=== PATIENT | female | born 1980 | race Caucasian/White ===

== ENCOUNTER 2020-05-28 15:54 | Outpatient (REF) | payer MEDICAID, SELFPAY ==
[2020-05-28 15:55] LABS: ALT 26 U/L (14-59); AST 11 U/L (15-37); Alkaline Phosphatase 61 U/L (46-116); Anion Gap 11.8 mmol/L (3-11); BUN 12 mg/dL (7-18); CO2 26.2 mmol/L (21.0-32.0); CREATININE 0.7 mg/dL (0.55-1.02); Calcium 9.4 mg/dL (8.5-10.1); Calculated LDL 95 mg/dL (<100); Chloride 98 mmol/L (98-107); Cholesterol 184 mg/dL (<200); Glucose 329 mg/dL (74-106); HDL Cholesterol 33 mg/dL (40-60); Potassium 3.6 mmol/L (3.5-5.1); Sodium 136 mmol/L (136-145); Total Protein 7.4 g/dL (6.4-8.2); Triglyceride 283 mg/dL (<150)
== END 2020-05-28 15:55 | disposition home or self-care (01) ==
LOC: NCHCN 15:54
PROVIDERS: Visit Provider Nurse Practitioner Family
DX: I10 Essential (primary) hypertension (principal); E11.9 Type 2 diabetes mellitus without complications; F32.9 Major depressive disorder, single episode, unspecified
CPT/HCPCS: 80053; 80061

== ENCOUNTER 2021-07-25 23:26 | Outpatient (CLI) | payer MEDICAID, SELFPAY ==
[2021-07-25 17:28] LABS: CREATININE 0.8 mg/dL (0.55-1.02)
== END 2021-07-25 23:27 | disposition home or self-care (01) ==
LOC: LBO 23:27
PROVIDERS: Visit Provider Nurse Practitioner Family
DX: U07.1 COVID-19 (principal)
CPT/HCPCS: 36415; 82565

== ENCOUNTER 2021-12-30 19:15 | Outpatient (REF) | payer MEDICAID, SELFPAY ==
[2021-12-30 19:12] LABS: HCT 41.9 % (36.0-46.0); HGB 14.8 g/dL (11.2-15.7); MCH 31.2 pg (27.0-33.0); MCHC 35.3 % (32.0-36.0); MCV 88 fL (80-95); MPV 9.5 fL (8.0-11.0); Platelet Count 262 10^3/uL (130-400); RBC 4.75 10^6/uL (3.93-5.22); RDW 11.9 % (11.7-14.6); RDW-SD 37.5 fL; WBC 11.51 10^3/uL (4.4-10.8)
[2021-12-30 19:46] LABS: ALT 22 U/L (14-59); AST 10 U/L (15-37); Albumin 3.7 g/dL (3.4-5.0); Alkaline Phosphatase 57 U/L (46-116); Anion Gap 9.8 mmol/L (3-11); BUN 14 mg/dL (7-18); Bilirubin, Total 0.5 mg/dL (0.2-1.0); CO2 28.2 mmol/L (21.0-32.0); CREATININE 0.9 mg/dL (0.55-1.02); Calcium 9.6 mg/dL (8.5-10.1); Chloride 96 mmol/L (98-107); Cholesterol 202 mg/dL (<200); Estimated GFR 81.35 (mL/min/1.73m2); Glucose 383 mg/dL (74-106); HDL Cholesterol 34 mg/dL (40-60); Potassium 3.8 mmol/L (3.5-5.1); Sodium 134 mmol/L (136-145); TSH (W/Ref FT4) 2.25 uIU/mL (0.36-3.74); Total Protein 7.3 g/dL (6.4-8.2); Triglyceride 708 mg/dL (<150)
[2021-12-30 20:00] LABS: LDL CHOLESTEROL 89 mg/dL (<100)
[2022-01-01 05:15] LABS: Vitamin D 25 Total 28.1 ng/mL (30-100)
== END 2021-12-30 19:16 | disposition home or self-care (01) ==
LOC: NCHCN 19:15
PROVIDERS: PCP Nurse Practitioner Family; Visit Provider Nurse Practitioner Family
DX: Z00.00 Encounter for general adult medical examination without abnormal findings (principal)
CPT/HCPCS: 80053; 80061; 82306; 83721; 85027; 84443

== ENCOUNTER → 2022-01-08 02:42 | Outpatient (CLI) | payer MEDICAID, SELFPAY ==
--- NOTE | 2022-01-08 12:00 | DI.MAMMO_ITS ---
Exam(s) MAMMO SCREENING EXAM: MAMMO SCREENING CLINICAL HISTORY: SCREENING, Z12.39, FAMILY H/O BREAST CA, Z80.3 TECHNIQUE: Mammograms were interpreted according to the usual protocol including computer analysis w [employer] CAD system, tomosynthesis and C-view imaging. COMPARISON: No exams were available for comparison. Baseline examination. FINDINGS: The breasts are composed of scattered fibroglandular densities, Breast Density category B. No suspicious masses or suspicious microcalcifications are seen. No skin thickening or abnormal axillary lymph nodes are seen. IMPRESSION: BI-RADS Category 1, Negative mammogram Yearly screening mammography is recommended. Breast Density - Category B, scattered fibroglandular densities. A negative radiographic report should not delay biopsy if a dominant or clinically suspicious mass is present. Up to ten percent of cancers are not identified on mammography. A negative report may reinforce clinical impression. Adenosis and dense breasts may obscure an underlying neoplasm. False positive reports average 6 to 10%. Patient will receive a letter notifying them of these results.
== END ==
PROVIDERS: PCP Nurse Practitioner Family; Visit Provider Nurse Practitioner Family
DX: Z12.31 Encounter for screening mammogram for malignant neoplasm of breast (principal)
CPT/HCPCS: 77063; 77067

== ENCOUNTER 2022-01-29 14:48 | Outpatient (REF) | payer MEDICAID, SELFPAY ==
[2022-01-29 15:13] LABS: Calculated LDL 86 mg/dL (<100); Cholesterol 196 mg/dL (<200); HDL Cholesterol 38 mg/dL (40-60); Triglyceride 360 mg/dL (<150)
== END 2022-01-29 14:49 | disposition home or self-care (01) ==
LOC: NCHCN 14:48
PROVIDERS: PCP Nurse Practitioner Family; Visit Provider Nurse Practitioner Family
DX: E78.1 Pure hyperglyceridemia (principal)
CPT/HCPCS: 80061

== ENCOUNTER 2022-04-15 15:04 | Outpatient (REF) | payer MEDICAID, SELFPAY ==
[2022-04-15 19:09] LABS: Anion Gap 10.8 mmol/L (3-11); BUN 11 mg/dL (7-18); CO2 28.2 mmol/L (21.0-32.0); CREATININE 0.8 mg/dL (0.55-1.02); Calcium 9.6 mg/dL (8.5-10.1); Chloride 98 mmol/L (98-107); Estimated GFR 93.12 (mL/min/1.73m2); Glucose 282 mg/dL (74-106); Potassium 3.9 mmol/L (3.5-5.1); Sodium 137 mmol/L (136-145)
[2022-04-15 19:47] LABS: Vitamin D 25 Total 30.3 ng/mL (30-100)
== END 2022-04-15 15:05 | disposition home or self-care (01) ==
LOC: NCHCN 15:04
PROVIDERS: PCP Nurse Practitioner Family; Visit Provider Nurse Practitioner Family
DX: E11.9 Type 2 diabetes mellitus without complications (principal); I10 Essential (primary) hypertension; E55.9 Vitamin D deficiency, unspecified
CPT/HCPCS: 80048; 82306

== ENCOUNTER 2022-09-11 12:31 | Outpatient (REF) | payer MEDICAID, SELFPAY ==
--- NOTE | 2022-09-11 11:30 | PAPFT_PTH ---
PATIENT: Sarah Moncada LOC: [facility]#:[id number] AGE/SX: 42/F ROOM: RE09/11/[address]: ROSALVA VALDEZ : 1980 BED: DIS: 09/11/2022 SPEC #: [id number] RECD: 09/15/22 17:07 STATUS: CARLOS REQ #: [id number] JEFF: 09/11/22 11:[address]: Rosalva Valdez DEPT: [facility] Cytology RECD BY: Shirley Hadley ENTERED: 09/15/22 17:08 SP TYPE: PAPFT OTHR DR: Trice Holman Tissues: 1 - CX/ENDOCX FOR PAP SMEARS Procedures: PAP THIN PREP/[facility] Screening HPV DNA PROBE Comments: [id number] (HPV 16 & 18/45) (CHLAMYDIA/GC)
[2022-09-11 19:53] LABS: Vitamin D 25 Total 35.8 ng/mL (30-100)
[2022-09-14 09:55] LABS: HIV-1/2 Ag & Ab Screen Negative (Negative)
[2022-09-14 10:14] LABS: Hepatitis C Ab w Rflx HCV PCR Negative (Negative); Syphilis Serology (RPR) Negative (Negative)
[2022-09-16 14:36] LABS: Chlamydia Result Negative (Negative); GC Result Negative (Negative)
== END 2022-09-11 12:32 | disposition home or self-care (01) ==
LOC: NCHCN 12:31
PROVIDERS: PCP Nurse Practitioner Family; Visit Provider Nurse Practitioner Family
DX: Z11.3 Encounter for screening for infections with a predominantly sexual mode of transmission (principal); Z11.4 Encounter for screening for human immunodeficiency virus [HIV]; Z12.4 Encounter for screening for malignant neoplasm of cervix; Z11.59 Encounter for screening for other viral diseases; E55.9 Vitamin D deficiency, unspecified; Z11.51 Encounter for screening for human papillomavirus (HPV); R87.810 Cervical high risk human papillomavirus (HPV) DNA test positive
CPT/HCPCS: 82306; 86803; 87389; 87491; 87591; 88142; 86592; 87624

== ENCOUNTER 2023-01-29 15:13 | Outpatient (REF) | payer MEDICAID, SELFPAY ==
--- NOTE | 2023-01-29 11:10 | CER_PTH ---
PATIENT: Sarah Moncada LOC: [facility] U#:[id number] AGE/SX: 42/F ROOM: RE01/29/[address]: Jennie Villegas MD : 1980 BED: DIS: 01/29/2023 SPEC #: [id number] RECD: 01/29/23 18:01 STATUS: CARLOS REArabella #: [id number] JEFF: 01/29/23 11:[address]: Jennie Villegas DEPT: Surgical Specimen RECD BY: Shirley Hadley ENTERED: 01/29/23 18:02 SP TYPE: CER OTHR DR: Trice Holman Tissues: 1 - CERVICAL BIOPSY Procedures: GROSS AND MICRO LEVEL 4 IMMUNOPEROXIDASE STAIN Comments: [id number]
== END 2023-01-29 15:14 | disposition home or self-care (01) ==
LOC: LBN 15:13
PROVIDERS: PCP Nurse Practitioner Family; Visit Provider Obstetrics & Gynecology
DX: Z12.4 Encounter for screening for malignant neoplasm of cervix (principal); C44.92 Squamous cell carcinoma of skin, unspecified
CPT/HCPCS: 88305; 88361

== ENCOUNTER 2023-04-23 15:17 | Outpatient (REF) | payer MEDICAID, SELFPAY ==
[2023-04-23 16:36] LABS: ALT 15 U/L (14-59); AST 10 U/L (15-37); Albumin 3.6 g/dL (3.4-5.0); Alkaline Phosphatase 51 U/L (46-116); Anion Gap 7.1 mmol/L (3-11); BUN 9 mg/dL (7-18); Bilirubin, Total 0.5 mg/dL (0.2-1.0); CO2 26.9 mmol/L (21.0-32.0); CREATININE 0.9 mg/dL (0.55-1.02); Calcium 9.4 mg/dL (8.5-10.1); Calculated LDL 122 mg/dL (<100); Chloride 103 mmol/L (98-107); Cholesterol 203 mg/dL (<200); Estimated GFR 80.34 (mL/min/1.73m2); Glucose 246 mg/dL (74-106); HDL Cholesterol 44 mg/dL (40-60); Magnesium 1.9 mg/dL (1.8-2.4); Potassium 4.2 mmol/L (3.5-5.1); Sodium 137 mmol/L (136-145); Total Protein 7.3 g/dL (6.4-8.2); Triglyceride 187 mg/dL (<150)
[2023-04-23 17:02] LABS: Hemoglobin A1C 7.2 % (<5.7)
== END 2023-04-23 15:18 | disposition home or self-care (01) ==
LOC: NCHCN 15:17
PROVIDERS: PCP Nurse Practitioner Family; Visit Provider Nurse Practitioner Family
DX: E11.9 Type 2 diabetes mellitus without complications (principal); R79.89 Other specified abnormal findings of blood chemistry; S46.111A Strain of muscle, fascia and tendon of long head of biceps, right arm, initial encounter; S46.112A Strain of muscle, fascia and tendon of long head of biceps, left arm, initial encounter
CPT/HCPCS: 80053; 80061; 83036; 83735

== ENCOUNTER → 2023-07-07 02:38 | Outpatient (CLI) | payer MEDICAID, SELFPAY ==
--- NOTE | 2023-07-07 10:35 | DI.MRI_ITS ---
Exam(s) MR UPPER JOINT RT WO EXAM: MR UPPER JOINT RT WO CLINICAL HISTORY: ? BICEP TENDON ISSUE OR ROTATOR CUFF TEAR,REDUCTION IN RANGE OF MOTION,R29.. TECHNIQUE: Multiplanar multisequence MRI was performed. COMPARISON: None. FINDINGS: BONES: There is no fracture or contusion pattern. JOINTS:The acromioclavicular joint is normal. The glenohumeral joint is normal. TENDONS: Supraspinatus: Unremarkable. Infraspinatus: Unremarkable. Subscapularis: Unremarkable. Teres Minor: Unremarkable. Biceps and [place]: Unremarkable. MUSCLES: Unremarkable. GLENOID LABRUM: Unremarkable on this noncontrast examination. SOFT TISSUES: Unremarkable. OTHER: Subacromial and subdeltoid bursae shows a minimal amount of fluid. Small amount of fluid is n oted in the subcoracoid bursa. . IMPRESSION: No evidence of biceps tendon tear or rotator cuff tear. DATA REPOSITORY:
--- NOTE | 2023-07-07 11:12 | DI.MRI_ITS ---
Exam(s) MR UPPER JOINT LT WO EXAM: MR UPPER JOINT LT WO CLINICAL HISTORY: ? BICEP TENDON ISSUE OR ROTATOR CUFF TEAR,REDUCTION RANGE OF MOTION,R29.898. TECHNIQUE: Multiplanar multisequence MRI was performed. COMPARISON: None. FINDINGS: BONES: There is no fracture or contusion pattern. JOINTS:The acromioclavicular joint is normal. The glenohumeral joint is normal. TENDONS: Supraspinatus: Unremarkable. Infraspinatus: Unremarkable. Subscapularis: Unremarkable. Teres Minor: Unremarkable. Biceps and [place]: Unremarkable. MUSCLES: Unremarkable. GLENOID LABRUM: Unremarkable on this noncontrast examination. SOFT TISSUES: Unremarkable. OTHER: Subacromial and subdeltoid bursae shows no significant fluid.. Small amount of fluid in subc oracoid bursa. IMPRESSION: No evidence of biceps tendon tear or other rotator cuff tear. DATA REPOSITORY:
== END ==
PROVIDERS: PCP Nurse Practitioner Family; Visit Provider Nurse Practitioner Family
DX: R29.898 Other symptoms and signs involving the musculoskeletal system (principal)
CPT/HCPCS: 73221

== ENCOUNTER → 2023-08-04 01:57 | Outpatient (CLI) | payer MEDICAID, SELFPAY ==
--- NOTE | 2023-08-04 08:18 | DI.MRI_ITS ---
Exam(s) MR CERVICAL SPINE WO EXAM: MR CERVICAL SPINE WO CLINICAL HISTORY: M79.621Pain in rt upper arm,M79.622 Pain lt upper arm; bilat weakness arms, TECHNIQUE: Multiplanar multisequence MRI of the cervical spine was performed without intravenous con trast. COMPARISON: No exams were available for comparison FINDINGS: BONES: Vertebral body heights are maintained. Alignment is normal. Bone marrow signal intensity is wi thin normal limits. Sinuses: Mucosal thickening of the maxillary sinuses, right greater than left. CERVICAL CORD: Craniovertebral junction is unremarkable. The cervical cord is normal size and signal intensity. Visualized portions of the brainstem and cerebellum are unremarkable. SOFT TISSUES: Unremarkable. C2-3: No disc herniation or bulge is identified. No evidence of neural foraminal narrowing. No signi ficant central canal stenosis. C3-4: Mild circumferential disc osteophytes. Mild neural foraminal narrowing. No significant central canal stenosis. C4-5: Prominent right sided disc osteophyte which contacts the anterior aspect of the cervical cord.. Bilateral moderate to severeneural foraminal narrowing. Mild central canal stenosis. Some CSF adilson ins posterior to the cord. C5-6: Mild broad-based disc osteophytes. Mild left neural foraminal narrowing.No evidence of neural foraminal narrowing. No significant central canal stenosis. C6-7: Mild disc osteophytes. No evidence of neural foraminal narrowing. No significant central canal stenosis. C7-T1: Mild disc osteophytes. No evidence of neural foraminal narrowing. No significant central nicho l stenosis. IMPRESSION: Multi level disc osteophytes, most prominent at C4-5 on the right which causes mild central canal joselito nosis as well as moderate to severe bilateral neural foraminal narrowing. DATA REPOSITORY:
== END ==
PROVIDERS: PCP Nurse Practitioner Family; Visit Provider Nurse Practitioner Family
DX: M79.622 Pain in left upper arm (principal); M79.621 Pain in right upper arm; M25.78 Osteophyte, vertebrae; M48.02 Spinal stenosis, cervical region; M99.71 Connective tissue and disc stenosis of intervertebral foramina of cervical region
CPT/HCPCS: 72141

== ENCOUNTER 2023-08-26 13:30 | Outpatient (CLI) | payer MEDICAID, SELFPAY ==
[2023-08-26 12:34] LABS: TSH 2.14 uIU/Ml (0.36-3.74)
== END 2023-08-26 13:31 | disposition home or self-care (01) ==
LOC: LBO 13:31
PROVIDERS: PCP Nurse Practitioner Family; Visit Provider Registered Nurse
DX: F33.1 Major depressive disorder, recurrent, moderate (principal)
CPT/HCPCS: 36415; 82306; 84443

== ENCOUNTER 2023-10-28 21:35 | Outpatient (REF) | payer MEDICAID, SELFPAY ==
[2023-10-28 16:34] LABS: Hemoglobin A1C 6.9 % (<5.7)
[2023-10-28 16:35] LABS: ALT 16 U/L (14-59); AST 8 U/L (15-37); Albumin 3.6 g/dL (3.4-5.0); Alkaline Phosphatase 66 U/L (46-116); BUN 13 mg/dL (7-18); Bilirubin, Total 0.34 mg/dL (0.2-1.0); CREATININE 0.9 mg/dL (0.55-1.02); Calcium 9.3 mg/dL (8.5-10.1); Chloride 102 mmol/L (98-107); Estimated GFR 80.34 (mL/min/1.73m2); Glucose 152 mg/dL (74-106); Potassium 4.7 mmol/L (3.5-5.1); Sodium 138 mmol/L (136-145); Total Protein 7.3 g/dL (6.4-8.2)
--- OUTSIDE RECORDS SUMMARY | 2023-10-28 21:38 | XMS_ITS | Encounter Summary ---
Author Organization [facility] [place] [address] Care Team Providers Care Fructose Loader Name Role Phone Carlos Alberto Ag MD Primary Care Provider Reason for Visit * Reason Onset Date Comments Medication Refill 11/16/2018 Encounter Details Date Type Department Care Team (Late st Contact Info) Description 11/16/2018 Refill [place] [address] Carlos Alberto Ag MD [facility] [address] [place] [address] Gastroesophageal reflux disease, esophagitis presence not specified; Essential hypertension Social History Tobacco Use Types Packs/Day Years Used Date Smoking Tobacco: Never Smokeless Tobacco: Never Alcohol Use Standard Drinks/Week Comments No 0 (1 standard drink = 0.6 oz pur e alcohol) rarely Sex and Gender Information Value Date Recorded Sex Assigned at Not on file Gender Identity Female 12/01/2018 2:55 PM EDT Sexual Orientation Not on file documented as of this encounter Plan of Treatment Not on file documented as of this encounter Visit Diagnoses Diagnosis Gastroesophageal reflux disease, esophagitis presence not specified Essential hypertension Unspecified essential hypertension documented in this encounter Care Teams Fructose Loader Relationship Specialty Start Date End Date Carlos Alberto Ag MD [facility] [address] [place] [address] PCP - General General Internal Medicine 04/26/17 10/31/19 documented as of this encounter
--- OUTSIDE RECORDS SUMMARY | 2023-10-28 21:38 | XMS_ITS | Continuity of Care Document ---
Author Organization [facility] Ambulatory Clinics Address [address] [place] [address] Care Team Providers Care Road Engineer Name Role Phone JESSY BUSH APRN Primary Care Physician Encounter [facility]BR [id number] Date(s): 09/08/23 - 09/08/23 [facility] Ambulatory Clinics [address] [place], [place] [address] Encounter Diagnosis Cervical spondylosis with radiculopathy(Discharge Diagnosis) - 09/08/23 Bilateral arm pain(Discharge Diagnosis) - 09/08/23 Pain in left arm(Discharge Diagnosis) - 09/08/23 Discharge Disposition: Home or Self Care Attending Physician: JOSE Lucas Allergies, Adverse Reactions, Alerts Substance Reaction Severity Status Seasonal Congestion Unknown Active Assessment and Plan Extracted from: Title:Office Visit Note Author:SAMI Lucas Date:09/08/23 1.??Cervical spondylosis wit h radiculopathy??M47.22 Ordered: cyclobenzaprine 5 mg oral tablet, See Instructions, PRN as needed for muscle spasm, 1 tab Oral at bedtime. May take up to TID PRN but use caution due to potential sedation., # 60 tab, 1 Refill(s), Pharmacy: [facility] ketorolac 10 mg oral tablet, 10 mg = 1 tab, Oral, QID, PRN as needed for pain, not to exceed 40 mg/day and 5 days duration for all dose forms, # 20 tab, 0 Refill(s), Pharmacy: [facility] ?? 2.??Bilateral arm pain??M79.601 Ordered: cyclobenzaprine 5 mg oral tablet, See Instructions, PRN as needed for muscle spasm, 1 tab Oral at bedtime. May take up to TID PRN but use caution due to potential sedation., # 60 tab, 1 Refill(s), Pharmacy: [facility] ketorolac 10 mg oral tablet, 10 mg = 1 tab, Oral, QID, PRN as needed for pain, not to exceed 40 mg/day and 5 days duration for all dose forms, # 20 tab, 0 Refill(s), Pharmacy: [facility] ?? The patient has been struggling with significant pain??localized to the bilateral biceps and deltoid area??particularly when she lifts her hands overhead or behind her.?? This is limiting her functioning and her family is actually helping her with bathing, grooming and dressing.?? She only recently??developed some mild discomfort in her posterior neck.?? The patient does have multilevel abnormalities in her cervical spine with most significant finding is at the C4-5 level where there is a??large right paracentral disc??osteophyte complex??causing??right lateral recess stenosis and moderate to severe bilateral neuroforaminal narrowing. ??It is very possible that this finding is contributing to her pain. ??However, her??discomfort is not in the classic dermatome pattern??of a cervical radiculopathy.?? On her physical examination she has very mild weakness of the bilateral biceps and deltoids however she does verbalize that??the strength testing causes pain so part of this weakness may be a pain response.?? We discussed options moving forward at this point.?? The patient is a diabetic so I would not recommend trialing her on oral steroids but we could trial her on a course of strong??NSAIDs for short period to see if that helps??at all with her pain.?? Given that she has??difficulty sleeping due to this pain I am also recommending trying a muscle relaxer at bedtime. ??She would like to try both of these.?? She was advised to take the ketorolac with food and to avoid other NSAIDs while taking that medication.?? We discussed that she may benefit from cervical epidural steroid injection.?I briefly mention that??surgical consideration for her problem could be considered but she is quite adamant that she would like that to be the last option and is not interested in surgery at this point.?? That is very reasonable especially because we are not completely certain the source of her discomfort. ??The patient does report that she has had MRIs of her shoulders that were unremarkable though I do not have this imaging or reports??at this time.?? I am also recommending a referral to neurology for second opinion regarding her arm discomfort.?? She??did??have a significant weight loss over the winter just before the development of the symptoms and a lot of her pain does seem to be muscular in the biceps and deltoids so I would appreciate??neurology's opinion. ??She is in agreement.?? She would like a referral to [facility] neurology in the pain clinic. ??I did encourage the patient to continue monitoring for progressive weakness??and if she does feel that??her weakness is progressing??but not due to pain she should return for??potential surgery. Plan: Ketorolac 10 mg 4 times a day for 5 days. Cyclobenzaprine 5 mg at bedtime. ??This can be increased to 3 times a day if needed??but she was cautioned regarding risk of sedation. Referral to [facility] neurology. Referral to [facility] pain clinic. ? Medications Abilify 2 mg oral tablet 2 mg = 1 tab, Oral, Daily, # 30 tab, 0 Refill(s) Start Date: 09/01/23 Status: Ordered ARIPiprazole 5 mg oral tablet 5 mg = 1 tab, Oral, Daily, # 30 tab, 0 Refill(s) Start Date: 09/01/23 Status: Ordered buPROPion 150 mg =, Oral, Daily, 0 Refill(s) Start Date: 09/08/23 Status: Ordered buPROPion 300 mg/24 hours (XL) oral tablet, extended release 300 mg = 1 tab, Oral, Daily, # 30 tab, 0 Refill(s) Start Date: 09/01/23 Status: Ordered cyclobenzaprine 5 mg oral tablet See Instructions, PRN as needed for muscle spasm, 1 tab Oral at bedtime. May take up to TID PRN butuse caution due to potential sedation., # 60 tab, 1 Refill(s), Pharmacy: [id number] Start Date: 09/08/23 Status: Ordered depo-subQ provera 104 mg/0.65 mL subcutaneous suspension 0 Refill(s) Start Date: 09/01/23 Status: Ordered escitalopram 20 mg oral tablet 20 mg = 1 tab, Oral, Daily, # 30 tab, 0 Refill(s) Start Date: 09/01/23 Status: Ordered Farxiga 5 mg oral tablet 5 mg = 1 tab, Oral, Daily, # 30 tab, 0 Refill(s) Start Date: 09/01/23 Status: Ordered FreeStyle Lite Test Strips Supply, See instructions, # 1 EA, 0 Refill(s) Start Date: 09/01/23 Status: Ordered ketorolac 10 mg oral tablet 10 mg = 1 tab, Oral, QID, PRN as needed for pain, not to exceed 40 mg/day and 5 days duration for all dose forms, # 20 tab, 0 Refill(s), Pharmacy: [facility] Start Date: 09/08/23 Status: Ordered lisinopril 10 mg oral tablet 10 mg = 1 tab, Oral, Daily, # 30 tab, 0 Refill(s) Start Date: 09/01/23 Status: Ordered metFORMIN 500 mg oral tablet, extended release 1,000 mg = 2 tab, Oral, Daily, # 30 tab, 0 Refill(s) Start Date: 09/01/23 Status: Ordered omeprazole 20 mg oral delayed release capsule 20 mg = 1 cap, Oral, Daily, # 30 cap, 0 Refill(s) Start Date: 09/01/23 Status: Ordered triamcinolone acetonide-dimethicone 0.1%-5% topical kit 1 castro, Topical, BID, apply a thin film to the affected areas, # 1 EA, 0 Refill(s) Start Date: 09/01/23 Status: Ordered Problem List Condition Confirmation Course Effective Dates Status Health Status Informant Anxiety disorder Confirmed Active Cervical spondylosis with radiculopathy Confirmed Active Chronic depression Confirmed Active Disorder of musculoskeletal system Confirmed Active Eczema Confirmed Active Essential hypertension Confirmed Active Pain in left foot Confirmed Active Gastroesophageal reflux disease without esophagitis Confirmed Active Hip pain Confirmed Active Limitation of joint movement Confirmed Active Major depression Confirmed Active Migraine Confirmed Active Mood swings Confirmed Active Obstructive sleep apnea syndrome Confirmed Active Bilateral arm pain Confirmed Active Pure hyperglyceridemia Confirmed Active RhD negative Confirmed Active Suicidal thoughts Confirmed Active Type 2 diabetes mellitus without complication Confirmed Active Vitamin D deficiency Confirmed Active Procedures Procedure Date Related Diagnosis Body Site Status section Complete d Cholecystectomy Completed Vital Signs Most recent to oldest [Reference Range]: 1 Peripheral Pulse Rate [60-100 bpm] 108 b pm *HI* (09/08/23 11:01 AM) Respiratory Rate [12-24 br/min] 20 br/mi n (09/08/23 11:01 AM) Blood Pressure [90-140/60-90 mmHg] 124/7 4mmHg (09/08/23 11:01 AM) Mean Arterial Pressure, Cuff [65-140 mmH g] 91 mmHg (09/08/23 11:01 AM) Weight 83.5 kg (09/08/23 11:01 AM) Weight Measured (lbs) 184.086 lb (09/08/23 11: AM) Weight Dosing 83.500 kg (09/08/23 11: AM) Wesley Body Weight Calculated 54.7 kg (09/08/23 11:01 AM) Height 162.56 cm (09/08/23 11:01 AM) Height/Length Measured (inches) 64 inch (09/08/23 11:01 AM) BSA Measured 1.94 m2 (09/08/23 11:01 AM) Body Mass Index 31.6 kg/m2 (09/08/23 11:01 AM) Social History Social History Type Response Tobacco Current everyday tob acco user Tobacco Use:. Sex Physician Outpatient Note * JOSE Lucas: PERFORM Event Display: Office Clinic Note Physician Authored Date: [id number] MIGDALIA GOLDSMITH Ninoska :1980 Age:43 years Sex:Female Visit Date:09/08/2023 Primary Care Physician: JESSY BUSH APRN History of Present Illness The patient presents for evaluation of her bilateral arm pain.?? She states that at the beginning of the year she noticed that it was getting difficult to put her arm spine her head due to pain in her arms.?? This started in the left arm but it has progressed to the right as well.?? She has had consistent pain affecting the bilateral bicep area. ??She states that she does not have the pain in hershoulders, her lower arms or hands. ??She did not have any neck discomfort until just recently and this is only mild.?? This affects her mid??posterior neck.?? However, the bilateral upper arm pain is significant.?? She states that??her arms do feel weak frequently as well.?? She states that??the pain is severe if she lifts her??arms overhead such as to do her hair??or wash her hair??as well as reach behind her. ??This makes getting dressed difficult so her and her daughters actually help her with bathing, grooming and??getting dressed at times.?? She states that when she has to shaveunder her arms she actually has to rest her arm up against the wall??in order to do so.?? Her arm pain increases with driving for any distance.?? She also has difficulty sleeping as she cannot find acomfortable position for her arms.?? Patient has tried taking ibuprofen and Tylenol and she did find that was somewhat useful initially but they??no longer seem to be helping.?? She was applying Carmita back and body??cream??to her arms which again was helpful initially but now is not helpful.?? She did do physical therapy including which she describes??to be cervical traction therapy that she is also doing at home with??a cervical traction collar with unfortunately no improvement.?? The patient denies any known injury to her neck or arms.?? Regards to her medical history she is being treated for hypertension as well as diabetes. ??She states she was diagnosed with diabetes after she had her??11-year-old??daughter.?? She states that??her last A1c was finally below 7% which is the first timeit has ever been this low.?? She states that over the winter she lost??quite a bit of weight going f rom 4 and 32 pounds to 184 intentionally and that is likely why her diabetes has improved.?? Additionally, the patient does mention that she gets frequent numbness and tingling affecting both her hands,??particularly the middle fingers.?? She has been struggling this for??over 10 years and actuallyunderwent bilateral carpal tunnel release and she did have some improvement in the symptoms for short period of time and then they returned to baseline and have been present ever since. ??She denies any weakness of her hands and denies any issues with dexterity in her hands. 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 She is not noticed any significant changes to her balance though she has always had some difficulty with herbalance. ??She denies any falls. ?? Review of Systems Relevant ROS discussed in HPI Physical Exam GENERAL:?General Appearance:?pleasant, age appropriate in no apparent distress.?? MUSCULOSKELETAL:?Musculoskeletal:??Cervical spine ROM mildly limited with bilateral rotation. No tenderness??over cervical spine??or bilateral AC joints. No??paraspinal muscle tenderness. NEUROLOGICAL:?Neurological:?Negative Lhermitte's.?Motor:??Strength 4+/5 bilateral bicep flexion and deltoid abduction. ??Strength 5/5 with bilateral triceps flexion, wrist extension, hand abduction, hip flexion, knee flexion and extension, ankle dorsiflexion and plantar flexion.?Reflexes:?2+ and symmetric in biceps, knees and ankles bilaterally. ??1+ bilateraltricep and brachioradialis jerks. Negative Elmer's bilaterally.? Tone: Normal ? Gait: Normal.?? The patient is able to balance on each foot independently without any difficulty. ??She is able to complete tandem walking with??only slight unsteadiness. Assessment/Plan 1.??Cervical spondylosis with radiculopathy??M47.22 Ordered: cyclobenzaprine 5 mg oral tablet, See Instructions, PRN as needed for muscle spasm, 1 tab Oral at bedtime. May take up to TID PRN but use caution due to potential sedation., # 60 tab, 1 Refill(s), Pharmacy: [facility] ketorolac 10 mg oral tablet, 10 mg = 1 tab, Oral, QID, PRN as needed for pain, not to exceed 40 mg/day and 5 days duration for all dose forms, # 20 tab, 0 Refill(s), Pharmacy: [facility] ?? 2.??Bilateral arm pain??M79.601 Ordered: cyclobenzaprine 5 mg oral tablet, See Instructions, PRN as needed for muscle spasm, 1 tab Oral at bedtime. May take up to TID PRN but use caution due to potential sedation., # 60 tab, 1 Refill(s), Pharmacy: [facility] ketorolac 10 mg oral tablet, 10 mg = 1 tab, Oral, QID, PRN as needed for pain, not to exceed 40 mg/day and 5 days duration for all dose forms, # 20 tab, 0 Refill(s), Pharmacy: [facility] ?? The patient has been struggling with significant pain??localized to the bilateral biceps and deltoid area??particularly when she lifts her hands overhead or behind her.?? This is limiting her functioning and her family is actually helping her with bathing, grooming and dressing.?? She only recently? ?developed some mild discomfort in her posterior neck.?? The patient does have multilevel abnormalities in her cervical spine with most significant finding is at the C4-5 level where there is a??large right paracentral disc??osteophyte complex??causing??right lateral recess stenosis and moderate tosevere bilateral neuroforaminal narrowing. ??It is very possible that this finding is contributing to her pain. ??However, her??discomfort is not in the classic dermatome pattern??of a cervical radiculopathy.?? On her physical examination she has very mild weakness of the bilateral biceps and deltoids however she does verbalize that??the strength testing causes pain so part of this weakness may be a pain response.?? We discussed options moving forward at this point.?? The patient is a diabetic so I would not recommend trialing her on oral steroids but we could trial her on a course of strong??NSAIDs for short period to see if that helps??at all with her pain.?? Given that she has??difficulty sleeping due to this pain I am also recommending trying a muscle relaxer at bedtime. ??She would like to try both of these.?? She was advised to take the ketorolac with food and to avoid other NSAIDs while taking that medication.?? We discussed that she may benefit from cervical epidural steroid injection.?I briefly mention that??surgical consideration for her problem could be considered but she is quite adamant that she would like that to be the last option and is not interested in surgeryat this point.?? That is very reasonable especially because we are not completely certain the source of her discomfort. ??The patient does report that she has had MRIs of her shoulders that were unremarkable though I do not have this imaging or reports??at this time.?? I am also recommending a refer ral to neurology for second opinion regarding her arm discomfort.?? She??did??have a significant weight loss over the winter just before the development of the symptoms and a lot of her pain does seem to be muscular in the biceps and deltoids so I would appreciate??neurology's opinion. ??She is in agreement.?? She would like a referral to [facility] neurology in the pain clinic. ??I did encourage the patient to continue monitoring for progressive weakness??and if she does feel that??her weakness is progressing??but not due to pain she should return for??potential surgery. Plan: Ketorolac 10 mg 4 times a day for 5 days. Cyclobenzaprine 5 mg at bedtime. ??This can be increased to 3 times a day if needed??but she was cautioned regarding risk of sedation. Referral to [facility] neurology. Referral to [facility] pain clinic. Referral Orders Referral Management, Medical Service: Neurology, Reason: Bilateral upper arm pain, potentially from cervical spine problem but looking for second opinion., Start: 09/08/23, Instructions: [facility] Referral Management, Medical Service: Pain Management, Reason: Bilateral upper arm pain likely due to cervical spine problem, C4-5., Start: 09/08/23, Instructions: [facility] to pain clinic if they are accepting new patients otherwise. [facility] Problem List/Past Medical History Ongoing Anxiety disorder Bilateral arm pain Cervical spondylosis with radiculopathy Chronic depression Disorder of musculoskeletal system Eczema Essential hypertension Gastroesophageal reflux disease without esophagitis Hip pain Limitation of joint movement Major depression Migraine Mood swings Obstructive sleep apnea syndrome Pain in left foot Pure hyperglyceridemia RhD negative Suicidal thoughts Type 2 diabetes mellitus without complication Vitamin D deficiency Historical No qualifying data Medications Abilify 2 mg oral tablet, 2 mg= 1 tab, Oral, Daily ARIPiprazole 5 mg oral tablet, 5 mg= 1 tab, Oral, Daily buPROPion, 150 mg, Oral, Daily buPROPion 300 mg/24 hours (XL) oral tablet, extended release, 300 mg= 1 tab, Oral, Daily cyclobenzaprine 5 mg oral tablet, See Instructions, PRN, 1 refills depo-subQ provera 104 mg/0.65 mL subcutaneous suspension escitalopram 20 mg oral tablet, 20 mg= 1 tab, Oral, Daily Farxiga 5 mg oral tablet, 5 mg= 1 tab, Oral, Daily FreeStyle Lite Test Strips, See instructions ketorolac 10 mg oral tablet, 10 mg= 1 tab, Oral, QID, PRN lisinopril 10 mg oral tablet, 10 mg= 1 tab, Oral, Daily metFORMIN 500 mg oral tablet, extended release, 1000 mg= 2 tab, Oral, Daily omeprazole 20 mg oral delayed release capsule, 20 mg= 1 cap, Oral, Daily triamcinolone acetonide-dimethicone 0.1%-5% topical kit, 1 castro, Topical, BID Allergies Seasonal??(Congestion) Diagnostic Results Diagnostic Study Interpretation: MRI of the cervical spine was reviewed with the patient.?? There is straightening of the cervical lordosis.?? There is a mild anterolisthesis of C2 over C3.?? At C3-4 there is a large osteophyte off of the posterior vertebral body of C3, bilateral uncovertebral spurring and mild left facet hypertrophy causing thecal sac mentation and mild central stenosis as well as mild bilateral neuroforaminal narrowing.?? At C4-5 there is a large right paracentral posterior disc osteophyte complex and left uncovertebral spurring causing right lateral recess stenosis and mild central stenosis as well as bilateral neuroforaminal narrowing that is moderate to severe.?? At C5-6 there is a posterior disc osteo phyte complex with mild bilateral facet hypertrophy causing thecal sac mentation and mild central stenosis and mild bilateral neuroforaminal narrowing.?? At the C6-7 and C7-T1 levels there appears mc some artifact with the axial images and they do not seem to match up well with the T2 sagittal images but there appears to potentially be mild posterior disc osteophyte complexes causing thecal sac indentation and potentially mild contact of the cervical spinal cord but no significant neuroforaminal narrowing. Electronically Signed on 09/08/2023 10:21 EDT Katharine Solano APRN-ASSISTANT PROFESSOR [employer]CHNOLOGY Patient Care team information Care Team Personnel Name: JESSY BUSH APRN Position: No Access Member Role: Primary Care Physician Address: Address: [address] Care Team Related Persons Name: JUDITH ROSAS Address: Home [address]
--- OUTSIDE RECORDS SUMMARY | 2023-10-28 21:38 | XMS_ITS | Encounter Summary ---
Author Organization [facility] [place] [address] Care Team Providers Care Automatic Coin Machine Mechanic Name Role Phone Carlos Alberto Ag MD Primary Care Provider Reason for Visit * Reason Onset Date Comments Other 08/28/2019 Encounter Details Date Type Department Care Team (Late st Contact Info) Description 08/28/2019 Telephone Internal Medicine at [facility] [place] [phone] Carmen Vaca [facility] [place] [address] Other Social History Tobacco Use Types Packs/Day Years Used Date Smoking Tobacco: Some Days Smokeless Tobacco: Never Comments:4 to 5 cigarettes a week Alcohol Use Standard Drinks/Week Comments No 0 (1 standard drink = 0.6 oz pur e alcohol) rarely Sex and Gender Information Value Date Recorded Sex Assigned at Not on file Gender Identity Female 12/01/2018 2:55 PM EDT Sexual Orientation Not on file documented as of this encounter Miscellaneous Notes * Telephone Encounter - Carmen Vaca [facility] - 08/28/2019 1:30 PM EDT Primary Care & Psychiatry Collaborative Care Collaborative Care depression treatment plan review, see Problem List for detailed assessment and plan. Spoke with Sarah, treatment plan reviewed. Sarah reports that she is switching meds and that she is noticing improvements such as not sleeping all day, beting out doing things with the kids, and her (suicidal thoughts) are not as bad and reports having no thoughts today. Patient does report thinking about suicide for the last 3-4 years but that she has never reached out and asked for help before. She is not going to act on thoughts because she cannot do that to mykids. She lives alone with two girls 7 and 13 years of age. They have two different fathers. She reports that her mother is my biggest stressor and she does not speak with her right now. She staysin contact through her stepfather. Patient is aware of the [facility] number and how to get help if needed. Patient declined prior hospitalizations or suicide attempts. She does have a lethal plan but is marion to stay safe. Patient is hopeful today stating that her symptoms are getting better and sheis motivated to stay the course and stay connected. She is open to meeting with Dr. Sanchez for an evaluation. 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 Patient is currently out of work but is planning to go back when she has stabilized her symptoms. Agreeable to continued outreach every 2-4 weeks over next few months to review symptoms, medications, side effects, safety plan and f/u on scheduling any recommended appointments or referrals. Next review due week of 09/11/19. PHQ-9 QUESTIONNAIRE SCORE ONLY (AMB) 12/01/2018 12/01/2018 03/01/2019 08/28/2019 PHQ - 9 Score (Patient) 24 (Severe Depression) 24 (Severe Depression) 24 (Severe Depression) 24 (Severe Depression) Some recent data might be hidden DENA-7 Questionnaire Score Only 12/01/2018 12/01/2018 03/01/2019 08/28/2019 DENA-7 Score (Patient) - - - 15 (Severe Anxiety) DENA-7 Score (Patient) 20 (Severe Anxiety) 20 (Severe Anxiety) 20 (Severe Anxiety) - DENA-7 Score (Clinic) - - - - Collaborative Care outreach/care plan reviewed: Depression (Range 0-27) PHQ9 Start date: 08/28/19 24 09/11/19 Next f/u due week of 09/11/19 End date: [ x ] decreased / improving [ ] increased or not improving Depression symptom management plan: Medication: Managed by [X ] PCP Carlos Alberto Ag MD [ ] Psychiatrist Medications 08/21/19 0114 Medication Sig Taking? omeprazole (PriLOSEC) 20 mg Capsule, Delayed Release(E.C.) Take 1 capsule by mouth daily. FLUoxetine (PROzac) 20 mg Tablet Take 1-2 tablets by mouth daily. Take 20 mg daily for 1 week. After 1 week take 40 mg daily loratadine (Claritin) 10 mg Tablet Take 1 tablet by mouth daily. lisinopriL (Prinivil;Zestril) 10 mg Tablet Take 1 tablet by mouth daily. venlafaxine XR (Effexor-XR) 75 mg Capsule, Sust. Release 24 hr Take 1 capsule by mouth daily. metFORMIN XR (Glucophage XR) 500 mg Tablet Sustained Release 24 hr Take 1 tablet by mouth 2 times daily. Please call to schedule an appt: [phone] venlafaxine (EFFEXOR-XR) 150 mg Capsule, Sust. Release 24 hr Take 1 capsule by mouth daily. medroxyPROGESTERone (DEPO-SUBQ PROVERA 104) 104 mg/0.65 mL Syringe Inject 0.65 mLs subcutaneously Q3 Months. amitriptyline (ELAVIL) 10 mg Tablet Take 1 tablet by mouth nightly. Patient not taking: Reported on 08/21/2019 benzonatate (TESSALON) 200 mg Capsule Take 1 capsule by mouth 3 times daily as needed for Cough. Patient not taking: Reported on 08/21/2019 APPLE CIDER VINEGAR ORAL Take 1 each by mouth daily. Syringe with Needle, Safety (EASY TOUCH FLIPLOCK SYRINGE) 1 mL 25 gauge x 1 Syringe For use with depo provera IM injections medroxyPROGESTERone (DEPO-PROVERA) 150 mg/mL Suspension Inject 1 mL into the muscle Q 3 Months. MULTI-VITAMIN ORAL Take by mouth daily. Concerns, Side effects: Reported a sore throat but was not sure if that was a side-effect. Nothing else reported. Therapist: Declined. Psychiatrist: Referral to Dr. Sanchez. .PCIMPACT Pt instructions: expect clinician contact in 2 weeks Safety Planning If you think you might act on thoughts of harming yourself or someone else, we strongly urge you toseek immediate medical attention, call 911, Go to your local emergency room or Call the National Suicide Prevention Lifeline at (TALK) or [facility] Psychiatry [phone] Carmen Vaca [facility] Behavioral Health Clinician (BHC) Primary Care & Psychiatry Collaborative Care [address] [phone] [facility] [phone] Pager [phone] documented in this encounter Plan of Treatment Not on file documented as of this encounter Visit Diagnoses Not on filedocumented in this encounter Care Teams Automatic Coin Machine Mechanic Relationship Specialty Start Date End Date Carlos Alberto Ag MD [facility] [address] PCP - General General Internal Medicine 04/26/17 10/31/19 documented as of this encounter
--- OUTSIDE RECORDS SUMMARY | 2023-10-28 21:38 | XMS_ITS | Encounter Summary ---
Author Organization [facility] [place] [address] Care Team Providers Care Payroll Accounting Manager Name Role Phone Carlos Alberto Ag MD Primary Care Provider Reason for Visit * Reason Comments Medication Refill Encounter Details Date Type Department Care Team (Late st Contact Info) Description 01/29/2019 [place] [address] Carlos Alberto Ag MD [facility] [place] [address] Uncontrolled type 2 diabetes mellitus without complication, without long-term current use of insulin Social History Tobacco Use Types Packs/Day Years [...] as of this encounter Visit Diagnoses Diagnosis Uncontrolled type 2 diabetes mellitus without complication, without long-term current use of insulin documented in this encounter Care Teams Payroll Accounting Manager Relationship Specialty Start Date End Date Carlos Alberto Ag MD [facility] [place] [address] PCP - General General Internal Medicine 04/26/17 10/31/19 documented as of this encounter
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
--- OUTSIDE RECORDS SUMMARY | 2023-10-28 21:38 | XMS_ITS | Encounter Summary ---
Author Organization [facility] [place] [address] Care Team Providers Care Grinder And Plater Name Role Phone Carlos Alberto Ag MD Primary Care Provider Encounter Details Date Type Department Care Team (Late st Contact Info) Description 10/27/2018 Telephone [place] [phone] Nela Haines Social History Tobacco Use Types Packs/Day Years [...] on filedocumented in this encounter Care Teams Grinder And Plater Relationship Specialty Start Date End Date Carlos Alberto Ag MD [facility] [place] [address] PCP - General General Internal Medicine 04/26/17 10/31/19 documented as of this encounter
--- OUTSIDE RECORDS SUMMARY | 2023-10-28 21:38 | XMS_ITS | Encounter Summary ---
Author Organization [facility] [place] [address] Care Team Providers Care Director Validation Name Role Phone Carlos Alberto Ag MD Primary Care Provider Reason for Visit * Reason Onset Date Comments Medication Refill 08/15/2019 Encounter Details Date Type Department Care Team (Late st Contact Info) Description 08/15/2019 Refill [place] [address] Carlos Alberto Ag MD [facility] [address] [place] [address] Gastroesophageal reflux disease, esophagitis presence not specified; [...] hypertension documented in this encounter Care Teams Director Validation Relationship Specialty Start Date End Date Carlos Alberto Ag MD [facility] [address] [place] [address] PCP - General General Internal Medicine 04/26/17 10/31/19 documented as of this encounter
--- OUTSIDE RECORDS SUMMARY | 2023-10-28 21:38 | XMS_ITS | Encounter Summary ---
Author Organization [facility] [place] [address] Care Team Providers Care Canoe Builder Name Role Phone Carlos Alberto Ag MD Primary Care Provider Reason for Visit * Reason Onset Date Comments Medication Refill 09/21/2019 Encounter Details Date Type Department Care Team (Late st Contact Info) Description 09/21/2019 [place] [address] Carlos Alberto Ag MD [facility] [place] [address] Menstrual disorder Social History Tobacco Use Types Packs/Day Years [...] as of this encounter Visit Diagnoses Diagnosis Menstrual disorder Unspecified disorder of menstruation and other abnormal bleeding from female genital tract documented in this encounter Care Teams Canoe Builder Relationship Specialty Start Date End Date Carlos Alberto Ag MD [facility] [place] [address] PCP - General General Internal Medicine 04/26/17 10/31/19 documented as of this encounter
--- OUTSIDE RECORDS SUMMARY | 2023-10-28 21:38 | XMS_ITS | Continuity of Care Document ---
Author Organization [facility] Address [address] [place] [address] Care Team Providers Care Ui Programmer Name Role Phone JESSY BUSH APRN Primary Care Physician Encounter [facility] NBR [id number] Date(s): 08/09/23 - 08/09/23 [facility] [address] [place] [address]- [place] Patient Care team information Care Team Personnel Name: JESSY BUSH APRN Position: No Access Member Role: Primary Care Physician Address: Address: [address] [place] [address]-
--- OUTSIDE RECORDS SUMMARY | 2023-10-28 21:38 | XMS_ITS | Encounter Summary ---
Author Organization [facility] [place] [address] Care Team Providers Care Child Health Associate Name Role Phone Carlos Alberto Ag MD Primary Care Provider Reason for Visit * Reason Onset Date Comments Medication Refill 09/09/2019 Encounter Details Date Type Department Care Team (Late st Contact Info) Description 09/09/2019 [place] [address] Carlos Alberto Ag MD [facility] [address] [place] [address] Uncontrolled type 2 diabetes mellitus without complication, [...] insulin documented in this encounter Care Teams Child Health Associate Relationship Specialty Start Date End Date Carlos Alberto Ag MD [facility] [address] [place] [address] PCP - General General Internal Medicine 04/26/17 10/31/19 documented as of this encounter
--- OUTSIDE RECORDS SUMMARY | 2023-10-28 21:38 | XMS_ITS | Encounter Summary ---
Author Organization [facility] Address [facility] [place] [address] Care Team Providers Care National Opelint Analyst Name Role Phone Rosemary Howe MD Primary Care Provider [phone] Encounter Details Date Type Department Care Team (Late st Contact Info) Description 09/15/2019 Telephone [place] [phone] Ofe Craig Social History Tobacco Use Types Packs/Day Years [...] encounter Miscellaneous Notes * Telephone Encounter - Ofe Craig - 09/15/2019 10:15 AM EDT Called pt to schedule gia Sanchez, left message, sent letter documented in this encounter Plan of Treatment Not on file documented as of this encounter Visit Diagnoses Not on filedocumented in this encounter Care Teams National Opelint Analyst Relationship Specialty Start Date End Date Rosemary Howe MD [facility] [address] [place] [address] PCP - General General Internal Medicine 11/01/1908/21 documented as of this encounter
--- OUTSIDE RECORDS SUMMARY | 2023-10-28 21:38 | XMS_ITS | Encounter Summary ---
Author Organization [facility] [place] [address] Care Team Providers Care Marketing Content Coordinator Name Role Phone Carlos Alberto Ag MD Primary Care Provider Reason for Visit * Reason Comments Medication Refill Encounter Details Date Type Department Care Team (Late st Contact Info) Description 02/27/2018 [place] [address] Malgorzata Pappas, [employer]IV[employer]AN[employer] CONSULTANT [facility] GENER[facility] [place] [address] Depression, unspecified depression type Social History Tobacco Use Types Packs/Day Years [...] as of this encounter Visit Diagnoses Diagnosis Depression, unspecified depression type documented in this encounter Care Teams Marketing Content Coordinator Relationship Specialty Start Date End Date Carlos Alberto Ag MD [facility] [address] [place] [address] PCP - General General Internal Medicine 04/26/17 10/31/19 documented as of this encounter
--- OUTSIDE RECORDS SUMMARY | 2023-10-28 21:38 | XMS_ITS | Encounter Summary ---
Author Organization [facility] [place] [address] Care Team Providers Care Velvet Steamer Name Role Phone Carlos Alberto Ag MD Primary Care Provider Reason for Visit * Reason Onset Date Comments Other 09/06/2019 Encounter Details Date Type Department Care Team ([facility] st Contact Info) Description 09/06/2019 Telephone Internal Medicine at [facility] [place] [address] Carmen Vaca, [facility] [place] [address] Other Social History Tobacco Use Types Packs/Day [...] Notes * Telephone Encounter - Carmen Vaca [facility] - 09/06/2019 9:46 AM EDT Primary Care & Psychiatry Collaborative Care Tried to call both listed phone numbers to follow up on IMPACT and referral to Dr. Sanchez. Left .Followed up with my message with attached questionnaires. Carmen Vaca M.S., [facility] Behavioral Health Clinician (C) Primary Care & Psychiatry Collaborative Care [facility] Direct # [phone] Clinic#: [phone] Pager [phone] documented in this encounter Plan of Treatment Not on file documented as of this encounter Visit Diagnoses Not on filedocumented in this encounter Care Teams Velvet Steamer Relationship Specialty Start Date End Date Carlos Alberto Ag MD [facility] [place] [address] PCP - General General Internal Medicine 04/26/17 10/31/19 documented as of this encounter
--- OUTSIDE RECORDS SUMMARY | 2023-10-28 21:38 | XMS_ITS | Encounter Summary ---
Author Organization [facility] [place] [address] Care Team Providers Care Manager Underwriting Name Role Phone Carlos Alberto Ag MD Primary Care Provider Reason for Visit * Reason Onset Date Comments Other 09/12/2019 Encounter Details Date Type Department Care Team (Late st Contact Info) Description 09/12/2019 Telephone Internal Medicine at [facility] [place] [phone] [address]en V[place] [address] Other Social History Tobacco Use Types Packs/Day [...] Notes * [facility] - [facility]12[facility] 12:54 PM EDT Primary Care & Psychiatry Collaborative Care Called to follow up on IMPACT, mood, referral to Dr. Sanchez, safety concerns. Left and my message. Carmen Vaca M.S., [facility] Behavioral Health Clinician (C) Primary Care & Psychiatry Collaborative Care [facility] Direct # [phone] Clinic#: [phone] Pager [phone] documented in this encounter Plan of Treatment Not on file documented as of this encounter Visit Diagnoses Not on filedocumented in this encounter Care Teams Manager Underwriting Relationship Specialty Start Date End Date Carlos Alberto Ag MD [facility] [place] [address] PCP - General General Internal Medicine 04/26/17 10/31/19 documented as of this encounter
--- OUTSIDE RECORDS SUMMARY | 2023-10-28 21:38 | XMS_ITS | Encounter Summary ---
Author Organization [facility] [place] [address] Care Team Providers Care Pile Trimmer Name Role Phone Carlos Alberto Ag MD Primary Care Provider Reason for Visit * Reason Comments Medication Refill Encounter Details Date Type Department Care Team (Late st Contact Info) Description 02/20/2019 [place] [address] Carlos Alberto Ag MD [facility] [address] [place] [address] Gastroesophageal reflux disease, esophagitis presence not specified Social History Tobacco Use Types Packs/Day Years [...] Gastroesophageal reflux disease, esophagitis presence not specified documented in this encounter Care Teams Pile Trimmer Relationship Specialty Start Date End Date Carlos Alberto Ag MD [facility] [address] [place] [address] PCP - General General Internal Medicine 04/26/17 10/31/19 documented as of this encounter
--- OUTSIDE RECORDS SUMMARY | 2023-10-28 21:38 | XMS_ITS | Encounter Summary ---
Author Organization [facility] [place] [address] Care Team Providers Care Cancer Center Director Name Role Phone Carlos Alberto Ag MD Primary Care Provider Reason for Referral * Consultation (Routine) - Closed Specialty Diagnoses / Procedures Referred By Jay flores Referred To Contact Internal Medicine Diagnoses Severe episode of recurrent major depressive disorder, without psychotic features Carmen Vaca [facility] [place] [address] Gail Sanchez MD [facility] [place] [address] Referral ID Status Reason Start Date Expiration Date V isits Requested Visits Authorized [id number] Closed Specialty Service Requested 08/28/2019 08/27/2020 1 1 Encounter Details Date Type Department Care Team (Late st Contact Info) Description 08/28/2019 Orders Only Internal Medicine at [facility] [place] [address] Carmen Vaca [facility] [place] [address] Severe episode of recurrent major depressive disorder, without psychotic features Social History Tobacco Use Types Packs/Day Years [...] as of this encounter Plan of Treatment Scheduled Referrals Name Type Priority Associated Diagnoses Order Schedule Referral to Collaborative Care Psychiatrist (Primary Care Only) Outpatient Referral Routine Severe episode of recurrent major depressive disorder, without psychotic features Ordered: 08/28/2019 documented as of this encounter Visit Diagnoses Diagnosis Severe episode of recurrent major depressive disorder, without psychotic features documented in this encounter Care Teams Cancer Center Director Relationship Specialty Start Date End Date Carlos Alberto Ag MD [facility] [place] [address] PCP - General General Internal Medicine 04/26/17 10/31/19 documented as of this encounter
--- OUTSIDE RECORDS SUMMARY | 2023-10-28 21:38 | XMS_ITS | Encounter Summary ---
Author Organization [facility] [place] [address] Care Team Providers Care Physical Education Professor Name Role Phone Carlos Alberto Ag MD Primary Care Provider Encounter Details Date Type Department Care Team (Late st Contact Info) Description 03/30/2019 Orders [place] [address] Carlos Alberto Ag MD [facility] [place] [address] Essential hypertension; Uncontrolled type 2 diabetes mellitus without complication, without long-term current use of insulin; Menstrual disorder Social History Tobacco Use Types [...] as of this encounter Visit Diagnoses Diagnosis Essential hypertension Unspecified essential hypertension Uncontrolled type 2 diabetes mellitus without complication, without long-term current use of insulin Menstrual disorder Unspecified disorder of menstruation and other abnormal bleeding from female genital tract documented in this encounter Care Teams Physical Education Professor Relationship Specialty Start Date End Date Carlos Alberto Ag MD [facility] [place] [address] PCP - General General Internal Medicine 04/26/17 10/31/19 documented as of this encounter
--- OUTSIDE RECORDS SUMMARY | 2023-10-28 21:38 | XMS_ITS | Encounter Summary ---
Author Organization [facility] [place] [address] Care Team Providers Care Rotary Drill Operator Name Role Phone Carlos Alberto Ag MD Primary Care Provider Reason for Visit * Reason Onset Date Comments Other 08/22/2019 Encounter Details Date Type Department Care Team ([facility] st Contact Info) Description 08/22/2019 Telephone Internal Medicine at [facility] [place] [phone] Carmen Vaca, [facility] [place] [address] Other Social History Tobacco Use Types Packs/Day [...] Notes * Telephone Encounter - Carmen Vaca [facility] - 08/22/2019 10:54 AM EDT Primary Care & Psychiatry Collaborative Care Called to follow up on referral from Dr. Ag. [facility]. Plan to sent my message as well to connect and follow up on mental health symptoms. Carmen Vaca M.S., [facility] Behavioral Health Clinician ([facility]) Primary Care & Psychiatry Collaborative Care [facility] Direct # [phone] Clinic#: [phone] Pager [phone] documented in this encounter Plan of Treatment Not on file documented as of this encounter Visit Diagnoses Not on filedocumented in this encounter Care Teams Rotary Drill Operator Relationship Specialty Start Date End Date Carlos Alberto Ag MD [facility] [place] [address] PCP - General General Internal Medicine 04/26/17 10/31/19 documented as of this encounter
--- OUTSIDE RECORDS SUMMARY | 2023-10-28 21:38 | XMS_ITS | Encounter Summary ---
Author Organization [facility] [place] [address] Care Team Providers Care Auctioneer Art Name Role Phone Carlos Alberto Ag MD Primary Care Provider Reason for Visit * Reason Comments Medication Refill Encounter Details Date Type Department Care Team (Late st Contact Info) Description 01/14/2018 [place] [address] Carlos Alberto Ag MD [facility] [place] [address] Uncontrolled type 2 diabetes mellitus without complication, [...] insulin documented in this encounter Care Teams Auctioneer Art Relationship Specialty Start Date End Date Carlos Alberto Ag MD [facility] [place] [address] PCP - General General Internal Medicine 04/26/17 10/31/19 documented as of this encounter
--- OUTSIDE RECORDS SUMMARY | 2023-10-28 21:38 | XMS_ITS | Encounter Summary ---
Author Organization [facility] [place] [address] Care Team Providers Care Supervisor Home Economics Name Role Phone Enoch Medina MD Primary Care Provider [phone] Reason for Visit * Reason Comments Medication Refill Encounter Details Date Type Department Care Team ([facility] st Contact Info) Description 04/02/2019 [place] [address] Carlos Alberto Ag MD [facility] [place] [address] Menstrual disorder Social History Tobacco Use Types [...] tract documented in this encounter Care Teams Supervisor Home Economics Relationship Specialty Start Date End Date Enoch Medina MD [facility] [address] [place] [address] PCP - General Family Medicine 08/22/20 06/03/21 documented as of this encounter
--- OUTSIDE RECORDS SUMMARY | 2023-10-28 21:38 | XMS_ITS | Encounter Summary ---
Author Organization [facility] [place] [address] Care Team Providers Care Firewall Engineer Name Role Phone Carlos Alberto Ag MD Primary Care Provider Reason for Visit * Reason Onset Date Comments Medication Refill 04/03/2019 Encounter Details Date Type Department Care Team (Late st Contact Info) Description 04/03/2019 Ref[place] [address] Gail Reilly LPN Essential hypertension; Uncontrolled type 2 diabetes mellitus [...] insulin documented in this encounter Care Teams Firewall Engineer Relationship Specialty Start Date End Date Carlos Alberto Ag MD [facility] [address] PCP - General General Internal Medicine 04/26/17 10/31/19 documented as of this encounter
--- OUTSIDE RECORDS SUMMARY | 2023-10-28 21:38 | XMS_ITS | Encounter Summary ---
Author Organization [facility] Address [facility] [place] [address] Care Team Providers Care Social Worker Health Services Name Role Phone Carlos Alberto Ag MD Primary Care Provider Encounter Details Date Type Department Care Team (Late st Contact Info) Description 08/22/2019 Telephone Internal Medicine at [facility] [place] [phone] Ofe Craig Social History Tobacco Use Types [...] * Telephone Encounter - Ofe Craig - 08/22/2019 1:23 PM EDT Called pt to schedule Return in about 1 week (around 08/28/2019). 60min thh w pcp. Left message documented in this encounter Plan of Treatment Not on file documented as of this encounter Visit Diagnoses Not on filedocumented in this encounter Care Teams Social Worker Health Services Relationship Specialty Start Date End Date Carlos Alberto Ag MD [facility] [place] [address] PCP - General General Internal Medicine 04/26/17 10/31/19 documented as of this encounter
--- OUTSIDE RECORDS SUMMARY | 2023-10-28 21:38 | XMS_ITS | Encounter Summary ---
Author Organization [facility] [place] [address] Care Team Providers Care High Risk Case Manager Name Role Phone Carlos Alberto Ag MD Primary Care Provider Encounter Details Date Type Department Care Team (Late st Contact Info) Description 08/09/2018 Orders Only Internal Medicine at [facility] [place] [address] Carlos Alberto Ag MD [facility] [address] [place] [address] Social History Tobacco Use Types Packs/Day Years [...] on filedocumented in this encounter Care Teams High Risk Case Manager Relationship Specialty Start Date End Date Carlos Alberto Ag MD [facility] [place] [address] PCP - General General Internal Medicine 04/26/17 10/31/19 documented as of this encounter
--- OUTSIDE RECORDS SUMMARY | 2023-10-28 21:38 | XMS_ITS | Encounter Summary ---
Author Organization [facility] Address [facility] [place] [address] Care Team Providers Care Tannery Worker Name Role Phone Enoch Medina MD Primary Care Provider [phone] Reason for Visit * Reason Onset Date Comments Medication Refill 03/30/2019 Encounter Details Date Type Department Care Team (Late st Contact Info) Description 03/30/2019 Refill Internal Medicine at [facility] [address] [place] [address] Carlos Alberto Ag MD [facility] GENER[facility] [place] [address] Menstrual disorder; Essential hypertension; Uncontrolled type 2 diabetes mellitus [...] other abnormal bleeding from female genital tract Essential hypertension Unspecified essential hypertension Uncontrolled type 2 diabetes mellitus without complication, without long-term current use of insulin documented in this encounter Care Teams Tannery Worker Relationship Specialty Start Date End Date Enoch Medina MD [facility] DR [address] [place] [address] PCP - General Family Medicine 08/22/20 06/03/21 documented as of this encounter
--- OUTSIDE RECORDS SUMMARY | 2023-10-28 21:38 | XMS_ITS | Encounter Summary ---
Author Organization [facility] [place] [address] Care Team Providers Care Window Systems Administrator Name Role Phone Carlos Alberto Ag MD Primary Care Provider Reason for Visit * Reason Comments Urinary Tract Infection Encounter Details Date Type Department Care Team ([facility] st Contact Info) Description 12/31/2017 1:40 PM EDT Office [place] [phone] Malgorzata Pappas APRN [facility] [place] [address] Urinary urgency; Dysuria Social History Tobacco Use Types Packs/Day Years Used Date Smoking Tobacco: Never Smokeless Tobacco: Never Alcohol Use Standard Drinks/Week Comments No 0 (1 standard drink = 0.6 oz pur e alcohol) rarely Sex and Gender Information Value Date Recorded Sex Assigned at Not on file Gender Identity Female 12/01/2018 2:55 PM EDT Sexual Orientation Not on file documented as of this encounter Last Filed Vital Signs Vital Sign Reading Time Taken Comments Blood Pressure 130/90 12/31/2017 2:09 PM EDT Pulse 114 12/31/2017 2:09 PM EDT Temperature 36.6 ??C (97.9 ??F) 12/31/2017 2:09 PM ED T Respiratory Rate 24 12/31/2017 2:09 PM EDT Oxygen Saturation 100% 12/31/2017 2:09 PM EDT Inhaled Oxygen Concentration - - Weight 102.7 kg (226 lb 6.4 oz) 12/31/2017 2:09 PM EDT Height 164 cm (5' 4.57) 12/31/2017 2:09 PM EDT Body Mass Index 38.18 12/31/2017 2:09 PM EDT documented in this encounter Patient Instructions * Patient Instructions* Malgorzata Pappas, SUPERVISOR PAINTING SHIPYARD - 12/31/2017 2:17 PM EDT Images from the original note were not included. Painful Urination (Dysuria): Care Instructions Your Care Instructions Burning pain with urination (dysuria) is a common symptom of a urinary tract infection or other urinary problems. The bladder may become inflamed. This can cause pain when the bladder fills and empties. You may also feel pain if the tube that carries urine from the bladder to the outside of the body (urethra) gets irritated or infected. Sexually transmitted infections (STIs) also may cause pain when you urinate. Sometimes the pain can be caused by things other than an infection. The urethra can be irritated bysoaps, perfumes, or foreign objects in the urethra. Kidney stones can cause pain when they pass through the urethra. The cause may be hard to find. You may need tests. Treatment for painful urination depends on the cause. Follow-up care is a lewis part of your treatment and safety. Be sure to make and go to all appointments, and call your doctor if you are having problems. It's also a good idea to know your test resultsand keep a list of the medicines you take. How can you care for yourself at home? ?? Drink extra water for the next day or two. This will help make the urine less concentrated. (If you have kidney, heart, or liver disease and have to limit fluids, talk with your doctor before you increase the amount of fluids you drink.) ?? Avoid drinks that are carbonated or have caffeine. They can irritate the bladder. ?? Urinate often. Try to empty your bladder each time. For women: ?? Urinate right after you have sex. ?? After going to the bathroom, wipe from front to back. ?? Avoid douches, bubble baths, and feminine hygiene sprays. And avoid other feminine hygiene products that have deodorants. When should you call for help? Call your doctor now or seek immediate medical care if: ? You have new symptoms, such as fever, nausea, or vomiting. ? You have new or worse symptoms of a urinary problem. For example: ? You have blood or pus in your urine. ? You have chills or body aches. ? It hurts worse to urinate. ? You have groin or belly pain. ? You have pain in your back just below your rib cage (the flank area). ??Watch closely for changes in your health, and be sure to contact your doctor if you have any problems. Where can you learn more? Visit our Site[employer]abber information library at [email or web address]. You can also view health information on [employer], your personal patient account. Log in or sign uptoday. Enter H814 in the search box to learn more about Painful Urination (Dysuria): Care Instructions. Current as of: August 28, 2016 Content Version: 11.7 ?? [id number] [employer]. Care instructions adapted under license by [facility]. If you have questions about a medical condition or this instruction, always ask your healthcare professional. [employer] disclaims any warranty or liability for your use of this information. documented in this encounter Progress Notes * Malgorzata Pappas APRN - 12/31/2017 1:40 PM EDT Subjective: Patient ID: Sarah Moncada is a 37 y.o. female. HPI Sarah is here with dysuria at times over the last 2 weeks with urgency and then not feeling like she is emptying. She tried pushing fluids and the symptoms got better but now daily so called to be seen. She has a history of frequent UTI's. Review of Systems Constitutional: Negative for activity change, appetite change, chills, fatigue and fever. Genitourinary: Positive for dysuria, frequency and urgency. Negative for flank pain, hematuria and pelvic pain. Objective: Physical Exam Constitutional: She appears well-developed and well-nourished. Abdominal: Soft. There is no CVA tenderness. Vitals reviewed. Assessment and Plan: Sarah was seen today for urinary tract infection. See encounter summary for patient instructions. Diagnoses and all orders for this visit: Urinary urgency Dysuria - Urinalysis with reflex Culture - nitrofurantoin, macrocrystal-monohydrate, (MACROBID) 100 mg Capsule; Take 1 capsule by mouth 2 times daily for 7 days. documented in this encounter Plan of Treatment Not on file documented as of this encounter Procedures Procedure Name Priority Date/Time Associated Diagnosis Comments URINALYSIS MICROSCOPIC EXAM Routine 12/31/2017 2:20 PM EDT URINALYSIS WITH REFLEX CULTURE Routine 12/31/2017 2:20 PM EDT Dysuria URINE CULTURE Routine 12/31/2017 2:20 PM EDT documented in this encounter Results * (ABNORMAL) Urine culture (12/31/2017 2:20 PM EDT) Urine Culture Greater than 100,000 cfu/ml mixed mucosal luis Note: Culture shows multiple bacterial species suggesting mucosal contamination. If symptoms continue to indicate urinary tract infection, submit a new specimen. (A) [facility] Urine specimen obtained by clean catch procedure (specimen) 12/31/2017 2:20 PM EDT 12/31/2017 3:07 PM EDT Narrative Resulting Agency Comment Spec In Lab Malgorzata Pappas APRN MICROBIOLOGY - GENER AL ORDERABLES [facility] [place] [address] * (ABNORMAL) Urinalysis Microscopic Exam (12/31/2017 2:20 PM EDT) RBC UA 3 0 - 4 /HPF [facility] WBC UA 24(H) 0 - 5 /HPF [facility] Bacteria UA Occasional (A) None /HPF [facility] Squam Epith UA 24(H) <=4 /HPF [facility] Trans Epith UA <1 <=1 /HPF [facility] Renal Epith UA <1(H) <=0 /HPF [facility] Urine specimen obtained by clean catch procedure (specimen) 12/31/2017 2:20 PM EDT 12/31/2017 2:40 PM EDT Narrative Resulting Agency Comment Spec In Lab Malgorzata Pappas APRN URINE ORDERABLES Performing Organization Address [facility] Co de Phone Number [facility] [place] [address] * (ABNORMAL) Urinalysis with reflex Culture (12/31/2017 2:20 PM EDT) Glucose UA Negative Negative mg/dL [facility] Protein UA 100(A) Negative mg/dL [facility] Bilirubin UA Negative Negative mg/dL [facility] Comment: Clinical correlation required for positive Urine Bilirubin results as false positive may occur with some drugs and drug related products. If a false positive is suspected a serum total bilirubin should be considered if clinically indicated. Urobilinogen UA Normal Normal mg/dL [facility] pH UA 5.0 5.0 - 8.0 [facility] Blood UA Negative Negative mg/dL [facility] Ketones UA 5(A) Negative mg/dL [facility] Nitrite UA Negative Negative [facility] Leukocytes UA Large(A) Negative [facility] Appearance UA Cloudy(A) Clear [facility] Spec [place] UA 1.028 1.002 - 1.030 [facility] Color UA Azeb Yellow [facility] Culture Reflexed Yes [facility] Urine specimen obtained by clean catch procedure (specimen) 12/31/2017 2:20 PM EDT 12/31/2017 2:40 PM EDT Narrative Resulting Agency Comment Spec In Lab Malgorzata Pappas APRN URINE ORDERABLES Performing Organization Address [facility]/State/ZIP Co de Phone Number [facility] [place] [address] documented in this encounter Visit Diagnoses Diagnosis Urinary urgency Urgency of urination Dysuria documented in this encounter Care Teams Window Systems Administrator Relationship Specialty Start Date End Date Carlos Alberto Ag MD [facility] [place] [address] PCP - General General Internal Medicine 04/26/17 10/31/19 documented as of this encounter
--- OUTSIDE RECORDS SUMMARY | 2023-10-28 21:38 | XMS_ITS | Encounter Summary ---
Author Organization [facility] Address [facility] [place] [address] Care Team Providers Care Oven Laborer Name Role Phone Carlos Alberto Ag MD Primary Care Provider Encounter Details Date Type Department Care Team (Late st Contact Info) Description 09/21/2017 Orders Only [place] [phone] Adan Markham MD [facility] [place] [address] Social History Tobacco Use Types Packs/Day Years [...] on filedocumented in this encounter Care Teams Oven Laborer Relationship Specialty Start Date End Date Carlos Alberto Ag MD [facility] [place] [address] PCP - General General Internal Medicine 04/26/17 10/31/19 documented as of this encounter
--- OUTSIDE RECORDS SUMMARY | 2023-10-28 21:38 | XMS_ITS | Encounter Summary ---
[place] [address] Care Team Providers Care Senior Quality Assurance Engineer Name Role Phone Carlos Alberto Ag MD Primary Care Provider Reason for Visit * Reason Onset Date Comments Prior Authorization 08/09/2018 Venlafaxine Encounter Details Date Type Department Care Team (Late st Contact Info) Description 08/09/2018 Telephone Internal Medicine at [place] [address] [place] [phone] Padma Miller CMA Prior Authorization (Venlafaxine) Social History Tobacco Use Types Packs/Day Years [...] encounter Miscellaneous Notes * Telephone Encounter - Padma Miller CMA - 08/09/2018 1:30 PM EDT Images from the original note were not included. * Telephone Encounter - Padma Miller CMA - 08/09/2018 9:55 AM EDT Medication Prior Authorization for Primary [place] [address] Request received via: Pharmacy Patient: Sarah Ninoska Moncada Patient : 1980 Subscriber Insurance: [place] [employer] Insurance Phone #: Sent via: [facility]/Fax#: [id number] Physician: Carlos Alberto Ag MD Medication Requested: venlafaxine (EFFEXOR-XR) 75 mg Capsule, Sust. Release 24 hr Frequency/Sig: TAKE 3 CAPSULES BY MOUTH DAILY Disp.: 180 Refills: 3 Currently taking: yes If yes, how lon04/2016 Diagnosis for this medication: Depression, unspecified depression type (F32.9); Anxiety (F41.9) Prior medications trialed in this patient: Medication: sertraline 25 mg Approx Dates: 6892-2898 Outcome/Adverse Reactions: inadequate response Medication: fluoxetine 10 mg Approx Dates: 2016 Outcome/Adverse Reactions: inadequate response Medication: wellbutrin Approx Dates: 2016 Outcome/Adverse Reactions: inadequate response documented in this encounter Plan of Treatment Not on file documented as of this encounter Visit Diagnoses Not on filedocumented in this encounter Care Teams Senior Quality Assurance Engineer Relationship Specialty Start Date End Date Carlos Alberto Ag MD [facility] [place] [address] PCP - General General Internal Medicine 04/26/17 10/31/19 documented as of this encounter
--- OUTSIDE RECORDS SUMMARY | 2023-10-28 21:38 | XMS_ITS | Encounter Summary ---
Author Organization [facility] [place] [address] Care Team Providers Care Equipment Oiler Name Role Phone Carlos Alberto Ag MD Primary Care Provider Reason for Visit * Reason Comments Medication Refill Encounter Details Date Type Department Care Team ([facility] st Contact Info) Description 10/14/2017 3:00 PM EDT Office [place] [phone] Malgorzata Pappas APRN [facility] [place] [address] Depression, unspecified depression type; Anxiety; Fatigue due to depression Social History Tobacco Use Types Packs/Day Years [...] Sign Reading Time Taken Comments Blood Pressure 126/66 10/14/2017 3:02 PM EDT Pulse 87 10/14/2017 3:02 PM EDT Temperature 36.6 ??C (97.9 ??F) 10/14/2017 3:02 PM ED T Respiratory Rate 16 10/14/2017 3:02 PM EDT Oxygen Saturation 100% 10/14/2017 3:02 PM EDT Inhaled Oxygen Concentration - - Weight 104.3 kg (230 lb) 10/14/2017 3:02 PM EDT Height 164.5 cm (5' 4.76) 10/14/2017 3:02 PM ED T Body Mass Index 38.55 10/14/2017 3:02 PM EDT documented in this encounter Patient Instructions * Patient Instructions* Malgorzata Pappas, DIGITIZER OPERATOR - 10/14/2017 3:24 PM EDT Images from the original note were not included. Recovering From Depression: Care Instructions Your Care Instructions Taking good care of yourself is important as you recover from depression. In time, your symptoms will fade as your treatment takes hold. Do not give up. Instead, focus your energy on getting better. Your mood will improve. It just takes some time. Focus on things that can help you feel better, such as being with friends and family, eating well, and getting enough rest. But take things slowly. Donot do too much too soon. You will begin to feel better gradually. Follow-up care is a lewis part of your treatment and safety. Be sure to make and go to all appointments, and call your doctor if you are having problems. It's also a good idea to know your test resultsand keep a list of the medicines you take. How can you care for yourself at home? Be realistic ?? If you have a large task to do, break it up into smaller steps you can handle, and just do what you can. ?? You may want to put off important decisions until your depression has lifted. If you have plans that will have a major impact on your life, such as marriage, divorce, or a job change, try to wait a bit. Talk it over with friends and loved ones who can help you look at the overall picture first. ?? Reaching out to people for help is important. Do not isolate yourself. Let your family and friends help you. Find someone you can trust and confide in, and talk to that person. ?? Be patient, and be kind to yourself. Remember that depression is not your fault and is not something you can overcome with willpower alone. Treatment is necessary for depression, just like for anyother illness. Feeling better takes time, and your mood will improve little by little. Stay active ?? Stay busy and get outside. Take a walk, or try some other light exercise. ?? Talk with your doctor about an exercise program. Exercise can help with mild depression. ?? Go to a movie or concert. Take part in a mosque activity or other social gathering. Go to a ballgame. ?? Ask a friend to have dinner with you. Take care of yourself ?? Eat a balanced diet with plenty of fresh fruits and vegetables, whole grains, and lean protein. If you have lost your appetite, eat small snacks rather than large meals. ?? Avoid drinking alcohol or using illegal drugs. Do not take medicines that have not been prescribed for you. They may interfere with medicines you may be taking for depression, or they may make your depression worse. ?? Take your medicines exactly as they are prescribed. You may start to feel better within 1 to 3 weeks of taking antidepressant medicine. But it can take as many as 6 to 8 weeks to see more improvement. If you have questions or concerns about your medicines, or if you do not notice any improvementby 3 weeks, talk to your doctor. ?? If you have any side effects from your medicine, tell your doctor. Antidepressants can make you feel tired, dizzy, or nervous. Some people have dry mouth, constipation, headaches, sexual problems,or diarrhea. Many of these side effects are mild and will go away on their own after you have been taking the medicine for a few weeks. Some may last longer. Talk to your doctor if side effects are bothering you too much. You might be able to try a different medicine. ?? Get enough sleep. If you have problems sleeping: ? Go to bed at the same time every night, and get up at the same time every morning. ? Keep your bedroom dark and quiet. ? Do not exercise after 5:00 p.m. ? Avoid drinks with caffeine after 5:00 p.m. ?? Avoid sleeping pills unless they are prescribed by the doctor treating your depression. Sleepingpills may make you groggy during the day, and they may interact with other medicine you are taking. ?? If you have any other illnesses, such as diabetes, heart disease, or high blood pressure, make sure to continue with your treatment. Tell your doctor about all of the medicines you take, includingthose with or without a prescription. ?? Keep the numbers for these national suicide hotlines: 5-814-091-TALK ( ) and 4-007-CCXBQVD ( ). If you or someone you know talks about suicide or feeling hopeless, get help right away. When should you call for help? Call 911 anytime you think you may need emergency care. For example, call if: ? You feel like hurting yourself or someone else. ? Someone you know has depression and is about to attempt or is attempting suicide. ??Call your doctor now or seek immediate medical care if: ? You hear voices. ? Someone you know has depression and: ? Starts to give away his or her possessions. ? Uses illegal drugs or drinks alcohol heavily. ? Talks or writes about , including writing suicide notes or talking about guns, knives, or pills. ? Starts to spend a lot of time alone. ? Acts very aggressively or suddenly appears calm. ??Watch closely for changes in your health, and be sure to contact your doctor if: ? You do not get better as expected. Where can you learn more? Visit our [employer] information library at http://RIVS/Le Vision Pictureso. You can also view health information on [employer], your personal patient account. Log in or sign uptoday. Enter N529 in the search box to learn more about Recovering From Depression: Care Instructions. Current as of: March 25, 2017 Content Version: 11.7 ?? 4030-1919 [employer]. Care instructions adapted under license by [facility]. If you have questions about a medical condition or this instruction, always ask your healthcare professional. [employer] disclaims any warranty or liability for your use of this information. documented in this encounter Progress Notes * Malgorzata Pappas APRN - 10/14/2017 3:00 PM EDT Subjective: Patient ID: Sarah Moncada is a 37 y.o. female. HPI Her depression symptoms are worse in the last month. She is taking venlafaxine 225 mg QD. She continues to have some anger issues. She finds pleasure in most activities, namely spending time with herdaughters. She has some difficulty concentrating and tosses and turns at night. No SI/HI but has recently thought she would just pack and and leave every thing behind. She has her mom as a support system who frequently helps out with the kids when she is at work or sleeping, as she works overnight. Also neighbors now she has gotten close with. Last visit she had changed her diet with much healthier choices and making things from scratch and is continuing. Had joined a gym but had a URI recently so will start going back next week. This is her me time with putting in ear buds and exercising. Review of Systems Constitutional: Negative for activity change and appetite change. Psychiatric/Behavioral: Positive for dysphoric mood and sleep disturbance. Negative for self-injuryand suicidal ideas. The patient is not nervous/anxious. Objective: Physical Exam Constitutional: She appears well-developed and well-nourished. Psychiatric: Engaged and using good eye contact Vitals reviewed. Assessment and Plan: Sarah was seen today for increased depressive symptoms recently with some sleep disturbance would add the Amitriptyline low dose and she will communicate via [facility] on how she is doing, reviewed plan of care with time to herself, exercise and new medication. See encounter summary for patient instructions. 35 of this 40 minute visit was spent face to face on plan of care. Diagnoses and all orders for this visit: Depression, unspecified depression type - venlafaxine (EFFEXOR-XR) 75 mg Capsule, Sust. Release 24 hr; Take 3 capsules by mouth daily. Dosechange 01/29/17 - amitriptyline (ELAVIL) 10 mg Tablet; Take 1 tablet by mouth nightly. Anxiety - venlafaxine (EFFEXOR-XR) 75 mg Capsule, Sust. Release 24 hr; Take 3 capsules by mouth daily. Dosechange 01/29/17 Fatigue due to depression - Basic Metabolic Panel (non-fasting); Future - CBC (with Diff); Future - TSH; Future - Basic Metabolic Panel (non-fasting) - CBC (with Diff) - TSH - Hemogram - Differential, Automated documented in this encounter Plan of Treatment Not on file documented as of this encounter Procedures Procedure Name Priority Date/Time Associated Diagnosis Comments HEMOGRAM Routine 10/14/2017 3:46 PM EDT Fatigue due to depression DIFFERENTIAL, AUTOMATED Routine 10/14/2017 3:46 PM EDT Fatigue due to depression CBC (WITH DIFF) Routine 10/14/2017 3:46 PM EDT Fatigue due to depression TSH Routine 10/14/2017 3:46 PM EDT Fatigue due to depression BASIC METABOLIC PANEL (NON-FASTING) Routine 10/14/2017 3:46 PM EDT Fatigue due to depression documented in this encounter Results * (ABNORMAL) Differential, Automated (10/14/2017 3:46 PM EDT) Neutrophils % 46.2 % [facility] Neutr Abs (ANC) 3.98 1.70 - 6.10 x10(3)/ L [facility] Lymphocytes % 44.4 % [facility] Lymphocytes Abs 3.8(H) 0.9 - 3.2 x10(3)/ L [facility] Monocytes % 5.7 % [facility] Monocyte Abs 0.5 0.3 - 0.9 x10(3)/[facility] Eosinophils % 2.9 % [facility] Eosinophils Abs 0.2 0.0 - 0.4 x10(3)/ L [facility] Basophils % 0.5 % [facility] Basophils Abs 0.0 0.0 - 0.1 x10(3)/ L [facility] Immature Gran % 0.30 % [facility] Comment: Immature granulocytes(IG's)percentage and absolute count will include metamyelocytes, myelocytes, and promyelocytes. Blood smears from CBCs yielding IG's will be scanned manually for concordance. If this scan disagrees with the automated IG or if promyelocytes are noted, a manual differential will be performed. Rebecca Gran Abs 0.03 0.00 - 0.04 x10(3)/ L [facility] Blood specimen (specimen) 10/14/2017 3:46 PM EDT 10/14/2017 3:52 PM EDT Narrative Resulting Agency Comment Spec In Lab Malgorzata Pappas DIGITIZER OPERATOR HEMATOLOGY ORDERABLE S [facility] [place] [address] * (ABNORMAL) Hemogram (10/14/2017 3:46 PM EDT) WBC 8.6 4.0 - 9.5 x10(3)/[facility] RBC 4.34 4.00 - 5.21 x10(6)/[facility] Hemoglobin 13.6 11.7 - 15.5 gm/dL [facility] Hematocrit 38.4 35.7 - 45.8 % [facility] MCV 88.5 82.6 - 94.4 [facility] MCH 31.3 27.1 - 32.0 pg [facility] MCHC 35.4(H) 31.7 - 35.0 gm/dL [facility] Platelets 236 145 - 357 x10(3)/[facility] RDWSD 38.6 37.0 - 46.0 [facility] RDWCV 11.9 11.5 - 14.1 % [facility] MPV 9.1 7.6 - 12.9 [facility] nRBC % Auto 0.0 % [facility] nRBC Abs Auto 0.000 0.000 - 0.000 x10(3)/[facility] Blood specimen (specimen) 10/14/2017 3:46 PM EDT 10/14/2017 3:52 PM EDT Narrative Resulting Agency Comment Spec In Lab Malgorzata Pappas DIGITIZER OPERATOR HEMATOLOGY ORDERABLE S [facility] [place] [address] * TSH (10/14/2017 3:46 PM EDT) Pathologist [facility] TSH 3.28 0.27 - 4.20 mlU/ML [facility] Blood specimen (specimen) 10/14/2017 3:46 PM EDT 10/14/2017 3:52 PM EDT Narrative Resulting Agency Comment Spec In Lab Malgorzata Clementwitt DIGITIZER OPERATOR CHEMISTRY ORDERABLES [facility] [place] [address] * (ABNORMAL) Basic Metabolic Panel (non-fasting) (10/14/2017 3:46 PM EDT) [facility] Glucose Lvl 243(H) 65 - 199 mg/dL [facility] Comment:Diabetes: >=200 mg/d L plus symptoms BUN 16 8 - 18 mg/dL [facility] Creatinine 0.63(L) 0.70 - 1.20 mg/dL [facility] Sodium 139 135 - 145 mmol/L [facility] Potassium 4.0 3.5 - 5.0 mmol/L [facility] Comment: Please note: ??Patients with WBC >100,000 may have falsely elevated Potassium levels. ??For accurate Potassium quantification in these patients send serum separator tube (gold top) for subsequent determinations. ??Contact the Clinical Chemistry Laboratory if there are any questions. Chloride 99 98 - 107 mmol/L [facility] CO2 25 22 - 31 mmol/L [facility] Anion Gap 15 5 - 15 mmol/L [facility] Calcium 9.2 8.5 - 10.5 mg/dL [facility] Estimated GFR 113 >=60 mL/min/1. 73 m?? [facility] Comment: The eGFR was calculated using the CKD-EPI equation. As with all creatinine based estimates of kidney function, eGFR values calculated with the CKD-EPI equation are not accurate in patients with acute kidney failure, extremes of body mass or the acutely ill. [email or web address] [email or web address] eGFR 131 >=60 mL/min/1. 73 m?? [facility] Comment: The eGFR was calculated using the CKD-EPI equation. As with all creatinine based estimates of kidney function, eGFR values calculated with the CKD-EPI equation are not accurate in patients with acute kidney failure, extremes of body mass or the acutely ill. [email or web address] [email or web address] Blood specimen (specimen) 10/14/2017 3:46 PM EDT 10/14/2017 3:52 PM EDT Narrative Resulting Agency Comment Spec In Lab Malgorzata Pappas APRN CHEMISTRY ORDERABLES Performing Organization Address City/State/[facility] Co de Phone Number [facility] [place] [address] documented in this encounter Visit Diagnoses Diagnosis Depression, unspecified depression type Anxiety Anxiety state, unspecified Fatigue due to depression documented in this encounter Care Teams Equipment Oiler Relationship Specialty Start Date End Date Carlos Alberto Ag MD [facility] [place] [address] PCP - General General Internal Medicine 04/26/17 10/31/19 documented as of this encounter
--- OUTSIDE RECORDS SUMMARY | 2023-10-28 21:38 | XMS_ITS | Encounter Summary ---
Author Organization [facility] Address [facility] [place] [address] Care Team Providers Care Catalogue Illustrator Name Role Phone Carlos Alberto Ag MD Primary Care Provider Reason for Visit * Reason Comments Medication Refill Encounter Details Date Type Department Care Team ([facility] st Contact Info) Description 04/30/2018 Refill Internal Medicine at [facility] [address] [place] [phone] Carlos Alberto Ag MD [facility] [place] [address] Menstrual disorder Social History Tobacco Use Types [...] encounter Miscellaneous Notes * Telephone Encounter - Tiara Lomeli - 05/04/2018 7:36 AM EST Patients PCP is Carlos Alberto Ag MD, [facility]. * Telephone Encounter - Ale Moreau CMA - 05/03/2018 5:43 PM EST Requested Prescriptions Pending Prescriptions Disp Refills ??? medroxyPROGESTERone (DEPO-SUBQ PROVERA 104) 104 mg/0.65 mL Syringe [Pharmacy Med Name: DEPO-SUBQ PROVERA 104 SYRINGE] 0.65 mL 3 Sig: Inject 0.65 mLs subcutaneously Q 3 Months. documented in this encounter Plan of Treatment Not on file documented as of this encounter Visit Diagnoses Diagnosis Menstrual disorder Unspecified disorder of menstruation and other abnormal bleeding from female genital tract documented in this encounter Care Teams Catalogue Illustrator Relationship Specialty Start Date End Date Carlos Alberto Ag MD [facility] [place] [address] PCP - General General Internal Medicine 04/26/17 10/31/19 documented as of this encounter
--- OUTSIDE RECORDS SUMMARY | 2023-10-28 21:38 | XMS_ITS | Encounter Summary ---
Author Organization [facility] [place] [address] Care Team Providers Care Industrial Spray Painter Name Role Phone Carlos Alberto Ag MD Primary Care Provider Reason for Referral * Consultation (Urgent) - Closed Specialty Diagnoses / Procedures Referred By Contac t Referred To Contact Internal Medicine Diagnoses Severe episode of recurrent major depressive disorder, without psychotic features Carlos Alberto Ag MD [facility] [place] [address] [address] Referral ID Status Reason Start Date Expiration Date V isits Requested Visits Authorized [id number] Closed Specialty Service Requested 08/21/2019 08/20/2020 1 1 Reason for Visit * Reason Comments Medication Check refills needed. No o ther concerns at this time. Encounter Details Date Type Department Care Team (Late st Contact Info) Description 08/21/2019 1:30 PM EDT TH Visit (TeleHealth) [place] [address] Carlos Alberto Ag MD [facility] [place] [address] Gastroesophageal reflux disease, esophagitis presence not specified; Essential hypertension; Severe episode of recurrent major depressive disorder, without psychotic features; Seasonal allergies Social History Tobacco Use Types Packs/Day Years [...] on file documented as of this encounter Progress Notes * Carlos Alberto Ag MD - 08/21/2019 1:30 PM EDT Telephone Based Clinical Care Note Sarah Moncada verbally consented to conduct this clinical encounter by telephone or video/telehealth. she acknowledges that her insurance may be billed for the care provided, similar to an in person appointment. Sarah Moncada is in the following location at the time of the phone call: [facility](document location including state) Contact information [address] [facility] [address] (M) [phone] (H) Call start time: 2:02 pm Reason for visit/chief complaint: Chief Complaint Patient presents with ??? Medication Check refills needed. No other concerns at this time. Current Medications (which were reviewed during the visit): Medications 08/21/19 1304 Medication Sig Taking? venlafaxine XR (Effexor-XR) 75 mg Capsule, Sust. Release 24 hr Take 1 capsule by mouth daily. Yes lisinopriL (Prinivil;Zestril) 10 mg Tablet Take 1 tablet by mouth daily. Yes metFORMIN XR (Glucophage XR) 500 mg Tablet Sustained Release 24 hr Take 1 tablet by mouth 2 times daily. Please call to schedule an appt: [phone] Yes venlafaxine (EFFEXOR-XR) 150 mg Capsule, Sust. Release 24 hr Take 1 capsule by mouth daily. Yes omeprazole (PriLOSEC) 20 mg Capsule, Delayed Release(E.C.) Take 1 capsule by mouth daily. Yes medroxyPROGESTERone (DEPO-SUBQ PROVERA 104) 104 mg/0.65 mL Syringe Inject 0.65 mLs subcutaneously Q3 Months. Yes Syringe with Needle, Safety (EASY TOUCH FLIPLOCK SYRINGE) 1 mL 25 gauge x 1 Syringe For use with depo provera IM injections Yes medroxyPROGESTERone (DEPO-PROVERA) 150 mg/mL Suspension Inject 1 mL into the muscle Q 3 Months. Yes MULTI-VITAMIN ORAL Take by mouth daily. Yes amitriptyline (ELAVIL) 10 mg Tablet Take 1 tablet by mouth nightly. Patient not taking: Reported on 08/21/2019 benzonatate (TESSALON) 200 mg Capsule Take 1 capsule by mouth 3 times daily as needed for Cough. Patient not taking: Reported on 08/21/2019 loratadine (CLARITIN) 10 mg Tablet Take 10 mg by mouth daily. APPLE CIDER VINEGAR ORAL Take 1 each by mouth daily. Patient Reported: Vitals: Wt Readings from Last 3 Encounters: 06/24/18 100.2 kg (221 lb) 12/31/17 102.7 kg (226 lb 6.4 oz) 10/14/17 104.3 kg (230 lb) Documentation of content of discussion: Depression medicine not working. Sleeping all the time. Doesn't want to do anything. Feeling depressed/sad. Thoughts of hurting herself. No suicide attempts. Was put on venlafaxine 2-3 years ago whenabbey first started having them. Has a plan - 1 slit on each wrist in the tub with the water running.If it wasn't for her best friend (lives next door, sees every day), friend that she talks to one the phone. Has 2 girls at home aged 13 and 7. Friend that she talks to over the phone speaks with every day. Works for [employer]. Thinking that world would be better off if she wasn't there. Has been feeling like this for a couple months. COVID is making things worse. Mother is a big stressor for her and she has tried to avoid her. Single mom, lots of stress, holds a lot in. Last year had plan all set and a gaurav she was dating talked her out of it. Never left alone right now so she can't do anything. Won't do it with her kids in the house. Promise to best friend is also keeping her from doingthis. No guns, but has kitchen knives. Has done counseling in the past - not helpful. Doesn't want to come in. Knows what to see to pass the suicide watch. Has done it before. Having difficlulty with kids at home. Has been taking 150 mg since . Has tried other meds in the past - prozac (worked). FHx depression. No suicide. EtOH on the weekends socially. Smokes socially. Once in a while smokes marijuana. Assessment and Plan: 39 YOF with PMH of MDD, HTN, CADY, DM2 that presents today with telehealth visit for worsening depression with active suicidal ideation with a plan. Given concern for patient's immediate safety, recommended that patient present to emergency department for evaluation by psychiatry and consideration of inpatient admission. She initially responded with I know what to say to get around a suicide watch, but seemed more receptive to this plan later on during call. Upon leaving she said she was goingto go for a drive with her friend to talk things over about arrangements for watching her children.Will reach out to [facility] to check in this week which patient said she was ok with. She has responded well to prozac in the past and will cross taper this with effexor. Plan below. Follow Up: #MDD with suicidal ideation -Recommended presentation to ED -Start fluoxetine 20 mg QD for 1 week, increase to 40 mg next week -Decrease effexor to 75 mg tomorrow, take for 3-5 days then stop -Reach out to Carmen Vaca and [facility] #HTN -Refill lisinopril 10 mg QD #Seasonal allergies -Refill claritin prn Carlos Alberto Ag MD Total time spent associated with the visit including patient discussion and pre/post visit chart activities: 45 minutes Telephone/Telehealth visit codes: Established Patient New Patient 83893 (10 minute visit) 24548 (10 minute visit) 62988 (15 minute visit) 96625 (20 minute visit) 75056 (25 minute visit) 92329 (30 minute visit) 48475 (40 minute visit) 30913 (45 minute visit) 44655 (60 minute visit) * Jacqueline Cleveland MD - 08/21/2019 1:30 PM EDT I was physically present in the clinic and discussed the case with the resident [id number] at thetime of the visit or immediately after the visit. The assessment and plan were formulated in discussion with me and I agree with them as documented. I have reviewed the discussion, observations/physical exam, assessment and plan with the resident. Major issues discussed today: Depression meds wanted to discuss effxor 225 mg a day Out of 75 and started to feel worse Sleeping all the time Depressed and sad Thoughts of killing self- Has 2 kids age 13 and 7 Best friend next door single mom with 4 kids Phone partner has talked to but never met supportive Kids around and would not do Mom is stressful to her Never left alone right now Does not work- Tried prozac and that worked for her in the past No FH suicide etoh socially weekends MJ once in a while PE There were no vitals taken for this visit. Pt not examined --depression and SI She states if goes to ED will say the right things to not be kept However when called back pt states will talk to friend next door and my be willing to come to ED However she would welcome a reach out from [facility] Plan cont effexor taper and start prozac 20 with plan to increase to 40 mg after 1 week Also set up follow up GIM 1 week to check up on pt At end of appt asked for refill of her allergy med claritin and also her bp medication. documented in this encounter Plan of Treatment Scheduled Referrals Name Type Priority Associated Diagnoses Orde r Schedule Referral to Behavior Health Clinician (Primary Care Only) Outpatient Referral Routine Severe episode of recurrent major depressive disorder, without psychotic features Ordered: 08/21/2019 documented as of this encounter Visit Diagnoses Diagnosis Gastroesophageal reflux disease, esophagitis presence not specified Essential hypertension Unspecified essential hypertension Severe episode of recurrent major depressive disorder, without psychotic features Seasonal allergies Allergic rhinitis, cause unspecified documented in this encounter Care Teams Industrial Spray Painter Relationship Specialty Start Date End Date Carlos Alberto Ag MD [facility] [place] [address] PCP - General General Internal Medicine 04/26/17 10/31/19 documented as of this encounter
--- OUTSIDE RECORDS SUMMARY | 2023-10-28 21:38 | XMS_ITS | Encounter Summary ---
Author Organization [facility] [place] [address] Care Team Providers Care Sample Maker Hand Name Role Phone Carlos Alberto Ag MD Primary Care Provider Reason for Visit * Reason Onset Date Comments Medication Refill 07/07/2019 Encounter Details Date Type Department Care Team (Late st Contact Info) Description 07/07/2019 [place] [address] [facility] [address] [place] [address] Essential hypertension; Uncontrolled type 2 diabetes mellitus [...] insulin documented in this encounter Care Teams Sample Maker Hand Relationship Specialty Start Date End Date Carlos Alberto Ag MD [facility] [address] [facility] [place] [address] PCP - General General Internal Medicine 04/26/17 10/31/19 documented as of this encounter
--- OUTSIDE RECORDS SUMMARY | 2023-10-28 21:38 | XMS_ITS | Encounter Summary ---
Author Organization [facility] Address [facility] [place] [address] Care Team Providers Care Shoelace Tipping Machine Operator Name Role Phone Rosemary Howe MD Primary Care Provider [phone] Encounter Details Date Type Department Care Team (Late st Contact Info) Description 09/01/2019 Telephone [place] [phone] Nela Haines Social History Tobacco Use Types [...] encounter Miscellaneous Notes * Telephone Encounter - Nela Haines - 09/01/2019 9:02 AM EDT Pt has referral to see Dr Sacnhez that needs to be scheduled as a telehealth THHN 60 minutes documented in this encounter Plan of Treatment Not on file documented as of this encounter Visit Diagnoses Not on filedocumented in this encounter Care Teams Shoelace Tipping Machine Operator Relationship Specialty Start Date End Date Rosemary Howe MD [facility] [address] [facility] [address] PCP - General General Internal Medicine 11/01/1908/21 documented as of this encounter
--- OUTSIDE RECORDS SUMMARY | 2023-10-28 21:38 | XMS_ITS | Encounter Summary ---
Author Organization [facility] Address [facility] [place] [address] Care Team Providers Care Geographic Analyst Name Role Phone Carlos Alberto Ag MD Primary Care Provider Reason for Visit * Reason Comments Medication Refill Encounter Details Date Type Department Care Team (Late st Contact Info) Description 05/06/2018 Refill Internal Medicine at [facility] [address] [place] [address] Carlos Alberto Ag MD [facility] [address] [place] [place] [address] Depression, unspecified depression type; Anxiety Social History Tobacco Use Types Packs/Day Years [...] unspecified depression type Anxiety Anxiety state, unspecified documented in this encounter Care Teams Geographic Analyst Relationship Specialty Start Date End Date Carlos Alberto Ag MD [facility] [address] [place] [address] PCP - General General Internal Medicine 04/26/17 10/31/19 documented as of this encounter
--- OUTSIDE RECORDS SUMMARY | 2023-10-28 21:38 | XMS_ITS | Encounter Summary ---
Author Organization [facility] [place] [address] Care Team Providers Care Dental Practitioner Name Role Phone Carlos Alberto Ag MD Primary Care Provider Reason for Referral * Consultation (Routine) - Closed Specialty Diagnoses / Procedures Referred By Contmak t Referred To Contact Internal Medicine Diagnoses Current moderate episode of major depressive disorder, unspecified whether recurrent Malgorzata Pappas APRN [facility] [place] [address] [address] Referral ID Status Reason Start Date Expiration Date V isits Requested Visits Authorized [id number] Closed Specialty Service Requested 06/24/2018 06/24/2019 1 1 Reason for Visit * Reason Comments Depression Other stomach issues for lulu gillespie, nausea, food doesn't settle well, diarrhea Encounter Details Date Type Department Care Team (Late st Contact Info) Description 06/24/2018 10:00 AM EST Office [place] [address] Malgorzata Pappas APRN [facility] [address] [place] [address] Current moderate episode of major depressive disorder, unspecified whether recurrent Social History Tobacco Use Types Packs/Day Years [...] Sign Reading Time Taken Comments Blood Pressure 112/76 06/24/2018 10:18 AM EST Pulse 94 06/24/2018 10:18 AM EST Temperature 37 ??C (98.6 ??F) 06/24/2018 10:18 AM EST Respiratory Rate 16 06/24/2018 10:18 AM EST Oxygen Saturation 100% 06/24/2018 10:18 AM EST Inhaled Oxygen Concentration - - Weight 100.2 kg (221 lb) 06/24/2018 10:18 AM EST Height 165 cm (5' 4.96) 06/24/2018 10:18 AM EST Body Mass Index 36.82 06/24/2018 10:18 AM EST documented in this encounter Patient Instructions * Patient Instructions* Malgorzata Pappas, LEESA - 06/24/2018 10:00 AM EST Images from the original note were not included. Patient Education Learning About Mood Disorders What are mood disorders? Mood disorders are medical problems that affect how you feel. They can impact your moods, thoughts,and actions. Mood disorders include: ?? Depression. This causes you to feel sad or hopeless for much of the time. ?? Bipolar disorder. This causes extreme mood changes from manic episodes of very high energy to extreme lows of depression. ?? Seasonal affective disorder (SAD). This is a type of depression that affects you during the sameseason each year. Most often people experience SAD during the fall and winter months when days are shorter and there is less light. What are the symptoms? Depression You may: ?? Feel sad or hopeless nearly every day. ?? Lose interest in or not get pleasure from most daily activities. You feel this way nearly every day. ?? Have low energy, changes in your appetite, or changes in how well you sleep. ?? Have trouble concentrating. ?? Think about and suicide. Keep the numbers for these national suicide hotlines: 7-751-063-TALK ( ) and 2-331-IHRQWSA ( ). If you or someone you know talks about suicide or feeling hopeless, get help right away. Bipolar disorder Symptoms depend on your mood swings. You may: ?? Feel very happy, energetic, or on edge. ?? Feel like you need very little sleep. ?? Feel overly self-confident. ?? Do impulsive things, such as spending a lot of money. ?? Feel sad or hopeless. ?? Have racing thoughts or trouble thinking and making decisions. ?? Lose interest in things you have enjoyed in the past. ?? Think about and suicide. Keep the numbers for these national suicide hotlines: -TALK ( ) and 0-613-IBZSTWJ ( ). If you or someone you know talks about suicide or feeling hopeless, get help right away. Seasonal affective disorder (SAD) Symptoms come and go at about the same time each year. For most people with SAD, symptoms come during the winter when there is less daylight. You may: ?? Feel sad, grumpy, jalloh, or anxious. ?? Lose interest in your usual activities. ?? Eat more and crave carbohydrates, such as bread and pasta. ?? Gain weight. ?? Sleep more and feel drowsy during the daytime. How are mood disorders treated? Mood disorders can be treated with medicines or counseling, or a combination of both. Medicines for depression and SAD may include antidepressants. Medicines for bipolar disorder may include: ?? Mood stabilizers. ?? Antipsychotics. ?? Benzodiazepines. Counseling may involve cognitive-behavioral therapy. It teaches you how to change the ways you think and behave. This can help you stop thinking bad thoughts about yourself and your life. Light therapy is the main treatment for SAD. This therapy uses a special kind of lamp. You let the lamp shine on you at certain times, usually in the morning. This may help your symptoms during the months when there is less sunlight. Healthy lifestyle Healthy lifestyle changes may help you feel better. ?? Get at least 30 minutes of exercise on most days of the week. Walking is a good choice. ?? Eat a healthy diet. Include fruits, vegetables, lean proteins, and whole grains in your diet each day. ?? Keep a regular sleep schedule. Try for 8 hours of sleep a night. ?? Find ways to manage stress, such as relaxation exercises. ?? Avoid alcohol and illegal drugs. Follow-up care is a lewis part of your treatment and safety. Be sure to make and go to all appointments, and call your doctor if you are having problems. It's also a good idea to know your test resultsand keep a list of the medicines you take. Where can you learn more? Visit our health information library at http://hint/Wellco[employer]. You can also view health information on [employer], your personal patient account. Log in or sign uptoday. Enter Z126 in the search box to learn more about Learning About Mood Disorders. Current as of: December 28, 2017 Content Version: 11.9 ?? [id number] [employer]. Care instructions adapted under license by [facility]. If you have questions about a medical condition or this instruction, always ask your healthcare professional. [employer] disclaims any warranty or liability for your use of this information. documented in this encounter Progress Notes * Malgorzata Pappas APRN - 06/24/2018 10:00 AM EST Subjective: Patient ID: Sarah Moncada is a 38 y.o. female. ENRIKE Smith is here with worsening depression symptoms in the last month. She is taking venlafaxine 225 mg QD. She continues to have some anger issues. She finds pleasure in most activities, namely spending time with her daughters. She has some difficulty concentrating and tosses and turns at night. No SI/HI but the swings of mood are bothering her. On therapist suggested that she has bipolar disease. She is actually feeling a little better just quitting her job and getting her Mom out of her life. She feels this has been a life time of swings. Review of Systems Constitutional: Negative for activity change (exercising at home) and appetite change. Psychiatric/Behavioral: Positive for dysphoric mood and sleep disturbance. Negative for self-injuryand suicidal ideas. The patient is nervous/anxious. Objective: Physical Exam Constitutional: She appears well-developed and well-nourished. Psychiatric: She has a normal mood and affect. Her behavior is normal. Very thoughtful in discussing her concerns, using good eye contact. Vitals reviewed. Assessment and Plan: Sarah was seen today for depression. Would not change medication at this point, formal diagnosis and medication per psychiatry. Also time for her annual exam with Dr. Ag. See encounter summaryfor patient instructions. Diagnoses and all orders for this visit: Current moderate episode of major depressive disorder, unspecified whether recurrent - Referral to Collaborative Care Psychiatrist (Primary Care Only) documented in this encounter Plan of Treatment Scheduled Referrals Name Type Priority Associated Diagnoses Order Schedule Referral to Collaborative Care Psychiatrist (Primary Care Only) Outpatient Referral Routine Current moderate episode of major depressive disorder, unspecified whether recurrent Ordered: 06/24/2018 documented as of this encounter Visit Diagnoses Diagnosis Current moderate episode of major depressive disorder, unspecified whether recurrent documented in this encounter Care Teams Dental Practitioner Relationship Specialty Start Date End Date Carlos Alberto Ag MD [facility] [place] [address] PCP - General Internal Medicine 04/26/17 10/31/19 documented as of this encounter
--- OUTSIDE RECORDS SUMMARY | 2023-10-28 21:38 | XMS_ITS | Encounter Summary ---
Author Organization [facility] [place] [address] Care Team Providers Care Outsole Rounder Name Role Phone Carlos Alberto Ag MD Primary Care Provider Reason for Visit * Reason Onset Date Comments Medication Refill 05/13/2019 Encounter Details Date Type Department Care Team (Late st Contact Info) Description 05/13/2019 [place] [address] Carlos Alberto Ag MD [facility] [place] [address] Gastroesophageal reflux disease, esophagitis presence not specified [...] specified documented in this encounter Care Teams Outsole Rounder Relationship Specialty Start Date End Date Carlos Alberto Ag MD [facility] [place] [address] PCP - General General Internal Medicine 04/26/17 10/31/19 documented as of this encounter
--- OUTSIDE RECORDS SUMMARY | 2023-10-28 21:38 | XMS_ITS | Encounter Summary ---
Author Organization [facility] [place] [address] Care Team Providers Care Belt Worker Name Role Phone Carlos Alberto Ag MD Primary Care Provider Reason for Visit * Reason Comments Medication Refill Encounter Details Date Type Department Care Team (Late st Contact Info) Description 06/22/2018 Refill [place] [address] Malgorzata Pappas, TICKET DISPENSER CHANGER [facility] [place] [address] Gastroesophageal reflux disease, esophagitis presence not specified; [...] hypertension documented in this encounter Care Teams Belt Worker Relationship Specialty Start Date End Date Carlos Alberto Ag MD [facility] [address] [facility] [place] [address] PCP - General General Internal Medicine 04/26/17 10/31/19 documented as of this encounter
--- OUTSIDE RECORDS SUMMARY | 2023-10-28 21:38 | XMS_ITS | Encounter Summary ---
Author Organization [facility] [place] [address] Care Team Providers Care Process Development Associate Name Role Phone Carlos Alberto Ag MD Primary Care Provider Encounter Details Date Type Department Care Team (Late st Contact Info) Description 06/23/2018 Telephone [place] [phone] Rosemary Bass Social History Tobacco Use Types Packs/Day Years [...] on filedocumented in this encounter Care Teams Process Development Associate Relationship Specialty Start Date End Date Carlos Alberto Ag MD [facility] [place] [address] PCP - General General Internal Medicine 04/26/17 10/31/19 documented as of this encounter
--- OUTSIDE RECORDS SUMMARY | 2023-10-28 21:38 | XMS_ITS | Encounter Summary ---
Author Organization [facility] Address [facility] [place] [address] Care Team Providers Care Base Draw Operator Name Role Phone Enoch Medina MD Primary Care Provider [phone] Reason for Visit * Reason Onset Date Comments Medication Refill 03/24/2019 Encounter Details Date Type Department Care Team (Late st Contact Info) Description 03/24/2019 Refill Internal Medicine at [facility] [address] [place] [address] Carlos Alberto Ag MD [facility] GENERAL [place] [address] Menstrual disorder; Essential hypertension; Uncontrolled type 2 [...] insulin documented in this encounter Care Teams Base Draw Operator Relationship Specialty Start Date End Date Enoch Medina MD [facility] [address] [place] [address] PCP - General Family Medicine 08/22/20 06/03/21 documented as of this encounter
--- OUTSIDE RECORDS SUMMARY | 2023-10-28 21:38 | XMS_ITS | Clinical Summary ---
Author Organization [facility] Address [facility] [place] [address] Care Team Providers Care Chronograph Operator Name Role Phone Unavailable Primary Care Provider Unavailabl e Allergies Active Allergy Reactions Criticality Noted Date Comments Red Blood Cells High 12/23/2011 Antibodies-Difficult to Crossmatch DO NOT REMOVE Please contact the Blood Bank at [phone] for questions. Medications Medication Sig Dispensed Refills Start Date End Date Status MULTI-VITAMIN ORAL Take by mouth daily. Active medroxyPROGESTERone (DEPO-PROVERA) 150 mg/mL Suspension Inject 1 mL into the muscle Q 3 Months. 1 mL 3 01/14/2017 Active APPLE CIDER VINEGAR ORAL Take 1 each by mouth daily. Active Syringe with Needle, Safety (EASY TOUCH FLIPLOCK SYRINGE) 1 mL 25 gauge x 1 SyringeIndications: Encounter for contraceptive management, unspecified type For use with depo provera IM injections 10 Syringe 2 01/29/2017 Active benzonatate (TESSALON) 200 mg Capsule Take 1 capsule by mouth 3 times daily as needed for Cough. 20 capsule 09/21/2017 Active Additional Information Patient not taking.Reported on 08/21/2019 amitriptyline (ELAVIL) 10 mg TabletIndications:D epression, unspecified depression type Take 1 tablet by mouth nightly. 90 tablet 3 02/28/2018 Active Additional Information Patient not taking.Reported on 08/21/2019 venlafaxine (EFFEXOR-XR) 150 mg Capsule, Sust. Release 24 hr Take 1 capsule by mouth daily. 90 capsule 3 05/15/2019 Active venlafaxine XR (Effexor-XR) 75 mg Capsule, Sust. Release 24 hr Take 1 capsule by mouth daily. 90 capsule 08/16/2019 Active omeprazole (PriLOSEC) 20 mg Capsule, Delayed Release(E.C.)Indica tions:Gastroesophag eal reflux disease, esophagitis presence not specified Take 1 capsule by mouth daily. 90 capsule 3 08/21/2019 Active FLUoxetine (PROzac) 20 mg Tablet Take 1-2 tablets by mouth daily. Take 20 mg daily for 1 week. After 1 week take 40 mg daily 60 tablet 12 08/21/2019 Active loratadine (Claritin) 10 mg Tablet Take 1 tablet by mouth daily. 90 tablet 3 08/21/2019 Active lisinopriL (Prinivil;Zestril) 10 mg TabletIndications:E ssential hypertension Take 1 tablet by mouth daily. 90 tablet 08/21/2019 Active metFORMIN XR (Glucophage XR) 500 mg Tablet Sustained Release 24 hrIndications:Uncon trolled type 2 diabetes mellitus without complication, without long-term current use of insulin Take 1 tablet by mouth 2 times daily. 180 tablet 3 09/13/2019 Active medroxyPROGESTERone (Depo-subQ provera 104) 104 mg/0.65 mL SyringeIndications: Menstrual disorder Inject 0.65 mLs subcutaneously Q 3 Months. 0.65 mL 3 09/22/2019 Active Active Problems Problem Noted Date Diagnosed Date Chronic right hip pain 05/13/2017 Lumbago 05/14/2016 Nonallopathic lesion of lumbar region 05/14/2016 Disorders of sacrum 05/14/2016 Eczema 05/14/2016 Carrier of group B Streptococcus 12/10/2011 Rh negative status during 05/29/2011 Rubella non-immune status 05/29/2011 GERD (gastroesophageal reflux disease) 2 Overview (05/09/2013): EGD 05/2003 (Dr Nj, [facility]): normal, no biopsies taken Assessment & Plan (09/29/2011 3:04 PM EDT): Switched from prilosec to zantac Carpal tunnel syndrome 05/14/2011 Overview (05/09/2013): eval 12/2003 Dr Ortiz ([facility]), bilat symptoms R>L NCS: mild median nerve entrapment at wrists, L>R. No evidence for ulnar nerve entrapment or neuropathy. Scanned in CIS Depression Overview (05/09/2013): Hx depression prior to 2003 Re-eval [address] [facility] Prior tx paroxetine, lexapro Post depression sx noted 01/2012. Put on sertraline 25 mg daily and delfino to f/u with PCP Obstructive sleep apnea Overview (05/09/2013): Sleep center eval 11/27. Sleep study confirmed dx. CPAP titration 12/2010. Hypertension Overview (01/17/2012): switched to aldomet preconceptually Diabetes mellitus Overview (05/09/2013): Gestational DM with in 2005 also GDM, on metformin at beginning of - on insulin in 1st trimester Needs: 24 urine done 06/28 normal Baseline PEC labs -->done 05/29 wnl Morphology US 18-20 weeks echocardiogram 20-22 week- 08/26 ? Subaortic VSD needs repeat echo 4-6 wks optho in August Assessment & Plan (09/29/2011 3:04 PM EDT): FSBS are mostly within range. No change sto insulin needed. History of ganglion cyst Overview (05/09/2013): R wrist, s/p excision 06/29, Dr Cabrales ([facility]) Healthcare maintenance Overview (05/09/2013): Records from [place] received 03/2013. tdap 02/14/2009 (we gave at initial visit 01/29 --did not have records at the time of that visit) Resolved Problems Problem Noted Date Diagnosed Date Resolved Date Supervision of high-risk 05/14/2011 05/12/2012 Overview (11/10/2011): Team MFM Delivery plan GBS date & Result Cystic fibrosis choice declined Aneuploidy choice declined Others screening tests nutrition Childbirth education preferences Contraception plan depo Ped/circ plans Immunizations: Influenza vaccine Accepted Declined Contraindicated 05/14/2011 Other vaccines Indicated Not indicated Given during Tdap xx Pneumovax MMR Varicella Other Previous section 05/14/2011 Overview (01/17/2012): Desires , information given but not discussed. Reviewed Op Note LTCS 2006 done for deep transverse arrest after 2.5 hour second stage. Need to discuss likely CPD and only ~ 32% chance of successful vaginal delivery from calculator which is likely lower given Type 2 DM. Immunizations Name Administration Dates Next Due Hepatitis B Unspecified Formulation 01/18/2004 Influenza PF, Split 05/14/2011 Influenza Unspecified Formulation 06/23/2018 Influenza Vaccine, Whole 03/21/2008 MMR Vaccine LIVE 12/20/2011 Meningococcal Conjugate 01/23/2004 Pneumococcal Polysaccharide (Pneumovax 23) 04/09 Rho(D) Immune Globulin (RhoGAM),IM 10/13/2011 TD Adult 01/18/2004 Tdap 01/30/2013 Family History Medical History Relation Comments Cancer Father throat and lung cancer Diabetes Mother Hypertension Mother Sleep Apnea Paternal Aunt Brain Tumor Sister Sleep Apnea Sister Relation Status Comments Father Mother Paternal Aunt Sister Social History Tobacco Use Types Packs/Day Years [...] PM EDT Sexual Orientation Not on file Last Filed Vital Signs Vital Sign Reading [...] Mass Index 36.82 06/24/2018 10:18 AM EST Plan of Treatment Health Maintenance Due Date Last Done Comments CT Colonography 1978 Colonoscopy 1978 Colorectal Cancer Screening 1978 FIT DNA 1978 FIT 1978 Sigmoidoscopy (10 year) with FIT yearly 1978 Sigmoidoscopy 1978 Hepatitis C Screening 1996 Hepatitis B vaccine (0-59 yrs) (2) 02/15/20042003 DM Hemoglobin A1c 11/19/2017 08/19/2017, , 08/20/2016, Additional history exists Breast Cancer Share Decision Needed 2018 Breast Cancer screening 2018 DM Opthalmology Exam 06/03/2018 06/03/2017 (Outside per patient (enter details in comments)), 05/11/2016 (Outside per patient (enter details in comments)) DM Urine Microalbumin yearly 06/03/2018, 04/28/2016, 01/30/2013 DM Creatinine yearly 10/14/2018 10/14/2017, 08/19/2017, 06/03/2017, Additional history exists HPV test 03/05/2022 03/05/2017 Lipid Screening 03/05/2022 03/05/2017, 06/0 04/2015, 01/30/2013 PAP Smear 03/05/2022 03/05/2017, 05/20, 03/03/2010 Covid-19 Vaccine ( - 2022-2 4 season) 2022 Tetanus vaccine 01/30/2023 01/30/2013, 01/18/2004 Influenza (Flu) vaccine (1 o f 1 - Influenza standard series) 12/19/2023 06/23/2018, 05/14/2011, 03/21/2008 HIV screen Completed 05/29/2011 Tdap adult Completed 01/30/2013 Procedures Procedure Name Priority Date/Time Associated Diagnosis Comments BASIC METABOLIC PANEL (NON-FASTING) Routine 10/14/2017 3:46 PM EDT Fatigue due to depression HEMOGLOBIN A1C Routine 08/19/2017 3:27 PM EDT Type 2 diabetes mellitus without complication, without long-term current use of insulin U ALBUMIN/CRE RATIO Routine 06/03/2017 9 :41 AM EST Type 2 diabetes mellitus without complication, without long-term current use of insulin HPV Routine 03/05/2017 9:28 AM EST BUNDLER CYTOLOGY FINAL REPORT Routine 03/05/2017 9:28 AM EST LIPID PANEL (REFLEX DIRECT LDL) Routine 03/05/2017 8:17 AM EST Dyslipidemia HIV SCREEN, 4TH GENERATION ([facility]/CGP/APD/NLH) Routine 05/29/2011 12:38 PM EST Unspecified high-risk from Last 3 Months or Most Recently Relevant to Health Maintenance Results * (ABNORMAL) Basic Metabolic Panel (non-fasting) (10/14/2017 3:46 PM EDT) Glucose Lvl 243(H) 65 - 199 mg/dL [facility] Comment:Diabetes: >=200 mg/d L plus symptoms BUN 16 8 - 18 mg/dL [facility] Creatinine 0.63(L) 0.70 - 1.20 mg/dL [facility] Sodium 139 135 - 145 mmol/L [facility] Potassium 4.0 3.5 - 5.0 mmol/L [facility] Comment: Please note: ??Patients with WBC >100,000 may have falsely elevated Potassium levels. ??For accurate Potassium quantification in these patients send serum separator tube (gold top) for subsequent determinations. ??Contact the Clinical Chemistry Laboratory if there are any questions. Chloride 99 98 - 107 mmol/L [facility] CO2 25 22 - 31 mmol/L [facility] Anion Gap 15 5 - 15 mmol/L [facility] Calcium 9.2 8.5 - 10.5 mg/dL [facility] Estimated GFR 113 >=60 mL/min/1. 73 m?? [facility] Comment: The eGFR was calculated using the CKD-EPI equation. As with all creatinine based estimates of kidney function, eGFR values calculated with the CKD-EPI equation are not accurate in patients with acute kidney failure, extremes of body mass or the acutely ill. [email or web address] [email or web address] eGFR 131 >=60 mL/min/1. 73 m?? [facility] Comment: The eGFR was calculated using the CKD-EPI equation. As with all creatinine based estimates of kidney function, eGFR values calculated with the CKD-EPI equation are not accurate in patients with acute kidney failure, extremes of body mass or the acutely ill. [email or web address] [email or web address] Blood specimen (specimen) 10/14/2017 3:46 PM EDT 10/14/2017 3:52 PM EDT Narrative Resulting Agency Comment Spec In Lab Malgorzata Pappas APRN CHEMISTRY ORDERABLES [facility] [place] [address] * (ABNORMAL) Hemoglobin A1c (08/19/2017 3:27 PM EDT) Hemoglobin A1C 6.9(H) 4.3 - 5.6 % [facility] Comment: Reference Range: 4.3 - 5.6% 5.7 - 6.4% - Increased Risk of Developing Diabetes Mellitus >= 6.5% - Consistent with diagnosis of Diabetes Mellitus In the absence of hyperglycemia (i.e. plasma glucose > 200 mg/dL) or classic symptoms of hyperglycemia a repeat measurement of HbA1c should be performed on a separate sample to confirm the diagnosis. Diagnosis and Classification of Diabetes Mellitus, Diabetes Care 2013; 36: Suppl. 1, S67-30 Est Avg Gluc 151 mg/dL [facility] Comment: eAG equivalents for HbA1c percentages: HbA1c(%) ?eAG(mg/dL) 6.0 ?126 6.5 ?140 7.0 ?154 7.5 ?169 8.0 ?183 8.5 ?197 9.0 ?212 9.5 ?226 10.0 ? 240 Limitations: The eAG calculation has not been validated on women, individuals below 18 years old and above 70 years old, and individuals with hemoglobinopathies. Additional resources are available on the ADA website. Jose BLANKENSHIP, Kate J, Alexis R, et al. ??Translating the A1C assay into estimated average glucose values. ??Diabetes Care 2008:31(8):0827-8235. Blood specimen (specimen) 08/19/2017 3:27 PM EDT 08/19/2017 3:34 PM EDT Narrative Resulting Agency Comment Spec In Lab Malgorzata Pappas APRN CHEMISTRY ORDERABLES [facility] [place] [address] * U Albumin/Cre Ratio (06/03/2017 9:41 AM EST) Alb/Cr Ratio, Random Not Calculated 0 - 29 mcg/mg Cr [facility] Comment: Reference Ranges: <30 mcg/mg: Normal 30-300 mcg/mg: Moderately increased albuminuria.* >300 mcg/mg: Severely increased albuminuria. * ACEI or ARB recommended if diabetic; suggested if BP>130/80 without diabetes ACEI or ARB strongly recommended if diabetic; recommended if BP>130/80 without diabetes Two of three specimens collected within a 3 to 6 month period should be abnormal before considering a patient to have albuminuria. Transient causes: exercise, fever, infection, CHF, marked hyperglycemia or hypertension. Persistent albuminuria indicates CKD and is an independent risk factor for ASCVD. ADA Standards of Medical Care in Diabetes-2016; KDIGO: Kidney International Supplements (2012) 2, 357? 362 U Albumin Conc, Random <3.0 mg/L [facility] U Creatinine 120 mg/dL [facility] Urine specimen (specimen) 06/03/2017 9:41 AM EST 06/03/2017 9:51 AM EST Narrative Resulting Agency Comment Spec In Lab Jacqueline Cleveland MD URINE ORDERABLES Performing Organization Address [facility] de Phone Number [facility] [place] [address] * HPV (03/05/2017 9:28 AM EST) HPV 16 NEGATIVE NEGATIVE [facility] HPV 18 NEGATIVE NEGATIVE [facility] HPV Other HR NEGATIVE NEGATIVE [facility] HPV Interpretation See Comment [facility] Comment: NEGATIVE for high-risk HPV *. * Testing negative for high risk HPV means that the specimen is negative for the following 14 types tested: ??types 16, 18, 31, 33, 35, 39, 45, 51, 52, 56, 58, 59, 66, and 68. ??The test is not intended to detect low risk HPV types. Antonia Kira HPV test Specimen: HPV Testing - Cytology Liquid Based Prep Cervical swab (specimen) 03/05/2017 9:28 AM EST 03/05/2017 1:43 PM EST Narrative Resulting Agency Comment Spec In Lab Rosalva Cardenas TOOL STRAIGHTENER PATHOLOGY/CYTOLOGY O RDERABLES Performing Organization Address [facility] de Phone Number [facility] [place] [address] * Starting Sheet Tank Operator Cytology Final Report (03/05/2017 9:28 AM EST) Starting Sheet Tank Operator Cytology Final Report [id number] ? Location: [facility] The signing pathologist has (i) examined the relevant preparation(s) for the specimen(s) and (ii) rendered or confirmed the diagnosis(es). . ? Starting Sheet Tank Operator Final DIAGNOSIS Normal Negative for Intraepithelial Lesion or Malignancy (NILM). For consensus guidelines for the management of cervical cancer screening test results, please see: ?? http://www.asccp.o rg . Electronically signed by: ??Supriya REYNOSO(ASCP)Coleen Verified: ??03/17/2017 ?Sole Buffer Performed at: ??-[facility] Dept. of Pathology, [place], [place] HPV RESULTS HPV16 (Result) ?Negative HPV18 (Result) ?Negative HPVOHR (Result) ? Negative HPV (Interpretation) ?See Below HPV (Interpretation) Text: NEGATIVE for high-risk HPV *. *Testing negative for high risk HPV means that the specimen is negative for the following 14 types tested: types 16, 18, 31, 33, 35, 39, 45, 51, 52, 56, 58, 59, 66, and 68. The test is not intended to detect low risk HPV types. Antonia kira HPV test Specimen: HPV Testing - Cytology Liquid Based Prep The Antonia kira ? HPV test was validated, performed and results reported through the Laboratory for Clinical Genomics and Advanced Technology (CGAT) at [facility]. ? - Marvin Lorenzana, PhD, [facility], Director-[facility] STATEMENT OF ADEQUACY Specimen submitted is satisfactory. Endocervical component present. CLINICAL INFORMATION HPV Option: ?Concurrent HPV and Pap Preparation: ? Liquid based Pap Specimen Source: ? Cervical/Endocervi loni LMP: ? n/a Hormones?: ? Yes Hysterectomy?: ? No ?: ? No ?: ? No I.U.D.?: ? No Pelvic Radiation: ?No Prior BUNDLER Therapy?: ?No Hist Abnl Pap/Biopsy?: ?? No Hist of HPV Vaccine?: ?No Hist of Smoking?: ?No Hist of NIKHIL exposure?: ?? No ICD Diagnosis: ? Z12.4 Encounter for screening for malignant neoplasm of cervix Clinical Data, Significant Therapy and Clinical Impression ?? : . CLINICAL INFORMATION ?_ This Pap Test has been evaluated with the assistance of the [employer] Pap Test Imaging System. Note: The Pap test is a screening test for cervical cancer with an inherent false-negative rate dependent upon several variables. ??For further information please contact the [facility] Laboratory. Reference: ??Amanda CS. ??Business Banking Manager of Pap Smear Results. ??In: ??Barbara BS, [facility], ed. ??The Pap Smear. ??[place]: ??Mendoza, 2002: ??71-77. [facility] 03/05/2017 9:28 AM EST Rosalva Cardenas TOOL STRAIGHTENER PATHOLOGY/CYTOLOGY O RDERABLES [facility] [place] [address] * (ABNORMAL) Lipid Panel (03/05/2017 8:17 AM EST) Chol, Total 166 <=239 mg/dL [facility] Triglycerides 309(H) <=199 mg/dL [facility] HDL 32(L) >=40 mg/dL [facility] LDL Cholesterol 72 <=190 mg/dL [facility] Chol/HDL Ratio 5.2 ratio [facility] Lipid Interpretation See Note [facility] Comment: Lipid management should be guided by a patient? s ASCVD risk, goals and preferences. ACC/AHA Guidelines recommend high intensity statin if clinical ASCVD or LDL greater than or equal to 190 mg/dL. http://Siftit.com/EZH-XWT-Ikarrfbdg Adults aged 40-75 with LDL 70-189 mg/dL should have their 10 year ASCVD risk estimated with the ACC/AHA ASCVD risk director of student aid http://tools.acc.org/NEOSW-Bkhv-Seaombtgk/ Statin should be discussed if risk greater than or equal to 7.5% in non-diabetics. With diabetes, moderate intensity statin is recommended if risk less than 7.5%, high intensity if risk greater than or equal to 7.5%. Annual lipid monitoring on statins is not necessary. Evaluate secondary causes of Triglycerides greater than 500 mg/dL or LDL greater than 190 mg/dL: See table 6 of ACC/AHA Guideline. Lifestyle modification is a critical component of ASCVD risk reduction. Blood specimen (specimen) 03/05/2017 8:17 AM EST 03/05/2017 9:57 AM EST Narrative Resulting Agency Comment Spec In Lab Pita Narayanan MD CHEMISTRY ORDERABLES Performing Organization Address City/[facility]/ZIP Co de Phone Number [facility] [place] [address] * HIV (05/29/2011 12:38 PM EST) HIV 1/2 Ab Negative [facility] Blood specimen (specimen) 05/29/2011 12:38 PM EST 05/29/2011 12:40 PM EST Marilyn Reilly MD IMMUNOLOGY ORDERAB [facility] from Last 3 Months or Most Recently Relevant to Health Maintenance Advance Directives * Full Code (Latest Code Status on File) Date Activated Date Inactivated Comments 12/18/2011 7:24 PM 12/21/2011 1:54 PM Question Answer Comments Order Status: Initial Order Does patient have decision m aking capacity? Yes, Order is based on Patients wishes. * Full Code Date Activated Date Inactivated Comments 12/18/2011 10:53 AM 12/18/2011 7:07 PM Question Answer Comments Order Status: Initial Order Does patient have decision m aking capacity? Yes, Order is based on Patients wishes.
--- OUTSIDE RECORDS SUMMARY | 2023-10-28 21:38 | XMS_ITS | Encounter Summary ---
Author Organization [facility] [place] [address] Care Team Providers Care Magnetic Tape Winder Name Role Phone Carlos Alberto Ag MD Primary Care Provider Encounter Details Date Type Department Care Team (Late st Contact Info) Description 12/14/2018 Telephone [place] [id number] Sofia Fritz Social History Tobacco Use Types Packs/Day Years [...] encounter Miscellaneous Notes * Telephone Encounter - Sofia Fritz - 12/14/2018 10:47 AM EDT Left VM to reschedule appt from 12/07/18 documented in this encounter Plan of Treatment Not on file documented as of this encounter Visit Diagnoses Not on filedocumented in this encounter Care Teams Magnetic Tape Winder Relationship Specialty Start Date End Date Carlos Alberto Ag MD [facility] [place] [place] [address] PCP - General General Internal Medicine 04/26/17 10/31/19 documented as of this encounter
--- OUTSIDE RECORDS SUMMARY | 2023-10-28 21:39 | XMS_ITS | Encounter Summary ---
Author Organization [facility] [place] [place] [address] Care Team Providers Care Executive Community Planning Name Role Phone Pita Narayanan MD Primary Care Provider [phone] Reason for Visit * Reason Comments Gynecologic Exam Encounter Details Date Type Department Care Team ([facility] Contact Info) Description 03/05/2017 9:00 AM EST Office Visit Internal Medicine at [facility] [address] [place] [address] Rosalva Cardenas, [facility] [place] [address] Encounter for screening for cervical cancer Social History Tobacco Use Types Packs/Day Years [...] Sign Reading Time Taken Comments Blood Pressure 122/78 03/05/2017 8:57 AM EST Pulse 82 03/05/2017 8:57 AM EST Temperature 36.7 ??C (98 ??F) 03/05/2017 8:57 AM EST Respiratory Rate 16 03/05/2017 8:57 AM EST Oxygen Saturation 99% 03/05/2017 8:57 AM EST Inhaled Oxygen Concentration - - Weight 108 kg (238 lb) 03/05/2017 8:57 AM EST Height 165 cm (5' 4.96) 03/05/2017 8:57 AM EST Body Mass Index 39.65 03/05/2017 8:57 AM EST documented in this encounter Progress Notes * Rosalva Cardenas APRN - 03/05/2017 9:00 AM EST Subjective: Patient ID: Sarah Moncada is a 36 y.o. female. Chief Complaint Patient presents with ??? 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 She is on the DepoProvera injection No bleeding at all. Pap-05/29/2011 WNL No history of abnl paps Has not been sexually active for >1 year Allergies Allergen Reactions ??? Red Blood Cells Antibodies-Difficult to Crossmatch DO NOT REMOVE Please contact the Blood Bank at [phone] for questions. Outpatient Prescriptions Marked as Taking for the 03/05/17 encounter (Office Visit) with Rosalva Cardenas APRN Medication Sig Dispense Refill ??? APPLE CIDER VINEGAR ORAL Take 1 each by mouth daily. ??? venlafaxine (EFFEXOR-XR) 75 mg Capsule, Sust. Release 24 hr Take 3 capsules by mouth daily. Dose change 01/29/17 180 capsule 5 ??? metFORMIN (GLUCOPHAGE-XR) 500 mg Tablet Sustained Release 24 hr Take 3 tablets by mouth daily. Dose change 01/29/17 270 tablet 3 ??? Syringe with Needle, Safety (EASY TOUCH FLIPLOCK SYRINGE) 1 mL 25 gauge x 1 Syringe For use with depo provera IM injections 10 Syringe 2 ??? medroxyPROGESTERone (DEPO-PROVERA) 150 mg/mL Suspension Inject 1 mL into the muscle Q 3 Months.1 mL 3 ??? omeprazole (PRILOSEC) 20 mg Capsule, Delayed Release(E.C.) Take 1 capsule by mouth daily. For mail order 90 capsule 3 ??? lisinopril (PRINIVIL;ZESTRIL) 10 mg Tablet Take 1 tablet by mouth daily. For mail order 90 tablet 3 ??? MULTI-VITAMIN ORAL Take by mouth daily. Current Facility-Administered Medications for the 03/05/17 encounter (Office Visit) with Rosalva Cardenas APRN Medication Dose Route Frequency Provider Last Rate Last Dose ??? medroxyPROGESTERone (DEPO-SUBQ PROVERA) injection 104 mg 104 mg Subcutaneous Q 3 Months Pita Narayanan MD 104 mg at 05/11/16 1011 Review of Systems Gastrointestinal: Negative for diarrhea, nausea and vomiting. Genitourinary: Negative for dysuria, flank pain, frequency, hematuria, menstrual problem, pelvic pain and vaginal pain. Objective: BP 122/78 (BP Location (NBP): Left arm, Patient Position: Sitting, BP Cuff Sizes: Large Adult (32-43 cm)) Pulse 82 Temp 36.7 ??C (98 ??F) (Oral) Resp 16 Ht 165 cm (5' 4.96) Wt (!) 108 kg (238 lb) SpO2 99% BMI 39.65 kg/m2 Patient reported measures: Pain:3 Physical Health:Good Fall: PHQ-9 QUESTIONNAIRE SCORE ONLY (AMB) 03/05/2017 PHQ - 9 Score (Clinic) 9 (Mild Depression) PHQ - 9 Score (Patient) - Some recent data might be hidden Wt Readings from Last 3 Encounters: 03/05/17 (!) 108 kg (238 lb) 01/29/17 (!) 109 kg (240 lb 6.4 oz) 08/20/16 (!) 111.1 kg (245 lb) Physical Exam Gen'l- NAD, Well-nourished, well-groomed Psychiatric-nl mood, appropriate affect HEENT- Head normocephalic Neck-supple, nl ROM, non-tender, no adneopathy Thryoid-no enlargment, non-tender, no masses Pulmonary-nl respiratory effort without any accessory muscle use, no chest tenderness to percussion, nl breath sounds, no wheezes, no rales Breast Exam-nl bilat, no skin changes, no nipple d/c, no masses Cardiovascular- RRR, nl PMI, no S1 or S2, no murmurs, rubs, gallop, carotids 2+/= Abdomen-+BS all 4 quadrants, non-tender, no increased L or S Pelvic-vulva nl, nl hair distribution, nl labia, no lesions, vagina with nl rugae, nl physiologic d/c, cervix-closed, non-tender, no d/c, Uterus-nl size, mobile, A/V, non-tender Adnexa- no masses palpable. PAP TAKEN Assessment and Plan: Sarah was seen today for gynecologic exam. Diagnoses and all orders for this visit: Encounter for screening for cervical cancer - Cytopathology Gynecological Pap taken documented in this encounter Plan of Treatment Not on file documented as of this encounter Procedures Procedure Name Priority Date/Time Associated Diagnosis Comments HPV Routine 03/05/2017 9:28 AM EST PLANNING SUPERVISOR CYTOLOGY INTERPRETATION Routine 03/05/2017 9:28 AM EST PLANNING SUPERVISOR CYTOLOGY FINAL REPORT Routine 03/05/2017 9:28 AM EST CYTOPATHOLOGY GYNECOLOGICAL Routine 03/05/2017 9:28 AM EST Encounter for screening for cervical cancer documented in this encounter Results * Enchilada Maker Cytology Final Report (03/05/2017 9:28 AM EST) Enchilada Maker Cytology Final Report [id number] ? Location: [facility] The signing pathologist has (i) examined the relevant preparation(s) for the specimen(s) and (ii) rendered or confirmed the diagnosis(es). . ? Enchilada Maker Final DIAGNOSIS Normal Negative for Intraepithelial Lesion or Malignancy (NILM). For consensus guidelines for the management of cervical cancer screening test results, please see: ?? [email or web address] . Electronically signed by: ??Supriya REYNOSO(ASCP)Coleen Verified: ??03/17/2017 ?Heat And Frost Insulator Performed at: ??-[facility] Dept. of Pathology, [place], [place] HPV RESULTS HPV16 (Result) ?Negative HPV18 [...] intended to detect low risk HPV types. Buru Buru kira HPV test Specimen: HPV Testing - Cytology Liquid Based Prep The Antonia kira ? HPV test was validated, performed and results reported through the Laboratory for Clinical Genomics and Advanced Technology (CGAT) at [facility]. ? - Marvin Lorenzana, PhD, [facility], Director-[facility] STATEMENT OF ADEQUACY Specimen submitted is satisfactory. Endocervical component present. CLINICAL INFORMATION HPV Option: ?Concurrent HPV and Pap Preparation: ? Liquid based Pap Specimen Source: ? Cervical/Endocervi loni LMP: ? n/a Hormones?: ? Yes Hysterectomy?: ? No ?: ? No ?: ? No I.U.D.?: ? No Pelvic Radiation: ?No Prior PLANNING SUPERVISOR Therapy?: ?No Hist Abnl Pap/Biopsy?: ?? No Hist of HPV Vaccine?: ?No Hist of Smoking?: ?No Hist of NIKHIL exposure?: ?? No ICD Diagnosis: ? Z12.4 Encounter for screening for malignant neoplasm of cervix Clinical Data, Significant Therapy and Clinical Impression ?? : . CLINICAL INFORMATION ?_ This Pap Test has been evaluated with the assistance of the TappInPrep Pap Test Imaging System. Note: The Pap test is a screening test for cervical cancer with an inherent false-negative rate dependent upon several variables. ??For further information please contact the [facility] Laboratory. Reference: ??Amanda CS. ??Finish Mender of Pap Smear Results. ??In: ??Barbara BS, [facility], ed. ??The Pap Smear. ??[place]: ??Mendoza, 2002: ??71-77. [facility] 03/05/2017 9:28 AM EST Rosalva L Beaupre SCREW MACHINE TENDER PATHOLOGY/CYTOLOGY O RDERABLES Performing Organization Address [facility] de Phone Number [facility] [place] [address] * PLANNING SUPERVISOR Cytology Interpretation (03/05/2017 9:28 AM EST) Enchilada Maker Cytology Interpretation [facility] Comment:Enchilada Maker Cytology Final R eport Endocervical Component Present [facility] AP Specimen 03/05/2017 9:28 AM EST 03/17/2017 6:12 PM EST Rosalva L Beaupre SCREW MACHINE TENDER PATHOLOGY/CYTOLOGY O RDERABLES Performing Organization Address [facility] Co de Phone Number [facility] [place] [address] * HPV (03/05/2017 9:28 AM EST) HPV 16 NEGATIVE NEGATIVE [facility] HPV 18 NEGATIVE NEGATIVE [facility] HPV Other HR NEGATIVE NEGATIVE [facility] HPV Interpretation See Comment [facility] Comment: NEGATIVE for high-risk HPV *. [...] Resulting Agency Comment Spec In Lab Rosalva L Beaupre SCREW MACHINE TENDER PATHOLOGY/CYTOLOGY O RDERABLES Performing Organization Address [facility] Co de Phone Number [facility] [place] [address] * Cytopathology Gynecological (03/05/2017 9:28 AM EST) AP Specimen 03/05/2017 9:28 AM EST 03/05/2017 1:28 PM EST Narrative [facility] - 03/05/2017 1:28 PM EST Specimen requisition ordered. ??Separate Pathology report to follow Resulting Agency Comment Spec In Lab Rosalva L Beaupre SCREW MACHINE TENDER PATHOLOGY/CYTOLOGY O RDERABLES Performing Organization Address City/[facility] Co de Phone Number [facility] [place] [address] documented in this encounter Visit Diagnoses Diagnosis Encounter for screening for cervical cancer documented in this encounter Care Teams Executive Community Planning Relationship Specialty Start Date End Date Pita Narayanan MD [facility] [address] [facility] [place] [address] PCP - General General Internal Medicine 01/28/1604/22 documented as of this encounter
--- OUTSIDE RECORDS SUMMARY | 2023-10-28 21:39 | XMS_ITS | Encounter Summary ---
Author Organization [facility] [place] [address] Care Team Providers Care Nursing Information Systems Coordinator Name Role Phone Pita Narayanan MD Primary Care Provider Encounter Details Date Type Department Care Team (Late st Contact Info) Description 01/26/2013 Telephone Internal Medicine at [facility] [address] [place] [address] Makenzie Rutledge CMA Social History Tobacco Use Types Packs/Day Years [...] encounter Miscellaneous Notes * Telephone Encounter - Makenzie Rutledge CMA - 01/26/2013 2:31 PM EDT Spoke with patient and reminded her of her appointment with Dr. Narayanan on WednesdayJanuary 30 at 8:40am. Patient was agreeable to making to this appointment. documented in this encounter Plan of Treatment Not on file documented as of this encounter Visit Diagnoses Not on filedocumented in this encounter Care Teams Nursing Information Systems Coordinator Relationship Specialty Start Date End Date Pita Narayanan MD [facility] [place] [address] PCP - General 12/01/12 04/21/15 documented as of this encounter
--- OUTSIDE RECORDS SUMMARY | 2023-10-28 21:39 | XMS_ITS | Encounter Summary ---
Author Organization [facility] [place] [address] Care Team Providers Care Telecommunications Project Manager Name Role Phone Pita Narayanan MD Primary Care Provider [phone] Reason for Visit * Reason Comments Follow-up * Consultation (Urgent) - Specialty Diagnoses / Procedures Referred By Contmak t Referred To Contact Primary Care Diagnoses Severe episode of recurrent major depressive disorder, without psychotic features Pita Narayanan MD [facility] [address] [facility] [place] [address] Psychiatric Internal Medicine [address] [place] [address] Referral ID Status Reason Start Date Expiration Date Visits Requested Visits Authorized [id number] Specialty Service Requested 04/29/2016 04/29/2017 1 1 Encounter Details Date Type Department Care Team ([facility] st Contact Info) Description 05/11/2016 9:00 AM EST Office Visit Internal Medicine at [facility] [address] [place] [phone] Karsten Morris MD [facility] [place] [address] Severe episode of recurrent major depressive disorder, [...] Sign Reading Time Taken Comments Blood Pressure 111/74 05/11/2016 8:51 AM EST Pulse 67 05/11/2016 8:51 AM EST Temperature - - Respiratory Rate 15 05/11/2016 8:51 AM EST Oxygen Saturation 100% 05/11/2016 8:51 AM EST Inhaled Oxygen Concentration - - Weight - - Height - - Body Mass Index - - documented in this encounter Patient Instructions * Patient Instructions* Karsten Morris MD - 05/11/2016 9:00 AM EST Venlafaxine ER 75mg - stay at this dose for a week longer - sleep and stomach should settle. - can then add 37.5mg if needed (goal is about 150mg a day - max is 300-350mg a day) - try melatonin for sleep 3 to 6mg (9mg is ok) Give chance with therapist at [facility] 3 - 5 visits. Follow-up with Dr. Gama 05/19/16 Strong does not mean doing it alone. documented in this encounter Progress Notes * Karsten Morris MD - 05/11/2016 9:00 AM EST REFERRAL SOURCE: Dr. Pita Narayanan. REASON FOR REFERRAL: Recent intensifying suicidal ideation and increasing PHQ-9 reflective of moderate to severe depression. LOCATION OF APPOINTMENT: [facility]. DURATION OF APPOINTMENT: 60 minutes. ADDITIONAL ATTENDEES: None. IDENTIFYING INFORMATION: Sarah is a 36-year-old twice- female with a history of depression and anxiety back to her high-school years. She has no inpatient psychiatric admissions, very limited outpatient psychiatric care mostly through her primary care providers, no history of suicide attempts, and indicates that she has never felt suicidal prior to this past year. No history of substance use disorder. She currently is employed at [employer], resides with her 2 children in [place], [place], and is insured through [employer]. CHIEF COMPLAINT: I've had depression since high school, but this is the first time I've felt suicidal and not wanting to be around my kids, which really scared me. HISTORY OF PRESENT ILLNESS: Sarah recently reestablished care with Dr. Narayanan at the [facility]. She had previously been seeing a primary care physician in [place], but was finding that her mental health needs exceeded the capacities of this clinic. She was being treated with Prozac and Wellbutrin, both at very low doses, but could not get in for followup visits. When she saw Dr. Narayanan on April 28 of this year her PHQ-9 was 22, with frequent suicidal thoughts. Sarah describes some pretty specific methods by which she could end her life including deep cuts to both of her arms. I'm not a dumb person, I know how to do it if I want to. She has never had suicidal thinking, never engaged in any self-harm, and these thoughts are ego dystonic and have been concerning to her. She states that this past year has been very stressful. She is from her , transitioned to a new housing environment. 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 Her 10-year-old daughter is going through hormonal changes and becoming more aware that her father and her sister's father both left us. At the most recent visit Dr. Narayanan started her on venlafaxine 37.5 mg, just recently increasing to 75 mg per day. She has noted that early on she was very fatigued by this medication, but has moved the dosing to her sleep time which has improved things. However, she is having significant upset stomach and nausea which is reducing her appetite and p.o. intake, but feels that these are manageable and that she is less irritable but still losing her temper frequently. I just feel alone and overwhelmed. She does report that her mood is notably better over the past 2 weeks. Her current PHQ-9 is 16, a reduction of 6 points, including a reduction in the frequency of suicidal thoughts. PSYCHIATRIC REVIEW OF SYSTEMS: She has no pervasive anxiety, no history of trauma or PTSD, no OCD, no hypomania or jason, no psychosis, paranoia or delusional thought, no history of an eating disorder. PAST PSYCHIATRIC HISTORY: 1. Inpatient admissions none. 2. Outpatient treatment none. She is connecting with [facility] Mc[facility] next week and her daughter is receiving care through them as well. 3. Previous medication trials. She recalls being on Prozac, Paxil, Lexapro, and Wellbutrin, each of them for less than 12 months at fairly low doses. I've been through depression before, but I tend to rebound pretty quickly and haven't needed to stay on medications. 4. Suicide history none. 5. Trauma and violence none. 6. Legal issues none. 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 ALLERGIES: Red blood cells. CURRENT MEDICATIONS: Venlafaxine 75 mg per day, lisinopril, multivitamin, metformin, omeprazole and ranitidine. SOCIAL HISTORY: Born in [place], raised in [place], youngest of 3 children from her mother and biological father. Her father was previously and had 4 children, 3 stepbrothers and 1 stepsister. Of note her 2 sisters have which is a tremendous loss for her. Her biological father when she was 5 due to throat and lung cancer. She has an overall positive and supportive relationship with both her mother and stepmother who are helpful with finances, emotional support and helping with her children on the weekends and vacations. Sarah has graduated from high school, completed 1 semester of college in an OT program. She has been twice, the first for 4 years and they remain in touch and have a good relationship. He has just moved to [place], is getting re-involved with the children which is overall positive but somewhat stressful on the family system. Her second marriage was for 3 years. This partner struggled with substance use, is currently not in their lives. Her 2 children are Barbara, age 10, and Torrie, age 4, whom she is very dedicated to. 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 She has been with them for 3 years. The shifting schedule is stressful. She works 6 p.m. to 6 a.m. on , Wednesday, Wednesday and every other weekend. This makes sleep fragmented and difficult, is often combined with caring for her children. 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 FAMILY PSYCHIATRIC HISTORY: Mother with depression. Multiple family members on both sides with alcohol use disorder. SUBSTANCE USE: She is a nonsmoker. With regard to alcohol, she states that she purchased a 24-pack of beer back in February and it is still half full. She does not use marijuana, opiates, and no other illicit substances. No history of IV drug use. MENTAL STATUS EXAM: Sarah is a healthy-appearing female casually dressed in a blue T-shirt and casual slacks. She is alert, good eye contact, no tics, tremors or abnormal movements. No tearfulness, lability, oddity or expansiveness of affect. Her thought process is linear and coherent. Speech is fluent and articulate. Her mood is described as overwhelmed, alone and depressed. Thought content endorses passive suicidal ideation with specific periods of intense specific planning to cut her wrists, but she has never come close to acting on this because of her connection with her children. I would have to sign over my kids to my parents. I know which website to go to, but I've never done that. I want to be there for them. No thought of harm to others. No auditory or visual hallucinations, paranoid delusions or referential thinking. Insight and judgment appear good and intact. ASSESSMENT: Sarah is a 36-year-old female currently with severe depression with suicidal ideation which is ego dystonic, and she is agreeable to seeking help. She is on Effexor with some nausea and disruption of sleep, but does feel that it is beginning to help with her mood. Her main difficulties are around being a single parent, working night shifts, feeling socially isolated, and I'm usually the strong one who takes care of myself. She is agreeable to attend counseling if Latasha Mcmullen has an appointment next week. She has been given all of the emergency planning numbers and remains in contact with her family, who checks in with her regularly and feels that there is good communication, good safety planning, and that she would be able to reach out for help if needed. Regarding medications will continue a slow, gentle titration of venlafaxine up to at least 150 mg per day with a maximal dose of 300 mg per day. For sleep she would like to trial melatonin which she feels comfortable with, but does not want to try any other prescribed medications. She has a followup appointment with Dr. Pita Narayanan on May 19. There is no set followup with this provider. I am happy to remain involved in guiding her care through Primary Care as long as this feels safe and adequate, otherwise will help refer her to the [facility] at , and I strongly encouraged her to stick with the therapy at [facility] as I think this will be extremely helpful to her. documented in this encounter Plan of Treatment Not on file documented as of this encounter Visit Diagnoses Diagnosis Severe episode of recurrent major depressive disorder, without psychotic features documented in this encounter Care Teams Telecommunications Project Manager Relationship Specialty Start Date End Date Pita Narayanan MD [facility] [place] [address] PCP - General General Internal Medicine 01/28/1604/22 documented as of this encounter
--- OUTSIDE RECORDS SUMMARY | 2023-10-28 21:39 | XMS_ITS | Encounter Summary ---
Author Organization [facility] Address [facility] [place] [address] Care Team Providers Care Vault Service Mechanic Name Role Phone Carlos Alberto Ag MD Primary Care Provider Reason for Referral * Consultation (Routine) - Closed Specialty Diagnoses / Procedures Referred By Contac t Referred To Contact Sleep Center Diagnoses Obstructive sleep apnea Carlos Alberto Ag MD [facility] [place] [address] [facility] Sleep Medicine [address] [place] [address] Referral ID Status Reason Start Date Expiration Date V isits Requested Visits Authorized [id number] Closed Specialty Service Requested 05/13/2017 05/13/2018 1 1 * Physical Therapy (Routine) - Closed Specialty Diagnoses / Procedures Referred By Contac t Referred To Contact Physical Therapy Diagnoses Chronic right hip pain Carlos Alberto Ag MD [facility] [place] [address] [facility] [address] [place] [address] Referral ID Status Reason Start Date Expiration Date V isits Requested Visits Authorized [id number] Closed Evaluate and Treat 05/13/2017 05/13/2018 1 1 Reason for Visit * Reason Comments Establish Care Encounter Details Date Type Department Care Team (Late st Contact Info) Description 05/13/2017 3:30 PM EST Office Visit Internal Medicine at [place] [address] Carlos Alberto Ag MD [facility] [place] [address] Type 2 diabetes mellitus without complication, without long-term current use of insulin (Primary Dx); Hypertension, unspecified type; Chronic right hip pain; Obstructive sleep apnea; Gastroesophageal reflux disease, esophagitis presence not specified; Depression, unspecified depression type Social History Tobacco [...] Sign Reading Time Taken Comments Blood Pressure 132/80 05/13/2017 3:22 PM EST Pulse 91 05/13/2017 3:22 PM EST Temperature 36.7 ??C (98 ??F) 05/13/2017 3:22 PM EST Respiratory Rate 18 05/13/2017 3:22 PM EST Oxygen Saturation 100% 05/13/2017 3:22 PM EST Inhaled Oxygen Concentration - - Weight 107.6 kg (237 lb 3.2 oz) 05/13/2017 3:22 PM EST Height 165 cm (5' 4.96) 05/13/2017 3:22 PM EST Body Mass Index 39.52 05/13/2017 3:22 PM EST documented in this encounter Patient Instructions * Patient Instructions* Carlos Alberto Ag MD - 05/13/2017 3:30 PM EST Continue venlafaxine at current dose Continue metformin for diabetes. We will recheck your hemoglobin A1c today. Reschedule your eye doctor appointment. Continue your lisinopril for high blood pressure. Referral for physical therapy sent Referral for sleep study sent Continue omeprazole for acid reflux Head to lab for blood work and urine test Return to clinic in 3 months documented in this encounter Progress Notes * Carlos Alberto Ag MD - 05/13/2017 3:30 PM EST Subjective: Patient ID: Sarah Moncada is a 37 y.o. female with a past medical history of depression, CADY, HTN, DM, GERD that presents today to establish care. Chief Complaint Patient presents with ??? Establish Care HPI: Patient would like to discuss diabetes, depression and right hip pain. Last A1c was 8.1% 08/2016. At that time metformin dose was increased to 1500 mg QD. Patient has alsochanged her diet habits. She has cut out energy drinks, only drinking 1 soda per day and is eating healthier snacks - more fruits and vegetables. She is on her feet all day at work and doesn't havemuch time for exercise outside of work and caring for her 2 daughters. She has seen ophthalmology before, but no regularly. She has an appointment scheduled on 05/17 that she needs to reschedule. Her depression symptoms are better since she was last seen 08/2016. She is taking venlafaxine 225 mgQD. She continues to have some anger issues. She finds pleasure in activities, namely spending timewith her daughters. She has some difficulty concentrating and tosses and turns at night, but thinks this might be due to untreated sleep apnea. No SI/HI. She has her mom as a support system who frequently helps out with the kids when she is at work or sleeping, as she works overnight. Patient has had some right sided hip pain for quite some time. Her pelvis is tipped. It notably hurts when she walks. She recently went to the chiropractor and had 4 table drops performed that made her pain worse. Patient says she was diagnosed with sleep apnea 6 years ago. She says that she was recently referred for a sleep study, but something happened and she was unable to make it. She is hoping to go back and have it reassessed. Patient has GERD and takes omeprazole 20 mg QD every morning. This controls her symptoms most of the time, but she has been having some symptoms lately. She drinks 1 cup of coffee in the mornings andhas 1 Dr Pepper and 1 green tea throughout the day. No tomatoes, spicy foods, chocolate or tobacco. Patient lives in [place], [place] with her 2 daughters. Her mother stays overnight when the patient is working. She works at [email or web address] in [place], [place]. PHQ-9 QUESTIONNAIRE (AMB) 05/13/2017 PHQ - 9 Score (Clinic) - PHQ - 9 Score (Patient) - Little interest or pleasure (Clinic) Not at all Little interest or pleasure (Patient) - Down, depressed, hopeless (Clinic) Several Days Down, depressed, hopeless (Patient) - Trouble sleeping (Clinic) - Trouble sleeping (Patient) - Tired or no energy (Clinic) - Tired or no energy (Patient) - Poor appetite or overeating (Clinic) - Poor appetite or overeating (Patient) - Feeling like a failure (Clinic) - Feeling like a failure (Patient) - Trouble concentrating (Clinic) - Trouble concentrating (Patient) - Moving or speaking slowly (Clinic) - Moving or speaking slowly (Patient) - Would be better off (Clinic) - Would be better off (Patient) - How difficult are the problems (Clinic) - Objective: BP 132/80 (BP Location (NBP): Left arm, Patient Position: Sitting, BP Cuff Sizes: Large Adult (32-43 cm)) Pulse 91 Temp 36.7 ??C (98 ??F) (Temporal) Resp 18 Ht 165 cm (5' 4.96) Wt 107.6 kg(237 lb 3.2 oz) SpO2 100% BMI 39.52 kg/m2 Patient reported measures: Pain:6 Physical Health:Good PHQ-9 QUESTIONNAIRE SCORE ONLY (AMB) 03/05/2017 PHQ - 9 Score (Clinic) 9 (Mild Depression) PHQ - 9 Score (Patient) - Some recent data might be hidden Wt Readings from Last 3 Encounters: 05/13/17 107.6 kg (237 lb 3.2 oz) 03/05/17 (!) 108 kg (238 lb) 01/29/17 (!) 109 kg (240 lb 6.4 oz) Physical Exam Gen: Obese female in NAD HEENT: NC/AT, sclera anicteric, tympanic membranes clear, OP clear, no thyromegaly, no LAD CV: RRR, no RMG Pulm: CTAB Abd: Obese abdomen, +bs, soft, nt/nd Ext: No peripheral edema, cyanosis or clubbing Skin: No rashes or lesions Neuro: AOx3, no gross deficits, normal gait Labs: Lab Results Component Value Date HA1C 8.1 (A) 08/20/2016 Lab Results Component Value Date CREATININE 0.72 05/11/2016 Lipid Panel Lab Results Component Value Date CHLPL 166 03/05/2017 HDL 32 (L) 03/05/2017 CHOLHDL 5.2 03/05/2017 TRIG 309 (H) 03/05/2017 LDLCHOL 72 03/05/2017 Assessment and Plan: Sarah Moncada was seen for annual exam. See plan as outlined below. #MDD -Symptoms well controlled -Continue venlfaxine 225 mg QD -Patient declined referral or resources for finding therapist. Prefers to find therapist on her ownif she decides to see someone #HTN -Well controlled -Continue lisinopril 10 mg QD -Check BMP today #DM2 -Continue metformin 1500 mg QD -Check HbA1c - if > 7, will increase metformin to 2000 mg QD -Check microalbumin today -Patient to reschedule ophtho appointment #CADY -Referral for sleep study #R hip pain -Most likely MSK related -Referral to PT #GERD -Increase omeprazole to 40 mg QD if symptoms consistently bothersome #HCM -Declines flu vaccine -Last pap smear 03/05 - negative for HPV Return to clinic in 3 months Carlos Alberto Ag MD #[id number] Health maintenance updated: Health Maintenance Topic Date Due ??? DM Hemoglobin A1c 11/20/2016 ??? DM Urine Microalbumin yearly 04/28/2017 ??? DM Opthalmology Exam 05/11/2017 ??? DM Creatinine yearly 05/11/2017 ??? Influenza (Flu) vaccine (1 of 1 - Influenza Standard Series) 02/04/2018 (Originally 12/18/2016) ??? PAP every 5 yrs 03/05/2022 ??? HPV test every 5 yrs 03/05/2022 ??? Lipid Screening 03/05/2022 ??? Tetanus vaccine 01/30/2023 ??? Pneumo Increased Risk Completed ??? Tdap adult Completed ??? HIV screen Completed * Cristofer, Jacqueline Xiao MD - 05/13/2017 3:30 PM EST The case was discussed at the time of the visit or immediately after the visit. The assessment and plan were formulated in discussion with me and I agree with them as documented. I have reviewed the history, physical exam, assessment and plan with the resident. 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 CADY-last study was 6 y ago was referred to sleep center by prev pcp however needs another referral today does not have a CPAP at home [id number] diet Not too bothered by her sx r sided hip pain-recent chiropractor-did not help suggested PT PHQ9 Questionnaires Data (Clinic and Pt Entered): Today's value PHQ-9 QUESTIONNAIRE (AMB) 05/13/2017 PHQ - 9 Score (Clinic) - PHQ - 9 Score (Patient) - Little interest or pleasure (Clinic) Not at all Little interest or pleasure (Patient) - Down, depressed, hopeless (Clinic) Several Days Down, depressed, hopeless (Patient) - Trouble sleeping (Clinic) - Trouble sleeping (Patient) - Tired or no energy (Clinic) - Tired or no energy (Patient) - Poor appetite or overeating (Clinic) - Poor appetite or overeating (Patient) - Feeling like a failure (Clinic) - Feeling like a failure (Patient) - Trouble concentrating (Clinic) - Trouble concentrating (Patient) - Moving or speaking slowly (Clinic) - Moving or speaking slowly (Patient) - Would be better off (Clinic) - Would be better off (Patient) - How difficult are the problems (Clinic) - PE BP 132/80 (BP Location (NBP): Left arm, Patient Position: Sitting, BP Cuff Sizes: Large Adult (32-43 cm)) Pulse 91 Temp 36.7 ??C (98 ??F) (Temporal) Resp 18 Ht 165 cm (5' 4.96) Wt 107.6 kg(237 lb 3.2 oz) SpO2 100% BMI 39.52 kg/m2 Per resident note A/P Dm-check hba1c today She is rescheduling her optho appt u micro htn-controlled check bmp on carlos eduardo BMI has lost some weight with lifestyle since her last visit CADY-refer to sleep center Mood cont effexor-doing better Not interested in CBT now Refer to PT Hm Declined flu shot She is rescheduling optho appt gerd increase ppi F/u 3m documented in this encounter Plan of Treatment Scheduled Referrals Name Type Priority Associated Diagnoses Orde r Schedule Referral to Physical Therapy Outpatient Referral Routine Chronic right hip pain Ordered: 05/13/2017 Referral to Sleep Disorders Center Outpatient Referral Routine Obstructive sleep apnea Ordered: 05/13/2017 documented as of this encounter Results * (ABNORMAL) Hemoglobin A1c (06/03/2017 9:44 AM EST) [facility] Signature Hemoglobin A1C 7.2(H) 4.3 - 5.6 % [facility] Comment: Reference Range: 4.3 - 5.6% 5.7 - 6.4% - Increased Risk of Developing Diabetes Mellitus >=6.5% - Consistent with diagnosis of Diabetes Mellitus In the absence of hyperglycemia (i.e. plasma glucose > 200 mg/dL) or classic symptoms of hyperglycemia a repeat measurement of HbA1c should be performed on a separate sample to confirm the diagnosis. Diagnosis and Classification of Diabetes Mellitus, Diabetes Care 2013; 36: Suppl. 1, S67-74 Est Avg Gluc 160 mg/dL [facility] Comment: eAG equivalents for HbA1c [...] into estimated average glucose values. ??Diabetes Care 2008:31(8):8447-8087. Blood specimen (specimen) 06/03/2017 9:44 AM EST 06/03/2017 9:51 AM EST Narrative Resulting Agency Comment Spec In Lab Jacqueline Cleveland MD CHEMISTRY ORDERABLES Performing Organization Address City/State/[facility] Co de Phone Number [facility] [place] [address] * (ABNORMAL) Basic Metabolic Panel (non-fasting) (06/03/2017 9:44 AM EST) Glucose Lvl 177 65 - 199 mg/dL [facility] Comment:Diabetes: >=200 mg/d L plus symptoms BUN 16 8 - 18 mg/dL [facility] Creatinine 0.68(L) 0.70 - 1.20 mg/dL [facility] Sodium 140 135 - 145 mmol/L [facility] Potassium 4.0 3.5 - 5.0 mmol/L [facility] Comment: Please note: ??Patients with WBC >100,000 may have falsely elevated Potassium levels. ??For accurate Potassium quantification in these patients send serum separator tube (gold top) for subsequent determinations. ??Contact the Clinical Chemistry Laboratory if there are any questions. Chloride 99 98 - 107 mmol/L [facility] CO2 27 22 - 31 mmol/L [facility] Anion Gap 14 5 - 15 mmol/L [facility] Calcium 9.0 8.5 - 10.5 mg/dL [facility] Estimated GFR >60 >=60 [facility] Comment: The reported eGFR should be multiplied by 1.2 for patients. The MDRD is not an appropriate measure of renal function for patients with body mass extremes or in patients with acute kidney failure. http://TravelPi/DHnkdep http://TravelPi/DHMCnkf Blood specimen (specimen) 06/03/2017 9:44 AM EST 06/03/2017 9:51 AM EST Narrative Resulting Agency Comment Spec In Lab Jacqueline Cleveland MD CHEMISTRY ORDERABLES [facility] [place] [id number] * U Albumin/Cre Ratio (06/03/2017 9:41 AM EST) Alb/Cr Ratio, Random Not Calculated 0 - 29 mcg/mg Cr [facility] Comment: Reference Ranges: <30 mcg/mg: [...] 362 U Albumin Conc, Random <3.0 mg/L [facility] U Creatinine 120 mg/dL [facility] Urine specimen (specimen) 06/03/2017 9:41 AM EST 06/03/2017 9:51 AM EST Narrative Resulting Agency Comment Spec In Lab Jacqueline Cleveland MD URINE ORDERABLES [facility] [place] [address] documented in this encounter Visit Diagnoses Diagnosis Type 2 diabetes mellitus without complication, without long-term current use of insulin- Primary Hypertension, unspecified type Chronic right hip pain Pain in joint, pelvic region and thigh Obstructive sleep apnea Obstructive sleep apnea (adult) (pediatric) Gastroesophageal reflux disease, esophagitis presence not specified Depression, unspecified depression type documented in this encounter Care Teams Vault Service Mechanic Relationship Specialty Start Date End Date Carlos Alberto Ag MD [facility] [address] PCP - General General Internal Medicine 04/26/17 10/31/19 documented as of this encounter
--- OUTSIDE RECORDS SUMMARY | 2023-10-28 21:39 | XMS_ITS | Encounter Summary ---
Author Organization [facility] [place] [address] Care Team Providers Care Director Of District Office Name Role Phone Pita Narayanan MD Primary Care Provider [phone] Reason for Referral * Consultation (Routine) - Specialty Diagnoses / Procedures Referred By Jay flores Referred To Contact Sleep Center Diagnoses Obstructive sleep apnea Pita Narayanan MD [facility] [place] [address] [facility] [address] [place] [address] Referral ID Status Reason Start Date Expiration Date Visits Requested Visits Authorized [id number] Specialty Service Requested 05/27/2016 05/27/2017 1 1 Reason for Visit * Reason Comments Follow-up discuss hip and slee ping at some point, currently more concerned about depression and sugars Encounter Details Date Type Department Care Team (Late st Contact Info) Description 05/27/2016 2:00 PM EST Office Visit Internal Medicine at [facility] [address] [place] [address] Pita Narayanan MD [facility] [place] [address] Major depressive disorder, recurrent episode, in partial remission; Uncontrolled type 2 diabetes mellitus without complication, without long-term current use of insulin; Obstructive sleep apnea; Menstrual disorder; Dyslipidemia; Healthcare maintenance Social History Tobacco Use Types Packs/Day Years [...] Sign Reading Time Taken Comments Blood Pressure 122/80 05/27/2016 1:56 PM EST mac evens Pulse 78 05/27/2016 1:56 PM EST Temperature 36.7 ??C (98 ??F) 05/27/2016 1:56 PM EST Respiratory Rate 16 05/27/2016 1:56 PM EST Oxygen Saturation 100% 05/27/2016 1:56 PM EST Inhaled Oxygen Concentration - - Weight 108.5 kg (239 lb 3.2 oz) 05/27/2016 1:56 PM EST Height - - Body Mass Index 39.66 04/28/2016 4:09 PM EST documented in this encounter Patient Instructions * Patient Instructions* Pita Narayanan MD - 05/27/2016 2:00 PM EST Sarah was seen today for follow-up . Diagnoses and all orders for this visit: Major depressive disorder, recurrent episode, in partial remission --increase the venlafaxine to 112.5 mg per day (75 + 37.5) for a month --phone follow up then to see how you are doing. Let us know sooner if you are having problems on this dose Reschedule your cancelled Latasha Mcmullen appt. Uncontrolled type 2 diabetes mellitus without complication, without long-term current use of insulin --continue current medications --fasting labs due before next visit with me. Will mail the lab slip. Get at [place] in the week before the visit Fasting labs: 12 hour fast, water is OK to drink during that time. Obstructive sleep apnea - Referral to [facility] Menstrual disorder - medroxyPROGESTERone (DEPO-SUBQ PROVERA) 104 mg/0.65 mL Syringe; Inject 0.65 mLs subcutaneously Q 3 Months. Sent to your pharmacy. This should be covered Based on last injection date of 05/11/16 the next time due is between July 27 and August 10 Subcutaneous dosage (e.g., medroxyprogesterone acetate 104 mg/0.65 mL depot injection, Depo-subQ Provera 104 Injection): Adult and Adolescent females: 104 mg (using 104 mg/0.65 mL prefilled syringe) subcutaneously into the anterior thigh or abdomen every 3 months. For subsequent subcutaneous doses, if more than 14 weeks have passed, determine the patient is not before dosing. Return visit in 2 months, or sooner as needed documented in this encounter Progress Notes * Pita Narayanan MD - 05/27/2016 2:00 PM EST Here to follow up depression Re-est care last month Very depressed, had SI. She was to get connected with Latasha Mcmullen She had an urgent consult with Dr Morris last month about this which is much appreciated We started venlafaxine 37.5 mg-->75 mg Her phq was 22 and improved to 16 as of time of visit with him last month He said the med could go up to 150, with slow up titration, if needed. Mood sx better Some days harder than others Taking venlafaxine at night. Makes her tired if takes during day. Her appetite went down some and had some stomach upset. This has been better. Was a fight to keep eating for a time. 3rd day straight of feeling down this week Advised that 75 mg is low dose. Higher doses can raise BP delfino try 112.5 for next few weeks and see how she does Latasha Mcmullen Made appt and did not get to it. She had another conflict and could not make it Has to reschedule The drum worker called her No SI reported today That improved about 1-2 weeks ago. Sleep is variable yest wanted to sleep during day and then had trouble during the day. She has some melatonin/ has 3 mg pills. Still frequent contact with mother or stepfather for support Some people have said she appears more herself. Mother seems reassured. Has been able to work on cleaning things that had piled up in her house. #Wants to work on her sleep Has CADY. Lost to f/u. --last with was 2010 for visit and CPAP titration Would like referral here First sleep study was at [facility] Could not tolerate with , felt suffocating. Has daytime sleepiness. Is more of a night person anyway. 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 No near misses. #DM Had last full labs 10/02. Scanned in chart. This is from prior PCP A1c 7.5% then Is tolerating the metformin OK Lipids 10/02: 154/27/347/58 Discussed low HDL and high TG CMP 10/02 was OK We got BMP last month and it was OK Discussed HBV vaccine series May have had in past. We have evidence of 1 vaccine from 2003 Has only a HBV SAg and not surface antibody. Will check this with next labs #menstrual d/o Wants to get the depo provera for home visit due to distance she lives from here Reviewed dosing Vt medicaid covers this per their on line formulary Next is due 07/27 to 08/10 based on Depo calendar I have If >14 weeks since last injection needs UPT I think she is using this for menstrual mgmt Subcutaneous Administration: Depo-subQ provera 104 Contraceptive injection suspension ONLY: ?? For subcutaneous (SC) administration only, NEVER administer intramuscularly (IM) or intravenously (IV). ?? Instruct patient on risks and warnings associated with hormonal contraceptives (see Patient Information). ?? Shake vigorously for at least 1 minute immediately before administration. ?? Inject the entire contents of the prefilled medroxyprogesterone syringe SC into the anterior thigh or abdomen, avoiding jessica areas and the umbilicus. Gently grasp and squeeze a large areas of skin in the chosen injection area ensuring that the skin is pulled away from the body. Insert the needle at a 45 degree angle. Inject the medication until the syringe is empty; this usually requires 5--7seconds. Following administration, press lightly on the injection site with a clean cotton pad for a few seconds; do not rub the area. ROS: purple sheet reviewed. 3/10 avg pain, no balance concerns, mood concerns noted PHQ9 Questionnaires Data (Clinic and Pt Entered): Today's value was not recorded PHQ9 Questionnaires Data (Clinic and Pt Entered): Today's value PHQ-9 QUESTIONNAIRE (AMB) 05/27/2016 PHQ - 9 Score (Clinic) 8 (Mild Depression) PHQ - 9 Score (Patient) - Little interest or pleasure (Clinic) Several Days Little interest or pleasure (Patient) - Down, depressed, hopeless (Clinic) Several Days Down, depressed, hopeless (Patient) - Trouble sleeping (Clinic) More than half the days Trouble sleeping (Patient) - Tired or no energy (Clinic) More than half the days Tired or no energy (Patient) - Poor appetite or overeating (Clinic) Several days Poor appetite or overeating (Patient) - Feeling like a failure (Clinic) Several Days Feeling like a failure (Patient) - Trouble concentrating (Clinic) Not at all Trouble concentrating (Patient) - Moving or speaking slowly (Clinic) Not at all Moving or speaking slowly (Patient) - Would be better off (Clinic) Not at all Would be better off (Patient) - How difficult are the problems (Clinic) Somewhat difficult Exam VS+3 noted. BP 122/80 (BP Location (NBP): Left arm, Patient Position: Sitting, BP Cuff Sizes: Large Adult (32-43 cm)) Comment: machine Pulse 78 Temp 36.7 ??C (98 ??F) (Oral) Resp 16 Wt (!) 108.5 kg (239 lb 3.2 oz) SpO2 100% BMI 39.66 kg/m2 Wt down 5 lbs from last visit Alert, NAD, looks usual self. Affect a little brighter today Eyelid edema/scale is better vs last visit. Rest of exam deferred A/P Patient Instructions--modified from AVS Sarah was seen today for follow-up . Diagnoses and all orders for this visit: Major depressive disorder, recurrent episode, in partial remission Doing better. Tolerating med. BP not elevated. Greatly appreciate consult from Dr Morris --increase the venlafaxine to 112.5 mg per day (75 + 37.5) for a month --phone follow up then to see how you are doing. Let us know sooner if you are having problems on this dose Reschedule your cancelled Latasha Mcmullen appt. Uncontrolled type 2 diabetes mellitus without complication, without long-term current use of insulin Dyslipidemia --continue current medications --fasting labs due before next visit with me. Will mail the lab slip. Get at [place] in the week before the visit. FLP due. Rest up to date. Can do A1c in office Fasting labs: 12 hour fast, water is OK to drink during that time. -check HBV SAb with these labs to see if her prior vaccines were effctive Obstructive sleep apnea - Referral to [facility] at to re-est care. Agree that getting her CADY treated will help with sleep and will likely help with mood Menstrual disorder - medroxyPROGESTERone (DEPO-SUBQ PROVERA) 104 mg/0.65 mL Syringe; Inject 0.65 mLs subcutaneously Q 3 Months. Sent to your pharmacy. This should be covered Based on last injection date of 05/11/16 the next time due is between July 27 and August 10 Subcutaneous dosage (e.g., medroxyprogesterone acetate 104 mg/0.65 mL depot injection, Depo-subQ Provera 104 Injection): Adult and Adolescent females: 104 mg (using 104 mg/0.65 mL prefilled syringe) subcutaneously into the anterior thigh or abdomen every 3 months. For subsequent subcutaneous doses, if more than 14 weeks have passed, determine the patient is not before dosing. Phone f/u 1 month Return visit in 2 months, or sooner as needed documented in this encounter Plan of Treatment Scheduled Referrals Name Type Priority Associated Diagnoses Orde r Schedule Referral to [facility] Disorders Center Outpatient Referral Routine Obstructive sleep apnea Ordered: 05/27/2016 documented as of this encounter Results * Hepatitis B Surface Antibody (03/05/2017 8:17 AM EST) HepB Surface Ab Quant <3.5 IU/L [facility] Comment: HepB Surface Ab Quant: Unvaccinated: < 8.5 IU/L Vaccinated: > 11.5 IU/L HepB Surface Ab Negative [facility] Comment: Patient is presumed to be not vaccinated or immune to HBV infection. Expected Results: Vaccinated: Positive Unvaccinated: Negative Blood specimen (specimen) 03/05/2017 8:17 AM EST 03/05/2017 9:56 AM EST Narrative Resulting Agency Comment Spec In Lab Pita Narayanan MD IMMUNOLOGY ORDERABLE S Performing Organization Address City/[facility]/ZIP Co de Phone Number [facility] [place] [address] * (ABNORMAL) Lipid Panel (03/05/2017 8:17 AM EST) Chol, Total 166 <=239 mg/dL [facility] Triglycerides 309(H) <=199 mg/dL [facility] HDL 32(L) >=40 mg/dL [facility] LDL Cholesterol 72 <=190 mg/dL [facility] Chol/HDL Ratio 5.2 ratio [facility] Lipid Interpretation See Note [facility] Comment: Lipid management should be guided by a patient? s ASCVD risk, goals and preferences. ACC/AHA Guidelines recommend high intensity statin if clinical ASCVD or LDL greater than or equal to 190 mg/dL. [email or web address] Adults aged 40-75 with LDL 70-189 mg/dL should have their 10 year ASCVD risk estimated with the ACC/AHA ASCVD risk cost estimator http://tools.acc.org/KSGYE-Teyr-Zaxklmslg/ Statin should be discussed if risk greater [...] Narayanan MD CHEMISTRY ORDERABLES Performing Organization Address City/[facility]/ZIP Co de Phone Number [facility] [place] [address] documented in this encounter Visit Diagnoses Diagnosis Major depressive disorder, recurrent episode, in partial remission Major depressive disorder, recurrent episode, in partial or unspecified remission Uncontrolled type 2 diabetes mellitus without complication, without long-term current use of insulin Obstructive sleep apnea Obstructive sleep apnea (adult) (pediatric) Menstrual disorder Unspecified disorder of menstruation and other abnormal bleeding from female genital tract Dyslipidemia Other and unspecified hyperlipidemia Healthcare maintenance Routine general medical examination at a health care facility documented in this encounter Care Teams Director Of District Office Relationship Specialty Start Date End Date Pita Narayanan MD [facility] [address] [facility] [place] [address] PCP - General General Internal Medicine 01/28/1604/22 documented as of this encounter
--- OUTSIDE RECORDS SUMMARY | 2023-10-28 21:39 | XMS_ITS | Encounter Summary ---
Author Organization Formerly [facility] [place] [address] Care Team Providers Care Cash Reconciliation Specialist Name Role Phone Pita Narayanan MD Primary Care Provider [phone] Reason for Visit * Reason Comments Follow-up Pt states she has be en having issues in regards to her anti-depressant medication in the last few weeks. Encounter Details Date Type Department Care Team (Latest Contact Info) Description 01/29/2017 1:30 PM EDT Office Visit Internal Medicine at [address] [id number] [place] [address] Depression, unspecified depression type; Anxiety; Uncontrolled type 2 diabetes mellitus without complication, without long-term current use of insulin; Encounter for contraceptive management, unspecified type Social History Tobacco Use Types Packs/Day [...] Sign Reading Time Taken Comments Blood Pressure 120/74 01/29/2017 1:32 PM EDT Pulse 89 01/29/2017 1:32 PM EDT Temperature 36.6 ??C (97.8 ??F) 01/29/2017 1:32 PM ED T Respiratory Rate 17 01/29/2017 1:32 PM EDT Oxygen Saturation 98% 01/29/2017 1:32 PM EDT Inhaled Oxygen Concentration - - Weight 109 kg (240 lb 6.4 oz) 01/29/2017 1:32 PM EDT Height - - Body Mass Index 40.25 08/20/2016 2:30 PM EDT documented in this encounter Patient Instructions * Patient Instructions* Pita Narayanan MD - 01/29/2017 1:30 PM EDT Sarah was seen today for follow-up . Diagnoses and all orders for this visit: Uncontrolled type 2 diabetes mellitus without complication, without long-term current use of insulin - POCT glycated hemoglobin, total (HA1C) - metFORMIN (GLUCOPHAGE-XR) 500 mg Tablet Sustained Release 24 hr; Take 3 tablets by mouth daily. Dose change 01/29/17 Last 3 Hemoglobin A1Cs 8.0% today Lab Results Component Value Date HA1C 8.1 (A) 08/20/2016 HA1C 8.0 (A) 04/28/2016 HA1C 7.5 (EXTERNAL/ABN) 09/18/2015 Increase metformin to 1500 mg/day Keep working on healthier diet Can reassess in 3 months. Depression, unspecified depression type Anxiety - venlafaxine (EFFEXOR-XR) 75 mg Capsule, Sust. Release 24 hr; Take 3 capsules by mouth daily. Dosechange 01/29/17 Agree with intake/counseling for help with behavioral approach to your symptoms Will ask team nurse to call you in a month to check on response to this dose increase Encounter for contraceptive management, unspecified type - Syringe with Needle, Safety (EASY TOUCH FLIPLOCK SYRINGE) 1 mL 25 gauge x 1 Syringe; For use with depo provera IM injections If this is not appropriate for the depo provera IM (please check with pharmacist), find out what gauge and length of needle you need for the 1 ml syringe See attached Depo calendar Next due 04/04 to 04/18 Return in near future (in next month or so for Pap visit) documented in this encounter Progress Notes * Pita Narayanan MD - 01/29/2017 1:30 PM EDT Here for f/u DM Mood issues Seen 5 months ago Was to have 3 month f/u but she cx and resched to now Chart reviewed--no interval visits since then #depression Re-est care with me in Apr Has had consult with Dr Morris On venlafaxine and going up on doses. At visit in August, increased to 150 mg/day. Had tapered off bupropion in Apr with change in venlafaxine Was to have engaged with Latasha Mcmullen for therapy. Had a blowup with her oldest child this week Same things--life stressors. Needs break from kids. Mother watches them when she is working Not able to be social with her friends Feels guilty asking her mother for more help given the amt of help she is providing already Pt is single parent. Fathers of each child are not a source of support on this. Pt works the beginning of the week now Has not brought kids down to her mother's house for an overnight Her mother was there when this happened Feeling not level. phq9 is 14 today, stable from August. Scores are below. Was going to start with therapy, but never got in To re-do intake with Latasha Mcmullen Both girls in therapy now. Mother offered to take the kids so she can do something on her own Feels strange to her being by herself--still stressful, not a respite Trying to use the day for herself but still has family issues to be responsible for, eg always worried about what to do for dinner that night She has sole custody of both children The oldest father lives in [place] Youngest father needs supervised visits. The venlafaxine increase felt was helpful at first, but having issues This is a recurring theme over the time I have known her. meds of only temporary effect Will sleep when does not have to be up Wants to be in bed much of the time Just paying bills is overwhelming Her finances are better Other stressors are now getting to her Having trouble getting along with her kids-- 11 and 5 Yelling/screaming bothers her Someone who helped with them before yelled at them. With recent blow-up with her oldest child-- She was close to leaving the house Was not able to calm down in situation Had been in a good mood just before this Then just snapped When met Dr Morris in Apr, was still early and titrated up the venlafaxine. Discussed behavioral techniques for helping her respond to these acutely stressful situations For her older daughter--Relaxation , centering techniques are being discussed with her therapist Has not thought about for herself Has not had to deal with this much in past Is a control robert Takes deep breath and thinks about situation that is overwhelming her, and this has helped her in past Now this technique is not working for her Is not comfort eating. May eat if bored Not that much into eating Her kids comfort eat Is not smoking or drinking etoh. She has told her oldest's child's therapist about the home situation There are other issues this child is dealing with too ?single parenting support groups Discussed chat lines--finds would not be helpful Discussed having her take her up on her mother's offer for more help Working on getting the house organized Advised I don't have a lot more ideas--I think she really needs to get therapy for herself on this. Willing to go up on the venlafaxine to 225 mg. Has been on SSRI's and bupropion in past. #HM Declines a flu shot today. Says has gotten ill with them in past. Is overdue for pap--no time today; will need to come back Health Maintenance Topic Date Due ??? Pap smear every 3 yrs 05/29/2014 ??? DM Hemoglobin A1c 11/20/2016 ??? Influenza (Flu) vaccine (1 of 1 - Influenza Standard Series) 02/04/2018 (Originally 12/18/2016) ??? DM Urine Microalbumin yearly 04/28/2017 ??? DM Opthalmology Exam 05/11/2017 ??? DM Creatinine yearly 05/11/2017 ??? Lipid Screening 09/17/2020 ??? Tetanus vaccine 01/30/2023 ??? Pneumo Increased Risk Completed ??? Tdap adult Completed ??? HIV screen Completed #DM A1c is stable at 8.0% today. Has been eating better, cutting out energy drinks, and down to just 1 soda /day Tolerating the metformin XR once a day. Is not missing doses Would be willing to go up to 1500 once a day. Wt Readings from Last 3 Encounters: 01/29/17 (!) 109 kg (240 lb 6.4 oz) 08/20/16 (!) 111.1 kg (245 lb) 05/27/16 (!) 108.5 kg (239 lb 3.2 oz) Feet scaly on exam Says is eczema and not tinea. Says this is a longstanding problem. Worse in winter Sensitive to soaps Not itching or burning #depo issue Switched from [facility] to [facility] Having trouble with this. Can't get the 104 mg dose any more at [facility]. Has to use the 150 mg dose. Needs more syringes. This is IM shot. (the 104 was SC) Also unclear of dates. Can't seem to find appropriate depo calendar on line Last shot was 01/17. Usually every 13 weeks. ROS: purple sheet reviewed. No pain, no balance concerns, mood concerns discussed PHQ9 Questionnaires Data (Clinic and Pt Entered): Today's value PHQ-9 QUESTIONNAIRE (AMB) 01/29/2017 PHQ - 9 Score (Clinic) 14 (Moderate Depression) PHQ - 9 Score (Patient) - Little interest or pleasure (Clinic) Several Days Little interest or pleasure (Patient) - Down, depressed, hopeless (Clinic) More than half the days Down, depressed, hopeless (Patient) - Trouble sleeping (Clinic) Nearly every day Trouble sleeping (Patient) - Tired or no energy (Clinic) More than half the days Tired or no energy (Patient) - Poor appetite or overeating (Clinic) Several days Poor appetite or overeating (Patient) - Feeling like a failure (Clinic) More than half the days Feeling like a failure (Patient) - Trouble concentrating (Clinic) More than half the days Trouble concentrating (Patient) - Moving or speaking slowly (Clinic) Not at all Moving or speaking slowly (Patient) - Would be better off (Clinic) Several Days Would be better off (Patient) - How difficult are the problems (Clinic) Very difficult--have discussed this before. Did not explicitly discussed today. Her SI were stronger when I saw her in April. PHQ9 Questionnaires Data (Clinic and Pt Entered): last 4 values of depression scores PHQ-9 QUESTIONNAIRE SCORE ONLY (Patient) 04/28/2016 PHQ - 9 Score (Patient) 22 (Severe Depression) PHQ-9 QUESTIONNAIRE SCORE ONLY (Clinic) 05/11/2016 05/27/2016 08/20/2016 01/29/2017 PHQ - 9 Score (Clinic) 16 (Moderately Severe Depression) 8 (Mild Depression) 14 (Moderate Depression) 14 (Moderate Depression) Some recent data might be hidden Did not do gad7 today Exam VS+3 noted. BP 120/74 (BP Location (NBP): Left arm, Patient Position: Sitting, BP Cuff Sizes: Large Adult (32-43 cm)) Pulse 89 Temp 36.6 ??C (97.8 ??F) (Oral) Resp 17 Wt (!) 109 kg (240 lb 6.4 oz) NhY081% BMI 40.25 kg/m2 Alert, looks usual self, flat affect, NAD Scale on feet noted; (discussed in HPI), includes around arch, heels, and toe spaces. No signs of 2ndry infection A/P Patient Instructions--modified from AVS Sarah was seen today for follow-up . Diagnoses and all orders for this visit: Uncontrolled type 2 diabetes mellitus without complication, without long-term current use of insulin - POCT glycated hemoglobin, total (HA1C) - metFORMIN (GLUCOPHAGE-XR) 500 mg Tablet Sustained Release 24 hr; Take 3 tablets by mouth daily. Dose change 01/29/17 Last 3 Hemoglobin A1Cs 8.0% today--stable for her. Goal is still to get <7.0. Willing to go up on the metformin. Current situational stressors/mood issues likely contributing to lack of improvement with her A1c Lab Results Component Value Date HA1C 8.1 (A) 08/20/2016 HA1C 8.0 (A) 04/28/2016 HA1C 7.5 (EXTERNAL/ABN) 09/18/2015 Increase metformin to 1500 mg/day Keep working on healthier diet Can reassess in 3 months. Depression, unspecified depression type Anxiety - venlafaxine (EFFEXOR-XR) 75 mg Capsule, Sust. Release 24 hr; Take 3 capsules by mouth daily. Dosechange 01/29/17 Agree with intake/counseling for help with behavioral approach to your symptoms--I feel therapy is an important part of her tx Will ask team nurse to call you in a month to check on response to this dose increase. Chronic stressors of being single parent. Getting help from her mother. Has offered to help more togive pt some respite. Addendum--I noted on external med rec after visit that a script for bupropion was dispensed on 10/11/16. This is from a script from 03/04 from her Matthew PCP. Just for 30 pills It is unclear if she was using it At visit in April we had talked about her tapering off this to go up on the venlafaxine. Will ask team nurse to f/u with her on this. Encounter for contraceptive management, unspecified type - Syringe with Needle, Safety (EASY TOUCH FLIPLOCK SYRINGE) 1 mL 25 gauge x 1 Syringe; For use with depo provera IM injections If this is not appropriate for the depo provera IM (please check with pharmacist), find out what gauge and length of needle you need for the 1 ml syringe See attached Depo calendar--copied for her the one we use in clinic. Next due 04/04 to 04/18 Return in near future (in next month or so for Pap visit) ADDENDUM: Pap visit set up with Rosalva Cardenas Set up chronic dz f/u with me for 3 months from now--f/u DM and depression RTC sooner prn * Karen Reyna - 01/29/2017 1:30 PM EDT All set for both appointments. Had to reschedule one with Rosalva, because patient had a field trip that day. 02/04 documented in this encounter Plan of Treatment Scheduled Orders Name Type Priority Associated Diagnoses Orde r Schedule POCT glycated hemoglobin, total (HA1C) Point of Care Testing Routine Uncontrolled type 2 diabetes mellitus without complication, without long-term current use of insulin Ordered: 01/29/2017 documented as of this encounter Visit Diagnoses Diagnosis Depression, unspecified depression type Anxiety Anxiety state, unspecified Uncontrolled type 2 diabetes mellitus without complication, without long-term current use of insulin Encounter for contraceptive management, unspecified type documented in this encounter Care Teams Cash Reconciliation Specialist Relationship Specialty Start Date End Date Pita Narayanan MD [facility] [address] [place] [address] PCP - General General Internal Medicine 01/28/1604/22 documented as of this encounter
--- OUTSIDE RECORDS SUMMARY | 2023-10-28 21:39 | XMS_ITS | Encounter Summary ---
Author Organization [facility] [place] [address] Care Team Providers Care Commissary Production Supervisor Name Role Phone Pita Narayanan MD Primary Care Provider [phone] Encounter Details Date Type Department Care Team (Late st Contact Info) Description 06/30/2016 Telephone Internal Medicine at [facility] [address] [place] [address] Pita Narayanan MD [facility] [place] [address] Social History Tobacco Use Types Packs/Day Years [...] encounter Miscellaneous Notes * Telephone Encounter - Pita Narayanan MD - 07/01/2016 9:00 AM EDT PCP note Appreciate team nurse f/u Glad pt is doing better I see her in a month for f/u DM and mood * Telephone Encounter - Faye Jackson RN - 07/01/2016 8:50 AM EDT Call placed to Patient - Identified by name and Calling to check in on mood since increase in medication Patient states an overall improvement, has some days still but overall doing well. Patient missed a call from Sleep study to schedule and will call them back. Encouraged to call PCP office anytime with questions/concerns * Telephone Encounter - Pita Narayanan MD - 06/30/2016 8:40 PM EDT PCP note Phone f/u Seen a month ago incr venlafaxine 75-->112.5 mg/day Referred to sleep center for f/u CADY. Note indicates sleep packet sent to her 06/01/16. No appt set up yet Will ask team nurse to call pt and see if the incr in venlafaxine is helping with her mood, and where things are with completing and returning the packet for sleep center--they can't sched appt untilshe gets it back to them. documented in this encounter Plan of Treatment Not on file documented as of this encounter Visit Diagnoses Not on filedocumented in this encounter Care Teams Commissary Production Supervisor Relationship Specialty Start Date End Date Pita Narayanan MD [facility] [address] [facility] [place] [address] PCP - General General Internal Medicine 01/28/1604/22 documented as of this encounter
--- OUTSIDE RECORDS SUMMARY | 2023-10-28 21:39 | XMS_ITS | Encounter Summary ---
Author Organization [facility] Address [facility] [place] [address] Care Team Providers Care Commodity Management Specialist Name Role Phone Carlos Alberto Ag MD Primary Care Provider Reason for Visit * Physical Therapy (Routine) - Closed Specialty Diagnoses / Procedures Referred By Contac t Referred To Contact Physical Therapy Diagnoses Chronic right hip pain Carlos Alberto Ag MD [facility] [place] [place] [address] [address] [place] [address] Referral ID Status Reason Start Date Expiration Date V isits Requested Visits Authorized [id number] Closed Evaluate and Treat 05/13/2017 05/13/2018 1 1 Encounter Details Date Type Department Care Team (Late st Contact Info) Description 06/03/2017 8:00 AM EST Office Visit Physical Therapy at [facility] [address] [place] [id number] Navid Enamorado, PT [facility] PHYSICAL MEDICINE & [place] [address] Chronic right hip pain Social History Tobacco Use Types Packs/Day Years [...] as of this encounter Progress Notes * Navid Enamorado, PT - 06/03/2017 8:00 AM EST PHYSICAL THERAPY INITIAL EXAMINATION Date of Exam/First treatment: 06/03/2017 Date of onset: years Referring Physician: Carlos Alberto Ag MD Diagnosis and pertinent co-morbidities: 1. Chronic right hip pain CURRENT HISTORY: Sarah Moncada is a 37 y.o. female referred to physical therapy for treatment of right hip pain. She reports that she has pain in right lateral hip for years. 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 She has to lift Boxes max weight is 40lbs. She has pain with standing , sitting,squatting. She reports tightness down her whole leg of tightness. She works 10-11 hrs a day She wants to workout at gym . She tried chiropractor and then had more pain. She was told by him that her pelvic was off on right. She is a single mother of 2 and has to bend and lift throughout the day. 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 Prior level of function: To be able to stand and sit without pain Functional Limitations: sitting, standing more than 30min, kneeling, crossing leg CLINICAL FINDINGS: Posture: Forward head , Protracted scapula and Pelvic alignment; R>L Gait: amb with: lateral shift on right Range of motion and strength: Right Range of motion (deg) Right Strength ( /5) hip flexion 120 5 abduction 45 4 adduction 5 ER 45 4+ IR 35 5 extension 4 Knee flexion 135 5 extension 0 5 Lumbar ROM: WFL Glute med L=5/5 R=4/5 Special Tests: DIANA - EMILY - Dariel - Carlos - Kasi + Rosalio - Joint mobility: PA mobilizations in the lumbar spine: Hypomobile; Hip: Normal Sensation: light touch: Abnormal hypersensitive to bilateral feet Palpation: tenderness with palpation at: pain in trigger point of glute medius Flexibility: decreased flexibility at: iliopsoas and quadriceps Outcome Measure: The Lower Extremity Functional Scale (LEFS) 06/02/2017 1. Any of your usual work, housework or school activities Moderate difficulty 2. Your usual hobbies, recreational or sporting activities. Moderate difficulty 3. Getting into or out of the bath A little bit of difficulty 4. Walking between rooms Moderate difficulty 5. Putting on your shoes or socks Moderate difficulty 6. Squatting Moderate difficulty 7. Lifting an object, like a bag of groceries from the floor A little bit of difficulty 8. Performing light activities around your home Moderate difficulty 9. Performing heavy activities around your home A little bit of difficulty 10. Getting into or out of a car A little bit of difficulty 11. Walking 2 blocks No difficulty 12. Walking a mile No difficulty 13. Going up or down 10 stairs (about 1 flight of stairs) A little bit of difficulty 14. Standing for 1 hour A little bit of difficulty 15. Sitting for 1 hour A little bit of difficulty 16. Running on even ground No difficulty 17. Running on uneven ground No difficulty 18. Making sharp turns while running fast No difficulty 19. Hopping A little bit of difficulty 20. Rolling over in bed A little bit of difficulty LEFS Score (Range 0-80) 59 LEFS % Functional Mobility 73.75 (Lower the score, greater the disability) CLINICAL EVALUATION AND DIAGNOSIS: These findings are consistent with right hip pain associated Lateral shifting and weakness in pelvic stabilizers on right Clinical presentation: Stable Evolving Unstable xx Clinical decision making of low complexity using standardized patient assessment instrument and measurable assessment of functional outcome. Expect with skilled physical therapy interventions patient will be able to return to prior level offunction. GOALS: Therapy Short Term Goals (2wks) Patient will... 1. be indep with home exercise program to begin self management of symptoms. 2. Improved awareness of compensation Therapy Control Valve Technician Goals ( 6wks) Patient will... 1. increase LEFS to 75/80 to indicate a functional improvement and to meet a clinically meaningful difference from initial evaluation score (MCID=8-9 points). 2. Able to work through a shift without pain INITIAL TREATMENT INCLUDED: Examination and instruction in a home exercise program (refer to scan doc in chart review for copy of exercises), PLAN: Frequency and duration: 1 x per week x 6 weeks Treatment: Manual Techniques, Soft Tissue Mobilization, Stretching, Joint Mobilization, Therapeutic Exercise, Patient/Family Education, Body Mechanics, Posture, Home Exercise Program, Balance and Gait Training and Pain Science Education Total Treatment time: 45 minutes: brynn, Total Timed Code Treatment: 0 minutes The plan has been discussed with the patient and Sarah Moncada has agreed with the planned treatment. NAVID ENAMORADO PT documented in this encounter Plan of Treatment Scheduled Referrals Name Type Priority Associated Diagnoses Orde r Schedule Referral to Physical Therapy Outpatient Referral Routine Chronic right hip pain Ordered: 05/13/2017 documented as of this encounter Visit Diagnoses Diagnosis Chronic right hip pain Pain in joint, pelvic region and thigh documented in this encounter Care Teams Commodity Management Specialist Relationship Specialty Start Date End Date Carlos Alberto Ag MD [facility] [place] [address] PCP - General General Internal Medicine 04/26/17 10/31/19 documented as of this encounter
--- OUTSIDE RECORDS SUMMARY | 2023-10-28 21:39 | XMS_ITS | Encounter Summary ---
Author Organization [facility] Address [facility] Veronica [place] [address] Care Team Providers Care Ivory Carver Name Role Phone Carlos Alberto Ag MD Primary Care Provider Encounter Details Date Type Department Care Team (Latest Contact Info) Description 08/19/2017 2:44 PM EDT - 08/19/2017 11:59 PM EDT Hospital Encounter XRay at [address] [place] [address] Malgorzata Pappas, SEARCH MARKETING COORDINATOR [facility] [place] [address] Pain in right hip Discharge Disposition: Home Social History Tobacco Use Types Packs/Day Years Used Date Smoking Tobacco: Never Smokeless Tobacco: Never Alcohol Use Standard Drinks/Week Comments No 0 (1 standard drink = 0.6 oz pur e alcohol) rarely Sex and Gender Information Value Date Recorded Sex Assigned at Not on file Gender Identity Female 12/01/2018 2:55 PM EDT Sexual Orientation Not on file documented as of this encounter Medications at Time of Discharge Medication Sig Dispensed Refills Start Date End Date APPLE CIDER VINEGAR ORAL Take 1 each by mouth daily. Syringe with Needle, Safety (EASY TOUCH FLIPLOCK SYRINGE) 1 mL 25 gauge x 1 SyringeIndications:E ncounter for contraceptive management, unspecified type For use with depo provera IM injections 10 Syringe 2 01/29/2017 medroxyPROGESTERone (DEPO-PROVERA) 150 mg/mL Suspension Inject 1 mL into the muscle Q 3 Months. 1 mL 3 01/14/2017 MULTI-VITAMIN ORAL Take by mouth daily. omeprazole (PRILOSEC) 20 mg Capsule, Delayed Release(E.C.)Indicat ions:Gastroesophagea l reflux disease, esophagitis presence not specified Take 1 capsule by mouth daily. For mail order 90 capsule 3 08/19/2017 06/22/2018 lisinopril (PRINIVIL;ZESTRIL) 10 mg TabletIndications:Es sential hypertension Take 1 tablet by mouth daily. For mail order 90 tablet 3 08/19/2017 06/22/2018 medroxyPROGESTERone (DEPO-SUBQ PROVERA) 104 mg/0.65 mL SyringeIndications:M enstrual disorder Inject 0.65 mLs subcutaneously Q 3 Months. 0.65 mL 3 06/25/2017 04/30/2018 venlafaxine (EFFEXOR-XR) 75 mg Capsule, Sust. Release 24 hrIndications:Depres timothy, unspecified depression type,Anxiety Take 3 capsules by mouth daily. Dose change 01/29/17 180 capsule 5 01/29/2017 09/30/2017 metFORMIN (GLUCOPHAGE-XR) 500 mg Tablet Sustained Release 24 hrIndications:Uncont rolled type 2 diabetes mellitus without complication, without long-term current use of insulin Take 3 tablets by mouth daily. Dose change 01/29/17 270 tablet 3 01/29/2017 01/14/2018 documented as of this encounter Plan of Treatment Not on file documented as of this encounter Procedures Procedure Name Priority Date/Time Associated Diagnosis Comments XR PELVIS AND HIP 2 VIEWS BILATERAL Routine 08/19/2017 3:23 PM EDT Pain in right hip documented in this encounter Results * XR Pelvis w AP & Lat Hip Bilat (08/19/2017 3:23 PM EDT) Anatomical Region Laterality Modality Pelvis, Hip Bilateral Digital Radiogra phy Impressions 08/19/2017 3:40 PM EDT 1. No acute fracture or dislocation of the right hip. 2. No significant arthritic changes are noted involving the hips. Narrative 08/19/2017 3:40 PM EDT EXAMINATION: XR PELVIS W AP AND LAT HIP BILAT CLINICAL HISTORY: right hip pain for a year, worse with standing and no relief with PT TECHNIQUE: AP pelvis and AP and frog-leg radiographs of the right hip. COMPARISON: None FINDINGS: No acute fracture or dislocation of the hips is identified. No significant arthritic changes are noted involving the hips. Tiny 2 mm bony density is identified along the superolateral aspect of the left acetabulum without change from the prior examination. The sacroiliac joints are normal. The questionable minimal bony protuberance identified along the lateral aspect of the junction of the head and neck of the right femur. Procedure Note Dante Thorne MD - 08/19/2017 EXAMINATION: XR PELVIS W AP AND LAT HIP BILAT CLINICAL HISTORY: right hip pain for a year, worse with standing and norelief with PT TECHNIQUE: AP pelvis and AP and frog-leg radiographs of the right hip. COMPARISON: None FINDINGS: No acute fracture or dislocation of the hips is identified. No significant arthritic changes are noted involving the hips. Tiny 2 mmbony density is identified along the superolateral aspect of the leftacetabulum without change from the prior examination. The sacroiliac joints are normal. The questionable minimal bonyprotuberance identified along the lateral aspect of the junction of the head and neckof the right femur. IMPRESSION 1. No acute fracture or dislocation of the right hip. 2. No significant arthritic changes are noted involving the hips. Malgorzata Clemencia Elyse LANDERS IMG DX ORDERABLES documented in this encounter Visit Diagnoses Diagnosis Pain in right hip Pain in joint, pelvic region and thigh documented in this encounter Care Teams Ivory Carver Relationship Specialty Start Date End Date Carlos Alberto Ag MD [facility] [place] [address] PCP - General General Internal Medicine 04/26/17 10/31/19 documented as of this encounter
--- OUTSIDE RECORDS SUMMARY | 2023-10-28 21:39 | XMS_ITS | Encounter Summary ---
Author Organization [facility] [place] [address] Care Team Providers Care Radiotelephone Operator Name Role Phone Pita Narayanan MD Primary Care Provider [phone] Encounter Details Date Type Department Care Team (Latest Contact Info) Description 03/05/2017 8:10 AM EST Laboratory Appointment Lab at [place] [address] [place] [id number] Dyslipidemia; Uncontrolled type 2 diabetes mellitus without complication, without long-term current use of insulin; Healthcare maintenance Social History Tobacco Use Types [...] Procedure Name Priority Date/Time Associated Diagnosis Comments HEPATITIS B SURFACE ANTIBODY Routine 03/05/2017 8:17 AM EST Uncontrolled type 2 diabetes mellitus without complication, without long-term current use of insulin Healthcare maintenance LIPID PANEL (REFLEX DIRECT LDL) Routine 03/05/2017 8:17 AM EST Dyslipidemia documented in this encounter Results * Hepatitis B Surface Antibody (03/05/2017 8:17 AM EST) HepB Surface Ab Quant <3.5 IU/L [facility] Comment: HepB Surface Ab Quant: Unvaccinated: < 8.5 IU/L Vaccinated: > 11.5 IU/L HepB Surface Ab Negative [facility] Comment: Patient is presumed to be not vaccinated or immune to HBV infection. Expected Results: Vaccinated: Positive Unvaccinated: Negative Blood specimen (specimen) 03/05/2017 8:17 AM EST 03/05/2017 9:56 AM EST Narrative Resulting Agency Comment Spec In Lab Pita Narayanan MD IMMUNOLOGY ORDERABLE S [facility] [place] [address] * (ABNORMAL) Lipid Panel (03/05/2017 8:17 AM EST) Chol, Total 166 <=239 mg/dL [facility] Triglycerides 309(H) <=199 mg/dL [facility] HDL 32(L) >=40 mg/dL [facility] LDL Cholesterol 72 <=190 mg/dL [facility] Chol/HDL Ratio 5.2 ratio [facility] Lipid Interpretation See Note [facility] Comment: Lipid management should be guided by a patient? s ASCVD risk, goals and preferences. ACC/AHA Guidelines recommend high intensity statin if clinical ASCVD or LDL greater than or equal to 190 mg/dL. [email or web address] Adults aged 40-75 with LDL 70-189 mg/dL should have their 10 year ASCVD risk estimated with the ACC/AHA ASCVD risk checker/stocker http://tools.acc.org/WQQRW-Nkcr-Xohkfeuac/ Statin should be discussed if risk greater [...] In Lab Pita Narayanan MD CHEMISTRY ORDERABLES [facility] [place] [address] documented in this encounter Visit Diagnoses Diagnosis Dyslipidemia Other and unspecified hyperlipidemia Uncontrolled type 2 diabetes mellitus without complication, without long-term current use of insulin Healthcare maintenance Routine general medical examination at a health care facility documented in this encounter Care Teams Radiotelephone Operator Relationship Specialty Start Date End Date Pita Narayanan MD [facility] [place] [address] PCP - General General Internal Medicine 01/28/1604/22 documented as of this encounter
--- OUTSIDE RECORDS SUMMARY | 2023-10-28 21:39 | XMS_ITS | Encounter Summary ---
Author Organization [facility] Address [facility] [place] [address] Care Team Providers Care Client Service And Consulting Manager Name Role Phone Pita Narayanan MD Primary Care Provider Reason for Visit * Reason Comments Follow-up DM; has lump under s kin in left armpit, first noticed about 2 wks ago, getting larger and moving forward; discuss venlafaxine dosage, increase?; did Depo at home on [facility] Encounter Details Date Type Department Care Team (Late st Contact Info) Description 08/20/2016 2:30 PM EDT Office Visit Internal Medicine at [address] [phone] Pita Narayanan MD [facility] [address] Uncontrolled type 2 diabetes mellitus without complication, without long-term current use of insulin; Depression, unspecified depression type; Skin cyst; Gastroesophageal reflux disease, esophagitis presence not specified; [...] Sign Reading Time Taken Comments Blood Pressure 124/73 08/20/2016 2:30 PM EDT mac evens Pulse 77 08/20/2016 2:30 PM EDT Temperature 36.5 ??C (97.7 ??F) 08/20/2016 2:30 PM ED T Respiratory Rate 20 08/20/2016 2:30 PM EDT Oxygen Saturation 100% 08/20/2016 2:30 PM EDT Inhaled Oxygen Concentration - - Weight 111.1 kg (245 lb) 08/20/2016 2:30 PM EDT Height 164.6 cm (5' 4.8) 08/20/2016 2:30 PM EDT Body Mass Index 41.02 08/20/2016 2:30 PM EDT documented in this encounter Patient Instructions * Patient Instructions* Pita Narayanan MD - 08/20/2016 2:30 PM EDT Sarah was seen today for follow-up . Diagnoses and all orders for this visit: Uncontrolled type 2 diabetes mellitus without complication, without long-term current use of insulin - POCT glycated hemoglobin, total (HA1C) - metFORMIN (FORTAMET) 1,000 mg Tablet Extended Rel 24 hr; Take 1 tablet by mouth daily. Dispense generic extended release metformin Diabetes Plan of Care HA1C at visit today was not changed from April Lab Results Component Value Date HA1C 8.1 (A) 08/20/2016 Goal HA1C is <7 Plan for Improving Diabetic Control is : [x] Change Medication as follows: change to the once a day 1000 mg metformin pill. You wanted to hold on a dose increase. The once a day form may help with better medication adherence [x] Self Management: continue to work on healthier food choices [x] Barriers to goal: [x] Clinician follow up: 3 months [] Certified Gaming Commissioner/Endocrine follow up/referral: [x] Referrals/Labs/Testing: up to date This plan of care was made in collaboration with the patient/family Depression, unspecified depression type - venlafaxine (EFFEXOR-XR) 150 mg Capsule, Sust. Release 24 hr; Take 1 capsule by mouth daily. Dosechange 08/20/16 -phone check in with our nurses in a month. Let us know sooner if having problems on this medication Skin cyst--left armpit (axilla)--appears benign. Just follow for now. If is enlarging, getting painful, or red, contact us. Gastroesophageal reflux disease, esophagitis presence not specified - omeprazole (PRILOSEC) 20 mg Capsule, Delayed Release(E.C.); Take 1 capsule by mouth daily. For mail order Essential hypertension - lisinopril (PRINIVIL;ZESTRIL) 10 mg Tablet; Take 1 tablet by mouth daily. For mail order Return visit in 3 months Sooner as needed documented in this encounter Progress Notes * Pita Narayanan MD - 08/20/2016 2:30 PM EDT Here for f/u DM and depression Has one other issue #lump L axilla 2 weeks ?ingrown hair Warm compresses Hard Not painful Not changing in size No f/c/s Had one on the R before after a few days came to head and resolved, leaving an indent. Not sure what that was #depression struggling to keep in a good mood Is on the venlafaxine 112.5 mg. On phone check ~6 wks ago was doing better Harder now Schedule change with work Since June, difficult to get going Was hoping to level out on a dose of med. Not there yet Has not seen any therapist. We had discussed this Having trouble getting to the appt. Says is getting in her own way to do this, ie no motivation to call Mother is nagging her phq9 is better today Discussed going up on venlafaxine; OK with that. Her BP is good PHQ9 Questionnaires Data (Clinic and Pt Entered): Today's value PHQ-9 QUESTIONNAIRE (Patient-Last entered) 04/28/2016 PHQ - 9 Score (Patient) 22 (Severe Depression) Little interest or pleasure (Patient) Nearly every day Down, depressed, hopeless (Patient) Nearly every day Trouble sleeping (Patient) Nearly every day Tired or no energy (Patient) Nearly every day Poor appetite or overeating (Patient) More than half the days Feeling like a failure (Patient) Nearly every day Trouble concentrating (Patient) More than half the days Moving or speaking slowly (Patient) Several days Would be better off (Patient) More than half the days PHQ-9 QUESTIONNAIRE (Clinic-Last entered) 08/20/2016 PHQ - 9 Score (Clinic) 14 (Moderate Depression) Little interest or pleasure (Clinic) Several Days Down, depressed, hopeless (Clinic) More than half the days Trouble sleeping (Clinic) Nearly every day Tired or no energy (Clinic) More than half the days Poor appetite or overeating (Clinic) Several days Feeling like a failure (Clinic) Several Days Trouble concentrating (Clinic) More than half the days Moving or speaking slowly (Clinic) More than half the days Would be better off (Clinic) Not at all How difficult are the problems (Clinic) Somewhat difficult #DM Today is 8.1%, stable from 3 months ago. Hectic life Metformin 500 BID Working to get a better meal plan for future Eating carbs now. Working to eat more fiber and protein More meal planning Schedule change for 1-2 months, about fdc through this Was working 6 days with 8 days off Before this was 3 days on 4 days off. Now is like a double shift of work and off days Discussed increasing metformin. she would prefer to work on TLC Cutting down on energy drinks Wants to try on own first In past has beenin 6 range in past May miss 2nd dose on days off. Easier to be good about this at work So this might be a factor Willing to do the XR form for better med adherence Has not gotten fasting labs yet. #menstrual d/o; heavy bleeding Has the depo shots for herself Gave on either 07/27 or 07/28 2016, in the window Has some castro on phone for the depo calendar Working to stick to that. Is not in sexual relationship at prsent ROS: purple sheet reviewed. 05/29 avg pain, no balance concerns, mood concerns reviewed above Exam VS+3 noted. BP 124/73 (BP Location (NBP): Left arm, Patient Position: Sitting, BP Cuff Sizes: Large Adult (32-43 cm)) Comment: machine Pulse 77 Temp 36.5 ??C (97.7 ??F) (Oral) Resp 20 Ht 164.6 cm (5' 4.8) Wt (!) 111.1 kg (245 lb) SpO2 100% BMI 41.02 kg/m2 Wt is ~stable Alert, better spirits, NAD OP moist, no mucosal lesions or exudate Neck supple no LAD Card RRR no m/r/g Post lung zones clear Axilla: both have acanthosis changes Small, easily felt subcut cyst L axilla about 5 mm or less in size. No inflam changes with it. Tender with direct pressure Has area of indent R lateral axilla in area of old cyst and divot in this actually has a smaller similar cystic structure that is ~2-3 mm in size, also no inflam changes Feet: has scaly red patch lateral aspect left great toe. Looks eczematous. Has trace fissuring in 2toe spaces R foot Both great toenails are largely missing Rest of skin of feet intact DP 2+ bilat A1c reviewed A/P Patient Instructions--modified from AVS Sarah was seen today for follow-up . Diagnoses and all orders for this visit: Uncontrolled type 2 diabetes mellitus without complication, without long-term current use of insulin No progress over last 3 months Med adherence issues Hectic lifestyle, single parent, variable work sched - POCT glycated hemoglobin, total (HA1C) - metFORMIN (FORTAMET) 1,000 mg Tablet Extended Rel 24 hr; Take 1 tablet by mouth daily. Dispense generic extended release metformin. Diabetes Plan of Care HA1C at visit today was not changed from April Lab Results Component Value Date HA1C 8.1 (A) 08/20/2016 Goal HA1C is <7 Plan for Improving Diabetic Control is : [x] Change Medication as follows: change to the once a day 1000 mg metformin pill. You wanted to hold on a dose increase. The once a day form may help with better medication adherence [x] Self Management: continue to work on healthier food choices [x] Barriers to goal: [x] Clinician follow up: 3 months [] Certified Gaming Commissioner/Endocrine follow up/referral: [x] Referrals/Labs/Testing: up to date This plan of care was made in collaboration with the patient/family Depression, unspecified depression type--improving but not fully. Will go up on med. - venlafaxine (EFFEXOR-XR) 150 mg Capsule, Sust. Release 24 hr; Take 1 capsule by mouth daily. Dosechange 08/20/16 -phone check in with our nurses in a month. Let us know sooner if having problems on this medication Skin cyst--left armpit (axilla)--appears benign. Just follow for now. If is enlarging, getting painful, or red, contact us. Gastroesophageal reflux disease, esophagitis presence not specified - omeprazole (PRILOSEC) 20 mg Capsule, Delayed Release(E.C.); Take 1 capsule by mouth daily. For mail order Essential hypertension - lisinopril (PRINIVIL;ZESTRIL) 10 mg Tablet; Take 1 tablet by mouth daily. For mail order Paper scripts for the 2 mail order meds given to her Return visit in 3 months Sooner as needed documented in this encounter Plan of Treatment Not on file documented as of this encounter Procedures Procedure Name Priority Date/Time Associated Diagnosis Comments POCT GLYCATED HEMOGLOBIN, TOTAL (HA1C) Routine 08/20/2016 2:42 PM EDT Uncontrolled type 2 diabetes mellitus without complication, without long-term current use of insulin documented in this encounter Results * (ABNORMAL) POCT glycated hemoglobin, total (HA1C) (08/20/2016 2:42 PM EDT) POC HA1C 8.1(A) 4.3 - 5.6 % 08/20/2016 2:42 PM EDT Pita Narayanan MD POINT OF CARE TEST O RDERABLES documented in this encounter Visit Diagnoses Diagnosis Uncontrolled type 2 diabetes mellitus without complication, without long-term current use of insulin Depression, unspecified depression type Skin cyst Sebaceous cyst Gastroesophageal reflux disease, esophagitis presence not specified Essential hypertension Unspecified essential hypertension documented in this encounter Care Teams Client Service And Consulting Manager Relationship Specialty Start Date End Date Pita Narayanan MD [facility] [address] [place] [address] PCP - General General Internal Medicine 01/28/1604/22 documented as of this encounter
--- OUTSIDE RECORDS SUMMARY | 2023-10-28 21:39 | XMS_ITS | Encounter Summary ---
Author Organization [facility] [place] [address] Care Team Providers Care Forest Resource Specialist Name Role Phone Pita Narayanan MD Primary Care Provider [phone] Encounter Details Date Type Department Care Team (Late st Contact Info) Description 04/29/2016 Telephone Psychiatry and [place] [phone] Bhupinder Ray, TOOL SHARPENER Social History Tobacco Use Types Packs/Day Years [...] encounter Miscellaneous Notes * Telephone Encounter - Bhupinder Ray MSW - 04/29/2016 2:06 PM EST Rec'd f/u call from Dr. Narayanan with concerns for this patient's well-being. Spoke with Marilyn of [facility] who will contact the patient today. documented in this encounter Plan of Treatment Not on file documented as of this encounter Visit Diagnoses Not on filedocumented in this encounter Care Teams Forest Resource Specialist Relationship Specialty Start Date End Date Pita Narayanan MD [facility] [address] [place] [address] PCP - General General Internal Medicine 01/28/1604/22 documented as of this encounter
--- OUTSIDE RECORDS SUMMARY | 2023-10-28 21:39 | XMS_ITS | Encounter Summary ---
Author Organization [facility] Address [facility] [place] [address] Care Team Providers Care Integration Aide Name Role Phone Carlos Alberto Ag MD Primary Care Provider Reason for Visit * Reason Onset Date Comments Medication Refill 06/24/2017 Depo-subq Prov era 104 syringe Encounter Details Date Type Department Care Team (Late st Contact Info) Description 06/24/2017 Refill Internal Medicine at [facility] [address] [place] [address] Jenelle Lloyd, CRUSHER TENDER Menstrual disorder Social History Tobacco Use Types [...] tract documented in this encounter Care Teams Integration Aide Relationship Specialty Start Date End Date Carlos Alberto Ag MD [facility] [place] [address] PCP - General General Internal Medicine 04/26/17 10/31/19 documented as of this encounter
--- OUTSIDE RECORDS SUMMARY | 2023-10-28 21:39 | XMS_ITS | Encounter Summary ---
Author Organization [facility] [place] [address] Care Team Providers Care Glove Former Name Role Phone Pita Narayanan MD Primary Care Provider [phone] Encounter Details Date Type Department Care Team (Latest Contact Info) Description 05/11/2016 1:40 PM EST Clinical Support Internal Medicine at [facility] [address] [place] [id number] Yoly Palacios RN Encounter for contraceptive management, unspecified contraceptive encounter type Social History Tobacco Use Types Packs/Day [...] as of this encounter Progress Notes * Yoly Palacios RN - 05/11/2016 1:40 PM EST Pt was here for an appointment with another provider Was able to give her the depo injection earlier in the day. Pt given subcutaneous 104mg to the abdomen R side, about 8 O'clock. Pt tolerated the injection well. Pt next dose is July betx - documented in this encounter Plan of Treatment Not on file documented as of this encounter Visit Diagnoses Diagnosis Encounter for contraceptive management, unspecified contraceptive encounter type documented in this encounter Administered Medications Inactive Administered Medications - up to 3 most recent administrations Medication Order MAR Action Action Date Dose Rate Site medroxyPROGESTERone (DEPO-SUBQ PROVERA) injection 104 mg 104 mg, Subcutaneous, EVERY 3 MONTHS, First dose on 05/11/16 at 1030, Until Discontinued, Routine, Is this medication being ordered for contraception? This question is required for billing. Yes Given 05/11/2016 10:11 AM EST 104 mg Abdominal Tissue documented in this encounter Care Teams Glove Former Relationship Specialty Start Date End Date Pita Narayanan MD [facility] [address] [place] [address] PCP - General General Internal Medicine 01/28/1604/22 documented as of this encounter
--- OUTSIDE RECORDS SUMMARY | 2023-10-28 21:39 | XMS_ITS | Encounter Summary ---
Author Organization [facility] [place] [address] Care Team Providers Care Learning Specialist Name Role Phone Dav Carlos MD Primary Care Provider [phone] Reason for Visit * Reason Comments Suture / Staple Removal Encounter Details Date Type Department Care Team ([facility] st Contact Info) Description 12/23/2011 9:45 AM EDT Office Visit Obstetrics and Gynecology at [facility], [place] [phone] Alexandre Powers RN Encounter for removal of sutures (Primary Dx) Discharge Disposition: Home Social History Tobacco Use [...] as of this encounter Progress Notes * Alexandre Powers RN - 10/19/2012 7:57 PM EDT Patient seen today for staple removal following repeat c/s on 12/17. has been complicated by Type II diabetes, morbid obesity, CADY, hypertension. Today the patient is without complaint. Pj removed without difficulty and steri strips applied. Patient will call with any redness or discharge from incision. documented in this encounter Plan of Treatment Not on file documented as of this encounter Visit Diagnoses Diagnosis Encounter for removal of sutures- Primary documented in this encounter Care Teams Learning Specialist Relationship Specialty Start Date End Date Dav Carlos MD PCP - General 10/01/10 11/30/12 documented as of this encounter
--- OUTSIDE RECORDS SUMMARY | 2023-10-28 21:39 | XMS_ITS | Encounter Summary ---
Author Organization [facility] [place] [address] Care Team Providers Care Editor City Name Role Phone Pita Narayanan MD Primary Care Provider [phone] Encounter Details Date Type Department Care Team (Late st Contact Info) Description 08/21/2016 Telephone Family Medicine at [facility] [address] [place] [phone] Girish Mckay Jr., [place] [address] Social History Tobacco Use Types Packs/Day Years [...] encounter Miscellaneous Notes * Telephone Encounter - Michael Vazquez MA - 08/21/2016 2:31 PM EDT Error. documented in this encounter Plan of Treatment Not on file documented as of this encounter Visit Diagnoses Not on filedocumented in this encounter Care Teams Editor City Relationship Specialty Start Date End Date Pita Narayanan MD [place], [place] [id number] PCP - General General Internal Medicine 01/28/1604/22 documented as of this encounter
--- OUTSIDE RECORDS SUMMARY | 2023-10-28 21:39 | XMS_ITS | Encounter Summary ---
Author Organization [facility] [place] [address] Care Team Providers Care Champion Of Sustainable Design Name Role Phone Pita Narayanan MD Primary Care Provider [phone] Encounter Details Date Type Department Care Team (Late st Contact Info) Description 04/29/2016 Telephone Internal Medicine at [facility] [address] [place] [address] Pita Narayanan MD [facility] [place] [address] Social History Tobacco Use Types Packs/Day Years [...] Telephone Encounter - Pita Narayanan MD - 04/29/2016 8:45 AM EST PCP Note I called psych emergency services at this am. Spoke with clinician Bhupinder. Outlined current situation. She felt best approach was for her to contact Latasha Mcmullen and have their emergency services person contact Sarah directly for further follow up on her current depression sx and SI. documented in this encounter Plan of Treatment Not on file documented as of this encounter Visit Diagnoses Not on filedocumented in this encounter Care Teams Champion Of Sustainable Design Relationship Specialty Start Date End Date Pita Narayanan MD [facility] [place] [id number] PCP - General General Internal Medicine 01/28/1604/22 documented as of this encounter
--- OUTSIDE RECORDS SUMMARY | 2023-10-28 21:39 | XMS_ITS | Encounter Summary ---
Author Organization [facility] [place] [address] Care Team Providers Care Accounting Manager Controller Name Role Phone Pita Narayanan MD Primary Care Provider [phone] Reason for Visit * Reason Onset Date Comments Medication Problem 01/12/2017 depo-provara Encounter Details Date Type Department Care Team (Late st Contact Info) Description 01/12/2017 Refill Internal Medicine at [facility] [address] [place] [address] Edel Rubi Social History Tobacco Use Types Packs/Day Years [...] encounter Miscellaneous Notes * Telephone Encounter - Jenelle Lloyd CMA - 01/13/2017 3:17 PM EDT Spoke with Keira at [facility]. She did actually receive the 104mg Depo today so she can use that for the patient this time, but will probably need to change the future script to the 150mg Depo as they will no longer carry the 104mg. * Telephone Encounter - Reina Hollis - 01/13/2017 8:44 AM EDT Keira calling again, they just got the Depo- Provara, next month it may be completley back ordered. * Telephone Encounter - Jenelle Lloyd CMA - 01/13/2017 8:09 AM EDT Spoke with [facility] pharmacist. Patient's current prescription for Depo-Provara is the 104mg subq which is currently on back order. In patient's chart I see that she has received Medroxyprogesterone (DEPO-PROVERA) 150 mg/mL Suspension in the past and the pharmacy does have this is stock. If appropriate alternative, please sign this new order and discontinue the 104mg order. Requested Prescriptions Pending Prescriptions Disp Refills ??? medroxyPROGESTERone (DEPO-PROVERA) 150 mg/mL Suspension 1 mL 3 Sig: Inject 1 mL into the muscle Q 3 Months. * Telephone Encounter - Edel Putnam - 01/12/2017 3:16 PM EDT [facility] Percy Pendleton called to say that the depo-prevara is on back on order is there something else we want to prescribe? Pt is due in 4 days documented in this encounter Plan of Treatment Not on file documented as of this encounter Visit Diagnoses Not on filedocumented in this encounter Care Teams Accounting Manager Controller Relationship Specialty Start Date End Date Pita Narayanan MD [facility] [address] [facility] [place] [address] PCP - General General Internal Medicine 01/28/1604/22 documented as of this encounter
--- OUTSIDE RECORDS SUMMARY | 2023-10-28 21:39 | XMS_ITS | Encounter Summary ---
Author Organization [facility] [place] [address] Care Team Providers Care Neurology Nurse Name Role Phone Pita Narayanan MD Primary Care Provider [phone] Reason for Visit * Reason Onset Date Comments No Show 08/19/2016 Encounter Details Date Type Department Care Team ([facility] Contact Info) Description 08/19/2016 Tele[address] Medicine [address] [facility] [address] [place] [address] Marilyn Mock No Show Social History Tobacco Use Types Packs/Day Years [...] encounter Miscellaneous Notes * Telephone Encounter - Marilyn Mock - 08/19/2016 8:29 AM EDT Patient no-showed 08/14/16 appointment. Per no show policy, I Called to do a safety check on patient and to reschedule no showed appointment. Left a message reminding patient to call Primary care office to cancel appointment prior to the appointment time. Patient is rescheduled to 08/20/16 ?? documented in this encounter Plan of Treatment Not on file documented as of this encounter Visit Diagnoses Not on filedocumented in this encounter Care Teams Neurology Nurse Relationship Specialty Start Date End Date Pita Narayanan MD [facility] [address] [place] [address] PCP - General General Internal Medicine 01/28/1604/22 documented as of this encounter
--- OUTSIDE RECORDS SUMMARY | 2023-10-28 21:39 | XMS_ITS | Encounter Summary ---
Author Organization [facility] Address [facility] [place] [address] Care Team Providers Care Senior Project Controls Specialist Name Role Phone Carlos Alberto Ag MD Primary Care Provider Reason for Visit * Reason Comments Cough +1 week plus of coug jacob, chest hurts because of coughing so much, phleghm mainly dark green Encounter Details Date Type Department Care Team (Late st Contact Info) Description 09/15/2017 9:00 AM EDT Office [place] [address] Adan Markham MD [facility] [place] [address] Viral URI with cough Social History Tobacco Use Types Packs/Day Years [...] Sign Reading Time Taken Comments Blood Pressure 111/70 09/15/2017 9:17 AM EDT Pulse 90 09/15/2017 9:17 AM EDT Temperature 36.6 ??C (97.9 ??F) 09/15/2017 9:17 AM ED T Respiratory Rate 18 09/15/2017 9:17 AM EDT Oxygen Saturation 100% 09/15/2017 9:17 AM EDT Inhaled Oxygen Concentration - - Weight 105.2 kg (232 lb) 09/15/2017 9:17 AM EDT Height 163.8 cm (5' 4.5) 09/15/2017 9:17 AM EDT Body Mass Index 39.21 09/15/2017 9:17 AM EDT documented in this encounter Patient Instructions * Patient Instructions* Adan Markham MD - 09/15/2017 9:00 AM EDT You have common cold symptoms - please hydrate yourself with lots of fluids - you can take ibuprofen or acetaminophen (Tylenol) for body pain - guaifenesin (Mucinex, Robitussin) can help with cough - if you need additional cough suppressant, please call or message the clinic documented in this encounter Progress Notes * Adan Markham MD - 09/15/2017 9:00 AM EDT Subjective: Patient ID: Sarah Moncada is a 37 y.o. female with a past medical history of depression, CADY, HTN, DM and chronic hip pain presenting to the clinic with 1 week history of productive cough and diffuse body aches. Both of her daughters have been sick recently and Ms. Jacobs started having more cough, shortness of breath, chest pain associated with cough, and generalized malaise for the past week. Her cough isintermittently productive. She has mild sinus tenderness. She has not been taking any medications for the cough or generalized body ache. She has been able to drink and eat normally. She denies any fevers, chills, nausea, vomiting, or diarrhea. She believes her symptoms are due to a common cold. She came to the clinic today at the request of her close family members and friends who were worried about her. Review of Systems (pertinent positive in bold; in addition to HPI) General: no fevers, chills, night sweats Chest: Chest wall pain associated with coughing Pulmonary: Shortness of breath associated with coughing, intermittently productive cough GI: No abdominal pain, constipation, or diarrhea : No dysuria MSK: Diffuse body ache Objective: BP 111/70 (BP Location (NBP): Right arm, Patient Position: Sitting, BP Cuff Sizes: Large Adult (32-43 cm)) Pulse 90 Temp 36.6 ??C (97.9 ??F) (Oral) Resp 18 Ht 163.8 cm (5' 4.5) Wt 105.2 kg(232 lb) SpO2 100% BMI 39.21 kg/m2 PHQ-9 QUESTIONNAIRE SCORE ONLY (AMB) 09/15/2017 PHQ - 9 Score (Clinic) 18 (Moderately Severe Depression) PHQ - 9 Score (Patient) - Some recent data might be hidden Wt Readings from Last 3 Encounters: 09/15/17 105.2 kg (232 lb) 08/19/17 104.9 kg (231 lb 3.2 oz) 05/13/17 107.6 kg (237 lb 3.2 oz) Physical Exam General - No acute distress. Breathing comfortably. Intermittent dry cough. ENT - Mouth moist without lesions. Eyes - EOMI. Not jaundiced. Noninjected Neck - No lymphadenopathy. No thyromegaly Lungs - Clear to auscultation bilaterally Heart - RRR, S1,S2, no audible murmur, gallop or rubs. Abdomen/GI - Soft, nontender, normal active bowel sounds, neg hsm or masses. Extremities - No clubbing, cyanosis or edema. Pulses intact. Neuro - AAOx3 Assessment and Plan: Sarah Moncada is a 37 y.o. female with a past medical history of depression, CADY, HTN, DM and chronic hip pain presenting to the clinic with 1 week history of productive cough and diffuse body aches. Her symptoms are consistent with a viral URI. She does not feel like she has any concerning symptoms at this time and agrees that she needs more rest. We discussed symptomatic management of her hersymptoms including ynaa-snk-eckabxp cough suppressant, saline nasal spray, brdm-jdc-[id number] analgesics, and continuing adequate hydration. She was advised to return to the clinic if her symptoms do not improve or become worse. Viral URI - Symptomatic management as above - Return precautions discussed F/U with PCP Adan Markham MD ([place]) Internal Medicine, PGY2 Pager #[phone] * Antonio Hernandez MD - 09/15/2017 9:00 AM EDT The case was discussed at the time of the visit or immediately after the visit. The assessment and plan were formulated in discussion with me and I agree with them as documented. I have reviewed the history, physical exam, assessment and plan with the resident. Major issues discussed today: 37 SDA for URI- typical sx No fever Has DM Plan: Symptomatic treatment documented in this encounter Plan of Treatment Not on file documented as of this encounter Visit Diagnoses Diagnosis Viral URI with cough Acute upper respiratory infections of unspecified site documented in this encounter Care Teams Senior Project Controls Specialist Relationship Specialty Start Date End Date Carlos Alberto Ag MD [facility] [place] [address] PCP - General General Internal Medicine 04/26/17 10/31/19 documented as of this encounter
--- OUTSIDE RECORDS SUMMARY | 2023-10-28 21:39 | XMS_ITS | Encounter Summary ---
Author Organization [facility] [place] [address] Care Team Providers Care Customer Experience Strategist Name Role Phone Pita Narayanan MD Primary Care Provider [phone] Encounter Details Date Type Department Care Team (Late st Contact Info) Description 05/14/2016 Abstract Internal Medicine at [facility] [address] [place] [phone] Pdama Miller, [facility] Social History Tobacco Use Types Packs/Day Years [...] Procedure Name Priority Date/Time Associated Diagnosis Comments HEMOGLOBIN A1C Routine 09/18/2015 10:06 AM EDT EXTERNAL LIPID LAB RESULTS PANEL Routine 09/18/2015 EXTERNAL LAB CBC CMP THYROID RESULTS PANEL Routine 09/18/2015 documented in this encounter Results * (ABNORMAL) Hemoglobin A1c (09/18/2015 10:06 AM EDT) Hemoglobin A1C 7.5(PLISSE MACHINE OPERATOR AL/ABN) EXTERNAL LAB Comment:external reference r brandon 5.0-5.6 Blood specimen (specimen) 09/18/2015 10:06 AM EDT Historical Provider CHEMISTRY ORDERAB LES EXTERNAL LAB * (ABNORMAL) Lipid External Results (09/18/2015) Chol, Total 154(Exter nal Lab) mg/dL EXTERNAL LAB HDL 27(PLISSE MACHINE OPERATOR AL/ABN) mg/dL EXTERNAL LAB Comment:external reference r brandon 40-60 LDL Cholesterol 58(PLISSE MACHINE OPERATOR AL/ABN) mg/dL EXTERNAL LAB Comment:external reference r brandon 60-100 Triglycerides 347(EXTER NAL/ABN) mg/dL EXTERNAL LAB Comment:external reference r brandon 35-150 09/18/2015 Historical Provider POINT OF CARE GONZALES T ORDERABLES Performing Organization Address [facility] Co de Phone Number EXTERNAL LAB * (ABNORMAL) CBC / CMP / Thyroid External Results (09/18/2015) Sodium 136(Straightening Roll Operator al Lab) 137 - 147 EXTERNAL LAB Potassium 4.0(Straightening Roll Operator al Lab) 3.4 - 5.3 EXTERNAL LAB Chloride 100(Straightening Roll Operator al Lab) 99 - 108 EXTERNAL LAB CO2 29(Externa l Lab) 22 - 29 EXTERNAL LAB BUN 15(Externa l Lab) EXTERNAL LAB Creatinine 0.63(Exter nal Lab) EXTERNAL LAB Glucose Lvl 178(PLISSE MACHINE OPERATOR AL/ABN) EXTERNAL LAB Comment:external reference r brandon 70-110 Calcium 8.3(PLISSE MACHINE OPERATOR AL/ABN) 8.7 - 10.7 EXTERNAL LAB Comment:external reference r brandon 8.6-10.5 Total Protein 6.7(Straightening Roll Operator al Lab) 6.4 - 8.2 EXTERNAL LAB Albumin 3.7(Straightening Roll Operator al Lab) EXTERNAL LAB Total Bilirubin 0.3(Straightening Roll Operator al Lab) EXTERNAL LAB Alk Phos 62(Externa l Lab) EXTERNAL LAB AST 12(Externa l Lab) 13 - 35 EXTERNAL LAB ALT 28(Externa l Lab) 7 - 35 EXTERNAL LAB 09/18/2015 Historical Provider POINT OF CARE GONZALES T ORDERABLES EXTERNAL LAB documented in this encounter Visit Diagnoses Not on filedocumented in this encounter Care Teams Customer Experience Strategist Relationship Specialty Start Date End Date Pita Narayanan MD [facility] [address] [place] [address] PCP - General General Internal Medicine 01/28/1604/22 documented as of this encounter
--- OUTSIDE RECORDS SUMMARY | 2023-10-28 21:39 | XMS_ITS | Encounter Summary ---
Author Organization [facility] [place] [address] Care Team Providers Care Imaging Aide Name Role Phone Pita Narayanan MD Primary Care Provider [phone] Reason for Visit * Reason Onset Date Comments Medication Refill 01/09/2013 Encounter Details Date Type Department Care Team (Late st Contact Info) Description 01/09/2013 Refill Obstetrics [place] [phone] Marilyn Reilly MD [facility] OBSTETRICS & [place] [address] Hypertension (Primary Dx) Social History Tobacco Use Types Packs/Day Years [...] encounter Miscellaneous Notes * Telephone Encounter - Ale Malik RN - 01/09/2013 12:24 PM EDT Was encouraged to refill with PCP. documented in this encounter Plan of Treatment Not on file documented as of this encounter Visit Diagnoses Diagnosis Hypertension- Primary Unspecified essential hypertension documented in this encounter Care Teams Imaging Aide Relationship Specialty Start Date End Date Pita Narayanan MD [facility] [address] [place] [address] PCP - General 12/01/12 04/21/15 documented as of this encounter
--- OUTSIDE RECORDS SUMMARY | 2023-10-28 21:39 | XMS_ITS | Encounter Summary ---
Author Organization [facility] Address [facility] [place] [address] Care Team Providers Care International Trade Compliance Manager Name Role Phone Pita Narayanan MD Primary Care Provider Reason for Referral * Consultation (Urgent) - Specialty Diagnoses / Procedures Referred By Contac t Referred To Contact Primary Care Diagnoses Severe episode of recurrent major depressive disorder, without psychotic features Pita Narayanan MD [facility] [address] [facility] Internal Medicine [address] [place] [address] Referral ID Status Reason Start Date Expiration Date Visits Requested Visits Authorized [id number] Specialty Service Requested 04/29/2016 04/29/2017 1 1 Reason for Visit * Reason Comments Establish Care Encounter Details Date Type Department Care Team (Late st Contact Info) Description 04/28/2016 3:30 PM EST Office Visit Internal Medicine at [facility] [address] [place] [id number] [place] [address] Severe episode of recurrent major depressive disorder, without psychotic features; Type 2 diabetes mellitus without complication, unspecified chcf insulin use status; Essential hypertension; Gastroesophageal reflux disease, esophagitis presence not specified; Menstrual disorder; Obstructive sleep apnea; Increased BMI Social History Tobacco Use Types Packs/Day Years [...] Sign Reading Time Taken Comments Blood Pressure 138/84 04/28/2016 4:09 PM EST Pulse 78 04/28/2016 4:09 PM EST Temperature 36.7 ??C (98 ??F) 04/28/2016 4:09 PM EST Respiratory Rate 16 04/28/2016 4:09 PM EST Oxygen Saturation 98% 04/28/2016 4:09 PM EST Inhaled Oxygen Concentration - - Weight 110.8 kg (244 lb 3.2 oz) 04/28/2016 4:09 PM EST Height 165.4 cm (5' 5.12) 04/28/2016 4:09 PM ES T Body Mass Index 40.49 04/28/2016 4:09 PM EST documented in this encounter Patient Instructions * Patient Instructions* Pita Narayanan MD - 04/28/2016 3:30 PM EST Migdalia was seen today for establish care. Diagnoses and all orders for this visit: Severe episode of recurrent major depressive disorder, without psychotic features - venlafaxine (EFFEXOR-XR) 37.5 mg Capsule, Sust. Release 24 hr; Take 1 capsule by mouth daily for 7 days. Use this first - venlafaxine (EFFEXOR-XR) 75 mg Capsule, Sust. Release 24 hr; Take 1 capsule by mouth daily. Starttaking after finishing the 37.5 mg capsules Take the bupropion the first week on the low dose venlafaxine. Then stop the bupropion and continueon the higher dose venlafaxine [facility] Psychiatry emergency services: [phone] [facility] Emergency room: [phone] WILLIS PENLAOZA farm operations manager after 5 pm and on weekends; through [facility] [employer] [phone] [facility] 24 hr emergency line ([place], [place]) [facility] [place] intake [phone]; [facility] intake [phone] The preferred route for ongoing care is with [facility] since this is closer We will arrange referrals for our consulting psychiatrist here at [facility] and with one of the crisis staff in psychiatry, if needed. You contracted for safety today See emergency resources above Type 2 diabetes mellitus without complication, unspecified chcf insulin use status - POCT glycated hemoglobin, total (HA1C)--8.0% not controlled - U Albumin/Cre Ratio - BMP w/fasting Glucose; Future Start metformin: - metFORMIN (GLUCOPHAGE) 500 mg Tablet; Take 1 tablet by mouth 2 times daily (with meals). Start with one pill once daily for 7 days then go up to two times daily after that Essential hypertension - BMP w/fasting Glucose; Future - lisinopril (PRINIVIL;ZESTRIL) 10 mg Tablet; Take 1 tablet by mouth daily. Gastroesophageal reflux disease, esophagitis presence not specified - omeprazole (PRILOSEC) 20 mg Capsule, Delayed Release(E.C.); Take 1 capsule by mouth daily. Records release signed today to get more records including labs from [facility] We will contact you about setting up depo shot for week of May 05 or Set up follow up visit with me documented in this encounter Progress Notes * Pita Narayanan MD - 04/28/2016 3:30 PM EST Here to re-est care I was running ~45 min late I met her once in 2012. Then lost to f/u here Went to [facility] for continued primary care. We have one scanned office note from a year ago Difficulties with access to continue to see her provider there, Gwen PEDRO. Pts work schedule somewhat of a factor. Transferred back here. Lives in [place] Acute issues needed addressing today incl worsening depression with SI. DM not well controlled Last visit at [facility] was 3 months ago for depo Due next May 05 to May 19 Was getting the 150 mg based on the office note we have On about a year No periods. Using for period control. Not in a sexual relationship at present #depression High PHQ9 incl SI. I don't want to be here anymore Wants to sleep all the time At night rene, snacks. Gained 10 lbs in 3 weeks Losing temper Has been on meds for a year. Feels not working From note Apr 2015, had been started on bupropion 75 mg once daily at a prior visit. phq 9 went from 19 to 14. That visit documents not wanting to go up on the dose (this is a sub therapeutic dose). No SI then Added fluoxetine 10 mg then Did not have follow up Stopped b/c insurance would not cover the fluoxetine. Has both [place] medicaid and [employer] thru employer.Issues of needing to do mail order for [employer] o/w they won't cover local, and then an issue of what the medicaid might pay for Has had depression sx since age 18 Has felt suicidal for a few months Has to get court paperwork done so that there would be custody arrangements in place if something bad happened to pt (including ) that would not allow her to care for them any more 2 daughters, each different father. They are 10 and 4 Knows multiple ways to kill self. Would not elaborate further other than to say has no weapons inthe house (see below) Never thought of hurting self until this fall Had thought about hurting others in past and has not acted on this. Knows needs to go on something when has felt that way in past. No weapons Paperwork from psychiatrist from age 12 about weapons Not able to control temper, so not able to have access to weapons. Current coping strategies: Will go into private room and call her mother or step dad (mother's current spouse)--I take care ofher mother and have met her spouse Really no other support network. ally home with pt, 4 yr old, not in school yet 8 yo not many friends Talks with her Mom daily. Did not ask about if anyone at work is a friend/supporter Her brother is busy with 4 kids incl young infant. Does not have that much contact with him Does not feel that comfortable talking with someone, ie therapist Last therapy was about 4 yrs ago In [place] Has moved a lot over this time. 10 and 4, both girls. The older ally is seeing a therapist. Current living situation is in [place] with her 2 daughters. They live in an apartment. Downstairs neighbors. They know the daughters Wants to stay there until can get bigger place. Started getting child support from 1 father only since February. Nothing prior to this. Trying on the other, needs a job. this is the father of the youngest ally First ex spouse no safety concerns Other father there are concerns. b/c of drugs. Got 2014, split a few years beforethat. Was happening at the time i met her in 2012. Works 12 hr shifts overnight. [employer]. Works overnights and could not get in Works thurs-sat 6p to 6 am Every other WEds same sched mon and tu work best for office appts Has OCD. House not unpacked after a year. No energy to do this. Freaks out when enters house. On buproprion 75 mg once daily. Then prozac but would not pay b/c not doing mail order 10. Stopped. Has [place] vmedicaid and cigna needs mail order No tobacco Smoked 3 months in 2002. This was around time her sister . No chewing tobacco Rare etoh. No illicit drugs. No misuse of prescription drugs Does not feel like is at point of needing to be hospitalized for this Discussed options: Emergency people here in crisis services Psych here at [facility] [address] for med consult Better for terminal system operator would be [facility]ma[facility] Unger Is aware of [facility]. Not sure where to start to get help on this [place] would be easier. Less chance of cancelling appts (almost cancelled today; her mother strongly encouraged her to come) Willing to have appts at [facility] Has not been on anything else for meds between 2012 and now other than what we discussed Reviewed note from 2013 Had depression 01/2012. Put on sertraline then by OB Then PCP at the time added buprop 150 bid. At time I met her 01/29 felt this was not doing anything Wanted to be off meds if possible Prior to that had been on fluox 20 At time of that visit, was having her 2nd spouse leave the house--was issue about his drug use Has not been on dulox or venlafax Willing to try this. Again, situation is complicated and needs additional specialty care PHQ9 Questionnaires Data (Clinic and Pt Entered): Today's value PHQ-9 QUESTIONNAIRE (AMB) 04/28/2016 PHQ - 9 Score (Clinic) - PHQ - 9 Score (Patient) 22 (Severe Depression) Little interest or pleasure (Clinic) - Little interest or pleasure (Patient) Nearly every day Down, depressed, hopeless (Clinic) - Down, depressed, hopeless (Patient) Nearly every day [...] off (Patient) More than half the days Contracts for safety today. Would contact her mother for emergency plan. Or stepdad if could not reach her mothre Discussed psych emergency resources here, WILLIS farm operations manager, and [facility] 24 hr hotline. Given in AVS. We had referred her to Dr Morris in 2012 and she no showed. #DM 8.0 today told to me verbally (is put in chart as 6.0)--need to clarify High for her (of note was 5.9% in 2011; 5.8% 2012)--no interval data No meds on list from April 2015 She lost weight and A1c was OK A few months ago A1c was higher. Was around 7 then she thinks. Says just over the abnormal issac Has gained 10 lbs. Cannot remember what was on before--reviewed what we had for metformin doses, was on 500 mg 1-2x/day Results for MIGDALIA MONCADA ( ) Ref. Range 01/30/2013 10:22 Sodium Latest Ref Range: 135 - 145 mmol/L 136 Potassium Latest Ref Range: 3.5 - 5.0 mmol/L 3.7 Chloride Latest Ref Range: 98 - 107 mmol/L 99 CO2 Latest Ref Range: 22 - 31 mmol/L 26 Anion Gap Latest Ref Range: 5 - 15 mmol/L 11 BUN Latest Ref Range: 8 - 18 mg/dL 9 Creatinine Latest Ref Range: 0.70 - 1.20 mg/dL 0.67 (L) Estimated GFR Latest Ref Range: >=60 >60 Glucose Fasting Latest Ref Range: 65 - 99 mg/dL 123 (H) Calcium Latest Ref Range: 8.5 - 10.5 mg/dL 8.9 Hemoglobin A1C Latest Ref Range: 4.3 - 6.1 % 5.8 Est Avg Gluc Latest Units: mg/dL 120 Chol, Total Latest Ref Range: <=199 mg/dL 160 HDL Latest Ref Range: >=40 mg/dL 40 Chol/HDL Ratio Latest Units: ratio 4.0 Triglycerides Latest Ref Range: <=149 mg/dL 233 (H) LDL Cholesterol Latest Ref Range: <=99 mg/dL 73 Did ualb today in clinic. Advised based on verbal report of 8.0%, to start metformin again. Needs BMP checked #incr BMI #HTN Weight Apr 2015 was 240 lbs. BP was 120/80 then On lisinopril, says controlled her BP. Out for a week. Needs renewed Not sure when last BMP was. #GERD Omeprazole 40 worked. Insurance issues forced her to stop. Put on ranitidine 150 mg /day. Not helpful. The 20 mg OTC prilosec helps Other issues that did not have more f/u from Apr 2015 (not reviewed at any length): CADY--was on CPAP before , stopped while , wanted another sleep study--was seen here at in 2010. Had a CPAP titration study 11/2010. Was reporting Apr 2015 poor sleep at night, snoring, resltess legs, daytime sleepiness, and frequent daily PADILLA Left carpal tunnel--has had EMG, positive both sides. Had R sided release. Dr Chawla. Wanted referral for left side Hip pain--saw chiropractor but pt feels this made things worse REVIEW OF SYSTEMS 04/28/2016 Constitutional Weight gain, Fatigue, lack of energy, Drowsiness, Pain Ear / nose / throat / mouth None of the above Eyes Blurry vision, Dry eyes Respiratory Cough, Thick mucous or spit (Sputum or Phlegm) Cardiovascular Don't know Gastrointestinal Heartburn, indigestion, Constipation, Change in stools, Appetite problems Skin, hair Dry skin Musculoskeletal Back pain, Other symptoms with joints or muscles Neurological Headaches Hematologic / Lymphatic None of the above Genitourinary None of the above Immunization History Administered Date(s) Administered ??? Hepatitis B Vaccine, unspecified formulation 01/18/2004 ??? Influenza PF, Split 05/14/2011 ??? Influenza Vaccine, Whole 03/21/2008 ??? MMR Vaccine, Live 12/20/2011 ??? Meningococcal Conjugate 01/23/2004 ??? Pneumococcal Polyvalent 23 04/09/2008 ??? Rho (D) Immune Globulin, IV or IM 10/13/2011 ??? Td, adult 01/18/2004 ??? Tdap Vaccine 01/30/2013 Did not have time to review flu shot today Exam VS+3 noted. BP 138/84 (BP Location (NBP): Left arm, Patient Position: Sitting, BP Cuff Sizes: Large Adult (32-43 cm)) Pulse 78 Temp 36.7 ??C (98 ??F) (Oral) Resp 16 Ht 165.4 cm (5' 5.12) Wt (!) 110.8 kg (244 lb3.2 oz) LMP Comment: Depo SpO2 98% BMI 40.49 kg/m2 Repeat BP was higher Wt was 240 lbs Apr 2015 at [facility] visit Alert, affect appropriate to situation, calm. Speech fluent. NAD Erythema and fine scale around eyelids that looks c/w eyelid dermatitis (did not review further). Anicteric sclerae Mouth: [place] teeth, OP moist, no lesions Neck supple no LAD Card RRR no m/r/g resp post lung zones clear abd protuberant, NABS, soft NT ND Legs no edema Feet no lesions, skin intact, DP 2+ bilat. Mild to mod fungal changes of some toenails Did not have time to do monofilament exam A/P Patient Instructions--modified from Ibrahim was seen today for establish care. Diagnoses and all orders for this visit: Severe episode of recurrent major depressive disorder, without psychotic features. +SI going on several months. In need of more specialized care. - venlafaxine (EFFEXOR-XR) 37.5 mg Capsule, Sust. Release 24 hr; Take 1 capsule by mouth daily for 7 days. Use this first - venlafaxine (EFFEXOR-XR) 75 mg Capsule, Sust. Release 24 hr; Take 1 capsule by mouth daily. Starttaking after finishing the 37.5 mg capsules Take the bupropion the first week on the low dose venlafaxine. Then stop the bupropion and continueon the higher dose venlafaxine [facility] Psychiatry emergency services: [phone] [facility] Emergency room: [phone] WILLIS PENALOZA farm operations manager after 5 pm and on weekends; through [facility] [employer] [phone] [facility] 24 hr emergency line ([place], [place]) [facility] intake [phone]; [facility] intake [phone] The preferred route for ongoing care is with [facility] since this is closer We will arrange referrals for our consulting psychiatrist here at [facility] [address] and with one of the crisis staff in psychiatry, if needed. You contracted for safety today See emergency resources above Type 2 diabetes mellitus without complication, unspecified chcf insulin use status - POCT glycated hemoglobin, total (HA1C)--8.0% not controlled (need to clarify result with clinic staff) - U Albumin/Cre Ratio - BMP w/fasting Glucose; Future Start metformin: - metFORMIN (GLUCOPHAGE) 500 mg Tablet; Take 1 tablet by mouth 2 times daily (with meals). Start with one pill once daily for 7 days then go up to two times daily after that Essential hypertension - BMP w/fasting Glucose; Future - lisinopril (PRINIVIL;ZESTRIL) 10 mg Tablet; Take 1 tablet by mouth daily. Get back on this medication Gastroesophageal reflux disease, esophagitis presence not specified - omeprazole (PRILOSEC) 20 mg Capsule, Delayed Release(E.C.); Take 1 capsule by mouth daily. Could not easily find PPI's on [place] medicaid formulary. Went with this for now and will see if covered Menstrual disorder - medroxyPROGESTERone (DEPO-PROVERA) 150 mg/mL Suspension; Inject 1 mL into the muscle Q 3 Months. Next is due between May 05 and 2016. Previously administered at [facility] Need to get set up. I could not easily see how to set this up as a standing order in ED. Will ask for help from team nurses Obstructive sleep apnea --needs more f/u. Would benefit from sleep center [facility]; last was 11/2010. Did not have time to explore why not on CPAP any more. Suspect sleep disturbance described from this may be contributing to worsening mood and difficulties with her weight and DM Increased BMI Body mass index is 40.49 kg/(m^2). Will check TSH Records release signed today to get more records including labs from [facility] We will contact you about setting up depo shot for week of May 05 or Set up follow up visit with me in next 3-4 weeks to f/u on things we could not address today Would benefit from having her get mail order meds coordinated so that she is not shut out of certain meds. Unclear whether care mgmt staff can help with this (usually pts take care of this on their own)--perhaps her mother could be of assistance 419 pm start Multiple interruptions due to pages I was getting Printed AVS at 525 pm Estimate 45 minutes spent face to face in pt eval, and 30 min in counseling and coord of care on the multiple issues above documented in this encounter Plan of Treatment Scheduled Referrals Name Type Priority Associated Diagnoses Order Schedule Referral to Psych Collaborative Care (Primary Care Only) Outpatient Referral Routine Severe episode of recurrent major depressive disorder, without psychotic features Ordered: 04/29/2016 documented as of this encounter Procedures Procedure Name Priority Date/Time Associated Diagnosis Comments POCT GLYCATED HEMOGLOBIN, TOTAL (HA1C) Routine 04/28/2016 4:24 PM EST Type 2 diabetes mellitus without complication, unspecified chcf insulin use status URINE HOLD Routine 04/28/2016 4:10 PM EST U ALBUMIN/CRE RATIO Routine 04/28/2016 4 :10 PM EST Type 2 diabetes mellitus without complication, unspecified chcf insulin use status documented in this encounter Results * (ABNORMAL) BMP w/fasting Glucose (05/11/2016 10:28 AM EST) [facility] Glucose Fasting 175(H) 65 - 99 mg/dL [facility] Comment: ?Fasting* Glucose Interpretive Criteria Normal ?65-99 mg/dL Impaired Fasting glucose ?100-125 mg/dL Consistent with Diabetes Mellitus ? >or= 126 mg/dL *Fasting is defined as no caloric intake for at least 8 hours In the absence of unequivocal hyperglycemia a plasma glucose value of >or= 126 mg/dL should be repeated on a subsequent day. Diagnosis and Classification of Diabetes Mellitus, Position Statement from the [place] [employer]. ??Diabetes Care, Volume 33, Supplement 1, Apr 2009 BUN 15 8 - 18 mg/dL [facility] Creatinine 0.72 0.70 - 1.20 mg/dL [facility] Comment: Please note that the pediatric reference intervals supplied above were not validated at [facility]. Results from pediatric patients should be interpreted in conjunction to the patient's age, height and muscle mass. Sodium 142 135 - 145 mmol/L [facility] Potassium 4.3 3.5 - 5.0 mmol/L [facility] Comment: Please note: ??Patients with WBC >100,000 may have falsely elevated Potassium levels. ??For accurate Potassium quantification in these patients send serum separator tube (gold top) for subsequent determinations. ??Contact the Clinical Chemistry Laboratory if there are any questions. Chloride 102 98 - 107 mmol/L [facility] CO2 28 22 - 31 mmol/L [facility] Anion Gap 12 5 - 15 mmol/L [facility] Calcium 9.4 8.5 - 10.5 mg/dL [facility] Estimated GFR >60 >=60 [facility] Comment: This estimated GFR (eGFR) value was calculated using the MDRD equation which has been validated on patients between the ages of 18 and 70. The MDRD should not be used to assess kidney function in patients < 18 years of age or in patients with extremes of body mass, or in patients with acute kidney failure. This value should be multiplied by 1.2 for patients. For further information please copy and paste the following links into your internet browser. [email or web address] Blood specimen (specimen) 05/11/2016 10:28 AM EST 05/11/2016 1:46 PM EST Narrative Resulting Agency Comment Spec In Lab Pita Narayanan MD CHEMISTRY ORDERABLES [facility] [place] [address] * (ABNORMAL) POCT glycated hemoglobin, total (HA1C) (04/28/2016 4:24 PM EST) POC HA1C 8.0(A) 4.3 - 5.6 % Blood specimen (specimen) 04/28/2016 4:24 PM EST Pita Narayanan MD POINT OF CARE TEST O RDERABLES * Urine Hold (04/28/2016 4:10 PM EST) Pathologist [facility] Urine Hold Sample in lab. [facility] Urine specimen (specimen) Urine / Unknown 04/28/2016 4:10 PM EST 04/29/2016 9:34 AM EST Pita Narayanan MD URINE ORDERABLES [facility] [place] [address] * U Albumin/Cre Ratio (04/28/2016 4:10 PM EST) Alb/Cr Ratio, Random Not Calculated 0 - 29 mcg/mg Cr [facility] Comment: Reference Ranges: <30 mcg/mg: [...] 362 U Albumin Conc, Random <3.0 mg/L [facility] U Creatinine 100 mg/dL [facility] Urine specimen (specimen) 04/28/2016 4:10 PM EST 04/29/2016 11:17 AM EST Narrative Resulting Agency Comment Spec In Lab Pita Narayanan MD URINE ORDERABLES [facility] [place] [address] documented in this encounter Visit Diagnoses Diagnosis Severe episode of recurrent major depressive disorder, without psychotic features Type 2 diabetes mellitus without complication, unspecified terminal system operator insulin use status Essential hypertension Unspecified essential hypertension Gastroesophageal reflux disease, esophagitis presence not specified Menstrual disorder Unspecified disorder of menstruation and other abnormal bleeding from female genital tract Obstructive sleep apnea Obstructive sleep apnea (adult) (pediatric) Increased BMI Other symptoms concerning nutrition, metabolism, and development documented in this encounter Care Teams International Trade Compliance Manager Relationship Specialty Start Date End Date Pita Narayanan MD [facility] [place] [address] PCP - General General Internal Medicine 01/28/1604/22 documented as of this encounter
--- OUTSIDE RECORDS SUMMARY | 2023-10-28 21:39 | XMS_ITS | Encounter Summary ---
Author Organization [facility] [place] [address] Care Team Providers Care Dj Instructor Name Role Phone Carlos Alberto Ag MD Primary Care Provider Encounter Details Date Type Department Care Team (Latest Contact Info) Description 06/03/2017 9:25 AM EST Laboratory Appointment Lab 3L [facility] [place] [id number] Hypertension, unspecified type; Type 2 diabetes mellitus without complication, without [...] Date/Time Associated Diagnosis Comments HEMOGLOBIN A1C Routine 06/03/2017 9:44 AM EST Type 2 diabetes mellitus without complication, without long-term current use of insulin BASIC METABOLIC PANEL (NON-FASTING) Routine 06/03/2017 9:44 AM EST Hypertension, unspecified type U ALBUMIN/CRE RATIO Routine 06/03/2017 9 :41 AM EST Type 2 diabetes mellitus without complication, without long-term current use of insulin documented in this encounter Results * (ABNORMAL) Hemoglobin A1c (06/03/2017 9:44 AM EST) Hemoglobin A1C 7.2(H) 4.3 - 5.6 % [facility] Comment: Reference Range: 4.3 - 5.6% [...] 1, S67-74 Est Avg Gluc 160 mg/dL [facility] Comment: eAG equivalents for HbA1c [...] into estimated average glucose values. ??Diabetes Care 2008:31(8):5289-1768. Blood specimen (specimen) 06/03/2017 9:44 AM EST 06/03/2017 9:51 AM EST Narrative Resulting Agency Comment Spec In Lab Jacqueline Cleveland MD CHEMISTRY ORDERABLES Performing Organization Address City/[facility]/ZIP Co de Phone Number [facility] [place] [address] * (ABNORMAL) Basic Metabolic Panel (non-fasting) (06/03/2017 9:44 AM EST) Glucose Lvl 177 65 - 199 mg/dL [facility] Comment:Diabetes: >=200 mg/d L plus symptoms BUN 16 8 - 18 mg/dL [facility] Creatinine 0.68(L) 0.70 - 1.20 mg/dL [facility] Sodium 140 135 - 145 mmol/L [facility] Potassium 4.0 3.5 - 5.0 mmol/L [facility] Comment: Please note: ??Patients with WBC >100,000 may have falsely elevated Potassium levels. ??For accurate Potassium quantification in these patients send serum separator tube (gold top) for subsequent determinations. ??Contact the Clinical Chemistry Laboratory if there are any questions. Chloride 99 98 - 107 mmol/L [facility] CO2 27 22 - 31 mmol/L [facility] Anion Gap 14 5 - 15 mmol/L [facility] Calcium 9.0 8.5 - 10.5 mg/dL [facility] Estimated GFR >60 >=60 [facility] Comment: The reported eGFR should be multiplied by 1.2 for patients. The MDRD is not an appropriate measure of renal function for patients with body mass extremes or in patients with acute kidney failure. [email or web address] Blood specimen (specimen) 06/03/2017 9:44 AM EST 06/03/2017 9:51 AM EST Narrative Resulting Agency Comment Spec In Lab Jacqueline Cleveland MD CHEMISTRY ORDERABLES Performing Organization Address City/[facility]/ZIP Co de Phone Number [facility] [place] [address] * U Albumin/Cre Ratio (06/03/2017 9:41 AM EST) Alb/Cr Ratio, Random Not Calculated 0 - 29 mcg/mg Cr [facility] Comment: Reference Ranges: <30 mcg/mg: Normal [...] 362 U Albumin Conc, Random <3.0 mg/L [facility] U Creatinine 120 mg/dL [facility] Urine specimen (specimen) 06/03/2017 9:41 AM EST 06/03/2017 9:51 AM EST Narrative Resulting Agency Comment Spec In Lab Jacqueline Cleveland MD URINE ORDERABLES [facility] [place] [address] documented in this encounter Visit Diagnoses Diagnosis Hypertension, unspecified type Type 2 diabetes mellitus without complication, without long-term current use of insulin documented in this encounter Care Teams Dj Instructor Relationship Specialty Start Date End Date Carlos Alberto Ag MD [facility] [place] [address] PCP - General General Internal Medicine 04/26/17 10/31/19 documented as of this encounter
--- OUTSIDE RECORDS SUMMARY | 2023-10-28 21:39 | XMS_ITS | Encounter Summary ---
Author Organization [facility] Address [facility] [place] [address] Care Team Providers Care Cable Reeler Name Role Phone Pita Narayanan MD Primary Care Provider [phone] Encounter Details Date Type Department Care Team (Latest Contact Info) Description 05/11/2016 10:15 AM EST Laboratory Appointment Lab at [facility] [address] [place] [address] Type 2 diabetes mellitus without complication, unspecified half-way insulin use status; Essential hypertension Social History Tobacco Use Types [...] Procedure Name Priority Date/Time Associated Diagnosis Comments BMP W/FASTING GLUCOSE Routine 05/11/2016 10:28 AM EST Type 2 diabetes mellitus without complication, unspecified manager long term care insulin use status Essential hypertension documented in this encounter Results * (ABNORMAL) BMP w/fasting Glucose (05/11/2016 10:28 AM EST) Glucose Fasting 175(H) 65 - 99 mg/dL [...] of Diabetes Mellitus, Position Statement from the [place] [employer]. ??Diabetes Care, Volume 33, Supplement 1, Apr 2009 BUN 15 8 - 18 mg/dL [facility] Creatinine 0.72 0.70 - 1.20 mg/dL [facility] Comment: Please note that the pediatric reference intervals supplied above were not validated at [facility]. Results from pediatric patients should be interpreted [...] [facility] Estimated GFR >60 >=60 [facility] Comment: This estimated GFR (eGFR) value [...] the following links into your internet browser. [email or web address] Blood specimen (specimen) 05/11/2016 10:28 AM EST 05/11/2016 1:46 PM EST Narrative Resulting Agency Comment Spec In Lab Pita Narayanan MD CHEMISTRY ORDERABLES Performing Organization Address City/State/[facility] Co de Phone Number [facility] [place] [address] documented in this encounter Visit Diagnoses Diagnosis Type 2 diabetes mellitus without complication, unspecified manager long term care insulin use status Essential hypertension Unspecified essential hypertension documented in this encounter Care Teams Cable Reeler Relationship Specialty Start Date End Date Pita Narayanan MD [facility] [address] [facility] [place] [address] PCP - General General Internal Medicine 01/28/1604/22 documented as of this encounter
--- OUTSIDE RECORDS SUMMARY | 2023-10-28 21:39 | XMS_ITS | Encounter Summary ---
Author Organization [facility] Address [facility] [address] [place] [address] Care Team Providers Care Distribution Technician Name Role Phone Enoch Medina MD Primary Care Provider [phone] Reason for Visit * Reason Comments Medication Refill Encounter Details Date Type Department Care Team ([facility] st Contact Info) Description 01/09/2017 Refill Internal Medicine at [facility] [address] [place] [address] [place] [address] Essential hypertension Social History Tobacco Use Types [...] encounter Miscellaneous Notes * Telephone Encounter - Colby Reed - 01/12/2017 3:20 PM EDT Cancel this request - Pt no longer uses [facility] - Now using [facility] [place] * Telephone Encounter - Aisha Powers MA - 01/11/2017 12:14 PM EDT Called Pt and left VM. Call is in regards to lisinopril Rx. Need to verify if she wants the [facility] pharmacy, or mail order. And if mail order, which one? Thank you, Mary Powers MA My ext is [phone] documented in this encounter Plan of Treatment Not on file documented as of this encounter Visit Diagnoses Diagnosis Essential hypertension Unspecified essential hypertension documented in this encounter Care Teams Distribution Technician Relationship Specialty Start Date End Date Enoch Medina MD [facility] [address] [place] [address] PCP - General Family Medicine 08/22/20 06/03/21 documented as of this encounter
--- OUTSIDE RECORDS SUMMARY | 2023-10-28 21:39 | XMS_ITS | Encounter Summary ---
Author Organization [facility] [place] [address] Care Team Providers Care Corrosion Control Fitter Name Role Phone Pita Narayanan MD Primary Care Provider Encounter Details Date Type Department Care Team (Late st Contact Info) Description 04/13/2014 Telephone Internal Medicine at [facility] [address] [place] [phone] Angélica Ochoa Social History Tobacco Use Types Packs/Day Years [...] encounter Miscellaneous Notes * Telephone Encounter - Angélica Chanel - 04/13/2014 1:02 PM EST error documented in this encounter Plan of Treatment Not on file documented as of this encounter Visit Diagnoses Not on filedocumented in this encounter Care Teams Corrosion Control Fitter Relationship Specialty Start Date End Date Pita Narayanan MD [facility] [place], [place] [id number] PCP - General 12/01/12 04/21/15 documented as of this encounter
--- OUTSIDE RECORDS SUMMARY | 2023-10-28 21:39 | XMS_ITS | Encounter Summary ---
Author Organization [facility] [place] [address] Care Team Providers Care Surgical Services Director Name Role Phone Pita Narayanan MD Primary Care Provider [phone] Encounter Details Date Type Department Care Team (Late st Contact Info) Description 09/21/2016 Telephone Internal Medicine at [facility] [address] [place] [address] Faye Jackson RN Social History Tobacco Use Types Packs/Day Years [...] encounter Miscellaneous Notes * Telephone Encounter - Mara Phoenix RN - 09/24/2016 3:55 PM EDT Returned call to pt, verified name and . Reviewed the PHQ 9 form via phone with pt. Total score today was a 10. Asked if pt felt like she was improving with the latest increase in the medication and pt states ' Yes '. Pt did note that she was having her mother help with some of the problems she was having and thingsare turning around at the time. Encouraged pt to call office if she needed any support and she said she would. * Telephone Encounter - Deya Odonnell - 09/24/2016 3:21 PM EDT Patient returning call to nurse. Attempted nurse, no answer. Can be reached at [phone] until 6:30 this evening * Telephone Encounter - Faye Jakcson RN - 09/21/2016 8:37 AM EDT Attempted to reach Patient by phone - Patients mother answers and states Patient works overnights and is sleeping will return call ~ 4:00pm * Telephone Encounter - Faye Jackson RN - 09/21/2016 7:43 AM EDT ----- Message from Pita Narayanan MD sent at 08/20/2016 6:19 PM EDT ----- Regarding: pls check on mood/med change Hi Seen early August incr venlafaxine 112.5-->150 mg/day pls do 1 month phone checkin on how her mood is You can see phq9 scores from apr and august in august 20 office note thx cb documented in this encounter Plan of Treatment Not on file documented as of this encounter Visit Diagnoses Not on filedocumented in this encounter Care Teams Surgical Services Director Relationship Specialty Start Date End Date Pita Narayanan MD [facility] [address] [facility] [address] PCP - General General Internal Medicine 01/28/1604/22 documented as of this encounter
--- OUTSIDE RECORDS SUMMARY | 2023-10-28 21:39 | XMS_ITS | Encounter Summary ---
Author Organization [facility] Veronica barbayu [place] [id number] Care Team Providers Care Transition Nurse Name Role Phone Pita Narayanan MD Primary Care Provider [phone] Reason for Referral * Psychiatric (Routine) - Closed Specialty Diagnoses / Procedures Referred By Contac t Referred To Contact Primary Care Diagnoses Depression Pita Narayanan MD [facility] [place] [address] Karsten Morris MD [facility] [place] [address] Referral ID Status Reason Start Date Expiration Date V isits Requested Visits Authorized [id number] Closed Consult, Test & Treat 01/30/2013 07/29/2013 1 1 Reason for Visit * Reason Comments Establish Care wants to discuss new anti-depressant; may need refills Encounter Details Date Type Department Care Team (Late st Contact Info) Description 01/30/2013 8:25 AM EDT Office Visit Internal Medicine at [facility] [address] [place] [address] Pita Narayanan MD [facility] [place] [address] Healthcare maintenance (Primary Dx); Diabetes mellitus type II; Hypertension; Depression; Gastroesophageal reflux disease Discharge Disposition: Home Social History Tobacco Use [...] Sign Reading Time Taken Comments Blood Pressure 166/110 01/30/2013 9:56 AM EDT left arm sitting large cuff Pulse 77 01/30/2013 8:54 AM EDT Temperature 36.8 ??C (98.3 ??F) 01/30/2013 8 :54 AM EDT Respiratory Rate 16 01/30/2013 8:54 AM EDT Oxygen Saturation 99% 01/30/2013 8:5 4 AM EDT Inhaled Oxygen Concentration - - Weight 112.6 kg (248 lb 3.2 oz) 01/30/2013 8:54 AM EDT Height 165.7 cm (5' 5.25) 01/30/2013 8 :54 AM EDT Body Mass Index 40.99 01/30/2013 8:54 AM EDT documented in this encounter Patient Instructions * Patient Instructions* Pita Narayanan MD - 01/30/2013 9:36 AM EDT Labs, fasting, today on level 3 Tdap vaccine today Urine test for protein today in clinic. Call to make eye appt for annual diabetic eye exam. We encourage you to get a flu shot this fall. Free public flu shot clinics will be offered this year on: February 11Wednesday, 0800 am - 1 pm, [facility] Auditorium A, B, C Referral for medication consult with Dr Morris, our consulting psychiatrist at [facility] Psychiatry emergency services: [phone] [facility] Emergency room: [phone] [facility] air traffic controller center after 5 pm and on weekends; through [facility] Academic Associate [phone] [facility] 24 hr emergency line [facility] ([place]) 24 hr emergency line ; appt intake line [phone] While waiting for visit with Dr Morris: Trial of going down on the bupropion to 150 mg once a day for at least 2-3weeks. If OK with that then stop the medication and see how you do. If your mood worsens then restart the medication Hypertension (High Blood Pressure) Plan of Care Blood pressure today was BP: 177/100 mmHg. This is not at goal. Goal blood pressure: 130/80 or less Plan for improving blood pressure control: [] Change medication as follows: might consider going back to Lisinopril depending on the results of the tests today [] Self management plan: Patient goal to address this: Recheck BP outside of clinic--sit for 5-10 minutes before checking. Send us the readings. If not within goal then we will need to follow up on this. What, when, how, where, how often, barriers to goal: Confidence for achieving goal (0-10): [] Clinician follow up: [] Nurse follow up: Nurse directions: If blood pressure not at goal: [x] Referrals/Labs/testing: Monitoring labs due and ordered today. This plan of care was made in collaboration with the patient/family. Records release for Dr Carlos's office at [facility]. Last 5 years will be sufficient. Normal foot sensation to the monofilament today. Next visit with Dr Narayanan in the next 3 months or so depending on the results of the above tests. documented in this encounter Progress Notes * Pita Narayanan MD - 01/30/2013 8:54 AM EDT Here to est care Chart reviewed briefly before visit. Appears to have seen Dr Carlos at [facility] for most recent PCP; no records received. Will do records release Reviewed medical technologist prn notes Did not do questionnaire before visit Last saw Dr Carlos--can't remember. Thinks once in the last year. Last delivery 11/28 repeat c section. That preg complicated by DM, HTN, preeclampsia Per hosp d/c summary from that delivery, was put on/resumed metformin, methyldopa, nifedipine depression noted at post visit 01/28--started on sertraline and advised to f/u with PCP Adhesions noted. Advised not to get again. #depression Has had sx off and on since age 18 Last yr put on sertraline 25 In a few months put on bupropion 150 bid. Doesn't miss doses Wants to change antidepressant. Doesn't feel it is doing anything. Would like to be off meds if possible. Has been on other meds off and on, usu PCP has prescribed. Only other on record has been prozac 20. Family losses, 2 sisters and uncle, 2002, 2004. She is having her spouse move out today. 2 children--almost 7, and just over 1 yr old. Was functioning as single parent recently Sister will help take care of children while going to work. Together 3 years, for a year. She is suspicious he is using pain medications No threats of physical violence, no police involvement No verbal or emotional abuse He went to inpt rehab for a few weeks, she feels this did not change. Was renting with brother, just moved, now in an apartment, in [place]. Works at [employer] in [facility]. Discussed job security. They have EAP. Says has gotten irritated and walks out. Can be tempermental. Has seen people for this Had worked on this before her sister . Then had a setback with this. PHQ9 is 7. Has been more depressed in past Support network--mother, friend who lives with them, knows 19 years. Mother lives in [place]. There is fhx of depression, anger issues I take care of her mother. No prior abuse hx. No abuse issues with first marriage Father of older child lives in [facility]. This father not really involved. #DM Says her mother wants me to check her sugars. Pt doesn't check very much. Was better about checkingwhen . A1c 5.9% 05/31. Says was dx 2007. On metformin 500 mg once daily Thinks last A1c was in the last year, was below 7. Not told has proteinuria, not on ACEI Can't remember last time urine test Due for eye exam--goes to [facility] in [facility]. No foot paresthesias. Not on anything for cholesterol, has not been told LDL has been bad. No obvious complications of DM Has carpal tunnel so has numbness in hands #HTN On methyldopa 250 mg BID. Doesn't miss doses. Needs RF on this Not on nifedipine. Doesn't have home cuff Doesn't check BP much. Did not take medication today. BP is elevated in office. #contraceptive mgmt Remote thought that might want to get . Aware of risks to her on this. Xptrei11, also helps regulate menses. Has 1 RF left. Gets 1 pack at a time. No probs with spotting or intermenstrual bleeding. Menses light on the pill. #GERD Longstanding 40 mg prilosec No dysphagia. If not on med, then everything gives heartburn. Thinks had EGD Preventive care Pap 05/31, normal. Per that report, no hx abnormal. No cervical cancer. OK with skipping today. Lipids HIV neg 05/31 Imms Flu 04/2011. Usually gets. Hasn't gotten yet this year. Discussed getting. Td 2002. No hx seizures, willing to get tdap Last dentist ~1 yr ago FHx No fam history of colon cancers. Mother - Type II DM, h/o hysterectomy for uterine cancer; asthma Father - , throat cancer and lung cancer Sister age 30 of brain tumor, 2002 Sister, half, had ALS, 2004 Brother alive and well. Generally good relationship but he sold trailer out on them. They got behind on payment. He lives in [place] Thinks that she has women in her family with breast and ovarian cancer, but she cannot say who. Meds, alls reviewed. Brings pictures of her meds on her phone. Doesn't seem that familiar with her meds. ROS: see HPI Exam VS+3 noted. BP 166/110 Pulse 77 Temp 36.8 ??C (98.3 ??F) (Oral) Resp 16 Ht 165.7 cm (5' 5.25) Wt 112.583 kg (248 lb 3.2 oz) BMI 40.99 kg/m2 SpO2 99% LMP 01/16/2013 ? No Repeat BP not better. Alert, NAD TM's old scarring (prior tubes) , PERRL, anicteric, OP moist Neck plethoric no lad or thyromegaly Card RRR Lungs clear Breast small, no dominant mass, +acanthosis in both axillae, +fibroglandular change, no nipple d/c or axillary LAD abd NABS soft NT ND normal resonance No pretib edema Some maceration toe webs left 3rd/4th DP 2+ bilat Monofilament intact in feet bilat A/P Sarah was seen today for establish care. Diagnoses and associated orders for this visit: Healthcare maintenance - Tdap vaccine greater than or equal to 7yo IM - BMP w/fasting Glucose; Future - Lipid panel (fasting); Future - Hemoglobin A1c; Future - TSH; Future Pap in next 1-2 years - levonorgestrel-ethinyl estradiol (AVIANE) 0.1-20 mg-mcg per tablet; Take 1 tablet by mouth daily. Records release from [facility]--additional background would have been helpful to have. Diabetes mellitus type ii - BMP w/fasting Glucose; Future - Lipid panel (fasting); Future - Hemoglobin A1c; Future - TSH; Future - Microalbumin, urine, random - metFORMIN (GLUCOPHAGE) 500 mg tablet; Take 1 tablet by mouth daily. Hypertension--elevated today. See AVS for POC - methyldopa (ALDOMET) 250 mg tablet; Take 1 tablet by mouth 2 times daily. Depression - TSH; Future - Referral to Psychiatry--Dr Morris--med consultation. Given hx of intermittent problems over time,may need longer term connection with someone in community. Current stressor with home/marital strain discussed. - buPROPion (WELLBUTRIN SR) 150 mg 12 hr tablet; Take 150 mg by mouth 2 times daily. General impression today of not being that invested in care of her chronic conditions, and would rather be off psych meds, unclear if all related to mood d/o. Gastroesophageal reflux disease - omeprazole (PRILOSEC) 40 mg capsule; Take 1 capsule by mouth daily. RTC 3 months or sooner pending test results today. See AVS documented in this encounter Plan of Treatment Scheduled Referrals Name Type Priority Associated Diagnoses Order Schedule Referral to Psychiatry Outpatient Referral Routine Depression Ordered: 01/30/2013 documented as of this encounter Procedures Procedure Name Priority Date/Time Associated Diagnosis Comments BMP W/FASTING GLUCOSE Routine 01/30/2013 10:22 AM EDT Healthcare maintenance Diabetes mellitus type II TSH Routine 01/30/2013 10:22 AM EDT Healthcare maintenance Diabetes mellitus type II Depression HEMOGLOBIN A1C Routine 01/30/2013 10:22 AM EDT Healthcare maintenance Diabetes mellitus type II LIPID PANEL (REFLEX DIRECT LDL) Routine 01/30/2013 10:22 AM EDT Healthcare maintenance Diabetes mellitus type II U ALBUMIN/CRE RATIO Routine 01/30/2013 1 0:07 AM EDT Diabetes mellitus type II documented in this encounter Results * TSH (01/30/2013 10:22 AM EDT) TSH 2.35 0.27 - 4.20 mcIU/mL [facility] Blood specimen (specimen) 01/30/2013 10:22 AM EDT 01/30/2013 12:32 PM EDT Narrative Resulting Agency Comment Spec In Lab Pita Narayanan MD CHEMISTRY ORDERABLES [facility] * Hemoglobin A1c (01/30/2013 10:22 AM EDT) Hemoglobin A1C 5.8 4.3 - 6.1 % [facility] Comment: The [place] Diabetes Association (ADA) has stated that HbA1c values >or= 6.5% are consistent with the diagnosis of diabetes mellitus. In the absence of hyperglycemia (i.e. plasma glucose > 200 mg/dL) or classic symptoms of hyperglycemia a repeat measurement of HbA1c should be performed on a separate sample to confirm the diagnosis. The ADA also considers an HbA1c value between 5.7% and 6.4% to be consistent with an increased risk of diabetes (prediabetes). Patients with an HbA1c value in this range should be counseled about their increased risk of progressing to diabetes. Reference: Position Statement: Standards of Medical Care in Diabetes 2013. Diabetes Care 2013:36;suppl 1:S11-S66. Est Avg Gluc 120 mg/dL [facility] Comment: eAG equivalents for HbA1c percentages: HbA1c(%) ?eAG(mg/dL) 6.0 ?126 6.5 ?140 7.0 ?154 7.5 ?169 8.0 ?183 8.5 ?197 9.0 ?212 9.5 ?226 10.0 ? 240 Limitations: The eAG calculation has not been validated on women, individuals below 18 years old and above 70 years old, and individuals with hemoglobinopathies. Additional resources are available on the ADA website: ??http://professional.diabetes.org/glucosecalculator.aspx Jose BLANKENSHIP, Kate J, Alexis R, et al. ??Translating the A1C assay into estimated average glucose values. ??Diabetes Care 2008:31(8):0786-1556. Blood specimen (specimen) 01/30/2013 10:22 AM EDT 01/30/2013 12:34 PM EDT Narrative Resulting Agency Comment Spec In Lab Pita Narayanan MD CHEMISTRY ORDERABLES [facility] * (ABNORMAL) Lipid panel (fasting) (01/30/2013 10:22 AM EDT) Chol, Total 160 <=199 mg/dL [facility] Comment: Recommendations of the NCEP Adult Treatment Panel for the following risk cutoff thresholds for the [place] population: Desirable: <200 mg/dL Borderline High: 200-239 mg/dL High: > or = 240 mg/dL Triglycerides 233(H) <=149 mg/dL [facility] Comment: Reference Range: Normal triglycerides: ??<150 mg/dL Borderline high: ??150-199 mg/dL High: ??200-499 mg/dL Very high: ??>vj=066 mg/dL PATRICA 2001; 285(19):9026-8634 HDL 40 >=40 mg/dL [facility] Comment: Reference range: ??Low HDL: ?? < 40 mg/dL ??Normal: ?40-60 mg/dL ??Desirable: > 60 mg/dL PATRICA 2001; 285(19):6363-4038 LDL Cholesterol 73 <=99 mg/dL [facility] Comment: Reference range: ?? Optimal: ?<100 mg/dL ?? Near Optimal/Above Optimal: ?? 100-129 mg/dL ?? Borderline high: ?130-159 mg/dL ?? High: ? 160-189 mg/dL ?? Very high: ?>nv=006 mg/dL PATRICA 2001: 285(19):7303-7946 Chol/HDL Ratio 4.0 ratio ZEVNJ Stevo [facility] Comment: A Cholesterol to HDL ratio below 4:1 is desirable. ??Studies suggest that increased CAD risk occurs at ratios above 5 for females and above 6 for men. ? [place] Heart Association ??(http://www.americanheart.org) ? Michaela Int Med, 1994; 121:641 ? AM J Med, 1998; 105(1A):48S Blood specimen (specimen) 01/30/2013 10:22 AM EDT 01/30/2013 12:32 PM EDT Narrative Resulting Agency Comment Spec In Lab Pita Narayanan MD CHEMISTRY ORDERABLES [facility] * (ABNORMAL) BMP w/fasting Glucose (01/30/2013 10:22 AM EDT) Glucose Fasting 123(H) 65 - 99 mg/dL [facility] Comment: ?Fasting* Glucose Interpretive Criteria Normal ?65-99 [...] of Diabetes Mellitus, Position Statement from the [place] Diabetes Association. ??Diabetes Care, Volume 33, Supplement 1, Apr 2009 BUN 9 8 - 18 mg/dL CERNER MILLENNIUM Creatinine 0.67(L) 0.70 - 1.20 mg/dL [facility] MILLENNIUM Comment: Please note that the pediatric reference intervals supplied above were not validated at [facility]. Results from pediatric patients should be interpreted in conjunction to the patient's age, height and muscle mass. Sodium 136 135 - 145 mmol/L CERNER MILLENNIUM Potassium 3.7 3.5 - 5.0 mmol/L [facility] MILLENNIUM Comment: Please note: ??Patients with WBC >100,000 may have falsely elevated Potassium levels. ??For accurate Potassium quantification in these patients send serum separator tube (gold top) for subsequent determinations. ??Contact the Clinical Chemistry Laboratory if there are any questions. Chloride 99 98 - 107 mmol/L CERNER MILLENNIUM CO2 26 22 - 31 mmol/L CERNER MILLENNIUM Anion Gap 11 5 - 15 mmol/L CERNER MILLENNIUM Calcium 8.9 8.5 - 10.5 mg/dL CERNER MILLENNIUM Estimated GFR >60 >=60 [facility]ERNER MILLENNIUM Comment: This estimated GFR (eGFR) value was [...] the following links into your internet browser. http://www.nkdep.nih.gov/lab-evaluation.shtml http://www.kidney.org/professionals/ Blood specimen (specimen) 01/30/2013 10:22 AM EDT 01/30/2013 12:32 PM EDT Narrative Resulting Agency Comment Spec In Lab Pita Narayanan MD CHEMISTRY ORDERABLES Performing Organization Address City/[facility] Co de Phone Number ANA GILMAN * Microalbumin, urine, random (01/30/2013 10:07 AM EDT) U Creatinine 166 mg/dL CERNER MILLENNIUM U Albumin Conc, Random 169.9 mg/L CERNER MILLENNIUM Alb/Cr Ratio, Random 102 mcg/mg Cr CERNER MILLENNIUM Comment: Reference Range* Random collection (mcg/mg creatinine) Normal ?<30 Microalbuminuria ?? 30 - 300 Clinical Albuminuria ?? >300 *[place] Diabetes Association. Diabetic Nephropathy. Diabetes Care 1997;(Suppl 1):S24-S27 Exercise within 24 hour, infection, fever, CHF, marked hyperglycemia, and marked hypertension may elevate urinary albumin excretion over baseline values. Urine specimen (specimen) 01/30/2013 10:07 AM EDT 01/30/2013 12:31 PM EDT Narrative Resulting Agency Comment Spec In Lab Pita Narayanan MD URINE ORDERABLES Performing Organization Address City/[facility] Co de Phone Number ANA GILMAN documented in this encounter Visit Diagnoses Diagnosis Healthcare maintenance- Primary Routine general medical examination at a health care facility Diabetes mellitus type II Type II or unspecified type diabetes mellitus without mention of complication, not stated as uncontrolled Hypertension Unspecified essential hypertension Depression Depressive disorder, not elsewhere classified Gastroesophageal reflux disease Esophageal reflux documented in this encounter Care Teams Transition Nurse Relationship Specialty Start Date End Date Pita Narayanan MD [facility] [address] [place] [address] PCP - General 12/01/12 04/21/15 documented as of this encounter
--- OUTSIDE RECORDS SUMMARY | 2023-10-28 21:39 | XMS_ITS | Encounter Summary ---
Author Organization [facility] [place] [address] Care Team Providers Care Consumer Safety Inspector Name Role Phone Pita Narayanan MD Primary Care Provider [phone] Reason for Visit * Reason Comments Medication Refill Encounter Details Date Type Department Care Team ([facility] st Contact Info) Description 12/15/2013 Refill Internal Medicine at [facility] [address] [place] [id number] Pita Narayanan MD [facility] [place] [address] Diabetes mellitus type 2, uncomplicated (Primary Dx); Hypertension; Healthcare maintenance; Gastroesophageal reflux disease Social History Tobacco Use Types Packs/Day Years [...] Telephone Encounter - Pita Narayanan MD - 12/16/2013 9:39 AM EDT PCP note I did all these meds in mid January last yr with enough RF for a year, so she should not be out. Not sure what the issue is NOS for a f/u visit earlier in the year Needs to sched annual visit. Will do 90 days Needs fasting labs and urine microalbumin before visit; I will order documented in this encounter Plan of Treatment Not on file documented as of this encounter Visit Diagnoses Diagnosis Diabetes mellitus type 2, uncomplicated- Primary Type II or unspecified type diabetes mellitus without mention of complication, not stated as uncontrolled Hypertension Unspecified essential hypertension Healthcare maintenance Routine general medical examination at a [facility] care facility Gastroesophageal reflux disease Esophageal reflux documented in this encounter Care Teams Consumer Safety Inspector Relationship Specialty Start Date End Date Pita Narayanan MD [facility] [place] [address] PCP - General 12/01/12 04/21/15 documented as of this encounter
--- OUTSIDE RECORDS SUMMARY | 2023-10-28 21:39 | XMS_ITS | Encounter Summary ---
Author Organization [facility] [place] [address] Care Team Providers Care Produce Team Lead Name Role Phone Enoch Medina MD Primary Care Provider [phone] Reason for Visit * Reason Comments Medication Refill Encounter Details Date Type Department Care Team ([facility] st Contact Info) Description 12/22/2016 Refill Internal Medicine at [facility] [address] [place] [address] Pita Narayanan MD [facility] [place] [address] Essential hypertension Social History Tobacco Use Types [...] hypertension documented in this encounter Care Teams Produce Team Lead Relationship Specialty Start Date End Date Enoch Medina MD [facility] [place] [address] PCP - General Family Medicine 08/22/20 06/03/21 documented as of this encounter
--- OUTSIDE RECORDS SUMMARY | 2023-10-28 21:39 | XMS_ITS | Encounter Summary ---
Author Organization [facility] [place] [address] Care Team Providers Care Billet Assembler Name Role Phone Galina Hook MD Primary Care Provider [phone] Reason for Visit * Reason Comments Care Encounter Details Date Type Department Care Team (Latest Contact Info) Description 02/01/2012 4:30 PM EDT Visit Obstetrics [place] [address] Amina Mock MD [facility] OBSTETRICS [place] [address] Lisette Elise MD [facility] OBST[facility] & [place] [address] Diabetes mellitus; Hypertension; CADY (obstructive sleep apnea); GERD (gastroesophageal reflux disease); Supervision of high-risk ; Previous section Discharge Disposition: Home Social History Tobacco Use [...] Sign Reading Time Taken Comments Blood Pressure 128/80 02/01/2012 4:35 PM EDT Pulse - - Temperature - - Respiratory Rate - - Oxygen Saturation - - Inhaled Oxygen Concentration - - Weight 115 kg (253 lb 9.6 oz) 02/01/2012 4:35 PM EDT Height - - Body Mass Index 42.2 05/14/2011 9:46 AM EST documented in this encounter Progress Notes * Lisette Elise MD - 02/01/2012 5:20 PM EDT Subjective: The patient presents for a examination at 6 weeks after repeat . Her was complicated by diabetes, obesity and hypertension. Her delivery was complicatedby extensive adhesions. Since delivery she reports feeling depressed. She denies suicidal thoughts,or thoughts of harming others. She has a long history of depression, and has been on antidepressants in the past. She states she has been to counselors in the past, and counseling does not work for her. She has no symptoms of urine or fecal incontinence. She is bottle feeding. Her menses have not resumed. She has not resumed intercourse. She plans to use OCP for contraception. We reviewed the significant adhesive disease encountered at the time of her repeat and the implications for any future . At this time the patient is considering one further . She states that she was advised at the time of delivery that she should strongly consider not having any further pregnancies. Patient Active Problem List Diagnoses Date Noted ??? Carrier of group B Streptococcus [V02.51A] 12/10/2011 ??? Rh negative status during [656.10U] 05/29/2011 ??? Rubella non-immune status [V49.89CX] 05/29/2011 ??? BMI 43 [649.10D] 05/29/2011 ??? Hx of preeclampsia, prior , currently [V23.49AY] 05/29/2011 ??? GERD (gastroesophageal reflux disease) [530.81S] 05/14/2011 ??? Carpal tunnel syndrome [354.0] 05/14/2011 ??? Supervision of high-risk [V23.9K] 05/14/2011 ??? Previous section [V45.89AGL] 05/14/2011 ??? Hypertension [401.9AJ] ??? Diabetes mellitus [250.00A] ??? CADY (obstructive sleep apnea) [327.23H] 12/18/2010 OB History Grav Para Term Abortions TAB SAB Ect Mult Living 4 2 1 1 2 1 1 2 Objective: Filed Vitals: 02/01/12 1635 BP: 128/80 Examination General: Well appearing woman in no distress Abdomen: Nontender. No mass or HSM. Incision: Well healed. No erythema, exudate or induration. Extremities: No edema Assessment: Normal recovery from and delivery. Plan: Resume routine health maintenance care. Pap smear due 05/2012 Contraception: OCP Will start Zoloft 25mg qd; she will follow-up with PCP for continued treatment of depression. The patient was counseled regarding routine breast self exam, the age related recommendations re: mammogram screening, and the need for periodic pap smears and gynecologic evalation. The importance of good nutrition, maintaining weight control, and regular exercise were stressed. Grover Elise MD, MPH Cc: GALINA HOOK MD documented in this encounter Miscellaneous Notes * Miscellaneous - Bradley, Tax Expert - 02/04/2012 1:23 PM EDT documented in this encounter Plan of Treatment Not on file documented as of this encounter Visit Diagnoses Diagnosis Diabetes mellitus Type II or unspecified type diabetes mellitus without mention of complication, not stated as uncontrolled Hypertension Unspecified essential hypertension CADY (obstructive sleep apnea) Obstructive sleep apnea (adult) (pediatric) GERD (gastroesophageal reflux disease) Esophageal reflux Supervision of high-risk Unspecified high-risk Previous section Other postprocedural status documented in this encounter Care Teams Billet Assembler Relationship Specialty Start Date End Date Galina Hook MD PCP - General 10/01/10 11/30/12 documented as of this encounter
--- OUTSIDE RECORDS SUMMARY | 2023-10-28 21:39 | XMS_ITS | Encounter Summary ---
Author Organization [facility] [place] [address] Care Team Providers Care Tube Roller Name Role Phone Carlos Alberto Ag MD Primary Care Provider Reason for Visit * Reason Comments Follow-up Encounter Details Date Type Department Care Team ([facility] st Contact Info) Description 08/19/2017 2:00 PM EDT Office [place] [id number] Malgorzata Pappas, [facility] [place] [address] Type 2 diabetes mellitus without complication, without long-term current use of insulin; Essential hypertension; Gastroesophageal reflux disease, esophagitis presence not specified; Pain in right hip; Epidermoid cyst of skin Social History Tobacco Use Types Packs/Day Years [...] Sign Reading Time Taken Comments Blood Pressure 129/75 08/19/2017 2:26 PM EDT Pulse 102 08/19/2017 2:26 PM EDT Temperature 36.6 ??C (97.9 ??F) 08/19/2017 2:26 PM ED T Respiratory Rate 16 08/19/2017 2:26 PM EDT Oxygen Saturation 100% 08/19/2017 2:26 PM EDT Inhaled Oxygen Concentration - - Weight 104.9 kg (231 lb 3.2 oz) 08/19/2017 2:26 PM EDT Height 165 cm (5' 4.96) 08/19/2017 2:26 PM EDT Body Mass Index 38.52 08/19/2017 2:26 PM EDT documented in this encounter Patient Instructions * Patient Instructions* Malgorzata Pappas, PULL WORKER - 08/19/2017 2:37 PM EDT Images from the original note were not included. Epidermoid Cyst: Care Instructions Your Care Instructions An epidermoid (say tn-exj-MZQ-cornellyd) cyst is a lump just under the skin. These cysts can form whena hair follicle becomes blocked. They are common in acne and may occur on the face, neck, back, andgenitals. However, they can form anywhere on the body. These cysts are not cancer and do not lead to cancer. They tend not to hurt, but they can sometimes become swollen and painful. They also may break open (rupture) and cause scarring. These cysts sometimes do not cause problems and may not need treatment. If you have a cyst that is swollen and hurts, your doctor may inject it with a medicine to help it heal. But it is more likely that a painful cyst will need to be removed. Your doctor will give you a shot of numbing medicine and cut into the cyst to drain it or remove it. This makes the symptoms go away. Follow-up care is a lewis part of your treatment and safety. Be sure to make and go to all appointments, and call your doctor if you are having problems. It's also a good idea to know your test resultsand keep a list of the medicines you take. How can you care for yourself at home? ?? Do not squeeze the cyst or poke it with a needle to open it. This can cause swelling, redness, and infection. ?? Always have a doctor look at any new lumps you get to make sure that they are not serious. When should you call for help? Watch closely for changes in your health, and be sure to contact your doctor if: ? ?? You have a fever, redness, or swelling after you get a shot of medicine in the cyst. ? ?? You see or feel a new lump on your skin. Where can you learn more? Visit our health information library at [email or web address]. You can also view health information on 5by, your personal patient account. Log in or sign uptoday. Enter S615 in the search box to learn more about Epidermoid Cyst: Care Instructions. Current as of: January 30, 2016 Content Version: 11.4 ?? [id number] Za[employer]. Care instructions adapted under license by [facility]. If you have questions about a medical condition or this instruction, always ask your healthcare professional. [employer] disclaims any warranty or liability for your use of this information. Epidermoid Cyst: Care Instructions Your Care Instructions An epidermoid (say Daniella) cyst is a lump just under the skin. These cysts can form whena hair follicle becomes blocked. They are common in acne and may occur on the face, neck, back, andgenitals. However, they can form anywhere on the body. These cysts are not cancer and do not lead to cancer. They tend not to hurt, but they can sometimes become swollen and painful. They also may break open (rupture) and cause scarring. These cysts sometimes do not cause problems and may not need treatment. If you have a cyst that is swollen and hurts, your doctor may inject it with a medicine to help it heal. But it is more likely that a painful cyst will need to be removed. Your doctor will give you a shot of numbing medicine and cut into the cyst to drain it or remove it. This makes the symptoms go away. Follow-up care is a lewis part of your treatment and safety. Be sure to make and go to all appointments, and call your doctor if you are having problems. It's also a good idea to know your test resultsand keep a list of the medicines you take. How can you care for yourself at home? ?? Do not squeeze the cyst or poke it with a needle to open it. This can cause swelling, redness, and infection. ?? Always have a doctor look at any new lumps you get to make sure that they are not serious. When should you call for help? Watch closely for changes in your health, and be sure to contact your doctor if: ? ?? You have a fever, redness, or swelling after you get a shot of medicine in the cyst. ? ?? You see or feel a new lump on your skin. Where can you learn more? Visit our health information library at [email or web address]. You can also view health information on 5by, your personal patient account. Log in or sign uptoday. Enter S615 in the search box to learn more about Epidermoid Cyst: Care Instructions. Current as of: January 30, 2016 Content Version: 11.4 ?? [id number] Zaarly. Care instructions adapted under license by [facility]. If you have questions about a medical condition or this instruction, always ask your healthcare professional. Zaarly disclaims any warranty or liability for your use of this information. documented in this encounter Progress Notes * Malgorzata Pappas APRN - 08/19/2017 2:00 PM EDT Subjective: Patient ID: Sarah Moncada is a 37 y.o. female. HPI Sarah is here with follow up of DM and right hip pain. DM - 3 months ago started a new healthy diet at Home for the whole family with preparing at home meals, no soda or coffee and now starting a gym. She felt like she needed to make a life style choice and thought it best for her children as well. Her 11 year old daughter is helping to make things from scratch. 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 Small lesion on mid back for over a week, her Mom tried to squeeze it with no pus. Review of Systems Constitutional: Negative for activity change, appetite change, chills, fatigue and fever. Eyes: Negative for visual disturbance. Musculoskeletal: Positive for arthralgias. Objective: Physical Exam Constitutional: She appears well-developed and well-nourished. Skin: Mid back under bra clasp is 3 mm macule without induration Vitals reviewed. Assessment and Plan: . Sarah was seen today for follow-up of DM, Hip pain and small papule on back. See encounter summaryfor patient instructions. Diagnoses and all orders for this visit: Type 2 diabetes mellitus without complication, without long-term current use of insulin - Basic Metabolic Panel (non-fasting); Future - Hemoglobin A1c; Future Essential hypertension - lisinopril (PRINIVIL;ZESTRIL) 10 mg Tablet; Take 1 tablet by mouth daily. For mail order Gastroesophageal reflux disease, esophagitis presence not specified - omeprazole (PRILOSEC) 20 mg Capsule, Delayed Release(E.C.); Take 1 capsule by mouth daily. For mail order Pain in right hip - XR Pelvis w AP & Lat Hip Bilat; Future Epidermoid cyst of skin documented in this encounter Miscellaneous Notes * Addendum Note - Amador Patino - 08/19/2017 3:23 PM EDTAddended by: AMADOR PATINO on: 08/19/2017 03:23 PM Modules accepted: Orders documented in this encounter Plan of Treatment Not on file documented as of this encounter Procedures Procedure Name Priority Date/Time Associated Diagnosis Comments HEMOGLOBIN A1C Routine 08/19/2017 3:27 PM EDT Type 2 diabetes mellitus without complication, without long-term current use of insulin BASIC METABOLIC PANEL (NON-FASTING) Routine 08/19/2017 3:27 PM EDT Type 2 diabetes mellitus without complication, without long-term current use of insulin documented in this encounter Results * (ABNORMAL) Hemoglobin A1c (08/19/2017 3:27 PM EDT) Hemoglobin A1C 6.9(H) 4.3 - 5.6 % [facility] Comment: Reference Range: 4.3 [...] 36: Suppl. 1, S67-74 Est Avg Gluc 151 mg/dL [facility] Comment: eAG equivalents for HbA1c [...] into estimated average glucose values. ??Diabetes Care 2008:31(8):5864-6123. Blood specimen (specimen) 08/19/2017 3:27 PM EDT 08/19/2017 3:34 PM EDT Narrative Resulting Agency Comment Spec In Lab Malgorzata Pappas APRN CHEMISTRY ORDERABLES [facility] [place] [address] * (ABNORMAL) Basic Metabolic Panel (non-fasting) (08/19/2017 3:27 PM EDT) Glucose Lvl 234(H) 65 - 199 mg/dL [facility] Comment:Diabetes: >=200 mg/d L plus symptoms BUN 14 8 - 18 mg/dL [facility] Creatinine 0.70 0.70 - 1.20 mg/dL [facility] Sodium 138 135 - 145 mmol/L [facility] Potassium 3.9 3.5 - 5.0 mmol/L [facility] Comment: Please note: ??Patients with WBC >100,000 may have falsely elevated Potassium levels. ??For accurate Potassium quantification in these patients send serum separator tube (gold top) for subsequent determinations. ??Contact the Clinical Chemistry Laboratory if there are any questions. Chloride 98 98 - 107 mmol/L [facility] CO2 26 22 - 31 mmol/L [facility] Anion Gap 14 5 - 15 mmol/L [facility] Calcium 9.0 8.5 - 10.5 mg/dL [facility] Estimated GFR >60 >=60 [facility] Comment: The reported eGFR should be multiplied by 1.2 for patients. The MDRD is not an appropriate measure of renal function for patients with body mass extremes or in patients with acute kidney failure. http://[employer]/DHnkdep http://Bioregency/DHnkf Blood specimen (specimen) 08/19/2017 3:27 PM EDT 08/19/2017 3:34 PM EDT Narrative Resulting Agency Comment Spec In Lab Malgorzata Pappas APRN CHEMISTRY ORDERABLES [facility] [place] [address] * XR Pelvis w AP & Lat [...] changes are noted involving the hips. Malgorzata Pappas APRN IMG DX ORDERABLES documented in this encounter Visit Diagnoses Diagnosis Type 2 diabetes mellitus without complication, without long-term current use of insulin Essential hypertension Unspecified essential hypertension Gastroesophageal reflux disease, esophagitis presence not specified Pain in right hip Pain in joint, pelvic region and thigh Epidermoid cyst of skin Sebaceous cyst Pain in right hip Pain in joint, pelvic region and thigh documented in this encounter Care Teams Tube Roller Relationship Specialty Start Date End Date Carlos Alberto Ag MD [facility] [place] [id number] PCP - General General Internal Medicine 04/26/17 10/31/19 documented as of this encounter
--- OUTSIDE RECORDS SUMMARY | 2023-10-28 21:39 | XMS_ITS | Encounter Summary ---
Author Organization [facility] [place] [address] Care Team Providers Care Intramural Director Name Role Phone Carlos Alberto Ag MD Primary Care Provider Encounter Details Date Type Department Care Team (Late st Contact Info) Description 06/03/2017 Telephone [place] [phone] Carlos Alberto Ag MD [facility] [place] [address] Social History Tobacco Use Types Packs/Day Years [...] encounter Miscellaneous Notes * Telephone Encounter - Carlos Alberto Ag MD - 06/03/2017 3:56 PM EST Called patient to discuss results of labs she had performed this morning. Her HbA1c remains elevated at 7.2%. We will increase her metformin dose to 2000 mg and recheck her HbA1c again at our next appointment. She also was able to reschedule her yearly ophthalmology appointment which was actually earlier today. She reports that her eyes were great, and ophthalmology didn't have any issues today. documented in this encounter Plan of Treatment Not on file documented as of this encounter Visit Diagnoses Not on filedocumented in this encounter Care Teams Intramural Director Relationship Specialty Start Date End Date Carlos Alberto Ag MD [facility] [place] [address] PCP - General General Internal Medicine 04/26/17 10/31/19 documented as of this encounter
--- OUTSIDE RECORDS SUMMARY | 2023-10-28 21:39 | XMS_ITS | Encounter Summary ---
Author Organization [facility] [place] [address] Care Team Providers Care Manager Application Name Role Phone Pita Narayanan MD Primary Care Provider [phone] Reason for Visit * Reason Onset Date Comments Other 02/04/2017 med reconcilliat ion Encounter Details Date Type Department Care Team (Late st Contact Info) Description 02/04/2017 Telephone Internal Medicine at [facility] [address] [place] [phone] Yoly Palacios RN Other (med reconcilliation) Social History Tobacco Use Types Packs/Day Years [...] Telephone Encounter - Pita Narayanan MD - 02/04/2017 6:00 PM EDT PCP note Appreciate f/u from team nurse Updated med reconciliation * Telephone Encounter - Yoly Palacios RN - 02/04/2017 1:43 PM EDT Called patient and identified by name and . Pt reports she has been off the bupropion since April when started the effexor. documented in this encounter Plan of Treatment Not on file documented as of this encounter Visit Diagnoses Not on filedocumented in this encounter Care Teams Manager Application Relationship Specialty Start Date End Date Pita Narayanan MD [facility] [address] [facility] [place] [address] PCP - General General Internal Medicine 01/28/1604/22 documented as of this encounter
--- OUTSIDE RECORDS SUMMARY | 2023-10-28 21:39 | XMS_ITS | Encounter Summary ---
Author Organization [facility] Address [facility] [place] [address] Care Team Providers Care Russet Repairer Name Role Phone Pita Narayanan MD Primary Care Provider [phone] Encounter Details Date Type Department Care Team (Late st Contact Info) Description 08/14/2016 Telephone Internal Medicine at [facility] [address] [place] [address] Pita Narayanan MD [facility] [place] [address] Social History Tobacco Use Types Packs/Day Years [...] Telephone Encounter - Pita Narayanan MD - 08/14/2016 10:21 AM EDT PCP Note Pt NOS for visit today Chart reviewed orig f/u was for 07/28/16, in window of getting another depo shot without needing UPT Is using for managing menses. Is due for an A1c to monitor her DM Needs NOS call. Will forward to Marilyn Mock Pt told me when I saw her in Apr that Mon or Tues work better for appts given her work sched at night. Unclear why was not rescheduled to a Mon or Tues from earlier this month. documented in this encounter Plan of Treatment Not on file documented as of this encounter Visit Diagnoses Not on filedocumented in this encounter Care Teams Russet Repairer Relationship Specialty Start Date End Date Pita Narayanan MD [facility] [place] [address] PCP - General General Internal Medicine 01/28/1604/22 documented as of this encounter
--- OUTSIDE RECORDS SUMMARY | 2023-10-28 21:39 | XMS_ITS | Encounter Summary ---
Author Organization [facility] [place] [address] Care Team Providers Care Shipping Clerk Crating Name Role Phone Pita Narayanan MD Primary Care Provider [phone] Encounter Details Date Type Department Care Team (Late st Contact Info) Description 04/29/2016 Orders Only Internal Medicine at [facility] [address] [place] [phone] Faye Jackson RN Irregular menses Social History Tobacco Use Types Packs/Day Years [...] as of this encounter Visit Diagnoses Diagnosis Irregular menses Irregular menstrual cycle documented in this encounter Care Teams Shipping Clerk Crating Relationship Specialty Start Date End Date Pita Narayanan MD [facility] [place] [address] PCP - General General Internal Medicine 01/28/1604/22 documented as of this encounter
--- OUTSIDE RECORDS SUMMARY | 2023-10-28 21:39 | XMS_ITS | Encounter Summary ---
Author Organization [facility] [place] [address] Care Team Providers Care Sales Representative [employer] Name Role Phone Enoch Medina MD Primary Care Provider [phone] Reason for Visit * Reason Comments Medication Refill Encounter Details Date Type Department Care Team ([facility] st Contact Info) Description 10/16/2016 Refill Internal Medicine at [facility] [address] [place] [address] Pita Narayanan MD [facility] [place] [address] Essential hypertension Social History Tobacco Use Types [...] hypertension documented in this encounter Care Teams Sales Representative [employer] Relationship Specialty Start Date End Date Enoch Medina MD [facility] [place] [address] PCP - General Family Medicine 08/22/20 06/03/21 documented as of this encounter
--- OUTSIDE RECORDS SUMMARY | 2023-10-28 21:39 | XMS_ITS | Encounter Summary ---
Author Organization [facility] [place] [address] Care Team Providers Care Last Greaser Name Role Phone Pita Narayanan MD Primary Care Provider [phone] Reason for Visit * Reason Onset Date Comments Prior [facility] Details Date Type Department Care Team (Late st Contact Info) Description 08/21/2016 Refill Family Medicine at [facility] [address] [place] [address] Michael Vazquez MA Type 2 diabetes mellitus without complication, unspecified spreader operator insulin use status (Primary Dx) Social History Tobacco Use Types [...] Telephone Encounter - Pita Narayanan MD - 08/24/2016 3:32 PM EDT PCP note This is a problem with our EDH choices and not what I ordered i wanted the long acting generic metformin and put that in the sig. EDH by default puts a brand name in parentheses with generic orders. * Telephone Encounter - Ashley Troncoso CCM - 08/24/2016 3:14 PM EDT Insurances do not cover the fortamet formulation of metformin unless the patient has tried and failed two tablets of 500 mg Glucophage XR formulation to equal the same dose. Script has been prepped per insurance coverage. * Telephone Encounter - Michael Vazquez MA - 08/21/2016 2:31 PM EDT Medication Prior Authorization for Primary [place] [address] Patient: Sarah Moncada Patient : 1980 Subscriber Insurance: [employer] Sent via: [employer] Thomas: [id number] Physician: Pita Narayanan MD Return Medication Requested: Fortamet Strength: 1000 MG Frequency: 1 PO QD Disp.: 90 Refills: 3 Currently taking: No Diagnosis for this medication: DM Type 2 ICD-10 code: E11.65 Prior medications trialed in this patient: Medication: Metformin Approx Dates: 04/28 - 09/02 Outcome/Adverse Reactions: Treatment failure documented in this encounter Plan of Treatment Not on file documented as of this encounter Visit Diagnoses Diagnosis Type 2 diabetes mellitus without complication, unspecified spreader operator insulin use status- Primary documented in this encounter Care Teams Last Greaser Relationship Specialty Start Date End Date Pita Narayanan MD [facility] [address] [address] PCP - General General Internal Medicine 01/28/1604/22 documented as of this encounter
--- OUTSIDE RECORDS SUMMARY | 2023-10-28 21:40 | XMS_ITS | Encounter Summary ---
Author Organization [facility] Address [facility] [place] [address] Care Team Providers Care Mounter Clarinets Name Role Phone Dav Carlos MD Primary Care Provider [phone] Encounter Details Date Type Department Care Team (Latest Contact Info) Description 10/06/2011 11:50 AM EDT - 10/06/2011 11:59 PM EDT Hospital Encounter Non-Invasive [place] [phone] CARDIO, ECHO SIXTY MIN APPT None Lisette Elise MD [facility] OBSTETRICS & [place] [address] Diabetes in Discharge Disposition: Home Social History Tobacco Use Types Packs/Day Years Used Date Smoking Tobacco: Never Smokeless Tobacco: Never Alcohol Use Standard Drinks/Week Comments No 0 (1 standard drink = 0.6 oz pur e alcohol) rarely Comments Yes Sex and Gender Information Value Date Recorded Sex Assigned at Not on file Gender Identity Female 12/01/2018 2:55 PM EDT Sexual Orientation Not on file documented as of this encounter Medications at Time of Discharge Medication Sig Dispensed Refills Start Date End Date docusate sodium (COLACE) 100 mg capsule Take 1 capsule by mouth 2 times daily for 10 days. 10 capsule 0 12/21/2011 12/31/2011 ibuprofen (ADVIL;MOTRIN) 600 mg tablet Take 1 tablet by mouth every 6 hours as needed for Pain. 20 tablet 0 12/21/2011 02/01/2012 NIFEdipine (ADALAT CC) 30 mg 24 hr tablet Take 1 tablet by mouth 2 times daily. 60 tablet 0 12/21/2011 02/01/2012 OXYcodone-acetaminop hen (PERCOCET) 5-325 mg per tablet Take 1-2 tablets by mouth every 3 hours as needed for Pain (moderate-severe pain). 20 tablet 0 12/21/2011 02/01/2012 metFORMIN (GLUCOPHAGE) 500 mg tablet Take 1 tablet by mouth 2 times daily (with meals). 60 tablet 1 12/21/2011 01/30/2013 ranitidine (ZANTAC) 150 mg capsuleIndications:O besity in ,Supervisio n of high-risk ,GERD (gastroesophageal reflux disease) Take 1 capsule by mouth 2 times daily. 60 capsule prn 09/29/2011 02/01/2012 methyldopa (ALDOMET) 250 mg tablet Take 1 tablet by mouth 2 times daily. 60 tablet 5 07/02/2011 01/09/2013 VITS W-CA,FE,FA,<1MG, ( VITAMIN ORAL) Take by mouth daily. 012 insulin NPH human recomb (HUMULIN;NOVOLIN) 100 unit/mL injectionIndications :Diabetes mellitus complicating , antepartum Inject subcutaneously. 15 units before breakfast, 15 units at bedtime 10 mL 12 05/14/2011 11/20/2011 insulin lispro (HUMALOG) 100 unit/mL injectionIndications :Diabetes mellitus complicating , antepartum Inject subcutaneously 2 times daily (before meals). 10 units before breakfast and before dinner 10 mL 12 05/14/2011 02/01/2012 Insulin Syringe-Needle U-100 (INSULIN SYRINGE) 1/2 mL 30 x 5/16 SyrgIndications:Diab etes mellitus complicating , antepartum by Misc.(Non-Drug; Combo Route) route. Taking insulin before breakfast, dinner and bedtime 1 Box prn 05/14/2011 02/01/2012 documented as of this encounter Plan of Treatment Not on file documented as of this encounter Procedures Procedure Name Priority Date/Time Associated Diagnosis Comments ECHOCARDIOGRAM LIMITED Routine 10/06/2011 12:53 PM EDT Diabetes in documented in this encounter Results * Echocardiogram Limited (10/06/2011 12:53 PM EDT) Anatomical Region Laterality Modality Other 10/06/2011 Narrative 10/06/2011 1:02 PM EDT Procedure: ? Pediatric Echocardiogram Patient: ? HARISH Xiao ?(Age): 1980(31) Med Rec#: ?[id number] ? Sex: ?F ? Site Loc: ?[facility] [place] ? Ht / Wt: ??(cm)/(kg) ? Pt. Loc: ? Echo Lab ? BSA: ? Study Date: ?10/06/2011 ? Pt. Type: Outpatient Study Quality: ?Tape: ? Referring: [facility] Coordinator: Yosef Frankel Diagnosis:CPT Code(s): ??Doppler LTD (65345), ?? Echo F/U (61499), Color Doppler (53242), Indication(s): ??Maternal diabetes Rhythm: SUMMARY: 1. A follow up echocardiogram was performed at 32 weeks gestation due to maternal diabetes. ??Good quality images were obtained, focused on views of the ventricular septum and aortic arch. ?? 2. No cardiac structural abnormalities are identified. ??The aortic arch is well seen and appears to be intact. ??There is no evidence, within the limits of echocardiography, of a ventricular septal defect. ??This is a normal follow-up echocardiogram. ?? 3. The limitations of echocardiography include the inability to diagnose patent ductus arteriosus, some atrial and ventricular septal defects, minor valve abnormalities and coarctation. ??No specific or cardiac follow-up is required on the basis of this study. FINDINGS: Atria And Veins ?The pulmonary veins were not evaluated. Atrioventricular Valves ?No tricuspid valve structural abnormality is identified. ?No mitral valve structural abnormality is identified. Ventricles ?Right ventricular systolic function is normal. ?Left ventricular systolic function is normal. Ventricular Septum ?The interventricular septum appears to be intact. Semilunar Valves ?No pulmonary valve structural abnormalities seen. ?No aortic valve structural abnormalities seen. Great Vessels ?The great arteries appear normally related. ?The aortic arch appears to be intact. ?The aortic isthmus is normal sized. Effusion ?There is no evidence of a pericardial effusion. ?No evidence of hydrops. All Z scores are estimated This report has been electronically signed by: Percy ??Thomas Morales MD ? 10/06/2011 13:02:08 Images reviewed and interpretation verified [facility] Cardiac Ultrasound Laboratory Procedure Note Percy Morales MD - 10/06/2011 Procedure: Pediatric Echocardiogram Patient: HARISH Xiao (Age): 1980(31) Med Rec#: [id number] Sex: F Site Loc: [facility] [place] Ht / Wt: (cm)/(kg) Pt. Loc: Echo Lab BSA: Study Date: 10/06/2011 Pt. Type: Outpatient Study Quality: Tape: Referring: [facility] Coordinator: Yosef Frankel Diagnosis:CPT Code(s): Doppler LTD (50284), Echo F/U (43255), Color Doppler (52994), Indication(s): Maternal diabetes Rhythm: SUMMARY: 1. A follow up echocardiogram was performed at 32 weeks gestation due to maternal diabetes. Good quality images were obtained, focused on views of the ventricular septum and aortic arch. 2. No cardiac structural abnormalities are identified. The aortic arch is well seen and appears to be intact. There is no evidence, within the limits of echocardiography, of a ventricular septal defect. This is a normal follow-up echocardiogram. 3. The limitations of echocardiography include the inability to diagnose patent ductus arteriosus, some atrial and ventricular septal defects, minor valve abnormalities and coarctation. No specific or cardiac follow-up is required on the basis of this study. FINDINGS: Atria And Veins The pulmonary veins were not evaluated. Atrioventricular Valves No tricuspid valve structural abnormality is identified. No mitral valve structural abnormality is identified. Ventricles Right ventricular systolic function is normal. Left ventricular systolic function is normal. Ventricular Septum The interventricular septum appears to be intact. Semilunar Valves No pulmonary valve structural abnormalities seen. No aortic valve structural abnormalities seen. Great Vessels The great arteries appear normally related. The aortic arch appears to be intact. The aortic isthmus is normal sized. Effusion There is no evidence of a pericardial effusion. No evidence of hydrops. All Z scores are estimated This report has been electronically signed by: Percy Morales MD 10/06/2011 13:02:08 Images reviewed and interpretation verified [facility] Cardiac Ultrasound Laboratory Marilyn Reilly MD ECHO ORDERABLES documented in this encounter Visit Diagnoses Diagnosis Diabetes in Diabetes mellitus of mother, complicating , childbirth, or the puerperium, unspecified as to episode of care documented in this encounter Care Teams Mounter Clarinets Relationship Specialty Start Date End Date Dav Carlos MD PCP - General 10/01/10 11/30/12 documented as of this encounter
--- OUTSIDE RECORDS SUMMARY | 2023-10-28 21:40 | XMS_ITS | Encounter Summary ---
Author Organization [facility] [place] [address] Care Team Providers Care Meter Technician Name Role Phone Dav Carlos MD Primary Care Provider [phone] Encounter Details Date Type Department Care Team (Latest Contact Info) Description 11/24/2011 10:00 AM EDT - 11/24/2011 11:59 PM EDT Hospital Encounter Ultrasound at [facility] [place] [phone] Unspecified high-risk Social History Tobacco Use Types Packs/Day Years [...] (with meals). 60 tablet 1 12/21/2011 01/30/2013 insulin NPH human recomb (HUMULIN;NOVOLIN) 100 unit/mL injection Inject subcutaneously 2 times daily. Patient taking 18 units in AM and 34 units at bedtime. 02/01/2012 omeprazole (PRILOSEC) 20 mg capsule Take 20 mg by mouth daily. 01/30/2013 ranitidine (ZANTAC) 150 mg capsuleIndications:O besity in ,Supervisio n of high-risk ,GERD (gastroesophageal reflux disease) Take 1 capsule by mouth 2 times daily. 60 capsule prn 09/29/2011 02/01/2012 methyldopa (ALDOMET) 250 mg tablet Take 1 tablet by mouth 2 times daily. 60 tablet 5 07/02/2011 01/09/2013 VITS W-CA,FE,FA,<1MG, ( VITAMIN ORAL) Take by mouth daily. 012 insulin lispro (HUMALOG) 100 unit/mL injectionIndications :Diabetes [...] Procedure Name Priority Date/Time Associated Diagnosis Comments US OB FOLLOW UP Routine 11/24/2011 10:29 AM EDT Unspecified high-risk documented in this encounter Results * US OB follow up evaluation (11/24/2011 10:29 AM EDT) Anatomical Region Laterality Modality Pelvis, Abdomen Ultrasound 11/24/2011 10:2 9 AM EDT Narrative 11/24/2011 10:39 AM EDT ?OBSTETRICS REPORT ? (Signed Final 11/24/2011 10:38 am) Patient Info ID: ? [id number] ? : ??[birth year] (31 yrs) Name: ? MIGDALIA MOREIRA ? Visit Date: 11/24/2011 10:27 am Performed By Performed By: ?Melissa Villareal RDMS Attending: ? Gerardo PENALOZA, Crispin Bishop Referred By: ? MARILYN HOUSE MD Service(s) Provided UOBFOL - Efw - Growth - Reevaluation - [place] ?[id number] - [id number] Indications Efw, Growth Evaluation Num Of Fetuses: ?1 Heart Rate: ??143 ?bpm Cardiac Activity: ??Observed, normal rhythm Presentation: ?Cephalic Placenta: ?Anterior P. Cord ?Within Normal Limits Insertion: Amniotic Fluid CAMILO FV: ?Polyhydramnios CAMILO Sum: ? 22.4 ?cm ? Larg Pckt: ? 7 ??cm RUQ: ?? 6.1 ? cm ?LUQ: ?? 4.9 ?cm RLQ: ?? 7 ? cm ?LLQ: ?? 4.4 ?cm -------- Biometry -------- BPD: ?88 ??mm ?G. Age: ?? 35w 4d ? 84 ??% HC: ? 325 ?? mm ?G. Age: ?? 36w 6d ? 80 ??% AC: ? 324 ?? mm ?G. Age: ?? 36w 2d ? 96 ??% FL: ? 73 ??mm ?G. Age: ?? 37w 3d ? > 97 ??% HUM: ?59 ??mm ?G. Age: ?? 34w 1d ? 60 ??% CI: ? 73.95 ??% ? 70 - 86 FL/HC: ? 22.5 ??% ? 19.4 - 21.8 HC/AC: ? 1.00 ?0.96 - 1.11 FL/BPD: ?83.0 ??% ? 71 - 87 FL/AC: ? 22.5 ??% ? 20 - 24 Est. FW: ?2968 ?? gm ? 6 lb 9 oz ?? > 95 ??% Gestational Age LMP: ? 35w 3d ?Date: ??03/21/11 ? ODETTE: ?? 12/26/11 U/S Today: ? 36w 4d ?ODETTE: ?? 12/18/11 Best: ?34w 1d ?? Det. By: ??U/S C R L ?ODETTE: ?? 01/04/12 ? (05/29/11) ------- Anatomy ------- Cranium: ?Not visualized due to late gestational age Cavum: ?Not visualized due to late gestational age Ventricles: ? Not visualized due to late gestational age Choroid Plexus: ? Not visualized due to late gestational age Cerebellum: ? Not visualized due to late gestational age Posterior Fossa: ?Not visualized due to late gestational age Nuchal Fold: ?Not evaluated at this gestational age. Face: ? Limite due to maternal body habitus Heart: ?Not visualized due to late gestational age RVOT: ? Not visualized due to late gestational age LVOT: ? Not visualized due to late gestational age Diaphragm: ?Visualized Stomach: ?Visualized Abdomen: ?Within Normal Limits Abdominal Wall: ? Cord Insertion - WNL Cord Vessels: ? 3-vessels- WNL Kidneys: ?Visualized Bladder: ?Visualized Spine: ?Limited views Cervix Uterus Adnexa Left Ovary: ?Not visualized Right Ovary: ?? Not visualized Impression 3rd Trimester Summary Single intrauterine with a gestational age of 34w 1d based on early ultrasound. Composite age based on the current ultrasound alone is 36w 4d. Estimated weight corresponds to the > 95th percentile for 34w 1d. LGA fetus. Amniotic fluid volume is Polyhydramnios, CAMILO = 22.4 cm Anatomical survey is limited due to the late gestational age, however no structural abnormalities are noted. I ??viewed the images and agree with the above interpretation. Thank you for allowing us to participate in the care of MIGDALIA MOREIRA. Please do not hesitate to call if you have any questions. ?Marilyn House MD Electronically Signed Final Report ?? 11/24/2011 10:38 am Procedure Note Marilyn House MD - 11/24/2011 OBSTETRICS REPORT (Signed Final 11/24/2011 10:38 am) Patient Info ID: [id number] : [birth year] (31 yrs) Name: MIGDALIA MOREIRA Visit Date: 11/24/2011 10:27 am Performed By Performed By: Melissa Villareal RDMS Attending: Crispin Carrillo MD Referred By: MARILYN HOUSE MD Service(s) Provided UOBFOL - Efw - Growth - Reevaluation - [place] [id number] - [id number] Indications Efw, Growth Evaluation Num Of Fetuses: 1 Heart Rate: 143 bpm Cardiac Activity: Observed, normal rhythm Presentation: Cephalic Placenta: Anterior P. Cord Within Normal Limits Insertion: Amniotic Fluid CAMILO FV: Polyhydramnios CAMILO Sum: 22.4 cm Larg Pckt: 7 cm RUQ: 6.1 cm LUQ: 4.9 cm RLQ: 7 cm LLQ: 4.4 cm -------- Biometry -------- BPD: 88 mm G. Age: 35w 4d 84 % HC: 325 mm G. Age: 36w 6d 80 % AC: 324 mm G. Age: 36w 2d 96 % FL: 73 mm G. Age: 37w 3d > 97 % HUM: 59 mm G. Age: 34w 1d 60 % CI: 73.95 % 70 - 86 FL/HC: 22.5 % 19.4 - 21.8 HC/AC: 1.00 0.96 - 1.11 FL/BPD: 83.0 % 71 - 87 FL/AC: 22.5 % 20 - 24 Est. FW: 2968 gm 6 lb 9 oz > 95 % Gestational Age LMP: 35w 3d Date: 03/21/11 ODETTE: 12/26/11 U/S Today: 36w 4d ODETTE: 12/18/11 Best: 34w 1d Det. By: U/S Donnell Xiao ODETTE: 01/04/12 (05/29/11) ------- Anatomy ------- Cranium: Not visualized due to late gestational age Cavum: Not visualized due to late gestational age Ventricles: Not visualized due to late gestational age Choroid Plexus: Not visualized due to late gestational age Cerebellum: Not visualized due to late gestational age Posterior Fossa: Not visualized due to late gestational age Nuchal Fold: Not evaluated at this gestational age. Face: Limite due to maternal body habitus Heart: Not visualized due to late gestational age RVOT: Not visualized due to late gestational age LVOT: Not visualized due to late gestational age Diaphragm: Visualized Stomach: Visualized Abdomen: Within Normal Limits Abdominal Wall: Cord Insertion - WNL Cord Vessels: 3-vessels- WNL Kidneys: Visualized Bladder: Visualized Spine: Limited views Cervix Uterus Adnexa Left Ovary: Not visualized Right Ovary: Not visualized Impression 3rd Trimester Summary Single intrauterine with a gestational age of 34w 1d based on early ultrasound. Composite age based on the current ultrasound alone is 36w 4d. Estimated weight corresponds to the > 95th percentile for 34w 1d. LGA fetus. Amniotic fluid volume is Polyhydramnios, CAMILO = 22.4 cm Anatomical survey is limited due to the late gestational age, however no structural abnormalities are noted. I viewed the images and agree with the above interpretation. Thank you for allowing us to participate in the care of MIGDALIA MOREIRA. Please do not hesitate to call if you have any questions. Marilyn House MD Electronically Signed Final Report 11/24/2011 10:38 am Marilyn House MD IMG US OB ORDERABL ES documented in this encounter Visit Diagnoses Diagnosis Unspecified high-risk documented in this encounter Care Teams Meter Technician Relationship Specialty Start Date End Date Dav Carlos MD PCP - General 10/01/10 11/30/12 documented as of this encounter
--- OUTSIDE RECORDS SUMMARY | 2023-10-28 21:40 | XMS_ITS | Encounter Summary ---
Author Organization [facility] Address [facility] [place] [address] Care Team Providers Care Seo Consultant Name Role Phone Dav Carlos MD Primary Care Provider Encounter Details Date Type Department Care Team (Latest Contact Info) Description 08/27/2011 10:07 AM EDT - 08/27/2011 11:59 PM EDT Hospital Encounter Non-[place] [phone] CARDIO, ECHO SIXTY MIN APPT None Lisette Elise MD [facility] OBSTETRICS & [place] [address] Unspecified high-risk Discharge Disposition: Home Social History Tobacco Use [...] mouth 2 times daily. 60 capsule prn 08/27/2011 09/29/2011 methyldopa (ALDOMET) 250 mg tablet Take 1 [...] and bedtime 1 Box prn 05/14/2011 02/01/2012 omeprazole (PRILOSEC) 40 mg capsule 20 MG = 1 Capsule(s) PO Once daily 03/17/2010 09/29/2011 documented as of this encounter Plan of Treatment Not on file documented as of this encounter Procedures Procedure Name Priority Date/Time Associated Diagnosis Comments ECHOCARDIOGRAM Routine 08/27/2011 11:10 AM EDT Unspecified high-risk documented in this encounter Results * Echocardiogram (08/27/2011 11:10 AM EDT) Anatomical Region Laterality Modality Other 08/28/2011 Narrative 08/28/2011 7:54 AM EDT Procedure: ? Pediatric Echocardiogram Patient: ? HARISH Xiao ?(Age): 1980(31) Med Rec#: ?[id number] ? Sex: ?F ? Site Loc: [place] ? Ht / Wt: ??(cm)/(kg) ? Pt. Loc: ? Echo Lab ? BSA: ? Study Date: ?08/27/2011 ? Pt. Type: Outpatient Study Quality: ?Tape: ? Referring: Grover Elise Microbiology Lab Manager: Yosef Frankel Diagnosis:CPT Code(s): ?? Echo Full (34843), ?? Doppler Full (63950), ??Color Doppler (29018), Indication(s): ??Maternal diabetes Rhythm: SUMMARY: 1. A echocardiogram was performed at 21 weeks gestation due to maternal diabetes. ??Poor quality images were obtained, significantly limited by maternal habitus and position. 2. Color Doppler raises the possibility of a subaortic ventricular septal defect, but imaging ??of the area is very limited. ??No right ventricular outflow tract obstruction is seen. ??The pulmonary annulus and main pulmonary artery are normal sized. The aortic arch appears intact, but is not well seen. ?? 3. No other cardiac structural abnormalities are identified. ??Chamber sizes, ventricular function, arterial and venous connections are all normal. ??The Doppler exam is otherwise normal. ??No arrhythmias are noted during the exam. ??There is no evidence of hydrops. ?? 4. The limitations of echocardiography include the inability to diagnose patent ductus arteriosus, some atrial and ventricular septal defects, minor valve abnormalities and coarctation. ??Follow-up echo is suggested in 4-6 weeks to re-examine the ventricular septum and aortic arch. FINDINGS: Atria And Veins ?At least one pulmonary vein from each side enters the left atrium. ?No pulmonary venous anomalies are detected. Atrioventricular Valves ?The tricuspid valve appears normal. ?The annulus measures approximately 7.2 mm. (Z-Score: 1.22). ?No tricuspid valve structural abnormality is identified. ?The mitral valve structure appears normal. ?The annulus measures approximately 6.3 mm. (Z-Score: 0.26). ?No mitral valve structural abnormality is identified. Ventricles ?The right ventricle is normal sized. ?Right ventricular systolic function is normal. ?The left ventricle is normal sized. ?Left ventricular systolic function is normal. Ventricular Septum ?The interventricular septum was not well visualized. Semilunar Valves ?No pulmonary valve structural abnormalities seen. ?The pulmonary annulus size appears normal sized. ? and measures 4.2 mm. (Z-Score: 0.92). ?No aortic valve structural abnormalities seen. ?The aortic annulus size appears normal. ? and measures approximately 3.3 mm. (Z-Score: 0.37). Great Vessels ?The great arteries appear normally related. ?The main pulmonary artery appears normal sized. ?The right pulmonary artery appears normal sized. ?The left pulmonary artery appears normal sized. ?The aortic arch appears to be intact. ?The ascending aorta is normal sized. ? measuring 3.9 mm. (Z-Score: 0.66). ?The aortic isthmus is normal sized. ?measuring 3.1 mm. (Z-Score: 1.25). ?The descending aorta is normal sized. Effusion ?There is no evidence of a pericardial effusion. ?No evidence of hydrops. All Z scores are estimated This report has been electronically signed by: Percy ??Thomas Morales MD ? 08/28/2011 07:53:22 Images reviewed and interpretation verified [facility] Cardiac Ultrasound Laboratory Procedure Note Percy Morales MD - 08/28/2011 Procedure: Pediatric Echocardiogram Patient: HARISH Xiao (Age): 1980(31) Med Rec#: [id number] Sex: F Site Loc: [facility] Ht / Wt: (cm)/(kg) Pt. Loc: Echo Lab BSA: Study Date: 08/27/2011 Pt. Type: Outpatient Study Quality: Tape: Referring: Grover Elise Microbiology Lab Manager: Yosef Frankel Diagnosis:CPT Code(s): Echo Full (55106), Doppler Full (22963), Color Doppler (55891), Indication(s): Maternal diabetes Rhythm: SUMMARY: 1. A echocardiogram was performed at 21 weeks gestation due to maternal diabetes. Poor quality images were obtained, significantly limited by maternal habitus and position. 2. Color Doppler raises the possibility of a subaortic ventricular septal defect, but imaging of the area is very limited. No right ventricular outflow tract obstruction is seen. The pulmonary annulus and main pulmonary artery are normal sized. The aortic arch appears intact, but is not well seen. 3. No other cardiac structural abnormalities are identified. Chamber sizes, ventricular function, arterial and venous connections are all normal. The Doppler exam is otherwise normal. No arrhythmias are noted during the exam. There is no evidence of hydrops. 4. The limitations of echocardiography include the inability to diagnose patent ductus arteriosus, some atrial and ventricular septal defects, minor valve abnormalities and coarctation. Follow-up echo is suggested in 4-6 weeks to re-examine the ventricular septum and aortic arch. FINDINGS: Atria And Veins At least one pulmonary vein from each side enters the left atrium. No pulmonary venous anomalies are detected. Atrioventricular Valves The tricuspid valve appears normal. The annulus measures approximately 7.2 mm. (Z-Score: 1.22). No tricuspid valve structural abnormality is identified. The mitral valve structure appears normal. The annulus measures approximately 6.3 mm. (Z-Score: 0.26). No mitral valve structural abnormality is identified. Ventricles The right ventricle is normal sized. Right ventricular systolic function is normal. The left ventricle is normal sized. Left ventricular systolic function is normal. Ventricular Septum The interventricular septum was not well visualized. Semilunar Valves No pulmonary valve structural abnormalities seen. The pulmonary annulus size appears normal sized. and measures 4.2 mm. (Z-Score: 0.92). No aortic valve structural abnormalities seen. The aortic annulus size appears normal. and measures approximately 3.3 mm. (Z-Score: 0.37). Great Vessels The great arteries appear normally related. The main pulmonary artery appears normal sized. The right pulmonary artery appears normal sized. The left pulmonary artery appears normal sized. The aortic arch appears to be intact. The ascending aorta is normal sized. measuring 3.9 mm. (Z-Score: 0.66). The aortic isthmus is normal sized. measuring 3.1 mm. (Z-Score: 1.25). The descending aorta is normal sized. Effusion There is no evidence of a pericardial effusion. No evidence of hydrops. All Z scores are estimated This report has been electronically signed by: Percy Morales MD 08/28/2011 07:53:22 Images reviewed and interpretation verified [facility] Cardiac Ultrasound Laboratory Marilyn Reilly MD ECHO ORDERABLES documented in this encounter Visit Diagnoses Diagnosis Unspecified high-risk documented in this encounter Care Teams Seo Consultant Relationship Specialty Start Date End Date Dav Carlos MD PCP - General 10/01/10 11/30/12 documented as of this encounter
--- OUTSIDE RECORDS SUMMARY | 2023-10-28 21:40 | XMS_ITS | Encounter Summary ---
Author Organization Formerly [facility] [place] [address] Care Team Providers Care Senior Product Development Scientist Name Role Phone Dav Carlos MD Primary Care Provider [phone] Encounter Details Date Type Department Care Team (Late st Contact Info) Description 12/18/2011 1:00 PM EDT - 12/18/2011 2:59 [place] [id number] Pam Prasad MD [facility] [place] [address] @ DELIVERY (WRVU 16.13) Social History Tobacco Use Types Packs/Day Years [...] Sign Reading Time Taken Comments Blood Pressure 150/93 12/21/2011 8:00 AM EDT Pulse 94 12/21/2011 8:00 AM EDT Temperature 37 ??C (98.6 ??F) 12/21/2011 8:00 AM EDT Respiratory Rate 18 12/21/2011 8:00 AM EDT Oxygen Saturation 97% 12/20/2011 8:35 AM EDT Inhaled Oxygen Concentration - - Weight - - Height - - Body Mass Index - - documented in this encounter Discharge Instructions * Discharge Instructions* Mayelin Oh RN - 12/21/2011 8:10 AM EDT Nursing Inpatient Progress C - Section Follow-up Follow-ups: Your follow up appts will be mailed to you. Immunizations Received: [x ] MMR Maternal Discharge Instructions Rest: Although it may seem impossible to get enough rest, simple planning will help. Try to get at least one four hour block of uninterrupted sleep in 24 hours; then plan to rest, and/or sleep when your baby does. Limiting visitors also helps. Fathers and other family members can help by doing housework, caring for other children and/or helping limit visitors. Activity: After delivery, it is safe to climb stairs at home. Do not lift anything heavierthan your baby for two weeks. Do not drive for two weeks or while taking pain medicine that contains a narcotic as your reaction time may be decreased. Nutrition: Your diet following the of your baby is as important as it was before the baby wasborn. Drink a minimum of 6-8 glasses a day. Do not attempt to lose weight during the first six weeks. Continue taking your vitamins until they are gone. Lochia: (Flow) Your flow should be no heavier than a normal period. It will be bright red for 2-3 days and then pinkish and finally colorless. If your flow becomes bright red again, decrease your activity. Do not use tampons until your care provider advises you it is OK. Incision: Wash the incision with soap and water and pat dry. It is normal to have clear or pinkish fluid seep from the incision. Gauze pads or sanitary napkins may help to keep the incision dry if itis located in a fold under your tummy. If the incision has more redness, yellow drainage, or becomes more painful, contact the obstetrics clinic. Breast Care for Formula feeding mothers: Wear a well fitting bra to support your breasts. Ice packsto your breasts and Tylenol or Ibuprofen may be used to relieve discomfort from engorgement. Avoid stimulating your breasts: Do not let warm water from the shower fall on them; avoid holding your baby near your breasts until your milk begins to decrease and engorgement is relieved. Call your doctor or tv production assistant for: Fever more than 100.5 Heavy bleeding that saturates a pad an hour Clots larger than a plum Increased abdominal pain, nausea, shaking chills Increased redness or soreness over your incision Breast with hot, hard, tender areas on the breast plus flu-like symptom depression occurs in a large percentage of women. We encourage you to contact your provider or a member of the nursing staff if you are feeling so overwhelmed that you are unable to care for yourself or your baby. Keep your follow up appointment. You may call the [facility] at any time for guidance or for answers to questions that come up prior to you follow up appointment. Your [facility] Provider can be reached during office hours at [facility] Follow-up Clinic AFTER OFFICE HOURS for the trucking manager or tv production assistant entertainment production professional Provider electronic signature confirms that discharge instructions were reviewed with the patient. A copy was printed and given to the patient. * Patient Instructions* Radha Mathews MD - 12/21/2011 10:36 AM EDT Follow up appointments and recommendations: If not made at the time of discharge, please call your primary OB provider for a follow up appointment. ([phone]) Patient Discharge Instructions: For problems or concerns related to this hospitalization call: [phone] weekdays, or [phone] weekends or nights. Call your doctor if you develop: --A fever over 101 degrees F --Severe pain -- Nausea / vomiting, diarrhea, intolerance of food or drink --Heavy vaginal bleeding, saturating 1+ heavy pad per hour --Urinary frequency, urgency, or feeling of incomplete emptying of the bladder --If your wound is red, hot, swollen, tender or draining yellow/green fluid Activity level: You should be able to resume your usual activities of daily living (eating, drinking, washing, walking.). No heavy lifting or strenuous activity for 2-3 weeks. Diet: Regular as tolerated, drink plenty of fluids. Shower/Bath: Showering is fine. Short baths are OK but you should avoid having any abdominal incision submerged for more than 10-15 minutes for the next 2 weeks. Wound Care: You have pj in place at the site of your section. Please keep the incision clean and dry. Showering is ok. Please come to the clinic in 2-3 days to have your pj removed. Pain medications include Ibuprofen and percocet Please use Ibuprofen mg every 6 hours with food around the clock for the next several days and thenafter that use it only as needed. Drink plenty of fluids while you are home with this medication Please use the percocet every 3 hours as needed for pain that breaks through the Ibuprofen documented in this encounter Medications at Time of Discharge [...] 05/14/2011 02/01/2012 documented as of this encounter Progress Notes * Katelin Latham RN - 12/21/2011 12:49 PM EDT Care Management Assessment Patient Information has been reviewed in multi-disciplinary rounds with OB and pediatric providers,in medical record, and through patient interview. Introduced self and CRC role to patient and services accepted. Living Situation: Migdalia is a 31 y.o. delivered by repeat C/Section early term at 37 4/7 wks Her was complicated by: HTN, Type 2 Diabetes, obesity, hx of PIH. With Whom: FOB/partner Best and 6 yr old daughter Barbara. Where: [facility], [place] Approx time in community: Years Social Resources: Intact couple. Both employed. 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 Have [employer] insurance through he employer and [place] Medicaid secondary. Have local family support. Extended family in area for support: Yes Cognitive Resources: Intact Childbirth Education: Yes/No Educational level: High School + Functional Status: Ambulatory, Independent, Without limitations. C/S recovery with limitations on lifting/driving x 2 weeks. Complications requiring follow-up: Financial Resources: Adequate. No concerns expressed Health Insurance Coverage: Counts Include [facility] [employer] plus [place] Medicaid. Baby will be placed on Dr Kamara Training Analyst Chosen: Dr Dav Carlos; [facility] Baby's Name: Baby Girl Radha Anticipated Continuing Care Needs: Physical: Recovery from . Initiation of . Emotional: Adjustment to period Psychological: Known hx of anxiety/depression. At risk for PPD. Referred to manager social for assessment and support while inpatient. Educational: Parenting Continuing Care Plan Development: At home resources/Discharge supports suggested. Printed materials and suggested community resourcesprovided to patient: Visiting Nurse visits: Offered services of VNA post discharge. Patient declined [facility] ([facility]) 4th Trimester New mom support/[facility] [place] Healthy Babies: Referral to [facility] [place] [facility]: [facility] [place] DME ordered : None Breast Pump: N/A Other: Have car seat, transportation, and adequate family support. No direct referrals made at this time. . CRC: Roxanne LEE/ Keny Strong. Beeper [id number] * Amina Mock MD - 12/21/2011 6:57 AM EDT Delivery Note Patient Name: Migdalia Garcia Primary author of this note: RADHA MATHEWS MD Date: 6:57 AM Subjective: Complains of , pain well controlled on ibuprofen and percocet, tolerating regular diet,urinating and ambulating without difficulty. Lochia is minimal. Passing flatus, no BM. Denies headache, N/V, CP, SOB. Objective: Vitals: Filed Vitals: 12/20/11 2111 BP: 135/83 Pulse: 94 Temp: 36.8 ??C (98.2 ??F) Resp: 18 Heart: regular rate and rhythm, normal S1, S2, no murmurs Lungs: clear to auscultation bilaterally, no crackles Abdomen: soft, not distended, +bowel sounds Uterus: Appropriately tender, firm, appropriate size Incision/Dressing: Clean, dry intact, no dressing in place Extremities: no calf tenderness, 1+ edema Significant labs: CBC Lab Results Component Value Date WBC 11.1* 12/19/2011 RBC 4.16 12/19/2011 HGB 13.0 12/19/2011 HCT 37.6 12/19/2011 MCV 90.4 12/19/2011 MCH 31.3 12/19/2011 MCHC 34.6 12/19/2011 PLATELET 162 12/19/2011 RDWCV 13.3 12/19/2011 Assessment: PPD # 3 Migdalia Garcia is a 31 y.o. woman with repeat delivery at 37+4 wks complicated by type II GDM, GBS+, HTN. Blood pressures controlled. Significant labs Rh negative Rubella non-immune GBS positive Infant nutrition Plan: Continue routine care: encourage ambulation, advanced diet until regular, d/c IV when taking adequate PO, d/c mesa when ambulating, change dressing PPD #2, routine bowel orders. Pain medications percocet, ibuprofen Contraception micronor Anticipate discharge today This patient was seen and discussed on rounds. Santana Mathews MD Attending note I saw patient on rounds and agree with Dr. Mathews's note above. The patient reports feeling well. Her bleeding is diminishing, and she is voiding without difficulty. She has adequate analgesia. She is able to ambulate. afebrile, normotensive Abdomen: soft, appropriately tender, fundus below umbilicus Wound: clean, dry, intact Ext: nontender, mod edema Impression: POD 3 after repeat at term doing well. Plan: Discharge today Pj out in several days Amina Mock MD * Alexandre Elizabeth MD - 12/20/2011 7:47 AM EDT Delivery Note Delivery Date: 12/18/2011 Delivery Type: ID: Migdalia Garcia is a 31 yo female now POD#2 s/p scheduled repeat c/s at 37w4d for DM type II. She was also found to have elevated BP and proteinuria concerning for mild pre-eclampsia. Subjective: Migdalia reports good pain control today with ibuprofen and percocet. She is tolerating aregular diet without nausea or vomiting. Ambulating and urinating without difficulty. +flatus, no BM yet. Formula feeding . Desires condoms for contraception. Lochia is moderate and stable. Denies chest pain, SOB, fevers/chills, diarrhea, and dysuria. Physical Exam: Blood pressure 148/94, pulse 85, temperature 36.7 ??C (98.1 ??F), temperature source Oral, resp. rate 20, last menstrual period 03/21/2011, SpO2 94.00%, unknown if currently . Physical Exam General: obese, sitting in bed with infant, NAD. Uterine Fundus: firm, appropriately tender to palpation, below umbilicus. Incision: dressing removed. Incision clean, dry and intact without drainage. Lochia: Appropriate Extremities: trace edema LE Assessment : Migdalia Garcia is a 31 yo female now POD#2 s/p scheduled repeat c/s at 37w4d for DM type II. She was also found to have elevated BP and proteinuria concerning for mild pre-eclampsia. Received magnesium for 24 hours . Rh- ( is Rh-)/ rubella non-immune Patient is doing well without problems. Lochia appropriate Infant nutrition: formula feeding Contraception: condoms Significant history: Type II DM/ chronic HTN/ GERD Plan: Continue routine care: Encourage ambulation. BS 88-120 yesterday. Continue monitoring blood glucose at meal time and 1 hour post prandial. Home metformin restarted. Continue PO pain meds. Continue regular diet Routine bowel orders Hypertension- continue home dose of methyldopa. Add nifedipine XL 30mg BID for additional control of BPs. GERD- nexium Anticipated discharge -PPD # 3 Additional Plans: 6 week post visit Will receive MMR prior to discharge. This patient was seen and discussed on rounds. JOHN WALDRON MD PGY1 12/20/2011 Attending post - section note ALEXANDRE ELIZABETH MD I reviewed the above note and discussed the patient at rounds with the team. I agree with the documented findings and plan of care, except as noted below. My evaluation: S: No complaints, pain well controled. O: Temp: [36.7 ??C (98.1 ??F)-36.9 ??C (98.4 ??F)] Heart Rate: [81-94] Resp: [18-20] BP: (133-164)/(67-94) SpO2: [94 %-97 %] Uterus: firm aprpopriately tender Abdomen: not distended. Dressing: clean dry intact Impression & Plan: stable POD 2 from repeat c/s. We discussed waiting one year prior to attempting to conceive. She is committed to either condoms, or trying an OCP that does not make her nauseous. We discussed weight loss and exercise, she lost 20 pounds piror to this adn only [id number] with the . I encouraged her to try a progrm like curves and to eliminate junk food fromher home. Remainder of plan as above. ALEXANDRE ELIZABETH MD 12/20/2011 * Alexandre Elizabeth MD - 12/19/2011 7:18 AM EDT Delivery Note Delivery Date: 12/18/2011 Delivery Type: ID: Migdalia Garcia is a 31 yo female now POD#1 s/p for scheduled c/s at 37w4d for TypeII DM. She was also found to have elevated BP and proteinuria concerning for mild pre-eclampsia. Subjective: Migdalia had nausea and vomiting post operatively overnight, relieved by zofran. She complained of itching overnight and received benadryl. Her pain is well controlled with toradol. Tolerating regular diet without nausea or vomiting. Mesa remains in place, will be removed today. Ambulated last night with some dizziness on standing. Has not been out of bed today. +flatus, no bm. Formulafeeding. Desires condoms for contraception. Lochia is moderate Review of Systems Denies cp/ sob/ fevers/ chills/ diarrhea/ dysuria. Lochia: moderate Physical Exam: Blood pressure 144/91, pulse 93, temperature 36.9 ??C (98.4 ??F), temperature source Oral, resp. rate 18, last menstrual period 03/21/2011, SpO2 95.00%, unknown if currently . Physical Exam General: obese, sitting in bed, NAD. Uterine Fundus: firm, moderately tender to palpation, below umbilicus. Incision: dressing in place, no significant drainage Lochia: appropriate Extremities: 1+ edema LE Significant Labs : Recent Labs Basename 12/19/11 0612/18/11 1030 ??? WBC 11.1* 8.8 ??? HGB 13.0 13.9 ??? HCT 37.6 39.6 ??? PLATELET 162 161 Recent Labs Basename 12/19/11 0610 ??? NA -- ??? K -- ??? CL -- ??? CO2 -- ??? BUN -- ??? CREATININE 0.45* Recent Labs Basename 12/19/11 0610 12/18/11 1030 ??? AST 28 21 ??? ALT -- -- ??? ALKPHOS -- -- ??? BILITOT -- -- ??? BILIDIR -- -- Assessment : Migdalia Garcia is a 31 yo female now POD#1 s/p for scheduled c/s at 37w4d for Type II DM. She was also found to have elevated BP and proteinuria concerning for mild pre-eclampsia. Receiving magnesium for 24 hours . Some nausea and vomiting resolved with zofran. Rh- ( is Rh-)/ rubella non-immune Patient is doing well without problems. Lochia appropriate Infant nutrition: formula feeding Contraception: condoms Significant history: Type II DM/ chronic htn/ Gerd Plan: Continue routine care: encourage ambulation, d/c iv when taking adequate fluid po, d/c mesa today, will be due to void. Continue monitoring blood glucose at meal time and 1 hour post prandial. Transition to po pain meds. Continue regular diet routine bowel orders Home metformin held, on sliding scale insulin with blood glucose range 61-130. Hypertension- continue home dose of methyldopa. Gerd- nexium Anticipated discharge -PPD # 3 Additional Plans: 6 week post visit Will received MMR prior to discharge. This patient was seen and discussed on rounds. LAWRENCE GUO MD PGY1 12/19/2011 Pager #[phone] Attending post - section note ALEXANDRE ELIZABETH MD I reviewed the above note and discussed the patient at rounds with the team. I agree with the documented findings and plan of care, except as noted below. My evaluation: S: No complaints, pain well controled. O: Temp: [36.5 ??C (97.7 ??F)-37 ??C (98.6 ??F)] Heart Rate: [56-98] Resp: [18-20] BP: (125-170)/(58-100) SpO2: [93 %-97 %] Uterus: firm aprpopriately tender Abdomen: not distended. Dressing: clean dry intact Impression & Plan: stable POD 1 from c/s, FSBS ok. She is not , will restart metformin today as she is progressing towards a full diet well. BP stable on Aldomet and she wants to get again in 2 years, ideally she would be on an FREDDIE inhibitor, con't mag for a full 24 hours.Remainder of plan as above. ALEXANDRE ELIZABETH MD 12/19/2011 * Amina Jarrell RN - 12/18/2011 4:48 PM EDT 1627-CSE in, pt assisted to left lateral tilt. EFM placed, YNP=971. MDs aware. To proceed with scheduled repeat . documented in this encounter H&P Notes * Pam Prasad MD - 12/18/2011 10:34 AM EDT Obstetrical Term Admission Note Migdalia Garcia is a 31 y.o. year old female with an ODETTE of 01/04/2012, by Ultrasound, who is at 37w4d weeks gestation being admitted for repeat section for mild pre-eclampsia andType II DM. HPI: Migdalia is a 31 yo at 37 4/7wks by US who presented for US for FLM today, however was found to have elevated blood pressure and 2+ proteinuria with a headache. She was a planned c/s for Type II DM today and based on her new elevation of blood pressure. She had one elevated BP during herprenatal visits back in September, however has been normotensive since. She reports some spots in her left eye this week, but denies RUQ pain. Denies ctx, vb, LOF. She ate breakfast this am at 8am becauseshe thought her c/s was not scheduled until 1pm. Review of Systems Obstetric Review of Systems Total Weight Gain this 6.033 kg (13 lb 4.8 oz) Movement: normal Contractions: none Leaking: None Bleeding; none now Preeclampsia signs and symptoms: headache and visual disturbances No resolved problems to display. Active Hospital Problems Diagnoses ??? Supervision of high-risk ??? Rh negative status during ??? Rubella non-immune status ??? BMI 43 ??? Hx of preeclampsia, prior , currently ??? GERD (gastroesophageal reflux disease) ??? Previous section ??? Hypertension ??? Diabetes mellitus ??? CADY (obstructive sleep apnea) Resolved Hospital Problems Diagnoses Date Resolved Active Non-Hospital Problems Diagnoses ??? Carrier of group B Streptococcus ??? Carpal tunnel syndrome Past Medical History Diagnosis Date ??? GERD (gastroesophageal reflux disease) ??? Headache ??? Obesity ??? Hypertension 2008 switched to aldomet preconceptually ??? Diabetes mellitus 2008 also GDM, on metformin at beginning of pregnnayc ??? 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 Created by interface -BP / URGENT Procedure Date: 02/26/2006 ??? Created by interface Cholecystectomy Procedure Date: Feb 2005 ??? Created by interface INCISION & DRAINAGE (ENT) / PERITONSILLAR Procedure Date: 07/12/1998 ??? Cholecystectomy ??? Tonsillectomy ??? section 2006 uncomplicated OB History Grav Para Term Abortions TAB SAB Ect Mult Living 4 1 1 2 1 1 1 # Outc Date GA Lbr Jluis/2nd Wgt Sex Del Anes PTL Lv 1 TAB 1996 2 1998 Comments: early no D&C 3 PRE 2006 36w0d 2.977kg(6lb9oz) F LTCS Yes 4 CUR Prior to Admission Medications Prescriptions prior to admission Medication Sig Dispense Refill ??? insulin NPH human recomb (HUMULIN;NOVOLIN) 100 unit/mL injection Inject subcutaneously 2 times daily. Patient taking 18 units in AM and 34 units at bedtime. ??? omeprazole (PRILOSEC) 20 mg capsule Take 20 mg by mouth daily. ??? ranitidine (ZANTAC) 150 mg capsule Take 1 capsule by mouth 2 times daily. 60 capsule prn ??? methyldopa (ALDOMET) 250 mg tablet Take 1 tablet by mouth 2 times daily. 60 tablet 5 ? ? VITS W-CA,FE,FA,<1MG, ( VITAMIN ORAL) Take by mouth daily. ??? insulin lispro (HUMALOG) 100 unit/mL injection Inject subcutaneously 2 times daily (before meals). 10 units before breakfast and before dinner 10 mL 12 ??? Insulin Syringe-Needle U-100 (INSULIN SYRINGE) 1/2 mL 30 x 5/16 Syrg by [facility].(Non-Drug; Combo Route) route. Taking insulin before breakfast, dinner and bedtime 1 Box prn Allergies No Known Allergies Family History Problem Relation Age of Onset ??? Diabetes Mother ??? Cancer Father ??? Sleep Apnea Sister ??? Sleep Apnea Paternal Aunt Social History Occupational History ??? Not on file. Social History Main Topics ??? Smoking status: Never Smoker ??? Smokeless tobacco: Never Used ??? Alcohol Use: No rarely ??? Drug Use: No ??? Sexually Active: Immunization History Immunization History Administered Date(s) Administered ??? Influenza PF, Split 05/14/2011 ??? Influenza Whole 03/21/2008 ??? Pneumococcal Polyvalent 23 04/09/2008 ??? Rho (D) Immune Globulin 10/13/2011 ??? Td 04/19/2002 Physical Exam Last value Range last 24 hrs Temperature Temp: 37 ??C (98.6 ??F) Temp: [37 ??C (98.6 ??F)] Heart Rate Heart Rate: 83 Heart Rate: [83] Blood Pressure BP: 153/94 mmHg BP: (142-153)/(94-100) Respiratory Rate Resp: 18 Resp: [18] SpO2 SpO2: -- Art BP BP (Arterial Line): -- Gen: obese, NAD Resp: CTA CV: s1s2 no m/r/g Abd: gravid, obese Uterine Size: S>D Clinical EFW: 4000gm Pelvic: deferred Presentations: vtx Heart Rate Interpretation: 130 mod variability +accels no decels Lab Review Lab Results Component Value Date ABORH A Neg 10/13/2011 HCT 39.6 12/18/2011 HGB 13.9 12/18/2011 MCV 89.6 12/18/2011 RUBLIGG Negative* 05/29/2011 HIV12 Negative 05/29/2011 GCAMP Negative 05/29/2011 CHLMGENE Negative 05/29/2011 [id number] <0.18* 07/15/2011 AST 14 09/09/2011 Lab Results Component Value Date GBSSCREEN Pos 12/08/2011 Most Recent Growth Ultrasound Date: 12/17 GA at US: 37 4/7wks EFW: 3805gm Growth large for gestational age Amniotic fluid volumeincreased CAMILO 27 Placenta anterior Presentation vertex Assessment & Plan Migdalia Garcia is a 31 y.o. female with an 01/04/2012, by Ultrasound who is at 37w4d weeks gestation being admitted for repeat section for suspected pre-eclampsia in setting of Type II DM. Reviewed risks and benefits of section and informed consent was obtained. ?? Labor State: Not in labor.. ?? Heart Rate Assessment: Category 1 ?? GBS Positive: will receive ancef for c/s ppx Additional Issues ?? Type II DM: Currently taking NPH 18Qam and 34Qpm as well as novolog 10Qam and 10Qpm with good blood sugar control. Fasting this am was 91 and 1 hour PP 76 ?? Morbid obesity ?? Chronic HTN: was on aldomet one year prior to , will restart following delivery ?? Pre-eclampsia: consider starting magnesium if her pressures remain elevated.Will send PIH labs and f/u BPs. ?? RNI: needs MMR ?? A-: will need cord blood ?? Gerd: aliyah LOPEZ MD 12/18/2011 Addendum: 31 yo woman @ 37+4 wks EGA admitted for repeat C/S for probable preeclampsia in setting of Type II DM, background of chronic hypertension. Original plan was for amnio for FLM prior to C/S forType II DM, but when pt presented with elevated BP and proteinuria today, decision was made to forego the amniocentesis and proceed with delivery. I saw and evaluated her at time of admission. Because she had an egg sandwich at approx 8AM and hasreassuring testing today, will wait till NPO for 8 hrs prior to proceeding. Pam Prasad MD documented in this encounter Miscellaneous Notes * Miscellaneous - Provider, Scanning - 12/22/2011 10:32 AM EDT * Miscellaneous - Provider, Scanning - 12/22/2011 10:31 AM EDT * Plan of Care - Mayelin Oh RN - 12/21/2011 8:08 AM EDT Problem: Following Section Delivery (Adult, Obstetric) Intervention: Attachment Promotion (Obstetric) Pt holding during assessment. Plans to be DC'd today. Pt pleased. en route to take her home. Call light within reach. * Plan of Care - Mayelin Oh RN - 12/20/2011 8:45 AM EDT Problem: Following Section Delivery (Adult, Obstetric) Intervention: Attachment Promotion (Obstetric) Pt uncomfortable this morning, fell behind on meds. Pain meds given and infant swaddled to help give pt a break. Pt expecting her family to come and visit today. Call light within reach. * Plan of Care - Oscar Rascon RN - 12/19/2011 2:08 PM EDT Problem: Following Section Delivery (Adult, Obstetric) Intervention: Bowel Function Promotion Ambulation encouraged, stool softener given to patient. * Plan of Care - Oscar Rascon RN - 12/19/2011 2:07 PM EDT Problem: Following Section Delivery (Adult, Obstetric) Intervention: Personal Hygiene Promotion Pt oob to restroom, pericare done with minimal assistance. Hand hygiene encouraged. * Plan of Care - Oscar Rascon RN - 12/19/2011 2:07 PM EDT Problem: Following Section Delivery (Adult, Obstetric) Intervention: Venous Thromboembolism Prevention Pt wearing SCD's while in bed, pt ambulates in room without difficulty and with steady gait. * Discharge Summary - Radha Mathews MD - 12/19/2011 7:24 AM EDT Obstetrics - Discharge Summary Inpatient Obstetrics - Discharge Summary Patient Name: Migdalia Garcia Patient Age: 31 y.o. Birthdate: 1980 Admit date: 12/18/2011 Discharge date and time: 12/21/11 Attending Physician: Pam Prasad MD Discharge Diagnoses: 1. IUP at 37w4d gestation, s/p repeat section 2. Chronic hypertension 3. Morbid obesity. 4. Type II diabetes 5. CADY 6. Mild preeclampsia 7. Hx of depression Patient Active Problem List Diagnoses Code ??? CADY (obstructive sleep apnea) 327.23H ??? Hypertension 401.9AJ ??? Diabetes mellitus 250.00A ??? GERD (gastroesophageal reflux disease) 530.81S ??? Carpal tunnel syndrome 354.0 ??? Supervision of high-risk V23.9K ??? Previous section V45.89AGL ??? Rh negative status during 656.10U ??? Rubella non-immune status V49.89CX ??? BMI 43 649.10D ??? Hx of preeclampsia, prior , currently V23.49AY ??? Carrier of group B Streptococcus V02.51A Care Provider: [facility] - [facility]FM Admission History (per admit note) Migdalia Garcia is a 31 y.o. year old female with an ODETTE of 01/04/2012, by Ultrasound, who is at 37w4d weeks gestation being admitted for repeat section for mild pre-eclampsia andType II DM. HPI: Migdalia is a 31 yo at 37 4/7wks by US who presented for US for FLM today, however was found to have elevated blood pressure and 2+ proteinuria with a headache. She was a planned c/s for Type II DM today and based on her new elevation of blood pressure. She had one elevated BP during herprenatal visits back in September, however has been normotensive since. She reports some spots in her left eye this week, but denies RUQ pain. Denies ctx, vb, LOF. She ate breakfast this am at 8am becauseshe thought her c/s was not scheduled until 1pm. Hospital Course: Migdalia was admitted at 37 4/7wks for scheduled c/s for Type II DM. She was also found to have elevated BP and proteinuria concerning for mild pre-eclampsia. Findings at surgery included dense adhesions to fascia, omentum adherent to fascia in midline. Diastasis. Rectus muscles peritonealized. Omental adhesions to peritoneum and rectus initially obscuring lower uterine segment. Uterus mobile, withno fundal or posterior adhesions. In addition to adhesive disease, increased obesity made this a very difficult delivery with poor visualization. Please see operative note for further details. Surgery resulted a live born female who was handed to Peds who assigned Apgars of 8, 9 with a weight of 271 0g. The patient and infant tolerated the procedure well and were in satisfactory condition at its conclusion. The patient was taken back to her room in stable condition. Her course was uneventful. She remained afebrile and displayed no signs of post-operative complications. She was restarted on her pre- dose of metformin for her Type II diabetes. Her blood glucose ranged from 106- 139 prior to discharge. She also resumed methyldopa and was instructed to continue her nifedipine. Her blood pressure was well controlled with only one high reading of 150/93 the morning of discharge. Her pain was controlled with oral pain medications, she was tolerating a regular diet, ambulating and voiding without difficulty, her fundal exam was as expected andher lochia was within normal limits before discharge on post day number 3 with prescriptionsfor percocet, ibuprofen, nifedipine, and metformin. She was pumping for her infant in the ICN and will be followed up in the clinic in 2 weeks for depression check and 6 week . She will come to the clinic in 2-3 days to have her pj removed. Important Studies and Lab Data: Labs: Recent Labs Basename 12/19/11 0610 12/18/11 1030 ??? WBC 11.1* 8.8 ??? HGB 13.0 13.9 ??? HCT 37.6 39.6 ??? PLATELET 162 161 Recent Labs Basename 12/19/11 0610 ??? NA -- ??? K -- ??? CL -- ??? CO2 -- ??? BUN -- ??? CREATININE 0.45* Recent Labs Basename 12/19/11 0610 12/18/11 1030 ??? AST 28 21 ??? ALT -- -- ??? ALKPHOS -- -- ??? BILITOT -- -- ??? BILIDIR -- -- Studies: none Pending Studies and Lab Data: The patient will need the following 2 tests completed on: 05/27/2011 1. AB COMMENT 2. AB COMMENT Authorizing Provider: Pam Prasad MD Updated Allergies/ADRs: No Known Allergies Discharge Medications: Current Discharge Medication List UNREVIEWED medications Dose Details insulin NPH human recomb (HUMULIN;NOVOLIN) 100 unit/mL injection Qty: Refills: omeprazole (PRILOSEC) 20 mg capsule 20 mg Qty: Refills: ranitidine (ZANTAC) 150 mg capsule 150 mg Qty: 60 capsule Refills: prn methyldopa (ALDOMET) 250 mg tablet 250 mg Qty: 60 tablet Refills: 5 VITS W-CA,FE,FA,<1MG, ( VITAMIN ORAL) Qty: Refills: insulin lispro (HUMALOG) 100 unit/mL injection Qty: 10 mL Refills: 12 Insulin Syringe-Needle U-100 (INSULIN SYRINGE) 1/2 mL 30 x 5/16 Syrg Qty: 1 Box Refills: prn Summary: Dating Summary: 01/04/2012, by Ultrasound Obstetric History: Obstetric History T1 TAB1 SAB1 E0 M0 L2 Name of Baby 1 Not recorded ??? Outcome Date 1996 [place] Not recorded ??? Delivery Type Not recorded ??? at 1 min. Not recorded at 5 min. Not recorded ??? Living Not recorded Name of Baby 2 Not recorded ??? Outcome Date 1998 [place] Not recorded ??? Delivery Type Not recorded ??? at 1 min. Not recorded at 5 min. Not recorded ??? Living Not recorded Name of Baby 3 Barbara ??? Outcome Date 2005 GA 36w 0d ??? Delivery Type , Low Transverse ??? at 1 min. Not recorded at 5 min. Not recorded ??? Living Yes Name of Baby 4 RADHA,BABY GIRL ??? Outcome Date 12/18/11 GA 37w 4d ??? Delivery Type Lower Segment Transverse ??? at 1 min. 8 at 5 min. 9 ??? Living Yes Past Medical and Surgical History: Past Medical History Diagnosis Date ??? GERD (gastroesophageal reflux disease) ??? Headache ??? Obesity ??? Hypertension 2008 switched to aldomet preconceptually ??? Diabetes mellitus 2008 also GDM, on metformin at beginning of pregnnayc ??? 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 Created by interface -BP / URGENT Procedure Date: 02/26/2006 ??? Created by interface Cholecystectomy Procedure Date: Feb 2005 ??? Created by interface INCISION & DRAINAGE (ENT) / PERITONSILLAR Procedure Date: 07/12/1998 ??? Cholecystectomy ??? Tonsillectomy ??? section 2006 uncomplicated Family History: Family History Problem Relation Age of Onset ??? Diabetes Mother ??? Cancer Father ??? Sleep Apnea Sister ??? Sleep Apnea Paternal Aunt Social History and Habits: History Social History ??? Marital Status: Spouse Name: N/A Number of Children: N/A ??? Years of Education: N/A Occupational History ??? Not on file. Social History Main Topics ??? Smoking status: Never Smoker ??? Smokeless tobacco: Never Used ??? Alcohol Use: No rarely ??? Drug Use: No ??? Sexually Active: Other Topics Concern ??? Not on file Social History Narrative ??? No narrative on file Operations/Major Procedures: Operations: Repeat section - Anesethesia type: CSE Discharge Conditions/Prognosis: Stable Discharge to: Home Contraceptive Plans: condoms Instructions Given to Patient at Discharge: Provider Instructions None General Instructions None Referrals: none Cc: none Provider Contact Information: DAV CARLOS MD [phone] Discharge References/Attachments: Discharge References/Attachments None Signed: Santana Mathews MD * Miscellaneous - Provider, Scanning - 12/18/2011 8:37 PM EDT * Op Note - Pam Prasad MD - 12/18/2011 7:12 PM EDT [facility] [place] Patient Name: Migdalia Garcia : [id number] MR#: [id number] Case Date: 12/18/2011 Surgeon: Surgeon(s) and Role: * CHELA LOPEZ MD - Resident-Powerbuilder * ALEXANDRE ELIZABETH MD - *ASSISTING SURGEON * PAM PRASAD MD - Primary Preoperative diagnosis: 1. Mild pre-eclampsia 2. Type II DM 3. Repeat section 4. Morbid obesity Postoperative diagnosis: 1. Mild pre-eclampsia 2. Type II DM 3. Repeat section 4. Morbid obesity Procedure(s): Repeat Low transverse section Anesthesia: combined spinal/epidural Estimated Blood Loss: 1,000 Drains: mesa Disposition: regional anesthesia adiminstered without incident and patient was taken back to L&D in stable condition Condition: doing well without problems Specimen: placenta HPI/Surgical Indications: Migdalia is a 31yo 37 4/7wks who presented for scheduled c/s for Type II DM. She was also found to have elevated BP and proteinuria concerning for mild pre-eclampsia. Risks and benefits of section were reviewed and patient had opportunity to ask questions. Informed consent was obtained. Findings at surgery: 1. Female in cephalic presentation. Clear fluid. Peds was present at delivery and assigned Apgars of 8,9, weight of 2710 gm. nuchal x 1 2. Normal uterus, tubes and ovaries. 3. Dense adhesions to fascia, omentum adherent to fascia and anterior surface of rectus muscles in midline. Significant diastasis with edges and portion of anterior surface of rectus muscles peritonealized. Omental adhesions to peritoneum and rectus initially obscuring lower uterine segment. Uterusmobile, with no fundal or posterior adhesions. In addition to adhesive disease, increased obesity made this a very difficult delivery with limited visibility. Description of Procedure: After informed consent was reviewed, the patient was taken to the Operating Room where anesthesia was induced and found to be adequate. The patient was given ancef 2 g. The patient was placed in the dorsal supine position with a leftward tilt. The patient was then prepped and draped in the usual sterile fashion. Surgical timeout was performed. After epidural anesthesia was confirmed adequate, a Pfannenstiel skin incision was made with a scalpel and carried through to the underlying layer of fascia. The fascia was nicked in the midline and the incision was extended laterally with the curved Briggs scissors and electrocautery; the omentum was noted to immediately protrude through the fascial incision just to right of midline. The superior aspect of the fascial incision was then grasped with Atilio clamps, elevated, and the rectus muscle was dissected off with extensive sharp dissection. During dissection, the peritoneal cavity was entered above where the omentum had previously been noted. Attention was then turned to the inferior aspect of the fascial incision, which in a similar fashion was grasped with Atilio clamps, elevated andthe underlying rectus muscles dissected off. The peritoneal incision was then extended superiorly with some difficulty. The omentum which was adhesed to the anterior surface of the left rectus muscle was clamped x 2 and divided then freetied with 2-0 Vicryl. On the right rectus muscle, the adhesed area of omentum was dissected off sharply with electrocautery. The peritoneal incision was then extended inferiorly with good visualization of the bladder. The bladder blade was then inserted and the vesicouterine peritoneum identified, grasped with pickups and entered sharply with Metzenbaum scissors. This incision was then extended laterallyand the bladder flap created digitally. The bladder blade was replaced and the lower uterine segment incised in a transverse fashion with a scalpel. The hysterotomy was stretched to accommodate the head. Amniotomy showed clear fluid. The bladder blade was then removed and a hand inserted intothe uterus to elevate the head. Fundal pressure was used to deliver the head atraumatically from a vertex presentation and the body and shoulders followed after reducing the nuchal cord and a live born female was delivered. The nose and mouth were suctioned on the field and the cord was clamped and cut. The was handed off to the waiting pediatricians, who assigned Apgars of 8,9 Cord blood was collected. Pitocin was started. The placenta delivered spontaneously and the uteruswas cleared of all clots and debris. The uterine incision was repaired with 0-vicryl in a continuous locking fashion. A second layer of the same suture was used to imbricate the first layer. Excellent hemostasis was obtained. Inspection of the uterine incision revealed one single area of nonhemostasis and a single [id number] was placed for hemostasis. The gutters were cleared of all clots and debris and copiously irrigated. The hysterotomy and the bladder flap were checked again prior to closure of the fascia and found to be hemostatic. The rectusmuscles were reapproximated with 2- O vicryl suture with two interrupted sutures. The fascia was reapproximated with #1 looped PDS in a running fashion. The subcutaneous space was well irrigated. The subcutaneous tissues were loosely reapproximated with 2-O plain gut. The skin was closed with pj. Sterile bandages were placed. The vagina was cleared of all clots. The patient and infant tolerated the procedure well and were in satisfactory condition at its conclusion. Sponge, lap and needle counts were correct times two at case close. The patient was taken back to her room in stable condition. * L&D Delivery Note - Chela Lopez MD - 12/18/2011 6:37 PM EDT Delivery Summary for Migdalia Garcia Labor Events: labor: Rupture date: 12/18/2011 Rupture time: 5:21 PM Rupture type: Artificial Fluid Color: Clear Induction: Augmentation: None Complications: Cervical ripening: Delivery: Episiotomy: None Lacerations: None Repair suture: None Repair # of packets: Blood loss (ml): 800 Information for the patient's : Mejia Garcia Girl [[id number]] Delivery 12/18/2011 5:23 PM by Lower Segment Transverse Sex: female Gestational Age: 37.6 weeks. Delivery Clinician: Pam Navarrete?: Yes APGARS One minute Five minutes Ten minutes Skin color: 1 1 Heart rate: 2 2 Grimace: 2 2 Muscle tone: 2 2 Breathin 2 Totals: 8 9 Presentation/position: Vertex Right Occiput Anterior Resuscitation: Suctioning Cord information: 3 Vessels Disposition of cord blood: Lab Blood gases sent? Yes Complications: Nuchal X 1 Placenta: Delivered: appearance Measurements: Weight: 8 lb 2.9 oz (3710 g) Height: 20 Head circumference: 35 cm Chest circumference: Other providers: Delivery Assist Delivery Nurse Resident Resident Pattern Cutter Amina Elizabeth Additional information: Forceps: Vacuum: Breech: Observed anomalies * L&D Delivery Note - Chela Lopez MD - 12/18/2011 6:37 PM EDT Delivery Summary for Migdalia Garcai Labor Events: labor: Rupture date: 12/18/2011 Rupture time: 5:21 PM Rupture type: Artificial Fluid Color: Clear Induction: Augmentation: None Complications: Cervical ripening: Delivery: Episiotomy: None Lacerations: None Repair suture: None Repair # of packets: Blood loss (ml): 800 Information for the patient's : Mejia Garcia Girl [[id number]] Delivery 12/18/2011 5:23 PM by Lower Segment Transverse Sex: female Gestational Age: 37.6 weeks. Delivery Clinician: Pam Navarrete?: Yes APGARS One minute Five minutes Ten minutes Skin color: 1 1 Heart rate: 2 2 Grimace: 2 2 Muscle tone: 2 2 Breathin 2 Totals: 8 9 Presentation/position: Vertex Right Occiput Anterior Resuscitation: Suctioning Cord information: 3 Vessels Disposition of cord blood: Lab Blood gases sent? Yes Complications: Nuchal X 1 Placenta: Delivered: appearance [place] Measurements: Weight: 8 lb 2.9 oz (3710 g) Height: 20 Head circumference: 35 cm Chest circumference: Other providers: Delivery Assist Delivery Nurse Resident Resident Pattern Cutter Amina Elizabeth Additional information: Forceps: Vacuum: Breech: Observed anomalies * OR Attestation - Alexandre Elizabeth MD - 12/18/2011 6:30 PM EDT Attestation: Case Date: 12/18/2011 I was present and I participated during the closing of the uterus. Dr. Prasad was present for theopening and for the delivery of the and we overlapped during the closing of the uterus. ALEXANDRE ELIZABETH MD 12/18/2011 * Brief Op Note - Alexandre Elizabeth MD - 12/18/2011 6:30 PM EDT Brief Operative Note Patient Name: Migdalia Garcia : [id number] MR#: [id number] Case Date: 12/18/2011 Surgeon: Surgeon(s) and Role: * CHELA LOPEZ MD - Resident-Powerbuilder * ALEXANDRE ELIZABETH MD - *ASSISTING SURGEON * PAM PRASAD MD - Primary Preoperative diagnosis: REPEAT C/S Postoperative diagnosis: Procedure(s): @ DELIVERY Anesthesia: Other Findings: viable , extensive adhesions of omentum to anterior abdominal wall, thin fascia. Complications: none Fluids: 2L Estimated Blood Loss: 1l Drains: NONE Disposition: regional anesthesia adiminstered without incident Condition: doing well without problems (Please see the Surgical Encounter Summary for any Implant and Specimen details pertinent to this patient.) documented in this encounter Plan of Treatment Not on file documented as of this encounter Procedures Procedure Name Priority Date/Time Associated Diagnosis Comments POCT GLUCOSE Routine 12/20/2011 6:55 PM EDT POCT GLUCOSE Routine 12/20/2011 2:00 PM EDT POCT GLUCOSE Routine 12/20/2011 10:42 AM EDT POCT GLUCOSE Routine 12/19/2011 7:34 PM EDT POCT GLUCOSE Routine 12/19/2011 1:47 PM EDT POCT GLUCOSE Routine 12/19/2011 10:01 AM EDT POCT GLUCOSE Routine 12/19/2011 7:56 AM EDT DIFFERENTIAL, AUTOMATED Routine 12/19/19 6:10 AM EDT CREATININE Routine 12/19/2011 6:10 AM EDT CBC (WITH DIFF) Routine 12/19/2011 6:10 AM EDT ASPARTATE AMINOTRANSFERASE Routine 12/19/2011 6:10 AM EDT POCT GLUCOSE Routine 12/18/2011 9:11 PM EDT SPECIMEN TO PATHOLOGY (NON-OR) Routine 12/18/2011 7:07 PM EDT @ DELIVERY (WRVU 16.13) 12/18/2011 3:51 PM EDT POCT GLUCOSE Routine 12/18/2011 2:34 PM EDT POCT GLUCOSE Routine 12/18/2011 1:48 PM EDT SELECTED CELL SCREEN Routine 12/18/2011 12:25 PM EDT AB COMMENT Routine 12/18/2011 12:25 PM EDT ANTIBODY IDENTIFICATION Routine 12/18/19 12 12:25 PM EDT POCT URINE DIPSTICK Routine 12/18/2011 1 1:36 AM EDT SURGICAL PATHOLOGY REPORT Routine 12/18/2011 10:44 AM EDT DIFFERENTIAL, AUTOMATED Routine 12/18/19 12 10:30 AM EDT ANTIBODY IDENTIFICATION Routine 12/18/19 12 10:30 AM EDT ABO/RH TYPING Routine 12/18/2011 10:30 AM EDT CBC (WITH DIFF) Routine 12/18/2011 10:30 AM EDT ANTIBODY SCREEN Routine 12/18/2011 10:30 AM EDT TYPE AND SCREEN ([facility]/DIDI) Routine 12/18/2011 10:30 AM EDT ASPARTATE AMINOTRANSFERASE Routine 12/18/2011 10:30 AM EDT documented in this encounter Results * POCT GLUCOSE (12/20/2011 6:55 PM EDT) POC Glucose 115 60 - 199 mg/dL [facility] Comment: Supplemental ranges: <110 mg/dL before meals <200 mg/dL all other times of the day Blood specimen (specimen) 12/20/2011 6:55 PM EDT 12/20/2011 6:55 PM EDT Pam Prasad MD POINT OF CARE TEST O TARUN Performing Organization Address City/State/[facility] Co de Phone Number [facility] * POCT GLUCOSE (12/20/2011 2:00 PM EDT) POC Glucose 106 60 - 199 mg/dL [facility] Comment: Supplemental ranges: <110 mg/dL before meals <200 mg/dL all other times of the day Blood specimen (specimen) 12/20/2011 2:00 PM EDT 12/20/2011 2:00 PM EDT Pam Prasad MD POINT OF CARE TEST O RDERABLES Performing Organization Address [facility] Co de Phone Number [facility] * POCT GLUCOSE (12/20/2011 10:42 AM EDT) POC Glucose 139 60 - 199 mg/dL [facility] Comment: Supplemental ranges: <110 mg/dL before meals <200 mg/dL all other times of the day Blood specimen (specimen) 12/20/2011 10:42 AM EDT 12/20/2011 10:42 AM EDT Pam Prasad MD POINT OF CARE TEST O RDERABLES Performing Organization Address [facility] Co de Phone Number [facility] * POCT GLUCOSE (12/19/2011 7:34 PM EDT) POC Glucose 120 60 - 199 mg/dL [facility] Comment: Supplemental ranges: <110 mg/dL before meals <200 mg/dL all other times of the day Blood specimen (specimen) 12/19/2011 7:34 PM EDT 12/19/2011 7:34 PM EDT Pam Prasad MD POINT OF CARE TEST O RDERABLES Performing Organization Address [facility] Co de Phone Number [facility] * POCT GLUCOSE (12/19/2011 1:47 PM EDT) POC Glucose 102 60 - 199 mg/dL [facility] Comment: Supplemental ranges: <110 mg/dL before meals <200 mg/dL all other times of the day Blood specimen (specimen) 12/19/2011 1:47 PM EDT 12/19/2011 1:47 PM EDT Pam Prasad MD POINT OF CARE TEST O RDERABLES Performing Organization Address [facility] Co de Phone Number [facility] * POCT GLUCOSE (12/19/2011 10:01 AM EDT) POC Glucose 114 60 - 199 mg/dL [facility] Comment: Supplemental ranges: <110 mg/dL before meals <200 mg/dL all other times of the day Blood specimen (specimen) 12/19/2011 10:01 AM EDT 12/19/2011 10:01 AM EDT Pam Prasad MD POINT OF CARE TEST O RDERABLES Performing Organization Address [facility] Co de Phone Number [facility] * POCT GLUCOSE (12/19/2011 7:56 AM EDT) POC Glucose 88 60 - 199 mg/dL [facility] Comment: Supplemental ranges: <110 mg/dL before meals <200 mg/dL all other times of the day Blood specimen (specimen) 12/19/2011 7:56 AM EDT 12/19/2011 7:56 AM EDT Pam Prasad MD POINT OF CARE TEST O RDTONO Performing Organization Address [facility] de Phone Number [facility] * (ABNORMAL) DIFFERENTIAL, AUTOMATED (12/19/2011 6:10 AM EDT) Neutrophils % 72.0(H) 34.0 - 71.0 % [facility] Neutr Abs (ANC) 7.98(H) 1.50 - 6.30 x10(3)/mc L [facility] Lymphocytes % 20.8 19.0 - 53.0 % CERNER MILLENNIUM Lymphocytes Abs 2.3 1.0 - 3.6 x10(3)/mc L [facility] Monocytes % 6.7 4.0 - 13.0 % CERNER MILLENNIUM Monocyte Abs 0.7 0.2 - 1.0 x10(3)/mc L [facility]EN[facility] Eosinophils % 0.2 0.0 - 7.0 % CERNER MILLENNIUM Eosinophils Abs 0.0 0.0 - 0.5 x10(3)/mc L CERNER MILLENNIUM Basophils % 0.1 0.0 - 2.0 % CERNER MILLENNIUM Basophils Abs 0.0 0.0 - 0.2 x10(3)/mc L [facility] Immature Gran % 0.20 0.00 - 0.66 % [facility] Comment: Immature granulocytes(IG's)percentage and absolute count will include metamyelocytes, myelocytes, and promyelocytes. Blood smears from CBCs yielding IG's will be scanned manually for concordance. If this scan disagrees with the automated IG or if promyelocytes are noted, a manual differential will be performed. Rebecca Gran Abs 0.02 0.00 - 0.05 x10(3)/mc L [facility] Blood specimen (specimen) 12/19/2011 6:10 AM EDT 12/19/2011 6:28 AM EDT Pam Prasad MD HEMATOLOGY ORDERABLE S [facility] * (ABNORMAL) Creatinine, serum (12/19/2011 6:10 AM EDT) Creatinine 0.45(L) 0.70 - 1.20 mg/dL [facility] Comment: Please note that the pediatric reference intervals supplied above were not validated at [facility]. Results from pediatric patients should be interpreted in conjunction to the patient's age, height and muscle mass. Estimated GFR >60 >=60 [facility] Comment: The National Kidney Disease Education Program (NKDEP) has recommended all laboratories report estimated GFR (eGFR) along with plasma creatinine measurements to assist you with recognition of early kidney disease. Caveats: ??Plasma creatinine should be at steady-state (unchanged within the past week). For patients multiply eGFR by 1.2. The MDRD equation was developed using patients between the ages of 18 and 70 years. ?? The MDRD equation has not been validated for patients < 18 years of age and should not be used to assess renal function in the pediatric population. ??The MDRD eGFR equation will also overestimate the true GFR of patients above the age of 70. ??This overestimation is variable but increases with age. At present, NKDEP does NOT recommend using the MDRD equation for drug dosing purposes and pharmacists should continue to use their current dosing methods. In addition, numerical eGFR values greater than 60 ml/min/1.73 square meters should be treated as > 60, and not an exact number due to greater inaccuracies at these higher values. Per NKDEP, they classify normal renal function as any GFR >60ml/min/1.73 square meters; chronic kidney disease when GFR <60, and renal failure when GFR <15. ??This calculation may not be valid for patients with atypical muscle mass (very lean or obese), acute renal failure, and in patients with diabetic kidney disease. References: http://nkdep.nih.gov/resources/NKDEP_Suggestn4Labs_0606_508.pdf http://www.kidney.org/professionals/kls/pdf/faq_gfr.pdf Jose K, Lisa NA, Greta AK, Eric TS, Waleska AD, Mary Jane MARI. Relative performance of the MDRD and CKD-EPI equations for estimating glomerular filtration rate among patients with varied clinical presentations. Clin J Am Soc Nephrol;6:1963-72. Blood specimen (specimen) 12/19/2011 6:10 AM EDT 12/19/2011 6:28 AM EDT Narrative Resulting Agency Comment Spec In Lab Pam Prasad MD CHEMISTRY ORDERABLES Performing Organization Address [facility] Co de Phone Number ANA GILMAN * Aspartate Aminotransferase (12/19/2011 6:10 AM EDT) AST 28 0 - 30 unit/L [facility] Blood specimen (specimen) 12/19/2011 6:10 AM EDT 12/19/2011 6:28 AM EDT Narrative Resulting Agency Comment Spec In Lab Pam Prasad MD CHEMISTRY ORDERABLES Performing Organization Address [facility] Co de Phone Number ANA FERNÁNDEZIUM * (ABNORMAL) CBC (with Diff) (12/19/2011 6:10 AM EDT) WBC 11.1(H) 4.0 - 10.0 x10(3)/mcL CERNER MILLENNIUM RBC 4.16 3.93 - 5.22 x10(6)/mcL CERNER MILLENNIUM Hemoglobin 13.0 11.2 - 15.7 gm/dL [facility] Hematocrit 37.6 34.0 - 45.0 % [facility] MCV 90.4 79.0 - 94.0 fL [facility] MCH 31.3 26.6 - 32.2 pg [facility] MCHC 34.6 32.0 - 36.5 gm/dL [facility] Platelets 162 145 - 370 x10(3)/mcL [facility] RDWSD 43.0 35.0 - 46.0 fL [facility] RDWCV 13.3 10.9 - 14.4 % [facility] MPV 9.7 9.0 - 12.0 fL [facility] Blood specimen (specimen) 12/19/2011 6:10 AM EDT 12/19/2011 6:28 AM EDT Narrative Resulting Agency Comment Spec In Lab Pam Prasad MD HEMATOLOGY ORDERABLE S Performing Organization Address [facility] de Phone Number [facility] * POCT GLUCOSE (12/18/2011 9:11 PM EDT) POC Glucose 75 60 - 199 mg/dL [facility] Comment: Supplemental ranges: <110 mg/dL before meals <200 mg/dL all other times of the day Blood specimen (specimen) 12/18/2011 9:11 PM EDT 12/18/2011 9:11 PM EDT Pam Prasad MD POINT OF CARE TEST O TARUN Performing Organization Address [facility] de Phone Number [facility] * Specimen to Pathology (NON-OR) (12/18/2011 7:07 PM EDT) AP Specimen 12/18/2011 7:07 PM EDT 12/18/2011 7:07 PM EDT Narrative [facility] - 12/18/2011 7:07 PM EDT Specimen requisition ordered. ??Separate Pathology report to follow Pam Prasad MD PATHOLOGY/CYTOLOGY O TARUN Performing Organization Address [facility]/ZIP Co de Phone Number [facility] * POCT GLUCOSE (12/18/2011 2:34 PM EDT) POC Glucose 130 60 - 199 mg/dL [facility] Comment: Supplemental ranges: <110 mg/dL before meals <200 mg/dL all other times of the day Blood specimen (specimen) 12/18/2011 2:34 PM EDT 12/18/2011 2:34 PM EDT Pam Prasad MD POINT OF CARE TEST O RDERABLES Performing Organization Address [facility] Phone Number [facility] * POCT GLUCOSE (12/18/2011 1:48 PM EDT) POC Glucose 61 60 - 199 mg/dL [facility] Comment: Supplemental ranges: <110 mg/dL before meals <200 mg/dL all other times of the day Blood specimen (specimen) 12/18/2011 1:48 PM EDT 12/18/2011 1:48 PM EDT Pam Prasad MD POINT OF CARE TEST O RDERABLES Performing Organization Address [facility] Phone Number [facility] * AB COMMENT (12/18/2011 12:25 PM EDT) Ab Information INTERPRETATION : The patient's specimen shows the presence of the antibody anti-D. ??The patient is negative for the RhD antigen. ??The patient recently received RhIg; the reactivity in the specimen almost certainly represents passive anti-D. ??Unit selection is per routine. ZMS, 12/25/2011 [facility] Comment: SALAZAR MOORE, Pathologist Verified:12/25/11 Blood specimen (specimen) 12/18/2011 12:25 PM EDT 12/18/2011 12:25 PM EDT Narrative Resulting Agency Comment Spec In Lab Pam Prasad MD BLOOD BANK LAB ORDER MARIJA Performing Organization Address [facility]/ZIP Co de Phone Number ANA GILMAN * ANTIBODY IDENTIFICATION (12/18/2011 12:25 PM EDT) Pathologist [facility] Ab Identified Anti-D passive [facility] Blood specimen (specimen) 12/18/2011 12:25 PM EDT 12/18/2011 12:25 PM EDT Narrative Resulting Agency Comment Spec In Lab Pam Prasad MD BLOOD BANK LAB ORDER MARIJA Performing Organization Address [facility] Co de Phone Number ANA GILMAN * SELECTED CELL SCREEN (12/18/2011 12:25 PM EDT) Pathologist [facility] Ab Screen Interp Anti-D detected, most likely passive antibody related to Rh Immune Globulin administrated on 10/13/2011_. ??No alloantibodies detected. [facility] Blood specimen (specimen) 12/18/2011 12:25 PM EDT 12/18/2011 12:25 PM EDT Narrative Resulting Agency Comment Spec In Lab Pam Prasad MD BLOOD BANK LAB ORDER MARIJA Performing Organization Address [facility] de Phone Number ANA GILMAN * POCT urine dipstick (12/18/2011 11:36 AM EDT) Pathologist [facility] POC Sp [place] 1.002 - 1.030 POC pH, UA 5.0 - 8.5 POC Leuk, UA neg Negative - Negative POC Nitrite, UA neg Negative - Negative POC Protein, UA ++ Negative - Negative mg/dL POC Glucose, UA neg Normal - Normal mg/dL POC Ketone, UA neg Negative - Negative POC Urobil, UA 0.2 - 1.0 mg/dL POC Bili, UA neg Negative - Negative POC Blood, UA neg Negative - Negative emilia/uL Urine specimen (specimen) 12/18/2011 11:36 AM EDT Pam Prasad MD POINT OF CARE TEST O RDERABLES * SURGICAL PATHOLOGY REPORT (12/18/2011 10:44 AM EDT) Surgical Pathology Report ? [facility] ? Provider: ?? PAM PRASAD ?Pt. Name: ?? MIGDALIA GARCIA ? Acc #: ?[id number] ?Pt. ? Col Date: ?? 12/18/2011 ? /Sex: ?1980,(31 ? years),Female ? Rec Date: ?? 12/22/2011 ?LOC: ?[facility] ? SURGICAL PATHOLOGY ? ---Pathologic Diagnosis--- ? Third trimester placenta, cord and membranes: ? Negative for chorioamnionitis or funisitis (see Comment). ? CR-0 ? 12/24/11 ? KO ? 12/24/11 Verified by: ? Antonia Preston MD ? Pathologist ? (Electronic Signature) ? The attending pathologist whose signature appears on this report has ? reviewed all diagnostic slides and has edited the gross and/or ? microscopic portion of the report in rendering the final pathologic ? diagnosis. ? ---Comment--- ? The usual stigmata of preeclampsia are absent except for focal Erendira- ? Mati change. ? ---Microscopic Description--- ? Slides reviewed, microscopic description not recorded. ? ---Gross Description--- ? Labeled/Fixative: ? Labeled with the patient's name, fresh. ? Qty/Size/Weight: ?Single, 19.0 x 17.0 x 3.0 cm, 506 g. ? Tissue Description: ?? Discoid hamm placenta. ?Membranes: ? [place], clear. ??Marginal insertion. ?Cord: ?62.0 x 1.5 cm; three vessels; eccentric insertion. ? Surface: ? Purple and clear. ?Maternal Surface: ??Intact. ?Parenchyma: ?The specimen is serially sectioned at 0.5-cm to ? 1.0-cm intervals. ??Sections show a spongy, purple ? parenchyma without gross lesion. ? Sections/Processing : ??Sections are submitted as follows: ??(1) membrane ? roll; (2) proximal and distal cord; (3) ? surface with parenchyma; (4) maternal surface ? with parenchyma. ??(R4) ??aje/SNS ? ---Clinical Information--- ? Specimen Submitted: ? A - Placenta ? [facility] ? Provider: ?? PAM PRASAD ?Pt. Name: ?? MIGDALIA GARCIA ? Acc #: ?[id number] ?Pt. ? Col Date: ?? 12/18/2011 ? /Sex: ?1980,(31 ? years),Female ? Rec Date: ?? 12/22/2011 ?LOC: ?BP ? SURGICAL PATHOLOGY ? Clinical History/Diagnosis: ? 31 yo S/P repeat section with preeclampsia CERNER MILLENNIUM 12/18/2011 10:4 4 AM EDT Pam Prasad MD PATHOLOGY/CYTOLOGY O RDERABLES Performing Organization Address [facility] Co de Phone Number [facility] * ANTIBODY IDENTIFICATION (12/18/2011 10:30 AM EDT) Pathologist [facility] Ab Identified Anti-D passive [facility] Blood specimen (specimen) 12/18/2011 10:30 AM EDT 12/18/2011 11:04 AM EDT Narrative Resulting Agency Comment Spec In Lab Pam Prasad MD BLOOD BANK LAB ORDER MARIJA Performing Organization Address [facility] Co de Phone Number [facility] * DIFFERENTIAL, AUTOMATED (12/18/2011 10:30 AM EDT) Neutrophils % 65.5 34.0 - 71.0 % CERNER MILLENNIUM Neutr Abs (ANC) 5.73 1.50 - 6.30 x10(3)/mcL CERNER MILLENNIUM Lymphocytes % 27.3 19.0 - 53.0 % CERNER MILLENNIUM Lymphocytes Abs 2.4 1.0 - 3.6 x10(3)/mcL CERNER MILLENNIUM Monocytes % 6.4 4.0 - 13.0 % CERNER MILLENNIUM Monocyte Abs 0.6 0.2 - 1.0 x10(3)/mcL CERNER MILLENNIUM Eosinophils % 0.5 0.0 - 7.0 % CERNER MILLENNIUM Eosinophils Abs 0.0 0.0 - 0.5 x10(3)/mcL CERNER MILLENNIUM Basophils % 0.1 0.0 - 2.0 % CERNER MILLENNIUM Basophils Abs 0.0 0.0 - 0.2 x10(3)/mcL CERNER MILLENNIUM Immature Gran % 0.20 0.00 - 0.66 % CERNER MILLENNIUM Comment: Immature granulocytes(IG's)percentage and absolute count will include metamyelocytes, myelocytes, and promyelocytes. Blood smears from CBCs yielding IG's will be scanned manually for concordance. If this scan disagrees with the automated IG or if promyelocytes are noted, a manual differential will be performed. Rebecca Gran Abs 0.02 0.00 - 0.05 x10(3)/mcL CERNER MILLENNIUM Blood specimen (specimen) 12/18/2011 10:30 AM EDT 12/18/2011 10:46 AM EDT Pam Prasad MD HEMATOLOGY ORDERABLE S ANA LILLYENNIUM * ANTIBODY SCREEN (12/18/2011 10:30 AM EDT) Ab Screen Interp Positive CERNER MAXXENNIUM Expires at [id number] on: [id number] CERNER MILLENNIUM Blood specimen (specimen) 12/18/2011 10:30 AM EDT 12/18/2011 10:50 AM EDT Narrative Resulting Agency Comment Spec In Lab Pam Prasad MD BLOOD BANK LAB ORDER MARIJA ANA FERNÁNDEZIUM * ABO/RH TYPING (12/18/2011 10:30 AM EDT) ABORH Type A Neg CERNER MILLENNIUM Blood specimen (specimen) 12/18/2011 10:30 AM EDT 12/18/2011 10:50 AM EDT Narrative Resulting Agency Comment Spec In Lab Pam Prasad MD BLOOD BANK LAB ORDER MARIJA Performing Organization Address [facility] de Phone Number ANA FERNÁNDEZIUM * Aspartate Aminotransferase (12/18/2011 10:30 AM EDT) AST 21 0 - 30 unit/L ANA LILLYENNIUM Blood specimen (specimen) 12/18/2011 10:30 AM EDT 12/18/2011 10:46 AM EDT Narrative Resulting Agency Comment Spec In Lab Pam Prasad MD CHEMISTRY ORDERABLES Performing Organization Address [facility] Co de Phone Number ANA FERNÁNDEZIUM * CBC (with Diff) (12/18/2011 10:30 AM EDT) WBC 8.8 4.0 - 10.0 x10(3)/mcL CERNER MILLENNIUM RBC 4.42 3.93 - 5.22 x10(6)/mcL CERNER MILLENNIUM Hemoglobin 13.9 11.2 - 15.7 gm/dL CERNER MILLENNIUM Hematocrit 39.6 34.0 - 45.0 % CERNER MILLENNIUM MCV 89.6 79.0 - 94.0 fL CERNER MILLENNIUM MCH 31.4 26.6 - 32.2 pg CERNER MILLENNIUM MCHC 35.1 32.0 - 36.5 gm/dL CERNER MILLENNIUM Platelets 161 145 - 370 x10(3)/mcL CERNER MILLENNIUM RDWSD 43.2 35.0 - 46.0 fL CERNER MILLENNIUM RDWCV 13.4 10.9 - 14.4 % CERNER MILLENNIUM MPV 10.2 9.0 - 12.0 fL CERNER MILLENNIUM Blood specimen (specimen) 12/18/2011 10:30 AM EDT 12/18/2011 10:46 AM EDT Narrative Resulting Agency Comment Spec In Lab Pam Prasad MD HEMATOLOGY ORDERABLE S ANA GILMAN documented in this encounter Visit Diagnoses Not on filedocumented in this encounter Active and Recently Administered Medications Times are shown in EDT. Scheduled Medication Order 12/19/2011 12/20/2011 12/21/2011 docusate sodium (COLACE) capsule 100 mg 100 mg, Oral, 2 TIMES DAILY, First dose on Wed12/18/11 at 2100, Until Discontinued, Routine 0900 (Given - Provider: Oscar Rascon RN)2100 (Given - Provider: Kerri Best RN) 0900 (Given - Provider: Mayelin Oh RN)211 (Given - Provider: Makenzie Tobias RN) 0900 (Given - Provider: Mayelin Oh RN) esomeprazole (NEXIUM) capsule 40 mg (CANCELED) 40 mg, Oral, DAILY, First dose on 12/19/11 at 0900, Until Discontinued, Routine 0900 (Given - Provider: Oscar Rascon RN) 0900 (Given - Provider: Mayelin Oh RN) 0900 (Given - Provider: Mayelin Oh RN) metFORMIN (GLUCOPHAGE) tablet 500 mg 500 mg, Oral, 2 TIMES DAILY WITH MEALS, First dose on 12/19/11 at 0800, Until Discontinued, Routine 0845 (Given - Provider: Oscar Rascon RN)1700 (Hold - Provider: Oscar Rascon RN - Reason: See comment - Comment: pt to call when dinner received)1822 (Given - Provider: Oscar Rascon RN) 0800 (Given - Provider: Mayelin Oh RN)1700 (Given - Provider: Mayelin Oh RN) 0800 (Given - Provider: Mayelin Oh RN) methyldopa (ALDOMET) tablet 250 mg (CANCELED) 250 mg, Oral, EVERY 12 HOURS SCHEDULED (2 times per day), First dose on 12/19/11 at 0200, Until Discontinued 0200 (Given - Provider: Kerri Best RN)0900 (Given - Provider: Oscar Rascon RN)2100 (Given - Provider: Kerri Best RN) 09 (Given - Provider: Mayelin Oh, BEREKET)2110 (Given - Provider: Makenzie Tobias, BEREKET) 09 (Given - Provider: Mayelin Oh RN) NIFEdipine (ADALAT CC) CR tablet 30 mg 30 mg, Oral, 2 TIMES DAILY, First dose on 12/20/11 at 1015, Until Discontinued, Routine 1015 (Given - Provider: Mayelin Oh RN)2110 (Given - Provider: Makenzie Tobias RN) 09 (Given - Provider: Mayelin Oh, BEREKET) Continuous Medication Order 12/19/2011 12/20/2011 12/21/2011 magnesium sulfate 20 g/500 mL infusion () 2 g/hr (rounded to 50 mL/hr), Intravenous, CONTINUOUS, Starting on 12/18/11 at 1945, Until 12/19/11 at 1944, Administer 4 gram bolus over 20 minutes, and then run at 2 g/hour (50 mL/hour), Routine 0300 (New Bag - Provider: Kerri Best RN)1300 (New Bag - Provider: Oscar Rascon, BEREKET)1800 (Stopped - Provider: Oscar Rascon RN) PRN Medication Order 12/19/2011 12/20/2011 12/21/2011 diphenhydrAMINE (BENADRYL) capsule 25 mg (CANCELED) 25 mg, Oral, EVERY 6 HOURS PRN, Starting on 12/19/11 at 0321, Until 12/21/11 at 1354, Itching, Routine 0330 (Given - Provider: Kerri Best RN) ibuprofen (ADVIL;MOTRIN) tablet 600 mg(Linked Group 1) 600 mg, Oral, EVERY 6 HOURS PRN, Starting on 12/19/11 at 1000, Until 12/21/11 at 1354, Pain, - Begin after ketorolac discontinued. , Routine 1605 (Given - Provider: Katelin Vegas RN) 0835 (Given - Provider: Mayelin Oh, BEREKET)1406 (Given - Provider: Lakesha Worley RN)211 (Given - Provider: Makenzie Tobias RN) 0740 (Given - Provider: Mayelin Oh RN) ketorolac (TORADOL) injection 30 mg (CANCELED)(Linked Group 1) 30 mg, Intravenous, EVERY 6 HOURS PRN, Starting on Wed12/18/11 at 1907, Until 12/19/11 at 0745, Pain, Routine 0015 (Given - Provider: Kerri Best RN)0631 (Given - Provider: Kerri Best RN) measles, mumps and rubella vaccine (MMR) vaccine injection 0.5 mL (COMPLETED) 0.5 mL, Subcutaneous, PRIOR TO DISCHARGE, 1 dose, Starting on 12/19/11 at 0723, Until 12/20/11 at 2110, Per Protocol, Routine 2109 (Given - Provider: Makenzie Tobias RN) OXYcodone-acetaminophen (PERCOCET) 5-325 mg per tablet 1-2 tablet 1-2 tablet, Oral, EVERY 3 HOURS PRN, Starting on Wed12/18/11 at 1907, Until 12/21/11 at 1354, Pain, moderate-severe pain, Administer 1 tablet for moderate pain and 2 tablets for severe pain. Maximum dose of acetaminophen is 4,000 mg from all sources in 24 hours., Routine 2323 (Given - Provider: Kerri Best RN) 0837 (Given - Provider: Mayelin Oh RN)1859 (Given - Provider: Mayelin Oh RN) 0740 (Given - Provider: Mayelin Oh RN) Linked Groups Order Group 1: ketorolac (TORADOL) injection 30 mg (CANCELED)Jump to med 30 mg, Intravenous, EVERY 6 HOURS PRN, Starting on Wed12/18/11 at 1907, Until 12/19/11 at 0745, Pain, Routine Followed by ibuprofen (ADVIL;MOTRIN) tablet 600 mgJump to med 600 mg, Oral, EVERY 6 HOURS PRN, Starting on 12/19/11 at 1000, Until 12/21/11 at 1354, Pain, - Begin after ketorolac discontinued. , Routine documented in this encounter Care Teams Senior Product Development Scientist Relationship Specialty Start Date End Date Dav Carlos MD PCP - General 10/01/10 11/30/12 documented as of this encounter
--- OUTSIDE RECORDS SUMMARY | 2023-10-28 21:40 | XMS_ITS | Encounter Summary ---
Author Organization [facility] [place] [address] Care Team Providers Care Umbrella Tipper Hand Name Role Phone Dav Carlos MD Primary Care Provider [phone] Reason for Visit * Reason Comments Non-stress Test Encounter Details Date Type Department Care Team (Latest Contact Info) Description 11/20/2011 2:30 PM EDT Routine Obst[facility]s and [facility]necology at [facility] [place] [id number] Alexandre Powers RN GA: [id number] Discharge Disposition: Home Social History Tobacco Use [...] Sign Reading Time Taken Comments Blood Pressure 130/80 11/20/2011 3:07 PM EDT Pulse - - Temperature - - Respiratory Rate - - Oxygen Saturation - - Inhaled Oxygen Concentration - - Weight 123.1 kg (271 lb 6.4 oz) 11/20/2011 3:07 PM EDT Height - - Body Mass Index 45.16 05/14/2011 9:46 AM EST documented in this encounter Progress Notes * Phuong Mock MD - 11/20/2011 7:40 PM EDT I personally reviewed the FHR tracing and documented the interpretation. PHUONG MOCK MD * Alexandre Powers RN - 11/20/2011 5:36 PM EDT Here for regular scheduled NST d/t Type II diabetes. Glucose values in good control. Feels baby does not move as much when she is tired but + kick count. Having some swelling in feet but improved by morning after rest. Denies any bleeding, leaking, contractions, headaches. Has appointments for next week. In review of glucose values, several FBS elevated, discussed with Dr. Mock will increase bedtime NPH from 28 units to 34 units. documented in this encounter Plan of Treatment Not on file documented as of this encounter Visit Diagnoses Diagnosis Obesity in Obesity complicating , childbirth, or the puerperium, unspecified as to episode of care or not applicable Hx of preeclampsia, prior , currently with other poor obstetric history Hypertension Unspecified essential hypertension Diabetes mellitus Type II or unspecified type diabetes mellitus without mention of complication, not stated as uncontrolled Previous section Other postprocedural status documented in this encounter Care Teams Umbrella Tipper Hand Relationship Specialty Start Date End Date Dav Carlos MD PCP - General 10/01/10 11/30/12 documented as of this encounter
--- OUTSIDE RECORDS SUMMARY | 2023-10-28 21:40 | XMS_ITS | Encounter Summary ---
Author Organization [facility] [place] [address] Care Team Providers Care Eastern Philosophy Professor Name Role Phone Dav Carlos MD Primary Care Provider [phone] Encounter Details Date Type Department Care Team (Latest Contact Info) Description 08/11/2011 9:25 AM EDT - 08/11/2011 11:59 PM EDT Hospital Encounter Ultrasound at [facility] [place] [phone] Unspecified high-risk Social History Tobacco Use Types [...] (with meals). 60 tablet 1 12/21/2011 01/30/2013 methyldopa (ALDOMET) 250 mg tablet Take 1 [...] Priority Date/Time Associated Diagnosis Comments US OB SCREENING MORPHOLOGY Routine 08/11/2011 10:45 AM EDT Unspecified high-risk documented in this encounter Results * US OBS SCREENING MORPHOLOGY (08/11/2011 10:45 AM EDT) Anatomical Region Laterality Modality Pelvis, Abdomen Ultrasound 08/11/2011 10:4 5 AM EDT Narrative 08/11/2011 11:11 AM EDT ?OBSTETRICS REPORT ? (Signed Final 08/11/2011 11:09 am) Patient Info ID: ? [id number] ? : ??[birth year] (31 yrs) Name: ? MIGDALIA MOREIRA ? Visit Date: 08/11/2011 10:21 am Performed By Performed By: ?Caryl Yepez [facility] Associate: ? Perri PENALOZA, Elvia Turner Attending: ? Arik PENALOZA, E ??Valerie Referred By: ? PHUONG SANTIAGO MD Service(s) Provided UOBS - Screening Morphology - [id number] ? [id number] UOBTV - Viability - Cervical Length - Transvaginal - ??[id number] Indications Screening Morphology Evaluation Num Of Fetuses: ?1 Heart Rate: ??165 ?bpm Cardiac Activity: ??Observed, normal rhythm Presentation: ?Breech Placenta: ?Anterior P. Cord ?Within Normal Limits Insertion: Amniotic Fluid CAMILO FV: ?Normal -------- Biometry -------- BPD: ?42.7 ??mm ?G. Age: ?? 18w 6d OFD: ?56.7 ??mm HC: ?159.8 ??mm ?G. Age: ?? 18w 6d AC: ?136.3 ??mm ?G. Age: ?? 19w 0d FL: ? 30.2 ??mm ?G. Age: ?? 19w 3d HUM: ?28.5 ??mm ?G. Age: ?? 19w 1d CER: ?19 ??mm ?G. Age: ?? 18w 4d NFT: ? 3.7 ??mm NB: ?5.7 ??mm CI: ?75.3 ??% ? 70 - 86 FL/HC: ? 18.9 ??% ? 16.1 - 18.3 HC/AC: ? 1.17 ?1.09 - 1.39 FL/BPD: ?70.7 ??% FL/AC: ? 22.2 ??% ? 20 - 24 Est. FW: ? 277 ?? gm ?? 0 lb 10 oz Gestational Age LMP: ? 20w 3d ?Date: ??03/21/11 ? ODETTE: ?? 12/26/11 U/S Today: ? 19w 0d ?ODETTE: ?? 01/05/12 Best: ?19w 1d ?? Det. By: ??U/S C R L ?ODETTE: ?? 01/04/12 ? (05/29/11) ------- Anatomy ------- Cranium: ?Within Normal Limits Cavum: ?Within Normal Limits Ventricles: ? Within Normal Limits Choroid Plexus: ? Within Normal Limits Cerebellum: ? Within Normal Limits Posterior Fossa: ?Within Normal Limits Nuchal Fold: ?Within Normal Limits Face: ? Limited Views Lips: ? Limited Views Heart: ?4 chamber view appears normal RVOT: ? Visualized LVOT: ? Visualized Aortic Arch: ?Visualized Ductal Arch: ?Visualized Diaphragm: ?Visualized Stomach: ?Visualized Abdomen: ?Within Normal Limits Abdominal Wall: ? Cord Insertion - WNL Cord Vessels: ? 3 vessels - WNL Kidneys: ?Within Normal Limits Bladder: ?Visualized Spine: ?Visualized Lower ? Visualized Extremities: Upper ? Visualized Extremities: Cervix Uterus Adnexa Left Ovary: ?Not visualized Right Ovary: ?? Not visualized -------- Comments -------- BMI: 43 Impression 2nd Trimester - Screening Morphology - Summary Single intrauterine with a gestational age of 19w 1d based on CRL. Composite age based on the current ultrasound alone is 19w 0d. Current growth parameters are consistent with prior dating indicating normal growth. Amniotic fluid volume is normal. anatomic evaluation was performed and no structural abnormalities are noted. Endovaginal ultrasound done for better visualization of the spine and lower extremities. I ??viewed the images and agree with the above interpretation. Thank you for allowing us to participate in the care of MIGDALIA MOREIRA. Please do not hesitate to call if you have any questions. ? Lisette Elise MD Electronically Signed Final Report ?? 08/11/2011 11:09 am Film and interpretation reviewed by the attending Procedure Note Lisette Elise MD - 08/11/2011 OBSTETRICS REPORT (Signed Final 08/11/2011 11:09 am) Patient Info ID: [id number] : [birth year] (31 yrs) Name: MIGDALIA MOREIRA Visit Date: 08/11/2011 10:21 am Performed By Performed By: Caryl Yepez [facility] Associate: Elvia Rayo MD Attending: Lisette Elise MD Referred By: PHUONG SANTIAGO MD Service(s) Provided UOBS - Screening Morphology - [id number] UOBTV - Viability - Cervical Length - Transvaginal - [id number] Indications Screening Morphology Evaluation Num Of Fetuses: 1 Heart Rate: 165 bpm Cardiac Activity: Observed, normal rhythm Presentation: Breech Placenta: Anterior P. Cord Within Normal Limits Insertion: Amniotic Fluid CAMILO FV: Normal -------- Biometry -------- BPD: 42.7 mm G. Age: 18w 6d OFD: 56.7 mm HC: 159.8 mm G. Age: 18w 6d AC: 136.3 mm G. Age: 19w 0d FL: 30.2 mm G. Age: 19w 3d HUM: 28.5 mm G. Age: 19w 1d CER: 19 mm G. Age: 18w 4d NFT: 3.7 mm NB: 5.7 mm CI: 75.3 % 70 - 86 FL/HC: 18.9 % 16.1 - 18.3 HC/AC: 1.17 1.09 - 1.39 FL/BPD: 70.7 % FL/AC: 22.2 % 20 - 24 Est. FW: 277 gm 0 lb 10 oz Gestational Age LMP: 20w 3d Date: 03/21/11 ODETTE: 12/26/11 U/S Today: 19w 0d ODETTE: 01/05/12 Best: 19w 1d Det. By: U/S C R L ODETTE: 01/04/12 (05/29/11) ------- Anatomy ------- Cranium: Within Normal Limits Cavum: Within Normal Limits Ventricles: Within Normal Limits Choroid Plexus: Within Normal Limits Cerebellum: Within Normal Limits Posterior Fossa: Within Normal Limits Nuchal Fold: Within Normal Limits Face: Limited Views Lips: Limited Views Heart: 4 chamber view appears normal RVOT: Visualized LVOT: Visualized Aortic Arch: Visualized Ductal Arch: Visualized Diaphragm: Visualized Stomach: Visualized Abdomen: Within Normal Limits Abdominal Wall: Cord Insertion - WNL Cord Vessels: 3 vessels - WNL Kidneys: Within Normal Limits Bladder: Visualized Spine: Visualized Lower Visualized Extremities: Upper Visualized Extremities: Cervix Uterus Adnexa Left Ovary: Not visualized Right Ovary: Not visualized -------- Comments -------- BMI: 43 Impression 2nd Trimester - Screening Morphology - Summary Single intrauterine with a gestational age of 19w 1d based on CRL. Composite age based on the current ultrasound alone is 19w 0d. Current growth parameters are consistent with prior dating indicating normal growth. Amniotic fluid volume is normal. anatomic evaluation was performed and no structural abnormalities are noted. Endovaginal ultrasound done for better visualization of the spine and lower extremities. I viewed the images and agree with the above interpretation. Thank you for allowing us to participate in the care of MIGDALIA MOREIRA. Please do not hesitate to call if you have any questions. Lisette Elise MD Electronically Signed Final Report 08/11/2011 11:09 am Film and interpretation reviewed by the attending Marilyn Reilly MD IMG US OB ORDERABL ES documented in this encounter Visit Diagnoses Diagnosis Unspecified high-risk documented in this encounter Care Teams Eastern Philosophy Professor Relationship Specialty Start Date End Date Dav Carlos MD PCP - General 10/01/10 11/30/12 documented as of this encounter
--- OUTSIDE RECORDS SUMMARY | 2023-10-28 21:40 | XMS_ITS | Encounter Summary ---
Author Organization [facility] [place] [address] Care Team Providers Care Correctional Facility Nurse Name Role Phone Dav Carlos MD Primary Care Provider [phone] Encounter Details Date Type Department Care Team (Late st Contact Info) Description 12/18/2011 4:02 PM EDT Anesthesia [place] [phone] Reji Banuelos MD [facility] [address] [place] [address] Julio Billy MD [facility] [place] [address] Anesthesia Record Procedure Summary Procedure Name Responsible Anesthesiologist Anesthesia Start Time Anesthesia Stop Time @ DELIVERY (WRVU 16.13) (Abdomen) Reji Banuelos MD 12/18/11 1602 12/18/11 1835 Events Date Time Event Comment 12/18/2011 1513 1602 Start 1835 Stop Meds * Agents No agents on file. * Blood No blood administrations on file. Lines, Drains, and Airways Type Details Placement Removal (RETIRED By SPR20) Incision 12/18/11; 1643 12/18/11 1643 by Amina Phillips RN (RETIRED) Peripheral IV Line - Single Lumen 12/18/11; 1050; 12/19/11; 2104 (cath intact) 12/18/11 1050 by Makenzie Sosa RN 12/19/11 2104 by Kerri Syed RN Urethral Catheter 12/18/11; 1634; indwelling double lumen catheter; 100% silicone; 16; inserted; 1; drainage bag to dependent drainage; 12/19/11; 1740 12/18/11 1634 by Amina Phillips RN 12/19/11 1740 by Becki Mosquera LNA documented in this encounter Social History Tobacco Use Types Packs/Day Years Used Date Smoking Tobacco: Never Smokeless Tobacco: Never Alcohol Use Standard Drinks/Week Comments No 0 (1 standard drink = 0.6 oz pur e alcohol) rarely Sex and Gender Information Value Date Recorded Sex Assigned at Not on file Gender Identity Female 12/01/2018 2:55 PM EDT Sexual Orientation Not on file documented as of this encounter OR Notes * Anesthesia Postprocedure Evaluation - Carmen Barth - 12/19/2011 12:50 PM EDT Anesthesiology BP Neuraxial Follow-up Note Date of Encounter: 12/19/11 Place of Service: [facility] Responsible Attending: Syed Dempsey MD House Staff / Associate Provider: Carmen Barth MD I have seen and examined Sarah in the period following neuraxial anesthesia (spinal forC/S). Please see patient flow sheet for BP, HR, RR and O2 sat. The patient is normothermic and appears well hydrated. The patient's cardiorespiratory status is at baseline. The spinal insertion site is clean and without redness, swelling or tenderness. The patient denies pain, neuropathy, significant weakness or headache. Her consciousness and sensory/motor function areat baseline. She is ambulating without difficulty. The mesa catheter has not yet been removed. There are no apparent complications related to the anesthetic the patient received. Overall, the patient expressed satisfaction with the anesthesia care she received. Please contact anesthesia for any questions or concerns. Carmen Barth MD Anesthesia CA-2 beeper # : [id number] * Anesthesia Procedure Notes - Emelina Meadows - 12/18/2011 4:50 PM EDT Associated Order(s): ANE BLOCK 2 Procedure Primary Type: Spinal & Epidural The patient was greeted; the risks and benefits were reviewed. The anesthetic consent was obtained.The medical history and chart were reviewed. The timeout was performed. Start time: 12/18/2011 4:19 PM End time: 12/18/2011 4:43 PM Patient Prep Position: Sitting Prep: chlorhexidine Injection technique: single-shot and continuous Skin Anesthetic Lidocaine 1% 5 ml Procedure Technique Level of needle insertion: L3-L4 Needle approach: midline Needle Type: Tuohy 18 ga Gauge: 18 Needle length: 10 cm Catheter at skin depth: 11 cm A 20 guage epidural catheter introduced The epidural space was identified by a loss of resistance using saline at 8 cm. Number of attempts: 3 Intrathecal Injection The patient received the following medication/s as an intrathecal injection: Bupivacaine 0.75% w dextrose1 ml Morphine 150 mcg Events/Notes Additional Notes: Tight spaces. Performed by Nadia Banuelos and Nadia Meadows * Anesthesia Preprocedure Evaluation - Rubia Saha - 12/18/2011 9:38 AM EDT Anesthesia Evaluation Patient summary reviewed and Nursing notes reviewed No hx of anesthetic complications Airway Mallampati: IV TM distance: >3 FB Neck ROM: full Dental Comment: Pt denies any loose or broken teeth. Pulmonary breath sounds clear to auscultation (+) sleep apnea (Pt does not use CPAP. Pt was diagnosed by sleep study. She states that she feels claustrophobic using CPAP while .), (-) asthma, shortness of breath and recent URI Cardiovascular (+) hypertension (BP 142/100 today. ), (-) murmur Rhythm: regular Rate: normal Neuro/Psych (+) neuromuscular disease, headaches (Pt has a h/o migraine headaches.), psychiatric history GI/Hepatic/Renal (+) GERD (Pt is on omeprazole at baseline, but states that as her has progressed, her symptoms have been more difficult to control. ) poorly controlled, Comments: Pt ate a breakfast sandwich at 0800 this morning (12/18/11). Endo/Other (+) Type II DM using insulin, (-) clotting problem Comments: Pt had an intrathecal catheter placed for her previous , dosed with 7.5 mg of 0.75% bupivacaine total (0.5 ml increments) and 200 mcg of intrathecal PF morphine. Pt denies any issues with the catheter placement, and denies PDPH. Pt had an awake fiberoptic intubation for tonsillectomy in the past, but was intubated asleep at [facility] for a cholecystectomy (she does not recall being told that ETT placement was difficult). Pt has NKDA. Pertinent laboratory values: Hg 13.9, plt count 161. Antibody screen expires 12/21/11 - positive for Anti-D antibody. Abdominal (+) obesity, Other findings: Pt has an 18# PIV in the left AC. Anesthesia Plan ASA 3 Pt is a 31 y.o. female at 37 weeks and four days who presents with preeclampsia (visual aura two days ago, now resolved, and BP's in the 140-150s/90s-100) who is scheduled for a repeat . Pt's PMHx is significant for CADY, ante- HTN, IDDM, and h/o awake fiberoptic intubation with previous surgery. Pt underwent placement of an intrathecal catheter with prior . Pt has only been NPO since 0800, so will proceed with at 1600. Discussed the plan for a CSE vs intrathecal catheter. Risks were discussed at length, and all questions and concerns were addressed. Consent was obtained, and the appropriate paperwork was placed in the patient's chart. Anesthetic plan and risks discussed with patient. Use of blood products discussed with patient whom. Plan discussed with attending. documented in this encounter Plan of Treatment Not on file documented as of this encounter Visit Diagnoses Not on filedocumented in this encounter Care Teams Correctional Facility Nurse Relationship Specialty Start Date End Date Dav Carlos MD PCP - General 10/01/10 11/30/12 documented as of this encounter
--- OUTSIDE RECORDS SUMMARY | 2023-10-28 21:40 | XMS_ITS | Encounter Summary ---
Author Organization [facility] [place] [address] Care Team Providers Care Wellness Program Coordinator Name Role Phone Dav Carlos MD Primary Care Provider [phone] Encounter Details Date Type Department Care Team (Latest Contact Info) Description 08/11/2011 9:30 AM EDT Routine Obstetrics [place] [phone] CLINIC, Lisette Aviles MD [facility] OBSTETRICS [place] [address] GA: 19w1d Discharge Disposition: Home Social History Tobacco Use [...] Sign Reading Time Taken Comments Blood Pressure 138/82 08/11/2011 9:19 AM EDT Pulse - - Temperature - - Respiratory Rate - - Oxygen Saturation - - Inhaled Oxygen Concentration - - Weight 118 kg (260 lb 3.2 oz) 08/11/2011 9:19 AM EDT Height - - Body Mass Index 43.3 05/14/2011 9:46 AM EST documented in this encounter Progress Notes * Lisette Elise MD - 08/13/2011 8:36 AM EDT Morph today: limited views of face/lips. Plan for reevaluation at next ultrasound. Reports good glycemic control. RTC 2 -3 weeks with echo. documented in this encounter Plan of Treatment Not on file documented as of this encounter Visit Diagnoses Diagnosis BMI 43- Primary Obesity complicating , childbirth, or the puerperium, unspecified as to episode of care or not applicable documented in this encounter Care Teams Wellness Program Coordinator Relationship Specialty Start Date End Date Dav Carlos MD PCP - General 10/01/10 11/30/12 documented as of this encounter
--- OUTSIDE RECORDS SUMMARY | 2023-10-28 21:40 | XMS_ITS | Encounter Summary ---
Author Organization [facility] [place] [address] Care Team Providers Care Director Executive Communications Name Role Phone Dav Carlos MD Primary Care Provider [phone] Encounter Details Date Type Department Care Team (Latest Contact Info) Description 12/18/2011 9:30 AM EDT Routine Obstetrics [place] [address] CLINIC, Lisette Aviles MD [facility] OBSTETRICS & [place] [address] GA: 37w4d Discharge Disposition: Home Social History Tobacco Use [...] Sign Reading Time Taken Comments Blood Pressure 142/100 12/18/2011 9:00 AM EDT Pulse - - Temperature - - Respiratory Rate - - Oxygen Saturation - - Inhaled Oxygen Concentration - - Weight 124.9 kg (275 lb 4.8 oz) 12/18/2011 9:00 AM EDT Height - - Body Mass Index 45.81 05/14/2011 9:46 AM EST documented in this encounter Progress Notes * Lisette Elise MD - 12/18/2011 9:35 AM EDT Patient presents for FLM amniocentesis, however has elevated BP and new onset proteinuria, as well as history of preeclampsia in prior . Plan: to BP for delivery due to mild preeclampsia at term. documented in this encounter Plan of Treatment Not on file documented as of this encounter Visit Diagnoses Diagnosis Mild preeclampsia- Primary Mild or unspecified pre-eclampsia, unspecified as to episode of care documented in this encounter Care Teams Director Executive Communications Relationship Specialty Start Date End Date Dav Carlos MD PCP - General 10/01/10 11/30/12 documented as of this encounter
--- OUTSIDE RECORDS SUMMARY | 2023-10-28 21:40 | XMS_ITS | Encounter Summary ---
Author Organization [facility] [place] [address] Care Team Providers Care Dry Paste Supervisor Name Role Phone Dav Carlos MD Primary Care Provider [phone] Reason for Visit * Reason Comments Non-stress Test Encounter Details Date Type Department Care Team (Latest Contact Info) Description 12/11/2011 11:15 AM EDT Routine Obstetrics and Gynecology at [facility] [place] [phone] Alexandre Powers, RN GA: 36w4d Discharge Disposition: Home Social History Tobacco Use [...] Sign Reading Time Taken Comments Blood Pressure 126/80 12/11/2011 12:17 PM EDT Pulse - - Temperature - - Respiratory Rate - - Oxygen Saturation - - Inhaled Oxygen Concentration - - Weight 126.1 kg (278 lb 1.6 oz) 012 12:17 PM EDT Height - - Body Mass Index 46.28 05/14/2011 9:46 AM EST documented in this encounter Progress Notes * Alexandre Powers, RN - 12/11/2011 12:21 PM EDT Here for regular scheduled NST d/t Type II diabetes. Patient tired but otherwise well. Reports goodfetal movement, denies any leaking, bleeding or regular contractions, headaches does feel some increase lower abdominal pressure. Reports good blood sugar control. Dr. Mock reviewed NST. Looking forward to delivery. Baby's name is Torrie. documented in this encounter Plan of Treatment Not on file documented as of this encounter Visit Diagnoses Diagnosis Supervision of high-risk Unspecified high-risk Previous section Other postprocedural status Obesity in Obesity complicating , childbirth, or the puerperium, unspecified as to episode of care or not applicable Hypertension Unspecified essential hypertension Diabetes mellitus Type II or unspecified type diabetes mellitus without mention of complication, not stated as uncontrolled documented in this encounter Care Teams Dry Paste Supervisor Relationship Specialty Start Date End Date Dav Carlos MD PCP - General 10/01/10 11/30/12 documented as of this encounter
--- OUTSIDE RECORDS SUMMARY | 2023-10-28 21:40 | XMS_ITS | Encounter Summary ---
Author Organization [facility] [place] [address] Care Team Providers Care Referral Nurse Name Role Phone Dav Carlos MD Primary Care Provider [phone] Reason for Visit * Reason Comments Non-stress Test Routine Visit Encounter Details Date Type Department Care Team (Late st Contact Info) Description 12/08/2011 10:30 AM EDT Routine Obstetrics [place] [address] Marilyn Hosue MD [facility] DR OBSTETRICS & [place] [address] GA: 36w1d Discharge Disposition: Home Social History Tobacco Use [...] Sign Reading Time Taken Comments Blood Pressure 124/76 12/08/2011 10:20 AM EDT Pulse - - Temperature - - Respiratory Rate - - Oxygen Saturation - - Inhaled Oxygen Concentration - - Weight 125.9 kg (277 lb 9.6 oz) 012 10:20 AM EDT Height - - Body Mass Index 46.2 05/14/2011 9:46 AM EST documented in this encounter Progress Notes * Marilyn House MD - 12/08/2011 11:10 AM EDT Fasting 73-107 (only 1 elevated), 1hr pp 61-137. Insulin dose unchanged. US with amnio 12/18/2011, ERCS 12/21/2011 if mature. NST 130 accels 150, no decels. No PADILLA's, no vision changes, no epigastric pain. C/o swelling. Cont NST 2/week. F/u 1 week. * Leslye Perez LNA - 12/08/2011 10:53 AM EDT The patient was given two booklets; Going Home with Your [place] and Anesthesia Guidelines. A Laborinstructions term pamphlet, Group B Streptococcus Informational Sheet, and Circumcision Letter (if applicable) was also given. The patient received additional pamphlets entitled Position and Tips for Successful and [facility] Services. documented in this encounter Plan of Treatment Not on file documented as of this encounter Procedures Procedure Name Priority Date/Time Associated Diagnosis Comments GROUP B STREPTOCOCCUS SCREEN Routine 12/08/2011 10:39 AM EDT GROUP B STREP CULTURE SCREEN Routine 12/08/2011 10:39 AM EDT Unspecified high-risk documented in this encounter Results * GROUP B STREPTOCOCCUS SCREEN (12/08/2011 10:39 AM EDT) Group B Strep Screen Pos [facility] Pooled specimen from vaginal introitus and rectal swab (specimen) 12/08/2011 10:39 AM EDT 12/08/2011 3:04 PM EDT Comment:PENICILLIN ALLERGY?- >NO Narrative Resulting Agency Comment Spec In Lab Marilyn House MD MICROBIOLOGY - GEN ERAL ORDERABLES [facility] * Group B Strep Culture Screen (12/08/2011 10:39 AM EDT) Group B Streptococcus Culture ? Patient Name: MIGDALIA MOREIRA ? Ordered By: MARILYN HOUSE ? MR#: [id number] ?LOC: ??5L ? /Sex: ??1980 (31 years), ? Female ? PROCEDURE: Group B Streptococcus Culture ?SOURCE: Vag/Rectal ? COLLECTED: 12/08/2011 10:39 ?FREE TEXT SOURCE: Penicillin Allergy?->No ? STARTED: 12/08/2011 15:04 ? FINAL REPORT ? Final Report ? Verified: 012 10:33 ? Beta Hemolytic Streptococci, Group B isolated ? [facility]ERNER MILLENNIUM Pooled specimen from vaginal introitus and rectal swab (specimen) 12/08/2011 10:39 AM EDT 12/08/2011 3:04 PM EDT Comment:PENICILLIN ALLERGY?- >NO Narrative Resulting Agency Comment Spec In Lab Marilyn House MD MICROBIOLOGY - GEN ERAL ORDERABLES [facility] documented in this encounter Visit Diagnoses Diagnosis Unspecified high-risk documented in this encounter Care Teams Referral Nurse Relationship Specialty Start Date End Date Dav Carlos MD PCP - General 10/01/10 11/30/12 documented as of this encounter
--- OUTSIDE RECORDS SUMMARY | 2023-10-28 21:40 | XMS_ITS | Encounter Summary ---
Author Organization [facility] [place] [address] Care Team Providers Care Installation Technician Name Role Phone Dav Carlos MD Primary Care Provider [phone] Reason for Visit * Reason Comments Routine Visit Encounter Details Date Type Department Care Team ([facility] st Contact Info) Description 07/16/2011 11:00 AM EDT Routine Obstetrics [place] [address] Marilyn Reilly MD [facility] DR OBSTETRICS [place] [address] GA: 15w3d Discharge Disposition: Home Social History Tobacco Use [...] Reading Time Taken Comments Blood Pressure 124/76 07/16/2011 11:12 AM EDT Pulse - - Temperature - - Respiratory Rate - - Oxygen Saturation - - Inhaled Oxygen Concentration - - Weight 117.7 kg (259 lb 8 oz) 07/16/2011 11:12 A M EDT Height - - Body Mass Index 43.18 05/14/2011 9:46 AM EST documented in this encounter Progress Notes * Marilyn Reilly MD - 07/16/2011 11:39 AM EDT Insulin NPH 22u at HS, NPH 18u at am. Novalog 10u am and dinner. Fasting 69-104. Only 2 values elevated. Has had PADILLA and thinks this may have elevated the glucose. No changes in insulin. Feeling well.US morphology 18-20 weeks. Echo at 20-22 weeks. documented in this encounter Plan of Treatment Not on file documented as of this encounter Procedures Procedure Name Priority Date/Time Associated Diagnosis Comments U24 HRS AND VOLUME Routine 07/15/2011 7: 45 AM EDT PROTEIN, URINE, 24 HOUR Routine 07/15/2011 7:45 AM EDT Diabetes in documented in this encounter Results * U24 HRS AND VOLUME (07/15/2011 7:45 AM EDT) Hours Collected 24 hour(s) CERNER MILLENNIUM Urine TV (ml) 3030 mL CERNER MILLENNIUM Urine specimen (specimen) 07/15/2011 7:45 AM EDT 07/16/2011 2:32 PM EDT Narrative Resulting Agency Comment Spec In Lab Marilyn Reilly MD CHEMISTRY ORDERABL ES ANA [employer] * (ABNORMAL) Protein, urine, 24 hour (07/15/2011 7:45 AM EDT) U24 Prot Conc <6 <=80 mg/dL CERNE R MILLENNIUM U24 Prot Calc <0.18(H) <=0.15 gm/24hr CERNER MILLENNIUM Urine specimen (specimen) 07/15/2011 7:45 AM EDT 07/16/2011 2:32 PM EDT Narrative Resulting Agency Comment Spec In Lab Marilyn Reilly MD URINE ORDERABLES ANA GILMAN documented in this encounter Visit Diagnoses Diagnosis Diabetes mellitus- Primary Type II or unspecified type diabetes mellitus without mention of complication, not stated as uncontrolled Diabetes in 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
--- OUTSIDE RECORDS SUMMARY | 2023-10-28 21:40 | XMS_ITS | Encounter Summary ---
Author Organization [facility] [place] [address] Care Team Providers Care Tunnel Mucker Name Role Phone Dav Carlos MD Primary Care Provider [phone] Reason for Visit * Reason Comments Routine Visit Encounter Details Date Type Department Care Team (Latest Contact Info) Description 08/27/2011 11:00 AM EDT Routine Obstetrics [place] [address] Lisette Elise MD [facility] DR OBSTETRICS & [place] [address] GA: 21w3d Discharge Disposition: Home Social History Tobacco Use [...] Sign Reading Time Taken Comments Blood Pressure 124/74 08/27/2011 11:04 AM EDT Pulse - - Temperature - - Respiratory Rate - - Oxygen Saturation - - Inhaled Oxygen Concentration - - Weight 118.3 kg (260 lb 14.4 oz) 2011 11:04 AM EDT Height - - Body Mass Index 43.42 05/14/2011 9:46 AM EST documented in this encounter Progress Notes * Lisette Elise MD - 08/27/2011 11:23 AM EDT Excellent glycemic control. Rare elevation. Is having restless leg symptoms. Wearing braces at night for carpel tunnel syndrome. No OB complaints. RTC 4 weeks. documented in this encounter Plan of Treatment Not on file documented as of this encounter Visit Diagnoses Diagnosis BMI 43 Obesity complicating , childbirth, or the puerperium, unspecified as to episode of care or not applicable Supervision of high-risk Unspecified high-risk GERD (gastroesophageal reflux disease) Esophageal reflux documented in this encounter Care Teams Tunnel Mucker Relationship Specialty Start Date End Date Dav Carlos MD PCP - General 10/01/10 11/30/12 documented as of this encounter
--- OUTSIDE RECORDS SUMMARY | 2023-10-28 21:40 | XMS_ITS | Encounter Summary ---
Author Organization [facility] [place] [address] Care Team Providers Care Accountant Auditor Name Role Phone Dav Carlos MD Primary Care Provider [phone] Reason for Visit * Reason Comments Routine Visit Encounter Details Date Type Department Care Team ([facility] st Contact Info) Description 11/24/2011 11:15 AM EDT Routine Obstetrics [place] [id number] CLINIC, Marilyn Benites MD [facility] OBSTETRICS & [place] [address] GA: 34w1d Discharge Disposition: Home Social History Tobacco Use [...] Sign Reading Time Taken Comments Blood Pressure 132/82 11/24/2011 11:05 AM EDT Pulse - - Temperature - - Respiratory Rate - - Oxygen Saturation - - Inhaled Oxygen Concentration - - Weight 122.2 kg (269 lb 8 oz) 11/24/2011 11:05 A M EDT Height - - Body Mass Index 44.85 05/14/2011 9:46 AM EST documented in this encounter Progress Notes * Marilyn House MD - 11/24/2011 11:50 AM EDT US EFW 6# 9oz >95%ile. CAMILO 22cm. Insulin 10u humalog and 18u NPH am , dinner 10u humalog, bedtime 34u NPH. Fasting 79-95, pp all normal. NST 130 reactive, no decel. Discussed possible amniocentesis at 37-38 weeks. Will repeat US at 37-38 weeks for EFW. Discussed prior CS for deep transverse arrest with 6# 9 oz baby after 2.5 hour 2nd stage and that this baby is already 6# 9oz making successful less likely especially in setting of IOL. Predicted chance of successful ~ 29%. documented in this encounter Plan of Treatment Not on file documented as of this encounter Results * US OB follow up evaluation (12/18/2011 9:26 AM EDT) Anatomical Region Laterality Modality Pelvis, Abdomen Ultrasound 12/18/2011 9:26 AM EDT Narrative 12/18/2011 11:16 AM EDT ? OBSTETRICS REPORT ? (Signed Final 12/18/2011 11:15 am) Patient Info ID: ?[id number] ?: ??[birth year] (31 yrs) Name: ?MIGDALIA MOREIRA ?Visit Date: 12/18/2011 08:57 am Performed By Performed By: ?Melissa Villareal RDMS Attending: ? Arik PENALOZA, E ??Valerie Referred By: ? MARILYN HOUSE MD Service(s) Provided UOBFOL - Efw - Growth - Reevaluation - Bermudez ?[id number] - [phone] Indications Reason for exam and clinical history: growth Evaluation Num Of Fetuses: ?1 Heart Rate: ??142 ? bpm Cardiac Activity: ??Observed, normal rhythm Presentation: ?Cephalic Placenta: ?Anterior P. Cord ?Within Normal Limits Insertion: Amniotic Fluid CAMILO FV: ?Polyhydramnios CAMILO Sum: ? 27.19 ?? cm ? Larg Pckt: ?? 8.23 ?? cm RUQ: ?? 6.56 ?? cm ? LUQ: ?? 7.26 ?? cm RLQ: ?? 8.23 ?? cm ? LLQ: ?? 5.14 ?? cm -------- Biometry -------- BPD: ?97.1 ??mm ?G. Age: ?? 39w 5d ? > 97 ??% OFD: ? 117.1 ??mm HC: ?340.3 ??mm ?G. Age: ?? 39w 1d ? 66 ??% AC: ?360.2 ??mm ?G. Age: ?? 39w 6d ? > 97 ??% FL: ? 75 ??mm ?G. Age: ?? 38w 3d ? 70 ??% HUM: ?70.6 ??mm ?G. Age: ?? N/A ?> 95 ??% CI: ?82.9 ??% ? 70 - 86 FL/HC: ? 22.0 ??% ? 20.9 - 22.7 HC/AC: ? 0.94 ?0.92 - 1.05 FL/BPD: ?77.2 ??% ? 71 - 87 FL/AC: ? 20.8 ??% ? 20 - 24 Est. FW: ?3804 ??gm ?8 lb 6 oz ? 94 ??% Gestational Age LMP: ? 38w 6d ?Date: ??03/21/11 ? ODETTE: ?? 12/26/11 U/S Today: ? 39w 2d ?ODETTE: ?? 12/23/11 Best: ?37w 4d ?? Det. By: ??U/S C R L ?ODETTE: ?? 01/04/12 ? (05/29/11) ------- Anatomy ------- Cranium: ? Not visualized due to late gestational age Cavum: ? Not visualized due to late gestational age Ventricles: ?Not visualized due to late gestational age Choroid Plexus: ?Not visualized due to late gestational age Cerebellum: ?Not visualized due to late gestational age Posterior Fossa: ?? Not visualized due to late gestational age Nuchal Fold: ? Not evaluated at this gestational age. Face: ?Limite due to maternal body habitus Heart: ? Not visualized due to late gestational age RVOT: ?Not visualized due to late gestational age LVOT: ?Not visualized due to late gestational age Diaphragm: ? Visualized Stomach: ? Visualized Abdomen: ? Within Normal Limits Abdominal Wall: ?Not visualized due to late gestational age Cord Vessels: ?Not visualized due to late gestational age Kidneys: ? Visualized Bladder: ? Visualized Spine: ? Limited views Cervix Uterus Adnexa Left Ovary: ?? Not visualized Right Ovary: ??Not visualized Impression 3rd Trimester Summary Single intrauterine with a gestational age of 37w 4d based on CRL. Composite age based on the current ultrasound alone is 39w 2d. Estimated weight corresponds to the 94th percentile for 37w 4d. LGA fetus. Amniotic fluid volume is Polyhydramnios, CAMILO = 27.19 cm. Anatomical survey is limited due to the late gestational age, however no structural abnormalities are noted. I ??viewed the images and agree with the above interpretation. Thank you for allowing us to participate in the care of MIGDALIA MOREIRA. Please do not hesitate to call if you have any questions. ? Lisette Elise MD Electronically Signed Final Report ?? 12/18/2011 11:15 am Procedure Note Lisette Elise MD - 12/18/2011 OBSTETRICS REPORT (Signed Final 12/18/2011 11:15 am) Patient Info ID: [id number] : [birth year] (31 yrs) Name: MIGDALIA MOREIRA Visit Date: 12/18/2011 08:57 am Performed By Performed By: Melissa Villareal [facility] Attending: Lisette Elise MD Referred By: MARILYN HOUSE MD Service(s) Provided UOBFO - [facility] - Growth - Reevaluation - [place] [id number] - [id number] Indications Reason for exam and clinical history: growth Evaluation Num Of Fetuses: 1 Heart Rate: 142 bpm Cardiac Activity: Observed, normal rhythm Presentation: Cephalic Placenta: Anterior P. Cord Within Normal Limits Insertion: Amniotic Fluid CAMILO FV: Polyhydramnios CAMILO Sum: 27.19 cm Larg Pckt: 8.23 cm RUQ: 6.56 cm LUQ: 7.26 cm RLQ: 8.23 cm LLQ: 5.14 cm -------- Biometry -------- BPD: 97.1 mm G. Age: 39w 5d > 97 % OFD: 117.1 mm HC: 340.3 mm G. Age: 39w 1d 66 % AC: 360.2 mm G. Age: 39w 6d > 97 % FL: 75 mm G. Age: 38w 3d 70 % HUM: 70.6 mm G. Age: N/A > 95 % CI: 82.9 % 70 - 86 FL/HC: 22.0 % 20.9 - 22.7 HC/AC: 0.94 0.92 - 1.05 FL/BPD: 77.2 % 71 - 87 FL/AC: 20.8 % 20 - 24 Est. FW: 3804 gm 8 lb 6 oz 94 % Gestational Age LMP: 38w 6d Date: 03/21/11 ODETTE: 12/26/11 U/S Today: 39w 2d ODETTE: 12/23/11 Best: 37w 4d Det. By: U/S C R L ODETTE: [...] Visualized Abdomen: Within Normal Limits Abdominal Wall: Not visualized due to late gestational age Cord Vessels: Not visualized due to late gestational age Kidneys: Visualized Bladder: Visualized Spine: Limited views Cervix Uterus Adnexa Left Ovary: Not visualized Right Ovary: Not visualized Impression 3rd Trimester Summary Single intrauterine with a gestational age of 37w 4d based on CRL. Composite age based on the current ultrasound alone is 39w 2d. Estimated weight corresponds to the 94th percentile for 37w 4d. LGA fetus. Amniotic fluid volume is Polyhydramnios, CAMILO = 27.19 cm. Anatomical survey is limited due to the late gestational age, however no structural abnormalities are noted. I viewed the images and agree with the above interpretation. Thank you for allowing us to participate in the care of MIGDALIA MOREIRA. Please do not hesitate to call if you have any questions. Lisette Elise MD Electronically Signed Final Report 12/18/2011 11:15 am Marilyn House MD IMG US OB ORDERABL ES documented in this encounter Visit Diagnoses Diagnosis Unspecified high-risk - Primary Unspecified high-risk documented in this encounter Care Teams Accountant Auditor Relationship Specialty Start Date End Date Dav Carlos MD PCP - General 10/01/10 11/30/12 documented as of this encounter
--- OUTSIDE RECORDS SUMMARY | 2023-10-28 21:40 | XMS_ITS | Encounter Summary ---
Author Organization [facility] [place] [address] Care Team Providers Care Horse Exerciser Name Role Phone Dav Carlos MD Primary Care Provider [phone] Reason for Visit * Reason Comments Routine Visit Encounter Details Date Type Department Care Team ([facility] st Contact Info) Description 07/02/2011 8:45 AM EDT Routine Obstetrics [place] [address] Marilyn Reilly MD [facility] DR OBSTETRICS & [place] [address] GA: 13w3d Discharge Disposition: Home Social History Tobacco Use [...] Sign Reading Time Taken Comments Blood Pressure 120/80 07/02/2011 8:50 AM EDT Pulse - - Temperature - - Respiratory Rate - - Oxygen Saturation - - Inhaled Oxygen Concentration - - Weight 116.7 kg (257 lb 3.2 oz) 07/02/2011 8:50 AM EDT Height - - Body Mass Index 42.8 05/14/2011 9:46 AM EST documented in this encounter Progress Notes * Marilyn Reilly MD - 07/02/2011 9:10 AM EDT NPH NPH 18u 10 humalog am, dinner 10 humalog, HS 20u NPH. Fasting 76-103, 1hr pp 83-145. Thinsk herelevated fasting are due to not sleeping well. Advised to check for 2 more days and if elevated > 90 she can increase her NPH at HS to 22u. 24 hr urine baseline morphlogy us and echo ordered. F/u 2 weeks. * Reema Bedoya LPN - 07/02/2011 8:54 AM EDT Skin to Skin Contact and an Early Start to pamphlet given to patient along with the Depression and Nutrition Screens. documented in this encounter Miscellaneous Notes * Miscellaneous - Bradley, Waste Hand - 07/06/2011 11:55 AM EDT documented in this encounter Plan of Treatment Scheduled Orders Name Type Priority Associated Diagnoses Orde r Schedule Protein, urine, 24 hour Lab Routine Unspecified high-risk Expected: 07/16/2011 (Approximate), Expires: 07/01/2012 documented as of this encounter Results * Echocardiogram (08/27/2011 11:10 AM EDT) Anatomical Region Laterality Modality Other 08/28/2011 Narrative 08/28/2011 7:54 AM EDT Procedure: ? Pediatric Echocardiogram Patient: ? HARISH NEGRON L ?(Age): 1980(31) Med Rec#: ?[id number] ? Sex: ?F ? Site Loc: [place] ? Ht / Wt: ??(cm)/(kg) ? Pt. Loc: ? Echo Lab ? BSA: ? Study Date: ?08/27/2011 ? Pt. Type: Outpatient Study Quality: ?Tape: ? Referring: Grover Elise Casing Finisher And Stuffer: Yosef Frankel Diagnosis:CPT Code(s): ?? Echo Full (07360), ?? Doppler Full (25603), ??Color Doppler (87435), Indication(s): ??Maternal diabetes Rhythm: SUMMARY: 1. A [...] 08/28/2011 07:53:22 Images reviewed and interpretation verified [facility] Cardiac Ultrasound Laboratory Procedure Note Percy Morales MD - 08/28/2011 Procedure: Pediatric Echocardiogram Patient: HARISH Xiao (Age): 1980(31) Med Rec#: [id number] Sex: F Site Loc: [facility] [place] Ht / Wt: (cm)/(kg) Pt. Loc: Echo Lab BSA: Study Date: 08/27/2011 Pt. Type: Outpatient Study Quality: Tape: Referring: Grover Elise Casing Finisher And Stuffer: Yosef Frankel Diagnosis:CPT Code(s): Echo Full (03381), Doppler Full (84569), Color Doppler (84143), Indication(s): Maternal diabetes Rhythm: SUMMARY: 1. A [...] 08/28/2011 07:53:22 Images reviewed and interpretation verified [facility] Cardiac Ultrasound Laboratory Marilyn Reilly MD ECHO ORDERABLES documented in this encounter Visit Diagnoses Diagnosis Unspecified high-risk - Primary Diabetes mellitus Type II or unspecified type diabetes mellitus without mention of complication, not stated as uncontrolled Unspecified high-risk documented in this encounter Care Teams Horse Exerciser Relationship Specialty Start Date End Date Dav Carlos MD PCP - General 10/01/10 11/30/12 documented as of this encounter
--- OUTSIDE RECORDS SUMMARY | 2023-10-28 21:40 | XMS_ITS | Encounter Summary ---
Author Organization [facility] [place] [address] Care Team Providers Care Lodge Attendant Name Role Phone Dav Carlos MD Primary Care Provider [phone] Encounter Details Date Type Department Care Team (Latest Contact Info) Description 10/13/2011 10:25 AM EDT - 10/13/2011 11:59 PM EDT Hospital Encounter Ultrasound at [facility] [place] [address] Supervision of high-risk ; Diabetes mellitus Social History Tobacco Use Types Packs/Day Years [...] (with meals). 60 tablet 1 12/21/2011 01/30/2013 omeprazole (PRILOSEC) 20 mg capsule Take 20 [...] Diagnosis Comments US OB FOLLOW UP Routine 10/13/2011 11:35 AM EDT Supervision of high-risk Diabetes mellitus documented in this encounter Results * US OB follow up evaluation (10/13/2011 11:35 AM EDT) Anatomical Region Laterality Modality Pelvis, Abdomen Ultrasound 10/13/2011 11:3 5 AM EDT Narrative 10/14/2011 8:29 AM EDT ?OBSTETRICS REPORT ? (Signed Final 10/13/2011 11:40 am) Patient Info ID: ? [id number] ? : ??[birth year] (31 yrs) Name: ? MIGDALIA MOREIRA ? Visit Date: 10/13/2011 11:28 am Performed By Performed By: ?[facility] Attending: ? Arik PENALOZA, Lisette ??Valerie Referred By: ? JULIEN ELIZABETH MD Service(s) Provided UOBFOL - Efw - Growth - Reevaluation - [place]ermudez ?[id number] - [phone] Indications Efw, Growth IDDM; Evaluation Num Of Fetuses: ?1 Heart Rate: ??158 ?bpm Cardiac Activity: ??Observed, normal rhythm Presentation: ?Cephalic Placenta: ?Anterior P. Cord ?Within Normal Limits Insertion: Amniotic Fluid CAMILO FV: ?Polyhydramnios CAMILO Sum: ? 21.02 ?? cm ? Larg Pckt: ?9.04 ??cm RUQ: ?? 9.04 ?cm ?LUQ: ?? 3.91 ?? cm RLQ: ?? 5.54 ?cm ?LLQ: ?? 2.53 ?? cm -------- Biometry -------- BPD: ?76.1 ??mm ?G. Age: ?? 30w 4d ? 95 ??% OFD: ?96.9 ??mm HC: ?275.3 ??mm ?G. Age: ?? 30w 0d ? 78 ??% AC: ?260.3 ??mm ?G. Age: ?? 30w 1d ? 92 ??% FL: ? 54.6 ??mm ?G. Age: ?? 28w 6d ? 56 ??% HUM: ?51.4 ??mm ?G. Age: ?? 30w 0d ? 85 ??% CI: ?78.5 ??% ? 70 - 86 FL/HC: ? 19.8 ??% ? 18.8 - 20.6 HC/AC: ? 1.06 ?1.05 - 1.21 FL/BPD: ?71.7 ??% ? 71 - 87 FL/AC: ? 21.0 ??% ? 20 - 24 Est. FW: ?1451 ?? gm ? 3 lb 3 oz ? 95 ??% Gestational Age LMP: ? 29w 3d ?Date: ??03/21/11 ? ODETTE: ?? 12/26/11 U/S Today: ? 29w 6d ?ODETTE: ?? 12/23/11 Best: ?28w 1d ?? Det. By: ??U/S C R L ?ODETTE: ?? 01/04/12 ? (05/29/11) ------- Anatomy ------- Cranium: ?Limited Views Cavum: ?Visualized Ventricles: ? Not visualized due to late gestational age Choroid Plexus: ? Not visualized due to late gestational age Cerebellum: ? Not visualized due to late gestational age Posterior Fossa: ?Not visualized due to late gestational age Nuchal Fold: ?Not evaluated at this gestational age Face: ? Nose/ Lips seen - WNL Heart: ?Limited Views Stomach: ?Visualized Abdomen: ?Limited Views Abdominal Wall: ? Not visualized due to late gestational age Cord Vessels: ? 3-vessels- WNL Kidneys: ?Visualized Bladder: ?Visualized Spine: ?Limited views Lower ? Limited views Extremities: Upper ? Limited views Extremities: Cervix Uterus Adnexa Left Ovary: ?Not visualized Right Ovary: ?? Not visualized -------- Comments -------- Visualization limited due to maternal body habitus. Impression 3rd Trimester Summary Single intrauterine with a gestational age of 28w 1d based on CRL. Composite age based on the current ultrasound alone is 29w 6d. Estimated weight corresponds to the 95th percentile for 28w 1d. Amniotic fluid volume is mildy increased, consistent with hydramnios, CAMILO = 21.02 cm.Anatomical survey is limited due to the late gestational age, however no structural abnormalities are noted. Visualization is limited due to increased maternal body habitus. I ??viewed the images and agree with the above interpretation. Thank you for allowing us to participate in the care of MIGDALIA MOREIRA. Please do not hesitate to call if you have any questions. ? Lisette Elise MD Electronically Signed Final Report ?? 10/13/2011 11:40 am Procedure Note Lisette Elise MD - 10/14/2011 OBSTETRICS REPORT (Signed Final 10/13/2011 11:40 am) Patient Info ID: [id number] : [birth year] (31 yrs) Name: MIGDALIA MOREIRA Visit Date: 10/13/2011 11:28 am Performed By Performed By: N[facility] Attending: Lisette Elise MD Referred By: JULIEN ELIZABETH MD Service(s) Provided UOBFOL - Efw - Growth - Reevaluation - [place] [id number] - [id number] Indications Efw, Growth IDDM; Evaluation Num Of Fetuses: 1 Heart Rate: 158 bpm Cardiac Activity: Observed, normal rhythm Presentation: Cephalic Placenta: Anterior P. Cord Within Normal Limits Insertion: Amniotic Fluid CAMILO FV: Polyhydramnios CAMILO Sum: 21.02 cm Larg Pckt: 9.04 cm RUQ: 9.04 cm LUQ: 3.91 cm RLQ: 5.54 cm LLQ: 2.53 cm -------- Biometry -------- BPD: 76.1 mm G. Age: 30w 4d 95 % OFD: 96.9 mm HC: 275.3 mm G. Age: 30w 0d 78 % AC: 260.3 mm G. Age: 30w 1d 92 % FL: 54.6 mm G. Age: 28w 6d 56 % HUM: 51.4 mm G. Age: 30w 0d 85 % CI: 78.5 % 70 - 86 FL/HC: 19.8 % 18.8 - 20.6 HC/AC: 1.06 1.05 - 1.21 FL/BPD: 71.7 % 71 - 87 FL/AC: 21.0 % 20 - 24 Est. FW: 1451 gm 3 lb 3 oz 95 % Gestational Age LMP: 29w 3d Date: 03/21/11 ODETTE: 12/26/11 U/S Today: 29w 6d ODETTE: 12/23/11 Best: 28w 1d Det. By: U/S Donnell Xiao ODETTE: 01/04/12 (05/29/11) ------- Anatomy ------- Cranium: Limited Views Cavum: Visualized Ventricles: Not visualized due to late gestational age Choroid Plexus: Not visualized due to late gestational age Cerebellum: Not visualized due to late gestational age Posterior Fossa: Not visualized due to late gestational age Nuchal Fold: Not evaluated at this gestational age Face: Nose/ Lips seen - WNL Heart: Limited Views Stomach: Visualized Abdomen: Limited Views Abdominal Wall: Not visualized due to late gestational age Cord Vessels: 3-vessels- WNL Kidneys: Visualized Bladder: Visualized Spine: Limited views Lower Limited views Extremities: Upper Limited views Extremities: Cervix Uterus Adnexa Left Ovary: Not visualized Right Ovary: Not visualized -------- Comments -------- Visualization limited due to maternal body habitus. Impression 3rd Trimester Summary Single intrauterine with a gestational age of 28w 1d based on CRL. Composite age based on the current ultrasound alone is 29w 6d. Estimated weight corresponds to the 95th percentile for 28w 1d. Amniotic fluid volume is mildy increased, consistent with hydramnios, CAMILO = 21.02 cm.Anatomical survey is limited due to the late gestational age, however no structural abnormalities are noted. Visualization is limited due to increased maternal body habitus. I viewed the images and agree with the above interpretation. Thank you for allowing us to participate in the care of MIGDALIA MOREIRA. Please do not hesitate to call if you have any questions. Lisette Elise MD Electronically Signed Final Report 10/13/2011 11:40 am Julien Elizabeth MD IMG OB ORDERABLES documented in this encounter Visit Diagnoses Diagnosis Supervision of high-risk Unspecified high-risk Diabetes mellitus Type II or unspecified type diabetes mellitus without mention of complication, not stated as uncontrolled documented in this encounter Care Teams Lodge Attendant Relationship Specialty Start Date End Date Dav Carlos MD PCP - General 10/01/10 11/30/12 documented as of this encounter
--- OUTSIDE RECORDS SUMMARY | 2023-10-28 21:40 | XMS_ITS | Encounter Summary ---
Author Organization [facility] [place] [address] Care Team Providers Care Jewelry Bench Worker Name Role Phone Dav Carlos MD Primary Care Provider [phone] Reason for Visit * Reason Comments Routine Visit Encounter Details Date Type Department Care Team (Latest Contact Info) Description 09/29/2011 2:45 PM EDT Routine Obstetrics [place] [address] Julien Elizabeth MD [facility] [address] OBSTETRICS & [place] [address] GA: 26w1d Discharge Disposition: Home Social History Tobacco Use [...] Sign Reading Time Taken Comments Blood Pressure 128/78 09/29/2011 2:48 PM EDT Pulse - - Temperature - - Respiratory Rate - - Oxygen Saturation - - Inhaled Oxygen Concentration - - Weight 118.3 kg (260 lb 12.8 oz) 09/29/2011 2:48 PM EDT Height - - Body Mass Index 43.4 05/14/2011 9:46 AM EST documented in this encounter Patient Instructions * Patient Instructions* Julien Elizabeth MD - 09/29/2011 3:08 PM EDT Welcome to [employer], your secure online access to your electronic medical record at [facility]. Using [employer] you will be able to send messages to your providers, view your test results, renew prescriptions, schedule appointments, and much more. Follow these instructions to enter your personal [employer] account for the first time: 1. Start your internet browser and type [email or web address] into the address bar. 2. In the New User box on the right-hand side of the Welcome page click the link that states, ???I have an activation code.?? 3. On the Identification page, follow these steps: a) Enter your [employer] activation code: [email or web address] b) Expires: 11/13/11 03:08 PM IMPORTANT: This Activation Code will on the above mentioned date. If you do not sign up for [employer] by this date, you will need to request another activation code. c) Enter your date of , using the calendar tool provided. d) Enter your Zip code. e) Select ???submit?? to go to the next page. 4. On the Create Account page, follow these steps: a) Create a [employer] username. This can???t be changed, so choose one you won???t forget. b) Create a password that???s at least six characters long, and that contains at least two numbers.Your password can be changed at any time. Confirm your password by entering it once more. c) Enter your email address. This will be used to alert you to new information. Confirm your email address by entering it once more. d) Enter your security question. This will be used if you forget your password. e) Enter your security answer. Confirm your security answer by entering it once more. f) Select ???submit?? to view your electronic medical record. If you have any questions about [employer] or your Access Code, please call for [place], for [place] or for Drums. If you need technical support, please e-mail . Remember, [facility] is NOT for urgent needs! Always dial 911 for medical emergencies. documented in this encounter Progress Notes * Julien Elizabeth MD - 09/29/2011 3:05 PM EDT Occasional cramping in the lower abdomen and back. Having 2-3 per day. Diabetes mellitus - JULIEN ELIZABETH MD 09/29/11 03:04 PM Signed FSBS are mostly within range. No change sto insulin needed. GERD (gastroesophageal reflux disease) - JULIEN ELIZABETH MD 09/29/11 03:04 PM Signed Switched from prilosec to zantac documented in this encounter Miscellaneous Notes * Assessment & Plan Note - Julien Elizabeth MD - 09/29/2011 3:04 PM EDT Associated Problem(s): GERD (gastroesophageal reflux disease) Switched from prilosec to zantac * Assessment & Plan Note - Julien Elizabeth MD - 09/29/2011 3:04 PM EDT Associated Problem(s): Diabetes mellitus FSBS are mostly within range. No change sto insulin needed. documented in this encounter Plan of Treatment Not on file documented as of this encounter Results * US OB follow up evaluation (10/13/2011 11:35 AM EDT) Anatomical Region Laterality Modality Pelvis, Abdomen Ultrasound 10/13/2011 11:3 5 AM EDT Narrative 10/14/2011 8:29 AM EDT ?OBSTETRICS REPORT ? (Signed Final 10/13/2011 11:40 am) Patient Info ID: ? [id number] ? : [birth year] (31 yrs) Name: ? MIGDALIA MOREIRA ? Visit Date: 10/13/2011 11:28 am Performed By Performed By: ?Neda Hernandez [facility] Attending: ? Arik PENALOZA, E ??Valerie Referred By: ? JULIEN ELIZABETH MD Service(s) Provided UOBFOL - Efw - Growth - Reevaluation - [place]z ?[id number] - [id number] Indications Efw, Growth IDDM; Evaluation Num Of [...] Final 10/13/2011 11:40 am) Patient Info ID: [id number] : [birth year] (31 yrs) Name: MIGDALIA MOREIRA Visit Date: 10/13/2011 11:28 am Performed By Performed By: Neda Hernandez [facility] Attending: Lisette Elise MD Referred By: JULIEN ELIZABETH MD Service(s) Provided UOBFOL - Efw - Growth - Reevaluation - [place] [id number] - [id number] Indications Efw, Growth IDDM; Evaluation Num Of [...] 12/23/11 Best: 28w 1d Det. By: U/S C R L [...] 10/13/2011 11:40 am Julien Elizabeth MD IMG US OB ORDERABLES documented in this encounter Visit Diagnoses Diagnosis BMI 43 Obesity complicating , childbirth, or the puerperium, unspecified as to episode of care or not applicable Supervision of high-risk Unspecified high-risk GERD (gastroesophageal reflux disease) Esophageal reflux Hypertension Unspecified essential hypertension Diabetes mellitus Type II or unspecified type diabetes mellitus without mention of complication, not stated as uncontrolled Previous section Other postprocedural status Supervision of high-risk Unspecified high-risk Diabetes mellitus Type II or unspecified type diabetes mellitus without mention of complication, not stated as uncontrolled documented in this encounter Care Teams Jewelry Bench Worker Relationship Specialty Start Date End Date Dav Carlos MD PCP - General 10/01/10 11/30/12 documented as of this encounter
--- OUTSIDE RECORDS SUMMARY | 2023-10-28 21:40 | XMS_ITS | Encounter Summary ---
Author Organization [facility] [place] [address] Care Team Providers Care Certified Substance Abuse Counselor Name Role Phone Dav Carlos MD Primary Care Provider [phone] Encounter Details Date Type Department Care Team (Latest Contact Info) Description 10/13/2011 11:00 AM EDT Routine Obstetrics [place] [id number] CLINIC, Lisette Aviles MD [facility] OBSTETRICS & [place] [address] GA: 28w1d Discharge Disposition: Home Social History Tobacco Use [...] Sign Reading Time Taken Comments Blood Pressure 148/80 10/13/2011 10:17 AM EDT Pulse - - Temperature - - Respiratory Rate - - Oxygen Saturation - - Inhaled Oxygen Concentration - - Weight - - Height - - Body Mass Index - - documented in this encounter Progress Notes * Lisette Elise MD - 10/13/2011 11:45 AM EDT Increased fasting FSBS, mostly due to dietary indiscretion, but also in the mid 90s even when eating well. WIll increase qhs NPH by 2units. Getting on 30 October; stressful time in life at the moment trying to get everything organized. Good movement. No contractions/ leaking fluid / bleeding / pain. No headache, vision changes, RUQ pain. Plan for repeat visit in 2 weeks. documented in this encounter Procedure Notes * Provider, Scanning - 10/28/2011 10:24 AM EDTAssociated Order(s): SCAN DOC: LAB documented in this encounter Plan of Treatment Not on file documented as of this encounter Procedures Procedure Name Priority Date/Time Associated Diagnosis Comments LAB SCAN 10/28/2011 10:24 AM EDT PREPARE RH IMMUNE GLOBULIN Routine 10/13/2011 12:00 AM EDT High-risk supervision documented in this encounter Results * SCAN DOC: LAB (10/28/2011 10:24 AM EDT) Narrative 10/28/2011 10:24 AM EDT Procedure Note Provider, Scanning - 10/28/2011 10:24 AM EDT Scanning Provider MEDIA MGR SCAN EXT O RDR/RSLT * Prepare Rh Immune Globulin (10/13/2011 12:00 AM EDT) Dispensed? Yes [facility] Blood specimen (specimen) 10/13/2011 10/13/2011 11:47 AM EDT Narrative Resulting Agency Comment Spec In Lab Lisette Elise MD BLOOD BANK PRODUC T ORDERABLES [facility] documented in this encounter Visit Diagnoses Diagnosis High-risk supervision- Primary Unspecified high-risk documented in this encounter Care Teams Certified Substance Abuse Counselor Relationship Specialty Start Date End Date Dav Carlos MD PCP - General 10/01/10 11/30/12 documented as of this encounter
--- OUTSIDE RECORDS SUMMARY | 2023-10-28 21:40 | XMS_ITS | Encounter Summary ---
Author Organization [facility] [place] [address] Care Team Providers Care Cashier And Waiter/Waitress Name Role Phone Dav Carlos MD Primary Care Provider [phone] Reason for Visit * Reason Comments Routine Visit Encounter Details Date Type Department Care Team ([facility] st Contact Info) Description 11/10/2011 9:00 AM EDT Routine Obstetrics [place] [address] Marilyn House MD [facility] OBSTETRICS & [place] [address] GA: 32w1d Discharge Disposition: Home Social History Tobacco Use [...] Sign Reading Time Taken Comments Blood Pressure 132/78 11/10/2011 9:08 AM EDT Pulse - - Temperature - - Respiratory Rate - - Oxygen Saturation - - Inhaled Oxygen Concentration - - Weight 120.7 kg (266 lb 1.6 oz) 11/10/2011 9:08 AM EDT Height - - Body Mass Index 44.28 05/14/2011 9:46 AM EST documented in this encounter Progress Notes * Marilyn House MD - 11/10/2011 10:35 AM EDT nst 140 reactive, no decels * Marilyn House MD - 11/10/2011 9:50 AM EDT FM felt, no LOF, no bleeding and no contractions. Insulin NPH 18u, 10u novalog am, dinner 10u novalog, 28u NPH at HS. Fasting 66-103, 1-2hr pp 70-143. Elevated fasting when she didn't have snack. Still on Ald[place]. Start NST 2x/ week. Dip urine protein. Needs f/u US for S>D. F/u 2 weeks. documented in this encounter Plan of Treatment Not on file documented as of this encounter Results * US OB follow up evaluation (11/24/2011 10:29 AM EDT) Anatomical Region Laterality Modality Pelvis, Abdomen Ultrasound 11/24/2011 10:2 9 AM EDT Narrative 11/24/2011 10:39 AM EDT ?OBSTETRICS REPORT ? (Signed Final 11/24/2011 10:38 am) Patient Info ID: ? [id number] ? : ??[birth year] (31 yrs) Name: ? MIGDALIA MOREIRA ? Visit Date: 11/24/2011 10:27 am Performed By Performed By: ?Melissa Villareal RDMS Attending: ? Gerardo PENALOZA, Crispin Bishop Referred By: ? MARILYN HOUSE MD Service(s) Provided UOBFOL - Efw - Growth - Reevaluation - [place] ?[id number] - [id number] Indications Efw, Growth Evaluation Num Of Fetuses: [...] Final 11/24/2011 10:38 am) Patient Info ID: [id number] : [birth year] (31 yrs) Name: MIGDALIA MOREIRA Visit Date: 11/24/2011 10:27 am Performed By Performed By: Melissa Villareal RDMS Attending: Crispni Carrillo MD Referred By: MARILYN HOUSE MD Service(s) Provided UOBFOL - Efw - Growth - Reevaluation - [place] [id number] - [phone] Indications Efw, Growth Evaluation Num Of Fetuses: [...] 12/18/11 Best: 34w 1d Det. By: U/S C R L [...] us to participate in the care of MIGDALIAChristian MOREIRA. Please do not hesitate to call if you have any questions. Marilyn House MD Electronically Signed Final Report 11/24/2011 10:38 am Marilyn House MD IMG US OB ORDERABL ES documented in this encounter Visit Diagnoses Diagnosis Unspecified high-risk - Primary Unspecified high-risk documented in this encounter Care Teams Cashier And Waiter/Waitress Relationship Specialty Start Date End Date Dav Carlos MD PCP - General 10/01/10 11/30/12 documented as of this encounter
--- OUTSIDE RECORDS SUMMARY | 2023-10-28 21:40 | XMS_ITS | Encounter Summary ---
Author Organization [facility] [place] [address] Care Team Providers Care Manager Of Operations Name Role Phone Dav Carlos MD Primary Care Provider [phone] Encounter Details Date Type Department Care Team (Late st Contact Info) Description 12/04/2011 3:45 PM EDT Routine Obstetrics and Gynecology at [facility] [place] [phone] CLINIC, Katelin Briones RN GA: 35w4d Discharge Disposition: Home Social History Tobacco Use [...] Sign Reading Time Taken Comments Blood Pressure 132/84 12/04/2011 4:06 PM EDT Pulse - - Temperature - - Respiratory Rate - - Oxygen Saturation - - Inhaled Oxygen Concentration - - Weight 124.6 kg (274 lb 9.6 oz) 12/04/2011 4:06 PM EDT Height - - Body Mass Index 45.7 05/14/2011 9:46 AM EST documented in this encounter Progress Notes * Alexandre Chandler MD - 12/04/2011 5:20 PM EDT I personally reviewed and interpreted this NST. * Katelin Stone RN - 12/04/2011 4:33 PM EDT NST for A2DM. Feels well, has good movement. No contractions, LOF or bleeding. Blood sugars reviewed at last visit and have been within target range since then. Denies headaches or blurry vision. Accelerations present. NST reviewed by Dr. Chandler. documented in this encounter Plan of Treatment Not on file documented as of this encounter Visit Diagnoses Diagnosis Supervision of high-risk Unspecified high-risk Previous section Other postprocedural status Diabetes mellitus Type II or unspecified type diabetes mellitus without mention of complication, not stated as uncontrolled documented in this encounter Care Teams Manager Of Operations Relationship Specialty Start Date End Date Dav Carlos MD PCP - General 10/01/10 11/30/12 documented as of this encounter
--- OUTSIDE RECORDS SUMMARY | 2023-10-28 21:40 | XMS_ITS | Encounter Summary ---
Author Organization [facility] [place] [address] Care Team Providers Care Billet Grinder Name Role Phone Dav Carlos MD Primary Care Provider [phone] Encounter Details Date Type Department Care Team (Latest Contact Info) Description 12/18/2011 9:40 AM EDT - 12/21/2011 11:53 AM EDT Hospital [place] [address] Amina Mock MD [facility] [address] OBSTETRICS & [place] [address] Pam Prasad MD [facility] OBSTETRICS & [place] [address] Diabetes mellitus; Supervision of high-risk Discharge Disposition: Home Social History Tobacco [...] engorgement is relieved. Call your doctor or ink jet operator for: Fever more than 100.5 Heavy bleeding [...] follow up appointment. You may call the [facility] at any time for guidance or for answers to questions that come up prior to you follow up appointment. Your [facility] Provider can be reached during office hours at [facility] Follow-up Clinic AFTER OFFICE HOURS for the school cleaner or ink jet operator supervisor electronics testing Provider electronic signature confirms that discharge instructions were reviewed with the patient. A copy was printed and given to the patient. * Patient Instructions* Radha Mathews MD - 12/21/2011 10:36 AM EDT Follow up appointments and recommendations: If not made at the time of discharge, please call your primary OB provider for a follow up appointment. ([phone]) Patient Discharge Instructions: For problems or concerns related to this hospitalization call: [phone] weekdays, or [phone] weekends or nights. Call your doctor if [...] next 2 weeks. Wound Care: You have derik in place at the site of your section. Please keep the incision clean and dry. Showering is ok. Please come to the clinic in 2-3 days to have your derik removed. Pain medications include Ibuprofen and percocet [...] U-100 (INSULIN SYRINGE) 1/2 mL 30 x 16 SyrgIndications:Diab etes mellitus complicating , antepartum by [...] and 6 yr old daughter Barbara. Where: [place] Approx time in community: Years Social Resources: Intact couple. Both employed. 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 Have [employer] Blue insurance through he employer and [place] secondary. Have local family support. Extended family in area for support: Yes Cognitive Resources: Intact Childbirth Education: Yes/No Educational level: High School + Functional Status: Ambulatory, Independent, Without limitations. C/S recovery with limitations on lifting/driving x 2 weeks. Complications requiring follow-up: Financial Resources: Adequate. No concerns expressed Health Insurance Coverage: [facility] [employer] plus [place] Medicaid. Baby will be placed on Dr Kamara Horizontal Resaw Operator Chosen: Dr Dav Carlos; [facility] Baby's Name: Baby Sindy Garcia Anticipated Continuing Care Needs: Physical: Recovery from . Initiation of . Emotional: Adjustment to period Psychological: Known hx of anxiety/depression. At risk for PPD. Referred to social insurance adviser for assessment and support while inpatient. Educational: Parenting Continuing Care Plan Development: At home resources/Discharge supports suggested. Printed materials and suggested community resourcesprovided to patient: Visiting Nurse visits: Offered services of [facility] post discharge. Patient declined [facility] ([facility]) 4th Trimester New mom support/[facility]: Referral to [facility]: [facility] [place] DME ordered : None Breast Pump: N/A Other: Have car seat, transportation, and adequate family support. No direct referrals made at this time. . CRC: Roxanne LEE/ Keny Strong. Beeper [id number] * Amina Mock MD - 12/21/2011 6:57 [...] labs Rh negative Rubella non-immune GBS positive nutrition Plan: Continue routine care: encourage ambulation, [...] at term doing well. Plan: Discharge today [place] out in several days Amina Mock MD [...] Received magnesium for 24 hours . Rh- (infant is Rh-)/ rubella non-immune Patient is doing [...] 20 pounds piror to this adn only [id number] with the . I encouraged her to [...] Significant Labs : Recent Labs Basename 12/19/11 0610 12/18/11 1030 [...] rounds. LAWRENCE GUO MD PGY1 12/19/2011 Pager #[phone] Attending post - section note ALEXANDRE ELIZABETH [...] assisted to left lateral tilt. EFM placed, GHO=542. MDs aware. To proceed with scheduled repeat [...] 1998 Comments: early no D&C 3 PRE 2005 36w0d 2.977kg(6lb9oz) F LTCS Yes 4 CUR [...] 1/2 mL 30 x 5/16 Syrg by [facility].(Non-Drug; Combo Route) route. Taking insulin before breakfast, [...] 05/29/2011 GCAMP Negative 05/29/2011 CHLMGENE Negative 05/29/2011 [id number] <0.18* 07/15/2011 AST 14 09/09/2011 Lab Results [...] A-: will need cord blood ?? Gerd: nexium CHELA LOPEZ MD 12/18/2011 Addendum: 31 yo woman [...] Obstetric) Intervention: Attachment Promotion (Obstetric) Pt holding infant during assessment. Plans to be DC'd today. Pt pleased. en route to take her home. Call light within reach. * Plan of Care - Mayelin Oh RN - 12/20/2011 8:45 AM EDT Problem: Following Section Delivery (Adult, Obstetric) Intervention: Attachment Promotion (Obstetric) Pt uncomfortable this morning, fell behind on meds. Pain meds given and swaddled to help give pt a break. Pt expecting her family to come and visit today. Call light within reach. * Plan of Care - Pradeep Rascon RN - 12/19/2011 2:08 PM EDT Problem: Following Section Delivery (Adult, Obstetric) Intervention: Bowel Function Promotion Ambulation encouraged, stool softener given to patient. * Plan of Care - Pradeep Rascon RN - 12/19/2011 2:07 PM EDT Problem: Following Section Delivery (Adult, Obstetric) Intervention: Personal Hygiene Promotion Pt oob to restroom, pericare done with minimal assistance. Hand hygiene encouraged. * Plan of Care - Pradeep Rascon RN - 12/19/2011 2:07 PM EDT [...] of group B Streptococcus V02.51A Care Provider: [facility] Admission History (per admit note) Migdalia Garcia [...] and metformin. She was pumping for her in the N and will be followed up in the clinic in 2 weeks for depression check and 6 week . She will come to the clinic in 2-3 days to have her derik removed. Important Studies and Lab Data: Labs: Recent Labs Basename 12/19/1160912/18/11 1030 ??? WBC 11.1* 8.8 ??? HGB 13.0 13.9 ??? HCT 37.6 39.6 ??? PLATELET 162 161 Recent Labs Basename 12/19/11 0610 ??? NA -- ??? K -- ??? CL -- ??? CO2 -- ??? BUN -- ??? CREATININE 0.45* Recent Labs Basename 12/19/1110 12/18/11 1030 ??? AST 28 21 ??? [...] ??? Living Yes Name of Baby 4 MATTHEW,BABY GIRL ??? Outcome Date 12/18/11 GA 37w [...] none Provider Contact Information: DAV CARLOS MD [phone] Discharge References/Attachments: Discharge References/Attachments None Signed: Santana Mathews MD * Miscellaneous - Provider, Scanning - 12/18/2011 8:37 PM EDT * Op Note - Pam Prasad MD - 12/18/2011 7:12 PM EDT [facility] Operative Note Patient Name: Migdalia Garcia : [id number] MR#: [id number] Case Date: 12/18/2011 Surgeon: Surgeon(s) and Role: * CHELA LOPEZ MD - Resident-Financial Risk Manager * ALEXANDRE ELIZABETH MD - *ASSISTING SURGEON [...] was obtained. Findings at surgery: 1. Female infant in cephalic presentation. Clear fluid. Peds was [...] single area of nonhemostasis and a single hbfmoh-bo-vihcr was placed for hemostasis. The gutters were [...] plain gut. The skin was closed with derik. Sterile bandages were placed. The vagina was [...] for the patient's : Mejia Garcia Girl [[id number]] Delivery 12/18/2011 5:23 PM by Lower Segment Transverse Sex: female Gestational Age: 37.6 weeks. Delivery Clinician: Pam Prasad Living?: Yes APGARS One minute Five minutes Ten [...] providers: Delivery Assist Delivery Nurse Resident Resident Shopfitter Amina Elizabeth Additional information: Forceps: Vacuum: Breech: [...] for the patient's : Mejia Garcia Girl [[id number]] Delivery 12/18/2011 5:23 PM by Lower Segment Transverse Sex: female Gestational Age: 37.6 weeks. Delivery Clinician: Pam Prasad Living?: Yes APGARS One minute Five minutes Ten [...] providers: Delivery Assist Delivery Nurse Resident Resident Shopfitter Amina Elizabeth Additional information: Forceps: Vacuum: Breech: Observed anomalies * OR Attestation - Alexandre Elizabeth MD - 12/18/2011 6:30 PM EDT Attestation: Case Date: 12/18/2011 I was present and I participated during the closing of the uterus. Dr. Prasad was present for theopening and for the delivery of the and we overlapped during the closing of the uterus. ALEXANDRE ELIZAEBTH MD 12/18/2011 * Brief Op Note - Alexandre Elizabeth MD - 12/18/2011 6:30 PM EDT Brief Operative Note Patient Name: Migdalia Garcia : [id number] MR#: [id number] Case Date: 12/18/2011 Surgeon: Surgeon(s) and Role: * CHELA LOPEZ MD - Resident-Financial Risk Manager * ALEXANDRE ELIZABETH MD - *ASSISTING SURGEON * PAM PRASAD MD - Primary Preoperative diagnosis: REPEAT C/S Postoperative diagnosis: Procedure(s): @ DELIVERY Anesthesia: Other Findings: viable infant, extensive adhesions of omentum to anterior abdominal [...] 7:56 AM EDT DIFFERENTIAL, AUTOMATED Routine 12/19/19 12 6:10 AM EDT CREATININE Routine 12/19/2011 6:10 [...] POC Glucose 115 60 - 199 mg/dL ANA [facility] Comment: Supplemental ranges: <110 mg/dL before meals <200 mg/dL all other times of the day Blood specimen (specimen) 12/20/2011 6:55 PM EDT 12/20/2011 6:55 PM EDT Pam Prasad MD POINT OF CARE TEST O RDERABLES [facility] * POCT GLUCOSE (12/20/2011 2:00 PM EDT) POC Glucose 106 60 - 199 mg/dL [facility] Comment: Supplemental ranges: <110 mg/dL before meals <200 mg/dL all other times of the day Blood specimen (specimen) 12/20/2011 2:00 PM EDT 12/20/2011 2:00 PM EDT Pam Prasad MD POINT OF CARE TEST O RDTONO Performing Organization Address [facility] de Phone Number [facility] * POCT GLUCOSE (12/20/2011 10:42 AM EDT) POC Glucose 139 60 - 199 mg/dL [facility] Comment: Supplemental ranges: <110 mg/dL before meals <200 mg/dL all other times of the day Blood specimen (specimen) 12/20/2011 10:42 AM EDT 12/20/2011 10:42 AM EDT Pam Prasad MD POINT OF CARE TEST O TARUN Performing Organization Address [facility] de Phone Number [facility] * POCT GLUCOSE (12/19/2011 7:34 PM EDT) POC Glucose 120 60 - 199 mg/dL [facility] Comment: Supplemental ranges: <110 mg/dL before meals <200 mg/dL all other times of the day Blood specimen (specimen) 12/19/2011 7:34 PM EDT 12/19/2011 7:34 PM EDT Pam Prasad MD POINT OF CARE TEST O TARUN Performing Organization Address [facility] de Phone Number [facility] * POCT GLUCOSE (12/19/2011 1:47 PM EDT) POC Glucose 102 60 - 199 mg/dL [facility] Comment: Supplemental ranges: <110 mg/dL before meals <200 mg/dL all other times of the day Blood specimen (specimen) 12/19/2011 1:47 PM EDT 12/19/2011 1:47 PM EDT Pam Prasad MD POINT OF CARE TEST O TARUN Performing Organization Address [facility] de Phone Number ANA [facility] * POCT GLUCOSE (12/19/2011 10:01 AM EDT) POC Glucose 114 60 - 199 mg/dL [facility] Comment: Supplemental ranges: <110 mg/dL before meals <200 mg/dL all other times of the day Blood specimen (specimen) 12/19/2011 10:01 AM EDT 12/19/2011 10:01 AM EDT Pam Prasad MD POINT OF CARE TEST O RDERABLES Performing Organization Address [facility] Co de Phone Number ANA [facility] * POCT GLUCOSE (12/19/2011 7:56 AM EDT) POC Glucose 88 60 - 199 mg/dL ANA [facility] Comment: Supplemental ranges: <110 mg/dL before meals <200 mg/dL all other times of the day Blood specimen (specimen) 12/19/2011 7:56 AM EDT 12/19/2011 7:56 AM EDT Pam Prasad MD POINT OF CARE TEST O RDERABLES Performing Organization Address [facility] de Phone Number ANA [facility] * (ABNORMAL) DIFFERENTIAL, AUTOMATED (12/19/2011 6:10 AM [...] EDT Pam Prasad MD HEMATOLOGY ORDERABLE S [facility] * (ABNORMAL) Creatinine, serum (12/19/2011 6:10 AM EDT) Creatinine 0.45(L) 0.70 - 1.20 mg/dL [facility] Comment: Please note that the pediatric reference intervals supplied above were not validated at [facility]. Results from pediatric patients should be interpreted [...] Prasad MD CHEMISTRY ORDERABLES Performing Organization Address [facility] de Phone Number [facility] * Aspartate Aminotransferase (12/19/2011 6:10 AM EDT) AST 28 0 - 30 unit/L [facility] Blood specimen (specimen) 12/19/2011 6:10 AM EDT 12/19/2011 6:28 AM EDT Narrative Resulting Agency Comment Spec In Lab Pam Prasad MD CHEMISTRY ORDERABLES Performing Organization Address [facility] de Phone Number [facility] * (ABNORMAL) CBC (with Diff) (12/19/2011 6:10 AM EDT) WBC 11.1(H) 4.0 - 10.0 x10(3)/mcL [facility] RBC 4.16 3.93 - 5.22 x10(6)/mcL [facility] Hemoglobin 13.0 11.2 - 15.7 gm/dL [facility] Hematocrit 37.6 34.0 - 45.0 % [facility] MCV 90.4 79.0 - 94.0 fL [facility] MCH 31.3 26.6 - 32.2 pg [facility] MCHC 34.6 32.0 - 36.5 gm/dL [facility] Platelets 162 145 - 370 x10(3)/mcL [facility] RDWSD 43.0 35.0 - 46.0 fL [facility] RDWCV 13.3 10.9 - 14.4 % [facility] MPV 9.7 9.0 - 12.0 fL [facility] Blood specimen (specimen) 12/19/2011 6:10 AM EDT 12/19/2011 6:28 AM EDT Narrative Resulting Agency Comment Spec In Lab Pam Prasad MD HEMATOLOGY ORDERABLE S [facility] * POCT GLUCOSE (12/18/2011 9:11 PM EDT) POC Glucose 75 60 - 199 mg/dL [facility] Comment: Supplemental ranges: <110 mg/dL before meals <200 mg/dL all other times of the day Blood specimen (specimen) 12/18/2011 9:11 PM EDT 12/18/2011 9:11 PM EDT Pam Prasad MD POINT OF CARE TEST O RDERABLES [facility] * Specimen to Pathology (NON-OR) (12/18/2011 7:07 PM EDT) AP Specimen 12/18/2011 7:07 PM EDT 12/18/2011 7:07 PM EDT Narrative ANA [facility] - 12/18/2011 7:07 PM EDT Specimen requisition ordered. ??Separate Pathology report to follow Pam Prasad MD PATHOLOGY/CYTOLOGY O TARUN Performing Organization Address [facility] de Phone Number [facility] * POCT GLUCOSE (12/18/2011 2:34 PM EDT) POC Glucose 130 60 - 199 mg/dL [facility] Comment: Supplemental ranges: <110 mg/dL before meals <200 mg/dL all other times of the day Blood specimen (specimen) 12/18/2011 2:34 PM EDT 12/18/2011 2:34 PM EDT Pam Prasad MD POINT OF CARE TEST O TARUN Performing Organization Address [facility] de Phone Number [facility] * POCT GLUCOSE (12/18/2011 1:48 PM EDT) POC Glucose 61 60 - 199 mg/dL [facility] Comment: Supplemental ranges: <110 mg/dL before meals <200 mg/dL all other times of the day Blood specimen (specimen) 12/18/2011 1:48 PM EDT 12/18/2011 1:48 PM EDT Pam Prasad MD POINT OF CARE TEST O TARUN Performing Organization Address [facility] Phone Number [facility] * AB COMMENT (12/18/2011 12:25 PM EDT) Ab Information INTERPRETATION : The patient's specimen shows the presence of the antibody anti-D. ??The patient is negative for the RhD antigen. ??The patient recently received RhIg; the reactivity in the specimen almost certainly represents passive anti-D. ??Unit selection is per routine. S, 12/25/2011 [facility] Comment: SALAZAR MOORE, Pathologist Verified:12/25/11 Blood specimen (specimen) 12/18/2011 12:25 PM EDT 12/18/2011 12:25 PM EDT Narrative Resulting Agency Comment Spec In Lab Pam Prasad MD BLOOD BANK LAB ORDER MARIJA Performing Organization Address City/[facility] Co de Phone Number ANA [facility] * ANTIBODY IDENTIFICATION (12/18/2011 12:25 PM EDT) [facility] Ab Identified Anti-D passive [facility] Blood specimen (specimen) 12/18/2011 12:25 PM EDT 12/18/2011 12:25 PM EDT Narrative Resulting Agency Comment Spec In Lab Pam Prasad MD BLOOD BANK LAB ORDER MARIJA Performing Organization Address City/[facility] Co de Phone Number ANA GILMAN * SELECTED CELL SCREEN (12/18/2011 12:25 PM EDT) [facility] Ab Screen Interp Anti-D detected, most likely passive antibody related to Rh Immune Globulin administrated on 10/13/2011_. ??No alloantibodies detected. [facility] Blood specimen (specimen) 12/18/2011 12:25 PM EDT 12/18/2011 12:25 PM EDT Narrative Resulting Agency Comment Spec In Lab Pam Prasad MD BLOOD BANK LAB ORDER MARIJA Performing Organization Address [facility] Co de Phone Number [facility] * POCT urine dipstick (12/18/2011 11:36 AM EDT) [facility] POC Sp [place] 1.002 - 1.030 POC pH, UA 5.0 [...] 10:44 AM EDT) Surgical Pathology Report ? [facility] ? Provider: ?? PAM PRASAD ?Pt. Name: ?? MIGDALIA GARCIA ? Acc #: ?[id number] ?Pt. ? Col Date: ?? 12/18/2011 ? [...] Description: ?? Discoid hamm placenta. ?Membranes: ? [place], clear. ??Marginal insertion. ?Cord: ?62.0 x 1.5 [...] Specimen Submitted: ? A - Placenta ? [facility] ? Provider: ?? PAM PRASAD ?Pt. Name: ?? MIGDALIA GARCIA ? Acc #: ?[id number] ?Pt. ? Col Date: ?? 12/18/2011 ? /Sex: ?1980,(31 ? years),Female ? Rec Date: ?? 12/22/2011 ?LOC: ?BP ? SURGICAL PATHOLOGY ? Clinical History/Diagnosis: ? 31 yo S/P repeat section with preeclampsia [facility] 12/18/2011 10:4 4 AM EDT Pam Prasad MD PATHOLOGY/CYTOLOGY O RDERABLES Performing Organization Address [facility] de Phone Number [facility] * ANTIBODY IDENTIFICATION (12/18/2011 10:30 AM EDT) Pathologist [facility] Ab Identified Anti-D passive [facility] Blood specimen (specimen) 12/18/2011 10:30 AM EDT 12/18/2011 11:04 AM EDT Narrative Resulting Agency Comment Spec In Lab Pam Prasad MD BLOOD BANK LAB ORDER MARIJA Performing Organization Address [facility] Co de Phone Number [facility] * DIFFERENTIAL, AUTOMATED (12/18/2011 10:30 AM EDT) Neutrophils % 65.5 34.0 - 71.0 % [facility] Neutr Abs (ANC) 5.73 1.50 - 6.30 [...] AM EDT) Ab Screen Interp Positive CERNER MILLENNIUM Expires at [id number] on: [id number] [facility]ILLEN[facility] Blood specimen (specimen) 12/18/2011 10:30 AM EDT 12/18/2011 10:50 AM EDT Narrative Resulting Agency Comment Spec In Lab Pam Prasad MD BLOOD BANK LAB ORDER MARIJA ANA [facility] * ABO/RH TYPING (12/18/2011 10:30 AM EDT) ABORH Type A Neg [facility] Blood specimen (specimen) 12/18/2011 10:30 AM EDT 12/18/2011 10:50 AM EDT Narrative Resulting Agency Comment Spec In Lab Pam Prasad MD BLOOD BANK LAB ORDER MARIJA Performing Organization Address [facility] de Phone Number [facility]NA [facility] * Aspartate Aminotransferase (12/18/2011 10:30 AM EDT) AST 21 0 - 30 unit/L [facility]ILLEN[facility] Blood specimen (specimen) 12/18/2011 10:30 AM EDT 12/18/2011 10:46 AM EDT Narrative Resulting Agency Comment Spec In Lab Pam Prasad MD CHEMISTRY ORDERABLES Performing Organization Address [facility] de Phone Number [facility] * CBC [...] encounter Visit Diagnoses Diagnosis Supervision of high-risk - Primary Unspecified high-risk Diabetes mellitus Type II or unspecified type diabetes mellitus without mention of complication, not stated as uncontrolled CADY (obstructive sleep apnea) Obstructive sleep apnea (adult) (pediatric) Hypertension Unspecified essential hypertension GERD (gastroesophageal reflux disease) Esophageal reflux Previous section Other postprocedural status 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 unspecified as to episode of care in Rubella non-immune status Other specified conditions influencing health status BMI 43 Obesity complicating , childbirth, or the puerperium, unspecified as to episode of care or not applicable Hx of preeclampsia, prior , currently with other poor obstetric history documented in this encounter Administered Medications Inactive Administered Medications - up to 3 most recent administrations Medication Order MAR Action Action Date Dose Rate Site ceFAZolin (ANCEF) 2g in dextrose 5% 100mL 2 g, Intravenous, ONCE, 1 dose, On Wed12/18/11 at 1115, Administer over 30 Minutes, For section prophylaxis, Indication for (Active or Suspected): Prophylaxis Given by Other 12/18/2011 4:36 PM EDT 2 g citric acid-sodium citrate (BICITRA) 500-334 mg/5 mL oral solution 1 dose, Starting on Wed12/18/11 at 1447, Until Wed12/18/11 at 1555, PRADEEP GEDDINGS: Cabinet Override Given by Other 12/18/2011 3:55 PM EDT 30 mLs dextrose 5% and sodium chloride 0.9% infusion 125 mL/hr, Intravenous, CONTINUOUS, Starting on Wed12/18/11 at 1415, Until Wed12/18/11 at 1907 New Bag 12/18/2011 2:15 PM EDT 125 mL/hr 125 mL/hr dextrose 50% 50% injection 1 dose, Starting on Wed12/18/11 at 1347, Until Wed12/18/11 at 1406, PRADEEP GEDDINGS: Cabinet Override dextrose 50% injection 25 mL 25 mL, Intravenous, PER INSULIN PROTOCOL, Starting on Wed12/18/11 at 1349, Until Wed12/18/11 at 1907, Low blood sugar, Routine Given 12/18/2011 2:06 PM EDT 25 mLs diphenhydrAMINE (BENADRYL) capsule 25 mg 25 mg, Oral, EVERY 6 HOURS PRN, Starting on 12/19/11 at 0321, Until 12/21/11 at 1354, Itching, Routine Given 12/19/2011 3:30 AM EDT 25 mg docusate sodium (COLACE) capsule 100 mg 100 mg, Oral, 2 TIMES DAILY, First dose on Wed12/18/11 at 2100, Until Discontinued, Routine Given 12/21/2011 9:00 AM EDT 100 mg Given 12/20/2011 9:10 PM EDT 100 mg Given 12/20/2011 9:00 AM EDT 100 mg esomeprazole (NEXIUM) capsule 40 mg 40 mg, Oral, DAILY, First dose on 12/19/11 at 0900, Until Discontinued, Routine Given 12/21/2011 9:00 AM EDT 40 mg Given 12/20/2011 9:00 AM EDT 40 mg Given 12/19/2011 9:00 AM EDT 40 mg ibuprofen (ADVIL;MOTRIN) tablet 600 mg 600 mg, Oral, EVERY 6 HOURS PRN, Starting on 12/19/11 at 1000, Until Wed12/21/11 at 1354, Pain, - Begin after ketorolac discontinued. , Routine Given 12/21/2011 7:40 AM EDT 600 mg Given 12/20/2011 9:11 PM EDT 600 mg Given 12/20/2011 2:06 PM EDT 600 mg ketorolac (TORADOL) injection 30 mg 30 mg, Intravenous, EVERY 6 HOURS PRN, Starting on Wed12/18/11 at 1907, Until 12/19/11 at 0745, Pain, Routine Given 12/19/2011 6:31 AM EDT 30 mg Given 12/19/2011 12:15 AM EDT 30 mg lactated ringers 500 mL IV bolus 500 mL, at 500 mL/hr, Intravenous, ONCE, 1 dose, On Wed12/18/11 at 1115, Prior to epidural placement or concerning heart rate pattern or maternal condition Given by Other 12/18/2011 3:30 PM EDT 500 mLs 500 mL/hr lactated ringers infusion 75 mL/hr, Intravenous, CONTINUOUS, Starting on Wed12/18/11 at 2230, Until 12/21/11 at 1354 New Bag 12/18/2011 10:30 PM EDT 75 mL/hr 75 mL/hr magnesium sulfate 20 g/500 mL infusion 2 g/hr (rounded to 50 mL/hr), Intravenous, CONTINUOUS, Starting on Wed12/18/11 at 1945, Until 12/19/11 at 1944, Administer 4 gram bolus over 20 minutes, and then run at 2 g/hour (50 mL/hour), Routine New Bag 12/19/2011 1:00 PM EDT 2 g/hr 50 mL/hr New Bag 12/19/2011 3:00 AM EDT 2 g/hr 50 mL/hr New Bag 12/18/2011 7:00 PM EDT 2 g/hr 50 mL/hr measles, mumps and rubella vaccine (MMR) vaccine injection 0.5 mL 0.5 mL, Subcutaneous, PRIOR TO DISCHARGE, 1 dose, Starting on 12/19/11 at 0723, Until 12/20/11 at 2110, Per Protocol, Routine Given 12/20/2011 9:10 PM EDT 0.5 mLs Left Arm metFORMIN (GLUCOPHAGE) tablet 500 mg 500 mg, Oral, 2 TIMES DAILY WITH MEALS, First dose on 12/19/11 at 0800, Until Discontinued, Routine Given 12/21/2011 8:00 AM EDT 500 mg Given 12/20/2011 5:00 PM EDT 500 mg Given 12/20/2011 8:00 AM EDT 500 mg methyldopa (ALDOMET) tablet 250 mg 250 mg, Oral, 2 TIMES DAILY, First dose on Wed12/18/11 at 1115, Until Discontinued Given 12/18/2011 11:46 AM EDT 250 mg methyldopa (ALDOMET) tablet 250 mg 250 mg, Oral, EVERY 12 HOURS SCHEDULED (2 times per day), First dose on 12/19/11 at 0200, Until Discontinued Given 12/21/2011 9:00 AM EDT 250 mg Given 12/20/2011 9:11 PM EDT 250 mg Given 12/20/2011 9:00 AM EDT 250 mg NIFEdipine (ADALAT CC) CR tablet 30 mg 30 mg, Oral, 2 TIMES DAILY, First dose on 12/20/11 at 1015, Until Discontinued, Routine Given 12/21/2011 9:00 AM EDT 30 mg Given 12/20/2011 9:11 PM EDT 30 mg Given 12/20/2011 10:15 AM EDT 30 mg ondansetron (ZOFRAN) injection 4 mg 4 mg, Intravenous, EVERY 8 HOURS PRN, Starting on Wed12/18/11 at 2200, Until 12/21/11 at 1354, Nausea, Routine Given 12/18/2011 10:10 PM EDT 4 mg OXYcodone-acetaminophen (PERCOCET) 5-325 mg per tablet 1-2 tablet 1-2 tablet, Oral, EVERY 3 HOURS PRN, Starting on Wed12/18/11 at 1907, Until 12/21/11 at 1354, Pain, moderate-severe pain, Administer 1 tablet for moderate pain and 2 tablets for severe pain. Maximum dose of acetaminophen is 4,000 mg from all sources in 24 hours., Routine Given 12/21/2011 7:40 AM EDT 2 tab lets Given 12/20/2011 6:59 PM EDT 2 tablets Given 12/20/2011 8:37 AM EDT 2 tablets documented in this encounter Active and Recently Administered Medications Times are shown in EDT. Scheduled Medication Order 12/19/2011 12/20/2011 12/21/2011 docusate sodium (COLACE) capsule 100 mg 100 mg, Oral, 2 TIMES DAILY, First dose on Wed12/18/11 at 2100, Until Discontinued, Routine 0900 (Given - Provider: Pradeep Rascon RN)2100 (Given - Provider: Kerri Best RN) 0900 (Given - Provider: Mayelin Oh RN)2110 (Given - Provider: Makenzie Tobias RN) 0900 (Given - Provider: Mayelin Oh RN) esomeprazole (NEXIUM) capsule 40 mg (CANCELED) 40 mg, Oral, DAILY, First dose on 12/19/11 at 0900, Until Discontinued, Routine 0900 (Given - Provider: Pradeep Rascon RN) 0900 (Given - Provider: Mayelin Oh RN) 0900 (Given - Provider: Mayelin Oh RN) metFORMIN (GLUCOPHAGE) tablet 500 mg 500 mg, Oral, 2 TIMES DAILY WITH MEALS, First dose on 12/19/11 at 0800, Until Discontinued, Routine 0845 (Given - Provider: Pradeep Rascon RN)1700 (Hold - Provider: Pradeep Rascon RN - Reason: See comment - Comment: pt to call when dinner received)1822 (Given - Provider: Pradeep Rascon RN) 0800 (Given - Provider: Mayelin Oh RN)1700 (Given - Provider: Mayelin Oh RN) 0800 (Given - Provider: Mayelin Oh RN) methyldopa (ALDOMET) tablet 250 mg (CANCELED) 250 mg, Oral, EVERY 12 HOURS SCHEDULED (2 times per day), First dose on 12/19/11 at 0200, Until Discontinued 0200 (Given - Provider: Kerri Best RN)0900 (Given - Provider: Pradeep Rascon RN)2100 (Given - Provider: Kerri Best RN) 0900 (Given - Provider: Mayelin Oh RN)211 (Given - Provider: Makenzie Tobias RN) 09 (Given - Provider: Mayelin Oh RN) NIFEdipine (ADALAT CC) CR tablet 30 mg 30 mg, Oral, 2 TIMES DAILY, First dose on 12/20/11 at 1015, Until Discontinued, Routine 1015 (Given - Provider: Mayelin Oh RN)2110 (Given - Provider: Makenzie Tobias RN) 09 (Given - Provider: Mayelin Oh RN) Continuous Medication Order 12/19/2011 12/20/2011 12/21/2011 magnesium sulfate 20 g/500 mL infusion () 2 g/hr (rounded to 50 mL/hr), Intravenous, CONTINUOUS, Starting on Wed12/18/11 at 1945, Until 12/19/11 at 1944, Administer 4 gram bolus over 20 minutes, and then run at 2 g/hour (50 mL/hour), Routine 0300 (New Bag - Provider: Kerri Best RN)1300 (New Bag - Provider: Pradeep Rascon, BEREKET)1800 (Stopped - Provider: Pradeep Rascon RN) PRN Medication Order 12/19/2011 12/20/2011 [...] Oh, BEREKET)1406 (Given - Provider: Lakesha Worley RN)2111 (Given - Provider: Makenzie Tobias RN) 0740 (Given - Provider: Mayelin Oh, BEREKET) ketorolac (TORADOL) injection 30 mg (CANCELED)(Linked Group 1) 30 mg, Intravenous, EVERY 6 HOURS PRN, Starting on 12/18/11 at 1907, Until 12/19/11 at 0745, Pain, Routine 0015 (Given - Provider: Kerri Best RN)0631 (Given - Provider: Kerri Best, BEREKET) measles, mumps and rubella vaccine (MMR) vaccine injection 0.5 mL (COMPLETED) 0.5 mL, Subcutaneous, PRIOR TO DISCHARGE, 1 dose, Starting on 12/19/11 at 0723, Until 12/20/11 at 2110, Per Protocol, Routine 211 (Given - Provider: Makenzie Tobias RN) OXYcodone-acetaminophen (PERCOCET) 5-325 mg per tablet 1-2 tablet 1-2 tablet, Oral, EVERY 3 HOURS PRN, Starting on 12/18/11 at 1907, Until 12/21/11 at 1354, Pain, [...] Intravenous, EVERY 6 HOURS PRN, Starting on 12/18/11 at 1907, Until 12/19/11 at 0745, Pain, Routine Followed by ibuprofen (ADVIL;MOTRIN) tablet 600 mgJump to med 600 mg, Oral, EVERY 6 HOURS PRN, Starting on 12/19/11 at 1000, Until 12/21/11 at 1354, Pain, - Begin after ketorolac discontinued. , Routine documented in this encounter Care Teams Billet Grinder Relationship Specialty Start Date End Date Dav Carlos MD PCP - General 10/01/10 11/30/12 documented as of this encounter
--- OUTSIDE RECORDS SUMMARY | 2023-10-28 21:40 | XMS_ITS | Encounter Summary ---
Author Organization Counts Include [facility] Address [facility] [place] [address] Care Team Providers Care Animal Shelter Manager Name Role Phone Dav Carlos MD Primary Care Provider [phone] Encounter Details Date Type Department Care Team (Latest Contact Info) Description 10/13/2011 10:01 AM EDT - 10/13/2011 11:59 PM EDT Hospital [place] [id number] Marilyn Reilly MD [facility] OBSTETRICS & [place] [address] Unspecified high-risk Discharge Disposition: Home Social History [...] Procedure Name Priority Date/Time Associated Diagnosis Comments DIFFERENTIAL, AUTOMATED Routine 10/13/2011 10:14 AM EDT ABO/RH TYPING Routine 10/13/2011 10:14 AM EDT Unspecified high-risk CBC (WITH DIFF) Routine 10/13/2011 10:14 AM EDT Unspecified high-risk ANTIBODY SCREEN Routine 10/13/2011 10:14 AM EDT Unspecified high-risk TYPE AND SCREEN ([facility]) Routine 10/13/2011 10:02 AM EDT Unspecified high-risk documented in this encounter Results * DIFFERENTIAL, AUTOMATED (10/13/2011 10:14 AM EDT) Neutrophils % 68.5 34.0 - 71.0 % CERNER MILLENNIUM Neutr Abs (ANC) 5.66 1.50 - 6.30 x10(3)/mcL CERNER MILLENNIUM Lymphocytes % 25.4 19.0 - 53.0 % CERNER MILLENNIUM Lymphocytes Abs 2.1 1.0 - 3.6 x10(3)/mcL CERNER MILLENNIUM Monocytes % 5.1 4.0 - 13.0 % CERNER MILLENNIUM Monocyte Abs 0.4 0.2 - 1.0 x10(3)/mcL CERNER MILLENNIUM Eosinophils % 0.8 0.0 - 7.0 % CERNER MILLENNIUM Eosinophils Abs 0.1 0.0 - 0.5 x10(3)/mcL CERNER MILLENNIUM Basophils % 0.1 0.0 - 2.0 % CERNER MILLENNIUM Basophils Abs 0.0 0.0 - 0.2 x10(3)/mcL CERNER MILLENNIUM Immature Gran % 0.10 0.00 - 0.66 % CERNER MILLENNIUM Comment: Immature granulocytes(IG's)percentage and absolute count will include metamyelocytes, myelocytes, and promyelocytes. Blood smears from CBCs yielding IG's will be scanned manually for concordance. If this scan disagrees with the automated IG or if promyelocytes are noted, a manual differential will be performed. Rebecca Gran Abs 0.01 0.00 - 0.05 x10(3)/mcL CERNER MILLENNIUM Blood specimen (specimen) 10/13/2011 10:14 AM EDT 10/13/2011 10:21 AM EDT Marilyn Reilly MD HEMATOLOGY ORDERAB LES ANA FERNÁNDEZIUM * ANTIBODY SCREEN (10/13/2011 10:14 AM EDT) Ab Screen Interp Negative ANA FERNÁNDEZIUM Expires at 2359 on: [id number] ANA FERNÁNDEZIUM Blood specimen (specimen) 10/13/2011 10:14 AM EDT 10/13/2011 12:03 PM EDT Narrative Resulting Agency Comment Spec In Lab Marilyn Reilly MD BLOOD BANK LAB ORD ERABLES ANA FERNÁNDEZIUM * ABO/RH TYPING (10/13/2011 10:14 AM EDT) Pathologist [facility] ABORH Type A Neg ANA FERNÁNDEZIUM Blood specimen (specimen) 10/13/2011 10:14 AM EDT 10/13/2011 12:03 PM EDT Narrative Resulting Agency Comment Spec In Lab Marilyn Reilly MD BLOOD BANK LAB ORD ERABLES Performing Organization Address City/[facility]/ZIP Co de Phone Number ANA FERNÁNDEZIUM * CBC (with Diff) (10/13/2011 10:14 AM EDT) WBC 8.3 4.0 - 10.0 x10(3)/mcL [facility] RBC 3.99 3.93 - 5.22 x10(6)/mcL CERNER MILLENNIUM Hemoglobin 12.5 11.2 - 15.7 gm/dL [facility] Hematocrit 35.7 34.0 - 45.0 % [facility] MCV 89.5 79.0 - 94.0 fL CERNER MILLENNIUM MCH 31.3 26.6 - 32.2 pg [facility]ILL[facility] MCHC 35.0 32.0 - 36.5 gm/dL [facility] Platelets 157 145 - 370 x10(3)/mcL CERNER MILLENNIUM RDWSD 43.0 35.0 - 46.0 fL [facility]ILL[facility] RDWCV 13.2 10.9 - 14.4 % CERNER MILLENNIUM MPV 9.7 9.0 - 12.0 fL ANA LILLYENNIUM Blood specimen (specimen) 10/13/2011 10:14 AM EDT 10/13/2011 10:21 AM EDT Narrative Resulting Agency Comment Spec In Lab Marilyn Reilly MD HEMATOLOGY ORDERAB LES ANA GILMAN documented in this encounter Visit Diagnoses Diagnosis Unspecified high-risk documented in this encounter Care Teams Animal Shelter Manager Relationship Specialty Start Date End Date Dav Carlos MD PCP - General 10/01/10 11/30/12 documented as of this encounter
--- OUTSIDE RECORDS SUMMARY | 2023-10-28 21:40 | XMS_ITS | Encounter Summary ---
Author Organization [facility] [place] [address] Care Team Providers Care Machine Joint Cutter Name Role Phone Dav Carlos MD Primary Care Provider [phone] Reason for Visit * Reason Comments Routine Visit Encounter Details Date Type Department Care Team ([facility] st Contact Info) Description 12/01/2011 10:30 AM EDT Routine Obstetrics [place] [address] Marilyn Reilly MD [facility] DR OBSTETRICS & [place] [address] GA: 35w1d Discharge Disposition: Home Social History Tobacco Use [...] Sign Reading Time Taken Comments Blood Pressure 136/76 12/01/2011 9:55 AM EDT Pulse - - Temperature - - Respiratory Rate - - Oxygen Saturation - - Inhaled Oxygen Concentration - - Weight 124.7 kg (274 lb 14.4 oz) 12/01/2011 9:55 AM EDT Height - - Body Mass Index 45.75 05/14/2011 9:46 AM EST documented in this encounter Progress Notes * Marilyn Reilly MD - 12/01/2011 11:47 AM EDT Insulin NPH 34u at hs, 18 u am. Novalog 10u am and dinner. Fasting 74-107 (>95 3x when stomach upset), 1hr pp 68-115 (all in range). Further discussed risks, still wants after counselling. NST 130 reactive, no decels. Cont NST 2x/ week. Has US and amniocentesis in 2 weeks. Needs GBBS next visit. 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
--- OUTSIDE RECORDS SUMMARY | 2023-10-28 21:40 | XMS_ITS | Encounter Summary ---
Author Organization [facility] [place] [address] Care Team Providers Care Respite Worker Name Role Phone Dav Carlos MD Primary Care Provider [phone] Reason for Visit * Reason Comments Routine Visit Encounter Details Date Type Department Care Team (Latest Contact Info) Description 06/16/2011 11:15 AM EST Routine Obstetrics [place] [address] Amina Mock MD [facility] [address] OBSTETRICS [place] [address] GA: 11w1d Discharge Disposition: Home Social History Tobacco Use [...] Sign Reading Time Taken Comments Blood Pressure 132/76 06/16/2011 11:19 AM EST Pulse - - Temperature - - Respiratory Rate - - Oxygen Saturation - - Inhaled Oxygen Concentration - - Weight 115.8 kg (255 lb 4.8 oz) 012 11:19 AM EST Height - - Body Mass Index 42.48 05/14/2011 9:46 AM EST documented in this encounter Progress Notes * Amina Mock MD - 06/16/2011 11:38 AM EST No bleeding FSBS better, fastings still slightly high Current: AM NPH 18 units, 10 humalog Dinner 10 humalog HS 18 NPH Change increase night NPH to 20 units RTC 2 weeks, call for dose adjustments documented in this encounter Plan of Treatment Not on file documented as of this encounter Visit Diagnoses Diagnosis Diabetes mellitus complicating , antepartum- Primary Diabetes mellitus, antepartum documented in this encounter Care Teams Respite Worker Relationship Specialty Start Date End Date Dav Carlos MD PCP - General 10/01/10 11/30/12 documented as of this encounter
--- OUTSIDE RECORDS SUMMARY | 2023-10-28 21:40 | XMS_ITS | Encounter Summary ---
Author Organization [facility] [place] [address] Care Team Providers Care Crisis Specialist Name Role Phone Dav Carlos MD Primary Care Provider [phone] Reason for Visit * Reason Comments Routine Visit Encounter Details Date Type Department Care Team ([facility] st Contact Info) Description 09/10/2011 3:15 PM EDT Routine Obstetrics [place] [address] Marilyn Reilly MD [facility] DR OBSTETRICS [place] [address] GA: 23w3d Discharge Disposition: Home Social History Tobacco Use [...] Sign Reading Time Taken Comments Blood Pressure 118/76 09/10/2011 3:46 PM EDT Pulse - - Temperature - - Respiratory Rate - - Oxygen Saturation - - Inhaled Oxygen Concentration - - Weight 118.4 kg (261 lb) 09/10/2011 3:46 PM EDT Height - - Body Mass Index 43.43 05/14/2011 9:46 AM EST documented in this encounter Progress Notes * Marilyn Reilly MD - 09/10/2011 4:12 PM EDT Fasting 58-103, 1 hr pp 64-149 ( only 2 values elevated). NPH 26u am at HS, humalog 10 NPH 18u. 10uhumalog dinner. FM felt. No LOF. No contractions. Had N/V and stomach pains last week seen in ED. Better now though stomach muscle are sore from wretching. No F/C. No diarrhea. Tolerating food and fluids. F/u 2-3 weeks for glucose reassessment. echo scheduled. * Josefina Huynh LNA - 09/10/2011 3:41 PM EDT The OB identification card, Glucose screening directions (if applicable) along with the Guide to [place] was given to the patient. The materials were discussed and the patient was encouraged to read the information and direct questions to the provider. documented in this encounter Plan of Treatment Not on file documented as of this encounter Results * CBC (with Diff) (10/13/2011 10:14 AM EDT) WBC 8.3 4.0 - 10.0 x10(3)/mcL CERNER MILLENNIUM RBC 3.99 3.93 - 5.22 x10(6)/mcL CERNER MILLENNIUM Hemoglobin 12.5 11.2 - 15.7 gm/dL CERNER MILLENNIUM Hematocrit 35.7 34.0 - 45.0 % CERNER MILLENNIUM MCV 89.5 79.0 - 94.0 fL CERNER MILLENNIUM MCH 31.3 26.6 - 32.2 pg CERNER MILLENNIUM MCHC 35.0 32.0 - 36.5 gm/dL CERNER MILLENNIUM Platelets 157 145 - 370 x10(3)/mcL CERNER MILLENNIUM RDWSD 43.0 35.0 - 46.0 fL CERNER MILLENNIUM RDWCV 13.2 10.9 - 14.4 % CERNER MILLENNIUM MPV 9.7 9.0 - 12.0 fL CERNER MILLENNIUM Blood specimen (specimen) 10/13/2011 10:14 AM EDT 10/13/2011 10:21 AM EDT Narrative Resulting Agency Comment Spec In Lab Marilyn Reilly MD HEMATOLOGY ORDERAB LES Performing Organization Address City/State/[facility] Co de Phone Number [facility] documented in this encounter Visit Diagnoses Diagnosis Unspecified high-risk documented in this encounter Care Teams Crisis Specialist Relationship Specialty Start Date End Date Dav Cralos MD PCP - General 10/01/10 11/30/12 documented as of this encounter
--- OUTSIDE RECORDS SUMMARY | 2023-10-28 21:40 | XMS_ITS | Encounter Summary ---
Author Organization [facility] [place] [address] Care Team Providers Care Head Char Filter Tank Tender Name Role Phone Dav Carlos MD Primary Care Provider [phone] Encounter Details Date Type Department Care Team (Late st Contact Info) Description 08/29/2011 Orders Only Obstetrics [place] [address] Marilyn Reilly MD [facility] DR OBSTETRICS & [place] [address] Diabetes in Social History Tobacco Use Types Packs/Day Years [...] as of this encounter Results * Echocardiogram Limited (10/06/2011 12:53 PM EDT) Anatomical Region Laterality Modality Other 10/06/2011 Narrative 10/06/2011 1:02 PM EDT Procedure: ? Pediatric Echocardiogram Patient: ? HARISH Xiao ?(Age): 1980(31) Med Rec#: ?[id number] ? Sex: ?F ? [place] Ht / Wt: ??(cm)/(kg) ? Pt. Loc: ? Echo Lab ? BSA: ? Study Date: ?10/06/2011 ? Pt. Type: Outpatient Study Quality: ?Tape: ? Referring: Marilyn Reilly It Training Specialist: Yosef Frankel Diagnosis:CPT Code(s): ??Doppler LTD (52710), ?? Echo F/U (77054), Color Doppler (23078), Indication(s): ??Maternal diabetes Rhythm: SUMMARY: 1. A [...] report has been electronically signed by: Percy ??Clemencia. Carmen PENALOZA ? 10/06/2011 13:02:08 Images reviewed and interpretation verified [facility] Cardiac Ultrasound Laboratory Procedure Note Percy Morales MD - 10/06/2011 Procedure: Pediatric Echocardiogram Patient: HARISH Xiao DOB(Age): 1980(31) Med Rec#: [id number] Sex: F [place] [facility] Ht / Wt: (cm)/(kg) Pt. Loc: Echo Lab BSA: Study Date: 10/06/2011 Pt. Type: Outpatient Study Quality: Tape: Referring: Marilyn Reilly It Training Specialist: Yosef Frankel Diagnosis:CPT Code(s): Doppler LTD (26960), Echo F/U (07143), Color Doppler (59453), Indication(s): Maternal diabetes Rhythm: SUMMARY: 1. A [...] 10/06/2011 13:02:08 Images reviewed and interpretation verified 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
--- OUTSIDE RECORDS SUMMARY | 2023-10-28 21:40 | XMS_ITS | Encounter Summary ---
Author Organization [facility] [place] [address] Care Team Providers Care Patrol Driver Name Role Phone Dav Carlos MD Primary Care Provider [phone] Reason for Visit * Reason Comments Routine Visit Encounter Details Date Type Department Care Team (Latest Contact Info) Description 11/17/2011 10:30 AM EDT Routine Obstetrics [place] [address] Lisette Elise MD [facility] DR OBSTETRICS & [place] [address] GA: 33w1d Discharge Disposition: Home Social History Tobacco Use [...] Sign Reading Time Taken Comments Blood Pressure 134/84 11/17/2011 10:01 AM EDT Pulse - - Temperature - - Respiratory Rate - - Oxygen Saturation - - Inhaled Oxygen Concentration - - Weight 121.4 kg (267 lb 11.2 oz) 2011 10:01 AM EDT Height - - Body Mass Index 44.55 05/14/2011 9:46 AM EST documented in this encounter Progress Notes * Lisette Elise MD - 11/17/2011 11:16 AM EDT Good movement. No contractions/ leaking fluid / bleeding / pain. No headache, vision changes, RUQ pain. NST reactive. Good glycemic control with rare value out of range, usually due to dietary indiscretion. Continue semiweekly NST. 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 in Rubella non-immune status Other specified conditions influencing health status Obesity in Obesity complicating , childbirth, or the puerperium, unspecified as to episode of care or not applicable Hx of preeclampsia, prior , currently with other poor obstetric history Hypertension Unspecified essential hypertension Diabetes mellitus Type II or unspecified type diabetes mellitus without mention of complication, not stated as uncontrolled documented in this encounter Care Teams Patrol Driver Relationship Specialty Start Date End Date Dav Carlos MD PCP - General 10/01/10 11/30/12 documented as of this encounter
--- OUTSIDE RECORDS SUMMARY | 2023-10-28 21:40 | XMS_ITS | Encounter Summary ---
Author Organization [facility] Address [facility] [place] [address] Care Team Providers Care Merchant Patroller Name Role Phone Dav Carlos MD Primary Care Provider [phone] Reason for Visit * Reason Comments Emesis Encounter Details Date Type Department Care Team ([facility] Contact Info) Description 09/09/2011 2:04 AM EDT - 09/09/2011 7:39 AM EDT [place] [address] Sivakumar Hopson MD [facility] [place] [address] Nausea with vomiting; , excessive vomiting Discharge Disposition: Home Social History Tobacco Use [...] Sign Reading Time Taken Comments Blood Pressure 108/60 09/09/2011 7:37 AM EDT Pulse 86 09/09/2011 7:37 AM EDT Temperature 36.5 ??C (97.7 ??F) 09/09/2011 7:37 AM ED T Respiratory Rate 16 09/09/2011 7:37 AM EDT Oxygen Saturation 96% 09/09/2011 7:37 AM EDT Inhaled Oxygen Concentration - - Weight - - Height - - Body Mass Index - - documented in this encounter Discharge Instructions * Discharge Instructions* Sivakumar Hopson MD - 09/09/2011 4:47 AM EDT Encourage fluids and gradually advance diet as tolerated. Use the Zofran ODT as written if needed for nausea and vomiting. Return to the emergency department if needed for persistent vomiting, increased pain, or any new problems. * Attachments The following attachments cannot be sent through Care Everywhere. * VOMITING: AFTER YOUR VISIT TO THE EMERGENCY ROOM ([facility]) documented in this encounter Medications at Time [...] times daily. 60 tablet 0 12/21/2011 02/01/2012 OXYcodone-acetaminoph en (PERCOCET) 5-325 mg per tablet Take 1-2 tablets by mouth every 3 hours as needed for Pain (moderate-severe pain). 20 tablet 0 12/21/2011 02/01/2012 metFORMIN (GLUCOPHAGE) 500 mg tablet Take 1 tablet by mouth 2 times daily (with meals). 60 tablet 1 12/21/2011 01/30/2013 ondansetron (ZOFRAN ODT) 4 mg oral disintegrating tablet Take 1-2 tablets by mouth every 8 hours as needed for Nausea. 12 tablet 1 09/09/2011 09/29/2011 ranitidine (ZANTAC) 150 mg capsuleIndications:Ob esity in ,Supervision of high-risk ,GERD (gastroesophageal reflux disease) Take 1 capsule by mouth 2 times daily. 60 capsule prn 08/27/2011 09/29/2011 methyldopa (ALDOMET) 250 mg tablet Take 1 tablet by mouth 2 times daily. 60 tablet 5 07/02/2011 01/09/2013 VITS W-CA,FE,FA,<1MG, ( VITAMIN ORAL) Take by mouth daily. 012 insulin NPH human recomb (HUMULIN;NOVOLIN) 100 unit/mL injectionIndications: Diabetes mellitus complicating , antepartum Inject subcutaneously. 15 units before breakfast, 15 units at bedtime 10 mL 12 05/14/2011 11/20/2011 insulin lispro (HUMALOG) 100 unit/mL injectionIndications: Diabetes mellitus complicating , antepartum Inject subcutaneously 2 times daily (before meals). 10 units before breakfast and before dinner 10 mL 12 05/14/2011 02/01/2012 Insulin Syringe-Needle U-100 (INSULIN SYRINGE) 1/2 mL 30 x /16 SyrgIndications:Diabe khushi mellitus complicating , antepartum by Misc.(Non-Drug; Combo Route) route. Taking insulin before breakfast, dinner and bedtime 1 Box prn 05/14/2011 02/01/2012 omeprazole (PRILOSEC) 40 mg capsule 20 MG = 1 Capsule(s) PO Once daily 03/17/2010 09/29/2011 documented as of this encounter Progress Notes * Mei Hunter MD - 09/09/2011 3:13 AM EDT Brief Note: Ms. Cantu is a female at 23w2 evaluated by the ED for gastroenteritis. She got IV fluids and some antiemetics. + dop tones (as per attending). Currently feeling little better, +FM, -LOF, -VB. Asked if she would like earlier appointment, and she wants me to arrange for this. Will schedule an earlier appointment with the MFM team. Mei Hunter MD, PGY1, [phone] documented in this encounter ED Notes * Sania Najera RN - 09/09/2011 7:38 AM EDT Discharge instructions reviewed, patient shows good comprehension. * Sania Najera RN - 09/09/2011 7:15 AM EDT Patient's IV is turned off by . Patient states they are going to send her home. Patient states her pain is improved. She has no tenderness to upper abdomin but states her lower abdomin is still sore to touch. * Sania Najera RN - 09/09/2011 7:08 AM EDT Report received from BEREKET Belcher * Esteban Mcmullne RN - 09/09/2011 3:11 AM EDT DESKTOP ENGINEER here * Esteban Mcmullen RN - 09/09/2011 3:[address] Hopson examining pt. * Esteban Mcmullen RN - 09/09/2011 2:[address] Martin examining pt. * Sivakumar Hopson MD - 09/09/2011 2:22 AM EDT Chief Complaint Patient presents with ??? Emesis HPI This is a 31 year old female patient who is 23 weeks with a PMH significant for DM, obesity, HTN and GERD who presents with emesis and abdominal pain. The patient reports that she was not feeling quite right all day, but still was able to have breakfast (toast) and lunch (salad) without any issues. At about 7:30 PM this past evening, after [facility] the patient felt sick to her stomach and developed abdominal pain which was like a band around her stomach. Since then she has vomited 3 times, with the vomit appearing like un-digested food the first two times followed by yellow/green vomit the third time. She feels diaphoretic and feels best when sitting upright. She reports feeling normal movement and does not feel like there are any abnormalities with the baby at all. She denies chest pain, urinary changes, vaginal bleeding, diarrhea, constipation or lightheadedness. She tried Peptobismal after the first emesis, which did not help. Then she tried a tylenol which she just vomited up. She finds the best position is sitting upright. Otherwise, her has been uneventful so far with excellent glucose control per her team. Past Medical History Diagnosis Date ??? GERD (gastroesophageal reflux disease) ??? Headache ??? Obesity ??? Hypertension 2008 switched to aldomet preconceptually ??? Diabetes mellitus 2008 also GDM, on metformin at beginning of pregnnayc ??? 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 CADY (obstructive sleep apnea) 327.23H ??? Hypertension 401.9AJ ??? Diabetes mellitus 250.00A ??? GERD (gastroesophageal reflux disease) 530.81S ??? Carpal tunnel syndrome 354.0 ??? Supervision of high-risk V23.9K ??? Previous section V45.89AGL ??? Rh negative status during 656.10U ??? Rubella non-immune status V49.89CX ??? BMI 43 649.10D ??? Hx of preeclampsia, prior , currently V23.49AY Prior to Admission medications Medication Sig Start Date End Date Taking? Authorizing Provider ranitidine (ZANTAC) 150 mg capsule Take 1 capsule by mouth 2 times daily. 08/27/11 Lisette Elise MD methyldopa (ALDOMET) 250 mg tablet Take 1 tablet by mouth 2 times daily. 07/02/11 Marilyn Reilly MD VITS W-CA,FE,FA,<1MG, ( VITAMIN ORAL) Take by mouth daily. Historical Provider, insulin NPH human recomb (HUMULIN;NOVOLIN) 100 unit/mL injection Inject subcutaneously. 15 units before breakfast, 15 units at bedtime 05/14/11 Amina Mock MD insulin lispro (HUMALOG) 100 unit/mL injection Inject subcutaneously 2 times daily (before meals). 10 units before breakfast and before dinner 05/14/11 Amina Mock MD Insulin Syringe-Needle U-100 (INSULIN SYRINGE) 1/2 mL 30 x 09/01 Syrg by [facility].(Non-Drug; Combo Route) route. Taking insulin before breakfast, dinner and bedtime 05/14/11 Amina Mock MD omeprazole (PRILOSEC) 40 mg capsule 20 MG = 1 Capsule(s) PO Once daily 03/17/10 No Known Allergies Review of Systems Constitutional: Positive for chills. Negative for fever, diaphoresis, activity change, appetite change, fatigue and unexpected weight change. HENT: Negative for congestion, sore throat, rhinorrhea, neck pain, neck stiffness and sinus pressure. Eyes: Negative for pain and visual disturbance. Respiratory: Negative for cough, chest tightness, shortness of breath and wheezing. Cardiovascular: Negative for chest pain, palpitations and leg swelling. Gastrointestinal: Positive for nausea, vomiting and abdominal pain. Negative for diarrhea, constipation and blood in stool. Genitourinary: Negative for dysuria, urgency, frequency, hematuria, vaginal bleeding, vaginal discharge and difficulty urinating. Musculoskeletal: Negative for myalgias and back pain. Skin: Negative for pallor and rash. Neurological: Negative for weakness, light-headedness and headaches. Psychiatric/Behavioral: Negative for confusion and agitation. Last value Range last 12 hrs Temperature Temp: 36.3 ??C (97.3 ??F) Temp: [36.3 ??C (97.3 ??F)] Heart Rate Heart Rate: 92 Heart Rate: [92-102] Blood Pressure BP: 132/75 mmHg BP: (132-141)/(75-83) Respiratory Rate Resp: 18 Resp: [18] SpO2 SpO2: 97 % SpO2: [96 %-97 %] Physical Exam Constitutional: She is oriented to person, place, and time. She appears well- developed and well-nourished. No distress. Obese female patient sitting upright in bed; Nauseous; Vomited x 1 HENT: Head: Normocephalic and atraumatic. Nose: Nose normal. Mouth/Throat: Oropharynx is clear and moist. No oropharyngeal exudate. Eyes: Conjunctivae and EOM are normal. Pupils are equal, round, and reactive to light. Right eye exhibits no discharge. Left eye exhibits no discharge. No scleral icterus. Neck: Normal range of motion. Neck supple. Cardiovascular: Normal rate, regular rhythm and intact distal pulses. Exam reveals no gallop and nofriction rub. No murmur heard. Pulmonary/Chest: Effort normal and breath sounds normal. No respiratory distress. She has no wheezes. She has no rales. She exhibits no tenderness. Abdominal: Soft. Bowel sounds are normal. She exhibits no distension. Tenderness is present. She has no rebound and no guarding. LUQ and RUQ discomfort on palpation Musculoskeletal: Normal range of motion. She exhibits no edema and no tenderness. Neurological: She is alert and oriented to person, place, and time. No cranial nerve deficit. She exhibits normal muscle tone. Coordination normal. Skin: Skin is warm and dry. No rash noted. She is not diaphoretic. Psychiatric: She has a normal mood and affect. Her behavior is normal. Thought content normal. Procedures Bedside U/S-> reassuring heart tones [facility]- N/A Diagnostics: Recent Results (from the past 24 hour(s)) CBC (WITH DIFF) Component Value Range ??? WBC 12.8 (*) 4.0 - 10.0 (x10(3)/mcL) ??? RBC 3.83 (*) 3.93 - 5.22 (x10(6)/mcL) ??? Hemoglobin 12.2 11.2 - 15.7 (gm/dL) ??? Hematocrit 33.8 (*) 34.0 - 45.0 (%) ??? MCV 88.3 79.0 - 94.0 (fL) ??? MCH 31.9 26.6 - 32.2 (pg) ??? MCHC 36.1 32.0 - 36.5 (gm/dL) ??? Platelets 167 145 - 370 (x10(3)/mcL) ??? RDWSD 41.5 35.0 - 46.0 (fL) ??? RDWCV 13.0 10.9 - 14.4 (%) ??? MPV 9.6 9.0 - 12.0 (fL) COMPREHENSIVE METABOLIC PANEL (NON-FASTING) Component Value Range ??? Glucose Lvl 117 60 - 199 (mg/dL) ??? BUN 7 (*) 8 - 18 (mg/dL) ??? Creatinine 0.37 (*) 0.70 - 1.20 (mg/dL) ??? Sodium 136 135 - 145 (mmol/L) ??? Potassium 3.4 (*) 3.5 - 5.0 (mmol/L) ??? Chloride 105 98 - 107 (mmol/L) ??? CO2 22 22 - 31 (mmol/L) ??? Anion Gap 9 5 - 15 (mmol/L) ??? Calcium 8.4 (*) 8.5 - 10.5 (mg/dL) ??? Total Protein 6.3 (*) 6.4 - 8.3 (gm/dL) ??? Albumin 3.6 3.2 - 5.2 (gm/dL) ??? AST 14 0 - 30 (unit/L) ??? ALT 12 0 - 30 (unit/L) ??? Alk Phos 49 40 - 104 (unit/L) ??? Total Bilirubin 0.3 0.2 - 1.3 (mg/dL) ??? Bili, Direct 0.1 0.0 - 0.3 (mg/dL) ? ? Estimated GFR >60 >=60 BETA HYDROXYBUTYRATE Component Value Range ??? BOHB 0.41 (*) 0.00 - 0.30 (mmol/L) DIFFERENTIAL, AUTOMATED Component Value Range ??? Neutrophils % 84.6 (*) 34.0 - 71.0 (%) ??? Neutr Abs (ANC) 10.85 (*) 1.50 - 6.30 (x10(3)/mcL) ??? Lymphocytes % 12.2 (*) 19.0 - 53.0 (%) ??? Lymphocytes Abs 1.6 1.0 - 3.6 (x10(3)/mcL) ??? Monocytes % 2.7 (*) 4.0 - 13.0 (%) ??? Monocyte Abs 0.3 0.2 - 1.0 (x10(3)/mcL) ??? Eosinophils % 0.2 0.0 - 7.0 (%) ??? Eosinophils Abs 0.0 0.0 - 0.5 (x10(3)/mcL) ??? Basophils % 0.1 0.0 - 2.0 (%) ??? Basophils Abs 0.0 0.0 - 0.2 (x10(3)/mcL) ??? Immature Gran % 0.20 0.00 - 0.66 (%) ??? Rebecca Gran Abs 0.03 0.00 - 0.05 (x10(3)/mcL) URINALYSIS WITH MICROSCOPIC Component Value Range ??? Glucose UA Negative Negative (mg/dL) ??? Protein UA Negative (mg/dL) ??? Bilirubin UA Negative Negative (mg/dL) ??? Urobilinogen UA Normal (mg/dL) ??? pH UA 6.5 5.0 - 8.0 ??? Blood UA Negative (mg/dL) ??? Ketones UA 40 (*) Neg (mg/dL) ??? Nitrite UA Negative ??? Leukocytes UA Negative (mcL) ??? Appearance UA Hazy (*) Clear ??? Spec Maurepas UA 1.014 1.002 - 1.030 ??? Color UA Yellow Yellow ??? RBC UA Not Present 0 - 4 ? ? WBC UA <1 0 - 5 (/HPF) ??? Bacteria UA Occasional (/HPF) ? ? Squam Epith UA 1 <=4 (/HPF) ??? Amorph Janet UA Occasional (/HPF) Assessment: 31 yo female 23 wk patient who has symptoms suggestive of gastroenteritis. The patient's history of DM and HTN on methyldopa made an evaluation for HELLP syndrome reasonable, and her lab work does not suggest this. Her vomiting and abdominal pain improved with fluids and anti-emetics, and the OB resident came down to see the patient as well. The patient's elevated beta hydroxybutyrate and ketones in the urine are consistent with her dehydration and will improve with D5. The plan will be to discharge the patient home with an earlier outpatient visit with OB. ED Course: Labs; IV fluids; Zofran ODT 4 mg; Bedside U/S; Gas Golf Cart Repairer consult; D5; Discharge home Wei Martin MD Resident 09/09/11 0697 ED ATTENDING NOTE: I reviewed Dr. Martin's note and agree with the lewis portions of the documented findings and plan of care. I performed an independent history and physical exam myself. I independently reviewed the labs. FHT 140's. [place] much better in the emergency Perman after above. Appropriate for discharge with Zofran ODT, precautions which return, encourage fluids and close Sivakumar Hopson MD 09/12/11 1607 Sivakumar Hopson MD 09/23/11 0030 * Esteban Mcmullen RN - 09/09/2011 2:18 AM EDT documented in this encounter Miscellaneous Notes * Discharge Summary - Provider, Scanning - 09/10/2011 9:46 AM EDT * Miscellaneous - Provider, Scanning - 09/09/2011 5:40 AM EDT * ED Triage - Esteban Mcmullen RN - 09/09/2011 2:14 AM EDT C/o nausea, vomiting, and mid abdominal pain which started at approx. 2230 last evening. 23 weeks . Denies fevers, chills. No vaginal bleeding documented in this encounter Plan of Treatment Not on file documented as of this encounter Procedures Procedure Name Priority Date/Time Associated Diagnosis Comments URINALYSIS WITH REFLEX CULTURE STAT 09/09/2011 4:13 AM EDT DIFFERENTIAL, AUTOMATED STAT 09/09/19 12 4:10 AM EDT BETA HYDROXYBUTYRATE Routine 09/09/2011 4:10 AM EDT CBC (WITH DIFF) STAT 09/09/2011 4:10 AM EDT COMPREHENSIVE METABOLIC PANEL (NON-FASTING) Routine 09/09/2011 4:10 AM EDT documented in this encounter Results * (ABNORMAL) Urinalysis with microscopic (09/09/2011 4:13 AM EDT) Glucose UA Negative Negative mg/dL CERNER MILLENNIUM Protein UA Negative mg/dL CERNER MILLENNIUM Bilirubin UA Negative Negative mg/dL CERNER MILLENNIUM Urobilinogen UA Normal mg/dL CERN ER MILLENNIUM pH UA 6.5 5.0 - 8.0 [facility]ERNER MILLENNIUM Blood UA Negative mg/dL CERNER MILLENNIUM Ketones UA 40(A) Neg mg/dL CERNER MILLENNIUM Nitrite UA Negative CERNER MILLENNIUM Leukocytes UA Negative mcL CERNER MILLENNIUM Appearance UA Hazy(A) Clear CERNER MILLENNIUM Spec Maurepas UA 1.014 1.002 - 1.030 CERNER MILLENNIUM Color UA Yellow Yellow CERNER MILLENNIUM RBC UA Not Present 0 - 4 CERNER MILLENNIUM WBC UA <1 0 - 5 /HPF CERNER MILLENNIUM Bacteria UA Occasional /HPF CERNER MILLENNIUM Squam Epith UA 1 <=4 /HPF CERNE R MILLENNIUM Amorph Janet UA Occasional /HPF CERN ER MILLENNIUM Urine specimen (specimen) 09/09/2011 4:13 AM EDT 09/09/2011 4:24 AM EDT Narrative Resulting Agency Comment Spec In Lab Sivakumar Hopson MD URINE ORDERABLES CERNER MILLENNIUM * (ABNORMAL) DIFFERENTIAL, AUTOMATED (09/09/2011 4:10 AM EDT) Neutrophils % 84.6(H) 34.0 - 71.0 % CERNER MILLENNIUM Neutr Abs (ANC) 10.85(H) 1.50 - 6.30 x10(3)/mc L CERNER MILLENNIUM Lymphocytes % 12.2(L) 19.0 - 53.0 % CERNER MILLENNIUM Lymphocytes Abs 1.6 1.0 - 3.6 x10(3)/mc L CERNER MILLENNIUM Monocytes % 2.7(L) 4.0 - 13.0 % CERNER MILLENNIUM Monocyte Abs 0.3 0.2 - 1.0 x10(3)/mc L CERNER MILLENNIUM Eosinophils % 0.2 0.0 - 7.0 % CERNER MILLENNIUM Eosinophils Abs 0.0 0.0 - 0.5 x10(3)/mc L CERNER MILLENNIUM Basophils % 0.1 0.0 - 2.0 % CERNER MILLENNIUM Basophils Abs 0.0 0.0 - 0.2 x10(3)/mc L CERNER MILLENNIUM Immature Gran % 0.20 0.00 - 0.66 % [facility] Comment: Immature granulocytes(IG's)percentage and absolute count will include metamyelocytes, myelocytes, and promyelocytes. Blood smears from CBCs yielding IG's will be scanned manually for concordance. If this scan disagrees with the automated IG or if promyelocytes are noted, a manual differential will be performed. Rebecca Gran Abs 0.03 0.00 - 0.05 x10(3)/mc L [facility] Blood specimen (specimen) 09/09/2011 4:10 AM EDT 09/09/2011 4:16 AM EDT Sivakumar Hopson MD HEMATOLOGY ORDERABLE S Performing Organization Address [facility] Co de Phone Number [facility] * (ABNORMAL) BETA HYDROXYBUTYRATE (09/09/2011 4:10 AM EDT) Pathologist [facility] BOHB 0.41(H) 0.00 - 0.30 mmol/L [facility] Comment: Reference range: ??0.00-0.30 mmo1/L, based on an overnight fast. ??Children may be higher. Blood specimen (specimen) 09/09/2011 4:10 AM EDT 09/09/2011 4:16 AM EDT Narrative Resulting Agency Comment Spec In Lab Sivakumar Hopson MD CHEMISTRY ORDERABLES Performing Organization Address [facility] Co de Phone Number [facility] * (ABNORMAL) Comprehensive metabolic panel (non-fasting) (09/09/2011 4:10 AM EDT) Glucose Lvl 117 60 - 199 mg/dL [facility] Comment:Diabetes: >=200 mg/d L plus symptoms BUN 7(L) 8 - 18 mg/dL CERNER MILLENNIUM Creatinine 0.37(L) 0.70 - 1.20 mg/dL CERNER MILLENNIUM Sodium 136 135 - 145 mmol/L CERNER MILLENNIUM Potassium 3.4(L) 3.5 - 5.0 mmol/L [facility]ERN[facility] MILLENNIUM Comment: Please note: ??Patients with WBC >100,000 may have falsely elevated Potassium levels. ??For accurate Potassium quantification in these patients send serum separator tube (gold top) for subsequent determinations. ??Contact the Clinical Chemistry Laboratory if there are any questions. Chloride 105 98 - 107 mmol/L CERNER MILLENNIUM CO2 22 22 - 31 mmol/L [facility]ERNER MILLENNIUM Anion Gap 9 5 - 15 mmol/L [facility]ERN[facility] MILLENNIUM Calcium 8.4(L) 8.5 - 10.5 mg/dL [facility] MILLENNIUM Total Protein 6.3(L) 6.4 - 8.3 gm/dL [facility]ERN[facility] MILLENNIUM Albumin 3.6 3.2 - 5.2 gm/dL CERNER MILLENNIUM AST 14 0 - 30 unit/L CERNER MILLENNIUM ALT 12 0 - 30 unit/L CERNER MILLENNIUM Alk Phos 49 40 - 104 unit/L CERNER MILLENNIUM Total Bilirubin 0.3 0.2 - 1.3 mg/dL CERNER MILLENNIUM Bili, Direct 0.1 0.0 - 0.3 mg/dL [facility]ERNER MILLENNIUM Estimated GFR >60 >=60 [...] J Am Soc Nephrol;6:1963-72. Blood specimen (specimen) 09/09/2011 4:10 AM EDT 09/09/2011 4:16 AM EDT Narrative Resulting Agency Comment Spec In Lab Sivakumar Hopson MD CHEMISTRY ORDERABLES [facility] * (ABNORMAL) CBC (with Diff) (09/09/2011 4:10 AM EDT) WBC 12.8(H) 4.0 - 10.0 x10(3)/mcL CERNER MILLENNIUM RBC 3.83(L) 3.93 - 5.22 x10(6)/mcL CERNER MILLENNIUM Hemoglobin 12.2 11.2 - 15.7 gm/dL CERNER MILLENNIUM Hematocrit 33.8(L) 34.0 - 45.0 % CERNER MILLENNIUM MCV 88.3 79.0 - 94.0 fL CERNER MILLENNIUM MCH 31.9 26.6 - 32.2 pg CERNER MILLENNIUM MCHC 36.1 32.0 - 36.5 gm/dL CERNER MILLENNIUM Platelets 167 145 - 370 x10(3)/mcL [facility] RDWSD 41.5 35.0 - 46.0 fL [facility] FERN[facility]NDEZI[facility] RDWCV 13.0 10.9 - 14.4 % [facility] FERN[facility]NDEZI[facility] MPV 9.6 9.0 - 12.0 fL [facility] Blood specimen (specimen) 09/09/2011 4:10 AM EDT 09/09/2011 4:16 AM EDT Narrative Resulting Agency Comment Spec In Lab Sivakumar Hopson MD HEMATOLOGY ORDERABLE S [facility]IL[facility] documented in this encounter Visit Diagnoses Diagnosis Nausea with vomiting , excessive vomiting Unspecified vomiting of , unspecified as to episode of care documented in this encounter Administered Medications Inactive Administered Medications - up to 3 most recent administrations Medication Order MAR Action Action Date Dose Rate Site dextrose 5% and sodium chloride 0.9% infusion 500 mL/hr, Intravenous, CONTINUOUS, Starting on Wed09/09/11 at 0515, Until Wed09/09/11 at 0939 New Bag 09/09/2011 5:15 AM EDT 500 mL/hr 500 mL/hr Right Arm ondansetron (ZOFRAN-ODT) oral disintegrating tablet 4 mg 4 mg, Oral, ONCE, 1 dose, On Wed09/09/11 at 0300, STAT Given 09/09/2011 3:00 AM EDT 4 mg sodium chloride 0.9 % flush 5 mL 5 mL, Intravenous, EVERY 12 HOURS, First dose on Wed09/09/11 at 0300, Until Discontinued Given 09/09/2011 3:00 AM EDT 5 mLs sodium chloride 0.9% 1,000 mL infusion at 150 mL/hr, Intravenous, CONTINUOUS, Starting on Wed09/09/11 at 0300, Until Wed09/09/11 at 0939 New Bag 09/09/2011 3:00 AM EDT 150 mL/hr Right Arm documented in this encounter Active and Recently Administered Medications Times are shown in EDT. Scheduled Medication Order 09/07/2011 09/08/2011 09/09/2011 ondansetron (ZOFRAN-ODT) oral disintegrating tablet 4 mg (COMPLETED) 4 mg, Oral, ONCE, 1 dose, On Wed09/09/11 at 0300, STAT 0300 (Given - Provid er: Esteban Mcmullen RN) sodium chloride 0.9 % flush 5 mL (CANCELED) 5 mL, Intravenous, EVERY 12 HOURS, First dose on Wed09/09/11 at 0300, Until Discontinued 0300 (Given - Provid er: Esteban Mcmullen RN) Continuous Medication Order 09/07/2011 09/08/2011 09/09/2011 dextrose 5% and sodium chloride 0.9% infusion (CANCELED) 500 mL/hr, Intravenous, CONTINUOUS, Starting on Wed09/09/11 at 0515, Until Wed09/09/11 at 0939 0515 (New Bag - Prov ider: Esteban Mcmullen RN) sodium chloride 0.9% 1,000 mL infusion (CANCELED) at 150 mL/hr, Intravenous, CONTINUOUS, Starting on Wed09/09/11 at 0300, Until Wed09/09/11 at 0939 0300 (New Bag - Prov ider: Esteban Mcmullen RN) documented in this encounter Care Teams Merchant Patroller Relationship Specialty Start Date End Date Dav Carlos MD PCP - General 10/01/10 11/30/12 documented as of this encounter
--- OUTSIDE RECORDS SUMMARY | 2023-10-28 21:40 | XMS_ITS | Encounter Summary ---
Author Organization [facility] [place] [address] Care Team Providers Care Steamboat Inspector Name Role Phone Dav Carlos MD Primary Care Provider [phone] Reason for Visit * Reason Comments Non-stress Test Type II diabetes Encounter Details Date Type Department Care Team (Latest Contact Info) Description 12/15/2011 9:00 AM EDT Routine Obstetrics and Gynecology at [facility], [place] [id number] Alexandre Powers, RN GA: [id number] Discharge Disposition: Home Social History Tobacco Use [...] Sign Reading Time Taken Comments Blood Pressure 128/76 12/15/2011 5:02 PM EDT Pulse - - Temperature - - Respiratory Rate - - Oxygen Saturation - - Inhaled Oxygen Concentration - - Weight 126 kg (277 lb 11.2 oz) 12/15/2011 5:02 P M EDT Height - - Body Mass Index 46.21 05/14/2011 9:46 AM EST documented in this encounter Progress Notes * Alexandre Powers RN - 12/15/2011 5:13 PM EDT Patient seen today for routine NST d/t Type II diabetes. She reports looking forward to delivery. Blood glucose control is good. She denies any bleeding, leaking or regular contractions. Patient has appointment for later this week for amnio. documented in this encounter Plan of Treatment Not on file documented as of this encounter Visit Diagnoses Diagnosis Supervision of high-risk Unspecified high-risk Previous section Other postprocedural status Carrier of group B Streptococcus Carrier or suspected carrier of Group B streptococcus Obesity in Obesity complicating , childbirth, or the puerperium, unspecified as to episode of care or not applicable Hypertension Unspecified essential hypertension Diabetes mellitus Type II or unspecified type diabetes mellitus without mention of complication, not stated as uncontrolled documented in this encounter Care Teams Steamboat Inspector Relationship Specialty Start Date End Date Dav Carlos MD PCP - General 10/01/10 11/30/12 documented as of this encounter
--- OUTSIDE RECORDS SUMMARY | 2023-10-28 21:40 | XMS_ITS | Encounter Summary ---
Author Organization [facility] [place] [address] Care Team Providers Care Farmworker Rice Name Role Phone Dav Carlos MD Primary Care Provider [phone] Encounter Details Date Type Department Care Team (Latest Contact Info) Description 12/18/2011 8:45 AM EDT - 12/18/2011 9:44 AM EDT Hospital Encounter Ultrasound [facility] [place] [phone] Unspecified high-risk Social History Tobacco Use Types [...] Diagnosis Comments US OB FOLLOW UP Routine 12/18/2011 9:26 AM EDT Unspecified high-risk documented in this encounter Results * US OB follow up evaluation (12/18/2011 9:26 AM EDT) Anatomical Region Laterality Modality Pelvis, Abdomen Ultrasound 12/18/2011 9:26 AM EDT Narrative 12/18/2011 11:16 AM EDT ? OBSTETRICS REPORT ? (Signed Final 12/18/2011 11:15 am) Patient Info ID: ?[id number] ?: ??[birth year] (31 yrs) Name: ?MIGDALIA MOREIRA ?Visit Date: 12/18/2011 08:57 am Performed By Performed By: ?Melissa Villareal RDMS Attending: ? Lisette Elise MD ??Valerie Referred By: ? MARILYN HOUSE MD Service(s) Provided UOBFOL - Efw - Growth - Reevaluation - Bermudez ?[id number] - [phone] Indications Reason for exam and clinical history: [...] Final 12/18/2011 11:15 am) Patient Info ID: [id number] : [birth year] (31 yrs) Name: MIGDALIA MOREIRA Visit Date: 12/18/2011 08:57 am Performed By Performed By: Melissa Villareal [facility] Attending: Lisette Elise MD Referred By: MARILYN HOUSE MD Service(s) Provided UOBFOL - Efw - Growth - Reevaluation - [place]z [id number] - [phone] Indications Reason for exam and clinical history: [...] high-risk documented in this encounter Care Teams Farmworker Rice Relationship Specialty Start Date End Date Dav Carlos MD PCP - General 10/01/10 11/30/12 documented as of this encounter
--- OUTSIDE RECORDS SUMMARY | 2023-10-28 21:41 | XMS_ITS | Encounter Summary ---
Author Organization [facility] [place] [address] Care Team Providers Care Business Unit Director Name Role Phone Unavailable Primary Care Provider Unavailabl e Encounter Details Date Type Department Care Team ([facility] st Contact Info) Description 03/03/2010 11:30 AM EST Follow-Up Obstetrics [place] [address] Alina Krishna MD [facility] DR OBSTETRICS [place] [address] Social History Tobacco Use Types Packs/Day Years Used Date Smoking Tobacco: Never Assessed Sex and Gender Information Value Date Recorded Sex Assigned at Not on file Gender Identity Female 12/01/2018 2:55 PM EDT Sexual Orientation Not on file documented as of this encounter Plan of Treatment Not on file documented as of this encounter Visit Diagnoses Not on filedocumented in this encounter
--- OUTSIDE RECORDS SUMMARY | 2023-10-28 21:41 | XMS_ITS | Encounter Summary ---
Author Organization [facility]onica [facility] [place] [address] Care Team Providers Care Adjuster And Inspector Name Role Phone Dav Carlos MD Primary Care Provider [phone] Reason for Visit * Reason Comments Hypersomnia Obstructive Sleep Apnea Encounter Details Date Type Department Care Team ([facility] st Contact Info) Description 12/11/2010 8:30 AM EDT Follow-[place] [address] Marleen Taylor MD [facility] [place] [address] CADY (obstructive sleep apnea) (Primary Dx) Social History Tobacco Use Types Packs/Day Years Used Date Smoking Tobacco: Never Smokeless Tobacco: Never Alcohol Use Standard Drinks/Week Comments Yes 0 (1 standard drink = 0.6 oz pur e alcohol) rarely Sex and Gender Information Value Date Recorded Sex Assigned at Not on file Gender Identity Female 12/01/2018 2:55 PM EDT Sexual Orientation Not on file documented as of this encounter Last Filed Vital Signs Vital Sign Reading Time Taken Comments Blood Pressure 119/87 12/11/2010 9:54 AM EDT Pulse 76 12/11/2010 9:54 AM EDT Temperature - - Respiratory Rate - - Oxygen Saturation - - Inhaled Oxygen Concentration - - Weight 115.1 kg (253 lb 12.8 oz) 12/11/2010 9:54 AM EDT Height 164.5 cm (5' 4.75) 12/11/2010 9:54 AM ED T Body Mass Index 42.56 12/11/2010 9:54 AM EDT documented in this encounter Progress Notes * Marleen Taylor MD - 12/11/2010 9:58 AM EDT Sleep Medicine Follow-Up Note (postPSG) HPI: Sarah Cantu was referred for PSG due to suspicion of CADY in the setting of major medical co-morbidities and a high clinical suspicion of CADY. A overnight PSG documented evidence of significantOSA with frequent arousal based hypopneas fragmenting of sleep. Events were worse supine and duringREM sleep. Oxygen saturations were well maintained. CPAP was not applied. The results were discussed in detail. The patient reports ongoing symptoms as reviewed by Dr. Bustamante's note. She denies any new medical issues or changes since her last visit. Past Medical History Diagnosis Date ??? Diabetes mellitus ??? Hypertension ??? Depression ??? GERD (gastroesophageal reflux disease) ??? Headache ??? Obesity Past Surgical History Procedure Date ??? Created by interface -BP / URGENT Procedure Date: 02/26/2006 ??? Created by interface Cholecystectomy Procedure Date: Feb 2005 ??? Created by interface INCISION & DRAINAGE (ENT) / PERITONSILLAR Procedure Date: 07/12/1998 ??? Cholecystectomy ??? Tonsillectomy ??? section Family History Problem Relation Age of Onset ??? Diabetes Mother ??? Cancer Father ??? Sleep Apnea Sister ??? Sleep Apnea Paternal Aunt Social History: 30 y.o. 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 She drinks alcohol. Consumes 1 cups of coffee. PE: Filed Vitals: 12/11/10 0954 BP: 119/87 Pulse: 76 Height: 164.5 cm (5' 4.75) Weight: 115.123 kg (253 lb 12.8 oz) General: Alert, pleasant woman Pul: Respirations: NAD Assessment/Plan: Sarah Cantu is a 30 yo female whose PSG demonstrates significant CADY. In the clinical setting of medical co-morbities and daytimes sleepiness, CPAP is the recommended modality of treatment. She is agreeable and will return for a CPAP titration. Diagnostic Codes: CADY 327.23 Time spent face to face: 15 min Time spent devoted to counseling and discussion: 10min Marleen Taylor MD documented in this encounter Plan of Treatment Not on file documented as of this encounter Visit Diagnoses Diagnosis CADY (obstructive sleep apnea)- Primary Obstructive sleep apnea (adult) (pediatric) documented in this encounter Care Teams Adjuster And Inspector Relationship Specialty Start Date End Date Dav Carlos MD PCP - General 10/01/10 11/30/12 documented as of this encounter
--- OUTSIDE RECORDS SUMMARY | 2023-10-28 21:41 | XMS_ITS | Encounter Summary ---
Author Organization [facility] Address [address] [place] [address] Care Team Providers Care Impregnator And Drier Name Role Phone Unknown, Provider Primary Care Provider [phone] Trice Holman Primary Care Provider [phone] Encounter Details Date Type Department Care Team (Late st Contact Info) Description 09/12/2022 Lab Requisition [facility] Pathology & Laboratory Medicine - [facility] [address] [place] [address] Outr Resulting Lab, Provider Social History Tobacco Use Types Packs/Day Years Used Date Smoking Tobacco: Never Assessed Sex and Gender Information Value Date Recorded Sex Assigned at Not on file Gender Identity Not on file Sexual Orientation Not on file documented as of this encounter Plan of Treatment Not on file documented as of this encounter Procedures Procedure Name Priority Date/Time Associated Diagnosis Comments SYPHILIS SEROLOGY Routine 09/11/2022 12: 04 EDT HEPATITIS C AB W REFLEX TO HCV RNA BY PCR Routine 09/11/2022 12:04 EDT documented in this encounter Results * SYPHILIS SEROLOGY (09/11/2022 12:04 EDT) Syphilis Serology Negative Negative 09/14/2022 10:09 EDT [facility] Blood VENOUS BLOOD / Unknown 09/11/2022 12:04 EDT 09/12/2022 21:24 EDT Provider Outr Resulting Lab IMMUNOLOGY A ND SEROLOGY ORDERABLES Performing Organization Address City/[facility]/ZIP Co de Phone Number [facility] [address] [place] [address] * HEPATITIS C AB W REFLEX TO HCV RNA BY PCR (09/11/2022 12:04 EDT) Hep C Antibody Negative Negative 09/14/2022 10:09 EDT [facility] Blood VENOUS BLOOD / Unknown 09/11/2022 12:04 EDT 09/12/2022 21:24 EDT Provider Outr Resulting Lab CHEMISTRY & BLOOD GAS ORDERABLES Performing Organization Address City/[facility] Co de Phone Number [facility] [address] [place] [address] documented in this encounter Visit Diagnoses Not on filedocumented in this encounter Care Teams Impregnator And Drier Relationship Specialty Start Date End Date Unknown, Provider, PCP - General 02/20/15 01/16/23 [place] [address] PCP - General 01/17/23 documented as of this encounter
--- OUTSIDE RECORDS SUMMARY | 2023-10-28 21:41 | XMS_ITS | Encounter Summary ---
Author Organization [facility] Address [address] [place] [address] Care Team Providers Care Header Dock Name Role Phone Unavailable Primary Care Provider Unavailabl e Encounter Details Date Type Department Care Team (Late st Contact Info) Description 02/18/2005 Results Only [facility] [address] [place] [address] Benedict Corona MD [address] [place] [address] Social History Tobacco Use Types Packs/Day Years Used Date Smoking Tobacco: Never Assessed Sex and Gender Information Value Date Recorded Sex Assigned at Not on file Gender Identity Not on file Sexual Orientation Not on file documented as of this encounter Plan of Treatment Not on file documented as of this encounter Procedures Procedure Name Priority Date/Time Associated Diagnosis Comments SURGICAL PATHOLOGY Routine 02/18/2005 0:00 EST documented in this encounter Results * SURGICAL PATHOLOGY (02/18/2005 0:00 EST) Pathology Report: SURGICAL PATHOLOGY REPORT Reports generated via electronic interface contain original data; however they are lacking the format of the original report. Caution should be taken when reading/interpreti ng unformatted reports. Name: ? MIGDALIA MONCADA ? Accession #: ? [id number] ? : ? 1980 (Age: 24) ??F ? Collect Date: ? 02/18/2005 ? Location: ? [facility] ? Receive Date: ? 02/18/2005 ? Provider: BENEDICT CORONA MD Copy to: ? Final Pathologic Diagnosis: ? Gallbladder, cholecystectomy: 1. ?Cholelithiasis. 2. ?Chronic cholecystitis. 3. ?Cholesterolosis. 4. ?One benign lymph node. Document reviewed and electronically signed by: NOY PLATA MD Report ??Date: 02/20/2005 15:54 By the signature above, the attending physician certifies that he/she has personally conducted a gross and/or microscopic examination of the described specimens and rendered or confirmed the above diagnosis. Specimen(s) Received: ? Gallbladder Clinical History: ? Epigastric & upper quadrant pain; cholelithiasis Gross Description: ? Received in formalin labelled Antwan and gallbladder is a unopened gallbladder measuring 8.0 cm from cystic duct to fundus by 2.8 x 2.8 cm. ??The serosal surface is corona-pink, smooth and glistening. The pericystic duct lymph node is present and measures 0.8 x 0.5 x 0.3 cm. ??The node is bisected revealing homogeneous corona-pink tissue. ??The gallbladder is open revealing multiple uniform polyhedral green-yellow stones all of them measuring approximately 0.6 x 0.5 x 0.5 cm. ??Several of the stones are impacted into the cystic duct which measures 0.8 cm in length and 1.0 cm in inner circumference. The gallbladder mucosa is red-corona and velvety with small flecks of bright yellow. The gallbladder measures 7.5 cm in maximum inner circumference. The gallbladder wall measures 0.2 cm in maximum thickness. Design Engineer Agricultural Equipment sections are submitted as follows: BLOCK DE LA ROSA A1 ?Cystic duct node bisected A2 ?Design Engineer [employer] sections of cystic duct surgical margin, body and fundus (Dr. Acevedo)/[facility] End of Report [facility] 02/18/2005 02/18/2005 15: 17 EST Benedict Corona MD PATHOLOGY ORDERABLES [facility] [address] [place] [address] documented in this encounter Visit Diagnoses Not on filedocumented in this encounter
--- OUTSIDE RECORDS SUMMARY | 2023-10-28 21:41 | XMS_ITS | Encounter Summary ---
Author Organization [facility] Address [address] [place] [address] Care Team Providers Care Wetlands Conservation Laborer Name Role Phone Unavailable Primary Care Provider Unavailabl e Encounter Details Date Type Department Care Team (Late st Contact Info) Description 05/28/2005 Results Only [facility] [address] [place] [address] Neda Barger, [facility] [address] [place] [phone] Social History Tobacco Use Types Packs/Day Years Used Date Smoking Tobacco: Never Assessed Sex and Gender Information Value Date Recorded Sex Assigned at Not on file Gender Identity Not on file Sexual Orientation Not on file documented as of this encounter Plan of Treatment Not on file documented as of this encounter Procedures Procedure Name Priority Date/Time Associated Diagnosis Comments HPV DETECTION, HIGH RISK TYPES Routine 05/28/2005 11:58 EST CYTOPATHOLOGY Routine 05/28/2005 0:00 EST documented in this encounter Results * HUMAN PAPILLOMA VIRUS DNA TEST (05/28/2005 11:58 EST) Specimen Description Cervix, ThinPrep vial [facility] Result Positive for one or more of HPV types 16,18,31,33,35 ,39,45,51,52,5 6,58,59, or 68. These high/intermedi ate risk HPV types are associated with dysplasia and some cervical cancers. [facility] Report Status Final [id number] [facility] 05/28/2005 11:5 8 EST 06/08/2005 9:07 EST Neda Barger [employer] MICROBIOLOGY - GENER AL ORDERABLES [facility] [address] [place] [address] * CYTOPATHOLOGY (05/28/2005 0:00 EST) Pathology Report: CYTOPATHOLOGY REPORT Reports generated via electronic interface contain original data; however they are lacking the format of the original report. Caution should be taken when reading/interpreti ng unformatted reports. Name: ? MIGDALIA GOLDSMITH ? Accession #: ? [id number] : ? 1980 (Age: 25) ??F ?Collect Date: ? 05/28/2005 Location: ? [facility] ? Receive Date: ? 05/29/2005 Provider: ?NEDA BARGER ROCK CUTTER Copy to: ? Specimen/Source: ?ThinPrep Pap Test, Cervix/Endocervix, processed on [employer] ThinPrep Imaging System, with manual evaluation Last Menstrual Period: ? 05/05/05 Other: ? HPVA - HPV testing requested if ASC-US on the current ThinPrep Pap test. ? SPECIMEN ADEQUACY ? Satisfactory for Evaluation - transformation zone component present GENERAL CATEGORIZATION ? Epithelial Cell Abnormality INTERPRETATION ? Squamous Cell Abnormality - Atypical squamous cells, undetermined significance. EDUCATIONAL NOTES/RECOMMENDATI ONS ? [facility] recommends following the 2001 Consensus Guidelines for the Management of Women with Cervical Cytological Abnormalities (PATRICA,2002;287:212 0-9). Management algorithms have been distributed by [facility] and are available online at www.ASCCP.org. ? Document reviewed and electronically signed by: ? MAIA OVALLE MD ? Report Date: ??06/06/2005 15:30 End of Report [facility] 05/28/2005 05/29/2005 Neda Barger [employer] PATHOLOGY ORDERABLES [facility] [address] [place] [address] documented in this encounter Visit Diagnoses Not on filedocumented in this encounter
--- OUTSIDE RECORDS SUMMARY | 2023-10-28 21:41 | XMS_ITS | Encounter Summary ---
Author Organization [facility] [address] [address] Care Team Providers Care Hospital Cook Name Role Phone Dav Carlos MD Primary Care Provider [phone] Reason for Visit * Reason Comments Hypersomnia Encounter Details Date Type Department Care Team ([facility] Contact Info) Description 12/10/2010 8:00 PM EDT Procedure [place] [address] Marleen Taylor MD [facility] [place] [address] CADY (obstructive sleep apnea) (Primary Dx) Social [...] Sign Reading Time Taken Comments Blood Pressure 136/98 12/11/2010 9:27 AM EDT Pulse 72 12/11/2010 9:27 AM EDT Temperature - - Respiratory Rate 16 12/11/2010 9:27 AM EDT Oxygen Saturation - - Inhaled Oxygen Concentration - - Weight 115.1 kg (253 lb 12.8 oz) 12/11/2010 9:27 AM EDT Height 164.5 cm (5' 4.75) 12/11/2010 9:27 AM ED T Body Mass Index 42.56 12/11/2010 9:27 AM EDT documented in this encounter Progress Notes * Marleen Taylor MD - 12/11/2010 9:51 AM EDT REPORT OF DIAGNOSTIC POLYSOMNOGRAM History Of Present Illness: Sarah Cantu is a 30 [address] Dr[address] Bustamante for daytime sleepiness and snoring. She was referred for overnight PSG to confirm the diagnostic suspicion of CADY. She has major medical co morbities including DM and HTN. Polysomnography: The patient's sleep was [facility] Sleep was monitored in accordance with recommended AASM guidelines. The recording also included oral/nasal airflow, chest and abdominal respiratory effort, nasal pressure, single channel EKG, intercostalEMG, bilateral tibialis EMG, and oxygen saturation (by pulse oximeter). Comment: - Sleep/EEG: All stages of sleep were seen in both the lateral and supine positions. Four distinct episodes of REM sleep was seen. No major EEG abnormalities were identified. - Respiratory: Obstructive sleep apnea of a moderate degree was noted (AHI 19.7) with mild desaturations but frequent arousals. Events were worse in the supine position and during REM sleep. - EKG: Normal sinus rhythm was seen throughout the study. - EMG: Unremarkable. On the post study questionnaire, the patient reported sleep slightly better and feels average in the morning. Overall the technical quality of the study was good. Assessment: The overnight study demonstrates significant CADY, mainly in the form of arousal based hypopneic events, associated with daytime sleepiness, insomnia symptoms, and medical co-morbidities. Study results relayed to patient as well as the pathophysiology of, reasons to treat and treatment options for obstructive sleep apnea. I would recommend she return for a CPAP titration and she is in agreement. ICSD diagnosis (code) 327.23 Provisional: Final: Obstructive sleep apnea. Recommendations: 1. CPAP trial Marleen Taylor MD Patient Name Sarah Cantu Study Date: 12/10/2010 Sex: Female Subject Code: [id number] Date of : 1980 Referring Physician: Dav Carlos M.D. Age: 30 Sleep Specialist: Marleen Taylor M.D. Height: 64.8 Recording Tech: EG Weight: 253.8 Scoring Tech: NCote B.M.I: 42.6 Ectopy: EKG: Sinus Arrhythmia Sleep Architecture Start Time: Lights Off: 9:34:23 PM End Time: Lights On: 6:26:48 AM Total Recording Time (TRT): 532.4 Total Sleep Period (TSP): 524.5 Total Sleep Time (TST): 519.0 Sleep Efficiency: 97.5% Sleep Onset: 7.9 Total Stage Shifts: 63 WASO: 5.5 Total Awakenings: 11 REM Periods: 4 REM Latency: 75.5 REM Latency (minus Wake time): 74.0 Stage Results Time (min.) % TST Latency (min.) Wake (after sleep onset): 5.5 - - Stage N1: 10.0 1.9% 0.0 Stage N2: 331.0 63.8% 1.5 Stage N3: 85.0 16.4% 21.5 REM: 93.0 17.9% 75.5 Respiratory Events Central Obstructive Mixed Total Apnea Apnea Apnea Apneas RERA Count: 20 3 0 23 2 Index (events/hr.): 2.3 0.3 0.0 2.7 0.2 Mean Duration (sec.): 13.7 14.0 N/A 13.8 10.0 Longest Event (sec.): 23.0 17.3 N/A 23.0 10.0 REM Count: 1 0 0 1 0 NREM Count: 19 3 0 22 2 REM Index: 0.6 0.0 0.0 0.6 0.0 NREM Index: 2.7 0.4 0.0 3.1 0.3 Respiratory Events (cont) Hypopneas Hypopneas Apneas + OD 4% OD 3%/AR Hypopneas Count: 45 102 170 Index (events/hr.): 5.2 11.8 19.7 Mean Duration (sec.): 23.6 21.4 20.9 Longest Event (sec.): 45.6 47.6 47.6 REM Count: 18 15 34 NREM Count: 27 87 136 REM Index: 11.6 9.7 21.9 NREM Index: 3.8 12.3 19.2 Respiratory Body Position Supine Supine Prone Prone Left Body Position Count Index Count Index Count Duration: 4:10:21 0:00:00 2:36:58 Obstructive Apneas: 2 0.5 N/A N/A 1 Central Apneas: 10 2.4 N/A N/A 8 Mixed Apneas: 0 0.0 N/A N/A 0 Hypopnea OD 4%: 29 7.0 N/A N/A 3 Hypopnea OD 3%: 74 17.7 N/A N/A 15 RERA???s: 2 0.5 N/A N/A 0 Total: 117 28.0 N/A N/A 27 Respiratory Events Events Left Right Right Upright Upright Body Position (cont) Index Count Index Count Index Duration: 1:51:39 0:00:00 Obstructive Apneas: 0.4 0 0.0 N/A N/A Central Apneas: 3.1 2 1.1 N/A N/A Mixed Apneas: 0.0 0 0.0 N/A N/A Hypopnea OD 4%: 1.1 13 7.0 N/A N/A Hypopnea OD 3%: 5.7 13 7.0 N/A N/A RERA???s: 0.0 0 0.0 N/A N/A Total: 10.3 28 15.0 N/A N/A Body Position Supine Prone Left Right Upright Duration (Min): 250.4 0.0 157.0 111.6 0.0 % TST: 48.2% 0.0% 30.2% 21.5% 0.0% Respiratory Arousals Total NREM REM Respiratory Count: 160 127 33 Respiratory Index (events/hr): 18.5 17.9 21.3 Spontaneous Count: 106 72 34 Spontaneous Index (events/hr): 12.3 10.1 21.9 Total Count: 283 216 67 Total Index (events/hr): 32.7 30.4 43.2 Limb Movements LMs w Arousals LMs w/o Arousals Total LMs (by Sleep Stages) Count Index Count Index Count Index Total Sleep: 17 2.0 46 5.3 63 7.3 N1: 1 6.0 2 12.0 3 18.0 N2: 16 2.9 43 7.8 59 10.7 N3: 0 0.0 1 0.7 1 0.7 REM: 0 0.0 0 0.0 0 0.0 Oxygen Desaturation Count Index Total Sleep Time: 56 6.5 Wake (after sleep onset): 0 0.0 Non-REM: 33 4.6 REM: 23 4.6 Total Recording Time: 56 6.3 Oxygen Saturation Wake NREM REM TST TIB Mean SaO2%: 96.7 96.6 97.1 96.7 96.7 Min. SaO2%: 92.0 89.0 90.0 89.0 89.0 Max. SaO2%: 100.0 100.0 100.0 100.0 100.0 SaO2 < 89% (min): 0.0 0.0 0.0 0.0 0.0 SaO2 < 88% (min): 0.0 0.0 0.0 0.0 0.0 % Time of SaO2 in range 90 - 100%: 100.0% 100.0% 100.0% 100.0% 100.0% 80 - 90%: 0.0% 0.0% 0.0% 0.0% 0.0% 70 - 80%: 0.0% 0.0% 0.0% 0.0% 0.0% 60 - 70%: 0.0% 0.0% 0.0% 0.0% 0.0% 50 - 60%: 0.0% 0.0% 0.0% 0.0% 0.0% ? 50%: 0.0% 0.0% 0.0% 0.0% 0.0% % Artifact / Bad Data: 0.0% 0.0% 0.0% 0.0% 0.0% Heart Rate Wake NREM REM TST TIB Mean HR (bpm): 63.9 56.6 62.6 57.7 57.8 Min. HR (bpm): 52.0 17.0 49.0 17.0 17.0 Max. HR (bpm): 92.0 97.0 94.0 97.0 97.0 % Time in range > 100 (bpm): 0.0% 0.0% 0.0% 0.0% 0.0% 90 - 100 (bpm): 1.0% 0.0% 0.1% 0.1% 0.1% 80 - 90 (bpm): 7.9% 0.3% 0.9% 0.5% 0.6% 70 - 80 (bpm): 12.2% 1.0% 10.5% 2.7% 2.9% 60 - 70 (bpm): 25.3% 13.3% 45.7% 19.1% 19.2% 50 - 60 (bpm): 53.6% 77.9% 42.4% 71.5% 71.1% ? 50 (bpm): 0.0% 7.5% 0.4% 6.2% 6.1% % Artifact / Bad Data: 0.0% 0.0% 0.0% 0.0% 0.0% documented in this encounter Plan of Treatment Not on file documented as of this encounter Visit Diagnoses Diagnosis CADY (obstructive sleep apnea)- Primary Obstructive sleep apnea (adult) (pediatric) documented in this encounter Care Teams Hospital Cook Relationship Specialty Start Date End Date Dav Carlos MD PCP - General 10/01/10 11/30/12 documented as of this encounter
--- OUTSIDE RECORDS SUMMARY | 2023-10-28 21:41 | XMS_ITS | Encounter Summary ---
Author Organization [facility] [place] [address] Care Team Providers Care Stone And Plate Preparer Apprentice Name Role Phone Dav Carlos MD Primary Care Provider [phone] Reason for Visit * Reason Comments Routine Visit Encounter Details Date Type Department Care Team ([facility] st Contact Info) Description 05/29/2011 11:30 AM EST Routine Obstetrics [place] [id number] CLINIC, Marilyn Benites MD [facility] OBSTETRICS & [place] [address] GA: [id number] Social History Tobacco Use Types Packs/Day Years [...] Sign Reading Time Taken Comments Blood Pressure 114/74 05/29/2011 11:16 AM EST Pulse - - Temperature - - Respiratory Rate - - Oxygen Saturation - - Inhaled Oxygen Concentration - - Weight 116.5 kg (256 lb 12.8 oz) 2011 11:16 AM EST Height - - Body Mass Index 42.73 05/14/2011 9:46 AM EST documented in this encounter Progress Notes * Marilyn Reilly MD - 05/29/2011 11:59 AM EST Insulin NPH 15 u am, 10 novalog am, dinner 10u dinner, 15u NPH at HS. Glucose log fasting 51-123. 1hr pp 101-208. Will increase NPH am to 18u. Will hold on increasing evening NPH due to fasting 51 today. Taking aldomet. Needs 24 hr urine protein next visit ordered today but patient not aware. labs, HIV, T+S, HgA1c today. F/u 2 weeks. Will call in 3 days with glucose results to allow increase in evening NPH. documented in this encounter Plan of Treatment Not on file documented as of this encounter Procedures Procedure Name Priority Date/Time Associated Diagnosis Comments DIFFERENTIAL, AUTOMATED Routine 05/29/19 12 12:38 PM EST CREATININE Routine 05/29/2011 12:38 PM EST Unspecified high-risk SYPHILIS ANTIBODY SCREEN WITH REFLEX Routine 05/29/2011 12:38 PM EST Unspecified high-risk ABO/RH TYPING Routine 05/29/2011 12:38 PM EST Unspecified high-risk RUBELLA ANTIBODY, IGG Routine 05/29/2011 12:38 PM EST Unspecified high-risk HIV SCREEN, 4TH GENERATION ([facility]/CGP/APD/NLH) Routine 05/29/2011 12:38 PM EST Unspecified high-risk HEPATITIS B SURFACE ANTIGEN Routine 05/29/2011 12:38 PM EST Unspecified high-risk CBC (WITH DIFF) Routine 05/29/2011 12:38 PM EST Unspecified high-risk ANTIBODY SCREEN Routine 05/29/2011 12:38 PM EST Unspecified high-risk ASPARTATE AMINOTRANSFERASE Routine 05/29/2011 12:38 PM EST Unspecified high-risk HEMOGLOBIN A1C Routine 05/29/2011 12:38 PM EST Unspecified high-risk SCREEN ([facility]/CGP) Routine 05/29/2011 12:27 PM EST Unspecified high-risk GC/CHLAMYDIA Routine 05/29/2011 11:45 AM EST Unspecified high-risk GC/CHLAM Routine 05/29/2011 11:45 AM EST Unspecified high-risk CYTOPATHOLOGY GYNECOLOGICAL Routine 05/29/2011 11:45 AM EST Unspecified high-risk documented in this encounter Results * (ABNORMAL) Protein, urine, 24 hour (07/15/2011 7:45 AM EDT) U24 Prot Conc <6 <=80 mg/dL CERNE R MILLENNIUM U24 Prot Calc <0.18(H) <=0.15 gm/24hr CERNER MILLENNIUM Urine specimen (specimen) 07/15/2011 7:45 AM EDT 07/16/2011 2:32 PM EDT Narrative Resulting Agency Comment Spec In Lab Marilyn Reilly MD URINE ORDERABLES CERNER MILLENNIUM * DIFFERENTIAL, AUTOMATED (05/29/2011 12:38 PM EST) Neutrophils % 59.8 34.0 - 71.0 % CERNER MILLENNIUM Neutr Abs (ANC) 6.11 1.50 - 6.30 x10(3)/mcL CERNER MILLENNIUM Lymphocytes % 33.2 19.0 - 53.0 % CERNER MILLENNIUM Lymphocytes Abs 3.4 1.0 - 3.6 x10(3)/mcL CERNER MILLENNIUM Monocytes % 5.6 4.0 - 13.0 % CERNER MILLENNIUM Monocyte Abs 0.6 0.2 - 1.0 x10(3)/mcL CERNER MILLENNIUM Eosinophils % 0.9 0.0 - 7.0 % CERNER MILLENNIUM Eosinophils Abs 0.1 0.0 - 0.5 x10(3)/mcL CERNER MILLENNIUM Basophils % 0.2 0.0 - 2.0 % CERNER MILLENNIUM Basophils Abs 0.0 0.0 - 0.2 x10(3)/mcL CERNER MILLENNIUM Immature Gran % 0.30 0.00 - 0.66 % CERNER MILLENNIUM Comment: Immature granulocytes(IG's)percentage and absolute count will include metamyelocytes, myelocytes, and promyelocytes. Blood smears from CBCs yielding IG's will be scanned manually for concordance. If this scan disagrees with the automated IG or if promyelocytes are noted, a manual differential will be performed. Rebecca Gran Abs 0.03 0.00 - 0.05 x10(3)/mcL CERNER MILLENNIUM Blood specimen (specimen) 05/29/2011 12:38 PM EST 05/29/2011 12:40 PM EST Marilyn Reilly MD HEMATOLOGY ORDERAB LES ANA LILLYENNIUM * ANTIBODY SCREEN (05/29/2011 12:38 PM EST) Ab Screen Interp Negative CERNER MAXXENNIUM Expires at [id number] on: [id number] CERNER MILLENNIUM Blood specimen (specimen) 05/29/2011 12:38 PM EST 05/29/2011 12:43 PM EST Marilyn Reilly MD BLOOD BANK LAB ORD ERABLES Performing Organization Address City/[facility]/ZIP Co de Phone Number [facility] JOLENE[facility] * ABO/RH TYPING (05/29/2011 12:38 PM EST) ABORH Type A Neg CERNER MILLENNIUM Blood specimen (specimen) 05/29/2011 12:38 PM EST 05/29/2011 12:43 PM EST Marilyn Reilly MD BLOOD BANK LAB ORD ERABLES [facility] MAXXENNIUM * (ABNORMAL) RUBELLA ANTIBODY, IGG (05/29/2011 12:38 PM EST) Rubella IgG Negative( A) Positive CERNER MILLENNIUM Comment: Please note: ??A positive result for this assay indicates that antibody levels are >or= 10.0 IU/mL and is considered to be an indicator of positive immune status. Blood specimen (specimen) 05/29/2011 12:38 PM EST 05/29/2011 12:40 PM EST Marilyn Reilly MD IMMUNOLOGY ORDERAB LES Performing Organization Address [facility] de Phone Number [facility] MILLENNIUM * HEPATITIS B SURFACE ANTIGEN (05/29/2011 12:38 PM EST) HepB Surface Ag Negative Negative [facility] MILLENNIUM Blood specimen (specimen) 05/29/2011 12:38 PM EST 05/29/2011 12:40 PM EST Marilyn Reilly MD CHEMISTRY ORDERABL ES Performing Organization Address [facility] Phone Number [facility] MILLENNIUM * SYPHILIS ANTIBODY, IGG (05/29/2011 12:38 PM EST) Syphilis IgG Negative Negative CERNER MILLENNIUM Blood specimen (specimen) 05/29/2011 12:38 PM EST 06/01/2011 7:15 AM EST Marilyn Reilly MD IMMUNOLOGY ORDERAB LES Performing Organization Address [facility] Phone Number [facility] MILLENNIUM * (ABNORMAL) CBC (WITH DIFF) (05/29/2011 12:38 PM EST) WBC 10.2(H) 4.0 - 10.0 x10(3)/mcL CERNER MILLENNIUM RBC 4.21 3.93 - 5.22 x10(6)/mcL CERNER MILLENNIUM Hemoglobin 13.0 11.2 - 15.7 gm/dL CERNER MILLENNIUM Hematocrit 36.8 34.0 - 45.0 % CERNER MILLENNIUM MCV 87.4 79.0 - 94.0 fL CERNER MILLENNIUM MCH 30.9 26.6 - 32.2 pg CERNER MILLENNIUM MCHC 35.3 32.0 - 36.5 gm/dL CERNER MILLENNIUM Platelets 200 145 - 370 x10(3)/mcL CERNER MILLENNIUM RDWSD 40.3 35.0 - 46.0 fL CERNER MILLENNIUM RDWCV 12.7 10.9 - 14.4 % CERNER MILLENNIUM MPV 9.4 9.0 - 12.0 fL CERNER MILLENNIUM Blood specimen (specimen) 05/29/2011 12:38 PM EST 05/29/2011 12:40 PM EST Marilyn Reilly MD HEMATOLOGY ORDERAB LES ANA LILLYENNIUM * (ABNORMAL) Creatinine, serum (05/29/2011 12:38 PM EST) Creatinine 0.55(L) 0.70 - 1.20 mg/dL CERNER MILLENNIUM Estimated GFR >60 >=60 CERNER MILLENNIUM Comment: The National Kidney Disease Education Program (NKDEP) has recommended all laboratories report estimated GFR (eGFR) along with plasma creatinine measurements to assist you with recognition of early kidney disease. Caveats: ??Plasma creatinine should be at steady-state (unchanged within the past week). For patients multiply eGFR by 1.2. The MDRD equation has not been validated for pediatric patients and is only valid for patients with age >= 18 years. At present, NKDEP does NOT recommend using [...] with diabetic kidney disease. References: http://nkdep.nih.gov/resources/NKDEP_Suggestn4Labs_0606_508.pdf http://www.kidney.org/professionals/kls/pdf/faq_gfr.pdf Blood specimen (specimen) 05/29/2011 12:38 PM EST 05/29/2011 12:40 PM EST Marilyn Reilly MD CHEMISTRY ORDERABL Performing Organization Address [facility] Co de Phone Number [facility] * Aspartate Aminotransferase (05/29/2011 12:38 PM EST) AST 17 0 - 30 unit/L [facility] Blood specimen (specimen) 05/29/2011 12:38 PM EST 05/29/2011 12:40 PM EST Marilyn Reilly MD CHEMISTRY [facility] Performing Organization Address [facility] de Phone Number [facility] * Hemoglobin A1c (05/29/2011 12:38 PM EST) Hemoglobin A1C 5.9 4.3 - 6.1 % [facility] Est Avg Gluc 123 mg/dL [facility] Comment: eAG equivalents for HbA1c percentages: HbA1c(%) ?eAG(mg/dL) 6.0 ?126 6.5 ?140 7.0 ?154 7.5 ?169 8.0 ?183 8.5 ?197 9.0 ?212 9.5 ?226 10.0 ? 240 Limitations: The eAG calculation has not been validated on women, individuals below 18 years old and above 70 years old, and individuals with hemoglobinopathies. Additional resources are available on the ADA website: ??http://professional.diabetes.org/glucosecalculator.aspx Reference: Jose BLANKENSHIP, Kate J, Alexis R, et al. ??Translating the A1C assay into estimated average glucose values. ??Diabetes Care 2008:31(8):9699-7700. Blood specimen (specimen) 05/29/2011 12:38 PM EST 05/29/2011 12:40 PM EST Marilyn Reilly MD CHEMISTRY ORDERABL ES Performing Organization Address [facility] Phone Number [facility] * HIV (05/29/2011 12:38 PM EST) Pathologist [facility] HIV 1/2 Ab Negative [facility] Blood specimen (specimen) 05/29/2011 12:38 PM EST 05/29/2011 12:40 PM EST Marilyn Reilly MD IMMUNOLOGY ORDERAB LES Performing Organization Address [facility] Number [facility] * GC/CHLAM (05/29/2011 11:45 AM EST) Pathologist [facility] GC Gene Amp Negative Negative [facility] Comment: The only FDA approved specimen types for this assay are cervix, vagina, urethra and urine. ??The sensitivity and specificity of the assay for other specimen types has not been determined. GC Source Cervical [facility] Chlamydia Gene Amp Negative Negative [facility] Comment: The only FDA approved specimen types for this assay are cervix, vagina, urethra and urine. ??The sensitivity and specificity of the assay for other specimen types has not been determined. Chlamydia Source Cervical [facility] Specimen of unknown material (specimen) 05/29/2011 11:45 AM EST 05/29/2011 4:51 PM EST Marilyn Reilly MD MICROBIOLOGY - GEN ERAL ORDERABLES Performing Organization Address [facility] Number [facility] * Cytopathology Gynecological (05/29/2011 11:45 AM EST) AP Specimen 05/29/2011 11:4 5 AM EST 05/29/2011 12:16 PM EST Narrative NAA GILMAN - 05/29/2011 12:16 PM EST Specimen requisition ordered. ??Separate Pathology report to follow Marilyn Reilly MD PATHOLOGY/CYTOLOGY ORDERABLES ANA GILMAN documented in this encounter Visit Diagnoses Diagnosis Unspecified high-risk - Primary Previous section Other postprocedural status Diabetes in Diabetes mellitus of mother, complicating , childbirth, or the puerperium, unspecified as to episode of care Diabetes mellitus Type II or unspecified type diabetes mellitus without mention of complication, not stated as uncontrolled documented in this encounter Care Teams Stone And Plate Preparer Apprentice Relationship Specialty Start Date End Date Dav Carlos MD PCP - General 10/01/10 11/30/12 documented as of this encounter
--- OUTSIDE RECORDS SUMMARY | 2023-10-28 21:41 | XMS_ITS | Encounter Summary ---
Author Organization [facility] Address [address] [place] [address] Care Team Providers Care Fine Arts Instructor Name Role Phone Unknown, Provider Primary Care Provider [phone] Trice Holman Primary Care Provider [phone] Encounter Details Date Type Department Care Team (Late st Contact Info) Description 09/12/2022 Lab Requisition [facility] Pathology & Laboratory Medicine - [facility] [address] [place] [address] Outr Resulting Lab, Provider Social History Tobacco [...] Procedure Name Priority Date/Time Associated Diagnosis Comments HIV 1/2 ANTIGEN AND ANTIBODY, 4TH GENERATION Routine 09/11/2022 12:04 EDT documented in this encounter Results * HIV 1/2 ANTIGEN AND ANTIBODY, 4TH GENERATION (09/11/2022 12:04 EDT) HIV 1 and 2 Antibody/p24 Antigen, 4th Generation Negative Negative 09/14/2022 9:52 EDT [facility] Comment:If acute HIV-1 infec tion is suspected in a high risk patient, submit plasma specimen for HIV-1 RNA quantitation test. Blood VENOUS BLOOD / Unknown 09/11/2022 12:04 EDT 09/12/2022 21:23 EDT Narrative [facility] - 09/14/2022 9:52 EDT Fourth Generation assay performed on the Siemens Centaur XPT. Provider Outr Resulting Lab IMMUNOLOGY A ND SEROLOGY ORDERABLES [facility] [address] [place] [address] documented in this encounter Visit Diagnoses Not on filedocumented in this encounter Care Teams Fine Arts Instructor Relationship Specialty Start Date End Date Unknown, Provider, PCP - General 02/20/15 01/16/23 Trice Holman FNP [facility]ER [facility] [address] PCP - General 01/17/23 documented as of this encounter
--- OUTSIDE RECORDS SUMMARY | 2023-10-28 21:41 | XMS_ITS | Encounter Summary ---
Author Organization [facility] [place] [address] Care Team Providers Care Salt Manager Name Role Phone Henri Gonzalez DO Primary Care Provider [phone] Encounter Details Date Type Department Care Team (Late st Contact Info) Description 03/17/2010 9:00 AM EST Office Visit Obstetrics [place] [address] Adelfo Mckeon MD [facility] DR OBSTETRICS & [place] [address] Social History Tobacco Use Types Packs/Day Years [...] on filedocumented in this encounter Care Teams Salt Manager Relationship Specialty Start Date End Date Henri Gonzalez DO [address] [place] [id number] PCP - General 03/11/10 09/30/10 documented as of this encounter
--- OUTSIDE RECORDS SUMMARY | 2023-10-28 21:41 | XMS_ITS | Encounter Summary ---
Author Organization [facility] [place] [address] Care Team Providers Care Internal Grinding Machine Operator Name Role Phone Henri Gonzalez DO Primary Care Provider [phone] Encounter Details Date Type Department Care Team (Late st Contact Info) Description 03/03/2010 [place] [id number] Chaz Suarez MD [facility] [address] OBSTETRICS & [place] [address] Social History Tobacco Use Types Packs/Day Years Used Date Smoking Tobacco: Never Assessed Sex and Gender Information Value Date Recorded Sex Assigned at Not on file Gender Identity Female 12/01/2018 2:55 PM EDT Sexual Orientation Not on file documented as of this encounter Plan of Treatment Not on file documented as of this encounter Procedures Procedure Name Priority Date/Time Associated Diagnosis Comments DRUG CLERK CYTOLOGY FINAL REPORT Routine 03/03/2010 4:35 PM EST SURGICAL PATHOLOGY REPORT Routine 03/03/2010 4:11 PM EST documented in this encounter Results * PATHOLOGY DRUG CLERK CYTOLOGY FINAL REPORT (03/03/2010 4:35 PM EST) Sales Leader Cytology Final Report ? [facility] ? Provider: ?? CHAZ SUAREZ ?Pt. Name: ?? MIGDALIA MOREIRA ? Acc #: ?[id number] ?Pt. ? Col Date: ?? 03/03/2010 ?/Sex: ?1980,(29 ? years),Female ? Rec Date: ?? 03/03/2010 ?LOC: ?5L ? CYTOPATHOLOGY: ??DRUG CLERK ? ---Adequacy--- ? Specimen submitted is satisfactory. ? Endocervical component present. ? ---Cytopathologic Diagnosis--- ?NORMAL ? Negative for Intraepithelial Lesion or Malignancy (NILM). ? 03/05/10 ?? Screened by: ??SLA ? 03/05/10 ?? Verified by: ??ANGELES Camargo(ASCP), Della Urrutia - ? Letter Sorting Machine Operator ? ---Clinical Information--- ? Specimen Source: ?Cervical Endocervical LBP ? LMP: ?02/24/2010 ? / ?: ?? No ? Hysterectomy?: ?No ? Clinical Data, Significant Therapy and Clinical Impression: ? HPV Option: ?If ASCUS, please perform reflex High Risk HPV Testing. ? Preparation: ?Hologic Vial ? This Pap Test has been evaluated with the assistance of the ThinPrep Pap ? Test Imaging System. ? Note: ? The Pap test is a screening test for cervical cancer with an inherent ? false-negative rate dependent upon several variables. ??For further ? information please contact the [facility] Laboratory. ? Reference: ??Amanda BLACK. ??Crisis Therapist of Pap Smear Results. ??In: ? Barbara BS, [facility], ed. ??The Pap Smear. ??[place]: ??Mendoza, 2002: ? 71-77. ANA GILMAN 03/03/2010 4:35 PM EST Chaz Suarez MD PATHOLOGY/CYTOLOGY O RDERABLES ANA GILMAN * PATHOLOGY SURGICAL PATHOLOGY FINAL REPORT (03/03/2010 4:11 PM EST) Surgical Pathology Report ? [facility] ? Provider: ?? CHAZ SUAREZ ?Pt. Name: ?? MIGDALIA MOREIRA ? Acc #: ?[id number] ?Pt. ? Col Date: ?? 03/03/2010 ?/Sex: ?1980,(29 ? years),Female ? Rec Date: ?? 03/03/2010 ?LOC: ?5L ? SURGICAL PATHOLOGY ? ---Pathologic Diagnosis--- ? Endometrial biopsy: ?1. Fragments of benign proliferative endometrium intermixed ? with blood clot, mucus, and endocervical mucosa. ?2. No evidence of hyperplasia or endometritis. ? CR-0 ? 03/06/10 ? JLG ? 03/06/10 Verified by: ? Rosendo Ornelas MD ? Pathologist ? (Electronic Signature) ? The attending pathologist whose signature appears on this report has ? reviewed all diagnostic slides and has edited the gross and/or ? microscopic portion of the report in rendering the final pathologic ? diagnosis. ? ---Microscopic Description--- ? Slides reviewed, microscopic description not recorded. ? ---Gross Description--- ? Labeled/Fixative: ? Labeled with the patient's name, formalin. ? Qty/Size/Weight: ?Fragments, 0.6 x 0.5 x 0.3 cm. ? Tissue Description: ?? Poon-pink mucoid soft tissue and clotted blood. ? Sections/Processi ng: ??(T1) aje/EJR ? ---Clinical Information--- ? Specimen Submitted: ? A - Endometrial biopsy ? Clinical History: ? Anovulatory cycles ? Clinical Diagnosis: ? Not provided ANA GILMAN 03/03/2010 4:11 PM EST Chaz Suarez MD PATHOLOGY/CYTOLOGY O RDERABLES ANA GILMAN documented in this encounter Visit Diagnoses Not on filedocumented in this encounter Care Teams Internal Grinding Machine Operator Relationship Specialty Start Date End Date Henri Gonzalez DO [address] [place] [id number] PCP - General 03/11/10 09/30/10 documented as of this encounter
--- OUTSIDE RECORDS SUMMARY | 2023-10-28 21:41 | XMS_ITS | Encounter Summary ---
Author Organization [facility], Located Within [facility] [place] [address] Care Team Providers Care Music Director Name Role Phone Galina Hook MD Primary Care Provider [phone] Reason for Visit * Reason Comments Obstructive Sleep Apnea Encounter Details Date Type Department Care Team ([facility] Contact Info) Description 12/01/2010 1:40 PM EDT Office [place] [address] Rudolph Bustamante MD [facility] [place] [address] CADY (obstructive sleep apnea) (Primary Dx) Social [...] Sign Reading Time Taken Comments Blood Pressure 133/97 12/01/2010 2:20 PM EDT Pulse 84 12/01/2010 2:20 PM EDT Temperature - - Respiratory Rate - - Oxygen Saturation - - Inhaled Oxygen Concentration - - Weight 115.7 kg (255 lb) 12/01/2010 2:20 PM EDT Height 163.8 cm (5' 4.5) 12/01/2010 2:20 PM EDT Body Mass Index 43.09 12/01/2010 2:20 PM EDT documented in this encounter Progress Notes * Rudolph Bustamante MD - 12/01/2010 3:02 PM EDT Sleep Medicine Consultation Note IDENTIFYING INFORMATION Patient's Name: Sarah Cantu Date of : 1980 REFERRING PHYSICIAN: None PRIMARY CARE PHYSICIAN: GALINA HOOK MD Date of Service: 12/01/2010 History of Present Illness: Sarah Cantu is a 30 y.o. female seen at the request of GALINA HOOK MD for advice regarding suspected obstructive sleep apnea. Past sleep history: Negative for formally diagnosed/treated sleep disorders Previous treatment: None Snoring: yes Severity: Severe Frequency: Nightly Duration: 16 ~ years Modifying factors: worse with nasal obstruction Over time: Unknown Observed apneas: Yes Snort arousals: Yes Nocturnal gasping: No Dry mouth upon awakening: Yes Hoarseness upon awakening: Yes Headaches upon awakening: Yes Daytime Symptoms: Alva Sleepiness Score: 14/24 Upon Awakening: Unrefreshed Daytime naps: None Involuntary Dozing: Yes Cognitive Symptoms: Yes, Slowed thinking Memory impairment Driving: Yes, difficulty with drowsiness or dozing at the wheel Close calls related to sleepiness: no Accidents related to sleepiness: no Sleep Pattern: Bedtime: 1 A.M. Rise time: 6:30- 8 A.M. On days off: same Shift Work: 9 am -5 pm or 1 pm - 9 pm Location: Bed shared with partner 2 x a week Head of Bed: flat Preferred Position: All positions Initial insomnia complaint: Yes with a sleep onset latency of: 30-90 min. hrs. due to thinking Unexplained arousals: Yes Nocturia: No Middle or terminal insomnia complaint: No Circadian/sleep related abnormal movements and parasomnias: Restless legs in the evening/prior to bedtime: reports restless legs symptoms (problems with legs x5 years; around 11 pm; has to walk several times before able to go to bed) Bruxism: None reported PLMS: Patient reports knowledge of periodic movements in sleep Sleep talking: no Sleep walking: no Sleep paralysis: no Hallucinations: Denies hypnagogic / hynpnopompic hallucinations Cataplexy: no Constitutional: Weight: variable Past Medical History Diagnosis Date ??? Diabetes [...] 30 y.o. 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 She has never used smokeless tobacco. She reports that she drinks alcohol. She reports that she does not currently use illicit drugs. Consumes 1 cups of coffee and 0 caffeinated sodas a day. Review of systems: ENT: nasal obstruction: no NEURO: sleep related headaches: no CV: chest pain: no Palpitations: no LE edema: yes after long standing PUL: Shortness of breath: no PSY: Depression: yes Anxiety: no GI: GERD: yes MSK: Pain: no ALL: Environmental Allergies: no Medications: Current outpatient prescriptions:methyldopa (ALDOMET) 250 mg tablet, Take 250 mg by mouth 2 times daily., Disp: , Rfl: ; metFORMIN (GLUCOPHAGE) 500 mg tablet, 500 MG = 1 Tablet(s), PO, Twice daily, Disp: , Rfl: ; omeprazole (PRILOSEC) 40 mg capsule, 20 MG = 1 Capsule(s) PO Once daily, Disp: , Rfl: MSE: Alert and appropriate: yes Oriented to person, place and time: yes Mood: Euthymic Affect: Congruent with mood and appropriate to content PE: Wt Readings from Last 3 Encounters: 12/01/10 115.667 kg (255 lb) Body mass index is 43.09 kg/(m^2). BP Readings from Last 3 Encounters: 12/01/10 133/97 Pulse Readings from Last 3 Encounters: 12/01/10 84 1.638 m (5' 4.5) Neuro: Face symmetric, without weakness; pupils isocoric and reactive to light bilaterally. Musculoskeletal: Gait and stance: wnl ENT: Hypopharynx crowded with a Dao score of 4. Neck/Lymphatics: Circumference: 46.5 cm Head and neck lymphadenopathy or masses: no Cardiovascular: no lower extremity edema Assessment: Sarah Cantu is a 30 y.o. female presenting for an obstructive sleep apnea evaluation. The patient's demographics, history, and symptoms are suggestive of obstructive sleep apnea. Diagnostic Codes: Obstructive sleep apnea, provisional, 327.23. Time spent face to face: 60 min. Time spent devoted to counseling and discussion: 30 min. Reccomendations: 1. The patient was educated on the nature of obstructive sleep apnea, diagnostic procedures and treatment options and agreed to a polysomnogram verbally. 2. Conservative measures including weight reduction and avoidance of alcohol and sleeping pills were reviewed with the patient. 3. Driving safety was reviewed with patient. If the patient feels too sleepy to drive he/she knows not to drive. If he/she becomes sleepy while driving he/she will line puller and nap. 4. Follow up will be arranged after reviewing the sleep study results. documented in this encounter Plan of Treatment Not on file documented as of this encounter Visit Diagnoses Diagnosis CADY (obstructive sleep apnea)- Primary Obstructive sleep apnea (adult) (pediatric) documented in this encounter Care Teams Music Director Relationship Specialty Start Date End Date Galina Hook MD PCP - General 10/01/10 11/30/12 documented as of this encounter
--- OUTSIDE RECORDS SUMMARY | 2023-10-28 21:41 | XMS_ITS | Encounter Summary ---
Author Organization [facility] [place] [address] Care Team Providers Care Payroll Consultant Name Role Phone Galina Hook MD Primary Care Provider [phone] Reason for Visit * Reason Comments Obstructive Sleep Apnea Encounter Details Date Type Department Care Team ([facility] Contact Info) Description 12/17/2010 8:00 PM EDT Procedure [place] [address] Rudolph Bustamante MD [facility] [place] [address] CADY (obstructive sleep apnea) (Primary Dx) Social [...] as of this encounter Progress Notes * Rudolph Bustamante MD - 12/18/2010 9:18 AM EDT REPORT OF POSITIVE PRESSURE TITRATION IDENTIFYING INFORMATION Patient's Name: Sarah Cantu Date of : 1980 REFERRING PHYSICIAN: None PRIMARY CARE PHYSICIAN: GALINA HOOK MD Date of Service: 12/17/10 Identification: Sarah Cantu is a 30 y.o. female presenting for a positive pressure titration study. Polysomnography: The patient's sleep was evaluated for [facility]. Sleep was monitored in accordance with recommended AASM guidelines. The recording also included oral/nasal airflow, chest and abdominal respiratory effort, nasal pressure, single channel EKG, intercostalEMG, bilateral tibialis EMG, and oxygen saturation (by pulse oximeter). Type of Positive Pressure Utilized: CPAP Comments - Sleep/EEG: The study started at 11:24 PM and ended at 6:32 AM, yielding a total recording time (TRT) of 7:08. The sleep onset latency was approximately 2 minutes. Sleep efficiency was estimated to be within normal limits. Sleep stages captured were N1, N2, N3 and R. Supine REM sleep was captured in sufficient amounts on near-therapeutic pressures. - Respiratory: CPAP was titrated from 4 to 11 CWP. There were few residual obstructive respiratory events and minor snoring on the pressure of 11 cm water in supine REM sleep and the SpO2 elisa was 96%, while there were no snoring or respiratory events in lateral R on the same pressure. Leak was contained. - EKG: Normal sinus rhythm. - EMG: Intermittent periodic leg movements associated with sleep disruption were noted. - Study Conditions: - Head of the bed: flat - Supplemental oxygen: 0 liters/minute - Preferred interface during the study: small Mirage Quattro FF mask - Chin strap: none Assessment: Sarah Cantu is a 30 y.o. female whose polysomnogram reveals a partially effective CPAP pressure of 11 cm of water. ICSD diagnosis (code) 327.23 Provisional: Final: Obstructive sleep apnea. Plan: 1. CPAP at 13 CWP via a small Mirage Quattro FF mask. 2. The study results and the need for positive pressure therapy compliance were discussed; relevantquestions/concerns answered. The patient is amenable to proceeding with positive pressure. 3. A prescription for the above equipment will be issued and forwarded to the home health care company of the patient's choice. 4. The patient will be seen for a follow-up in approximately 6-8 weeks or sooner, if any questions or problems arise. Patient Name: Sarah Cantu Study Date: 12/17/2010 Sex: Female Subject Code: [id number] Date of : 1980 Referring Physician: Galina Hook M.D. Age: 30 Sleep Specialist: Rudolph Bustamante M.D. Height: 64.8 Techs: TARIQ /Renetta Weight: 255.5 Project: CPAP B.M.I: 42.8 Ectopy: None Noted EKG: NSR Sleep Architecture Start Time: Lights Off: 11:24:58 PM End Time: Lights On: 6:32:43 AM Total Recording Time (TRT): 427.8 Total Sleep Period (TSP): 425.9 Total Sleep Time (TST): 404.4 Sleep Efficiency: 94.6% Sleep Onset: 1.8 Total Stage Shifts: 51 WASO: 21.5 Total Awakenings: 9 REM Periods: 3 REM Latency: 85.5 REM Latency (minus Wake time): 83.0 Stage Results Time (min.) % TST Latency (min.) Wake (after sleep onset): 21.5 - - Stage N1: 17.0 4.2% 0.0 Stage N2: 176.9 43.7% 1.5 Stage N3: 89.5 22.1% 32.5 REM: 121.0 29.9% 85.5 Respiratory Events Central Obstructive Mixed Total Apnea Apnea Apnea Apneas RERA Count: 5 0 0 5 0 Index (events/hr.): 0.7 0.0 0.0 0.7 0.0 Mean Duration (sec.): 11.7 N/A N/A 11.7 N/A Longest Event (sec.): 16.0 N/A N/A 16.0 N/A REM Count: 3 0 0 3 0 NREM Count: 2 0 0 2 0 REM Index: 1.5 0.0 0.0 1.5 0.0 NREM Index: 0.4 0.0 0.0 0.4 0.0 Respiratory Events (cont) Hypopneas Hypopneas Apneas + OD 4% OD 3%/AR Hypopneas Count: 14 86 105 Index (events/hr.): 2.1 12.8 15.6 Mean Duration (sec.): 15.9 17.1 16.7 Longest Event (sec.): 25.8 42.5 42.5 REM Count: 3 13 19 NREM Count: 11 73 86 REM Index: 1.5 6.4 9.4 NREM Index: 2.3 15.5 18.2 Respiratory Body Position Supine Supine Prone Prone Left Body Position Count Index Count Index Count Duration: 4:27:24 0:00:00 0:00:00 Obstructive Apneas: 0 0.0 N/A N/A N/A Central Apneas: 1 0.2 N/A N/A N/A Mixed Apneas: 0 0.0 N/A N/A N/A Hypopnea OD 4%: 13 2.9 N/A N/A N/A Hypopnea OD 3%: 82 18.4 N/A N/A N/A RERA???s: 0 0.0 N/A N/A N/A Total: 96 21.5 N/A N/A N/A Respiratory Events Events Left Right Right Upright Upright Body Position (cont) Index Count Index Count Index Duration: 2:17:03 0:00:00 Obstructive Apneas: N/A 0 0.0 N/A N/A Central Apneas: N/A 4 1.8 N/A N/A Mixed Apneas: N/A 0 0.0 N/A N/A Hypopnea OD 4%: N/A 1 0.4 N/A N/A Hypopnea OD 3%: N/A 4 1.8 N/A N/A RERA???s: N/A 0 0.0 N/A N/A Total: N/A 9 3.9 N/A N/A Body Position Supine Prone Left Right Upright Duration (Min): 267.4 0.0 0.0 137.0 0.0 % TST: 66.1% 0.0% 0.0% 33.9% 0.0% Respiratory Arousals Total NREM REM Respiratory Count: 101 84 17 Respiratory Index (events/hr): 15.0 17.8 8.4 Spontaneous Count: 123 93 30 Spontaneous Index (events/hr): 18.2 19.7 14.9 Total Count: 238 186 52 Total Index (events/hr): 35.3 39.4 25.8 Limb Movements LMs w Arousals LMs w/o Arousals Total LMs (by Sleep Stages) Count Index Count Index Count Index Total Sleep: 14 2.1 28 4.2 42 6.2 N1: 0 0.0 1 3.5 1 3.5 N2: 9 3.1 17 5.8 26 8.8 N3: 0 0.0 0 0.0 0 0.0 REM: 5 2.5 10 5.0 15 7.4 Oxygen Desaturation Count Index Total Sleep Time: 23 3.4 Wake (after sleep onset): 0 0.0 Non-REM: 18 3.8 REM: 5 3.8 Total Recording Time: 23 3.2 Oxygen Saturation Wake NREM REM TST TIB Mean SaO2%: 79.4 96.4 98.2 96.9 96.0 Min. SaO2%: 0.0 90.0 89.0 89.0 0.0 Max. SaO2%: 100.0 100.0 100.0 100.0 100.0 SaO2 < 89% (min): 4.4 0.0 0.0 0.0 4.4 SaO2 < 88% (min): 4.4 0.0 0.0 0.0 4.4 % Time of SaO2 in range 90 - 100%: 81.2% 100.0% 99.9% 100.0% 98.9% 80 - 90%: 0.0% 0.0% 0.1% 0.0% 0.0% 70 - 80%: 0.0% 0.0% 0.0% 0.0% 0.0% 60 - 70%: 0.0% 0.0% 0.0% 0.0% 0.0% 50 - 60%: 0.0% 0.0% 0.0% 0.0% 0.0% ? 50%: 18.8% 0.0% 0.0% 0.0% 1.0% % Artifact / Bad Data: 0.0% 0.0% 0.0% 0.0% 0.0% ETCO2 Wake NREM REM TST TIB Mean ETCO2: N/A N/A N/A N/A N/A Min. ETCO2: N/A N/A N/A N/A N/A Max. ETCO2: N/A N/A N/A N/A N/A % Time of ETCO2 in range > 80 (mmHg): 0.0% 0.0% 0.0% 0.0% 0.0% 70 - 80 (mmHg): 0.0% 0.0% 0.0% 0.0% 0.0% 60 - 69 (mmHg): 0.0% 0.0% 0.0% 0.0% 0.0% 55 - 59 (mmHg): 0.0% 0.0% 0.0% 0.0% 0.0% 50 - 54 (mmHg): 0.0% 0.0% 0.0% 0.0% 0.0% 45 - 49 (mmHg): 0.0% 0.0% 0.0% 0.0% 0.0% 40 - 44 (mmHg): 0.0% 0.0% 0.0% 0.0% 0.0% 35 - 39 (mmHg): 0.0% 0.0% 0.0% 0.0% 0.0% 30 - 34 (mmHg): 0.0% 0.0% 0.0% 0.0% 0.0% 20 - 29 (mmHg): 0.0% 0.0% 0.0% 0.0% 0.0% 0 - 20 (mmHg): 0.0% 0.0% 0.0% 0.0% 0.0% % Artifact / Bad Data: 0.0% 0.0% 0.0% 0.0% 0.0% Heart Rate Wake NREM REM TST TIB Mean HR (bpm): 60.8 58.5 61.2 59.3 59.4 Min. HR (bpm): 16.0 47.0 50.0 47.0 16.0 Max. HR (bpm): 90.0 94.0 91.0 94.0 94.0 % Time in range > 100 (bpm): 0.0% 0.0% 0.0% 0.0% 0.0% 90 - 100 (bpm): 0.0% 0.0% 0.0% 0.0% 0.0% 80 - 90 (bpm): 2.4% 0.3% 0.4% 0.3% 0.4% 70 - 80 (bpm): 4.4% 1.6% 2.3% 1.8% 1.9% 60 - 70 (bpm): 27.8% 26.7% 49.3% 33.4% 33.1% 50 - 60 (bpm): 45.6% 69.5% 47.9% 63.1% 62.1% ? 50 (bpm): 19.8% 1.9% 0.1% 1.3% 2.3% % Artifact / Bad Data: 0.0% 0.0% 0.0% 0.0% 0.0% documented in this encounter Plan of Treatment Not on file documented as of this encounter Visit Diagnoses Diagnosis CADY (obstructive sleep apnea)- Primary Obstructive sleep apnea (adult) (pediatric) documented in this encounter Care Teams Payroll Consultant Relationship Specialty Start Date End Date Galina Hook MD PCP - General 10/01/10 11/30/12 documented as of this encounter
--- OUTSIDE RECORDS SUMMARY | 2023-10-28 21:41 | XMS_ITS | Encounter Summary ---
Author Organization [facility] Address [address] [place] [address] Care Team Providers Care Sanding Line Operator Name Role Phone Trice Holman Primary Care Provider [phone] Encounter Details Date Type Department Care Team (Late st Contact Info) Description 01/30/2023 Lab Requisition [facility] - [address] [address] Jennie Villegas MD [address] [place] [address] [phone] Encounter for other general examination Social History Tobacco Use Types Packs/Day Years Used Date Smoking Tobacco: Never Assessed Sex and Gender Information Value Date Recorded Sex Assigned at Not on file Gender Identity Not on file Sexual Orientation Not on file documented as of this encounter Plan of Treatment Not on file documented as of this encounter Procedures Procedure Name Priority Date/Time Associated Diagnosis Comments SURGICAL PATHOLOGY Today 01/29/2023 11 :10 EDT Encounter for other general examination documented in this encounter Results * SURGICAL PATHOLOGY (01/29/2023 11:10 EDT) Note to Patient The following pathology results have been interpreted by your pathologist and may be available to you before your health provider has had the opportunity to review them. Please allow time for your provider to receive these results and explore management options, if applicable. 02/03/2023 9:13 EDT [facility] Final Diagnosis A. CERVIX, BRUSH: -Low-grade squamous intra-epithelial lesion (VERONICA 1). See comment. 02/03/2023 9:13 [facility] Diagnosis Comment Immunoperoxidase stains were performed on this case to further characterize the lesion. ANTIBODY(CLONE)(BL OCK):RESULT P16 (E6H4TM, [place]) (A1): Negative NOTE: One or more of the reagents used in immunoperoxidase testing in this case may not have been cleared or approved by the U.S. Food and Drug Administration (FDA). The FDA has determined that such clearance or approval is not necessary. These tests are used for clinical purposes. They should not be regarded as investigational or for research. These reagents' performance characteristics have been determined by [facility] and/or by the referring laboratory. The positive and negative controls worked appropriately. If immunoperoxidase staining has been performed on alcohol fixed cytology specimens, which has not been fully validated, the assays should be interpreted with caution and correlated with clinical data. This laboratory is certified under the Clinical Laboratory Improvement Amendments of 1988 (CLIA-88) as qualified to perform high complexity clinical laboratory testing. 02/03/2023 9:13 [facility] Attestation By the signature below, the attending physician certifies that they have 1) personally conducted a gross and/or microscopic examination of the described specimen(s), and/or personally interpreted the results of laboratory testing of the described specimen(s), and 2) personally rendered or confirmed the above diagnosis. 02/03/2023 9:13 [facility] at 0913 Clinical History +HR HPV 02/03/2023 9:13 [facility] Gross Description A. Received in formalin, on a Histologic S-100 brush, labelled with proper patient identification (initials C, M) and cervical is a 0.4 x 0.2 x 0.2 cm aggregate of corona tissue. The specimen is entirely submitted in A1. ABEL DIAZ(ASCP) 02/01/2023 8:59 02/03/2023 9:13 [facility] Performing Lab [facility] 9:13 [facility] Scanned Images 02/03/2023 9:13 EDT [facility] Tissue CERVIX UTERI STRUCTURE / Unknown 01/29/2023 11:10 EDT 01/30/2023 8:09 EDT Jennie Villegas MD PATHOLOGY ORDERABLES [facility] [address] [place] [address] documented in this encounter Visit Diagnoses Diagnosis Encounter for other general examination documented in this encounter Care Teams Sanding Line Operator Relationship Specialty Start Date End Date Trice Holman [place] [address] PCP - General 01/17/23 documented as of this encounter
--- OUTSIDE RECORDS SUMMARY | 2023-10-28 21:41 | XMS_ITS | Encounter Summary ---
Author Organization [facility] [place] [address] Care Team Providers Care Sawmill Production Worker Name Role Phone Henri Gonzalez DO Primary Care Provider [phone] Encounter Details Date Type Department Care Team (Late st Contact Info) Description 03/29/2010 2:38 AM EST - 03/29/2010 3:43 AM EST [place] [address] Sivakumar Hopson MD [facility] [place] [address] Discharge Disposition: Home Social History Tobacco Use Types Packs/Day Years Used Date Smoking Tobacco: Never Assessed Sex and Gender Information Value Date Recorded Sex Assigned at Not on file Gender Identity Female 12/01/2018 2:55 PM EDT Sexual Orientation Not on file documented as of this encounter Medications at Time of Discharge Medication Sig Dispensed Refills Start Date End Date amoxicillin-clavulanate (AUGMENTIN) 875-125 mg per tablet 1 Tablet(s), PO, Q12H 03/29/2010 12/01/2010 fluticasone (FLONASE) 50 mcg/Actuation nasal spray 2 David(s), Nasal, Once daily 03/29/2010 12/01/2010 metFORMIN (GLUCOPHAGE) 500 mg tablet 500 MG = 1 Tablet(s), PO, Twice daily 03/17/2010 05/29/2011 omeprazole (PRILOSEC) 40 mg capsule 20 MG = 1 Capsule(s) PO Once daily 03/17/2010 09/29/2011 documented as of this encounter Plan of Treatment Not on file documented as of this encounter Visit Diagnoses Not on filedocumented in this encounter Care Teams Sawmill Production Worker Relationship Specialty Start Date End Date Henri Gonzalez DO [address] [place] [address] PCP - General 03/11/10 09/30/10 documented as of this encounter
--- OUTSIDE RECORDS SUMMARY | 2023-10-28 21:41 | XMS_ITS | Encounter Summary ---
Author Organization [facility] [address] Care Team Providers Care Plant Clerk Name Role Phone Enoch Medina MD Primary Care Provider [phone] Encounter Details Date Type Department Care Team (Late st Contact Info) Description 03/03/2010 Orders Only Lab [facility] [place] [phone] Alina Krishna MD OBSTETRICS & GYNECOLOGY Social History Tobacco Use Types Packs/Day Years [...] Priority Date/Time Associated Diagnosis Comments SURGICAL PATHOLOGY REPORT Routine 03/03/2010 4:11 PM EST documented in this encounter Results * Surgical Pathology Report (03/03/2010 4:11 PM EST) Surgical Pathology Report [id number] ? Location: 5L The signing pathologist has (i) examined the relevant preparation(s) for the specimen(s) and (ii) rendered or confirmed the diagnosis(es). . ?Pathology Surgical Pathology Final Report Clinical Information Specimen Submitted: A - Endometrial biopsy Clinical History: Anovulatory cycles Clinical Diagnosis: Not provided Gross Description Labeled/Fixative: ? Labeled with the patient's name, formalin. Qty/Size/Weight: ?Fragments, 0.6 x 0.5 x 0.3 cm. Tissue Description: ?? Poon-pink mucoid soft tissue and clotted blood. Sections/Processi ng: ??(T1) aje/EJR Microscopic Description Slides reviewed, microscopic description not recorded. Diagnosis Endometrial biopsy: ?? 1. Fragments of benign proliferative endometrium intermixed ?with blood clot, mucus, and endocervical mucosa. ?? 2. No evidence of hyperplasia or endometritis. CR-0 03/06/10 [facility] 03/06/10 Verified by: ? Rosendo Ornelas MD ?Pathologist ?(Electronic Signature) The attending pathologist whose signature appears on this report has reviewed all diagnostic slides and has edited the gross and/or microscopic portion of the report in rendering the final pathologic diagnosis. ANA GILMAN 03/03/2010 4:11 PM EST Alina Krishna MD PATHOLOGY/CYTOLOGY O RDERABLES ANA GILMAN documented in this encounter Visit Diagnoses Not on filedocumented in this encounter Care Teams Plant Clerk Relationship Specialty Start Date End Date Enoch Medina MD [facility] [address] [address] PCP - General Family Medicine 08/22/20 06/03/21 documented as of this encounter
--- OUTSIDE RECORDS SUMMARY | 2023-10-28 21:41 | XMS_ITS | Encounter Summary ---
Author Organization [facility] Address [address] [place] [address] Care Team Providers Care Cafe Helper Name Role Phone Unknown, Provider Primary Care Provider [phone] Trice Holman Primary Care Provider [phone] Encounter Details Date Type Department Care Team (Latest Contact Info) Description 09/15/2022 Lab Requisition [facility] Pathology & Laboratory Medicine - [facility] [address] [place] [address] Rosalva Valdez FNP [address] [facility] [address] [place] [address] Encounter for general adult medical examination without abnormal findings; Encounter for screening for malignant neoplasm of cervix; Encounter for screening for human papillomavirus (HPV) Social History Tobacco Use Types Packs/Day Years Used Date Smoking Tobacco: Never Assessed Sex and Gender Information Value Date Recorded Sex Assigned at Not on file Gender Identity Not on file Sexual Orientation Not on file documented as of this encounter Plan of Treatment Not on file documented as of this encounter Procedures Procedure Name Priority Date/Time Associated Diagnosis Comments PAP TEST Today 09/11/2022 11:30 EDT Encounter for general adult medical examination without abnormal findings Encounter for screening for malignant neoplasm of cervix Encounter for screening for human papillomavirus (HPV) HPV GENOTYPES 16 AND 18/45 Today 09/11/2022 11:30 EDT Encounter for general adult medical examination without abnormal findings Encounter for screening for malignant neoplasm of cervix Encounter for screening for human papillomavirus (HPV) CHLAMYDIA/N. GONORRHOEAE AMPLIFIED NUCLEIC ACID, THINPREP Today 09/11/2022 11:30 EDT HPV DNA DETECTION WITH GENOTYPING, PCR Today 09/11/2022 11:30 EDT Encounter for general adult medical examination without abnormal findings Encounter for screening for malignant neoplasm of cervix Encounter for screening for human papillomavirus (HPV) documented in this encounter Results * HPV GENOTYPES 16 AND 18/45 (09/11/2022 11:30 EDT) HPV High Risk type 16, PCR Negative Negative 10/01/2022 13:45 EDT [facility] HPV18/45 RNA (HPV18/45) Negative Negative 10/01/2022 13:45 EDT [facility] Papanicolaou smear specimen (specimen) CERVIX UTERI STRUCTURE / Unknown 09/11/2022 11:30 EDT 09/30/2022 9:55 EDT Rosalva Valdez [facility] MICROBIOLOGY - GENER AL ORDERABLES [facility] [address] [place] [address] * (ABNORMAL) HUMAN PAPILLOMAVIRUS (HPV) DETECTION-HIGH RISK TYPES (09/11/2022 11:30 EDT) HPV other High Risk types, PCR Positive( A) Negative 10/01/2022 13:45 EDT [facility] Comment:E6 OR E7 mRNA from o ne or more types of HPV types 16,18,31,33,35,39,45,51,52,56,58,59,66, and 68 is detected by agricultural researcher mediated amplification. High and intermediate risk HPV types are associated with most squamous intraepithelial lesions and cervical cancers. Papanicolaou smear specimen (specimen) CERVIX UTERI STRUCTURE / Unknown 09/11/2022 11:30 EDT 09/30/2022 9:55 EDT Rosalva [facility] MICROBIOLOGY - GENER AL ORDERABLES [facility] [address] [place] [address] * PAP TEST (09/11/2022 11:30 EDT) Specimens A. Cervix and/or Endocervix , ThinPrep Imaging System with Manual Evaluation 10/01/2022 13:45 EDT [facility] Specimen Adequacy Satisfactory for Evaluation - transformation zone component present Scant due to excessive blood 10/01/2022 13:45 EDT [facility] General Categorization Negative for intraepithelial lesion or malignancy 10/01/2022 13:45 T [facility] Attestation . 10/01/2022 13:45 [facility] at 1345 Clinical History See below 10/02/19 13:45 T [facility] HPV The result for the Human Papillomavirus (HPV) Detection-High Risk Types is Positive . E6 OR E7 mRNA from one or more types of HPV types 16,18,31,33,35,39 ,45,51,52,56,58,5 9,66, and 68 is detected by agricultural researcher mediated amplification. High and intermediate risk HPV types are associated with most squamous intraepithelial lesions and cervical cancers. Testing was performed on specimen [id number] and was resulted on 09/30/2022 1647 EDT by FLORIAN, LAB INSTRUMENT RESULTS IN 10/01/2022 13:45 T [facility] Genotyping 16 & 18/45 The results for the HPV Genotypes 16 and 18/45 are Negative for the HPV16 RNA and Negative for the HPV18/45 RNA (HPV18/45). Testing was performed on specimen [id number] and was resulted on 10/01/2022 1345 EDT by FLORIAN, LAB INSTRUMENT RESULTS IN 10/01/2022 13:45 EDT [facility] Performing Lab [facility] 10/01/2022 13:45 T [facility] Scanned Images 10/01/2022 13:45 EDT [facility] Papanicolaou smear specimen (specimen) CERVIX UTERI STRUCTURE / Unknown 09/11/2022 11:30 EDT 09/16/2022 12:32 EDT Rosalva PEDRO PATHOLOGY ORDERABLES Performing Organization Address City/[facility] Co de Phone Number [facility] [address] [place] [address] * CHLAMYDIA/N. GONORRHOEAE AMPLIFIED RNA, THINPREP (09/11/2022 11:30 EDT) Neisseria gonorrhoeae Result Negative Negative 09/16/2022 14:31 EDT [facility] Chlamydia trachomatis Result Negative Negative 09/16/2022 14:31 EDT [facility] Papanicolaou smear specimen (specimen) CERVIX UTERI STRUCTURE / Unknown 09/11/2022 11:30 EDT 09/16/2022 9:34 EDT Rosalva PEDRO MICROBIOLOGY - GENER AL ORDERABLES Performing Organization Address City/[facility] Co de Phone Number [facility] [address] [place] [address] documented in this encounter Visit Diagnoses Diagnosis Encounter for general adult medical examination without abnormal findings Unspecified general medical examination Encounter for screening for malignant neoplasm of cervix Screening for malignant neoplasm of the cervix Encounter for screening for human papillomavirus (HPV) Special screening examination for human papillomavirus (HPV) documented in this encounter Care Teams Cafe Helper Relationship Specialty Start Date End Date Unknown, Provider, PCP - General 02/20/15 01/16/23 Trice [place] [place] [address] PCP - General 01/17/23 documented as of this encounter
--- OUTSIDE RECORDS SUMMARY | 2023-10-28 21:41 | XMS_ITS | Referral Summary ---
Author Organization [facility] Address [address] [place] [address] Care Team Providers Care Hat Checker Name Role Phone Trice Holman MAYELA Primary Care Provider [phone] Social History Tobacco Use Types Packs/Day Years Used Date Smoking Tobacco: Never Assessed Sex and Gender Information Value Date Recorded Sex Assigned at Not on file Gender Identity Not on file Sexual Orientation Not on file Plan of Treatment Not on file Procedures Procedure Name Priority Date/Time Associated Diagnosis Comments HEPATITIS C AB W REFLEX TO HCV RNA BY PCR Routine 09/11/2022 12:04 EDT from Last 3 Months or Most Recently Relevant to Health Maintenance Results * HEPATITIS C AB W REFLEX TO HCV RNA BY PCR (09/11/2022 12:04 EDT) Hep C Antibody Negative Negative 09/14/2022 10:09 EDT [facility] Blood VENOUS BLOOD / Unknown 09/11/2022 12:04 EDT 09/12/2022 21:24 EDT Provider Outr Resulting Lab CHEMISTRY & BLOOD GAS ORDERABLES [facility] [address] [place] [address] from Last 3 Months or Most Recently Relevant to Health Maintenance Care Teams Hat Checker Relationship Specialty Start Date End Date Trice Holman FNP [address] [place], [place] [id number] PCP - General 01/17/23
--- OUTSIDE RECORDS SUMMARY | 2023-10-28 21:41 | XMS_ITS | Encounter Summary ---
Author Organization [facility] [place] [address] Care Team Providers Care Ladle Liner Helper Name Role Phone Dav Carlos MD Primary Care Provider [phone] Encounter Details Date Type Department Care Team (Latest Contact Info) Description 05/29/2011 10:30 AM EST - 05/29/2011 11:59 PM [facility] Hospital Encounter Ultrasound at [facility] [place] [phone] High-risk supervision Social History Tobacco Use Types Packs/Day Years [...] (with meals). 60 tablet 1 12/21/2011 01/30/2013 VITS W-CA,FE,FA,<1MG, ( VITAMIN ORAL) Take by [...] and bedtime 1 Box prn 05/14/2011 02/01/2012 methyldopa (ALDOMET) 250 mg tablet Take 250 mg by mouth 2 times daily. 07/02/2011 omeprazole (PRILOSEC) 40 mg capsule 20 MG = 1 Capsule(s) PO Once daily 03/17/2010 09/29/2011 documented as of this encounter Plan of Treatment Not on file documented as of this encounter Procedures Procedure Name Priority Date/Time Associated Diagnosis Comments OB TRANSVAGINAL Routine 05/29/2011 10 :58 AM EST High-risk supervision documented in this encounter Results * US OB transvaginal (05/29/2011 10:58 AM EST) Anatomical Region Laterality Modality Pelvis, Abdomen Ultrasound 05/29/2011 10:5 8 AM EST Narrative 05/29/2011 11:03 AM EST ?OBSTETRICS REPORT ? (Signed Final 05/29/2011 11:02 am) Patient Info ID: ? [id number] ? : ??[birth year] (31 yrs) Name: ? MIGDALIA MOREIRA ? Visit Date: 05/29/2011 10:56 am Performed By Performed By: ?Caryl Yepez RDMS Attending: ? Arik PENALOZA, E ??Valerie Referred By: ? AMINA MOCK MD Service(s) Provided UOBTV - Viability - Cervical Length - Transvaginal - ??[id number] Indications Viability, transvaginal Evaluation Num Of Fetuses: ?1 Preg. Location: ?Uterus Gest. Sac: ? Visualized Yolk Sac: ?Visualized Pole: ?Visualized Heart Rate: ??175 ?bpm Presentation: ?Variable Placenta: ?Too early to evaluate Amniotic Fluid CAMILO FV: ?Too early to evaluate -------- Biometry -------- CRL: ?19.5 ??mm ?G. Age: ?? 8w 4d ? ODETTE: ?? 01/04/12 Gestational Age LMP: ? 9w 6d ? Date: ??03/21/11 ? ODETTE: ?? 12/26/11 Best: ?8w 4d ?Det. By: ??U/S C R L ?ODETTE: ?? 01/04/12 ? (05/29/11) Cervix Uterus Adnexa Left Ovary: ?Visualized, Cyst measuring 2.7 cm Right Ovary: ?? Visualized Impression 1st Trimester Summary Single living intrauterine with a gestational age of 8w 4d based on CRL. The crown rump length corresponds to a gestational age of 8w 4d. I ??viewed the images and agree with the above interpretation. Thank you for allowing us to participate in the care of MIGDALIA MOREIRA. Please do not hesitate to call if you have any questions. ?Lisette Elise MD Electronically Signed Final Report ?? 05/29/2011 11:02 am Procedure Note Lisette Elise MD - 05/29/2011 OBSTETRICS REPORT (Signed Final 05/29/2011 11:02 am) Patient Info ID: [id number] : [birth year] (31 yrs) Name: MIGDALIA MOREIRA Visit Date: 05/29/2011 10:56 am Performed By Performed By: Caryl Yepez [facility] Attending: Lisette Elise MD Referred By: AMINA MOCK MD Service(s) Provided UOBTV - Viability - Cervical Length - Transvaginal - [id number] Indications Viability, transvaginal Evaluation Num Of Fetuses: 1 Preg. Location: Uterus Gest. Sac: Visualized Yolk Sac: Visualized Pole: Visualized Heart Rate: 175 bpm Presentation: Variable Placenta: Too early to evaluate Amniotic Fluid CAMILO FV: Too early to evaluate -------- Biometry -------- CRL: 19.5 mm G. Age: 8w 4d ODETTE: 01/04/12 Gestational Age LMP: 9w 6d Date: 03/21/11 ODETTE: 12/26/11 Best: 8w 4d Det. By: Sujatha/Isaac Xiao ODETTE: 01/04/12 (05/29/11) Cervix Uterus Adnexa Left Ovary: Visualized, Cyst measuring 2.7 cm Right Ovary: Visualized Impression 1st Trimester Summary Single living intrauterine with a gestational age of 8w 4d based on CRL. The crown rump length corresponds to a gestational age of 8w 4d. I viewed the images and agree with the above interpretation. Thank you for allowing us to participate in the care of MIGDALIA BENTONTON. Please do not hesitate to call if you have any questions. Lisette Elise MD Electronically Signed Final Report 05/29/2011 11:02 am Amina Mock MD IMG OB ORDERABLES documented in this encounter Visit Diagnoses Diagnosis High-risk supervision Unspecified high-risk documented in this encounter Care Teams Ladle Liner Helper Relationship Specialty Start Date End Date Dav Carlos MD PCP - General 10/01/10 11/30/12 documented as of this encounter
--- OUTSIDE RECORDS SUMMARY | 2023-10-28 21:41 | XMS_ITS | Clinical Summary ---
Author Organization [facility] Address [address] [place] [address] Care Team Providers Care Game Protector Name Role Phone Trice Holman MAYELA Primary Care Provider [phone] Social History Tobacco Use Types Packs/Day Years Used Date Smoking Tobacco: Never Assessed Sex and Gender Information Value Date Recorded Sex Assigned at Not on file Gender Identity Not on file Sexual Orientation Not on file Plan of Treatment Health Maintenance Due Date Last Done Comments Hepatitis B Vaccine (1 of 3 - 19+ 3-dose series) 04/05 COVID-19 Vaccine ( season) 2022 Hepatitis C Screen Completed 09/11/2022 Procedures Procedure Name Priority Date/Time Associated Diagnosis Comments HEPATITIS C AB W REFLEX TO HCV RNA BY PCR Routine 09/11/2022 12:04 EDT from Last 3 Months or Most Recently Relevant to Health Maintenance Results * HEPATITIS C AB W REFLEX TO HCV RNA BY PCR (09/11/2022 12:04 EDT) Hep C Antibody Negative Negative 09/14/2022 10:09 EDT [facility] Blood VENOUS BLOOD / Unknown 09/11/2022 12:04 EDT 09/12/2022 21:24 EDT Provider Outr Resulting Lab CHEMISTRY & BLOOD GAS ORDERABLES [facility] [address] [place] [address] from Last 3 Months or Most Recently Relevant to Health Maintenance Care Teams Game Protector Relationship Specialty Start Date End Date Trice Holman F[place] [address] [place] [address] PCP - General 01/17/23
--- OUTSIDE RECORDS SUMMARY | 2023-10-28 21:41 | XMS_ITS | Encounter Summary ---
Author Organization [facility] [place] [address] Care Team Providers Care Placement Secretary Name Role Phone Dva Carlos MD Primary Care Provider Reason for Visit * Reason Comments Routine Visit Encounter Details Date Type Department Care Team (Latest Contact Info) Description 05/14/2011 10:00 AM EST Initial Obstetric[place] [address] Amina Mock MD [facility] [address] OBSTETRICS & [place] [address] GA: 6w3d Discharge Disposition: Home Social History Tobacco Use [...] Sign Reading Time Taken Comments Blood Pressure 128/84 05/14/2011 9:46 AM EST Pulse - - Temperature - - Respiratory Rate - - Oxygen Saturation - - Inhaled Oxygen Concentration - - Weight 117.2 kg (258 lb 6.4 oz) 05/14/2011 9:46 AM EST Height 165.1 cm (5' 5) 05/14/2011 9:46 AM EST Body Mass Index 43 05/14/2011 9:46 AM EST documented in this encounter Progress Notes * Alexandre Tipton RN - 05/14/2011 11:30 AM ESTAddended by: ALEXANDRE TIPTON on: 05/14/2011 Modules accepted: Orders * Amina Mock MD - 05/14/2011 10:29 AM EST Declines aneuploidy screen and CF screen. Cycles are 34 days will do US Is on Metformin will switch to insulin: AM 15 NPH 10 novolog Supper 10 novolog HS 15 NPH Rec 10-15 lb weight gain Has URI - will do over the counter meds Has CADY will continue CPAP Flu vaccine today US and PE in 2 weeks documented in this encounter Miscellaneous Notes * Miscellaneous - Warner Huerta - 05/18/2011 2:53 PM EST documented in this encounter Plan of Treatment Scheduled Orders Name Type Priority Associated Diagnoses Orde r Schedule POCT urine dipstick Point of Care Testing Routine High-risk supervision Ordered: 05/14/2011 documented as of this encounter Procedures Procedure Name Priority Date/Time Associated Diagnosis Comments URINE CULTURE Routine 05/14/2011 10:00 AM EST High-risk supervision documented in this encounter Results * US OB transvaginal (05/29/2011 10:58 AM EST) Anatomical Region Laterality Modality Pelvis, Abdomen Ultrasound 05/29/2011 10:5 8 AM EST Narrative 05/29/2011 11:03 AM EST ?OBSTETRICS REPORT ? (Signed Final 05/29/2011 11:02 am) Patient Info ID: ? [id number] ? : ??[birth year] (31 yrs) Name: ? MIGDALIA MOREIRA ? Visit Date: 05/29/2011 10:56 am Performed By Performed By: ?Caryl Yepez RDMS Attending: ? Arik PENALOZA, E ??Valerie Referred By: ? AMINA MOCK MD Service(s) Provided UOBTV - Viability - Cervical Length - Transvaginal - ??[id number] Indications Viability, transvaginal Evaluation Num Of Fetuses: [...] Final 05/29/2011 11:02 am) Patient Info ID: [id number] : [birth year] (31 yrs) Name: MIGDALIA MOREIRA Visit Date: 05/29/2011 10:56 am Performed By Performed By: Caryl Yepez [facility] Attending: Lisette Elise MD Referred By: AMINA MOCK MD Service(s) Provided UOBTV - Viability - Cervical Length - Transvaginal - [id number] Indications Viability, transvaginal Evaluation Num Of Fetuses: [...] ODETTE: 12/26/11 Best: 8w 4d Det. By: U/S Donnell Xiao ODETTE: 01/04/12 (05/29/11) Cervix Uterus Adnexa [...] 05/29/2011 11:02 am Amina Mock MD IMG US OB ORDERABLES * Urine culture Clean Catch Urine (05/14/2011 10:00 AM EST) Urine Culture ? Patient Name: MIGDALIA MOREIRA ? Ordered By: AMINA MOCK ? MR#: [id number] ?LOC: ??5L ? /Sex: ?? 8 (31 years), ? Female ? PROCEDURE: Urine Culture ?SOURCE: U CC ? COLLECTED: 05/14/2011 10:00 ? STARTED: 05/14/2011 16:49 ? FINAL REPORT ? Final Report ? Verified: 15:10 ? No growth (Less than 1,000 cfu/ml). ? ____ [facility] Urine specimen obtained by clean catch procedure (specimen) 05/14/2011 10:00 AM EST 05/14/2011 4:49 PM EST Amina Mock MD MICROBIOLOGY - GENER AL ORDERABLES [facility] documented in this encounter Visit Diagnoses Diagnosis High-risk supervision- Primary Unspecified high-risk Supervision of high-risk Unspecified high-risk Hypertension Unspecified essential hypertension Diabetes mellitus complicating , antepartum Diabetes mellitus, antepartum Obstructive sleep apnea Obstructive sleep apnea (adult) (pediatric) High-risk supervision Unspecified high-risk documented in this encounter Care Teams Placement Secretary Relationship Specialty Start Date End Date Dav Carlos MD PCP - General 10/01/10 11/30/12 documented as of this encounter
--- OUTSIDE RECORDS SUMMARY | 2023-10-28 21:41 | XMS_ITS | Encounter Summary ---
Author Organization [facility] [place] [address] Care Team Providers Care Plaster Machine Tender Name Role Phone Dav Carlos MD Primary Care Provider [phone] Reason for Visit * Reason Onset Date Comments Ultrasound 06/01/2011 Encounter Details Date Type Department Care Team (Latest Contact Info) Description 05/29/2011 11:00 AM EST Initial consult Obstetrics [place] [address] Lisette Elise MD [facility] [address] OBSTETRICS [place] [address] Unspecified high-risk (Primary Dx) Discharge Disposition: Home Social History [...] as of this encounter Progress Notes * Lisette Elise MD - 06/01/2011 9:42 AM EST This visit was for an ultrasound only. documented in this encounter Plan of Treatment Not on file documented as of this encounter Procedures Procedure Name Priority Date/Time Associated Diagnosis Comments ENGINE COWLING INSTALLER CYTOLOGY FINAL REPORT Routine 05/29/2011 3:57 PM EST documented in this encounter Results * ENGINE COWLING INSTALLER CYTOLOGY FINAL REPORT (05/29/2011 3:57 PM EST) Senior Housekeeper Cytology Final Report ? [facility] ? Provider: ?? MARILYN HOUSE Pt. Name: ?? MIGDALIA MOREIRA ? Acc #: ?[id number] ?Pt. ? Col Date: ?? 05/29/2011 ? /Sex: ?1980,(31 ? years),Female ? Rec Date: ?? 05/29/2011 ? LOC: ?5L ? CYTOPATHOLOGY: ??ENGINE COWLING INSTALLER ? ---Adequacy--- ? Specimen submitted is satisfactory. ? Endocervical component present. ? ---Cytopathologic Diagnosis--- ? NORMAL ? Negative for Intraepithelial Lesion or Malignancy (NILM). ? 06/02/11 ?? Screened by: ??LMY ? 06/02/11 ?? Verified by: ??Satya REYNOSO(ASCP), Julia Zuniga - Straightener Hand ? ---Clinical Information--- ? HPV Option: ? Reflex HPV ? Preparation: ?Liquid Based Pap ? Specimen Source: ?Cervical Endocervical LBP ? LMP: ?dec 3 ? Hormones?: ?No ? Hysterectomy?: ?No ?: ?No ?: ?Yes ? I.U.D.?: ?No ? Pelvic Radiation: ? No ? Prior ENGINE COWLING INSTALLER Therapy?: ? No ? Hist Abnl Pap/Biopsy?: ??No ? Hist of HPV Vaccine?: ?? No ? Hist of Smoking?: ? No ? Hist of NIKHIL exposure?: ??No ? Clinical Data, Significant Therapy and Clinical Impression: ? This Pap Test has been evaluated with the assistance of the ThinPrep Pap ? Test Imaging System. ? Note: ? The Pap test is a screening test for cervical cancer with an inherent ? false-negative rate dependent upon several variables. ??For further ? information please contact the [facility] Laboratory. ? Reference: ??Amanda BLACK. ??Liquefied Natural Gas Operator of Pap Smear Results. ??In: ? Barbara BS, [facility], ed. ??The Pap Smear. ??[place]: ??[place]endoza, 2002: ? 71-77. ANA GILMAN 05/29/2011 3:57 PM EST Marilyn House MD PATHOLOGY/CYTOLOGY ORDERABLES ANA GILMAN documented in this encounter Visit Diagnoses Diagnosis Unspecified high-risk - Primary documented in this encounter Care Teams Plaster Machine Tender Relationship Specialty Start Date End Date Dav Carlos MD PCP - General 10/01/10 11/30/12 documented as of this encounter
--- OUTSIDE RECORDS SUMMARY | 2023-10-28 21:41 | XMS_ITS | Encounter Summary ---
Author Organization [facility] [place] [address] Care Team Providers Care Heading Saw Operator Name Role Phone Dav Carlos MD Primary Care Provider [phone] Encounter Details Date Type Department Care Team (Late st Contact Info) Description 07/02/2010 Abstract Obstetrics [place] [address] Alina Krishna MD [facility] [address] OBSTETRICS & [place] [address] Social History Tobacco Use Types Packs/Day Years [...] on filedocumented in this encounter Care Teams Heading Saw Operator Relationship Specialty Start Date End Date Dav Carlos MD PCP - General 10/01/10 11/30/12 documented as of this encounter
== END 2023-10-28 21:36 | disposition home or self-care (01) ==
LOC: NCHCN 21:35
PROVIDERS: PCP Nurse Practitioner Family; Visit Provider Nurse Practitioner Family
DX: E11.9 Type 2 diabetes mellitus without complications (principal)
CPT/HCPCS: 80053; 83036

== ENCOUNTER → 2023-11-15 00:59 | Outpatient (CLI) | payer MEDICAID, SELFPAY ==
--- OUTSIDE RECORDS SUMMARY | 2023-11-10 01:09 | XMS_ITS | Clinical Summary ---
Author Organization [facility] Address [facility] [place] [address] Care Team Providers Care Chief Steward/Stewardess Name Role Phone Unavailable Primary Care Provider Unavailabl e Allergies Active Allergy Reactions Criticality Noted Date Comments Red Blood Cells High 12/23/2011 Antibodies-Difficult to Crossmatch DO NOT REMOVE Please contact the Blood Bank at [phone] for questions. Medications Medication Sig Dispensed Refills [...] 2 Overview (05/09/2013): EGD 05/2003 (Dr Nj, [facility]): normal, no biopsies taken Assessment & Plan (09/29/2011 3:04 PM EDT): Switched from prilosec to zantac Carpal tunnel syndrome 05/14/2011 Overview (05/09/2013): eval 12/2003 Dr Ortiz ([facility]), bilat symptoms R>L NCS: mild median nerve entrapment at wrists, L>R. No evidence for ulnar nerve entrapment or neuropathy. Scanned in CIS Depression Overview (05/09/2013): Hx depression prior to 2003 Re-eval 2003 with PCP at [facility] Prior tx paroxetine, lexapro Post depression sx [...] R wrist, s/p excision 06/29, Dr Cabrales ([facility]) Healthcare maintenance Overview (05/09/2013): Records from [facility] received 03/2013. tdap 02/14/2009 (we gave at [...] insulin HPV Routine 03/05/2017 9:28 AM EST CREATIVE SERVICES PRODUCER CYTOLOGY FINAL REPORT Routine 03/05/2017 9:28 AM EST LIPID PANEL (REFLEX DIRECT LDL) Routine 03/05/2017 8:17 AM EST Dyslipidemia HIV SCREEN, 4TH GENERATION ([facility]/CGP/APD/NLH) Routine 05/29/2011 12:38 PM EST Unspecified high-risk from Last 3 Months or Most Recently Relevant to Health Maintenance Results * (ABNORMAL) Basic Metabolic Panel (non-fasting) (10/14/2017 3:46 PM EDT) Glucose Lvl 243(H) 65 - 199 mg/dL [facility] Comment:Diabetes: >=200 mg/d L plus symptoms BUN 16 8 - 18 mg/dL [facility] Creatinine 0.63(L) 0.70 - 1.20 mg/dL [facility] Sodium 139 135 - 145 mmol/L [facility] [...] 107 mmol/L [facility] CO2 25 22 - 31 mmol/L [facility] Anion Gap 15 5 - 15 mmol/L [facility] Calcium 9.2 8.5 - 10.5 mg/dL [facility] Estimated GFR 113 >=60 mL/min/1. 73 m?? [facility] Comment: The eGFR was calculated using the CKD-EPI equation. As with all creatinine based estimates of kidney function, eGFR values calculated with the CKD-EPI equation are not accurate in patients with acute kidney failure, extremes of body mass or the acutely ill. http://Spoondate/Dizzionnkdep http://Spoondate/[facility] eGFR 131 >=60 mL/min/1. 73 m?? [facility] Comment: The eGFR was calculated using the CKD-EPI equation. As with all creatinine based estimates of kidney function, eGFR values calculated with the CKD-EPI equation are not accurate in patients with acute kidney failure, extremes of body mass or the acutely ill. http://Spoondate/Dizzionnkdep http://Spoondate/[facility] Blood specimen (specimen) 10/14/2017 3:46 PM EDT 10/14/2017 3:52 PM EDT Narrative Resulting Agency Comment Spec In Lab Malgorzata Pappas APRN CHEMISTRY ORDERABLES [facility] [place] [address] * (ABNORMAL) Hemoglobin A1c (08/19/2017 3:27 PM EDT) Hemoglobin A1C 6.9(H) 4.3 - 5.6 % [facility] [...] Mellitus, Diabetes Care 2013; 36: Suppl. 1, S67-07 Est Avg Gluc 151 mg/dL [facility] Comment: eAG equivalents for HbA1c [...] into estimated average glucose values. ??Diabetes Care 2008:31(8):8337-9422. Blood specimen (specimen) 08/19/2017 3:27 PM EDT 08/19/2017 3:34 PM EDT Narrative Resulting Agency Comment Spec In Lab Malgorzata Pappas APRN CHEMISTRY ORDERABLES [facility] [place] [address] * U Albumin/Cre Ratio (06/03/2017 9:41 AM [...] [place] MD URINE ORDERABLES Performing Organization Address [facility] de Phone Number [facility] [place] [address] * HPV (03/05/2017 9:28 AM EST) HPV 16 NEGATIVE NEGATIVE [facility] HPV 18 NEGATIVE NEGATIVE [facility] HPV Other HR NEGATIVE NEGATIVE [facility] HPV Interpretation See Comment [facility] Comment: NEGATIVE for high-risk HPV [...] Agency Comment Spec In Lab Rosalva Cardenas FAMILY WORKER PATHOLOGY/CYTOLOGY O RDERABLES Performing Organization Address [facility] de Phone Number [facility] [place] [address] * Field Service Technician Cytology Final Report (03/05/2017 9:28 AM EST) Field Service Technician Cytology Final Report [id number] ? Location: [facility] The signing pathologist has (i) examined the relevant preparation(s) for the specimen(s) and (ii) rendered or confirmed the diagnosis(es). . ? Field Service Technician Final DIAGNOSIS Normal Negative for Intraepithelial Lesion or Malignancy (NILM). For consensus guidelines for the management of cervical cancer screening test results, please see: ?? http://www.asccp.o rg . Electronically signed by: ??Supriya REYNOSO(ASCP)Coleen Verified: ??03/17/2017 ?Bsa Officer Performed at: ??-[facility] Dept. of Pathology, [place], [place] HPV RESULTS HPV16 (Result) ?Negative HPV18 [...] Clinical Genomics and Advanced Technology (CGAT) at [facility]. ? - Marvin Lorenzana, PhD, [facility], Director-[facility] STATEMENT OF ADEQUACY Specimen submitted is satisfactory. Endocervical component present. CLINICAL INFORMATION HPV Option: ?Concurrent HPV and Pap Preparation: ? Liquid based Pap Specimen Source: ? Cervical/Endocervi loni LMP: ? n/a Hormones?: ? Yes Hysterectomy?: ? No ?: ? No ?: ? No I.U.D.?: ? No Pelvic Radiation: ?No Prior CREATIVE SERVICES PRODUCER Therapy?: ?No Hist Abnl Pap/Biopsy?: ?? No Hist of HPV Vaccine?: ?No Hist of Smoking?: ?No Hist of NIKHIL exposure?: ?? No ICD Diagnosis: ? Z12.4 Encounter for screening for malignant neoplasm of cervix Clinical Data, Significant Therapy and Clinical Impression ?? : . CLINICAL INFORMATION ?_ This Pap Test has been evaluated with the assistance of the [employer] Pap Test Imaging System. Note: The Pap test is a screening test for cervical cancer with an inherent false-negative rate dependent upon several variables. ??For further information please contact the [facility] Laboratory. Reference: ??Amanda CS. ??Process Safety Specialist of Pap Smear Results. ??In: ??Barbara BS, [facility], ed. ??The Pap Smear. ??[place]: ??Mendoza, 2002: ??71-77. [facility] 03/05/2017 9:28 AM EST Rosalva Cardenas FAMILY WORKER PATHOLOGY/CYTOLOGY O RDERABLES [facility] [place] [address] * (ABNORMAL) Lipid Panel (03/05/2017 8:17 AM [...] greater than or equal to 190 mg/dL. [email or web address] Adults aged 40-75 with LDL 70-189 mg/dL should have their 10 year ASCVD risk estimated with the ACC/AHA ASCVD risk senior electrical estimator http://tools.acc.org/XECAM-Orte-Qrqyfskbp/ Statin should be discussed if risk greater [...] Narayanan MD CHEMISTRY ORDERABLES Performing Organization Address City/[facility]/ZIP Co de Phone Number [facility] [place] [address] * HIV (05/29/2011 12:38 PM EST) HIV 1/2 Ab Negative [facility] Blood specimen (specimen) 05/29/2011 12:38 PM EST 05/29/2011 12:40 PM EST Marilyn Reilly MD IMMUNOLOGY ORDERAB L[facility] from Last 3 Months or Most Recently [...]
--- OUTSIDE RECORDS SUMMARY | 2023-11-10 01:09 | XMS_ITS | Encounter Summary ---
Author Organization [facility] Address [facility] [place] [address] Care Team Providers Care Home Health Aide Name Role Phone Enoch Medina MD Primary Care Provider [phone] Reason for Visit * Reason Onset Date Comments Medication Refill 03/30/2019 Encounter Details Date Type Department Care Team (Late st Contact Info) Description 03/30/2019 Refill Internal Medicine at [facility] [address] [place] [address] Carlos Alberto Ag MD [facility] [place] [address] Menstrual disorder; Essential hypertension; Uncontrolled type 2 [...] insulin documented in this encounter Care Teams Home Health Aide Relationship Specialty Start Date End Date Enoch Medina MD [facility] [address] [place] [address] PCP - General Family Medicine 08/22/20 06/03/21 documented as of this encounter
--- OUTSIDE RECORDS SUMMARY | 2023-11-10 01:09 | XMS_ITS | Encounter Summary ---
Author Organization [facility] [place] [address] Care Team Providers Care Escort Car Driver Name Role Phone Carlos Alberto Ag MD Primary Care Provider Reason for Visit * Reason Onset Date Comments Other 09/12/2019 Encounter Details Date Type Department Care Team (Late st Contact Info) Description 09/12/2019 Telephone Internal Medicine at [facility] [place] [phone] Carmen Vaca [facility] [place] [address] Other Social History Tobacco Use Types Packs/Day [...] Notes * [facility] 12[facility]54 PM EDT Primary Care & Psychiatry Collaborative Care Called to follow up on IMPACT, mood, referral to Dr. Sanchez, safety concerns. Left and my message. Carmen Vaca M.S., [facility] Behavioral Health Clinician (C) Primary Care & Psychiatry Collaborative Care [facility] Direct # [phone] Clinic#: [phone] Pager [phone] documented in this encounter Plan of Treatment Not on file documented as of this encounter Visit Diagnoses Not on filedocumented in this encounter Care Teams Escort Car Driver Relationship Specialty Start Date End Date Carlos Alberto Ag MD [facility] [place] [address] PCP - General General Internal Medicine 04/26/17 10/31/19 documented as of this encounter
--- OUTSIDE RECORDS SUMMARY | 2023-11-10 01:09 | XMS_ITS | Encounter Summary ---
Author Organization [facility] [place] [address] Care Team Providers Care Aromatherapist Name Role Phone Carlos Alberto Ag MD Primary Care Provider Reason for Visit * Reason Onset Date Comments Medication Refill 08/15/2019 Encounter Details Date Type Department Care Team (Late st Contact Info) Description 08/15/2019 [place] [address] Carlos Alberto Ag MD [facility] [address] [place] [address] Gastroesophageal reflux disease, esophagitis presence not specified; [...] hypertension documented in this encounter Care Teams Aromatherapist Relationship Specialty Start Date End Date Carlos Alberto Ag MD [facility] [address] [place] [address] PCP - General General Internal Medicine 04/26/17 10/31/19 documented as of this encounter
--- OUTSIDE RECORDS SUMMARY | 2023-11-10 01:09 | XMS_ITS | Encounter Summary ---
Author Organization [facility] Address [facility] [place] [address] Care Team Providers Care Assistant Women'S Soccer Coach Name Role Phone Enoch Medina MD Primary Care Provider [phone] Reason for Visit * Reason Onset Date Comments Medication Refill 03/24/2019 Encounter Details Date Type Department Care Team (Late st Contact Info) Description 03/24/2019 Refill Internal Medicine at [facility] [address] [place] [address] Carlos Alberto Ag MD [facility] [place] [address] Menstrual disorder; Essential hypertension; Uncontrolled type 2 [...] insulin documented in this encounter Care Teams Assistant Women'S Soccer Coach Relationship Specialty Start Date End Date Enoch Medina MD [facility] [address] [place] [address] PCP - General Family Medicine 08/22/20 06/03/21 documented as of this encounter
--- OUTSIDE RECORDS SUMMARY | 2023-11-10 01:09 | XMS_ITS | Encounter Summary ---
Author Organization [facility] [place] [address] Care Team Providers Care Manager Transport Name Role Phone Carlos Alberto Ag MD Primary Care Provider Reason for Visit * Reason Onset Date Comments Other 09/06/2019 Encounter Details Date Type Department Care Team ([facility] st Contact Info) Description 09/06/2019 Telephone Internal Medicine at [facility] [place] [phone] Carmen Vaca, [facility] [place] [address] Other Social History Tobacco Use Types Packs/Day [...] Notes * Telephone Encounter - Carmen Vaca [facility] - 09/06/2019 9:46 AM EDT Primary Care & Psychiatry Collaborative Care Tried to call both listed phone numbers to follow up on IMPACT and referral to Dr. Sanchez. Left .Followed up with my message with attached questionnaires. Carmen Vaca M.S., [facility] Behavioral Health Clinician (C) Primary Care & Psychiatry Collaborative Care [facility] Direct # [phone] Clinic#: [phone] Pager [phone] documented in this encounter Plan of Treatment Not on file documented as of this encounter Visit Diagnoses Not on filedocumented in this encounter Care Teams Manager Transport Relationship Specialty Start Date End Date Carlos Alberto Ag MD [facility] GENER[place] [address] PCP - General General Internal Medicine 04/26/17 10/31/19 documented as of this encounter
--- OUTSIDE RECORDS SUMMARY | 2023-11-10 01:09 | XMS_ITS | Encounter Summary ---
Author Organization [facility] [place] [address] Care Team Providers Care Bobcat Operator Name Role Phone Carlos Alberto Ag MD Primary Care Provider Reason for Visit * Reason Onset Date Comments Other 08/22/2019 Encounter Details Date Type Department Care Team ([facility] st Contact Info) Description 08/22/2019 Telephone Internal Medicine at [facility] [place] [phone] Carmen Vaca, [facility] [place] [address] Other Social History Tobacco Use Types Packs/Day [...] Notes * Telephone Encounter - Carmen Vaca [facility] - 08/22/2019 10:54 AM EDT Primary Care & Psychiatry Collaborative Care Called to follow up on referral from Dr. Ag. [facility]. Plan to sent my message as well to connect and follow up on mental health symptoms. Carmen Vaca M.S., [facility] Behavioral Health Clinician ([facility]) Primary Care & Psychiatry Collaborative Care [facility] Direct # [phone] Clinic#: [phone] Pager [phone] documented in this encounter Plan of Treatment Not on file documented as of this encounter Visit Diagnoses Not on filedocumented in this encounter Care Teams Bobcat Operator Relationship Specialty Start Date End Date Carlos Alberto Ag MD [facility] [place] [address] PCP - General General Internal Medicine 04/26/17 10/31/19 documented as of this encounter
--- OUTSIDE RECORDS SUMMARY | 2023-11-10 01:09 | XMS_ITS | Encounter Summary ---
Author Organization [facility] [place] [address] Care Team Providers Care Transportation Dispatch Manager Name Role Phone Carlos Alberto Ag MD Primary Care Provider Reason for Visit * Reason Onset Date Comments Medication Refill 05/13/2019 Encounter Details Date Type Department Care Team (Late st Contact Info) Description 05/13/2019 [place] [address] Carlos Alberto Ag MD [facility] [address] [place] [address] Gastroesophageal reflux disease, esophagitis presence not specified [...] specified documented in this encounter Care Teams Transportation Dispatch Manager Relationship Specialty Start Date End Date Carlos Alberto Ag MD [facility] [place] [address] PCP - General General Internal Medicine 04/26/17 10/31/19 documented as of this encounter
--- OUTSIDE RECORDS SUMMARY | 2023-11-10 01:09 | XMS_ITS | Encounter Summary ---
Author Organization [facility] Address [facility] [place] [address] Care Team Providers Care Sponsorship Manager Name Role Phone Carlos Alberto Ag MD Primary Care Provider Encounter Details Date Type Department Care Team (Late st Contact Info) Description 08/22/2019 Telephone Internal Medicine at [facility] [place] [phone] Ofe Craig Social History Tobacco Use Types [...] on filedocumented in this encounter Care Teams Sponsorship Manager Relationship Specialty Start Date End Date Carlos Alberto Ag MD [facility] GENER[place] [address] PCP - General General Internal Medicine 04/26/17 10/31/19 documented as of this encounter
--- OUTSIDE RECORDS SUMMARY | 2023-11-10 01:09 | XMS_ITS | Encounter Summary ---
Author Organization [facility] [place] [address] Care Team Providers Care Top Case Assembler Name Role Phone Carlos Alberto Ag MD Primary Care Provider Reason for Visit * Reason Onset Date Comments Other 08/28/2019 Encounter Details Date Type Department Care Team (Late st Contact Info) Description 08/28/2019 Telephone Internal Medicine at [facility] [phone] Carmen Vaca [facility] [address] Other Social History Tobacco Use Types Packs/Day [...] Notes * Telephone Encounter - Carmen Vaca [facility] - 08/28/2019 1:30 PM EDT Primary Care [...] bad experiences in therapy stating I can travel counselor myself. Patient is currently out of [...] Ag MD [ ] Psychiatrist Medications 08/21/19 6964 Medication Sig Taking? omeprazole (PriLOSEC) 20 mg [...] daily. Please call to schedule an appt: [phone] venlafaxine (EFFEXOR-XR) 150 mg Capsule, Sust. Release [...] National Suicide Prevention Lifeline at (TALK) or [facility] Psychiatry [phone] Carmen Vaca [facility] Behavioral Health Clinician ([facility]HC) Primary Care & Psychiatry Collaborative Care [address] [phone] [facility] [phone] Pager [phone] documented in this encounter Plan of Treatment Not on file documented as of this encounter Visit Diagnoses Not on filedocumented in this encounter Care Teams Top Case Assembler Relationship Specialty Start Date End Date Carlos Alberto Ag MD [facility] GENER[place] [address] PCP - General General Internal Medicine 04/26/17 10/31/19 documented as of this encounter
--- OUTSIDE RECORDS SUMMARY | 2023-11-10 01:09 | XMS_ITS | Encounter Summary ---
Author Organization [facility] [place] [address] Care Team Providers Care Supervisor Winter Name Role Phone Rosemary Howe MD Primary Care Provider [phone] Encounter Details Date Type Department Care Team (Latest Contact Info) Description 11/01/2019 11:00 AM EDT TH Visit (TeleHealth) Internal Medicine at [facility] [address] [place] [address] Rosemary Howe MD [facility] [place] [address] Benign paroxysmal positional vertigo, unspecified laterality Social [...] more? Visit our health information library at [email or web address] You can also view health information on [employer], your personal patient account. Log in or sign uptoday. Enter P834 in the search box to learn more about [facility] at Home for Vertigo: Exercises. Current as of: March 08, 2019?Content Version: 12.5 ?? [id number] [employer]. Care instructions adapted under license by [facility]. If you have questions about a medical condition or this instruction, always ask your healthcare professional. [employer] disclaims any warranty or liability for your use of this information. documented in this encounter Progress Notes * Rosemary Howe MD - 11/01/2019 11:00 AM EDT Telephone visit COVID 19 pandemic She is in [place], [place] Discussed this visit will be billed [...] laterality documented in this encounter Care Teams Supervisor Winter Relationship Specialty Start Date End Date Rosemary Howe MD [facility] [address] [place] [address] PCP - General General Internal Medicine 11/01/1908/21 documented as of this encounter
--- OUTSIDE RECORDS SUMMARY | 2023-11-10 01:09 | XMS_ITS | Encounter Summary ---
Author Organization [facility] [place] [address] Care Team Providers Care Criminal Defense Lawyer Name Role Phone Enoch Medina MD Primary Care Provider [phone] Reason for Visit * Reason Comments Medication Refill Encounter Details Date Type Department Care Team ([facility] st Contact Info) Description 04/02/2019 Ref[place] [address] Carlos Alberto Ag MD [facility] [place] [address] Menstrual disorder Social History Tobacco Use Types [...] tract documented in this encounter Care Teams Criminal Defense Lawyer Relationship Specialty Start Date End Date Enoch Medina MD [facility] [place] [address] PCP - General Family Medicine 08/22/20 06/03/21 documented as of this encounter
--- OUTSIDE RECORDS SUMMARY | 2023-11-10 01:09 | XMS_ITS | Encounter Summary ---
Author Organization [facility] Address [facility] [place] [address] Care Team Providers Care Seconds Grader Name Role Phone Rosemary Howe MD Primary Care Provider [phone] Encounter Details Date Type Department Care Team (Late st Contact Info) Description 09/01/2019 Telephone [place] [phone] Nela Haines Social History Tobacco Use Types [...] EDT Pt has referral to see Dr Sanchez that needs to be scheduled as a telehealth [facility] 60 minutes documented in this encounter Plan of Treatment Not on file documented as of this encounter Visit Diagnoses Not on filedocumented in this encounter Care Teams Seconds Grader Relationship Specialty Start Date End Date Rosemary Howe MD [facility] [address] [place] [address] PCP - General General Internal Medicine 11/01/1908/21 documented as of this encounter
--- OUTSIDE RECORDS SUMMARY | 2023-11-10 01:09 | XMS_ITS | Encounter Summary ---
Author Organization [facility] [place] [address] Care Team Providers Care Business Systems Consultant Name Role Phone Carlos Alberto Ag MD Primary Care Provider Reason for Referral * Consultation (Urgent) - Closed Specialty Diagnoses / Procedures Referred By Contac t Referred To Contact Internal Medicine Diagnoses Severe episode of recurrent major depressive disorder, without psychotic features Carlos Alberto Ag MD [facility] [place] [address] [address] Referral ID Status Reason Start Date Expiration Date V isits Requested Visits Authorized [id number] Closed Specialty Service Requested 08/21/2019 08/20/2020 1 1 Reason for Visit * Reason Comments Medication Check refills needed. No o ther concerns at this time. Encounter Details Date Type Department Care Team (Late st Contact Info) Description 08/21/2019 1:30 PM EDT TH Visit (TeleHealth) [place] [address] Carlos Alberto Ag MD [facility] [place] [address] Gastroesophageal reflux disease, esophagitis presence [...] at the time of the phone call: [facility](document location including state) Contact information [address] [facility] [address] (M) [phone] (H) Call start time: 2:02 pm Reason [...] daily. Please call to schedule an appt: [phone] Yes venlafaxine (EFFEXOR-XR) 150 mg Capsule, Sust. [...] phone speaks with every day. Works for [employer]. Thinking that world would be better off [...] for watching her children.Will reach out to [facility] to check in this week which patient [...] 3-5 days then stop -Reach out to aCrmen Vaca and [facility] #HTN -Refill lisinopril 10 mg QD #Seasonal allergies -Refill claritin prn Carlos Alberto Ag MD Total time spent associated with the visit including patient discussion and pre/post visit chart activities: 45 minutes Telephone/Telehealth visit codes: Established Patient New Patient 51334 (10 minute visit) 26736 (10 minute visit) 67925 (15 minute visit) 93775 (20 minute visit) 94269 (25 minute visit) 68516 (30 minute visit) 96010 (40 minute visit) 83737 (45 minute visit) 60071 (60 minute visit) * Jacqueline Cleveland MD - 08/21/2019 1:30 PM EDT I was physically present in the clinic and discussed the case with the resident [id number] at thetime of the visit or immediately [...] she would welcome a reach out from [facility] Plan cont effexor taper and start prozac [...] unspecified documented in this encounter Care Teams Business Systems Consultant Relationship Specialty Start Date End Date Carlos Alberto Ag MD [facility] [place] [address] PCP - General General Internal Medicine 04/26/17 10/31/19 documented as of this encounter
--- OUTSIDE RECORDS SUMMARY | 2023-11-10 01:09 | XMS_ITS | Encounter Summary ---
Author Organization [facility] [place] [address] Care Team Providers Care Senior Game Designer Name Role Phone Carlos Alberto Ag MD Primary Care Provider Encounter Details Date Type Department Care Team (Late st Contact Info) Description 03/30/2019 Orders Only [place] [address] Carlos Alberto Ag MD [facility] [address] [place] [address] Essential hypertension; Uncontrolled type 2 diabetes mellitus [...] tract documented in this encounter Care Teams Senior Game Designer Relationship Specialty Start Date End Date Carlos Alberto Ag MD [facility] [address] [place] [address] PCP - General General Internal Medicine 04/26/17 10/31/19 documented as of this encounter
--- OUTSIDE RECORDS SUMMARY | 2023-11-10 01:09 | XMS_ITS | Encounter Summary ---
Author Organization [facility] [place] [address] Care Team Providers Care Private Branch Exchange Operator Name Role Phone Carlos Alberto Ag MD Primary Care Provider Reason for Visit * Reason Onset Date Comments Medication Refill 07/07/2019 Encounter Details Date Type Department Care Team (Late st Contact Info) Description 07/07/2019 [place] [address] Carlos Alberto Ag MD [facility] [address] [place] [address] Essential hypertension; Uncontrolled type 2 diabetes mellitus [...] insulin documented in this encounter Care Teams Private Branch Exchange Operator Relationship Specialty Start Date End Date Carlos Alberto Ag MD [facility] [address] [place] [address] PCP - General General Internal Medicine 04/26/17 10/31/19 documented as of this encounter
--- OUTSIDE RECORDS SUMMARY | 2023-11-10 01:09 | XMS_ITS | Encounter Summary ---
Author Organization [facility] [place] [address] Care Team Providers Care Rehabilitation Coordinator Name Role Phone Carlos Alberto Ag MD Primary Care Provider Reason for Visit * Reason Onset Date Comments Medication Refill 09/09/2019 Encounter Details Date Type Department Care Team (Late st Contact Info) Description 09/09/2019 [place] [address] Carlos Alberto Ag MD [facility] [place] [address] Uncontrolled type 2 diabetes mellitus without complication, [...] insulin documented in this encounter Care Teams Rehabilitation Coordinator Relationship Specialty Start Date End Date Carlos Alberto Ag MD [facility] [place] [address] PCP - General General Internal Medicine 04/26/17 10/31/19 documented as of this encounter
--- OUTSIDE RECORDS SUMMARY | 2023-11-10 01:09 | XMS_ITS | Encounter Summary ---
Author Organization [facility] [place] [address] Care Team Providers Care Application Support Analyst Name Role Phone Carlos Alberto Ag MD Primary Care Provider Reason for Visit * Reason Onset Date Comments Medication Refill 04/03/2019 Encounter Details Date Type Department Care Team (Late st Contact Info) Description 04/03/2019 Ref[place] [address] Gail Reilly LPN Essential hypertension; Uncontrolled type [...] insulin documented in this encounter Care Teams Application Support Analyst Relationship Specialty Start Date End Date Carlos Alberto Ag MD [facility] [place] [address] PCP - General General Internal Medicine 04/26/17 10/31/19 documented as of this encounter
--- OUTSIDE RECORDS SUMMARY | 2023-11-10 01:09 | XMS_ITS | Encounter Summary ---
Author Organization [facility] Address [facility] [place] [address] Care Team Providers Care Icu Rn Name Role Phone Rosemary Howe MD Primary Care Provider [phone] Encounter Details Date Type Department Care Team (Late st Contact Info) Description 09/15/2019 Telephone [place] [address] Ofe Craig Social History Tobacco Use Types [...] on filedocumented in this encounter Care Teams Icu Rn Relationship Specialty Start Date End Date Rosemary Howe MD [facility] [address] [place] [address] PCP - General General Internal Medicine 11/01/1908/21 documented as of this encounter
--- OUTSIDE RECORDS SUMMARY | 2023-11-10 01:09 | XMS_ITS | Encounter Summary ---
Author Organization [facility] [place] [address] Care Team Providers Care Charge Authorizer Name Role Phone Carlos Alberto Ag MD Primary Care Provider Reason for Visit * Reason Onset Date Comments Medication Refill 09/21/2019 Encounter Details Date Type Department Care Team (Late st Contact Info) Description 09/21/2019 [place] [address] Carlos Alberto Ag MD [facility] [address] [place] [address] Menstrual disorder Social History Tobacco Use Types [...] tract documented in this encounter Care Teams Charge Authorizer Relationship Specialty Start Date End Date Carlos Alberto Ag MD [facility] [address] [place] [address] PCP - General General Internal Medicine 04/26/17 10/31/19 documented as of this encounter
--- OUTSIDE RECORDS SUMMARY | 2023-11-10 01:09 | XMS_ITS | Encounter Summary ---
Author Organization [facility] [place] [address] Care Team Providers Care Furnace Erector Name Role Phone Carlos Alberto Ag MD Primary Care Provider Reason for Referral * Consultation (Routine) - Closed Specialty Diagnoses / Procedures Referred By Jay flores Referred To Contact Internal Medicine Diagnoses Severe episode of recurrent major depressive disorder, without psychotic features Carmen Vaca [facility] [place] [id number] Gail Sanchez MD [facility] [place] [id number] Referral ID Status Reason Start Date Expiration Date V isits Requested Visits Authorized [id number] Closed Specialty Service Requested 08/28/2019 08/27/2020 1 1 Encounter Details Date Type Department Care Team (Late st Contact Info) Description 08/28/2019 Orders Only Internal Medicine at [facility] [place] [id number] Carmen Vaca [facility] [place] [id number] Severe episode of recurrent major depressive disorder, [...] features documented in this encounter Care Teams Furnace Erector Relationship Specialty Start Date End Date Carlos Alberto Ag MD [facility] [place] [address] PCP - General General Internal Medicine 04/26/17 10/31/19 documented as of this encounter
--- OUTSIDE RECORDS SUMMARY | 2023-11-10 01:10 | XMS_ITS | Encounter Summary ---
Author Organization [facility] [place] [address] Care Team Providers Care Grading Clerk Name Role Phone Carlos Alberto Ag MD Primary Care Provider Reason for Referral * Consultation (Routine) - Closed Specialty Diagnoses / Procedures Referred By Contmak t Referred To Contact Internal Medicine Diagnoses Current moderate episode of major depressive disorder, unspecified whether recurrent Malgorzata Pappas APRN [facility] GENER[facility] INTERNAL [place] [address] [address] Referral ID Status Reason Start Date Expiration Date V isits Requested Visits Authorized [id number] Closed Specialty Service Requested 06/24/2018 06/24/2019 1 1 Reason for Visit * Reason Comments Depression Other stomach issues for lulu gillespie, nausea, food doesn't settle well, diarrhea Encounter Details Date Type Department Care Team (Late st Contact Info) Description 06/24/2018 10:00 AM EST Office Visit [place] [address] Malgorzata Pappas APRN [facility] [address] INTERNAL [place] [address] Current moderate episode of major [...] the numbers for these national suicide hotlines: 1-745-720-TALK ( ) and 1-875-JQKUNKK ( ). If you or someone you [...] national suicide hotlines: -TALK ( ) and 3-858-SOSIXSH ( ). If you or someone you [...] more? Visit our health information library at [email or web address] [email or web address]. You can also view health information on [employer], your personal patient account. Log in or sign uptoday. Enter Z126 in the search box to learn more about Learning About Mood Disorders. Current as of: December 28, 2017 Content Version: 11.9 ?? [id number] [employer]. Care instructions adapted under license by [facility]. If you have questions about a medical condition or this instruction, always ask your healthcare professional. [employer] disclaims any warranty or liability for your [...] recurrent documented in this encounter Care Teams Grading Clerk Relationship Specialty Start Date End Date Carlos Alberto Ag MD [facility] GENER[facility] INTERNAL [place] [address] PCP - General Internal Medicine 04/26/17 10/31/19 documented as of this encounter
--- OUTSIDE RECORDS SUMMARY | 2023-11-10 01:10 | XMS_ITS | Encounter Summary ---
Author Organization [facility] [place] [address] Care Team Providers Care Film Historian Name Role Phone Enoch Medina MD Primary Care Provider [phone] Reason for Visit * Reason Comments Medication Refill Encounter Details Date Type Department Care Team ([facility] st Contact Info) Description 10/16/2016 Refill Internal Medicine at [facility] [address] [place] [address] [facility] [place] [address] Essential hypertension Social History Tobacco Use Types [...] hypertension documented in this encounter Care Teams Film Historian Relationship Specialty Start Date End Date Enoch Medina MD [facility] [place] [address] PCP - General Family Medicine 08/22/20 06/03/21 documented as of this encounter
--- OUTSIDE RECORDS SUMMARY | 2023-11-10 01:10 | XMS_ITS | Encounter Summary ---
Author Organization [facility] [place] [address] Care Team Providers Care Keg Header Name Role Phone Pita Narayanan MD Primary Care Provider [phone] Reason for Referral * Consultation (Routine) - Specialty Diagnoses / Procedures Referred By Jay flores Referred To Contact Sleep Center Diagnoses Obstructive sleep apnea Pita Narayanan MD [facility] [place] [address] [facility] [address] [place] [address] Referral ID Status Reason Start Date Expiration Date Visits Requested Visits Authorized [id number] Specialty Service Requested 05/27/2016 05/27/2017 1 1 Reason for Visit * Reason Comments Follow-up discuss hip and slee ping at some point, currently more concerned about depression and sugars Encounter Details Date Type Department Care Team (Late st Contact Info) Description 05/27/2016 2:00 PM EST Office Visit Internal Medicine at [facility] [address] [place] [address] Pita Narayanan MD [facility] [place] [address] Major depressive disorder, recurrent episode, [...] Will mail the lab slip. Get at [place] in the week before the visit Fasting [...] not make it Has to reschedule The munitions worker called her No SI reported today [...] Will mail the lab slip. Get at [place] in the week before the visit. FLP [...] EST) HepB Surface Ab Quant <3.5 IU/L [facility] Comment: HepB Surface Ab Quant: Unvaccinated: < 8.5 IU/L Vaccinated: > 11.5 IU/L HepB Surface Ab Negative [facility] Comment: Patient is presumed to be not vaccinated or immune to HBV infection. Expected Results: Vaccinated: Positive Unvaccinated: Negative Blood specimen (specimen) 03/05/2017 8:17 AM EST 03/05/2017 9:56 AM EST Narrative Resulting Agency Comment Spec In Lab Pita Narayanan MD IMMUNOLOGY ORDERABLE S Performing Organization Address City/[facility]/ZIP Co de Phone Number [facility] [place] [address] * (ABNORMAL) Lipid Panel (03/05/2017 8:17 AM EST) Chol, Total 166 <=239 mg/dL [facility] Triglycerides 309(H) <=199 mg/dL [facility] HDL 32(L) >=40 mg/dL [facility] LDL Cholesterol 72 <=190 mg/dL [facility] Chol/HDL Ratio 5.2 ratio [facility] Lipid Interpretation See Note [facility] Comment: Lipid management should be guided by a patient? s ASCVD risk, goals and preferences. ACC/AHA Guidelines recommend high intensity statin if clinical ASCVD or LDL greater than or equal to 190 mg/dL. http://ReaMetrix.com/XCF-OCE-Vlvgqpotx Adults aged 40-75 with LDL 70-189 mg/dL should have their 10 year ASCVD risk estimated with the ACC/AHA ASCVD risk senior cost estimator http://tools.acc.org/MPBRE-Lkfc-Dzpraafov/ Statin should be discussed if risk greater [...] CHEMISTRY ORDERABLES Performing Organization Address City/[facility]/ZIP Co de Phone Number [facility] [place] [address] documented in this encounter Visit Diagnoses Diagnosis [...] facility documented in this encounter Care Teams Keg Header Relationship Specialty Start Date End Date Pita Narayanan MD [facility] [address] [facility] [place] [address] PCP - General General Internal Medicine 01/28/1604/22 documented as of this encounter
--- OUTSIDE RECORDS SUMMARY | 2023-11-10 01:10 | XMS_ITS | Encounter Summary ---
Author Organization [facility] [place] [address] Care Team Providers Care Sole Ruffer Name Role Phone Pita Narayanan MD Primary Care Provider [phone] Reason for Visit * Reason Onset Date Comments [facility] Encounter Details Date Type Department Care Team (Late st Contact Info) Description 08/21/2016 Refill Family Medicine at [facility] [address] [place] [address] Michael Vazquez MA Type 2 diabetes mellitus without complication, unspecified filler leaf cutter long insulin use status (Primary Dx) Social History [...] Authorization for Primary [place] [address] Patient: Sarah Moncada Patient : 1980 Subscriber Insurance: [employer] Sent via: [employer] Thomas: [id number] Physician: Pita Narayanan MD Return [...] Type 2 diabetes mellitus without complication, unspecified filler leaf cutter long insulin use status- Primary documented in this encounter Care Teams Sole Ruffer Relationship Specialty Start Date End Date Pita Narayanan MD [facility] [address] [place] [address] PCP - General General Internal Medicine 01/28/1604/22 documented as of this encounter
--- OUTSIDE RECORDS SUMMARY | 2023-11-10 01:10 | XMS_ITS | Encounter Summary ---
Author Organization [facility] [place] [address] Care Team Providers Care Floral Artist Name Role Phone Carlos Alberto Ag MD Primary Care Provider Reason for Visit * Reason Comments Medication Refill Encounter Details Date Type Department Care Team (Late st Contact Info) Description 06/22/2018 [place] [address] Malgorzata Pappas, THERMIT WELDING MACHINE OPERATOR [facility] [place] [address] Gastroesophageal reflux disease, esophagitis presence not specified; [...] hypertension documented in this encounter Care Teams Floral Artist Relationship Specialty Start Date End Date Carlos Alberto Ag MD [facility] [address] [place] [address] PCP - General General Internal Medicine 04/26/17 10/31/19 documented as of this encounter
--- OUTSIDE RECORDS SUMMARY | 2023-11-10 01:10 | XMS_ITS | Encounter Summary ---
Author Organization [facility] [place] [address] Care Team Providers Care Gandy Dancer Name Role Phone Carlos Alberto Ag MD Primary Care Provider Encounter Details Date Type Department Care Team (Late st Contact Info) Description 06/03/2017 Telephone [place] [address] Carlos Alberto Ag MD [facility] [place] [address] Social History Tobacco Use Types Packs/Day Years [...] on filedocumented in this encounter Care Teams Gandy Dancer Relationship Specialty Start Date End Date Carlos Alberto Ag MD [facility] [place] [address] PCP - General General Internal Medicine 04/26/17 10/31/19 documented as of this encounter
--- OUTSIDE RECORDS SUMMARY | 2023-11-10 01:10 | XMS_ITS | Encounter Summary ---
Author Organization [facility] [place] [address] Care Team Providers Care Shop Steward Name Role Phone Carlos Alberto Ag MD Primary Care Provider Reason for Visit * Reason Onset Date Comments Medication Refill 11/16/2018 Encounter Details Date Type Department Care Team (Late st Contact Info) Description 11/16/2018 [place] [address] Carlos Alberto Ag MD [facility] [address] [place] [address] Gastroesophageal reflux disease, esophagitis presence not specified; [...] hypertension documented in this encounter Care Teams Shop Steward Relationship Specialty Start Date End Date Carlos Alberto Ag MD [facility] [address] [place] [address] PCP - General General Internal Medicine 04/26/17 10/31/19 documented as of this encounter
--- OUTSIDE RECORDS SUMMARY | 2023-11-10 01:10 | XMS_ITS | Encounter Summary ---
[place] [address] Care Team Providers Care Director Machine Name Role Phone Carlos Alberto Ag MD Primary Care Provider Reason for Visit * Reason Onset Date Comments Prior Authorization 08/09/2018 Venlafaxine Encounter Details Date Type Department Care Team (Late st Contact Info) Description 08/09/2018 Telephone Internal Medicine at [place] [address] [place] [address] Padma Miller CMA Prior Authorization (Venlafaxine) Social [...] Authorization for Primary [place] [address] Request received via: Pharmacy Patient: Sarah Ninoska Moncada Patient : 1980 Subscriber Insurance: [place] Medicaid Insurance Phone #: Sent via: [facility] Thomas/Fax#: [id number] Physician: Carlos Alberto Ag MD Medication Requested: venlafaxine (EFFEXOR-XR) 75 mg Capsule, Sust. Release 24 hr Frequency/Sig: TAKE 3 CAPSULES BY MOUTH DAILY Disp.: 180 Refills: 3 Currently taking: yes If yes, how lon04/2016 Diagnosis for this medication: Depression, unspecified depression type (F32.9); Anxiety (F41.9) Prior medications trialed in this patient: Medication: sertraline 25 mg Approx Dates: 0959-4524 Outcome/Adverse Reactions: inadequate response Medication: fluoxetine 10 mg Approx Dates: 2016 Outcome/Adverse Reactions: inadequate response Medication: wellbutrin Approx Dates: 2016 Outcome/Adverse Reactions: inadequate response documented in this encounter Plan of Treatment Not on file documented as of this encounter Visit Diagnoses Not on filedocumented in this encounter Care Teams Director Machine Relationship Specialty Start Date End Date Carlos Alberto Ag MD [facility] [place] [address] PCP - General General Internal Medicine 04/26/17 10/31/19 documented as of this encounter
--- OUTSIDE RECORDS SUMMARY | 2023-11-10 01:10 | XMS_ITS | Encounter Summary ---
Author Organization [facility] [place] [address] Care Team Providers Care Chip Mucker Name Role Phone Pita Narayanan MD Primary Care Provider [phone] Reason for Visit * Reason Comments Gynecologic Exam Encounter Details Date Type Department Care Team ([facility] Contact Info) Description 03/05/2017 9:00 AM EST Office Visit Internal Medicine at [facility] [address] [place] [address] Rosalva Cardenas, [facility] [place] [address] Encounter for screening for cervical cancer Social [...] HPI Sarah is here today for a CRIME PREVENTION WORKER exam/pap only She saw her PCP, Pita [...] REMOVE Please contact the Blood Bank at [phone] for questions. Outpatient Prescriptions Marked as Taking [...] Comments HPV Routine 03/05/2017 9:28 AM EST CRIME PREVENTION WORKER CYTOLOGY INTERPRETATION Routine 03/05/2017 9:28 AM EST CRIME PREVENTION WORKER CYTOLOGY FINAL REPORT Routine 03/05/2017 9:28 AM EST CYTOPATHOLOGY GYNECOLOGICAL Routine 03/05/2017 9:28 AM EST Encounter for screening for cervical cancer documented in this encounter Results * Wire Stretcher Cytology Final Report (03/05/2017 9:28 AM EST) Wire Stretcher Cytology Final Report [id number] ? Location: [facility] The signing pathologist has (i) examined the relevant preparation(s) for the specimen(s) and (ii) rendered or confirmed the diagnosis(es). . ? Wire Stretcher Final DIAGNOSIS Normal Negative for Intraepithelial Lesion or Malignancy (NILM). For consensus guidelines for the management of cervical cancer screening test results, please see: ?? [email or web address] . Electronically signed by: ??Supriya REYNOSO(ASCP)Coleen Verified: ??03/17/2017 ?Tractor Mechanic Apprentice Performed at: ??-[facility] Dept. of Pathology, [place], [place] HPV RESULTS HPV16 (Result) ?Negative HPV18 [...] intended to detect low risk HPV types. PlayHaven kira HPV test Specimen: HPV Testing - Cytology Liquid Based Prep The Antonia kira ? HPV test was validated, performed and results reported through the Laboratory for Clinical Genomics and Advanced Technology (CGAT) at [facility]. ? - Marvin Lorenzana, PhD, [facility], Director-[facility] STATEMENT OF ADEQUACY Specimen submitted is satisfactory. Endocervical component present. CLINICAL INFORMATION HPV Option: ?Concurrent HPV and Pap Preparation: ? Liquid based Pap Specimen Source: ? Cervical/Endocervi loni LMP: ? n/a Hormones?: ? Yes Hysterectomy?: ? No ?: ? No ?: ? No I.U.D.?: ? No Pelvic Radiation: ?No Prior CRIME PREVENTION WORKER Therapy?: ?No Hist Abnl Pap/Biopsy?: ?? No Hist of HPV Vaccine?: ?No Hist of Smoking?: ?No Hist of NIKHIL exposure?: ?? No ICD Diagnosis: ? Z12.4 Encounter for screening for malignant neoplasm of cervix Clinical Data, Significant Therapy and Clinical Impression ?? : . CLINICAL INFORMATION ?_ This Pap Test has been evaluated with the assistance of the inTarvoPrep Pap Test Imaging System. Note: The Pap test is a screening test for cervical cancer with an inherent false-negative rate dependent upon several variables. ??For further information please contact the [facility] Laboratory. Reference: ??Amanda CS. ??Rn Gastroenterology of Pap Smear Results. ??In: ??Barbara BS, [facility], ed. ??The Pap Smear. ??[place]: ??Mendoza, 2002: ??71-77. [facility] 03/05/2017 9:28 AM EST Rosalva L Beaupre REFINERY OPERATOR HELPER PATHOLOGY/CYTOLOGY O RDERABLES Performing Organization Address [facility] de Phone Number [facility] [place] [address] * CRIME PREVENTION WORKER Cytology Interpretation (03/05/2017 9:28 AM EST) Wire Stretcher Cytology Interpretation NILM [facility] Comment:Wire Stretcher Cytology Final R eport Endocervical Component Present [facility] AP Specimen 03/05/2017 9:28 AM EST 03/17/2017 6:12 PM EST Rosalva L Beaupre REFINERY OPERATOR HELPER PATHOLOGY/CYTOLOGY O RDERABLES Performing Organization Address [facility] Co de Phone Number [facility] [place] [address] * HPV (03/05/2017 9:28 AM EST) HPV 16 NEGATIVE NEGATIVE [facility] HPV 18 NEGATIVE NEGATIVE [facility] HPV Other HR NEGATIVE NEGATIVE [facility] HPV Interpretation See Comment [facility] Comment: NEGATIVE for [...] Comment Spec In Lab Rosalva L Beaupre REFINERY OPERATOR HELPER PATHOLOGY/CYTOLOGY O RDERABLES Performing Organization Address [facility] Co de Phone Number [facility] [place] [address] * Cytopathology Gynecological (03/05/2017 9:28 AM EST) AP Specimen 03/05/2017 9:28 AM EST 03/05/2017 1:28 PM EST Narrative [facility] - 03/05/2017 1:28 PM EST Specimen requisition ordered. ??Separate Pathology report to follow Resulting Agency Comment Spec In Lab Rosalva L Beaupre REFINERY OPERATOR HELPER PATHOLOGY/CYTOLOGY O RDERABLES Performing Organization Address City/[facility] Co de Phone Number [facility] [place] [address] documented in this encounter Visit Diagnoses Diagnosis Encounter for screening for cervical cancer documented in this encounter Care Teams Chip Mucker Relationship Specialty Start Date End Date Pita Narayanan MD [facility] [address] [place] [address] PCP - General General Internal Medicine 01/28/1604/22 documented as of this encounter
--- OUTSIDE RECORDS SUMMARY | 2023-11-10 01:10 | XMS_ITS | Encounter Summary ---
Author Organization [facility] [place] [address] Care Team Providers Care Corporate Scheduler Name Role Phone Pita Narayanan MD Primary Care Provider [phone] Reason for Visit * Reason Comments Follow-up Pt states she has be en having issues in regards to her anti-depressant medication in the last few weeks. Encounter Details Date Type Department Care Team (Latest Contact Info) Description 01/29/2017 1:30 PM EDT Office Visit Internal Medicine at [address] [address] [place] [address] Depression, unspecified depression type; Anxiety; Uncontrolled type [...] #depo issue Switched from [facility] to [facility] Having trouble with this. Can't get the 104 mg dose any more at [facility]. Has to use the 150 mg dose. [...] (!) 109 kg (240 lb 6.4 oz) FsY150% BMI 40.25 kg/m2 Alert, looks usual self, [...] type documented in this encounter Care Teams Corporate Scheduler Relationship Specialty Start Date End Date Pita Narayanan MD [facility] [address] [place] [address] PCP - General General Internal Medicine 01/28/1604/22 documented as of this encounter
--- OUTSIDE RECORDS SUMMARY | 2023-11-10 01:10 | XMS_ITS | Encounter Summary ---
Author Organization [facility] [place] [address] Care Team Providers Care Director Of Patient Safety Name Role Phone Carlos Alberto Ag MD Primary Care Provider Reason for Visit * Reason Comments Medication Refill Encounter Details Date Type Department Care Team (Late st Contact Info) Description 02/27/2018 [place] [address] Malgorzata Pappas, LETTERER [facility] [place] [address] Depression, unspecified depression type Social History Tobacco [...] type documented in this encounter Care Teams Director Of Patient Safety Relationship Specialty Start Date End Date Carlos Alberto Ag MD [facility] [address] [place] [address] PCP - General General Internal Medicine 04/26/17 10/31/19 documented as of this encounter
--- OUTSIDE RECORDS SUMMARY | 2023-11-10 01:10 | XMS_ITS | Encounter Summary ---
Author Organization [facility] [place] [address] Care Team Providers Care Branch Sales Manager Name Role Phone Pita Narayanan MD Primary Care Provider [phone] Reason for Visit * Reason Onset Date Comments No Show 08/19/2016 Encounter Details Date Type Department Care Team ([facility] Contact Info) Description 08/19/2016 Telephone Family Medicine at [facility] [address] [place] [address] Marilyn Mock No Show Social History Tobacco [...] on filedocumented in this encounter Care Teams Branch Sales Manager Relationship Specialty Start Date End Date Pita Narayanan MD [facility] [place] [address] PCP - General General Internal Medicine 01/28/1604/22 documented as of this encounter
--- OUTSIDE RECORDS SUMMARY | 2023-11-10 01:10 | XMS_ITS | Encounter Summary ---
Author Organization [facility] Address [facility] [place] [address] Care Team Providers Care Cashier Wrapper Name Role Phone Pita Narayanan MD Primary Care Provider [phone] Reason for Visit * Reason Comments Follow-up DM; has lump under s kin in left armpit, first noticed about 2 wks ago, getting larger and moving forward; discuss venlafaxine dosage, increase?; did Depo at home on [facility] Encounter Details Date Type Department Care Team (Late st Contact Info) Description 08/20/2016 2:30 PM EDT Office Visit Internal Medicine at [address] [address] Pita Narayanan MD [facility] [place] [address] Uncontrolled type 2 diabetes mellitus without complication, [...] Clinician follow up: 3 months [] Certified Padding Machine Operator/Endocrine follow up/referral: [x] Referrals/Labs/Testing: up to date [...] planning Schedule change for 1-2 months, about residential through this Was working 6 days with [...] Clinician follow up: 3 months [] Certified Padding Machine Operator/Endocrine follow up/referral: [x] Referrals/Labs/Testing: up to date [...] hypertension documented in this encounter Care Teams Cashier Wrapper Relationship Specialty Start Date End Date Pita Narayanan MD [facility] [address] [place] [address] PCP - General General Internal Medicine 01/28/1604/22 documented as of this encounter
--- OUTSIDE RECORDS SUMMARY | 2023-11-10 01:10 | XMS_ITS | Encounter Summary ---
Author Organization [facility] Address [facility] [place] [address] Care Team Providers Care Telecommunication Engineer Name Role Phone Enoch Medina MD Primary Care Provider [phone] Reason for Visit * Reason Comments Medication Refill Encounter Details Date Type Department Care Team ([facility] st Contact Info) Description 01/09/2017 Refill Internal Medicine at [facility] [address] [place] [address] [place] [address] Essential hypertension Social History Tobacco Use Types [...] [facility] - Now [facility] [place] * Telephone Encounter - Aisha Powers MA - 01/11/2017 12:14 PM EDT Called Pt and left VM. Call is in regards to lisinopril Rx. Need to verify if she wants the [facility] pharmacy, or mail order. And if mail order, which one? Thank you, Mary Powers MA My ext is [phone] documented in this encounter Plan of Treatment Not on file documented as of this encounter Visit Diagnoses Diagnosis Essential hypertension Unspecified essential hypertension documented in this encounter Care Teams Telecommunication Engineer Relationship Specialty Start Date End Date Enoch Medina MD [facility] [address] [place] [address] PCP - General Family Medicine 08/22/20 06/03/21 documented as of this encounter
--- OUTSIDE RECORDS SUMMARY | 2023-11-10 01:10 | XMS_ITS | Encounter Summary ---
Author Organization [facility] [place] [address] Care Team Providers Care Product Safety Lead Name Role Phone Enoch Medina MD Primary Care Provider [phone] Reason for Visit * Reason Comments Medication Refill Encounter Details Date Type Department Care Team ([facility] st Contact Info) Description 12/22/2016 Refill Internal Medicine at [facility] [address] [place] [address] Pita Narayanan MD [facility] [place] [address] Essential hypertension Social History Tobacco Use Types [...] hypertension documented in this encounter Care Teams Product Safety Lead Relationship Specialty Start Date End Date Enoch Medina MD [facility] [place] [address] PCP - General Family Medicine 08/22/20 06/03/21 documented as of this encounter
--- OUTSIDE RECORDS SUMMARY | 2023-11-10 01:10 | XMS_ITS | Encounter Summary ---
Author Organization [facility] [place] [address] Care Team Providers Care Motorcycle Service Technician Name Role Phone Pita Narayanan MD Primary Care Provider [phone] Reason for Visit * Reason Onset Date Comments Other 02/04/2017 med reconcilliat ion Encounter Details Date Type Department Care Team (Late st Contact Info) Description 02/04/2017 Telephone Internal Medicine at [facility] [address] [place] [address] Yoly Palacios RN Other (med reconcilliation) Social [...] on filedocumented in this encounter Care Teams Motorcycle Service Technician Relationship Specialty Start Date End Date Pita Narayanan MD [facility] [address] [place] [address] PCP - General General Internal Medicine 01/28/1604/22 documented as of this encounter
--- OUTSIDE RECORDS SUMMARY | 2023-11-10 01:10 | XMS_ITS | Encounter Summary ---
Author Organization [facility] [place] [address] Care Team Providers Care Hide Washer Name Role Phone Pita Narayanan MD Primary Care Provider [phone] Encounter Details Date Type Department Care Team (Late st Contact Info) Description 06/30/2016 Telephone Internal Medicine at [facility] [address] [place] [address] Pita Narayanan MD [facility] [place] [address] Social History Tobacco Use Types Packs/Day Years [...] on filedocumented in this encounter Care Teams Hide Washer Relationship Specialty Start Date End Date Pita Narayanan MD [facility] DR [address] [facility] [place] [address] PCP - General General Internal Medicine 01/28/1604/22 documented as of this encounter
--- OUTSIDE RECORDS SUMMARY | 2023-11-10 01:10 | XMS_ITS | Encounter Summary ---
Author Organization [facility] Address [facility] [place] [address] Care Team Providers Care Pc Analyst Name Role Phone Carlos Alberto Ag MD Primary Care Provider Reason for Visit * Physical Therapy (Routine) - Closed Specialty Diagnoses / Procedures Referred By Contac t Referred To Contact Physical Therapy Diagnoses Chronic right hip pain Carlos Alberto Ag MD [facility] [place] [address] [address] [place] [address] Referral ID Status Reason Start Date Expiration Date V isits Requested Visits Authorized [id number] Closed Evaluate and Treat 05/13/2017 05/13/2018 1 1 Encounter Details Date Type Department Care Team (Late st Contact Info) Description 06/03/2017 8:00 AM EST Office Visit Physical Therapy at [facility] [address] [place] [address] Navid Enamorado, PT [facility] [place] [address] Chronic right hip pain Social History Tobacco [...] symptoms. 2. Improved awareness of compensation Therapy Advanced Nursing Professor Goals ( 6wks) Patient will... 1. increase [...] thigh documented in this encounter Care Teams Pc Analyst Relationship Specialty Start Date End Date Carlos Alberto Ag MD [facility] [place] [address] PCP - General General Internal Medicine 04/26/17 10/31/19 documented as of this encounter
--- OUTSIDE RECORDS SUMMARY | 2023-11-10 01:10 | XMS_ITS | Encounter Summary ---
Author Organization [facility] Address [facility] [place] [address] Care Team Providers Care Adult Remedial Education Instructor Name Role Phone Carlos Alberto Ag MD Primary Care Provider Reason for Visit * Reason Comments Medication Refill Encounter Details Date Type Department Care Team (Late st Contact Info) Description 05/06/2018 Refill Internal Medicine at [facility] [address] [place] [address] Carlos Alberto Ag MD [facility] [address] [place] [address] Depression, unspecified depression type; Anxiety Social History [...] unspecified documented in this encounter Care Teams Adult Remedial Education Instructor Relationship Specialty Start Date End Date Carlos Alberto Ag MD [facility] [place] [address] PCP - General General Internal Medicine 04/26/17 10/31/19 documented as of this encounter
--- OUTSIDE RECORDS SUMMARY | 2023-11-10 01:10 | XMS_ITS | Encounter Summary ---
Author Organization [facility] [place] [address] Care Team Providers Care Sample Selector Name Role Phone Carlos Alberto Ag MD Primary Care Provider Reason for Visit * Reason Comments Medication Refill Encounter Details Date Type Department Care Team (Late st Contact Info) Description 01/14/2018 [place] [address] Carlos Alberto Ag MD [facility] GENER[facility] [place] [address] Uncontrolled type 2 diabetes mellitus without complication, [...] documented in this encounter Care Teams Sample Selector Relationship Specialty Start Date End Date Carlos Alberto Ag MD [facility] [place] [address] PCP - General General Internal Medicine 04/26/17 10/31/19 documented as of this encounter
--- OUTSIDE RECORDS SUMMARY | 2023-11-10 01:10 | XMS_ITS | Encounter Summary ---
Author Organization [facility] Address [facility] [place] [address] Care Team Providers Care Supervisor Building Maintenance Name Role Phone Pita Narayanan MD Primary Care Provider [phone] Encounter Details Date Type Department Care Team (Latest Contact Info) Description 05/11/2016 10:15 AM EST Laboratory Appointment Lab at [facility] [address] [place] [address] Type 2 diabetes mellitus without complication, unspecified penitentiary insulin use status; Essential hypertension Social History [...] Type 2 diabetes mellitus without complication, unspecified termination clerk insulin use status Essential hypertension documented in this encounter Results * (ABNORMAL) BMP w/fasting Glucose (05/11/2016 10:28 AM EST) Glucose Fasting 175(H) 65 - 99 mg/dL [facility] Comment: ?Fasting* Glucose Interpretive Criteria [...] of Diabetes Mellitus, Position Statement from the [place] [employer]. ??Diabetes Care, Volume 33, Supplement 1, Apr 2009 BUN 15 8 - 18 mg/dL [facility] Creatinine 0.72 0.70 - 1.20 mg/dL [facility] Comment: Please note that the pediatric reference intervals supplied above were not validated at [facility]. Results from pediatric patients should be interpreted in conjunction to the patient's age, height and muscle mass. Sodium 142 135 - 145 mmol/L [facility] Potassium 4.3 3.5 - 5.0 mmol/L [facility] Comment: Please note: ??Patients with WBC >100,000 may have falsely elevated Potassium levels. ??For accurate Potassium quantification in these patients send serum separator tube (gold top) for subsequent determinations. ??Contact the Clinical Chemistry Laboratory if there are any questions. Chloride 102 98 - 107 mmol/L [facility] CO2 28 22 - 31 mmol/L [facility] Anion Gap 12 5 - 15 mmol/L [facility] Calcium 9.4 8.5 - 10.5 mg/dL [facility] Estimated GFR >60 >=60 [facility] Comment: This estimated GFR [...] the following links into your internet browser. [email or web address] Blood specimen (specimen) 05/11/2016 10:28 AM EST 05/11/2016 1:46 PM EST Narrative Resulting Agency Comment Spec In Lab Pita Narayanan MD CHEMISTRY ORDERABLES Performing Organization Address City/State/[facility] Co de Phone Number [facility] [place] [address] documented in this encounter Visit Diagnoses Diagnosis Type 2 diabetes mellitus without complication, unspecified termination clerk insulin use status Essential hypertension Unspecified essential hypertension documented in this encounter Care Teams Supervisor Building Maintenance Relationship Specialty Start Date End Date Pita Narayanan MD [facility] [address] [facility] [place] [address] PCP - General General Internal Medicine 01/28/1604/22 documented as of this encounter
--- OUTSIDE RECORDS SUMMARY | 2023-11-10 01:10 | XMS_ITS | Encounter Summary ---
Author Organization [facility] Address [facility] [place] [address] Care Team Providers Care Musculoskeletal Physiotherapist Name Role Phone Carlos Alberto Ag MD Primary Care Provider Reason for Referral * Consultation (Routine) - Closed Specialty Diagnoses / Procedures Referred By Contac t Referred To Contact Sleep Center Diagnoses Obstructive sleep apnea Carlos Alberto Ag MD [facility] [place] [address] [facility] Sleep Medicine [address] [place] [address] Referral ID Status Reason Start Date Expiration Date V isits Requested Visits Authorized [id number] Closed Specialty Service Requested 05/13/2017 05/13/2018 1 1 * Physical Therapy (Routine) - Closed Specialty Diagnoses / Procedures Referred By Contac t Referred To Contact Physical Therapy Diagnoses Chronic right hip pain Carlos Alberto Ag MD [facility] [address] [place] [address] [facility] Rehab [address] [place] [address] Referral ID Status Reason Start Date Expiration Date V isits Requested Visits Authorized [id number] Closed Evaluate and Treat 05/13/2017 05/13/2018 1 1 Reason for Visit * Reason Comments Establish Care Encounter Details Date Type Department Care Team (Late st Contact Info) Description 05/13/2017 3:30 PM EST Office Visit Internal Medicine at [facility] [place] [address] Carlos Alberto Ag MD [facility] [place] [address] Type 2 diabetes mellitus without complication, without [...] foods, chocolate or tobacco. Patient lives in [place], [place] with her 2 daughters. Her mother stays overnight when the patient is working. She works at [employer] in [place], [place]. 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 ??Diabetes Care 2008:31(8):5784-7641. Blood specimen (specimen) 06/03/2017 9:44 AM EST 06/03/2017 9:51 AM EST Narrative Resulting Agency Comment Spec In Lab Jacqueline Cleveland MD CHEMISTRY ORDERABLES Performing Organization Address City/State/[facility] Co de Phone Number [facility] [place] [address] * (ABNORMAL) Basic Metabolic Panel (non-fasting) (06/03/2017 9:44 AM EST) Glucose Lvl 177 65 - 199 mg/dL [facility] Comment:Diabetes: >=200 mg/d L plus symptoms BUN 16 8 - 18 mg/dL [facility] Creatinine 0.68(L) 0.70 - 1.20 mg/dL [facility] Sodium 140 135 - 145 mmol/L [facility] Potassium 4.0 3.5 - 5.0 mmol/L [facility] Comment: Please note: ??Patients with WBC >100,000 may have falsely elevated Potassium levels. ??For accurate Potassium quantification in these patients send serum separator tube (gold top) for subsequent determinations. ??Contact the Clinical Chemistry Laboratory if there are any questions. Chloride 99 98 - 107 mmol/L [facility] CO2 27 22 - 31 mmol/L [facility] Anion Gap 14 5 - 15 mmol/L [facility] Calcium 9.0 8.5 - 10.5 mg/dL [facility] Estimated GFR >60 >=60 [facility] Comment: The reported eGFR should be multiplied by 1.2 for patients. The MDRD is not an appropriate measure of renal function for patients with body mass extremes or in patients with acute kidney failure. http://[employer]/DHnkdep http://[employer]/DHMCnkf Blood specimen (specimen) 06/03/2017 9:44 AM EST 06/03/2017 9:51 AM EST Narrative Resulting Agency Comment Spec In Lab Jacqueline Cleveland MD CHEMISTRY ORDERABLES [facility] [place] [id number] * U Albumin/Cre Ratio (06/03/2017 9:41 AM EST) Alb/Cr Ratio, Random Not Calculated 0 - 29 mcg/mg Cr [facility] Comment: Reference Ranges: <30 [...] 362 U Albumin Conc, Random <3.0 mg/L [facility] U Creatinine 120 mg/dL [facility] Urine specimen (specimen) 06/03/2017 9:41 AM EST 06/03/2017 9:51 AM EST Narrative Resulting Agency Comment Spec In Lab Jacqueline Cleveland MD URINE ORDERABLES [facility] [place] [address] documented in this encounter Visit Diagnoses Diagnosis Type 2 diabetes mellitus without complication, without long-term current use of insulin- Primary Hypertension, unspecified type Chronic right hip pain Pain in joint, pelvic region and thigh Obstructive sleep apnea Obstructive sleep apnea (adult) (pediatric) Gastroesophageal reflux disease, esophagitis presence not specified Depression, unspecified depression type documented in this encounter Care Teams Musculoskeletal Physiotherapist Relationship Specialty Start Date End Date Carlos Alberto Ag MD [facility] [place] [address] PCP - General General Internal Medicine 04/26/17 10/31/19 documented as of this encounter
--- OUTSIDE RECORDS SUMMARY | 2023-11-10 01:10 | XMS_ITS | Encounter Summary ---
Author Organization [facility] [place] [address] Care Team Providers Care Consulting Group Analyst Name Role Phone Carlos Alberto Ag MD Primary Care Provider Reason for Visit * Reason Comments Medication Refill Encounter Details Date Type Department Care Team (Late st Contact Info) Description 02/20/2019 [place] [address] Carlos Alberto Ag MD [facility] [place] [address] Gastroesophageal reflux disease, esophagitis presence not specified [...] specified documented in this encounter Care Teams Consulting Group Analyst Relationship Specialty Start Date End Date Carlos Alberto Ag MD [facility] [place] [address] PCP - General General Internal Medicine 04/26/17 10/31/19 documented as of this encounter
--- OUTSIDE RECORDS SUMMARY | 2023-11-10 01:10 | XMS_ITS | Encounter Summary ---
Author Organization [facility] Address [facility] [place] [address] Care Team Providers Care Tree Cutter Name Role Phone Carlos Alberto Ag MD Primary Care Provider Reason for Visit * Reason Onset Date Comments Medication Refill 06/24/2017 Depo-subq Prov era 104 syringe Encounter Details Date Type Department Care Team (Late st Contact Info) Description 06/24/2017 Refill Internal Medicine at [facility] [address] [place] [address] Jenelle Lloyd, MONOTYPE SETTER Menstrual disorder Social History Tobacco Use Types [...] tract documented in this encounter Care Teams Tree Cutter Relationship Specialty Start Date End Date Carlos Alberto Ag MD [facility] [place] [address] PCP - General General Internal Medicine 04/26/17 10/31/19 documented as of this encounter
--- OUTSIDE RECORDS SUMMARY | 2023-11-10 01:10 | XMS_ITS | Encounter Summary ---
Author Organization [facility] [place] [address] Care Team Providers Care Leather Scrubber Name Role Phone Pita Narayanan MD Primary Care Provider [phone] Encounter Details Date Type Department Care Team (Late st Contact Info) Description 09/21/2016 Telephone Internal Medicine at [facility] [address] [place] [address] Faye Jackson RN Social History [...] nurse, no answer. Can be reached at [phone] until 6:30 this evening * Telephone Encounter - Faye Jackson RN - 09/21/2016 8:37 AM EDT Attempted [...] on filedocumented in this encounter Care Teams Leather Scrubber Relationship Specialty Start Date End Date Pita Narayanan MD [facility] [address] [facility] [place] [address] PCP - General General Internal Medicine 01/28/1604/22 documented as of this encounter
--- OUTSIDE RECORDS SUMMARY | 2023-11-10 01:10 | XMS_ITS | Encounter Summary ---
Author Organization [facility] Address [facility] [place] [address] Care Team Providers Care Risk Assessment Analyst Name Role Phone Pita Narayanan MD Primary Care Provider [phone] Encounter Details Date Type Department Care Team (Late st Contact Info) Description 08/14/2016 Telephone Internal Medicine at [facility] [address] [place] [address] Pita Narayanan MD [facility] [place] [address] Social History Tobacco Use Types Packs/Day Years [...] on filedocumented in this encounter Care Teams Risk Assessment Analyst Relationship Specialty Start Date End Date Pita Narayanan MD [facility] [address] [place] [address] PCP - General General Internal Medicine 01/28/1604/22 documented as of this encounter
--- OUTSIDE RECORDS SUMMARY | 2023-11-10 01:10 | XMS_ITS | Encounter Summary ---
Author Organization [facility] [place] [place] [address] Care Team Providers Care Machinist Job Setter Name Role Phone Pita Narayanan MD Primary Care Provider Reason for Visit * Reason Comments Follow-up * Consultation (Urgent) - Specialty Diagnoses / Procedures Referred By Contmak t Referred To Contact Primary Care Diagnoses Severe episode of recurrent major depressive disorder, without psychotic features Pita Narayanan MD [facility] [address] [place] [address] [facility] [address] [place] [address] Referral ID Status Reason Start Date Expiration Date Visits Requested Visits Authorized [id number] Specialty Service Requested 04/29/2016 04/29/2017 1 1 Encounter Details Date Type Department Care Team ([facility] st Contact Info) Description 05/11/2016 9:00 AM EST Office Visit Internal Medicine at [facility] [address] [place] [address] Karsten Morris MD [facility] [place] [address] Severe episode of recurrent major [...] is ok) Give chance with therapist at [facility] 3 - 5 visits. Follow-up with Dr. Gama 05/19/16 Strong does not mean doing it alone. documented in this encounter Progress Notes * Karsten Morris MD - 05/11/2016 9:00 AM EST REFERRAL SOURCE: Dr. Pita Narayanan. REASON FOR REFERRAL: Recent intensifying suicidal ideation and increasing PHQ-9 reflective of moderate to severe depression. LOCATION OF APPOINTMENT: [facility]. DURATION OF APPOINTMENT: 60 minutes. ADDITIONAL [...] use disorder. She currently is employed at [employer], resides with her 2 children in [place], [place], and is insured through [employer] CHIEF COMPLAINT: I've had depression since high school, but this is the first time I've felt suicidal and not wanting to be around my kids, which really scared me. HISTORY OF PRESENT ILLNESS: Sarah recently reestablished care with Dr. Narayanan at the [facility]. She had previously been seeing a primary care physician in [place], but was finding that her mental health [...] environment. 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 SOCIAL HISTORY: Born in [place], raised in [place], youngest of 3 children from her mother [...] good relationship. He has just moved to [place], is getting re-involved with the children which is overall positive but somewhat stressful on the family system. Her second marriage was for 3 years. This partner struggled with substance use, is currently not in their lives. Her 2 children are Barbara, age 10, and Torrie, age 4, whom she is very dedicated to. 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 She has been with them for 3 years. The shifting schedule is stressful. She works 6 p.m. to 6 a.m. on , Wednesday, Wednesday and every other weekend. This makes sleep fragmented and difficult, is often combined with caring for her children. 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 documented in this encounter Plan of Treatment Not on file documented as of this encounter Visit Diagnoses Diagnosis Severe episode of recurrent major depressive disorder, without psychotic features documented in this encounter Care Teams Machinist Job Setter Relationship Specialty Start Date End Date Pita Narayanan MD [facility] [address] PCP - General General Internal Medicine 01/28/1604/22 documented as of this encounter
--- OUTSIDE RECORDS SUMMARY | 2023-11-10 01:10 | XMS_ITS | Encounter Summary ---
Author Organization [facility] [place] [address] Care Team Providers Care Restorer Lace And Textiles Name Role Phone Carlo sAlberto Ag MD Primary Care Provider Encounter Details Date Type Department Care Team (Late st Contact Info) Description 08/09/2018 Orders Only Internal Medicine at [facility] [place] [address] Carlos Alberto Ag MD [facility] [address] [place] [address] Social History Tobacco Use Types Packs/Day Years [...] on filedocumented in this encounter Care Teams Restorer Lace And Textiles Relationship Specialty Start Date End Date Carlos Alberto Ag MD [facility] [place] [address] PCP - General General Internal Medicine 04/26/17 10/31/19 documented as of this encounter
--- OUTSIDE RECORDS SUMMARY | 2023-11-10 01:10 | XMS_ITS | Encounter Summary ---
Author Organization [facility] [place] [address] Care Team Providers Care Vp Global Marketing Solutions Name Role Phone Carlos Alberto Ag MD Primary Care Provider Reason for Visit * Reason Comments Medication Refill Encounter Details Date Type Department Care Team (Late st Contact Info) Description 01/29/2019 Refill [place] [address] Carlos Alberto Ag MD [facility] [place] [address] Uncontrolled type 2 diabetes mellitus without complication, [...] insulin documented in this encounter Care Teams Vp Global Marketing Solutions Relationship Specialty Start Date End Date Carlos Alberto Ag MD [facility] [place] [address] PCP - General General Internal Medicine 04/26/17 10/31/19 documented as of this encounter
--- OUTSIDE RECORDS SUMMARY | 2023-11-10 01:10 | XMS_ITS | Encounter Summary ---
Author Organization [facility] [place] [address] Care Team Providers Care Yard Rigger Name Role Phone Carlos Alberto Ag MD Primary Care Provider Reason for Visit * Reason Comments Follow-up Encounter Details Date Type Department Care Team ([facility] st Contact Info) Description 08/19/2017 2:00 PM EDT Office Visit [place] [address] Malgorzata Pappas APRN [facility] [place] [address] Type 2 diabetes mellitus without complication, without [...] Patient Instructions * Patient Instructions* Malgorzata Pappas, BRIDGE LEVERMAN - 08/19/2017 2:37 PM EDT Images from the original note were not included. Epidermoid Cyst: Care Instructions Your Care Instructions An epidermoid (say hl-znx-EFL-cornellyd) cyst is a lump just under the [...] more? Visit our health information library at [email or web address]. You can also view health information on [employer], your personal patient account. Log in or sign uptoday. Enter S615 in the search box to learn more about Epidermoid Cyst: Care Instructions. Current as of: January 30, 2016 Content Version: 11.4 ?? [id number] [employer]. Care instructions adapted under license by [facility]. If you have questions about a medical condition or this instruction, always ask your healthcare professional. [employer] disclaims any warranty or liability for your [...] more? Visit our health information library at [email or web address]. You can also view health information on [employer], your personal patient account. Log in or sign uptoday. Enter S615 in the search box to learn more about Epidermoid Cyst: Care Instructions. Current as of: January 30, 2016 Content Version: 11.4 ?? [id number] [employer]. Care instructions adapted under license by [facility]. If you have questions about a medical condition or this instruction, always ask your healthcare professional. 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 Works at [employer] on the [employer] line. Small lesion on mid back for [...] Hemoglobin A1C 6.9(H) 4.3 - 5.6 % [facility] Comment: Reference Range: 4.3 - [...] 1, S67-74 Est Avg Gluc 151 mg/dL [facility] Comment: eAG equivalents for [...] into estimated average glucose values. ??Diabetes Care 2008:31(8):4841-2343. Blood specimen (specimen) 08/19/2017 3:27 PM EDT 08/19/2017 3:34 PM EDT Narrative Resulting Agency Comment Spec In Lab Malgorzata Pappas APRN CHEMISTRY ORDERABLES [facility] [place] [address] * (ABNORMAL) Basic Metabolic Panel (non-fasting) (08/19/2017 3:27 PM EDT) Glucose Lvl 234(H) 65 - 199 mg/dL [facility] Comment:Diabetes: >=200 mg/d L plus symptoms BUN 14 8 - 18 mg/dL [facility] Creatinine 0.70 0.70 - 1.20 mg/dL [facility] Sodium 138 135 - 145 mmol/L [facility] Potassium 3.9 3.5 - 5.0 mmol/L [facility] Comment: Please note: ??Patients with WBC >100,000 may have falsely elevated Potassium levels. ??For accurate Potassium quantification in these patients send serum separator tube (gold top) for subsequent determinations. ??Contact the Clinical Chemistry Laboratory if there are any questions. Chloride 98 98 - 107 mmol/L [facility] CO2 26 22 - 31 mmol/L [facility] Anion Gap 14 5 - 15 mmol/L [facility] Calcium 9.0 8.5 - 10.5 mg/dL [facility] Estimated GFR >60 >=60 [facility] Comment: The reported eGFR should be multiplied by 1.2 for patients. The MDRD is not an appropriate measure of renal function for patients with body mass extremes or in patients with acute kidney failure. http://[employer]THEVA/DHnkdep http://[employer]/DHnkf Blood specimen (specimen) 08/19/2017 3:27 PM EDT 08/19/2017 3:34 PM EDT Narrative Resulting Agency Comment Spec In Lab Malgorzata Pappas APRN CHEMISTRY ORDERABLES [facility] [place] [address] * XR Pelvis w AP & Lat [...] thigh documented in this encounter Care Teams Yard Rigger Relationship Specialty Start Date End Date Carlos Alberto Ag MD [facility]ICINE [place] [id number] PCP - General General Internal Medicine 04/26/17 10/31/19 documented as of this encounter
--- OUTSIDE RECORDS SUMMARY | 2023-11-10 01:10 | XMS_ITS | Encounter Summary ---
Author Organization [facility] [place] [address] Care Team Providers Care Desk Assistant Name Role Phone Pita Narayanan MD Primary Care Provider [phone] Encounter Details Date Type Department Care Team (Late st Contact Info) Description 08/21/2016 Telephone Family Medicine at [facility] [address] [place] [id number] Girish Mckay Jr., [place] [address] Social History Tobacco Use Types Packs/Day Years [...] on filedocumented in this encounter Care Teams Desk Assistant Relationship Specialty Start Date End Date Pita Narayanan MD [place], [place] [id number] PCP - General General Internal Medicine 01/28/1604/22 documented as of this encounter
--- OUTSIDE RECORDS SUMMARY | 2023-11-10 01:10 | XMS_ITS | Encounter Summary ---
Author Organization [facility] [place] [address] Care Team Providers Care Senior Solutions Consultant Name Role Phone Pita Narayanan MD Primary Care Provider [phone] Encounter Details Date Type Department Care Team (Latest Contact Info) Description 03/05/2017 8:10 AM EST Laboratory Appointment Lab at [place] [address] [place] [address] Dyslipidemia; Uncontrolled type 2 diabetes mellitus without [...] EST) HepB Surface Ab Quant <3.5 IU/L [facility] Comment: HepB Surface Ab Quant: Unvaccinated: < 8.5 IU/L Vaccinated: > 11.5 IU/L HepB Surface Ab Negative [facility] Comment: Patient is presumed to be not vaccinated or immune to HBV infection. Expected Results: Vaccinated: Positive Unvaccinated: Negative Blood specimen (specimen) 03/05/2017 8:17 AM EST 03/05/2017 9:56 AM EST Narrative Resulting Agency Comment Spec In Lab Pita Narayanan MD IMMUNOLOGY ORDERABLE S [facility] [place] [address] * (ABNORMAL) Lipid Panel (03/05/2017 8:17 AM EST) Chol, Total 166 <=239 mg/dL [facility] Triglycerides 309(H) <=199 mg/dL [facility] HDL 32(L) >=40 mg/dL [facility] LDL Cholesterol 72 <=190 mg/dL [facility] Chol/HDL Ratio 5.2 ratio [facility] Lipid Interpretation See Note [facility] Comment: Lipid management should be guided by a patient? s ASCVD risk, goals and preferences. ACC/AHA Guidelines recommend high intensity statin if clinical ASCVD or LDL greater than or equal to 190 mg/dL. http://[employer].com/KXL-QKH-Afcmryfjs Adults aged 40-75 with LDL 70-189 mg/dL should have their 10 year ASCVD risk estimated with the ACC/AHA ASCVD risk property manager http://tools.acc.org/UDHAP-Qhhg-Sihmnqpug/ Statin should be discussed if risk greater [...] In Lab Pita Narayanan MD CHEMISTRY ORDERABLES [facility] [place] [address] documented in this encounter Visit Diagnoses Diagnosis Dyslipidemia Other and unspecified hyperlipidemia Uncontrolled type 2 diabetes mellitus without complication, without long-term current use of insulin Healthcare maintenance Routine general medical examination at a health care facility documented in this encounter Care Teams Senior Solutions Consultant Relationship Specialty Start Date End Date Pita Narayanan MD [facility] [place] [address] PCP - General General Internal Medicine 01/28/1604/22 documented as of this encounter
--- OUTSIDE RECORDS SUMMARY | 2023-11-10 01:10 | XMS_ITS | Encounter Summary ---
Author Organization [facility] Address [facility] [place] [address] Care Team Providers Care Police Judge Name Role Phone Carlos Alberto Ag MD Primary Care Provider Reason for Visit * Reason Comments Medication Refill Encounter Details Date Type Department Care Team ([facility] st Contact Info) Description 04/30/2018 Refill Internal Medicine at [facility] [address] [place] [phone] Carlos Alberto Ag MD [facility] [place] [address] Menstrual disorder Social History Tobacco Use Types [...] Patients PCP is Carlos Alberto Ag MD, [facility]. * Telephone Encounter - Ale Moreau CMA [...] tract documented in this encounter Care Teams Police Judge Relationship Specialty Start Date End Date Carlos Alberto Ag MD [facility] [place] [address] PCP - General General Internal Medicine 04/26/17 10/31/19 documented as of this encounter
--- OUTSIDE RECORDS SUMMARY | 2023-11-10 01:10 | XMS_ITS | Encounter Summary ---
Author Organization [facility] Located [facility] [place] [address] Care Team Providers Care It Network Administrator Name Role Phone Carlos Alberto Ag MD Primary Care Provider Reason for Visit * Reason Comments Urinary Tract Infection Encounter Details Date Type Department Care Team ([facility] st Contact Info) Description 12/31/2017 1:40 PM EDT Office [place] [phone] Malgorzata Pappas APRN [facility] [place] [address] Urinary urgency; Dysuria Social History Tobacco Use [...] Patient Instructions * Patient Instructions* Malgorzata Pappas, COMP FIELD CASE MANAGER - 12/31/2017 2:17 PM EDT Images from [...] Where can you learn more? Visit our ZenDay information library at [email or web address]://[email or web address][employer] Inc/AMCS Groupo. You can also view health information on [email or web address], your personal patient account. Log in or sign uptoday. Enter H814 in the search box to learn more about Painful Urination (Dysuria): Care Instructions. Current as of: August 28, 2016 Content Version: 11.7 ?? [id number] [employer]. Care instructions adapted under license by [employer]. If you have questions about a medical condition or this instruction, always ask your healthcare professional. [employer] disclaims any warranty or liability for your use of this information. documented in this encounter Progress Notes * Malgorzata Pappas APRN - 12/31/2017 1:40 PM EDT Subjective: Patient ID: Sarah Monacda is a 37 y.o. female. HPI Sarah [...] tract infection, submit a new specimen. (A) [facility] Urine specimen obtained by clean catch procedure (specimen) 12/31/2017 2:20 PM EDT 12/31/2017 3:07 PM EDT Narrative Resulting Agency Comment Spec In Lab Malgorzata Pappas APRN MICROBIOLOGY - GENER AL ORDERABLES [facility] [place] [address] * (ABNORMAL) Urinalysis Microscopic Exam (12/31/2017 2:20 PM EDT) RBC UA 3 0 - 4 /HPF [facility] WBC UA 24(H) 0 - 5 /HPF [facility] Bacteria UA Occasional (A) None /HPF [facility] Squam Epith UA 24(H) <=4 /HPF [facility] Trans Epith UA <1 <=1 /HPF [facility] Renal Epith UA <1(H) <=0 /HPF [facility] Urine specimen obtained by clean catch procedure (specimen) 12/31/2017 2:20 PM EDT 12/31/2017 2:40 PM EDT Narrative Resulting Agency Comment Spec In Lab Malgorzata Pappas APRN URINE ORDERABLES Performing Organization Address [facility] Co de Phone Number [facility] [place] [address] * (ABNORMAL) Urinalysis with reflex Culture (12/31/2017 2:20 PM EDT) Glucose UA Negative Negative mg/dL [facility] Protein UA 100(A) Negative mg/dL [facility] Bilirubin UA Negative Negative mg/dL [facility] Comment: Clinical correlation required for positive Urine Bilirubin results as false positive may occur with some drugs and drug related products. If a false positive is suspected a serum total bilirubin should be considered if clinically indicated. Urobilinogen UA Normal Normal mg/dL [facility] pH UA 5.0 5.0 - 8.0 [facility] Blood UA Negative Negative mg/dL [facility] Ketones UA 5(A) Negative mg/dL [facility] Nitrite UA Negative Negative [facility] Leukocytes UA Large(A) Negative [facility] Appearance UA Cloudy(A) Clear [facility] Spec Blythe UA 1.028 1.002 - 1.030 [facility] Color UA Azeb Yellow [facility] Culture Reflexed Yes [facility] Urine specimen obtained by clean catch procedure (specimen) 12/31/2017 2:20 PM EDT 12/31/2017 2:40 PM EDT Narrative Resulting Agency Comment Spec In Lab Malgorzata Pappas APRN URINE ORDERABLES Performing Organization Address [facility]/State/ZIP Co de Phone Number [facility] [place] [address] documented in this encounter Visit Diagnoses Diagnosis Urinary urgency Urgency of urination Dysuria documented in this encounter Care Teams It Network Administrator Relationship Specialty Start Date End Date Carlos Alberto Ag MD [facility] [place] [address] PCP - General General Internal Medicine 04/26/17 10/31/19 documented as of this encounter
--- OUTSIDE RECORDS SUMMARY | 2023-11-10 01:10 | XMS_ITS | Encounter Summary ---
Author Organization [facility] Address [facility] [place] [address] Care Team Providers Care Vice Investigator Name Role Phone Carlos Alberto Ag MD Primary Care Provider Encounter Details Date Type Department Care Team (Late st Contact Info) Description 09/21/2017 Orders Only [place] [phone] Adan Markham MD [facility] [place] [address] Social History Tobacco Use Types Packs/Day Years [...] on filedocumented in this encounter Care Teams Vice Investigator Relationship Specialty Start Date End Date Carlos Alberto Ag MD [facility] [place] [address] PCP - General General Internal Medicine 04/26/17 10/31/19 documented as of this encounter
--- OUTSIDE RECORDS SUMMARY | 2023-11-10 01:10 | XMS_ITS | Encounter Summary ---
Author Organization [facility] [place] [address] Care Team Providers Care Cnc Mill Programmer Name Role Phone Carlos Alberto Ag MD Primary Care Provider Encounter Details Date Type Department Care Team (Late st Contact Info) Description 12/14/2018 Telephone [place] [phone] Sofia Fritz Social History Tobacco Use Types [...] on filedocumented in this encounter Care Teams Cnc Mill Programmer Relationship Specialty Start Date End Date Carlos Alberto Ag MD [facility] GENER[facility] [place] [address] PCP - General General Internal Medicine 04/26/17 10/31/19 documented as of this encounter
--- OUTSIDE RECORDS SUMMARY | 2023-11-10 01:10 | XMS_ITS | Encounter Summary ---
Author Organization [facility] [place] [address] Care Team Providers Care Polysomnography Technician Name Role Phone Pita Narayanan MD Primary Care Provider [phone] Encounter Details Date Type Department Care Team (Late st Contact Info) Description 05/14/2016 Abstract Internal Medicine at [facility] [address] [place] [phone] Padma Miller, [facility] Social History Tobacco Use Types Packs/Day [...] A1c (09/18/2015 10:06 AM EDT) Hemoglobin A1C 7.5(WATCH CRYSTAL CUTTER AL/ABN) EXTERNAL LAB Comment:external reference r brandon 5.0-5.6 Blood specimen (specimen) 09/18/2015 10:06 AM EDT Historical Provider CHEMISTRY ORDERAB LES EXTERNAL LAB * (ABNORMAL) Lipid External Results (09/18/2015) Chol, Total 154(Exter nal Lab) mg/dL EXTERNAL LAB HDL 27(WATCH CRYSTAL CUTTER AL/ABN) mg/dL EXTERNAL LAB Comment:external reference r brandon 40-60 LDL Cholesterol 58(WATCH CRYSTAL CUTTER AL/ABN) mg/dL EXTERNAL LAB Comment:external reference r brandon 60-100 Triglycerides 347(EXTER NAL/ABN) mg/dL EXTERNAL LAB Comment:external reference r brandon 35-150 09/18/2015 Historical Provider POINT OF CARE GONZALES T ORDERABLES Performing Organization Address [facility] Co de Phone Number EXTERNAL LAB * (ABNORMAL) CBC / CMP / Thyroid External Results (09/18/2015) Sodium 136(Milieu Counselor al Lab) 137 - 147 EXTERNAL LAB Potassium 4.0(Milieu Counselor al Lab) 3.4 - 5.3 EXTERNAL LAB Chloride 100(Milieu Counselor al Lab) 99 - 108 EXTERNAL LAB CO2 29(Externa l Lab) 22 - 29 EXTERNAL LAB BUN 15(Externa l Lab) EXTERNAL LAB Creatinine 0.63(Exter nal Lab) EXTERNAL LAB Glucose Lvl 178(WATCH CRYSTAL CUTTER AL/ABN) EXTERNAL LAB Comment:external reference r brandon 70-110 Calcium 8.3(WATCH CRYSTAL CUTTER AL/ABN) 8.7 - 10.7 EXTERNAL LAB Comment:external reference r brandon 8.6-10.5 Total Protein 6.7(Milieu Counselor al Lab) 6.4 - 8.2 EXTERNAL LAB Albumin 3.7(Milieu Counselor al Lab) EXTERNAL LAB Total Bilirubin 0.3(Milieu Counselor al Lab) EXTERNAL LAB Alk Phos 62(Externa l Lab) EXTERNAL LAB AST 12(Externa l Lab) 13 - 35 EXTERNAL LAB ALT 28(Externa l Lab) 7 - 35 EXTERNAL LAB 09/18/2015 Historical Provider POINT OF CARE GONZALES T ORDERABLES EXTERNAL LAB documented in this encounter Visit Diagnoses Not on filedocumented in this encounter Care Teams Polysomnography Technician Relationship Specialty Start Date End Date Pita Narayanan MD [facility] [address] [place] [address] PCP - General General Internal Medicine 01/28/1604/22 documented as of this encounter
--- OUTSIDE RECORDS SUMMARY | 2023-11-10 01:10 | XMS_ITS | Encounter Summary ---
Author Organization [facility] [place] [address] Care Team Providers Care Marketing Sales Manager Name Role Phone Carlos Alberto Ag MD Primary Care Provider Reason for Visit * Reason Comments Medication Refill Encounter Details Date Type Department Care Team ([facility] st Contact Info) Description 10/14/2017 3:00 PM EDT Office [place] [phone] Malgorzata Pappas APRN [facility] GENERAL [place] [address] Depression, unspecified depression type; Anxiety; Fatigue due [...] Patient Instructions * Patient Instructions* Malgorzata Pappas, CARPENTER PACKING - 10/14/2017 3:24 PM EDT Images from [...] movie or concert. Take part in a bahai activity or other social gathering. Go to [...] the numbers for these national suicide hotlines: 2-648-514-TALK ( ) and 5-825-BPXQTGB ( ). If you or someone you [...] Where can you learn more? Visit our Rifiniti information library at [email or web address] [email or web address]. You can also view health information on Virdia, your personal patient account. Log in or sign uptoday. Enter N529 in the search box to learn more about Recovering From Depression: Care Instructions. Current as of: March 25, 2017 Content Version: 11.7 ?? [id number] [employer]. Care instructions adapted under license by [facility]. If you have questions about a medical condition or this instruction, always ask your healthcare professional. [employer] disclaims any warranty or liability for your [...] 3:46 PM EDT) Neutrophils % 46.2 % [facility] Neutr Abs (ANC) 3.98 1.70 - 6.10 x10(3)/ L [facility] Lymphocytes % 44.4 % [facility] Lymphocytes Abs 3.8(H) 0.9 - 3.2 x10(3)/ L [facility] Monocytes % 5.7 % [facility] Monocyte Abs 0.5 0.3 - 0.9 x10(3)/[facility] Eosinophils % 2.9 % [facility] Eosinophils Abs 0.2 0.0 - 0.4 x10(3)/ L [facility] Basophils % 0.5 % [facility] Basophils Abs 0.0 0.0 - 0.1 x10(3)/ L [facility] Immature Gran % 0.30 % [facility] Comment: Immature granulocytes(IG's)percentage and absolute count will include metamyelocytes, myelocytes, and promyelocytes. Blood smears from CBCs yielding IG's will be scanned manually for concordance. If this scan disagrees with the automated IG or if promyelocytes are noted, a manual differential will be performed. Rebecca Gran Abs 0.03 0.00 - 0.04 x10(3)/ L [facility] Blood specimen (specimen) 10/14/2017 3:46 PM EDT 10/14/2017 3:52 PM EDT Narrative Resulting Agency Comment Spec In Lab Malgorzata Pappas CARPENTER PACKING HEMATOLOGY ORDERABLE S [facility] [place] [place] [address] * (ABNORMAL) Hemogram (10/14/2017 3:46 PM EDT) WBC 8.6 4.0 - 9.5 x10(3)/[facility] RBC 4.34 4.00 - 5.21 x10(6)/[facility] Hemoglobin 13.6 11.7 - 15.5 gm/dL [facility] Hematocrit 38.4 35.7 - 45.8 % [facility] MCV 88.5 82.6 - 94.4 [facility] MCH 31.3 27.1 - 32.0 pg [facility] MCHC 35.4(H) 31.7 - 35.0 gm/dL [facility] Platelets 236 145 - 357 x10(3)/[facility] RDWSD 38.6 37.0 - 46.0 [facility] RDWCV 11.9 11.5 - 14.1 % [facility] MPV 9.1 7.6 - 12.9 [facility] nRBC % Auto 0.0 % [facility] nRBC Abs Auto 0.000 0.000 - 0.000 x10(3)/[facility] Blood specimen (specimen) 10/14/2017 3:46 PM EDT 10/14/2017 3:52 PM EDT Narrative Resulting Agency Comment Spec In Lab Malgorzata Pappas CARPENTER PACKING HEMATOLOGY ORDERABLE S [facility] [place] [address] * TSH (10/14/2017 3:46 PM EDT) Pathologist [facility] TSH 3.28 0.27 - 4.20 mlU/ML [facility] Blood specimen (specimen) 10/14/2017 3:46 PM EDT 10/14/2017 3:52 PM EDT Narrative Resulting Agency Comment Spec In Lab Malgorzata Clementwitt CARPENTER PACKING CHEMISTRY ORDERABLES [facility] [place] [address] * (ABNORMAL) Basic Metabolic Panel (non-fasting) (10/14/2017 3:46 PM EDT) [facility] Glucose Lvl 243(H) 65 - 199 mg/dL [facility] Comment:Diabetes: >=200 mg/d L plus symptoms BUN 16 8 - 18 mg/dL [facility] Creatinine 0.63(L) 0.70 - 1.20 mg/dL [facility] Sodium 139 135 - 145 mmol/L [facility] Potassium 4.0 3.5 - 5.0 mmol/L [facility] Comment: Please note: ??Patients with WBC >100,000 may have falsely elevated Potassium levels. ??For accurate Potassium quantification in these patients send serum separator tube (gold top) for subsequent determinations. ??Contact the Clinical Chemistry Laboratory if there are any questions. Chloride 99 98 - 107 mmol/L [facility] CO2 25 22 - 31 mmol/L [facility] Anion Gap 15 5 - 15 mmol/L [facility] Calcium 9.2 8.5 - 10.5 mg/dL [facility] Estimated GFR 113 >=60 mL/min/1. 73 m?? [facility] Comment: The eGFR was calculated using the CKD-EPI equation. As with all creatinine based estimates of kidney function, eGFR values calculated with the CKD-EPI equation are not accurate in patients with acute kidney failure, extremes of body mass or the acutely ill. http://CoolClouds/DHnkdep http://CoolClouds/DHMCnkf eGFR 131 >=60 mL/min/1. 73 m?? [facility] Comment: The eGFR was calculated using the CKD-EPI equation. As with all creatinine based estimates of kidney function, eGFR values calculated with the CKD-EPI equation are not accurate in patients with acute kidney failure, extremes of body mass or the acutely ill. http://CoolClouds/Neighborhoodsnkdep http://CoolClouds/DHMCnkf Blood specimen (specimen) 10/14/2017 3:46 PM EDT 10/14/2017 3:52 PM EDT Narrative Resulting Agency Comment Spec In Lab Malgorzata Pappas APRN CHEMISTRY ORDERABLES Performing Organization Address City/State/[facility] Co de Phone Number [facility] [place] [address] documented in this encounter Visit Diagnoses Diagnosis Depression, unspecified depression type Anxiety Anxiety state, unspecified Fatigue due to depression documented in this encounter Care Teams Marketing Sales Manager Relationship Specialty Start Date End Date Carlos Alberto Ag MD [facility] GENERAL [place] [address] PCP - General General Internal Medicine 04/26/17 10/31/19 documented as of this encounter
--- OUTSIDE RECORDS SUMMARY | 2023-11-10 01:10 | XMS_ITS | Encounter Summary ---
Author Organization [facility] [place] [address] Care Team Providers Care Leather Polisher Name Role Phone Pita Narayanan MD Primary Care Provider [phone] Reason for Visit * Reason Onset Date Comments Medication Problem 01/12/2017 depo-provara Encounter Details Date Type Department Care Team (Late st Contact Info) Description 01/12/2017 Refill [address] [facility] [address] [facility] [address] [place] [address] Edel Rubi Social History Tobacco Use Types [...] 3:17 PM EDT Spoke with Keira at [facility]. She did actually receive the 104mg Depo [...] - 01/13/2017 8:09 AM EDT Spoke with [facility] pharmacist. Patient's current prescription for Depo-Provara is [...] Edel Putnam - 01/12/2017 3:16 PM EDT [facility] Percy [place] called to say that the depo-prevara is on back on order is there something else we want to prescribe? Pt is due in 4 days documented in this encounter Plan of Treatment Not on file documented as of this encounter Visit Diagnoses Not on filedocumented in this encounter Care Teams Leather Polisher Relationship Specialty Start Date End Date Pita Narayanan MD [facility] [address] [facility] [place] [address] PCP - General General Internal Medicine 01/28/1604/22 documented as of this encounter
--- OUTSIDE RECORDS SUMMARY | 2023-11-10 01:10 | XMS_ITS | Encounter Summary ---
Author Organization [facility] [place] [address] Care Team Providers Care Laborer Starch Factory Name Role Phone Carlos Alberto Ag MD Primary Care Provider Encounter Details Date Type Department Care Team (Late st Contact Info) Description 06/23/2018 Telephone [place] [phone] Rosemary Bass Social History Tobacco Use Types [...] on filedocumented in this encounter Care Teams Laborer Starch Factory Relationship Specialty Start Date End Date Carlos Alberto Ag MD [facility] [place] [address] PCP - General General Internal Medicine 04/26/17 10/31/19 documented as of this encounter
--- OUTSIDE RECORDS SUMMARY | 2023-11-10 01:10 | XMS_ITS | Encounter Summary ---
Author Organization [facility] [place] [address] Care Team Providers Care Emergency Planner Name Role Phone Carlos Alberto Ag MD Primary Care Provider Encounter Details Date Type Department Care Team (Latest Contact Info) Description 06/03/2017 9:25 AM EST Laboratory Appointment Lab 3L [facility] [place] [phone] Hypertension, unspecified type; Type 2 diabetes mellitus [...] Hemoglobin A1C 7.2(H) 4.3 - 5.6 % [facility] [...] 1, [id number] Est Avg Gluc 160 mg/dL [facility] Comment: eAG equivalents for HbA1c [...] into estimated average glucose values. ??Diabetes Care 2008:31(8):7314-0118. Blood specimen (specimen) 06/03/2017 9:44 AM EST 06/03/2017 9:51 AM EST Narrative Resulting Agency Comment Spec In Lab Jacqueline Cleveland MD CHEMISTRY ORDERABLES Performing Organization Address City/[facility]/ZIP Co de Phone Number [facility] [place] [address] * (ABNORMAL) Basic Metabolic Panel (non-fasting) (06/03/2017 9:44 AM EST) Glucose Lvl 177 65 - 199 mg/dL [facility] Comment:Diabetes: >=200 mg/d L plus symptoms BUN 16 8 - 18 mg/dL [facility] Creatinine 0.68(L) 0.70 - 1.20 mg/dL [facility] Sodium 140 135 - 145 mmol/L [facility] [...] - 107 mmol/L [facility] CO2 27 22 - 31 mmol/L [facility] Anion Gap 14 5 - 15 mmol/L [facility] Calcium 9.0 8.5 - 10.5 mg/dL [facility] Estimated GFR >60 >=60 [facility] Comment: The reported eGFR should be multiplied by 1.2 for patients. The MDRD is not an appropriate measure of renal function for patients with body mass extremes or in patients with acute kidney failure. http://Reach Clothing.IQ Elite/DHnkdep http://Reach Clothing.IQ Elite/DHMCnkf Blood specimen (specimen) 06/03/2017 9:44 AM EST 06/03/2017 9:51 AM EST Narrative Resulting Agency Comment Spec In Lab Jacqueline Cleveland MD CHEMISTRY ORDERABLES Performing Organization Address City/[facility]/ZIP Co de Phone Number [facility] [place] [address] * U Albumin/Cre Ratio (06/03/2017 9:41 AM EST) Alb/Cr Ratio, Random Not Calculated 0 - 29 mcg/mg Cr [facility] Comment: Reference Ranges: <30 mcg/mg: [...] 362 U Albumin Conc, Random <3.0 mg/L [facility] U Creatinine 120 mg/dL [facility] Urine specimen (specimen) 06/03/2017 9:41 AM EST 06/03/2017 9:51 AM EST Narrative Resulting Agency Comment Spec In Lab Jacqueline Cleveland MD URINE ORDERABLES [facility] [place] [address] documented in this encounter Visit Diagnoses Diagnosis Hypertension, unspecified type Type 2 diabetes mellitus without complication, without long-term current use of insulin documented in this encounter Care Teams Emergency Planner Relationship Specialty Start Date End Date Carlos Alberto Ag MD [facility] [place] [address] PCP - General General Internal Medicine 04/26/17 10/31/19 documented as of this encounter
--- OUTSIDE RECORDS SUMMARY | 2023-11-10 01:10 | XMS_ITS | Encounter Summary ---
Author Organization [facility] Address [facility] [place] [address] Care Team Providers Care Branch Specialist Name Role Phone Carlos Alberto Ag MD Primary Care Provider Encounter Details Date Type Department Care Team (Latest Contact Info) Description 08/19/2017 2:44 PM EDT - 08/19/2017 11:59 PM EDT Hospital Encounter XRay at [address] [place] [address] Malgorzata Pappas, HEAD BONE GRINDER [facility] GENERAL INTER[place] [address] Pain in right hip Discharge Disposition: Home [...] thigh documented in this encounter Care Teams Branch Specialist Relationship Specialty Start Date End Date Carlos Alberto Ag MD [facility] [place] [address] PCP - General General Internal Medicine 04/26/17 10/31/19 documented as of this encounter
--- OUTSIDE RECORDS SUMMARY | 2023-11-10 01:10 | XMS_ITS | Encounter Summary ---
Author Organization [facility]ly [facility] [place] [address] Care Team Providers Care Volunteer Services Coordinator Name Role Phone Carlos Alberto Ag MD Primary Care Provider Encounter Details Date Type Department Care Team (Late st Contact Info) Description 10/27/2018 Telephone [place] [phone] Nela Haines Social History Tobacco Use Types [...] on filedocumented in this encounter Care Teams Volunteer Services Coordinator Relationship Specialty Start Date End Date Carlos Alberto Ag MD [facility] [place] [address] PCP - General General Internal Medicine 04/26/17 10/31/19 documented as of this encounter
--- OUTSIDE RECORDS SUMMARY | 2023-11-10 01:10 | XMS_ITS | Encounter Summary ---
Author Organization [facility] Address [facility] [place] [address] Care Team Providers Care Dump Truck Driver Name Role Phone Carlos Alberto Ag MD Primary Care Provider Reason for Visit * Reason Comments Cough +1 week plus of coug jacob, chest hurts because of coughing so much, phleghm mainly dark green Encounter Details Date Type Department Care Team (Late st Contact Info) Description 09/15/2017 9:00 AM EDT Office [place] [address] Adan Markham MD [facility] [place] [address] Viral URI with cough Social History Tobacco [...] discussed symptomatic management of her hersymptoms including kyey-qux-anizdol cough suppressant, saline nasal spray, cacn-wii-aedbpyo analgesics, and continuing adequate hydration. She was advised to return to the clinic if her symptoms do not improve or become worse. Viral URI - Symptomatic management as above - Return precautions discussed F/U with PCP Adan Markham MD ([place]) Internal Medicine, PGY2 Pager #[phone] * Antonio Hernandez MD - 09/15/2017 9:00 [...] site documented in this encounter Care Teams Dump Truck Driver Relationship Specialty Start Date End Date Carlos Alberto Ag MD [facility] [address] PCP - General General Internal Medicine 04/26/17 10/31/19 documented as of this encounter
--- OUTSIDE RECORDS SUMMARY | 2023-11-10 01:11 | XMS_ITS | Encounter Summary ---
Author Organization [facility] [place] [address] Care Team Providers Care Facilities Custodian Name Role Phone Dav Carlos MD Primary Care Provider [phone] Encounter Details Date Type Department Care Team (Late st Contact Info) Description 12/04/2011 3:45 PM EDT Routine Obstetrics and Gynecology at [facility] [place] [phone] CLINIC, Katelin Briones RN GA: [id number] Discharge [...] uncontrolled documented in this encounter Care Teams Facilities Custodian Relationship Specialty Start Date End Date Dav Carlos MD PCP - General 10/01/10 11/30/12 documented as of this encounter
--- OUTSIDE RECORDS SUMMARY | 2023-11-10 01:11 | XMS_ITS | Encounter Summary ---
Author Organization [facility] [place] [address] Care Team Providers Care Alarm Installation Technician Name Role Phone Dav Carlos MD Primary Care Provider [phone] Encounter Details Date Type Department Care Team (Late st Contact Info) Description 12/18/2011 4:02 PM EDT Anesthesia [place] [phone] Reji Banuelos MD [facility] [place] [address] Julio Billy MD [facility] [place] [address] Anesthesia Record Procedure Summary Procedure Name Responsible [...] Date of Encounter: 12/19/11 [address] of Service: [facility] Responsible Attending: Syed Dempsey MD [...] the past, but was intubated asleep at [facility] for a cholecystectomy (she does not recall [...] on filedocumented in this encounter Care Teams Alarm Installation Technician Relationship Specialty Start Date End Date Dav Carlos MD PCP - General 10/01/10 11/30/12 documented as of this encounter
--- OUTSIDE RECORDS SUMMARY | 2023-11-10 01:11 | XMS_ITS | Encounter Summary ---
Author Organization [facility] [place] [address] Care Team Providers Care Title Abstractor Name Role Phone Dav Carlos MD Primary Care Provider [phone] Reason for Visit * Reason Comments Routine Visit Encounter Details Date Type Department Care Team ([facility] st Contact Info) Description 11/10/2011 9:00 AM EDT Routine Obstetrics [place] [address] Marilyn House MD [facility] [address] OBSTETRICS [place] [address] GA: [id number] Discharge Disposition: Home Social History [...] 11/24/2011 10:38 am) Patient Info ID: ? [id number] ? : [birth year] (31 yrs) Name: ? MIGDALIA MOREIRA ? Visit Date: 11/24/2011 10:27 am Performed By Performed By: ?Melissa Villareal RDMS Attending: ? Gerardo PENALOZA, Crispin Bishop Referred By: ? MARILYN HOUSE MD Service(s) Provided UOBFOL - Efw - Growth - Reevaluation - Bermudez ?[id number] - [id number] Indications Efw, Growth Evaluation Num Of Fetuses: [...] Final 11/24/2011 10:38 am) Patient Info ID: [id number] : [birth year] (31 yrs) Name: MIGDALIA MOREIRA Visit Date: 11/24/2011 10:27 am Performed By Performed By: Melissa Villareal RDMS Attending: Crispin Carrillo MD Referred By: MARILYN HOUSE MD Service(s) Provided UOBFOL - Efw - Growth - Reevaluation - Bermudez [id number] - [phone] Indications Efw, Growth Evaluation Num Of Fetuses: [...] high-risk documented in this encounter Care Teams Title Abstractor Relationship Specialty Start Date End Date Dav Carlos MD PCP - General 10/01/10 11/30/12 documented as of this encounter
--- OUTSIDE RECORDS SUMMARY | 2023-11-10 01:11 | XMS_ITS | Encounter Summary ---
Author Organization [facility] [place] [address] Care Team Providers Care Document Preparer Microfilming Name Role Phone Dav Carlos MD Primary Care Provider [phone] Encounter Details Date Type Department Care Team (Latest Contact Info) Description 12/18/2011 9:40 AM EDT - 12/21/2011 11:53 AM EDT [place] [address] Amina Mock MD [facility] DR OBSTETRICS & [place] [address] Pam Prasad MD [facility] OBSTETRICS & [place] [address] Diabetes mellitus; Supervision of high-risk Discharge Disposition: [...] engorgement is relieved. Call your doctor or windows technical specialist for: Fever more than 100.5 Heavy bleeding [...] follow up appointment. You may call the [facility] at any time for guidance or for answers to questions that come up prior to you follow up appointment. Your [facility] Provider can be reached during office hours at [facility]wives [facility]etric[facility] Follow-up Clinic AFTER OFFICE HOURS for the proc tech or windows technical specialist military source operations specialist Provider electronic signature confirms that discharge instructions were reviewed with the patient. A copy was printed and given to the patient. * Patient Instructions* Radha Mathews MD - 12/21/2011 10:36 AM EDT Follow up appointments and recommendations: If not made at the time of discharge, please call your primary OB provider for a follow up appointment. ([phone]) Patient Discharge Instructions: For problems or concerns related to this hospitalization call: [phone] weekdays, or [phone] weekends or nights. Call your doctor if [...] couple. Both employed. 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 Have O[employer] Blue insurance through he employer and [place] secondary. Have local family support. Extended family in area for support: Yes Cognitive Resources: Intact Childbirth Education: Yes/No Educational level: High School + Functional Status: Ambulatory, Independent, Without limitations. C/S recovery with limitations on lifting/driving x 2 weeks. Complications requiring follow-up: Financial Resources: Adequate. No concerns expressed Health Insurance Coverage: [facility] [employer] plus [place] Medicaid. Baby will be placed on Dr Kamara Circus Agent Chosen: Dr Dav Carlos; [facility] Baby's Name: Baby Sindy Garcia Anticipated Continuing Care Needs: Physical: Recovery from . Initiation of . Emotional: Adjustment to period Psychological: Known hx of anxiety/depression. At risk for PPD. Referred to professor of social work for assessment and support while inpatient. Educational: Parenting Continuing Care Plan Development: At home resources/Discharge supports suggested. Printed materials and suggested community resourcesprovided to patient: Visiting Nurse visits: Offered services of [facility] post discharge. Patient declined [facility] ([facility]) 4th Trimester New mom support/[facility]: Referral to [facility]: [facility] in [place] DME ordered : None Breast Pump: N/A Other: Have car seat, transportation, and adequate family support. No direct referrals made at this time. . CRC: Roxanne LEE/ Keny Strong. Beeper [id number] * Amina Mock MD - 12/21/2011 6:57 [...] at term doing well. Plan: Discharge today [place] out in several days Amina Mock MD [...] 20 pounds piror to this adn only [id number] with the . I encouraged her to [...] rounds. LAWRENCE GUO MD PGY1 12/19/2011 Pager #[phone] Attending post - section note ALEXANDRE ELIZABETH [...] assisted to left lateral tilt. EFM placed, ARA=900. MDs aware. To proceed with scheduled repeat [...] 1/2 mL 30 x 5/16 Syrg by [facility]Non-Drug; Combo Route) route. Taking insulin before breakfast, [...] 05/29/2011 GCAMP Negative 05/29/2011 CHLMGENE Negative 05/29/2011 [id number] <0.18* 07/15/2011 AST 14 09/09/2011 Lab Results [...] of group B Streptococcus V02.51A Care Provider: [facility] Admission History (per admit note) Migdalia Garcia [...] none Provider Contact Information: DAV CARLOS MD [phone] Discharge References/Attachments: Discharge References/Attachments None Signed: Santana Mathews MD * Miscellaneous - Provider, Scanning - 12/18/2011 8:37 PM EDT * Op Note - Pam Prasad MD - 12/18/2011 7:12 PM EDT [facility] Operative Note Patient Name: Migdalia Garcia : [id number] MR#: [id number] Case Date: 12/18/2011 Surgeon: Surgeon(s) and Role: * CHELA LOPEZ MD - Resident-Neighborhood Service Center Director * ALEXANDRE ELIZABETH MD - *ASSISTING SURGEON [...] single area of nonhemostasis and a single yjmxfv-df-zckbj was placed for hemostasis. The gutters were [...] for the patient's : Mejia Garcia Girl [[id number]] Delivery 12/18/2011 5:23 PM by Lower Segment [...] providers: Delivery Assist Delivery Nurse Resident Resident Lan Engineer Amina Elizabeth Additional information: Forceps: Vacuum: Breech: [...] for the patient's : Mejia Garcia Girl [[id number]] Delivery 12/18/2011 5:23 PM by Lower Segment [...] providers: Delivery Assist Delivery Nurse Resident Resident Lan Engineer Amina Elizabeth Additional information: Forceps: Vacuum: Breech: [...] Operative Note Patient Name: Migdalia Garcia : [id number] MR#: [id number] Case Date: 12/18/2011 Surgeon: Surgeon(s) and Role: * CHELA LOPEZ MD - Resident-Neighborhood Service Center Director * ALEXANDRE ELIZABETH MD - *ASSISTING SURGEON [...] Glucose 115 60 - 199 mg/dL [facility] Comment: Supplemental ranges: <110 mg/dL before meals <200 mg/dL all other times of the day Blood specimen (specimen) 12/20/2011 6:55 PM EDT 12/20/2011 6:55 PM EDT Pam Prasad MD POINT OF CARE TEST O RDERABLES [facility] * POCT GLUCOSE (12/20/2011 2:00 PM EDT) POC Glucose 106 60 - 199 mg/dL [facility] Comment: Supplemental ranges: <110 mg/dL before meals <200 mg/dL all other times of the day Blood specimen (specimen) 12/20/2011 2:00 PM EDT 12/20/2011 2:00 PM EDT Pam Prasad MD POINT OF CARE TEST O RDTONO Performing Organization Address [facility] de Phone Number [facility] * POCT GLUCOSE (12/20/2011 10:42 AM EDT) POC Glucose 139 60 - 199 mg/dL [facility] Comment: Supplemental ranges: <110 mg/dL before meals <200 mg/dL all other times of the day Blood specimen (specimen) 12/20/2011 10:42 AM EDT 12/20/2011 10:42 AM EDT Pam Prasad MD POINT OF CARE TEST O TARUN Performing Organization Address [facility] de Phone Number [facility] * POCT GLUCOSE (12/19/2011 7:34 PM EDT) POC Glucose 120 60 - 199 mg/dL [facility] Comment: Supplemental ranges: <110 mg/dL before meals <200 mg/dL all other times of the day Blood specimen (specimen) 12/19/2011 7:34 PM EDT 12/19/2011 7:34 PM EDT Pam Prasad MD POINT OF CARE TEST O TARUN Performing Organization Address [facility] de Phone Number [facility] * POCT GLUCOSE (12/19/2011 1:47 PM EDT) POC Glucose 102 60 - 199 mg/dL [facility] Comment: Supplemental ranges: <110 mg/dL before meals <200 mg/dL all other times of the day Blood specimen (specimen) 12/19/2011 1:47 PM EDT 12/19/2011 1:47 PM EDT Pam Prasad MD POINT OF CARE TEST O TARUN Performing Organization Address [facility] de Phone Number [facility] * POCT GLUCOSE (12/19/2011 10:01 AM EDT) POC Glucose 114 60 - 199 mg/dL [facility] Comment: Supplemental ranges: <110 mg/dL before meals <200 mg/dL all other times of the day Blood specimen (specimen) 12/19/2011 10:01 AM EDT 12/19/2011 10:01 AM EDT Pam Prasad MD POINT OF CARE TEST O RDERABLES Performing Organization Address [facility] Co de Phone Number [facility] * POCT GLUCOSE (12/19/2011 7:56 AM EDT) POC Glucose 88 60 - 199 mg/dL [facility] Comment: Supplemental ranges: <110 mg/dL before meals <200 mg/dL all other times of the day Blood specimen (specimen) 12/19/2011 7:56 AM EDT 12/19/2011 7:56 AM EDT Pam Prasad MD POINT OF CARE TEST O RDERABLES Performing Organization Address [facility] de Phone Number [facility] * (ABNORMAL) [...] EDT Pam Prasad MD HEMATOLOGY ORDERABLE S [facility] * (ABNORMAL) Creatinine, serum (12/19/2011 6:10 AM EDT) Creatinine 0.45(L) 0.70 - 1.20 mg/dL [facility] Comment: Please note that the pediatric reference intervals supplied above were not validated at [facility]. Results from pediatric patients should be interpreted [...] Prasad MD CHEMISTRY ORDERABLES Performing Organization Address [facility] de Phone Number [facility] * Aspartate Aminotransferase (12/19/2011 6:10 AM EDT) AST 28 0 - 30 unit/L [facility] Blood specimen (specimen) 12/19/2011 6:10 AM EDT 12/19/2011 6:28 AM EDT Narrative Resulting Agency Comment Spec In Lab Pam Prasad MD CHEMISTRY ORDERABLES Performing Organization Address [facility] de Phone Number [facility] * (ABNORMAL) CBC (with Diff) (12/19/2011 6:10 AM EDT) WBC 11.1(H) 4.0 - 10.0 x10(3)/mcL [facility] RBC 4.16 3.93 - 5.22 x10(6)/mcL [facility] Hemoglobin 13.0 11.2 - 15.7 gm/dL [facility] Hematocrit 37.6 34.0 - 45.0 % [facility] MCV 90.4 79.0 - 94.0 fL [facility] MCH 31.3 26.6 - 32.2 pg [facility] MCHC 34.6 32.0 - 36.5 gm/dL [facility] Platelets 162 145 - 370 x10(3)/mcL [facility] RDWSD 43.0 35.0 - 46.0 fL [facility] RDWCV 13.3 10.9 - 14.4 % [facility] MPV 9.7 9.0 - 12.0 fL [facility] Blood specimen (specimen) 12/19/2011 6:10 [...] MD PATHOLOGY/CYTOLOGY O TARUN Performing Organization Address [facility] de Phone Number [facility] * POCT GLUCOSE (12/18/2011 2:34 PM EDT) POC Glucose 130 60 - 199 mg/dL [facility] Comment: Supplemental ranges: <110 mg/dL before meals <200 mg/dL all other times of the day Blood specimen (specimen) 12/18/2011 2:34 PM EDT 12/18/2011 2:34 PM EDT Pam Prasad MD POINT OF CARE TEST O TARUN Performing Organization Address [facility] de Phone Number [facility] * POCT GLUCOSE (12/18/2011 1:48 PM EDT) POC Glucose 61 60 - 199 mg/dL [facility] Comment: Supplemental ranges: <110 mg/dL before meals <200 mg/dL all other times of the day Blood specimen (specimen) 12/18/2011 1:48 PM EDT 12/18/2011 1:48 PM EDT Pam Prasad MD POINT OF CARE TEST O TARUN Performing Organization Address [facility] Phone Number [facility] * AB COMMENT (12/18/2011 12:25 PM EDT) Ab Information INTERPRETATION : The patient's specimen shows the presence of the antibody anti-D. ??The patient is negative for the RhD antigen. ??The patient recently received RhIg; the reactivity in the specimen almost certainly represents passive anti-D. ??Unit selection is per routine. S, 12/25/2011 [facility] Comment: SALAZAR MOORE, Pathologist Verified:12/25/11 Blood specimen (specimen) 12/18/2011 12:25 PM EDT 12/18/2011 12:25 PM EDT Narrative Resulting Agency Comment Spec In Lab Pam Prasad MD BLOOD BANK LAB ORDER MARIJA Performing Organization Address City/[facility] Co de Phone Number [facility] * ANTIBODY IDENTIFICATION (12/18/2011 12:25 PM EDT) [facility] Ab Identified Anti-D passive [facility] Blood specimen (specimen) 12/18/2011 12:25 PM EDT 12/18/2011 12:25 PM EDT Narrative Resulting Agency Comment Spec In Lab Pam Prasad MD BLOOD BANK LAB ORDER MARIJA Performing Organization Address City/[facility] Co de Phone Number [facility] * SELECTED CELL SCREEN (12/18/2011 12:25 PM EDT) [facility] Ab Screen Interp Anti-D detected, most likely passive antibody related to Rh Immune Globulin administrated on 10/13/2011_. ??No alloantibodies detected. [facility] Blood specimen (specimen) 12/18/2011 12:25 PM EDT 12/18/2011 12:25 PM EDT Narrative Resulting Agency Comment Spec In Lab Pam Prasad MD BLOOD BANK LAB ORDER MARIJA Performing Organization Address [facility] Co de Phone Number [facility] * POCT urine dipstick (12/18/2011 11:36 AM EDT) [facility] POC Sp [place] 1.002 - 1.030 POC pH, UA 5.0 [...] 10:44 AM EDT) Surgical Pathology Report ? [facility] ? Provider: ?? PAM PRASAD ?Pt. Name: ?? MIGDALIA GARCIA ? Acc #: ?[id number] ?Pt. ? Col Date: ?? 12/18/2011 ? [...] Description: ?? Discoid hamm placenta. ?Membranes: ? [place], clear. ??Marginal insertion. ?Cord: ?62.0 x 1.5 [...] Specimen Submitted: ? A - Placenta ? [facility] ? Provider: ?? PAM PRASAD ?Pt. Name: ?? MIGDALIA GARCIA ? Acc #: ?[id number] ?Pt. ? Col Date: ?? 12/18/2011 ? /Sex: ?1980,(31 ? years),Female ? Rec Date: ?? 12/22/2011 ?LOC: ?BP ? SURGICAL PATHOLOGY ? Clinical History/Diagnosis: ? 31 yo S/P repeat section with preeclampsia [facility] 12/18/2011 10:4 4 AM EDT Pam Prasad MD PATHOLOGY/CYTOLOGY O RDERABLES Performing Organization Address [facility] de Phone Number [facility] * ANTIBODY IDENTIFICATION (12/18/2011 10:30 AM EDT) Pathologist [facility] Ab Identified Anti-D passive [facility] Blood specimen (specimen) 12/18/2011 10:30 AM EDT 12/18/2011 11:04 AM EDT Narrative Resulting Agency Comment Spec In Lab Pam Prasad MD BLOOD BANK LAB ORDER MARIJA Performing Organization Address [facility] Co de Phone Number [facility] * DIFFERENTIAL, AUTOMATED (12/18/2011 10:30 AM EDT) Neutrophils % 65.5 34.0 - 71.0 % [facility] Neutr Abs (ANC) 5.73 1.50 [...] BANK LAB ORDER MARIJA Performing Organization Address [facility] de Phone Number [facility] * Aspartate Aminotransferase (12/18/2011 10:30 AM EDT) AST 21 0 - 30 unit/L [facility] Blood specimen (specimen) 12/18/2011 10:30 AM EDT 12/18/2011 10:46 AM EDT Narrative Resulting Agency Comment Spec In Lab Pam Prasad MD CHEMISTRY ORDERABLES Performing Organization Address [facility] de Phone Number [facility] * CBC [...] Best RN) [phone] (Given - Provider: Mayelin hO RN)[phone] (Given - Provider: Mayelin Oh RN) [...] Routine documented in this encounter Care Teams Document Preparer Microfilming Relationship Specialty Start Date End Date Dav Carlos MD PCP - General 10/01/10 11/30/12 documented as of this encounter
--- OUTSIDE RECORDS SUMMARY | 2023-11-10 01:11 | XMS_ITS | Encounter Summary ---
Author Organization [facility] [place] [address] Care Team Providers Care Racecourse Barrier Attendant Name Role Phone Dav Carlos MD Primary Care Provider [phone] Reason for Visit * Reason Comments Suture / Staple Removal Encounter Details Date Type Department Care Team ([facility] st Contact Info) Description 12/23/2011 9:45 AM EDT Office Visit Obstetrics and Gynecology at [facility] [place] [place] [address] Alexandre Powers RN Encounter for removal of [...] Primary documented in this encounter Care Teams Racecourse Barrier Attendant Relationship Specialty Start Date End Date Dav Carlos MD PCP - General 10/01/10 11/30/12 documented as of this encounter
--- OUTSIDE RECORDS SUMMARY | 2023-11-10 01:11 | XMS_ITS | Encounter Summary ---
Author Organization [facility] [place] [address] Care Team Providers Care Mainspring Reverse Winder Name Role Phone Dav Carlos MD Primary Care Provider [phone] Encounter Details Date Type Department Care Team (Latest Contact Info) Description 12/18/2011 9:30 AM EDT Routine Obstetrics [place] [address] CLINIC, Lisette Aviles MD [facility] OBSTETRICS & [place] [address] GA: [id number] Discharge Disposition: Home Social History [...] care documented in this encounter Care Teams Mainspring Reverse Winder Relationship Specialty Start Date End Date Dav Carlos MD PCP - General 10/01/10 11/30/12 documented as of this encounter
--- OUTSIDE RECORDS SUMMARY | 2023-11-10 01:11 | XMS_ITS | Encounter Summary ---
Author Organization [facility] [place] [address] Care Team Providers Care Anesthesiology Physician Name Role Phone Dav Carlos MD Primary Care Provider [phone] Reason for Visit * Reason Comments Non-stress Test Encounter Details Date Type Department Care Team (Latest Contact Info) Description 11/20/2011 2:30 PM EDT Routine Obstetrics and [place]necology at [facility] [place] [phone] Alexandre Powers RN GA: [id number] Discharge Disposition: [...] status documented in this encounter Care Teams Anesthesiology Physician Relationship Specialty Start Date End Date Dav Carlos MD PCP - General 10/01/10 11/30/12 documented as of this encounter
--- OUTSIDE RECORDS SUMMARY | 2023-11-10 01:11 | XMS_ITS | Encounter Summary ---
Author Organization [facility] [place] [address] Care Team Providers Care Inspector Timers Name Role Phone Pita Narayanan MD Primary Care Provider [phone] Encounter Details Date Type Department Care Team (Late st Contact Info) Description 04/13/2014 Telephone Internal Medicine at [facility] [address] [place] [address] Angélica Ochoa Social History Tobacco Use Types [...] on filedocumented in this encounter Care Teams Inspector Timers Relationship Specialty Start Date End Date Pita Narayanan MD [facility] PRIMARY CARE [place], [place] [id number] PCP - General 12/01/12 04/21/15 documented as of this encounter
--- OUTSIDE RECORDS SUMMARY | 2023-11-10 01:11 | XMS_ITS | Encounter Summary ---
Author Organization [facility] [place] [address] Care Team Providers Care Test And Balance Engineer Name Role Phone Dav Carlos MD Primary Care Provider [phone] Reason for Visit * Reason Comments Non-stress Test Type II diabetes Encounter Details Date Type Department Care Team (Latest Contact Info) Description 12/15/2011 9:00 AM EDT Routine Obstetrics and Gynecology at [facility] [place] [phone] Alexandre Powers, RN GA: [id number] Discharge Disposition: [...] uncontrolled documented in this encounter Care Teams Test And Balance Engineer Relationship Specialty Start Date End Date Dav Carlos MD PCP - General 10/01/10 11/30/12 documented as of this encounter
--- OUTSIDE RECORDS SUMMARY | 2023-11-10 01:11 | XMS_ITS | Encounter Summary ---
Author Organization [facility] [place] [address] Care Team Providers Care Worm Picker Name Role Phone Pita Narayanan MD Primary Care Provider [phone] Encounter Details Date Type Department Care Team (Late st Contact Info) Description 01/26/2013 Telephone Internal Medicine at [facility] [address] [place] [address] Makenzie Rutledge CMA Social History [...] on filedocumented in this encounter Care Teams Worm Picker Relationship Specialty Start Date End Date Pita Narayanan MD [facility] [place] [address] PCP - General 12/01/12 04/21/15 documented as of this encounter
--- OUTSIDE RECORDS SUMMARY | 2023-11-10 01:11 | XMS_ITS | Encounter Summary ---
Author Organization [facility] [place] [address] Care Team Providers Care Ambulance Assistant Name Role Phone Dav Carlos MD Primary Care Provider [phone] Encounter Details Date Type Department Care Team (Latest Contact Info) Description 11/24/2011 10:00 AM EDT - 11/24/2011 11:59 PM EDT Hospital Encounter Ultrasound at [facility] [place] [phone] Unspecified high-risk Social History Tobacco Use Types [...] 11/24/2011 10:38 am) Patient Info ID: ? [id number] ? : [birth year] (31 yrs) Name: ? MIGDALIA MOREIRA ? Visit Date: 11/24/2011 10:27 am Performed By Performed By: ?Melissa Villareal RDMS Attending: ? Gerardo PENALOZA, Crispin Bishop Referred By: ? MARILYN HOUSE MD Service(s) Provided UOBFOL - Efw - Growth - Reevaluation - Bermudez ?[id number] - [id number] Indications Efw, Growth Evaluation Num Of Fetuses: [...] Final 11/24/2011 10:38 am) Patient Info ID: [id number] : [birth year] (31 yrs) Name: MIGDALIA MOREIRA Visit Date: 11/24/2011 10:27 am Performed By Performed By: Melissa Villareal RDMS Attending: Crispin Carrillo MD Referred By: MARILYN HOUSE MD Service(s) Provided UOBFOL - Efw - Growth - Reevaluation - [place]z [id number] - [id number] Indications Efw, Growth Evaluation Num Of Fetuses: [...] high-risk documented in this encounter Care Teams Ambulance Assistant Relationship Specialty Start Date End Date Dav Carlos MD PCP - General 10/01/10 11/30/12 documented as of this encounter
--- OUTSIDE RECORDS SUMMARY | 2023-11-10 01:11 | XMS_ITS | Encounter Summary ---
Author Organization [facility]ending [facility] Address [facility] [place] [address] Care Team Providers Care Legal Collector Name Role Phone Pita Narayanan MD Primary Care Provider [phone] Reason for Referral * Consultation (Urgent) - Specialty Diagnoses / Procedures Referred By Contac t Referred To Contact Primary Care Diagnoses Severe episode of recurrent major depressive disorder, without psychotic features Pita Narayanan MD [facility] [place] [address] [facility] Internal Medicine [address] [place] [address] Referral ID Status Reason Start Date Expiration Date Visits Requested Visits Authorized [id number] Specialty Service Requested 04/29/2016 04/29/2017 1 1 Reason for Visit * Reason Comments Establish Care Encounter Details Date Type Department Care Team (Late st Contact Info) Description 04/28/2016 3:30 PM EST Office Visit Internal Medicine at [facility] [address] [place] [phone] [place] [address] Severe episode of recurrent major depressive disorder, without psychotic features; Type 2 diabetes mellitus without complication, unspecified half-way insulin use status; Essential hypertension; Gastroesophageal reflux [...] bupropion and continueon the higher dose venlafaxine [facility] Psychiatry emergency services: [phone] [facility] Emergency room: [phone] WILL[facility] PENALOZA general medical practitioner after 5 pm and on weekends; through [facility] Lead Cargoman [phone] [facility] 24 hr emergency line ([place], [place]) [facility] [place] intake [phone]; [facility] intake [phone] The preferred route for ongoing care is with Ismael Unger since this is closer We will arrange referrals for our consulting psychiatrist here at [facility] and with one of the crisis staff in psychiatry, if needed. You contracted for safety today See emergency resources above Type 2 diabetes mellitus without complication, unspecified half-way insulin use status - POCT glycated hemoglobin, [...] to get more records including labs from [facility] We will contact you about setting up depo shot for week of May 05 or Set up follow up visit with me documented in this encounter Progress Notes * Pita Narayanan MD - 04/28/2016 3:30 PM EST Here to re-est care I was running ~45 min late I met her once in 2012. Then lost to f/u here Went to [facility] for continued primary care. We have one scanned office note from a year ago Difficulties with access to continue to see her provider there, Gwen PEDRO. Pts work schedule somewhat of a factor. Transferred back here. Lives in [facility] Acute issues needed addressing today incl worsening depression with SI. DM not well controlled Last visit at [facility] was 3 months ago for depo Due [...] a therapist. Current living situation is in [facility] with her 2 daughters. They live in [...] here in crisis services Psych here at [facility] [address] for med consult Better for watermelon harvesting supervisor would be Ismael Unger Is aware of [...] mothre Discussed psych emergency resources here, WILLIS general medical practitioner, and Ismael Unger 24 hr hotline. Given [...] Wt was 240 lbs Apr 2015 at [facility] visit Alert, affect appropriate to situation, calm. Speech fluent. NAD Erythema and fine scale around eyelids that looks c/w eyelid dermatitis (did not review further). Anicteric sclerae Mouth: [place] teeth, OP moist, no lesions Neck supple [...] bupropion and continueon the higher dose venlafaxine [facility] Psychiatry emergency services: [phone] [facility] Emergency room: [phone] WILLIS PENALOZA general medical practitioner after 5 pm and on weekends; through [facility] Lead [place] [phone] [facility] 24 hr emergency line ([place], [place]) [facility] intake [phone]; [facility] [place] intake [phone] The preferred route for ongoing care is with Ismael Unger since this is closer We will arrange referrals for our consulting psychiatrist here at [facility] [address] and with one of the crisis staff in psychiatry, if needed. You contracted for safety today See emergency resources above Type 2 diabetes mellitus without complication, unspecified half-way insulin use status - POCT glycated hemoglobin, [...] daily. Could not easily find PPI's on [place] medicaid formulary. Went with this for now and will see if covered Menstrual disorder - medroxyPROGESTERone (DEPO-PROVERA) 150 mg/mL Suspension; Inject 1 mL into the muscle Q 3 Months. Next is due between May 05 and 2016. Previously administered at [facility] Need to get set up. I could [...] to get more records including labs from [facility] We will contact you about setting up [...] mellitus without complication, unspecified half-way insulin use status URINE HOLD Routine 04/28/2016 4:10 PM EST U ALBUMIN/CRE RATIO Routine 04/28/2016 4 :10 PM EST Type 2 diabetes mellitus without complication, unspecified half-way insulin use status documented in this encounter Results * (ABNORMAL) BMP w/fasting Glucose (05/11/2016 10:28 AM EST) [facility] Glucose Fasting 175(H) 65 - 99 mg/dL [facility] Comment: ?Fasting* Glucose Interpretive Criteria Normal [...] of Diabetes Mellitus, Position Statement from the [place] [employer]. ??Diabetes Care, Volume 33, Supplement 1, Apr 2009 BUN 15 8 - 18 mg/dL [facility] Creatinine 0.72 0.70 - 1.20 mg/dL [facility] Comment: Please note that the pediatric reference intervals supplied above were not validated at [facility]. Results from pediatric patients should be interpreted in conjunction to the patient's age, height and muscle mass. Sodium 142 135 - 145 mmol/L [facility] Potassium 4.3 3.5 - 5.0 mmol/L [facility] Comment: Please note: ??Patients with WBC >100,000 may have falsely elevated Potassium levels. ??For accurate Potassium quantification in these patients send serum separator tube (gold top) for subsequent determinations. ??Contact the Clinical Chemistry Laboratory if there are any questions. Chloride 102 98 - 107 mmol/L [facility] CO2 28 22 - 31 mmol/L [facility] Anion Gap 12 5 - 15 mmol/L [facility] Calcium 9.4 8.5 - 10.5 mg/dL [facility] Estimated GFR >60 >=60 [facility] Comment: This estimated GFR [...] the following links into your internet browser. [email or web address] [email or web address] Blood specimen (specimen) 05/11/2016 10:28 AM EST 05/11/2016 1:46 PM EST Narrative Resulting Agency Comment Spec In Lab Pita Narayanan MD CHEMISTRY ORDERABLES [facility] [place] [address] * (ABNORMAL) POCT glycated hemoglobin, total (HA1C) (04/28/2016 4:24 PM EST) POC HA1C 8.0(A) 4.3 - 5.6 % Blood specimen (specimen) 04/28/2016 4:24 PM EST Pita Narayanan MD POINT OF CARE TEST O RDERABLES * Urine Hold (04/28/2016 4:10 PM EST) Pathologist [facility] Urine Hold Sample in lab. [facility] Urine specimen (specimen) Urine / Unknown 04/28/2016 4:10 PM EST 04/29/2016 9:34 AM EST Pita Narayanan MD URINE ORDERABLES [facility] [place] [address] * U Albumin/Cre Ratio (04/28/2016 4:10 PM [...] mg/L [facility] U Creatinine 100 mg/dL [facility] Urine specimen (specimen) 04/28/2016 4:10 PM EST 04/29/2016 11:17 AM EST Narrative Resulting Agency Comment Spec In Lab Pita Narayanan MD URINE ORDERABLES [facility] [place] [address] documented in this encounter Visit Diagnoses Diagnosis Severe episode of recurrent major depressive disorder, without psychotic features Type 2 diabetes mellitus without complication, unspecified watermelon harvesting supervisor insulin use status Essential hypertension Unspecified essential hypertension Gastroesophageal reflux disease, esophagitis presence not specified Menstrual disorder Unspecified disorder of menstruation and other abnormal bleeding from female genital tract Obstructive sleep apnea Obstructive sleep apnea (adult) (pediatric) Increased BMI Other symptoms concerning nutrition, metabolism, and development documented in this encounter Care Teams Legal Collector Relationship Specialty Start Date End Date Pita Narayanan MD [facility] [place] [address] PCP - General General Internal Medicine 01/28/1604/22 documented as of this encounter
--- OUTSIDE RECORDS SUMMARY | 2023-11-10 01:11 | XMS_ITS | Encounter Summary ---
Author Organization [facility] [place] [address] Care Team Providers Care Educational Aid Name Role Phone Pita Narayanan MD Primary Care Provider [phone] Encounter Details Date Type Department Care Team (Late st Contact Info) Description 04/29/2016 Telephone Psychiatry [place] [phone] Bhupinder Ray, GLASS SMOOTHER Social History Tobacco Use Types Packs/Day Years [...] this patient's well-being. Spoke with Marilyn of [facility] who will contact the patient today. documented in this encounter Plan of Treatment Not on file documented as of this encounter Visit Diagnoses Not on filedocumented in this encounter Care Teams Educational Aid Relationship Specialty Start Date End Date Pita Narayanan MD [facility] [address] [place] [address] PCP - General General Internal Medicine 01/28/1604/22 documented as of this encounter
--- OUTSIDE RECORDS SUMMARY | 2023-11-10 01:11 | XMS_ITS | Encounter Summary ---
Author Organization [facility] [place] [address] Care Team Providers Care Absence Management Consultant Name Role Phone Dav Carlos MD Primary Care Provider [phone] Reason for Visit * Reason Comments Routine Visit Encounter Details Date Type Department Care Team ([facility] st Contact Info) Description 11/24/2011 11:15 AM EDT Routine Obstetrics [place] [phone] CLINIC, Marilyn Benites MD [facility] OBSTETRICS & [place] [address] GA: [id number] Discharge Disposition: Home Social History [...] Final 12/18/2011 11:15 am) Patient Info ID: ?[id number] ?: ??[birth year] (31 yrs) Name: ?MIGDALIA MOREIRA ?Visit Date: 12/18/2011 08:57 am Performed By Performed By: ?Melissa Villareal RDMS Attending: ? Arik PENALOZA, E ??Valerie Referred By: ? MARILYN HOUSE MD Service(s) Provided UOBFOL - Efw - Growth - Reevaluation - [place]ermudez ?[id number] - [id number] Indications Reason for exam and clinical history: [...] Final 12/18/2011 11:15 am) Patient Info ID: [id number] : [birth year] (31 yrs) Name: MIGDALIA MOREIRA Visit Date: 12/18/2011 08:57 am Performed By Performed By: Melissa Villareal [facility] Attending: Lisette Elise MD Referred By: MARILYN HOUSE MD Service(s) Provided UOBFO - [facility] - Growth - Reevaluation - [place] [id number] - [phone] Indications Reason for exam and clinical history: [...] high-risk documented in this encounter Care Teams Absence Management Consultant Relationship Specialty Start Date End Date Dav Carlos MD PCP - General 10/01/10 11/30/12 documented as of this encounter
--- OUTSIDE RECORDS SUMMARY | 2023-11-10 01:11 | XMS_ITS | Encounter Summary ---
Author Organization [facility] [place] [address] Care Team Providers Care Machine Puller Name Role Phone Pita Narayanan MD Primary Care Provider [phone] Reason for Visit * Reason Onset Date Comments Medication Refill 01/09/2013 Encounter Details Date Type Department Care Team (Late st Contact Info) Description 01/09/2013 Refill Obstetrics [place] [phone] Marilyn Reilly MD [facility] OBSTETRICS & [place] [address] Hypertension (Primary Dx) Social History Tobacco Use [...] hypertension documented in this encounter Care Teams Machine Puller Relationship Specialty Start Date End Date Pita Narayanan MD [facility] [address] [place] [address] PCP - General 12/01/12 04/21/15 documented as of this encounter
--- OUTSIDE RECORDS SUMMARY | 2023-11-10 01:11 | XMS_ITS | Encounter Summary ---
Author Organization [facility] Veronica [address] [place] [id number] Care Team Providers Care Alterations Tailor Name Role Phone Pita Narayanan MD Primary Care Provider [phone] Reason for Referral * Psychiatric (Routine) - Closed Specialty Diagnoses / Procedures Referred By Contac t Referred To Contact Primary Care Diagnoses Depression Pita Narayanan MD [facility] [place] [address] Karsten Morris MD [facility] [place] [address] Referral ID Status Reason Start Date Expiration Date V isits Requested Visits Authorized [id number] Closed Consult, Test & Treat 01/30/2013 07/29/2013 1 1 Reason for Visit * Reason Comments Establish Care wants to discuss new anti-depressant; may need refills Encounter Details Date Type Department Care Team (Late st Contact Info) Description 01/30/2013 8:25 AM EDT Office Visit Internal Medicine at [facility] [address] [place] [address] Pita Narayanan MD [facility] [place] [address] Healthcare maintenance (Primary Dx); Diabetes mellitus type [...] February 11Wednesday, 0800 am - 1 pm, [facility] Auditorium A, B, C Referral for medication consult with Dr Morris, our consulting psychiatrist at [facility] Psychiatry emergency services: [phone] [facility] Emergency room: [phone] WILLIS PENALOZA pigeon fancier after 5 pm and on weekends; through [facility] Milk Truck Driver [phone] [facility] 24 hr emergency line [facility] ([place] 24 hr emergency line ; appt intake line [phone] While waiting for visit with Dr Morris: [...] Records release for Dr Carlos's office at [facility]. Last 5 years will be sufficient. [...] Appears to have seen Dr Carlos at [facility] for most recent PCP; no records received. 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 Works at [employer] in [place] [facility]. Discussed job security. They have EAP. Says has gotten irritated and walks out. Can be tempermental. Has seen people for this Had worked on this before her sister . Then had a setback with this. PHQ9 is 7. Has been more depressed in past Support network--mother, friend who lives with them, knows 19 years. Mother lives in [place]. There is fhx of depression, anger issues I take care of her mother. No prior abuse hx. No abuse issues with first marriage Father of older child lives in [facility] [facility]. This father not really involved. #DM [...] for eye exam--goes to [facility] in [facility]. No foot paresthesias. Not on anything for [...] Aware of risks to her on this. Xeatov02, also helps regulate menses. Has 1 RF [...] tablet by mouth daily. Records release from [facility]--additional background would have been helpful to [...] EDT) TSH 2.35 0.27 - 4.20 mcIU/mL [facility] Blood specimen (specimen) 01/30/2013 10:22 AM EDT 01/30/2013 12:32 PM EDT Narrative Resulting Agency Comment Spec In Lab Pita Narayanan MD CHEMISTRY ORDERABLES [facility] * Hemoglobin A1c (01/30/2013 10:22 AM EDT) Hemoglobin A1C 5.8 4.3 - 6.1 % [facility] Comment: The [place] Diabetes Association (ADA) has stated that HbA1c [...] 2013:36;suppl 1:S11-S66. Est Avg Gluc 120 mg/dL [facility] Comment: eAG equivalents for HbA1c percentages: [...] into estimated average glucose values. ??Diabetes Care 2008:31(8):1984-9218. Blood specimen (specimen) 01/30/2013 10:22 AM EDT 01/30/2013 12:34 PM EDT Narrative Resulting Agency Comment Spec In Lab Pita Narayanan MD CHEMISTRY ORDERABLES [facility] * (ABNORMAL) Lipid panel (fasting) (01/30/2013 10:22 AM EDT) Chol, Total 160 <=199 mg/dL [facility] Comment: Recommendations of the NCEP Adult Treatment Panel for the following risk cutoff thresholds for the [place] population: Desirable: <200 mg/dL Borderline High: 200-239 mg/dL High: > or = 240 mg/dL Triglycerides 233(H) <=149 mg/dL [facility] Comment: Reference Range: Normal triglycerides: ??<150 mg/dL Borderline high: ??150-199 mg/dL High: ??200-499 mg/dL Very high: ??>me=211 mg/dL PATRICA 2001; 285(19):8108-5887 HDL 40 >=40 mg/dL [facility] Comment: Reference range: ??Low HDL: ?? < 40 mg/dL ??Normal: ?40-60 mg/dL ??Desirable: > 60 mg/dL PATRICA 2001; 285(19):0610-7435 LDL Cholesterol 73 <=99 mg/dL [facility] Comment: Reference range: ?? Optimal: ?<100 mg/dL ?? Near Optimal/Above Optimal: ?? 100-129 mg/dL ?? Borderline high: ?130-159 mg/dL ?? High: ? 160-189 mg/dL ?? Very high: ?>jx=143 mg/dL PATRICA 2001: 285(19):7807-6806 Chol/HDL Ratio 4.0 ratio [facility]EV[facility] Comment: A Cholesterol to HDL ratio below 4:1 is desirable. ??Studies suggest that increased CAD risk occurs at ratios above 5 for females and above 6 for men. ? [place] Heart Association ??(http://www.americanheart.org) ? Michaela Int Med, 1994; 121:641 ? AM J Med, 1998; 105(1A):48S Blood specimen (specimen) 01/30/2013 10:22 AM EDT 01/30/2013 12:32 PM EDT Narrative Resulting Agency Comment Spec In Lab Pita Narayanan MD CHEMISTRY ORDERABLES [facility] * (ABNORMAL) BMP w/fasting Glucose (01/30/2013 10:22 AM EDT) Glucose Fasting 123(H) 65 - 99 mg/dL [facility] Comment: ?Fasting* Glucose Interpretive Criteria Normal ?65-99 [...] of Diabetes Mellitus, Position Statement from the [place] Diabetes Association. ??Diabetes Care, Volume 33, Supplement 1, Apr 2009 BUN 9 8 - 18 mg/dL CERNER MILLENNIUM Creatinine 0.67(L) 0.70 - 1.20 mg/dL CERNER MILLENNIUM Comment: Please note that the pediatric reference intervals supplied above were not validated at [facility]. Results from pediatric patients should be interpreted [...] Narayanan MD CHEMISTRY ORDERABLES Performing Organization Address City/[facility] Co de Phone Number ANA GILMAN * Microalbumin, urine, random (01/30/2013 10:07 AM EDT) U Creatinine 166 mg/dL CERNER MILLENNIUM U Albumin Conc, Random 169.9 mg/L CERNER MILLENNIUM Alb/Cr Ratio, Random 102 mcg/mg Cr CERNER MILLENNIUM Comment: Reference Range* Random collection (mcg/mg creatinine) Normal ?<30 Microalbuminuria ?? 30 - 300 Clinical Albuminuria ?? >300 *[place] Diabetes Association. Diabetic Nephropathy. Diabetes Care 1997;(Suppl 1):S24-S27 Exercise within 24 hour, infection, fever, CHF, marked hyperglycemia, and marked hypertension may elevate urinary albumin excretion over baseline values. Urine specimen (specimen) 01/30/2013 10:07 AM EDT 01/30/2013 12:31 PM EDT Narrative Resulting Agency Comment Spec In Lab Pita Narayanan MD URINE ORDERABLES Performing Organization Address City/[facility] Co de Phone Number ANA GILMAN [...] reflux documented in this encounter Care Teams Alterations Tailor Relationship Specialty Start Date End Date Pita Narayanan MD [facility] [address] [place] [address] PCP - General 12/01/12 04/21/15 documented as of this encounter
--- OUTSIDE RECORDS SUMMARY | 2023-11-10 01:11 | XMS_ITS | Encounter Summary ---
Author Organization [facility] [place] [address] Care Team Providers Care Manager Power Name Role Phone Dav Carlos MD Primary Care Provider [phone] Encounter Details Date Type Department Care Team (Latest Contact Info) Description 12/18/2011 8:45 AM EDT - 12/18/2011 9:44 AM EDT Hospital Encounter Ultrasound [facility] [place] [phone] Unspecified high-risk Social History Tobacco Use Types [...] Final 12/18/2011 11:15 am) Patient Info ID: ?[id number] ?: ??[birth year] (31 yrs) Name: ?MIGDALIA MOREIRA ?Visit Date: 12/18/2011 08:57 am Performed By Performed By: ?Melissa Villareal RDMS Attending: ? Lisette Elise MD ??Valerie Referred By: ? MARILYN HOUSE MD Service(s) Provided UOBFOL - Efw - Growth - Reevaluation - [place] ?[id number] - [id number] Indications Reason for exam and clinical history: [...] Final 12/18/2011 11:15 am) Patient Info ID: [id number] : [birth year] (31 yrs) Name: MIGDALIA MOREIRA Visit Date: 12/18/2011 08:57 am Performed By Performed By: Melissa Villareal RUST Attending: Lisette Elise MD Referred By: MARILYN HOUSE MD Service(s) Provided UOBFOL - Efw - Growth - Reevaluation - [place] [id number] - [id number] Indications Reason for exam and clinical history: [...] high-risk documented in this encounter Care Teams Manager Power Relationship Specialty Start Date End Date Dav Carlos MD PCP - General 10/01/10 11/30/12 documented as of this encounter
--- OUTSIDE RECORDS SUMMARY | 2023-11-10 01:11 | XMS_ITS | Encounter Summary ---
Author Organization [facility] [place] [address] Care Team Providers Care Roll Picker Name Role Phone Dav Carlos MD Primary Care Provider [phone] Reason for Visit * Reason Comments Routine Visit Encounter Details Date Type Department Care Team ([facility] st Contact Info) Description 12/01/2011 10:30 AM EDT Routine Obstetrics [place] [address] [facility] DR OBSTETRICS & [place] [address] GA: [id number] Discharge Disposition: Home Social History [...] care documented in this encounter Care Teams Roll Picker Relationship Specialty Start Date End Date Dav Carlos MD PCP - General 10/01/10 11/30/12 documented as of this encounter
--- OUTSIDE RECORDS SUMMARY | 2023-11-10 01:11 | XMS_ITS | Encounter Summary ---
Author Organization [facility] [place] [address] Care Team Providers Care Stereotype Molder Name Role Phone Dav Carlos MD Primary Care Provider [phone] Reason for Visit * Reason Comments Routine Visit Encounter Details Date Type Department Care Team (Latest Contact Info) Description 11/17/2011 10:30 AM EDT Routine Obstetrics [place] [address] Lisette Elise MD [facility] [address] OBSTETRICS [place] [address] GA: [id number] Discharge Disposition: Home Social History [...] uncontrolled documented in this encounter Care Teams Stereotype Molder Relationship Specialty Start Date End Date Dav Carlos MD PCP - General 10/01/10 11/30/12 documented as of this encounter
--- OUTSIDE RECORDS SUMMARY | 2023-11-10 01:11 | XMS_ITS | Encounter Summary ---
Author Organization [facility] [place] [address] Care Team Providers Care Sour Bleaching Pleater Name Role Phone Galina Hook MD Primary Care Provider [phone] Reason for Visit * Reason Comments Care Encounter Details Date Type Department Care Team (Latest Contact Info) Description 02/01/2012 4:30 PM EDT Visit Obstetrics [place] [address] Amina Mock MD [facility] DR OBSTETRICS & [place] [address] Lisette Elise MD [facility] OBSTETRICS & [place] [address] Diabetes mellitus; Hypertension; CADY (obstructive sleep apnea); [...] encounter Miscellaneous Notes * Miscellaneous - Bradley, Tire Installer - 02/04/2012 1:23 PM EDT documented in [...] status documented in this encounter Care Teams Sour Bleaching Pleater Relationship Specialty Start Date End Date Galina Hook MD PCP - General 10/01/10 11/30/12 documented as of this encounter
--- OUTSIDE RECORDS SUMMARY | 2023-11-10 01:11 | XMS_ITS | Encounter Summary ---
Author Organization [facility] [place] [address] Care Team Providers Care Captain Assistant Name Role Phone Pita Narayanan MD Primary Care Provider [phone] Encounter Details Date Type Department Care Team (Latest Contact Info) Description 05/11/2016 1:40 PM EST Clinical Support Internal Medicine at [facility] [address] [place] [address] Yoly Palacios RN Encounter for contraceptive management, [...] Tissue documented in this encounter Care Teams Captain Assistant Relationship Specialty Start Date End Date Pita Narayanan MD [facility] [address] [place] [address] PCP - General General Internal Medicine 01/28/1604/22 documented as of this encounter
--- OUTSIDE RECORDS SUMMARY | 2023-11-10 01:11 | XMS_ITS | Encounter Summary ---
Author Organization [facility] [place] [address] Care Team Providers Care Program Control Analyst Name Role Phone Dav Carlos MD Primary Care Provider [phone] Encounter Details Date Type Department Care Team (Late st Contact Info) Description 12/18/2011 1:00 PM EDT - 12/18/2011 2:59 PM [place] [phone] Pma Prasad MD [facility] OBSTETRICS & [place] [address] @ DELIVERY (WRVU 16.13) Social History Tobacco [...] engorgement is relieved. Call your doctor or right of way appraiser for: Fever more than 100.5 Heavy bleeding [...] follow up appointment. You may call the [facility] at any time for guidance or for answers to questions that come up prior to you follow up appointment. Your [facility] Provider can be reached during office hours at [facility] Follow-up Clinic AFTER OFFICE HOURS for the distance education faculty liaison or right of way appraiser coroner forensic technician Provider electronic signature confirms that discharge instructions were reviewed with the patient. A copy was printed and given to the patient. * Patient Instructions* Radha Mathews MD - 12/21/2011 10:36 AM EDT Follow up appointments and recommendations: If not made at the time of discharge, please call your primary OB provider for a follow up appointment. ([phone]) Patient Discharge Instructions: For problems or concerns related to this hospitalization call: [phone] weekdays, or [phone] weekends or nights. Call your doctor if [...] and 6 yr old daughter Barbara. Where: [facility] Approx time in community: Years Social Resources: Intact couple. Both employed. 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 Have [employer] [place] through [place] and [place] secondary. Have local family support. Extended family in area for support: Yes Cognitive Resources: Intact Childbirth Education: Yes/No Educational level: High School + Functional Status: Ambulatory, Independent, Without limitations. C/S recovery with limitations on lifting/driving x 2 weeks. Complications requiring follow-up: Financial Resources: Adequate. No concerns expressed Health Insurance Coverage: [facility] [employer] plus [place] Medicaid. Baby will be placed on Dr [employer] Secretary Chosen: Dr Dav Carlos; [facility] Baby's Name: Baby Girl Radha Anticipated Continuing Care Needs: Physical: Recovery from . Initiation of . Emotional: Adjustment to period Psychological: Known hx of anxiety/depression. At risk for PPD. Referred to social media assistant for assessment and support while inpatient. Educational: Parenting Continuing Care Plan Development: At home resources/Discharge supports suggested. Printed materials and suggested community resourcesprovided to patient: Visiting Nurse visits: Offered services of [facility] post discharge. Patient declined [facility] ([facility]) 4th Trimester New mom support/[facility] [place] Healthy Babies: Referral to [facility]: [facility] in [place] DME ordered : None Breast Pump: N/A Other: Have car seat, transportation, and adequate family support. No direct referrals made at this time. . CRC: Roxanne LEE/ Keny Strong. Beeper [id number] * Amina Mock MD - 12/21/2011 6:57 [...] 20 pounds piror to this adn only with the . I encouraged her to [...] rounds. LAWRENCE GUO MD PGY1 12/19/2011 Pager #[phone] Attending post - section note ALEXANDRE ELIZABETH [...] full 24 hours.Remainder of plan as above. ALEXNADRE ELIZABETH MD 12/19/2011 * Amina Jarrell RN - 12/18/2011 4:48 PM EDT [id number]-CSE in, pt assisted to left lateral tilt. EFM placed, TWS=302. MDs aware. To proceed with scheduled repeat . documented in this encounter H&P Notes * Pma Prasad MD - 12/18/2011 10:34 AM EDT [...] 1/2 mL 30 x 5/16 Syrg by [facility].(Non-Drug; Combo Route) route. Taking insulin before breakfast, [...] 05/29/2011 GCAMP Negative 05/29/2011 CHLMGENE Negative 05/29/2011 [id number] <0.18* 07/15/2011 AST 14 09/09/2011 Lab Results [...] none Provider Contact Information: DAV CARLOS MD [phone] Discharge References/Attachments: Discharge References/Attachments None Signed: Santana Mathews MD * Miscellaneous - Provider, Scanning - 12/18/2011 8:37 PM EDT * Op Note - Pam Prasad MD - 12/18/2011 7:12 PM EDT [facility] Operative Note Patient Name: Migdalia Garcia : [id number] MR#: [id number] Case Date: 12/18/2011 Surgeon: Surgeon(s) and Role: * CHELA LOPEZ MD - Resident-Wire Lather * ALEXANDRE ELIZABETH MD - *ASSISTING SURGEON [...] single area of nonhemostasis and a single [id number]-azjhn was placed for hemostasis. The gutters were [...] for the patient's : Mejia Garcia Girl [[id number]] Delivery 12/18/2011 5:23 PM by Lower Segment [...] providers: Delivery Assist Delivery Nurse Resident Resident Technical Services Representative Amina Elizabeth Additional information: Forceps: Vacuum: Breech: [...] for the patient's : Mejia Garcia Girl [[id number]] Delivery 12/18/2011 5:23 PM by Lower Segment [...] Complications: Nuchal X 1 Placenta: Delivered: appearance [employer] Measurements: Weight: 8 lb 2.9 oz (3710 g) Height: 20 Head circumference: 35 cm Chest circumference: Other providers: Delivery Assist Delivery Nurse Resident Resident Technical Services Representative Amina Elizabeth Additional information: Forceps: Vacuum: Breech: [...] Operative Note Patient Name: Migdalia Garcia : [id number] MR#: [id number] Case Date: 12/18/2011 Surgeon: Surgeon(s) and Role: * CHELA LOPEZ MD - Resident-Wire Lather * ALEXANDRE ELIZABETH MD - *ASSISTING SURGEON [...] POC Glucose 115 60 - 199 mg/dL [facility] Comment: Supplemental ranges: <110 mg/dL before meals <200 mg/dL all other times of the day Blood specimen (specimen) 12/20/2011 6:55 PM EDT 12/20/2011 6:55 PM EDT Pam Prasad MD POINT OF CARE TEST O TARUN Performing Organization Address City/State/[facility] Co de Phone Number [facility] * POCT GLUCOSE (12/20/2011 2:00 PM EDT) POC Glucose 106 60 - 199 mg/dL ANA [facility] Comment: Supplemental ranges: <110 mg/dL before meals <200 mg/dL all other times of the day Blood specimen (specimen) 12/20/2011 2:00 PM EDT 12/20/2011 2:00 PM EDT Pam Prasad MD POINT OF CARE TEST O RDERABLES Performing Organization Address [facility] Co de Phone Number [facility] * POCT GLUCOSE (12/20/2011 10:42 AM EDT) POC Glucose 139 60 - 199 mg/dL [facility] Comment: Supplemental ranges: <110 mg/dL before meals <200 mg/dL all other times of the day Blood specimen (specimen) 12/20/2011 10:42 AM EDT 12/20/2011 10:42 AM EDT Pam Prasad MD POINT OF CARE TEST O RDERABLES Performing Organization Address [facility] Co de Phone Number [facility] * POCT GLUCOSE (12/19/2011 7:34 PM EDT) POC Glucose 120 60 - 199 mg/dL [facility] Comment: Supplemental ranges: <110 mg/dL before meals <200 mg/dL all other times of the day Blood specimen (specimen) 12/19/2011 7:34 PM EDT 12/19/2011 7:34 PM EDT Pam Prasad MD POINT OF CARE TEST O RDERABLES Performing Organization Address [facility] Co de Phone Number [facility] * POCT GLUCOSE (12/19/2011 1:47 PM EDT) POC Glucose 102 60 - 199 mg/dL [facility] Comment: Supplemental ranges: <110 mg/dL before meals <200 mg/dL all other times of the day Blood specimen (specimen) 12/19/2011 1:47 PM EDT 12/19/2011 1:47 PM EDT Pam Prasad MD POINT OF CARE TEST O RDERABLES Performing Organization Address [facility] Co de Phone Number [facility] * POCT GLUCOSE (12/19/2011 10:01 AM EDT) POC Glucose 114 60 - 199 mg/dL [facility] Comment: Supplemental ranges: <110 mg/dL before meals <200 mg/dL all other times of the day Blood specimen (specimen) 12/19/2011 10:01 AM EDT 12/19/2011 10:01 AM EDT Pam Prasad MD POINT OF CARE TEST O RDERABLES Performing Organization Address [facility] Co de Phone Number [facility] * POCT GLUCOSE (12/19/2011 7:56 AM EDT) POC Glucose 88 60 - 199 mg/dL [facility] Comment: Supplemental ranges: <110 mg/dL before meals <200 mg/dL all other times of the day Blood specimen (specimen) 12/19/2011 7:56 AM EDT 12/19/2011 7:56 AM EDT Pam Prasad MD POINT OF CARE TEST O RDTONO Performing Organization Address [facility] de Phone Number [facility] * (ABNORMAL) [...] EDT Pam Prasad MD HEMATOLOGY ORDERABLE S [facility] [facility] * (ABNORMAL) Creatinine, serum (12/19/2011 6:10 AM EDT) Creatinine 0.45(L) 0.70 - 1.20 mg/dL [facility] Comment: Please note that the pediatric reference intervals supplied above were not validated at [facility]. Results from pediatric patients should be interpreted [...] Prasad MD CHEMISTRY ORDERABLES Performing Organization Address [facility] Co de Phone Number [facility] * Aspartate Aminotransferase (12/19/2011 6:10 AM EDT) AST 28 0 - 30 unit/L [facility] Blood specimen (specimen) 12/19/2011 6:10 AM EDT 12/19/2011 6:28 AM EDT Narrative Resulting Agency Comment Spec In Lab Pam Prasad MD CHEMISTRY ORDERABLES Performing Organization Address [facility] Co de Phone Number [facility] * (ABNORMAL) CBC (with Diff) (12/19/2011 6:10 AM EDT) WBC 11.1(H) 4.0 - 10.0 x10(3)/mcL [facility] RBC 4.16 3.93 - 5.22 x10(6)/mcL [facility] Hemoglobin 13.0 11.2 - 15.7 gm/dL [facility] Hematocrit 37.6 34.0 - 45.0 % [facility] MCV 90.4 79.0 - 94.0 fL [facility] MCH 31.3 26.6 - 32.2 pg [facility] MCHC 34.6 32.0 - 36.5 gm/dL [facility] Platelets 162 145 - 370 x10(3)/mcL [facility] RDWSD 43.0 35.0 - 46.0 fL [facility] RDWCV 13.3 10.9 - 14.4 % [facility] MPV 9.7 9.0 - 12.0 fL [facility] Blood specimen (specimen) 12/19/2011 6:10 AM EDT 12/19/2011 6:28 AM EDT Narrative Resulting Agency Comment Spec In Lab Pam Prasad MD HEMATOLOGY ORDERABLE S Performing Organization Address [facility] de Phone Number [facility] * POCT GLUCOSE (12/18/2011 9:11 PM EDT) POC Glucose 75 60 - 199 mg/dL [facility] Comment: Supplemental ranges: <110 mg/dL before meals <200 mg/dL all other times of the day Blood specimen (specimen) 12/18/2011 9:11 PM EDT 12/18/2011 9:11 PM EDT Pam Prasad MD POINT OF CARE TEST O TARUN Performing Organization Address [facility] de Phone Number [facility] * Specimen to Pathology (NON-OR) (12/18/2011 7:07 PM EDT) AP Specimen 12/18/2011 7:07 PM EDT 12/18/2011 7:07 PM EDT Narrative [facility] - 12/18/2011 7:07 PM EDT Specimen requisition ordered. ??Separate Pathology report to follow Pam Prasad MD PATHOLOGY/CYTOLOGY O TARUN Performing Organization Address [facility]/ZIP Co de Phone Number [facility] * POCT GLUCOSE (12/18/2011 2:34 PM EDT) POC Glucose 130 60 - 199 mg/dL [facility] Comment: Supplemental ranges: <110 mg/dL before meals <200 mg/dL all other times of the day Blood specimen (specimen) 12/18/2011 2:34 PM EDT 12/18/2011 2:34 PM EDT Pam Prasad MD POINT OF CARE TEST O RDERABLES Performing Organization Address [facility] Phone Number [facility] * POCT GLUCOSE (12/18/2011 1:48 PM EDT) POC Glucose 61 60 - 199 mg/dL [facility] Comment: Supplemental ranges: <110 mg/dL before meals <200 mg/dL all other times of the day Blood specimen (specimen) 12/18/2011 1:48 PM EDT 12/18/2011 1:48 PM EDT Pam Prasad MD POINT OF CARE TEST O RDERABLES Performing Organization Address [facility] Phone Number [facility] * AB COMMENT (12/18/2011 12:25 PM EDT) Ab Information INTERPRETATION : The patient's specimen shows the presence of the antibody anti-D. ??The patient is negative for the RhD antigen. ??The patient recently received RhIg; the reactivity in the specimen almost certainly represents passive anti-D. ??Unit selection is per routine. ZMS, 12/25/2011 [facility] Comment: SALAZAR MOORE, Pathologist Verified:12/25/11 Blood specimen (specimen) 12/18/2011 12:25 PM EDT 12/18/2011 12:25 PM EDT Narrative Resulting Agency Comment Spec In Lab Pam Prasad MD BLOOD BANK LAB ORDER MARIJA Performing Organization Address [facility]/ZIP Co de Phone Number [facility] * ANTIBODY IDENTIFICATION (12/18/2011 12:25 PM EDT) Pathologist [facility] Ab Identified Anti-D passive [facility] Blood specimen (specimen) 12/18/2011 12:25 PM EDT 12/18/2011 12:25 PM EDT Narrative Resulting Agency Comment Spec In Lab Pam Prasad MD BLOOD BANK LAB ORDER MARIJA Performing Organization Address [facility] Co de Phone Number ANA GILMAN * SELECTED CELL SCREEN (12/18/2011 12:25 PM EDT) Pathologist [facility] Ab Screen Interp Anti-D detected, most likely passive antibody related to Rh Immune Globulin administrated on 10/13/2011_. ??No alloantibodies detected. [facility] Blood specimen (specimen) 12/18/2011 12:25 PM EDT 12/18/2011 12:25 PM EDT Narrative Resulting Agency Comment Spec In Lab Pam Prasad MD BLOOD BANK LAB ORDER MARIJA Performing Organization Address [facility] de Phone Number ANA GILMAN * POCT urine dipstick (12/18/2011 11:36 AM EDT) Pathologist [facility] POC Sp [place] 1.002 - 1.030 POC pH, UA 5.0 [...] 10:44 AM EDT) Surgical Pathology Report ? [facility] ? Provider: ?? PAM PRASAD ?Pt. Name: ?? MIGDALIA GARCIA ? Acc #: ?[id number] ?Pt. ? Col Date: ?? 12/18/2011 ? [...] Description: ?? Discoid hamm placenta. ?Membranes: ? [place], clear. ??Marginal insertion. ?Cord: ?62.0 x 1.5 [...] Specimen Submitted: ? A - Placenta ? [facility] ? Provider: ?? PAM PRASAD ?Pt. Name: ?? MIGDALIA GARCIA ? Acc #: ?[id number] ?Pt. ? Col Date: ?? 12/18/2011 ? /Sex: ?1980,(31 ? years),Female ? Rec Date: ?? 12/22/2011 ?LOC: ?BP ? SURGICAL PATHOLOGY ? Clinical History/Diagnosis: ? 31 yo S/P repeat section with preeclampsia [facility] MILLENNIUM 12/18/2011 10:4 4 AM EDT Pam Prasad MD PATHOLOGY/CYTOLOGY O RDERABLES Performing Organization Address [facility] Co de Phone Number [facility] * ANTIBODY IDENTIFICATION (12/18/2011 10:30 AM EDT) Pathologist [facility] Ab Identified Anti-D passive [facility] Blood specimen (specimen) 12/18/2011 10:30 AM EDT 12/18/2011 11:04 AM EDT Narrative Resulting Agency Comment Spec In Lab Pam Prasad MD BLOOD BANK LAB ORDER MARIJA Performing Organization Address [facility] Co de Phone Number [facility] * DIFFERENTIAL, AUTOMATED (12/18/2011 10:30 [...] BANK LAB ORDER MARIJA Performing Organization Address [facility] de Phone Number [facility] * Aspartate Aminotransferase (12/18/2011 10:30 AM EDT) AST 21 0 - 30 unit/L [facility] Blood specimen (specimen) 12/18/2011 10:30 AM EDT 12/18/2011 10:46 AM EDT Narrative Resulting Agency Comment Spec In Lab Pam Prasad MD CHEMISTRY ORDERABLES Performing Organization Address [facility] Co de Phone Number ANA [...] Routine documented in this encounter Care Teams Program Control Analyst Relationship Specialty Start Date End Date Dav Carlos MD PCP - General 10/01/10 11/30/12 documented as of this encounter
--- OUTSIDE RECORDS SUMMARY | 2023-11-10 01:11 | XMS_ITS | Encounter Summary ---
Author Organization [facility] [place] [address] Care Team Providers Care Wireline Supervisor Name Role Phone Pita Narayanan MD Primary Care Provider [phone] Reason for Visit * Reason Comments Medication Refill Encounter Details Date Type Department Care Team ([facility] st Contact Info) Description 12/15/2013 Refill Internal Medicine at [facility] [address] [place] [id number] Pita Narayanan MD [facility] [place] [address] Diabetes mellitus type 2, uncomplicated (Primary Dx); [...] maintenance Routine general medical examination at a [facility] care facility Gastroesophageal reflux disease Esophageal reflux documented in this encounter Care Teams Wireline Supervisor Relationship Specialty Start Date End Date Pita Narayanan MD [facility] [address] [facility] [place] [address] PCP - General 12/01/12 04/21/15 documented as of this encounter
--- OUTSIDE RECORDS SUMMARY | 2023-11-10 01:11 | XMS_ITS | Encounter Summary ---
Author Organization [facility] [place] [address] Care Team Providers Care Performance Test Engineer Name Role Phone Dav Carlos MD Primary Care Provider Reason for Visit * Reason Comments Non-stress Test Routine Visit Encounter Details Date Type Department Care Team (Late st Contact Info) Description 12/08/2011 10:30 AM EDT Routine Obstetrics [place] [address] Marilyn House MD [facility] [address] OBSTETRICS & [place] [address] [place]: [id number] Discharge Disposition: Home Social History [...] given two booklets; Going Home with Your [place] and Anesthesia Guidelines. A Laborinstructions term pamphlet, Group B Streptococcus Informational Sheet, and Circumcision Letter (if applicable) was also given. The patient received additional pamphlets entitled Position and Tips for Successful and [facility] Services. documented in this encounter Plan of [...] AM EDT) Group B Strep Screen Pos [facility] Pooled specimen from vaginal introitus and rectal swab (specimen) 12/08/2011 10:39 AM EDT 12/08/2011 3:04 PM EDT Comment:PENICILLIN ALLERGY?- >NO Narrative Resulting Agency Comment Spec In Lab Marilyn House MD MICROBIOLOGY - GEN ERAL ORDERABLES [facility] * Group B Strep Culture Screen (12/08/2011 10:39 AM EDT) Group B Streptococcus Culture ? Patient Name: MIGDALIA MOREIRA ? Ordered By: MARILYN HOUSE ? MR#: [id number] ?LOC: ??5L ? /Sex: ??1980 (31 years), [...] MD MICROBIOLOGY - GEN ERAL ORDERABLES [facility] documented in this encounter Visit Diagnoses Diagnosis Unspecified high-risk documented in this encounter Care Teams Performance Test Engineer Relationship Specialty Start Date End Date Dav Carlos MD PCP - General 10/01/10 11/30/12 documented as of this encounter
--- OUTSIDE RECORDS SUMMARY | 2023-11-10 01:11 | XMS_ITS | Encounter Summary ---
Author Organization [facility] [place] [address] Care Team Providers Care Proc Tech Name Role Phone Pita Narayanan MD Primary Care Provider [phone] Encounter Details Date Type Department Care Team (Late st Contact Info) Description 04/29/2016 Orders Only Internal Medicine at [facility] [address] [place] [phone] Faye Jackson RN Irregular menses Social History [...] cycle documented in this encounter Care Teams Proc Tech Relationship Specialty Start Date End Date Pita Narayanan MD [facility] [place] [address] PCP - General General Internal Medicine 01/28/1604/22 documented as of this encounter
--- OUTSIDE RECORDS SUMMARY | 2023-11-10 01:11 | XMS_ITS | Encounter Summary ---
Author Organization [facility] [place] [address] Care Team Providers Care Lawn Mower Name Role Phone Pita Narayanan MD Primary Care Provider [phone] Encounter Details Date Type Department Care Team (Late st Contact Info) Description 04/29/2016 Telephone Internal Medicine at [facility] [address] [place] [address] Pita Narayanan MD [facility] [place] [address] Social History Tobacco Use Types Packs/Day Years [...] on filedocumented in this encounter Care Teams Lawn Mower Relationship Specialty Start Date End Date Pita Narayanan MD [facility] [place] [id number] PCP - General General Internal Medicine 01/28/1604/22 documented as of this encounter
--- OUTSIDE RECORDS SUMMARY | 2023-11-10 01:11 | XMS_ITS | Encounter Summary ---
Author Organization [facility] [place] [address] Care Team Providers Care Ingot Weigher Name Role Phone Dav Carlos MD Primary Care Provider [phone] Reason for Visit * Reason Comments Non-stress Test Encounter Details Date Type Department Care Team (Latest Contact Info) Description 12/11/2011 11:15 AM EDT Routine Obstetrics [facility]cology at [facility] [place] [phone] Alexandre Powers, RN GA: [id number] Discharge Disposition: [...] uncontrolled documented in this encounter Care Teams Ingot Weigher Relationship Specialty Start Date End Date Dav Carlos MD PCP - General 10/01/10 11/30/12 documented as of this encounter
--- OUTSIDE RECORDS SUMMARY | 2023-11-10 01:12 | XMS_ITS | Encounter Summary ---
Author Organization Formerly [facility] [place] [address] Care Team Providers Care Air Lift Operator Name Role Phone Dav Carlos MD Primary Care Provider [phone] Encounter Details Date Type Department Care Team (Latest Contact Info) Description 10/13/2011 10:25 AM EDT - 10/13/2011 11:59 PM EDT Hospital Encounter Ultrasound at [facility] [place] [address] Supervision of high-risk ; Diabetes mellitus Social [...] 10/13/2011 11:40 am) Patient Info ID: ? [id number] ? : ??[birth year] (31 yrs) Name: ? MIGDALIA MOREIRA ? Visit Date: 10/13/2011 11:28 am Performed By Performed By: ?Neda Hernandez [facility] Attending: ? Arik PENALOZA, Lisette ??Valerie Referred By: ? JULIEN ELIZABETH MD Service(s) Provided UOBFOL - Efw - Growth - Reevaluation - Bermudez ?[id number] - [phone] Indications Efw, Growth IDDM; Evaluation Num Of [...] Final 10/13/2011 11:40 am) Patient Info ID: [id number] : [birth year] (31 yrs) Name: MIGDALIA MOREIRA Visit Date: 10/13/2011 11:28 am Performed By Performed By: Neda Hernandez [facility] Attending: Lisette Elise MD Referred By: JULIEN ELIZABETH MD Service(s) Provided UOBFOL - Efw - Growth - Reevaluation - [place] [phone] - [phone] Indications Efw, Growth IDDM; Evaluation Num Of [...] uncontrolled documented in this encounter Care Teams Air Lift Operator Relationship Specialty Start Date End Date Dav Carlos MD PCP - General 10/01/10 11/30/12 documented as of this encounter
--- OUTSIDE RECORDS SUMMARY | 2023-11-10 01:12 | XMS_ITS | Encounter Summary ---
Author Organization [facility] Address [facility] [place] [address] Care Team Providers Care Stoneworking Sander Name Role Phone Dav Carlos MD Primary Care Provider [phone] Encounter Details Date Type Department Care Team (Latest Contact Info) Description 10/13/2011 10:01 AM EDT - 10/13/2011 11:59 PM EDT Hospital [place] [phone] Marilyn Reilly MD [facility] OBSTETRICS [place] [address] Unspecified high-risk Discharge Disposition: Home Social History [...] AM EDT Unspecified high-risk TYPE AND SCREEN ([facility]) Routine 10/13/2011 10:02 AM EDT Unspecified high-risk [...] AM EDT 10/13/2011 10:21 AM EDT Marilyn eRilly MD HEMATOLOGY ORDERAB LES ANA FERNÁNDEZIUM * ANTIBODY SCREEN (10/13/2011 10:14 AM EDT) Ab Screen Interp Negative ANA FERNÁNDEZIUM Expires at [id number] on: [id number] ANA FERNÁNDEZIUM Blood specimen (specimen) 10/13/2011 10:14 AM EDT 10/13/2011 12:03 PM EDT Narrative Resulting Agency Comment Spec In Lab Marilyn Reilly MD BLOOD BANK LAB ORD ERABLES ANA FERNÁNDEZIUM * ABO/RH TYPING (10/13/2011 10:14 AM EDT) Pathologist [facility] ABORH Type A Neg ANA FERNÁNDEZIUM Blood specimen (specimen) 10/13/2011 10:14 AM EDT 10/13/2011 12:03 PM EDT Narrative Resulting Agency Comment Spec In Lab Marilyn Reilly MD BLOOD BANK LAB ORD ERABLES Performing Organization Address City/[facility]/ZIP Co de Phone Number ANA FERNÁNDEZIUM * CBC (with Diff) (10/13/2011 10:14 AM EDT) WBC 8.3 4.0 - 10.0 x10(3)/mcL [facility]ILL[facility] RBC 3.99 3.93 - 5.22 x10(6)/mcL CERNER MILLENNIUM Hemoglobin 12.5 11.2 - 15.7 gm/dL [facility] MILL[facility]NIUM Hematocrit 35.7 34.0 - 45.0 % [facility] MCV 89.5 79.0 - 94.0 fL CERNER MILLENNIUM MCH 31.3 26.6 - 32.2 pg [facility] MCHC 35.0 32.0 - 36.5 gm/dL [facility] M[facility] Platelets 157 145 - 370 x10(3)/mcL CERNER MILLENNIUM RDWSD 43.0 35.0 - 46.0 fL [facility] RDWCV 13.2 10.9 - 14.4 % CERNER MILLENNIUM MPV 9.7 9.0 - 12.0 fL ANA LILLYENNIUM Blood specimen (specimen) 10/13/2011 10:14 AM EDT 10/13/2011 10:21 AM EDT Narrative Resulting Agency Comment Spec In Lab Marilyn Reilly MD HEMATOLOGY ORDERAB LES ANA GILMAN documented in this encounter Visit Diagnoses Diagnosis Unspecified high-risk documented in this encounter Care Teams Stoneworking Sander Relationship Specialty Start Date End Date Dav Carlos MD PCP - General 10/01/10 11/30/12 documented as of this encounter
--- OUTSIDE RECORDS SUMMARY | 2023-11-10 01:12 | XMS_ITS | Encounter Summary ---
Author Organization [facility] [place] [address] Care Team Providers Care Yeast Maker Name Role Phone Dav Carlos MD Primary Care Provider [phone] Reason for Visit * Reason Comments Routine Visit Encounter Details Date Type Department Care Team (Latest Contact Info) Description 08/27/2011 11:00 AM EDT Routine Obstetrics [place] [address] Lisette Elise MD [facility] [address] OBSTETRICS [place] [address] GA: [id number] Discharge Disposition: Home Social History [...] reflux documented in this encounter Care Teams Yeast Maker Relationship Specialty Start Date End Date Dav Carlos MD PCP - General 10/01/10 11/30/12 documented as of this encounter
--- OUTSIDE RECORDS SUMMARY | 2023-11-10 01:12 | XMS_ITS | Encounter Summary ---
Author Organization [facility] Address [facility] [place] [address] Care Team Providers Care Recruitment Director Name Role Phone Dav Carlos MD Primary Care Provider [phone] Reason for Visit * Reason Comments Emesis Encounter Details Date Type Department Care Team ([facility] Contact Info) Description 09/09/2011 2:04 AM EDT - 09/09/2011 7:39 AM EDT [place] [address] Sivakumar Hopson MD [facility] [address] [place] [address] Nausea with vomiting; , excessive vomiting Discharge [...] AFTER YOUR VISIT TO THE EMERGENCY ROOM (HAITIAN) documented in this encounter Medications at Time [...] Report received from BEREKET Belcher * Esteban Mcmullen RN - 09/09/2011 3:11 AM EDT FOOD CONCESSION MANAGER here * Esteban Mcmullen RN - 09/09/2011 [...] past evening, after [facility] the patient felt sick to her [...] 1/2 mL 30 x 09/01 Syrg by [facility].(Non-Drug; Combo Route) route. Taking insulin before breakfast, [...] normal. Procedures Bedside U/S-> reassuring heart tones [facility]- N/A Diagnostics: Recent Results (from the [...] Appearance UA Hazy (*) Clear ??? Spec [place] UA 1.014 1.002 - 1.030 ??? Color [...] fluids; Zofran ODT 4 mg; Bedside U/S; Station Mechanic Apprentice consult; D5; Discharge home Wei Martin MD Resident 09/09/11 3168 ED ATTENDING NOTE: I reviewed Dr. Martin's note and agree with the lewis portions of the documented findings and plan of care. I performed an independent history and physical exam myself. I independently reviewed the labs. FHT 140's. [place] much better in the emergency Perman after [...] Appearance UA Hazy(A) Clear CERNER MILLENNIUM Spec [place] UA 1.014 1.002 - 1.030 CERNER MILLENNIUM [...] Gran % 0.20 0.00 - 0.66 % [facility] Comment: Immature granulocytes(IG's)percentage and absolute count will include metamyelocytes, myelocytes, and promyelocytes. Blood smears from CBCs yielding IG's will be scanned manually for concordance. If this scan disagrees with the automated IG or if promyelocytes are noted, a manual differential will be performed. Rebecca Gran Abs 0.03 0.00 - 0.05 x10(3)/mc L [facility] Blood specimen (specimen) 09/09/2011 4:10 AM EDT 09/09/2011 4:16 AM EDT Sivakumar Hopson MD HEMATOLOGY ORDERABLE S Performing Organization Address [facility] Co de Phone Number [facility] * (ABNORMAL) BETA HYDROXYBUTYRATE (09/09/2011 4:10 AM EDT) Pathologist [facility] Department BOHB 0.41(H) 0.00 - 0.30 mmol/L [facility] Comment: Reference range: ??0.00-0.30 mmo1/L, based on an overnight fast. ??Children may be higher. Blood specimen (specimen) 09/09/2011 4:10 AM EDT 09/09/2011 4:16 AM EDT Narrative Resulting Agency Comment Spec In Lab Sivakumar Hopson MD CHEMISTRY ORDERABLES Performing Organization Address [facility] Co de Phone Number [facility] * (ABNORMAL) Comprehensive metabolic panel (non-fasting) (09/09/2011 4:10 AM EDT) Glucose Lvl 117 60 - 199 mg/dL [facility] Comment:Diabetes: >=200 mg/d L plus symptoms [...] In Lab Sivakumar Hopson MD CHEMISTRY ORDERABLES [facility] * (ABNORMAL) CBC (with Diff) [...] Lab Sivakumar Hopson MD HEMATOLOGY ORDERABLE S NAA GILMAN documented in this encounter Visit Diagnoses [...] RN) documented in this encounter Care Teams Recruitment Director Relationship Specialty Start Date End Date Dav Carlos MD PCP - General 10/01/10 11/30/12 documented as of this encounter
--- OUTSIDE RECORDS SUMMARY | 2023-11-10 01:12 | XMS_ITS | Encounter Summary ---
Author Organization [facility]ly [facility] [place] [address] Care Team Providers Care Counseling Director Name Role Phone Dav Carlos MD Primary Care Provider [phone] Reason for Visit * Reason Comments Routine Visit Encounter Details Date Type Department Care Team ([facility] st Contact Info) Description 05/29/2011 11:30 AM EST Routine Obstetrics [place] [phone] CLINIC, Marilyn Benites MD [facility] OBSTETRICS & [place] [address] GA: [id number] Social History Tobacco Use Types [...] LAB ORD ERABLES Performing Organization Address City/[facility]/ZIP Co de Phone Number [facility] JOLENE[facility] * ABO/RH TYPING (05/29/2011 12:38 PM EST) ABORH Type A Neg CERNER MILLENNIUM Blood specimen (specimen) 05/29/2011 12:38 PM EST 05/29/2011 12:43 PM EST Marilyn Reilly MD BLOOD BANK LAB ORD ERABLES [facility] MAXXENNIUM * (ABNORMAL) RUBELLA ANTIBODY, IGG (05/29/2011 [...] MD IMMUNOLOGY ORDERAB LES Performing Organization Address [facility] de Phone Number [facility] MILLENNIUM * HEPATITIS B SURFACE ANTIGEN (05/29/2011 12:38 PM EST) HepB Surface Ag Negative Negative [facility] MILLENNIUM Blood specimen (specimen) 05/29/2011 12:38 PM EST 05/29/2011 12:40 PM EST Marilyn Reilly MD CHEMISTRY ORDERABL ES Performing Organization Address [facility] Phone Number [facility] MILLENNIUM * SYPHILIS ANTIBODY, IGG (05/29/2011 12:38 PM EST) Syphilis IgG Negative Negative [facility]ER MILLENNIUM Blood specimen (specimen) 05/29/2011 12:38 PM EST 06/01/2011 7:15 AM EST Marilyn Reilly MD IMMUNOLOGY ORDERAB LES Performing Organization Address [facility] Phone Number [facility] MILLENNIUM * (ABNORMAL) CBC (WITH DIFF) (05/29/2011 [...] Reilly MD CHEMISTRY ORDERABL Performing Organization Address [facility] Co de Phone Number [facility] * Aspartate Aminotransferase (05/29/2011 12:38 PM EST) AST 17 0 - 30 unit/L [facility] Blood specimen (specimen) 05/29/2011 12:38 PM EST 05/29/2011 12:40 PM EST Marilyn Reilly MD CHEMISTRY [facility] Performing Organization Address [facility] de Phone Number [facility] * Hemoglobin A1c (05/29/2011 12:38 PM EST) Hemoglobin A1C 5.9 4.3 - 6.1 % [facility] Est Avg Gluc 123 mg/dL [facility] Comment: eAG equivalents for HbA1c percentages: [...] into estimated average glucose values. ??Diabetes Care 2008:31(8):4815-3139. Blood specimen (specimen) 05/29/2011 12:38 PM EST 05/29/2011 12:40 PM EST Marilyn Reilly MD CHEMISTRY ORDERABL ES Performing Organization Address [facility] Phone Number [facility] * HIV (05/29/2011 12:38 PM EST) Pathologist [facility] HIV 1/2 Ab Negative [facility] Blood specimen (specimen) 05/29/2011 12:38 PM EST 05/29/2011 12:40 PM EST Marilyn Reilly MD IMMUNOLOGY ORDERAB LES Performing Organization Address [facility] Number [facility] * GC/CHLAM (05/29/2011 11:45 AM EST) Pathologist [facility] GC Gene Amp Negative Negative [facility] Comment: The only FDA approved specimen types for this assay are cervix, vagina, urethra and urine. ??The sensitivity and specificity of the assay for other specimen types has not been determined. GC Source Cervical [facility] Chlamydia Gene Amp Negative Negative [facility] Comment: The only FDA approved specimen types for this assay are cervix, vagina, urethra and urine. ??The sensitivity and specificity of the assay for other specimen types has not been determined. Chlamydia Source Cervical [facility] Specimen of unknown material (specimen) 05/29/2011 11:45 AM EST 05/29/2011 4:51 PM EST Marilyn Reilly MD MICROBIOLOGY - GEN ERAL ORDERABLES Performing Organization Address [facility] Number [facility] * Cytopathology Gynecological (05/29/2011 11:45 AM EST) AP Specimen 05/29/2011 11:4 5 AM EST 05/29/2011 12:16 PM EST Narrative ANA GILMAN - 05/29/2011 12:16 PM EST Specimen [...] uncontrolled documented in this encounter Care Teams Counseling Director Relationship Specialty Start Date End Date Dav Carlos MD PCP - General 10/01/10 11/30/12 documented as of this encounter
--- OUTSIDE RECORDS SUMMARY | 2023-11-10 01:12 | XMS_ITS | Encounter Summary ---
Author Organization [facility] Address [address] [place] [address] Care Team Providers Care Orthodontic Technician Name Role Phone Unknown, Provider Primary Care Provider [phone] Trice Holman Primary Care Provider [phone] Encounter Details Date Type Department Care Team (Late st Contact Info) Description 09/12/2022 Lab Requisition [facility] Pathology & Laboratory Medicine - [facility] [address] [place] [address] Outr Resulting Lab, Provider Social History Tobacco [...] 4th Generation Negative Negative 09/14/2022 9:52 EDT [facility] Comment:If acute HIV-1 infec tion is suspected in a high risk patient, submit plasma specimen for HIV-1 RNA quantitation test. Blood VENOUS BLOOD / Unknown 09/11/2022 12:04 EDT 09/12/2022 21:23 EDT Narrative [facility] - 09/14/2022 9:52 EDT Fourth Generation assay performed on the Siemens Centaur XPT. Provider Outr Resulting Lab IMMUNOLOGY A ND SEROLOGY ORDERABLES [facility] [address] [place] [address] documented in this encounter Visit Diagnoses Not on filedocumented in this encounter Care Teams Orthodontic Technician Relationship Specialty Start Date End Date Unknown, Provider, PCP - General 02/20/15 01/16/23 Trice Holman FNP [facility] [address] PCP - General 01/17/23 documented as of this encounter
--- OUTSIDE RECORDS SUMMARY | 2023-11-10 01:12 | XMS_ITS | Encounter Summary ---
Author Organization [facility] Address [address] [place] [address] Care Team Providers Care White Goods Appliance Tech Name Role Phone Unavailable Primary Care Provider Unavailabl e Encounter Details Date Type Department Care Team (Late st Contact Info) Description 02/18/2005 Results Only [facility] - Maple conversion [address] [place] [address] Benedict Corona MD [address] [place] [address] Social History Tobacco Use Types [...] ? MIGDALIA MONCADA ? Accession #: ? [id number] ? : ? 1980 (Age: 24) ??F [...] wall measures 0.2 cm in maximum thickness. Fern Gatherer sections are submitted as follows: BLOCK DE LA ROSA A1 ?Cystic duct node bisected A2 ?Fern Gatherer sections of cystic duct surgical margin, body and fundus (Dr. Acevedo)/[facility] End of Report [facility] 02/18/2005 02/18/2005 15: 17 EST Benedict Corona MD PATHOLOGY ORDERABLES [facility] [address] [place] [address] documented in this encounter Visit Diagnoses Not on filedocumented in this encounter
--- OUTSIDE RECORDS SUMMARY | 2023-11-10 01:12 | XMS_ITS | Encounter Summary ---
Author Organization [facility] [place] [address] Care Team Providers Care Craniologist Name Role Phone Dav Carlos MD Primary Care Provider [phone] Encounter Details Date Type Department Care Team (Latest Contact Info) Description 08/11/2011 9:25 AM EDT - 08/11/2011 11:59 PM EDT Hospital Encounter Ultrasound at [facility] [place] [address] Unspecified high-risk Social History Tobacco Use Types [...] 08/11/2011 11:09 am) Patient Info ID: ? [id number] ? : ??[birth year] (31 yrs) Name: ? MIGDALIA MOREIRA ? Visit Date: 08/11/2011 10:21 am Performed By Performed By: ?Caryl Yepez [facility] Associate: ? Perri PENALOZA, Elvia Turner Attending: ? Arik PENALOZA, E ??Valerie Referred By: ? PHUONG SANTIAGO MD Service(s) Provided UOBS - Screening Morphology - [id number] ? [id number] UOBTV - Viability - Cervical Length - Transvaginal - ??[id number] Indications Screening Morphology Evaluation Num Of Fetuses: [...] Final 08/11/2011 11:09 am) Patient Info ID: [id number] : [birth year] (31 yrs) Name: MIGDALIA MOREIRA Visit Date: 08/11/2011 10:21 am Performed By Performed By: Caryl Yepez [facility] Associate: Elvia Rayo MD Attending: Lisette Elise MD Referred By: PHUONG SANTIAGO MD Service(s) Provided UOBS - Screening Morphology - [id number] UOBTV - Viability - Cervical Length - Transvaginal - [id number] Indications Screening Morphology Evaluation Num Of Fetuses: [...] high-risk documented in this encounter Care Teams Craniologist Relationship Specialty Start Date End Date Dav Carlos MD PCP - General 10/01/10 11/30/12 documented as of this encounter
--- OUTSIDE RECORDS SUMMARY | 2023-11-10 01:12 | XMS_ITS | Encounter Summary ---
Author Organization [facility] [place] [address] Care Team Providers Care Enterprise Applications Manager Name Role Phone Henri Gonzalez DO Primary Care Provider [phone] Encounter Details Date Type Department Care Team (Late st Contact Info) Description 03/29/2010 2:38 AM EST - 03/29/2010 3:43 AM EST Emergency [place] [address] Sivakumar Hopson MD [facility] [place] [address] Discharge Disposition: Home Social History Tobacco Use [...] fluticasone (FLONASE) 50 mcg/Actuation nasal spray 2 [place](s), Nasal, Once daily 03/29/2010 12/01/2010 metFORMIN (GLUCOPHAGE) 500 mg tablet 500 MG = 1 Tablet(s), PO, Twice daily 03/17/2010 05/29/2011 omeprazole (PRILOSEC) 40 mg capsule 20 MG = 1 Capsule(s) PO Once daily 03/17/2010 09/29/2011 documented as of this encounter Plan of Treatment Not on file documented as of this encounter Visit Diagnoses Not on filedocumented in this encounter Care Teams Enterprise Applications Manager Relationship Specialty Start Date End Date Henri Gonzalez DO [address] [place] [address] PCP - General 03/11/10 09/30/10 documented as of this encounter
--- OUTSIDE RECORDS SUMMARY | 2023-11-10 01:12 | XMS_ITS | Encounter Summary ---
Author Organization [facility] Address [address] [place] [address] Care Team Providers Care Repairer Engine Production Name Role Phone Unavailable Primary Care Provider Unavailabl e Encounter Details Date Type Department Care Team (Late st Contact Info) Description 05/28/2005 Results Only [facility] - Maple conversion [address] [place] [address] Neda Barger, [facility] [address] [place] [phone] Social History Tobacco Use Types Packs/Day [...] cancers. [facility] Report Status Final [id number] [facility] 05/28/2005 11:5 8 EST 06/08/2005 9:07 EST Neda Barger CONTROLLER MECHANIC MICROBIOLOGY - GENER AL ORDERABLES [facility] [address] [place] [address] * CYTOPATHOLOGY (05/28/2005 0:00 EST) Pathology Report: CYTOPATHOLOGY REPORT Reports generated via electronic interface contain original data; however they are lacking the format of the original report. Caution should be taken when reading/interpreti ng unformatted reports. Name: ? MIGDALIA MONCADA ? Accession #: ? [id number] : ? 1980 (Age: 25) ??F ?Collect Date: ? 05/28/2005 Location: ? [facility] ? Receive Date: ? 05/29/2005 Provider: ?NEDA BARGER CONTROLLER MECHANIC Copy to: ? Specimen/Source: ?ThinPrep Pap Test, Cervix/Endocervix, processed on [employer] ThinPrep Imaging System, with manual evaluation Last Menstrual Period: ? 05/05/05 Other: ? HPVA - HPV testing requested if ASC-US on the current ThinPrep Pap test. ? SPECIMEN ADEQUACY ? Satisfactory for Evaluation - transformation zone component present GENERAL CATEGORIZATION ? Epithelial Cell Abnormality INTERPRETATION ? Squamous Cell Abnormality - Atypical squamous cells, undetermined significance. EDUCATIONAL NOTES/RECOMMENDATI ONS ? [facility] recommends following the 2001 Consensus Guidelines for the Management of Women with Cervical Cytological Abnormalities (PATRICA,2002;287:212 0-9). Management algorithms have been distributed by [facility] and are available online at www.ASCCP.org. ? Document reviewed and electronically signed by: ? MAIA OVALLE MD ? Report Date: ??06/06/2005 15:30 End of Report [facility] 05/28/2005 05/29/2005 Neda Barger CONTROLLER MECHANIC PATHOLOGY ORDERABLES [facility] [address] [place] [address] documented in this encounter Visit Diagnoses Not on filedocumented in this encounter
--- OUTSIDE RECORDS SUMMARY | 2023-11-10 01:12 | XMS_ITS | Clinical Summary ---
Author Organization [facility] Address [address] [place] [address] Care Team Providers Care Business Solution Analyst Name Role Phone Trice Holman MAYELA Primary Care Provider [phone] Social History Tobacco Use Types Packs/Day Years [...] C Antibody Negative Negative 09/14/2022 10:09 EDT [facility] Blood VENOUS BLOOD / Unknown 09/11/2022 12:04 EDT 09/12/2022 21:24 EDT Provider Outr Resulting Lab CHEMISTRY & BLOOD GAS ORDERABLES [facility] [address] [place] [address] from Last 3 Months or Most Recently Relevant to Health Maintenance Care Teams Business Solution Analyst Relationship Specialty Start Date End Date Trice Holman [place] [address] [place] [address] PCP - General 01/17/23
--- OUTSIDE RECORDS SUMMARY | 2023-11-10 01:12 | XMS_ITS | Encounter Summary ---
Author Organization [facility] [address] Care Team Providers Care Turkey Cleaner Name Role Phone Galina Hook MD Primary Care Provider [phone] Reason for Visit * Reason Comments Obstructive Sleep Apnea Encounter Details Date Type Department Care Team ([facility] Contact Info) Description 12/01/2010 1:40 PM EDT [place] [address] Rudolph Bustamante MD [facility] [place] [address] CADY (obstructive sleep apnea) (Primary Dx) Social [...] Yes Headaches upon awakening: Yes Daytime Symptoms: [place] Sleepiness Score: 14/24 Upon Awakening: Unrefreshed Daytime [...] 30 y.o. 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 4. Follow up will be arranged after reviewing the sleep study results. documented in this encounter Plan of Treatment Not on file documented as of this encounter Visit Diagnoses Diagnosis CADY (obstructive sleep apnea)- Primary Obstructive sleep apnea (adult) (pediatric) documented in this encounter Care Teams Turkey Cleaner Relationship Specialty Start Date End Date Galina Hook MD PCP - General 10/01/10 11/30/12 documented as of this encounter
--- OUTSIDE RECORDS SUMMARY | 2023-11-10 01:12 | XMS_ITS | Encounter Summary ---
Author Organization [facility] Address [address] [place] [address] Care Team Providers Care Precision Crop Manager Name Role Phone Trice Holman Primary Care Provider [phone] Encounter Details Date Type Department Care Team (Late st Contact Info) Description 01/30/2023 Lab Requisition [facility] Pathology & Laboratory Medicine - [address] [address] Jennie Villegas MD [address] [place] [phone] Encounter for other general examination Social History [...] management options, if applicable. 02/03/2023 9:13 EDT [facility] Final Diagnosis A. CERVIX, BRUSH: -Low-grade squamous intra-epithelial lesion (VERONICA 1). See comment. 02/03/2023 9:13 [facility] Diagnosis Comment Immunoperoxidase stains were performed on this case to further characterize the lesion. ANTIBODY(CLONE)(BL OCK):RESULT P16 (E6H4TM, Burgin) (A1): Negative NOTE: One or more of [...] performance characteristics have been determined by [facility] and/or by the referring laboratory. The [...] high complexity clinical laboratory testing. 02/03/2023 9:13 [facility] Attestation By the signature below, the attending physician certifies that they have 1) personally conducted a gross and/or microscopic examination of the described specimen(s), and/or personally interpreted the results of laboratory testing of the described specimen(s), and 2) personally rendered or confirmed the above diagnosis. 02/03/2023 9:13 [facility] at 0913 Clinical History +HR HPV 02/03/2023 9:13 [facility] Gross Description A. Received in formalin, on a Histologic S-100 brush, labelled with proper patient identification (initials C, M) and cervical is a 0.4 x 0.2 x 0.2 cm aggregate of corona tissue. The specimen is entirely submitted in A1. ABEL DIAZ(ASCP) 02/01/2023 8:59 02/03/2023 9:13 [facility] Performing Lab [facility] 9:13 [facility] Scanned Images 02/03/2023 9:13 EDT [facility] Tissue CERVIX UTERI STRUCTURE / Unknown 01/29/2023 11:10 EDT 01/30/2023 8:09 EDT Jennie Villegas MD PATHOLOGY ORDERABLES [facility] [address] [place] [address] documented in this encounter Visit Diagnoses Diagnosis Encounter for other general examination documented in this encounter Care Teams Precision Crop Manager Relationship Specialty Start Date End Date Trice [place] [address] PCP - General 01/17/23 documented as of this encounter
--- OUTSIDE RECORDS SUMMARY | 2023-11-10 01:12 | XMS_ITS | Encounter Summary ---
Author Organization [facility] [place] [address] Care Team Providers Care Certified Credit Counselor Name Role Phone Dav Carlos MD Primary Care Provider [phone] Encounter Details Date Type Department Care Team (Latest Contact Info) Description 08/11/2011 9:30 AM EDT Routine Obstetrics [place] [phone] CLINIC, Lisette Aviles MD [facility] OBSTETRICS [place] [address] GA: 19w1d Discharge Disposition: Home Social History [...] applicable documented in this encounter Care Teams Certified Credit Counselor Relationship Specialty Start Date End Date Dav Carlos MD PCP - General 10/01/10 11/30/12 documented as of this encounter
--- OUTSIDE RECORDS SUMMARY | 2023-11-10 01:12 | XMS_ITS | Encounter Summary ---
Author Organization [facility] Address [address] [place] [address] Care Team Providers Care Railcar Foreman Name Role Phone Unknown, Provider Primary Care Provider [phone] Trice Holman Primary Care Provider [phone] Encounter Details Date Type Department Care Team (Late st Contact Info) Description 09/12/2022 Lab Requisition [facility] Pathology & Laboratory Medicine - [facility] [address] [place] [address] Outr Resulting Lab, Provider Social History Tobacco [...] Syphilis Serology Negative Negative 09/14/2022 10:09 EDT [facility] Blood VENOUS BLOOD / Unknown 09/11/2022 12:04 EDT 09/12/2022 21:24 EDT Provider Outr Resulting Lab IMMUNOLOGY A ND SEROLOGY ORDERABLES Performing Organization Address City/[facility]/ZIP Co de Phone Number [facility] [address] [place] [address] * HEPATITIS C AB W REFLEX TO HCV RNA BY PCR (09/11/2022 12:04 EDT) Hep C Antibody Negative Negative 09/14/2022 10:09 EDT [facility] Blood VENOUS BLOOD / Unknown 09/11/2022 12:04 EDT 09/12/2022 21:24 EDT Provider Outr Resulting Lab CHEMISTRY & BLOOD GAS ORDERABLES Performing Organization Address City/[facility] Co de Phone Number [facility] [address] [place] [address] documented in this encounter Visit Diagnoses Not on filedocumented in this encounter Care Teams Railcar Foreman Relationship Specialty Start Date End Date Unknown, Provider, PCP - General 02/20/15 01/16/23 [place] [address] PCP - General 01/17/23 documented as of this encounter
--- OUTSIDE RECORDS SUMMARY | 2023-11-10 01:12 | XMS_ITS | Encounter Summary ---
Author Organization [facility] [place] [address] Care Team Providers Care Careers Adviser Name Role Phone Dav Carlos MD Primary Care Provider [phone] Reason for Visit * Reason Comments Routine Visit Encounter Details Date Type Department Care Team (Latest Contact Info) Description 06/16/2011 11:15 AM EST Routine Obstetrics [place] [address] Amina Mock MD [facility] DR OBSTETRICS & [place] [address] GA: 11w1d Discharge Disposition: Home Social History [...] antepartum documented in this encounter Care Teams Careers Adviser Relationship Specialty Start Date End Date Dav Carlos MD PCP - General 10/01/10 11/30/12 documented as of this encounter
--- OUTSIDE RECORDS SUMMARY | 2023-11-10 01:12 | XMS_ITS | Encounter Summary ---
Author Organization [facility] [place] [address] Care Team Providers Care Bag Bailer Name Role Phone Enoch Medina MD Primary Care Provider [phone] Encounter Details Date Type Department Care Team (Late st Contact Info) Description 03/03/2010 Orders Only Lab [facility] [place] [phone] Alina Krishna MD OBSTETRICS & GYNECOLOGY Social [...] 4:11 PM EST) Surgical Pathology Report [id number] ? Location: 5L The signing pathologist has [...] on filedocumented in this encounter Care Teams Bag Bailer Relationship Specialty Start Date End Date Enoch Medina MD [facility] [address] [facility] [place] [address] PCP - General Family Medicine 08/22/20 06/03/21 documented as of this encounter
--- OUTSIDE RECORDS SUMMARY | 2023-11-10 01:12 | XMS_ITS | Encounter Summary ---
Author Organization [facility] [place] [address] Care Team Providers Care Liquor Stores And Agencies Supervisor Name Role Phone Dav Carlos MD Primary Care Provider Encounter Details Date Type Department Care Team (Late st Contact Info) Description 07/02/2010 Abstract Obstetrics [place] [address] Alina Krishna MD [facility] DR OBSTETRICS [place] [address] Social History Tobacco Use Types Packs/Day Years [...] on filedocumented in this encounter Care Teams Liquor Stores And Agencies Supervisor Relationship Specialty Start Date End Date Dav Carlos MD PCP - General 10/01/10 11/30/12 documented as of this encounter
--- OUTSIDE RECORDS SUMMARY | 2023-11-10 01:12 | XMS_ITS | Encounter Summary ---
Author Organization [facility] [place] [address] Care Team Providers Care Museum Exhibit Technician Name Role Phone Henri Gonzalez DO Primary Care Provider [phone] Encounter Details Date Type Department Care Team (Late st Contact Info) Description 03/03/2010 [place] [phone] Chaz Suarez MD [facility] DR OBSTETRICS [place] [address] Social History Tobacco Use Types Packs/Day Years Used Date Smoking Tobacco: Never Assessed Sex and Gender Information Value Date Recorded Sex Assigned at Not on file Gender Identity Female 12/01/2018 2:55 PM EDT Sexual Orientation Not on file documented as of this encounter Plan of Treatment Not on file documented as of this encounter Procedures Procedure Name Priority Date/Time Associated Diagnosis Comments CADDY PACKER CYTOLOGY FINAL REPORT Routine 03/03/2010 4:35 PM EST SURGICAL PATHOLOGY REPORT Routine 03/03/2010 4:11 PM EST documented in this encounter Results * PATHOLOGY CADDY PACKER CYTOLOGY FINAL REPORT (03/03/2010 4:35 PM EST) Sane Nurse Cytology Final Report ? [facility] ? Provider: ?? CHAZ SUAREZ ?Pt. Name: ?? MIGDALIA MOREIRA ? Acc #: ?[id number] ?Pt. ? Col Date: ?? 03/03/2010 ?/Sex: ?1980,(29 ? years),Female ? Rec Date: ?? 03/03/2010 ?LOC: ?5L ? CYTOPATHOLOGY: ??CADDY PACKER ? ---Adequacy--- ? Specimen submitted is satisfactory. ? Endocervical component present. ? ---Cytopathologic Diagnosis--- ?NORMAL ? Negative for Intraepithelial Lesion or Malignancy (NILM). ? 03/05/10 ?? Screened by: ??SLA ? 03/05/10 ?? Verified by: ??ANGELES Camargo(ASCP), Della Urrutia - ? Conveyor System Operator ? ---Clinical Information--- ? Specimen Source: [...] ??For further ? information please contact the [facility] Laboratory. ? Reference: ??Amanda BLACK. ??Research Associate Molecular Biology of Pap Smear Results. ??In: ? Barbara BS, [facility], ed. ??The Pap Smear. ??[place]: ??Mendoza, 2002: ? 71-77. ANA GILMAN 03/03/2010 4:35 PM EST Chaz Suarez MD PATHOLOGY/CYTOLOGY O RDERABLES ANA GILMAN * PATHOLOGY SURGICAL PATHOLOGY FINAL REPORT (03/03/2010 4:11 PM EST) Surgical Pathology Report ? [facility] ? Provider: ?? CHAZ SUAREZ ?Pt. Name: ?? MIGDALIA MOREIRA ? Acc #: ?[id number] ?Pt. ? Col Date: ?? 03/03/2010 ?/Sex: [...] on filedocumented in this encounter Care Teams Museum Exhibit Technician Relationship Specialty Start Date End Date Henri Gonzalez DO [address] [place] [address] PCP - General 03/11/10 09/30/10 documented as of this encounter
--- OUTSIDE RECORDS SUMMARY | 2023-11-10 01:12 | XMS_ITS | Encounter Summary ---
Author Organization [facility] [place] [address] Care Team Providers Care Dustless Operator Name Role Phone Dav Carlos MD Primary Care Provider [phone] Encounter Details Date Type Department Care Team (Latest Contact Info) Description 05/29/2011 10:30 AM EST - 05/29/2011 11:59 PM [facility] Hospital Encounter Ultrasound at [facility] [place] [phone] High-risk supervision Social History Tobacco Use Types [...] 05/29/2011 11:02 am) Patient Info ID: ? [id number] ? : ??[birth year] (31 yrs) Name: ? MIGDALIA MOREIRA ? Visit Date: 05/29/2011 10:56 am Performed By Performed By: ?Caryl Yepez RDMS Attending: ? Arik PENALOZA, E ??Valerie Referred By: ? AMINA MOCK MD Service(s) Provided UOBTV - Viability - Cervical Length - Transvaginal - ??[id number] Indications Viability, transvaginal Evaluation Num Of Fetuses: [...] Final 05/29/2011 11:02 am) Patient Info ID: [id number] : [birth year] (31 yrs) Name: MIGDALIA MOREIRA Visit Date: 05/29/2011 10:56 am Performed By Performed By: Caryl Yepez [facility] Attending: Lisette Elise MD Referred By: AMINA MOCK MD Service(s) Provided UOBTV - Viability - Cervical Length - Transvaginal - [id number] Indications Viability, transvaginal Evaluation Num Of Fetuses: [...] high-risk documented in this encounter Care Teams Dustless Operator Relationship Specialty Start Date End Date Dav Carlos MD PCP - General 10/01/10 11/30/12 documented as of this encounter
--- OUTSIDE RECORDS SUMMARY | 2023-11-10 01:12 | XMS_ITS | Encounter Summary ---
Author Organization [facility]onica [facility] [place] [address] Care Team Providers Care Clinical Assistant Name Role Phone Dav Carlos MD Primary Care Provider [phone] Reason for Visit * Reason Comments Hypersomnia Obstructive Sleep Apnea Encounter Details Date Type Department Care Team ([facility] st Contact Info) Description 12/11/2010 8:30 AM EDT Follow[place] [address] Marleen Taylor MD [facility] [place] [address] CADY (obstructive sleep apnea) (Primary Dx) Social [...] 30 y.o. 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
--- OUTSIDE RECORDS SUMMARY | 2023-11-10 01:12 | XMS_ITS | Encounter Summary ---
Author Organization [facility] [place] [address] Care Team Providers Care Commutator Inspector Name Role Phone Dav Carlos MD Primary Care Provider [phone] Reason for Visit * Reason Comments Routine Visit Encounter Details Date Type Department Care Team ([facility] st Contact Info) Description 07/02/2011 8:45 AM EDT Routine Obstetrics [place] [address] Marilyn Reilly MD [facility] DR OBSTETRICS & [place] [address] GA: 13w3d Discharge Disposition: Home Social History [...] encounter Miscellaneous Notes * Miscellaneous - Bradley, Student Services Counselor - 07/06/2011 11:55 AM EDT documented in [...] HARISH NEGRON L ?(Age): 1980(31) Med Rec#: ?[id number] ? Sex: ?F ? Site Loc: ?[facility] ? Ht / Wt: ??(cm)/(kg) ? Pt. Loc: ? Echo Lab ? BSA: ? Study Date: ?08/27/2011 ? Pt. Type: Outpatient Study Quality: ?Tape: ? Referring: Grover Elise Dialysis Nurse: Yosef Frankel Diagnosis:CPT Code(s): ?? Echo Full (97587), ?? Doppler Full (49784), ??Color Doppler (84696), Indication(s): ??Maternal diabetes Rhythm: SUMMARY: 1. A [...] 08/28/2011 07:53:22 Images reviewed and interpretation verified [facility] Cardiac Ultrasound Laboratory Procedure Note Percy Morales MD - 08/28/2011 Procedure: Pediatric Echocardiogram Patient: HARISH Xiao (Age): 1980(31) Med Rec#: [id number] Sex: F Site Loc: [facility] Ht / Wt: (cm)/(kg) Pt. Loc: Echo Lab BSA: Study Date: 08/27/2011 Pt. Type: Outpatient Study Quality: Tape: Referring: Grover Elise Dialysis Nurse: Yosef Frankel Diagnosis:CPT Code(s): Echo Full (80376), Doppler Full (51621), Color Doppler (37433), Indication(s): Maternal diabetes Rhythm: SUMMARY: 1. A [...] 08/28/2011 07:53:22 Images reviewed and interpretation verified [facility] Cardiac Ultrasound Laboratory Marilyn Reilly MD ECHO ORDERABLES documented in this encounter Visit Diagnoses Diagnosis Unspecified high-risk - Primary Diabetes mellitus Type II or unspecified type diabetes mellitus without mention of complication, not stated as uncontrolled Unspecified high-risk documented in this encounter Care Teams Commutator Inspector Relationship Specialty Start Date End Date Dav Carlos MD PCP - General 10/01/10 11/30/12 documented as of this encounter
--- OUTSIDE RECORDS SUMMARY | 2023-11-10 01:12 | XMS_ITS | Encounter Summary ---
Author Organization [facility] [place] [address] Care Team Providers Care Hoop Flaring Machine Operator Name Role Phone Dav Carlos MD Primary Care Provider [phone] Encounter Details Date Type Department Care Team (Late st Contact Info) Description 08/29/2011 Orders Only Obstetrics [place] [address] Marilyn Reilly MD [facility] DR OBSTETRICS [place] [address] Diabetes in Social History Tobacco Use Types [...] ? HARISH Xiao ?(Age): 1980(31) Med Rec#: ?[id number] ? Sex: ?F ? Site Loc: ?[facility] ? Ht / Wt: ??(cm)/(kg) ? Pt. Loc: ? Echo Lab ? BSA: ? Study Date: ?10/06/2011 ? Pt. Type: Outpatient Study Quality: ?Tape: ? Referring: Marilyn Reilly Driver Salesman: Yosef Frankel Diagnosis:CPT Code(s): ??Doppler LTD (49422), ?? Echo F/U (65035), Color Doppler (88725), Indication(s): ??Maternal diabetes Rhythm: SUMMARY: 1. A [...] 10/06/2011 13:02:08 Images reviewed and interpretation verified [facility] Cardiac Ultrasound Laboratory Procedure Note Percy Morales MD - 10/06/2011 Procedure: Pediatric Echocardiogram Patient: HARISH Xiao DOB(Age): 1980(31) Med Rec#: [id number] Sex: F Site Loc: [facility] Ht / Wt: (cm)/(kg) Pt. Loc: Echo Lab BSA: Study Date: 10/06/2011 Pt. Type: Outpatient Study Quality: Tape: Referring: Marilyn Reilly Driver Salesman: Yosef Frankel Diagnosis:CPT Code(s): Doppler LTD (84118), Echo F/U (41055), Color Doppler (42705), Indication(s): Maternal diabetes Rhythm: SUMMARY: 1. A [...] 10/06/2011 13:02:08 Images reviewed and interpretation verified [facility] Cardiac Ultrasound Laboratory Marilyn Reilly MD ECHO ORDERABLES documented in this encounter Visit Diagnoses Diagnosis Diabetes in Diabetes mellitus of mother, complicating , childbirth, or the puerperium, unspecified as to episode of care Diabetes in Diabetes mellitus of mother, complicating , childbirth, or the puerperium, unspecified as to episode of care documented in this encounter Care Teams Hoop Flaring Machine Operator Relationship Specialty Start Date End Date Dav Carlos MD PCP - General 10/01/10 11/30/12 documented as of this encounter
--- OUTSIDE RECORDS SUMMARY | 2023-11-10 01:12 | XMS_ITS | Encounter Summary ---
Author Organization [facility] [place] [address] Care Team Providers Care Longwall Machine Operator Helper Name Role Phone Dav Carlos MD Primary Care Provider [phone] Encounter Details Date Type Department Care Team (Latest Contact Info) Description 10/13/2011 11:00 AM EDT Routine Obstetrics [place] [phone] CLINIC, Lisette Aviles MD [facility] OBSTETRICS & [place] [address] GA: 28w1d Discharge Disposition: Home Social History [...] (10/13/2011 12:00 AM EDT) Dispensed? Yes [facility] Blood specimen (specimen) 10/13/2011 10/13/2011 11:47 AM EDT Narrative Resulting Agency Comment Spec In Lab Lisette Elise MD BLOOD BANK PRODUC T ORDERABLES ANA GILMAN documented in this encounter Visit Diagnoses Diagnosis High-risk supervision- Primary Unspecified high-risk documented in this encounter Care Teams Longwall Machine Operator Helper Relationship Specialty Start Date End Date Dav Carlos MD PCP - General 10/01/10 11/30/12 documented as of this encounter
--- OUTSIDE RECORDS SUMMARY | 2023-11-10 01:12 | XMS_ITS | Encounter Summary ---
Author Organization [facility] [place] [address] Care Team Providers Care Director Project Management Name Role Phone Unavailable Primary Care Provider Unavailabl e Encounter Details Date Type Department Care Team ([facility] st Contact Info) Description 03/03/2010 11:30 AM EST Follow-Up Obstetrics [place] [address] Alina Krishna MD [facility] DR OBSTETRICS [place] [address] Social History Tobacco Use Types Packs/Day Years [...]
--- OUTSIDE RECORDS SUMMARY | 2023-11-10 01:12 | XMS_ITS | Encounter Summary ---
Author Organization [facility] Address [facility] [place] [address] Care Team Providers Care Residential Door Unit Installer Name Role Phone Dav Carlos MD Primary Care Provider [phone] Encounter Details Date Type Department Care Team (Latest Contact Info) Description 08/27/2011 10:07 AM EDT - 08/27/2011 11:59 PM EDT Hospital Encounter Non-In[place] [phone] CARDIO, ECHO SIXTY MIN APPT None Lisette Elise MD [facility] OBSTETRICS [place] [address] Unspecified high-risk Discharge Disposition: Home Social History [...] ? HARISH Xiao ?(Age): 1980(31) Med Rec#: ?[id number] ? Sex: ?F ? Site Loc: ?[facility] ? Ht / Wt: ??(cm)/(kg) ? Pt. Loc: ? Echo Lab ? BSA: ? Study Date: ?08/27/2011 ? Pt. Type: Outpatient Study Quality: ?Tape: ? Referring: Grover Elise Taker Off Braker Machine: Yosef Frankel Diagnosis:CPT Code(s): ?? Echo Full (14073), ?? Doppler Full (28772), ??Color Doppler (52939), Indication(s): ??Maternal diabetes Rhythm: SUMMARY: 1. A [...] 08/28/2011 07:53:22 Images reviewed and interpretation verified [facility] Cardiac Ultrasound Laboratory Procedure Note Percy Morales MD - 08/28/2011 Procedure: Pediatric Echocardiogram Patient: HARISH Xiao (Age): 1980(31) Med Rec#: [id number] Sex: F Site Loc: [facility] Ht / Wt: (cm)/(kg) Pt. Loc: Echo Lab BSA: Study Date: 08/27/2011 Pt. Type: Outpatient Study Quality: Tape: Referring: Grover Elise Taker Off Braker Machine: Yosef Frankel Diagnosis:CPT Code(s): Echo Full (14988), Doppler Full (16455), Color Doppler (54131), Indication(s): Maternal diabetes Rhythm: SUMMARY: 1. A [...] 08/28/2011 07:53:22 Images reviewed and interpretation verified [facility] Cardiac Ultrasound Laboratory Marilyn Reilly MD ECHO ORDERABLES documented in this encounter Visit Diagnoses Diagnosis Unspecified high-risk documented in this encounter Care Teams Residential Door Unit Installer Relationship Specialty Start Date End Date Dav Carlos MD PCP - General 10/01/10 11/30/12 documented as of this encounter
--- OUTSIDE RECORDS SUMMARY | 2023-11-10 01:12 | XMS_ITS | Encounter Summary ---
Author Organization Formerly [facility] Address [facility] [place] [address] Care Team Providers Care Cylinder Valve Repairer Name Role Phone Dav Carlos MD Primary Care Provider [phone] Encounter Details Date Type Department Care Team (Latest Contact Info) Description 10/06/2011 11:50 AM EDT - 10/06/2011 11:59 PM EDT Hospital Encounter [place] [id number] CARDIO, ECHO SIXTY MIN APPT None Lisette Elise MD [facility] OBSTETRICS & [place] [address] Diabetes in Discharge Disposition: Home Social History [...] ? HARISH Xiao ?(Age): 1980(31) Med Rec#: ?[id number] ? Sex: ?F ? Site Loc: [facility] ? Ht / Wt: ??(cm)/(kg) ? Pt. Loc: ? Echo Lab ? BSA: ? Study Date: ?10/06/2011 ? Pt. Type: Outpatient Study Quality: ?Tape: ? Referring: Marilyn Reilly Patient Centered Care Specialist: Yosef Frankel Diagnosis:CPT Code(s): ??Doppler LTD (35683), ?? Echo F/U (13022), Color Doppler (56239), Indication(s): ??Maternal diabetes Rhythm: SUMMARY: 1. A [...] 13:02:08 Images reviewed and interpretation verified [facility] Cardiac Ultrasound Laboratory Procedure Note Percy Morales MD - 10/06/2011 Procedure: Pediatric Echocardiogram Patient: HARISH Xiao (Age): 1980(31) Med Rec#: [id number] Sex: F Site Loc: [facility] Ht / Wt: (cm)/(kg) Pt. Loc: Echo Lab BSA: Study Date: 10/06/2011 Pt. Type: Outpatient Study Quality: Tape: Referring: Marilyn Reilly Patient Centered Care Specialist: Yosef Frankel Diagnosis:CPT Code(s): Doppler LTD (42572), Echo F/U (45805), Color Doppler (92414), Indication(s): Maternal diabetes Rhythm: SUMMARY: 1. A [...] 13:02:08 Images reviewed and interpretation verified [facility] Cardiac Ultrasound Laboratory Marilyn Reilly MD ECHO ORDERABLES documented in this encounter Visit Diagnoses Diagnosis Diabetes in Diabetes mellitus of mother, complicating , childbirth, or the puerperium, unspecified as to episode of care documented in this encounter Care Teams Cylinder Valve Repairer Relationship Specialty Start Date End Date Dav Carlos MD PCP - General 10/01/10 11/30/12 documented as of this encounter
--- OUTSIDE RECORDS SUMMARY | 2023-11-10 01:12 | XMS_ITS | Encounter Summary ---
Author Organization [facility] [place] [address] Care Team Providers Care Bolt Header Name Role Phone Galina Hook MD Primary Care Provider [phone] Reason for Visit * Reason Comments Obstructive Sleep Apnea Encounter Details Date Type Department Care Team ([facility] Contact Info) Description 12/17/2010 8:00 PM EDT Procedure [place] [address] Rudolph Bustamante MD [facility] [place] [place] [address] CADY (obstructive sleep apnea) (Primary Dx) Social [...] Study Date: 12/17/2010 Sex: Female Subject Code: [id number] Date of : 1980 Referring Physician: Galina [...] (pediatric) documented in this encounter Care Teams Bolt Header Relationship Specialty Start Date End Date Galina Hook MD PCP - General 10/01/10 11/30/12 documented as of this encounter
--- OUTSIDE RECORDS SUMMARY | 2023-11-10 01:12 | XMS_ITS | Encounter Summary ---
Author Organization [facility] [place] [address] Care Team Providers Care Adaptive Physical Education Specialist Name Role Phone Dav Carlos MD Primary Care Provider [phone] Reason for Visit * Reason Onset Date Comments Ultrasound 06/01/2011 Encounter Details Date Type Department Care Team (Latest Contact Info) Description 05/29/2011 11:00 AM EST Initial consult Obstetrics [place] [address] Lisette Elise MD [facility] DR OBSTETRICS [place] [address] Unspecified high-risk (Primary Dx) Discharge Disposition: Home [...] Procedure Name Priority Date/Time Associated Diagnosis Comments UMBRELLA CUTTER CYTOLOGY FINAL REPORT Routine 05/29/2011 3:57 PM EST documented in this encounter Results * UMBRELLA CUTTER CYTOLOGY FINAL REPORT (05/29/2011 3:57 PM EST) Vegetable I Farmworker Cytology Final Report ? [facility] ? Provider: ?? MARILYN HOUSE Pt. Name: ?? MIGDALIA MOREIRA ? Acc #: ?[id number] ?Pt. ? Col Date: ?? 05/29/2011 ? /Sex: ?1980,(31 ? years),Female ? Rec Date: ?? 05/29/2011 ? LOC: ?5L ? CYTOPATHOLOGY: ??UMBRELLA CUTTER ? ---Adequacy--- ? Specimen submitted is satisfactory. ? Endocervical component present. ? ---Cytopathologic Diagnosis--- ? NORMAL ? Negative for Intraepithelial Lesion or Malignancy (NILM). ? 06/02/11 ?? Screened by: ??LMY ? 06/02/11 ?? Verified by: ??Satya REYNOSO(ASCP), Julia Zuniga - Green Plumber ? ---Clinical Information--- ? HPV Option: ? Reflex HPV ? Preparation: ?Liquid Based Pap ? Specimen Source: ?Cervical Endocervical LBP ? LMP: ?dec 3 ? Hormones?: ?No ? Hysterectomy?: ?No ?: ?No ?: ?Yes ? I.U.D.?: ?No ? Pelvic Radiation: ? No ? Prior UMBRELLA CUTTER Therapy?: ? No ? Hist Abnl Pap/Biopsy?: [...] ??For further ? information please contact the [facility] Laboratory. ? Reference: ??Amanda BLACK. ??General Operator of Pap Smear Results. ??In: ? Barbara BS, [facility], ed. ??The Pap Smear. ??[place]: ??Mendoza, 2002: ? 71-77. ANA GILMAN 05/29/2011 3:57 PM EST Marilyn House MD PATHOLOGY/CYTOLOGY ORDERABLES ANA GILMAN documented in this encounter Visit Diagnoses Diagnosis Unspecified high-risk - Primary documented in this encounter Care Teams Adaptive Physical Education Specialist Relationship Specialty Start Date End Date Dav Carlos MD PCP - General 10/01/10 11/30/12 documented as of this encounter
--- OUTSIDE RECORDS SUMMARY | 2023-11-10 01:12 | XMS_ITS | Encounter Summary ---
Author Organization [facility] [place] [address] Care Team Providers Care Pickle Cutter Name Role Phone Dav Carlos MD Primary Care Provider [phone] Reason for Visit * Reason Comments Routine Visit Encounter Details Date Type Department Care Team (Latest Contact Info) Description 05/14/2011 10:00 AM EST Initial Obstetrics [place] [address] Amina Mock MD [facility] [address] OBSTETRICS [place] [address] GA: 6w3d Discharge Disposition: Home Social History [...] 05/29/2011 11:02 am) Patient Info ID: ? [id number] ? : ??[birth year] (31 yrs) Name: ? MIGDALIA MOREIRA ? Visit Date: 05/29/2011 10:56 am Performed By Performed By: ?Caryl Yepez RDMS Attending: ? Arik PENALOZA, E ??Valerie Referred By: ? AMINA MOCK MD Service(s) Provided UOBTV - Viability - Cervical Length - Transvaginal - ??[id number] Indications Viability, transvaginal Evaluation Num Of Fetuses: [...] Final 05/29/2011 11:02 am) Patient Info ID: [id number] : [birth year] (31 yrs) Name: MIGDALIA MOREIRA Visit Date: 05/29/2011 10:56 am Performed By Performed By: Crayl Yepez [facility] Attending: Lisette Elise MD Referred By: AMINA MOCK MD Service(s) Provided UOBTV - Viability - Cervical Length - Transvaginal - [id number] Indications Viability, transvaginal Evaluation Num Of Fetuses: [...] ? Ordered By: AMINA MOCK ? MR#: [id number] ?LOC: ??5L ? /Sex: ?? 8 (31 years), ? Female ? PROCEDURE: Urine Culture ?SOURCE: U CC ? COLLECTED: 05/14/2011 10:00 ? STARTED: 05/14/2011 16:49 ? FINAL REPORT ? Final Report ? Verified: 15:10 ? No growth (Less than 1,000 cfu/ml). ? ____ [facility] Urine specimen obtained by clean catch procedure (specimen) 05/14/2011 10:00 AM EST 05/14/2011 4:49 PM EST Amina Mock MD MICROBIOLOGY - GENER AL ORDERABLES [facility] documented in this encounter Visit Diagnoses Diagnosis High-risk supervision- Primary Unspecified high-risk Supervision of high-risk Unspecified high-risk Hypertension Unspecified essential hypertension Diabetes mellitus complicating , antepartum Diabetes mellitus, antepartum Obstructive sleep apnea Obstructive sleep apnea (adult) (pediatric) High-risk supervision Unspecified high-risk documented in this encounter Care Teams Pickle Cutter Relationship Specialty Start Date End Date Dav Carlos MD PCP - General 10/01/10 11/30/12 documented as of this encounter
--- OUTSIDE RECORDS SUMMARY | 2023-11-10 01:12 | XMS_ITS | Referral Summary ---
Author Organization [facility] Address [address] [place] [address] Care Team Providers Care Director Cpg Name Role Phone Trice Holman MAYELA Primary Care Provider [phone] Social History Tobacco Use Types Packs/Day Years [...] Antibody Negative Negative 09/14/2022 10:09 EDT [facility] Blood VENOUS BLOOD / Unknown 09/11/2022 12:04 EDT 09/12/2022 21:24 EDT Provider Outr Resulting Lab CHEMISTRY & BLOOD GAS ORDERABLES [facility] [address] [place] [address] from Last 3 Months or Most Recently Relevant to Health Maintenance Care Teams Director Cpg Relationship Specialty Start Date End Date Trice Holman FNP [address] [place], [place] [id number] PCP - General 01/17/23
--- OUTSIDE RECORDS SUMMARY | 2023-11-10 01:12 | XMS_ITS | Encounter Summary ---
Author Organization [facility] [place] [address] Care Team Providers Care Air Pollution Inspector Name Role Phone Henri Gonzalez DO Primary Care Provider [phone] Encounter Details Date Type Department Care Team (Late st Contact Info) Description 03/17/2010 9:00 AM EST Office Visit Obstetrics [place] [address] Adelfo Mckeon MD [facility] DR OBSTETRICS & [place] [address] Social History Tobacco Use Types Packs/Day Years [...] on filedocumented in this encounter Care Teams Air Pollution Inspector Relationship Specialty Start Date End Date Henri Gonzalez DO [address] [place] [address] PCP - General 03/11/10 09/30/10 documented as of this encounter
--- OUTSIDE RECORDS SUMMARY | 2023-11-10 01:12 | XMS_ITS | Encounter Summary ---
Author Organization [facility] Address [address] [place] [address] Care Team Providers Care Lug Breaker And Wire Puller Name Role Phone Unknown, Provider Primary Care Provider Trice Holman Primary Care Provider [phone] Encounter Details Date Type Department Care Team (Latest Contact Info) Description 09/15/2022 Lab Requisition [facility] Pathology & Laboratory Medicine - [facility] [address] [place] [address] Rosalva Valdez FNP [address] [facility] [address] [place] [address] Encounter for general adult medical [...] 16, PCR Negative Negative 10/01/2022 13:45 EDT [facility] HPV18/45 RNA (HPV18/45) Negative Negative 10/01/2022 13:45 EDT [facility] Papanicolaou smear specimen (specimen) CERVIX UTERI STRUCTURE / Unknown 09/11/2022 11:30 EDT 09/30/2022 9:55 EDT Rosalva Valdez [facility] MICROBIOLOGY - GENER AL ORDERABLES [facility] [address] [place] [address] * (ABNORMAL) HUMAN PAPILLOMAVIRUS (HPV) DETECTION-HIGH RISK TYPES (09/11/2022 11:30 EDT) HPV other High Risk types, PCR Positive( A) Negative 10/01/2022 13:45 EDT [facility] Comment:E6 OR E7 mRNA from o ne or more types of HPV types 16,18,31,33,35,39,45,51,52,56,58,59,66, and 68 is detected by kindergartner mediated amplification. High and intermediate risk HPV types are associated with most squamous intraepithelial lesions and cervical cancers. Papanicolaou smear specimen (specimen) CERVIX UTERI STRUCTURE / Unknown 09/11/2022 11:30 EDT 09/30/2022 9:55 EDT Rosalva [facility] MICROBIOLOGY - GENER AL ORDERABLES [facility] [address] [place] [address] * PAP TEST (09/11/2022 11:30 EDT) Specimens A. Cervix and/or Endocervix , ThinPrep Imaging System with Manual Evaluation 10/01/2022 13:45 EDT [facility] Specimen Adequacy Satisfactory for Evaluation - transformation zone component present Scant due to excessive blood 10/01/2022 13:45 EDT [facility] General Categorization Negative for intraepithelial lesion or malignancy 10/01/2022 13:45 T [facility] Attestation . 10/01/2022 13:45 [facility] at 1345 Clinical History See below 10/02/19 13:45 T [facility] HPV The result for the Human Papillomavirus (HPV) Detection-High Risk Types is Positive . E6 OR E7 mRNA from one or more types of HPV types 16,18,31,33,35,39 ,45,51,52,56,58,5 9,66, and 68 is detected by kindergartner mediated amplification. High and intermediate risk HPV types are associated with most squamous intraepithelial lesions and cervical cancers. Testing was performed on specimen [id number] and was resulted on 09/30/2022 1647 EDT by FLORIAN, LAB INSTRUMENT RESULTS IN 10/01/2022 13:45 T [facility] Genotyping 16 & 18/45 The results for the HPV Genotypes 16 and 18/45 are Negative for the HPV16 RNA and Negative for the HPV18/45 RNA (HPV18/45). Testing was performed on specimen [id number] and was resulted on 10/01/2022 1345 EDT by FLORIAN, LAB INSTRUMENT RESULTS IN 10/01/2022 13:45 EDT [facility] Performing Lab [facility] 10/01/2022 13:45 T [facility] Scanned Images 10/01/2022 13:45 EDT [facility] Papanicolaou smear specimen (specimen) CERVIX UTERI STRUCTURE / Unknown 09/11/2022 11:30 EDT 09/16/2022 12:32 EDT Rosalva PEDRO PATHOLOGY ORDERABLES Performing Organization Address [facility] Co de Phone Number [facility] [address] [place] [address] * CHLAMYDIA/N. GONORRHOEAE AMPLIFIED RNA, THINPREP (09/11/2022 11:30 EDT) Neisseria gonorrhoeae Result Negative Negative 09/16/2022 14:31 EDT [facility] Chlamydia trachomatis Result Negative Negative 09/16/2022 14:31 EDT [facility] Papanicolaou smear specimen (specimen) CERVIX UTERI STRUCTURE / Unknown 09/11/2022 11:30 EDT 09/16/2022 9:34 EDT Rosalva PEDRO MICROBIOLOGY - GENER AL ORDERABLES Performing Organization Address [facility] Co de Phone Number [facility] [address] [place] [address] documented in this encounter Visit Diagnoses Diagnosis Encounter for general adult medical examination without abnormal findings Unspecified general medical examination Encounter for screening for malignant neoplasm of cervix Screening for malignant neoplasm of the cervix Encounter for screening for human papillomavirus (HPV) Special screening examination for human papillomavirus (HPV) documented in this encounter Care Teams Lug Breaker And Wire Puller Relationship Specialty Start Date End Date Unknown, Provider, PCP - General 02/20/15 01/16/23 Trice Holman [place] [address] PCP - General 01/17/23 documented as of this encounter
--- OUTSIDE RECORDS SUMMARY | 2023-11-10 01:12 | XMS_ITS | Encounter Summary ---
Author Organization [facility] [place] [address] Care Team Providers Care Certified Endoscopy Technician Name Role Phone Dav Carlos MD Primary Care Provider [phone] Reason for Visit * Reason Comments Routine Visit Encounter Details Date Type Department Care Team ([facility] st Contact Info) Description 09/10/2011 3:15 PM EDT Routine Obstetrics [place] [address] Marilyn Reilly MD [facility] DR OBSTETRICS & [place] [address] GA: 23w3d Discharge Disposition: Home Social History [...] (if applicable) along with the Guide to [place] was given to the patient. The materials [...] MD HEMATOLOGY ORDERAB LES Performing Organization Address City/State/[facility] Co de Phone Number [facility] documented in this encounter Visit Diagnoses Diagnosis Unspecified high-risk documented in this encounter Care Teams Certified Endoscopy Technician Relationship Specialty Start Date End Date Dav Carlos MD PCP - General 10/01/10 11/30/12 documented as of this encounter
--- OUTSIDE RECORDS SUMMARY | 2023-11-10 01:12 | XMS_ITS | Encounter Summary ---
Author Organization [facility] [place] [address] Care Team Providers Care Truss Assembler Name Role Phone Dav Carlos MD Primary Care Provider [phone] Reason for Visit * Reason Comments Routine Visit Encounter Details Date Type Department Care Team (Latest Contact Info) Description 09/29/2011 2:45 PM EDT Routine Obstetrics [place] [address] Julien Elizabeth MD [facility] DR OBSTETRICS & [place] [address] GA: 26w1d Discharge Disposition: Home Social History [...] - 09/29/2011 3:08 PM EDT Welcome to [employer], your secure online access to your electronic medical record at [facility]. Using [employer] you will be able to send messages to your providers, view your test results, renew prescriptions, schedule appointments, and much more. Follow these instructions to enter your personal [employer] account for the first time: 1. Start your internet browser and type [email or web address] into the address bar. 2. In the New User box on the right-hand side of the Welcome page click the link that states, ???I have an activation code.?? 3. On the Identification page, follow these steps: a) Enter your [employer] activation code: [email or web address] b) Expires: 11/13/11 03:08 PM IMPORTANT: This Activation Code will on the above mentioned date. If you do not sign up for [employer] by this date, you will need to request another activation code. c) Enter your date of , using the calendar tool provided. d) Enter your Zip code. e) Select ???submit?? to go to the next page. 4. On the Create Account page, follow these steps: a) Create a [employer] username. This can???t be changed, so choose [...] record. If you have any questions about [employer] or your Access Code, please call for [place], for [place] or for [place]. If you need technical support, please e-mail [employer] . Remember, [facility] is NOT for urgent [...] 10/13/2011 11:40 am) Patient Info ID: ? [id number] ? : ??[birth year] (31 yrs) Name: ? MIGDALIA MOREIRA ? Visit Date: 10/13/2011 11:28 am Performed By Performed By: ?Neda Hernandez [facility] Attending: ? Arik PENALOZA, E ??Valerie Referred By: ? JULIEN ELIZABETH MD Service(s) Provided UOBFOL - Efw - Growth - Reevaluation - [place] ?[id number] - [id number] Indications Efw, Growth IDDM; Evaluation Num Of [...] Final 10/13/2011 11:40 am) Patient Info ID: [id number] : [birth year] (31 yrs) Name: MIGDALIA MOREIRA Visit Date: 10/13/2011 11:28 am Performed By Performed By: Neda Hernandez [facility] Attending: Lisette Elise MD Referred By: JULIEN ELIZABETH MD Service(s) Provided UOBFOL - Efw - Growth - Reevaluation - [place] [id number] - [id number] Indications Efw, Growth IDDM; Evaluation Num Of [...] uncontrolled documented in this encounter Care Teams Truss Assembler Relationship Specialty Start Date End Date Dav Carlos MD PCP - General 10/01/10 11/30/12 documented as of this encounter
--- OUTSIDE RECORDS SUMMARY | 2023-11-10 01:12 | XMS_ITS | Encounter Summary ---
Author Organization [facility]onica [facility] [place] [address] Care Team Providers Care Mc Kay Machine Operator Name Role Phone Dav Carlos MD Primary Care Provider [phone] Reason for Visit * Reason Comments Hypersomnia Encounter Details Date Type Department Care Team ([facility] Contact Info) Description 12/10/2010 8:00 PM EDT Procedure [place] [address] Marleen Taylor MD [facility] [place] [address] CADY (obstructive sleep apnea) (Primary Dx) Social [...] Study Date: 12/10/2010 Sex: Female Subject Code: [id number] Date of : 1980 Referring Physician: Dav [...] (pediatric) documented in this encounter Care Teams Mc Kay Machine Operator Relationship Specialty Start Date End Date Dav Carlos MD PCP - General 10/01/10 11/30/12 documented as of this encounter
--- OUTSIDE RECORDS SUMMARY | 2023-11-10 01:12 | XMS_ITS | Encounter Summary ---
Author Organization [facility] [place] [address] Care Team Providers Care Interventional Neuroradiologist Name Role Phone Dav Carlos MD Primary Care Provider [phone] Reason for Visit * Reason Comments Routine Visit Encounter Details Date Type Department Care Team ([facility] st Contact Info) Description 07/16/2011 11:00 AM EDT Routine Obstetrics [place] [address] Marilyn Reilly MD [facility] DR OBSTETRICS & [place] [address] GA: 15w3d Discharge Disposition: Home Social History [...] Marilyn Reilly MD CHEMISTRY ORDERABL ES ANA [employer] * (ABNORMAL) Protein, urine, 24 hour (07/15/2011 [...] high-risk documented in this encounter Care Teams Interventional Neuroradiologist Relationship Specialty Start Date End Date Dav Carlos MD PCP - General 10/01/10 11/30/12 documented as of this encounter
--- OUTSIDE RECORDS SUMMARY | 2023-11-15 01:00 | XMS_ITS | Encounter Summary ---
Author Organization [facility] [place] [address] Care Team Providers Care Flow Coordinator Name Role Phone Carlos Alberto Ag MD Primary Care Provider Reason for Referral * Consultation (Routine) - Closed Specialty Diagnoses / Procedures Referred By Jay flores Referred To Contact Internal Medicine Diagnoses Severe episode of recurrent major depressive disorder, without psychotic features Carmen Vaca [facility] [place] [address] Gail Sanchez MD [facility] [place] [address] Referral ID Status Reason Start Date Expiration Date V isits Requested Visits Authorized [id number] Closed Specialty Service Requested 08/28/2019 08/27/2020 1 1 Encounter Details Date Type Department Care Team (Late st Contact Info) Description 08/28/2019 Orders [place] [address] Carmen Vaca [facility] [address] PSYCHIATRY DEPT [place], [place] [id number] Severe episode of recurrent major depressive disorder, [...] features documented in this encounter Care Teams Flow Coordinator Relationship Specialty Start Date End Date Carlos Alberto Ag MD [facility] [place] [address] PCP - General General Internal Medicine 04/26/17 10/31/19 documented as of this encounter
--- OUTSIDE RECORDS SUMMARY | 2023-11-15 01:00 | XMS_ITS | Encounter Summary ---
Author Organization [facility] [place] [address] Care Team Providers Care Pbx Supervisor Name Role Phone Carlos Alberto Ag MD Primary Care Provider Reason for Visit * Reason Onset Date Comments Other 09/06/2019 Encounter Details Date Type Department Care Team ([facility] st Contact Info) Description 09/06/2019 Telephone [place] [phone] Carmen Vaca [facility] [place] [address] Other Social History Tobacco Use Types Packs/Day [...] Notes * Telephone Encounter - Carmen Vaca [facility] - 09/06/2019 9:46 AM EDT Primary Care & Psychiatry Collaborative Care Tried to call both listed phone numbers to follow up on IMPACT and referral to Dr. Sanchez. Left .Followed up with my message with attached questionnaires. Carmen Vaca M.S., [facility] Behavioral Health Clinician (BHC) Primary Care & Psychiatry Collaborative Care [facility] Direct # [phone] Clinic#: [phone] Pager [phone] documented in this encounter Plan of Treatment Not on file documented as of this encounter Visit Diagnoses Not on filedocumented in this encounter Care Teams Pbx Supervisor Relationship Specialty Start Date End Date Carlos Alberto Ag MD [facility] [place] [address] PCP - General General Internal Medicine 04/26/17 10/31/19 documented as of this encounter
--- OUTSIDE RECORDS SUMMARY | 2023-11-15 01:00 | XMS_ITS | Encounter Summary ---
Author Organization [facility] [place] [address] Care Team Providers Care Heavy Equipment Operator Apprentice Name Role Phone Rosemary Howe MD Primary Care Provider [phone] Encounter Details Date Type Department Care Team (Latest Contact Info) Description 11/01/2019 11:00 AM EDT TH Visit (TeleHealth) Internal Medicine at [facility] [address] [place] [address] Rosemary Howe MD [facility] [place] [address] Benign paroxysmal positional vertigo, unspecified laterality Social [...] more? Visit our health information library at [email or web address] You can also view health information on [employer], your personal patient account. Log in or sign uptoday. Enter P834 in the search box to learn more about Gaston Maneu[facility] at Home for Vertigo: Exercises. Current as of: March 08, 2019?Content Version: 12.5 ?? [id number] [employer]. Care instructions adapted under license by [facility]. If you have questions about a medical condition or this instruction, always ask your healthcare professional. [employer] disclaims any warranty or liability for your use of this information. documented in this encounter Progress Notes * Rosemary Howe MD - 11/01/2019 11:00 AM EDT Telephone visit COVID 19 pandemic She is in [place], [place] Discussed this visit will be billed [...] laterality documented in this encounter Care Teams Heavy Equipment Operator Apprentice Relationship Specialty Start Date End Date Rosemary Howe MD [facility] [address] [facility] [place] [address] PCP - General General Internal Medicine 11/01/1908/21 documented as of this encounter
--- OUTSIDE RECORDS SUMMARY | 2023-11-15 01:00 | XMS_ITS | Encounter Summary ---
Author Organization [facility] Address [facility] [place] [address] Care Team Providers Care Punchboard Assembler Name Role Phone Rosemary Howe MD Primary Care Provider [phone] Encounter Details Date Type Department Care Team (Late st Contact Info) Description 09/01/2019 Telephone [place] [phone] Nela Haines Social History Tobacco Use Types [...] on filedocumented in this encounter Care Teams Punchboard Assembler Relationship Specialty Start Date End Date Rosemary Howe MD [facility] [address] [facility] [place] [address] PCP - General General Internal Medicine 11/01/1908/21 documented as of this encounter
--- OUTSIDE RECORDS SUMMARY | 2023-11-15 01:00 | XMS_ITS | Encounter Summary ---
Author Organization [facility] Address [facility] [place] [address] Care Team Providers Care Emergency Room Doctor Name Role Phone Rosemary Howe MD Primary Care Provider [phone] Encounter Details Date Type Department Care Team (Late st Contact Info) Description 09/15/2019 Telephone [place] [phone] Ofe Craig Social History Tobacco Use Types [...] on filedocumented in this encounter Care Teams Emergency Room Doctor Relationship Specialty Start Date End Date Rosemary Howe MD [facility] [address] [facility] [place] [place] [address] PCP - General General Internal Medicine 11/01/1908/21 documented as of this encounter
--- OUTSIDE RECORDS SUMMARY | 2023-11-15 01:00 | XMS_ITS | Encounter Summary ---
Author Organization [facility] [place] [address] Care Team Providers Care Learning Support Assistant Name Role Phone Carlos Alberto Ag MD Primary Care Provider Reason for Visit * Reason Onset Date Comments Medication Refill 09/09/2019 Encounter Details Date Type Department Care Team (Late st Contact Info) Description 09/09/2019 Refill [place] [address] Carlos Alberto Ag MD [facility] [address] [facility] [place] [address] Uncontrolled type 2 diabetes mellitus without complication, [...] insulin documented in this encounter Care Teams Learning Support Assistant Relationship Specialty Start Date End Date Carlos Alberto Ag MD [facility] [address] [place] [address] PCP - General General Internal Medicine 04/26/17 10/31/19 documented as of this encounter
--- OUTSIDE RECORDS SUMMARY | 2023-11-15 01:00 | XMS_ITS | Encounter Summary ---
Author Organization [facility] [place] [address] Care Team Providers Care Lathing Supervisor Name Role Phone Carlos Alberto Ag MD Primary Care Provider Reason for Visit * Reason Onset Date Comments Other 09/12/2019 Encounter Details Date Type Department Care Team ([facility] st Contact Info) Description 09/12/2019 Telephone [place] [phone] Carmen Vaca [facility] [place] [address] Other Social History Tobacco Use Types Packs/Day [...] Notes * Telephone Encounter - Carmen Vaca [facility] - 09/12/2019 12:54 PM EDT Primary Care & Psychiatry Collaborative Care Called to follow up on IMPACT, mood, referral to Dr. Sanchez, safety concerns. Left and my message. Carmen Vaca M.S., [facility] Behavioral Health Clinician ([facility]) Primary Care & Psychiatry Collaborative Care [facility] Direct # [phone] Clinic#: [phone] Pager [phone] documented in this encounter Plan of Treatment Not on file documented as of this encounter Visit Diagnoses Not on filedocumented in this encounter Care Teams Lathing Supervisor Relationship Specialty Start Date End Date Carlos Alberto Ag MD [facility] [place] [address] PCP - General General Internal Medicine 04/26/17 10/31/19 documented as of this encounter
--- OUTSIDE RECORDS SUMMARY | 2023-11-15 01:00 | XMS_ITS | Encounter Summary ---
Author Organization [facility] [place] [address] Care Team Providers Care Field Superintendent Name Role Phone Carlos Alberto Ag MD Primary Care Provider Reason for Visit * Reason Onset Date Comments Medication Refill 09/21/2019 Encounter Details Date Type Department Care Team (Late st Contact Info) Description 09/21/2019 [place] [address] Carlos Alberto Ag MD [facility] [address] [place] [address] Menstrual disorder Social History Tobacco Use Types [...] tract documented in this encounter Care Teams Field Superintendent Relationship Specialty Start Date End Date Carlos Alberto Ag MD [facility] [address] [place] [address] PCP - General General Internal Medicine 04/26/17 10/31/19 documented as of this encounter
--- OUTSIDE RECORDS SUMMARY | 2023-11-15 01:00 | XMS_ITS | Clinical Summary ---
Author Organization [facility] Address [facility] [place] [address] Care Team Providers Care Registered Mail Clerk Name Role Phone Unavailable Primary Care Provider Unavailabl e Allergies Active Allergy Reactions Criticality Noted Date Comments Red Blood Cells High 12/23/2011 Antibodies-Difficult to Crossmatch DO NOT REMOVE Please contact the Blood Bank at [phone] for questions. Medications Medication Sig Dispensed Refills [...] 2 Overview (05/09/2013): EGD 05/2003 (Dr Nj, [facility]): normal, no biopsies taken Assessment & Plan (09/29/2011 3:04 PM EDT): Switched from prilosec to zantac Carpal tunnel syndrome 05/14/2011 Overview (05/09/2013): eval 12/2003 Dr Ortiz ([facility]), bilat symptoms R>L NCS: mild median nerve entrapment at wrists, L>R. No evidence for ulnar nerve entrapment or neuropathy. Scanned in CIS Depression Overview (05/09/2013): Hx depression prior to 2003 Re-eval 2003 with PCP at [facility] Prior tx paroxetine, lexapro Post depression [...] R wrist, s/p excision 06/29, Dr Cabrales ([facility]) Healthcare maintenance Overview (05/09/2013): Records from [facility] received 03/2013. tdap 02/14/2009 (we gave at [...] insulin HPV Routine 03/05/2017 9:28 AM EST ALL TERRAIN VEHICLE TECHNICIAN CYTOLOGY FINAL REPORT Routine 03/05/2017 9:28 AM EST LIPID PANEL (REFLEX DIRECT LDL) Routine 03/05/2017 8:17 AM EST Dyslipidemia HIV SCREEN, 4TH GENERATION ([facility]/CGP/APD/NLH) Routine 05/29/2011 12:38 PM EST Unspecified high-risk from Last 3 Months or Most Recently Relevant to Health Maintenance Results * (ABNORMAL) Basic Metabolic Panel (non-fasting) (10/14/2017 3:46 PM EDT) Glucose Lvl 243(H) 65 - 199 mg/dL [facility] Comment:Diabetes: >=200 mg/d L plus symptoms BUN 16 8 - 18 mg/dL [facility] Creatinine 0.63(L) 0.70 - 1.20 mg/dL [facility] Sodium 139 135 - 145 mmol/L [facility] Potassium 4.0 3.5 - 5.0 mmol/L [facility] Comment: Please note: ??Patients with WBC >100,000 may have falsely elevated Potassium levels. ??For accurate Potassium quantification in these patients send serum separator tube (gold top) for subsequent determinations. ??Contact the Clinical Chemistry Laboratory if there are any questions. Chloride 99 98 - 107 mmol/L [facility] CO2 25 22 - 31 mmol/L [facility] Anion Gap 15 5 - 15 mmol/L [facility] Calcium 9.2 8.5 - 10.5 mg/dL [facility] Estimated GFR 113 >=60 mL/min/1. 73 m?? [facility] Comment: The eGFR was calculated using the CKD-EPI equation. As with all creatinine based estimates of kidney function, eGFR values calculated with the CKD-EPI equation are not accurate in patients with acute kidney failure, extremes of body mass or the acutely ill. http://[employer]/CrowdRisenkdep http://Zoomy/[facility] eGFR 131 >=60 mL/min/1. 73 m?? [facility] Comment: The eGFR was calculated using the CKD-EPI equation. As with all creatinine based estimates of kidney function, eGFR values calculated with the CKD-EPI equation are not accurate in patients with acute kidney failure, extremes of body mass or the acutely ill. http://[employer]/CrowdRisenkdep http://[employer]/[facility] Blood specimen (specimen) 10/14/2017 3:46 PM EDT 10/14/2017 3:52 PM EDT Narrative Resulting Agency Comment Spec In Lab Malgorzata Pappas APRN CHEMISTRY ORDERABLES [facility] [place] [place] [address] * (ABNORMAL) Hemoglobin A1c (08/19/2017 3:27 PM EDT) Hemoglobin A1C 6.9(H) 4.3 - 5.6 % [facility] Comment: Reference Range: 4.3 [...] Mellitus, Diabetes Care 2013; 36: Suppl. 1, S67-79 Est Avg Gluc 151 mg/dL [facility] Comment: eAG [...] into estimated average glucose values. ??Diabetes Care 2008:31(8):8366-1577. Blood specimen (specimen) 08/19/2017 3:27 PM EDT 08/19/2017 3:34 PM EDT Narrative Resulting Agency Comment Spec In Lab Malgorzata Pappas APRN CHEMISTRY ORDERABLES [facility] [place] [address] * U Albumin/Cre Ratio (06/03/2017 9:41 AM EST) Alb/Cr Ratio, Random Not Calculated 0 - 29 mcg/mg Cr [facility] Comment: Reference Ranges: <30 [...] 362 U Albumin Conc, Random <3.0 mg/L [facility] U Creatinine 120 mg/dL [facility] Urine specimen (specimen) 06/03/2017 9:41 AM EST 06/03/2017 9:51 AM EST Narrative Resulting Agency Comment Spec In Lab Jacqueline Cleveland MD URINE ORDERABLES Performing Organization Address [facility] de Phone Number [facility] [place] [address] * HPV (03/05/2017 9:28 AM EST) HPV 16 NEGATIVE NEGATIVE [facility] HPV 18 NEGATIVE NEGATIVE [facility] HPV Other HR NEGATIVE NEGATIVE [facility] HPV Interpretation See Comment [facility] Comment: NEGATIVE for high-risk [...] Agency Comment Spec In Lab Rosalva Cardenas TANNING CONSULTANT PATHOLOGY/CYTOLOGY O RDERABLES Performing Organization Address [facility] de Phone Number [facility] [place] [address] * Principal Solutions Architect Cytology Final Report (03/05/2017 9:28 AM EST) Principal Solutions Architect Cytology Final Report [id number] ? Location: [facility] The signing pathologist has (i) examined the relevant preparation(s) for the specimen(s) and (ii) rendered or confirmed the diagnosis(es). . ? Principal Solutions Architect Final DIAGNOSIS Normal Negative for Intraepithelial Lesion or Malignancy (NILM). For consensus guidelines for the management of cervical cancer screening test results, please see: ?? http://www.asccp.o rg . Electronically signed by: ??Supriya REYNOSO(ASCP)Coleen Verified: ??03/17/2017 ?Composition Stone Applicator Performed at: ??-[facility] Dept. of Pathology, [place], [place] HPV RESULTS HPV16 (Result) ?Negative HPV18 [...] Clinical Genomics and Advanced Technology (CGAT) at [facility]. ? - Marvin Lorenzana, PhD, [facility], Director-[facility] STATEMENT OF ADEQUACY Specimen submitted is satisfactory. Endocervical component present. CLINICAL INFORMATION HPV Option: ?Concurrent HPV and Pap Preparation: ? Liquid based Pap Specimen Source: ? Cervical/Endocervi loni LMP: ? n/a Hormones?: ? Yes Hysterectomy?: ? No ?: ? No ?: ? No I.U.D.?: ? No Pelvic Radiation: ?No Prior ALL TERRAIN VEHICLE TECHNICIAN Therapy?: ?No Hist Abnl Pap/Biopsy?: ?? No Hist of HPV Vaccine?: ?No Hist of Smoking?: ?No Hist of NIKHIL exposure?: ?? No ICD Diagnosis: ? Z12.4 Encounter for screening for malignant neoplasm of cervix Clinical Data, Significant Therapy and Clinical Impression ?? : . CLINICAL INFORMATION ?_ This Pap Test has been evaluated with the assistance of the [employer] Pap Test Imaging System. Note: The Pap test is a screening test for cervical cancer with an inherent false-negative rate dependent upon several variables. ??For further information please contact the [facility] Laboratory. Reference: ??Amanda CS. ??It Business Systems Analyst of Pap Smear Results. ??In: ??Barbara BS, [facility], ed. ??The Pap Smear. ??[place]: ??[place]endoza, 2002: ??71-77. [facility] 03/05/2017 9:28 AM EST Rosalva Cardenas TANNING CONSULTANT PATHOLOGY/CYTOLOGY O RDERABLES [facility] [place] [address] * (ABNORMAL) Lipid Panel (03/05/2017 8:17 AM EST) Chol, Total 166 <=239 mg/dL [facility] Triglycerides 309(H) <=199 mg/dL [facility] HDL 32(L) >=40 mg/dL [facility] LDL Cholesterol 72 <=190 mg/dL [facility] Chol/HDL Ratio 5.2 ratio [facility] Lipid Interpretation See Note [facility] Comment: Lipid management should be guided by a patient? s ASCVD risk, goals and preferences. ACC/AHA Guidelines recommend high intensity statin if clinical ASCVD or LDL greater than or equal to 190 mg/dL. http://[employer].com/HGZ-EHQ-Bbdxzuppa Adults aged 40-75 with LDL 70-189 mg/dL should have their 10 year ASCVD risk estimated with the ACC/AHA ASCVD risk commercial construction estimator http://tools.acc.org/SKYVL-Dcjh-Jyirljyxh/ Statin should be discussed if risk greater [...] Narayanan MD CHEMISTRY ORDERABLES Performing Organization Address City/[facility]/ZIP Co de Phone Number [facility] [place] [place] [address] * HIV (05/29/2011 12:38 PM EST) HIV 1/[address] [facility] Blood specimen (specimen) 05/29/2011 12:38 PM EST 05/29/2011 12:40 PM EST Marilyn Reilly MD [facility]MMUNOLOGY ORDERAB [facility] from Last 3 Months or [...]
--- OUTSIDE RECORDS SUMMARY | 2023-11-15 01:01 | XMS_ITS | Encounter Summary ---
Author Organization [facility] Address [facility] [place] [address] Care Team Providers Care Genetic Supervisor Name Role Phone Carlos Alberto Ag MD Primary Care Provider Reason for Visit * Physical Therapy (Routine) - Closed Specialty Diagnoses / Procedures Referred By Contac t Referred To Contact Physical Therapy Diagnoses Chronic right hip pain Carlos Alberto Ag MD [facility] [place] [address] [address] [place] [address] Referral ID Status Reason Start Date Expiration Date V isits Requested Visits Authorized [id number] Closed Evaluate and Treat 05/13/2017 05/13/2018 1 1 Encounter Details Date Type Department Care Team (Late st Contact Info) Description 06/03/2017 8:00 AM EST Office Visit Physical Therapy at [facility] [address] [place] [phone] Navid Enamorado, PT [facility] PHYSICAL MEDIC[facility] & [place] [address] Chronic right hip pain Social History Tobacco [...] 1. Chronic right hip pain CURRENT HISTORY: Saarh Moncada is a 37 y.o. female referred [...] symptoms. 2. Improved awareness of compensation Therapy Business Services Tech Goals ( 6wks) Patient will... 1. increase [...] thigh documented in this encounter Care Teams Genetic Supervisor Relationship Specialty Start Date End Date Carlos Alberto Ag MD [facility] [place] [address] PCP - General General Internal Medicine 04/26/17 10/31/19 documented as of this encounter
--- OUTSIDE RECORDS SUMMARY | 2023-11-15 01:01 | XMS_ITS | Encounter Summary ---
Author Organization [facility] Address [facility] [place] [address] Care Team Providers Care Necktie Centralizing Machine Operator Name Role Phone Carlos Alberto Ag MD Primary Care Provider Reason for Visit * Reason Onset Date Comments Medication Refill 06/24/2017 Depo-subq Prov era 104 syringe Encounter Details Date Type Department Care Team (Late st Contact Info) Description 06/24/2017 Refill Internal Medicine at [facility] [address] [place] [address] Jenelle Lloyd, STARTING SHEET TANK OPERATOR Menstrual disorder Social History Tobacco Use Types [...] tract documented in this encounter Care Teams Necktie Centralizing Machine Operator Relationship Specialty Start Date End Date Carlos Alberto Ag MD [facility] [place] [address] PCP - General General Internal Medicine 04/26/17 10/31/19 documented as of this encounter
--- OUTSIDE RECORDS SUMMARY | 2023-11-15 01:01 | XMS_ITS | Encounter Summary ---
Author Organization [facility] Address [facility] [place] [address] Care Team Providers Care Combat Systems Operator Name Role Phone Carlos Alberto Ag MD Primary Care Provider Reason for Visit * Reason Comments Cough +1 week plus of coug jacob, chest hurts because of coughing so much, phleghm mainly dark green Encounter Details Date Type Department Care Team (Late st Contact Info) Description 09/15/2017 9:00 AM EDT Office [place] [address] Adan Markham MD [facility] [place] [address] Viral URI with cough Social History Tobacco [...] discussed symptomatic management of her hersymptoms including iawm-wyn-krusipq cough suppressant, saline nasal spray, jevh-qij-vtwytcu analgesics, and continuing adequate hydration. She was advised to return to the clinic if her symptoms do not improve or become worse. Viral URI - Symptomatic management as above - Return precautions discussed F/U with PCP Adan Markham MD ([place]) Internal Medicine, PGY2 Pager #[phone] * Antonio Hernandez MD - 09/15/2017 9:00 [...] site documented in this encounter Care Teams Combat Systems Operator Relationship Specialty Start Date End Date Carlos Alberto Ag MD [facility] [place] [address] PCP - General General Internal Medicine 04/26/17 10/31/19 documented as of this encounter
--- OUTSIDE RECORDS SUMMARY | 2023-11-15 01:01 | XMS_ITS | Encounter Summary ---
Author Organization [facility] [place] [address] Care Team Providers Care Machine Baster Name Role Phone Carlos Alberto Ag MD Primary Care Provider Reason for Visit * Reason Comments Medication Refill Encounter Details Date Type Department Care Team (Late st Contact Info) Description 06/22/2018 Refill [place] [address] Malgorzata Pappas, DIRECTOR [facility] [place] [address] Gastroesophageal reflux disease, esophagitis presence not specified; [...] documented in this encounter Care Teams Machine Baster Relationship Specialty Start Date End Date Carlos Alberto Ag MD [facility] [address] [place] [address] PCP - General General Internal Medicine 04/26/17 10/31/19 documented as of this encounter
--- OUTSIDE RECORDS SUMMARY | 2023-11-15 01:01 | XMS_ITS | Encounter Summary ---
Author Organization [facility] Address [facility] [place] [address] Care Team Providers Care Reinforcing Iron Worker Helper Name Role Phone Carlos Alberto Ag MD Primary Care Provider Encounter Details Date Type Department Care Team (Late st Contact Info) Description 09/21/2017 Orders Only Medicine Critical [place] [phone] Adan Markham MD [facility] [place] [address] Social History Tobacco Use Types Packs/Day Years [...] on filedocumented in this encounter Care Teams Reinforcing Iron Worker Helper Relationship Specialty Start Date End Date Carlos Alberto Ag MD [facility] [place] [address] PCP - General General Internal Medicine 04/26/17 10/31/19 documented as of this encounter
--- OUTSIDE RECORDS SUMMARY | 2023-11-15 01:01 | XMS_ITS | Encounter Summary ---
Author Organization [facility] [place] [address] Care Team Providers Care Skin Lifter Bacon Name Role Phone Carlos Alberto Ag MD Primary Care Provider Reason for Visit * Reason Comments Medication Refill Encounter Details Date Type Department Care Team (Late st Contact Info) Description 01/14/2018 [place] [address] Carlos Alberto Ag MD [facility] [place] [address] Uncontrolled type 2 diabetes mellitus without complication, [...] insulin documented in this encounter Care Teams Skin Lifter Bacon Relationship Specialty Start Date End Date Carlos Alberto Ag MD [facility] [place] [address] PCP - General General Internal Medicine 04/26/17 10/31/19 documented as of this encounter
--- OUTSIDE RECORDS SUMMARY | 2023-11-15 01:01 | XMS_ITS | Encounter Summary ---
Author Organization [facility] Address [facility] [place] [address] Care Team Providers Care Director Of Player Personnel Name Role Phone Carlos Alberto Ag MD Primary Care Provider Reason for Visit * Reason Comments Medication Refill Encounter Details Date Type Department Care Team (Late st Contact Info) Description 05/06/2018 Refill Internal Medicine at [facility] [address] [place] [address] Carlos Alberto Ag MD [facility] [place] [address] Depression, unspecified depression type; Anxiety Social History [...] unspecified documented in this encounter Care Teams Director Of Player Personnel Relationship Specialty Start Date End Date Carlos Alberto Ag MD [facility] [place] [address] PCP - General General Internal Medicine 04/26/17 10/31/19 documented as of this encounter
--- OUTSIDE RECORDS SUMMARY | 2023-11-15 01:01 | XMS_ITS | Encounter Summary ---
Author Organization [facility] [place] [address] Care Team Providers Care Bobbin Hauler Name Role Phone Pita Narayanan MD Primary Care Provider [phone] Encounter Details Date Type Department Care Team (Late st Contact Info) Description 08/21/2016 Telephone Family Medicine at [facility] [address] [place] [phone] Girish Mckay Jr., [place] [address] Social History Tobacco Use Types Packs/Day Years [...] on filedocumented in this encounter Care Teams Bobbin Hauler Relationship Specialty Start Date End [place] [address] PCP - General General Internal Medicine 01/28/1604/22 documented as of this encounter
--- OUTSIDE RECORDS SUMMARY | 2023-11-15 01:01 | XMS_ITS | Encounter Summary ---
Author Organization [facility] Address [facility] [place] [address] Care Team Providers Care Retail Assistant Store Manager Name Role Phone Carlos Alberto Ag MD Primary Care Provider Encounter Details Date Type Department Care Team (Late st Contact Info) Description 08/22/2019 Telephone Internal Medicine at [facility] [place] [phone] Ofe Craig Social History Tobacco Use Types [...] on filedocumented in this encounter Care Teams Retail Assistant Store Manager Relationship Specialty Start Date End Date Carlos Alberto Ag MD [facility] [place] [address] PCP - General General Internal Medicine 04/26/17 10/31/19 documented as of this encounter
--- OUTSIDE RECORDS SUMMARY | 2023-11-15 01:01 | XMS_ITS | Encounter Summary ---
Author Organization [facility] [place] [address] Care Team Providers Care Rn Spine Name Role Phone Enoch Medina MD Primary Care Provider [phone] Reason for Visit * Reason Comments Medication Refill Encounter Details Date Type Department Care Team ([facility] st Contact Info) Description 12/22/2016 Refill Internal Medicine at [facility] [address] [place] [address] Pita Narayanan MD [facility] [place] [address] Essential hypertension Social History Tobacco Use Types [...] hypertension documented in this encounter Care Teams Rn Spine Relationship Specialty Start Date End Date Enoch Medina MD [facility] [place] [address] PCP - General Family Medicine 08/22/20 06/03/21 documented as of this encounter
--- OUTSIDE RECORDS SUMMARY | 2023-11-15 01:01 | XMS_ITS | Encounter Summary ---
Author Organization [facility] [place] [address] Care Team Providers Care Laser Machine Operator Name Role Phone Pita Narayanan MD Primary Care Provider [phone] Reason for Visit * Reason Comments Follow-up Pt states she has be en having issues in regards to her anti-depressant medication in the last few weeks. Encounter Details Date Type Department Care Team (Latest Contact Info) Description 01/29/2017 1:30 PM EDT Office Visit Internal Medicine at [address] [address] [place] [address] Depression, unspecified depression type; Anxiety; Uncontrolled type [...] #depo issue Switched from [facility] to [facility] Having trouble with this. Can't get the 104 mg dose any more at [facility]. Has to use the 150 mg dose. [...] (!) 109 kg (240 lb 6.4 oz) XvP292% BMI 40.25 kg/m2 Alert, looks usual self, [...] type documented in this encounter Care Teams Laser Machine Operator Relationship Specialty Start Date End Date Pita Narayanan MD [facility] [address] [place] [address] PCP - General General Internal Medicine 01/28/1604/22 documented as of this encounter
--- OUTSIDE RECORDS SUMMARY | 2023-11-15 01:01 | XMS_ITS | Encounter Summary ---
Author Organization [facility] Address [facility] Ver[facility] [place] [address] Care Team Providers Care Sample Shoe Inspector And Reworker Name Role Phone Enoch Medina MD Primary Care Provider [phone] Reason for Visit * Reason Comments Medication Refill Encounter Details Date Type Department Care Team ([facility] st Contact Info) Description 01/09/2017 Refill Internal Medicine at [facility] [address] [place] [address] [place] [address] Essential hypertension Social History Tobacco Use Types [...] [facility] - Now using [facility] [place] * Telephone Encounter - Aisha Powers MA - 01/11/2017 12:14 PM EDT Called Pt and left VM. Call is in regards to lisinopril Rx. Need to verify if she wants the [facility] pharmacy, or mail order. And if mail order, which one? Thank you, Mary Powers MA My ext is [phone] documented in this encounter Plan of Treatment Not on file documented as of this encounter Visit Diagnoses Diagnosis Essential hypertension Unspecified essential hypertension documented in this encounter Care Teams Sample Shoe Inspector And Reworker Relationship Specialty Start Date End Date Enoch Medina MD [facility] [address] [place] [address] PCP - General Family Medicine 08/22/20 06/03/21 documented as of this encounter
--- OUTSIDE RECORDS SUMMARY | 2023-11-15 01:01 | XMS_ITS | Encounter Summary ---
Author Organization [facility] [place] [address] Care Team Providers Care Retail Agent Name Role Phone Pita Narayanan MD Primary Care Provider [phone] Reason for Visit * Reason Onset Date Comments Other 02/04/2017 med reconcilliat ion Encounter Details Date Type Department Care Team (Late st Contact Info) Description 02/04/2017 Telephone Internal Medicine at [facility] [address] [place] [phone] Yoly Palacios RN Other (med reconcilliation) Social [...] filedocumented in this encounter Care Teams Retail Agent Relationship Specialty Start Date End Date Pita Narayanan MD [facility] [address] [place] [address] PCP - General General Internal Medicine 01/28/1604/22 documented as of this encounter
--- OUTSIDE RECORDS SUMMARY | 2023-11-15 01:01 | XMS_ITS | Encounter Summary ---
Author Organization [facility] [place] [address] Care Team Providers Care Project Intern Name Role Phone Carlos Alberto Ag MD Primary Care Provider Reason for Visit * Reason Onset Date Comments Other 08/28/2019 Encounter Details Date Type Department Care Team ([facility] st Contact Info) Description 08/28/2019 Telephone [place] [phone] Carmen Vaca [facility] [place] [address] Other Social History Tobacco Use Types Packs/Day [...] Notes * Telephone Encounter - Carmen Vaca [facility] - 08/28/2019 1:30 PM EDT Primary [...] bad experiences in therapy stating I can counselor camp myself. Patient is currently out of work [...] Ag MD [ ] Psychiatrist Medications 08/21/19 1304 Medication Sig Taking? omeprazole (PriLOSEC) 20 mg [...] daily. Please call to schedule an appt: [phone] venlafaxine (EFFEXOR-XR) 150 mg Capsule, Sust. Release [...] National Suicide Prevention Lifeline at (TALK) or [facility] Psychiatry [phone] Carmen Vaca [facility] Behavioral Health Clinician (BHC) Primary Care & Psychiatry Collaborative Care [address] [phone] Clinic [phone] Pager [phone] documented in this encounter Plan of Treatment Not on file documented as of this encounter Visit Diagnoses Not on filedocumented in this encounter Care Teams Project Intern Relationship Specialty Start Date End Date Carlos Alberto Ag MD [facility] [place] [address] PCP - General General Internal Medicine 04/26/17 10/31/19 documented as of this encounter
--- OUTSIDE RECORDS SUMMARY | 2023-11-15 01:01 | XMS_ITS | Encounter Summary ---
Author Organization [facility] [place] [address] Care Team Providers Care Goggles Assembler Name Role Phone Carlos Alberto Ag MD Primary Care Provider Reason for Visit * Reason Comments Follow-up Encounter Details Date Type Department Care Team ([facility] st Contact Info) Description 08/19/2017 2:00 PM EDT Office [place] [phone] Malgorzata Pappas APRN [facility] GENERAL [place] [address] Type 2 diabetes mellitus without complication, without [...] Patient Instructions * Patient Instructions* Malgorzata Pappas, PRODUCTION SUPERINTENDENT HYDRO - 08/19/2017 2:37 PM EDT Images from the original note were not included. Epidermoid Cyst: Care Instructions Your Care Instructions An epidermoid (say it-ouk-LQL-cornellyd) cyst is a lump just under the [...] more? Visit our health information library at [email or web address]. You can also view health information on BetterYou, your personal patient account. Log in or sign uptoday. Enter S615 in the search box to learn more about Epidermoid Cyst: Care Instructions. Current as of: January 30, 2016 Content Version: 11.4 ?? [id number] Method. Care instructions adapted under license by [facility]. If you have questions about a medical condition or this instruction, always ask your healthcare professional. Method disclaims any warranty or liability for your [...] more? Visit our health information library at [email or web address]. You can also view health information on BetterYou, your personal patient account. Log in or sign uptoday. Enter S615 in the search box to learn more about Epidermoid Cyst: Care Instructions. Current as of: January 30, 2016 Content Version: 11.4 ?? [id number] Method. Care instructions adapted under license by [facility]. If you have questions about a medical condition or this instruction, always ask your healthcare professional. 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 Small lesion on mid back for [...] Hemoglobin A1C 6.9(H) 4.3 - 5.6 % [facility] Comment: Reference Range: 4.3 - [...] 1, S67-74 Est Avg Gluc 151 mg/dL [facility] Comment: eAG equivalents [...] into estimated average glucose values. ??Diabetes Care 2008:31(8):3052-4491. Blood specimen (specimen) 08/19/2017 3:27 PM EDT 08/19/2017 3:34 PM EDT Narrative Resulting Agency Comment Spec In Lab Malgorzata Pappas APRN CHEMISTRY ORDERABLES [facility] [place] [address] * (ABNORMAL) Basic Metabolic Panel (non-fasting) (08/19/2017 3:27 PM EDT) Glucose Lvl 234(H) 65 - 199 mg/dL [facility] Comment:Diabetes: >=200 mg/d L plus symptoms BUN 14 8 - 18 mg/dL [facility] Creatinine 0.70 0.70 - 1.20 mg/dL [facility] Sodium 138 135 - 145 mmol/L [facility] Potassium 3.9 3.5 - 5.0 mmol/L [facility] Comment: Please note: ??Patients with WBC >100,000 may have falsely elevated Potassium levels. ??For accurate Potassium quantification in these patients send serum separator tube (gold top) for subsequent determinations. ??Contact the Clinical Chemistry Laboratory if there are any questions. Chloride 98 98 - 107 mmol/L [facility] CO2 26 22 - 31 mmol/L [facility] Anion Gap 14 5 - 15 mmol/L [facility] Calcium 9.0 8.5 - 10.5 mg/dL [facility] Estimated GFR >60 >=60 [facility] Comment: The reported eGFR should be multiplied by 1.2 for patients. The MDRD is not an appropriate measure of renal function for patients with body mass extremes or in patients with acute kidney failure. http://SensGard.Showell - The Simple, Fast and Elegant Tablet Sales App/DHnkdep http://Rong360/DHnkf Blood specimen (specimen) 08/19/2017 3:27 PM EDT 08/19/2017 3:34 PM EDT Narrative Resulting Agency Comment Spec In Lab Malgorzata Pappas APRN CHEMISTRY ORDERABLES [facility] [place] [address] * XR Pelvis w AP & Lat [...] thigh documented in this encounter Care Teams Goggles Assembler Relationship Specialty Start Date End Date Carlos Alberto Ag MD [facility] INTERNAL MEDICINE [place] [id number] PCP - General General Internal Medicine 04/26/17 10/31/19 documented as of this encounter
--- OUTSIDE RECORDS SUMMARY | 2023-11-15 01:01 | XMS_ITS | Encounter Summary ---
Author Organization [facility] [place] [address] Care Team Providers Care Gang Drill Operator Name Role Phone Carlos Alberto Ag MD Primary Care Provider Reason for Visit * Reason Onset Date Comments Medication Refill 05/13/2019 Encounter Details Date Type Department Care Team (Late st Contact Info) Description 05/13/2019 [place] [address] Carlos Alberto Ag MD [facility] [place] [address] Gastroesophageal reflux disease, esophagitis presence not specified [...] specified documented in this encounter Care Teams Gang Drill Operator Relationship Specialty Start Date End Date Carlos Alberto Ag MD [facility] [place] [address] PCP - General General Internal Medicine 04/26/17 10/31/19 documented as of this encounter
--- OUTSIDE RECORDS SUMMARY | 2023-11-15 01:01 | XMS_ITS | Encounter Summary ---
Author Organization [facility] [place] [address] Care Team Providers Care Road Oiling Truck Driver Name Role Phone Carlos Alberto Ag MD Primary Care Provider Encounter Details Date Type Department Care Team (Late st Contact Info) Description 06/23/2018 Telephone [place] [phone] Rosemary Bass Social History Tobacco Use Types [...] on filedocumented in this encounter Care Teams Road Oiling Truck Driver Relationship Specialty Start Date End Date Carlos Alberto Ag MD [facility] [place] [address] PCP - General General Internal Medicine 04/26/17 10/31/19 documented as of this encounter
--- OUTSIDE RECORDS SUMMARY | 2023-11-15 01:01 | XMS_ITS | Encounter Summary ---
Author Organization [facility] Address [facility] [place] [address] Care Team Providers Care Door Liner Helper Name Role Phone Carlos Alberto Ag MD Primary Care Provider Reason for Visit * Reason Comments Medication Refill Encounter Details Date Type Department Care Team ([facility] st Contact Info) Description 04/30/2018 Refill Internal Medicine at [facility] [address] [place] [phone] Carlos Alberto Ag MD [facility] [place] [address] Menstrual disorder Social History Tobacco Use Types [...] Patients PCP is Carlos Alberto Ag MD, [facility] * Telephone Encounter - Ale Moreau [...] tract documented in this encounter Care Teams Door Liner Helper Relationship Specialty Start Date End Date Carlos Alberto Ag MD [facility] [place] [address] PCP - General General Internal Medicine 04/26/17 10/31/19 documented as of this encounter
--- OUTSIDE RECORDS SUMMARY | 2023-11-15 01:01 | XMS_ITS | Encounter Summary ---
Author Organization [facility] [place] [address] Care Team Providers Care Obstetrics Scrub Nurse Name Role Phone Carlos Alberto Ag MD Primary Care Provider Encounter Details Date Type Department Care Team (Latest Contact Info) Description 06/03/2017 9:25 AM EST Laboratory Appointment Lab [address]L [facility] [place] [phone] Hypertension, unspecified type; Type 2 diabetes mellitus [...] A1C 7.2(H) 4.3 - 5.6 % [facility] Comment: Reference Range: 4.3 - [...] 1, S67-74 Est Avg Gluc 160 mg/dL [facility] Comment: eAG equivalents for HbA1c [...] into estimated average glucose values. ??Diabetes Care 2008:31(8):3484-6472. Blood specimen (specimen) 06/03/2017 9:44 AM EST 06/03/2017 9:51 AM EST Narrative Resulting Agency Comment Spec In Lab Jacqueline Cleveland MD CHEMISTRY ORDERABLES Performing Organization Address City/[facility]/ZIP Co de Phone Number [facility] [place] [address] * (ABNORMAL) Basic Metabolic Panel (non-fasting) (06/03/2017 9:44 AM EST) Glucose Lvl 177 65 - 199 mg/dL [facility] Comment:Diabetes: >=200 mg/d L plus symptoms BUN 16 8 - 18 mg/dL [facility] Creatinine 0.68(L) 0.70 - 1.20 mg/dL [facility] Sodium 140 135 - 145 mmol/L [facility] Potassium 4.0 3.5 - 5.0 mmol/L [facility] Comment: Please note: ??Patients with WBC >100,000 may have falsely elevated Potassium levels. ??For accurate Potassium quantification in these patients send serum separator tube (gold top) for subsequent determinations. ??Contact the Clinical Chemistry Laboratory if there are any questions. Chloride 99 98 - 107 mmol/L [facility] CO2 27 22 - 31 mmol/L [facility] Anion Gap 14 5 - 15 mmol/L [facility] Calcium 9.0 8.5 - 10.5 mg/dL [facility] Estimated GFR >60 >=60 [facility] Comment: The reported eGFR should be multiplied by 1.2 for patients. The MDRD is not an appropriate measure of renal function for patients with body mass extremes or in patients with acute kidney failure. http://Gnarus Systems.SkillBridge/DHnkdep http://Gnarus Systems.SkillBridge/DHMCnkf Blood specimen (specimen) 06/03/2017 9:44 AM EST 06/03/2017 9:51 AM EST Narrative Resulting Agency Comment Spec In Lab Jacqueline Cleveland MD CHEMISTRY ORDERABLES Performing Organization Address City/[facility]/ZIP Co de Phone Number [facility] [place] [address] * U Albumin/Cre Ratio (06/03/2017 9:41 AM EST) Alb/Cr Ratio, Random Not Calculated 0 - 29 mcg/mg Cr [facility] Comment: Reference Ranges: <30 mcg/mg: [...] U Albumin Conc, Random <3.0 mg/L [facility] U Creatinine 120 mg/dL [facility] Urine specimen (specimen) 06/03/2017 9:41 AM EST 06/03/2017 9:51 AM EST Narrative Resulting Agency Comment Spec In Lab Jacqueline Cleveland MD URINE ORDERABLES [facility] [place] [address] documented in this encounter Visit Diagnoses Diagnosis Hypertension, unspecified type Type 2 diabetes mellitus without complication, without long-term current use of insulin documented in this encounter Care Teams Obstetrics Scrub Nurse Relationship Specialty Start Date End Date Carlos Alberto Ag MD [facility] GENER[facility] [place] [address] PCP - General General Internal Medicine 04/26/17 10/31/19 documented as of this encounter
--- OUTSIDE RECORDS SUMMARY | 2023-11-15 01:01 | XMS_ITS | Encounter Summary ---
Author Organization [facility] [place] [place] [address] Care Team Providers Care Glassine Machine Tender Name Role Phone Enoch Medina MD Primary Care Provider [phone] Reason for Visit * Reason Comments Medication Refill Encounter Details Date Type Department Care Team ([facility] st Contact Info) Description 10/16/2016 Refill Internal Medicine at [facility] [address] [place] [address] Pita Narayanan MD [facility] [place] [address] Essential hypertension Social History Tobacco Use Types [...] hypertension documented in this encounter Care Teams Glassine Machine Tender Relationship Specialty Start Date End Date Enoch Medina MD [facility] [place] [address] PCP - General Family Medicine 08/22/20 06/03/21 documented as of this encounter
--- OUTSIDE RECORDS SUMMARY | 2023-11-15 01:01 | XMS_ITS | Encounter Summary ---
Author Organization [facility] [place] [address] Care Team Providers Care Human Performance Consultant Name Role Phone Carlos Alberto Ag MD Primary Care Provider Encounter Details Date Type Department Care Team (Late st Contact Info) Description 12/14/2018 Telephone [place] [phone] Sofia Fritz Social History Tobacco Use Types [...] on filedocumented in this encounter Care Teams Human Performance Consultant Relationship Specialty Start Date End Date Carlos Alberto Ag MD [facility] GENER[facility] INTER[place] [address] PCP - General General Internal Medicine 04/26/17 10/31/19 documented as of this encounter
--- OUTSIDE RECORDS SUMMARY | 2023-11-15 01:01 | XMS_ITS | Encounter Summary ---
Author Organization [facility] [place] [address] Care Team Providers Care Order Packer Or Packager Name Role Phone Carlos Alberto Ag MD Primary Care Provider Reason for Visit * Reason Onset Date Comments Medication Refill 08/15/2019 Encounter Details Date Type Department Care Team (Late st Contact Info) Description 08/15/2019 [place] [address] Carlos Alberto Ag MD [facility] [place] [address] Gastroesophageal reflux disease, esophagitis presence not specified; [...] hypertension documented in this encounter Care Teams Order Packer Or Packager Relationship Specialty Start Date End Date Carlos Alberto Ag MD [facility] [place] [address] PCP - General General Internal Medicine 04/26/17 10/31/19 documented as of this encounter
--- OUTSIDE RECORDS SUMMARY | 2023-11-15 01:01 | XMS_ITS | Encounter Summary ---
Author Organization [facility] Address [facility] [place] [address] Care Team Providers Care Embossing Unit Operator Name Role Phone Pita Narayanan MD Primary Care Provider [phone] Reason for Visit * Reason Comments Follow-up DM; has lump under s kin in left armpit, first noticed about 2 wks ago, getting larger and moving forward; discuss venlafaxine dosage, increase?; did Depo at home on [facility] Encounter Details Date Type Department Care Team (Late st Contact Info) Description 08/20/2016 2:30 PM EDT Office Visit Internal Medicine at [address] [address] Pita Narayanan MD [facility] [place] [address] Uncontrolled type 2 diabetes mellitus without complication, [...] Clinician follow up: 3 months [] Certified Echo Technologist/Endocrine follow up/referral: [x] Referrals/Labs/Testing: up to date [...] planning Schedule change for 1-2 months, about senior living through this Was working 6 days with [...] Clinician follow up: 3 months [] Certified Echo Technologist/Endocrine follow up/referral: [x] Referrals/Labs/Testing: up to date [...] hypertension documented in this encounter Care Teams Embossing Unit Operator Relationship Specialty Start Date End Date Pita Narayanan MD [facility] [place] [address] PCP - General General Internal Medicine 01/28/1604/22 documented as of this encounter
--- OUTSIDE RECORDS SUMMARY | 2023-11-15 01:01 | XMS_ITS | Encounter Summary ---
Author Organization [facility]ly [facility] [place] [address] Care Team Providers Care Clinical Molecular Geneticist Name Role Phone Carlos Alberto Ag MD Primary Care Provider Reason for Visit * Reason Onset Date Comments Prior Authorization 08/09/2018 Venlafaxine Encounter Details Date Type Department Care Team (Late st Contact Info) Description 08/09/2018 Telephone Internal Medicine at [place] [address] [place] [phone] Padma Miller CMA Prior Authorization (Venlafaxine) Social [...] Authorization for Primary [place] [address] Request received via: Pharmacy Patient: Sarah Ninoska Moncada Patient : 1980 Subscriber Insurance: [place] Medicaid Insurance Phone #: Sent via: [facility] Thomas/Fax#: [id number] Physician: Carlos Alberto Ag MD Medication Requested: venlafaxine (EFFEXOR-XR) 75 mg Capsule, Sust. Release 24 hr Frequency/Sig: TAKE 3 CAPSULES BY MOUTH DAILY Disp.: 180 Refills: 3 Currently taking: yes If yes, how lon04/2016 Diagnosis for this medication: Depression, unspecified depression type (F32.9); Anxiety (F41.9) Prior medications trialed in this patient: Medication: sertraline 25 mg Approx Dates: 4378-6673 Outcome/Adverse Reactions: inadequate response Medication: fluoxetine 10 mg Approx Dates: 2016 Outcome/Adverse Reactions: inadequate response Medication: wellbutrin Approx Dates: 2016 Outcome/Adverse Reactions: inadequate response documented in this encounter Plan of Treatment Not on file documented as of this encounter Visit Diagnoses Not on filedocumented in this encounter Care Teams Clinical Molecular Geneticist Relationship Specialty Start Date End Date Carlos Alberto Ag MD [facility] [address] PCP - General General Internal Medicine 04/26/17 10/31/19 documented as of this encounter
--- OUTSIDE RECORDS SUMMARY | 2023-11-15 01:01 | XMS_ITS | Encounter Summary ---
Author Organization [facility]ly [facility] [place] [address] Care Team Providers Care Health Insurance Sales Agent Name Role Phone Carlos Alberto Ag MD Primary Care Provider Reason for Visit * Reason Onset Date Comments Medication Refill 07/07/2019 Encounter Details Date Type Department Care Team (Late st Contact Info) Description 07/07/2019 [place] [address] Carlos Alberto Ag MD [facility] [place] [address] Essential hypertension; Uncontrolled type 2 diabetes mellitus [...] insulin documented in this encounter Care Teams Health Insurance Sales Agent Relationship Specialty Start Date End Date Carlos Alberto Ag MD [facility] [place] [address] PCP - General General Internal Medicine 04/26/17 10/31/19 documented as of this encounter
--- OUTSIDE RECORDS SUMMARY | 2023-11-15 01:01 | XMS_ITS | Encounter Summary ---
Author Organization [facility] [place] [address] Care Team Providers Care Cryptoanalysis Teacher Name Role Phone Pita Narayanan MD Primary Care Provider [phone] Reason for Visit * Reason Onset Date Comments Medication Problem 01/12/2017 depo-provara Encounter Details Date Type Department Care Team (Late st Contact Info) Description 01/12/2017 Refill Internal Medicine at [facility] [address] [place] [address] Edel Rubi Social History Tobacco Use Types [...] EDT Spoke with Keira at [facility]. She did actually receive the 104mg Depo [...] 8:09 AM EDT Spoke with [facility] pharmacist. Patient's current prescription for Depo-Provara is [...] - 01/12/2017 3:16 PM EDT [facility] Percy [place] called to say that the depo-prevara is on back on order is there something else we want to prescribe? Pt is due in 4 days documented in this encounter Plan of Treatment Not on file documented as of this encounter Visit Diagnoses Not on filedocumented in this encounter Care Teams Cryptoanalysis Teacher Relationship Specialty Start Date End Date Pita Narayanan MD [facility] [place] [address] PCP - General General Internal Medicine 01/28/1604/22 documented as of this encounter
--- OUTSIDE RECORDS SUMMARY | 2023-11-15 01:01 | XMS_ITS | Encounter Summary ---
Author Organization [facility] [place] [address] Care Team Providers Care Switchboard Wire Worker Helper Name Role Phone Carlos Alberto Ag MD Primary Care Provider Reason for Visit * Reason Onset Date Comments Other 08/22/2019 Encounter Details Date Type Department Care Team ([facility] st Contact Info) Description 08/22/2019 Telephone [place] [phone] Carmen Vaca [facility] [place] [address] Other Social History Tobacco Use Types Packs/Day [...] Notes * Telephone Encounter - Carmen Vaca [facility] - 08/22/2019 10:54 AM EDT Primary Care & Psychiatry Collaborative Care Called to follow up on referral from Dr[facility]. Plan to sent my message as well to connect and follow up on mental health symptoms. Carmen Vaca M.S., [facility] Behavioral Health Clinician (BHC) Primary Care & Psychiatry Collaborative Care [facility] Direct # [phone] Clinic#: [phone] Pager [phone] documented in this encounter Plan of Treatment Not on file documented as of this encounter Visit Diagnoses Not on filedocumented in this encounter Care Teams Switchboard Wire Worker Helper Relationship Specialty Start Date End Date Carlos Alberto Ag MD [facility] [place] [address] PCP - General General Internal Medicine 04/26/17 10/31/19 documented as of this encounter
--- OUTSIDE RECORDS SUMMARY | 2023-11-15 01:01 | XMS_ITS | Encounter Summary ---
Author Organization [facility] [place] [address] Care Team Providers Care Ecology Teacher Name Role Phone Carlos Alberto Ag MD Primary Care Provider Reason for Visit * Reason Onset Date Comments Medication Refill 11/16/2018 Encounter Details Date Type Department Care Team (Late st Contact Info) Description 11/16/2018 [place] [address] Carlos Albetro Ag MD [facility] [place] [address] Gastroesophageal reflux disease, esophagitis presence not specified; [...] hypertension documented in this encounter Care Teams Ecology Teacher Relationship Specialty Start Date End Date Carlos Alberto Ag MD [facility] [address] [place] [address] PCP - General General Internal Medicine 04/26/17 10/31/19 documented as of this encounter
--- OUTSIDE RECORDS SUMMARY | 2023-11-15 01:01 | XMS_ITS | Encounter Summary ---
Author Organization [facility] [place] [address] Care Team Providers Care A/C Tech Name Role Phone Carlos Alberto Ag MD Primary Care Provider Encounter Details Date Type Department Care Team (Late st Contact Info) Description 08/09/2018 Orders Only Internal Medicine at [facility] [place] [address] Carlos Alberto Ag MD [facility] [place] [address] Social History Tobacco Use Types Packs/Day Years [...] on filedocumented in this encounter Care Teams A/C Tech Relationship Specialty Start Date End Date Carlos Alberto Ag MD [facility] [place] [address] PCP - General General Internal Medicine 04/26/17 10/31/19 documented as of this encounter
--- OUTSIDE RECORDS SUMMARY | 2023-11-15 01:01 | XMS_ITS | Encounter Summary ---
Author Organization [facility] [place] [address] Care Team Providers Care Equipment Mechanic Name Role Phone Carlos Alberto Ag MD Primary Care Provider Encounter Details Date Type Department Care Team (Late st Contact Info) Description 03/30/2019 Orders [place] [address] [facility] [address] [place] [address] Essential hypertension; Uncontrolled type 2 diabetes mellitus [...] tract documented in this encounter Care Teams Equipment Mechanic Relationship Specialty Start Date End Date Carlos Alberto Ag MD [facility] [address] [place] [address] PCP - General General Internal Medicine 04/26/17 10/31/19 documented as of this encounter
--- OUTSIDE RECORDS SUMMARY | 2023-11-15 01:01 | XMS_ITS | Encounter Summary ---
Author Organization [facility] [place] [address] Care Team Providers Care Research Staff Member Name Role Phone Carlos Alberto Ag MD Primary Care Provider Reason for Visit * Reason Comments Medication Refill Encounter Details Date Type Department Care Team (Late st Contact Info) Description 02/20/2019 Ref[place] [address] Carlos Alberto Ag MD [facility] [address] [address] Gastroesophageal reflux disease, esophagitis presence not specified [...] specified documented in this encounter Care Teams Research Staff Member Relationship Specialty Start Date End Date Carlos Alberto Ag MD [facility] [address] [place] [address] PCP - General General Internal Medicine 04/26/17 10/31/19 documented as of this encounter
--- OUTSIDE RECORDS SUMMARY | 2023-11-15 01:01 | XMS_ITS | Encounter Summary ---
Author Organization [facility]ly [facility] Address [facility] [place] [address] Care Team Providers Care Chocolate Finisher Name Role Phone Carlos Alberto Ag MD Primary Care Provider Encounter Details Date Type Department Care Team (Latest Contact Info) Description 08/19/2017 2:44 PM EDT - 08/19/2017 11:59 PM EDT Hospital Encounter XRay at [address] [place] [address] Malgorzata Pappas, DRUM CARRIER [facility] [place] [address] Pain in right hip Discharge Disposition: Home [...] thigh documented in this encounter Care Teams Chocolate Finisher Relationship Specialty Start Date End Date Carlos Alberto Ag MD [facility] [place] [address] PCP - General General Internal Medicine 04/26/17 10/31/19 documented as of this encounter
--- OUTSIDE RECORDS SUMMARY | 2023-11-15 01:01 | XMS_ITS | Encounter Summary ---
Author Organization [facility] Address [facility] [place] [address] Care Team Providers Care Nutrition Internship Name Role Phone Enoch Medina MD Primary Care Provider [phone] Reason for Visit * Reason Onset Date Comments Medication Refill 03/30/2019 Encounter Details Date Type Department Care Team (Late st Contact Info) Description 03/30/2019 Refill Internal Medicine at [facility] [address] [place] [address] Carlos Alberto Ag MD [facility] [place] [address] Menstrual disorder; Essential hypertension; Uncontrolled type 2 [...] insulin documented in this encounter Care Teams Nutrition Internship Relationship Specialty Start Date End Date Enoch Medina MD [facility] DR [facility] [place] [address] PCP - General Family Medicine 08/22/20 06/03/21 documented as of this encounter
--- OUTSIDE RECORDS SUMMARY | 2023-11-15 01:01 | XMS_ITS | Encounter Summary ---
Author Organization [facility] [place] [address] Care Team Providers Care Manufacturing Engineer Supervisor Name Role Phone Carlos Alberto Ag MD Primary Care Provider Encounter Details Date Type Department Care Team (Late st Contact Info) Description 06/03/2017 Telephone [place] [phone] Carlos Alberto Ag MD [facility] [place] [address] Social History Tobacco Use Types Packs/Day Years [...] on filedocumented in this encounter Care Teams Manufacturing Engineer Supervisor Relationship Specialty Start Date End Date Carlos Alberto Ag MD [facility] [place] [address] PCP - General General Internal Medicine 04/26/17 10/31/19 documented as of this encounter
--- OUTSIDE RECORDS SUMMARY | 2023-11-15 01:01 | XMS_ITS | Encounter Summary ---
Author Organization [facility] Address [facility] [place] [address] Care Team Providers Care Bi Lead Name Role Phone Enoch Medina MD Primary Care Provider [phone] Reason for Visit * Reason Onset Date Comments Medication Refill 03/24/2019 Encounter Details Date Type Department Care Team (Late st Contact Info) Description 03/24/2019 Refill Internal Medicine at [facility] [address] [place] [address] Carlos Alberto Ag MD [facility] [place] [address] Menstrual disorder; Essential hypertension; Uncontrolled type 2 [...] insulin documented in this encounter Care Teams Bi Lead Relationship Specialty Start Date End Date Enoch Medina MD [facility] DR [facility] [place] [address] PCP - General Family Medicine 08/22/20 06/03/21 documented as of this encounter
--- OUTSIDE RECORDS SUMMARY | 2023-11-15 01:01 | XMS_ITS | Encounter Summary ---
Author Organization [facility] [place] [address] Care Team Providers Care Mud Car Worker Name Role Phone Carlos Alberto Ag MD Primary Care Provider Reason for Visit * Reason Comments Urinary Tract Infection Encounter Details Date Type Department Care Team ([facility] st Contact Info) Description 12/31/2017 1:40 PM EDT Office [place] [address] Malgorzata Pappas APRN [facility] GENER[facility] [place] [address] Urinary urgency; Dysuria Social History Tobacco Use [...] Patient Instructions * Patient Instructions* Malgorzata Pappas, CYLINDER DIE MACHINE HELPER - 12/31/2017 2:17 PM EDT Images from [...] Where can you learn more? Visit our [employer] information library at [email or web address]. You can also view health information on [employer], your personal patient account. Log in or sign uptoday. Enter H814 in the search box to learn more about Painful Urination (Dysuria): Care Instructions. Current as of: August 28, 2016 Content Version: 11.7 ?? 7004-1001 [employer]. Care instructions adapted under license by [facility]. If you have questions about a medical condition or this instruction, always ask your healthcare professional. [employer] disclaims any warranty or liability for your [...] tract infection, submit a new specimen. (A) [facility] Urine specimen obtained by clean catch procedure (specimen) 12/31/2017 2:20 PM EDT 12/31/2017 3:07 PM EDT Narrative Resulting Agency Comment Spec In Lab Malgorzata Pappas APRN MICROBIOLOGY - GENER AL ORDERABLES [facility] [place] [address] * (ABNORMAL) Urinalysis Microscopic Exam (12/31/2017 2:20 PM EDT) RBC UA 3 0 - 4 /HPF [facility] WBC UA 24(H) 0 - 5 /HPF [facility] Bacteria UA Occasional (A) None /HPF [facility] Squam Epith UA 24(H) <=4 /HPF [facility] Trans Epith UA <1 <=1 /HPF [facility] Renal Epith UA <1(H) <=0 /HPF [facility] Urine specimen obtained by clean catch procedure (specimen) 12/31/2017 2:20 PM EDT 12/31/2017 2:40 PM EDT Narrative Resulting Agency Comment Spec In Lab Malgorzata Pappas APRN URINE ORDERABLES Performing Organization Address [facility] [place] Co de Phone Number [facility] [place] [address] * (ABNORMAL) Urinalysis with reflex Culture (12/31/2017 2:20 PM EDT) Glucose UA Negative Negative mg/dL [facility] Protein UA 100(A) Negative mg/dL [facility] Bilirubin UA Negative Negative mg/dL [facility] Comment: Clinical correlation required for positive Urine Bilirubin results as false positive may occur with some drugs and drug related products. If a false positive is suspected a serum total bilirubin should be considered if clinically indicated. Urobilinogen UA Normal Normal mg/dL [facility] pH UA 5.0 5.0 - 8.0 [facility] Blood UA Negative Negative mg/dL [facility] Ketones UA 5(A) Negative mg/dL [facility] Nitrite UA Negative Negative [facility] Leukocytes UA Large(A) Negative [facility] Appearance UA Cloudy(A) Clear [facility] Spec [place] UA 1.028 1.002 - 1.030 [facility] Color UA Azeb Yellow [facility] Culture Reflexed Yes [facility] Urine specimen obtained by clean catch procedure (specimen) 12/31/2017 2:20 PM EDT 12/31/2017 2:40 PM EDT Narrative Resulting Agency Comment Spec In Lab Malgorzata Pappas APRN URINE ORDERABLES Performing Organization Address [facility] [place]/State/ZIP Co de Phone Number [facility] [place] [address] documented in this encounter Visit Diagnoses Diagnosis Urinary urgency Urgency of urination Dysuria documented in this encounter Care Teams Mud Car Worker Relationship Specialty Start Date End Date Carlos Alberto Ag MD [facility] [place] [address] PCP - General General Internal Medicine 04/26/17 10/31/19 documented as of this encounter
--- OUTSIDE RECORDS SUMMARY | 2023-11-15 01:01 | XMS_ITS | Encounter Summary ---
Author Organization [facility] [place] [address] Care Team Providers Care Welfare Investigator Name Role Phone Pita Narayanan MD Primary Care Provider [phone] Reason for Visit * Reason Comments Gynecologic Exam Encounter Details Date Type Department Care Team ([facility] Contact Info) Description 03/05/2017 9:00 AM EST Office Visit Internal Medicine at [facility] [address] [place] [address] Rosalva Cardenas, [facility] GENERAL [place] [address] Encounter for screening for cervical cancer Social [...] HPI Sarah is here today for a MACHINE SIZER exam/pap only She saw her PCP, Pita [...] REMOVE Please contact the Blood Bank at [phone] for questions. Outpatient Prescriptions Marked as Taking [...] Comments HPV Routine 03/05/2017 9:28 AM EST MACHINE SIZER CYTOLOGY INTERPRETATION Routine 03/05/2017 9:28 AM EST MACHINE SIZER CYTOLOGY FINAL REPORT Routine 03/05/2017 9:28 AM EST CYTOPATHOLOGY GYNECOLOGICAL Routine 03/05/2017 9:28 AM EST Encounter for screening for cervical cancer documented in this encounter Results * Senior Quality Control Inspector Cytology Final Report (03/05/2017 9:28 AM EST) Senior Quality Control Inspector Cytology Final Report [id number] ? Location: [facility] The signing pathologist has (i) examined the relevant preparation(s) for the specimen(s) and (ii) rendered or confirmed the diagnosis(es). . ? Senior Quality Control Inspector Final DIAGNOSIS Normal Negative for Intraepithelial Lesion or Malignancy (NILM). For consensus guidelines for the management of cervical cancer screening test results, please see: ?? http://www.asccp.o rg . Electronically signed by: ??Supriya REYNOSO(ASCP)Colene Verified: ??03/17/2017 ?Transplanter Orchid Performed at: ??-[facility] Dept. of Pathology, [place], [place] HPV RESULTS HPV16 (Result) ?Negative HPV18 [...] intended to detect low risk HPV types. BiometryCloud kira HPV test Specimen: HPV Testing - Cytology Liquid Based Prep The Antonia kira ? HPV test was validated, performed and results reported through the Laboratory for Clinical Genomics and Advanced Technology (CGAT) at [facility]. ? - Marvin Lorenzana, PhD, [facility], Director-[facility] STATEMENT OF ADEQUACY Specimen submitted is satisfactory. Endocervical component present. CLINICAL INFORMATION HPV Option: ?Concurrent HPV and Pap Preparation: ? Liquid based Pap Specimen Source: ? Cervical/Endocervi loni LMP: ? n/a Hormones?: ? Yes Hysterectomy?: ? No ?: ? No ?: ? No I.U.D.?: ? No Pelvic Radiation: ?No Prior MACHINE SIZER Therapy?: ?No Hist Abnl Pap/Biopsy?: ?? No Hist of HPV Vaccine?: ?No Hist of Smoking?: ?No Hist of NIKHIL exposure?: ?? No ICD Diagnosis: ? Z12.4 Encounter for screening for malignant neoplasm of cervix Clinical Data, Significant Therapy and Clinical Impression ?? : . CLINICAL INFORMATION ?_ This Pap Test has been evaluated with the assistance of the BootstrapLabsPrep Pap Test Imaging System. Note: The Pap test is a screening test for cervical cancer with an inherent false-negative rate dependent upon several variables. ??For further information please contact the [facility] Laboratory. Reference: ??Amanda CS. ??Book Or Script Editor of Pap Smear Results. ??In: ??Barbara BS, [facility], ed. ??The Pap Smear. ??[place]: ??[place], 2002: ??71-77. [facility] 03/05/2017 9:28 AM EST Rosalva L Beaupre RIG BUILDER PATHOLOGY/CYTOLOGY O RDERABLES Performing Organization Address [facility] de Phone Number [facility] [place] [address] * MACHINE SIZER Cytology Interpretation (03/05/2017 9:28 AM EST) Senior Quality Control Inspector Cytology Interpretation NILM [facility] Comment:Senior Quality Control Inspector Cytology Final R eport Endocervical Component Present [facility] AP Specimen 03/05/2017 9:28 AM EST 03/17/2017 6:12 PM EST Rosalva L Beaupre RIG BUILDER PATHOLOGY/CYTOLOGY O RDERABLES Performing Organization Address [facility] Co de Phone Number [facility] [place] [address] * HPV (03/05/2017 9:28 AM EST) HPV 16 NEGATIVE NEGATIVE [facility] HPV 18 NEGATIVE NEGATIVE [facility] HPV Other HR NEGATIVE NEGATIVE [facility] HPV Interpretation See Comment [facility] Comment: NEGATIVE for high-risk HPV [...] Comment Spec In Lab Rosalva L Beaupre RIG BUILDER PATHOLOGY/CYTOLOGY O RDERAPEARL Performing Organization Address [facility] Co de Phone Number [facility] [place] [address] * Cytopathology Gynecological (03/05/2017 9:28 AM EST) AP Specimen 03/05/2017 9:28 AM EST 03/05/2017 1:28 PM EST Narrative [facility] - 03/05/2017 1:28 PM EST Specimen requisition ordered. ??Separate Pathology report to follow Resulting Agency Comment Spec In Lab Rosalva L Beaupre RIG BUILDER PATHOLOGY/CYTOLOGY O RDERAPEARL Performing Organization Address City/[facility] [place] [address] documented in this encounter Visit Diagnoses Diagnosis Encounter for screening for cervical cancer documented in this encounter Care Teams Welfare Investigator Relationship Specialty Start Date End Date Pita Narayanan MD [facility] [address] [place] [place] [address] PCP - General General Internal Medicine 01/28/1604/22 documented as of this encounter
--- OUTSIDE RECORDS SUMMARY | 2023-11-15 01:01 | XMS_ITS | Encounter Summary ---
Author Organization [facility] [place] [address] Care Team Providers Care Archaeology Professor Name Role Phone Pita Narayanan MD Primary Care Provider [phone] Encounter Details Date Type Department Care Team (Latest Contact Info) Description 03/05/2017 8:10 AM EST Laboratory Appointment Lab at [place] [address] [place] [id number] Dyslipidemia; Uncontrolled type 2 diabetes mellitus without [...] EST) HepB Surface Ab Quant <3.5 IU/L [facility] Comment: HepB Surface Ab Quant: Unvaccinated: < 8.5 IU/L Vaccinated: > 11.5 IU/L HepB Surface Ab Negative [facility] Comment: Patient is presumed to be not vaccinated or immune to HBV infection. Expected Results: Vaccinated: Positive Unvaccinated: Negative Blood specimen (specimen) 03/05/2017 8:17 AM EST 03/05/2017 9:56 AM EST Narrative Resulting Agency Comment Spec In Lab Pita Narayanan MD IMMUNOLOGY ORDERABLE S [facility] [place] [address] * (ABNORMAL) Lipid Panel (03/05/2017 8:17 AM EST) Chol, Total 166 <=239 mg/dL [facility] Triglycerides 309(H) <=199 mg/dL [facility] HDL 32(L) >=40 mg/dL [facility] LDL Cholesterol 72 <=190 mg/dL [facility] Chol/HDL Ratio 5.2 ratio [facility] Lipid Interpretation See Note [facility] Comment: Lipid management should be guided by a patient? s ASCVD risk, goals and preferences. ACC/AHA Guidelines recommend high intensity statin if clinical ASCVD or LDL greater than or equal to 190 mg/dL. http://Stamp.it.com/GBJ-ZAF-Yqtpuvwys Adults aged 40-75 with LDL 70-189 mg/dL should have their 10 year ASCVD risk estimated with the ACC/AHA ASCVD risk podiatry professor http://tools.acc.org/VASQV-Zwxd-Kzwtxdrgl/ Statin should be discussed if risk greater [...] In Lab Pita Narayanan MD CHEMISTRY ORDERABLES [facility] [place] [address] documented in this encounter Visit Diagnoses Diagnosis Dyslipidemia Other and unspecified hyperlipidemia Uncontrolled type 2 diabetes mellitus without complication, without long-term current use of insulin Healthcare maintenance Routine general medical examination at a health care facility documented in this encounter Care Teams Archaeology Professor Relationship Specialty Start Date End Date Pita Narayanan MD [facility] [place] [address] PCP - General General Internal Medicine 01/28/1604/22 documented as of this encounter
--- OUTSIDE RECORDS SUMMARY | 2023-11-15 01:01 | XMS_ITS | Encounter Summary ---
Author Organization [facility] [place] [address] Care Team Providers Care Manager Of Revenue Name Role Phone Carlos Alberto Ag MD Primary Care Provider Encounter Details Date Type Department Care Team (Late st Contact Info) Description 10/27/2018 Telephone [place] [phone] Nela Haines Social History Tobacco Use Types [...] filedocumented in this encounter Care Teams Manager Of Revenue Relationship Specialty Start Date End Date Carlos Alberto Ag MD [facility] [place] [address] PCP - General General Internal Medicine 04/26/17 10/31/19 documented as of this encounter
--- OUTSIDE RECORDS SUMMARY | 2023-11-15 01:01 | XMS_ITS | Encounter Summary ---
Author Organization [facility] [place] [address] Care Team Providers Care Salon/Spa Manager Name Role Phone Carlos Alberto Ag MD Primary Care Provider Reason for Referral * Consultation (Urgent) - Closed Specialty Diagnoses / Procedures Referred By Contac t Referred To Contact Internal Medicine Diagnoses Severe episode of recurrent major depressive disorder, without psychotic features Carlos Alberto Ag MD [facility] [place] [address] [address] Referral ID Status Reason Start Date Expiration Date V isits Requested Visits Authorized [id number] Closed Specialty Service Requested 08/21/2019 08/20/2020 1 1 Reason for Visit * Reason Comments Medication Check refills needed. No o ther concerns at this time. Encounter Details Date Type Department Care Team (Late st Contact Info) Description 08/21/2019 1:30 PM EDT TH Visit (TeleHealth) [place] [address] Carlos Alberto Ag MD [facility] [place] [address] Gastroesophageal reflux disease, esophagitis presence [...] at the time of the phone call: [facility](document location including state) Contact information [address] [facility] [address] (M) [phone] (H) Call start time: 2:02 pm Reason [...] daily. Please call to schedule an appt: [phone] Yes venlafaxine (EFFEXOR-XR) 150 mg Capsule, Sust. [...] phone speaks with every day. Works for [employer]. Thinking that world would be better off if she wasn't there. Has been feeling like this for a couple months. COVID is making things worse. Mother is a big stressor for her and she has tried to avoid her. Single mom, lots of stress, holds a lot in. Last year had plan all set and a guarav she was dating talked her out of [...] for watching her children.Will reach out to [facility] to check in this week which patient [...] stop -Reach out to Carmen Vaca and [facility] #HTN -Refill lisinopril 10 mg QD #Seasonal allergies -Refill claritin prn Carlos Alberto Ag MD Total time spent associated with the visit including patient discussion and pre/post visit chart activities: 45 minutes Telephone/Telehealth visit codes: Established Patient New Patient 63908 (10 minute visit) 94246 (10 minute visit) 40430 (15 minute visit) 42840 (20 minute visit) 24327 (25 minute visit) 99516 (30 minute visit) 73320 (40 minute visit) 32253 (45 minute visit) 70652 (60 minute visit) * Jacqueline Cleveland MD - 08/21/2019 1:30 PM EDT I was physically present in the clinic and discussed the case with the resident [id number] at thetime of the visit or immediately [...] she would welcome a reach out from [facility] Plan cont effexor taper and start prozac [...] unspecified documented in this encounter Care Teams Salon/Spa Manager Relationship Specialty Start Date End Date Carlos Alberto Ag MD [facility] [place] [address] PCP - General General Internal Medicine 04/26/17 10/31/19 documented as of this encounter
--- OUTSIDE RECORDS SUMMARY | 2023-11-15 01:01 | XMS_ITS | Encounter Summary ---
Author Organization [facility] [place] [address] Care Team Providers Care Getter Operator Name Role Phone Carlos Alberto Ag MD Primary Care Provider Reason for Visit * Reason Comments Medication Refill Encounter Details Date Type Department Care Team ([facility] st Contact Info) Description 10/14/2017 3:00 PM EDT Office [place] [phone] Malgorzata Pappas APRN [facility] [place] [address] Depression, unspecified depression type; Anxiety; Fatigue due [...] Patient Instructions * Patient Instructions* Malgorzata Pappas, ACTING PROFESSOR - 10/14/2017 3:24 PM EDT Images from [...] movie or concert. Take part in a moravian activity or other social gathering. Go to [...] the numbers for these national suicide hotlines: 4-735-287-TALK ( ) and 4-148-BDIZKKG ( ). If you or someone you [...] Where can you learn more? Visit our Snaptrip information library at [email or web address] Disho. You can also view health information on [employer], your personal patient account. Log in or sign uptoday. Enter N529 in the search box to learn more about Recovering From Depression: Care Instructions. Current as of: March 25, 2017 Content Version: 11.7 ?? [id number] [employer]. Care instructions adapted under license by [facility]. If you have questions about a medical condition or this instruction, always ask your healthcare professional. [employer] disclaims any warranty or liability for your [...] low dose and she will communicate via [facility] on how she is doing, reviewed plan [...] (ANC) 3.98 1.70 - 6.10 x10(3)/ L [facility] Lymphocytes % 44.4 % [facility] Lymphocytes Abs 3.8(H) 0.9 - 3.2 x10(3)/ L [facility] Monocytes % 5.7 % [facility] Monocyte Abs 0.5 0.3 - 0.9 x10(3)/[facility]AT[facility] Eosinophils % 2.9 % [facility] Eosinophils Abs 0.2 0.0 - 0.4 x10(3)/ L [facility] Basophils % 0.5 % [facility] Basophils Abs 0.0 0.0 - 0.1 x10(3)/ L [facility] Immature Gran % 0.30 % [facility] Comment: Immature granulocytes(IG's)percentage and absolute count will include metamyelocytes, myelocytes, and promyelocytes. Blood smears from CBCs yielding IG's will be scanned manually for concordance. If this scan disagrees with the automated IG or if promyelocytes are noted, a manual differential will be performed. Rebecca Gran Abs 0.03 0.00 - 0.04 x10(3)/ L [facility] Blood specimen (specimen) 10/14/2017 3:46 PM EDT 10/14/2017 3:52 PM EDT Narrative Resulting Agency Comment Spec In Lab Malgorzata Pappas ACTING PROFESSOR HEMATOLOGY ORDERABLE S [facility] [place] [address] * (ABNORMAL) Hemogram (10/14/2017 3:46 PM EDT) WBC 8.6 4.0 - 9.5 x10(3)/[facility]AT[facility] RBC 4.34 4.00 - 5.21 x10(6)/[facility]AT[facility] Hemoglobin 13.6 11.7 - 15.5 gm/dL [facility] Hematocrit 38.4 35.7 - 45.8 % [facility] MCV 88.5 82.6 - 94.4 [facility] LABORATORY MCH 31.3 27.1 - 32.0 pg [facility] MCHC 35.4(H) 31.7 - 35.0 gm/dL [facility] Platelets 236 145 - 357 x10(3)/[facility] LABORATORY RDWSD 38.6 37.0 - 46.0 [facility]ATORY RDWCV 11.9 11.5 - 14.1 % [facility] MPV 9.1 7.6 - 12.9 [facility]ATORY nRBC % Auto 0.0 % [facility] nRBC Abs Auto 0.000 0.000 - 0.000 x10(3)/[facility] LAB[facility]ATORY Blood specimen (specimen) 10/14/2017 3:46 PM EDT 10/14/2017 3:52 PM EDT Narrative Resulting Agency Comment Spec In Lab Malgorzata Pappas ACTING PROFESSOR HEMATOLOGY ORDERABLE S [facility] [place] [address] * TSH (10/14/2017 3:46 PM EDT) Pathologist [facility] TSH 3.28 0.27 - 4.20 mlU/ML [facility] Blood specimen (specimen) 10/14/2017 3:46 PM EDT 10/14/2017 3:52 PM EDT Narrative Resulting Agency Comment Spec In Lab Malgorzata Clementwitt ACTING PROFESSOR CHEMISTRY ORDERABLES [facility] [place] [address] * (ABNORMAL) Basic Metabolic Panel (non-fasting) (10/14/2017 3:46 PM EDT) [facility] [address] Glucose Lvl 243(H) 65 - 199 mg/dL [facility] Comment:Diabetes: >=200 mg/d L plus symptoms BUN 16 8 - 18 mg/dL [facility] Creatinine 0.63(L) 0.70 - 1.20 mg/dL [facility] Sodium 139 135 - 145 mmol/L [facility] Potassium 4.0 3.5 - 5.0 mmol/L [facility] Comment: Please note: ??Patients with WBC >100,000 may have falsely elevated Potassium levels. ??For accurate Potassium quantification in these patients send serum separator tube (gold top) for subsequent determinations. ??Contact the Clinical Chemistry Laboratory if there are any questions. Chloride 99 98 - 107 mmol/L [facility] CO2 25 22 - 31 mmol/L [facility] Anion Gap 15 5 - 15 mmol/L [facility] Calcium 9.2 8.5 - 10.5 mg/dL [facility] Estimated GFR 113 >=60 mL/min/1. 73 m?? [facility] Comment: The eGFR was calculated using the CKD-EPI equation. As with all creatinine based estimates of kidney function, eGFR values calculated with the CKD-EPI equation are not accurate in patients with acute kidney failure, extremes of body mass or the acutely ill. http://wikifolio/DHnkdep http://wikifolio/DHMCnkf eGFR 131 >=60 mL/min/1. 73 m?? [facility] Comment: The eGFR was calculated using the CKD-EPI equation. As with all creatinine based estimates of kidney function, eGFR values calculated with the CKD-EPI equation are not accurate in patients with acute kidney failure, extremes of body mass or the acutely ill. http://wikifolio/Azimonkdep http://wikifolio/DHMCnkf Blood specimen (specimen) 10/14/2017 3:46 PM EDT 10/14/2017 3:52 PM EDT Narrative Resulting Agency Comment Spec In Lab Malgorzata Pappas APRN CHEMISTRY ORDERABLES Performing Organization Address City/State/[facility] Co de Phone Number [facility] [address] documented in this encounter Visit Diagnoses Diagnosis Depression, unspecified depression type Anxiety Anxiety state, unspecified Fatigue due to depression documented in this encounter Care Teams Getter Operator Relationship Specialty Start Date End Date Carlos Alberto Ag MD [facility] [place] [address] PCP - General General Internal Medicine 04/26/17 10/31/19 documented as of this encounter
--- OUTSIDE RECORDS SUMMARY | 2023-11-15 01:01 | XMS_ITS | Encounter Summary ---
Author Organization [facility] Address [facility] [place] [address] Care Team Providers Care Delivery Supervisor Name Role Phone Carlos Alberto Ag MD Primary Care Provider Reason for Referral * Consultation (Routine) - Closed Specialty Diagnoses / Procedures Referred By Contac t Referred To Contact Sleep Center Diagnoses Obstructive sleep apnea Carlos Alberto Ag MD [facility] [place] [address] [facility] Sleep Medicine [address] [place] [address] Referral ID Status Reason Start Date Expiration Date V isits Requested Visits Authorized [id number] Closed Specialty Service Requested 05/13/2017 05/13/2018 1 1 * Physical Therapy (Routine) - Closed Specialty Diagnoses / Procedures Referred By Contac t Referred To Contact Physical Therapy Diagnoses Chronic right hip pain Carlos Alberto Ag MD [facility] [place] [address] [facility] Rehab [address] [place] [address] Referral ID Status Reason Start Date Expiration Date V isits Requested Visits Authorized [id number] Closed Evaluate and Treat 05/13/2017 05/13/2018 1 1 Reason for Visit * Reason Comments Establish Care Encounter Details Date Type Department Care Team (Late st Contact Info) Description 05/13/2017 3:30 PM EST Office Visit Internal Medicine at [facility] [place] [address] Carlos Alberto Ag MD [facility] [place] [address] Type 2 diabetes mellitus without complication, without [...] foods, chocolate or tobacco. Patient lives in [place], [place] with her 2 daughters. Her mother stays overnight when the patient is working. She works at [employer] in [place], [place]. PHQ-9 QUESTIONNAIRE (AMB) 05/13/2017 PHQ - [...] in 3 months Carlos Alberto Ag MD #[id number] Health maintenance updated: Health Maintenance Topic Date [...] Dm-Last seen in august hba1c 8.1-increased metformin 5829-3174 mg a day Diet-lot less soda-eating healthier-more fruit and veg Lost 8 lbs Has optho appt that she needs to reschedule Depression-doing better on effexor still some issues with anger Enjoys activities with kids No SI or HI Mom good support -helps watching kids during her rn night CADY-last study was 6 y ago was referred to sleep center by prev pcp however needs another referral today does not have a CPAP at home dsbc-ubr-mezeuuym diet Not too bothered by her sx [...] (ABNORMAL) Hemoglobin A1c (06/03/2017 9:44 AM EST) [facility] Signature Hemoglobin A1C 7.2(H) 4.3 - 5.6 % [facility] Comment: Reference Range: 4.3 [...] into estimated average glucose values. ??Diabetes Care 2008:31(8):7446-5080. Blood specimen (specimen) 06/03/2017 9:44 AM EST 06/03/2017 9:51 AM EST Narrative Resulting Agency Comment Spec In Lab Jacqueline Cleveland MD CHEMISTRY ORDERABLES Performing Organization Address City/State/[facility] Co de Phone Number [facility] [place] [address] * (ABNORMAL) Basic Metabolic Panel (non-fasting) (06/03/2017 9:44 AM EST) Glucose Lvl 177 65 - 199 mg/dL [facility] Comment:Diabetes: >=200 mg/d L plus symptoms BUN 16 8 - 18 mg/dL [facility] Creatinine 0.68(L) 0.70 - 1.20 mg/dL [facility] Sodium 140 135 - 145 mmol/L [facility] Potassium 4.0 3.5 - 5.0 mmol/L [facility] Comment: Please note: ??Patients with WBC >100,000 may have falsely elevated Potassium levels. ??For accurate Potassium quantification in these patients send serum separator tube (gold top) for subsequent determinations. ??Contact the Clinical Chemistry Laboratory if there are any questions. Chloride 99 98 - 107 mmol/L [facility] CO2 27 22 - 31 mmol/L [facility] Anion Gap 14 5 - 15 mmol/L [facility] Calcium 9.0 8.5 - 10.5 mg/dL [facility] Estimated GFR >60 >=60 [facility] Comment: The reported eGFR should be multiplied by 1.2 for patients. The MDRD is not an appropriate measure of renal function for patients with body mass extremes or in patients with acute kidney failure. [email or web address] Blood specimen (specimen) 06/03/2017 9:44 AM EST 06/03/2017 9:51 AM EST Narrative Resulting Agency Comment Spec In Lab Jacqueline Cleveland MD CHEMISTRY ORDERABLES [facility] [place] [id number] * U Albumin/Cre Ratio (06/03/2017 9:41 AM EST) Alb/Cr Ratio, Random Not Calculated 0 - 29 mcg/mg Cr [facility] Comment: Reference Ranges: <30 [...] 362 U Albumin Conc, Random <3.0 mg/L [facility] U Creatinine 120 mg/dL [facility] Urine specimen (specimen) 06/03/2017 9:41 AM EST 06/03/2017 9:51 AM EST Narrative Resulting Agency Comment Spec In Lab Jacqueline Cleveland MD URINE ORDERABLES [facility] [place] [address] documented in this encounter Visit Diagnoses Diagnosis Type 2 diabetes mellitus without complication, without long-term current use of insulin- Primary Hypertension, unspecified type Chronic right hip pain Pain in joint, pelvic region and thigh Obstructive sleep apnea Obstructive sleep apnea (adult) (pediatric) Gastroesophageal reflux disease, esophagitis presence not specified Depression, unspecified depression type documented in this encounter Care Teams Delivery Supervisor Relationship Specialty Start Date End Date Carlos Alberto Ag MD [facility] [place] [address] PCP - General General Internal Medicine 04/26/17 10/31/19 documented as of this encounter
--- OUTSIDE RECORDS SUMMARY | 2023-11-15 01:01 | XMS_ITS | Encounter Summary ---
Author Organization [facility] [place] [address] Care Team Providers Care Bagging Machine Operator Name Role Phone Carlos Alberto Ag MD Primary Care Provider Reason for Visit * Reason Comments Medication Refill Encounter Details Date Type Department Care Team (Late st Contact Info) Description 02/27/2018 Refill [place] [address] Malgorzata Pappas, TEAM DRIVER [facility] GENERAL [place] [address] Depression, unspecified depression type Social History Tobacco [...] type documented in this encounter Care Teams Bagging Machine Operator Relationship Specialty Start Date End Date Carlos Alberto Ag MD [facility] [address] [place] [address] PCP - General General Internal Medicine 04/26/17 10/31/19 documented as of this encounter
--- OUTSIDE RECORDS SUMMARY | 2023-11-15 01:01 | XMS_ITS | Encounter Summary ---
Author Organization [facility] [place] [address] Care Team Providers Care Ed Physicians Name Role Phone Enoch Medina MD Primary Care Provider [phone] Reason for Visit * Reason Comments Medication Refill Encounter Details Date Type Department Care Team ([facility] st Contact Info) Description 04/02/2019 [place] [address] Carlos Alberto Ag MD [facility] GENERAL [place] [address] Menstrual disorder Social History Tobacco Use Types [...] tract documented in this encounter Care Teams Ed Physicians Relationship Specialty Start Date End Date Enoch Medina MD [facility] [place] [address] PCP - General Family Medicine 08/22/20 06/03/21 documented as of this encounter
--- OUTSIDE RECORDS SUMMARY | 2023-11-15 01:01 | XMS_ITS | Encounter Summary ---
Author Organization [facility] [place] [address] Care Team Providers Care Technical Aide Name Role Phone Carlos Alberto Ag MD Primary Care Provider Reason for Visit * Reason Comments Medication Refill Encounter Details Date Type Department Care Team (Late st Contact Info) Description 01/29/2019 Refill [place] [address] Carlos Alberto Ag MD [facility] GENERAL [place] [address] Uncontrolled type 2 diabetes mellitus without complication, [...] insulin documented in this encounter Care Teams Technical Aide Relationship Specialty Start Date End Date Carlos Alberto Ag MD [facility] [place] [address] PCP - General General Internal Medicine 04/26/17 10/31/19 documented as of this encounter
--- OUTSIDE RECORDS SUMMARY | 2023-11-15 01:01 | XMS_ITS | Encounter Summary ---
Author Organization [facility] [place] [address] Care Team Providers Care Conductor/Engineer Name Role Phone Pita Narayanan MD Primary Care Provider [phone] Reason for Visit * Reason Onset Date Comments Prior Authorization 08/21/2016 [facility] Encounter Details Date Type Department Care Team (Late st Contact Info) Description 08/21/2016 Refill Family Medicine at [facility] [address] [place] [address] Michael Vazquez MA Type 2 diabetes mellitus without complication, unspecified roasterman insulin use status (Primary Dx) Social History [...] Authorization for [place] [address] Patient: Sarah Moncada Patient : 1980 Subscriber Insurance: [employer] Sent via: [employer] Thomas: [id number] Physician: Pita Narayanan MD Return [...] Type 2 diabetes mellitus without complication, unspecified roasterman insulin use status- Primary documented in this encounter Care Teams Conductor/Engineer Relationship Specialty Start Date End Date Pita Narayanan MD [facility] [address] [place] [address] PCP - General General Internal Medicine 01/28/1604/22 documented as of this encounter
--- OUTSIDE RECORDS SUMMARY | 2023-11-15 01:01 | XMS_ITS | Encounter Summary ---
Author Organization [facility] [place] [address] Care Team Providers Care Fire Support Man Name Role Phone Carlos Alberto Ag MD Primary Care Provider Reason for Visit * Reason Onset Date Comments Medication Refill 04/03/2019 Encounter Details Date Type Department Care Team (Late st Contact Info) Description 04/03/2019 [place] [address] Gail Reilly LPN Essential hypertension; Uncontrolled type [...] insulin documented in this encounter Care Teams Fire Support Man Relationship Specialty Start Date End Date Carlos Alberto Ag MD [facility] GENER[place] [address] PCP - General General Internal Medicine 04/26/17 10/31/19 documented as of this encounter
--- OUTSIDE RECORDS SUMMARY | 2023-11-15 01:01 | XMS_ITS | Encounter Summary ---
Author Organization [facility] [place] [address] Care Team Providers Care Home Visit Field Care Manager Name Role Phone Pita Narayanan MD Primary Care Provider [phone] Encounter Details Date Type Department Care Team (Late st Contact Info) Description 09/21/2016 Telephone Internal Medicine at [facility] [address] [place] [address] Faye Jackson RN Social History [...] nurse, no answer. Can be reached at [phone] until 6:30 this evening * Telephone Encounter [...] on filedocumented in this encounter Care Teams Home Visit Field Care Manager Relationship Specialty Start Date End Date Pita Narayanan MD [facility] [address] [facility] [place] [address] PCP - General General Internal Medicine 01/28/1604/22 documented as of this encounter
--- OUTSIDE RECORDS SUMMARY | 2023-11-15 01:01 | XMS_ITS | Encounter Summary ---
Author Organization [facility] [place] [address] Care Team Providers Care Metal Model Builder Name Role Phone Carlos Alberto Ag MD Primary Care Provider Reason for Referral * Consultation (Routine) - Closed Specialty Diagnoses / Procedures Referred By Contmak t Referred To Contact Internal Medicine Diagnoses Current moderate episode of major depressive disorder, unspecified whether recurrent Malgorzata Pappas APRN [facility] [place] [address] [address] Referral ID Status Reason Start Date Expiration Date V isits Requested Visits Authorized [id number] Closed Specialty Service Requested 06/24/2018 06/24/2019 1 1 Reason for Visit * Reason Comments Depression Other stomach issues for lulu gillespie, nausea, food doesn't settle well, diarrhea Encounter Details Date Type Department Care Team (Late st Contact Info) Description 06/24/2018 10:00 AM EST Office [place] [address] Malgorzata Pappas APRN [facility] [place] [address] Current moderate episode of major [...] the numbers for these national suicide hotlines: 8-690-530-TALK ( ) and 3-549-FNZTFRM ( ). If you or someone you [...] national suicide hotlines: -TALK ( ) and 8-607-DKPKSIC ( ). If you or someone you [...] more? Visit our health information library at [email or web address]. You can also view health information on [employer], your personal patient account. Log in or sign uptoday. Enter Z126 in the search box to learn more about Learning About Mood Disorders. Current as of: December 28, 2017 Content Version: 11.9 ?? 4811-7822 [employer]. Care instructions adapted under license by [facility]. If you have questions about a medical condition or this instruction, always ask your healthcare professional. [employer] disclaims any warranty or liability for your [...] recurrent documented in this encounter Care Teams Metal Model Builder Relationship Specialty Start Date End Date Carlos Alberto Ag MD [facility] [place] [address] PCP - General Internal Medicine 04/26/17 10/31/19 documented as of this encounter
--- OUTSIDE RECORDS SUMMARY | 2023-11-15 01:02 | XMS_ITS | Encounter Summary ---
Author Organization [facility] Address [facility] [place] [address] Care Team Providers Care Laborer Salvage Name Role Phone Pita Narayanan MD Primary Care Provider [phone] Reason for Referral * Consultation (Urgent) - Specialty Diagnoses / Procedures Referred By Contac t Referred To Contact Primary Care Diagnoses Severe episode of recurrent major depressive disorder, without psychotic features Pita Narayanan MD [facility] [place] [address] [facility] Internal Medicine [address] [place] [address] Referral ID Status Reason Start Date Expiration Date Visits Requested Visits Authorized [id number] Specialty Service Requested 04/29/2016 04/29/2017 1 1 Reason for Visit * Reason Comments Establish Care Encounter Details Date Type Department Care Team (Late st Contact Info) Description 04/28/2016 3:30 PM EST Office Visit Internal Medicine at [facility] [address] [place] [address] [place] [address] Severe episode of recurrent major depressive disorder, without psychotic features; Type 2 diabetes mellitus without complication, unspecified [place] [facility] insulin use status; Essential hypertension; Gastroesophageal reflux [...] bupropion and continueon the higher dose venlafaxine [facility] Psychiatry emergency services: [phone] [facility] Emergency room: [phone] WILL[facility] PENALOZA rewards consultant after 5 pm and on weekends; through [facility] Hair Cutter [phone] [facility] 24 hr emergency line ([place], [place]) [facility] [place] intake [phone]; [facility] intake [phone] The preferred route for ongoing care is with Ismael Unger since this is closer We will arrange referrals for our consulting psychiatrist here at [facility] and with one of the crisis staff in psychiatry, if needed. You contracted for safety today See emergency resources above Type 2 diabetes mellitus without complication, unspecified [place] [facility] insulin use status - POCT glycated hemoglobin, [...] to get more records including labs from [place] We will contact you about setting up depo shot for week of May 05 or Set up follow up visit with me documented in this encounter Progress Notes * Pita Narayanan MD - 04/28/2016 3:30 PM EST Here to re-est care I was running ~45 min late I met her once in 2012. Then lost to f/u here Went to [place] for continued primary care. We have one scanned office note from a year ago Difficulties with access to continue to see her provider there, Gwen PEDRO. Pts work schedule somewhat of a factor. Transferred back here. Lives [place] Acute issues needed addressing today incl worsening depression with SI. DM not well controlled Last visit at [place] was 3 months ago for depo Due [...] a therapist. [place] living situation [place] with her 2 daughters. They live in an apartment. Downstairs neighbors. They know the daughters Wants to stay there until can get bigger place. Started getting child support from 1 father only since February. Nothing prior to this. Trying on the other, needs a job. this is the father of the youngest laly First ex spouse no safety concerns Other [...] here in crisis services Psych here at [facility] [address] for med consult Better for scrap cutter would be Ismael Unger Is aware of [...] mothre Discussed psych emergency resources here, WILLIS rewards consultant, and Ismael Unger 24 hr hotline. Given [...] Wt was 240 lbs Apr 2015 at [facility] visit Alert, affect appropriate to situation, calm. Speech fluent. NAD Erythema and fine scale around eyelids that looks c/w eyelid dermatitis (did not review further). Anicteric sclerae Mouth: [place] teeth, OP moist, no lesions Neck supple [...] bupropion and continueon the higher dose venlafaxine [facility] Psychiatry emergency services: [phone] [facility] Emergency room: [phone] WILLIS PENALOZA rewards consultant after 5 pm and on weekends; through [facility] Hair Cutter [phone] [facility] 24 hr emergency line ([place], [place]) [facility] intake [phone]; [facility] [place] intake [phone] The preferred route for ongoing care is with Ismael Unger since this is closer We will arrange referrals for our consulting psychiatrist here at [facility] [address] and with one of the crisis staff in psychiatry, if needed. You contracted for safety today See emergency resources above Type 2 diabetes mellitus without complication, unspecified [place] [facility] insulin use status - POCT glycated hemoglobin, [...] daily. Could [place] easily [place] PPI[place]. Went with this for now and will see if covered Menstrual disorder - medroxyPROGESTERone (DEPO-PROVERA) 150 mg/mL Suspension; Inject 1 mL into the muscle Q 3 Months. Next is due between May 05 and 2016. Previously administered at [facility] Need to get set up. I could [...] to get more records including labs from [place] We will contact you about setting up [...] Type 2 diabetes mellitus without complication, unspecified [place] [facility] insulin use status URINE HOLD Routine 04/28/2016 4:10 PM EST U ALBUMIN/CRE RATIO Routine 04/28/2016 4 :10 PM EST Type 2 diabetes mellitus without complication, unspecified [place] [facility] insulin use status documented in this encounter Results * (ABNORMAL) BMP w/fasting Glucose (05/11/2016 10:28 AM EST) [facility] Glucose Fasting 175(H) 65 - 99 mg/dL [facility] Comment: ?Fasting* Glucose Interpretive Criteria [...] of Diabetes Mellitus, Position Statement from the [place] [employer]. ??Diabetes Care, Volume 33, Supplement 1, Apr 2009 BUN 15 8 - 18 mg/dL [facility] Creatinine 0.72 0.70 - 1.20 mg/dL [facility] Comment: Please note that the pediatric reference intervals supplied above were not validated at [facility]. Results from pediatric patients should be interpreted in conjunction to the patient's age, height and muscle mass. Sodium 142 135 - 145 mmol/L [facility] Potassium 4.3 3.5 - 5.0 mmol/L [facility] Comment: Please note: ??Patients with WBC >100,000 may have falsely elevated Potassium levels. ??For accurate Potassium quantification in these patients send serum separator tube (gold top) for subsequent determinations. ??Contact the Clinical Chemistry Laboratory if there are any questions. Chloride 102 98 - 107 mmol/L [facility] CO2 28 22 - 31 mmol/L [facility] Anion Gap 12 5 - 15 mmol/L [facility] Calcium 9.4 8.5 - 10.5 mg/dL [facility] Estimated GFR >60 >=60 [facility] [...] the following links into your internet browser. [email or web address] Blood specimen (specimen) 05/11/2016 10:28 AM EST 05/11/2016 1:46 PM EST Narrative Resulting Agency Comment Spec In Lab Pita Narayanan MD CHEMISTRY ORDERABLES [facility] [place] [address] * (ABNORMAL) POCT glycated hemoglobin, total (HA1C) (04/28/2016 4:24 PM EST) POC HA1C 8.0(A) 4.3 - 5.6 % Blood specimen (specimen) 04/28/2016 4:24 PM EST Pita Narayanan MD POINT OF CARE TEST O RDERABLES * Urine Hold (04/28/2016 4:10 PM EST) Pathologist [facility] Urine Hold Sample in lab. [facility] Urine specimen (specimen) Urine / Unknown 04/28/2016 4:10 PM EST 04/29/2016 9:34 AM EST Pita Narayanan MD URINE ORDERABLES [facility] [place] [address] * U Albumin/Cre Ratio (04/28/2016 4:10 PM EST) Alb/Cr Ratio, Random Not Calculated 0 - 29 mcg/mg Cr [facility] Comment: Reference Ranges: <30 mcg/mg: [...] 362 U Albumin Conc, Random <3.0 mg/L [facility] U Creatinine 100 mg/dL [facility] Urine specimen (specimen) 04/28/2016 4:10 PM EST 04/29/2016 11:17 AM EST Narrative Resulting Agency Comment Spec In Lab Pita Narayanan MD URINE ORDERABLES [facility] [place] [address] documented in this encounter Visit Diagnoses Diagnosis Severe episode of recurrent major depressive disorder, without psychotic features Type 2 diabetes mellitus without complication, unspecified scrap cutter insulin use status Essential hypertension Unspecified essential hypertension Gastroesophageal reflux disease, esophagitis presence not specified Menstrual disorder Unspecified disorder of menstruation and other abnormal bleeding from female genital tract Obstructive sleep apnea Obstructive sleep apnea (adult) (pediatric) Increased BMI Other symptoms concerning nutrition, metabolism, and development documented in this encounter Care Teams Laborer Salvage Relationship Specialty Start Date End Date Pita Narayanan MD [facility] [place] [address] PCP - General General Internal Medicine 01/28/1604/22 documented as of this encounter
--- OUTSIDE RECORDS SUMMARY | 2023-11-15 01:02 | XMS_ITS | Encounter Summary ---
Author Organization [facility] Address [facility] [place] [address] Care Team Providers Care Railroad Detective Name Role Phone Pita Narayanan MD Primary Care Provider [phone] Encounter Details Date Type Department Care Team (Latest Contact Info) Description 05/11/2016 10:15 AM EST Laboratory Appointment Lab at [facility] [address] [place] [address] Type 2 diabetes mellitus without complication, unspecified alf insulin use status; Essential hypertension Social History [...] Type 2 diabetes mellitus without complication, unspecified medical terminologist insulin use status Essential hypertension documented in [...] of Diabetes Mellitus, Position Statement from the [place] Diabetes Association. ??Diabetes Care, Volume 33, Supplement 1, Apr 2009 BUN 15 8 - 18 mg/dL [facility] Creatinine 0.72 0.70 - 1.20 mg/dL [facility] Comment: Please note that the pediatric reference intervals supplied above were not validated at [facility]. Results from pediatric patients should be interpreted [...] >60 >=60 [facility] Comment: This estimated GFR (eGFR) [...] the following links into your internet browser. [email or web address] Blood specimen (specimen) 05/11/2016 10:28 AM EST 05/11/2016 1:46 PM EST Narrative Resulting Agency Comment Spec In Lab Pita Narayanan MD CHEMISTRY ORDERABLES Performing Organization Address City/State/[facility] Co de Phone Number [facility] [place] [address] documented in this encounter Visit Diagnoses Diagnosis Type 2 diabetes mellitus without complication, unspecified medical terminologist insulin use status Essential hypertension Unspecified essential hypertension documented in this encounter Care Teams Railroad Detective Relationship Specialty Start Date End Date Pita Narayanan MD [facility] [address] [facility] [place] [address] PCP - General General Internal Medicine 01/28/1604/22 documented as of this encounter
--- OUTSIDE RECORDS SUMMARY | 2023-11-15 01:02 | XMS_ITS | Encounter Summary ---
Author Organization Formerly [facility] Address [facility] [place] [address] Care Team Providers Care Patient Case Manager Name Role Phone Pita Narayanan MD Primary Care Provider [phone] Encounter Details Date Type Department Care Team (Late st Contact Info) Description 08/14/2016 Telephone Internal Medicine at [facility] [address] [place] [address] Pita Narayanan MD [facility] [place] [address] Social History Tobacco Use Types Packs/Day Years [...] on filedocumented in this encounter Care Teams Patient Case Manager Relationship Specialty Start Date End Date Pita Narayanan MD [facility] DR [address] [place] [address] PCP - General General Internal Medicine 01/28/1604/22 documented as of this encounter
--- OUTSIDE RECORDS SUMMARY | 2023-11-15 01:02 | XMS_ITS | Encounter Summary ---
Author Organization Formerly [facility] Veronica elle [place] [id number] Care Team Providers Care School Age Lead Teacher Name Role Phone Pita Narayanan MD Primary Care Provider [phone] Reason for Referral * Psychiatric (Routine) - Closed Specialty Diagnoses / Procedures Referred By Contac t Referred To Contact Primary Care Diagnoses Depression Pita Narayanan MD [facility] [place] [address] Karsten Morris MD [facility] [place] [address] Referral ID Status Reason Start Date Expiration Date V isits Requested Visits Authorized [id number] Closed Consult, Test & Treat 01/30/2013 07/29/2013 1 1 Reason for Visit * Reason Comments Establish Care wants to discuss new anti-depressant; may need refills Encounter Details Date Type Department Care Team (Late st Contact Info) Description 01/30/2013 8:25 AM EDT Office Visit Internal Medicine at [facility] [address] [place] [address] Pita Narayanan MD [facility] [place] [address] Healthcare maintenance (Primary Dx); Diabetes [...] February 11Wednesday, 0800 am - 1 pm, [facility] Auditorium A, B, C Referral for medication consult with Dr Morris, our consulting psychiatrist at [facility] Psychiatry emergency services: [phone] [facility] Emergency room: [phone] WILLIS PENALOZA economics lecturer after 5 pm and on weekends; through [facility] Director Operating [phone] [facility] 24 hr emergency line [facility] 24 hr emergency line ; appt intake line [phone] While waiting for visit with Dr Morris: [...] Records release for Dr Carlos's office at [facility]. Last 5 years will be sufficient. Normal [...] Appears to have seen Dr Carlos at [facility] for most recent PCP; no records received. Will do records release Reviewed pinion staker notes Did not do questionnaire before visit [...] just moved, now in an apartment, in [place]. Works at [employer] in [place]. Discussed job security. They have EAP. Says has gotten irritated and walks out. Can be tempermental. Has seen people for this Had worked on this before her sister . Then had a setback with this. PHQ9 is 7. Has been more depressed in past Support network--mother, friend who lives with them, knows 19 years. Mother lives in [place]. There is fhx of depression, anger issues I take care of her mother. No prior abuse hx. No abuse issues with first marriage Father of older child lives in [facility] [place] [place]. This father not really involved. #DM [...] for eye exam--goes to [facility] in [place]. No foot paresthesias. Not on anything for [...] Aware of risks to her on this. [id number], also helps regulate menses. Has 1 RF [...] tablet by mouth daily. Records release from [facility]--additional background would have been helpful to [...] EDT) TSH 2.35 0.27 - 4.20 mcIU/mL [facility] Blood specimen (specimen) 01/30/2013 10:22 AM EDT 01/30/2013 12:32 PM EDT Narrative Resulting Agency Comment Spec In Lab Pita Narayanan MD CHEMISTRY ORDERABLES [facility] * Hemoglobin A1c (01/30/2013 10:22 AM EDT) Hemoglobin A1C 5.8 4.3 - 6.1 % [facility] Comment: The [place] Diabetes Association (ADA) has stated that HbA1c [...] 2013:36;suppl 1:S11-S66. Est Avg Gluc 120 mg/dL [facility] Comment: eAG equivalents for HbA1c percentages: [...] into estimated average glucose values. ??Diabetes Care 2008:31(8):4451-7825. Blood specimen (specimen) 01/30/2013 10:22 AM EDT 01/30/2013 12:34 PM EDT Narrative Resulting Agency Comment Spec In Lab Pita Narayanan MD CHEMISTRY ORDERABLES [facility] * (ABNORMAL) Lipid panel (fasting) (01/30/2013 10:22 AM EDT) Chol, Total 160 <=199 mg/dL [facility] Comment: Recommendations of the NCEP Adult Treatment Panel for the following risk cutoff thresholds for the [place] population: Desirable: <200 mg/dL Borderline High: 200-239 mg/dL High: > or = 240 mg/dL Triglycerides 233(H) <=149 mg/dL [facility] Comment: Reference Range: Normal triglycerides: ??<150 mg/dL Borderline high: ??150-199 mg/dL High: ??200-499 mg/dL Very high: ??>xk=350 mg/dL PATRICA 2001; 285(19):5941-7708 HDL 40 >=40 mg/dL [facility] Comment: Reference range: ??Low HDL: ?? < 40 mg/dL ??Normal: ?40-60 mg/dL ??Desirable: > 60 mg/dL PATRICA 2001; 285(19):9957-3850 LDL Cholesterol 73 <=99 mg/dL [facility] Comment: Reference range: ?? Optimal: ?<100 mg/dL ?? Near Optimal/Above Optimal: ?? 100-129 mg/dL ?? Borderline high: ?130-159 mg/dL ?? High: ? 160-189 mg/dL ?? Very high: ?>kx=420 mg/dL PATRICA 2001: 285(19):6118-4885 Chol/HDL Ratio 4.0 ratio [facility] [employer] Comment: A Cholesterol to HDL ratio below 4:1 is desirable. ??Studies suggest that increased CAD risk occurs at ratios above 5 for females and above 6 for men. ? [place] Heart Association ??(http://www.americanheart.org) ? Michaela Int Med, 1994; 121:641 ? AM J Med, 1998; 105(1A):48S Blood specimen (specimen) 01/30/2013 10:22 AM EDT 01/30/2013 12:32 PM EDT Narrative Resulting Agency Comment Spec In Lab Pita Narayanan MD CHEMISTRY ORDERABLES [facility] * (ABNORMAL) BMP w/fasting Glucose (01/30/2013 10:22 AM EDT) Glucose Fasting 123(H) 65 - 99 mg/dL [facility] Comment: ?Fasting* Glucose Interpretive Criteria Normal [...] of Diabetes Mellitus, Position Statement from the [place] Diabetes Association. ??Diabetes Care, Volume 33, Supplement 1, Apr 2009 BUN 9 8 - 18 mg/dL [facility] Creatinine 0.67(L) 0.70 - 1.20 mg/dL [facility] Comment: Please note that the pediatric reference intervals supplied above were not validated at [facility]. Results from pediatric patients should be interpreted [...] Narayanan MD CHEMISTRY ORDERABLES Performing Organization Address City/[facility] Co de Phone Number ANA GILMAN * Microalbumin, urine, random (01/30/2013 10:07 AM EDT) U Creatinine 166 mg/dL [facility] U Albumin Conc, Random 169.9 mg/L [facility] Alb/Cr Ratio, Random 102 mcg/mg Cr [facility] Comment: Reference Range* Random collection (mcg/mg creatinine) Normal ?<30 Microalbuminuria ?? 30 - 300 Clinical Albuminuria ?? >300 *[place] Diabetes Association. Diabetic Nephropathy. Diabetes Care 1997;(Suppl 1):S24-S27 Exercise within 24 hour, infection, fever, CHF, marked hyperglycemia, and marked hypertension may elevate urinary albumin excretion over baseline values. Urine specimen (specimen) 01/30/2013 10:07 AM EDT 01/30/2013 12:31 PM EDT Narrative Resulting Agency Comment Spec In Lab Pita Narayanan MD URINE ORDERABLES Performing Organization Address City/[facility] Co de Phone Number ANA GILMAN documented [...] reflux documented in this encounter Care Teams School Age Lead Teacher Relationship Specialty Start Date End Date Pita Narayanan MD [facility] [address] [place] [address] PCP - General 12/01/12 04/21/15 documented as of this encounter
--- OUTSIDE RECORDS SUMMARY | 2023-11-15 01:02 | XMS_ITS | Encounter Summary ---
Author Organization Formerly [facility] [place] [address] Care Team Providers Care Nephrologist Name Role Phone Dav Carlos MD Primary Care Provider [phone] Reason for Visit * Reason Comments Non-stress Test Type II diabetes Encounter Details Date Type Department Care Team (Latest Contact Info) Description 12/15/2011 9:00 AM EDT Routine Obstetrics and Gynecology at [facility] [place] [address] Alexandre Powers, RN GA: [id number] Discharge Disposition: [...] uncontrolled documented in this encounter Care Teams Nephrologist Relationship Specialty Start Date End Date Dav Carlos MD PCP - General 10/01/10 11/30/12 documented as of this encounter
--- OUTSIDE RECORDS SUMMARY | 2023-11-15 01:02 | XMS_ITS | Encounter Summary ---
Author Organization [facility] [place] [address] Care Team Providers Care Leno Sewer Name Role Phone Pita Narayanan MD Primary Care Provider [phone] Encounter Details Date Type Department Care Team (Late st Contact Info) Description 01/26/2013 Telephone Internal Medicine at [facility] [address] [place] [address] Makenzie Rutledge CMA Social History [...] on filedocumented in this encounter Care Teams Leno Sewer Relationship Specialty Start Date End Date Pita Narayanan MD [facility] [place] [address] PCP - General 12/01/12 04/21/15 documented as of this encounter
--- OUTSIDE RECORDS SUMMARY | 2023-11-15 01:02 | XMS_ITS | Encounter Summary ---
Author Organization Formerly [facility] [place] [address] Care Team Providers Care Aircraft Fuselage Framer Name Role Phone Pita Narayanan MD Primary Care Provider [phone] Encounter Details Date Type Department Care Team (Late st Contact Info) Description 06/30/2016 Telephone Internal Medicine at [facility] [address] [place] [address] Pita Narayanan MD [facility] [place] [address] Social History Tobacco Use Types Packs/Day Years [...] on filedocumented in this encounter Care Teams Aircraft Fuselage Framer Relationship Specialty Start Date End Date Pita Narayanan MD [facility] [address] [facility] [place] [address] PCP - General General Internal Medicine 01/28/1604/22 documented as of this encounter
--- OUTSIDE RECORDS SUMMARY | 2023-11-15 01:02 | XMS_ITS | Encounter Summary ---
Author Organization [facility] [place] [address] Care Team Providers Care Furnace Tapper Name Role Phone Pita Narayanan MD Primary Care Provider [phone] Reason for Visit * Reason Onset Date Comments No Show 08/19/2016 Encounter Details Date Type Department Care Team ([facility] Contact Info) Description 08/19/2016 Telephone Family Medicine at [facility] [address] [place] [address] Marilyn Mock No Show Social History Tobacco [...] on filedocumented in this encounter Care Teams Furnace Tapper Relationship Specialty Start Date End Date Pita Narayanan MD [facility] [address] [place] [address] PCP - General General Internal Medicine 01/28/1604/22 documented as of this encounter
--- OUTSIDE RECORDS SUMMARY | 2023-11-15 01:02 | XMS_ITS | Encounter Summary ---
Author Organization [facility] [place] [address] Care Team Providers Care Newspaper Manager Name Role Phone Dav Carlos MD Primary Care Provider [phone] Encounter Details Date Type Department Care Team (Latest Contact Info) Description 12/18/2011 9:30 AM EDT Routine Obstetrics [place] [address] CLINIC, Lisette Aviles MD [facility] OBSTETRICS [place] [address] GA: 37w4d Discharge Disposition: Home Social History [...] care documented in this encounter Care Teams Newspaper Manager Relationship Specialty Start Date End Date Dav Carlos MD PCP - General 10/01/10 11/30/12 documented as of this encounter
--- OUTSIDE RECORDS SUMMARY | 2023-11-15 01:02 | XMS_ITS | Encounter Summary ---
Author Organization [facility] [place] [address] Care Team Providers Care Die Cast Operator Name Role Phone Pita Narayanan MD Primary Care Provider Reason for Visit * Reason Comments Follow-up * Consultation (Urgent) - Specialty Diagnoses / Procedures Referred By Contmak t Referred To Contact Primary Care Diagnoses Severe episode of recurrent major depressive disorder, without psychotic features Piat Narayanan MD [facility] [address] [place] [address] [facility] Internal Medicine [address] [place] [address] Referral ID Status Reason Start Date Expiration Date Visits Requested Visits Authorized [id number] Specialty Service Requested 04/29/2016 04/29/2017 1 1 Encounter Details Date Type Department Care Team ([facility] st Contact Info) Description 05/11/2016 9:00 AM EST Office Visit Internal Medicine at [facility] [address] [place] [address] Karsten Morris MD [facility] [place] [address] Severe episode of recurrent major [...] is ok) Give chance with therapist at [facility] 3 - 5 visits. Follow-up with Dr. Gama 05/19/16 Strong does not mean doing it alone. documented in this encounter Progress Notes * Karsten Morris MD - 05/11/2016 9:00 AM EST REFERRAL SOURCE: Dr. Pita Narayanan. REASON FOR REFERRAL: Recent intensifying suicidal ideation and increasing PHQ-9 reflective of moderate to severe depression. LOCATION OF APPOINTMENT: [facility]. DURATION OF APPOINTMENT: 60 minutes. ADDITIONAL [...] use disorder. She currently is employed at [employer], resides with her 2 children in [place], [place], and is insured through [employer]. CHIEF COMPLAINT: I've had depression since high school, but this is the first time I've felt suicidal and not wanting to be around my kids, which really scared me. HISTORY OF PRESENT ILLNESS: Sarah recently reestablished care with Dr. Narayanan at the [facility]. She had previously been seeing a primary care physician in [place], but was finding that her mental health [...] environment. 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 SOCIAL HISTORY: Born in [place], raised in [place], youngest of 3 children from her mother [...] good relationship. He has just moved to [place], is getting re-involved with the children which is overall positive but somewhat stressful on the family system. Her second marriage was for 3 years. This partner struggled with substance use, is currently not in their lives. Her 2 children are Barbara, age 10, and Torrie, age 4, whom she is very dedicated to. 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 She has been with them for 3 years. The shifting schedule is stressful. She works 6 p.m. to 6 a.m. on , Wednesday, Wednesday and every other weekend. This makes sleep fragmented and difficult, is often combined with caring for her children. 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 documented in this encounter Plan of Treatment Not on file documented as of this encounter Visit Diagnoses Diagnosis Severe episode of recurrent major depressive disorder, without psychotic features documented in this encounter Care Teams Die Cast Operator Relationship Specialty Start Date End Date Pita Narayanan MD [facility] [place] [address] PCP - General General Internal Medicine 01/28/1604/22 documented as of this encounter
--- OUTSIDE RECORDS SUMMARY | 2023-11-15 01:02 | XMS_ITS | Encounter Summary ---
Author Organization Formerly [facility] [place] [address] Care Team Providers Care Gerontology Aide Name Role Phone Galina Hook MD Primary Care Provider [phone] Reason for Visit * Reason Comments Care Encounter Details Date Type Department Care Team (Latest Contact Info) Description 02/01/2012 4:30 PM EDT Visit Obstetrics [place] [address] Amina Mock MD [facility] DR OBSTETRICS [place] [address] Lisette Elise MD [facility] OBSTETRICS [place] [address] Diabetes mellitus; Hypertension; CAYD (obstructive sleep apnea); GERD (gastroesophageal reflux disease); [...] encounter Miscellaneous Notes * Miscellaneous - Bradley, Breast Worker - 02/04/2012 1:23 PM EDT documented in [...] status documented in this encounter Care Teams Gerontology Aide Relationship Specialty Start Date End Date Galina Hook MD PCP - General 10/01/10 11/30/12 documented as of this encounter
--- OUTSIDE RECORDS SUMMARY | 2023-11-15 01:02 | XMS_ITS | Encounter Summary ---
Author Organization [facility] [place] [address] Care Team Providers Care Software Engineering Project Manager Name Role Phone Pita Narayanan MD Primary Care Provider [phone] Reason for Visit * Reason Comments Medication Refill Encounter Details Date Type Department Care Team ([facility] st Contact Info) Description 12/15/2013 Refill Internal Medicine at [facility] [address] [place] [address] Pita Narayanan MD [place] [address] Diabetes mellitus type 2, uncomplicated (Primary Dx); [...] maintenance Routine general [facility] at a [facility] Gastroesophageal reflux disease Esophageal reflux documented in this encounter Care Teams Software Engineering Project Manager Relationship Specialty Start Date End Date Pita Narayanan MD [facility] [address] [facility] [place] [address] PCP - General 12/01/12 04/21/15 documented as of this encounter
--- OUTSIDE RECORDS SUMMARY | 2023-11-15 01:02 | XMS_ITS | Encounter Summary ---
Author Organization [facility] [place] [address] Care Team Providers Care Tank Refinisher Name Role Phone Pita Narayanan MD Primary Care Provider Encounter Details Date Type Department Care Team (Latest Contact Info) Description 05/11/2016 1:40 PM EST Clinical Support Internal Medicine at [facility] [address] [place] [address] Yoly Palacios RN Encounter for contraceptive management, [...] Tissue documented in this encounter Care Teams Tank Refinisher Relationship Specialty Start Date End Date Pita Narayanan MD [facility] [address] [place] [address] PCP - General General Internal Medicine 01/28/1604/22 documented as of this encounter
--- OUTSIDE RECORDS SUMMARY | 2023-11-15 01:02 | XMS_ITS | Encounter Summary ---
Author Organization Formerly [facility] [place] [address] Care Team Providers Care Block Sawyer Name Role Phone Pita Narayanan MD Primary Care Provider [phone] Encounter Details Date Type Department Care Team (Late st Contact Info) Description 04/13/2014 Telephone Internal Medicine at [facility] [address] [place] [address] Angélica Ochoa Social History Tobacco Use Types [...] on filedocumented in this encounter Care Teams Block Sawyer Relationship Specialty Start Date End Date Pita Narayanan MD [facility] [place], [place] [address] PCP - General 12/01/12 04/21/15 documented as of this encounter
--- OUTSIDE RECORDS SUMMARY | 2023-11-15 01:02 | XMS_ITS | Encounter Summary ---
Author Organization Formerly [facility] [place] [address] Care Team Providers Care Fiscal Accountant Name Role Phone Dav Carlos MD Primary Care Provider [phone] Reason for Visit * Reason Comments Non-stress Test Routine Visit Encounter Details Date Type Department Care Team (Late st Contact Info) Description 12/08/2011 10:30 AM EDT Routine Obstetrics [place] [address] Marilyn House MD [facility] DR OBSTETRICS [place] [address] GA: [id number] Discharge Disposition: Home Social History [...] given two booklets; Going Home with Your and Anesthesia Guidelines. A Laborinstructions term pamphlet, Group B Streptococcus Informational Sheet, and Circumcision Letter (if applicable) was also given. The patient received additional pamphlets entitled Position and Tips for Successful and [facility] Services. documented in this encounter Plan of [...] AM EDT) Group B Strep Screen Pos [facility] Pooled specimen from vaginal introitus and rectal swab (specimen) 12/08/2011 10:39 AM EDT 12/08/2011 3:04 PM EDT Comment:PENICILLIN ALLERGY?- >NO Narrative Resulting Agency Comment Spec In Lab Marilyn House MD MICROBIOLOGY - GEN ERAL ORDERABLES [facility] * Group B Strep Culture Screen (12/08/2011 10:39 AM EDT) Group B Streptococcus Culture ? Patient Name: MIGDALIA MOREIRA ? Ordered By: MARILYN HOUSE ? MR#: [id number] ?LOC: ??5L ? /Sex: ??1980 (31 years), [...] MD MICROBIOLOGY - GEN ERAL ORDERABLES [facility] documented in this encounter Visit Diagnoses Diagnosis Unspecified high-risk documented in this encounter Care Teams Fiscal Accountant Relationship Specialty Start Date End Date Dav Carlos MD PCP - General 10/01/10 11/30/12 documented as of this encounter
--- OUTSIDE RECORDS SUMMARY | 2023-11-15 01:02 | XMS_ITS | Encounter Summary ---
Author Organization [facility] [place] [address] Care Team Providers Care Biomedical Engineer Name Role Phone Dav Carlos MD Primary Care Provider [phone] Encounter Details Date Type Department Care Team (Late st Contact Info) Description 12/04/2011 3:45 PM EDT Routine [facility] [place] [id number] CLINIC, Katelin Briones RN GA: [id number] Discharge [...] uncontrolled documented in this encounter Care Teams Biomedical Engineer Relationship Specialty Start Date End Date Dav Carlos MD PCP - General 10/01/10 11/30/12 documented as of this encounter
--- OUTSIDE RECORDS SUMMARY | 2023-11-15 01:02 | XMS_ITS | Encounter Summary ---
Author Organization [facility] [place] [address] Care Team Providers Care Demolition Worker Name Role Phone Pita Narayanan MD Primary Care Provider [phone] Reason for Referral * Consultation (Routine) - Specialty Diagnoses / Procedures Referred By Jay flores Referred To Contact Sleep Center Diagnoses Obstructive sleep apnea Pita Narayanan MD [facility] [place] [address] [facility] Sleep Medicine [address] [place] [address] Referral ID Status Reason Start Date Expiration Date Visits Requested Visits Authorized [id number] Specialty Service Requested 05/27/2016 05/27/2017 1 1 Reason for Visit * Reason Comments Follow-up discuss hip and slee ping at some point, currently more concerned about depression and sugars Encounter Details Date Type Department Care Team (Late st Contact Info) Description 05/27/2016 2:00 PM EST Office Visit Internal Medicine at [facility] [address] [place] [address] Pita Narayanan MD [facility] [place] [address] Major depressive disorder, recurrent episode, [...] Will mail the lab slip. Get at [facility] in the week before the visit Fasting [...] not make it Has to reschedule The wireworker called her No SI reported today That [...] Will mail the lab slip. Get at [facility] in the week before the visit. FLP [...] EST) HepB Surface Ab Quant <3.5 IU/L [facility] Comment: HepB Surface Ab Quant: Unvaccinated: < 8.5 IU/L Vaccinated: > 11.5 IU/L HepB Surface Ab Negative [facility] Comment: Patient is presumed to be not vaccinated or immune to HBV infection. Expected Results: Vaccinated: Positive Unvaccinated: Negative Blood specimen (specimen) 03/05/2017 8:17 AM EST 03/05/2017 9:56 AM EST Narrative Resulting Agency Comment Spec In Lab Pita Narayanan MD IMMUNOLOGY ORDERABLE S Performing Organization Address City/[facility]/ZIP Co de Phone Number [facility] [place] [address] * (ABNORMAL) Lipid Panel (03/05/2017 8:17 AM EST) Chol, Total 166 <=239 mg/dL [facility] Triglycerides 309(H) <=199 mg/dL [facility] HDL 32(L) >=40 mg/dL [facility] LDL Cholesterol 72 <=190 mg/dL [facility] Chol/HDL Ratio 5.[address] [facility] Lipid Interpretation See Note [facility] Comment: Lipid management should be guided by a patient? s ASCVD risk, goals and preferences. ACC/AHA Guidelines recommend high intensity statin if clinical ASCVD or LDL greater than or equal to 190 mg/dL. http://[employer].com/EDA-WPF-Pxslhkoim Adults aged 40-75 with LDL 70-189 mg/dL should have their 10 year ASCVD risk estimated with the ACC/AHA ASCVD risk quality compliance consultant http://tools.acc.org/QXLMW-Dllu-Fhdjvqbzy/ Statin should be discussed if risk greater [...] Narayanan MD CHEMISTRY ORDERABLES Performing Organization Address City/[facility]/ZIP Co de Phone Number [facility] [place] [address] documented in this encounter Visit Diagnoses Diagnosis [...] facility documented in this encounter Care Teams Demolition Worker Relationship Specialty Start Date End Date Pita Narayanan MD [facility] DR [address] DOW[address] [facility] [place] [address] PCP - General General Internal Medicine 01/28/1604/22 documented as of this encounter
--- OUTSIDE RECORDS SUMMARY | 2023-11-15 01:02 | XMS_ITS | Encounter Summary ---
Author Organization Formerly [facility] [place] [address] Care Team Providers Care Square Shear Operator Name Role Phone Dav Carlos MD Primary Care Provider [phone] Encounter Details Date Type Department Care Team (Late st Contact Info) Description 12/18/2011 1:00 PM EDT - 12/18/2011 2:59 PM [place] [phone] Pam Prasad MD [facility] OBSTETRICS & [place] [address] @ DELIVERY (WRVU 16.13) Social History Tobacco [...] engorgement is relieved. Call your doctor or pharmacy clinical specialist for: Fever more than 100.5 Heavy [...] follow up appointment. You may call the [facility] at any time for guidance or for answers to questions that come up prior to you follow up appointment. Your [facility] Provider can be reached during office hours at [facility] Follow-up Clinic AFTER OFFICE HOURS for the echocardiologist or pharmacy clinical specialist ammonium nitrate neutralizer Provider electronic signature confirms that discharge instructions were reviewed with the patient. A copy was printed and given to the patient. * Patient Instructions* Radha Mathews MD - 12/21/2011 10:36 AM EDT Follow up appointments and recommendations: If not made at the time of discharge, please call your primary OB provider for a follow up appointment. ([phone]) Patient Discharge Instructions: For problems or concerns related to this hospitalization call: [phone] weekdays, or [phone] weekends or nights. Call your doctor if [...] and 6 yr old daughter Barbara. Where: [facility], [place] Approx time in community: Years Social Resources: Intact couple. Both employed. 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 Have nGame insurance through he employer and [place] Medicaid secondary. Have local family support. Extended family in area for support: Yes Cognitive Resources: Intact Childbirth Education: Yes/No Educational level: High School + Functional Status: Ambulatory, Independent, Without limitations. C/S recovery with limitations on lifting/driving x 2 weeks. Complications requiring follow-up: Financial Resources: Adequate. No concerns expressed Health Insurance Coverage: [facility], [facility] nGame plus [place] Medicaid. Baby will be placed on Dr Kamara Line Supervisor Chosen: Dr Dav Carlos; [facility] Baby's Name: Baby Girl Radha Anticipated Continuing Care Needs: Physical: Recovery from . Initiation of . Emotional: Adjustment to period Psychological: Known hx of anxiety/depression. At risk for PPD. Referred to social media intern for assessment and support while inpatient. Educational: Parenting Continuing Care Plan Development: At home resources/Discharge supports suggested. Printed materials and suggested community resourcesprovided to patient: Visiting Nurse visits: Offered services of [facility] post discharge. Patient declined [facility] ([facility]) 4th Trimester New mom support/[facility] [place] Healthy [facility]ies: Referral to [facility] [place] [facility]: [facility] [place] DME ordered : None Breast Pump: N/A Other: Have car seat, transportation, and adequate family support. No direct referrals made at this time. . CRC: Roxanne LEE/ Keny Strong. Beeper [id number] * Amina Mock MD - 12/21/2011 6:57 [...] Tolerating regular diet without nausea or vomiting. Meas remains in place, will be removed today. [...] rounds. LAWRENCE GUO MD PGY1 12/19/2011 Pager #[phone] Attending post - section note ALEXANDRE ELIZABETH [...] assisted to left lateral tilt. EFM placed, UXY=313. MDs aware. To proceed with scheduled repeat [...] 1/2 mL 30 x 5/16 Syrg by [facility].(Non-Drug; Combo Route) route. Taking [...] 05/29/2011 GCAMP Negative 05/29/2011 CHLMGENE Negative 05/29/2011 [id number] <0.18* 07/15/2011 AST 14 09/09/2011 Lab Results [...] will need cord blood ?? Gerd: aliyah LOEPZ MD 12/18/2011 Addendum: 31 yo woman @ [...] none Provider Contact Information: DAV CARLOS MD [phone] Discharge References/Attachments: Discharge References/Attachments None Signed: Santana Mathews MD * Miscellaneous - Provider, Scanning - 12/18/2011 8:37 PM EDT * Op Note - Pam Prasad MD - 12/18/2011 7:12 PM EDT [facility] Operative Note Patient Name: Migdalia Garcia : [id number] MR#: [id number] Case Date: 12/18/2011 Surgeon: Surgeon(s) and Role: * CHELA LOPEZ MD - Resident-Director [employer] * ALEXANDRE ELIZABETH MD - *ASSISTING SURGEON [...] single area of nonhemostasis and a single [id number]-[id number] was placed for hemostasis. The gutters were [...] for the patient's : Mejia Garcia Girl [[id number]] Delivery 12/18/2011 5:23 PM by Lower Segment [...] providers: Delivery Assist Delivery Nurse Resident Resident Python Java Developer Amina Elizabeth Additional information: Forceps: Vacuum: Breech: [...] for the patient's : Mejia Garcia Girl [[id number]] Delivery 12/18/2011 5:23 PM by Lower Segment [...] Complications: Nuchal X 1 Placenta: Delivered: appearance [employer] Measurements: Weight: 8 lb 2.9 oz (3710 g) Height: 20 Head circumference: 35 cm Chest circumference: Other providers: Delivery Assist Delivery Nurse Resident Resident Python Java Developer Amina Elizabeth Additional information: Forceps: Vacuum: Breech: [...] Operative Note Patient Name: Migdalia Garcia : [id number] MR#: [id number] Case Date: 12/18/2011 Surgeon: Surgeon(s) and Role: * CHELA LOPEZ MD - Resident-Director [employer] * ALEXANDRE ELIZABETH MD - *ASSISTING SURGEON [...] POC Glucose 115 60 - 199 mg/dL [facility] Comment: Supplemental ranges: <110 mg/dL before meals <200 mg/dL all other times of the day Blood specimen (specimen) 12/20/2011 6:55 PM EDT 12/20/2011 6:55 PM EDT Pam Prasad MD POINT OF CARE TEST O TARUN Performing Organization Address City/State/[facility] Co de Phone Number [facility] * POCT GLUCOSE (12/20/2011 2:00 PM EDT) POC Glucose 106 60 - 199 mg/dL [facility] Comment: Supplemental ranges: <110 mg/dL before meals <200 mg/dL all other times of the day Blood specimen (specimen) 12/20/2011 2:00 PM EDT 12/20/2011 2:00 PM EDT Pam Prasad MD POINT OF CARE TEST O RDERABLES Performing Organization Address [facility] Co de Phone Number [facility] * POCT GLUCOSE (12/20/2011 10:42 AM EDT) POC Glucose 139 60 - 199 mg/dL [facility] Comment: Supplemental ranges: <110 mg/dL before meals <200 mg/dL all other times of the day Blood specimen (specimen) 12/20/2011 10:42 AM EDT 12/20/2011 10:42 AM EDT Pam Prasad MD POINT OF CARE TEST O RDERABLES Performing Organization Address [facility] Co de Phone Number [facility] * POCT GLUCOSE (12/19/2011 7:34 PM EDT) POC Glucose 120 60 - 199 mg/dL [facility] Comment: Supplemental ranges: <110 mg/dL before meals <200 mg/dL all other times of the day Blood specimen (specimen) 12/19/2011 7:34 PM EDT 12/19/2011 7:34 PM EDT Pam Prasad MD POINT OF CARE TEST O RDERABLES Performing Organization Address [facility] Co de Phone Number [facility] * POCT GLUCOSE (12/19/2011 1:47 PM EDT) POC Glucose 102 60 - 199 mg/dL [facility] Comment: Supplemental ranges: <110 mg/dL before meals <200 mg/dL all other times of the day Blood specimen (specimen) 12/19/2011 1:47 PM EDT 12/19/2011 1:47 PM EDT Pam Prasad MD POINT OF CARE TEST O RDERABLES Performing Organization Address [facility] Co de Phone Number [facility] * POCT GLUCOSE (12/19/2011 10:01 AM EDT) POC Glucose 114 60 - 199 mg/dL [facility] Comment: Supplemental ranges: <110 mg/dL before meals <200 mg/dL all other times of the day Blood specimen (specimen) 12/19/2011 10:01 AM EDT 12/19/2011 10:01 AM EDT Pam Prasad MD POINT OF CARE TEST O RDERABLES Performing Organization Address [facility] Co de Phone Number [facility] * POCT GLUCOSE (12/19/2011 7:56 AM EDT) POC Glucose 88 60 - 199 mg/dL [facility] Comment: Supplemental ranges: <110 mg/dL before meals <200 mg/dL all other times of the day Blood specimen (specimen) 12/19/2011 7:56 AM EDT 12/19/2011 7:56 AM EDT Pam Prasad MD POINT OF CARE TEST O RDTONO Performing Organization Address [facility] de Phone Number [facility] [...] EDT Pam Prasad MD HEMATOLOGY ORDERABLE S [facility] * (ABNORMAL) Creatinine, serum (12/19/2011 6:10 AM EDT) Creatinine 0.45(L) 0.70 - 1.20 mg/dL [facility] Comment: Please note that the pediatric reference intervals supplied above were not validated at [facility]. Results from pediatric patients should be interpreted [...] CHEMISTRY ORDERABLES Performing Organization Address [facility] Co de Phone Number [facility] * Aspartate Aminotransferase (12/19/2011 6:10 AM EDT) AST 28 0 - 30 unit/L [facility] Blood specimen (specimen) 12/19/2011 6:10 AM EDT 12/19/2011 6:28 AM EDT Narrative Resulting Agency Comment Spec In Lab Pam Prasad MD CHEMISTRY ORDERABLES Performing Organization Address [facility] Co de Phone Number [facility] * (ABNORMAL) CBC (with Diff) (12/19/2011 6:10 AM EDT) WBC 11.1(H) 4.0 - 10.0 x10(3)/mcL [facility] RBC 4.16 3.93 - 5.22 x10(6)/mcL [facility] Hemoglobin 13.0 11.2 - 15.7 gm/dL [facility] Hematocrit 37.6 34.0 - 45.0 % [facility] MCV 90.4 79.0 - 94.0 fL [facility] MCH 31.3 26.6 - 32.2 pg [facility] MCHC 34.6 32.0 - 36.5 gm/dL [facility] Platelets 162 145 - 370 x10(3)/mcL [facility] RDWSD 43.0 35.0 - 46.0 fL [facility] RDWCV 13.3 10.9 - 14.4 % [facility] MPV 9.7 9.0 - 12.0 fL [facility] Blood specimen (specimen) 12/19/2011 6:10 AM EDT 12/19/2011 6:28 AM EDT Narrative Resulting Agency Comment Spec In Lab Pam Prasad MD HEMATOLOGY ORDERABLE S Performing Organization Address [facility] de Phone Number [facility] * POCT GLUCOSE (12/18/2011 9:11 PM EDT) POC Glucose 75 60 - 199 mg/dL [facility] Comment: Supplemental ranges: <110 mg/dL before meals <200 mg/dL all other times of the day Blood specimen (specimen) 12/18/2011 9:11 PM EDT 12/18/2011 9:11 PM EDT Pam Prasad MD POINT OF CARE TEST O TARUN Performing Organization Address [facility] de Phone Number [facility] * Specimen to Pathology (NON-OR) (12/18/2011 7:07 PM EDT) AP Specimen 12/18/2011 7:07 PM EDT 12/18/2011 7:07 PM EDT Narrative [facility] - 12/18/2011 7:07 PM EDT Specimen requisition ordered. ??Separate Pathology report to follow Pam Prasad MD PATHOLOGY/CYTOLOGY O TARUN Performing Organization Address [facility]/ZIP Co de Phone Number [facility] * POCT GLUCOSE (12/18/2011 2:34 PM EDT) POC Glucose 130 60 - 199 mg/dL [facility] Comment: Supplemental ranges: <110 mg/dL before meals <200 mg/dL all other times of the day Blood specimen (specimen) 12/18/2011 2:34 PM EDT 12/18/2011 2:34 PM EDT Pam Prasad MD POINT OF CARE TEST O RDERABLES Performing Organization Address [facility] Phone Number [facility] * POCT GLUCOSE (12/18/2011 1:48 PM EDT) POC Glucose 61 60 - 199 mg/dL [facility] Comment: Supplemental ranges: <110 mg/dL before meals <200 mg/dL all other times of the day Blood specimen (specimen) 12/18/2011 1:48 PM EDT 12/18/2011 1:48 PM EDT Pam Prasad MD POINT OF CARE TEST O RDERABLES Performing Organization Address [facility] Phone Number [facility] * AB COMMENT (12/18/2011 12:25 PM EDT) Ab Information INTERPRETATION : The patient's specimen shows the presence of the antibody anti-D. ??The patient is negative for the RhD antigen. ??The patient recently received RhIg; the reactivity in the specimen almost certainly represents passive anti-D. ??Unit selection is per routine. ZMS, 12/25/2011 [facility] Comment: SALAZAR MOORE, Pathologist Verified:12/25/11 Blood specimen (specimen) 12/18/2011 12:25 PM EDT 12/18/2011 12:25 PM EDT Narrative Resulting Agency Comment Spec In Lab Pam Prasad MD BLOOD BANK LAB ORDER MARIJA Performing Organization Address [facility]/ZIP Co de Phone Number [facility] * ANTIBODY IDENTIFICATION (12/18/2011 12:25 PM EDT) Pathologist [facility] Ab Identified Anti-D passive [facility] Blood specimen (specimen) 12/18/2011 12:25 PM EDT 12/18/2011 12:25 PM EDT Narrative Resulting Agency Comment Spec In Lab Pam Prasad MD BLOOD BANK LAB ORDER MARIJA Performing Organization Address [facility] Co de Phone Number [facility] G[facility] * SELECTED CELL SCREEN (12/18/2011 12:25 PM EDT) Pathologist [facility] Ab Screen Interp Anti-D detected, most likely passive antibody related to Rh Immune Globulin administrated on 10/13/2011_. ??No alloantibodies detected. [facility] Blood specimen (specimen) 12/18/2011 12:25 PM EDT 12/18/2011 12:25 PM EDT Narrative Resulting Agency Comment Spec In Lab Pam Prasad MD BLOOD BANK LAB ORDER MARIJA Performing Organization Address [facility] de Phone Number [facility] G[facility] * POCT urine dipstick (12/18/2011 11:36 AM EDT) Pathologist [facility] POC Sp [place] 1.002 - 1.030 POC pH, UA 5.0 [...] 10:44 AM EDT) Surgical Pathology Report ? [facility] ? Provider: ?? PAM PRASAD ?Pt. Name: ?? MIGDALIA GARCIA ? Acc #: ?[id number] ?Pt. ? Col Date: ?? 12/18/2011 ? [...] Description: ?? Discoid hamm placenta. ?Membranes: ? Loop, clear. ??Marginal insertion. ?Cord: ?62.0 x 1.5 [...] Specimen Submitted: ? A - Placenta ? [facility] ? Provider: ?? PAM PRASAD ?Pt. Name: ?? MIGDALIA GARCIA ? Acc #: ?[id number] ?Pt. ? Col Date: ?? 12/18/2011 ? /Sex: ?1980,(31 ? years),Female ? Rec Date: ?? 12/22/2011 ?LOC: ?BP ? SURGICAL PATHOLOGY ? Clinical History/Diagnosis: ? 31 yo S/P repeat section with preeclampsia [facility] 12/18/2011 10:4 4 AM EDT Pam Prasad MD PATHOLOGY/CYTOLOGY O RDERABLES Performing Organization Address [facility] Co de Phone Number [facility] * ANTIBODY IDENTIFICATION (12/18/2011 10:30 AM EDT) Pathologist [facility] Ab Identified Anti-D passive [facility] Blood specimen (specimen) 12/18/2011 10:30 AM EDT 12/18/2011 11:04 AM EDT Narrative Resulting Agency Comment Spec In Lab Pam Prasad MD BLOOD BANK LAB ORDER MARIJA Performing Organization Address [facility] Co de Phone Number [facility] * DIFFERENTIAL, AUTOMATED (12/18/2011 10:30 [...] ORDER MARIJA Performing Organization Address [facility] de Phone Number [facility] * Aspartate Aminotransferase (12/18/2011 10:30 AM EDT) AST 21 0 - 30 unit/L [facility] Blood specimen (specimen) 12/18/2011 10:30 AM EDT 12/18/2011 10:46 AM EDT Narrative Resulting Agency Comment Spec In Lab Pam Prasad MD CHEMISTRY ORDERABLES Performing Organization Address [facility] Co de Phone Number [facility] * [...] RN) 09 (Given - Provider: Mayelin Oh, EBREKET) Continuous Medication Order 12/19/2011 12/20/2011 12/21/2011 magnesium [...] Routine documented in this encounter Care Teams Square Shear Operator Relationship Specialty Start Date End Date Dav Carlos MD PCP - General 10/01/10 11/30/12 documented as of this encounter
--- OUTSIDE RECORDS SUMMARY | 2023-11-15 01:02 | XMS_ITS | Encounter Summary ---
Author Organization [facility] [place] [address] Care Team Providers Care Office Machine Servicer Apprentice Name Role Phone Dav Carlos MD Primary Care Provider [phone] Reason for Visit * Reason Comments Routine Visit Encounter Details Date Type Department Care Team ([facility] st Contact Info) Description 12/01/2011 10:30 AM EDT Routine Obstetrics [place] [address] Marilyn Reilly MD [facility] [address] OBSTETRICS [place] [address] GA: [id number] Discharge Disposition: Home Social History [...] care documented in this encounter Care Teams Office Machine Servicer Apprentice Relationship Specialty Start Date End Date Dav Carlos MD PCP - General 10/01/10 11/30/12 documented as of this encounter
--- OUTSIDE RECORDS SUMMARY | 2023-11-15 01:02 | XMS_ITS | Encounter Summary ---
Author Organization [facility] [place] [address] Care Team Providers Care Narrow Gauge Operator Name Role Phone Pita Narayanan MD Primary Care Provider [phone] Reason for Visit * Reason Onset Date Comments Medication Refill 01/09/2013 Encounter Details Date Type Department Care Team (Late st Contact Info) Description 01/09/2013 Refill Obstetrics [place] [address] Marilyn Reilly MD [facility] [place] [address] Hypertension (Primary Dx) Social History Tobacco Use [...] hypertension documented in this encounter Care Teams Narrow Gauge Operator Relationship Specialty Start Date End Date Pita Narayanan MD [facility] DR [facility] [place] [address] PCP - General 12/01/12 04/21/15 documented as of this encounter
--- OUTSIDE RECORDS SUMMARY | 2023-11-15 01:02 | XMS_ITS | Encounter Summary ---
Author Organization [facility] [place] [address] Care Team Providers Care Counter Help Name Role Phone Pita Narayanan MD Primary Care Provider [phone] Encounter Details Date Type Department Care Team (Late st Contact Info) Description 04/29/2016 Orders Only Internal Medicine at [facility] [address] [place] [id number] Faye Jackson RN Irregular menses Social History [...] cycle documented in this encounter Care Teams Counter Help Relationship Specialty Start Date End Date Pita Narayanan MD [facility] [place] [address] PCP - General General Internal Medicine 01/28/1604/22 documented as of this encounter
--- OUTSIDE RECORDS SUMMARY | 2023-11-15 01:02 | XMS_ITS | Encounter Summary ---
Author Organization [facility] [place] [address] Care Team Providers Care Senior Information Security Engineer Name Role Phone Pita Narayanan MD Primary Care Provider [phone] Encounter Details Date Type Department Care Team (Late st Contact Info) Description 05/14/2016 Abstract Internal Medicine at [facility] [address] [place] [phone] Padma Miller, [facility] Social History Tobacco Use Types Packs/Day Years [...] A1c (09/18/2015 10:06 AM EDT) Hemoglobin A1C 7.5(MANAGER UNION AL/ABN) EXTERNAL LAB Comment:external reference r brandon 5.0-5.6 Blood specimen (specimen) 09/18/2015 10:06 AM EDT Historical Provider CHEMISTRY ORDERAB LES EXTERNAL LAB * (ABNORMAL) Lipid External Results (09/18/2015) Chol, Total 154(Exter nal Lab) mg/dL EXTERNAL LAB HDL 27(MANAGER UNION AL/ABN) mg/dL EXTERNAL LAB Comment:external reference r brandon 40-60 LDL Cholesterol 58(MANAGER UNION AL/ABN) mg/dL EXTERNAL LAB Comment:external reference r brandon 60-100 Triglycerides 347(EXTER NAL/ABN) mg/dL EXTERNAL LAB Comment:external reference r brandon 35-150 09/18/2015 Historical Provider POINT OF CARE GONZALES T ORDERABLES Performing Organization Address [facility] Co de Phone Number EXTERNAL LAB * (ABNORMAL) CBC / CMP / Thyroid External Results (09/18/2015) Sodium 136(Dairy Manufacturing Technologist al Lab) 137 - 147 EXTERNAL LAB Potassium 4.0(Dairy Manufacturing Technologist al Lab) 3.4 - 5.3 EXTERNAL LAB Chloride 100(Dairy Manufacturing Technologist al Lab) 99 - 108 EXTERNAL LAB CO2 29(Externa l Lab) 22 - 29 EXTERNAL LAB BUN 15(Externa l Lab) EXTERNAL LAB Creatinine 0.63(Exter nal Lab) EXTERNAL LAB Glucose Lvl 178(MANAGER UNION AL/ABN) EXTERNAL LAB Comment:external reference r brandon 70-110 Calcium 8.3(MANAGER UNION AL/ABN) 8.7 - 10.7 EXTERNAL LAB Comment:external reference r brandon 8.6-10.5 Total Protein 6.7(Dairy Manufacturing Technologist al Lab) 6.4 - 8.2 EXTERNAL LAB Albumin 3.7(Dairy Manufacturing Technologist al Lab) EXTERNAL LAB Total Bilirubin 0.3(Dairy Manufacturing Technologist al Lab) EXTERNAL LAB Alk Phos 62(Externa l Lab) EXTERNAL LAB AST 12(Externa l Lab) 13 - 35 EXTERNAL LAB ALT 28(Externa l Lab) 7 - 35 EXTERNAL LAB 09/18/2015 Historical Provider POINT OF CARE GONZALES T ORDERABLES EXTERNAL LAB documented in this encounter Visit Diagnoses Not on filedocumented in this encounter Care Teams Senior Information Security Engineer Relationship Specialty Start Date End Date Pita Narayanan MD [facility] DR [facility] [place] [address] PCP - General General Internal Medicine 01/28/1604/22 documented as of this encounter
--- OUTSIDE RECORDS SUMMARY | 2023-11-15 01:02 | XMS_ITS | Encounter Summary ---
Author Organization [facility] [place] [address] Care Team Providers Care Security System Sales Consultant Name Role Phone Dav Carlos MD Primary Care Provider [phone] Encounter Details Date Type Department Care Team (Latest Contact Info) Description 12/18/2011 8:45 AM EDT - 12/18/2011 9:44 AM EDT Hospital Encounter Ultrasound at [facility] [place] [address] Unspecified high-risk Social History Tobacco Use Types [...] Final 12/18/2011 11:15 am) Patient Info ID: ?[id number] ?: ??[birth year] (31 yrs) Name: ?MIGDALIA MOREIRA ?Visit Date: 12/18/2011 08:57 am Performed By Performed By: ?Melissa Villareal RDMS Attending: ? Lisette Elise MD ??Valerie Referred By: ? MARILYN HOUSE MD Service(s) Provided UOBFOL - Efw - Growth - Reevaluation - Bermudez ?[id number] - [phone] Indications Reason for exam and clinical history: [...] Final 12/18/2011 11:15 am) Patient Info ID: [id number] : [birth year] (31 yrs) Name: MIGDALIA MOREIRA Visit Date: 12/18/2011 08:57 am Performed By Performed By: Melissa Villareal [facility] Attending: Lisette Elise MD Referred By: MARILYN HOUSE MD Service(s) Provided UOBFOL - Efw - Growth - Reevaluation - [place] [id number] - [phone] Indications Reason for exam and clinical history: [...] high-risk documented in this encounter Care Teams Security System Sales Consultant Relationship Specialty Start Date End Date Dav Carlos MD PCP - General 10/01/10 11/30/12 documented as of this encounter
--- OUTSIDE RECORDS SUMMARY | 2023-11-15 01:02 | XMS_ITS | Encounter Summary ---
Author Organization [facility] [place] [address] Care Team Providers Care Janitor Head Name Role Phone Dav Carlos MD Primary Care Provider Encounter Details Date Type Department Care Team (Latest Contact Info) Description 12/18/2011 9:40 AM EDT - 12/21/2011 11:53 AM EDT [place] [address] Amina Mock MD [facility] [address] OBSTETRICS [place] [address] Pam Prasad MD [facility] [address] OBSTETRICS & [place] [address] Diabetes mellitus; Supervision of high-risk Discharge Disposition: [...] engorgement is relieved. Call your doctor or corn husker machine operator for: Fever more than 100.5 Heavy [...] follow up appointment. You may call the [facility] at any time for guidance or for answers to questions that come up prior to you follow up appointment. Your [facility] Provider can be reached during office hours at [facility]wives [facility] Follow-up Clinic AFTER OFFICE HOURS for the process line operator or corn husker machine operator risk consulting treasury director Provider electronic signature confirms that discharge instructions were reviewed with the patient. A copy was printed and given to the patient. * Patient Instructions* Radha Mathews MD - 12/21/2011 10:36 AM EDT Follow up appointments and recommendations: If not made at the time of discharge, please call your primary OB provider for a follow up appointment. ([phone]) Patient Discharge Instructions: For problems or concerns related to this hospitalization call: [phone] weekdays, or [phone] weekends or nights. Call your doctor if [...] couple. Both employed. 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 Have OOS Blue insurance through he employer and [place] secondary. Have local family support. Extended family in area for support: Yes Cognitive Resources: Intact Childbirth Education: Yes/No Educational level: High School + Functional Status: Ambulatory, Independent, Without limitations. C/S recovery with limitations on lifting/driving x 2 weeks. Complications requiring follow-up: Financial Resources: Adequate. No concerns expressed Health Insurance Coverage: [facility] [employer] plus [place] Medicaid. Baby will be placed on Dr Kamara Veterinary Bacteriologist Chosen: Dr Dav Carlos; [facility] Baby's Name: Baby Sindy Garcia Anticipated Continuing Care Needs: Physical: Recovery from . Initiation of . Emotional: Adjustment to period Psychological: Known hx of anxiety/depression. At risk for PPD. Referred to sr. social media & mobile manager for assessment and support while inpatient. Educational: Parenting Continuing Care Plan Development: At home resources/Discharge supports suggested. Printed materials and suggested community resourcesprovided to patient: Visiting Nurse visits: Offered services of VNA post discharge. Patient declined [facility] ([facility]) 4th Trimester New mom support/[facility]ies: Referral to [facility]: [facility] in [place] DME ordered : None Breast Pump: N/A Other: Have car seat, transportation, and adequate family support. No direct referrals made at this time. . CRC: Roxanne LEE/ Keny Strong. Beeper [phone] * Amina Mock MD - 12/21/2011 6:57 [...] difficulty. +flatus, no BM yet. Formula feeding infant. Desires condoms for contraception. Lochia is moderate [...] 20 pounds piror to this adn only [id number] with the . I encouraged her to [...] is doing well without problems. Lochia appropriate nutrition: formula feeding Contraception: condoms Significant history: [...] was seen and discussed on rounds. LAWRENCE UGO MD PGY1 12/19/2011 Pager #[phone] Attending post - section note ALEXANDRE ELIZABETH [...] assisted to left lateral tilt. EFM placed, SLG=414. MDs aware. To proceed with scheduled repeat [...] 1/2 mL 30 x 5/16 Syrg by [facility].(Non-Drug; Combo Route) route. Taking insulin before breakfast, [...] 05/29/2011 GCAMP Negative 05/29/2011 CHLMGENE Negative 05/29/2011 [id number] <0.18* 07/15/2011 AST 14 09/09/2011 Lab Results [...] of group B Streptococcus V02.51A Care Provider: [facility] Admission History (per admit note) Migdalia Garcia [...] weight of 271 0g. The patient and tolerated the procedure well and were in [...] clinic in 2-3 days to have her jp removed. Important Studies and Lab Data: Labs: [...] none Provider Contact Information: DAV CARLOS MD [phone] Discharge References/Attachments: Discharge References/Attachments None Signed: Santana Mathews MD * Miscellaneous - Provider, Scanning - 12/18/2011 8:37 PM EDT * Op Note - Pam Prasad MD - 12/18/2011 7:12 PM EDT [facility] Operative Note Patient Name: Migdalia Garcia : [id number] MR#: [id number] Case Date: 12/18/2011 Surgeon: Surgeon(s) and Role: * CHELA LOPEZ MD - Resident-Enterprise Application Administrator * ALEXANDRE ELIZABETH MD - *ASSISTING SURGEON [...] nuchal cord and a live born female infant was delivered. The nose and mouth were suctioned on the field and the cord was clamped and cut. The infant was handed off to the waiting pediatricians, [...] single area of nonhemostasis and a single [id number] was placed for hemostasis. The gutters were [...] for the patient's : Mejia Garcia Girl [[id number]] Delivery 12/18/2011 5:23 PM by Lower Segment [...] providers: Delivery Assist Delivery Nurse Resident Resident Signalling And Communications Engineer Amina Elizabeth Additional information: Forceps: Vacuum: [...] for the patient's : Mejia Garcia Girl [[id number]] Delivery 12/18/2011 5:23 PM by Lower Segment [...] providers: Delivery Assist Delivery Nurse Resident Resident Signalling And Communications Engineer Amina Elizabeth Additional information: Forceps: Vacuum: [...] Operative Note Patient Name: Migdalia Garcia : [id number] MR#: [id number] Case Date: 12/18/2011 Surgeon: Surgeon(s) and Role: * CHELA LOPEZ MD - Resident-Enterprise Application Administrator * ALEXANDRE ELIZABETH MD - *ASSISTING SURGEON [...] Glucose 115 60 - 199 mg/dL [facility] Comment: Supplemental ranges: <110 mg/dL before meals <200 mg/dL all other times of the day Blood specimen (specimen) 12/20/2011 6:55 PM EDT 12/20/2011 6:55 PM EDT Pam Prasad MD POINT OF CARE TEST O RDERABLES [facility] * POCT GLUCOSE (12/20/2011 2:00 PM EDT) POC Glucose 106 60 - 199 mg/dL [facility] Comment: Supplemental ranges: <110 mg/dL before meals <200 mg/dL all other times of the day Blood specimen (specimen) 12/20/2011 2:00 PM EDT 12/20/2011 2:00 PM EDT Pam Prasad MD POINT OF CARE TEST O RDTONO Performing Organization Address [facility] de Phone Number [facility] * POCT GLUCOSE (12/20/2011 10:42 AM EDT) POC Glucose 139 60 - 199 mg/dL [facility] Comment: Supplemental ranges: <110 mg/dL before meals <200 mg/dL all other times of the day Blood specimen (specimen) 12/20/2011 10:42 AM EDT 12/20/2011 10:42 AM EDT Pam Prasad MD POINT OF CARE TEST O TARUN Performing Organization Address [facility] de Phone Number [facility] * POCT GLUCOSE (12/19/2011 7:34 PM EDT) POC Glucose 120 60 - 199 mg/dL [facility] Comment: Supplemental ranges: <110 mg/dL before meals <200 mg/dL all other times of the day Blood specimen (specimen) 12/19/2011 7:34 PM EDT 12/19/2011 7:34 PM EDT Pam Prasad MD POINT OF CARE TEST O TARUN Performing Organization Address [facility] de Phone Number [facility] * POCT GLUCOSE (12/19/2011 1:47 PM EDT) POC Glucose 102 60 - 199 mg/dL [facility] Comment: Supplemental ranges: <110 mg/dL before meals <200 mg/dL all other times of the day Blood specimen (specimen) 12/19/2011 1:47 PM EDT 12/19/2011 1:47 PM EDT Pam Prasad MD POINT OF CARE TEST O TARUN Performing Organization Address [facility] de Phone Number [facility] * POCT GLUCOSE (12/19/2011 10:01 AM EDT) POC Glucose 114 60 - 199 mg/dL [facility] Comment: Supplemental ranges: <110 mg/dL before meals <200 mg/dL all other times of the day Blood specimen (specimen) 12/19/2011 10:01 AM EDT 12/19/2011 10:01 AM EDT Pam Prasad MD POINT OF CARE TEST O RDERABLES Performing Organization Address [facility] Co de Phone Number [facility] * POCT GLUCOSE (12/19/2011 7:56 AM EDT) POC Glucose 88 60 - 199 mg/dL [facility] Comment: Supplemental ranges: <110 mg/dL before meals <200 mg/dL all other times of the day Blood specimen (specimen) 12/19/2011 7:56 AM EDT 12/19/2011 7:56 AM EDT Pam Prasad MD POINT OF CARE TEST O RDERABLES Performing Organization Address [facility] de Phone Number [facility] [...] EDT Pam Prasad MD HEMATOLOGY ORDERABLE S [facility] * (ABNORMAL) Creatinine, serum (12/19/2011 6:10 AM EDT) Creatinine 0.45(L) 0.70 - 1.20 mg/dL [facility] Comment: Please note that the pediatric reference intervals supplied above were not validated at [facility]. Results from pediatric patients should be interpreted [...] Prasad MD CHEMISTRY ORDERABLES Performing Organization Address [facility] de Phone Number [facility] * Aspartate Aminotransferase (12/19/2011 6:10 AM EDT) AST 28 0 - 30 unit/L [facility] Blood specimen (specimen) 12/19/2011 6:10 AM EDT 12/19/2011 6:28 AM EDT Narrative Resulting Agency Comment Spec In Lab Pam Prasad MD CHEMISTRY ORDERABLES Performing Organization Address [facility] de Phone Number [facility] * (ABNORMAL) CBC (with Diff) (12/19/2011 6:10 AM EDT) WBC 11.1(H) 4.0 - 10.0 x10(3)/mcL [facility] RBC 4.16 3.93 - 5.22 x10(6)/mcL [facility] Hemoglobin 13.0 11.2 - 15.7 gm/dL [facility] Hematocrit 37.6 34.0 - 45.0 % [facility] MCV 90.4 79.0 - 94.0 fL [facility] MCH 31.3 26.6 - 32.2 pg [facility] MCHC 34.6 32.0 - 36.5 gm/dL [facility] Platelets 162 145 - 370 x10(3)/mcL [facility] RDWSD 43.0 35.0 - 46.0 fL [facility] RDWCV 13.3 10.9 - 14.4 % [facility] MPV 9.7 9.0 - 12.0 fL [facility] Blood specimen (specimen) 12/19/2011 6:10 [...] MD PATHOLOGY/CYTOLOGY O TARUN Performing Organization Address [facility] de Phone Number [facility] * POCT GLUCOSE (12/18/2011 2:34 PM EDT) POC Glucose 130 60 - 199 mg/dL [facility] Comment: Supplemental ranges: <110 mg/dL before meals <200 mg/dL all other times of the day Blood specimen (specimen) 12/18/2011 2:34 PM EDT 12/18/2011 2:34 PM EDT Pam Prasad MD POINT OF CARE TEST O TARUN Performing Organization Address [facility] de Phone Number [facility] * POCT GLUCOSE (12/18/2011 1:48 PM EDT) POC Glucose 61 60 - 199 mg/dL [facility] Comment: Supplemental ranges: <110 mg/dL before meals <200 mg/dL all other times of the day Blood specimen (specimen) 12/18/2011 1:48 PM EDT 12/18/2011 1:48 PM EDT Pam Prasad MD POINT OF CARE TEST O TARUN Performing Organization Address [facility] Phone Number [facility] * AB COMMENT (12/18/2011 12:25 PM EDT) Ab Information INTERPRETATION : The patient's specimen shows the presence of the antibody anti-D. ??The patient is negative for the RhD antigen. ??The patient recently received RhIg; the reactivity in the specimen almost certainly represents passive anti-D. ??Unit selection is per routine. S, 12/25/2011 [facility] Comment: SALAZAR MOORE, Pathologist Verified:12/25/11 Blood specimen (specimen) 12/18/2011 12:25 PM EDT 12/18/2011 12:25 PM EDT Narrative Resulting Agency Comment Spec In Lab Pam Prasad MD BLOOD BANK LAB ORDER MARIJA Performing Organization Address [facility] Co de Phone Number [facility] * ANTIBODY IDENTIFICATION (12/18/2011 12:25 PM EDT) [facility] Ab Identified Anti-D passive [facility] Blood specimen (specimen) 12/18/2011 12:25 PM EDT 12/18/2011 12:25 PM EDT Narrative Resulting Agency Comment Spec In Lab Pam Prasad MD BLOOD BANK LAB ORDER MARIJA Performing Organization Address [facility] Co de Phone Number [facility] * SELECTED CELL SCREEN (12/18/2011 12:25 PM EDT) [facility] Ab Screen Interp Anti-D detected, most likely passive antibody related to Rh Immune Globulin administrated on 10/13/2011_. ??No alloantibodies detected. [facility] Blood specimen (specimen) 12/18/2011 12:25 PM EDT 12/18/2011 12:25 PM EDT Narrative Resulting Agency Comment Spec In Lab Pam Prasad MD BLOOD BANK LAB ORDER MARIJA Performing Organization Address [facility] Co de Phone Number [facility] * POCT urine dipstick (12/18/2011 11:36 AM EDT) [facility] POC Sp Morgan 1.002 - 1.030 POC pH, UA 5.0 [...] Name: ?? MIGDALIA GARCIA ? Acc #: ?[id number] ?Pt. ? Col Date: ?? 12/18/2011 ? [...] Description: ?? Discoid hamm placenta. ?Membranes: ? Traver, clear. ??Marginal insertion. ?Cord: ?62.0 x 1.5 [...] Name: ?? MIGDALIA GARCIA ? Acc #: ?[id number] ?Pt. ? Col Date: ?? 12/18/2011 ? /Sex: ?1980,(31 ? years),Female ? Rec Date: ?? 12/22/2011 ?LOC: ?BP ? SURGICAL PATHOLOGY ? Clinical History/Diagnosis: ? 31 yo S/P repeat section with preeclampsia [facility] 12/18/2011 10:4 4 AM EDT Pam Prasad MD PATHOLOGY/CYTOLOGY O RDERABLES Performing Organization Address [facility] de Phone Number [facility] * ANTIBODY IDENTIFICATION (12/18/2011 10:30 AM EDT) Pathologist [facility] Ab Identified Anti-D passive [facility] Blood specimen (specimen) 12/18/2011 10:30 AM EDT 12/18/2011 11:04 AM EDT Narrative Resulting Agency Comment Spec In Lab Pam Prasad MD BLOOD BANK LAB ORDER MARIJA Performing Organization Address [facility] Co de Phone Number [facility] * DIFFERENTIAL, AUTOMATED (12/18/2011 10:30 AM EDT) Neutrophils % 65.5 34.0 - 71.0 % [facility] Neutr Abs (ANC) 5.73 1.50 - 6.30 [...] BANK LAB ORDER MARIJA Performing Organization Address [facility] de Phone Number [facility] * Aspartate Aminotransferase (12/18/2011 10:30 AM EDT) AST 21 0 - 30 unit/L [facility] Blood specimen (specimen) 12/18/2011 10:30 AM EDT 12/18/2011 10:46 AM EDT Narrative Resulting Agency Comment Spec In Lab Pam Prasad MD CHEMISTRY ORDERABLES Performing Organization Address [facility] de Phone Number [facility] [...] Routine documented in this encounter Care Teams Janitor Head Relationship Specialty Start Date End Date Dav Carlos MD PCP - General 10/01/10 11/30/12 documented as of this encounter
--- OUTSIDE RECORDS SUMMARY | 2023-11-15 01:02 | XMS_ITS | Encounter Summary ---
Author Organization [facility] [place] [address] Care Team Providers Care Headwaitress Name Role Phone Pita Narayanan MD Primary Care Provider [phone] Encounter Details Date Type Department Care Team (Late st Contact Info) Description 04/29/2016 Telephone Psychiatry [place] [phone] Bhupinder Ray, NON PROFIT FINANCIAL CONTROLLER Social History Tobacco Use Types Packs/Day Years [...] this patient's well-being. Spoke with Marilyn of [facility] who will contact the patient today. documented in this encounter Plan of Treatment Not on file documented as of this encounter Visit Diagnoses Not on filedocumented in this encounter Care Teams Headwaitress Relationship Specialty Start Date End Date Pita Narayanan MD [facility] [address] [facility] [place] [address] PCP - General General Internal Medicine 01/28/1604/22 documented as of this encounter
--- OUTSIDE RECORDS SUMMARY | 2023-11-15 01:02 | XMS_ITS | Encounter Summary ---
Author Organization [facility] [place] [address] Care Team Providers Care Refueler Name Role Phone Dav Carlos MD Primary Care Provider [phone] Reason for Visit * Reason Comments Non-stress Test Encounter Details Date Type Department Care Team (Latest Contact Info) Description 12/11/2011 11:15 AM EDT Routine Obstetrics and Gynecology at [facility] [place] [phone] Alexandre Powers, RN GA: 36w4d Discharge Disposition: [...] uncontrolled documented in this encounter Care Teams Refueler Relationship Specialty Start Date End Date Dav Carlos MD PCP - General 10/01/10 11/30/12 documented as of this encounter
--- OUTSIDE RECORDS SUMMARY | 2023-11-15 01:02 | XMS_ITS | Encounter Summary ---
Author Organization [facility] [place] [address] Care Team Providers Care Residential Plumber Name Role Phone Pita Narayanan MD Primary Care Provider [phone] Encounter Details Date Type Department Care Team (Late st Contact Info) Description 04/29/2016 Telephone Internal Medicine at [facility] [address] [place] [address] Pita Narayanan MD [facility] [place] [address] Social History Tobacco Use Types Packs/Day Years [...] on filedocumented in this encounter Care Teams Residential Plumber Relationship Specialty Start Date End Date Pita Narayanan MD [facility] [place] [id number] PCP - General General Internal Medicine 01/28/1604/22 documented as of this encounter
--- OUTSIDE RECORDS SUMMARY | 2023-11-15 01:02 | XMS_ITS | Encounter Summary ---
Author Organization [facility] [place] [address] Care Team Providers Care Presales Senior Specialist Name Role Phone Dav Carlos MD Primary Care Provider [phone] Reason for Visit * Reason Comments Suture / Staple Removal Encounter Details Date Type Department Care Team ([facility] st Contact Info) Description 12/23/2011 9:45 AM EDT Office Visit Obstetrics and Gynecology at [facility] [place] [phone] Alexandre Powers RN Encounter for removal of [...] Primary documented in this encounter Care Teams Presales Senior Specialist Relationship Specialty Start Date End Date Dva Carlos MD PCP - General 10/01/10 11/30/12 documented as of this encounter
--- OUTSIDE RECORDS SUMMARY | 2023-11-15 01:02 | XMS_ITS | Encounter Summary ---
Author Organization [facility] [place] [address] Care Team Providers Care Matchbook Maker Name Role Phone Dav Carlos MD Primary Care Provider [phone] Encounter Details Date Type Department Care Team (Late st Contact Info) Description 12/18/2011 4:02 PM EDT [place]est[place] [address] Reji Banuelos MD [facility] [place] [address] Julio Billy MD [facility] [place] [address] Anesthesia Record Procedure Summary Procedure Name Responsible [...] Date of Encounter: 12/19/11 Place of Service: [facility] Responsible Attending: Syed Dempsey MD [...] Barth MD Anesthesia CA-2 beeper # : [id number] * Anesthesia Procedure Notes - Emelina Meadows [...] the past, but was intubated asleep at [facility] for a cholecystectomy (she does not recall [...] on filedocumented in this encounter Care Teams Matchbook Maker Relationship Specialty Start Date End Date Dav Carlos MD PCP - General 10/01/10 11/30/12 documented as of this encounter
--- OUTSIDE RECORDS SUMMARY | 2023-11-15 01:03 | XMS_ITS | Encounter Summary ---
Author Organization [facility] [place] [address] Care Team Providers Care Automobile Mechanic Helper Name Role Phone Dav Carlos MD Primary Care Provider Reason for Visit * Reason Comments Routine Visit Encounter Details Date Type Department Care Team ([facility] st Contact Info) Description 09/10/2011 3:15 PM EDT Routine Obstetrics [place] [address] Marilyn Reilly MD [facility] DR OBSTETRICS [place] [address] GA: 23w3d Discharge Disposition: Home Social History [...] (if applicable) along with the Guide to [place] was given to the patient. The materials [...] MD HEMATOLOGY ORDERAB LES Performing Organization Address City/State/[facility] Co de Phone Number [facility] documented in this encounter Visit Diagnoses Diagnosis Unspecified high-risk documented in this encounter Care Teams Automobile Mechanic Helper Relationship Specialty Start Date End Date Dav Carlos MD PCP - General 10/01/10 11/30/12 documented as of this encounter
--- OUTSIDE RECORDS SUMMARY | 2023-11-15 01:03 | XMS_ITS | Encounter Summary ---
Author Organization [facility] [place] [address] Care Team Providers Care Compliance Review Specialist Name Role Phone Enoch Medina MD Primary Care Provider [phone] Encounter Details Date Type Department Care Team (Late st Contact Info) Description 03/03/2010 Orders Only Lab [facility] [place] [phone] Alina Krishna MD OBSTETRICS & GYNECOLOGY Social [...] 4:11 PM EST) Surgical Pathology Report [id number] ? Location: 5L The signing pathologist has [...] on filedocumented in this encounter Care Teams Compliance Review Specialist Relationship Specialty Start Date End Date Enoch Medina MD [facility] DR PATRICIO [place] [address] PCP - General Family Medicine 08/22/20 06/03/21 documented as of this encounter
--- OUTSIDE RECORDS SUMMARY | 2023-11-15 01:03 | XMS_ITS | Encounter Summary ---
Author Organization [facility] Address [facility] [place] [address] Care Team Providers Care Estimating Engineer Name Role Phone Dav Carlos MD Primary Care Provider [phone] Encounter Details Date Type Department Care Team (Latest Contact Info) Description 08/27/2011 10:07 AM EDT - 08/27/2011 11:59 PM EDT Hospital Encounter [place] [phone] CARDIO, ECHO SIXTY MIN APPT None Lisette Elise MD [facility] [place] [address] Unspecified high-risk Discharge Disposition: Home Social History [...] ? HARISH Xiao ?(Age): 1980(31) Med Rec#: ?[id number] ? Sex: ?F ? [facility] Loc[facility] ? Ht / Wt: ??(cm)/(kg) ? Pt. Loc: ? Echo Lab ? BSA: ? Study Date: ?08/27/2011 ? Pt. Type: Outpatient Study Quality: ?Tape: ? Referring: Grover Elise Stock Drier Tender: Yosef Frankel Diagnosis:CPT Code(s): ?? Echo Full (51234), ?? Doppler Full (32761), ??Color Doppler (33256), Indication(s): ??Maternal diabetes Rhythm: SUMMARY: 1. A [...] 08/28/2011 07:53:22 Images reviewed and interpretation verified [facility] Cardiac Ultrasound Laboratory Procedure Note Percy Morales MD - 08/28/2011 Procedure: Pediatric Echocardiogram Patient: HARISH Xiao (Age): 1980(31) Med Rec#: [id number] Sex: F Site Loc: [facility] Ht / Wt: (cm)/(kg) Pt. Loc: Echo Lab BSA: Study Date: 08/27/2011 Pt. Type: Outpatient Study Quality: Tape: Referring: Grover Elise Stock Drier Tender: Yosef Frankel Diagnosis:CPT Code(s): Echo Full (90340), Doppler Full (59316), Color Doppler (82426), Indication(s): Maternal diabetes Rhythm: SUMMARY: 1. A [...] 08/28/2011 07:53:22 Images reviewed and interpretation verified [facility] Cardiac Ultrasound Laboratory Marilyn Reilly MD ECHO ORDERABLES documented in this encounter Visit Diagnoses Diagnosis Unspecified high-risk documented in this encounter Care Teams Estimating Engineer Relationship Specialty Start Date End Date Dav Carlos MD PCP - General 10/01/10 11/30/12 documented as of this encounter
--- OUTSIDE RECORDS SUMMARY | 2023-11-15 01:03 | XMS_ITS | Encounter Summary ---
Author Organization [facility] [place] [address] Care Team Providers Care Agent Ticketing Gate Name Role Phone Dav Carlos MD Primary Care Provider [phone] Encounter Details Date Type Department Care Team (Latest Contact Info) Description 11/24/2011 10:00 AM EDT - 11/24/2011 11:59 PM EDT Hospital Encounter Ultrasound at [facility] [place] [address] Unspecified high-risk Social History Tobacco Use Types [...] 11/24/2011 10:38 am) Patient Info ID: ? [id number] ? : ??[birth year] (31 yrs) Name: ? MIGDALIA MOREIRA ? Visit Date: 11/24/2011 10:27 am Performed By Performed By: ?Melissa Villareal RDMS Attending: ? Gerardo PENALOZA, Crispin Bishop Referred By: ? MARILYN HOUSE MD Service(s) Provided UOBFOL - Efw - Growth - Reevaluation - [place] ?[id number] - [id number] Indications Efw, Growth Evaluation Num Of Fetuses: [...] Final 11/24/2011 10:38 am) Patient Info ID: [id number] : [birth year] (31 yrs) Name: MIGDALIA MOREIRA Visit Date: 11/24/2011 10:27 am Performed By Performed By: Melissa Villareal RDMS Attending: Crispin Carrillo MD Referred By: MARILYN HOUSE MD Service(s) Provided UOBFOL - Efw - Growth - Reevaluation - [place] [id number] - [phone] Indications Efw, Growth Evaluation Num Of Fetuses: [...] call if you have any questions. Marilyn Houes MD Electronically Signed Final Report 11/24/2011 10:38 am Marilyn House MD IMG US OB ORDERABL ES documented in this encounter Visit Diagnoses Diagnosis Unspecified high-risk documented in this encounter Care Teams Agent Ticketing Gate Relationship Specialty Start Date End Date Dav Carlos MD PCP - General 10/01/10 11/30/12 documented as of this encounter
--- OUTSIDE RECORDS SUMMARY | 2023-11-15 01:03 | XMS_ITS | Encounter Summary ---
Author Organization [facility] [place] [address] Care Team Providers Care Chemistry Technologist Name Role Phone Dav Carlos MD Primary Care Provider [phone] Reason for Visit * Reason Comments Routine Visit Encounter Details Date Type Department Care Team (Latest Contact Info) Description 11/17/2011 10:30 AM EDT Routine Obstetrics [place] [address] Lisette Elise MD [facility] DR OBST[place] [address] GA: 33w1d Discharge Disposition: Home Social History [...] uncontrolled documented in this encounter Care Teams Chemistry Technologist Relationship Specialty Start Date End Date Dav Carlos MD PCP - General 10/01/10 11/30/12 documented as of this encounter
--- OUTSIDE RECORDS SUMMARY | 2023-11-15 01:03 | XMS_ITS | Encounter Summary ---
Author Organization [facility] [place] [address] Care Team Providers Care Lead Sustainability Specialist Name Role Phone Dav Carlos MD Primary Care Provider [phone] Reason for Visit * Reason Comments Routine Visit Encounter Details Date Type Department Care Team (Latest Contact Info) Description 09/29/2011 2:45 PM EDT Routine Obstetrics [place] [address] Julien Elizabeth MD [facility] DR OBSTETRICS [place] [address] GA: 26w1d Discharge Disposition: Home Social History [...] - 09/29/2011 3:08 PM EDT Welcome to [employer], your secure online access to your electronic medical record at [facility]. Using [employer] you will be able to send messages to your providers, view your test results, renew prescriptions, schedule appointments, and much more. Follow these instructions to enter your personal [employer]una account for the first time: 1. Start your internet browser and type [email or web address] into the address bar. 2. In the New User box on the right-hand side of the Welcome page click the link that states, ???I have an activation code.?? 3. On the Identification page, follow these steps: a) Enter your Azuna activation code: [email or web address] b) Expires: 11/13/11 03:08 PM IMPORTANT: This Activation Code will on the above mentioned date. If you do not sign up for [employer] by this date, you will need to request another activation code. c) Enter your date of , using the calendar tool provided. d) Enter your Zip code. e) Select ???submit?? to go to the next page. 4. On the Create Account page, follow these steps: a) Create a Azuna username. This can???t be changed, so choose [...] record. If you have any questions about [employer] or your Access Code, please call for [place], for [place] or for [place]. If you need technical support, please e-mail [...] 10/13/2011 11:40 am) Patient Info ID: ? [id number] ? : ??[birth year] (31 yrs) Name: ? MIGDALIA MOREIRA ? Visit Date: 10/13/2011 11:28 am Performed By Performed By: ?Neda Hernandez [facility] Attending: ? Arik PENALOZA, E ??Valerie Referred By: ? JULIEN ELIZABETH MD Service(s) Provided UOBFOL - Efw - Growth - Reevaluation - [place] ?[id number] - [phone] Indications Efw, Growth IDDM; Evaluation Num Of [...] Final 10/13/2011 11:40 am) Patient Info ID: [id number] : [birth year] (31 yrs) Name: MIGDALIA MOREIRA Visit Date: 10/13/2011 11:28 am Performed By Performed By: Neda Hernandez [facility] Attending: Lisette Elise MD Referred By: JULIEN ELIZABETH MD Service(s) Provided UOBFOL - Efw - Growth - Reevaluation - [place] [id number] - [phone] Indications Efw, Growth IDDM; Evaluation Num Of [...] uncontrolled documented in this encounter Care Teams Lead Sustainability Specialist Relationship Specialty Start Date End Date Dav Carlos MD PCP - General 10/01/10 11/30/12 documented as of this encounter
--- OUTSIDE RECORDS SUMMARY | 2023-11-15 01:03 | XMS_ITS | Encounter Summary ---
Author Organization [facility] [place] [address] Care Team Providers Care Emergency Communications Operator Name Role Phone Dav Carlos MD Primary Care Provider [phone] Reason for Visit * Reason Comments Routine Visit Encounter Details Date Type Department Care Team ([facility] st Contact Info) Description 11/24/2011 11:15 AM EDT Routine Obstetrics [place] [address] CLINIC, Marilyn Benites MD [facility] OBSTETRICS [place] [address] GA: 34w1d Discharge Disposition: Home Social History [...] Final 12/18/2011 11:15 am) Patient Info ID: ?[id number] ?: ??[birth year] (31 yrs) Name: ?MIGDALIA MOREIRA ?Visit Date: 12/18/2011 08:57 am Performed By Performed By: ?Melissa Villareal RDMS Attending: ? Arik PENALOZA, E ??Valerie Referred By: ? MARILYN HOUSE MD Service(s) Provided UOBFOL - Efw - Growth - Reevaluation - [place] ?[id number] - [id number] Indications Reason for exam and clinical history: [...] Final 12/18/2011 11:15 am) Patient Info ID: [id number] : [birth year] (31 yrs) Name: MIGDALIA MOREIRA Visit Date: 12/18/2011 08:57 am Performed By Performed By: Melissa Villareal [facility] Attending: Lisette Elise MD Referred By: MARILYN HOUSE MD Service(s) Provided UOBFO - [facility] - Growth - Reevaluation - [place] [id number] - [phone] Indications Reason for exam and clinical history: [...] high-risk documented in this encounter Care Teams Emergency Communications Operator Relationship Specialty Start Date End Date Dav Carlos MD PCP - General 10/01/10 11/30/12 documented as of this encounter
--- OUTSIDE RECORDS SUMMARY | 2023-11-15 01:03 | XMS_ITS | Encounter Summary ---
Author Organization [facility] [place] [address] Care Team Providers Care C 13 Catapult Operator Name Role Phone Dav Carlos MD Primary Care Provider [phone] Reason for Visit * Reason Onset Date Comments Ultrasound 06/01/2011 Encounter Details Date Type Department Care Team (Latest Contact Info) Description 05/29/2011 11:00 AM EST Initial consult Obstetrics [place] [address] Lisette Elise MD [facility] DR OBSTETRICS [place] [address] Unspecified high-risk (Primary Dx) Discharge Disposition: Home [...] Procedure Name Priority Date/Time Associated Diagnosis Comments MACHINING TECHNICIAN CYTOLOGY FINAL REPORT Routine 05/29/2011 3:57 PM EST documented in this encounter Results * MACHINING TECHNICIAN CYTOLOGY FINAL REPORT (05/29/2011 3:57 PM EST) Rough Rice Tender Cytology Final Report ? [facility] ? Provider: ?? MARILYN HOUSE Pt. Name: ?? MIGDALIA MOREIRA ? Acc #: ?[id number] ?Pt. ? Col Date: ?? 05/29/2011 ? /Sex: ?1980,(31 ? years),Female ? Rec Date: ?? 05/29/2011 ? LOC: ?5L ? CYTOPATHOLOGY: ??MACHINING TECHNICIAN ? ---Adequacy--- ? Specimen submitted is satisfactory. ? Endocervical component present. ? ---Cytopathologic Diagnosis--- ? NORMAL ? Negative for Intraepithelial Lesion or Malignancy (NILM). ? 06/02/11 ?? Screened by: ??LMY ? 06/02/11 ?? Verified by: ??Satya REYNOSO(ASCP), Julia Zuniga - Dry Ice Machine Operator ? ---Clinical Information--- ? HPV Option: ? Reflex HPV ? Preparation: ?Liquid Based Pap ? Specimen Source: ?Cervical Endocervical LBP ? LMP: ?dec 3 ? Hormones?: ?No ? Hysterectomy?: ?No ?: ?No ?: ?Yes ? I.U.D.?: ?No ? Pelvic Radiation: ? No ? Prior MACHINING TECHNICIAN Therapy?: ? No ? Hist Abnl Pap/Biopsy?: [...] ??For further ? information please contact the [facility] Laboratory. ? Reference: ??Amanda BLACK. ??Publicity Manager of Pap Smear Results. ??In: ? Barbara BS, [facility], ed. ??The Pap Smear. ??[place]: ??[place]endoza, 2002: ? 71-77. ANA GILMAN 05/29/2011 3:57 PM EST Marilyn House MD PATHOLOGY/CYTOLOGY ORDERABLES ANA GILMAN documented in this encounter Visit Diagnoses Diagnosis Unspecified high-risk - Primary documented in this encounter Care Teams C 13 Catapult Operator Relationship Specialty Start Date End Date Dav Carlos MD PCP - General 10/01/10 11/30/12 documented as of this encounter
--- OUTSIDE RECORDS SUMMARY | 2023-11-15 01:03 | XMS_ITS | Encounter Summary ---
Author Organization [facility] Address [facility] [place] [address] Care Team Providers Care Finisher Accordion Name Role Phone Dav Carlos MD Primary Care Provider [phone] Encounter Details Date Type Department Care Team (Latest Contact Info) Description 10/13/2011 10:01 AM EDT - 10/13/2011 11:59 PM EDT [place] [address] Marilyn Reilly MD [facility] OBSTETRICS [place] [address] Unspecified high-risk Discharge Disposition: Home Social History [...] AM EDT Unspecified high-risk TYPE AND SCREEN ([facility]) Routine 10/13/2011 10:02 AM EDT Unspecified high-risk [...] ABO/RH TYPING (10/13/2011 10:14 AM EDT) Pathologist [facility] ABORH Type A Neg ANA FERNÁNDEZIUM Blood specimen (specimen) 10/13/2011 10:14 AM EDT 10/13/2011 12:03 PM EDT Narrative Resulting Agency Comment Spec In Lab Marilyn Reilly MD BLOOD BANK LAB ORD ERABLES Performing Organization Address City/[facility]/ZIP Co de Phone Number ANA FERNÁNDEZIUM * CBC (with Diff) (10/13/2011 10:14 AM EDT) WBC 8.3 4.0 - 10.0 x10(3)/mcL [facility] RBC 3.99 3.93 - 5.22 x10(6)/mcL CERNER MILLENNIUM Hemoglobin 12.5 11.2 - 15.7 gm/dL [facility] Hematocrit 35.7 34.0 - 45.0 % [facility] MILLENNIUM MCV 89.5 79.0 - 94.0 fL [facility]ER MILLENNIUM MCH 31.3 26.6 - 32.[address] [facility] MILLENNIUM MCHC 35.0 32.0 - 36.5 gm/dL [facility] MILL[facility]NIUM Platelets 157 145 - 370 x10(3)/mcL [facility]ER MILLENNIUM RDWSD 43.0 35.0 - 46.[address] [facility] [facility] MILLENNIUM RDWCV 13.2 10.9 - 14.4 % C[facility]ER MILLENNIUM MPV 9.7 9.0 - 12.0 fL ANA LILLYENNIUM Blood specimen (specimen) 10/13/2011 10:14 AM EDT 10/13/2011 10:21 AM EDT Narrative Resulting Agency Comment Spec In Lab Marilyn Reilly MD HEMATOLOGY ORDERAB LES ANA GILMAN documented in this encounter Visit Diagnoses Diagnosis Unspecified high-risk documented in this encounter Care Teams Finisher Accordion Relationship Specialty Start Date End Date Dav Carlos MD PCP - General 10/01/10 11/30/12 documented as of this encounter
--- OUTSIDE RECORDS SUMMARY | 2023-11-15 01:03 | XMS_ITS | Encounter Summary ---
Author Organization [facility] [place] [address] Care Team Providers Care Merry Go Round Operator Name Role Phone Dav Carlos MD Primary Care Provider [phone] Reason for Visit * Reason Comments Hypersomnia Obstructive Sleep Apnea Encounter Details Date Type Department Care Team ([facility] st Contact Info) Description 12/11/2010 8:30 AM EDT [place] [address] [facility] [place] [address] CADY (obstructive sleep apnea) (Primary Dx) Social [...] EDT Sleep Medicine Follow-Up Note (postPSG) HPI: Sraah Cantu was referred for PSG due to [...] 30 y.o. , white female Lives in [place] with 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
--- OUTSIDE RECORDS SUMMARY | 2023-11-15 01:03 | XMS_ITS | Encounter Summary ---
Author Organization [facility] [place] [address] Care Team Providers Care Claim Processing Specialist Name Role Phone Henri Gonzalez DO Primary Care Provider [phone] Encounter Details Date Type Department Care Team (Late st Contact Info) Description 03/17/2010 9:00 AM EST Office Visit Obstetrics [place] [address] Adelfo Mckeon MD [facility] DR OBSTETRICS & [place] [address] Social History Tobacco Use Types Packs/Day Years [...] on filedocumented in this encounter Care Teams Claim Processing Specialist Relationship Specialty Start Date End Date Henri Gonzalez DO [address] [place] [address] PCP - General 03/11/10 09/30/10 documented as of this encounter
--- OUTSIDE RECORDS SUMMARY | 2023-11-15 01:03 | XMS_ITS | Encounter Summary ---
Author Organization [facility] [place] [address] Care Team Providers Care Optical Laboratory Manager Name Role Phone Unavailable Primary Care Provider Unavailabl e Encounter Details Date Type Department Care Team ([facility] Contact Info) Description 03/03/2010 11:30 AM EST Follow-Up Obstetrics [place] [address] Alina Krishna MD [facility] DR OBSTETRICS [place] [address] Social History Tobacco Use Types Packs/Day Years [...]
--- OUTSIDE RECORDS SUMMARY | 2023-11-15 01:03 | XMS_ITS | Encounter Summary ---
Author Organization [facility]onica [facility] [place] [address] Care Team Providers Care Acetylene Operator Name Role Phone Galina Hook MD Primary Care Provider [phone] Reason for Visit * Reason Comments Obstructive Sleep Apnea Encounter Details Date Type Department Care Team ([facility] Contact Info) Description 12/01/2010 1:40 PM EDT Office [place] [address] Rudolph Bustamante MD [facility] [place] [address] CADY (obstructive sleep apnea) (Primary Dx) Social [...] Yes Headaches upon awakening: Yes Daytime Symptoms: Merna Sleepiness Score: 14/24 Upon Awakening: Unrefreshed Daytime [...] 30 y.o. 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 4. Follow up will be arranged after reviewing the sleep study results. documented in this encounter Plan of Treatment Not on file documented as of this encounter Visit Diagnoses Diagnosis CADY (obstructive sleep apnea)- Primary Obstructive sleep apnea (adult) (pediatric) documented in this encounter Care Teams Acetylene Operator Relationship Specialty Start Date End Date Galina Hook MD PCP - General 10/01/10 11/30/12 documented as of this encounter
--- OUTSIDE RECORDS SUMMARY | 2023-11-15 01:03 | XMS_ITS | Encounter Summary ---
Author Organization [facility] [place] [address] Care Team Providers Care Plant Protection Guard Name Role Phone Dav Carlos MD Primary Care Provider [phone] Reason for Visit * Reason Comments Routine Visit Encounter Details Date Type Department Care Team (Latest Contact Info) Description 05/14/2011 10:00 AM EST Initial Obstetrics [place] [address] Amina Mock MD [facility] DR OBSTETRICS [place] [address] GA: 6w3d Discharge Disposition: Home Social History [...] 05/29/2011 11:02 am) Patient Info ID: ? [id number] ? : ??[birth year] (31 yrs) Name: ? MIGDALIA MOREIRA ? Visit Date: 05/29/2011 10:56 am Performed By Performed By: ?Caryl Yepez RDMS Attending: ? Arik PENALOZA, E ??Valerie Referred By: ? AMINA MOCK MD Service(s) Provided UOBTV - Viability - Cervical Length - Transvaginal - ??[id number] Indications Viability, transvaginal Evaluation Num Of Fetuses: [...] Final 05/29/2011 11:02 am) Patient Info ID: [id number] : [birth year] (31 yrs) Name: MIGDALIA MOREIRA Visit Date: 05/29/2011 10:56 am Performed By Performed By: Caryl Yepez [facility] Attending: Lisette Elise MD Referred By: AMINA MOCK MD Service(s) Provided UOBTV - Viability - Cervical Length - Transvaginal - [id number] Indications Viability, transvaginal Evaluation Num Of Fetuses: [...] ? Ordered By: AMINA MOCK ? MR#: [id number] ?LOC: ??5L ? /Sex: ?? 8 (31 years), ? Female ? PROCEDURE: Urine Culture ?SOURCE: U CC ? COLLECTED: 05/14/2011 10:00 ? STARTED: 05/14/2011 16:49 ? FINAL REPORT ? Final Report ? Verified: 15:10 ? No growth (Less than 1,000 cfu/ml). ? ____ [facility] Urine specimen obtained by clean catch procedure (specimen) 05/14/2011 10:00 AM EST 05/14/2011 4:49 PM EST Amina Mock MD MICROBIOLOGY - GENER AL ORDERABLES [facility] documented in this encounter Visit Diagnoses Diagnosis High-risk supervision- Primary Unspecified high-risk Supervision of high-risk Unspecified high-risk Hypertension Unspecified essential hypertension Diabetes mellitus complicating , antepartum Diabetes mellitus, antepartum Obstructive sleep apnea Obstructive sleep apnea (adult) (pediatric) High-risk supervision Unspecified high-risk documented in this encounter Care Teams Plant Protection Guard Relationship Specialty Start Date End Date Dav Carlos MD PCP - General 10/01/10 11/30/12 documented as of this encounter
--- OUTSIDE RECORDS SUMMARY | 2023-11-15 01:03 | XMS_ITS | Encounter Summary ---
Author Organization [facility] [place] [address] Care Team Providers Care Inductor Tester Name Role Phone Dav Carlos MD Primary Care Provider [phone] Encounter Details Date Type Department Care Team (Latest Contact Info) Description 10/13/2011 11:00 AM EDT Routine Obstetrics [place] [address] CLINIC, Lisette Aviles MD [facility] OBSTETRICS [place] [address] GA: 28w1d Discharge Disposition: Home Social History [...] (10/13/2011 12:00 AM EDT) Dispensed? Yes [facility] Blood specimen (specimen) 10/13/2011 10/13/2011 11:47 AM EDT Narrative Resulting Agency Comment Spec In Lab Lisette Elise MD BLOOD BANK PRODUC T ORDERABLES [facility] documented in this encounter Visit Diagnoses Diagnosis High-risk supervision- Primary Unspecified high-risk documented in this encounter Care Teams Inductor Tester Relationship Specialty Start Date End Date Dav Carlos MD PCP - General 10/01/10 11/30/12 documented as of this encounter
--- OUTSIDE RECORDS SUMMARY | 2023-11-15 01:03 | XMS_ITS | Encounter Summary ---
Author Organization [facility] [address] Care Team Providers Care Washing Machine Repairer Name Role Phone Dav Carlos MD Primary Care Provider [phone] Encounter Details Date Type Department Care Team (Latest Contact Info) Description 08/11/2011 9:25 AM EDT - 08/11/2011 11:59 PM EDT Hospital Encounter Ultrasound at [facility] [place] [address] Unspecified high-risk Social History Tobacco Use Types [...] 08/11/2011 11:09 am) Patient Info ID: ? [id number] ? : ??[birth year] (31 yrs) Name: ? MIGDALIA MOREIRA ? Visit Date: 08/11/2011 10:21 am Performed By Performed By: ?Caryl Yepez [facility] Associate: ? Perri PENALOZA, Elvia Turner Attending: ? Arik PENALOZA, E ??Valerie Referred By: ? PHUONG SANTIAGO MD Service(s) Provided UOBS - Screening Morphology - [id number] ? [id number] UOBTV - Viability - Cervical Length - Transvaginal - ??[id number] Indications Screening Morphology Evaluation Num Of Fetuses: [...] Final 08/11/2011 11:09 am) Patient Info ID: [id number] : [birth year] (31 yrs) Name: MIGDALIA MOREIRA Visit Date: 08/11/2011 10:21 am Performed By Performed By: Caryl Yepez [facility] Associate: Elvia Rayo MD Attending: Lisette Elise MD Referred By: PHUONG SANTIAGO MD Service(s) Provided UOBS - Screening Morphology - [id number] UOBTV - Viability - Cervical Length - Transvaginal - [id number] Indications Screening Morphology Evaluation Num Of Fetuses: [...] high-risk documented in this encounter Care Teams Washing Machine Repairer Relationship Specialty Start Date End Date Dav Carlos MD PCP - General 10/01/10 11/30/12 documented as of this encounter
--- OUTSIDE RECORDS SUMMARY | 2023-11-15 01:03 | XMS_ITS | Clinical Summary ---
Author Organization [facility] Address [address] [place] [address] Care Team Providers Care Perforating Machine Operator Name Role Phone Trice Holman MAYELA Primary Care Provider [phone] Social History Tobacco Use Types Packs/Day Years [...] C Antibody Negative Negative 09/14/2022 10:09 EDT [facility] Blood VENOUS BLOOD / Unknown 09/11/2022 12:04 EDT 09/12/2022 21:24 EDT Provider Outr Resulting Lab CHEMISTRY & BLOOD GAS ORDERABLES [facility] [address] [place] [address] from Last 3 Months or Most Recently Relevant to Health Maintenance Care Teams Perforating Machine Operator Relationship Specialty Start Date End Date Trice [place] [address] [address] [place] [address] PCP - General 01/17/23
--- OUTSIDE RECORDS SUMMARY | 2023-11-15 01:03 | XMS_ITS | Encounter Summary ---
Author Organization [facility] [place] [address] Care Team Providers Care Flight Purser Name Role Phone Dav Carlos MD Primary Care Provider Reason for Visit * Reason Comments Routine Visit Encounter Details Date Type Department Care Team ([facility] st Contact Info) Description 05/29/2011 11:30 AM EST Routine Obstetrics [place] [address] CLINIC, Marilyn Benites MD [facility] OBSTETRICS [place] [address] GA: 8w4d Social History Tobacco Use Types [...] EST Unspecified high-risk HIV SCREEN, 4TH GENERATION ([facility]/APD/[facility]H) Routine 05/29/2011 12:38 PM EST Unspecified high-risk HEPATITIS B SURFACE ANTIGEN Routine 05/29/2011 12:38 PM EST Unspecified high-risk CBC (WITH DIFF) Routine 05/29/2011 12:38 PM EST Unspecified high-risk ANTIBODY SCREEN Routine 05/29/2011 12:38 PM EST Unspecified high-risk ASPARTATE AMINOTRANSFERASE Routine 05/29/2011 12:38 PM EST Unspecified high-risk HEMOGLOBIN A1C Routine 05/29/2011 12:38 PM EST Unspecified high-risk SCREEN ([facility]) Routine 05/29/2011 12:27 PM EST Unspecified high-risk [...] BANK LAB ORD ERABLES Performing Organization Address City/[facility]/ZIP Co de Phone Number [facility] * ABO/RH TYPING (05/29/2011 12:38 PM EST) ABORH Type A Neg CERNER MILLENNIUM Blood specimen (specimen) 05/29/2011 12:38 PM EST 05/29/2011 12:43 PM EST Marilyn Reilly MD BLOOD BANK LAB ORD ERABLES [facility] MAXX[facility] * (ABNORMAL) RUBELLA ANTIBODY, IGG (05/29/2011 [...] MD IMMUNOLOGY ORDERAB LES Performing Organization Address [facility] de Phone Number [facility] MILLENNIUM * HEPATITIS B SURFACE ANTIGEN (05/29/2011 12:38 PM EST) HepB Surface Ag Negative Negative [facility] MILL[facility] Blood specimen (specimen) 05/29/2011 12:38 PM EST 05/29/2011 12:40 PM EST Marilyn Reilly MD CHEMISTRY ORDERABL ES Performing Organization Address [facility] Phone Number [facility] MILLENNIUM * SYPHILIS ANTIBODY, IGG (05/29/2011 12:38 PM EST) Syphilis IgG Negative Negative [facility]ER MILLENNIUM Blood specimen (specimen) 05/29/2011 12:38 PM EST 06/01/2011 7:15 AM EST Marilyn Reilly MD IMMUNOLOGY ORDERAB LES Performing Organization Address [facility] Phone Number [facility] MILLENNIUM * (ABNORMAL) CBC (WITH DIFF) [...] Reilly MD CHEMISTRY ORDERABL Performing Organization Address [facility] Co de Phone Number [facility] * Aspartate Aminotransferase (05/29/2011 12:38 PM EST) AST 17 0 - 30 unit/L [facility] Blood specimen (specimen) 05/29/2011 12:38 PM EST 05/29/2011 12:40 PM EST Marilyn Reilly MD CHEMISTRY [facility] Performing Organization Address [facility] de Phone Number [facility] * Hemoglobin A1c (05/29/2011 12:38 PM EST) Hemoglobin A1C 5.9 4.3 - 6.1 % [facility] Est Avg Gluc 123 mg/dL [facility] Comment: eAG equivalents for HbA1c percentages: [...] into estimated average glucose values. ??Diabetes Care 2008:31(8):4665-6313. Blood specimen (specimen) 05/29/2011 12:38 PM EST 05/29/2011 12:40 PM EST Marilyn Reilly MD CHEMISTRY ORDERABL ES Performing Organization Address [facility] Phone Number [facility] * HIV (05/29/2011 12:38 PM EST) Pathologist [facility] HIV 1/2 Ab Negative [facility] Blood specimen (specimen) 05/29/2011 12:38 PM EST 05/29/2011 12:40 PM EST Marilyn Reilly MD IMMUNOLOGY ORDERAB LES Performing Organization Address [facility] Number [facility] * GC/CHLAM (05/29/2011 11:45 AM EST) Pathologist [facility] GC Gene Amp Negative Negative [facility] Comment: The only FDA approved specimen types for this assay are cervix, vagina, urethra and urine. ??The sensitivity and specificity of the assay for other specimen types has not been determined. GC Source Cervical [facility] Chlamydia Gene Amp Negative Negative [facility] Comment: The only FDA approved specimen types for this assay are cervix, vagina, urethra and urine. ??The sensitivity and specificity of the assay for other specimen types has not been determined. Chlamydia Source Cervical [facility] Specimen of unknown material (specimen) 05/29/2011 11:45 AM EST 05/29/2011 4:51 PM EST Marilyn Reilly MD MICROBIOLOGY - GEN ERAL ORDERABLES Performing Organization Address [facility] Number [facility] * Cytopathology Gynecological (05/29/2011 11:45 AM [...] uncontrolled documented in this encounter Care Teams Flight Purser Relationship Specialty Start Date End Date Dav Carlos MD PCP - General 10/01/10 11/30/12 documented as of this encounter
--- OUTSIDE RECORDS SUMMARY | 2023-11-15 01:03 | XMS_ITS | Encounter Summary ---
Author Organization [facility] [place] [address] Care Team Providers Care Hot Car Operator Name Role Phone Dav Carlos MD Primary Care Provider [phone] Reason for Visit * Reason Comments Routine Visit Encounter Details Date Type Department Care Team ([facility] st Contact Info) Description 07/16/2011 11:00 AM EDT Routine Obstetrics [place] [address] Marilyn Reilly MD [facility] DR OBSTETRICS [place] [address] GA: 15w3d Discharge Disposition: Home Social History [...] Marilyn Reilly MD CHEMISTRY ORDERABL ES [facility] * (ABNORMAL) Protein, urine, 24 hour (07/15/2011 [...] high-risk documented in this encounter Care Teams Hot Car Operator Relationship Specialty Start Date End Date Dav Carlos MD PCP - General 10/01/10 11/30/12 documented as of this encounter
--- OUTSIDE RECORDS SUMMARY | 2023-11-15 01:03 | XMS_ITS | Encounter Summary ---
Author Organization [facility] [place] [address] Care Team Providers Care Production Intern Name Role Phone Henri Gonzalez DO Primary Care Provider [phone] Encounter Details Date Type Department Care Team (Late st Contact Info) Description 03/29/2010 2:38 AM EST - 03/29/2010 3:43 AM EST [place] [address] Sivakumar Hopson MD [facility] [place] [address] Discharge Disposition: Home Social History Tobacco Use [...] fluticasone (FLONASE) 50 mcg/Actuation nasal spray 2 Bruin(s), Nasal, Once daily 03/29/2010 12/01/2010 metFORMIN (GLUCOPHAGE) 500 mg tablet 500 MG = 1 Tablet(s), PO, Twice daily 03/17/2010 05/29/2011 omeprazole (PRILOSEC) 40 mg capsule 20 MG = 1 Capsule(s) PO Once daily 03/17/2010 09/29/2011 documented as of this encounter Plan of Treatment Not on file documented as of this encounter Visit Diagnoses Not on filedocumented in this encounter Care Teams Production Intern Relationship Specialty Start Date End Date Henri Gonzalez DO [address] [place] [address] PCP - General 03/11/10 09/30/10 documented as of this encounter
--- OUTSIDE RECORDS SUMMARY | 2023-11-15 01:03 | XMS_ITS | Encounter Summary ---
Author Organization [facility] [place] [address] Care Team Providers Care Ambulance Paramedic Name Role Phone Dav Carlos MD Primary Care Provider [phone] Reason for Visit * Reason Comments Routine Visit Encounter Details Date Type Department Care Team (Latest Contact Info) Description 06/16/2011 11:15 AM EST Routine Obstetrics [place] [address] Amina Mock MD [facility] DR OBSTETRICS [place] [address] GA: 11w1d Discharge Disposition: Home Social History [...] antepartum documented in this encounter Care Teams Ambulance Paramedic Relationship Specialty Start Date End Date Dav Carlos MD PCP - General 10/01/10 11/30/12 documented as of this encounter
--- OUTSIDE RECORDS SUMMARY | 2023-11-15 01:03 | XMS_ITS | Encounter Summary ---
Author Organization [facility] Address [facility] [place] [address] Care Team Providers Care Felling Bucking Supervisor Name Role Phone Dav Carlos MD Primary Care Provider [phone] Reason for Visit * Reason Comments Emesis Encounter Details Date Type Department Care Team ([facility] Contact Info) Description 09/09/2011 2:04 AM EDT - 09/09/2011 7:39 AM EDT [place] [address] Sivakumar Hopson MD [facility] [address] [place] [address] Nausea with vomiting; , excessive vomiting Discharge [...] AFTER YOUR VISIT TO THE EMERGENCY ROOM ([facility]) documented in this encounter Medications at Time [...] Mcmullen RN - 09/09/2011 3:11 AM EDT [facility] here * Esteban Mcmullen RN - 09/09/2011 [...] past evening, after [facility] the patient felt sick to her stomach [...] 1/2 mL 30 x 09/01 Syrg by [facility].(Non-Drug; Combo Route) route. Taking insulin before breakfast, [...] normal. Procedures Bedside U/S-> reassuring heart tones [facility]- N/A Diagnostics: Recent Results (from the [...] Appearance UA Hazy (*) Clear ??? Spec [place] UA 1.014 1.002 - 1.030 ??? Color [...] fluids; Zofran ODT 4 mg; Bedside U/S; Sheet Metal Apprentice consult; D5; Discharge home Wei Martin MD Resident 09/09/11 5567 ED ATTENDING NOTE: I reviewed Dr. Martin's note and agree with the lewis portions of the documented findings and plan of care. I performed an independent history and physical exam myself. I independently reviewed the labs. FHT 140's. [place] much better in the emergency [facility] after [...] Appearance UA Hazy(A) Clear [facility] MILLENNIUM Spec [place] UA 1.014 1.002 - 1.030 CERNER MILLENNIUM [...] Gran % 0.20 0.00 - 0.66 % [facility] Comment: Immature granulocytes(IG's)percentage and absolute count will include metamyelocytes, myelocytes, and promyelocytes. Blood smears from CBCs yielding IG's will be scanned manually for concordance. If this scan disagrees with the automated IG or if promyelocytes are noted, a manual differential will be performed. Rebecca Gran Abs 0.03 0.00 - 0.05 x10(3)/mc L [facility] Blood specimen (specimen) 09/09/2011 4:10 AM EDT 09/09/2011 4:16 AM EDT Sivakumar Hopson MD HEMATOLOGY ORDERABLE S Performing Organization Address [facility] Co de Phone Number [facility] * (ABNORMAL) BETA HYDROXYBUTYRATE (09/09/2011 4:10 AM EDT) Pathologist [facility] BOHB 0.41(H) 0.00 - 0.30 mmol/L [facility] Comment: Reference range: ??0.00-0.30 mmo1/L, based on an overnight fast. ??Children may be higher. Blood specimen (specimen) 09/09/2011 4:10 AM EDT 09/09/2011 4:16 AM EDT Narrative Resulting Agency Comment Spec In Lab Sivakumar Hopson MD CHEMISTRY ORDERABLES Performing Organization Address [facility] Co de Phone Number [facility] * (ABNORMAL) Comprehensive metabolic panel (non-fasting) (09/09/2011 4:10 AM EDT) Glucose Lvl 117 60 - 199 mg/dL [facility] Comment:Diabetes: >=200 mg/d L plus symptoms BUN [...] In Lab Sivakumar Hopson MD CHEMISTRY ORDERABLES [facility] * (ABNORMAL) CBC (with Diff) (09/09/2011 4:10 [...] RN) documented in this encounter Care Teams Felling Bucking Supervisor Relationship Specialty Start Date End Date Dav Carlos MD PCP - General 10/01/10 11/30/12 documented as of this encounter
--- OUTSIDE RECORDS SUMMARY | 2023-11-15 01:03 | XMS_ITS | Encounter Summary ---
Author Organization [facility] [place] [address] Care Team Providers Care Graphic Editor Name Role Phone Dav Carlos MD Primary Care Provider [phone] Encounter Details Date Type Department Care Team (Latest Contact Info) Description 10/13/2011 10:25 AM EDT - 10/13/2011 11:59 PM EDT Hospital Encounter Ultrasound at [facility] [place] [address] Supervision of high-risk ; Diabetes mellitus Social [...] 10/13/2011 11:40 am) Patient Info ID: ? [id number] ? : [birth year] (31 yrs) Name: ? MIGDALIA MOREIRA ? Visit Date: 10/13/2011 11:28 am Performed By Performed By: ?Neda Hernandez [facility] Attending: ? Arik PENALOZA, Lisette ??Valerie Referred By: ? JULIEN ELIZABETH MD Service(s) Provided UOBFOL - Efw - Growth - Reevaluation - [place] ?[id number] - [id number] Indications Efw, Growth IDDM; Evaluation Num Of [...] Final 10/13/2011 11:40 am) Patient Info ID: [id number] : [birth year] (31 yrs) Name: MIGDALIA MOREIRA Visit Date: 10/13/2011 11:28 am Performed By Performed By: Neda Hernandez [facility] Attending: Lisette Elise MD Referred By: JULIEN ELIZABETH MD Service(s) Provided UOBFOL - Efw - Growth - Reevaluation - [place] [id number] - [id number] Indications Efw, Growth IDDM; Evaluation Num Of [...] uncontrolled documented in this encounter Care Teams Graphic Editor Relationship Specialty Start Date End Date Dav Carlos MD PCP - General 10/01/10 11/30/12 documented as of this encounter
--- OUTSIDE RECORDS SUMMARY | 2023-11-15 01:03 | XMS_ITS | Encounter Summary ---
Author Organization [facility] [place] [address] Care Team Providers Care Cloth Bin Packer Name Role Phone Dav Carlos MD Primary Care Provider [phone] Reason for Visit * Reason Comments Routine Visit Encounter Details Date Type Department Care Team (Latest Contact Info) Description 08/27/2011 11:00 AM EDT Routine Obstetrics [place] [address] Lisette Elise MD [facility] [address] OBSTETRICS [place] [address] GA: 21w3d Discharge Disposition: Home Social History [...] reflux documented in this encounter Care Teams Cloth Bin Packer Relationship Specialty Start Date End Date Dav Carlos MD PCP - General 10/01/10 11/30/12 documented as of this encounter
--- OUTSIDE RECORDS SUMMARY | 2023-11-15 01:03 | XMS_ITS | Encounter Summary ---
Author Organization [facility] [place] [address] Care Team Providers Care Clinical Laboratory Manager Name Role Phone Dav Carlos MD Primary Care Provider [phone] Encounter Details Date Type Department Care Team (Latest Contact Info) Description 08/11/2011 9:30 AM EDT Routine Obstetrics [place] [address] CLINIC, Lisette Aviles MD [facility] [place] [address] GA: 19w1d Discharge Disposition: Home Social History [...] applicable documented in this encounter Care Teams Clinical Laboratory Manager Relationship Specialty Start Date End Date Dav Carlos MD PCP - General 10/01/10 11/30/12 documented as of this encounter
--- OUTSIDE RECORDS SUMMARY | 2023-11-15 01:03 | XMS_ITS | Encounter Summary ---
Author Organization [facility] [place] [address] Care Team Providers Care Protein Purification Scientist Name Role Phone Dav Carlos MD Primary Care Provider [phone] Reason for Visit * Reason Comments Non-stress Test Encounter Details Date Type Department Care Team (Latest Contact Info) Description 11/20/2011 2:30 PM EDT Routine Obstetrics and Gynecology at [facility] [place] [address] Alexandre Powers RN GA: 33w4d Discharge Disposition: [...] status documented in this encounter Care Teams Protein Purification Scientist Relationship Specialty Start Date End Date Dav Carlos MD PCP - General 10/01/10 11/30/12 documented as of this encounter
--- OUTSIDE RECORDS SUMMARY | 2023-11-15 01:03 | XMS_ITS | Encounter Summary ---
Author Organization [facility] Veronica [facility] [place] [address] Care Team Providers Care Bridge Painter Name Role Phone Dav Carlos MD Primary Care Provider [phone] Reason for Visit * Reason Comments Hypersomnia Encounter Details Date Type Department Care Team ([facility] Contact Info) Description 12/10/2010 8:00 PM EDT Procedure [place] [address] Marleen Taylor MD [facility] [place] [address] CADY (obstructive sleep apnea) (Primary Dx) Social [...] Study Date: 12/10/2010 Sex: Female Subject Code: [id number] Date of : 1980 Referring Physician: Dav [...] (pediatric) documented in this encounter Care Teams Bridge Painter Relationship Specialty Start Date End Date Dav Carlos MD PCP - General 10/01/10 11/30/12 documented as of this encounter
--- OUTSIDE RECORDS SUMMARY | 2023-11-15 01:03 | XMS_ITS | Encounter Summary ---
Author Organization [facility] [place] [address] Care Team Providers Care Core Driller Name Role Phone Dav Carlos MD Primary Care Provider [phone] Encounter Details Date Type Department Care Team (Late st Contact Info) Description 07/02/2010 Abstract [place]stetrics [place] [address] Alina Krishna MD [facility] [address] [place] [address] Social History Tobacco Use Types Packs/Day Years [...] on filedocumented in this encounter Care Teams Core Driller Relationship Specialty Start Date End Date Dav Carlos MD PCP - General 10/01/10 11/30/12 documented as of this encounter
--- OUTSIDE RECORDS SUMMARY | 2023-11-15 01:03 | XMS_ITS | Encounter Summary ---
Author Organization [facility] [place] [address] Care Team Providers Care Motor Vehicles Inspector Name Role Phone Dav Carlos MD Primary Care Provider [phone] Encounter Details Date Type Department Care Team (Late st Contact Info) Description 08/29/2011 Orders Only Obstetrics [place] [address] Marilyn Reilly MD [facility] DR OBSTETRICS [place] [address] Diabetes in Social History Tobacco Use Types [...] ? HARISH Xiao ?(Age): 1980(31) Med Rec#: ?[id number] ? Sex: ?F ? Site Loc: ?[facility] ? Ht / Wt: ??(cm)/(kg) ? Pt. Loc: ? Echo Lab ? BSA: ? Study Date: ?10/06/2011 ? Pt. Type: Outpatient Study Quality: ?Tape: ? Referring: Marilyn Reilly Ironer Or Presser: Yosef Frankel Diagnosis:CPT Code(s): ??Doppler LTD (44006), ?? Echo F/U (87132), Color Doppler (66188), Indication(s): ??Maternal diabetes Rhythm: SUMMARY: 1. A [...] 10/06/2011 13:02:08 Images reviewed and interpretation verified [facility] Cardiac Ultrasound Laboratory Procedure Note Percy Morales MD - 10/06/2011 Procedure: Pediatric Echocardiogram Patient: HARISH Xiao DOB(Age): 1980(31) Med Rec#: [id number] Sex: F Site Loc: [facility] Ht / Wt: (cm)/(kg) Pt. Loc: Echo Lab BSA: Study Date: 10/06/2011 Pt. Type: Outpatient Study Quality: Tape: Referring: Marilyn Reilly Ironer Or Presser: Yosef Frankel Diagnosis:CPT Code(s): Doppler LTD (29123), Echo F/U (94431), Color Doppler (78305), Indication(s): Maternal diabetes Rhythm: SUMMARY: 1. A [...] 10/06/2011 13:02:08 Images reviewed and interpretation verified [facility] Cardiac Ultrasound Laboratory Marilyn Reilly MD ECHO ORDERABLES documented in this encounter Visit Diagnoses Diagnosis Diabetes in Diabetes mellitus of mother, complicating , childbirth, or the puerperium, unspecified as to episode of care Diabetes in Diabetes mellitus of mother, complicating , childbirth, or the puerperium, unspecified as to episode of care documented in this encounter Care Teams Motor Vehicles Inspector Relationship Specialty Start Date End Date Dav Carlos MD PCP - General 10/01/10 11/30/12 documented as of this encounter
--- OUTSIDE RECORDS SUMMARY | 2023-11-15 01:03 | XMS_ITS | Encounter Summary ---
Author Organization [facility] [place] [address] Care Team Providers Care White Shoe Ragger Name Role Phone Dav Carlos MD Primary Care Provider [phone] Reason for Visit * Reason Comments Routine Visit Encounter Details Date Type Department Care Team ([facility] st Contact Info) Description 07/02/2011 8:45 AM EDT Routine Obstetrics [place] [address] Marilyn Reilly MD [facility] [address] [place] [address] GA: 13w3d Discharge Disposition: Home Social History [...] encounter Miscellaneous Notes * Miscellaneous - Bradley, Chassis Inspector - 07/06/2011 11:55 AM EDT documented in [...] HARISH NEGRON L ?(Age): 1980(31) Med Rec#: ?[id number] ? Sex: ?F ? Site Loc: ?[facility] ? Ht / Wt: ??(cm)/(kg) ? Pt. Loc: ? Echo Lab ? BSA: ? Study Date: ?08/27/2011 ? Pt. Type: Outpatient Study Quality: ?Tape: ? Referring: Grover Elise Director Software Quality Assurance: Yosef Frankel Diagnosis:CPT Code(s): ?? Echo Full (67924), ?? Doppler Full (90502), ??Color Doppler (84215), Indication(s): ??Maternal diabetes Rhythm: SUMMARY: 1. A [...] 08/28/2011 07:53:22 Images reviewed and interpretation verified [facility] Cardiac Ultrasound Laboratory Procedure Note Percy Morales MD - 08/28/2011 Procedure: Pediatric Echocardiogram Patient: HARISH Xiao (Age): 1980(31) Med Rec#: [id number] Sex: F Site Loc: [facility] Ht / Wt: (cm)/(kg) Pt. Loc: Echo Lab BSA: Study Date: 08/27/2011 Pt. Type: Outpatient Study Quality: Tape: Referring: Grover Elise Director Software Quality Assurance: Yosef Frankel Diagnosis:CPT Code(s): Echo Full (45575), Doppler Full (63643), Color Doppler (77627), Indication(s): Maternal diabetes Rhythm: SUMMARY: 1. A [...] 08/28/2011 07:53:22 Images reviewed and interpretation verified [facility] Cardiac Ultrasound Laboratory Marilyn Reilly MD ECHO ORDERABLES documented in this encounter Visit Diagnoses Diagnosis Unspecified high-risk - Primary Diabetes mellitus Type II or unspecified type diabetes mellitus without mention of complication, not stated as uncontrolled Unspecified high-risk documented in this encounter Care Teams White Shoe Ragger Relationship Specialty Start Date End Date Dav Carlos MD PCP - General 10/01/10 11/30/12 documented as of this encounter
--- OUTSIDE RECORDS SUMMARY | 2023-11-15 01:03 | XMS_ITS | Encounter Summary ---
Author Organization [facility] Address [facility] [place] [address] Care Team Providers Care Door And Arrival Attendant Name Role Phone Dav Carlos MD Primary Care Provider [phone] Encounter Details Date Type Department Care Team (Latest Contact Info) Description 10/06/2011 11:50 AM EDT - 10/06/2011 11:59 PM EDT Hospital Encounter Non-Invasive [place] [address] CARDIO, ECHO SIXTY MIN APPT None Lisette Elise MD [facility] OBSTETRICS [place] [address] Diabetes in Discharge Disposition: Home Social History [...] ? HARISH Xiao ?(Age): 1980(31) Med Rec#: ?[id number] ? Sex: ?F ? Site Loc: ?[facility] ? Ht / Wt: ??(cm)/(kg) ? Pt. Loc: ? Echo Lab ? BSA: ? Study Date: ?10/06/2011 ? Pt. Type: Outpatient Study Quality: ?Tape: ? Referring: Marilyn Reilly Imaging Aide: Yosef Frankel Diagnosis:CPT Code(s): ??Doppler LTD (98382), ?? Echo F/U (79053), Color Doppler (11064), Indication(s): ??Maternal diabetes Rhythm: SUMMARY: 1. A [...] 10/06/2011 13:02:08 Images reviewed and interpretation verified [facility] Cardiac Ultrasound Laboratory Procedure Note Percy Morales MD - 10/06/2011 Procedure: Pediatric Echocardiogram Patient: HARISH Xiao (Age): 1980(31) Med Rec#: [id number] Sex: F Site Loc: [facility] Ht / Wt: (cm)/(kg) Pt. Loc: Echo Lab BSA: Study Date: 10/06/2011 Pt. Type: Outpatient Study Quality: Tape: Referring: Marilyn Reilly Imaging Aide: Yosef Frankel Diagnosis:CPT Code(s): Doppler LTD (81084), Echo F/U (91142), Color Doppler (21063), Indication(s): Maternal diabetes Rhythm: SUMMARY: 1. A [...] 10/06/2011 13:02:08 Images reviewed and interpretation verified [facility] Cardiac Ultrasound Laboratory Marilny Reilly MD ECHO ORDERABLES documented in this encounter Visit Diagnoses Diagnosis Diabetes in Diabetes mellitus of mother, complicating , childbirth, or the puerperium, unspecified as to episode of care documented in this encounter Care Teams Door And Arrival Attendant Relationship Specialty Start Date End Date Dav Carlos MD PCP - General 10/01/10 11/30/12 documented as of this encounter
--- OUTSIDE RECORDS SUMMARY | 2023-11-15 01:03 | XMS_ITS | Encounter Summary ---
Author Organization [facility] [place] [address] Care Team Providers Care Mechanic Welder Name Role Phone Dav Carlos MD Primary Care Provider Encounter Details Date Type Department Care Team (Latest Contact Info) Description 05/29/2011 10:30 AM EST - 05/29/2011 11:59 PM [facility] Hospital Encounter Ultrasound at [facility] [place] [address] High-risk supervision Social History Tobacco Use Types [...] 05/29/2011 11:02 am) Patient Info ID: ? [id number] ? : ??[birth year] (31 yrs) Name: ? MIGDALIA MOREIRA ? Visit Date: 05/29/2011 10:56 am Performed By Performed By: ?Caryl Yepez RDMS Attending: ? Arik PENALOZA, E ??Valerie Referred By: ? AMINA MOCK MD Service(s) Provided UOBTV - Viability - Cervical Length - Transvaginal - ??[id number] Indications Viability, transvaginal Evaluation Num Of Fetuses: [...] Final 05/29/2011 11:02 am) Patient Info ID: [id number] : [birth year] (31 yrs) Name: MIGDALIA MOREIRA Visit Date: 05/29/2011 10:56 am Performed By Performed By: Caryl Yepez [facility] Attending: Lisette Elise MD Referred By: AMINA MOCK MD Service(s) Provided UOBTV - Viability - Cervical Length - Transvaginal - [id number] Indications Viability, transvaginal Evaluation Num Of Fetuses: [...] high-risk documented in this encounter Care Teams Mechanic Welder Relationship Specialty Start Date End Date Dav Carlos MD PCP - General 10/01/10 11/30/12 documented as of this encounter
--- OUTSIDE RECORDS SUMMARY | 2023-11-15 01:03 | XMS_ITS | Encounter Summary ---
Author Organization [facility] [place] [address] Care Team Providers Care Legal Billing Clerk Name Role Phone Galina Hook MD Primary Care Provider [phone] Reason for Visit * Reason Comments Obstructive Sleep Apnea Encounter Details Date Type Department Care Team ([facility] Contact Info) Description 12/17/2010 8:00 PM EDT Procedure [place] [address] Rudolph Bustamante MD [facility] [place] [address] CADY (obstructive sleep apnea) (Primary Dx) Social [...] Study Date: 12/17/2010 Sex: Female Subject Code: [id number] Date of : 1980 Referring Physician: Galina [...] (pediatric) documented in this encounter Care Teams Legal Billing Clerk Relationship Specialty Start Date End Date Galina Hook MD PCP - General 10/01/10 11/30/12 documented as of this encounter
--- OUTSIDE RECORDS SUMMARY | 2023-11-15 01:03 | XMS_ITS | Encounter Summary ---
Author Organization [facility] [place] [address] Care Team Providers Care Health Information Technician Name Role Phone Henri Gonzalez DO Primary Care Provider [phone] Encounter Details Date Type Department Care Team (Late st Contact Info) Description 03/03/2010 [place] [address] Chaz Suarez MD [facility] DR OBSTETRICS [place] [address] Social History Tobacco Use Types Packs/Day Years Used Date Smoking Tobacco: Never Assessed Sex and Gender Information Value Date Recorded Sex Assigned at Not on file Gender Identity Female 12/01/2018 2:55 PM EDT Sexual Orientation Not on file documented as of this encounter Plan of Treatment Not on file documented as of this encounter Procedures Procedure Name Priority Date/Time Associated Diagnosis Comments CHESS INSTRUCTOR CYTOLOGY FINAL REPORT Routine 03/03/2010 4:35 PM EST SURGICAL PATHOLOGY REPORT Routine 03/03/2010 4:11 PM EST documented in this encounter Results * PATHOLOGY CHESS INSTRUCTOR CYTOLOGY FINAL REPORT (03/03/2010 4:35 PM EST) Relocation Counselor Cytology Final Report ? [facility] ? Provider: ?? CHAZ SUAREZ ?Pt. Name: ?? MIGDALIA MOREIRA ? Acc #: ?[id number] ?Pt. ? Col Date: ?? 03/03/2010 ?/Sex: ?1980,(29 ? years),Female ? Rec Date: ?? 03/03/2010 ?LOC: ?5L ? CYTOPATHOLOGY: ??CHESS INSTRUCTOR ? ---Adequacy--- ? Specimen submitted is satisfactory. ? Endocervical component present. ? ---Cytopathologic Diagnosis--- ?NORMAL ? Negative for Intraepithelial Lesion or Malignancy (NILM). ? 03/05/10 ?? Screened by: ??SLA ? 03/05/10 ?? Verified by: ??ANGELES Camargo(ASCP), Della Urrutia - ? Structural Steel Worker ? ---Clinical Information--- ? Specimen Source: ?Cervical [...] ??For further ? information please contact the [facility]. ? Reference: ??Amanda BLACK. ??Heating Repair Technician of Pap Smear Results. ??In: ? Barbara BS, [facility], ed. ??The Pap Smear. ??[place]: ??Mendoza, 2002: ? 71-77. ANA GILMAN 03/03/2010 4:35 PM EST Chaz Suarez MD PATHOLOGY/CYTOLOGY O RDERABLES ANA GILMAN * PATHOLOGY SURGICAL PATHOLOGY FINAL REPORT (03/03/2010 4:11 PM EST) Surgical Pathology Report ? [facility] ? Provider: ?? CHAZ SUAREZ ?Pt. Name: ?? MIGDALIA MOREIRA ? Acc #: ?[id number] ?Pt. ? Col Date: ?? 03/03/2010 ?/Sex: [...] on filedocumented in this encounter Care Teams Health Information Technician Relationship Specialty Start Date End Date Henri Gonzalez DO [address] [place] [id number] PCP - General 03/11/10 09/30/10 documented as of this encounter
--- OUTSIDE RECORDS SUMMARY | 2023-11-15 01:03 | XMS_ITS | Encounter Summary ---
Author Organization [facility] [place] [address] Care Team Providers Care Coil Winder Name Role Phone Dav Carlos MD Primary Care Provider [phone] Reason for Visit * Reason Comments Routine Visit Encounter Details Date Type Department Care Team ([facility] st Contact Info) Description 11/10/2011 9:00 AM EDT Routine Obstetrics [place] [address] Marilyn House MD [facility] DR OBSTETRICS [place] [address] GA: 32w1d Discharge Disposition: Home Social History [...] 11/24/2011 10:38 am) Patient Info ID: ? [id number] ? : ??[birth year] (31 yrs) Name: ? MIGDALIA MOREIRA ? Visit Date: 11/24/2011 10:27 am Performed By Performed By: ?Melissa Villareal RDMS Attending: ? Gerardo PENALOZA, Crispin Bishop Referred By: ? MARILYN HOUSE MD Service(s) Provided UOBFOL - Efw - Growth - Reevaluation - Bermudez ?[id number] - [id number] Indications Efw, Growth Evaluation Num Of Fetuses: [...] Final 11/24/2011 10:38 am) Patient Info ID: [id number] : [birth year] (31 yrs) Name: MIGDALIA MOREIRA Visit Date: 11/24/2011 10:27 am Performed By Performed By: Melissa Villareal RDMS Attending: Crispin Carrillo MD Referred By: MARILYN HOUSE MD Service(s) Provided UOBFOL - Efw - Growth - Reevaluation - Bermudez [id number] - [id number] Indications Efw, Growth Evaluation Num Of Fetuses: [...] high-risk documented in this encounter Care Teams Coil Winder Relationship Specialty Start Date End Date Dav Carlos MD PCP - General 10/01/10 11/30/12 documented as of this encounter
--- OUTSIDE RECORDS SUMMARY | 2023-11-15 01:04 | XMS_ITS | Encounter Summary ---
Author Organization [facility] Address [address] [place] [address] Care Team Providers Care Heel Emery Buffer Name Role Phone Unknown, Provider Primary Care Provider [phone] Trice Holman Primary Care Provider [phone] Encounter Details Date Type Department Care Team (Late st Contact Info) Description 09/12/2022 Lab Requisition [facility] Pathology & Laboratory Medicine - [facility] [address] [place] [address] Outr Resulting Lab, Provider Social History Tobacco [...] 4th Generation Negative Negative 09/14/2022 9:52 EDT [facility] Comment:If acute HIV-1 infec tion is suspected in a high risk patient, submit plasma specimen for HIV-1 RNA quantitation test. Blood VENOUS BLOOD / Unknown 09/11/2022 12:04 EDT 09/12/2022 21:23 EDT Narrative [facility] - 09/14/2022 9:52 EDT Fourth Generation assay performed on the Siemens Centaur XPT. Provider Outr Resulting Lab IMMUNOLOGY A ND SEROLOGY ORDERABLES [facility] [address] [place] [address] documented in this encounter Visit Diagnoses Not on filedocumented in this encounter Care Teams Heel Emery Buffer Relationship Specialty Start Date End Date Unknown, Provider, PCP - General 02/20/15 01/16/23 Trice Holman FNP [facility] [place] [address] PCP - General 01/17/23 documented as of this encounter
--- OUTSIDE RECORDS SUMMARY | 2023-11-15 01:04 | XMS_ITS | Encounter Summary ---
Author Organization [facility] Address [address] [place] [address] Care Team Providers Care Certified Personal Trainer Name Role Phone Unavailable Primary Care Provider Unavailabl e Encounter Details Date Type Department Care Team (Late st Contact Info) Description 02/18/2005 Results Only [facility] [address] [place] [address] Benedict Corona MD [address] [place] [address] Social History Tobacco Use Types [...] ? MIGDALIA MONCADA ? Accession #: ? [id number] ? : ? 1980 (Age: 24) ??F [...] wall measures 0.2 cm in maximum thickness. Capacity Planning Analyst sections are submitted as follows: BLOCK DE LA ROSA A1 ?Cystic duct node bisected A2 ?Capacity Planning Analyst sections of cystic duct surgical margin, body and fundus (Dr. Acevedo)/[facility] of Report SETH AYALA 02/18/2005 02/18/2005 15: 17 EST Benedict Corona MD PATHOLOGY ORDERABLES SETH AYALA [address] [place] [address] documented in this encounter Visit Diagnoses Not on filedocumented in this encounter
--- OUTSIDE RECORDS SUMMARY | 2023-11-15 01:04 | XMS_ITS | Encounter Summary ---
Author Organization [facility] Address [address] [place] [address] Care Team Providers Care Siebel Developer Name Role Phone Trice Holman Primary Care Provider [phone] Encounter Details Date Type Department Care Team (Late st Contact Info) Description 01/30/2023 Lab Requisition [facility] Pathology & Laboratory Medicine - [address] [address] Jennie Villegas MD [address] [place] [phone] Encounter for other general examination Social History [...] management options, if applicable. 02/03/2023 9:13 EDT [facility] Final Diagnosis A. CERVIX, BRUSH: -Low-grade squamous intra-epithelial lesion (VERONICA 1). See comment. 02/03/2023 9:13 [facility] Diagnosis Comment Immunoperoxidase stains were performed on this case to further characterize the lesion. ANTIBODY(CLONE)(BL OCK):RESULT P16 (E6H4TM, [place]) (A1): Negative NOTE: One or more of [...] performance characteristics have been determined by [facility] and/or by the referring laboratory. [...] high complexity clinical laboratory testing. 02/03/2023 9:13 [facility] Attestation By the signature below, the attending physician certifies that they have 1) personally conducted a gross and/or microscopic examination of the described specimen(s), and/or personally interpreted the results of laboratory testing of the described specimen(s), and 2) personally rendered or confirmed the above diagnosis. 02/03/2023 9:13 [facility] at 0913 Clinical History +HR HPV 02/03/2023 9:13 [facility] Gross Description A. Received in formalin, on a Histologic S-100 brush, labelled with proper patient identification (initials C, M) and cervical is a 0.4 x 0.2 x 0.2 cm aggregate of corona tissue. The specimen is entirely submitted in A1. ABEL DIAZ(ASCP) 02/01/2023 8:59 02/03/2023 9:13 [facility] Performing Lab [facility] 9:13 [facility] Scanned Images 02/03/2023 9:13 EDT [facility] Tissue CERVIX UTERI STRUCTURE / Unknown 01/29/2023 11:10 EDT 01/30/2023 8:09 EDT Jennie Villegas MD PATHOLOGY ORDERABLES [facility] [address] [place] [address] documented in this encounter Visit Diagnoses Diagnosis Encounter for other general examination documented in this encounter Care Teams Siebel Developer Relationship Specialty Start Date End Date Trice [place] [address] PCP - General 01/17/23 documented as of this encounter
--- OUTSIDE RECORDS SUMMARY | 2023-11-15 01:04 | XMS_ITS | Encounter Summary ---
Author Organization [facility] Address [address] [place] [address] Care Team Providers Care Public Service Officer Name Role Phone Unknown, Provider Primary Care Provider [phone] Trice Holman Primary Care Provider [phone] Encounter Details Date Type Department Care Team (Late st Contact Info) Description 09/12/2022 Lab Requisition [facility] Pathology & Laboratory Medicine - [facility] [address] [place] [address] Outr Resulting Lab, Provider Social History Tobacco [...] Syphilis Serology Negative Negative 09/14/2022 10:[address] [facility] Blood VENOUS BLOOD / Unknown 09/11/2022 12:04 EDT 09/12/2022 21:24 EDT Provider Outr Resulting Lab IMMUNOLOGY A ND SEROLOGY ORDERABLES Performing Organization Address City/[facility]/ZIP Co de Phone Number [facility] [address] [place] [address] * HEPATITIS C AB W REFLEX TO HCV RNA BY PCR (09/11/2022 12:04 EDT) Hep C Antibody Negative Negative 09/14/2022 10:[address] [facility] Blood VENOUS BLOOD / Unknown 09/11/2022 12:04 EDT 09/12/2022 21:24 EDT Provider Outr Resulting Lab CHEMISTRY & BLOOD GAS ORDERABLES Performing Organization Address City/[facility] Co de Phone Number [facility] [address] [place] [address] documented in this encounter Visit Diagnoses Not on filedocumented in this encounter Care Teams Public Service Officer Relationship Specialty Start Date End Date Unknown, Provider, PCP - General 02/20/15 01/16/23 [place] [address] PCP - General 01/17/23 documented as of this encounter
--- OUTSIDE RECORDS SUMMARY | 2023-11-15 01:04 | XMS_ITS | Encounter Summary ---
Author Organization [facility] Address [address] [place] [address] Care Team Providers Care Bridge Operator Slip Name Role Phone Unknown, Provider Primary Care Provider Trice Holman Primary Care Provider [phone] Encounter Details Date Type Department Care Team (Latest Contact Info) Description 09/15/2022 Lab Requisition [facility] Pathology & Laboratory Medicine - [facility] [address] [place] [address] Rosalva Valdez FNP [address] [facility] [address] [place] [address] Encounter for general adult medical [...] Negative Negative 10/01/2022 13:45 EDT [facility] HPV18/45 RNA (HPV18/45) Negative Negative 10/01/2022 13:45 EDT [facility] Papanicolaou smear specimen (specimen) CERVIX UTERI STRUCTURE / Unknown 09/11/2022 11:30 EDT 09/30/2022 9:55 EDT Rosalva Valdez [facility] MICRO[facility] - GENER AL ORDERABLES [facility] [address] [place] [address] * (ABNORMAL) HUMAN PAPILLOMAVIRUS (HPV) DETECTION-HIGH RISK TYPES (09/11/2022 11:30 EDT) HPV other High Risk types, PCR Positive( A) Negative 10/01/2022 13:45 EDT [facility] Comment:E6 OR E7 mRNA from o ne or more types of HPV types 16,18,31,33,35,39,45,51,52,56,58,59,66, and 68 is detected by oil pipeline dispatcher mediated amplification. High and intermediate risk HPV types are associated with most squamous intraepithelial lesions and cervical cancers. Papanicolaou smear specimen (specimen) CERVIX UTERI STRUCTURE / Unknown 09/11/2022 11:30 EDT 09/30/2022 9:55 EDT Rosalva [facility] MICROBIOLOGY - GENER AL ORDERABLES [facility] [address] [place] [address] * PAP TEST (09/11/2022 11:30 EDT) Specimens A. Cervix and/or Endocervix , ThinPrep Imaging System with Manual Evaluation 10/01/2022 13:45 EDT [facility] Specimen Adequacy Satisfactory for Evaluation - transformation zone component present Scant due to excessive blood 10/01/2022 13:45 EDT [facility] General Categorization Negative for intraepithelial lesion or malignancy 10/01/2022 13:45 T [facility] Attestation . 10/01/2022 13:45 [facility] at 1345 Clinical History See below 10/02/19 13:45 T [facility] HPV The result for the Human Papillomavirus (HPV) Detection-High Risk Types is Positive . E6 OR E7 mRNA from one or more types of HPV types 16,18,31,33,35,39 ,45,51,52,56,58,5 9,66, and 68 is detected by oil pipeline dispatcher mediated amplification. High and intermediate risk HPV types are associated with most squamous intraepithelial lesions and cervical cancers. Testing was performed on specimen [id number] and was resulted on 09/30/2022 1647 EDT by FLORIAN, LAB INSTRUMENT RESULTS IN 10/01/2022 13:45 T [facility] Genotyping 16 & 18/45 The results for the HPV Genotypes 16 and 18/45 are Negative for the HPV16 RNA and Negative for the HPV18/45 RNA (HPV18/45). Testing was performed on specimen [id number] and was resulted on 10/01/2022 1345 EDT by FLORIAN, LAB INSTRUMENT RESULTS IN 10/01/2022 13:45 EDT [facility] Performing Lab [facility] 10/01/2022 13:45 T [facility] Scanned Images 10/01/2022 13:45 EDT [facility] Papanicolaou smear specimen (specimen) CERVIX UTERI STRUCTURE / Unknown 09/11/2022 11:30 EDT 09/16/2022 12:32 EDT Rosalva [facility] PATHOLOGY ORDERABLES Performing Organization Address City/[facility] Co de Phone Number [facility] [address] [place] [address] * CHLAMYDIA/N. GONORRHOEAE AMPLIFIED RNA, THINPREP (09/11/2022 11:30 EDT) Neisseria gonorrhoeae Result Negative Negative 09/16/2022 14:31 EDT [facility] Chlamydia trachomatis Result Negative Negative 09/16/2022 14:31 EDT [facility] Papanicolaou smear specimen (specimen) CERVIX UTERI STRUCTURE / Unknown 09/11/2022 11:30 EDT 09/16/2022 9:34 EDT Rosalva PEDRO MICROBIOLOGY - GENER AL ORDERABLES Performing Organization Address City/[facility] Co de Phone Number [facility] [address] [place] [address] documented in this encounter Visit Diagnoses Diagnosis Encounter for general adult medical examination without abnormal findings Unspecified general medical examination Encounter for screening for malignant neoplasm of cervix Screening for malignant neoplasm of the cervix Encounter for screening for human papillomavirus (HPV) Special screening examination for human papillomavirus (HPV) documented in this encounter Care Teams Bridge Operator Slip Relationship Specialty Start Date End Date Unknown, Provider, PCP - General 02/20/15 01/16/23 Trice Holman [place] [address] PCP - General 01/17/23 documented as of this encounter
--- OUTSIDE RECORDS SUMMARY | 2023-11-15 01:04 | XMS_ITS | Encounter Summary ---
Author Organization [facility] Address [address] [place] [address] Care Team Providers Care Panel Raiser Operator Name Role Phone Unavailable Primary Care Provider Unavailabl e Encounter Details Date Type Department Care Team (Late st Contact Info) Description 05/28/2005 Results Only [place] - [facility] conversion [address] [place] [address] Neda Barger, [facility] [address] [place] [phone] Social History Tobacco Use Types Packs/Day [...] cancers. [facility] Report Status Final [id number] [facility] 05/28/2005 11:5 8 EST 06/08/2005 9:07 EST Neda Barger MATH INSTRUCTOR MICROBIOLOGY - GENER AL ORDERABLES [facility] [address] [place] [address] * CYTOPATHOLOGY (05/28/2005 0:00 EST) Pathology Report: CYTOPATHOLOGY REPORT Reports generated via electronic interface contain original data; however they are lacking the format of the original report. Caution should be taken when reading/interpreti ng unformatted reports. Name: ? MIGDALIA MONCADA ? Accession #: ? [id number] : ? 1980 (Age: 25) ??F ?Collect Date: ? 05/28/2005 Location: ? [facility] ? Receive Date: ? 05/29/2005 Provider: ?NEDA BARGER MATH INSTRUCTOR Copy to: ? Specimen/Source: ?ThinPrep Pap Test, Cervix/Endocervix, processed on [employer] ThinPrep Imaging System, with manual evaluation Last Menstrual Period: ? 05/05/05 Other: ? HPVA - HPV testing requested if ASC-US on the current ThinPrep Pap test. ? SPECIMEN ADEQUACY ? Satisfactory for Evaluation - transformation zone component present GENERAL CATEGORIZATION ? Epithelial Cell Abnormality INTERPRETATION ? Squamous Cell Abnormality - Atypical squamous cells, undetermined significance. EDUCATIONAL NOTES/RECOMMENDATI ONS ? [facility] recommends following the 2001 Consensus Guidelines for the Management of Women with Cervical Cytological Abnormalities (PATRICA,2002;287:212 0-9). Management algorithms have been distributed by [facility] and are available online at www.ASCCP.org. ? Document reviewed and electronically signed by: ? MAIA OVALLE MD ? Report Date: ??06/06/2005 15:30 End of Report [facility] 05/28/2005 05/29/2005 Neda Barger MATH INSTRUCTOR PATHOLOGY ORDERABLES [facility] [address] [place] [address] documented in this encounter Visit Diagnoses Not on filedocumented in this encounter
--- OUTSIDE RECORDS SUMMARY | 2023-11-15 01:04 | XMS_ITS | Referral Summary ---
Author Organization [facility] Address [address] [place] [address] Care Team Providers Care Lathe Puller Name Role Phone Trice Holman MAYELA Primary Care Provider [phone] Social History Tobacco Use Types Packs/Day Years [...] C Antibody Negative Negative 09/14/2022 10:09 EDT [facility] Blood VENOUS BLOOD / Unknown 09/11/2022 12:04 EDT 09/12/2022 21:24 EDT Provider Outr Resulting Lab CHEMISTRY & BLOOD GAS ORDERABLES [facility] [address] [place] [address] from Last 3 Months or Most Recently Relevant to Health Maintenance Care Teams Lathe Puller Relationship Specialty Start Date End Date Trice Holman FNP [address] [place], [place] [id number] PCP - General 01/17/23
--- NOTE | 2023-11-15 13:12 | DI.CT_ITS ---
Exam(s) CT CERVICAL SPINE WO EXAM: CT CERVICAL SPINE WO CLINICAL HISTORY: Bilateral cervical radiculopathy, M54.12. TECHNIQUE: Imaging Protocol: Axial computed tomography images with coronal and sagittal reformatted images were created and reviewed CONTRAST MATERIAL: None. COMPARISON: MR MR CERVICAL SPINE WO from 08/04/2023 FINDINGS: Bones: No fractures or dislocations are seen. The alignment of the cervical spine is normal including the craniovertebral junction and cervicothora cic junction. C2-3: Mild disc space narrowing. Small anterior osteophytes C3-4: Mnpg-ng-tfduxduw disc space narrowing, greater anteriorly. Small osteophytes projecting forging press operator olaterally. C4-5: Moderate to severe narrowing the disc space, greater anteriorly. Prominent posteriorly project ing osteophyte on the right side with extension into the central canal which could impinge on the cor d. Narrowing of the AP dimension of the central canal.. C5-6: Mild loss of disc height. Small osteophytes projecting posteriorly. Mild narrowing of the AP dimension of the central canal. C6-7: Normal. C7-T1: Normal. Sinuses: Clear where visualized. Mastoid air cells: Clear where visualized. Soft Tissues: Unremarkable. Thyroid: Normal. Lung apices: Clear where visualized. IMPRESSION: Degenerative disc changes C2-3 through C5-6. There is a prominent right-sided osteophyte projecting into the central canal at C4-5. RADIATION DOSE DELIVERED: Total DLP Total DLP DATA REPOSITORY: All CT scans at this facility are submitted to the National Radiology Data Registry (NRDR) Dose Index Registry (DIR) with the [employer] (ACR). RADIATION OPTIMIZATION: All CT scans at this facility use at least one of these dose optimization te chniques: automated exposure control; mA and/or kV adjustment per patient size (includes targeted exa ms where dose is matched to clinical indication); or iterative reconstruction.
== END ==
PROVIDERS: PCP Nurse Practitioner Family; Visit Provider Neurological Surgery
DX: M50.121 Cervical disc disorder at C4-C5 level with radiculopathy; M50.122 Cervical disc disorder at C5-C6 level with radiculopathy
CPT/HCPCS: 72125

== ENCOUNTER 2024-02-04 00:36 | Outpatient (CLI) | payer MEDICAID, SELFPAY ==
--- NOTE | 2024-02-04 | DI.RAD_ITS ---
Exam(s) XR SACRUM COCCYX EXAM: XR SACRUM COCCYX CLINICAL HISTORY: PAIN IN COCCYX,M53.3. TECHNIQUE: 2D digital imaging was performed. Three images were obtained. COMPARISON: No exams were available for comparison FINDINGS: BONES: No acute fracture is present. No bony destructive lesion is seen. There is marked anti flexion of the coccyx. The distal coccygeal segments are consistent with ???floating coccyx???. These are both normal variants. JOINTS: No dislocation present. There is mild sclerosis of the left sacroiliac joint. No ankylosis i s seen. SOFT TISSUE: Normal. IMPRESSION: Mild sclerosis of the left sacroiliac joint which may represent a sacroiliitis. Please correlate cli nically. DATA REPOSITORY: RADIATION DOSE DELIVERED:
--- OUTSIDE RECORDS SUMMARY | 2024-02-04 00:41 | XMS_ITS | Encounter Summary ---
Author Organization [facility] [place] [address] Care Team Providers Care Senior Web Developer Name Role Phone Rosemary Howe MD Primary Care Provider [phone] Encounter Details Date Type Department Care Team (Latest Contact Info) Description 11/01/2019 11:00 AM EDT TH Visit (TeleHealth) Internal Medicine at [facility] [address] [place] [address] Rosemary Howe MD [facility] [place] [address] Benign paroxysmal positional vertigo, unspecified laterality Social [...] more? Visit our health information library at [email or web address] You can also view health information on [employer], your personal patient account. Log in or sign uptoday. Enter [id number] in the search box to learn more about [facility] for Vertigo: Exercises. Current as of: March 08, 2019?Content Version: 12.5 ?? [id number] [employer]. Care instructions adapted under license by [facility]. If you have questions about a medical condition or this instruction, always ask your healthcare professional. [employer] disclaims any warranty or liability for your use of this information. documented in this encounter Progress Notes * Rosemary Howe MD - 11/01/2019 11:00 AM EDT Telephone visit COVID 19 pandemic She is in [place], [place] Discussed this visit will be billed [...] documented in this encounter Care Teams Senior Web Developer Relationship Specialty Start Date End Date Rosemary Howe MD [facility] [address] [place] [address] PCP - General General Internal Medicine 11/01/1908/21 documented as of this encounter
--- OUTSIDE RECORDS SUMMARY | 2024-02-04 00:41 | XMS_ITS | Clinical Summary ---
Author Organization [facility] Address [facility] [place] [address] Care Team Providers Care Leak Hunter Name Role Phone Unavailable Primary Care Provider Unavailabl e Allergies Active Allergy Reactions Criticality Noted Date Comments Red Blood Cells High 12/23/2011 Antibodies-Difficult to Crossmatch DO NOT REMOVE Please contact the Blood Bank at [phone] for questions. Medications Medication Sig Dispensed Refills [...] 2 Overview (05/09/2013): EGD 05/2003 (Dr [place], [facility]): normal, no biopsies taken Assessment & Plan (09/29/2011 3:04 PM EDT): Switched from prilosec to zantac Carpal tunnel syndrome 05/14/2011 Overview (05/09/2013): eval 12/2003 Dr Ortiz ([facility]), bilat symptoms R>L NCS: mild median nerve entrapment at wrists, L>R. No evidence for ulnar nerve entrapment or neuropathy. Scanned in CIS Depression Overview (05/09/2013): Hx depression prior to 2003 Re-eval 2003 with PCP at [facility] Prior tx paroxetine, lexapro Post [...] R wrist, s/p excision 06/29, Dr Cabrales ([facility]) Healthcare maintenance Overview (05/09/2013): Records [place] [facility] received 03/2013. tdap 02/14/2009 (we gave at initial visit 01/29 --did not have records at the time of that visit) Resolved Problems Problem Noted Date Diagnosed Date Resolved Date Supervision of high-risk 05/14/2011 05/12/2012 Overview (11/10/2011): Team MFM Delivery plan GBS date & Result Cystic fibrosis choice declined Aneuploidy choice declined Others screening tests Infant nutrition Childbirth education preferences Contraception plan depo [...] Immunizations Name Administration Dates Next Due Hepatitis B, Unspecified Formulation 01/18/2004 Influenza PF, Split 05/14/2011 Influenza Unspecified Formulation 06/23/2018 Influenza Vaccine, Whole 03/21/2008 MMR Vaccine LIVE 12/20/2011 Meningococcal Conjugate 01/23/2004 Pneumococcal 23-Valent Polysaccharide (Pneumovax 23) 04/09/2008 Rho(D) Immune Globulin (RhoGAM),IM 10/13/2011 Td Adult (not absorbed) 01/18/2004 Tdap (Adacel, Boostrix) 01/30/2013 Family History Medical History Relation Comments [...] test 03/05/2022 03/05/2017 Lipid Screening 03/05/2022 03/05/2017, 06/04/2015, 01/30/2013 PAP Smear 03/05/2022 03/05/2017, 05/20, 03/03/2010 Tetanus/Diphtheria/Pertussis Vaccines (2 - Td or Tdap) 01/30/2023 01/30/2013, 01/18/2004 Covid-19 Vaccine (1 - 2022-2 4 season) 2023 Influenza (Flu) vaccine (1 o f 1 - Influenza standard series) 12/19/2023 06/23/2018, 05/14/2011, 03/21/2008 HIV screen Completed 05/29/2011 Procedures Procedure Name Priority Date/Time Associated Diagnosis Comments BASIC METABOLIC PANEL Routine 10/14/2017 3:46 PM EDT Fatigue due to depression HEMOGLOBIN A1C Routine 08/19/2017 3:27 PM EDT Type 2 diabetes mellitus without complication, without long-term current use of insulin U ALBUMIN/CRE RATIO Routine 06/03/2017 9 :41 AM EST Type 2 diabetes mellitus without complication, without long-term current use of insulin HPV Routine 03/05/2017 9:28 AM EST HOUSE MOVER SUPERVISOR CYTOLOGY FINAL REPORT Routine 03/05/2017 9:28 AM EST LIPID PANEL (REFLEX DIRECT LDL) Routine 03/05/2017 8:17 AM EST Dyslipidemia HIV SCREEN, 4TH GENERATION ([facility]/CGP/APD/NLH) Routine 05/29/2011 12:38 PM EST Unspecified high-risk from Last 3 Months or Most Recently Relevant to Health Maintenance Results * (ABNORMAL) Basic Metabolic Panel (non-fasting) (10/14/2017 3:46 PM EDT) Glucose 243(H) 65 - 199 mg/dL [facility] Comment:Diabetes: >=200 mg/d L plus symptoms Blood Urea Nitrogen 16 8 - 18 mg/dL [facility] Creatinine 0.63(L) 0.70 - 1.20 mg/dL [facility] Sodium 139 135 - 145 mmol/L [facility] Potassium 4.0 3.5 - 5.0 mmol/L [facility] Comment: Please note: ??Patients with WBC >100,000 may have falsely elevated Potassium levels. ??For accurate Potassium quantification in these patients send serum separator tube (gold top) for subsequent determinations. ??Contact the Clinical Chemistry Laboratory if there are any questions. Chloride 99 98 - 107 mmol/L [facility] Carbon Dioxide 25 22 - 31 mmol/L [facility] Anion Gap 15 5 - 15 mmol/L [facility] Calcium 9.2 8.5 - 10.5 mg/dL [facility] Est Glomerular Filtration Rate 113 >=60 mL/min/1. 73 m?? [facility] Comment: The eGFR was calculated using the CKD-EPI equation. As with all creatinine based estimates of kidney function, eGFR values calculated with the CKD-EPI equation are not accurate in patients with acute kidney failure, extremes of body mass or the acutely ill. http://[employer]/eXIthera Pharmaceuticalsnkdep http://[employer]/[facility] eGFR 131 >=60 mL/min/1. 73 m?? [facility] Comment: The eGFR was calculated using the CKD-EPI equation. As with all creatinine based estimates of kidney function, eGFR values calculated with the CKD-EPI equation are not accurate in patients with acute kidney failure, extremes of body mass or the acutely ill. http://[employer]aceuticalsnkdep http://[employer]/[facility] Blood specimen (specimen) 10/14/2017 3:46 PM EDT 10/14/2017 3:52 PM EDT Narrative Resulting Agency Comment Spec In Lab Malgorzata Pappas APRN CHEMISTRY ORDERABLES [facility] [place] [address] * (ABNORMAL) Hemoglobin A1c (08/19/2017 3:27 PM EDT) Hemoglobin A1c 6.9(H) 4.3 - 5.6 % [facility] Comment: Reference Range: 4.3 - [...] Mellitus, Diabetes Care 2013; 36: Suppl. 1, K87-67 Estimated Average Glucose 151 mg/dL [facility] Comment: eAG equivalents for HbA1c [...] into estimated average glucose values. ??Diabetes Care 2008:31(8):1968-2580. Blood specimen (specimen) 08/19/2017 3:27 PM EDT 08/19/2017 3:34 PM EDT Narrative Resulting Agency Comment Spec In Lab Malgorzata Pappas APRN CHEMISTRY ORDERABLES [facility] [place] [address] * U Albumin/Cre Ratio (06/03/2017 9:41 AM EST) Albumin / Creatinin Ratio, Urine Not Calculated 0 - 29 mcg/mg Cr [facility] Comment: Reference Ranges: <30 mcg/mg: [...] [employer] Supplements (2012) 2, 357? 362 Albumin, Urine <3.0 mg/L [facility] Creatinine, Urine 120 mg/dL [facility] Urine specimen (specimen) 06/03/2017 9:41 AM EST 06/03/2017 9:51 AM EST Narrative Resulting Agency Comment Spec In Lab Jacqueline Cleveland MD URINE ORDERABLES Performing Organization Address [facility] Co de Phone Number [facility] [place] [address] * HPV (03/05/2017 9:28 AM EST) HPV16 NEGATIVE NEGATIVE [facility] HPV 18 [...] Resulting Agency Comment Spec In Lab Rosalva Xiao Beauken VENEER STOCK LAYER PATHOLOGY/CYTOLOGY O RDERABLES Performing Organization Address [facility] Co de Phone Number [facility] [place] [address] * Fur Dyer Cytology Final Report (03/05/2017 9:28 AM EST) Fur Dyer Cytology Final Report [id number] ? Location: [facility] The signing pathologist has (i) examined the relevant preparation(s) for the specimen(s) and (ii) rendered or confirmed the diagnosis(es). . ? Fur Dyer Final DIAGNOSIS Normal Negative for Intraepithelial Lesion or Malignancy (NILM). For consensus guidelines for the management of cervical cancer screening test results, please see: ?? http://www.asccp.o rg . Electronically signed by: ??Supriya REYNOSO(ASCP), Coleen Whiteside Verified: ??03/17/2017 ?Electrocardiographic Technician Performed at: ??-[facility] Dept. of Pathology, [place], [place] HPV RESULTS HPV16 (Result) ?Negative HPV18 [...] Clinical Genomics and Advanced Technology (CGAT) at [facility]. ? - Marvin Lorenzana, PhD, [facility], Director-[facility] STATEMENT OF ADEQUACY Specimen submitted is satisfactory. Endocervical component present. CLINICAL INFORMATION HPV Option: ?Concurrent HPV and Pap Preparation: ? Liquid based Pap Specimen Source: ? Cervical/Endocervi loni LMP: ? n/a Hormones?: ? Yes Hysterectomy?: ? No ?: ? No ?: ? No I.U.D.?: ? No Pelvic Radiation: ?No Prior HOUSE MOVER SUPERVISOR Therapy?: ?No Hist Abnl Pap/Biopsy?: ?? No Hist of HPV Vaccine?: ?No Hist of Smoking?: ?No Hist of NIKHIL exposure?: ?? No ICD Diagnosis: ? Z12.4 Encounter for screening for malignant neoplasm of cervix Clinical Data, Significant Therapy and Clinical Impression ?? : . CLINICAL INFORMATION ?_ This Pap Test has been evaluated with the assistance of the [employer] Pap Test Imaging System. Note: The Pap test is a screening test for cervical cancer with an inherent false-negative rate dependent upon several variables. ??For further information please contact the [facility] Laboratory. Reference: ??Amanda CS. ??Health And Safety Instructor of Pap Smear Results. ??In: ??Barbara BS, [facility], ed. ??The Pap Smear. ??[place]: ??Mendoza, 2002: ??71-77. [facility] 03/05/2017 9:28 AM EST Rosalva Cardenas APRN PATHOLOGY/CYTOLOGY O RDERABLES [facility] [place] [address] * (ABNORMAL) Lipid Panel (03/05/2017 8:17 AM EST) Cholesterol, Total 166 <=239 mg/dL [facility] Triglyceride 309(H) <=199 mg/dL [facility] HDL Cholesterol 32(L) >=40 mg/dL [facility] LDL Cholesterol 72 <=190 mg/dL [facility] Cholesterol/HDL Ratio 5.2 ratio [facility] Lipid Interpretation See Note [facility] Comment: Lipid management should be guided by a patient? s ASCVD risk, goals and preferences. ACC/AHA Guidelines recommend high intensity statin if clinical ASCVD or LDL greater than or equal to 190 mg/dL. http://CareCloud.com/CKH-DLK-Nxbyhrbyl Adults aged 40-75 with LDL 70-189 mg/dL should have their 10 year ASCVD risk estimated with the ACC/AHA ASCVD risk jewelry estimator http://tools.acc.org/ZUBNC-Thve-Jiathwmde/ Statin should be discussed if risk greater [...] In Lab Pita Narayanan MD CHEMISTRY ORDERABLES [facility] [place] [address] * HIV (05/29/2011 12:38 PM EST) HIV 1/2 Ab Negative [facility] Blood specimen (specimen) 05/29/2011 12:38 PM EST 05/29/2011 12:40 PM EST Marilyn Reilly MD CHEMISTRY ORDERABL ES [facility] from Last 3 Months or Most Recently [...]
--- OUTSIDE RECORDS SUMMARY | 2024-02-04 00:41 | XMS_ITS | Encounter Summary ---
Author Organization [facility] [place] [address] Care Team Providers Care Dental Practitioner Name Role Phone Carlos Alberto Ag MD Primary Care Provider Reason for Visit * Reason Onset Date Comments Other 09/12/2019 Encounter Details Date Type Department Care Team ([facility] st Contact Info) Description 09/12/2019 Telephone [place] [phone] Carmen Vaca [facility] [place] [address] Other Social History Tobacco Use Types Packs/Day [...] Notes * Telephone Encounter - Carmen Vaca [facility] - 09/12/2019 12:54 PM EDT Primary Care & Psychiatry Collaborative Care Called to follow up on IMPACT, mood, referral to Dr. Sanchez, safety concerns. Left and my message. Carmen Vaca M.S., [facility] Behavioral Health Clinician ([facility]) Primary Care & Psychiatry Collaborative Care [facility] Direct # [phone] Clinic#: [phone] Pager [phone] documented in this encounter Plan of Treatment Not on file documented as of this encounter Visit Diagnoses Not on filedocumented in this encounter Care Teams Dental Practitioner Relationship Specialty Start Date End Date Carlos Alberto Ag MD [facility] [place] [address] PCP - General General Internal Medicine 04/26/17 10/31/19 documented as of this encounter
--- OUTSIDE RECORDS SUMMARY | 2024-02-04 00:41 | XMS_ITS | Encounter Summary ---
Author Organization [facility] [place] [address] Care Team Providers Care American Sign Language Teacher Name Role Phone Rosemary Howe MD Primary Care Provider [phone] Encounter Details Date Type Department Care Team (Late st Contact Info) Description 09/15/2019 Telephone [place] [phone] Ofe Craig Social History Tobacco Use Types [...] on filedocumented in this encounter Care Teams American Sign Language Teacher Relationship Specialty Start Date End Date Rosemary Howe MD [facility] [address] [place] [address] PCP - General General Internal Medicine 11/01/1908/21 documented as of this encounter
--- OUTSIDE RECORDS SUMMARY | 2024-02-04 00:41 | XMS_ITS | Encounter Summary ---
Author Organization [facility] [place] [address] Care Team Providers Care Parking Patroller Name Role Phone Carlos Alberto Ag MD Primary Care Provider Reason for Visit * Reason Onset Date Comments Other 09/06/2019 Encounter Details Date Type Department Care Team ([facility] st Contact Info) Description 09/06/2019 Telephone [place] [phone] Carmen Vaca [facility] [place] [address] Other Social History Tobacco Use Types Packs/Day [...] Notes * Telephone Encounter - Carmen Vaca [facility] - 09/06/2019 9:46 AM EDT Primary Care & Psychiatry Collaborative Care Tried to call both listed phone numbers to follow up on IMPACT and referral to Dr. Sanchez. Left .Followed up with my message with attached questionnaires. Carmen Vaca M.S., [facility] Behavioral Health Clinician ([facility]) Primary Care & Psychiatry Collaborative Care [facility] Direct # [phone] Clinic#: [phone] Pager [phone] documented in this encounter Plan of Treatment Not on file documented as of this encounter Visit Diagnoses Not on filedocumented in this encounter Care Teams Parking Patroller Relationship Specialty Start Date End Date Carlos Alberto Ag MD [facility] [place] [address] PCP - General General Internal Medicine 04/26/17 10/31/19 documented as of this encounter
--- OUTSIDE RECORDS SUMMARY | 2024-02-04 00:41 | XMS_ITS | Encounter Summary ---
Author Organization [facility] [place] [address] Care Team Providers Care Admission Nurse Name Role Phone Carlos Alberto Ag MD Primary Care Provider Reason for Visit * Reason Onset Date Comments Medication Refill 09/21/2019 Encounter Details Date Type Department Care Team (Late st Contact Info) Description 09/21/2019 [place] [address] Carlos Alberto Ag MD [facility] [address] [place] [address] Menstrual disorder Social History Tobacco Use Types [...] tract documented in this encounter Care Teams Admission Nurse Relationship Specialty Start Date End Date Carlos Alberto Ag MD [facility] [address] [address] PCP - General General Internal Medicine 04/26/17 10/31/19 documented as of this encounter
--- OUTSIDE RECORDS SUMMARY | 2024-02-04 00:41 | XMS_ITS | Encounter Summary ---
Author Organization [facility] [place] [address] Care Team Providers Care Clinical Systems Analyst Name Role Phone Carlos Alberto Ag MD Primary Care Provider Reason for Visit * Reason Onset Date Comments Medication Refill 09/09/2019 Encounter Details Date Type Department Care Team (Late st Contact Info) Description 09/09/2019 Ref[place] [address] Carlos Alberto Ag MD [facility] [address] [place] [address] Uncontrolled type 2 diabetes mellitus without complication, [...] insulin documented in this encounter Care Teams Clinical Systems Analyst Relationship Specialty Start Date End Date Carlos Alberto Ag MD [facility] [place] [address] PCP - General General Internal Medicine 04/26/17 10/31/19 documented as of this encounter
--- OUTSIDE RECORDS SUMMARY | 2024-02-04 00:42 | XMS_ITS | Encounter Summary ---
Author Organization [facility] [place] [address] Care Team Providers Care Care Provider Name Role Phone Carlos Alberto Ag MD Primary Care Provider Reason for Visit * Reason Comments Medication Refill Encounter Details Date Type Department Care Team (Late st Contact Info) Description 01/14/2018 [place] [address] Carlos Alberto Ag MD [facility] [place] [address] Uncontrolled type 2 diabetes mellitus without complication, [...] insulin documented in this encounter Care Teams Care Provider Relationship Specialty Start Date End Date Carlos Alberto Ag MD [facility] [place] [address] PCP - General General Internal Medicine 04/26/17 10/31/19 documented as of this encounter
--- OUTSIDE RECORDS SUMMARY | 2024-02-04 00:42 | XMS_ITS | Encounter Summary ---
Author Organization Counts Include [facility] Address [facility] [place] [address] Care Team Providers Care Telecommunication Engineer Name Role Phone Carlos Alberto Ag MD Primary Care Provider Encounter Details Date Type Department Care Team (Late st Contact Info) Description 09/21/2017 Orders Only [place] [phone] Adan Markham MD [facility] [place] [address] Social History Tobacco Use Types Packs/Day Years [...] on filedocumented in this encounter Care Teams Telecommunication Engineer Relationship Specialty Start Date End Date Carlos Alberto Ag MD [facility] [place] [address] PCP - General General Internal Medicine 04/26/17 10/31/19 documented as of this encounter
--- OUTSIDE RECORDS SUMMARY | 2024-02-04 00:42 | XMS_ITS | Encounter Summary ---
Author Organization [facility] [place] [address] Care Team Providers Care Computer Systems Technology Instructor Name Role Phone Carlos Alberto Ag MD Primary Care Provider Reason for Visit * Reason Onset Date Comments Medication Refill 07/07/2019 Encounter Details Date Type Department Care Team (Late st Contact Info) Description 07/07/2019 [place] [address] Carlos Alberto gA MD [facility] [place] [address] Essential hypertension; Uncontrolled type 2 diabetes mellitus [...] insulin documented in this encounter Care Teams Computer Systems Technology Instructor Relationship Specialty Start Date End Date Carlos Alberto Ag MD [facility] [place] [address] PCP - General General Internal Medicine 04/26/17 10/31/19 documented as of this encounter
--- OUTSIDE RECORDS SUMMARY | 2024-02-04 00:42 | XMS_ITS | Encounter Summary ---
Author Organization [facility] [place] [address] Care Team Providers Care Inspector Hot Forgings Name Role Phone Enoch Medina MD Primary Care Provider [phone] Reason for Visit * Reason Comments Medication Refill Encounter Details Date Type Department Care Team ([facility] st Contact Info) Description 10/16/2016 Refill Internal Medicine at [facility] [address] [place] [address] Pita Narayanan MD [facility] [place] [address] Essential hypertension Social History Tobacco Use Types [...] hypertension documented in this encounter Care Teams Inspector Hot Forgings Relationship Specialty Start Date End Date Enoch Medina MD [facility] [place] [address] PCP - General Family Medicine 08/22/20 06/03/21 documented as of this encounter
--- OUTSIDE RECORDS SUMMARY | 2024-02-04 00:42 | XMS_ITS | Encounter Summary ---
Author Organization [facility] [place] [address] Care Team Providers Care Director Software Quality Assurance Name Role Phone Carlos Alberto Ag MD Primary Care Provider Encounter Details Date Type Department Care Team (Late st Contact Info) Description 08/09/2018 Orders Only Internal Medicine at [facility] [place] [address] Carlos Alberto Ag MD [facility] [address] [place] [address] Social History Tobacco Use Types Packs/Day Years [...] filedocumented in this encounter Care Teams Director Software Quality Assurance Relationship Specialty Start Date End Date Carlos Alberto Ag MD [facility] [place] [address] PCP - General General Internal Medicine 04/26/17 10/31/19 documented as of this encounter
--- OUTSIDE RECORDS SUMMARY | 2024-02-04 00:42 | XMS_ITS | Encounter Summary ---
Author Organization [facility] [place] [address] Care Team Providers Care Pediatric Hospitalist Name Role Phone Carlos Alberto Ag MD Primary Care Provider Encounter Details Date Type Department Care Team (Late st Contact Info) Description 10/27/2018 Telephone [place] [phone] Nela Haines Social History Tobacco Use Types [...] on filedocumented in this encounter Care Teams Pediatric Hospitalist Relationship Specialty Start Date End Date Carlos Alberto Ag MD [facility] GENER[facility] [place] [address] PCP - General General Internal Medicine 04/26/17 10/31/19 documented as of this encounter
--- OUTSIDE RECORDS SUMMARY | 2024-02-04 00:42 | XMS_ITS | Encounter Summary ---
Author Organization [facility] [place] [address] Care Team Providers Care Care Management Associate Name Role Phone Carlos Alberto Ag MD Primary Care Provider Reason for Referral * Consultation (Routine) - Closed Specialty Diagnoses / Procedures Referred By Jay flores Referred To Contact Internal Medicine Diagnoses Severe episode of recurrent major depressive disorder, without psychotic features Carmen Vaca [facility] [place] [address] Gail Sanchez MD [facility] [place] [address] Referral ID Status Reason Start Date Expiration Date V isits Requested Visits Authorized [id number] Closed Specialty Service Requested 08/28/2019 08/27/2020 1 1 Encounter Details Date Type Department Care Team (Late st Contact Info) Description 08/28/2019 Orders [place] [address] Carmen Vaca [facility] [address] PSYCHIATRY DEPT [place], [place] [id number] Severe episode of recurrent major depressive disorder, [...] features documented in this encounter Care Teams Care Management Associate Relationship Specialty Start Date End Date Carlos Alberto Ag MD [facility] [address] PCP - General General Internal Medicine 04/26/17 10/31/19 documented as of this encounter
--- OUTSIDE RECORDS SUMMARY | 2024-02-04 00:42 | XMS_ITS | Encounter Summary ---
Author Organization [facility] [place] [address] Care Team Providers Care Range Ecologist Name Role Phone Pita Narayanan MD Primary Care Provider [phone] Reason for Visit * Reason Onset Date Comments Medication Problem 01/12/2017 depo-provara Encounter Details Date Type Department Care Team (Late st Contact Info) Description 01/12/2017 Refill Internal Medicine at [facility] [address] [facility] [place] [address] Edel Rubi Social History Tobacco Use Types [...] 3:17 PM EDT Spoke with Keira at [facility]. She did actually receive the 104mg Depo [...] - 01/13/2017 8:09 AM EDT Spoke with [facility] pharmacist. Patient's current prescription for Depo-Provara is [...] Edel Putnam - 01/12/2017 3:16 PM EDT [facility] Percy [place] called to say that the depo-prevara is on back on order is there something else we want to prescribe? Pt is due in 4 days documented in this encounter Plan of Treatment Not on file documented as of this encounter Visit Diagnoses Not on filedocumented in this encounter Care Teams Range Ecologist Relationship Specialty Start Date End Date Pita Narayanan MD [facility] [address] [facility] [place] [address] PCP - General General Internal Medicine 01/28/1604/22 documented as of this encounter
--- OUTSIDE RECORDS SUMMARY | 2024-02-04 00:42 | XMS_ITS | Encounter Summary ---
Author Organization [facility] [place] [address] Care Team Providers Care Vinyl Cutter Name Role Phone Pita Narayanan MD Primary Care Provider [phone] Encounter Details Date Type Department Care Team (Latest Contact Info) Description 03/05/2017 8:10 AM EST Laboratory Appointment Lab at [place] [address] [place] [address] Dyslipidemia; Uncontrolled type 2 diabetes mellitus without [...] B Surface Antibody (03/05/2017 8:17 AM EST) Hepatitis B Surface Antibody, Quantitative <3.5 IU/L [facility] Comment: HepB Surface Ab Quant: Unvaccinated: < 8.5 IU/L Vaccinated: > 11.5 IU/L Hepatitis B Surface Antibody Negative [facility] Comment: Patient is presumed to be not vaccinated or immune to HBV infection. Expected Results: Vaccinated: Positive Unvaccinated: Negative Blood specimen (specimen) 03/05/2017 8:17 AM EST 03/05/2017 9:56 AM EST Narrative Resulting Agency Comment Spec In Lab Pita Narayanan MD CHEMISTRY ORDERABLES [facility] [place] [address] * (ABNORMAL) Lipid Panel (03/05/2017 8:17 AM EST) Cholesterol, Total 166 <=239 mg/dL [facility] Triglyceride 309(H) <=199 mg/dL [facility] HDL Cholesterol 32(L) >=40 mg/dL [facility] LDL Cholesterol 72 <=190 mg/dL [facility] Cholesterol/HDL Ratio 5.2 ratio [facility] Lipid Interpretation See Note [facility] Comment: Lipid management should be guided by a patient? s ASCVD risk, goals and preferences. ACC/AHA Guidelines recommend high intensity statin if clinical ASCVD or LDL greater than or equal to 190 mg/dL. http://ClarourAttensa.com/AIL-IKR-Nrnbxzfaj Adults aged 40-75 with LDL 70-189 mg/dL should have their 10 year ASCVD risk estimated with the ACC/AHA ASCVD risk asp net software developer http://tools.acc.org/TGTON-Hezq-Dcpgviwuy/ Statin should be discussed if risk greater [...] In Lab Pita Narayanan MD CHEMISTRY ORDERABLES [facility] [place] [address] documented in this encounter Visit Diagnoses Diagnosis Dyslipidemia Other and unspecified hyperlipidemia Uncontrolled type 2 diabetes mellitus without complication, without long-term current use of insulin Healthcare maintenance Routine general medical examination at a health care facility documented in this encounter Care Teams Vinyl Cutter Relationship Specialty Start Date End Date Pita Narayanan MD [facility] [place] [address] PCP - General General Internal Medicine 01/28/1604/22 documented as of this encounter
--- OUTSIDE RECORDS SUMMARY | 2024-02-04 00:42 | XMS_ITS | Encounter Summary ---
Author Organization [facility] [place] [address] Care Team Providers Care Specialized Developer Name Role Phone Pita Narayanan MD Primary Care Provider [phone] Reason for Visit * Reason Onset Date Comments Prior [facility] Encounter Details Date Type Department Care Team (Late st Contact Info) Description 08/21/2016 Refill Family Medicine at [address] [place] [address] Michael Vazquez MA Type 2 diabetes mellitus without complication, unspecified terminal superintendent insulin use status (Primary Dx) Social History [...] Authorization for Primary [place] [address] Patient: Sarah Moncada Patient : 1980 Subscriber Insurance: [employer] Sent via: Swarmforce Thomas: [id number] Physician: Pita Narayanan MD Return [...] 2 diabetes mellitus without complication, unspecified terminal superintendent insulin use status- Primary documented in this encounter Care Teams Specialized Developer Relationship Specialty Start Date End Date Pita Narayanan MD [facility] [address] [place] [address] PCP - General General Internal Medicine 01/28/1604/22 documented as of this encounter
--- OUTSIDE RECORDS SUMMARY | 2024-02-04 00:42 | XMS_ITS | Encounter Summary ---
Author Organization [facility] [place] [address] Care Team Providers Care Manufacturing Engineering Professor Name Role Phone Carlos Alberto Ag MD Primary Care Provider Encounter Details Date Type Department Care Team (Latest Contact Info) Description 06/03/2017 9:25 AM EST Laboratory Appointment Lab [address] [facility] [place] [id number] Hypertension, unspecified type; Type 2 diabetes mellitus [...] current use of insulin BASIC METABOLIC PANEL Routine 06/03/2017 9:44 AM EST Hypertension, unspecified type U ALBUMIN/CRE RATIO Routine 06/03/2017 9 :41 AM EST Type 2 diabetes mellitus without complication, without long-term current use of insulin documented in this encounter Results * (ABNORMAL) Hemoglobin A1c (06/03/2017 9:44 AM EST) Hemoglobin A1c 7.2(H) 4.3 - 5.6 % [facility] [...] Mellitus, Diabetes Care 2013; 36: Suppl. 1, S67-17 Estimated Average Glucose 160 mg/dL [facility] Comment: [...] are available on the ADA website. Jose DM, Kate J, Alexis R, et al. ??Translating the A1C assay into estimated average glucose values. ??Diabetes Care 2008:31(8):9062-3843. Blood specimen (specimen) 06/03/2017 9:44 AM EST 06/03/2017 9:51 AM EST Narrative Resulting Agency Comment Spec In Lab Jacqueline Cleveland MD CHEMISTRY ORDERABLES Performing Organization Address [facility]/ZIP Co de Phone Number [facility] [place] [address] * (ABNORMAL) Basic Metabolic Panel (non-fasting) (06/03/2017 9:44 AM EST) Glucose 177 65 - 199 mg/dL [facility] Comment:Diabetes: >=200 mg/d L plus symptoms Blood Urea Nitrogen 16 8 - 18 mg/dL [facility] [...] - 107 mmol/L [facility] Carbon Dioxide 27 22 - 31 mmol/L [facility] Anion Gap 14 5 - 15 mmol/L [facility] Calcium 9.0 8.5 - 10.5 mg/dL [facility] Est Glomerular Filtration Rate >60 >=60 [facility] Comment: The reported eGFR should be multiplied by 1.2 for patients. The MDRD is not an appropriate measure of renal function for patients with body mass extremes or in patients with acute kidney failure. http://G2 Crowd.MetaIntell/DHnkdep http://G2 Crowd.MetaIntell/DHMCnkf Blood specimen (specimen) 06/03/2017 9:44 AM EST 06/03/2017 9:51 AM EST Narrative Resulting Agency Comment Spec In Lab Jacqueline Cleveland MD CHEMISTRY ORDERABLES Performing Organization Address [facility]/ZIP Co de Phone Number [facility] [place] [address] * U Albumin/Cre Ratio (06/03/2017 9:41 AM [...] 2, 357? 362 Albumin, Urine <3.0 mg/L [facility] Creatinine, Urine 120 mg/dL [facility] Urine specimen (specimen) 06/03/2017 9:41 AM EST 06/03/2017 9:51 AM EST Narrative Resulting Agency Comment Spec In Lab Jacqueline Cleveland MD URINE ORDERABLES [facility] [place] [address] documented in this encounter Visit Diagnoses Diagnosis Hypertension, unspecified type Type 2 diabetes mellitus without complication, without long-term current use of insulin documented in this encounter Care Teams Manufacturing Engineering Professor Relationship Specialty Start Date End Date Carlos Alberto Ag MD [facility] [place] [address] PCP - General General Internal Medicine 04/26/17 10/31/19 documented as of this encounter
--- OUTSIDE RECORDS SUMMARY | 2024-02-04 00:42 | XMS_ITS | Encounter Summary ---
Author Organization [facility] Address [facility] [place] [address] Care Team Providers Care Kindergarten Instructional Assistant Name Role Phone Carlos Alberto Ag MD Primary Care Provider Encounter Details Date Type Department Care Team (Latest Contact Info) Description 08/19/2017 2:44 PM EDT - 08/19/2017 11:59 PM EDT Hospital Encounter XRay at [address] [place] [address] Malgorzata Pappas, WATER PROJECT ENGINEER [facility] [place] [address] Pain in right hip Discharge Disposition: Home [...] thigh documented in this encounter Care Teams Kindergarten Instructional Assistant Relationship Specialty Start Date End Date Carlos Alberto Ag MD [facility] [place] [address] PCP - General General Internal Medicine 04/26/17 10/31/19 documented as of this encounter
--- OUTSIDE RECORDS SUMMARY | 2024-02-04 00:42 | XMS_ITS | Encounter Summary ---
Author Organization [facility] [place] [address] Care Team Providers Care Tire Center Supervisor Name Role Phone Carlos Alberto Ag MD Primary Care Provider Reason for Visit * Reason Onset Date Comments Medication Refill 05/13/2019 Encounter Details Date Type Department Care Team (Late st Contact Info) Description 05/13/2019 [place] [address] Carlos Alberto Ag MD [facility] [place] [address] Gastroesophageal reflux disease, esophagitis presence not specified [...] specified documented in this encounter Care Teams Tire Center Supervisor Relationship Specialty Start Date End Date Carlos Alberto Ag MD [facility] [place] [address] PCP - General General Internal Medicine 04/26/17 10/31/19 documented as of this encounter
--- OUTSIDE RECORDS SUMMARY | 2024-02-04 00:42 | XMS_ITS | Encounter Summary ---
Author Organization [facility] [place] [address] Care Team Providers Care Glazier Stained Glass Name Role Phone Pita Narayanan MD Primary Care Provider Reason for Visit * Reason Comments Follow-up Pt states she has be en having issues in regards to her anti-depressant medication in the last few weeks. Encounter Details Date Type Department Care Team (Latest Contact Info) Description 01/29/2017 1:30 PM EDT Office Visit Internal Medicine at [address] [address] [place] [address] Depression, unspecified depression type; Anxiety; Uncontrolled type [...] #depo issue Switched from [facility] to [facility] Having trouble with this. Can't get the 104 mg dose any more at [facility]. Has to use the 150 mg dose. [...] (!) 109 kg (240 lb 6.4 oz) [id number]% BMI 40.25 kg/m2 Alert, looks usual self, [...] from a script from 03/04 from her [place] PCP. Just for 30 pills It is [...] type documented in this encounter Care Teams Glazier Stained Glass Relationship Specialty Start Date End Date Pita Narayanan MD [facility] [address] [place] [address] PCP - General General Internal Medicine 01/28/1604/22 documented as of this encounter
--- OUTSIDE RECORDS SUMMARY | 2024-02-04 00:42 | XMS_ITS | Encounter Summary ---
Author Organization [facility] Address [facility] [place] [address] Care Team Providers Care Loader Demolder Name Role Phone Carlos Alberto Ag MD Primary Care Provider Reason for Referral * Consultation (Routine) - Closed Specialty Diagnoses / Procedures Referred By Contac t Referred To Contact Sleep Center Diagnoses Obstructive sleep apnea Carlos Alberto Ag MD [facility] [place] [address] [facility] Sleep Medicine [address] [place] [address] Referral ID Status Reason Start Date Expiration Date V isits Requested Visits Authorized [id number] Closed Specialty Service Requested 05/13/2017 05/13/2018 1 1 * Physical Therapy (Routine) - Closed Specialty Diagnoses / Procedures Referred By Contac t Referred To Contact Physical Therapy Diagnoses Chronic right hip pain Carlos Alberto Ag MD [facility] [address] [place] [address] [facility] Rehab Pt [address] [place] [address] Referral ID Status Reason Start Date Expiration Date V isits Requested Visits Authorized [id number] Closed Evaluate and Treat 05/13/2017 05/13/2018 1 1 Reason for Visit * Reason Comments Establish Care Encounter Details Date Type Department Care Team (Late st Contact Info) Description 05/13/2017 3:30 PM EST Office Visit Internal Medicine at [facility] [place] [address] Carlos Alberto Ag MD [facility] [place] [address] Type 2 diabetes mellitus without complication, without [...] foods, chocolate or tobacco. Patient lives in [place], [place] with her 2 daughters. Her mother stays overnight when the patient is working. She works at [employer] in [place], [place]. 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 1, S67-74 Estimated Average Glucose 160 mg/dL [facility] Comment: eAG equivalents for [...] into estimated average glucose values. ??Diabetes Care 2008:31(8):5231-7784. Blood specimen (specimen) 06/03/2017 9:44 AM EST 06/03/2017 9:51 AM EST Narrative Resulting Agency Comment Spec In Lab Jacqueline Cleveland MD CHEMISTRY ORDERABLES [facility] [place] [address] * (ABNORMAL) Basic Metabolic Panel (non-fasting) (06/03/2017 9:44 AM EST) Glucose 177 65 - 199 mg/dL [facility] Comment:Diabetes: >=200 mg/d L plus symptoms Blood Urea Nitrogen 16 8 - 18 mg/dL [facility] Creatinine 0.68(L) 0.70 - 1.20 mg/dL [facility] Sodium 140 135 - 145 mmol/L [facility] [...] - 107 mmol/L [facility] Carbon Dioxide 27 22 - 31 mmol/L [facility] Anion Gap 14 5 - 15 mmol/L [facility] Calcium 9.0 8.5 - 10.5 mg/dL [facility] Est Glomerular Filtration Rate >60 >=60 [facility] Comment: The reported eGFR should be multiplied by 1.2 for patients. The MDRD is not an appropriate measure of renal function for patients with body mass extremes or in patients with acute kidney failure. http://ZOOM Technologies/DHnkdep http://ZOOM Technologies/DHMCnkf Blood specimen (specimen) 06/03/2017 9:44 AM EST 06/03/2017 9:51 AM EST Narrative Resulting Agency Comment Spec In Lab Jacqueline Cleveland MD CHEMISTRY ORDERABLES [facility] [place] [id number] * U Albumin/Cre Ratio (06/03/2017 9:41 AM [...] 2, 357? 362 Albumin, Urine <3.0 mg/L [facility] Creatinine, Urine 120 mg/dL [facility] Urine specimen (specimen) 06/03/2017 9:41 AM EST 06/03/2017 9:51 AM EST Narrative Resulting Agency Comment Spec In Lab Jacqueline Cleveland MD URINE ORDERABLES [facility] [place] [address] documented in this encounter Visit Diagnoses Diagnosis Type 2 diabetes mellitus without complication, without long-term current use of insulin- Primary Hypertension, unspecified type Chronic right hip pain Pain in joint, pelvic region and thigh Obstructive sleep apnea Obstructive sleep apnea (adult) (pediatric) Gastroesophageal reflux disease, esophagitis presence not specified Depression, unspecified depression type documented in this encounter Care Teams Loader Demolder Relationship Specialty Start Date End Date Carlos Alberto Ag MD [facility] [place] [address] PCP - General General Internal Medicine 04/26/17 10/31/19 documented as of this encounter
--- OUTSIDE RECORDS SUMMARY | 2024-02-04 00:42 | XMS_ITS | Encounter Summary ---
Author Organization [facility] [place] [address] Care Team Providers Care Construction Producer Name Role Phone Carlos Alberto Ag MD Primary Care Provider Reason for Visit * Reason Comments Medication Refill Encounter Details Date Type Department Care Team (Late st Contact Info) Description 06/22/2018 Ref[place] [address] Malgorzata Pappas, BLUE LEATHER SETTER [facility] [place] [address] Gastroesophageal reflux disease, esophagitis presence not specified; [...] hypertension documented in this encounter Care Teams Construction Producer Relationship Specialty Start Date End Date Carlos Alberto Ag MD [facility] [place] [address] PCP - General General Internal Medicine 04/26/17 10/31/19 documented as of this encounter
--- OUTSIDE RECORDS SUMMARY | 2024-02-04 00:42 | XMS_ITS | Encounter Summary ---
Author Organization Formerly [facility] [place] [address] Care Team Providers Care Deicer Element Winder Machine Name Role Phone Pita Narayanan MD Primary Care Provider [phone] Reason for Visit * Reason Comments Gynecologic Exam Encounter Details Date Type Department Care Team ([facility] Contact Info) Description 03/05/2017 9:00 AM EST Office Visit Internal Medicine at [facility] [address] [place] [address] Rosalva Cardenas, LEESA [facility] [place] [address] Encounter for screening for cervical cancer Social [...] HPI Sarah is here today for a SHELTER SUPERVISOR exam/pap only She saw her PCP, [...] REMOVE Please contact the Blood Bank at [phone] for questions. Outpatient Prescriptions Marked as Taking [...] Comments HPV Routine 03/05/2017 9:28 AM EST SHELTER SUPERVISOR CYTOLOGY INTERPRETATION Routine 03/05/2017 9:28 AM EST SHELTER SUPERVISOR CYTOLOGY FINAL REPORT Routine 03/05/2017 9:28 AM EST CYTOPATHOLOGY GYNECOLOGICAL Routine 03/05/2017 9:28 AM EST Encounter for screening for cervical cancer documented in this encounter Results * Winder Fixer Cytology Final Report (03/05/2017 9:28 AM EST) Winder Fixer Cytology Final Report [id number] ? Location: [facility] The signing pathologist has (i) examined the relevant preparation(s) for the specimen(s) and (ii) rendered or confirmed the diagnosis(es). . ? Winder Fixer Final DIAGNOSIS Normal Negative for Intraepithelial Lesion or Malignancy (NILM). For consensus guidelines for the management of cervical cancer screening test results, please see: ?? http://www.asccp.o rg . Electronically signed by: ??Supriya REYNOSO(ASCP)Coleen Verified: ??03/17/2017 ?Therapist Rrt Performed at: ??-[facility] [place], [place], [place] HPV RESULTS HPV16 (Result) ?Negative HPV18 [...] intended to detect low risk HPV types. [employer] kira HPV test Specimen: HPV Testing - Cytology Liquid Based Prep The Antonia kira ? HPV test was validated, performed and results reported through the Laboratory for Clinical Genomics and Advanced Technology (CGAT) at [facility]. ? - Marvin Lorenzana, PhD, [facility], Director-[facility] STATEMENT OF ADEQUACY Specimen submitted is satisfactory. Endocervical component present. CLINICAL INFORMATION HPV Option: ?Concurrent HPV and Pap Preparation: ? Liquid based Pap Specimen Source: ? Cervical/Endocervi loni LMP: ? n/a Hormones?: ? Yes Hysterectomy?: ? No ?: ? No ?: ? No I.U.D.?: ? No Pelvic Radiation: ?No Prior SHELTER SUPERVISOR Therapy?: ?No Hist Abnl Pap/Biopsy?: ?? No Hist of HPV Vaccine?: ?No Hist of Smoking?: ?No Hist of NIKHIL exposure?: ?? No ICD Diagnosis: ? Z12.4 Encounter for screening for malignant neoplasm of cervix Clinical Data, Significant Therapy and Clinical Impression ?? : . CLINICAL INFORMATION ?_ This Pap Test has been evaluated with the assistance of the PiPsportsPrep Pap Test Imaging System. Note: The Pap test is a screening test for cervical cancer with an inherent false-negative rate dependent upon several variables. ??For further information please contact the [facility] Laboratory. Reference: ??Amanda CS. ??Lotus Notes Administrator of Pap Smear Results. ??In: ??Barbara BS, [facility], ed. ??The Pap Smear. ??[place]: ??[place]endo[place], 2002: ??71-77. [facility] 03/05/2017 9:28 AM EST Rosalva L Beaupre TRAUMA MANAGER PATHOLOGY/CYTOLOGY O RDERABLES Performing Organization Address [facility] de Phone Number [facility] [place] [address] * SHELTER SUPERVISOR Cytology Interpretation (03/05/2017 9:28 AM EST) Winder Fixer Cytology Interpretation [facility] Comment:Winder Fixer Cytology Final R eport Endocervical Component Present [facility] AP Specimen 03/05/2017 9:28 AM EST 03/17/2017 6:12 PM EST Rosalva L Beaupre TRAUMA MANAGER PATHOLOGY/CYTOLOGY O RDERABLES Performing Organization Address [facility] de Phone Number [facility] [place] [address] * HPV (03/05/2017 9:28 AM EST) HPV16 NEGATIVE NEGAT[address] [facility] HPV [address] [facility] HPV Other HR NEGATIVE NEGATIVE [facility] HPV Interpretation See Comment [facility] Comment: NEGATIVE for high-risk HPV [...] Comment Spec In Lab Rosalva L Beaupre TRAUMA MANAGER PATHOLOGY/CYTOLOGY O RDERABLES Performing Organization Address [facility] de Phone Number [facility] [place] [address] * Cytopathology Gynecological (03/05/2017 9:28 AM EST) AP Specimen 03/05/2017 9:28 AM EST 03/05/2017 1:[address] [facility] - 03/05/2017 1:28 PM EST Specimen requisition ordered. ??Separate Pathology report to follow Resulting Agency Comment Spec In Lab Rosalva L Beaupre TRAUMA MANAGER PATHOLOGY/CYTOLOGY O RDERABLES Performing Organization Address City/[facility] de Phone Number [facility] [place] [address] documented in this encounter Visit Diagnoses Diagnosis Encounter for screening for cervical cancer documented in this encounter Care Teams Deicer Element Winder Machine Relationship Specialty Start Date End Date Pita Narayanan MD [facility] [address] [place] [address] PCP - General General Internal Medicine 01/28/1604/22 documented as of this encounter
--- OUTSIDE RECORDS SUMMARY | 2024-02-04 00:42 | XMS_ITS | Encounter Summary ---
Author Organization [facility] [place] [address] Care Team Providers Care Automotive Starter Repairer Name Role Phone Carlos Alberto Ag MD Primary Care Provider Reason for Visit * Reason Comments Follow-up Encounter Details Date Type Department Care Team ([facility] st Contact Info) Description 08/19/2017 2:00 PM EDT Office [place] [id number] Malgorzata Pappas, LEESA [facility] GENER[facility] [place] [address] Type 2 diabetes mellitus without complication, without [...] Patient Instructions * Patient Instructions* Malgorzata Pappas, LUMBER HACKER - 08/19/2017 2:37 PM EDT Images from the original note were not included. Epidermoid Cyst: Care Instructions Your Care Instructions An epidermoid (say va-rrz-KQS-cornellyd) cyst is a lump just under the [...] more? Visit our health information library at [email or web address]. You can also view health information on [employer], your personal patient account. Log in or sign uptoday. Enter S615 in the search box to learn more about Epidermoid Cyst: Care Instructions. Current as of: January 30, 2016 Content Version: 11.4 ?? [id number] [employer]. Care instructions adapted under license by [facility]. If you have questions about a medical condition or this instruction, always ask your healthcare professional. [employer] disclaims any warranty or liability for your [...] more? Visit our health information library at [email or web address]. You can also view health information on [employer], your personal patient account. Log in or sign uptoday. Enter S615 in the search box to learn more about Epidermoid Cyst: Care Instructions. Current as of: January 30, 2016 Content Version: 11.4 ?? [id number] [employer]. Care instructions adapted under license by [facility]. If you have questions about a medical condition or this instruction, always ask your healthcare professional. 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 Works at [employer] on the [employer] line. Small lesion on mid back for [...] use of insulin BASIC METABOLIC PANEL Routine 08/19/2017 3:27 PM EDT Type 2 diabetes mellitus without complication, without long-term current use of insulin documented in this encounter Results * (ABNORMAL) Hemoglobin A1c (08/19/2017 3:27 PM EDT) Hemoglobin A1c 6.9(H) 4.3 - 5.6 % [facility] [...] Mellitus, Diabetes Care 2013; 36: Suppl. 1, E89-50 Estimated Average Glucose 151 mg/dL [facility] Comment: eAG equivalents for [...] into estimated average glucose values. ??Diabetes Care 2008:31(8):6205-3078. Blood specimen (specimen) 08/19/2017 3:27 PM EDT 08/19/2017 3:34 PM EDT Narrative Resulting Agency Comment Spec In Lab Malgorzata Pappas APRN CHEMISTRY ORDERABLES [facility] [place] [address] * (ABNORMAL) Basic Metabolic Panel (non-fasting) (08/19/2017 3:27 PM EDT) Glucose 234(H) 65 - 199 mg/dL [facility] Comment:Diabetes: >=200 mg/d L plus symptoms Blood Urea Nitrogen 14 8 - 18 mg/dL [facility] [...] mmol/L [facility] Carbon Dioxide 26 22 - 31 mmol/L [facility] Anion Gap 14 5 - 15 mmol/L [facility] Calcium 9.0 8.5 - 10.5 mg/dL [facility] Est Glomerular Filtration Rate >60 >=60 [facility] Comment: The reported eGFR should be multiplied by 1.2 for patients. The MDRD is not an appropriate measure of renal function for patients with body mass extremes or in patients with acute kidney failure. http://PopJax/DHnkdep http://PopJax/DHMCnkf Blood specimen (specimen) 08/19/2017 3:27 PM EDT 08/19/2017 3:34 PM EDT Narrative Resulting Agency Comment Spec In Lab Malgorzata Pappas APRN CHEMISTRY ORDERABLES Performing Organization Address City/State/[facility] Co de Phone Number [facility] [place] [address] * XR Pelvis w AP & Lat [...] thigh documented in this encounter Care Teams Automotive Starter Repairer Relationship Specialty Start Date End Date Carlos Alberto Ag MD [facility] GENER[facility] [place] [address] PCP - General General Internal Medicine 04/26/17 10/31/19 documented as of this encounter
--- OUTSIDE RECORDS SUMMARY | 2024-02-04 00:42 | XMS_ITS | Encounter Summary ---
Author Organization Formerly [facility] [place] [address] Care Team Providers Care Dance Instructor Name Role Phone Carlos Alberto Ag MD Primary Care Provider Reason for Referral * Consultation (Urgent) - Closed Specialty Diagnoses / Procedures Referred By Contac t Referred To Contact Internal Medicine Diagnoses Severe episode of recurrent major depressive disorder, without psychotic features Carlos Alberto Ag MD [facility] GENER[place] [address] [address] Referral ID Status Reason Start Date Expiration Date V isits Requested Visits Authorized [id number] Closed Specialty Service Requested 08/21/2019 08/20/2020 1 1 Reason for Visit * Reason Comments Medication Check refills needed. No o ther concerns at this time. Encounter Details Date Type Department Care Team (Late st Contact Info) Description 08/21/2019 1:30 PM EDT TH Visit (TeleHealth) [place] [address] Carlos Alberto Ag MD [facility] [place] [address] Gastroesophageal reflux disease, esophagitis presence [...] Hospital(document location including state) Contact information [address] [facility] [address] (M) [phone] (H) Call start time: 2:02 pm Reason [...] daily. Please call to schedule an appt: [phone] Yes venlafaxine (EFFEXOR-XR) 150 mg Capsule, Sust. [...] phone speaks with every day. Works for [employer]. Thinking that world would be better off [...] for watching her children.Will reach out to [facility] to check in this [...] stop -Reach out to Carmen Vaca and [facility] #HTN -Refill lisinopril 10 mg QD #Seasonal allergies -Refill claritin prn Carlos Alberto Ag MD Total time spent associated with the visit including patient discussion and pre/post visit chart activities: 45 minutes Telephone/Telehealth visit codes: Established Patient New Patient 75162 (10 minute visit) 95733 (10 minute visit) 89228 (15 minute visit) 81872 (20 minute visit) 78456 (25 minute visit) 52957 (30 minute visit) 58339 (40 minute visit) 56314 (45 minute visit) 43340 (60 minute visit) * Jacqueline Cleveland MD - 08/21/2019 1:30 PM EDT I was physically present in the clinic and discussed the case with the resident [id number] at thetime of the visit or immediately [...] she would welcome a reach out from [facility] Plan cont effexor taper and start prozac [...] unspecified documented in this encounter Care Teams Dance Instructor Relationship Specialty Start Date End Date Carlos Alberto Ag MD [facility] [place] [address] PCP - General General Internal Medicine 04/26/17 10/31/19 documented as of this encounter
--- OUTSIDE RECORDS SUMMARY | 2024-02-04 00:42 | XMS_ITS | Encounter Summary ---
Author Organization [facility] Address [facility] [place] [address] Care Team Providers Care Visual C Developer Name Role Phone Carlos Alberto Ag MD Primary Care Provider Reason for Visit * Reason Comments Cough +1 week plus of coug jacob, chest hurts because of coughing so much, phleghm mainly dark green Encounter Details Date Type Department Care Team (Late st Contact Info) Description 09/15/2017 9:00 AM EDT Office Visit [place] [address] Adan Markham MD [facility] [place] [address] Viral URI with cough Social History Tobacco [...] discussed symptomatic management of her hersymptoms including csvb-bho-pfgdgae cough suppressant, saline nasal spray, oibg-czv-ipecqlr analgesics, and continuing adequate hydration. She was advised to return to the clinic if her symptoms do not improve or become worse. Viral URI - Symptomatic management as above - Return precautions discussed F/U with PCP Adan Markham MD ([place]) Internal Medicine, PGY2 Pager #[phone] * Antonio Hernandez MD - 09/15/2017 9:00 [...] site documented in this encounter Care Teams Visual C Developer Relationship Specialty Start Date End Date Carlos Alberto Ag MD [facility] [place] [address] PCP - General General Internal Medicine 04/26/17 10/31/19 documented as of this encounter
--- OUTSIDE RECORDS SUMMARY | 2024-02-04 00:42 | XMS_ITS | Encounter Summary ---
Author Organization Formerly [facility] [place] [address] Care Team Providers Care Commodities Broker Name Role Phone Carlos Alberto Ag MD Primary Care Provider Reason for Visit * Reason Comments Medication Refill Encounter Details Date Type Department Care Team (Late st Contact Info) Description 02/27/2018 Ref[place] [address] Malgorzata Pappas, WET CHEMISTRY ANALYST [facility] [place] [address] Depression, unspecified depression type Social History Tobacco [...] type documented in this encounter Care Teams Commodities Broker Relationship Specialty Start Date End Date Carlos Alberto Ag MD [facility] [address] [place] [address] PCP - General General Internal Medicine 04/26/17 10/31/19 documented as of this encounter
--- OUTSIDE RECORDS SUMMARY | 2024-02-04 00:42 | XMS_ITS | Encounter Summary ---
Author Organization [facility] [place] [address] Care Team Providers Care Reactor Operator Name Role Phone Enoch Medina MD Primary Care Provider [phone] Reason for Visit * Reason Comments Medication Refill Encounter Details Date Type Department Care Team ([facility] st Contact Info) Description 12/22/2016 Refill Internal Medicine at [facility] [address] [place] [address] Pita Narayanan MD [facility] [place] [address] Essential hypertension Social History Tobacco Use Types [...] hypertension documented in this encounter Care Teams Reactor Operator Relationship Specialty Start Date End Date Enoch Medina MD [facility] [place] [address] PCP - General Family Medicine 08/22/20 06/03/21 documented as of this encounter
--- OUTSIDE RECORDS SUMMARY | 2024-02-04 00:42 | XMS_ITS | Encounter Summary ---
Author Organization [facility] Address [facility] [place] [address] Care Team Providers Care Taxi Driver Name Role Phone Carlos Alberto Ag MD Primary Care Provider Reason for Visit * Reason Onset Date Comments Medication Refill 06/24/2017 Depo-subq Prov era 104 syringe Encounter Details Date Type Department Care Team (Late st Contact Info) Description 06/24/2017 Refill Internal Medicine at [facility] [address] [place] [address] Jenelle Lloyd, GROUND CREW SUPERVISOR Menstrual disorder Social History Tobacco Use Types [...] tract documented in this encounter Care Teams Taxi Driver Relationship Specialty Start Date End Date Carlos Alberto Ag MD [facility] [place] [address] PCP - General General Internal Medicine 04/26/17 10/31/19 documented as of this encounter
--- OUTSIDE RECORDS SUMMARY | 2024-02-04 00:42 | XMS_ITS | Encounter Summary ---
Author Organization [facility] [place] [address] Care Team Providers Care Agricultural Pilot Name Role Phone Carlos Alberto Ag MD Primary Care Provider Reason for Visit * Reason Comments Medication Refill Encounter Details Date Type Department Care Team (Late st Contact Info) Description 02/20/2019 [place] [address] Carlos Alberto Ag MD [facility] [address] [address] Gastroesophageal reflux disease, esophagitis presence not specified [...] specified documented in this encounter Care Teams Agricultural Pilot Relationship Specialty Start Date End Date Carlos Alberto Ag MD [facility] [address] [address] PCP - General General Internal Medicine 04/26/17 10/31/19 documented as of this encounter
--- OUTSIDE RECORDS SUMMARY | 2024-02-04 00:42 | XMS_ITS | Encounter Summary ---
Author Organization [facility] [place] [address] Care Team Providers Care Agricultural Extension Agent Name Role Phone Carlos Alberto Ag MD Primary Care Provider Reason for Visit * Reason Comments Medication Refill Encounter Details Date Type Department Care Team ([facility] st Contact Info) Description 10/14/2017 3:00 PM EDT Office [place] [phone] Malgorzata Pappas APRN [facility] [place] [address] Depression, unspecified depression type; Anxiety; Fatigue due [...] Patient Instructions * Patient Instructions* Malgorzata Pappas, DISTRIBUTION FIELD ENGINEER - 10/14/2017 3:24 PM EDT Images from [...] movie or concert. Take part in a worship activity or other social gathering. Go to [...] the numbers for these national suicide hotlines: 8-049-945-TALK ( ) and 6-989-VOFUTGJ ( ). If you or someone you [...] Where can you learn more? Visit our Spacious information library at [email or web address] [email or web address]. You can also view health information on MUV Interactive, your personal patient account. Log in or sign uptoday. Enter N529 in the search box to learn more about Recovering From Depression: Care Instructions. Current as of: March 25, 2017 Content Version: 11.7 ?? [id number] Jump or Fall. Care instructions adapted under license by [facility]. If you have questions about a medical condition or this instruction, always ask your healthcare professional. Jump or Fall disclaims any warranty or liability for your [...] low dose and she will communicate via [facility] on how she is doing, reviewed [...] Fatigue due to depression BASIC METABOLIC PANEL Routine 10/14/2017 3:46 PM EDT Fatigue due to depression documented in this encounter Results * (ABNORMAL) Differential, Automated (10/14/2017 3:46 PM EDT) Neutrophil % 46.2 % [facility] Neutrophil Absolute 3.98 1.70 - 6.10 x10(3)/mc L [facility] Lymph % 44.4 % [facility] Lymphocytes Abs 3.8(H) 0.9 - 3.2 x10(3)/mc L [facility] Monocyte % 5.7 % [facility] Monocyte Abs 0.5 0.3 - 0.9 x10(3)/mc L [facility] Eos % 2.9 % [facility] Eosinophils Abs 0.2 0.0 - 0.4 x10(3)/mc L [facility] Basophil % 0.5 % [facility] Baso Absolute 0.0 0.0 - 0.1 x10(3)/mc L [facility] Immature Gran % 0.30 % [facility] Comment: Immature granulocytes(IG's)percentage and absolute count will include metamyelocytes, myelocytes, and promyelocytes. Blood smears from CBCs yielding IG's will be scanned manually for concordance. If this scan disagrees with the automated IG or if promyelocytes are noted, a manual differential will be performed. Immature Gran Absolute 0.03 0.00 - 0.04 x10(3)/mc L [facility] Blood specimen (specimen) 10/14/2017 3:46 PM EDT 10/14/2017 3:52 PM EDT Narrative Resulting Agency Comment Spec In Lab Malgorzata Pappas DISTRIBUTION FIELD ENGINEER HEMATOLOGY ORDERABLE S [facility] [place] [address] * (ABNORMAL) Hemogram (10/14/2017 3:46 PM EDT) White Blood Cell 8.6 4.0 - 9.5 x10(3)/mc L [facility] Red Blood Cell 4.34 4.00 - 5.21 x10(6)/mc L [facility] Hemoglobin 13.6 11.7 - 15.5 gm/dL [facility] Hematocrit 38.4 35.7 - 45.8 % [facility] Mean Cell Volume 88.5 82.6 - 94.4 fL [facility] Mean Cell Hemoglobin 31.3 27.1 - 32.0 pg [facility] Mean Cell Hemoglobin Concentration 35.4(H) 31.7 - 35.0 gm/dL [facility] Platelet 236 145 - 357 x10(3)/mc L [facility] RDW Standard Deviation 38.6 37.0 - 46.0 fL [facility] RDW coefficient of variation 11.9 11.5 - 14.1 % [facility] Mean Platelet Volume 9.1 7.6 - 12.9 fL [facility] NRBC% auto 0.0 % [facility] NRBC Absolute 0.000 0.000 - 0.000 x10(3)/mc L [facility] Blood specimen (specimen) 10/14/2017 3:46 PM EDT 10/14/2017 3:52 PM EDT Narrative Resulting Agency Comment Spec In Lab Malgorzata Pappas DISTRIBUTION FIELD ENGINEER HEMATOLOGY ORDERABLE S [facility] [place] [address] * TSH (10/14/2017 3:46 PM EDT) Thyroid Stimulating Hormone 3.28 0.27 - 4.20 mlU/ML [facility] Blood specimen (specimen) 10/14/2017 3:46 PM EDT 10/14/2017 3:52 PM EDT Narrative Resulting Agency Comment Spec In Lab Malgorzata Khanna Elyse LANDERS CHEMISTRY ORDERABLES Performing Organization Address [facility]/ZIP Co de Phone Number [facility] [place] [address] * (ABNORMAL) Basic Metabolic Panel (non-fasting) (10/14/2017 3:46 PM EDT) Glucose 243(H) 65 - 199 mg/dL [facility] Comment:Diabetes: >=200 mg/d L plus symptoms Blood Urea Nitrogen 16 8 - 18 mg/dL [facility] Creatinine 0.63(L) 0.70 - 1.20 mg/dL [facility] Sodium 139 135 - 145 mmol/L [facility] [...] - 107 mmol/L [facility] Carbon Dioxide 25 22 - 31 mmol/L [facility] Anion Gap 15 5 - 15 mmol/L [facility] Calcium 9.2 8.5 - 10.5 mg/dL [facility] Est Glomerular Filtration Rate 113 >=60 mL/min/1. 73 m?? [facility] Comment: The eGFR was calculated using the CKD-EPI equation. As with all creatinine based estimates of kidney function, eGFR values calculated with the CKD-EPI equation are not accurate in patients with acute kidney failure, extremes of body mass or the acutely ill. [email or web address] [email or web address] eGFR 131 >=60 mL/min/1. 73 m?? [facility] Comment: The eGFR was calculated using the CKD-EPI equation. As with all creatinine based estimates of kidney function, eGFR values calculated with the CKD-EPI equation are not accurate in patients with acute kidney failure, extremes of body mass or the acutely ill. [email or web address] [email or web address]/[email or web address] Blood specimen (specimen) 10/14/2017 3:46 PM EDT 10/14/2017 3:52 PM EDT Narrative Resulting Agency Comment Spec In Lab Malgorzata Pappas APRN CHEMISTRY ORDERABLES Performing Organization Address City/State/[facility] Co de Phone Number [facility] [place] [address] documented in this encounter Visit Diagnoses Diagnosis Depression, unspecified depression type Anxiety Anxiety state, unspecified Fatigue due to depression documented in this encounter Care Teams Agricultural Extension Agent Relationship Specialty Start Date End Date Carlos Alberto Ag MD [facility] [place] [address] PCP - General General Internal Medicine 04/26/17 10/31/19 documented as of this encounter
--- OUTSIDE RECORDS SUMMARY | 2024-02-04 00:42 | XMS_ITS | Encounter Summary ---
Author Organization [facility] Address [facility] [place] [address] Care Team Providers Care Auto Cleaner Name Role Phone Carlos Alberto Ag MD Primary Care Provider Reason for Visit * Reason Comments Medication Refill Encounter Details Date Type Department Care Team (Late st Contact Info) Description 05/06/2018 Refill Internal Medicine at [facility] [address] [place] [address] Carlos Alberto Ag MD [facility] [place] [address] Depression, unspecified depression type; Anxiety Social History [...] unspecified documented in this encounter Care Teams Auto Cleaner Relationship Specialty Start Date End Date Carlos Alberto Ag MD [facility] [place] [address] PCP - General General Internal Medicine 04/26/17 10/31/19 documented as of this encounter
--- OUTSIDE RECORDS SUMMARY | 2024-02-04 00:42 | XMS_ITS | Encounter Summary ---
Author Organization [facility] Address [facility] [place] [address] Care Team Providers Care Bosom Presser Name Role Phone Enoch Medina MD Primary Care Provider [phone] Reason for Visit * Reason Onset Date Comments Medication Refill 03/24/2019 Encounter Details Date Type Department Care Team (Late st Contact Info) Description 03/24/2019 [address] [facility] [address] [place] [address] Carlos Alberto Ag MD [facility] [place] [address] Menstrual disorder; Essential hypertension; Uncontrolled type 2 [...] insulin documented in this encounter Care Teams Bosom Presser Relationship Specialty Start Date End Date Enoch Medina MD [facility] [address] [place] [address] PCP - General Family Medicine 08/22/20 06/03/21 documented as of this encounter
--- OUTSIDE RECORDS SUMMARY | 2024-02-04 00:42 | XMS_ITS | Encounter Summary ---
Author Organization [facility] [place] [address] Care Team Providers Care Ore Washer Name Role Phone Enoch Medina MD Primary Care Provider [phone] Reason for Visit * Reason Comments Medication Refill Encounter Details Date Type Department Care Team ([facility] st Contact Info) Description 04/02/2019 [place] [address] Carlos Alberto Ag MD [facility] [place] [address] Menstrual disorder Social History Tobacco Use Types [...] tract documented in this encounter Care Teams Ore Washer Relationship Specialty Start Date End Date Enoch Medina MD [facility] [place] [address] PCP - General Family Medicine 08/22/20 06/03/21 documented as of this encounter
--- OUTSIDE RECORDS SUMMARY | 2024-02-04 00:42 | XMS_ITS | Encounter Summary ---
Author Organization [facility] [place] [address] Care Team Providers Care Telemarketer Supervisor Name Role Phone Carlos Alberto Ag MD Primary Care Provider Reason for Referral * Consultation (Routine) - Closed Specialty Diagnoses / Procedures Referred By Contmak t Referred To Contact Internal Medicine Diagnoses Current moderate episode of major depressive disorder, unspecified whether recurrent Malgorzata Pappas APRN [facility] [place] [address] [address] Referral ID Status Reason Start Date Expiration Date V isits Requested Visits Authorized [id number] Closed Specialty Service Requested 06/24/2018 06/24/2019 1 1 Reason for Visit * Reason Comments Depression Other stomach issues for lulu gillespie, nausea, food doesn't settle well, diarrhea Encounter Details Date Type Department Care Team (Late st Contact Info) Description 06/24/2018 10:00 AM EST Office [place] [address] Malgorzata Pappas APRN [facility] [place] [address] Current moderate episode of major [...] the numbers for these national suicide hotlines: 5-347-191-TALK ( ) and 6-222-OQDQCRN ( ). If you or someone you [...] national suicide hotlines: -TALK ( ) and 3-367-BZTQASM ( ). If you or someone you [...] more? Visit our health information library at [email or web address] Information Technologyo. You can also view health information on 9SLIDES, your personal patient account. Log in or sign uptoday. Enter Z126 in the search box to learn more about Learning About Mood Disorders. Current as of: December 28, 2017 Content Version: 11.9 ?? [id number] Cadee. Care instructions adapted under license by [facility]. If you have questions about a medical condition or this instruction, always ask your healthcare professional. Cadee disclaims any warranty or liability for your [...] recurrent documented in this encounter Care Teams Telemarketer Supervisor Relationship Specialty Start Date End Date Carlos Alberto Ag MD [facility] [place] [address] PCP - General Internal Medicine 04/26/17 10/31/19 documented as of this encounter
--- OUTSIDE RECORDS SUMMARY | 2024-02-04 00:42 | XMS_ITS | Encounter Summary ---
Author Organization [facility] Address [facility] [place] [address] Care Team Providers Care Lasting Machine Operator Name Role Phone Carlos Alberto Ag MD Primary Care Provider Reason for Visit * Reason Comments Medication Refill Encounter Details Date Type Department Care Team ([facility] st Contact Info) Description 04/30/2018 Refill Internal Medicine at [facility] [address] [place] [phone] Carlos Alberto Ag MD [facility] [place] [address] Menstrual disorder Social History Tobacco Use Types [...] Patients PCP is Carlos Alberto Ag MD, [facility]. * Telephone Encounter - Ale Moreau [...] tract documented in this encounter Care Teams Lasting Machine Operator Relationship Specialty Start Date End Date Carlos Alberto Ag MD [facility] [place] [address] PCP - General General Internal Medicine 04/26/17 10/31/19 documented as of this encounter
--- OUTSIDE RECORDS SUMMARY | 2024-02-04 00:42 | XMS_ITS | Encounter Summary ---
Author Organization [facility] [place] [address] Care Team Providers Care Butcher Fish Name Role Phone Carlos Alberto Ag MD Primary Care Provider Encounter Details Date Type Department Care Team (Late st Contact Info) Description 06/03/2017 Telephone [place] [phone] Carlos Alberto Ag MD [facility] [place] [address] Social History Tobacco Use Types Packs/Day Years [...] on filedocumented in this encounter Care Teams Butcher Fish Relationship Specialty Start Date End Date Carlos Alberto Ag MD [facility] [place] [address] PCP - General General Internal Medicine 04/26/17 10/31/19 documented as of this encounter
--- OUTSIDE RECORDS SUMMARY | 2024-02-04 00:42 | XMS_ITS | Encounter Summary ---
Author Organization [facility] [place] [address] Care Team Providers Care Coding Analyst Name Role Phone Carlos Alberto Ag MD Primary Care Provider Encounter Details Date Type Department Care Team (Late st Contact Info) Description 06/23/2018 Telephone [place] [phone] Rosemary Bass Social History Tobacco Use Types [...] on filedocumented in this encounter Care Teams Coding Analyst Relationship Specialty Start Date End Date Carlos Alberto Ag MD [facility] [place] [address] PCP - General General Internal Medicine 04/26/17 10/31/19 documented as of this encounter
--- OUTSIDE RECORDS SUMMARY | 2024-02-04 00:42 | XMS_ITS | Encounter Summary ---
Author Organization [facility] [place] [address] Care Team Providers Care Senior Dot Net Developer Name Role Phone Carlos Alberto Ag MD Primary Care Provider Reason for Visit * Reason Onset Date Comments Other 08/28/2019 Encounter Details Date Type Department Care Team ([facility] st Contact Info) Description 08/28/2019 Telephone [place] [phone] Carmen Vaca [facility] [place] [address] Other Social History Tobacco Use Types Packs/Day [...] Notes * Telephone Encounter - Carmen Vaca [facility] - 08/28/2019 1:30 PM EDT Primary Care [...] bad experiences in therapy stating I can juvenile counselor myself. Patient is currently out of [...] daily. Please call to schedule an appt: [phone] venlafaxine (EFFEXOR-XR) 150 mg Capsule, Sust. Release [...] National Suicide Prevention Lifeline at (TALK) or [facility] Psychiatry 617-507-1486 Carmen Vaca [facility] Behavioral Health Clinician ([facility]) Primary Care & Psychiatry Collaborative Care [address] [phone] Clinic [phone] Pager [phone] documented in this encounter Plan of Treatment Not on file documented as of this encounter Visit Diagnoses Not on filedocumented in this encounter Care Teams Senior Dot Net Developer Relationship Specialty Start Date End Date Carlos Alberto Ag MD [facility] [place] [address] PCP - General General Internal Medicine 04/26/17 10/31/19 documented as of this encounter
--- OUTSIDE RECORDS SUMMARY | 2024-02-04 00:42 | XMS_ITS | Encounter Summary ---
Author Organization [facility] Address [facility] [place] [address] Care Team Providers Care Mortgage Or Loan Underwriter Name Role Phone Rosemary Howe MD Primary Care Provider [phone] Encounter Details Date Type Department Care Team (Late st Contact Info) Description 09/01/2019 Telephone [place] [phone] Nela Haines Social History Tobacco Use Types [...] on filedocumented in this encounter Care Teams Mortgage Or Loan Underwriter Relationship Specialty Start Date End Date Rosemary Howe MD [facility] [address] [place] [address] PCP - General General Internal Medicine 11/01/1908/21 documented as of this encounter
--- OUTSIDE RECORDS SUMMARY | 2024-02-04 00:42 | XMS_ITS | Encounter Summary ---
Author Organization [facility] Address [facility] [place] [address] Care Team Providers Care Skin Care Instructor Name Role Phone Carlos Alberto Ag MD Primary Care Provider Encounter Details Date Type Department Care Team (Late st Contact Info) Description 08/22/2019 Telephone Internal Medicine at [facility] [place] [phone] Ofe Craig Social History Tobacco Use Types [...] on filedocumented in this encounter Care Teams Skin Care Instructor Relationship Specialty Start Date End Date Carlos Alberto Ag MD [facility] GENER[place] [address] PCP - General General Internal Medicine 04/26/17 10/31/19 documented as of this encounter
--- OUTSIDE RECORDS SUMMARY | 2024-02-04 00:42 | XMS_ITS | Encounter Summary ---
Author Organization [facility] [place] [address] Care Team Providers Care Foam Fabricator Name Role Phone Carlos Alberto Ag MD Primary Care Provider Reason for Visit * Reason Comments Urinary Tract Infection Encounter Details Date Type Department Care Team ([facility] st Contact Info) Description 12/31/2017 1:40 PM EDT Office [place] [phone] Malgorzata Pappas APRN [facility] [place] [address] Urinary urgency; Dysuria Social History Tobacco Use [...] Patient Instructions * Patient Instructions* Malgorzata Pappas, ALARM OPERATOR - 12/31/2017 2:17 PM EDT Images from [...] Where can you learn more? Visit our Transfer Course Computer System ([place]) information library at [email or web address]. You can also view health information on Retail Rocket, your personal patient account. Log in or sign uptoday. Enter H814 in the search box to learn more about Painful Urination (Dysuria): Care Instructions. Current as of: August 28, 2016 Content Version: 11.7 ?? [id number] Care instructions adapted under license by [facility]. If you have questions about a medical condition or this instruction, always ask your healthcare professional. [address] disclaims any warranty or liability for your [...] tract infection, submit a new specimen. (A) [facility] Urine specimen obtained by clean catch procedure (specimen) 12/31/2017 2:20 PM EDT 12/31/2017 3:07 PM EDT Narrative Resulting Agency Comment Spec In Lab Malgorzata Pappas APRN MICROBIOLOGY - GENER AL ORDERABLES [facility] [place] [address] * (ABNORMAL) Urinalysis Microscopic Exam (12/31/2017 2:20 PM EDT) RBC, Urine 3 0 - 4 /HPF [facility] WBC, Urine 24(H) 0 - 5 /HPF [facility] Bacteria, Urine Occasiona l(A) None /HPF [facility] Squamous Epithelial Cells Raw Data, Urine 24(H) <=4 /HPF [facility] Transitional Epithelial Cells, Urine <1 <=1 /HPF [facility] Renal Epithelial Cells, Urine <1(H) <=0 /HPF [facility] Urine specimen obtained by clean catch procedure (specimen) 12/31/2017 2:20 PM EDT 12/31/2017 2:40 PM EDT Narrative Resulting Agency Comment Spec In Lab Malgorzata Pappas LEESA URINE ORDERABLES [facility] [place] [address] * (ABNORMAL) Urinalysis with reflex Culture (12/31/2017 2:20 PM EDT) Glucose, Urine Dipstick Negative Negative mg/dL [facility] Protein, Urine Dipstick 100(A) Negative mg/dL [facility] Bilirubin, Urine Dipstick Negative Negative mg/dL [facility] Comment: Clinical correlation required for positive Urine Bilirubin results as false positive may occur with some drugs and drug related products. If a false positive is suspected a serum total bilirubin should be considered if clinically indicated. Urobilinogen, Urine Dipstick Normal Normal mg/dL [facility] pH, Urn (dipstick) 5.0 5.0 - 8.0 [facility] Blood, Urine Dipstick Negative Negative mg/dL [facility] Ketone, Urine Dipstick 5(A) Negative mg/dL [facility] Nitrite, Urine Dipstick Negative Negative [facility] Leukocytes, Urine Dipstick Large(A) Negative [facility] Appearance, Urine Dipstick Cloudy(A) Clear [facility] Specific Dickens Urine Automated 1.028 1.002 - 1.030 [facility] Color, Urine Dipstick Azeb Yellow [facility] Reflex to Culture Yes [facility] Urine specimen obtained by clean catch procedure (specimen) 12/31/2017 2:20 PM EDT 12/31/2017 2:40 PM EDT Narrative Resulting Agency Comment Spec In Lab Malgorzata Pappas ALARM OPERATOR URINE ORDERABLES [facility] [place] [address] documented in this encounter Visit Diagnoses Diagnosis Urinary urgency Urgency of urination Dysuria documented in this encounter Care Teams Foam Fabricator Relationship Specialty Start Date End Date Carlos Alberto Ag MD [facility] [place] [address] PCP - General General Internal Medicine 04/26/17 10/31/19 documented as of this encounter
--- OUTSIDE RECORDS SUMMARY | 2024-02-04 00:42 | XMS_ITS | Encounter Summary ---
Author Organization [facility] [place] [address] Care Team Providers Care Nuclear Plant Instrument Technician Name Role Phone Pita Narayanan MD Primary Care Provider [phone] Encounter Details Date Type Department Care Team (Late st Contact Info) Description 09/21/2016 Telephone Internal Medicine at [facility] [address] [place] [address] Faye Jackson RN Social History [...] nurse, no answer. Can be reached at [phone] until 6:30 this evening * Telephone Encounter [...] on filedocumented in this encounter Care Teams Nuclear Plant Instrument Technician Relationship Specialty Start Date End Date Pita Narayanan MD [facility] [address] DOW[address] [facility] [place] [address] PCP - General General Internal Medicine 01/28/1604/22 documented as of this encounter
--- OUTSIDE RECORDS SUMMARY | 2024-02-04 00:42 | XMS_ITS | Encounter Summary ---
Author Organization [facility] [place] [address] Care Team Providers Care Lead Software Developer Name Role Phone Pita Narayanan MD Primary Care Provider [phone] Encounter Details Date Type Department Care Team (Late st Contact Info) Description 08/21/2016 Telephone Family Medicine at [facility] [address] [place] [phone] Girish Mckay Jr., [place] [address] Social History Tobacco Use Types Packs/Day Years [...] on filedocumented in this encounter Care Teams Lead Software Developer Relationship Specialty Start Date End Date [place] [address] PCP - General General Internal Medicine 01/28/1604/22 documented as of this encounter
--- OUTSIDE RECORDS SUMMARY | 2024-02-04 00:42 | XMS_ITS | Encounter Summary ---
[place] [address] Care Team Providers Care Tank Car Cleaner Name Role Phone Carlos Alberto Ag MD Primary Care Provider Reason for Visit * Reason Onset Date Comments Prior Authorization 08/09/2018 Venlafaxine Encounter Details Date Type Department Care Team (Late st Contact Info) Description 08/09/2018 Telephone Internal Medicine at [place] [address] [place] [phone] Padma Miller CMA Prior Authorization (Venlafaxine) Social [...] Authorization for Primary [place] [address] Request received via: Pharmacy Patient: Sarah Ninoska Moncada Patient : 1980 Subscriber Insurance: [place] Medicaid Insurance Phone #: Sent via: [facility] Thomas/Fax#: [id number] Physician: Carlos Alberto Ag MD Medication Requested: venlafaxine (EFFEXOR-XR) 75 mg Capsule, Sust. Release 24 hr Frequency/Sig: TAKE 3 CAPSULES BY MOUTH DAILY Disp.: 180 Refills: 3 Currently taking: yes If yes, how lon04/2016 Diagnosis for this medication: Depression, unspecified depression type (F32.9); Anxiety (F41.9) Prior medications trialed in this patient: Medication: sertraline 25 mg Approx Dates: 0959-0952 Outcome/Adverse Reactions: inadequate response Medication: fluoxetine 10 mg Approx Dates: 2016 Outcome/Adverse Reactions: inadequate response Medication: wellbutrin Approx Dates: 2016 Outcome/Adverse Reactions: inadequate response documented in this encounter Plan of Treatment Not on file documented as of this encounter Visit Diagnoses Not on filedocumented in this encounter Care Teams Tank Car Cleaner Relationship Specialty Start Date End Date Carlos Alberto Ag MD [facility] [place] [address] PCP - General General Internal Medicine 04/26/17 10/31/19 documented as of this encounter
--- OUTSIDE RECORDS SUMMARY | 2024-02-04 00:42 | XMS_ITS | Encounter Summary ---
Author Organization [facility] [place] [address] Care Team Providers Care Test Desk Trouble Locator Name Role Phone Carlos Alberto gA MD Primary Care Provider Reason for Visit * Reason Onset Date Comments Medication Refill 04/03/2019 Encounter Details Date Type Department Care Team (Late st Contact Info) Description 04/03/2019 [place] [address] Gail Reilly LPN Essential hypertension; Uncontrolled type [...] insulin documented in this encounter Care Teams Test Desk Trouble Locator Relationship Specialty Start Date End Date Carlos Alberto Ag MD [facility] GENER[facility] [place] [address] PCP - General General Internal Medicine 04/26/17 10/31/19 documented as of this encounter
--- OUTSIDE RECORDS SUMMARY | 2024-02-04 00:42 | XMS_ITS | Encounter Summary ---
Author Organization [facility] [place] [address] Care Team Providers Care Material Assembler Name Role Phone Carlos Alberto Ag MD Primary Care Provider Encounter Details Date Type Department Care Team (Late st Contact Info) Description 12/14/2018 Telephone [place] [phone] Sofia Fritz Social History Tobacco Use Types [...] on filedocumented in this encounter Care Teams Material Assembler Relationship Specialty Start Date End Date Carlos Alberto Ag MD [facility] GENER[facility] [place] [address] PCP - General General Internal Medicine 04/26/17 10/31/19 documented as of this encounter
--- OUTSIDE RECORDS SUMMARY | 2024-02-04 00:42 | XMS_ITS | Encounter Summary ---
Author Organization [facility] [place] [address] Care Team Providers Care Fittings Tightener Name Role Phone Carlos Alberto Ag MD Primary Care Provider Reason for Visit * Reason Onset Date Comments Medication Refill 11/16/2018 Encounter Details Date Type Department Care Team (Late st Contact Info) Description 11/16/2018 [place] [address] Carlos Alberto Ag MD [facility] [address] [address] Gastroesophageal reflux disease, esophagitis presence not specified; [...] hypertension documented in this encounter Care Teams Fittings Tightener Relationship Specialty Start Date End Date Carlos Alberto Ag MD [facility] [address] [place] [address] PCP - General General Internal Medicine 04/26/17 10/31/19 documented as of this encounter
--- OUTSIDE RECORDS SUMMARY | 2024-02-04 00:42 | XMS_ITS | Encounter Summary ---
Author Organization [facility] [place] [address] Care Team Providers Care Corporate Director Name Role Phone Carlos Alberto Ag MD Primary Care Provider Reason for Visit * Reason Onset Date Comments Other 08/22/2019 Encounter Details Date Type Department Care Team ([facility] st Contact Info) Description 08/22/2019 Telephone [place] [phone] Carmen Vaca [facility] [place] [address] Other Social History Tobacco Use Types Packs/Day [...] Notes * Telephone Encounter - Carmen Vaca [facility] - 08/22/2019 10:54 AM EDT Primary Care & Psychiatry Collaborative Care Called to follow up on referral from Dr. Ag. [facility]. Plan to sent my message as well to connect and follow up on mental health symptoms. Carmen Vaca M.S., [facility] Behavioral Health Clinician (BHC) Primary Care & Psychiatry Collaborative Care [facility] Direct # [phone] Clinic#: [phone] Pager [phone] documented in this encounter Plan of Treatment Not on file documented as of this encounter Visit Diagnoses Not on filedocumented in this encounter Care Teams Corporate Director Relationship Specialty Start Date End Date Carlos Alberto Ag MD [facility] [place] [address] PCP - General General Internal Medicine 04/26/17 10/31/19 documented as of this encounter
--- OUTSIDE RECORDS SUMMARY | 2024-02-04 00:42 | XMS_ITS | Encounter Summary ---
Author Organization [facility] Address [facility] [place] [address] Care Team Providers Care Structural Steel Detailer Name Role Phone Carlos Alberto Ag MD Primary Care Provider Reason for Visit * Physical Therapy (Routine) - Closed Specialty Diagnoses / Procedures Referred By Contac t Referred To Contact Physical Therapy Diagnoses Chronic right hip pain Carlos Alberto Ag MD [facility] [place] [address] [address] [place] [address] Referral ID Status Reason Start Date Expiration Date V isits Requested Visits Authorized [id number] Closed Evaluate and Treat 05/13/2017 05/13/2018 1 1 Encounter Details Date Type Department Care Team (Late st Contact Info) Description 06/03/2017 8:00 AM EST Office Visit Physical Therapy at [facility] [address] [place] [phone] Navid Enamorado, PT [facility] PHYSICAL MEDICINE & [place] [address] Chronic right hip pain Social History Tobacco [...] symptoms. 2. Improved awareness of compensation Therapy Fire Warden Goals ( 6wks) Patient will... 1. increase [...] thigh documented in this encounter Care Teams Structural Steel Detailer Relationship Specialty Start Date End Date Carlos Alberto Ag MD [facility] [place] [address] PCP - General General Internal Medicine 04/26/17 10/31/19 documented as of this encounter
--- OUTSIDE RECORDS SUMMARY | 2024-02-04 00:42 | XMS_ITS | Encounter Summary ---
Author Organization [facility] [place] [address] Care Team Providers Care Yarn Skeins Examiner Name Role Phone Carlos Alberto Ag MD Primary Care Provider Encounter Details Date Type Department Care Team (Late st Contact Info) Description 03/30/2019 Orders [place] [address] Carlos Alberto Ag MD [facility] [address] [place] [address] Essential hypertension; Uncontrolled type 2 diabetes mellitus [...] tract documented in this encounter Care Teams Yarn Skeins Examiner Relationship Specialty Start Date End Date Carlos Alberto Ag MD [facility] [address] [place] [address] PCP - General General Internal Medicine 04/26/17 10/31/19 documented as of this encounter
--- OUTSIDE RECORDS SUMMARY | 2024-02-04 00:42 | XMS_ITS | Encounter Summary ---
Author Organization [facility] Address [facility] Veronica [facility] [place] [address] Care Team Providers Care Curtain Cutter Hand Name Role Phone Enoch Medina MD Primary Care Provider [phone] Reason for Visit * Reason Comments Medication Refill Encounter Details Date Type Department Care Team ([facility] st Contact Info) Description 01/09/2017 Refill Internal Medicine at [facility] [address] [place] [address] [place] [address] Essential hypertension Social History Tobacco Use Types [...] [facility] [place] * Telephone Encounter - Aisha Powers MA - 01/11/2017 12:14 PM EDT Called Pt and left VM. Call is in regards to lisinopril Rx. Need to verify if she wants the [facility] pharmacy, or mail order. And if mail order, which one? Thank you, Mary Powers MA My ext is [phone] documented in this encounter Plan of Treatment Not on file documented as of this encounter Visit Diagnoses Diagnosis Essential hypertension Unspecified essential hypertension documented in this encounter Care Teams Curtain Cutter Hand Relationship Specialty Start Date End Date Enoch Medina MD [facility] DR PAT[address] YE[facility] [place] [address] PCP - General Family Medicine 08/22/20 06/03/21 documented as of this encounter
--- OUTSIDE RECORDS SUMMARY | 2024-02-04 00:42 | XMS_ITS | Encounter Summary ---
Author Organization [facility] [place] [address] Care Team Providers Care Aviculturist Name Role Phone Carlos Alberto Ag MD Primary Care Provider Reason for Visit * Reason Onset Date Comments Medication Refill 08/15/2019 Encounter Details Date Type Department Care Team (Late st Contact Info) Description 08/15/2019 Ref[place] [address] Carlos Alberto Ag MD [facility] [address] [place] [address] Gastroesophageal reflux disease, esophagitis presence not specified; [...] hypertension documented in this encounter Care Teams Aviculturist Relationship Specialty Start Date End Date Carlos Alberto Ag MD [facility] [address] [place] [address] PCP - General General Internal Medicine 04/26/17 10/31/19 documented as of this encounter
--- OUTSIDE RECORDS SUMMARY | 2024-02-04 00:42 | XMS_ITS | Encounter Summary ---
Author Organization Counts Include [facility] Address [facility] [place] [address] Care Team Providers Care Clay Dry Press Mixer Operator Name Role Phone Enoch Medina MD Primary Care Provider [phone] Reason for Visit * Reason Onset Date Comments Medication Refill 03/30/2019 Encounter Details Date Type Department Care Team (Late st Contact Info) Description 03/30/2019 Refill Internal Medicine at [facility] [address] [place] [address] Carlos Alberto Ag MD [facility] [place] [address] Menstrual disorder; Essential hypertension; Uncontrolled type 2 [...] insulin documented in this encounter Care Teams Clay Dry Press Mixer Operator Relationship Specialty Start Date End Date Enoch Medina MD [facility] DR PAT[address] [place] [address] PCP - General Family Medicine 08/22/20 06/03/21 documented as of this encounter
--- OUTSIDE RECORDS SUMMARY | 2024-02-04 00:42 | XMS_ITS | Encounter Summary ---
Author Organization [facility] [place] [address] Care Team Providers Care Home Service Technician Name Role Phone Carlos Alberto Ag MD Primary Care Provider Reason for Visit * Reason Comments Medication Refill Encounter Details Date Type Department Care Team (Late st Contact Info) Description 01/29/2019 [place] [address] Carlos Alberto Ag MD [facility] [place] [address] Uncontrolled type 2 diabetes mellitus without complication, [...] documented in this encounter Care Teams Home Service Technician Relationship Specialty Start Date End Date Carlos Alberto Ag MD [facility] [place] [address] PCP - General General Internal Medicine 04/26/17 10/31/19 documented as of this encounter
--- OUTSIDE RECORDS SUMMARY | 2024-02-04 00:42 | XMS_ITS | Encounter Summary ---
Author Organization [facility] [place] [address] Care Team Providers Care Electronic Tech Name Role Phone Pita Narayanan MD Primary Care Provider [phone] Reason for Visit * Reason Onset Date Comments Other 02/04/2017 med reconcilliat ion Encounter Details Date Type Department Care Team (Late st Contact Info) Description 02/04/2017 Telephone Internal Medicine at [facility] [address] [place] [address] Yoly Palacios RN Other (med reconcilliation) Social [...] on filedocumented in this encounter Care Teams Electronic Tech Relationship Specialty Start Date End Date Pita Narayanan MD [facility] DR PAT[address] DOWNEY [place] [address] PCP - General General Internal Medicine 01/28/1604/22 documented as of this encounter
--- OUTSIDE RECORDS SUMMARY | 2024-02-04 00:43 | XMS_ITS | Encounter Summary ---
Author Organization [facility] Address [facility] [place] [address] Care Team Providers Care Audio/Video Technician Name Role Phone Pita Narayanan MD Primary Care Provider [phone] Encounter Details Date Type Department Care Team (Late st Contact Info) Description 08/14/2016 Telephone Internal Medicine at [facility] [address] [place] [address] Pita Narayanan MD [facility] [place] [address] Social History Tobacco Use Types Packs/Day Years [...] on filedocumented in this encounter Care Teams Audio/Video Technician Relationship Specialty Start Date End Date Pita Narayanan MD [facility] [address] PATR[address] [place] [address] PCP - General General Internal Medicine 01/28/1604/22 documented as of this encounter
--- OUTSIDE RECORDS SUMMARY | 2024-02-04 00:43 | XMS_ITS | Encounter Summary ---
Author Organization [facility] [place] [address] Care Team Providers Care Outplacement Consultant Name Role Phone Dav Carlos MD Primary Care Provider [phone] Reason for Visit * Reason Comments Suture / Staple Removal Encounter Details Date Type Department Care Team ([facility] st Contact Info) Description 12/23/2011 9:45 AM EDT Office Visit Obstetrics and Gynecology at [facility] [place] [address] Alexandre Powers RN Encounter for removal of [...] hypertension. Today the patient is without complaint. [place] removed without difficulty and steri strips applied. Patient will call with any redness or discharge from incision. documented in this encounter Plan of Treatment Not on file documented as of this encounter Visit Diagnoses Diagnosis Encounter for removal of sutures- Primary documented in this encounter Care Teams Outplacement Consultant Relationship Specialty Start Date End Date Dav Carlos MD PCP - General 10/01/10 11/30/12 documented as of this encounter
--- OUTSIDE RECORDS SUMMARY | 2024-02-04 00:43 | XMS_ITS | Encounter Summary ---
Author Organization [facility] Address [facility] [address] Care Team Providers Care Rag Cutting Machine Operator Name Role Phone Pita Narayanan MD Primary Care Provider [phone] Reason for Visit * Reason Comments Follow-up DM; has lump under s kin in left armpit, first noticed about 2 wks ago, getting larger and moving forward; discuss venlafaxine dosage, increase?; did Depo at home on [facility] Encounter Details Date Type Department Care Team (Late st Contact Info) Description 08/20/2016 2:30 PM EDT Office Visit Internal Medicine at [address] [phone] Pita Narayanan MD [facility] [place] [address] Uncontrolled type 2 diabetes mellitus without complication, [...] Clinician follow up: 3 months [] Certified Pediatric Physiatrist/Endocrine follow up/referral: [x] Referrals/Labs/Testing: up to date [...] planning Schedule change for 1-2 months, about group home through this Was working 6 days with [...] Clinician follow up: 3 months [] Certified Pediatric Physiatrist/Endocrine follow up/referral: [x] Referrals/Labs/Testing: up to date [...] hemoglobin, total (HA1C) (08/20/2016 2:42 PM EDT) Hemoglobin A1C, POC 8.1(A) 4.3 - 5.6 % 08/20/2016 2:42 [...] hypertension documented in this encounter Care Teams Rag Cutting Machine Operator Relationship Specialty Start Date End Date Pita Narayanan MD [facility] DR [address] [place] [address] PCP - General General Internal Medicine 01/28/1604/22 documented as of this encounter
--- OUTSIDE RECORDS SUMMARY | 2024-02-04 00:43 | XMS_ITS | Encounter Summary ---
Author Organization [facility] Veronica barbayu [place] [id number] Care Team Providers Care Warehouse Picker Name Role Phone Pita Narayanan MD Primary Care Provider [phone] Reason for Referral * Psychiatric (Routine) - Closed Specialty Diagnoses / Procedures Referred By Contac t Referred To Contact Primary Care Diagnoses Depression Pita Narayanan MD [facility] [place] [address] Karsten Morris MD [facility] [place] [address] Referral ID Status Reason Start Date Expiration Date V isits Requested Visits Authorized [id number] Closed Consult, Test & Treat 01/30/2013 07/29/2013 1 1 Reason for Visit * Reason Comments Establish Care wants to discuss new anti-depressant; may need refills Encounter Details Date Type Department Care Team (Late st Contact Info) Description 01/30/2013 8:25 AM EDT Office Visit Internal Medicine at [facility] [address] [place] [address] Pita Narayanan MD [facility] [place] [address] Healthcare maintenance (Primary Dx); Diabetes [...] February 11Wednesday, 0800 am - 1 pm, [facility] Auditorium A, B, C Referral for medication consult with Dr Morris, our consulting psychiatrist at [facility] Psychiatry emergency services: [phone] [facility] Emergency room: [phone] WILLIS PENALOZA real estate utilization officer after 5 pm and on weekends; through [facility] Finance Effectiveness Manager [phone] [facility] 24 hr emergency line [facility] 24 hr emergency line ; appt intake line [phone] While waiting for visit with Dr Morris: [...] Records release for Dr Carlos's office at [facility]. Last 5 years will be sufficient. [...] records received. Will do records release Reviewed staffing analyst notes Did not do questionnaire before visit [...] just moved, now in an apartment, in [place]. Works at [employer] in [facility]. Discussed job security. They have EAP. Says has gotten irritated and walks out. Can be tempermental. Has seen people for this Had worked on this before her sister . Then had a setback with this. PHQ9 is 7. Has been more depressed in past Support network--mother, friend who lives with them, knows 19 years. Mother lives in [place]. There is fhx of depression, anger issues I take care of her mother. No prior abuse hx. No abuse issues with first marriage Father of older child lives in [facility]. This father not really involved. #DM [...] for eye exam--goes to [facility] in [facility]. No foot paresthesias. Not on anything [...] Aware of risks to her on this. [id number], also helps regulate menses. Has 1 RF [...] tablet by mouth daily. Records release from [facility]--additional background would have been helpful to [...] Results * TSH (01/30/2013 10:22 AM EDT) Thyroid Stimulating Hormone 2.35 0.27 - 4.20 mcIU/mL [facility] Blood specimen (specimen) 01/30/2013 10:22 AM EDT 01/30/2013 12:32 PM EDT Narrative Resulting Agency Comment Spec In Lab Pita Narayanna MD CHEMISTRY ORDERABLES [facility] * Hemoglobin A1c (01/30/2013 10:22 AM EDT) Hemoglobin A1c 5.8 4.3 - 6.1 % [facility] Comment: The [place] Diabetes Association (ADA) has stated that HbA1c [...] in Diabetes 2013. Diabetes Care 2013:36;suppl 1:S11-S66. Estimated Average Glucose 120 mg/dL [facility] Comment: eAG equivalents for HbA1c percentages: [...] into estimated average glucose values. ??Diabetes Care 2008:31(8):3032-5802. Blood specimen (specimen) 01/30/2013 10:22 AM EDT 01/30/2013 12:34 PM EDT Narrative Resulting Agency Comment Spec In Lab Pita Narayanan MD CHEMISTRY ORDERABLES [facility] * (ABNORMAL) Lipid panel (fasting) (01/30/2013 10:22 AM EDT) Cholesterol, Total 160 <=199 mg/dL [facility] Comment: Recommendations of the NCEP Adult Treatment Panel for the following risk cutoff thresholds for the [place] population: Desirable: <200 mg/dL Borderline High: 200-239 mg/dL High: > or = 240 mg/dL Triglyceride 233(H) <=149 mg/dL [facility] Comment: Reference Range: Normal triglycerides: ??<150 mg/dL Borderline high: ??150-199 mg/dL High: ??200-499 mg/dL Very high: ??>zk=499 mg/dL PATRICA 2001; 285(19):6066-2893 HDL Cholesterol 40 >=40 mg/dL ZEV CRUZ [facility] Comment: Reference range: ??Low HDL: ?? < 40 mg/dL ??Normal: ?40-60 mg/dL ??Desirable: > 60 mg/dL PATRICA 2001; 285(19):7233-0917 LDL Cholesterol 73 <=99 mg/dL [facility] Comment: Reference range: ?? Optimal: ?<100 mg/dL ?? Near Optimal/Above Optimal: ?? 100-129 mg/dL ?? Borderline high: ?130-159 mg/dL ?? High: ? 160-189 mg/dL ?? Very high: ?>yu=746 mg/dL PATRICA 2001: 285(19):6786-9808 Cholesterol/HDL Ratio 4.0 ratio [facility] Comment: A Cholesterol to HDL ratio below 4:1 is desirable. ??Studies suggest that increased CAD risk occurs at ratios above 5 for females and above 6 for men. ? [place] Heart Association ??(http://www.americanheart.org) ? Michaela Int Med, 1994; 121:641 ? AM J Med, 1998; 105(1A):48S Blood specimen (specimen) 01/30/2013 10:22 AM EDT 01/30/2013 12:32 PM EDT Narrative Resulting Agency Comment Spec In Lab Pita Narayanan MD CHEMISTRY ORDERABLES [facility] * (ABNORMAL) BMP w/fasting Glucose (01/30/2013 10:22 AM EDT) Glucose Fasting 123(H) 65 - 99 mg/dL [facility] Comment: ?Fasting* Glucose Interpretive Criteria Normal [...] of Diabetes Mellitus, Position Statement from the [place] Diabetes Association. ??Diabetes Care, Volume 33, Supplement 1, Apr 2009 Blood Urea Nitrogen 9 8 - 18 mg/dL [facility] Creatinine 0.67(L) 0.70 - 1.20 mg/dL [facility] Comment: Please note that the pediatric reference intervals supplied above were not validated at [facility]. Results from pediatric patients should be interpreted [...] 99 98 - 107 mmol/L [facility] Carbon Dioxide 26 22 - 31 mmol/L [facility] Anion Gap 11 5 - 15 mmol/L [facility] Calcium 8.9 8.5 - 10.5 mg/dL [facility] Est Glomerular Filtration Rate >60 >=60 [facility] Comment: This estimated [...] Narayanan MD CHEMISTRY ORDERABLES Performing Organization Address [facility] Co de Phone Number ANA GILMAN * Microalbumin, urine, random (01/30/2013 10:07 AM EDT) Creatinine, Urine 166 mg/dL CE RNER MILLENNIUM Albumin, Urine 169.9 mg/L CERNE R MILLENNIUM Albumin / Creatinin Ratio, Urine 102 mcg/mg Cr [facility] Comment: Reference Range* Random collection (mcg/mg creatinine) Normal ?<30 Microalbuminuria ?? 30 - 300 Clinical Albuminuria ?? >300 *[place] Diabetes Association. Diabetic Nephropathy. Diabetes Care 1997;(Suppl 1):S24-S27 Exercise within 24 hour, infection, fever, CHF, marked hyperglycemia, and marked hypertension may elevate urinary albumin excretion over baseline values. Urine specimen (specimen) 01/30/2013 10:07 AM EDT 01/30/2013 12:31 PM EDT Narrative Resulting Agency Comment Spec In Lab Pita Narayanan MD URINE ORDERABLES Performing Organization Address [facility] Co de Phone Number ANA [...] reflux documented in this encounter Care Teams Warehouse Picker Relationship Specialty Start Date End Date Pita Narayanan MD [facility] [place] [address] PCP - General 12/01/12 04/21/15 documented as of this encounter
--- OUTSIDE RECORDS SUMMARY | 2024-02-04 00:43 | XMS_ITS | Encounter Summary ---
Author Organization [facility] [place] [address] Care Team Providers Care Steam And Gas Turbine Assembler Name Role Phone Pita Narayanan MD Primary Care Provider [phone] Reason for Visit * Reason Onset Date Comments Medication Refill 01/09/2013 Encounter Details Date Type Department Care Team (Late st Contact Info) Description 01/09/2013 Refill Obstetrics [place] [address] Marilyn Reilly MD [facility] [place] [address] Hypertension (Primary Dx) Social History Tobacco Use [...] hypertension documented in this encounter Care Teams Steam And Gas Turbine Assembler Relationship Specialty Start Date End Date Pita Narayanan MD [facility] [address] [place] [address] PCP - General 12/01/12 04/21/15 documented as of this encounter
--- OUTSIDE RECORDS SUMMARY | 2024-02-04 00:43 | XMS_ITS | Encounter Summary ---
Author Organization [facility] [place] [address] Care Team Providers Care Clinical Courier Name Role Phone Pita Narayanan MD Primary Care Provider [phone] Encounter Details Date Type Department Care Team (Late st Contact Info) Description 01/26/2013 Telephone Internal Medicine at [facility] [address] [place] [address] Makenzie Rutledge CMA Social History [...] filedocumented in this encounter Care Teams Clinical Courier Relationship Specialty Start Date End Date Pita Narayanan MD [facility] [place] [address] PCP - General 12/01/12 04/21/15 documented as of this encounter
--- OUTSIDE RECORDS SUMMARY | 2024-02-04 00:43 | XMS_ITS | Encounter Summary ---
Author Organization [facility] [place] [address] Care Team Providers Care Air Force Senior Officer Name Role Phone Pita Narayanan MD Primary Care Provider [phone] Encounter Details Date Type Department Care Team (Latest Contact Info) Description 05/11/2016 1:40 PM EST Clinical Support Internal Medicine at [facility] [address] [place] [address] Yoly Palacios RN Encounter for contraceptive management, [...] Tissue documented in this encounter Care Teams Air [employer] Senior Officer Relationship Specialty Start Date End Date Pita Narayanan MD [facility] [address] [place] [address] PCP - General General Internal Medicine 01/28/1604/22 documented as of this encounter
--- OUTSIDE RECORDS SUMMARY | 2024-02-04 00:43 | XMS_ITS | Encounter Summary ---
Author Organization [facility] [place] [address] Care Team Providers Care Director Family Name Role Phone Pita Narayanan MD Primary Care Provider [phone] Encounter Details Date Type Department Care Team (Late st Contact Info) Description 05/14/2016 Abstract Internal Medicine at [facility] [address] [place] [address] Padma Miller, [facility] Social History Tobacco Use Types Packs/Day [...] Hemoglobin A1c (09/18/2015 10:06 AM EDT) Hemoglobin A1c 7.5(INTENSIVE CARE AMBULANCE PARAMEDIC AL/ABN) EXTERNAL LAB Comment:external reference r brandon 5.0-5.6 Blood specimen (specimen) 09/18/2015 10:06 AM EDT Historical Provider CHEMISTRY ORDERAB LES EXTERNAL LAB * (ABNORMAL) Lipid External Results (09/18/2015) Cholesterol, Total 154(Exter nal Lab) mg/dL EXTERNAL LAB HDL Cholesterol 27(INTENSIVE CARE AMBULANCE PARAMEDIC AL/ABN) mg/dL EXTERNAL LAB Comment:external reference r brandon 40-60 LDL Cholesterol 58(INTENSIVE CARE AMBULANCE PARAMEDIC AL/ABN) mg/dL EXTERNAL LAB Comment:external reference r brandon 60-100 Triglyceride 347(EXTER NAL/ABN) mg/dL EXTERNAL LAB Comment:external reference r brandon 35-150 09/18/2015 Historical Provider POINT OF CARE GONZALES T ORDERABLES Performing Organization Address [facility]/ZIP Co de Phone Number EXTERNAL LAB * (ABNORMAL) CBC / CMP / Thyroid External Results (09/18/2015) Sodium 136(Exter nal Lab) 137 - 147 EXTERNAL LAB Potassium 4.0(Exter nal Lab) 3.4 - 5.3 EXTERNAL LAB Chloride 100(Exter nal Lab) 99 - 108 EXTERNAL LAB Carbon Dioxide 29([place] [place] al Lab) 22 - 29 EXTERNAL LAB Blood Urea Nitrogen 15([facility] [place] al Lab) EXTERNAL LAB Creatinine 0.63(Exte rnal Lab) EXTERNAL LAB Glucose 178(EXTER NAL/ABN) EXTERNAL LAB Comment:external reference r brandon 70-110 Calcium 8.3(EXTER NAL/ABN) 8.7 - 10.7 EXTERNAL LAB Comment:external reference r brandon 8.6-10.5 Protein, Total 6.7(Exter nal Lab) 6.4 - 8.2 EXTERNAL LAB Albumin 3.7(Exter nal Lab) EXTERNAL LAB Bilirubin, Total 0.3(Exter nal Lab) EXTERNAL LAB Alkaline Phosphatase 62([facility] [place] al Lab) EXTERNAL LAB Aspartate Aminotransferase 12([facility] [place] [facility]) 13 - 35 EXTERNAL LAB Alanine Aminotransferase 28([facility] [place] al Lab) 7 - 35 EXTERNAL LAB 09/18/2015 Historical Provider EXTERNAL LAB KELLEN ADEN EXTERNAL LAB documented in this encounter Visit Diagnoses Not on filedocumented in this encounter Care Teams Director Family Relationship Specialty Start Date End Date Pita Narayanan MD [facility] [address] [place] [address] PCP - General General Internal Medicine 01/28/1604/22 documented as of this encounter
--- OUTSIDE RECORDS SUMMARY | 2024-02-04 00:43 | XMS_ITS | Encounter Summary ---
Author Organization [facility] [place] [address] Care Team Providers Care Telecommunications Manager Name Role Phone Pita Narayanan MD Primary Care Provider [phone] Encounter Details Date Type Department Care Team (Late st Contact Info) Description 04/13/2014 Telephone Internal Medicine at [facility] [address] [place] [address] Angélica Ochoa Social History Tobacco Use Types [...] on filedocumented in this encounter Care Teams Telecommunications Manager Relationship Specialty Start Date End Date Pita Narayanan MD [facility] PRIMARY CARE [place], [place] [id number] PCP - General 12/01/12 04/21/15 documented as of this encounter
--- OUTSIDE RECORDS SUMMARY | 2024-02-04 00:43 | XMS_ITS | Encounter Summary ---
Author Organization [facility] [place] [address] Care Team Providers Care Manager Construction Name Role Phone Dav Carlos MD Primary Care Provider [phone] Encounter Details Date Type Department Care Team (Latest Contact Info) Description 12/18/2011 8:45 AM EDT - 12/18/2011 9:44 AM EDT Hospital Encounter Ultrasound at [facility] [place] [address] Unspecified high-risk Social History Tobacco Use Types [...] Final 12/18/2011 11:15 am) Patient Info ID: ?[id number] ?: ??[birth year] (31 yrs) Name: ?MIGDALIA MOREIRA ?Visit Date: 12/18/2011 08:57 am Performed By Performed By: ?Melissa Villareal RDMS Attending: ? Lisette Elise MD ??Valerie Referred By: ? MARILYN HOUSE MD Service(s) Provided UOBFOL - Efw - Growth - Reevaluation - [place] ?[id number] - [id number] Indications Reason for exam and clinical history: [...] Final 12/18/2011 11:15 am) Patient Info ID: [id number] : [birth year] (31 yrs) Name: MIGDALIA MOREIRA Visit Date: 12/18/2011 08:57 am Performed By Performed By: Melissa Villareal [facility] Attending: Lisette Elise MD Referred By: MARILYN HOUSE MD Service(s) Provided UOBFOL - Efw - Growth - Reevaluation - [place] [id number] - [id number] Indications Reason for exam and clinical history: [...] documented in this encounter Care Teams Manager Construction Relationship Specialty Start Date End Date Dav Carlos MD PCP - General 10/01/10 11/30/12 documented as of this encounter
--- OUTSIDE RECORDS SUMMARY | 2024-02-04 00:43 | XMS_ITS | Encounter Summary ---
Author Organization [facility] [place] [address] Care Team Providers Care Microbiology Analyst Name Role Phone Pita Narayanan MD Primary Care Provider [phone] Encounter Details Date Type Department Care Team (Late st Contact Info) Description 04/29/2016 Telephone Psychiatry and [place] [phone] Bhupinder Ray, PASTE MIXER Social History Tobacco Use Types Packs/Day Years [...] this patient's well-being. Spoke with Marilyn of [facility] who will contact the patient today. documented in this encounter Plan of Treatment Not on file documented as of this encounter Visit Diagnoses Not on filedocumented in this encounter Care Teams Microbiology Analyst Relationship Specialty Start Date End Date Pita Narayanan MD [facility] [address] [place] [address] PCP - General General Internal Medicine 01/28/1604/22 documented as of this encounter
--- OUTSIDE RECORDS SUMMARY | 2024-02-04 00:43 | XMS_ITS | Encounter Summary ---
Author Organization [facility] [place] [address] Care Team Providers Care Van Driver Helper Name Role Phone Pita Narayanan MD Primary Care Provider [phone] Encounter Details Date Type Department Care Team (Late st Contact Info) Description 04/29/2016 Orders Only Internal Medicine at [facility] [address] [place] [address] Faye Jackson RN Irregular menses Social History [...] cycle documented in this encounter Care Teams Van Driver Helper Relationship Specialty Start Date End Date Pita Narayanan MD [facility] [place] [address] PCP - General General Internal Medicine 01/28/1604/22 documented as of this encounter
--- OUTSIDE RECORDS SUMMARY | 2024-02-04 00:43 | XMS_ITS | Encounter Summary ---
Author Organization [facility] [place] [address] Care Team Providers Care Room Service Waiter Name Role Phone Pita Narayanan MD Primary Care Provider [phone] Reason for Visit * Reason Comments Follow-up * Consultation (Urgent) - Specialty Diagnoses / Procedures Referred By Contmak t Referred To Contact Primary Care Diagnoses Severe episode of recurrent major depressive disorder, without psychotic features Pita Narayanan MD [facility] [address] [place] [address] [facility] Internal Medicine [address] [place] [address] Referral ID Status Reason Start Date Expiration Date Visits Requested Visits Authorized [id number] Specialty Service Requested 04/29/2016 04/29/2017 1 1 Encounter Details Date Type Department Care Team ([facility] st Contact Info) Description 05/11/2016 9:00 AM EST Office Visit Internal Medicine at [facility] [address] [place] [address] Karsten Morris MD [facility] [address] Severe episode of recurrent major [...] is ok) Give chance with therapist at [facility] 3 - 5 visits. Follow-up with Dr. Gama 05/19/16 Strong does not mean doing it alone. documented in this encounter Progress Notes * Karsten Morris MD - 05/11/2016 9:00 AM EST REFERRAL SOURCE: Dr. Pita Narayanan. REASON FOR REFERRAL: Recent intensifying suicidal ideation and increasing PHQ-9 reflective of moderate to severe depression. LOCATION OF APPOINTMENT: [facility] Psychiat[facility]. DURATION OF APPOINTMENT: 60 minutes. ADDITIONAL [...] use disorder. She currently is employed at [employer], resides with her 2 children in [place], [place], and is insured through [employer]. CHIEF COMPLAINT: I've had depression since high school, but this is the first time I've felt suicidal and not wanting to be around my kids, which really scared me. HISTORY OF PRESENT ILLNESS: Sarah recently reestablished care with Dr. Narayanan at the [facility]. She had previously been seeing a primary care physician in [place], but was finding that her mental health [...] environment. 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 SOCIAL HISTORY: Born in [place], raised in [place], youngest of 3 children from her mother [...] good relationship. He has just moved to [place], is getting re-involved with the children which is overall positive but somewhat stressful on the family system. Her second marriage was for 3 years. This partner struggled with substance use, is currently not in their lives. Her 2 children are Barbara, age 10, and Torrie, age 4, whom she is very dedicated to. 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 She has been with them for 3 years. The shifting schedule is stressful. She works 6 p.m. to 6 a.m. on , Wednesday, Wednesday and every other weekend. This makes sleep fragmented and difficult, is often combined with caring for her children. 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 documented in this encounter Plan of Treatment Not on file documented as of this encounter Visit Diagnoses Diagnosis Severe episode of recurrent major depressive disorder, without psychotic features documented in this encounter Care Teams Room Service Waiter Relationship Specialty Start Date End Date Pita Narayanan MD [facility] [place] [address] PCP - General General Internal Medicine 01/28/1604/22 documented as of this encounter
--- OUTSIDE RECORDS SUMMARY | 2024-02-04 00:43 | XMS_ITS | Encounter Summary ---
Author Organization [facility] [place] [address] Care Team Providers Care Alumina Refinery Operator Name Role Phone Pita Narayanan MD Primary Care Provider [phone] Reason for Visit * Reason Onset Date Comments No Show 08/19/2016 Encounter Details Date Type Department Care Team ([facility] Contact Info) Description 08/19/2016 Telephone Family Medicine at [facility] [address] [place] [address] Marilyn Mock No Show Social History Tobacco [...] on filedocumented in this encounter Care Teams Alumina Refinery Operator Relationship Specialty Start Date End Date Pita Narayanan MD [facility] [address] [place] [address] PCP - General General Internal Medicine 01/28/1604/22 documented as of this encounter
--- OUTSIDE RECORDS SUMMARY | 2024-02-04 00:43 | XMS_ITS | Encounter Summary ---
Author Organization [facility] [place] [address] Care Team Providers Care Team Physician Name Role Phone Dav Carlos MD Primary Care Provider [phone] Encounter Details Date Type Department Care Team (Late st Contact Info) Description 12/04/2011 3:45 PM EDT Routine Obstetrics and Gynecology at [facility] [place] [address] CLINIC, Katelin Briones RN GA: [id number] Discharge [...] uncontrolled documented in this encounter Care Teams Team Physician Relationship Specialty Start Date End Date Dav Carlos MD PCP - General 10/01/10 11/30/12 documented as of this encounter
--- OUTSIDE RECORDS SUMMARY | 2024-02-04 00:43 | XMS_ITS | Encounter Summary ---
Author Organization [facility] [place] [address] Care Team Providers Care Crusher Feeder Name Role Phone Dav Carlos MD Primary Care Provider [phone] Reason for Visit * Reason Comments Non-stress Test Routine Visit Encounter Details Date Type Department Care Team (Late st Contact Info) Description 12/08/2011 10:30 AM EDT Routine Obstetric[place] [address] Marilyn House MD [facility] [address] OBSTETRICS [place] [address] GA: [id number] Discharge Disposition: Home Social History [...] entitled Position and Tips for Successful and [facility] Services. documented in this encounter Plan of Treatment Not on file documented as of this encounter Procedures Procedure Name Priority Date/Time Associated Diagnosis Comments GROUP B STREPTOCOCCUS SCREEN Routine 12/08/2011 10:39 AM EDT GROUP B STREP CULTURE SCREEN Routine 12/08/2011 10:39 AM EDT Unspecified high-risk documented in this encounter Results * GROUP B STREPTOCOCCUS SCREEN (12/08/2011 10:39 AM EDT) GBS Screen Pos [facility] Pooled specimen from vaginal introitus and rectal swab (specimen) 12/08/2011 10:39 AM EDT 12/08/2011 3:04 PM EDT Comment:PENICILLIN ALLERGY?- >NO Narrative Resulting Agency Comment Spec In Lab Marilyn House MD MICROBIOLOGY - GEN ERAL ORDERABLES [facility] * Group B Strep Culture Screen (12/08/2011 10:39 AM EDT) Group B Streptococcus Culture ? Patient Name: MIGDALIA MOREIRA ? Ordered By: MARILYN HOUSE ? MR#: [id number] ?LOC: ??5L ? /Sex: ??1980 (31 years), ? Female ? PROCEDURE: Group B Streptococcus Culture ?SOURCE: Vag/Rectal ? COLLECTED: 12/08/2011 10:39 ?FREE TEXT SOURCE: Penicillin Allergy?->No ? STARTED: 12/08/2011 15:04 ? FINAL REPORT ? Final Report ? Verified: 012 10:33 ? Beta Hemolytic Streptococci, Group B isolated ? ANA MILLENNIUM Pooled specimen from vaginal introitus and rectal swab (specimen) 12/08/2011 10:39 AM EDT 12/08/2011 3:04 PM EDT Comment:PENICILLIN ALLERGY?- >NO Narrative Resulting Agency Comment Spec In Lab Marilyn House MD MICROBIOLOGY - GEN ERAL ORDERABLES [facility] documented in this encounter Visit Diagnoses Diagnosis Unspecified high-risk documented in this encounter Care Teams Crusher Feeder Relationship Specialty Start Date End Date Dav Carlos MD PCP - General 10/01/10 11/30/12 documented as of this encounter
--- OUTSIDE RECORDS SUMMARY | 2024-02-04 00:43 | XMS_ITS | Encounter Summary ---
Author Organization [facility] Address [facility] [place] [address] Care Team Providers Care Hebrew Professor Name Role Phone Pita Narayanan MD Primary Care Provider [phone] Encounter Details Date Type Department Care Team (Latest Contact Info) Description 05/11/2016 10:15 AM EST Laboratory Appointment Lab at [facility] [address] [place] [address] Type 2 diabetes mellitus without complication, unspecified care home insulin use status; Essential hypertension Social History [...] Type 2 diabetes mellitus without complication, unspecified care home insulin use status Essential hypertension documented in this encounter Results * (ABNORMAL) BMP w/fasting Glucose (05/11/2016 10:28 AM EST) Glucose Fasting 175(H) 65 - 99 mg/dL [facility] Comment: ?Fasting* Glucose Interpretive Criteria [...] of Diabetes Mellitus, Position Statement from the [place] [employer]. ??Diabetes Care, Volume 33, Supplement 1, Apr 2009 Blood Urea Nitrogen 15 8 - 18 mg/dL [facility] Creatinine 0.72 0.70 - 1.20 mg/dL [facility] Comment: Please note that the pediatric reference intervals supplied above were not validated at [facility]. Results from pediatric patients should be interpreted in conjunction to the patient's age, height and muscle mass. Sodium 142 135 - 145 mmol/L [facility] Potassium 4.3 3.5 - 5.0 mmol/L [facility] Comment: Please note: ??Patients with WBC >100,000 may have falsely elevated Potassium levels. ??For accurate Potassium quantification in these patients send serum separator tube (gold top) for subsequent determinations. ??Contact the Clinical Chemistry Laboratory if there are any questions. Chloride 102 98 - 107 mmol/L [facility] Carbon Dioxide 28 22 - 31 mmol/L [facility] Anion Gap 12 5 - 15 mmol/L [facility] Calcium 9.4 8.5 - 10.5 mg/dL [facility] Est Glomerular Filtration Rate >60 >=60 [facility] Comment: This estimated GFR (eGFR) [...] the following links into your internet browser. 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
--- OUTSIDE RECORDS SUMMARY | 2024-02-04 00:43 | XMS_ITS | Encounter Summary ---
Author Organization [facility] [place] [address] Care Team Providers Care Diesel Engine Assembler Name Role Phone Pita Narayanan MD Primary Care Provider Reason for Visit * Reason Comments Medication Refill Encounter Details Date Type Department Care Team ([facility] st Contact Info) Description 12/15/2013 Refill [facility] at [facility] [address] [place] [id number] Pita Narayanan MD [facility] [place] [address] Diabetes mellitus type 2, uncomplicated (Primary Dx); [...] maintenance Routine general medical examination at a [facility] care facility Gastroesophageal reflux disease Esophageal reflux documented in this encounter Care Teams Diesel Engine Assembler Relationship Specialty Start Date End Date Pita Narayanan MD [facility] DR [facility] [place] [address] PCP - General 12/01/12 04/21/15 documented as of this encounter
--- OUTSIDE RECORDS SUMMARY | 2024-02-04 00:43 | XMS_ITS | Encounter Summary ---
Author Organization [facility] [address] Care Team Providers Care Bankruptcy Attorney Name Role Phone Dav Carlos MD Primary Care Provider [phone] Encounter Details Date Type Department Care Team (Late st Contact Info) Description 12/18/2011 4:02 PM EDT Anesthesia [place] [address] Reji Banuelos MD [facility] [place] [address] Julio Billy MD [facility] [place] [address] Anesthesia Record Procedure Summary Procedure Name Responsible [...] Makenzie Sosa RN 12/19/11 2104 by Kerri Varghese RN Urethral Catheter 12/18/11; 1634; indwelling double [...] Date of Encounter: 12/19/11 Place of Service: [facility] Responsible Attending: Syed Dempsey MD House Staff [...] the past, but was intubated asleep at [facility] for a cholecystectomy (she does not recall [...] on filedocumented in this encounter Care Teams Bankruptcy Attorney Relationship Specialty Start Date End Date Dav Carlos MD PCP - General 10/01/10 11/30/12 documented as of this encounter
--- OUTSIDE RECORDS SUMMARY | 2024-02-04 00:43 | XMS_ITS | Encounter Summary ---
Author Organization [facility] [address] Care Team Providers Care Ensemble Member Name Role Phone Galina Hook MD Primary Care Provider [phone] Reason for Visit * Reason Comments Care Encounter Details Date Type Department Care Team (Latest Contact Info) Description 02/01/2012 4:30 PM EDT Visit Obstetrics [place] [address] Amina Mock MD [facility] [address] OBST[place] [address] Lisette Elise MD [facility] [place] [address] Diabetes mellitus; Hypertension; CADY (obstructive sleep apnea); [...] encounter Miscellaneous Notes * Miscellaneous - Bradley, Smash Piecer - 02/04/2012 1:23 PM EDT documented in [...] status documented in this encounter Care Teams Ensemble Member Relationship Specialty Start Date End Date Galina Hook MD PCP - General 10/01/10 11/30/12 documented as of this encounter
--- OUTSIDE RECORDS SUMMARY | 2024-02-04 00:43 | XMS_ITS | Encounter Summary ---
Author Organization [facility] Address [facility] [place] [address] Care Team Providers Care Drum Tender Name Role Phone Pita Narayanan MD Primary Care Provider [phone] Reason for Referral * Consultation (Urgent) - Specialty Diagnoses / Procedures Referred By Contac t Referred To Contact Primary Care Diagnoses Severe episode of recurrent major depressive disorder, without psychotic features Pita Narayanan MD [facility] [place] [address] [facility] [address] [place] [address] Referral ID Status Reason Start Date Expiration Date Visits Requested Visits Authorized [id number] Specialty Service Requested 04/29/2016 04/29/2017 1 1 Reason for Visit * Reason Comments Establish Care Encounter Details Date Type Department Care Team (Late st Contact Info) Description 04/28/2016 3:30 PM EST Office Visit Internal Medicine at [facility] [address] [place] [address] [place] [address] Severe episode of recurrent major depressive disorder, without psychotic features; Type 2 diabetes mellitus without complication, unspecified supervisor intermediates insulin use status; Essential hypertension; Gastroesophageal reflux [...] bupropion and continueon the higher dose venlafaxine [facility] Psychiatry emergency services: [phone] [facility] Emergency room: [phone] WILL[facility] PENALOZA environmental science instructor after 5 pm and on weekends; through [facility] Laundry Tech [phone] [facility] 24 hr emergency line ([place], [place]) [facility] [place] intake [phone]; [facility] intake [phone] The preferred route for ongoing care is with [facility]ma[facility] Unger since this is closer We will arrange referrals for our consulting psychiatrist here at [facility] and with one of the crisis [...] to get more records including labs from [place] We will contact you about setting up depo shot for week of May 05 or Set up follow up visit with me documented in this encounter Progress Notes * Pita Narayanan MD - 04/28/2016 3:30 PM EST Here to re-est care I was running ~45 min late I met her once in 2012. Then lost to f/u here Went to [place] for continued primary care. We have one scanned office note from a year ago Difficulties with access to continue to see her provider there, Gwen PEDRO. Pts work schedule somewhat of a factor. Transferred back here. Lives in [facility] Acute issues needed addressing today incl worsening depression with SI. DM not well controlled Last visit at [place] was 3 months ago for depo Due [...] a therapist. Current living situation is in [facility] with her 2 daughters. They live in [...] here in crisis services Psych here at [facility] [address] for med consult Better for supervisor intermediates would be Ismael Unger Is aware of [...] mothre Discussed psych emergency resources here, WILLIS environmental science instructor, and Ismael Unger 24 hr hotline. Given [...] Wt was 240 lbs Apr 2015 at [facility] visit Alert, affect appropriate to situation, calm. Speech fluent. NAD Erythema and fine scale around eyelids that looks c/w eyelid dermatitis (did not review further). Anicteric sclerae Mouth: chuloonawick teeth, OP moist, no lesions Neck supple [...] bupropion and continueon the higher dose venlafaxine [facility] Psychiatry emergency services: [phone] [facility] Emergency room: [phone] WILLIS PENALOZA environmental science instructor after 5 pm and on weekends; through [facility] Laundry Tech [phone] [facility] 24 hr emergency line ([place], [place]) [facility] intake [phone]; [facility] [place] intake [phone] The preferred route for ongoing care is with Ismael Unger since this is closer We will arrange referrals for our consulting psychiatrist here at [facility] [address] and with one of the crisis [...] daily. [place]. Went with this for now and will see if covered Menstrual disorder - medroxyPROGESTERone (DEPO-PROVERA) 150 mg/mL Suspension; Inject 1 mL into the muscle Q 3 Months. Next is due between May 05 and 2016. Previously administered at [facility] Need to get set up. I [...] to get more records including labs from [place] We will contact you about setting up [...] Type 2 diabetes mellitus without complication, unspecified supervisor intermediates insulin use status documented in this encounter Results * (ABNORMAL) BMP w/fasting Glucose (05/11/2016 10:28 AM EST) [facility] Glucose Fasting 175(H) 65 - 99 mg/dL [facility] Comment: ?Fasting* Glucose Interpretive Criteria [...] of Diabetes Mellitus, Position Statement from the [place] [employer]. ??Diabetes Care, Volume 33, Supplement 1, Apr 2009 Blood Urea Nitrogen 15 8 - 18 mg/dL [facility] Creatinine 0.72 0.70 - 1.20 mg/dL [facility] Comment: Please note that the pediatric reference intervals supplied above were not validated at [facility]. Results from pediatric patients should be interpreted in conjunction to the patient's age, height and muscle mass. Sodium 142 135 - 145 mmol/L [facility] Potassium 4.3 3.5 - 5.0 mmol/L [facility] Comment: Please note: ??Patients with WBC >100,000 may have falsely elevated Potassium levels. ??For accurate Potassium quantification in these patients send serum separator tube (gold top) for subsequent determinations. ??Contact the Clinical Chemistry Laboratory if there are any questions. Chloride 102 98 - 107 mmol/L [facility] Carbon Dioxide 28 22 - 31 mmol/L [facility] Anion Gap 12 5 - 15 mmol/L [facility] Calcium 9.4 8.5 - 10.5 mg/dL [facility] Est Glomerular Filtration Rate >60 >=60 [facility] Comment: This estimated GFR [...] the following links into your internet browser. [email or web address] Blood specimen (specimen) 05/11/2016 10:28 AM EST 05/11/2016 1:46 PM EST Narrative Resulting Agency Comment Spec In Lab Pita Narayanan MD CHEMISTRY ORDERABLES [facility] [place] [address] * (ABNORMAL) POCT glycated hemoglobin, total (HA1C) (04/28/2016 4:24 PM EST) Hemoglobin A1C, POC 8.0(A) 4.3 - 5.6 % Blood specimen (specimen) 04/28/2016 4:24 PM EST Pita Narayanan MD POINT OF CARE TEST O RDERABLES * Urine Hold (04/28/2016 4:10 PM EST) Hold, Urine Sample in lab. [facility] Urine specimen (specimen) Urine / Unknown 04/28/2016 4:10 PM EST 04/29/2016 9:34 AM EST Pita Narayanan MD URINE ORDERABLES [facility] [place] [address] * U Albumin/Cre Ratio (04/28/2016 4:10 PM EST) Albumin / Creatinin Ratio, Urine Not Calculated 0 - 29 mcg/mg Cr [facility] Comment: Reference Ranges: <30 [...] 2, 357? 362 Albumin, Urine <3.0 mg/L [facility] Creatinine, Urine 100 mg/dL [facility] Urine specimen (specimen) 04/28/2016 4:10 PM EST 04/29/2016 11:17 AM EST Narrative Resulting Agency Comment Spec In Lab Pita Narayanan MD URINE ORDERABLES [facility] [place] [address] documented in this encounter Visit Diagnoses Diagnosis Severe episode of recurrent major depressive disorder, without psychotic features Type 2 diabetes mellitus without complication, unspecified [facility] insulin use status Essential hypertension Unspecified essential hypertension Gastroesophageal reflux disease, esophagitis presence not specified Menstrual disorder Unspecified disorder of menstruation and other abnormal bleeding from female genital tract Obstructive sleep apnea Obstructive sleep apnea (adult) (pediatric) Increased BMI Other symptoms concerning nutrition, metabolism, and development documented in this encounter Care Teams Drum Tender Relationship Specialty Start Date End Date Pita Narayanan MD [facility] [address] [facility] [facility] [place] [address] PCP - General General Internal Medicine 01/28/1604/22 documented as of this encounter
--- OUTSIDE RECORDS SUMMARY | 2024-02-04 00:43 | XMS_ITS | Encounter Summary ---
Author Organization [facility] [place] [address] Care Team Providers Care Quality Cloth Tester Name Role Phone Dav Carlos MD Primary Care Provider [phone] Reason for Visit * Reason Comments Non-stress Test Encounter Details Date Type Department Care Team (Latest Contact Info) Description 12/11/2011 11:15 AM EDT Routine Obstetrics and Gynecology at [facility] [place] [address] Alexandre Powers, RN GA: [id number] Discharge Disposition: [...] uncontrolled documented in this encounter Care Teams Quality Cloth Tester Relationship Specialty Start Date End Date Dav Carlos MD PCP - General 10/01/10 11/30/12 documented as of this encounter
--- OUTSIDE RECORDS SUMMARY | 2024-02-04 00:43 | XMS_ITS | Encounter Summary ---
Author Organization [facility] [place] [address] Care Team Providers Care Advertising Inserter Name Role Phone Dav Carlos MD Primary Care Provider [phone] Encounter Details Date Type Department Care Team (Late st Contact Info) Description 12/18/2011 1:00 PM EDT - 12/18/2011 2:59 PM [place] [phone] Pam Prasad MD [facility] [place] [address] @ DELIVERY (WRVU 16.13) Social History Tobacco [...] engorgement is relieved. Call your doctor or generator worker for: Fever more than 100.5 Heavy bleeding [...] follow up appointment. You may call the [facility] at any time for guidance or for answers to questions that come up prior to you follow up appointment. Your [facility] Provider can be reached during office hours at [facility] Follow-up Clinic AFTER OFFICE HOURS for the spark tester or generator worker fashion coordinator Provider electronic signature confirms that discharge instructions were reviewed with the patient. A copy was printed and given to the patient. * Patient Instructions* Radha Mathews MD - 12/21/2011 10:36 AM EDT Follow up appointments and recommendations: If not made at the time of discharge, please call your primary OB provider for a follow up appointment. ([phone]) Patient Discharge Instructions: For problems or concerns related to this hospitalization call: [phone] weekdays, or [phone] weekends or nights. Call your doctor if [...] and 6 yr old daughter Barbara. Where: [facility] [place] Approx time in community: Years Social Resources: Intact couple. Both employed. 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 Have [employer] insurance through he employer and [place] secondary. Have local family support. Extended family in area for support: Yes Cognitive Resources: Intact Childbirth Education: Yes/No Educational level: High School + Functional Status: Ambulatory, Independent, Without limitations. C/S recovery with limitations on lifting/driving x 2 weeks. Complications requiring follow-up: Financial Resources: Adequate. No concerns expressed Health Insurance Coverage: [facility] Connexient plus [place] Medicaid. Baby will be placed on Dr Kamara Manager Land Chosen: Dr Dav Carlos; [facility] Baby's Name: Baby Girl Radha Anticipated [...] Patient declined [facility] ([facility]) 4th Trimester New mom support/[facility] [place] Healthy Babies: Referral to [facility] [place] [facility]: [facility] [place] DME ordered : None Breast Pump: N/A Other: Have infant car seat, transportation, and adequate family support. No direct referrals made at this time. . CRC: Roxanne LEE/ Keny Strong. Beeper [id number] * Amina Mock MD - 12/21/2011 6:57 [...] 20 pounds piror to this adn only [id number] with the . I encouraged her to [...] rounds. LAWRENCE GUO MD PGY1 12/19/2011 Pager #[phone] Attending post - section note ALEXANDRE ELIZABETH [...] assisted to left lateral tilt. EFM placed, MAI=983. MDs aware. To proceed with scheduled repeat [...] 1/2 mL 30 x 5/16 Syrg by [facility] [...] 05/29/2011 GCAMP Negative 05/29/2011 CHLMGENE Negative 05/29/2011 [id number] <0.18* 07/15/2011 AST 14 09/09/2011 Lab Results [...] none Provider Contact Information: DAV CARLOS MD [phone] Discharge References/Attachments: Discharge References/Attachments None Signed: Santana Mathews MD * Miscellaneous - Provider, Scanning - 12/18/2011 8:37 PM EDT * Op Note - Pam Prasad MD - 12/18/2011 7:12 PM EDT [facility] Operative Note Patient Name: Migdalia Garcia : [id number] MR#: [id number] Case Date: 12/18/2011 Surgeon: Surgeon(s) and Role: * CHELA LOPEZ MD - Resident-Manager Auto * ALEXANDRE ELIZABETH MD - *ASSISTING SURGEON [...] single area of nonhemostasis and a single [id number] was placed for hemostasis. The gutters were [...] cleared of all clots. The patient and tolerated the procedure well [...] for the patient's : Mejia Garcia Girl [[id number]] Delivery 12/18/2011 5:23 PM by Lower Segment [...] providers: Delivery Assist Delivery Nurse Resident Resident Vocational Examiner Amina Elizabeth Additional information: Forceps: Vacuum: Breech: [...] for the patient's : Mejia Garcia Girl [[id number]] Delivery 12/18/2011 5:23 PM by Lower Segment [...] Complications: Nuchal X 1 Placenta: Delivered: appearance [place] Measurements: Weight: 8 lb 2.9 oz (3710 g) Height: 20 Head circumference: 35 cm Chest circumference: Other providers: Delivery Assist Delivery Nurse Resident Resident Vocational Examiner Amina Elizabeth Additional information: Forceps: Vacuum: Breech: [...] Operative Note Patient Name: Migdalia Garcia : [id number] MR#: [id number] Case Date: 12/18/2011 Surgeon: Surgeon(s) and Role: * CHELA LOPEZ MD - Resident-Manager Auto * ALEXANDRE ELIZABETH MD - *ASSISTING SURGEON [...] * POCT GLUCOSE (12/20/2011 6:55 PM EDT) Glucose, POC 115 60 - 199 mg/dL [facility] Comment: Supplemental ranges: <110 mg/dL before meals <200 mg/dL all other times of the day Blood specimen (specimen) 12/20/2011 6:55 PM EDT 12/20/2011 6:55 PM EDT Pam Prasad MD POINT OF CARE TEST O TARUN [facility] * POCT GLUCOSE (12/20/2011 2:00 PM EDT) Glucose, POC 106 60 - 199 mg/dL [facility] Comment: Supplemental ranges: <110 mg/dL before meals <200 mg/dL all other times of the day Blood specimen (specimen) 12/20/2011 2:00 PM EDT 12/20/2011 2:00 PM EDT Pam Prasad MD POINT OF CARE TEST O RDERABLES Performing Organization Address [facility] Co de Phone Number [facility] * POCT GLUCOSE (12/20/2011 10:42 AM EDT) Glucose, POC 139 60 - 199 mg/dL [facility] Comment: Supplemental ranges: <110 mg/dL before meals <200 mg/dL all other times of the day Blood specimen (specimen) 12/20/2011 10:42 AM EDT 12/20/2011 10:42 AM EDT Pam Prasad MD POINT OF CARE TEST O TARUN Performing Organization Address [facility] Co de Phone Number [facility] * POCT GLUCOSE (12/19/2011 7:34 PM EDT) Glucose, POC 120 60 - 199 mg/dL [facility] Comment: Supplemental ranges: <110 mg/dL before meals <200 mg/dL all other times of the day Blood specimen (specimen) 12/19/2011 7:34 PM EDT 12/19/2011 7:34 PM EDT Pam Prasad MD POINT OF CARE TEST O TARUN Performing Organization Address [facility] de Phone Number [facility] * POCT GLUCOSE (12/19/2011 1:47 PM EDT) Glucose, POC 102 60 - 199 mg/dL [facility] Comment: Supplemental ranges: <110 mg/dL before meals <200 mg/dL all other times of the day Blood specimen (specimen) 12/19/2011 1:47 PM EDT 12/19/2011 1:47 PM EDT Pam Prasad MD POINT OF CARE TEST O RDERAPEARL Performing Organization Address [facility] Co de Phone Number [facility] * POCT GLUCOSE (12/19/2011 10:01 AM EDT) Glucose, POC 114 60 - 199 mg/dL [facility] Comment: Supplemental ranges: <110 mg/dL before meals <200 mg/dL all other times of the day Blood specimen (specimen) 12/19/2011 10:01 AM EDT 12/19/2011 10:01 AM EDT Pam Prasad MD POINT OF CARE TEST O RDERABLES Performing Organization Address [facility] Co de Phone Number [facility] * POCT GLUCOSE (12/19/2011 7:56 AM EDT) Glucose, POC 88 60 - 199 mg/dL [facility] Comment: Supplemental ranges: <110 mg/dL before meals <200 mg/dL all other times of the day Blood specimen (specimen) 12/19/2011 7:56 AM EDT 12/19/2011 7:56 AM EDT Pam Prasad MD POINT OF CARE TEST O RDERAPAERL Performing Organization Address [facility] de Phone Number [facility] LILLYEN[facility] * (ABNORMAL) DIFFERENTIAL, AUTOMATED (12/19/2011 6:10 AM EDT) Neutrophil % 72.0(H) 34.0 - 71.0 % [facility] Neutrophil Absolute 7.98(H) 1.50 - 6.30 x10(3)/mc L [facility] Lymph % 20.8 19.0 - 53.0 % [facility] Lymphocytes Abs 2.3 1.0 - 3.6 x10(3)/mc L [facility] Monocyte % 6.7 4.0 - 13.0 % [facility] Monocyte Abs 0.7 0.2 - 1.0 x10(3)/mc L [facility]ILL[facility]NI[facility] Eos % 0.2 0.0 - 7.0 % [facility] Eosinophils Abs 0.0 0.0 - 0.5 x10(3)/mc L [facility] Basophil % 0.1 0.0 - 2.0 % [facility] M[facility]ENNI[facility] Baso Absolute 0.0 0.0 - 0.2 x10(3)/mc L CERNER [...] differential will be performed. Immature Gran Absolute 0.02 0.00 - 0.05 x10(3)/mc L [facility] Blood specimen (specimen) 12/19/2011 6:10 AM EDT 12/19/2011 6:28 AM EDT Pam Prasad MD HEMATOLOGY ORDERABLE S [facility] * (ABNORMAL) Creatinine, serum (12/19/2011 6:10 AM EDT) Creatinine 0.45(L) 0.70 - 1.20 mg/dL [facility] Comment: Please note that the pediatric reference intervals supplied above were not validated at [facility]. Results from pediatric patients should be interpreted in conjunction to the patient's age, height and muscle mass. Est Glomerular Filtration Rate >60 >=60 [facility]ER MILLENNI[facility] Comment: The National [...] Prasad MD CHEMISTRY ORDERABLES Performing Organization Address City/[facility] Co de Phone Number [facility] * Aspartate Aminotransferase (12/19/2011 6:10 AM EDT) Aspartate Aminotransferase 28 0 - 30 unit/L [facility] Blood specimen (specimen) 12/19/2011 6:10 AM EDT 12/19/2011 6:28 AM EDT Narrative Resulting Agency Comment Spec In Lab Pam Prasad MD CHEMISTRY ORDERABLES Performing Organization Address City/[facility] Co de Phone Number [facility] * (ABNORMAL) CBC (with Diff) (12/19/2011 6:10 AM EDT) White Blood Cell 11.1(H) 4.0 - 10.0 x10(3)/mc L [facility]ER MILLENNI[facility] Red Blood Cell 4.16 3.93 - 5.22 x10(6)/mc L [facility]ILL[facility]NI[facility] Hemoglobin 13.0 11.2 - 15.7 gm/dL [facility] MILL[facility]NI[facility] Hematocrit 37.6 34.0 - 45.0 % CERNER MILLENNIUM Mean Cell Volume 90.4 79.0 - 94.0 fL CERNER MILLENNIUM Mean Cell Hemoglobin 31.3 26.6 - 32.2 pg [facility]ERNER MILLENNIUM Mean Cell Hemoglobin Concentration 34.6 32.0 - 36.5 gm/dL [facility]ERN[facility] MILLENNIUM Platelet 162 145 - 370 x10(3)/mc L [facility]ER MILLENNI[facility] RDW Standard Deviation 43.0 35.0 - 46.0 fL [facility]ERNER MILLENNIUM RDW coefficient of variation 13.3 10.9 - 14.4 % CERNER MILLENNIUM Mean Platelet Volume 9.7 9.0 - 12.0 fL [facility] Blood specimen (specimen) 12/19/2011 6:10 AM EDT 12/19/2011 6:28 AM EDT Narrative Resulting Agency Comment Spec In Lab Pam Prasad MD HEMATOLOGY ORDERABLE S ANA GILMAN * POCT GLUCOSE (12/18/2011 9:11 PM EDT) Glucose, POC 75 60 - 199 mg/dL [facility] Comment: Supplemental ranges: <110 mg/dL before meals <200 mg/dL all other times of the day Blood specimen (specimen) 12/18/2011 9:11 PM EDT 12/18/2011 9:11 PM EDT Pam Prasad MD POINT OF CARE TEST O RDERABLES [facility] * Specimen to Pathology (NON-OR) (12/18/2011 7:07 PM EDT) AP Specimen 12/18/2011 7:07 PM EDT 12/18/2011 7:07 PM EDT Narrative [facility] MAXXENNIUM - 12/18/2011 7:07 PM EDT Specimen requisition ordered. ??Separate Pathology report to follow Pam Prasad MD PATHOLOGY/CYTOLOGY O TARUN Performing Organization Address [facility] de Phone Number [facility] * POCT GLUCOSE (12/18/2011 2:34 PM EDT) Glucose, POC 130 60 - 199 mg/dL [facility] Comment: Supplemental ranges: <110 mg/dL before meals <200 mg/dL all other times of the day Blood specimen (specimen) 12/18/2011 2:34 PM EDT 12/18/2011 2:34 PM EDT Pam Prasad MD POINT OF CARE TEST O TARUN Performing Organization Address [facility] de Phone Number [facility] * POCT GLUCOSE (12/18/2011 1:48 PM EDT) Glucose, POC 61 60 - 199 mg/dL [facility] Comment: Supplemental ranges: <110 mg/dL before meals <200 mg/dL all other times of the day Blood specimen (specimen) 12/18/2011 1:48 PM EDT 12/18/2011 1:48 PM EDT Pam Prasad MD POINT OF CARE TEST O TARUN Performing Organization Address [facility] Phone Number [facility] * AB COMMENT (12/18/2011 12:25 PM EDT) Ab Information INTERPRETATION : The patient's specimen shows the presence of the antibody anti-D. ??The patient is negative for the RhD antigen. ??The patient recently received RhIg; the reactivity in the specimen almost certainly represents passive anti-D. ??Unit selection is per routine. ZMS, 12/25/2011 [facility] Comment: SALAZAR MOROE, Pathologist Verified:12/25/11 Blood specimen (specimen) 12/18/2011 12:25 PM EDT 12/18/2011 12:25 PM EDT Narrative Resulting Agency Comment Spec In Lab Pam Prasad MD BLOOD BANK LAB ORDER MARIJA Performing Organization Address City/[facility]/ZIP Co de Phone Number ANA GILMAN * ANTIBODY IDENTIFICATION (12/18/2011 12:25 PM EDT) Pathologist [facility] Ab Identified Anti-D passive [facility] Blood specimen (specimen) 12/18/2011 12:25 PM EDT 12/18/2011 12:25 PM EDT Narrative Resulting Agency Comment Spec In Lab Pam Prasad MD BLOOD BANK LAB ORDER MARIJA Performing Organization Address City/[facility] Co de Phone Number ANA GILMAN * SELECTED CELL SCREEN (12/18/2011 12:25 PM EDT) Pathologist [facility] Ab Screen Interp Anti-D detected, most likely passive antibody related to Rh Immune Globulin administrated on 10/13/2011_. ??No alloantibodies detected. ANA GILMAN Blood specimen (specimen) 12/18/2011 12:25 PM EDT 12/18/2011 12:25 PM EDT Narrative Resulting Agency Comment Spec In Lab Pam Prasad MD BLOOD BANK LAB ORDER MARIJA Performing Organization Address [facility] Co de Phone Number ANA GILMAN * POCT urine dipstick (12/18/2011 11:36 AM EDT) [facility] POC Sp [place] 1.002 - 1.030 POC pH, UA 5.0 [...] 10:44 AM EDT) Surgical Pathology Report ? [facility] ? Provider: ?? PAM PRASAD ?Pt. Name: ?? MIGDALIA GARCIA ? Acc #: ?[id number] ?Pt. ? Col Date: ?? 12/18/2011 ? [...] Description: ?? Discoid hamm placenta. ?Membranes: ? Pollock, clear. ??Marginal insertion. ?Cord: ?62.0 x 1.5 [...] Specimen Submitted: ? A - Placenta ? [facility] ? Provider: ?? PAM PRASAD ?Pt. Name: ?? MIGDALIA GARCIA ? Acc #: ?[id number] ?Pt. ? Col Date: ?? 12/18/2011 ? /Sex: ?1980,(31 ? years),Female ? Rec Date: ?? 12/22/2011 ?LOC: ?BP ? SURGICAL PATHOLOGY ? Clinical History/Diagnosis: ? 31 yo S/P repeat section with preeclampsia [facility] CLUBENNIUM 12/18/2011 10:4 4 AM EDT Pam Prasad MD PATHOLOGY/CYTOLOGY O RDERABLES Performing Organization Address [facility] de Phone Number [facility] * ANTIBODY IDENTIFICATION (12/18/2011 10:30 AM EDT) Pathologist [facility] Ab Identified Anti-D passive [facility] Blood specimen (specimen) 12/18/2011 10:30 AM EDT 12/18/2011 11:04 AM EDT Narrative Resulting Agency Comment Spec In Lab Pam Prasad MD BLOOD BANK LAB ORDER MARIJA Performing Organization Address [facility] de Phone Number [facility] * DIFFERENTIAL, AUTOMATED (12/18/2011 10:30 AM EDT) Neutrophil % 65.5 34.0 - 71.0 % [facility] Neutrophil Absolute 5.73 1.50 - 6.30 x10(3)/mcL [facility] Lymph % 27.3 19.0 - 53.0 % [facility]ER MILL[facility]NI[facility] Lymphocytes Abs 2.4 1.0 - 3.6 x10(3)/mcL [facility] MILL[facility]NI[facility] Monocyte % 6.4 4.0 - 13.0 % [facility]ERNER MILLENNIUM Monocyte Abs 0.6 0.2 - 1.0 x10(3)/mcL [facility]ER [facility]ILL[facility]NI[facility] Eos % 0.5 0.0 - 7.0 % [facility]ER MILLENNIUM Eosinophils Abs 0.0 0.0 - 0.5 x10(3)/mcL [facility]ER MILL[facility]NIUM Basophil % 0.1 0.0 - 2.0 % [facility] MILL[facility]NI[facility] Baso Absolute 0.0 0.0 - 0.2 x10(3)/mcL [facility]ER MILL[facility]NI[facility] Immature Gran % 0.20 0.00 - 0.66 % [facility]ER MILLENNI[facility] Comment: Immature granulocytes(IG's)percentage and absolute count will include metamyelocytes, myelocytes, and promyelocytes. Blood smears from CBCs yielding IG's will be scanned manually for concordance. If this scan disagrees with the automated IG or if promyelocytes are noted, a manual differential will be performed. Immature Gran Absolute 0.02 0.00 - 0.05 x10(3)/mcL CERNER MILLENNIUM [...] BANK LAB ORDER MARIJA Performing Organization Address [facility] de Phone Number [facility] L[facility] * Aspartate Aminotransferase (12/18/2011 10:30 AM EDT) Aspartate Aminotransferase 21 0 - 30 unit/L [facility] MILLENNIUM Blood specimen (specimen) 12/18/2011 10:30 AM EDT 12/18/2011 10:46 AM EDT Narrative Resulting Agency Comment Spec In Lab Pam Prasad MD CHEMISTRY ORDERABLES Performing Organization Address [facility] de Phone Number [facility]ER [facility] * CBC (with Diff) (12/18/2011 10:30 AM EDT) White Blood Cell 8.8 4.0 - 10.0 x10(3)/mcL [facility] MILL[facility]NI[facility] Red Blood Cell 4.42 3.93 - 5.22 x10(6)/mcL [facility] MILL[facility] Hemoglobin 13.9 11.2 - 15.7 gm/dL [facility]ER MILLENNI[facility] Hematocrit 39.6 34.0 - 45.0 % CERNER MILLENNIUM Mean Cell Volume 89.6 79.0 - 94.0 fL [facility]ER MILLENNIUM Mean Cell Hemoglobin 31.4 26.6 - 32.2 pg [facility]ER MILLENNIUM Mean Cell Hemoglobin Concentration 35.1 32.0 - 36.5 gm/dL [facility]ER MILLENNI[facility] Platelet 161 145 - 370 x10(3)/mcL CERNER MILLENNIUM RDW Standard Deviation 43.2 35.0 - 46.0 fL CERNER MILLENNIUM RDW coefficient of variation 13.4 10.9 - 14.4 % CERNER MILLENNIUM Mean Platelet Volume 10.2 9.0 - 12.0 fL [facility]ILLENNIUM [...] Kerri Best RN)0900 (Given - Provider: Oscar Rascon, BEREKET)2100 (Given - Provider: Kerri eBst RN) 09 (Given - Provider: Mayelin Oh, BEREKET)2110 (Given - Provider: Makenzie Tobias, BEREKET) 0900 (Given - Provider: Mayelin Oh, BEREKET) NIFEdipine (ADALAT CC) CR tablet 30 mg 30 mg, Oral, 2 TIMES DAILY, First dose on 12/20/11 at 1015, Until Discontinued, Routine 1015 (Given - Provider: Mayelin Oh, BEREKET)2110 (Given [...] Vegas RN) 0835 (Given - Provider: Mayelin Oh RN)1406 (Given - Provider: Lakesha Worley, BEREKET)2111 (Given - Provider: Makenzie Tobias RN) 0740 [...] Routine documented in this encounter Care Teams Advertising Inserter Relationship Specialty Start Date End Date Dav Carlos MD PCP - General 10/01/10 11/30/12 documented as of this encounter
--- OUTSIDE RECORDS SUMMARY | 2024-02-04 00:43 | XMS_ITS | Encounter Summary ---
Author Organization [facility] [place] [address] Care Team Providers Care Lubricating Machine Tender Name Role Phone Pita Narayanan MD Primary Care Provider Reason for Referral * Consultation (Routine) - Specialty Diagnoses / Procedures Referred By Jay flores Referred To Contact Sleep Center Diagnoses Obstructive sleep apnea Pita Narayanan MD [facility] [place] [address] [facility] [address] [place] [address] Referral ID Status Reason Start Date Expiration Date Visits Requested Visits Authorized [id number] Specialty Service Requested 05/27/2016 05/27/2017 1 1 Reason for Visit * Reason Comments Follow-up discuss hip and slee ping at some point, currently more concerned about depression and sugars Encounter Details Date Type Department Care Team (Late st Contact Info) Description 05/27/2016 2:00 PM EST Office Visit Internal Medicine at [facility] [address] [place] [address] Pita Narayanan MD [facility] [place] [address] Major depressive disorder, recurrent episode, [...] Will mail the lab slip. Get at [place] in the week before the visit Fasting [...] not make it Has to reschedule The utilities ground worker called her No SI reported today [...] Will mail the lab slip. Get at [place] in the week before the visit. FLP [...] Hepatitis B Surface Antibody, Quantitative <3.5 IU/L [facility] Comment: HepB Surface Ab Quant: Unvaccinated: < 8.5 IU/L Vaccinated: > 11.5 IU/L Hepatitis B Surface Antibody Negative [facility] Comment: Patient is presumed to be not vaccinated or immune to HBV infection. Expected Results: Vaccinated: Positive Unvaccinated: Negative Blood specimen (specimen) 03/05/2017 8:17 AM EST 03/05/2017 9:56 AM EST Narrative Resulting Agency Comment Spec In Lab Pita Narayanan MD CHEMISTRY ORDERABLES Performing Organization Address City/[facility]/ZIP Co de Phone Number [facility] [place] [address] * (ABNORMAL) Lipid Panel (03/05/2017 8:17 AM EST) Cholesterol, Total 166 <=239 mg/dL [facility] Triglyceride 309(H) <=199 mg/dL [facility] HDL Cholesterol 32(L) >=40 mg/dL [facility] LDL Cholesterol 72 <=190 mg/dL [facility] Cholesterol/HDL Ratio 5.2 ratio [facility] Lipid Interpretation See Note [facility] Comment: Lipid management should be guided by a patient? s ASCVD risk, goals and preferences. ACC/AHA Guidelines recommend high intensity statin if clinical ASCVD or LDL greater than or equal to 190 mg/dL. http://Hokey Pokey.com/AYM-FRD-Fufkamctl Adults aged 40-75 with LDL 70-189 mg/dL should have their 10 year ASCVD risk estimated with the ACC/AHA ASCVD risk body shop estimator http://tools.acc.org/VCMOT-Xsaj-Zdfbelusz/ Statin should be discussed if risk greater [...] [facility]/ZIP Co de Phone Number [facility] [place] [address] documented in this encounter Visit Diagnoses Diagnosis [...] facility documented in this encounter Care Teams Lubricating Machine Tender Relationship Specialty Start Date End Date Pita Narayanan MD [facility] [address] [place] [address] PCP - General General Internal Medicine 01/28/1604/22 documented as of this encounter
--- OUTSIDE RECORDS SUMMARY | 2024-02-04 00:43 | XMS_ITS | Encounter Summary ---
Author Organization [facility] Veronica [facility] [place] [address] Care Team Providers Care Dimensional Integration Engineer Name Role Phone Pita Narayanan MD Primary Care Provider [phone] Encounter Details Date Type Department Care Team (Late st Contact Info) Description 04/29/2016 Telephone Internal Medicine at [place] [address] [place] [address] Pita Narayanan MD [facility] [place] [address] Social History Tobacco Use Types Packs/Day Years [...] on filedocumented in this encounter Care Teams Dimensional Integration Engineer Relationship Specialty Start Date End Date Pita Narayanan MD [facility] [place] [id number] PCP - General General Internal Medicine 01/28/1604/22 documented as of this encounter
--- OUTSIDE RECORDS SUMMARY | 2024-02-04 00:43 | XMS_ITS | Encounter Summary ---
Author Organization [facility] [place] [address] Care Team Providers Care Admissions Assistant Name Role Phone Dav Carlos MD Primary Care Provider [phone] Reason for Visit * Reason Comments Non-stress Test Type II diabetes Encounter Details Date Type Department Care Team (Latest Contact Info) Description 12/15/2011 9:00 AM EDT Routine Obstetrics and Gynecology at [facility] [place] [id number] Alexandre Powers, RN GA: [id number] Discharge Disposition: [...] uncontrolled documented in this encounter Care Teams Admissions Assistant Relationship Specialty Start Date End Date Dav Carlos MD PCP - General 10/01/10 11/30/12 documented as of this encounter
--- OUTSIDE RECORDS SUMMARY | 2024-02-04 00:43 | XMS_ITS | Encounter Summary ---
Author Organization [facility] [place] [address] Care Team Providers Care Abrasives Sales Representative Name Role Phone Dav Carlos MD Primary Care Provider [phone] Encounter Details Date Type Department Care Team (Latest Contact Info) Description 12/18/2011 9:30 AM EDT Routine Obstetrics [place] [address] CLINIC, Lisette Aviles MD [facility] OBSTETRICS [place] [address] GA: [id number] Discharge Disposition: Home Social History [...] care documented in this encounter Care Teams Abrasives Sales Representative Relationship Specialty Start Date End Date Dav Carlos MD PCP - General 10/01/10 11/30/12 documented as of this encounter
--- OUTSIDE RECORDS SUMMARY | 2024-02-04 00:43 | XMS_ITS | Encounter Summary ---
Author Organization [facility] [place] [address] Care Team Providers Care Belly Roller Name Role Phone Pita Narayanan MD Primary Care Provider [phone] Encounter Details Date Type Department Care Team (Late st Contact Info) Description 06/30/2016 Telephone Internal Medicine at [facility] [address] [place] [address] Pita Narayanan MD [facility] [place] [address] Social History Tobacco Use Types Packs/Day Years [...] on filedocumented in this encounter Care Teams Belly Roller Relationship Specialty Start Date End Date Pita Narayanan MD [facility] DR PATRICIO DOWNEY [facility] [place] [address] PCP - General General Internal Medicine 01/28/1604/22 documented as of this encounter
--- OUTSIDE RECORDS SUMMARY | 2024-02-04 00:43 | XMS_ITS | Encounter Summary ---
Author Organization [facility] [place] [address] Care Team Providers Care Professor Of Psychiatry Name Role Phone Dav Carlos MD Primary Care Provider [phone] Encounter Details Date Type Department Care Team (Latest Contact Info) Description 12/18/2011 9:40 AM EDT - 12/21/2011 11:53 AM EDT [place] [address] Amina Mock MD [facility] [address] [place] [address] Pam Prasad MD [facility] [address] OBSTETRICS & [place] [address] Diabetes mellitus; Supervision of high-risk Discharge Disposition: [...] engorgement is relieved. Call your doctor or crime scene photographer for: Fever more than 100.5 Heavy bleeding [...] follow up appointment. You may call the [facility] at any time for guidance or for answers to questions that come up prior to you follow up appointment. Your [facility] Provider can be reached during office hours at [facility] Follow-up Clinic AFTER OFFICE HOURS for the mobile sales technician or crime scene photographer geographic information systems engineer Provider electronic signature confirms that discharge instructions were reviewed with the patient. A copy was printed and given to the patient. * Patient Instructions* Radha Mathews MD - 12/21/2011 10:36 AM EDT Follow up appointments and recommendations: If not made at the time of discharge, please call your primary OB provider for a follow up appointment. ([phone]) Patient Discharge Instructions: For problems or concerns related to this hospitalization call: [phone] weekdays, or [phone] weekends or nights. Call your doctor if [...] couple. Both employed. 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 Have [employer] Blue insurance through he employer and [place] secondary. Have local family support. Extended family in area for support: Yes Cognitive Resources: Intact Childbirth Education: Yes/No Educational level: High School + Functional Status: Ambulatory, Independent, Without limitations. C/S recovery with limitations on lifting/driving x 2 weeks. Complications requiring follow-up: Financial Resources: Adequate. No concerns expressed Health Insurance Coverage: [facility] [employer] Insurance plus [place] Medicaid. Baby will be placed on Dr Kamara Special Education Aide Chosen: Dr Dav Carlos; [facility] Baby's Name: Baby Sindy Garcia Anticipated Continuing Care Needs: Physical: Recovery from . Initiation of . Emotional: Adjustment to period Psychological: Known hx of anxiety/depression. At risk for PPD. Referred to social media analyst for assessment and support while inpatient. Educational: Parenting Continuing Care Plan Development: At home resources/Discharge supports suggested. Printed materials and suggested community resourcesprovided to patient: Visiting Nurse visits: Offered services of VNA post discharge. Patient declined [facility] ([facility]) 4th Trimester New mom support/[facility] In [facility] Bab[facility]: Referral to [facility]: [facility] [place] DME ordered : None Breast Pump: N/A Other: Have infant car seat, transportation, and adequate family support. No direct referrals made at this time. . CRC: Roxanne LEE/ Keny Strong. Beeper [id number] * Amina Mock MD - 12/21/2011 6:57 [...] nausea and vomiting resolved with zofran. Rh- (infant is Rh-)/ rubella non-immune Patient [...] rounds. LAWRENCE GUO MD PGY1 12/19/2011 Pager #[phone] Attending post - section note ALEXANDRE ELIZABETH [...] assisted to left lateral tilt. EFM placed, BFL=661. MDs aware. To proceed with scheduled repeat [...] mL 30 x 5/16 Syrg by [facility].(Non-Drug; Combo Route) route. Taking [...] 05/29/2011 GCAMP Negative 05/29/2011 CHLMGENE Negative 05/29/2011 [id number] <0.18* 07/15/2011 AST 14 09/09/2011 Lab Results [...] of group B Streptococcus V02.51A Care Provider: [facility] Admission History (per admit note) Migdalia Garcia [...] was pumping for her infant in the N and will be followed [...] none Provider Contact Information: DAV CARLOS MD [phone] Discharge References/Attachments: Discharge References/Attachments None Signed: Santana Mathews MD * Miscellaneous - Provider, Scanning - 12/18/2011 8:37 PM EDT * Op Note - Pam Prasad MD - 12/18/2011 7:12 PM EDT [facility] Operative Note Patient Name: Migdalia Garcia : [id number] MR#: [id number] Case Date: 12/18/2011 Surgeon: Surgeon(s) and Role: * CHELA LOPEZ MD - Resident-Rod Greaser * ALEXANDRE ELIZABETH MD - *ASSISTING SURGEON [...] single area of nonhemostasis and a single ikowtm-ox-opzxa was placed for hemostasis. The gutters were [...] for the patient's : Mejia Garcia Girl [[id number]] Delivery 12/18/2011 5:23 PM by Lower Segment [...] Complications: Nuchal X 1 Placenta: Delivered: appearance [place] Measurements: Weight: 8 lb 2.9 oz (3710 g) Height: 20 Head circumference: 35 cm Chest circumference: Other providers: Delivery Assist Delivery Nurse Resident Resident Merchandise Shopper Amina Elizabeth Additional information: Forceps: Vacuum: Breech: [...] for the patient's : Mejia Garcia Girl [[id number]] Delivery 12/18/2011 5:23 PM by Lower Segment [...] providers: Delivery Assist Delivery Nurse Resident Resident Merchandise Shopper Amina Elizabeth Additional information: Forceps: Vacuum: Breech: [...] Operative Note Patient Name: Migdalia Garcia : [id number] MR#: [id number] Case Date: 12/18/2011 Surgeon: Surgeon(s) and Role: * CHELA LOPEZ MD - Resident-Rod Greaser * ALEXANDRE ELIZABETH MD - *ASSISTING SURGEON [...] Glucose, POC 115 60 - 199 mg/dL [facility] Comment: Supplemental ranges: <110 mg/dL before meals <200 mg/dL all other times of the day Blood specimen (specimen) 12/20/2011 6:55 PM EDT 12/20/2011 6:55 PM EDT Pam Prasad MD POINT OF CARE TEST O RDERABLES [facility] * POCT GLUCOSE (12/20/2011 2:00 PM EDT) Glucose, POC 106 60 - 199 mg/dL [facility] Comment: Supplemental ranges: <110 mg/dL before meals <200 mg/dL all other times of the day Blood specimen (specimen) 12/20/2011 2:00 PM EDT 12/20/2011 2:00 PM EDT Pam Prasad MD POINT OF CARE TEST O RDERABLES Performing Organization Address [facility] de Phone Number [facility] * POCT GLUCOSE (12/20/2011 10:42 AM EDT) Glucose, POC 139 60 - 199 mg/dL [facility] Comment: Supplemental ranges: <110 mg/dL before meals <200 mg/dL all other times of the day Blood specimen (specimen) 12/20/2011 10:42 AM EDT 12/20/2011 10:42 AM EDT Pam Prasad MD POINT OF CARE TEST O RDERAPEARL Performing Organization Address [facility] de Phone Number [facility] * POCT GLUCOSE (12/19/2011 7:34 PM EDT) Glucose, POC 120 60 - 199 mg/dL [facility] Comment: Supplemental ranges: <110 mg/dL before meals <200 mg/dL all other times of the day Blood specimen (specimen) 12/19/2011 7:34 PM EDT 12/19/2011 7:34 PM EDT Pam Prasad MD POINT OF CARE TEST O TARUN Performing Organization Address [facility] de Phone Number [facility] * POCT GLUCOSE (12/19/2011 1:47 PM EDT) Glucose, POC 102 60 - 199 mg/dL [facility] Comment: Supplemental ranges: <110 mg/dL before meals <200 mg/dL all other times of the day Blood specimen (specimen) 12/19/2011 1:47 PM EDT 12/19/2011 1:47 PM EDT Pam Prasad MD POINT OF CARE TEST O RDERAPEARL Performing Organization Address [facility]/State/ZIP Co de Phone Number [facility] * POCT GLUCOSE (12/19/2011 10:01 AM EDT) Glucose, POC 114 60 - 199 mg/dL [facility] Comment: Supplemental ranges: <110 mg/dL before meals <200 mg/dL all other times of the day Blood specimen (specimen) 12/19/2011 10:01 AM EDT 12/19/2011 10:01 AM EDT Pam Prasad MD POINT OF CARE TEST O RDERAPEARL Performing Organization Address [facility] de Phone Number [facility] * POCT GLUCOSE (12/19/2011 7:56 AM EDT) Glucose, POC 88 60 - 199 mg/dL [facility] Comment: Supplemental ranges: <110 mg/dL before meals <200 mg/dL all other times of the day Blood specimen (specimen) 12/19/2011 7:56 AM EDT 12/19/2011 7:56 AM EDT Pam Prasad MD POINT OF CARE TEST O TARUN Performing Organization Address [facility] de Phone Number ANA GILMAN * (ABNORMAL) DIFFERENTIAL, AUTOMATED (12/19/2011 6:10 AM EDT) Neutrophil % 72.0(H) 34.0 - 71.0 % [facility] Neutrophil Absolute 7.98(H) 1.50 - 6.30 x10(3)/mc [...] intervals supplied above were not validated at [facility]. Results from pediatric patients should be interpreted [...] Prasad MD CHEMISTRY ORDERABLES Performing Organization Address [facility] de Phone Number [facility] * Aspartate Aminotransferase (12/19/2011 6:10 AM EDT) Aspartate Aminotransferase 28 0 - 30 unit/L [facility] Blood specimen (specimen) 12/19/2011 6:10 AM EDT 12/19/2011 6:28 AM EDT Narrative Resulting Agency Comment Spec In Lab Pam Prasad MD CHEMISTRY ORDERABLES Performing Organization Address [facility] Co de Phone Number [facility] * (ABNORMAL) CBC (with Diff) [...] MD HEMATOLOGY ORDERABLE S Performing Organization Address City/[facility] Co de Phone Number [facility] * POCT GLUCOSE (12/18/2011 9:11 PM EDT) Glucose, POC 75 60 - 199 mg/dL [facility] Comment: Supplemental ranges: <110 mg/dL before meals <200 mg/dL all other times of the day Blood specimen (specimen) 12/18/2011 9:11 PM EDT 12/18/2011 9:11 PM EDT Pam Prasad MD POINT OF CARE TEST O RDERABLES Performing Organization Address [facility] Co de Phone Number [facility] * Specimen to Pathology (NON-OR) (12/18/2011 7:07 PM EDT) AP Specimen 12/18/2011 7:07 PM EDT 12/18/2011 7:07 PM EDT Narrative [facility] - 12/18/2011 7:07 PM EDT Specimen requisition ordered. ??Separate Pathology report to follow Pam Prasad MD PATHOLOGY/CYTOLOGY O TARUN Performing Organization Address [facility] de Phone Number [facility] * POCT GLUCOSE (12/18/2011 2:34 PM EDT) Glucose, POC 130 60 - 199 mg/dL [facility] Comment: Supplemental ranges: <110 mg/dL before meals <200 mg/dL all other times of the day Blood specimen (specimen) 12/18/2011 2:34 PM EDT 12/18/2011 2:34 PM EDT Pam Prasad MD POINT OF CARE TEST O RDERAPEARL Performing Organization Address [facility] de Phone Number [facility] * POCT GLUCOSE (12/18/2011 1:48 PM EDT) Glucose, POC 61 60 - 199 mg/dL [facility] Comment: Supplemental ranges: <110 mg/dL before meals <200 mg/dL all other times of the day Blood specimen (specimen) 12/18/2011 1:48 PM EDT 12/18/2011 1:48 PM EDT Pam Prasad MD POINT OF CARE TEST O RDERAPEARL Performing Organization Address [facility] de Phone Number [facility] * AB COMMENT (12/18/2011 12:25 PM EDT) Ab Information INTERPRETATION : The patient's specimen shows the presence of the antibody anti-D. ??The patient is negative for the RhD antigen. ??The patient recently received RhIg; the reactivity in the specimen almost certainly represents passive anti-D. ??Unit selection is per routine. ZMS, 12/25/2011 [facility] Comment: SALAZAR MOORE, Pathologist Verified:12/25/11 Blood specimen (specimen) 12/18/2011 12:25 PM EDT 12/18/2011 12:25 PM EDT Narrative Resulting Agency Comment Spec In Lab Pam Prasad MD BLOOD BANK LAB ORDER MARIJA Performing Organization Address [facility] Co de Phone Number ANA GILMAN * ANTIBODY IDENTIFICATION (12/18/2011 12:25 PM EDT) Ab Identified Anti-D passive ANA GILMAN Blood specimen (specimen) 12/18/2011 12:25 PM EDT 12/18/2011 12:25 PM EDT Narrative Resulting Agency Comment Spec In Lab Pam Prasad MD BLOOD BANK LAB ORDER MARIJA Performing Organization Address [facility] Co de Phone Number ANA GILMAN * SELECTED CELL SCREEN (12/18/2011 12:25 PM EDT) Ab Screen Interp Anti-D detected, most likely passive antibody related to Rh Immune Globulin administrated on 10/13/2011_. ??No alloantibodies detected. ANA GILMAN Blood specimen (specimen) 12/18/2011 12:25 PM EDT 12/18/2011 12:25 PM EDT Narrative Resulting Agency Comment Spec In Lab Pam Prasad MD BLOOD BANK LAB ORDER MARIJA Performing Organization Address [facility] Co de Phone Number ANA GILMAN * POCT urine dipstick (12/18/2011 11:36 AM EDT) POC Sp Max 1.002 - 1.030 POC pH, UA 5.0 [...] 10:44 AM EDT) Surgical Pathology Report ? [facility] ? Provider: ?? PAM PRASAD ?Pt. Name: ?? MIGDALIA GARCIA ? Acc #: ?[id number] ?Pt. ? Col Date: ?? 12/18/2011 ? [...] Description: ?? Discoid hamm placenta. ?Membranes: ? [place], clear. ??Marginal insertion. ?Cord: ?62.0 x 1.5 [...] Specimen Submitted: ? A - Placenta ? [facility] ? Provider: ?? PAM PRASAD ?Pt. Name: ?? MIGDALIA GARCIA ? Acc #: ?[id number] ?Pt. ? Col Date: ?? 12/18/2011 ? /Sex: ?1980,(31 ? years),Female ? Rec Date: ?? 12/22/2011 ?LOC: ?BP ? SURGICAL PATHOLOGY ? Clinical History/Diagnosis: ? 31 yo S/P repeat section with preeclampsia [facility] 12/18/2011 10:4 4 AM EDT Pam Prasad MD PATHOLOGY/CYTOLOGY O RDERABLES Performing Organization Address [facility] Co de Phone Number [facility] * ANTIBODY IDENTIFICATION (12/18/2011 10:30 AM EDT) [facility] Ab Identified Anti-D passive [facility] Blood specimen (specimen) 12/18/2011 10:30 AM EDT 12/18/2011 11:04 AM EDT Narrative Resulting Agency Comment Spec In Lab Pam Prasad MD BLOOD BANK LAB ORDER MARIJA Performing Organization Address City/[facility] Co de Phone Number [facility] * DIFFERENTIAL, AUTOMATED (12/18/2011 10:30 AM EDT) Neutrophil % 65.5 34.0 - 71.0 % [facility] Neutrophil Absolute 5.73 1.50 - 6.30 x10(3)/mcL [facility] Lymph % 27.3 19.0 - 53.0 % [...] % 0.20 0.00 - 0.66 % [facility] Comment: Immature granulocytes(IG's)percentage and absolute count will include metamyelocytes, myelocytes, and promyelocytes. Blood smears from CBCs yielding IG's will be scanned manually for concordance. If this scan disagrees with the automated IG or if promyelocytes are noted, a manual differential will be performed. Immature Gran Absolute 0.02 0.00 - 0.05 x10(3)/mcL [facility] LILLYENNIUM Blood specimen (specimen) 12/18/2011 10:30 AM EDT 12/18/2011 10:46 AM EDT Pam Prasad MD HEMATOLOGY ORDERABLE S [facility] * ANTIBODY SCREEN (12/18/2011 10:30 AM EDT) Ab Screen Interp Positive ANA LILLYENNIUM Expires at [id number] on: [id number] ANA LILLYENNIUM Blood specimen (specimen) 12/18/2011 10:30 AM EDT 12/18/2011 10:50 AM EDT Narrative Resulting Agency Comment Spec In Lab Pam Prasad MD BLOOD BANK LAB ORDER MARIJA CERNANCY LILLYENNIUM * ABO/RH TYPING (12/18/2011 10:30 AM EDT) Pathologist [facility] ABORH Type A Neg [facility]ER MILLEN[facility] Blood specimen (specimen) 12/18/2011 10:30 AM EDT 12/18/2011 10:50 AM EDT Narrative Resulting Agency Comment Spec In Lab Pam Prasad MD BLOOD BANK LAB ORDER MARIJA CERNANCY FERN[facility]NDEZI[facility] * Aspartate Aminotransferase (12/18/2011 10:30 AM EDT) [facility] Aspartate Aminotransferase 21 0 - 30 unit/L [facility] Blood specimen (specimen) 12/18/2011 10:30 AM EDT 12/18/2011 10:46 AM EDT Narrative Resulting Agency Comment Spec In Lab Pam Prasad MD CHEMISTRY ORDERABLES Performing Organization Address City/[facility]/ZIP Co de Phone Number CERNANCY LILLYENNIUM * CBC (with Diff) (12/18/2011 10:30 AM EDT) [facility] White Blood Cell 8.8 4.0 - 10.0 [...] of variation 13.4 10.9 - 14.4 % ANA GILMAN Mean Platelet Volume 10.2 9.0 - 12.0 fL ANA GILMAN Blood specimen (specimen) 12/18/2011 10:30 AM EDT [...] PRN, Starting on 12/19/11 at 0321, Until Wed12/21/11 at 1354, Itching, Routine Given 12/19/2011 3:30 [...] Oral, EVERY 6 HOURS PRN, Starting on Wed12/19/11 at 1000, Until Wed12/21/11 at 1354, Pain, [...] PRIOR TO DISCHARGE, 1 dose, Starting on Wed12/19/11 at 0723, Until Wed12/20/11 at 2110, Per Protocol, Routine Given 12/20/2011 9:10 PM EDT 0.5 mLs Left Arm metFORMIN (GLUCOPHAGE) tablet 500 mg 500 mg, Oral, 2 TIMES DAILY WITH MEALS, First dose on Wed12/19/11 at 0800, Until Discontinued, Routine Given 12/21/2011 [...] (2 times per day), First dose on Wed12/19/11 at 0200, Until Discontinued Given 12/21/2011 9:00 [...] RN) 0900 (Given - Provider: Mayelin Oh RN)2109 (Given - Provider: Makenzie Tobias RN) 0900 (Given - Provider: Mayelin Oh RN) esomeprazole (NEXIUM) capsule 40 mg (CANCELED) 40 mg, Oral, DAILY, First dose on 12/19/11 at 0900, Until Discontinued, Routine 0900 (Given - Provider: Pradeep Rascon RN) 0900 (Given - Provider: Mayelin Oh, BEREKET) 0900 (Given - Provider: Mayelin Oh RN) [...] Mayelin Oh RN)211 (Given - Provider: Makenzie Tobias, BEREKET) 0900 (Given - Provider: Mayelin Oh, BEREKET) NIFEdipine (ADALAT CC) CR tablet 30 mg 30 mg, Oral, 2 TIMES DAILY, First dose on 12/20/11 at 1015, Until Discontinued, Routine 1015 (Given - Provider: Mayelin Oh RN)211 (Given - Provider: Makenzie Tobias, BEREKET) 09 (Given - Provider: Mayelin Oh, BEREEKT) Continuous Medication Order 12/19/2011 12/20/2011 12/21/2011 magnesium [...] Mayelin Oh RN)1406 (Given - Provider: Lakesha Worley RN)2111 (Given - Provider: Makenzie Tobias, BEREKET) 0740 (Given - Provider: Mayelin Oh, BEREKET) [...] Until 12/20/11 at 2110, Per Protocol, Routine 2110 (Given - Provider: Makenzie Tobias, BEREKET) OXYcodone-acetaminophen (PERCOCET) 5-325 mg per tablet 1-2 [...] Best RN) 0837 (Given - Provider: Mayelin Oh, RN)1859 (Given - Provider: Mayelin Oh RN) [...] Routine documented in this encounter Care Teams Professor Of Psychiatry Relationship Specialty Start Date End Date Dav Carlos MD PCP - General 10/01/10 11/30/12 documented as of this encounter
--- OUTSIDE RECORDS SUMMARY | 2024-02-04 00:44 | XMS_ITS | Encounter Summary ---
Author Organization [facility] [place] [address] Care Team Providers Care Laminator Preforms Name Role Phone Galina Hook MD Primary Care Provider [phone] Reason for Visit * Reason Comments Obstructive Sleep Apnea Encounter Details Date Type Department Care Team ([facility] Contact Info) Description 12/17/2010 8:00 PM EDT Procedure [place] [address] Rudolph Bustamante MD [facility] [place] [address] CADY (obstructive sleep apnea) (Primary Dx) Social [...] Study Date: 12/17/2010 Sex: Female Subject Code: [id number] Date of : 1980 Referring Physician: Galina [...] - 60%: 0.0% 0.0% 0.0% 0.0% 0.0% <= 50%: 18.8% 0.0% 0.0% 0.0% 1.0% % [...] 60 (bpm): 45.6% 69.5% 47.9% 63.1% 62.1% <= 50 (bpm): 19.8% 1.9% 0.1% 1.3% 2.3% % Artifact / Bad Data: 0.0% 0.0% 0.0% 0.0% 0.0% documented in this encounter Plan of Treatment Not on file documented as of this encounter Visit Diagnoses Diagnosis CADY (obstructive sleep apnea)- Primary Obstructive sleep apnea (adult) (pediatric) documented in this encounter Care Teams Laminator Preforms Relationship Specialty Start Date End Date Galina Hook MD PCP - General 10/01/10 11/30/12 documented as of this encounter
--- OUTSIDE RECORDS SUMMARY | 2024-02-04 00:44 | XMS_ITS | Encounter Summary ---
Author Organization [facility] [place] [address] Care Team Providers Care Assembler Mechanical Ordnance Name Role Phone Dav Carlos MD Primary Care Provider [phone] Reason for Visit * Reason Comments Routine Visit Encounter Details Date Type Department Care Team (Latest Contact Info) Description 08/27/2011 11:00 AM EDT Routine Obstetrics [place] [address] Lisette Elise MD [facility] DR OBSTETRICS [place] [address] GA: 21w3d Discharge Disposition: Home Social History [...] reflux documented in this encounter Care Teams Assembler Mechanical Ordnance Relationship Specialty Start Date End Date Dav Carlos MD PCP - General 10/01/10 11/30/12 documented as of this encounter
--- OUTSIDE RECORDS SUMMARY | 2024-02-04 00:44 | XMS_ITS | Encounter Summary ---
Author Organization [facility] [place] [address] Care Team Providers Care Logistics Support Name Role Phone Henri Gonzalez DO Primary Care Provider [phone] Encounter Details Date Type Department Care Team (Late st Contact Info) Description 03/17/2010 9:00 AM EST Office Visit Obstetrics [place] [address] Adelfo Mckeon MD [facility] DR OBSTETRICS & [place] [address] Social History Tobacco Use Types Packs/Day Years [...] on filedocumented in this encounter Care Teams Logistics Support Relationship Specialty Start Date End Date Henri Gonzalez DO [address] [place] [address] PCP - General 03/11/10 09/30/10 documented as of this encounter
--- OUTSIDE RECORDS SUMMARY | 2024-02-04 00:44 | XMS_ITS | Encounter Summary ---
Author Organization [facility] [place] [address] Care Team Providers Care Appliance Service Supervisor Name Role Phone Dav Carlos MD Primary Care Provider [phone] Encounter Details Date Type Department Care Team (Late st Contact Info) Description 08/29/2011 Orders Only Obstetrics [place] [address] Marilyn Reilly MD [facility] [address] [place] [address] Diabetes in Social History Tobacco Use Types [...] ? HARISH Xiao ?(Age): 1980(31) Med Rec#: ?[id number] ? Sex: ?F ? Site Loc: ?[facility] [place] ? Ht / Wt: ??(cm)/(kg) ? Pt. Loc: ? Echo Lab ? BSA: ? Study Date: ?10/06/2011 ? Pt. Type: Outpatient Study Quality: ?Tape: ? Referring: Marilyn Reilly Manager Care Management: Yosef Frankel Diagnosis:CPT Code(s): ??Doppler LTD (48683), ?? Echo F/U (89372), Color Doppler (99112), Indication(s): ??Maternal diabetes Rhythm: SUMMARY: 1. A [...] 10/06/2011 13:02:08 Images reviewed and interpretation verified [facility] Cardiac Ultrasound Laboratory Procedure Note Percy Morales MD - 10/06/2011 Procedure: Pediatric Echocardiogram Patient: HARISH Xiao DOB(Age): 1980(31) Med Rec#: [id number] Sex: F Site Loc: [facility] [place] Ht / Wt: (cm)/(kg) Pt. Loc: Echo Lab BSA: Study Date: 10/06/2011 Pt. Type: Outpatient Study Quality: Tape: Referring: Marilyn Reilly Manager Care Management: Yosef Frankel Diagnosis:CPT Code(s): Doppler LTD (92592), Echo F/U (74567), Color Doppler (77064), Indication(s): Maternal diabetes Rhythm: SUMMARY: 1. A [...] 10/06/2011 13:02:08 Images reviewed and interpretation verified [facility] Cardiac Ultrasound Laboratory Marilyn Reilly MD ECHO ORDERABLES documented in this encounter Visit Diagnoses Diagnosis Diabetes in Diabetes mellitus of mother, complicating , childbirth, or the puerperium, unspecified as to episode of care Diabetes in Diabetes mellitus of mother, complicating , childbirth, or the puerperium, unspecified as to episode of care documented in this encounter Care Teams Appliance Service Supervisor Relationship Specialty Start Date End Date Dav Carlos MD PCP - General 10/01/10 11/30/12 documented as of this encounter
--- OUTSIDE RECORDS SUMMARY | 2024-02-04 00:44 | XMS_ITS | Encounter Summary ---
Author Organization [facility] [place] [address] Care Team Providers Care Cable Rigger Name Role Phone Dav Carlos MD Primary Care Provider [phone] Encounter Details Date Type Department Care Team (Latest Contact Info) Description 08/11/2011 9:30 AM EDT Routine Obstetrics [place] [address] CLINIC, Lisette Aviles MD [facility] [place] [address] GA: 19w1d Discharge Disposition: Home Social History [...] applicable documented in this encounter Care Teams Cable Rigger Relationship Specialty Start Date End Date Dav Carlos MD PCP - General 10/01/10 11/30/12 documented as of this encounter
--- OUTSIDE RECORDS SUMMARY | 2024-02-04 00:44 | XMS_ITS | Encounter Summary ---
Author Organization [facility] [place] [address] Care Team Providers Care Can Cleaner Name Role Phone Henri Gonzalez DO Primary Care Provider [phone] Encounter Details Date Type Department Care Team (Late st Contact Info) Description 03/03/2010 [place] [address] Chaz Suarez MD [facility] DR OBSTETRICS [place] [address] Social History Tobacco Use Types Packs/Day Years Used Date Smoking Tobacco: Never Assessed Sex and Gender Information Value Date Recorded Sex Assigned at Not on file Gender Identity Female 12/01/2018 2:55 PM EDT Sexual Orientation Not on file documented as of this encounter Plan of Treatment Not on file documented as of this encounter Procedures Procedure Name Priority Date/Time Associated Diagnosis Comments HOT MILL WORKER CYTOLOGY FINAL REPORT Routine 03/03/2010 4:35 PM EST SURGICAL PATHOLOGY REPORT Routine 03/03/2010 4:11 PM EST documented in this encounter Results * PATHOLOGY HOT MILL WORKER CYTOLOGY FINAL REPORT (03/03/2010 4:35 PM EST) Maintenance Supervisor Cytology Final Report ? [facility] ? Provider: ?? CHAZ SUAREZ ?Pt. Name: ?? MIGDALIA MOREIRA ? Acc #: ?[id number] ?Pt. ? Col Date: ?? 03/03/2010 ?/Sex: ?1980,(29 ? years),Female ? Rec Date: ?? 03/03/2010 ?LOC: ?5L ? CYTOPATHOLOGY: ??HOT MILL WORKER ? ---Adequacy--- ? Specimen submitted is satisfactory. ? Endocervical component present. ? ---Cytopathologic Diagnosis--- ?NORMAL ? Negative for Intraepithelial Lesion or Malignancy (NILM). ? 03/05/10 ?? Screened by: ??SLA ? 03/05/10 ?? Verified by: ??ANGELES Camargo(ASCP), Della Urrutia - ? Sporting Goods Sales Associate ? ---Clinical Information--- ? Specimen Source: ?Cervical [...] further ? information please contact the [facility] Laboratory. ? Reference: ??Amanda BLACK. ??Chemical Engraver of Pap Smear Results. ??In: ? Barbara BS, [facility], ed. ??The Pap Smear. ??[place]: ??Mendoza, 2002: ? 71-77. ANA GILMAN 03/03/2010 4:35 PM EST Chaz Suarez MD PATHOLOGY/CYTOLOGY O RDERABLES ANA GILMAN * PATHOLOGY SURGICAL PATHOLOGY FINAL REPORT (03/03/2010 4:11 PM EST) Surgical Pathology Report ? [facility] ? Provider: ?? CHAZ SUAREZ ?Pt. Name: ?? MIGDALIA MOREIRA ? Acc #: ?[id number] ?Pt. ? Col Date: ?? 03/03/2010 ?/Sex: [...] on filedocumented in this encounter Care Teams Can Cleaner Relationship Specialty Start Date End Date Henri Gonzalez DO [address] [place] [address] PCP - General 03/11/10 09/30/10 documented as of this encounter
--- OUTSIDE RECORDS SUMMARY | 2024-02-04 00:44 | XMS_ITS | Encounter Summary ---
Author Organization [facility] [place] [place] [address] Care Team Providers Care Sole Buffer Name Role Phone Dav Carlos MD Primary Care Provider [phone] Reason for Visit * Reason Onset Date Comments Ultrasound 06/01/2011 Encounter Details Date Type Department Care Team (Latest Contact Info) Description 05/29/2011 11:00 AM EST Initial consult Obstetrics [place] [address] Lisette Elise MD [facility] DR OBSTETRICS [place] [address] Unspecified high-risk (Primary Dx) Discharge Disposition: Home [...] Procedure Name Priority Date/Time Associated Diagnosis Comments SOCIAL WORK JOB TITLES CYTOLOGY FINAL REPORT Routine 05/29/2011 3:57 PM EST documented in this encounter Results * SOCIAL WORK JOB TITLES CYTOLOGY FINAL REPORT (05/29/2011 3:57 PM EST) Graduate Student Instructor Cytology Final Report ? [facility] ? Provider: ?? MARILYN HOUSE Pt. Name: ?? MIGDALIA MOREIRA ? Acc #: ?[id number] ?Pt. ? Col Date: ?? 05/29/2011 ? /Sex: ?1980,(31 ? years),Female ? Rec Date: ?? 05/29/2011 ? LOC: ?5L ? CYTOPATHOLOGY: ??SOCIAL WORK JOB TITLES ? ---Adequacy--- ? Specimen submitted is satisfactory. ? Endocervical component present. ? ---Cytopathologic Diagnosis--- ? NORMAL ? Negative for Intraepithelial Lesion or Malignancy (NILM). ? 06/02/11 ?? Screened by: ??LMY ? 06/02/11 ?? Verified by: ??Satya REYNOSO(ASCP), Julia Zuniga - Herb Grower ? ---Clinical Information--- ? HPV Option: ? Reflex HPV ? Preparation: ?Liquid Based Pap ? Specimen Source: ?Cervical Endocervical LBP ? LMP: ?dec 3 ? Hormones?: ?No ? Hysterectomy?: ?No ?: ?No ?: ?Yes ? I.U.D.?: ?No ? Pelvic Radiation: ? No ? Prior SOCIAL WORK JOB TITLES Therapy?: ? No ? Hist Abnl Pap/Biopsy?: [...] ??For further ? information please contact the [facility] Laboratory. ? Reference: ??Amanda BLACK. ??Admissions Coordinator of Pap Smear Results. ??In: ? Barbara BS, [facility], ed. ??The Pap Smear. ??[place]: ??Mendoza, 2002: ? 71-77. ANA GILMAN 05/29/2011 3:57 PM EST Marilyn House MD PATHOLOGY/CYTOLOGY ORDERABLES ANA GILMAN documented in this encounter Visit Diagnoses Diagnosis Unspecified high-risk - Primary documented in this encounter Care Teams Sole Buffer Relationship Specialty Start Date End Date Dav Carlos MD PCP - General 10/01/10 11/30/12 documented as of this encounter
--- OUTSIDE RECORDS SUMMARY | 2024-02-04 00:44 | XMS_ITS | Encounter Summary ---
Author Organization [facility] [place] [address] Care Team Providers Care Line Helper Name Role Phone Dav Carlos MD Primary Care Provider [phone] Reason for Visit * Reason Comments Routine Visit Encounter Details Date Type Department Care Team (Latest Contact Info) Description 09/29/2011 2:45 PM EDT Routine Obstetrics [place] [address] Julien Elizabeth MD [facility] DR OBSTETRICS & [place] [address] GA: 26w1d Discharge Disposition: Home Social History [...] - 09/29/2011 3:08 PM EDT Welcome to [facility], your secure online access to your electronic medical record at [facility]. Using [employer] you will be able to send messages to your providers, view your test results, renew prescriptions, schedule appointments, and much more. Follow these instructions to enter your personal [employer] account for the first time: 1. Start your internet browser and type [email or web address] into the address bar. 2. In the New User box on the right-hand side of the Welcome page click the link that states, ???I have an activation code.?? 3. On the Identification page, follow these steps: a) Enter your [employer] activation code: [email or web address] b) Expires: 11/13/11 03:08 PM IMPORTANT: This Activation Code will on the above mentioned date. If you do not sign up for [employer] by this date, you will need to request another activation code. c) Enter your date of , using the calendar tool provided. d) Enter your Zip code. e) Select ???submit?? to go to the next page. 4. On the Create Account page, follow these steps: a) Create a [employer] username. This can???t be changed, so choose [...] record. If you have any questions about [employer] or your Access Code, please call for [place], for [place] or for [place]. If you need technical support, please e-mail [email or web address]. Remember, [employer] is NOT for urgent needs! [...] 10/13/2011 11:40 am) Patient Info ID: ? [id number] ? : ??[birth year] (31 yrs) Name: ? MIGDALIA MOREIRA ? Visit Date: 10/13/2011 11:28 am Performed By Performed By: ?Neda Hernandez [facility] Attending: ? Arik PENALOZA, E ??Valerie Referred By: ? JULIEN ELIZABETH MD Service(s) Provided UOBFOL - Efw - Growth - Reevaluation - Bermudez ?[id number] - [id number] Indications Efw, Growth IDDM; Evaluation Num Of [...] Final 10/13/2011 11:40 am) Patient Info ID: [id number] : [birth year] (31 yrs) Name: MIGDALIA MOREIRA Visit Date: 10/13/2011 11:28 am Performed By Performed By: Neda Hernandez [facility] Attending: Lisette Elise MD Referred By: JULIEN ELIZABETH MD Service(s) Provided UOBFOL - Efw - Growth - Reevaluation - [place]z [id number] - [id number] Indications Efw, Growth IDDM; Evaluation Num Of [...] uncontrolled documented in this encounter Care Teams Line Helper Relationship Specialty Start Date End Date Dav Carlos MD PCP - General 10/01/10 11/30/12 documented as of this encounter
--- OUTSIDE RECORDS SUMMARY | 2024-02-04 00:44 | XMS_ITS | Encounter Summary ---
Author Organization [facility] [place] [address] Care Team Providers Care Supervisor Agency Appointments Name Role Phone Dav Carlos MD Primary Care Provider [phone] Reason for Visit * Reason Comments Routine Visit Encounter Details Date Type Department Care Team ([facility] st Contact Info) Description 07/02/2011 8:45 AM EDT Routine Obstetrics [place] [address] Marilyn Reilly MD [facility] DR OBSTETRICS [place] [address] GA: 13w3d Discharge Disposition: Home Social History [...] encounter Miscellaneous Notes * Miscellaneous - Bradley, Radiotelegraphist - 07/06/2011 11:55 AM EDT documented in [...] HARISH NEGRON L ?(Age): 1980(31) Med Rec#: ?[id number] ? Sex: ?F ? Site Loc: ?[facility] [place] [place] ? Ht / Wt: ??(cm)/(kg) ? Pt. Loc: ? Echo Lab ? BSA: ? Study Date: ?08/27/2011 ? Pt. Type: Outpatient Study Quality: ?Tape: ? Referring: Grover Elise Diffusion Furnace Operator: Yosef Frankel Diagnosis:CPT Code(s): ?? Echo Full (71084), ?? Doppler Full (52158), ??Color Doppler (10089), Indication(s): ??Maternal diabetes Rhythm: SUMMARY: 1. A [...] 08/28/2011 07:53:22 Images reviewed and interpretation verified [facility] Cardiac Ultrasound Laboratory Procedure Note Percy Morales MD - 08/28/2011 Procedure: Pediatric Echocardiogram Patient: HARISH Xiao (Age): 1980(31) Med Rec#: [id number] Sex: F Site Loc: [facility] [place] [place] Ht / Wt: (cm)/(kg) Pt. Loc: Echo Lab BSA: Study Date: 08/27/2011 Pt. Type: Outpatient Study Quality: Tape: Referring: Grover Elise Diffusion Furnace Operator: Yosef Frankel Diagnosis:CPT Code(s): Echo Full (30138), Doppler Full (54794), Color Doppler (87507), Indication(s): Maternal diabetes Rhythm: SUMMARY: 1. A [...] 08/28/2011 07:53:22 Images reviewed and interpretation verified [facility] Cardiac Ultrasound Laboratory Marilyn Reilly MD ECHO ORDERABLES documented in this encounter Visit Diagnoses Diagnosis Unspecified high-risk - Primary Diabetes mellitus Type II or unspecified type diabetes mellitus without mention of complication, not stated as uncontrolled Unspecified high-risk documented in this encounter Care Teams Supervisor Agency Appointments Relationship Specialty Start Date End Date Dav Carlos MD PCP - General 10/01/10 11/30/12 documented as of this encounter
--- OUTSIDE RECORDS SUMMARY | 2024-02-04 00:44 | XMS_ITS | Encounter Summary ---
Author Organization [facility] [place] [address] Care Team Providers Care Lime Mixer Name Role Phone Dav Carlos MD Primary Care Provider [phone] Encounter Details Date Type Department Care Team (Latest Contact Info) Description 10/13/2011 11:00 AM EDT Routine Obstetrics [place] [address] CLINIC, Lisette Aviles MD [facility] OBSTETRICS [place] [address] GA: 28w1d Discharge Disposition: Home Social History [...] (10/13/2011 12:00 AM EDT) Dispensed? [facility] specimen (specimen) 10/13/2011 10/13/2011 11:47 AM EDT Narrative Resulting Agency Comment Spec In Lab Lisette Elise MD BLOOD BANK PRODUC T ORDERABLES ANA GILMAN documented in this encounter Visit Diagnoses Diagnosis High-risk supervision- Primary Unspecified high-risk documented in this encounter Care Teams Lime Mixer Relationship Specialty Start Date End Date Dav Carlos MD PCP - General 10/01/10 11/30/12 documented as of this encounter
--- OUTSIDE RECORDS SUMMARY | 2024-02-04 00:44 | XMS_ITS | Encounter Summary ---
Author Organization [facility] [place] [address] Care Team Providers Care Electronic Specialist Name Role Phone Dav Carlos MD Primary Care Provider [phone] Reason for Visit * Reason Comments Routine Visit Encounter Details Date Type Department Care Team ([facility] st Contact Info) Description 12/01/2011 10:30 AM EDT Routine Obstetrics [place] [address] Marilyn Reilly MD [facility] DR OBSTETRICS [place] [address] GA: 35w1d Discharge Disposition: Home Social History [...] care documented in this encounter Care Teams Electronic Specialist Relationship Specialty Start Date End Date Dav Carlos MD PCP - General 10/01/10 11/30/12 documented as of this encounter
--- OUTSIDE RECORDS SUMMARY | 2024-02-04 00:44 | XMS_ITS | Encounter Summary ---
Author Organization [facility] [place] [address] Care Team Providers Care Director Learning Services Name Role Phone Galina Hook MD Primary Care Provider [phone] Reason for Visit * Reason Comments Obstructive Sleep Apnea Encounter Details Date Type Department Care Team ([facility] Contact Info) Description 12/01/2010 1:40 PM EDT [place] [address] Rudolph Bustamante MD [facility] [place] [address] CADY (obstructive sleep apnea) (Primary Dx) Social [...] Yes Headaches upon awakening: Yes Daytime Symptoms: [place] Sleepiness Score: 14/24 Upon Awakening: Unrefreshed Daytime [...] 30 y.o. 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 4. Follow up will be arranged after reviewing the sleep study results. documented in this encounter Plan of Treatment Not on file documented as of this encounter Visit Diagnoses Diagnosis CADY (obstructive sleep apnea)- Primary Obstructive sleep apnea (adult) (pediatric) documented in this encounter Care Teams Director Learning Services Relationship Specialty Start Date End Date Galina Hook MD PCP - General 10/01/10 11/30/12 documented as of this encounter
--- OUTSIDE RECORDS SUMMARY | 2024-02-04 00:44 | XMS_ITS | Encounter Summary ---
Author Organization [facility] [place] [address] Care Team Providers Care Employee Welfare Manager Name Role Phone Dva Carlos MD Primary Care Provider [phone] Reason for Visit * Reason Comments Routine Visit Encounter Details Date Type Department Care Team (Latest Contact Info) Description 06/16/2011 11:15 AM EST Routine Obstetrics [place] [address] Amina Mock MD [facility] DR OBSTETRICS [place] [address] GA: 11w1d Discharge Disposition: Home Social History [...] antepartum documented in this encounter Care Teams Employee Welfare Manager Relationship Specialty Start Date End Date Dav Carlos MD PCP - General 10/01/10 11/30/12 documented as of this encounter
--- OUTSIDE RECORDS SUMMARY | 2024-02-04 00:44 | XMS_ITS | Encounter Summary ---
Author Organization [facility] [place] [address] Care Team Providers Care Validation Specialist Name Role Phone Dav Carlos MD Primary Care Provider [phone] Reason for Visit * Reason Comments Routine Visit Encounter Details Date Type Department Care Team ([facility] st Contact Info) Description 05/29/2011 11:30 AM EST Routine Obstetrics [place] [id number] CLINIC, Marilyn Benites MD [facility] OBSTETRICS [place] [address] GA: 8w4d Social History Tobacco Use Types [...] EST Unspecified high-risk HIV SCREEN, 4TH GENERATION ([facility]/CGP/APD/NLH) Routine 05/29/2011 12:38 PM EST Unspecified high-risk HEPATITIS B SURFACE ANTIGEN Routine 05/29/2011 12:38 PM EST Unspecified high-risk CBC (WITH DIFF) Routine 05/29/2011 12:38 PM EST Unspecified high-risk ANTIBODY SCREEN Routine 05/29/2011 12:38 PM EST Unspecified high-risk ASPARTATE AMINOTRANSFERASE Routine 05/29/2011 12:38 PM EST Unspecified high-risk HEMOGLOBIN A1C Routine 05/29/2011 12:38 PM EST Unspecified high-risk SCREEN Routine 05/29/2011 12:27 PM EST Unspecified high-risk GC/CHLAMYDIA Routine 05/29/2011 11:45 AM EST Unspecified high-risk GC/CHLAM Routine 05/29/2011 11:45 AM EST Unspecified high-risk CYTOPATHOLOGY GYNECOLOGICAL Routine 05/29/2011 11:45 AM EST Unspecified high-risk documented in this encounter Results * (ABNORMAL) Protein, urine, 24 hour (07/15/2011 7:45 AM EDT) Protein Concentration, U24 <6 <=80 mg/dL CERNER MILLENNIUM Protein, 24 Hour Urine <0.18(H) <=0.15 gm/24hr CERNER MILLENNIUM Urine specimen (specimen) 07/15/2011 7:45 AM EDT 07/16/2011 2:32 PM EDT Narrative Resulting Agency Comment Spec In Lab Marilyn Reilly MD URINE ORDERABLES CERNER MILLENNIUM * DIFFERENTIAL, AUTOMATED (05/29/2011 12:38 PM EST) Neutrophil % 59.8 34.0 - 71.0 % CERNER MILLENNIUM Neutrophil Absolute 6.11 1.50 - 6.30 x10(3)/mcL CERNER MILLENNIUM Lymph % 33.2 19.0 - 53.0 % CERNER MILLENNIUM Lymphocytes Abs 3.4 1.0 - 3.6 x10(3)/mcL CERNER MILLENNIUM Monocyte % 5.6 4.0 - 13.0 % CERNER MILLENNIUM Monocyte Abs 0.6 0.2 - 1.0 x10(3)/mcL CERNER MILLENNIUM Eos % 0.9 0.0 - 7.0 % CERNER MILLENNIUM Eosinophils Abs 0.1 0.0 - 0.5 x10(3)/mcL CERNER MILLENNIUM Basophil % 0.2 0.0 - 2.0 % CERNER MILLENNIUM Baso [...] performed. Immature Gran Absolute 0.03 0.00 - 0.05 x10(3)/mcL CERNER MILLENNIUM Blood specimen (specimen) 05/29/2011 12:38 PM EST 05/29/2011 12:40 PM EST Marilyn Reilly MD HEMATOLOGY ORDERAB LES Performing Organization Address City/[facility] Co de Phone Number [facility] * ANTIBODY SCREEN (05/29/2011 12:38 PM EST) Ab Screen Interp Negative [facility] Expires at [id number] on: [id number] [facility] MILLEN[facility]UM Blood specimen (specimen) 05/29/2011 12:38 PM EST 05/29/2011 12:43 PM EST Marilyn Reilly MD BLOOD BANK LAB ORD ERABLES Performing Organization Address City/[facility] Co de Phone Number [facility] * ABO/RH TYPING (05/29/2011 12:38 PM EST) ABORH Type A Neg [facility] MILLENNIUM Blood specimen (specimen) 05/29/2011 12:38 PM EST 05/29/2011 12:43 PM EST Marilyn Reilly MD BLOOD BANK LAB ORD ERABLES Performing Organization Address City/[facility]/ZIP Co de Phone Number [facility] * (ABNORMAL) RUBELLA ANTIBODY, IGG (05/29/2011 12:38 PM EST) Rubella Antibody IgG Negative( A) Positive CERNER MILLENNIUM Comment: Please note: ??A positive result for this assay indicates that antibody levels are >or= 10.0 IU/mL and is considered to be an indicator of positive immune status. Blood specimen (specimen) 05/29/2011 12:38 PM EST 05/29/2011 12:40 PM EST Marilyn Reilly MD CHEMISTRY ORDERABL ES Performing Organization Address [facility] Phone Number CERNER MILLENNIUM * HEPATITIS B SURFACE ANTIGEN (05/29/2011 12:38 PM EST) Hepatitis B Surface Antigen Negative Negative CERNER MILLENNIUM Blood specimen (specimen) 05/29/2011 12:38 PM EST 05/29/2011 12:40 PM EST Marilyn Reilly MD CHEMISTRY ORDERABL ES Performing Organization Address [facility] Phone Number CERNER MILLENNIUM * SYPHILIS ANTIBODY, IGG (05/29/2011 12:38 PM EST) Syphilis IgG Negative Negative CERNER MILLENNIUM Blood specimen (specimen) 05/29/2011 12:38 PM EST 06/01/2011 7:15 AM EST Marilyn Reilly MD CHEMISTRY ORDERABL ES Performing Organization Address [facility] Phone Number CERNER MILLENNIUM * (ABNORMAL) CBC (WITH DIFF) (05/29/2011 12:38 PM EST) White Blood Cell 10.2(H) 4.0 - 10.0 x10(3)/mc L CERNER MILLENNIUM Red Blood Cell 4.21 3.93 - 5.22 x10(6)/mc L CERNER MILLENNIUM Hemoglobin 13.0 11.2 - 15.7 gm/dL CERNER MILLENNIUM Hematocrit 36.8 34.0 - 45.0 % CERNER MILLENNIUM Mean Cell Volume 87.4 79.0 - 94.0 fL CERNER MILLENNIUM Mean Cell Hemoglobin 30.9 26.6 - 32.2 pg CERNER MILLENNIUM Mean Cell Hemoglobin Concentration 35.3 32.0 - 36.5 gm/dL CERNER MILLENNIUM Platelet 200 145 - 370 x10(3)/mc L CERNER MILLENNIUM RDW Standard Deviation 40.3 35.0 - 46.0 fL CERNER MILLENNIUM RDW coefficient of variation 12.7 10.9 - 14.4 % CERNER MILLENNIUM Mean Platelet Volume 9.4 9.0 - 12.0 fL CERNER MILLENNIUM Blood specimen (specimen) 05/29/2011 12:38 PM EST 05/29/2011 12:40 PM EST Marilyn Reilly MD HEMATOLOGY ORDERAB LES CERNANCY LILLYENNIUM * (ABNORMAL) Creatinine, serum (05/29/2011 12:38 PM EST) Creatinine 0.55(L) 0.70 - 1.20 mg/dL CERNER MILLENNIUM Est Glomerular Filtration Rate [...] MD CHEMISTRY ORDERABL ES Performing Organization Address [facility] Co de Phone Number [facility] * Aspartate Aminotransferase (05/29/2011 12:38 PM EST) Aspartate Aminotransferase 17 0 - 30 unit/L [facility] Blood specimen (specimen) 05/29/2011 12:38 PM EST 05/29/2011 12:40 PM EST Marilyn Reilly MD CHEMISTRY ORDERABL ES Performing Organization Address [facility] Co de Phone Number [facility] * Hemoglobin A1c (05/29/2011 12:38 PM EST) Hemoglobin A1c 5.9 4.3 - 6.1 % [facility] Estimated Average Glucose 123 mg/dL [facility] Comment: eAG equivalents for HbA1c percentages: HbA1c(%) [...] ADA website: ??http://professional.diabetes.org/glucosecalculator.aspx Reference: Jose BLANKENSHIP, Kate Martínez, Alexis R, et al. ??Translating the A1C assay into estimated average glucose values. ??Diabetes Care 2008:31(8):5031-4187. Blood specimen (specimen) 05/29/2011 12:38 PM EST 05/29/2011 12:40 PM EST Marilyn Reilly MD CHEMISTRY ORDERABL ES Performing Organization Address [facility] Phone Number [facility] * HIV (05/29/2011 12:38 PM EST) Pathologist [facility] HIV 1/2 Ab Negative [facility] Blood specimen (specimen) 05/29/2011 12:38 PM EST 05/29/2011 12:40 PM EST Marilyn Reilly MD CHEMISTRY ORDERABL ES Performing Organization Address [facility] Phone Number [facility] * GC/CHLAM (05/29/2011 11:45 AM EST) Pathologist [facility] GC Gene Amp Negative Negative [facility] Comment: The only FDA approved specimen types for this assay are cervix, vagina, urethra and urine. ??The sensitivity and specificity of the assay for other specimen types has not been determined. GC Source Cervical CERNER MILLENNIUM Chlamydia Gene Amp Negative Negative [facility] Comment: The only FDA approved specimen types for this assay are cervix, vagina, urethra and urine. ??The sensitivity and specificity of the assay for other specimen types has not been determined. Chlm Source Cervical CERNER MILLENNIUM Specimen of unknown material (specimen) 05/29/2011 11:45 AM EST 05/29/2011 4:51 PM EST Marilyn Reilly MD MICROBIOLOGY - GEN ERAL ORDERABLES Performing Organization Address [facility] Phone Number [facility] * Cytopathology Gynecological (05/29/2011 11:45 AM EST) [...] uncontrolled documented in this encounter Care Teams Validation Specialist Relationship Specialty Start Date End Date Dav Carlos MD PCP - General 10/01/10 11/30/12 documented as of this encounter
--- OUTSIDE RECORDS SUMMARY | 2024-02-04 00:44 | XMS_ITS | Encounter Summary ---
Author Organization [facility] [place] [address] Care Team Providers Care Primer Powder Blender Wet Name Role Phone Unavailable Primary Care Provider Unavailabl e Encounter Details Date Type Department Care Team ([facility] st Contact Info) Description 03/03/2010 11:30 AM EST Follow-Up Obstetrics [place] [address] Alina Krishna MD [facility] [address] OBSTETRICS [place] [address] Social History Tobacco Use Types Packs/Day Years [...]
--- OUTSIDE RECORDS SUMMARY | 2024-02-04 00:44 | XMS_ITS | Encounter Summary ---
Author Organization [facility] [place] [address] Care Team Providers Care Farm Hand Name Role Phone Henri Gonzalez DO Primary Care Provider [phone] Encounter Details Date Type Department Care Team (Late st Contact Info) Description 03/29/2010 2:38 AM EST - 03/29/2010 3:43 AM EST [place] [address] Sivakumar Hopson MD [facility] [place] [address] Discharge Disposition: Home Social History Tobacco Use [...] fluticasone (FLONASE) 50 mcg/Actuation nasal spray 2 Collins(s), Nasal, Once daily 03/29/2010 12/01/2010 metFORMIN (GLUCOPHAGE) 500 mg tablet 500 MG = 1 Tablet(s), PO, Twice daily 03/17/2010 05/29/2011 omeprazole (PRILOSEC) 40 mg capsule 20 MG = 1 Capsule(s) PO Once daily 03/17/2010 09/29/2011 documented as of this encounter Plan of Treatment Not on file documented as of this encounter Visit Diagnoses Not on filedocumented in this encounter Care Teams Farm Hand Relationship Specialty Start Date End Date Henri Gonzalez DO [address] [place] [address] PCP - General 03/11/10 09/30/10 documented as of this encounter
--- OUTSIDE RECORDS SUMMARY | 2024-02-04 00:44 | XMS_ITS | Encounter Summary ---
Author Organization [facility] Address [facility] [place] [address] Care Team Providers Care Lead Enterprise Architect Name Role Phone Dav Carlos MD Primary Care Provider [phone] Reason for Visit * Reason Comments Emesis Encounter Details Date Type Department Care Team ([facility] Contact Info) Description 09/09/2011 2:04 AM EDT - 09/09/2011 7:39 AM EDT Emergency [place] [address] Sivakumar Hopson MD [facility] [place] [address] Nausea with vomiting; , excessive vomiting Discharge [...] AFTER YOUR VISIT TO THE EMERGENCY ROOM (ARMENIAN) documented in this encounter Medications at Time [...] Mcmullen RN - 09/09/2011 3:11 AM EDT KILN SETTER here * Esteban Mcmullen RN - 09/09/2011 [...] past evening, after [facility] the patient felt sick to her stomach [...] mL 30 x 09/01 Syrg by [facility].(Non-Drug; Combo Route) route. Taking insulin before breakfast, [...] normal. Procedures Bedside U/S-> reassuring heart tones [facility]- N/A Diagnostics: Recent Results (from the [...] Appearance UA Hazy (*) Clear ??? Spec [place] UA 1.014 1.002 - 1.030 ??? Color [...] fluids; Zofran ODT 4 mg; Bedside U/S; Repair Armature Winder Helper consult; D5; Discharge home Wei Martin MD Resident 09/09/11 4527 ED ATTENDING NOTE: I reviewed Dr. Martin's note and agree with the lewis portions of the documented findings and plan of care. I performed an independent history and physical exam myself. I independently reviewed the labs. FHT 140's. [place] much better in the emergency Perman after [...] 09/09/2011 4:10 AM EDT COMPREHENSIVE METABOLIC PANEL Routine 09/09/2011 4:10 AM EDT documented in this encounter Results * (ABNORMAL) Urinalysis with microscopic (09/09/2011 4:13 AM EDT) Glucose, Urine Dipstick Negative Negative mg/dL CERNER MILLENNIUM Protein, Urine Dipstick Negative mg/dL CERNER MILLENNIUM Bilirubin, Urine Dipstick Negative Negative mg/dL CERNER MILLENNIUM Urobilinogen, Urine Dipstick Normal mg/dL CERNER MILLENNIUM pH, Urn (dipstick) 6.5 5.0 - 8.0 CERNER MILLENNIUM Blood, Urine Dipstick Negative mg/dL CERNER MILLENNIUM Ketone, Urine Dipstick 40(A) Neg mg/dL CERNER MILLENNIUM Nitrite, Urine Dipstick Negative CERNER MILLENNIUM Leukocytes, Urine Dipstick Negative mcL CERNER MILLENNIUM Appearance, Urine Dipstick Hazy(A) Clear CERNER MILLENNIUM Specific [place] Urine Automated 1.014 1.002 - 1.030 CERNER MILLENNIUM Color, Urine Dipstick Yellow Yellow CERNER MILLENNIUM RBC, Urine Not Present 0 - 4 CERNER MILLENNIUM WBC, Urine <1 0 - 5 /HPF CERNER MILLENNIUM Bacteria, Urine Occasional /HPF CERNER MILLENNIUM Squamous Epithelial Cells, Urine 1 <=4 /HPF CERNER MILLENNIUM Amorphous Crystals, Urine Occasional /HPF CERNER MILLENNIUM Urine specimen (specimen) 09/09/2011 4:13 AM EDT 09/09/2011 4:24 AM EDT Narrative Resulting Agency Comment Spec In Lab Sivakumar Hopson MD URINE ORDERABLES CERNER MILLENNIUM * (ABNORMAL) DIFFERENTIAL, AUTOMATED (09/09/2011 4:10 AM EDT) Neutrophil % 84.6(H) 34.0 - 71.0 % CERNER MILLENNIUM Neutrophil Absolute 10.85(H) 1.50 - 6.30 x10(3)/mc L CERNER MILLENNIUM Lymph % 12.2(L) 19.0 - 53.0 % CERNER MILLENNIUM Lymphocytes Abs 1.6 1.0 - 3.6 x10(3)/mc L CERNER MILLENNIUM Monocyte % 2.7(L) 4.0 - 13.0 % CERNER [...] Immature Gran Absolute 0.03 0.00 - 0.05 x10(3)/mc L CERNER MILLENNIUM Blood specimen (specimen) 09/09/2011 4:10 AM EDT 09/09/2011 4:16 AM EDT Sivakumar Hopson MD HEMATOLOGY ORDERABLE S [facility] * (ABNORMAL) BETA HYDROXYBUTYRATE (09/09/2011 4:10 AM EDT) Beta-hydroxybu turate 0.41(H) 0.00 - 0.30 mmol/L CERNER MILLENNIUM Comment: Reference range: ??0.00-0.30 mmo1/L, based on an overnight fast. ??Children may be higher. Blood specimen (specimen) 09/09/2011 4:10 AM EDT 09/09/2011 4:16 AM EDT Narrative Resulting Agency Comment Spec In Lab Sivakumar Hopson MD CHEMISTRY ORDERABLES [facility] * (ABNORMAL) Comprehensive metabolic panel (non-fasting) (09/09/2011 4:10 AM EDT) [facility] Glucose 117 60 - 199 mg/dL CERNER MILLENNIUM Comment:Diabetes: >=200 mg/d L plus symptoms Blood Urea Nitrogen 7(L) 8 - 18 mg/dL CERNER MILLENNIUM [...] 105 98 - 107 mmol/L CERNER MILLENNIUM Carbon Dioxide 22 22 - 31 mmol/L CERNER MILLENNIUM Anion Gap 9 5 - 15 mmol/L CERNER MILLENNIUM Calcium 8.4(L) 8.5 - 10.5 mg/dL CERNER MILLENNIUM Protein, Total 6.3(L) 6.4 - 8.3 gm/dL CERNER MILLENNIUM Albumin 3.6 3.2 - 5.2 gm/dL CERNER MILLENNIUM Aspartate Aminotransferase 14 0 - 30 unit/L CERNER MILLENNIUM Alanine Aminotransferase 12 0 - 30 unit/L CERNER MILLENNIUM Alkaline Phosphatase 49 40 - 104 unit/L CERNER MILLENNIUM Bilirubin, Total 0.3 0.2 - 1.3 mg/dL CERNER MILLENNIUM Bilirubin, Direct 0.1 0.0 - 0.3 mg/dL CERNER MILLENNIUM Est Glomerular Filtration Rate [...] In Lab Sivakumar Hopson MD CHEMISTRY ORDERABLES [facility] * (ABNORMAL) CBC (with Diff) (09/09/2011 4:10 AM EDT) White Blood Cell 12.8(H) 4.0 - 10.0 x10(3)/mc L CERNER MILLENNIUM Red Blood Cell 3.83(L) 3.93 - 5.22 x10(6)/mc L CERNER MILLENNIUM Hemoglobin 12.2 11.2 - 15.7 gm/dL CERNER MILLENNIUM Hematocrit 33.8(L) 34.0 - 45.0 % CERNER MILLENNIUM Mean Cell Volume 88.3 79.0 - 94.0 fL CERNER MILLENNIUM Mean Cell Hemoglobin 31.9 26.6 - 32.2 pg CERNER MILLENNIUM Mean Cell Hemoglobin Concentration 36.1 32.0 - 36.5 gm/dL CERNER MILLENNIUM Platelet 167 145 - 370 x10(3)/mc L CERNER MILLENNIUM RDW Standard Deviation 41.5 35.0 - 46.0 fL CERNER MILLENNIUM RDW coefficient of variation 13.0 10.9 - 14.4 % CERNER MILLENNIUM Mean Platelet Volume 9.6 9.0 - 12.0 fL CERNANCY MILLENNIUM Blood specimen (specimen) 09/09/2011 4:10 AM EDT [...] RN) documented in this encounter Care Teams Lead Enterprise Architect Relationship Specialty Start Date End Date Dav Carlos MD PCP - General 10/01/10 11/30/12 documented as of this encounter
--- OUTSIDE RECORDS SUMMARY | 2024-02-04 00:44 | XMS_ITS | Encounter Summary ---
Author Organization [facility] [place] [address] Care Team Providers Care Beef Lugger Name Role Phone Dav Carlos MD Primary Care Provider [phone] Reason for Visit * Reason Comments Routine Visit Encounter Details Date Type Department Care Team ([facility] st Contact Info) Description 07/16/2011 11:00 AM EDT Routine Obstetrics [place] [address] Marilyn Reilly MD [facility] [address] OBSTET[place] [address] GA: 15w3d Discharge Disposition: Home Social History [...] EDT) Hours Collected 24 hour(s) CERNER MILLENNIUM Total Volume 3030 mL CERNER MILLENNIUM Urine specimen (specimen) 07/15/2011 7:45 AM EDT 07/16/2011 2:32 PM EDT Narrative Resulting Agency Comment Spec In Lab Marilyn Reilly MD CHEMISTRY ORDERABL ES CERNER MILLENNIUM * (ABNORMAL) Protein, urine, 24 hour (07/15/2011 7:45 AM EDT) Protein Concentration, U24 <6 <=80 mg/dL CERNER MILLENNIUM Protein, 24 Hour Urine <0.18(H) <=0.15 gm/24hr CERNER MILLENNIUM Urine specimen (specimen) 07/15/2011 7:45 AM EDT 07/16/2011 2:32 PM EDT Narrative Resulting Agency Comment Spec In Lab Marilyn Reilly MD URINE ORDERABLES CERNER [employer] documented in this encounter Visit Diagnoses Diagnosis Diabetes mellitus- Primary Type II or unspecified type diabetes mellitus without mention of complication, not stated as uncontrolled Diabetes in Diabetes mellitus of mother, complicating , childbirth, or the puerperium, unspecified as to episode of care Unspecified high-risk documented in this encounter Care Teams Beef Lugger Relationship Specialty Start Date End Date Dav Carlos MD PCP - General 10/01/10 11/30/12 documented as of this encounter
--- OUTSIDE RECORDS SUMMARY | 2024-02-04 00:44 | XMS_ITS | Encounter Summary ---
Author Organization [facility] Address [facility] [place] [address] Care Team Providers Care Hose Operator Name Role Phone Dav Carlos MD Primary Care Provider [phone] Encounter Details Date Type Department Care Team (Latest Contact Info) Description 08/27/2011 10:07 AM EDT - 08/27/2011 11:59 PM EDT Hospital Encounter Non-[place] [id number] CARDIO, ECHO SIXTY MIN APPT None Lisette Elise MD [facility] OBSTETRICS [place] [address] Unspecified high-risk Discharge Disposition: Home Social History [...] ? HARISH Xiao ?(Age): 1980(31) Med Rec#: ?[id number] ? Sex: ?F ? [place] ? Ht / Wt: ??(cm)/(kg) ? Pt. Loc: ? Echo Lab ? BSA: ? Study Date: ?08/27/2011 ? Pt. Type: Outpatient Study Quality: ?Tape: ? Referring: Grover Elise Bolt Man: Yosef Frankel Diagnosis:CPT Code(s): ?? Echo Full (51619), ?? Doppler Full (92980), ??Color Doppler (05557), Indication(s): ??Maternal diabetes Rhythm: SUMMARY: 1. A [...] 08/28/2011 07:53:22 Images reviewed and interpretation verified [facility] Cardiac Ultrasound [facility] Procedure Note Percy Morales MD - 08/28/2011 Procedure: Pediatric Echocardiogram Patient: HARISH Xiao (Age): 1980(31) Med Rec#: [id number] Sex: F [place] [facility] Ht / Wt: (cm)/(kg) Pt. Loc: Echo Lab BSA: Study Date: 08/27/2011 Pt. Type: Outpatient Study Quality: Tape: Referring: Grover Elise Bolt Man: Yosef Frankel Diagnosis:CPT Code(s): Echo Full (14577), Doppler Full (47283), Color Doppler (60493), Indication(s): Maternal diabetes Rhythm: SUMMARY: 1. A [...] 08/28/2011 07:53:22 Images reviewed and interpretation verified [facility] Cardiac [facility] Marilyn Reilly MD ECHO ORDERABLES documented in this encounter Visit Diagnoses Diagnosis Unspecified high-risk documented in this encounter Care Teams Hose Operator Relationship Specialty Start Date End Date Dav Carlos MD PCP - General 10/01/10 11/30/12 documented as of this encounter
--- OUTSIDE RECORDS SUMMARY | 2024-02-04 00:44 | XMS_ITS | Encounter Summary ---
Author Organization [facility] [place] [address] Care Team Providers Care Photographic Process Worker Name Role Phone Dav Carlos MD Primary Care Provider [phone] Encounter Details Date Type Department Care Team (Latest Contact Info) Description 11/24/2011 10:00 AM EDT - 11/24/2011 11:59 PM EDT Hospital Encounter Ultrasound at [facility] [place] [address] Unspecified high-risk Social History Tobacco Use Types [...] 11/24/2011 10:38 am) Patient Info ID: ? [id number] ? : ??[birth year] (31 yrs) Name: ? MIGDALIA MOREIRA ? Visit Date: 11/24/2011 10:27 am Performed By Performed By: ?Melissa Villareal RDMS Attending: ? Gerardo PENALOZA, Crispin Bishop Referred By: ? MARILYN HOUSE MD Service(s) Provided UOBFOL - Efw - Growth - Reevaluation - Bermudez ?[id number] - [phone] Indications Efw, Growth Evaluation Num Of Fetuses: [...] Final 11/24/2011 10:38 am) Patient Info ID: [id number] : [birth year] (31 yrs) Name: MIGDALIA MOREIRA Visit Date: 11/24/2011 10:27 am Performed By Performed By: Melissa Villareal RDMS Attending: Crispin Carrillo MD Referred By: MARILYN HOUSE MD Service(s) Provided UOBFOL - Efw - Growth - Reevaluation - [place] [id number] - [phone] Indications Efw, Growth Evaluation Num Of Fetuses: [...] high-risk documented in this encounter Care Teams Photographic Process Worker Relationship Specialty Start Date End Date Dav Carlos MD PCP - General 10/01/10 11/30/12 documented as of this encounter
--- OUTSIDE RECORDS SUMMARY | 2024-02-04 00:44 | XMS_ITS | Encounter Summary ---
Author Organization [facility] [place] [place] [address] Care Team Providers Care Office Clin Asst Name Role Phone Dav Carlos MD Primary Care Provider [phone] Reason for Visit * Reason Comments Hypersomnia Obstructive Sleep Apnea Encounter Details Date Type Department Care Team ([facility] st Contact Info) Description 12/11/2010 8:30 AM EDT Follow-[place] [address] Marleen Taylor MD [facility] [place] [address] CADY (obstructive sleep apnea) (Primary Dx) Social [...] 30 y.o. 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
--- OUTSIDE RECORDS SUMMARY | 2024-02-04 00:44 | XMS_ITS | Encounter Summary ---
Author Organization Formerly [facility] [place] [address] Care Team Providers Care Grain Operator Name Role Phone Enoch Medina MD Primary Care Provider [phone] Encounter Details Date Type Department Care Team (Late st Contact Info) Description 03/03/2010 Orders Only Lab [facility] [place] [address] Alina Krishna MD OBSTETRICS & GYNECOLOGY Social [...] 4:11 PM EST) Surgical Pathology Report [id number] ? Location: 5L The signing pathologist has [...] report in rendering the final pathologic diagnosis. NAA GILMAN 03/03/2010 4:11 PM EST Alina Krishna MD PATHOLOGY/CYTOLOGY O RDERABLES ANA GILMAN documented in this encounter Visit Diagnoses Not on filedocumented in this encounter Care Teams Grain Operator Relationship Specialty Start Date End Date Enoch Medina MD [facility] [address] [place] [address] PCP - General Family Medicine 08/22/20 06/03/21 documented as of this encounter
--- OUTSIDE RECORDS SUMMARY | 2024-02-04 00:44 | XMS_ITS | Encounter Summary ---
Author Organization [facility] Address [facility] [place] [address] Care Team Providers Care De Ionizer Operator Name Role Phone Dav Carlos MD Primary Care Provider [phone] Encounter Details Date Type Department Care Team (Latest Contact Info) Description 10/13/2011 10:01 AM EDT - 10/13/2011 11:59 PM EDT Hospital [place] [phone] Marilyn Reilly MD [facility] [place] [address] Unspecified high-risk Discharge Disposition: Home Social History [...] AM EDT Unspecified high-risk TYPE AND SCREEN ([facility]) Routine 10/13/2011 10:02 AM EDT Unspecified high-risk documented in this encounter Results * DIFFERENTIAL, AUTOMATED (10/13/2011 10:14 AM EDT) Neutrophil % 68.5 34.0 - 71.0 % CERNER MILLENNIUM Neutrophil Absolute 5.66 1.50 - 6.30 x10(3)/mcL CERNER MILLENNIUM Lymph % 25.4 19.0 - 53.0 % CERNER MILLENNIUM Lymphocytes Abs 2.1 1.0 - 3.6 x10(3)/mcL CERNER MILLENNIUM Monocyte % 5.1 4.0 - 13.0 % CERNER MILLENNIUM Monocyte Abs 0.4 0.2 - 1.0 x10(3)/mcL CERNER MILLENNIUM Eos % 0.8 0.0 - 7.0 % CERNER [...] differential will be performed. Immature Gran Absolute 0.01 0.00 - 0.05 x10(3)/mcL CERNER MILLENNIUM Blood specimen (specimen) 10/13/2011 10:14 AM EDT 10/13/2011 10:21 AM EDT Marilyn Reilly MD HEMATOLOGY ORDERAB LES ANA FERNÁNDEZIUM * ANTIBODY SCREEN (10/13/2011 10:14 AM EDT) Ab Screen Interp Negative CERNER MAXXENNIUM Expires at [id number] on: [id number] CERNER MILLENNIUM Blood specimen (specimen) 10/13/2011 10:14 AM EDT 10/13/2011 12:03 PM EDT Narrative Resulting Agency Comment Spec In Lab Marilyn Reilly MD BLOOD BANK LAB ORD ERABLES ANA FERNÁNDEZIUM * ABO/RH TYPING (10/13/2011 10:14 AM EDT) Pathologist [facility] ABORH Type A Neg CERNANCY LILLYENNIUM Blood specimen (specimen) 10/13/2011 10:14 AM EDT 10/13/2011 12:03 PM EDT Narrative Resulting Agency Comment Spec In Lab Marilyn Reilly MD BLOOD BANK LAB ORD ERABLES Performing Organization Address City/[facility]/ZIP Co de Phone Number ANA FERNÁNDEZIUM * CBC (with Diff) (10/13/2011 10:14 AM EDT) White Blood Cell 8.3 4.0 - 10.0 x10(3)/mcL CERNER MILLENNIUM Red Blood Cell 3.99 3.93 - 5.22 x10(6)/mcL CERNER MILLENNIUM Hemoglobin 12.5 11.2 - 15.7 gm/dL CERNER MILLENNIUM Hematocrit 35.7 34.0 - 45.0 % CERNER MILLENNIUM Mean Cell Volume 89.5 79.0 - 94.0 fL CERNER MILLENNIUM Mean Cell Hemoglobin 31.3 26.6 - 32.2 pg CERNER MILLENNIUM Mean Cell Hemoglobin Concentration 35.0 32.0 - 36.5 gm/dL CERNER MILLENNIUM Platelet 157 145 - 370 x10(3)/mcL CERNER MILLENNIUM RDW Standard Deviation 43.0 35.0 - 46.0 fL CERNER MILLENNIUM RDW coefficient of variation 13.2 10.9 - 14.4 % [facility] Mean Platelet Volume 9.7 9.0 - 12.0 fL [facility] Blood specimen (specimen) 10/13/2011 10:14 AM EDT 10/13/2011 10:21 AM EDT Narrative Resulting Agency Comment Spec In Lab Marilyn Reilly MD HEMATOLOGY ORDERAB LES [facility] documented in this encounter Visit Diagnoses Diagnosis Unspecified high-risk documented in this encounter Care Teams De Ionizer Operator Relationship Specialty Start Date End Date Dav Carlos MD PCP - General 10/01/10 11/30/12 documented as of this encounter
--- OUTSIDE RECORDS SUMMARY | 2024-02-04 00:44 | XMS_ITS | Encounter Summary ---
Author Organization [facility] [place] [address] Care Team Providers Care Janitor Helper Name Role Phone Dav Carlos MD Primary Care Provider [phone] Encounter Details Date Type Department Care Team (Late st Contact Info) Description 07/02/2010 Abstract Obstetrics [place] [address] Alina Krishna MD [facility] [address] OBSTETRICS [place] [address] Social History Tobacco Use Types Packs/Day Years [...] on filedocumented in this encounter Care Teams Janitor Helper Relationship Specialty Start Date End Date Dav Carlos MD PCP - General 10/01/10 11/30/12 documented as of this encounter
--- OUTSIDE RECORDS SUMMARY | 2024-02-04 00:44 | XMS_ITS | Encounter Summary ---
Author Organization [facility] [place] [address] Care Team Providers Care Sponsorship Manager Name Role Phone Dav Carlos MD Primary Care Provider Reason for Visit * Reason Comments Hypersomnia Encounter Details Date Type Department Care Team ([facility] Contact Info) Description 12/10/2010 8:00 PM EDT Procedure [place] [address] Marleen Taylor MD [facility] [place] [address] CADY (obstructive sleep apnea) (Primary Dx) Social [...] Study Date: 12/10/2010 Sex: Female Subject Code: [id number] Date of : 1980 Referring Physician: Dav [...] 0.0% 0.0% 0.0% 0.0% 0.0% <= 50%: 0.0% 0.0% 0.0% 0.0% 0.0% % [...] 60 (bpm): 53.6% 77.9% 42.4% 71.5% 71.1% <= 50 (bpm): 0.0% 7.5% 0.4% 6.2% 6.1% % Artifact / Bad Data: 0.0% 0.0% 0.0% 0.0% 0.0% documented in this encounter Plan of Treatment Not on file documented as of this encounter Visit Diagnoses Diagnosis CADY (obstructive sleep apnea)- Primary Obstructive sleep apnea (adult) (pediatric) documented in this encounter Care Teams Sponsorship Manager Relationship Specialty Start Date End Date Dav Carlos MD PCP - General 10/01/10 11/30/12 documented as of this encounter
--- OUTSIDE RECORDS SUMMARY | 2024-02-04 00:44 | XMS_ITS | Encounter Summary ---
Author Organization Formerly [facility] [place] [address] Care Team Providers Care Test Worker Name Role Phone Dav Carlos MD Primary Care Provider [phone] Reason for Visit * Reason Comments Routine Visit Encounter Details Date Type Department Care Team ([facility] st Contact Info) Description 11/24/2011 11:15 AM EDT Routine Obstetrics [place] [phone] CLINIC, Marilyn Benites MD [facility] OBSTETRICS [place] [address] GA: 34w1d Discharge Disposition: Home Social History [...] Final 12/18/2011 11:15 am) Patient Info ID: ?[id number] ?: ??[birth year] (31 yrs) Name: ?MIGDALIA MOREIRA ?Visit Date: 12/18/2011 08:57 am Performed By Performed By: ?Melissa Villareal RDMS Attending: ? Arik PENALOZA, E ??Valerie Referred By: ? MARILYN HOUSE MD Service(s) Provided UOBFOL - Efw - Growth - Reevaluation - Bermudez ?[id number] - [id number] Indications Reason for exam and clinical history: [...] Final 12/18/2011 11:15 am) Patient Info ID: [id number] : [birth year] (31 yrs) Name: MIGDALIA MOREIRA Visit Date: 12/18/2011 08:57 am Performed By Performed By: Melissa Villareal [facility] Attending: Lisette Elise MD Referred By: MARILYN HOUSE MD Service(s) Provided UOBFO - [facility] - Growth - Reevaluation - B[place]z [phone] - [id number] Indications Reason for exam and clinical history: [...] high-risk documented in this encounter Care Teams Test Worker Relationship Specialty Start Date End Date Dav Carlos MD PCP - General 10/01/10 11/30/12 documented as of this encounter
--- OUTSIDE RECORDS SUMMARY | 2024-02-04 00:44 | XMS_ITS | Encounter Summary ---
Author Organization [facility] [place] [address] Care Team Providers Care Corn Press Operator Name Role Phone Dav Carlos MD Primary Care Provider [phone] Reason for Visit * Reason Comments Routine Visit Encounter Details Date Type Department Care Team ([facility] st Contact Info) Description 11/10/2011 9:00 AM EDT Routine Obstetrics [place] [address] Marilyn House MD [facility] DR OBSTETRICS [place] [address] GA: 32w1d Discharge Disposition: Home Social History [...] 11/24/2011 10:38 am) Patient Info ID: ? [id number] ? : ??[birth year] (31 yrs) Name: ? MIGDALIA MOREIRA ? Visit Date: 11/24/2011 10:27 am Performed By Performed By: ?Melissa Villareal RDMS Attending: ? Gerardo PENALOZA, Crispin Bishop Referred By: ? MARILYN HOUSE MD Service(s) Provided UOBFOL - Efw - Growth - Reevaluation - Bermudez ?[id number] - [id number] Indications Efw, Growth Evaluation Num Of Fetuses: [...] Final 11/24/2011 10:38 am) Patient Info ID: [id number] : [birth year] (31 yrs) Name: MIGDALIA MOREIRA Visit Date: 11/24/2011 10:27 am Performed By Performed By: Melissa Villareal RDMS Attending: Crispin Carrillo MD Referred By: MARILYN HOUSE MD Service(s) Provided UOBFOL - Efw - Growth - Reevaluation - [place] [phone] - [phone] Indications Efw, Growth Evaluation Num Of Fetuses: [...] high-risk documented in this encounter Care Teams Corn Press Operator Relationship Specialty Start Date End Date Dav Carlos MD PCP - General 10/01/10 11/30/12 documented as of this encounter
--- OUTSIDE RECORDS SUMMARY | 2024-02-04 00:44 | XMS_ITS | Encounter Summary ---
Author Organization [facility] [place] [address] Care Team Providers Care Biomass Technician Name Role Phone Dav Carlos MD Primary Care Provider [phone] Reason for Visit * Reason Comments Routine Visit Encounter Details Date Type Department Care Team ([facility] st Contact Info) Description 09/10/2011 3:15 PM EDT Routine Obstetrics [place] [address] Marilyn Reilly MD [facility] [address] OBSTETRICS [place] [address] GA: 23w3d Discharge Disposition: Home Social History [...] (if applicable) along with the Guide to [place] was given to the patient. The materials [...] of variation 13.2 10.9 - 14.4 % CERNER MILLENNIUM Mean Platelet Volume 9.7 9.0 - 12.0 fL CERNER MILLENNIUM Blood specimen (specimen) 10/13/2011 10:14 AM EDT 10/13/2011 10:21 AM EDT Narrative Resulting Agency Comment Spec In Lab Marilyn Reilly MD HEMATOLOGY ORDERAB LES [facility] documented in this encounter Visit Diagnoses Diagnosis Unspecified high-risk documented in this encounter Care Teams Biomass Technician Relationship Specialty Start Date End Date Dav Carlos MD PCP - General 10/01/10 11/30/12 documented as of this encounter
--- OUTSIDE RECORDS SUMMARY | 2024-02-04 00:44 | XMS_ITS | Encounter Summary ---
Author Organization [facility] Address [facility] [place] [address] Care Team Providers Care Non Linear Editor Name Role Phone Dav Carlos MD Primary Care Provider Encounter Details Date Type Department Care Team (Latest Contact Info) Description 10/06/2011 11:50 AM EDT - 10/06/2011 11:59 PM EDT Hospital Encounter Non-[place] [address] CARDIO, ECHO SIXTY MIN APPT None Lisette Elise MD [facility] OBSTETRICS [place] [address] Diabetes in Discharge Disposition: Home Social History [...] ? HARISH Xiao ?(Age): 1980(31) Med Rec#: ?[id number] ? Sex: ?F ? [place] [place] Ht / Wt: ??(cm)/(kg) ? Pt. Loc: ? Echo Lab ? BSA: ? Study Date: ?10/06/2011 ? Pt. Type: Outpatient Study Quality: ?Tape: ? Referring: Marilyn Reilly Wood Carver Hand: Yosef Frankel Diagnosis:CPT Code(s): ??Doppler LTD (96255), ?? Echo F/U (31392), Color Doppler (11355), Indication(s): ??Maternal diabetes Rhythm: SUMMARY: 1. A [...] 10/06/2011 13:02:08 Images reviewed and interpretation verified [facility] Cardiac Ultrasound Laboratory Procedure Note Percy Morales MD - 10/06/2011 Procedure: Pediatric Echocardiogram Patient: HARISH Xiao (Age): 1980(31) Med Rec#: [id number] Sex: F [place] Loc[place] [facility] Ht / Wt: (cm)/(kg) Pt. Loc: Echo Lab BSA: Study Date: 10/06/2011 Pt. Type: Outpatient Study Quality: Tape: Referring: Marilyn Reilly Wood Carver Hand: Yosef Frankel Diagnosis:CPT Code(s): Doppler LTD (78329), Echo F/U (58848), Color Doppler (24959), Indication(s): Maternal diabetes Rhythm: SUMMARY: 1. 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
--- OUTSIDE RECORDS SUMMARY | 2024-02-04 00:44 | XMS_ITS | Encounter Summary ---
Author Organization [facility] [place] [address] Care Team Providers Care Piano Professor Name Role Phone Dav Carlos MD Primary Care Provider [phone] Reason for Visit * Reason Comments Routine Visit Encounter Details Date Type Department Care Team (Latest Contact Info) Description 11/17/2011 10:30 AM EDT Routine Obstetrics [place] [address] Lisette Elise MD [facility] DR OBSTETRICS [place] [address] GA: 33w1d Discharge Disposition: Home Social History [...] uncontrolled documented in this encounter Care Teams Piano Professor Relationship Specialty Start Date End Date Dav Carlos MD PCP - General 10/01/10 11/30/12 documented as of this encounter
--- OUTSIDE RECORDS SUMMARY | 2024-02-04 00:44 | XMS_ITS | Encounter Summary ---
Author Organization [facility] [place] [address] Care Team Providers Care Sales Analytics Manager Name Role Phone Dav Carlos MD Primary Care Provider [phone] Encounter Details Date Type Department Care Team (Latest Contact Info) Description 08/11/2011 9:25 AM EDT - 08/11/2011 11:59 PM EDT Hospital Encounter Ultrasound at [facility] [place] [address] Unspecified high-risk Social History Tobacco Use Types [...] 08/11/2011 11:09 am) Patient Info ID: ? [id number] ? : ??[birth year] (31 yrs) Name: ? MIGDALIA MOREIRA ? Visit Date: 08/11/2011 10:21 am Performed By Performed By: ?Caryl Yepez [facility] Associate: ? Perri PENALOZA, Elvia Turner Attending: ? Arik PENALOZA, E ??Valerie Referred By: ? PHUONG SANTIAGO MD Service(s) Provided UOBS - Screening Morphology - [id number] ? 29597 UOBTV - Viability - Cervical Length - Transvaginal - ??81632 [id number] Indications Screening Morphology Evaluation Num Of Fetuses: [...] Final 08/11/2011 11:09 am) Patient Info ID: [id number] : [birth year] (31 yrs) Name: MIGDALIA MOREIRA Visit Date: 08/11/2011 10:21 am Performed By Performed By: Caryl Yepez [facility] Associate: Elvia Rayo MD Attending: Lisette Elise MD Referred By: PHUONG SANTIAGO MD Service(s) Provided UOBS - Screening Morphology - [id number] UOBTV - Viability - Cervical Length - Transvaginal - 23783 [id number] Indications Screening Morphology Evaluation Num Of Fetuses: [...] high-risk documented in this encounter Care Teams Sales Analytics Manager Relationship Specialty Start Date End Date Dav Carlos MD PCP - General 10/01/10 11/30/12 documented as of this encounter
--- OUTSIDE RECORDS SUMMARY | 2024-02-04 00:44 | XMS_ITS | Encounter Summary ---
Author Organization [facility]ly [facility] [place] [address] Care Team Providers Care Work Adjustment Instructor Name Role Phone Dav Carlos MD Primary Care Provider [phone] Reason for Visit * Reason Comments Non-stress Test Encounter Details Date Type Department Care Team (Latest Contact Info) Description 11/20/2011 2:30 PM EDT Routine Obstetrics and Gynecology at [facility] [place] [address] Alexandre Powers RN GA: 33w4d Discharge Disposition: [...] status documented in this encounter Care Teams Work Adjustment Instructor Relationship Specialty Start Date End Date Dav Carlos MD PCP - General 10/01/10 11/30/12 documented as of this encounter
--- OUTSIDE RECORDS SUMMARY | 2024-02-04 00:44 | XMS_ITS | Encounter Summary ---
Author Organization [facility] [place] [address] Care Team Providers Care Manager Fine Name Role Phone Dav Carlos MD Primary Care Provider [phone] Encounter Details Date Type Department Care Team (Latest Contact Info) Description 05/29/2011 10:30 AM EST - 05/29/2011 11:59 PM [facility] Hospital Encounter Ultrasound at [facility] [place] [address] High-risk supervision Social History Tobacco Use Types [...] 05/29/2011 11:02 am) Patient Info ID: ? [id number] ? : [birth year] (31 yrs) Name: ? MIGDALIA MOREIRA ? Visit Date: 05/29/2011 10:56 am Performed By Performed By: ?Caryl Yepez RDMS Attending: ? Arik PENALOZA, E ??Valerie Referred By: ? AMINA MOCK MD Service(s) Provided UOBTV - Viability - Cervical Length - Transvaginal - ??74105 [phone] Indications Viability, transvaginal Evaluation Num Of Fetuses: [...] Final 05/29/2011 11:02 am) Patient Info ID: [id number] : [birth year] (31 yrs) Name: MIGDALIA MOREIRA Visit Date: 05/29/2011 10:56 am Performed By Performed By: Caryl Yepez [facility] Attending: Lisette Elise MD Referred By: AMINA MOCK MD Service(s) Provided UOBTV - Viability - Cervical Length - Transvaginal - [id number] [phone] Indications Viability, transvaginal Evaluation Num Of Fetuses: [...] documented in this encounter Care Teams Manager Fine Relationship Specialty Start Date End Date Dav Carlos MD PCP - General 10/01/10 11/30/12 documented as of this encounter
--- OUTSIDE RECORDS SUMMARY | 2024-02-04 00:44 | XMS_ITS | Encounter Summary ---
Author Organization [facility] [place] [address] Care Team Providers Care Freight Receiver Name Role Phone Dav Carlos MD Primary Care Provider [phone] Encounter Details Date Type Department Care Team (Latest Contact Info) Description 10/13/2011 10:25 AM EDT - 10/13/2011 11:59 PM EDT Hospital Encounter Ultrasound at [facility] [place] [place] [address] Supervision of high-risk ; Diabetes mellitus Social [...] 10/13/2011 11:40 am) Patient Info ID: ? [id number] ? : [birth year] (31 yrs) Name: ? MIGDALIA MOREIRA ? Visit Date: 10/13/2011 11:28 am Performed By Performed By: ?Neda Hernandez [facility] Attending: ? Arik PENALOZA, Lisette ??Valerie Referred By: ? JULIEN ELIZABETH MD Service(s) Provided UOBFOL - Efw - Growth - Reevaluation - Bermudez ?66366 - [id number] Indications Efw, Growth IDDM; Evaluation Num Of [...] to participate in the care of MIGDALIA OMREIRA. Please do not hesitate to call if you have any questions. ? Lisette Elise MD Electronically Signed Final Report ?? 10/13/2011 11:40 am Procedure Note Lisette Elise MD - 10/14/2011 OBSTETRICS REPORT (Signed Final 10/13/2011 11:40 am) Patient Info ID: [id number] : [birth year] (31 yrs) Name: MIGDALIA MOREIRA Visit Date: 10/13/2011 11:28 am Performed By Performed By: Neda Hernandez [facility] Attending: Lisette Elise MD Referred By: JULIEN ELIZABETH MD Service(s) Provided UOBFOL - Efw - Growth - Reevaluation - [place] 69343 - [id number] Indications Efw, Growth IDDM; Evaluation Num Of [...] uncontrolled documented in this encounter Care Teams Freight Receiver Relationship Specialty Start Date End Date Dav Carlos MD PCP - General 10/01/10 11/30/12 documented as of this encounter
--- OUTSIDE RECORDS SUMMARY | 2024-02-04 00:44 | XMS_ITS | Encounter Summary ---
Author Organization [facility] [place] [address] Care Team Providers Care Yeast Stacker Name Role Phone Dav Carlos MD Primary Care Provider [phone] Reason for Visit * Reason Comments Routine Visit Encounter Details Date Type Department Care Team (Latest Contact Info) Description 05/14/2011 10:00 AM EST Initial Obstetrics [place] [address] Amina Mock MD [facility] DR OBSTETRICS [place] [address] GA: 6w3d Discharge Disposition: Home Social History [...] 05/29/2011 11:02 am) Patient Info ID: ? [id number] ? : ??[birth year] (31 yrs) Name: ? MIGDALIA MOREIRA ? Visit Date: 05/29/2011 10:56 am Performed By Performed By: ?Caryl Yepez RDMS Attending: ? Arik PENALOZA, E ??Valerie Referred By: ? AMINA MOCK MD Service(s) Provided UOBTV - Viability - Cervical Length - Transvaginal - ??[id number] [id number] Indications Viability, transvaginal Evaluation Num Of Fetuses: [...] Final 05/29/2011 11:02 am) Patient Info ID: [id number] : [birth year] (31 yrs) Name: MIGDALIA MOREIRA Visit Date: 05/29/2011 10:56 am Performed By Performed By: Caryl Yepez [facility] Attending: Lisette Elise MD Referred By: AMINA MOCK MD Service(s) Provided UOBTV - Viability - Cervical Length - Transvaginal - [id number] Indications Viability, transvaginal Evaluation Num Of Fetuses: [...] ? Ordered By: AMINA MOCK ? MR#: [id number] ?LOC: ??5L ? /Sex: ?? 8 (31 years), ? Female ? PROCEDURE: Urine Culture ?SOURCE: U CC ? COLLECTED: 05/14/2011 10:00 ? STARTED: 05/14/2011 16:49 ? FINAL REPORT ? Final Report ? Verified: 15:10 ? No growth (Less than 1,000 cfu/ml). ? ____ [facility] Urine specimen obtained by clean catch procedure (specimen) 05/14/2011 10:00 AM EST 05/14/2011 4:49 PM EST Amina Mock MD MICROBIOLOGY - GENER AL ORDERABLES [facility] documented in this encounter Visit Diagnoses Diagnosis High-risk supervision- Primary Unspecified high-risk Supervision of high-risk Unspecified high-risk Hypertension Unspecified essential hypertension Diabetes mellitus complicating , antepartum Diabetes mellitus, antepartum Obstructive sleep apnea Obstructive sleep apnea (adult) (pediatric) High-risk supervision Unspecified high-risk documented in this encounter Care Teams Yeast Stacker Relationship Specialty Start Date End Date Dav Carlos MD PCP - General 10/01/10 11/30/12 documented as of this encounter
--- OUTSIDE RECORDS SUMMARY | 2024-02-04 00:45 | XMS_ITS | Encounter Summary ---
Author Organization [facility] Address [address] [place] [address] Care Team Providers Care Operating Room Surgical Technologist Name Role Phone Unknown, Provider Primary Care Provider Trice Holman Primary Care Provider [phone] Encounter Details Date Type Department Care Team (Latest Contact Info) Description 09/15/2022 Lab Requisition [facility] Pathology & Laboratory Medicine - [facility] [address] [place] [address] Rosalva Valdez FNP [address] [facility] [address] [place] [address] Encounter for general adult medical [...] PCR Negative Negative 10/01/2022 13:45 EDT [facility] HPV18/45 RNA (HPV18/45) Negative Negative 10/01/2022 13:45 EDT [facility] Papanicolaou smear specimen (specimen) CERVIX UTERI STRUCTURE / Unknown 09/11/2022 11:30 EDT 09/30/2022 9:55 EDT Rosalva Valdez [facility] MICROBIOLOGY - GENER AL ORDERABLES [facility] [address] [place] [address] * (ABNORMAL) HUMAN PAPILLOMAVIRUS (HPV) DETECTION-HIGH RISK TYPES (09/11/2022 11:30 EDT) HPV other High Risk types, PCR Positive( A) Negative 10/01/2022 13:45 EDT [facility] Comment:E6 OR E7 mRNA from o ne or more types of HPV types 16,18,31,33,35,39,45,51,52,56,58,59,66, and 68 is detected by inspector of dredging mediated amplification. High and intermediate risk HPV types are associated with most squamous intraepithelial lesions and cervical cancers. Papanicolaou smear specimen (specimen) CERVIX UTERI STRUCTURE / Unknown 09/11/2022 11:30 EDT 09/30/2022 9:55 EDT Rosalva [facility] MICROBIOLOGY - GENER AL ORDERABLES [facility] [address] [place] [address] * PAP TEST (09/11/2022 11:30 EDT) Specimens A. Cervix and/or Endocervix , ThinPrep Imaging System with Manual Evaluation 10/01/2022 13:45 EDT [facility] Specimen Adequacy Satisfactory for Evaluation - transformation zone component present Scant due to excessive blood 10/01/2022 13:45 EDT [facility] General Categorization Negative for intraepithelial lesion or malignancy 10/01/2022 13:45 T [facility] Attestation . 10/01/2022 13:45 [facility] at 1345 Clinical History See below 10/02/19 13:45 T [facility] HPV The result for the Human Papillomavirus (HPV) Detection-High Risk Types is Positive . E6 OR E7 mRNA from one or more types of HPV types 16,18,31,33,35,39 ,45,51,52,56,58,5 9,66, and 68 is detected by inspector of dredging mediated amplification. High and intermediate risk HPV types are associated with most squamous intraepithelial lesions and cervical cancers. Testing was performed on specimen [id number] and was resulted on 09/30/2022 1647 EDT by FLORIAN, LAB INSTRUMENT RESULTS IN 10/01/2022 13:45 T [facility] Genotyping 16 & 18/45 The results for the HPV Genotypes 16 and 18/45 are Negative for the HPV16 RNA and Negative for the HPV18/45 RNA (HPV18/45). Testing was performed on specimen [id number] and was resulted on 10/01/2022 1345 EDT by FLORIAN, LAB INSTRUMENT RESULTS IN 10/01/2022 13:45 EDT [facility] Performing Lab [facility] 10/01/2022 13:45 T [facility] Scanned Images 10/01/2022 13:45 EDT [facility] Papanicolaou smear specimen (specimen) CERVIX UTERI STRUCTURE / Unknown 09/11/2022 11:30 EDT 09/16/2022 12:32 EDT Rosalva [facility]EDRO PATHOLOGY ORDERABLES Performing Organization Address City/[facility] Co de Phone Number [facility] [address] [place] [address] * CHLAMYDIA/N. GONORRHOEAE AMPLIFIED RNA, THINPREP (09/11/2022 11:30 EDT) Neisseria gonorrhoeae Result Negative Negative 09/16/2022 14:31 EDT [facility] Chlamydia trachomatis Result Negative Negative 09/16/2022 14:31 EDT [facility] Papanicolaou smear specimen (specimen) CERVIX UTERI STRUCTURE / Unknown 09/11/2022 11:30 EDT 09/16/2022 9:34 EDT Rosalva PEDRO MICROBIOLOGY - GENER AL ORDERABLES Performing Organization Address City/[facility] Co de Phone Number [facility] [address] [place] [address] documented in this encounter Visit Diagnoses Diagnosis Encounter for general adult medical examination without abnormal findings Unspecified general medical examination Encounter for screening for malignant neoplasm of cervix Screening for malignant neoplasm of the cervix Encounter for screening for human papillomavirus (HPV) Special screening examination for human papillomavirus (HPV) documented in this encounter Care Teams Operating Room Surgical Technologist Relationship Specialty Start Date End Date Unknown, Provider, PCP - General 02/20/15 01/16/23 Trice Holman [place] [place] [address] PCP - General 01/17/23 documented as of this encounter
--- OUTSIDE RECORDS SUMMARY | 2024-02-04 00:45 | XMS_ITS | Clinical Summary ---
Author Organization [facility] Address [address] [place] [address] Care Team Providers Care Plan Rep Name Role Phone Trice Holman MAYELA Primary Care Provider [phone] Social History Tobacco Use Types Packs/Day Years [...] [facility] [address] [place] [address] from Last 3 Months or Most Recently Relevant to Health Maintenance Care Teams Plan Rep Relationship Specialty Start Date End Date Trice Holman [place] [address] [address] [place] [address] PCP - General 01/17/23
--- OUTSIDE RECORDS SUMMARY | 2024-02-04 00:45 | XMS_ITS | Referral Summary ---
Author Organization [facility] Address [address] [place] [address] Care Team Providers Care Bruise Trimmer Name Role Phone Trice Holman MAYELA Primary Care Provider [phone] Social History Tobacco Use Types Packs/Day Years [...] C Antibody Negative Negative 09/14/2022 10:09 EDT [facility] Blood VENOUS BLOOD / Unknown 09/11/2022 12:04 EDT 09/12/2022 21:24 EDT Provider Outr Resulting Lab CHEMISTRY & BLOOD GAS ORDERABLES [facility] [address] [place] [address] from Last 3 Months or Most Recently Relevant to Health Maintenance Care Teams Bruise Trimmer Relationship Specialty Start Date End Date Trice Holman FNP [address] [place], [place] [id number] PCP - General 01/17/23
--- OUTSIDE RECORDS SUMMARY | 2024-02-04 00:45 | XMS_ITS | Encounter Summary ---
Author Organization [facility] Address [address] [place] [address] Care Team Providers Care Cascade Operator Name Role Phone Trice Holman Primary Care Provider [phone] Encounter Details Date Type Department Care Team (Late st Contact Info) Description 01/30/2023 Lab Requisition [facility] Pathology & Laboratory Medicine - [address] [address] Jennie Villegas MD [address] [place] [phone] Encounter for other general examination Social History [...] management options, if applicable. 02/03/2023 9:13 EDT [facility] Final Diagnosis A. CERVIX, BRUSH: -Low-grade squamous intra-epithelial lesion (VERONICA 1). See comment. 02/03/2023 9:13 [facility] Diagnosis Comment Immunoperoxidase stains were performed on this case to further characterize the lesion. ANTIBODY(CLONE)(BL OCK):RESULT P16 (E6H4TM, [place]) (A1): Negative NOTE: One or more of [...] performance characteristics have been determined by [facility] and/or by the referring laboratory. The [...] high complexity clinical laboratory testing. 02/03/2023 9:13 [facility] Attestation By the signature below, the attending physician certifies that they have 1) personally conducted a gross and/or microscopic examination of the described specimen(s), and/or personally interpreted the results of laboratory testing of the described specimen(s), and 2) personally rendered or confirmed the above diagnosis. 02/03/2023 9:13 [facility] at 0913 Clinical History +HR HPV 02/03/2023 9:13 [facility] Gross Description A. Received in formalin, on a Histologic S-100 brush, labelled with proper patient identification (initials C, M) and cervical is a 0.4 x 0.2 x 0.2 cm aggregate of corona tissue. The specimen is entirely submitted in A1. ABEL DIAZ(ASCP) 02/01/2023 8:59 02/03/2023 9:13 [facility] Performing Lab [facility] 9:13 [facility] Scanned Images 02/03/2023 9:13 EDT [facility] Tissue CERVIX UTERI STRUCTURE / Unknown 01/29/2023 11:10 EDT 01/30/2023 8:09 EDT Jennie Villegas MD PATHOLOGY ORDERABLES [facility] [address] [place] [address] documented in this encounter Visit Diagnoses Diagnosis Encounter for other general examination documented in this encounter Care Teams Cascade Operator Relationship Specialty Start Date End Date Trice [place] [address] PCP - General 01/17/23 documented as of this encounter
--- OUTSIDE RECORDS SUMMARY | 2024-02-04 00:45 | XMS_ITS | Encounter Summary ---
Author Organization [facility] Address [address] [place] [address] Care Team Providers Care Body Mechanic Name Role Phone Unavailable Primary Care Provider Unavailabl e Encounter Details Date Type Department Care Team (Late st Contact Info) Description 02/18/2005 Results Only [facility] - Maple conversion [address] [place] [address] Benedict Corona MD [address] [place] [address] Social History Tobacco Use Types [...] ? MIGDALIA MONCADA ? Accession #: ? [id number] ? : ? 1980 (Age: 24) ??F [...] x 2.8 cm. ??The serosal surface is coorna-pink, smooth and glistening. The pericystic duct lymph [...] wall measures 0.2 cm in maximum thickness. Skating Rink Manager sections are submitted as follows: BLOCK DE LA ROSA A1 ?Cystic duct node bisected A2 ?Skating Rink Manager sections of cystic duct surgical margin, body and fundus (Dr. Acevedo)/[facility] End of Report [facility] 02/18/2005 02/18/2005 15: 17 EST Benedict Corona MD PATHOLOGY ORDERABLES [facility] [address] [place] [address] documented in this encounter Visit Diagnoses Not on filedocumented in this encounter
--- OUTSIDE RECORDS SUMMARY | 2024-02-04 00:45 | XMS_ITS | Encounter Summary ---
Author Organization [facility] Address [address] [place] [address] Care Team Providers Care Social Work Coordinator Name Role Phone Unavailable Primary Care Provider Unavailabl e Encounter Details Date Type Department Care Team (Late st Contact Info) Description 05/28/2005 Results Only [facility] - Maple conversion [address] [place] [address] Neda Barger, [facility] [address] [place] [phone] Social History Tobacco Use Types Packs/Day [...] cancers. [facility] Report Status Final [id number] [facility] 05/28/2005 11:5 8 EST 06/08/2005 9:07 EST Neda Barger EXECUTIVE STAFF ASSISTANT MICROBIOLOGY - GENER AL ORDERABLES [facility] [address] [place] [address] * CYTOPATHOLOGY (05/28/2005 0:00 EST) Pathology Report: CYTOPATHOLOGY REPORT Reports generated via electronic interface contain original data; however they are lacking the format of the original report. Caution should be taken when reading/interpreti ng unformatted reports. Name: ? MIGDALIA MONACDA ? Accession #: ? [id number] : ? 1980 (Age: 25) ??F ?Collect Date: ? 05/28/2005 Location: ? [facility] ? Receive Date: ? 05/29/2005 Provider: ?NEDA BARGER EXECUTIVE STAFF ASSISTANT Copy to: ? Specimen/Source: ?ThinPrep Pap Test, Cervix/Endocervix, processed on Dedicated Devices ThinPrep Imaging System, with manual evaluation Last Menstrual Period: ? 05/05/05 Other: ? HPVA - HPV testing requested if ASC-US on the current ThinPrep Pap test. ? SPECIMEN ADEQUACY ? Satisfactory for Evaluation - transformation zone component present GENERAL CATEGORIZATION ? Epithelial Cell Abnormality INTERPRETATION ? Squamous Cell Abnormality - Atypical squamous cells, undetermined significance. EDUCATIONAL NOTES/RECOMMENDATI ONS ? [facility] recommends following the 2001 Consensus Guidelines for the Management of Women with Cervical Cytological Abnormalities (PATRICA,2002;287:212 0-9). Management algorithms have been distributed by [facility] and are available online at www.ASCCP.org. ? Document reviewed and electronically signed by: ? MAIA OVALLE MD ? Report Date: ??06/06/2005 15:30 End of Report [facility] 05/28/2005 05/29/2005 Neda Barger EXECUTIVE STAFF ASSISTANT PATHOLOGY ORDERABLES [facility] [address] [place] [address] documented in this encounter Visit Diagnoses Not on filedocumented in this encounter
--- OUTSIDE RECORDS SUMMARY | 2024-02-04 00:45 | XMS_ITS | Encounter Summary ---
Author Organization [facility] Address [address] [place] [address] Care Team Providers Care Asset Manager Name Role Phone Unknown, Provider Primary Care Provider [phone] Trice Holman Primary Care Provider [phone] Encounter Details Date Type Department Care Team (Late st Contact Info) Description 09/12/2022 Lab Requisition [facility] Pathology & Laboratory Medicine - [facility] [address] [place] [address] Outr Resulting Lab, Provider Social History Tobacco [...] 4th Generation Negative Negative 09/14/2022 9:52 EDT [facility] Comment:If acute HIV-1 infec tion is suspected in a high risk patient, submit plasma specimen for HIV-1 RNA quantitation test. Blood VENOUS BLOOD / Unknown 09/11/2022 12:04 EDT 09/12/2022 21:23 EDT Narrative [facility] - 09/14/2022 9:52 EDT Fourth Generation assay performed on the Siemens Centaur XPT. Provider Outr Resulting Lab IMMUNOLOGY A ND SEROLOGY ORDERABLES [facility] [address] [place] [address] documented in this encounter Visit Diagnoses Not on filedocumented in this encounter Care Teams Asset Manager Relationship Specialty Start Date End Date Unknown, Provider, PCP - General 02/20/15 01/16/23 Trice Holman FNP [facility] [place] [address] PCP - General 01/17/23 documented as of this encounter
--- OUTSIDE RECORDS SUMMARY | 2024-02-04 00:45 | XMS_ITS | Encounter Summary ---
Author Organization [facility] Address [address] [place] [address] Care Team Providers Care Headmaster/Mistress Name Role Phone Unknown, Provider Primary Care Provider [phone] Trice Holman Primary Care Provider [phone] Encounter Details Date Type Department Care Team (Late st Contact Info) Description 09/12/2022 Lab Requisition [facility] Pathology & Laboratory Medicine - [facility] [address] [place] [address] Outr Resulting Lab, Provider Social History Tobacco [...] Negative Negative 09/14/2022 10:09 EDT [facility] Blood VENOUS BLOOD / Unknown 09/11/2022 12:04 EDT 09/12/2022 21:24 EDT Provider Outr Resulting Lab IMMUNOLOGY A ND SEROLOGY ORDERABLES Performing Organization Address City/[facility]/ZIP Co de Phone Number [facility] [address] [place] [address] * HEPATITIS C AB W REFLEX TO HCV RNA BY PCR (09/11/2022 12:04 EDT) Hep C Antibody Negative Negative 09/14/2022 10:09 EDT [facility] Blood VENOUS BLOOD / Unknown 09/11/2022 12:04 EDT 09/12/2022 21:24 EDT Provider Outr Resulting Lab CHEMISTRY & BLOOD GAS ORDERABLES Performing Organization Address City/[facility] Co de Phone Number [facility] [address] [place] [address] documented in this encounter Visit Diagnoses Not on filedocumented in this encounter Care Teams Headmaster/Mistress Relationship Specialty Start Date End Date Unknown, Provider, PCP - General 02/20/15 01/16/23 [place] [address] PCP - General 01/17/23 documented as of this encounter
== END 2024-02-04 00:56 ==
LOC: DI 00:36
PROVIDERS: PCP Nurse Practitioner Family; Visit Provider Nurse Practitioner Family
DX: M53.3 Sacrococcygeal disorders, not elsewhere classified (principal)
CPT/HCPCS: 72220

== ENCOUNTER 2024-04-13 16:33 | Outpatient (REF) | payer MEDICAID, SELFPAY ==
[2024-04-13 14:39] LABS: HGB 14.7 g/dL (11.2-15.7); MCH 30.1 pg (27.0-33.0); MCHC 34.2 % (32.0-36.0); MCV 88 fL (80-95); MPV 8.6 fL (8.0-11.0); Platelet Count 266 10^3/uL (130-400); RBC 4.88 10^6/uL (3.93-5.22); RDW 11.8 % (11.7-14.6); RDW-SD 37.9 fL; WBC 6.89 10^3/uL (4.4-10.8)
[2024-04-13 14:54] LABS: ALT 9 U/L (14-59); AST 8 U/L (15-37); Albumin 3.5 g/dL (3.4-5.0); Alkaline Phosphatase 80 U/L (46-116); Anion Gap 9.8 mmol/L (3-11); BUN 15 mg/dL (7-18); Bilirubin, Total 0.47 mg/dL (0.2-1.0); CO2 27.2 mmol/L (21.0-32.0); CREATININE 1.1 mg/dL (0.55-1.02); Calcium 9.7 mg/dL (8.5-10.1); Chloride 101 mmol/L (98-107); Estimated GFR 62.76 (mL/min/1.73m2); Glucose 257 mg/dL (74-106); Potassium 4.3 mmol/L (3.5-5.1); Sodium 138 mmol/L (136-145); Total Protein 6.8 g/dL (6.4-8.2)
[2024-04-13 14:56] LABS: Hemoglobin A1C 7.8 % (<5.7)
--- OUTSIDE RECORDS SUMMARY | 2024-04-13 16:36 | XMS_ITS | Encounter Summary ---
Author Organization [facility] [place] [address] Care Team Providers Care Mine Manager Name Role Phone Rosemary Howe MD Primary Care Provider Encounter Details Date Type Department Care Team (Late st Contact Info) Description 09/01/2019 Telephone Internal Medicine at [facility] [place] [phone] Nela Haines Social History Tobacco Use Types [...] on filedocumented in this encounter Care Teams Mine Manager Relationship Specialty Start Date End Date Rosemary Howe MD PCP - General General Internal Medicine 11/01/1908/21 documented as of this encounter
--- OUTSIDE RECORDS SUMMARY | 2024-04-13 16:36 | XMS_ITS | Encounter Summary ---
Author Organization [facility] Address [facility] [place] [address] Care Team Providers Care Contract Accountant Name Role Phone Rosemary Howe MD Primary Care Provider [phone] Encounter Details Date Type Department Care Team (Latest Contact Info) Description 11/01/2019 11:00 AM EDT TH Visit (TeleHealth) Internal Medicine at [facility] [address] [place] [phone] Rosemary Howe MD [address] [place] [address] Benign paroxysmal positional vertigo, unspecified laterality Social [...] Where can you learn more? Visit our [employer] information library at [email or web address] You can also view health information on [email or web address], your personal patient account. Log in or sign uptoday. Enter P834 in the search box to learn more about [facility] for Vertigo: Exercises. Current as of: March 08, 2019?Content Version: 12.5 ?? [id number] [employer]. Care instructions adapted under license by [facility]. If you have questions about a medical condition or this instruction, always ask your healthcare professional. [employer] disclaims any warranty or liability for your use of this information. documented in this encounter Progress Notes * Rosemary Howe MD - 11/01/2019 11:00 AM EDT Telephone visit COVID 19 pandemic She is in [place], [place] Discussed this visit will be billed [...] laterality documented in this encounter Care Teams Contract Accountant Relationship Specialty Start Date End Date Rsoemary Howe MD PCP - General General Internal Medicine 11/01/1908/21 documented as of this encounter
--- OUTSIDE RECORDS SUMMARY | 2024-04-13 16:36 | XMS_ITS | Encounter Summary ---
Author Organization [facility] [place] [address] Care Team Providers Care Pharmaceutical Sales Specialist Name Role Phone Carlos Alberto Ag MD Primary Care Provider Unavailable Encounter Details Date Type Department Care Team ([facility] st Contact Info) Description 12/14/2018 Telephone Internal Medicine at [facility] [place] [phone] Sofia Fritz Social History Tobacco Use Types [...] on filedocumented in this encounter Care Teams Pharmaceutical Sales Specialist Relationship Specialty Start Date End Date Carlos Alberto Ag MD PCP - General General Internal Medicine 04/26/17 10/31/19 documented as of this encounter
--- OUTSIDE RECORDS SUMMARY | 2024-04-13 16:36 | XMS_ITS | Continuity of Care Document ---
Author Organization [facility] Ambulatory Clinics Address [address] [place] [address] Care Team Providers Care Director Of Brand Marketing Name Role Phone JESSY BUSH APRN Primary Care Physician [phone] Encounter [facility] NBR [id number] Date(s): 03/30/24 - 03/30/24 [facility] Ambulatory Clinics [address], [place] [address] Encounter Diagnosis Cervical spondylosis with radiculopathy(Discharge Diagnosis) - 03/30/24 Bilateral arm pain(Discharge Diagnosis) - 03/30/24 Pain in left arm(Discharge Diagnosis) - 03/30/24 Tobacco user(Discharge Diagnosis) - 03/30/24 Vapes nicotine containing substance(Discharge Diagnosis) - 03/30/24 Type 2 diabetes mellitus without complication(Discharge Diagnosis) - 03/30/24 Discharge Disposition: Home or Self Care Attending Physician: Henry Verdin DO (Marilyn) Referring Physician: JESSY BUSH APRN Allergies, Adverse Reactions, Alerts Substance Criticality Severity Reaction Reaction Severity Status Seasonal Unable to assess criticality Unknown Congestion Active Assessment and Plan Extracted from: Title:Neurosurgery office Visit Note Author:Henry Verdin DO (Marilyn) Date:03/30/24 1.??Cervical spondylosis wit h radiculopathy??M47.22 43-year-old female with??bilateral cervical radiculopathy.??MRI shows??straightening of??normal cervical lordosis and??multilevel disc??herniation, causing??canal stenosis??at C3-4, C4-5, and C5-6.?The C3-4 and C4-5 levels??are associated with osteophytes??involved in compression. ??Patient has failed physical therapy??and medications.?? C3-4 and C4-5 disc arthroplasties??are planned.?? Surgical risks were discussed. ??Patient wishes to proceed. ??All questions were answered. 2.??Bilateral arm pain??M79.601 3.??Tobacco user??Z72.0,??Vapes nicotine containing substance??Z72.0 5.??Type 2 diabetes mellitus without complication??E11.9 Pain in left arm??M79.602 Future Appointments Future Scheduled Tests Radiology* CT Spine Cervical w/o Contrast 10/28/23 Medications Abilify 2 mg oral tablet 2 [...] sedation., # 60 tab, 1 Refill(s), Pharmacy: [id number] Start Date: 09/08/23 Status: Ordered depo-subQ [...] forms, # 20 tab, 0 Refill(s), Pharmacy: [id number] Start Date: 09/08/23 Status: Ordered lisinopril [...] Migraine Confirmed Active Mood swings Confirmed Active Vapes nicotine containing substance Confirmed Active Obstructive sleep apnea syndrome Confirmed Active Bilateral arm pain Confirmed Active Pure hyperglyceridemia Confirmed Active RhD negative Confirmed Active Suicidal thoughts Confirmed Active Type 2 diabetes mellitus without complication Confirmed Active Vitamin D deficiency Confirmed Active Procedures Procedure Date Related Diagnosis Body Site Status section Complete d Cholecystectomy Completed Vital Signs Most recent to oldest [Reference Range]: 1 Temperature Temporal Artery [36-38 Deg C ] 35.6 Deg C *LOW* (03/30/24 9:15 AM) Apical Heart Rate [60-100 bpm] 120 bpm *HI* (03/30/24 9:15 AM) Blood Pressure [90-120/60-80 mmHg] 110/7 8mmHg (03/30/24 9:15 AM) Mean Arterial Pressure, Cuff [65-140 mmH g] 89 mmHg (03/30/24 9:15 AM) Weight 96.3 kg (03/30/24 9:15 AM) Weight Measured (lbs) 212.305 lb (03/30/24 9:15 AM) Weight Dosing 96.300 kg (03/30/24 9:15 AM) [place] Body Weight Calculated 54.7 kg (03/30/24 9:15 AM) Height 162.56 cm (03/30/24 9:15 AM) Height/Length Measured (inches) 64 inch (03/30/24 9:15 AM) BSA Measured 2.09 m2 (03/30/24 9:15 AM) Body Mass Index 36.44 kg/m2 (03/30/24 9:15 AM) Social History Social History Type Response Tobacco Current everyday tob acco user Tobacco Use:. Sex Sex Representation Female (finding) Physician Outpatient Note * Henry Verdin DO (Marilyn): PERFORM Event Display: Office Clinic Note Physician Authored Date: [id number] MIGDALIA GOLDSMITH Ninoska :1980 Age:43 years Sex:Female Visit Date:03/30/2024 Primary Care Physician: JESSY BUSH APRN Chief Complaint Pre Op Additional Information Patient is having surgery on 05/02/2024 for a C3-4 and C4-5 disc arthroplasty. Patient states she isnot in any pain standing in the room, only when she reached behind her body. Denies any numbness ortingling or radiating pain. History of Present Illness Patient presents today for her preop??exam.?? Since her last visit, she reports that??the pain in the left and right arms have become more??equal and her balance has been worsening. ??She is not taking cyclobenzaprine??due to its lack of??efficacy. Physical Exam Vitals & Measurements T:??35.6?C ??(Temporal Artery)?? HR:??120??(Apical)?? BP:??110/78?? SpO2:??99%?? HT:??162.56??cm?? WT:??96.3??kg?? BMI:??36.44?? BSA:??2.09?? NAD Awake, alert Face symmetric Speech fluent and logical CTABL Heart RRR Motor 5 out of 5 bilateral upper and lower extremities all muscle groups No Elmer's or clonus Positive Tinel's at??bilateral carpal tunnels - produces??tingling in??both palms Assessment/Plan 1.??Cervical spondylosis with radiculopathy??M47.22 43-year-old female with??bilateral cervical radiculopathy.??MRI shows??straightening of??normal cervical lordosis and??multilevel disc??herniation, causing??canal stenosis??at C3-4, C4-5, and C5-6.?The C3-4 and C4-5 levels??are associated with osteophytes??involved in compression. ??Patient has failed physical therapy??and medications.?? C3-4 and C4-5 disc arthroplasties??are planned.?? Surgical risks were discussed. ??Patient wishes to proceed. ??All questions were answered. 2.??Bilateral arm pain??M79.601 3.??Tobacco user??Z72.0,??Vapes nicotine containing substance??Z72.0 5.??Type 2 diabetes mellitus without complication??E11.9 Pain in left arm??M79.602 Images MRI cervical??without contrast??08/04/2023:??Straightening of normal cervical lordosis.?? Multileveldisc herniation??with??canal stenosis at C3-4, C4-5, and C5-6.?? C3-4 and C4-5 have??cord contact. ??There is fluid signal maintained between C5-6 disc and the cord. ?? CT cervical without contrast??11/15/2023:??C3-4, C4-5??and C5-6 stenoses??result from??disc osteophyte complexes with at least partial calcification of??herniated disc. Problem List/Past Medical History Ongoing Anxiety disorder Bilateral arm pain Cervical spondylosis with radiculopathy Chronic depression Disorder of musculoskeletal system Eczema Essential hypertension Gastroesophageal reflux disease without esophagitis Hip pain Limitation of joint movement Major depression Migraine Mood swings Obstructive sleep apnea syndrome Pain in left foot Pure hyperglyceridemia RhD negative Suicidal thoughts Tobacco user Type 2 diabetes mellitus without complication Vapes nicotine containing substance Vitamin D deficiency Historical No qualifying data Procedure/Surgical History ??? section???Cholecystectomy Medications Abilify 2 mg oral tablet, 2 [...] kit, 1 castro, Topical, BID Allergies Seasonal??(Congestion) Social History Alcohol Never Electronic Cigarette/Vaping Electronic Cigarette Use: Use, within last 90 days. Type: Nicotine infused. Tobacco Current everyday tobacco user Tobacco Use:. Family History Cancer: Mother and Father. Attending Attestation Spent 30 minutes with patient in obtaining appropriate history and exam, counseling the patient, ordering prescriptions.?Time was not spent in performing separately reimbursable service. Electronically Signed on 03/30/2024 12:25 EST Henry Verdin DO (Marilyn) Patient Care team information Care Team Personnel Name: JESSY BUSH APRN Position: No Access Member Role: Primary Care Physician Address: [facility] - [address] [address] Care Team Related Persons Name: JUDITH ROSAS Insurance Providers Guarantor name: RONALD Health Plan Information #: 1 Payer: [place] Member Number: [id number] Policy Number: NA Health Plan Information #: 2 Payer: [place] Member Number: [id number] Policy Number: NA
--- OUTSIDE RECORDS SUMMARY | 2024-04-13 16:36 | XMS_ITS | Encounter Summary ---
Author Organization [facility] [place] [address] Care Team Providers Care Doll Eye Setter Name Role Phone Carlos Alberto Ag MD Primary Care Provider Unavailable Encounter Details Date Type Department Care Team (Late st Contact Info) Description 08/09/2018 Orders Only Internal Medicine at [facility] [place] [address] Carlos Alberto Ag MD Social History Tobacco Use Types Packs/Day Years [...] on filedocumented in this encounter Care Teams Doll Eye Setter Relationship Specialty Start Date End Date Carlos Alberto Ag MD PCP - General General Internal Medicine 04/26/17 10/31/19 documented as of this encounter
--- OUTSIDE RECORDS SUMMARY | 2024-04-13 16:36 | XMS_ITS | Encounter Summary ---
Author Organization [facility] Address [facility] [place] [address] Care Team Providers Care Dust Collector Treater Name Role Phone Carlos Alberto Ag MD Primary Care Provider Unavailable Reason for Visit * Reason Comments Medication Refill Encounter Details Date Type Department Care Team (Late st Contact Info) Description 05/06/2018 Refill Internal Medicine at [facility] [address] [place] [address] Carlos Alberto Ag MD Depression, unspecified depression type; Anxiety Social History [...] unspecified documented in this encounter Care Teams Dust Collector Treater Relationship Specialty Start Date End Date Carlos Alberto Ag MD PCP - General General Internal Medicine 04/26/17 10/31/19 documented as of this encounter
--- OUTSIDE RECORDS SUMMARY | 2024-04-13 16:36 | XMS_ITS | Encounter Summary ---
Author Organization [facility] [place] [address] Care Team Providers Care Junior Marketing Associate Name Role Phone Carlos Alberto Ag MD Primary Care Provider Unavailable Reason for Visit * Reason Onset Date Comments Medication Refill 05/13/2019 Encounter Details Date Type Department Care Team (Late st Contact Info) Description 05/13/2019 Refill Internal Medicine at [facility] [place] [address] Carlos Alberto Ag MD Gastroesophageal reflux disease, esophagitis presence not specified [...] specified documented in this encounter Care Teams Junior Marketing Associate Relationship Specialty Start Date End Date Carlos Alberto Ag MD PCP - General General Internal Medicine 04/26/17 10/31/19 documented as of this encounter
--- OUTSIDE RECORDS SUMMARY | 2024-04-13 16:36 | XMS_ITS | Encounter Summary ---
Author Organization [facility] [place] [address] Care Team Providers Care Crusher Assembler Name Role Phone Carlos Alberto Ag MD Primary Care Provider Unavailable Reason for Visit * Reason Comments Medication Refill Encounter Details Date Type Department Care Team (Late st Contact Info) Description 06/22/2018 Refill [place] [address] Malgorzata Pappas, VENTILATION EQUIPMENT TENDER [facility] [place] [address] Gastroesophageal reflux disease, esophagitis presence not specified; [...] hypertension documented in this encounter Care Teams Crusher Assembler Relationship Specialty Start Date End Date Carlos Alberto Ag MD PCP - General General Internal Medicine 04/26/17 10/31/19 documented as of this encounter
--- OUTSIDE RECORDS SUMMARY | 2024-04-13 16:36 | XMS_ITS | Encounter Summary ---
Author Organization [facility] Address [facility] [place] [address] Care Team Providers Care Concrete Engineer Name Role Phone Carlos Alberto Ag MD Primary Care Provider Unavailable Reason for Referral * Consultation (Urgent) - Closed Specialty Diagnoses / Procedures Referred By Contmak t Referred To Contact Internal Medicine Diagnoses Severe episode of recurrent major depressive disorder, without psychotic features Carlos Alberto Ag MD [facility] [place] [address] [address] Referral ID Status Reason Start Date Expiration Date V isits Requested Visits Authorized [id number] Closed Specialty Service Requested 08/21/2019 08/20/2020 1 1 Reason for Visit * Reason Comments Medication Check refills needed. No o ther concerns at this time. Encounter Details Date Type Department Care Team (Late st Contact Info) Description 08/21/2019 1:30 PM EDT TH Visit (TeleHealth) [place] [address] Carlos Alberto Ag MD Gastroesophageal reflux disease, esophagitis presence not specified; [...] at the time of the phone call: [facility](document location including state) Contact information [address] [facility] [address] (M) [phone] (H) Call start time: 2:02 pm Reason [...] daily. Please call to schedule an appt: [phone] Yes venlafaxine (EFFEXOR-XR) 150 mg Capsule, Sust. [...] phone speaks with every day. Works for [employer]. Thinking that world would be better off [...] for watching her children.Will reach out to [facility] to check in this week which patient [...] stop -Reach out to Carmen Vaca and [facility] [employer] [facility] #HTN -Refill lisinopril 10 mg QD #Seasonal allergies -Refill claritin prn Carlos Alberto Ag MD Total time spent associated with the visit including patient discussion and pre/post visit chart activities: 45 minutes Telephone/Telehealth visit codes: Established Patient New Patient 04353 (10 minute visit) 07941 (10 minute visit) 37033 (15 minute visit) 68087 (20 minute visit) 09339 (25 minute visit) 46541 (30 minute visit) 96821 (40 minute visit) 09832 (45 minute visit) 33954 (60 minute visit) * Jacqueline Cleveland MD - 08/21/2019 1:30 PM EDT I was physically present in the clinic and discussed the case with the resident [id number] at thetime of the visit or immediately [...] she would welcome a reach out from [facility] Plan cont effexor taper and start prozac [...] unspecified documented in this encounter Care Teams Concrete Engineer Relationship Specialty Start Date End Date Carlos Alberto Ag MD PCP - General General Internal Medicine 04/26/17 10/31/19 documented as of this encounter
--- OUTSIDE RECORDS SUMMARY | 2024-04-13 16:36 | XMS_ITS | Encounter Summary ---
Author Organization [facility] [place] [address] Care Team Providers Care Counter Professional Name Role Phone Carlos Alberto Ag MD Primary Care Provider Unavailable Reason for Visit * Reason Comments Medication Refill Encounter Details Date Type Department Care Team (Late st Contact Info) Description 10/14/2017 3:00 PM EDT Office [place] [address] Malgorzata Pappas, CHEST PAINTING LEADER [facility] [place] [address] Depression, unspecified depression type; Anxiety; Fatigue due [...] Patient Instructions * Patient Instructions* Malgorzata Pappas, CHEST PAINTING LEADER - 10/14/2017 3:24 PM EDT Images from [...] movie or concert. Take part in a confucianist activity or other social gathering. Go to [...] the numbers for these national suicide hotlines: 4-130-893-TALK ( ) and 2-182-XWQGOGM ( ). If you or someone you [...] more? Visit our health information library at [email or web address]. You can also view health information on CoffeeTable, your personal patient account. Log in or sign uptoday. Enter N529 in the search box to learn more about Recovering From Depression: Care Instructions. Current as of: March 25, 2017 Content Version: 11.7 ?? [id number] [employer]. Care instructions adapted under license by [facility]. If you have questions about a medical condition or this instruction, always ask your healthcare professional. [employer] disclaims any warranty or liability for your [...] low dose and she will communicate via [facility] on how she is doing, reviewed [...] 3:46 PM EDT) Neutrophil % 46.2 % [facility] Neutrophil Absolute 3.98 1.70 - 6.10 x10(3)/mc L [facility] Lymph % 44.4 % [facility] Lymphocytes Abs 3.8(H) 0.9 - 3.2 x10(3)/mc L [facility] Monocyte % 5.7 % [facility] Monocyte Abs 0.5 0.3 - 0.9 x10(3)/mc L [facility] Eos % 2.9 % [facility] Eosinophils Abs 0.2 0.0 - 0.4 x10(3)/mc L [facility] Basophil % 0.5 % [facility] Baso Absolute 0.0 0.0 - 0.1 x10(3)/mc L [facility] Immature Gran % 0.30 % [facility] Comment: Immature granulocytes(IG's)percentage and absolute count will include metamyelocytes, myelocytes, and promyelocytes. Blood smears from CBCs yielding IG's will be scanned manually for concordance. If this scan disagrees with the automated IG or if promyelocytes are noted, a manual differential will be performed. Immature Gran Absolute 0.03 0.00 - 0.04 x10(3)/mc L [facility] Blood specimen (specimen) 10/14/2017 3:46 PM EDT 10/14/2017 3:52 PM EDT Narrative Resulting Agency Comment Spec In Lab Malgorzata Pappas [facility] ORDER[facility] S [facility] [place] [address] * (ABNORMAL) Hemogram (10/14/2017 3:46 PM EDT) White Blood Cell 8.6 4.0 - 9.5 x10(3)/[facility] Red Blood Cell 4.34 4.00 - 5.21 x10(6)/[facility] Hemoglobin 13.6 11.7 - 15.5 gm/dL [facility] Hematocrit 38.4 35.7 - 45.8 % [facility] Mean Cell Volume 88.5 82.6 - 94.4 fL [facility] Mean Cell Hemoglobin 31.3 27.1 - 32.0 pg [facility] Mean Cell Hemoglobin Concentration 35.4(H) 31.7 - 35.0 gm/dL [facility] Platelet 236 145 - 357 x10(3)/ L [facility] RDW Standard Deviation 38.6 37.0 - 46.0 [facility] RDW coefficient of variation 11.9 11.5 - 14.1 % [facility] Mean Platelet Volume 9.1 7.6 - 12.9 [facility] NRBC% auto 0.0 % [facility] NRBC Absolute 0.000 0.000 - 0.000 x10(3)/ L [facility] Blood specimen (specimen) 10/14/2017 3:46 PM EDT 10/14/2017 3:52 PM EDT Narrative Resulting Agency Comment Spec In Lab Malgorzata Clementwitt [facility] [place] [address] * TSH (10/14/2017 3:46 PM EDT) Pathologist [facility] Thyroid Stimulating Hormone 3.28 0.27 - 4.20 mlU/ML [facility] Blood specimen (specimen) 10/14/2017 3:46 PM EDT 10/14/2017 3:52 PM EDT Narrative Resulting Agency Comment Spec In Lab Malgorzata Pappas CHEST PAINTING LEADER CHEMISTRY ORDERABLES [facility] [place] [address] * (ABNORMAL) Basic Metabolic Panel (non-fasting) (10/14/2017 3:46 PM EDT) Pathologist [facility] Glucose 243(H) 65 - 199 mg/dL [facility] Comment:Diabetes: >=200 mg/d L plus symptoms Blood Urea Nitrogen 16 8 - 18 mg/dL [facility] Creatinine 0.63(L) 0.70 - 1.20 mg/dL [facility] Sodium 139 135 - 145 mmol/L [facility] Potassium 4.0 3.5 - 5.0 mmol/L [facility] Comment: Please note: ??Patients with WBC >100,000 may have falsely elevated Potassium levels. ??For accurate Potassium quantification in these patients send serum separator tube (gold top) for subsequent determinations. ??Contact the Clinical Chemistry Laboratory if there are any questions. Chloride 99 98 - 107 mmol/L [facility] Carbon Dioxide 25 22 - 31 mmol/L [facility] Anion Gap 15 5 - 15 mmol/L [facility] Calcium 9.2 8.5 - 10.5 mg/dL [facility] Est Glomerular Filtration Rate 113 >=60 mL/min/1. 73 m?? [facility] Comment: The eGFR was calculated using the CKD-EPI equation. As with all creatinine based estimates of kidney function, eGFR values calculated with the CKD-EPI equation are not accurate in patients with acute kidney failure, extremes of body mass or the acutely ill. [email or web address] eGFR 131 >=60 mL/min/1. 73 m?? [facility] Comment: The eGFR was calculated using the CKD-EPI equation. As with all creatinine based estimates of kidney function, eGFR values calculated with the CKD-EPI equation are not accurate in patients with acute kidney failure, extremes of body mass or the acutely ill. [email or web address] Blood specimen (specimen) 10/14/2017 3:46 PM EDT 10/14/2017 3:52 PM EDT Narrative Resulting Agency Comment Spec In Lab Malgorzata Pappas APRN CHEMISTRY ORDERABLES Performing Organization Address City/State/[facility] Co de Phone Number [facility] [place] [address] documented in this encounter Visit Diagnoses Diagnosis Depression, unspecified depression type Anxiety Anxiety state, unspecified Fatigue due to depression documented in this encounter Care Teams Counter Professional Relationship Specialty Start Date End Date Carlos Alberto Ag MD PCP - General General Internal Medicine 04/26/17 10/31/19 documented as of this encounter
--- OUTSIDE RECORDS SUMMARY | 2024-04-13 16:36 | XMS_ITS | Encounter Summary ---
Author Organization [facility] [place] [address] Care Team Providers Care Cinder Snapper Name Role Phone Carlos Alberto Ag MD Primary Care Provider Unavailable Encounter Details Date Type Department Care Team (Late st Contact Info) Description 10/27/2018 Telephone Internal Medicine at [facility] [place] [address] Nela Haines Social History Tobacco Use Types [...] on filedocumented in this encounter Care Teams Cinder Snapper Relationship Specialty Start Date End Date Carlos Alberto Ag MD PCP - General General Internal Medicine 04/26/17 10/31/19 documented as of this encounter
--- OUTSIDE RECORDS SUMMARY | 2024-04-13 16:36 | XMS_ITS | Encounter Summary ---
Author Organization [facility] [place] [address] Care Team Providers Care Medical Lab Technologist Name Role Phone Carlos Alberto Ag MD Primary Care Provider Unavailable Reason for Referral * Consultation (Routine) - Closed Specialty Diagnoses / Procedures Referred By Jay t Referred To Contact Internal Medicine Diagnoses Severe episode of recurrent major depressive disorder, without psychotic features Carmen Vaca [facility] DE[facility] [place] [id number] Gail Sanchez MD [facility] [place] [address] Referral ID Status Reason Start Date Expiration Date V isits Requested Visits Authorized [id number] Closed Specialty Service Requested 08/28/2019 08/27/2020 1 1 Encounter Details Date Type Department Care Team (Late st Contact Info) Description 08/28/2019 Orders [place] [address] Carmen Vaca [facility] [place] [address] Severe episode of recurrent major depressive disorder, [...] features documented in this encounter Care Teams Medical Lab Technologist Relationship Specialty Start Date End Date Carlos Alberto Ag MD PCP - General General Internal Medicine 04/26/17 10/31/19 documented as of this encounter
--- OUTSIDE RECORDS SUMMARY | 2024-04-13 16:36 | XMS_ITS | Encounter Summary ---
Author Organization [facility], Located Within [facility] [place] [address] Care Team Providers Care District Resource Officer Name Role Phone Carlos Alberto Ag MD Primary Care Provider Unavailable Reason for Visit * Reason Onset Date Comments Other 09/12/2019 Encounter Details Date Type Department Care Team (Late st Contact Info) Description 09/12/2019 Telephone [place] [phone] Carmen Vaca [facility] [place] [address] Other Social History Tobacco Use Types Packs/Day [...] Notes * Telephone Encounter - Carmen Vaca LCDonnell - 09/12/2019 12:54 PM EDT Primary Care & Psychiatry Collaborative Care Called to follow up on IMPACT, mood, referral to Dr. Sanchez, safety concerns. Left and my message. Carmen Vaca M.S., [facility] Behavioral Health Clinician (BHC) Primary Care & Psychiatry Collaborative Care [facility] Direct # [phone] Clinic#: [phone] Pager [phone] documented in this encounter Plan of Treatment Not on file documented as of this encounter Visit Diagnoses Not on filedocumented in this encounter Care Teams District Resource Officer Relationship Specialty Start Date End Date Carlos Alberto Ag MD PCP - General General Internal Medicine 04/26/17 10/31/19 documented as of this encounter
--- OUTSIDE RECORDS SUMMARY | 2024-04-13 16:36 | XMS_ITS | Encounter Summary ---
Author Organization [facility] [place] [address] Care Team Providers Care Utilization Review Specialist Name Role Phone Carlos Alberto Ag MD Primary Care Provider Unavailable Reason for Visit * Reason Comments Medication Refill Encounter Details Date Type Department Care Team (Late st Contact Info) Description 02/27/2018 [place] [address] Malgorzata Pappas, STRAIGHTENING PRESS OPERATOR HELPER [facility] [address] Depression, unspecified depression type Social History Tobacco [...] type documented in this encounter Care Teams Utilization Review Specialist Relationship Specialty Start Date End Date Carlos Alberto Ag MD PCP - General General Internal Medicine 04/26/17 10/31/19 documented as of this encounter
--- OUTSIDE RECORDS SUMMARY | 2024-04-13 16:36 | XMS_ITS | Encounter Summary ---
Author Organization [facility] [place] [address] Care Team Providers Care Soldering Machine Operator Helper Name Role Phone Carlos Alberto Ag MD Primary Care Provider Unavailable Reason for Referral * Consultation (Routine) - Closed Specialty Diagnoses / Procedures Referred By Jay t Referred To Contact Internal Medicine Diagnoses Current moderate episode of major depressive disorder, unspecified whether recurrent Malgorzata Pappas APRN [facility] [place] [address] [facility] [address] [address] Referral ID Status Reason Start Date Expiration Date V isits Requested Visits Authorized [id number] Closed Specialty Service Requested 06/24/2018 06/24/2019 1 1 Reason for Visit * Reason Comments Depression Other stomach issues for w vashtie, nausea, food doesn't settle well, diarrhea Encounter Details Date Type Department Care Team (Late st Contact Info) Description 06/24/2018 10:00 AM EST Office [place] [phone] Malgorzata Pappas APRN [facility] [address] [place] [address] Current moderate episode of major [...] the numbers for these national suicide hotlines: 8-804-264-TALK ( ) and 8-869-SPSOTHB ( ). If you or someone you [...] the numbers for these national suicide hotlines: 0-745-614-TALK ( ) and 3-090-GTSPHSV ( ). If you or someone you [...] more? Visit our health information library at [email or web address]. You can also view health information on TCHO, your personal patient account. Log in or sign uptoday. Enter Z126 in the search box to learn more about Learning About Mood Disorders. Current as of: December 28, 2017 Content Version: 11.9 ?? [id number] [employer]. Care instructions adapted under license by [facility]. If you have questions about a medical condition or this instruction, always ask your healthcare professional. [employer] disclaims any warranty or liability for your [...] recurrent documented in this encounter Care Teams Soldering Machine Operator Helper Relationship Specialty Start Date End Date Carlos Alberto Ag MD PCP - General General Internal Medicine 04/26/17 10/31/19 documented as of this encounter
--- OUTSIDE RECORDS SUMMARY | 2024-04-13 16:36 | XMS_ITS | Encounter Summary ---
Author Organization [facility] [place] [address] Care Team Providers Care Heel Seam Rubber Name Role Phone Carlos Alebrto Ag MD Primary Care Provider Unavailable Reason for Visit * Reason Comments Medication Refill Encounter Details Date Type Department Care Team (Late st Contact Info) Description 01/29/2019 Refill Internal Medicine at [facility] [place] [address] Carlos Alberto Ag MD Uncontrolled type 2 diabetes mellitus without complication, [...] insulin documented in this encounter Care Teams Heel Seam Rubber Relationship Specialty Start Date End Date Carlos Alberto Ag MD PCP - General General Internal Medicine 04/26/17 10/31/19 documented as of this encounter
--- OUTSIDE RECORDS SUMMARY | 2024-04-13 16:36 | XMS_ITS | Clinical Summary ---
Author Organization [facility] Address [facility] [place] [address] Care Team Providers Care Economic Research Assistant Name Role Phone Unavailable Primary Care Provider Unavailabl e Allergies Active Allergy Reactions Criticality Noted Date Comments Red Blood Cells High 12/23/2011 Antibodies-Difficult to Crossmatch DO NOT REMOVE Please contact the Blood Bank at [phone] for questions. Medications Medication Sig Dispensed Refills [...] 2 Overview (05/09/2013): EGD 05/2003 (Dr Nj, [facility]): normal, no biopsies taken Assessment & Plan (09/29/2011 3:04 PM EDT): Switched from prilosec to zantac Carpal tunnel syndrome 05/14/2011 Overview (05/09/2013): eval 12/2003 Dr Ortiz ([facility]), bilat symptoms R>L NCS: mild median nerve entrapment at wrists, L>R. No evidence for ulnar nerve entrapment or neuropathy. Scanned in CIS Depression Overview (05/09/2013): Hx depression prior to 2003 Re-eval 2003 with PCP at [facility] Prior tx paroxetine, lexapro Post depression [...] R wrist, s/p excision 06/29, Dr Cabrales ([facility]) Healthcare maintenance Overview (05/09/2013): Records from [place] received 03/2013. tdap 02/14/2009 (we gave at [...] Whole 03/21/2008 MMR Vaccine LIVE 12/20/2011 Meningococcal Acwy, Unspecified Formulation 09/2003 Pneumococcal 23-Valent Polysaccharide (Pneumovax 23) 04/09/2008 Rho(D) [...] test 03/05/2022 03/05/2017 Lipid Screening 03/05/2022 03/05/2017, 0604/2015, 01/30/2013 PAP Smear 03/05/2022 03/05/2017, 05/20, 03/03/2010 Tetanus/Diphtheria/Pertussis Vaccines (2 - Td or Tdap) 01/30/2023 01/30/2013, 01/18/2004 Covid-19 Vaccine (1 - 2023-2 5 season) 2023 Influenza (Flu) vaccine (1 o [...] insulin HPV Routine 03/05/2017 9:28 AM EST RETAIL ROUTE SUPERVISOR CYTOLOGY FINAL REPORT Routine 03/05/2017 9:28 AM EST LIPID PANEL (REFLEX DIRECT LDL) Routine 03/05/2017 8:17 AM EST Dyslipidemia HIV SCREEN, 4TH GENERATION ([facility]/CGP/APD/NLH) Routine 05/29/2011 12:38 PM EST Unspecified high-risk from Last 3 Months or Most Recently Relevant to Health Maintenance Results * (ABNORMAL) Basic Metabolic Panel (non-fasting) (10/14/2017 3:46 PM EDT) Glucose 243(H) 65 - 199 mg/dL [facility] Comment:Diabetes: >=200 mg/d L plus symptoms Blood Urea Nitrogen 16 8 - 18 mg/dL [facility] Carbon Dioxide 25 22 - 31 mmol/L [facility] Anion Gap 15 5 - 15 mmol/L [facility] Calcium 9.2 8.5 - 10.5 mg/dL [facility] Est Glomerular Filtration Rate 113 >=60 mL/min/1. 73 m?? [facility] Comment: The eGFR was calculated using the CKD-EPI equation. As with all creatinine based estimates of kidney function, eGFR values calculated with the CKD-EPI equation are not accurate in patients with acute kidney failure, extremes of body mass or the acutely ill. http://RAMP [employer]/Vivactankdep http://R[employer]/[facility]AGUEnkf eGFR 131 >=60 mL/min/1. 73 m?? [facility] Comment: The eGFR was calculated using the CKD-EPI equation. As with all creatinine based estimates of kidney function, eGFR values calculated with the CKD-EPI equation are not accurate in patients with acute kidney failure, extremes of body mass or the acutely ill. http://[employer]/Vivactankdep http://[employer]/Vivactankf Blood specimen (specimen) 10/14/2017 3:46 PM EDT 10/14/2017 3:52 PM EDT Narrative Resulting Agency Comment Spec In Lab Malgorzata Pappas APRN CHEMISTRY ORDERABLES [facility] [place] [address] * (ABNORMAL) Hemoglobin A1c (08/19/2017 3:27 PM [...] Mellitus, Diabetes Care 2013; 36: Suppl. 1, G07-83 Estimated Average Glucose 151 mg/dL [facility] [...] into estimated average glucose values. ??Diabetes Care 2008:31(8):1899-3847. Blood specimen (specimen) 08/19/2017 3:27 PM EDT 08/19/2017 3:34 PM EDT Narrative Resulting Agency Comment Spec In Lab Malgorzata Pappas APRN CHEMISTRY ORDERABLES [facility] [place] [address] * U Albumin/Cre Ratio (06/03/2017 9:41 AM EST) Albumin / Creatinin Ratio, Urine Not Calculated 0 - 29 mcg/mg Cr [facility] Comment: Reference Ranges: <30 [...] 2, 357? 362 Albumin, Urine <3.0 mg/L [facility] Creatinine, Urine 120 mg/dL [facility] Urine specimen (specimen) 06/03/2017 9:41 AM EST 06/03/2017 9:51 AM EST Narrative Resulting Agency Comment Spec In Lab Jacqueline Cleveland MD URINE ORDERABLES Performing Organization Address [facility] Co de Phone Number [facility] [place] [address] * HPV (03/05/2017 9:28 AM EST) HPV16 NEGATIVE NEGATIVE [facility] HPV 18 NEGATIVE NEGATIVE [facility] HPV Other HR NEGATIVE NEGATIVE [facility] HPV Interpretation See Comment [facility] Comment: NEGATIVE for [...] Agency Comment Spec In Lab Rosalva Xiao Beaupre CUSTOMER SUPPLY CHAIN ANALYST PATHOLOGY/CYTOLOGY O RDERABLES Performing Organization Address [facility] Co de Phone Number [facility] [place] [address] * Strip Picker Cytology Final Report (03/05/2017 9:28 AM EST) Strip Picker Cytology Final Report [id number] ? Location: [facility] The signing pathologist has (i) examined the relevant preparation(s) for the specimen(s) and (ii) rendered or confirmed the diagnosis(es). . ? Strip Picker Final DIAGNOSIS Normal Negative for Intraepithelial Lesion or Malignancy (NILM). For consensus guidelines for the management of cervical cancer screening test results, please see: ?? http://www.asccp.o rg . Electronically signed by: ??Supriya REYNOSO(ASCP)Coleen Verified: ??03/17/2017 ?Concrete Tester Performed at: ??-[facility] Dept. of Pathology, [place], [place] HPV RESULTS HPV16 (Result) ?Negative HPV18 [...] Clinical Genomics and Advanced Technology (CGAT) at [facility]. ? - Marvin Lorenzana, PhD, [facility], Director-[facility] STATEMENT OF ADEQUACY Specimen submitted is satisfactory. Endocervical component present. CLINICAL INFORMATION HPV Option: ?Concurrent HPV and Pap Preparation: ? Liquid based Pap Specimen Source: ? Cervical/Endocervi loni LMP: ? n/a Hormones?: ? Yes Hysterectomy?: ? No ?: ? No ?: ? No I.U.D.?: ? No Pelvic Radiation: ?No Prior RETAIL ROUTE SUPERVISOR Therapy?: ?No Hist Abnl Pap/Biopsy?: ?? No Hist of HPV Vaccine?: ?No Hist of Smoking?: ?No Hist of NIKHIL exposure?: ?? No ICD Diagnosis: ? Z12.4 Encounter for screening for malignant neoplasm of cervix Clinical Data, Significant Therapy and Clinical Impression ?? : . CLINICAL INFORMATION ?_ This Pap Test has been evaluated with the assistance of the BuyMyTronics.comp Pap Test Imaging System. Note: The Pap test is a screening test for cervical cancer with an inherent false-negative rate dependent upon several variables. ??For further information please contact the [facility] Laboratory. Reference: ??Amanda BLACK. ??Armoured Car Escort of Pap Smear Results. ??In: ??Barbara BS, [facility], ed. ??The Pap Smear. ??[place]: ??Mendoza, 2002: ??71-77. [facility] 03/05/2017 9:28 AM EST Rosalva Cardenas CUSTOMER SUPPLY CHAIN ANALYST PATHOLOGY/CYTOLOGY O RDERABLES [facility] [place] [address] * (ABNORMAL) Lipid Panel (03/05/2017 8:17 AM EST) Cholesterol, Total 166 <=239 mg/dL [facility] Triglyceride 309(H) <=199 mg/dL [facility] HDL Cholesterol 32(L) >=40 mg/dL [facility] LDL Cholesterol 72 <=190 mg/dL [facility] Cholesterol/HDL Ratio 5.2 ratio [facility] Lipid Interpretation See Note [facility] Comment: Lipid management should be guided by a patient? s ASCVD risk, goals and preferences. ACC/AHA Guidelines recommend high intensity statin if clinical ASCVD or LDL greater than or equal to 190 mg/dL. http://Pancetera.com/JJB-PJJ-Oinnnzhhv Adults aged 40-75 with LDL 70-189 mg/dL should have their 10 year ASCVD risk estimated with the ACC/AHA ASCVD risk reimbursement consultant http://tools.acc.org/HKYPY-Ooqx-Xsfwtndsi/ Statin should be discussed if risk greater [...] In Lab Pita Narayanan MD CHEMISTRY ORDERABLES [facility] [place] [address] * HIV (05/29/2011 12:38 PM EST) HIV 1/2 Ab Negative [facility] Blood specimen (specimen) 05/29/2011 12:38 PM EST 05/29/2011 12:40 PM EST Marilyn Reilly MD CHEMISTRY ORDERABL ES [facility] from Last 3 Months or Most [...]
--- OUTSIDE RECORDS SUMMARY | 2024-04-13 16:36 | XMS_ITS | Encounter Summary ---
Author Organization [facility] [place] [address] Care Team Providers Care Deal Architect Name Role Phone Carlos Alberto Ag MD Primary Care Provider Unavailable Reason for Visit * Reason Onset Date Comments Medication Refill 07/07/2019 Encounter Details Date Type Department Care Team (Late st Contact Info) Description 07/07/2019 Refill Internal Medicine at [facility] [place] [place] [address] Carlos Alberto Ag MD Essential hypertension; Uncontrolled type 2 diabetes mellitus [...] insulin documented in this encounter Care Teams Deal Architect Relationship Specialty Start Date End Date Carlos Alberto Ag MD PCP - General General Internal Medicine 04/26/17 10/31/19 documented as of this encounter
--- OUTSIDE RECORDS SUMMARY | 2024-04-13 16:36 | XMS_ITS | Encounter Summary ---
Author Organization [facility] [place] [address] Care Team Providers Care Hockey Instructor Name Role Phone Carlos Alberto Ag MD Primary Care Provider Unavailable Reason for Visit * Reason Comments Urinary Tract Infection Encounter Details Date Type Department Care Team (Late st Contact Info) Description 12/31/2017 1:40 PM EDT Office [place] [address] Malgorzata Pappas, BODY TEAM MEMBER [facility] [place] [address] Urinary urgency; Dysuria Social History Tobacco Use [...] Patient Instructions * Patient Instructions* Malgorzata Pappas, BODY TEAM MEMBER - 12/31/2017 2:17 PM EDT Images from [...] on the cause. Follow-up care is a lewsi part of your treatment and safety. Be [...] more? Visit our health information library at [email or web address]. You can also view health information on Press-sense, your personal patient account. Log in or sign uptoday. Enter H814 in the search box to learn more about Painful Urination (Dysuria): Care Instructions. Current as of: August 28, 2016 Content Version: 11.7 ?? [id number] [employer]. Care instructions adapted under license by [facility]. If you have questions about a medical condition or this instruction, always ask your healthcare professional. [employer] disclaims any warranty or liability for your [...] tract infection, submit a new specimen. (A) [facility] Urine specimen obtained by clean catch procedure (specimen) 12/31/2017 2:20 PM EDT 12/31/2017 3:07 PM EDT Narrative Resulting Agency Comment Spec In Lab Malgorzata Pappas APRN MICROBIOLOGY - GENER AL ORDERABLES [facility] [place] [address] * (ABNORMAL) Urinalysis Microscopic Exam (12/31/2017 2:20 PM EDT) RBC, Urine 3 0 - 4 /HPF [facility] WBC, Urine 24(H) 0 - 5 /HPF [facility] Bacteria, Urine Occasiona l(A) None /HPF [facility] Squamous Epithelial Cells Raw Data, Urine 24(H) <=4 /HPF [facility] Transitional Epithelial Cells, Urine <1 <=1 /HPF [facility] Renal Epithelial Cells, Urine <1(H) <=0 /HPF [facility] Urine specimen obtained by clean catch procedure (specimen) 12/31/2017 2:20 PM EDT 12/31/2017 2:40 PM EDT Narrative Resulting Agency Comment Spec In Lab Malgorzata Pappas APRN URINE ORDERABLES [facility] [place] [address] * (ABNORMAL) Urinalysis with reflex Culture (12/31/2017 2:20 PM EDT) Glucose, Urine Dipstick Negative Negative mg/dL [facility] Protein, Urine Dipstick 100(A) Negative mg/dL [facility] Bilirubin, Urine Dipstick Negative Negative mg/dL [facility] Comment: Clinical correlation required for positive Urine Bilirubin results as false positive may occur with some drugs and drug related products. If a false positive is suspected a serum total bilirubin should be considered if clinically indicated. Urobilinogen, Urine Dipstick Normal Normal mg/dL [facility] pH, Urn (dipstick) 5.0 5.0 - 8.0 [facility] Blood, Urine Dipstick Negative Negative mg/dL [facility] Ketone, Urine Dipstick 5(A) Negative mg/dL [facility] Nitrite, Urine Dipstick Negative Negative [facility] Leukocytes, Urine Dipstick Large(A) Negative [facility] Appearance, Urine Dipstick Cloudy(A) Clear [facility] Specific [place] Urine Automated 1.028 1.002 - 1.030 [facility] Color, Urine Dipstick Azeb Yellow [facility] Reflex to Culture Yes [facility] Urine specimen obtained by clean catch procedure (specimen) 12/31/2017 2:20 PM EDT 12/31/2017 2:40 PM EDT Narrative Resulting Agency Comment Spec In Lab Malgorzata Pappas APRN URINE ORDERABLES Performing Organization Address City/State/[facility] Co de Phone Number [facility] [place] [address] documented in this encounter Visit Diagnoses Diagnosis Urinary urgency Urgency of urination Dysuria documented in this encounter Care Teams Hockey Instructor Relationship Specialty Start Date End Date Carlos Alberto Ag MD PCP - General General Internal Medicine 04/26/17 10/31/19 documented as of this encounter
--- OUTSIDE RECORDS SUMMARY | 2024-04-13 16:36 | XMS_ITS | Encounter Summary ---
Author Organization [facility] [place] [address] Care Team Providers Care Hide Paster Name Role Phone Carlos Alberto Ag MD Primary Care Provider Unavailable Reason for Visit * Reason Onset Date Comments Medication Refill 09/21/2019 Encounter Details Date Type Department Care Team (Late st Contact Info) Description 09/21/2019 Refill Internal Medicine at [facility] [place] [address] Carlos Alberto Ag MD Menstrual disorder Social History Tobacco Use Types [...] tract documented in this encounter Care Teams Hide Paster Relationship Specialty Start Date End Date Carlos Alberto Ag MD PCP - General General Internal Medicine 04/26/17 10/31/19 documented as of this encounter
--- OUTSIDE RECORDS SUMMARY | 2024-04-13 16:36 | XMS_ITS | Encounter Summary ---
Author Organization [facility] Address [facility] [place] [address] Care Team Providers Care Geomagnetist Name Role Phone Enoch Medina MD Primary Care Provider [phone] Reason for Visit * Reason Onset Date Comments Medication Refill 03/30/2019 Encounter Details Date Type Department Care Team (Late st Contact Info) Description 03/30/2019 Refill Internal Medicine at [facility] [address] [place] [address] Carlos Alberto Ag MD Menstrual disorder; Essential hypertension; Uncontrolled type 2 [...] insulin documented in this encounter Care Teams Geomagnetist Relationship Specialty Start Date End Date Enoch Medina MD [facility] [address] [place] [address] PCP - General Family Medicine 08/22/20 06/03/21 documented as of this encounter
--- OUTSIDE RECORDS SUMMARY | 2024-04-13 16:36 | XMS_ITS | Encounter Summary ---
Author Organization [facility] [place] [address] Care Team Providers Care Community Nurse Name Role Phone Carlos Alberto Ag MD Primary Care Provider Unavailable Encounter Details Date Type Department Care Team ([facility] st Contact Info) Description 08/22/2019 Telephone Internal Medicine at [facility] [place] [address] Ofe Craig Social History Tobacco Use Types [...] on filedocumented in this encounter Care Teams Community Nurse Relationship Specialty Start Date End Date Carlos Alberto Ag MD PCP - General General Internal Medicine 04/26/17 10/31/19 documented as of this encounter
--- OUTSIDE RECORDS SUMMARY | 2024-04-13 16:36 | XMS_ITS | Encounter Summary ---
Author Organization [facility], Located Within [facility] [place] [address] Care Team Providers Care Spike Driver Name Role Phone Enoch Medina MD Primary Care Provider [phone] Reason for Visit * Reason Comments Medication Refill Encounter Details Date Type Department Care Team ([facility] st Contact Info) Description 04/02/2019 [place] [address] Carlos Alberto Ag MD Menstrual disorder Social [...] tract documented in this encounter Care Teams Spike Driver Relationship Specialty Start Date End Date Enoch Medina MD [facility] [place] [address] PCP - General Family Medicine 08/22/20 06/03/21 documented as of this encounter
--- OUTSIDE RECORDS SUMMARY | 2024-04-13 16:36 | XMS_ITS | Encounter Summary ---
Author Organization Formerly [facility] Address [facility] [place] [address] Care Team Providers Care Biomedical Electronics Technician Name Role Phone Enoch Medina MD Primary Care Provider [phone] Reason for Visit * Reason Onset Date Comments Medication Refill 03/24/2019 Encounter Details Date Type Department Care Team (Late st Contact Info) Description 03/24/2019 Refill Internal Medicine at [facility] [address] [place] [address] Carlos Alberto Ag MD Menstrual disorder; Essential [...] insulin documented in this encounter Care Teams Biomedical Electronics Technician Relationship Specialty Start Date End Date Enoch Medina MD [facility] [address] [place] [address] PCP - General Family Medicine 08/22/20 06/03/21 documented as of this encounter
--- OUTSIDE RECORDS SUMMARY | 2024-04-13 16:36 | XMS_ITS | Encounter Summary ---
Author Organization [facility] [place] [address] Care Team Providers Care City Dispatch Supervisor Name Role Phone Carlos Alberto Ag MD Primary Care Provider Unavailable Encounter Details Date Type Department Care Team (Late st Contact Info) Description 09/21/2017 Orders Only [place] [address] Adan Markham MD Social History Tobacco Use Types Packs/Day [...] on filedocumented in this encounter Care Teams City Dispatch Supervisor Relationship Specialty Start Date End Date Carlos Alberto Ag MD PCP - General General Internal Medicine 04/26/17 10/31/19 documented as of this encounter
--- OUTSIDE RECORDS SUMMARY | 2024-04-13 16:36 | XMS_ITS | Encounter Summary ---
Author Organization [facility] [place] [address] Care Team Providers Care Jackspooler Name Role Phone Rosemary Howe MD Primary Care Provider Encounter Details Date Type Department Care Team (Late st Contact Info) Description 09/15/2019 Telephone Internal Medicine at [facility] [place] [address] Ofe Craig Social History Tobacco Use Types [...] on filedocumented in this encounter Care Teams Jackspooler Relationship Specialty Start Date End Date Rosemary Howe MD PCP - General General Internal Medicine 11/01/1908/21 documented as of this encounter
--- OUTSIDE RECORDS SUMMARY | 2024-04-13 16:36 | XMS_ITS | Encounter Summary ---
Author Organization [facility] [place] [address] Care Team Providers Care Animal Caretaker Supervisor Name Role Phone Carlos Alberto Ag MD Primary Care Provider Unavailable Reason for Visit * Reason Onset Date Comments Medication Refill 08/15/2019 Encounter Details Date Type Department Care Team (Late st Contact Info) Description 08/15/2019 Refill Internal Medicine at [facility] [place] [address] Carlos Alberto Ag MD Gastroesophageal reflux disease, [...] hypertension documented in this encounter Care Teams Animal Caretaker Supervisor Relationship Specialty Start Date End Date Carlos Alberto Ag MD PCP - General General Internal Medicine 04/26/17 10/31/19 documented as of this encounter
--- OUTSIDE RECORDS SUMMARY | 2024-04-13 16:36 | XMS_ITS | Encounter Summary ---
Author Organization [facility] Address [facility] [place] [address] Care Team Providers Care Bus Van Driver Name Role Phone Carlos Alberto Ag MD Primary Care Provider Unavailable Reason for Visit * Reason Comments Medication Refill Encounter Details Date Type Department Care Team ([facility] st Contact Info) Description 04/30/2018 Refill Internal Medicine at [facility] [address] [place] [phone] Carlos Alberto Ag MD Menstrual disorder Social [...] Patients PCP is Carlos Alberto Ag MD, [facility] Primary Care on [facility]. * Telephone Encounter - Ale Moreau CMA [...] tract documented in this encounter Care Teams Bus Van Driver Relationship Specialty Start Date End Date Carlos Alberto Ag MD PCP - General General Internal Medicine 04/26/17 10/31/19 documented as of this encounter
--- OUTSIDE RECORDS SUMMARY | 2024-04-13 16:36 | XMS_ITS | Encounter Summary ---
Author Organization [place] [address] Care Team Providers Care Steward/Stewardess Night Name Role Phone Carlos Alberto Ag MD Primary Care Provider Unavailable Reason for Visit * Reason Onset Date Comments Prior Authorization 08/09/2018 Venlafaxine Encounter Details Date Type Department Care Team (Late st Contact Info) Description 08/09/2018 Telephone Internal Medicine at [facility] [address] [place] [phone] Padma Miller CMA Prior Authorization (Venlafaxine) Social [...] Authorization for Primary Care [place] [address] Request received via: Pharmacy Patient: Sarah Xiao Antwan Patient : 1980 Subscriber Insurance: [place] Medicaid Insurance Phone #: Sent via: [employer]/Fax#: [id number] Physician: Carlos Alberto Ag MD Medication Requested: venlafaxine (EFFEXOR-XR) 75 mg Capsule, Sust. Release 24 hr Frequency/Sig: TAKE 3 CAPSULES BY MOUTH DAILY Disp.: 180 Refills: 3 Currently taking: yes If yes, how lon04/2016 Diagnosis for this medication: Depression, unspecified depression type (F32.9); Anxiety (F41.9) Prior medications trialed in this patient: Medication: sertraline 25 mg Approx Dates: 5499-7026 Outcome/Adverse Reactions: inadequate response Medication: fluoxetine 10 mg Approx Dates: 2016 Outcome/Adverse Reactions: inadequate response Medication: wellbutrin Approx Dates: 2016 Outcome/Adverse Reactions: inadequate response documented in this encounter Plan of Treatment Not on file documented as of this encounter Visit Diagnoses Not on filedocumented in this encounter Care Teams Steward/Stewardess Night Relationship Specialty Start Date End Date Carlos Alberto Ag MD PCP - General General Internal Medicine 04/26/17 10/31/19 documented as of this encounter
--- OUTSIDE RECORDS SUMMARY | 2024-04-13 16:36 | XMS_ITS | Encounter Summary ---
Author Organization [facility] [place] [address] Care Team Providers Care Tubing Mill Operator Name Role Phone Carlos Alberto Ag MD Primary Care Provider Unavailable Reason for Visit * Reason Onset Date Comments Other 08/28/2019 Encounter Details Date Type Department Care Team (Late st Contact Info) Description 08/28/2019 Telephone [place] [phone] Carmen Vaca [facility] [place] [address] Other Social History Tobacco Use Types Packs/Day [...] Miscellaneous Notes * Telephone Encounter - Carmen [facility] - 08/28/2019 1:30 PM EDT [...] bad experiences in therapy stating I can alcoholic counselor 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 Patient is currently out of [...] Ag MD [ ] Psychiatrist Medications 08/21/19 0434 Medication Sig Taking? omeprazole (PriLOSEC) 20 mg [...] daily. Please call to schedule an appt: [phone] venlafaxine (EFFEXOR-XR) 150 mg Capsule, Sust. Release [...] National Suicide Prevention Lifeline at (TALK) or [facility] [phone] Carmen Vaca [facility] Behavioral Health Clinician ([facility]) Primary Care & Psychiatry Collaborative Care [address] [phone] [facility] [phone] Pager [phone] documented in this encounter Plan of Treatment Not on file documented as of this encounter Visit Diagnoses Not on filedocumented in this encounter Care Teams Tubing Mill Operator Relationship Specialty Start Date End Date Carlos Alberto Ag MD PCP - General General Internal Medicine 04/26/17 10/31/19 documented as of this encounter
--- OUTSIDE RECORDS SUMMARY | 2024-04-13 16:36 | XMS_ITS | Encounter Summary ---
Author Organization [facility] [place] [address] Care Team Providers Care Design Specialist Name Role Phone Carlos Alberto Ag MD Primary Care Provider Unavailable Reason for Visit * Reason Onset Date Comments Medication Refill 11/16/2018 Encounter Details Date Type Department Care Team (Late st Contact Info) Description 11/16/2018 Refill Internal Medicine at [facility] [place] [address] Carlos Alberto Ag MD Gastroesophageal reflux disease, [...] hypertension documented in this encounter Care Teams Design Specialist Relationship Specialty Start Date End Date Carlos Alberto Ag MD PCP - General General Internal Medicine 04/26/17 10/31/19 documented as of this encounter
--- OUTSIDE RECORDS SUMMARY | 2024-04-13 16:36 | XMS_ITS | Encounter Summary ---
Author Organization [facility] [place] [address] Care Team Providers Care Environmental Protection Economist Name Role Phone Carlos Alberto Ag MD Primary Care Provider Unavailable Encounter Details Date Type Department Care Team ([facility] st Contact Info) Description 06/23/2018 Telephone Internal Medicine at [facility] [place] [address] Rosemary Bass Social History Tobacco Use Types [...] on filedocumented in this encounter Care Teams Environmental Protection Economist Relationship Specialty Start Date End Date Carlos Alberto Ag MD PCP - General General Internal Medicine 04/26/17 10/31/19 documented as of this encounter
--- OUTSIDE RECORDS SUMMARY | 2024-04-13 16:36 | XMS_ITS | Encounter Summary ---
Author Organization [facility] [place] [address] Care Team Providers Care Fermenting Cellars Receiver Name Role Phone Carlos Alberto Ag MD Primary Care Provider Unavailable Reason for Visit * Reason Onset Date Comments Medication Refill 04/03/2019 Encounter Details Date Type Department Care Team (Late st Contact Info) Description 04/03/2019 Refill Internal Medicine at [facility] [place] [address] Gail Reilly LPN Essential hypertension; Uncontrolled type [...] insulin documented in this encounter Care Teams Fermenting Cellars Receiver Relationship Specialty Start Date End Date Carlos Alberto Ag MD PCP - General General Internal Medicine 04/26/17 10/31/19 documented as of this encounter
--- OUTSIDE RECORDS SUMMARY | 2024-04-13 16:36 | XMS_ITS | Encounter Summary ---
Author Organization [facility] [place] [address] Care Team Providers Care Transfer And Line Up Worker Name Role Phone Carlos Alberto Ag MD Primary Care Provider Unavailable Reason for Visit * Reason Onset Date Comments Medication Refill 09/09/2019 Encounter Details Date Type Department Care Team (Late st Contact Info) Description 09/09/2019 Refill Internal Medicine at [facility] [place] [address] Carlos Alberto Ag MD Uncontrolled type 2 [...] insulin documented in this encounter Care Teams Transfer And Line Up Worker Relationship Specialty Start Date End Date Carlos Alberto Ag MD PCP - General General Internal Medicine 04/26/17 10/31/19 documented as of this encounter
--- OUTSIDE RECORDS SUMMARY | 2024-04-13 16:36 | XMS_ITS | Encounter Summary ---
Author Organization [facility] [place] [address] Care Team Providers Care Airframe Technical Officer Name Role Phone Carlos Alberto Ag MD Primary Care Provider Unavailable Reason for Visit * Reason Comments Medication Refill Encounter Details Date Type Department Care Team (Late st Contact Info) Description 02/20/2019 Refill Internal Medicine at [facility] [place] [address] Carlos Alberto Ag MD Gastroesophageal reflux disease, [...] specified documented in this encounter Care Teams Airframe Technical Officer Relationship Specialty Start Date End Date Carlos Alberto Ag MD PCP - General General Internal Medicine 04/26/17 10/31/19 documented as of this encounter
--- OUTSIDE RECORDS SUMMARY | 2024-04-13 16:36 | XMS_ITS | Encounter Summary ---
Author Organization [facility] [place] [address] Care Team Providers Care Architect Marine Name Role Phone Carlos Alberto Ag MD Primary Care Provider Unavailable Reason for Visit * Reason Comments Cough +1 week plus of coug jacob, chest hurts because of coughing so much, phleghm mainly dark green Encounter Details Date Type Department Care Team (Late st Contact Info) Description 09/15/2017 9:00 AM EDT Office Visit Internal Medicine [facility] [place] [phone] Adan Markham MD Viral URI with cough Social History Tobacco [...] discussed symptomatic management of her hersymptoms including [id number]-[id number] cough suppressant, saline nasal spray, oqkf-qfy-[id number] analgesics, and continuing adequate hydration. She was advised to return to the clinic if her symptoms do not improve or become worse. Viral URI - Symptomatic management as above - Return precautions discussed F/U with PCP Adan Markham MD ([place]) Internal Medicine, PGY2 Pager #[phone] * Antonio Hernandez MD - 09/15/2017 9:00 [...] site documented in this encounter Care Teams Architect Marine Relationship Specialty Start Date End Date Carlos Alberto Ag MD PCP - General General Internal Medicine 04/26/17 10/31/19 documented as of this encounter
--- OUTSIDE RECORDS SUMMARY | 2024-04-13 16:36 | XMS_ITS | Encounter Summary ---
Author Organization [facility] [place] [address] Care Team Providers Care Manager Of Case Management Name Role Phone Carlos Alberto Ag MD Primary Care Provider Unavailable Reason for Visit * Reason Comments Medication Refill Encounter Details Date Type Department Care Team (Late st Contact Info) Description 01/14/2018 Refill Internal Medicine at [facility] [place] [address] Carlos Alberto Ag MD Uncontrolled type 2 [...] insulin documented in this encounter Care Teams Manager Of Case Management Relationship Specialty Start Date End Date Carlos Alberto Ag MD PCP - General General Internal Medicine 04/26/17 10/31/19 documented as of this encounter
--- OUTSIDE RECORDS SUMMARY | 2024-04-13 16:36 | XMS_ITS | Encounter Summary ---
Author Organization [facility] [place] [address] Care Team Providers Care Fence Installer Helper Name Role Phone Carlos Alberto Ag MD Primary Care Provider Unavailable Reason for Visit * Reason Onset Date Comments Other 08/22/2019 Encounter Details Date Type Department Care Team (Late st Contact Info) Description 08/22/2019 Telephone [place] [phone] Carmen Vaca [facility] [place] [address] Other Social History Tobacco Use Types Packs/Day [...] Notes * Telephone Encounter - Carmen Vaca [facility] - 08/22/2019 10:54 AM EDT Primary Care & Psychiatry Collaborative Care Called to follow up on referral from Dr. Ag. [facility]. Plan to sent my message as well to connect and follow up on mental health symptoms. Carmen Vaca M.S., [facility] Behavioral Health Clinician ([facility]) Primary Care & Psychiatry Collaborative Care [facility] Direct # [phone] Clinic#: [phone] Pager [phone] documented in this encounter Plan of Treatment Not on file documented as of this encounter Visit Diagnoses Not on filedocumented in this encounter Care Teams Fence Installer Helper Relationship Specialty Start Date End Date Carlos Alberto gA MD PCP - General General Internal Medicine 04/26/17 10/31/19 documented as of this encounter
--- OUTSIDE RECORDS SUMMARY | 2024-04-13 16:36 | XMS_ITS | Encounter Summary ---
Author Organization [facility] [place] [address] Care Team Providers Care Outside Laborer Name Role Phone Carlos Alberto Ag MD Primary Care Provider Unavailable Reason for Visit * Reason Onset Date Comments Other 09/06/2019 Encounter Details Date Type Department Care Team ([facility] st Contact Info) Description 09/06/2019 Telephone [place] [phone] Carmen Vaca [facility] [place] [address] Other Social History Tobacco Use Types Packs/Day [...] Notes * Telephone Encounter - Carmen Vaca [facility] - 09/06/2019 9:46 AM EDT Primary Care & Psychiatry Collaborative Care Tried to call both listed phone numbers to follow up on IMP[facility] and referral to Dr. Sanchez. Left .Followed up with my message with attached questionnaires. Carmen Vaca M.S., [facility] Behavioral Health Clinician ([facility]) Primary Care & Psychiatry Collaborative Care [facility] Direct # [phone] Clinic#: [phone] Pager [phone] documented in this encounter Plan of Treatment Not on file documented as of this encounter Visit Diagnoses Not on filedocumented in this encounter Care Teams Outside Laborer Relationship Specialty Start Date End Date Carlos Alberto Ag MD PCP - General General Internal Medicine 04/26/17 10/31/19 documented as of this encounter
--- OUTSIDE RECORDS SUMMARY | 2024-04-13 16:36 | XMS_ITS | Encounter Summary ---
Author Organization [facility] [place] [address] Care Team Providers Care Slicing Machine Operator/Tender Name Role Phone Carlos Alberto Ag MD Primary Care Provider Unavailable Encounter Details Date Type Department Care Team (Late st Contact Info) Description 03/30/2019 Orders Only Internal Medicine at [facility] [place] [address] Carlos Alberto Ag MD Essential hypertension; Uncontrolled [...] tract documented in this encounter Care Teams Slicing Machine Operator/Tender Relationship Specialty Start Date End Date Carlos Alberto Ag MD PCP - General General Internal Medicine 04/26/17 10/31/19 documented as of this encounter
--- OUTSIDE RECORDS SUMMARY | 2024-04-13 16:37 | XMS_ITS | Encounter Summary ---
Author Organization [facility] Address [facility] [place] [address] Care Team Providers Care Wood Finisher Name Role Phone Pita Narayanan MD Primary Care Provider [phone] Encounter Details Date Type Department Care Team (Late st Contact Info) Description 08/14/2016 Telephone Internal Medicine at [facility] [address] [place] [address] Pita Narayanan MD [facility] [place] [address] Social History Tobacco Use Types Packs/Day Years [...] on filedocumented in this encounter Care Teams Wood Finisher Relationship Specialty Start Date End Date Pita Narayanan MD [facility] [address] [place] [address] PCP - General General Internal Medicine 01/28/1604/22 documented as of this encounter
--- OUTSIDE RECORDS SUMMARY | 2024-04-13 16:37 | XMS_ITS | Encounter Summary ---
Author Organization [facility] [place] [address] Care Team Providers Care Special Programs Director Name Role Phone Carlos Alberto Ag MD Primary Care Provider Unavailable Reason for Visit * Reason Comments Follow-up Encounter Details Date Type Department Care Team ([facility] st Contact Info) Description 08/19/2017 2:00 PM EDT Office [place] [address] Malgorzata Pappas, CYLINDER HEAD ASSEMBLER [facility] GENER[facility] [place] [address] Type 2 diabetes mellitus without complication, without [...] Instructions * Patient Instructions* Malgorzata Pappas, CYLINDER HEAD ASSEMBLER - 08/19/2017 2:37 PM EDT Images from the original note were not included. Epidermoid Cyst: Care Instructions Your Care Instructions An epidermoid (say ym-pvi-VPJ-manish) cyst is a lump just under the [...] Where can you learn more? Visit our [employer] information library at http://Home Inventory S[pecialists/Universal Biosensorso. You can also view health information on 6Waves, your personal patient account. Log in or sign uptoday. Enter S615 in the search box to learn more about Epidermoid Cyst: Care Instructions. Current as of: January 30, 2016 Content Version: 11.4 ?? [id number] nanoMR. Care instructions adapted under license by [facility]. If you have questions about a medical condition or this instruction, always ask your healthcare professional. nanoMR disclaims any warranty or liability for your [...] more? Visit our health information library at http://Home Inventory S[pecialists/Daegisinfo. You can also view health information on 6Waves, your personal patient account. Log in or sign uptoday. Enter S615 in the search box to learn more about Epidermoid Cyst: Care Instructions. Current as of: January 30, 2016 Content Version: 11.4 ?? [id number] nanoMR. Care instructions adapted under license by [facility]. If you have questions about a medical condition or this instruction, always ask your healthcare professional. 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 Small lesion on mid back for [...] Hemoglobin A1c 6.9(H) 4.3 - 5.6 % [facility] Comment: Reference Range: 4.3 - [...] Mellitus, Diabetes Care 2013; 36: Suppl. 1, S67-14 Estimated Average Glucose 151 mg/dL [facility] Comment: eAG equivalents for HbA1c [...] into estimated average glucose values. ??Diabetes Care 2008:31(8):3970-0956. Blood specimen (specimen) 08/19/2017 3:27 PM EDT 08/19/2017 3:34 PM EDT Narrative Resulting Agency Comment Spec In Lab Malgorzata Pappas APRN CHEMISTRY ORDERABLES [facility] [place] [place] [address] * (ABNORMAL) Basic Metabolic Panel (non-fasting) (08/19/2017 3:27 PM EDT) Glucose 234(H) 65 - 199 mg/dL [facility] Comment:Diabetes: >=200 mg/d L plus symptoms Blood Urea Nitrogen 14 8 - 18 mg/dL [facility] Creatinine 0.70 0.70 - 1.20 mg/dL [facility] Sodium 138 135 - 145 mmol/L [facility] Potassium 3.9 3.5 - 5.0 mmol/L [facility] Comment: Please note: ??Patients with WBC >100,000 may have falsely elevated Potassium levels. ??For accurate Potassium quantification in these patients send serum separator tube (gold top) for subsequent determinations. ??Contact the Clinical Chemistry Laboratory if there are any questions. Chloride 98 98 - 107 mmol/L [facility] Carbon Dioxide 26 22 - 31 mmol/L [facility] Anion Gap 14 5 - 15 mmol/L [facility] Calcium 9.0 8.5 - 10.5 mg/dL [facility] Est Glomerular Filtration Rate >60 >=60 [facility] Comment: The reported eGFR should be multiplied by 1.2 for patients. The MDRD is not an appropriate measure of renal function for patients with body mass extremes or in patients with acute kidney failure. http://CostPrize/DHnkdep http://CostPrize/DHMCnkf Blood specimen (specimen) 08/19/2017 3:27 PM EDT 08/19/2017 3:34 PM EDT Narrative Resulting Agency Comment Spec In Lab Malgorzata Pappas APRN CHEMISTRY ORDERABLES Performing Organization Address City/State/[facility] Co de Phone Number [facility] [place] [address] * XR Pelvis w AP & Lat [...] neck of the right femur. Procedure Note aDnte Thorne MD - 08/19/2017 EXAMINATION: XR PELVIS [...] thigh documented in this encounter Care Teams Special Programs Director Relationship Specialty Start Date End Date Carlos Alberto Ag MD PCP - General General Internal Medicine 04/26/17 10/31/19 documented as of this encounter
--- OUTSIDE RECORDS SUMMARY | 2024-04-13 16:37 | XMS_ITS | Encounter Summary ---
Author Organization [facility] [place] [address] Care Team Providers Care Hotel Or Motel Cleaning Supervisor Name Role Phone Pita Narayanan MD Primary Care Provider Reason for Visit * Reason Comments Medication Refill Encounter Details Date Type Department Care Team ([facility] st Contact Info) Description 12/15/2013 Refill Internal Medicine at [facility] [address] [place] [address] Pita Narayanan MD [facility] [place] [address] Diabetes mellitus type 2, uncomplicated (Primary Dx); [...] maintenance Routine general medical examination at a [facility] care facility Gastroesophageal reflux disease Esophageal reflux documented in this encounter Care Teams Hotel Or Motel Cleaning Supervisor Relationship Specialty Start Date End Date Pita Narayanan MD [facility] [address] [facility] [place] [address] PCP - General 12/01/12 04/21/15 documented as of this encounter
--- OUTSIDE RECORDS SUMMARY | 2024-04-13 16:37 | XMS_ITS | Encounter Summary ---
Author Organization [facility] Address [facility] [place] [address] Care Team Providers Care Outgoing Inspector Name Role Phone Carlos Alberto Ag MD Primary Care Provider Unavailable Reason for Visit * Physical Therapy (Routine) - Closed Specialty Diagnoses / Procedures Referred By Contac t Referred To Contact Physical Therapy Diagnoses Chronic right hip pain Carlos Alberto Ag MD [facility] GENERAL INTERNAL [place] [address] [address] [place] [address] Referral ID Status Reason Start Date Expiration Date V isits Requested Visits Authorized [id number] Closed Evaluate and Treat 05/13/2017 05/13/2018 1 1 Encounter Details Date Type Department Care Team (Late st Contact Info) Description 06/03/2017 8:00 AM EST Office Visit Physical Therapy at [facility] [address] [place] [address] Navid Enamorado, PT [facility] PHYSICAL MEDICINE & [place] [address] Chronic right hip pain Social History Tobacco [...] symptoms. 2. Improved awareness of compensation Therapy Mcc Goals ( 6wks) Patient will... 1. increase [...] Science Education Total Treatment time: 45 minutes: obedal, Total Timed Code Treatment: 0 minutes The [...] thigh documented in this encounter Care Teams Outgoing Inspector Relationship Specialty Start Date End Date Carlos Alberto Ag MD PCP - General General Internal Medicine 04/26/17 10/31/19 documented as of this encounter
--- OUTSIDE RECORDS SUMMARY | 2024-04-13 16:37 | XMS_ITS | Encounter Summary ---
Author Organization [facility] [place] [address] Care Team Providers Care Waiter/Waitress Room Service Name Role Phone Pita Narayanan MD Primary Care Provider [phone] Reason for Visit * Reason Comments Follow-up Pt states she has be en having issues in regards to her anti-depressant medication in the last few weeks. Encounter Details Date Type Department Care Team (Latest Contact Info) Description 01/29/2017 1:30 PM EDT Office Visit Internal Medicine at [address] [address] [place] [address] Depression, unspecified depression type; Anxiety; Uncontrolled type [...] #depo issue Switched from [facility] to [facility] Having trouble with this. Can't get the 104 mg dose any more at [facility]. Has to use the 150 mg [...] (!) 109 kg (240 lb 6.4 oz) MiX940% BMI 40.25 kg/m2 Alert, looks usual self, [...] from a script from 03/04 from her Stephen PCP. Just for 30 pills It is [...] type documented in this encounter Care Teams Waiter/Waitress Room Service Relationship Specialty Start Date End Date Pita Narayanan MD [facility] [address] [place] [address] PCP - General General Internal Medicine 01/28/1604/22 documented as of this encounter
--- OUTSIDE RECORDS SUMMARY | 2024-04-13 16:37 | XMS_ITS | Encounter Summary ---
Author Organization [facility] [place] [address] Care Team Providers Care Risk Specialist Name Role Phone Pita Narayanan MD Primary Care Provider Reason for Referral * Consultation (Routine) - Specialty Diagnoses / Procedures Referred By Jay flores Referred To Contact Sleep Center Diagnoses Obstructive sleep apnea Pita Narayanan MD [facility] [place] [address] [facility] Sleep Medicine [address] [place] [address] Referral ID Status Reason Start Date Expiration Date Visits Requested Visits Authorized [id number] Specialty Service Requested 05/27/2016 05/27/2017 1 1 Reason for Visit * Reason Comments Follow-up discuss hip and slee ping at some point, currently more concerned about depression and sugars Encounter Details Date Type Department Care Team (Late st Contact Info) Description 05/27/2016 2:00 PM EST Office Visit Internal Medicine at [facility] [address] [place] [address] Pita Narayanan MD [facility] [place] [address] Major depressive disorder, recurrent episode, [...] Will mail the lab slip. Get at [facility] in the week before the visit Fasting [...] not make it Has to reschedule The fishing worker called her No SI reported today [...] Will mail the lab slip. Get at [facility] in the week before the visit. FLP [...] Hepatitis B Surface Antibody, Quantitative <3.5 IU/L [facility] Comment: HepB Surface Ab Quant: Unvaccinated: < 8.5 IU/L Vaccinated: > 11.5 IU/L Hepatitis B Surface Antibody Negative [facility] Comment: Patient is presumed to be not vaccinated or immune to HBV infection. Expected Results: Vaccinated: Positive Unvaccinated: Negative Blood specimen (specimen) 03/05/2017 8:17 AM EST 03/05/2017 9:56 AM EST Narrative Resulting Agency Comment Spec In Lab Pita Narayanan MD CHEMISTRY ORDERABLES Performing Organization Address City/[facility]/ZIP Co de Phone Number [facility] [place] [address] * (ABNORMAL) Lipid Panel (03/05/2017 8:17 AM EST) Cholesterol, Total 166 <=239 mg/dL [facility] Triglyceride 309(H) <=199 mg/dL [facility] HDL Cholesterol 32(L) >=40 mg/dL [facility] LDL Cholesterol 72 <=190 mg/dL [facility] Cholesterol/HDL Ratio 5.2 ratio [facility] Lipid Interpretation See Note [facility] Comment: Lipid management should be guided by a patient? s ASCVD risk, goals and preferences. ACC/AHA Guidelines recommend high intensity statin if clinical ASCVD or LDL greater than or equal to 190 mg/dL. http://Tryouts.com/YIY-OXY-Nasyfaxlf Adults aged 40-75 with LDL 70-189 mg/dL should have their 10 year ASCVD risk estimated with the ACC/AHA ASCVD risk watch repair technician http://tools.acc.org/OTRFJ-Uvic-Dojnkygiw/ Statin should be discussed if risk greater [...] Narayanan MD CHEMISTRY ORDERABLES Performing Organization Address City/[facility]/ZIP Co de Phone Number [facility] [place] [address] documented in this encounter Visit Diagnoses Diagnosis [...] facility documented in this encounter Care Teams Risk Specialist Relationship Specialty Start Date End Date Pita Narayanan MD [facility] [address] [place] [address] PCP - General General Internal Medicine 01/28/1604/22 documented as of this encounter
--- OUTSIDE RECORDS SUMMARY | 2024-04-13 16:37 | XMS_ITS | Encounter Summary ---
Author Organization [facility] [place] [address] Care Team Providers Care Refueling Rampman Name Role Phone Dav Carlos MD Primary Care Provider [phone] Reason for Visit * Reason Comments Suture / Staple Removal Encounter Details Date Type Department Care Team ([facility] st Contact Info) Description 12/23/2011 9:45 AM EDT Office Visit Obstetrics and Gynecology at [facility] [place] [phone] Alexandre Powers RN Encounter for removal of [...] Primary documented in this encounter Care Teams Refueling Rampman Relationship Specialty Start Date End Date Dav Carlos MD PCP - General 10/01/10 11/30/12 documented as of this encounter
--- OUTSIDE RECORDS SUMMARY | 2024-04-13 16:37 | XMS_ITS | Encounter Summary ---
Author Organization [facility] Address [facility] [place] [address] Care Team Providers Care Painter Airbrush Name Role Phone Carlos Alberto Ag MD Primary Care Provider Unavailable Encounter Details Date Type Department Care Team (Latest Contact Info) Description 08/19/2017 2:44 PM EDT - 08/19/2017 11:59 PM EDT Hospital Encounter XRay at [address] [place] [address] Malgorzata Pappas, ENVIRONMENTAL PROTECTION ECONOMIST [facility] [place] [address] Pain in right hip Discharge Disposition: Home [...] thigh documented in this encounter Care Teams Painter Airbrush Relationship Specialty Start Date End Date Carlos Alberto Ag MD PCP - General General Internal Medicine 04/26/17 10/31/19 documented as of this encounter
--- OUTSIDE RECORDS SUMMARY | 2024-04-13 16:37 | XMS_ITS | Encounter Summary ---
Author Organization [facility] [place] [address] Care Team Providers Care Instructor Nurse Name Role Phone Pita Narayanan MD Primary Care Provider [phone] Reason for Visit * Reason Onset Date Comments No Show 08/19/2016 Encounter Details Date Type Department Care Team ([facility] Contact Info) Description 08/19/2016 Telephone Family Medicine at [facility] [address] [place] [address] Marilyn Mock No Show Social History Tobacco [...] on filedocumented in this encounter Care Teams Instructor Nurse Relationship Specialty Start Date End Date Pita Narayanan MD [facility] [address] [place] [address] PCP - General General Internal Medicine 01/28/1604/22 documented as of this encounter
--- OUTSIDE RECORDS SUMMARY | 2024-04-13 16:37 | XMS_ITS | Encounter Summary ---
Author Organization [facility] [place] [address] Care Team Providers Care Instrumentation And Control Technician Name Role Phone Pita Narayanan MD Primary Care Provider [phone] Encounter Details Date Type Department Care Team (Late st Contact Info) Description 04/29/2016 Telephone Psychiatry [place] [phone] Bhupinder Ray, SALES REP Social History Tobacco Use Types Packs/Day Years [...] this patient's well-being. Spoke with Marilyn of [facility] who will contact the patient today. documented in this encounter Plan of Treatment Not on file documented as of this encounter Visit Diagnoses Not on filedocumented in this encounter Care Teams Instrumentation And Control Technician Relationship Specialty Start Date End Date Pita Narayanan MD [facility] [address] [place] [address] PCP - General General Internal Medicine 01/28/1604/22 documented as of this encounter
--- OUTSIDE RECORDS SUMMARY | 2024-04-13 16:37 | XMS_ITS | Encounter Summary ---
Author Organization [facility] [place] [address] Care Team Providers Care Check Viewer Name Role Phone Enoch Medina MD Primary Care Provider [phone] Reason for Visit * Reason Comments Medication Refill Encounter Details Date Type Department Care Team ([facility] st Contact Info) Description 10/16/2016 Refill Internal Medicine at [facility] [address] [place] [address] Pita Narayanan MD [facility] [place] [address] Essential hypertension Social History Tobacco Use Types [...] hypertension documented in this encounter Care Teams Check Viewer Relationship Specialty Start Date End Date Enoch Medina MD [facility] [place] [address] PCP - General Family Medicine 08/22/20 06/03/21 documented as of this encounter
--- OUTSIDE RECORDS SUMMARY | 2024-04-13 16:37 | XMS_ITS | Encounter Summary ---
Author Organization [facility] Address [facility] [place] [address] Care Team Providers Care Glue Spreading Machine Operator Name Role Phone Carlos Alberto Ag MD Primary Care Provider Unavailable Reason for Referral * Consultation (Routine) - Closed Specialty Diagnoses / Procedures Referred By Contac t Referred To Contact Sleep Center Diagnoses Obstructive sleep apnea Carlos Alberto Ag MD [facility] [address] [place] [address] [facility] Sleep Medicine [address] [place] [address] Referral ID Status Reason Start Date Expiration Date V isits Requested Visits Authorized [id number] Closed Specialty Service Requested 05/13/2017 05/13/2018 1 1 * Physical Therapy (Routine) - Closed Specialty Diagnoses / Procedures Referred By Contac t Referred To Contact Physical Therapy Diagnoses Chronic right hip pain Carlos Alberto Ag MD [facility] [address] [place] [address] [address] [place] [address] Referral ID Status Reason Start Date Expiration Date V isits Requested Visits Authorized [id number] Closed Evaluate and Treat 05/13/2017 05/13/2018 1 1 Reason for Visit * Reason Comments Establish Care Encounter Details Date Type Department Care Team (Late st Contact Info) Description 05/13/2017 3:30 PM EST Office [place] [address] Carlos Alberto Ag MD Type 2 diabetes mellitus without complication, without [...] foods, chocolate or tobacco. Patient lives in [place], [place] with her 2 daughters. Her mother stays overnight when the patient is working. She works at [employer] in [place], [place]. PHQ-9 QUESTIONNAIRE (AMB) 05/13/2017 PHQ - [...] in 3 months Carlos Alberto Ag MD #[id number] Health maintenance updated: Health Maintenance Topic Date [...] adult Completed ??? 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 1, F27-44 Estimated Average Glucose 160 mg/dL [facility] [...] into estimated average glucose values. ??Diabetes Care 2008:31(8):3073-5438. Blood specimen (specimen) 06/03/2017 9:44 AM EST 06/03/2017 9:51 AM EST Narrative Resulting Agency Comment Spec In Lab Jacqueline Cleveland MD CHEMISTRY ORDERABLES [facility] [place] [address] * (ABNORMAL) Basic Metabolic Panel (non-fasting) (06/03/2017 9:44 AM EST) Glucose 177 65 - 199 mg/dL [facility] Comment:Diabetes: >=200 mg/d L plus symptoms Blood Urea Nitrogen 16 8 - 18 mg/dL [facility] Creatinine 0.68(L) 0.70 - 1.20 mg/dL [facility] Sodium 140 135 - 145 mmol/L [facility] Potassium 4.0 3.5 - 5.0 mmol/L [facility] Comment: Please note: ??Patients with WBC >100,000 may have falsely elevated Potassium levels. ??For accurate Potassium quantification in these patients send serum separator tube (gold top) for subsequent determinations. ??Contact the Clinical Chemistry Laboratory if there are any questions. Chloride 99 98 - 107 mmol/L [facility] Carbon Dioxide 27 22 - 31 mmol/L [facility] Anion Gap 14 5 - 15 mmol/L [facility] Calcium 9.0 8.5 - 10.5 mg/dL [facility] Est Glomerular Filtration Rate >60 >=60 [facility] Comment: The reported eGFR should be multiplied by 1.2 for patients. The MDRD is not an appropriate measure of renal function for patients with body mass extremes or in patients with acute kidney failure. http://Burst Media.Walk-in/DHnkdep http://Burst Media.Walk-in/DHMCnkf Blood specimen (specimen) 06/03/2017 9:44 AM EST 06/03/2017 9:51 AM EST Narrative Resulting Agency Comment Spec In Lab Jacqueline Cleveland MD CHEMISTRY ORDERABLES Performing Organization Address [facility] Co de Phone Number [facility] [place] [address] * U Albumin/Cre Ratio (06/03/2017 9:41 AM EST) Albumin / Creatinin Ratio, Urine Not Calculated 0 - 29 mcg/mg Cr [facility] Comment: Reference Ranges: <30 mcg/mg: [...] 2, 357? 362 Albumin, Urine <3.0 mg/L [facility] Creatinine, Urine 120 mg/dL [facility] Urine specimen (specimen) 06/03/2017 9:41 AM EST 06/03/2017 9:51 AM EST Narrative Resulting Agency Comment Spec In Lab Jacqueline Cleveland MD URINE ORDERABLES Performing Organization Address [facility] Co de Phone Number [facility] [place] [address] documented in this encounter Visit Diagnoses Diagnosis Type 2 diabetes mellitus without complication, without long-term current use of insulin- Primary Hypertension, unspecified type Chronic right hip pain Pain in joint, pelvic region and thigh Obstructive sleep apnea Obstructive sleep apnea (adult) (pediatric) Gastroesophageal reflux disease, esophagitis presence not specified Depression, unspecified depression type documented in this encounter Care Teams Glue Spreading Machine Operator Relationship Specialty Start Date End Date Carlos Alberto Ag MD PCP - General General Internal Medicine 04/26/17 10/31/19 documented as of this encounter
--- OUTSIDE RECORDS SUMMARY | 2024-04-13 16:37 | XMS_ITS | Encounter Summary ---
Author Organization [facility] [place] [address] Care Team Providers Care Sewing Room Supervisor Name Role Phone Carlos Alberto Ag MD Primary Care Provider Unavailable Encounter Details Date Type Department Care Team ([facility] st Contact Info) Description 06/03/2017 Telephone Internal Medicine at [facility] [place] [address] Carlos Alberto Ag MD Social History Tobacco [...] on filedocumented in this encounter Care Teams Sewing Room Supervisor Relationship Specialty Start Date End Date Carlos Alberto Ag MD PCP - General General Internal Medicine 04/26/17 10/31/19 documented as of this encounter
--- OUTSIDE RECORDS SUMMARY | 2024-04-13 16:37 | XMS_ITS | Encounter Summary ---
Author Organization [facility] [place] [address] Care Team Providers Care Infection Preventionist Name Role Phone Pita Narayanan MD Primary Care Provider [phone] Reason for Visit * Reason Onset Date Comments [facility] En[facility] Details Date Type Department Care Team (Late st Contact Info) Description 08/21/2016 Refill Family Medicine at [facility] [address] [place] [address] Michael Vazquez MA Type 2 diabetes mellitus without complication, unspecified joint terminal attack controller insulin use status (Primary Dx) Social History [...] Authorization for Primary [place] [address] Patient: Sarah Moncada Patient : 1980 Subscriber Insurance: [employer] Sent via: [employer] Thomas: [id number] Physician: Pita Narayanan MD Return [...] Type 2 diabetes mellitus without complication, unspecified group home insulin use status- Primary documented in this encounter Care Teams Infection Preventionist Relationship Specialty Start Date End Date Pita Narayanan MD [facility] [address] [facility] [facility] [place] [address] PCP - General General Internal Medicine 01/28/1604/22 documented as of this encounter
--- OUTSIDE RECORDS SUMMARY | 2024-04-13 16:37 | XMS_ITS | Encounter Summary ---
Author Organization [facility] [place] [address] Care Team Providers Care Qc Analyst Name Role Phone Pita Narayanan MD Primary Care Provider [phone] Encounter Details Date Type Department Care Team (Late st Contact Info) Description 08/21/2016 Telephone Family Medicine at [facility] [address] [place] [address] Girish Mckay Jr., [place] [address] Social History Tobacco Use Types Packs/Day Years [...] on filedocumented in this encounter Care Teams Qc Analyst Relationship Specialty Start Date End Date [place] [address] PCP - General General Internal Medicine 01/28/1604/22 documented as of this encounter
--- OUTSIDE RECORDS SUMMARY | 2024-04-13 16:37 | XMS_ITS | Encounter Summary ---
Author Organization [facility] [place] [address] Care Team Providers Care Waredresser Name Role Phone Pita Narayanan MD Primary Care Provider [phone] Reason for Visit * Reason Onset Date Comments Other 02/04/2017 med reconcilliat ion Encounter Details Date Type Department Care Team (Late st Contact Info) Description 02/04/2017 Telephone Internal Medicine at [facility] [address] [place] [address] Yoly Palacios RN Other (med reconcilliation) Social [...] on filedocumented in this encounter Care Teams Waredresser Relationship Specialty Start Date End Date Pita Narayanan MD [facility] [address] PATRIC[facility] [place] [address] PCP - General General Internal Medicine 01/28/1604/22 documented as of this encounter
--- OUTSIDE RECORDS SUMMARY | 2024-04-13 16:37 | XMS_ITS | Encounter Summary ---
Author Organization [facility] Address [facility] [place] [address] Care Team Providers Care Home Health Billing Specialist Name Role Phone Pita Narayanan MD Primary Care Provider [phone] Reason for Visit * Reason Comments Follow-up DM; has lump under s kin in left armpit, first noticed about 2 wks ago, getting larger and moving forward; discuss venlafaxine dosage, increase?; did Depo at home on [facility] Encounter Details Date Type Department Care Team (Late st Contact Info) Description 08/20/2016 2:30 PM EDT Office Visit Internal Medicine at [address] [address] Pita Narayanan MD [facility] [place] [address] Uncontrolled type 2 diabetes mellitus without complication, [...] Clinician follow up: 3 months [] Certified Environmental Program Manager/Endocrine follow up/referral: [x] Referrals/Labs/Testing: up to date [...] planning Schedule change for 1-2 months, about nursing home through this Was working 6 days [...] Clinician follow up: 3 months [] Certified Environmental Program Manager/Endocrine follow up/referral: [x] Referrals/Labs/Testing: up to date [...] hypertension documented in this encounter Care Teams Home Health Billing Specialist Relationship Specialty Start Date End Date Pita Narayanan MD [facility] [address] [facility] [place] [address] PCP - General General Internal Medicine 01/28/1604/22 documented as of this encounter
--- OUTSIDE RECORDS SUMMARY | 2024-04-13 16:37 | XMS_ITS | Encounter Summary ---
Author Organization [facility] [place] [address] Care Team Providers Care Degreasing Wheel Operator Name Role Phone Pita Narayanan MD Primary Care Provider [phone] Encounter Details Date Type Department Care Team (Late st Contact Info) Description 04/29/2016 Telephone Internal Medicine at [facility] [address] [place] [address] Pita Narayanan MD [facility] [place] [address] Social History Tobacco Use Types Packs/Day Years [...] on filedocumented in this encounter Care Teams Degreasing Wheel Operator Relationship Specialty Start Date End Date Pita Narayanan MD [facility] [place] [id number] PCP - General General Internal Medicine 01/28/1604/22 documented as of this encounter
--- OUTSIDE RECORDS SUMMARY | 2024-04-13 16:37 | XMS_ITS | Encounter Summary ---
Author Organization [facility] [place] [address] Care Team Providers Care Chute Puller Name Role Phone Pita Narayanan MD Primary Care Provider [phone] Encounter Details Date Type Department Care Team (Late st Contact Info) Description 06/30/2016 Telephone Internal Medicine at [facility] [address] [place] [address] Pita Narayanan MD [facility] [place] [address] Social History Tobacco Use Types Packs/Day Years [...] on filedocumented in this encounter Care Teams Chute Puller Relationship Specialty Start Date End Date Pita Narayanan MD [facility] [address] DOWNEY [facility] [place] [address] PCP - General General Internal Medicine 01/28/1604/22 documented as of this encounter
--- OUTSIDE RECORDS SUMMARY | 2024-04-13 16:37 | XMS_ITS | Encounter Summary ---
Author Organization [facility] [place] [address] Care Team Providers Care Refurbish Technician Name Role Phone Pita Narayanan MD Primary Care Provider [phone] Encounter Details Date Type Department Care Team (Late st Contact Info) Description 09/21/2016 Telephone Internal Medicine at [facility] [address] [place] [address] Faye Jackson RN Social History [...] nurse, no answer. Can be reached at [phone] until 6:30 this evening * Telephone Encounter [...] on filedocumented in this encounter Care Teams Refurbish Technician Relationship Specialty Start Date End Date Pita Narayanan MD [facility] [address] DOWNEY [facility] [place] [address] PCP - General General Internal Medicine 01/28/1604/22 documented as of this encounter
--- OUTSIDE RECORDS SUMMARY | 2024-04-13 16:37 | XMS_ITS | Encounter Summary ---
Author Organization [facility] [place] [address] Care Team Providers Care Quotation Clerk Name Role Phone Pita Narayanan MD Primary Care Provider [phone] Reason for Visit * Reason Onset Date Comments Medication Refill 01/09/2013 Encounter Details Date Type Department Care Team (Late st Contact Info) Description 01/09/2013 Refill Obstetrics [place] [address] Marilyn Reilly MD [facility] [place] [address] Hypertension (Primary Dx) Social History Tobacco Use [...] hypertension documented in this encounter Care Teams Quotation Clerk Relationship Specialty Start Date End Date Pita Narayanan MD [facility] DR PATRICIO [place] [address] PCP - General 12/01/12 04/21/15 documented as of this encounter
--- OUTSIDE RECORDS SUMMARY | 2024-04-13 16:37 | XMS_ITS | Encounter Summary ---
Author Organization [facility] [place] [address] Care Team Providers Care Municipal Court Judge Name Role Phone Pita Narayanan MD Primary Care Provider [phone] Encounter Details Date Type Department Care Team (Late st Contact Info) Description 05/14/2016 Abstract Internal Medicine at [facility] [address] [place] [address] Padma Miller, [facility] Social History Tobacco Use Types Packs/Day [...] A1c (09/18/2015 10:06 AM EDT) Hemoglobin A1c 7.5(DOUBLE END SEWER AL/ABN) EXTERNAL LAB Comment:external reference r brandon 5.0-5.6 Blood specimen (specimen) 09/18/2015 10:06 AM EDT Historical Provider CHEMISTRY ORDERAB LES EXTERNAL LAB * (ABNORMAL) Lipid External Results (09/18/2015) Cholesterol, Total 154(Exter nal Lab) mg/dL EXTERNAL LAB HDL Cholesterol 27(DOUBLE END SEWER AL/ABN) mg/dL EXTERNAL LAB Comment:external reference r brandon 40-60 LDL Cholesterol 58(DOUBLE END SEWER AL/ABN) mg/dL EXTERNAL LAB Comment:external reference r brandon 60-100 Triglyceride 347(EXTER NAL/ABN) mg/dL EXTERNAL LAB Comment:external reference r brandon 35-150 09/18/2015 Historical Provider POINT OF CARE GONZALES T ORDERABLES Performing Organization Address [facility]/ZIP Co de Phone Number EXTERNAL LAB * (ABNORMAL) CBC / CMP / Thyroid External Results (09/18/2015) Sodium 136(Exter nal Lab) 137 - 147 EXTERNAL LAB Potassium 4.0(Exter nal Lab) 3.4 - 5.3 EXTERNAL LAB Chloride 100(Exter nal Lab) 99 - 108 EXTERNAL LAB Carbon Dioxide 29(Cloth Sponger al Lab) 22 - 29 EXTERNAL LAB Blood Urea Nitrogen 15(Cloth Sponger al Lab) EXTERNAL LAB Creatinine 0.63(Exte rnal Lab) EXTERNAL LAB Glucose 178(EXTER NAL/ABN) EXTERNAL LAB Comment:external reference r brandon 70-110 Calcium 8.3(EXTER NAL/ABN) 8.7 - 10.7 EXTERNAL LAB Comment:external reference r brandon 8.6-10.5 Protein, Total 6.7(Exter nal Lab) 6.4 - 8.2 EXTERNAL LAB Albumin 3.7(Exter nal Lab) EXTERNAL LAB Bilirubin, Total 0.3(Exter nal Lab) EXTERNAL LAB Alkaline Phosphatase 62(Cloth Sponger al Lab) EXTERNAL LAB Aspartate Aminotransferase 12(Cloth Sponger al Lab) 13 - 35 EXTERNAL LAB Alanine Aminotransferase 28(Cloth Sponger al Lab) 7 - 35 EXTERNAL LAB 09/18/2015 Historical Provider EXTERNAL LAB KELLEN ADEN EXTERNAL LAB documented in this encounter Visit Diagnoses Not on filedocumented in this encounter Care Teams Municipal Court Judge Relationship Specialty Start Date End Date Pita Narayanan MD [facility] [address] PATRIC[address] [place] [address] PCP - General General Internal Medicine 01/28/1604/22 documented as of this encounter
--- OUTSIDE RECORDS SUMMARY | 2024-04-13 16:37 | XMS_ITS | Encounter Summary ---
Author Organization [facility] [place] [address] Care Team Providers Care Civil Project Engineer Name Role Phone Pita Narayanan MD Primary Care Provider [phone] Reason for Visit * Reason Onset Date Comments Medication Problem 01/12/2017 depo-provara Encounter Details Date Type Department Care Team (Late st Contact Info) Description 01/12/2017 Refill Internal Medicine at [facility] [address] [place] [address] Edel Rubi Social History Tobacco Use Types [...] 3:17 PM EDT Spoke with Keira at [facility]. She did actually receive the 104mg Depo [...] - 01/13/2017 8:09 AM EDT Spoke with [facility] pharmacist. Patient's current prescription for Depo-Provara is [...] Edel Putnam - 01/12/2017 3:16 PM EDT [facility] Percy Pendleton called to say that the depo-prevara is on back on order is there something else we want to prescribe? Pt is due in 4 days documented in this encounter Plan of Treatment Not on file documented as of this encounter Visit Diagnoses Not on filedocumented in this encounter Care Teams Civil Project Engineer Relationship Specialty Start Date End Date Pita Narayanan MD [facility] [address] PAT[address] DOWNEY [facility] [address] PCP - General General Internal Medicine 01/28/1604/22 documented as of this encounter
--- OUTSIDE RECORDS SUMMARY | 2024-04-13 16:37 | XMS_ITS | Encounter Summary ---
Author Organization [facility] [place] [address] Care Team Providers Care Meteorological Technician Name Role Phone Carlos Alberto Ag MD Primary Care Provider Unavailable Encounter Details Date Type Department Care Team (Latest Contact Info) Description 06/03/2017 9:25 AM EST Laboratory Appointment Lab [address] [facility] [place] [address] Hypertension, unspecified type; Type 2 diabetes mellitus [...] Hemoglobin A1c 7.2(H) 4.3 - 5.6 % [facility] Comment: Reference Range: 4.3 - [...] Mellitus, Diabetes Care 2013; 36: Suppl. 1, S67-66 Estimated Average Glucose 160 mg/dL [facility] Comment: [...] into estimated average glucose values. ??Diabetes Care 2008:31(8):7199-3730. Blood specimen (specimen) 06/03/2017 9:44 AM EST 06/03/2017 9:51 AM EST Narrative Resulting Agency Comment Spec In Lab Jacqueline Cleveland MD CHEMISTRY ORDERABLES [facility] [place] [address] * (ABNORMAL) Basic Metabolic Panel (non-fasting) (06/03/2017 9:44 AM EST) Glucose 177 65 - 199 mg/dL [facility] Comment:Diabetes: >=200 mg/d L plus symptoms Blood Urea Nitrogen 16 8 - 18 mg/dL [facility] Creatinine 0.68(L) 0.70 - 1.20 mg/dL [facility] Sodium 140 135 - 145 mmol/L [facility] Potassium 4.0 3.5 - 5.0 mmol/L [facility] Comment: Please note: ??Patients with WBC >100,000 may have falsely elevated Potassium levels. ??For accurate Potassium quantification in these patients send serum separator tube (gold top) for subsequent determinations. ??Contact the Clinical Chemistry Laboratory if there are any questions. Chloride 99 98 - 107 mmol/L [facility] Carbon Dioxide 27 22 - 31 mmol/L [facility] Anion Gap 14 5 - 15 mmol/L [facility] Calcium 9.0 8.5 - 10.5 mg/dL [facility] Est Glomerular Filtration Rate >60 >=60 [facility] Comment: The reported eGFR should be multiplied by 1.2 for patients. The MDRD is not an appropriate measure of renal function for patients with body mass extremes or in patients with acute kidney failure. [email or web address] [email or web address] Blood specimen (specimen) 06/03/2017 9:44 AM EST 06/03/2017 9:51 AM EST Narrative Resulting Agency Comment Spec In Lab Jacqueline Cleveland MD CHEMISTRY ORDERABLES [facility] [place] [address] * U Albumin/Cre Ratio (06/03/2017 9:41 AM EST) Albumin / Creatinin Ratio, Urine Not Calculated 0 - 29 mcg/mg Cr [facility] Comment: Reference Ranges: <30 mcg/mg: [...] 2, 357? 362 Albumin, Urine <3.0 mg/L [facility] Creatinine, Urine 120 mg/dL [facility] Urine specimen (specimen) 06/03/2017 9:41 AM EST 06/03/2017 9:51 AM EST Narrative Resulting Agency Comment Spec In Lab Jacqueline Cleveland MD URINE ORDERABLES [facility] [place] [address] documented in this encounter Visit Diagnoses Diagnosis Hypertension, unspecified type Type 2 diabetes mellitus without complication, without long-term current use of insulin documented in this encounter Care Teams Meteorological Technician Relationship Specialty Start Date End Date Carlos Alberto Ag MD PCP - General General Internal Medicine 04/26/17 10/31/19 documented as of this encounter
--- OUTSIDE RECORDS SUMMARY | 2024-04-13 16:37 | XMS_ITS | Encounter Summary ---
Author Organization [facility] Address [facility] [place] [address] Care Team Providers Care Explosive Ordnance Technician Name Role Phone Pita Narayanan MD Primary Care Provider [phone] Encounter Details Date Type Department Care Team (Latest Contact Info) Description 05/11/2016 10:15 AM EST Laboratory Appointment Lab at [facility] [address] [place] [address] Type 2 diabetes mellitus without complication, unspecified prison insulin use status; Essential hypertension Social History [...] Type 2 diabetes mellitus without complication, unspecified keno terminal operator insulin use status Essential hypertension documented in this encounter Results * (ABNORMAL) BMP w/fasting Glucose (05/11/2016 10:28 AM EST) Glucose Fasting 175(H) 65 - 99 mg/dL [facility] Comment: ?Fasting* Glucose Interpretive Criteria [...] of Diabetes Mellitus, Position Statement from the [place] [employer]. ??Diabetes Care, Volume 33, Supplement 1, Apr 2009 Blood Urea Nitrogen 15 8 - 18 mg/dL [facility] Creatinine 0.72 0.70 - 1.20 mg/dL [facility] Comment: Please note that the pediatric reference intervals supplied above were not validated at [facility]. Results from pediatric patients should be interpreted in conjunction to the patient's age, height and muscle mass. Sodium 142 135 - 145 mmol/L [facility] Potassium 4.3 3.5 - 5.0 mmol/L [facility] Comment: Please note: ??Patients with WBC >100,000 may have falsely elevated Potassium levels. ??For accurate Potassium quantification in these patients send serum separator tube (gold top) for subsequent determinations. ??Contact the Clinical Chemistry Laboratory if there are any questions. Chloride 102 98 - 107 mmol/L [facility] Carbon Dioxide 28 22 - 31 mmol/L [facility] Anion Gap 12 5 - 15 mmol/L [facility] Calcium 9.4 8.5 - 10.5 mg/dL [facility] Est Glomerular Filtration Rate >60 >=60 [facility] Comment: This estimated GFR (eGFR) [...] the following links into your internet browser. [email or web address] Blood specimen (specimen) 05/11/2016 10:28 AM EST 05/11/2016 1:46 PM EST Narrative Resulting Agency Comment Spec In Lab Pita Narayanan MD CHEMISTRY ORDERABLES [facility] [place] [address] documented in this encounter Visit Diagnoses Diagnosis Type 2 diabetes mellitus without complication, unspecified keno terminal operator insulin use status Essential hypertension Unspecified essential hypertension documented in this encounter Care Teams Explosive Ordnance Technician Relationship Specialty Start Date End Date Pita Narayanan MD [facility] [address] [place] [address] PCP - General General Internal Medicine 01/28/1604/22 documented as of this encounter
--- OUTSIDE RECORDS SUMMARY | 2024-04-13 16:37 | XMS_ITS | Encounter Summary ---
Author Organization [facility] Address [facility] [place] [address] Care Team Providers Care Bench Press Operator Name Role Phone Carlos Alberto Ag MD Primary Care Provider Unavailable Reason for Visit * Reason Onset Date Comments Medication Refill 06/24/2017 Depo-subq Prov era 104 syringe Encounter Details Date Type Department Care Team (Late st Contact Info) Description 06/24/2017 Refill Internal Medicine at [facility] [address] [place] [address] Jenelle Lloyd, [facility] Menstrual disorder Social History Tobacco Use Types [...] tract documented in this encounter Care Teams Bench Press Operator Relationship Specialty Start Date End Date Carlos Alberto Ag MD PCP - General General Internal Medicine 04/26/17 10/31/19 documented as of this encounter
--- OUTSIDE RECORDS SUMMARY | 2024-04-13 16:37 | XMS_ITS | Encounter Summary ---
Author Organization [facility] [place] [address] Care Team Providers Care Co Founder And Director Name Role Phone Pita Narayanan MD Primary Care Provider [phone] Encounter Details Date Type Department Care Team (Late st Contact Info) Description 01/26/2013 Telephone Internal Medicine at [facility] [address] [place] [address] Makenzie Rutledge CMA Social History [...] on filedocumented in this encounter Care Teams Co Founder And Director Relationship Specialty Start Date End Date Pita Narayanan MD [facility] [place] [address] PCP - General 12/01/12 04/21/15 documented as of this encounter
--- OUTSIDE RECORDS SUMMARY | 2024-04-13 16:37 | XMS_ITS | Encounter Summary ---
Author Organization [facility] [place] [address] Care Team Providers Care Equipment Washer Name Role Phone Enoch Medina MD Primary Care Provider [phone] Reason for Visit * Reason Comments Medication Refill Encounter Details Date Type Department Care Team ([facility] st Contact Info) Description 12/22/2016 Refill Internal Medicine at [facility] [address] [place] [address] Pita Narayanan MD [facility] [place] [address] Essential hypertension Social History Tobacco Use Types [...] hypertension documented in this encounter Care Teams Equipment Washer Relationship Specialty Start Date End Date Enoch Medina MD [facility] [place] [address] PCP - General Family Medicine 08/22/20 06/03/21 documented as of this encounter
--- OUTSIDE RECORDS SUMMARY | 2024-04-13 16:37 | XMS_ITS | Encounter Summary ---
Author Organization [facility] [place] [address] Care Team Providers Care Diamond Expert Name Role Phone Pita Narayanan MD Primary Care Provider [phone] Encounter Details Date Type Department Care Team (Latest Contact Info) Description 05/11/2016 1:40 PM EST Clinical Support Internal Medicine at [facility] [address] [place] [id number] Yoly Palacios RN Encounter for contraceptive management, [...] Tissue documented in this encounter Care Teams Diamond Expert Relationship Specialty Start Date End Date Pita Narayanan MD [facility] [address] [place] [address] PCP - General General Internal Medicine 01/28/1604/22 documented as of this encounter
--- OUTSIDE RECORDS SUMMARY | 2024-04-13 16:37 | XMS_ITS | Encounter Summary ---
Author Organization [facility] [place] [address] Care Team Providers Care Drop Man Name Role Phone Pita Narayanan MD Primary Care Provider [phone] Encounter Details Date Type Department Care Team (Late st Contact Info) Description 04/13/2014 Telephone Internal Medicine at [facility] [address] [place] [phone] Angélica Ochoa Social History Tobacco Use Types [...] on filedocumented in this encounter Care Teams Drop Man Relationship Specialty Start Date End Date Pita Narayanan MD [facility]IMARY [facility] [place], [place] [id number] PCP - General 12/01/12 04/21/15 documented as of this encounter
--- OUTSIDE RECORDS SUMMARY | 2024-04-13 16:37 | XMS_ITS | Encounter Summary ---
Author Organization [facility] Veronica elle [place] [id number] Care Team Providers Care Hooker Inspector Name Role Phone Pita Narayanan MD Primary Care Provider [phone] Reason for Referral * Psychiatric (Routine) - Closed Specialty Diagnoses / Procedures Referred By Contac t Referred To Contact Primary Care Diagnoses Depression Pita Narayanan MD [facility] [place] [address] Karsten Morris MD [facility] [place] [address] Referral ID Status Reason Start Date Expiration Date V isits Requested Visits Authorized [id number] Closed Consult, Test & Treat 01/30/2013 07/29/2013 1 1 Reason for Visit * Reason Comments Establish Care wants to discuss new anti-depressant; may need refills Encounter Details Date Type Department Care Team (Late st Contact Info) Description 01/30/2013 8:25 AM EDT Office Visit Internal Medicine at [facility] [address] [place] [address] Pita Narayanan MD [facility] [place] [address] Healthcare maintenance (Primary Dx); Diabetes [...] February 11Wednesday, 0800 am - 1 pm, [facility] Auditorium A, B, C Referral for medication consult with Dr Morris, our consulting psychiatrist at [facility] emergency services: [phone] [facility] Emergency room: [phone] WILLIS PENALOZA second steward after 5 pm and on weekends; through [facility] Sign Language Instructor [phone] [facility] 24 hr emergency line [facility] 24 hr emergency line ; appt intake line [phone] While waiting for visit with Dr Morris: [...] Records release for Dr Carlos's office at [facility]. Last 5 years will be sufficient. [...] Appears to have seen Dr Carlos at [facility] for most recent PCP; no records received. Will do records release Reviewed fisher sponge hooking notes Did not do questionnaire before visit [...] just moved, now in an apartment, in [place]. Works at [employer] in [facility]. Discussed job security. They have EAP. Says has gotten irritated and walks out. Can be tempermental. Has seen people for this Had worked on this before her sister . Then had a setback with this. PHQ9 is 7. Has been more depressed in past Support network--mother, friend who lives with them, knows 19 years. Mother lives in [place]. There is fhx of depression, anger issues I take care of her mother. No prior abuse hx. No abuse issues with first marriage Father of older child lives in [facility]. This father not really involved. #DM Says [...] for eye exam--goes to [facility] in [facility]. No foot paresthesias. Not on anything [...] Aware of risks to her on this. [id number], also helps regulate menses. Has 1 RF [...] tablet by mouth daily. Records release from Md A--additional background would have been helpful to [...] Stimulating Hormone 2.35 0.27 - 4.20 mcIU/mL [facility] Blood specimen (specimen) 01/30/2013 10:22 AM EDT 01/30/2013 12:32 PM EDT Narrative Resulting Agency Comment Spec In Lab Pita Narayanan MD CHEMISTRY ORDERABLES [facility] * Hemoglobin A1c (01/30/2013 10:22 AM EDT) Hemoglobin A1c 5.8 4.3 - 6.1 % [facility] Comment: The [place] Diabetes Association (ADA) has stated that HbA1c [...] 2013:36;suppl 1:S11-S66. Estimated Average Glucose 120 mg/dL [facility] Comment: eAG equivalents for HbA1c percentages: [...] into estimated average glucose values. ??Diabetes Care 2008:31(8):5894-8903. Blood specimen (specimen) 01/30/2013 10:22 AM EDT 01/30/2013 12:34 PM EDT Narrative Resulting Agency Comment Spec In Lab Pita Narayanan MD CHEMISTRY ORDERABLES [facility] * (ABNORMAL) Lipid panel (fasting) (01/30/2013 10:22 AM EDT) Cholesterol, Total 160 <=199 mg/dL [facility] Comment: Recommendations of the NCEP Adult Treatment Panel for the following risk cutoff thresholds for the [place] population: Desirable: <200 mg/dL Borderline High: 200-239 mg/dL High: > or = 240 mg/dL Triglyceride 233(H) <=149 mg/dL [facility] Comment: Reference Range: Normal triglycerides: ??<150 mg/dL Borderline high: ??150-199 mg/dL High: ??200-499 mg/dL Very high: ??>mp=942 mg/dL PATRICA 2001; 285(19):8002-5575 HDL Cholesterol 40 >=40 mg/dL [facility] Comment: Reference range: ??Low HDL: ?? < 40 mg/dL ??Normal: ?40-60 mg/dL ??Desirable: > 60 mg/dL PATIRCA 2001; 285(19):9668-4020 LDL Cholesterol 73 <=99 mg/dL [facility] Comment: Reference range: ?? Optimal: ?<100 mg/dL ?? Near Optimal/Above Optimal: ?? 100-129 mg/dL ?? Borderline high: ?130-159 mg/dL ?? High: ? 160-189 mg/dL ?? Very high: ?>eo=000 mg/dL PATRICA 2001: 285(19):1833-4076 Cholesterol/HDL Ratio 4.0 ratio [facility] Comment: A Cholesterol to HDL ratio below 4:1 is desirable. ??Studies suggest that increased CAD risk occurs at ratios above 5 for females and above 6 for men. ? [place] Heart Association ??(http://www.americanheart.org) ? Michaela Int Med, 1994; 121:641 ? AM J Med, 1998; 105(1A):48S Blood specimen (specimen) 01/30/2013 10:22 AM EDT 01/30/2013 12:32 PM EDT Narrative Resulting Agency Comment Spec In Lab Pita Narayanan MD CHEMISTRY ORDERABLES [facility] * (ABNORMAL) BMP w/fasting Glucose (01/30/2013 10:22 AM EDT) Glucose Fasting 123(H) 65 - 99 mg/dL [facility] Comment: ?Fasting* Glucose Interpretive Criteria Normal ?65-99 [...] of Diabetes Mellitus, Position Statement from the [place] Diabetes Association. ??Diabetes Care, Volume 33, Supplement 1, Apr 2009 Blood Urea Nitrogen 9 8 - 18 mg/dL [facility] Creatinine 0.67(L) 0.70 - 1.20 mg/dL [facility] Comment: Please note that the pediatric reference intervals supplied above were not validated at [facility]. Results from pediatric patients should be interpreted [...] Narayanan MD CHEMISTRY ORDERABLES Performing Organization Address [facility] Co de Phone Number [facility] * Microalbumin, urine, random (01/30/2013 10:07 AM EDT) Creatinine, Urine 166 mg/dL CE RNER MILLENNIUM Albumin, Urine 169.9 mg/L CERNE R MILLENNIUM Albumin / Creatinin Ratio, Urine 102 mcg/mg Cr [facility] Comment: Reference Range* Random collection (mcg/mg creatinine) Normal ?<30 Microalbuminuria ?? 30 - 300 Clinical Albuminuria ?? >300 *[place] Diabetes Association. Diabetic Nephropathy. Diabetes Care 1997;(Suppl 1):S24-S27 Exercise within 24 hour, infection, fever, CHF, marked hyperglycemia, and marked hypertension may elevate urinary albumin excretion over baseline values. Urine specimen (specimen) 01/30/2013 10:07 AM EDT 01/30/2013 12:31 PM EDT Narrative Resulting Agency Comment Spec In Lab Pita Narayanan MD URINE ORDERABLES Performing Organization Address [facility] Co de Phone Number [facility] GILMAN documented [...] reflux documented in this encounter Care Teams Hooker Inspector Relationship Specialty Start Date End Date Pita Narayanan MD [facility] [place] [address] PCP - General 12/01/12 04/21/15 documented as of this encounter
--- OUTSIDE RECORDS SUMMARY | 2024-04-13 16:37 | XMS_ITS | Encounter Summary ---
Author Organization [facility] Address [facility] [place] [address] Care Team Providers Care Field Crop Farmworker Name Role Phone Enoch Medina MD Primary Care Provider [phone] Reason for Visit * Reason Comments Medication Refill Encounter Details Date Type Department Care Team ([facility] st Contact Info) Description 01/09/2017 Refill Internal Medicine at [facility] [address] [place] [address] [place] [address] Essential hypertension Social History Tobacco Use Types [...] [facility] [place] * Telephone Encounter - Aisha Powers MA - 01/11/2017 12:14 PM EDT Called Pt and left VM. Call is in regards to lisinopril Rx. Need to verify if she wants the [facility] pharmacy, or mail order. And if mail order, which one? Thank you, Mary Powers MA My ext is [phone] documented in this encounter Plan of Treatment Not on file documented as of this encounter Visit Diagnoses Diagnosis Essential hypertension Unspecified essential hypertension documented in this encounter Care Teams Field Crop Farmworker Relationship Specialty Start Date End Date Enoch Medina MD [facility] DR [address]IC[address] [place] [address] PCP - General Family Medicine 08/22/20 06/03/21 documented as of this encounter
--- OUTSIDE RECORDS SUMMARY | 2024-04-13 16:37 | XMS_ITS | Encounter Summary ---
Author Organization [facility] [place] [address] Care Team Providers Care Ross Furnace Operator Name Role Phone Pita Narayanan MD Primary Care Provider [phone] Reason for Visit * Reason Comments Follow-up * Consultation (Urgent) - Specialty Diagnoses / Procedures Referred By Contmak t Referred To Contact Primary Care Diagnoses Severe episode of recurrent major depressive disorder, without psychotic features Pita Narayanan MD [facility] [address] [place] [address] [facility] Internal Medicine [address] [place] [address] Referral ID Status Reason Start Date Expiration Date Visits Requested Visits Authorized [id number] Specialty Service Requested 04/29/2016 04/29/2017 1 1 Encounter Details Date Type Department Care Team ([facility] st Contact Info) Description 05/11/2016 9:00 AM EST Office Visit Internal Medicine at [facility] [address] [place] [address] Karsten Morris MD [facility] [place] [address] Severe episode of recurrent major [...] is ok) Give chance with therapist at [facility] 3 - 5 visits. Follow-up with Dr. Gama 05/19/16 Strong does not mean doing it alone. documented in this encounter Progress Notes * Karsten Morris MD - 05/11/2016 9:00 AM EST REFERRAL SOURCE: Dr. Pita Narayanan. REASON FOR REFERRAL: Recent intensifying suicidal ideation and increasing PHQ-9 reflective of moderate to severe depression. LOCATION OF APPOINTMENT: [facility]. DURATION OF APPOINTMENT: 60 minutes. [...] use disorder. She currently is employed at [employer], resides with her 2 children in [place], [place], and is insured through [facility]. CHIEF COMPLAINT: I've had depression since high school, but this is the first time I've felt suicidal and not wanting to be around my kids, which really scared me. HISTORY OF PRESENT ILLNESS: Sarah recently reestablished care with Dr. Narayanan at the [facility]. She had previously been seeing a primary care physician in [place], but was finding that her mental health [...] environment. 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 SOCIAL HISTORY: Born in [place], raised in [place], youngest of 3 children from her mother [...] good relationship. He has just moved to [place], is getting re-involved with the children which is overall positive but somewhat stressful on the family system. Her second marriage was for 3 years. This partner struggled with substance use, is currently not in their lives. Her 2 children are Barbara, age 10, and Torrie, age 4, whom she is very dedicated to. 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 She has been with them for 3 years. The shifting schedule is stressful. She works 6 p.m. to 6 a.m. on , Wednesday, Wednesday and every other weekend. This makes sleep fragmented and difficult, is often combined with caring for her children. 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 documented in this encounter Plan of Treatment Not on file documented as of this encounter Visit Diagnoses Diagnosis Severe episode of recurrent major depressive disorder, without psychotic features documented in this encounter Care Teams Ross Furnace Operator Relationship Specialty Start Date End Date Pita Narayanan MD [facility] [place] [address] PCP - General General Internal Medicine 01/28/1604/22 documented as of this encounter
--- OUTSIDE RECORDS SUMMARY | 2024-04-13 16:37 | XMS_ITS | Encounter Summary ---
Author Organization [facility] [place] [address] Care Team Providers Care Pickle Pumper Name Role Phone Galina Hook MD Primary Care Provider [phone] Reason for Visit * Reason Comments Care Encounter Details Date Type Department Care Team (Latest Contact Info) Description 02/01/2012 4:30 PM EDT Visit Obstetrics [place] [address] Amina Mock MD [facility] DR OBSTETRICS [place] [address] Lisette Elise MD [facility] OBSTETRICS [place] [address] Diabetes mellitus; Hypertension; CADY (obstructive sleep apnea); [...] encounter Miscellaneous Notes * Miscellaneous - Bradley, Marketing Services Coordinator - 02/04/2012 1:23 PM EDT documented in [...] status documented in this encounter Care Teams Pickle Pumper Relationship Specialty Start Date End Date Galnia Hook MD PCP - General 10/01/10 11/30/12 documented as of this encounter
--- OUTSIDE RECORDS SUMMARY | 2024-04-13 16:37 | XMS_ITS | Encounter Summary ---
Author Organization [facility] [place] [address] Care Team Providers Care Clinical Documentation Specialist Name Role Phone Pita Narayanan MD Primary Care Provider [phone] Reason for Visit * Reason Comments Gynecologic Exam Encounter Details Date Type Department Care Team ([facility] Contact Info) Description 03/05/2017 9:00 AM EST Office Visit Internal Medicine at [facility] [address] [place] [address] Rosalva Cardenas, [facility] [place] [address] Encounter for screening for cervical cancer Social [...] HPI Sarah is here today for a COLLISION WORKER exam/pap only She saw her PCP, Pita Nraayanan MD last month for a med check, [...] REMOVE Please contact the Blood Bank at [phone] for questions. Outpatient Prescriptions Marked as Taking [...] Comments HPV Routine 03/05/2017 9:28 AM EST COLLISION WORKER CYTOLOGY INTERPRETATION Routine 03/05/2017 9:28 AM EST COLLISION WORKER CYTOLOGY FINAL REPORT Routine 03/05/2017 9:28 AM EST CYTOPATHOLOGY GYNECOLOGICAL Routine 03/05/2017 9:28 AM EST Encounter for screening for cervical cancer documented in this encounter Results * Cnc Service Technician Cytology Final Report (03/05/2017 9:28 AM EST) Cnc Service Technician Cytology Final Report [id number] ? Location: [facility] The signing pathologist has (i) examined the relevant preparation(s) for the specimen(s) and (ii) rendered or confirmed the diagnosis(es). . ? Cnc Service Technician Final DIAGNOSIS Normal Negative for Intraepithelial Lesion or Malignancy (NILM). For consensus guidelines for the management of cervical cancer screening test results, please see: ?? http://www.asccp.o rg . Electronically signed by: ??Supriya REYNOSO(ASCP)Coleen Verified: ??03/17/2017 ?Local Intermodal Truck Driver Performed at: ??-[facility] Dept. of Pathology, [place], [place] HPV RESULTS HPV16 (Result) ?Negative HPV18 [...] intended to detect low risk HPV types. Tred kira HPV test Specimen: HPV Testing - Cytology Liquid Based Prep The Antonia kira ? HPV test was validated, performed and results reported through the Laboratory for Clinical Genomics and Advanced Technology (CGAT) at [facility]. ? - Marvin Lorenzana, PhD, [facility], Director-[facility] STATEMENT OF ADEQUACY Specimen submitted is satisfactory. Endocervical component present. CLINICAL INFORMATION HPV Option: ?Concurrent HPV and Pap Preparation: ? Liquid based Pap Specimen Source: ? Cervical/Endocervi loni LMP: ? n/a Hormones?: ? Yes Hysterectomy?: ? No ?: ? No ?: ? No I.U.D.?: ? No Pelvic Radiation: ?No Prior COLLISION WORKER Therapy?: ?No Hist Abnl Pap/Biopsy?: ?? No Hist of HPV Vaccine?: ?No Hist of Smoking?: ?No Hist of NIKHIL exposure?: ?? No ICD Diagnosis: ? Z12.4 Encounter for screening for malignant neoplasm of cervix Clinical Data, Significant Therapy and Clinical Impression ?? : . CLINICAL INFORMATION ?_ This Pap Test has been evaluated with the assistance of the Kind IntelligencePrep Pap Test Imaging System. Note: The Pap test is a screening test for cervical cancer with an inherent false-negative rate dependent upon several variables. ??For further information please contact the [facility] Laboratory. Reference: ??Amanda CS. ??Valve Pipe Irrigator of Pap Smear Results. ??In: ??Barbara BS, [facility], ed. ??The Pap Smear. ??[place]: ??Mendoza, 2002: ??71-77. [facility] 03/05/2017 9:28 AM EST Rosalva L Beaupre DISPATCH SPECIALIST PATHOLOGY/CYTOLOGY O RDERABLES Performing Organization Address [facility] de Phone Number [facility] [place] [address] * COLLISION WORKER Cytology Interpretation (03/05/2017 9:28 AM EST) Cnc Service Technician Cytology Interpretation [facility] Comment:Cnc Service Technician Cytology Final R eport Endocervical Component Present [facility] AP Specimen 03/05/2017 9:28 AM EST 03/17/2017 6:12 PM EST Rosalva L Beaupre DISPATCH SPECIALIST PATHOLOGY/CYTOLOGY O RDERABLES Performing Organization Address [facility] Co de Phone Number [facility] [place] [address] * HPV (03/05/2017 9:28 AM EST) HPV16 NEGATIVE NEGATIVE [facility] HPV 18 NEGATIVE NEGATIVE [facility] HPV Other HR NEGATIVE NEGATIVE [facility] HPV Interpretation See Comment [facility] Comment: NEGATIVE for high-risk HPV [...] Comment Spec In Lab Rosalva L Beaupre DISPATCH SPECIALIST PATHOLOGY/CYTOLOGY O RDERABLES Performing Organization Address [facility] Co de Phone Number [facility] [address] * Cytopathology Gynecological (03/05/2017 9:28 AM EST) AP Specimen 03/05/2017 9:28 AM EST 03/05/2017 1:28 PM EST Narrative [facility] - 03/05/2017 1:28 PM EST Specimen requisition ordered. ??Separate Pathology report to follow Resulting Agency Comment Spec In Lab Rosalva L Beaupre DISPATCH SPECIALIST PATHOLOGY/CYTOLOGY O RDERABLES Performing Organization Address [facility] Co de Phone Number [facility] [address] documented in this encounter Visit Diagnoses Diagnosis Encounter for screening for cervical cancer documented in this encounter Care Teams Clinical Documentation Specialist Relationship Specialty Start Date End Date Pita Narayanan MD [facility] [address] [place] [address] PCP - General General Internal Medicine 01/28/1604/22 documented as of this encounter
--- OUTSIDE RECORDS SUMMARY | 2024-04-13 16:37 | XMS_ITS | Encounter Summary ---
Author Organization [facility] [place] [address] Care Team Providers Care Websphere Portal Developer Name Role Phone Pita Narayanan MD Primary Care Provider [phone] Encounter Details Date Type Department Care Team (Late st Contact Info) Description 04/29/2016 Orders Only Internal Medicine at [facility] [address] [place] [phone] Faye Jackson RN Irregular menses Social History [...] cycle documented in this encounter Care Teams Websphere Portal Developer Relationship Specialty Start Date End Date Pita Narayanan MD [facility] [place] [address] PCP - General General Internal Medicine 01/28/1604/22 documented as of this encounter
--- OUTSIDE RECORDS SUMMARY | 2024-04-13 16:37 | XMS_ITS | Encounter Summary ---
Author Organization [facility] Address [facility] [place] [address] Care Team Providers Care Academic Services Professional Name Role Phone Pita Narayanan MD Primary Care Provider Reason for Referral * Consultation (Urgent) - Specialty Diagnoses / Procedures Referred By Contac t Referred To Contact Primary Care Diagnoses Severe episode of recurrent major depressive disorder, without psychotic features Pita Narayanan MD [facility] [place] [address] [facility] Internal Medicine [address] [place] [address] Referral ID Status Reason Start Date Expiration Date Visits Requested Visits Authorized [id number] Specialty Service Requested 04/29/2016 04/29/2017 1 1 Reason for Visit * Reason Comments Establish Care Encounter Details Date Type Department Care Team (Late st Contact Info) Description 04/28/2016 3:30 PM EST Office Visit Internal Medicine at [facility] [address] [place] [id number] [place] [address] Severe episode of recurrent major depressive disorder, without psychotic features; Type 2 diabetes mellitus without complication, unspecified skilled nursing insulin use status; Essential hypertension; Gastroesophageal reflux [...] bupropion and continueon the higher dose venlafaxine [facility] Psychiatry emergency services: [phone] [facility] Emergency room: [phone] WILLIS PENALOZA critical care nurse practitioner after 5 pm and on weekends; through [facility] Sports Administrator [phone] [facility] 24 hr emergency line ([place], [place]) [facility] [place] intake [phone]; [facility] intake [phone] The preferred route for ongoing care is with Ismael Unegr since this is closer We will arrange referrals for our consulting psychiatrist here at [facility] and with one of the crisis staff in psychiatry, if needed. You contracted for safety today See emergency resources above Type 2 diabetes mellitus without complication, unspecified tank terminal gauger insulin use status - POCT glycated hemoglobin, [...] to get more records including labs from [facility] We will contact you about setting up depo shot for week of May 05 or Set up follow up visit with me documented in this encounter Progress Notes * Pita Narayanan MD - 04/28/2016 3:30 PM EST Here to re-est care I was running ~45 min late I met her once in 2012. Then lost to f/u here Went to [facility] for continued primary care. We have one scanned office note from a year ago Difficulties with access to continue to see her provider there, Gwen PEDRO. Pts work schedule somewhat of a factor. Transferred back here. Lives in [place] [facility] Acute issues needed addressing today incl worsening depression with SI. DM not well controlled Last visit at [facility] was 3 months ago for depo Due [...] is busy with 4 kids incl young . Does not have that much contact with him Does not feel that comfortable talking with someone, ie therapist Last therapy was about 4 yrs ago In [place] Has moved a lot over this time. 8 and 2, both girls. The older ally is seeing a therapist. Current living situation is in [facility] with her 2 daughters. They [...] here in crisis services Psych here at [facility] [address] for med consult Better for tank terminal gauger would be Ismael Unger Is aware of [...] mothre Discussed psych emergency resources here, WILLIS critical care nurse practitioner, and Ismael Unger 24 hr hotline. [...] Wt was 240 lbs Apr 2015 at [facility] visit Alert, affect appropriate to situation, calm. Speech fluent. NAD Erythema and fine scale around eyelids that looks c/w eyelid dermatitis (did not review further). Anicteric sclerae Mouth: tanacross teeth, OP moist, no lesions Neck supple [...] bupropion and continueon the higher dose venlafaxine [facility] Psychiatry emergency services: [phone] [facility] Emergency room: [phone] WILLIS PENALOZA critical care nurse practitioner after 5 pm and on weekends; through [facility] Sports Administrator [phone] [facility] 24 hr emergency line ([place], [place]) [facility] intake [phone]; [place] intake [phone] The preferred route for ongoing care is with Ismael Unger since this is closer We will arrange referrals for our consulting psychiatrist here at [facility] [address] and with one of the crisis staff in psychiatry, if needed. You contracted for safety today See emergency resources above Type 2 diabetes mellitus without complication, unspecified skilled nursing insulin use status - POCT glycated hemoglobin, [...] daily. Could not easily find PPI's [place]. Went with this for now and will see if covered Menstrual disorder - medroxyPROGESTERone (DEPO-PROVERA) 150 mg/mL Suspension; Inject 1 mL into the muscle Q 3 Months. Next is due between May 05 and 2016. Previously administered at [facility] Need to get set up. I could [...] to get more records including labs from [facility] We will contact you about setting up [...] Type 2 diabetes mellitus without complication, unspecified skilled nursing insulin use status URINE HOLD Routine 04/28/2016 4:10 PM EST U ALBUMIN/CRE RATIO Routine 04/28/2016 4 :10 PM EST Type 2 diabetes mellitus without complication, unspecified skilled nursing insulin use status documented in this encounter Results * (ABNORMAL) BMP w/fasting Glucose (05/11/2016 10:28 AM EST) [facility] Glucose Fasting 175(H) 65 - 99 [...] of Diabetes Mellitus, Position Statement from the [place] [employer]. ??Diabetes Care, Volume 33, Supplement 1, Apr 2009 Blood Urea Nitrogen 15 8 - 18 mg/dL [facility] Creatinine 0.72 0.70 - 1.20 mg/dL [facility] Comment: Please note that the pediatric reference intervals supplied above were not validated at [facility]. Results from pediatric patients should be interpreted [...] LABORATORY Est Glomerular Filtration Rate >60 >=60 [facility] Comment: This estimated GFR [...] the following links into your internet browser. [email or web address] Blood specimen (specimen) 05/11/2016 10:28 AM EST 05/11/2016 1:46 PM EST Narrative Resulting Agency Comment Spec In Lab Pita Narayanan MD CHEMISTRY ORDERABLES [facility] [place] [address] * (ABNORMAL) POCT glycated hemoglobin, total (HA1C) [...] MD URINE ORDERABLES [facility] [place] [address] * U Albumin/Cre Ratio (04/28/2016 4:10 PM [...] [facility] Creatinine, Urine 100 mg/dL [facility] Urine specimen (specimen) 04/28/2016 4:10 PM EST 04/29/2016 11:17 AM EST Narrative Resulting Agency Comment Spec In Lab Pita Narayanan MD URINE ORDERABLES [facility] [place] [address] documented in this encounter Visit Diagnoses Diagnosis Severe episode of recurrent major depressive disorder, without psychotic features Type 2 diabetes mellitus without complication, unspecified skilled nursing insulin use status Essential hypertension Unspecified essential hypertension Gastroesophageal reflux disease, esophagitis presence not specified Menstrual disorder Unspecified disorder of menstruation and other abnormal bleeding from female genital tract Obstructive sleep apnea Obstructive sleep apnea (adult) (pediatric) Increased BMI Other symptoms concerning nutrition, metabolism, and development documented in this encounter Care Teams Academic Services Professional Relationship Specialty Start Date End Date Pita Narayanan MD [facility] [address] [facility]RICIO DOWNEY [facility] [place] [address] PCP - General General Internal Medicine 01/28/1604/22 documented as of this encounter
--- OUTSIDE RECORDS SUMMARY | 2024-04-13 16:37 | XMS_ITS | Encounter Summary ---
Author Organization [facility] [place] [address] Care Team Providers Care Vat Cleaner Name Role Phone Pita Narayanan MD Primary Care Provider [phone] Encounter Details Date Type Department Care Team (Latest Contact Info) Description 03/05/2017 8:10 AM EST Laboratory Appointment Lab at [place] [address] [place] [phone] Dyslipidemia; Uncontrolled type 2 diabetes mellitus without [...] Hepatitis B Surface Antibody, Quantitative <3.5 IU/L [facility] Comment: HepB Surface Ab Quant: Unvaccinated: < 8.5 IU/L Vaccinated: > 11.5 IU/L Hepatitis B Surface Antibody Negative [facility] Comment: Patient is presumed to be not vaccinated or immune to HBV infection. Expected Results: Vaccinated: Positive Unvaccinated: Negative Blood specimen (specimen) 03/05/2017 8:17 AM EST 03/05/2017 9:56 AM EST Narrative Resulting Agency Comment Spec In Lab Pita Narayanan MD CHEMISTRY ORDERABLES [facility] [place] [address] * (ABNORMAL) Lipid Panel (03/05/2017 8:17 AM EST) Cholesterol, Total 166 <=239 mg/dL [facility] Triglyceride 309(H) <=199 mg/dL [facility] HDL Cholesterol 32(L) >=40 mg/dL [facility] LDL Cholesterol 72 <=190 mg/dL [facility] Cholesterol/HDL Ratio 5.2 ratio [facility] Lipid Interpretation See Note [facility] Comment: Lipid management should be guided by a patient? s ASCVD risk, goals and preferences. ACC/AHA Guidelines recommend high intensity statin if clinical ASCVD or LDL greater than or equal to 190 mg/dL. [email or web address] Adults aged 40-75 with LDL 70-189 mg/dL should have their 10 year ASCVD risk estimated with the ACC/AHA ASCVD risk language interpreter [email or web address]://tools.acc.org/POCRV-Iskq-Fnvjqaxrl/ Statin should be discussed if risk greater [...] MD CHEMISTRY ORDERABLES [facility] [place] [address] documented in this encounter Visit Diagnoses Diagnosis Dyslipidemia Other and unspecified hyperlipidemia Uncontrolled type 2 diabetes mellitus without complication, without long-term current use of insulin Healthcare maintenance Routine general medical examination at a health care facility documented in this encounter Care Teams Vat Cleaner Relationship Specialty Start Date End Date Pita Narayanan MD [facility] [place] [address] PCP - General General Internal Medicine 01/28/1604/22 documented as of this encounter
--- OUTSIDE RECORDS SUMMARY | 2024-04-13 16:38 | XMS_ITS | Encounter Summary ---
Author Organization [facility] [place] [address] Care Team Providers Care Chief Engineer Research Name Role Phone Dav Carlos MD Primary Care Provider [phone] Encounter Details Date Type Department Care Team (Latest Contact Info) Description 12/18/2011 9:40 AM EDT - 12/21/2011 11:53 AM EDT [place] [phone] Amina Mock MD [facility] OBSTETRICS [place] [address] Pam Prasad MD Diabetes mellitus; Supervision of high-risk Discharge Disposition: [...] engorgement is relieved. Call your doctor or accounting officer for: Fever more than 100.5 Heavy bleeding [...] follow up appointment. You may call the [facility] at any time for guidance or for answers to questions that come up prior to you follow up appointment. Your [facility] Provider can be reached during office hours at [facility] Follow-up Clinic AFTER OFFICE HOURS for the welder/fabricator or accounting officer consultant internship Provider electronic signature confirms that discharge instructions were reviewed with the patient. A copy was printed and given to the patient. * Patient Instructions* Radha Mathews MD - 12/21/2011 10:36 AM EDT Follow up appointments and recommendations: If not made at the time of discharge, please call your primary OB provider for a follow up appointment. ([phone]) Patient Discharge Instructions: For problems or concerns related to this hospitalization call: [phone] weekdays, or [phone] weekends or nights. Call your doctor if [...] and 6 yr old daughter Barbara. Where: [facility] [place] Approx time in community: Years Social Resources: Intact couple. Both employed. 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 Have Alo[employer] insurance through he employer and [place] Medicaid secondary. Have local family support. Extended family in area for support: Yes Cognitive Resources: Intact Childbirth Education: Yes/No Educational level: High School + Functional Status: Ambulatory, Independent, Without limitations. C/S recovery with limitations on lifting/driving x 2 weeks. Complications requiring follow-up: Financial Resources: Adequate. No concerns expressed Health Insurance Coverage: [facility] OOS Common Sensing plus [place] Medicaid. Baby will be placed on Dr Kamara Embalmer/Funeral Director Chosen: Dr Dav Carlos; WRFP Baby's Name: Baby Sindy Garcia Anticipated Continuing Care Needs: Physical: Recovery from . Initiation of . Emotional: Adjustment to period Psychological: Known hx of anxiety/depression. At risk for PPD. Referred to social media sr strategy manager for assessment and support while inpatient. Educational: Parenting Continuing Care Plan Development: At home resources/Discharge supports suggested. Printed materials and suggested community resourcesprovided to patient: Visiting Nurse visits: Offered services of [facility] post discharge. Patient declined [facility] ([facility]) 4th Trimester New mom support/[facility] [place] Healthy Babies: Referral to [facility] [facility]: [facility] in [place] DME ordered : None Breast Pump: N/A Other: Have infant car seat, transportation, and adequate family support. No direct referrals made at this time. . CRC: Roxanne Latham RNC/ Keny Strong. Beeper [phone] * Amina Mock MD - 12/21/2011 6:57 [...] Exam General: obese, sitting in bed with , NAD. Uterine Fundus: firm, appropriately tender to [...] 20 pounds piror to this adn only [id number] with the . I encouraged her to [...] rounds. LAWRENCE GUO MD PGY1 12/19/2011 Pager #[phone] Attending post - section note ALEXANDRE ELIZABETH [...] assisted to left lateral tilt. EFM placed, EOZ=798. MDs aware. To proceed with scheduled repeat [...] Sex Del Anes PTL Lv 1 TAB 1997 2 SAB 1998 Comments: early no D&C 3 PRE [...] 1/2 mL 30 x 5/16 [place] by [facility]; Combo Route) route. Taking insulin before breakfast, [...] 05/29/2011 GCAMP Negative 05/29/2011 CHLMGENE Negative 05/29/2011 [id number] <0.18* 07/15/2011 AST 14 09/09/2011 Lab Results [...] Obstetrics - Discharge Summary Patient Name: Migdalia Garcai Patient Age: 31 y.o. Birthdate: 1980 Admit [...] of group B Streptococcus V02.51A Care Provider: [facility] Admission History (per admit note) Migdalia [...] She was pumping for her in the ICN and will be followed [...] none Provider Contact Information: DAV CARLOS MD [phone] Discharge References/Attachments: Discharge References/Attachments None Signed: Santana Mathews MD * Miscellaneous - Provider, Scanning - 12/18/2011 8:37 PM EDT * Op Note - Pam Prasad MD - 12/18/2011 7:12 PM EDT [facility] Operative Note Patient Name: Migdalia Garcia : [id number] MR#: [id number] Case Date: 12/18/2011 Surgeon: Surgeon(s) and Role: * CHELA LOPEZ MD - Resident-Public Affairs Officer * ALEXANDRE ELIZABETH MD - *ASSISTING SURGEON [...] single area of nonhemostasis and a single [id number] was placed for hemostasis. The gutters were [...] Information for the patient's : Mejia Garcia [[id number]] Delivery 12/18/2011 5:23 PM by Lower Segment [...] Complications: Nuchal X 1 Placenta: Delivered: appearance [place] Measurements: Weight: 8 lb 2.9 oz (3710 g) Height: 20 Head circumference: 35 cm Chest circumference: Other providers: Delivery Assist Delivery Nurse Resident Resident Dental Office Assistant Amina Elizabeth Additional information: Forceps: Vacuum: Breech: [...] for the patient's : Mejia Garcia Girl [[id number]] Delivery 12/18/2011 5:23 PM by Lower Segment [...] providers: Delivery Assist Delivery Nurse Resident Resident Dental Office Assistant Amina Elizabeth Additional information: Forceps: Vacuum: Breech: [...] Operative Note Patient Name: Migdalia Garcia : [id number] MR#: [id number] Case Date: 12/18/2011 Surgeon: Surgeon(s) and Role: * CHELA LOPEZ MD - Resident-Public Affairs Officer * ALEXANDRE ELIZABETH MD - *ASSISTING SURGEON [...] Glucose, POC 115 60 - 199 mg/dL [facility] Comment: Supplemental ranges: <110 mg/dL before meals <200 mg/dL all other times of the day Blood specimen (specimen) 12/20/2011 6:55 PM EDT 12/20/2011 6:55 PM EDT Pam Prasad MD POINT OF CARE TEST O RDERABLES [facility] * POCT GLUCOSE (12/20/2011 2:00 PM EDT) Glucose, POC 106 60 - 199 mg/dL ANA GILMAN Comment: Supplemental ranges: <110 mg/dL before meals <200 mg/dL all other times of the day Blood specimen (specimen) 12/20/2011 2:00 PM EDT 12/20/2011 2:00 PM EDT Pam Prasad MD POINT OF CARE TEST O RDERABLES Performing Organization Address [facility] Co de Phone Number [facility] * POCT GLUCOSE (12/20/2011 10:42 AM EDT) Glucose, POC 139 60 - 199 mg/dL [facility] Comment: Supplemental ranges: <110 mg/dL before meals <200 mg/dL all other times of the day Blood specimen (specimen) 12/20/2011 10:42 AM EDT 12/20/2011 10:42 AM EDT Pam Prasad MD POINT OF CARE TEST O TARUN Performing Organization Address [facility] de Phone Number [facility] * POCT GLUCOSE (12/19/2011 7:34 PM EDT) Glucose, POC 120 60 - 199 mg/dL [facility] Comment: Supplemental ranges: <110 mg/dL before meals <200 mg/dL all other times of the day Blood specimen (specimen) 12/19/2011 7:34 PM EDT 12/19/2011 7:34 PM EDT Pam Prasad MD POINT OF CARE TEST O RDERAPEARL Performing Organization Address [facility] de Phone Number [facility] * POCT GLUCOSE (12/19/2011 1:47 PM EDT) Glucose, POC 102 60 - 199 mg/dL [facility] Comment: Supplemental ranges: <110 mg/dL before meals <200 mg/dL all other times of the day Blood specimen (specimen) 12/19/2011 1:47 PM EDT 12/19/2011 1:47 PM EDT Pam Prasad MD POINT OF CARE TEST O RDERABLES Performing Organization Address [facility] Co de Phone Number [facility] * POCT GLUCOSE (12/19/2011 10:01 AM EDT) Glucose, POC 114 60 - 199 mg/dL CERNER MILLENNIUM Comment: Supplemental ranges: <110 mg/dL before meals <200 mg/dL all other times of the day Blood specimen (specimen) 12/19/2011 10:01 AM EDT 12/19/2011 10:01 AM EDT Pam Prasad MD POINT OF CARE TEST O TARUN Performing Organization Address [facility] Co de Phone Number [facility]ER M[facility]EN[facility] * POCT GLUCOSE (12/19/2011 7:56 AM EDT) Glucose, POC 88 60 - 199 mg/dL [facility]NI[facility] Comment: Supplemental ranges: <110 mg/dL before meals <200 mg/dL all other times of the day Blood specimen (specimen) 12/19/2011 7:56 AM EDT 12/19/2011 7:56 AM EDT Pam Prasad MD POINT OF CARE TEST O TARUN Performing Organization Address [facility] de Phone Number [facility]ERNER MILLENNIUM * (ABNORMAL) DIFFERENTIAL, AUTOMATED (12/19/2011 6:10 AM [...] EDT Pam Prasad MD HEMATOLOGY ORDERABLE S [facility] Peeractive * (ABNORMAL) Creatinine, serum (12/19/2011 6:10 AM EDT) Creatinine 0.45(L) 0.70 - 1.20 mg/dL CERNER MILLENNIUM Comment: Please note that the pediatric reference intervals supplied above were not validated at [facility]. Results from pediatric patients should be interpreted [...] MD CHEMISTRY ORDERABLES Performing Organization Address [facility] de Phone Number [facility] * Aspartate Aminotransferase (12/19/2011 6:10 AM EDT) Aspartate Aminotransferase 28 0 - 30 unit/L [facility] Blood specimen (specimen) 12/19/2011 6:10 AM EDT 12/19/2011 6:28 AM EDT Narrative Resulting Agency Comment Spec In Lab Pam Prasad MD CHEMISTRY ORDERABLES Performing Organization Address [facility] Co de Phone Number [facility] * (ABNORMAL) CBC (with Diff) (12/19/2011 6:10 AM EDT) White Blood Cell 11.1(H) 4.0 - 10.0 x10(3)/mc L [facility] Red Blood Cell 4.16 3.93 - 5.22 x10(6)/mc L CERNER MILLENNIUM Hemoglobin 13.0 11.2 - 15.7 gm/dL [facility] MILLENNIUM Hematocrit 37.6 34.0 - 45.0 % CERNER MILLENNIUM Mean Cell Volume 90.4 79.0 - 94.0 fL CERNER MILLENNIUM Mean Cell Hemoglobin 31.3 26.6 - 32.2 pg CERNER MILLENNIUM Mean Cell Hemoglobin Concentration 34.6 32.0 - 36.5 gm/dL [facility] MILLENNIUM Platelet 162 145 - 370 x10(3)/mc L [facility] MILLENNIUM RDW Standard Deviation 43.0 35.0 - 46.0 fL CERNER MILLENNIUM RDW coefficient of variation 13.3 10.9 - 14.4 % CERNER MILLENNIUM Mean Platelet Volume 9.7 9.0 - 12.0 fL [facility] MILLENNIUM Blood specimen (specimen) 12/19/2011 6:10 AM EDT 12/19/2011 6:28 AM EDT Narrative Resulting Agency Comment Spec In Lab Pam Prasad MD HEMATOLOGY ORDERABLE S ANA GILMAN * POCT GLUCOSE (12/18/2011 9:11 PM EDT) Glucose, POC 75 60 - 199 mg/dL [facility] FERN[facility]ZI[facility] Comment: Supplemental ranges: <110 mg/dL before meals <200 mg/dL all other times of the day Blood specimen (specimen) 12/18/2011 9:11 PM EDT 12/18/2011 9:11 PM EDT Pam Prasad MD POINT OF CARE TEST O RDERABLES ANA GILMAN * Specimen to Pathology (NON-OR) (12/18/2011 7:07 PM EDT) AP Specimen 12/18/2011 7:07 PM EDT 12/18/2011 7:07 PM EDT Narrative [facility]ATIONNANYC MAXXBAN[facility]ENTER[facility] - 12/18/2011 7:07 PM EDT Specimen requisition ordered. ??Separate Pathology report to follow Pam Prasad MD PATHOLOGY/CYTOLOGY O RDERABLES Performing Organization Address [facility] de Phone Number [facility] * POCT GLUCOSE (12/18/2011 2:34 PM EDT) Glucose, POC 130 60 - 199 mg/dL [facility] Comment: Supplemental ranges: <110 mg/dL before meals <200 mg/dL all other times of the day Blood specimen (specimen) 12/18/2011 2:34 PM EDT 12/18/2011 2:34 PM EDT Pam Prasad MD POINT OF CARE TEST O RDERABLES Performing Organization Address [facility] de Phone Number [facility] * POCT GLUCOSE (12/18/2011 1:48 PM EDT) Glucose, POC 61 60 - 199 mg/dL [facility] Comment: Supplemental ranges: <110 mg/dL before meals <200 mg/dL all other times of the day Blood specimen (specimen) 12/18/2011 1:48 PM EDT 12/18/2011 1:48 PM EDT Pam Prasad MD POINT OF CARE TEST O RDERABLES Performing Organization Address [facility] de Phone Number [facility] * AB COMMENT (12/18/2011 12:25 PM EDT) Ab Information INTERPRETATION : The patient's specimen shows the presence of the antibody anti-D. ??The patient is negative for the RhD antigen. ??The patient recently received RhIg; the reactivity in the specimen almost certainly represents passive anti-D. ??Unit selection is per routine. ZMS, 12/25/2011 [facility] Comment: SALAZAR MOORE, Pathologist Verified:12/25/11 Blood specimen (specimen) 12/18/2011 12:25 PM EDT 12/18/2011 12:25 PM EDT Narrative Resulting Agency Comment Spec In Lab Pma Prasad MD BLOOD BANK LAB ORDER MARIJA Performing Organization Address City/[facility] Co de Phone Number ANA GILMAN * ANTIBODY IDENTIFICATION (12/18/2011 12:25 PM EDT) Pathologist [facility] Ab Identified Anti-D passive ANA LILLYBANNER BAYWOOD MED[facility] CENTERZENON Blood specimen (specimen) 12/18/2011 12:25 PM EDT 12/18/2011 12:25 PM EDT Narrative Resulting Agency Comment Spec In Lab Pam Prasad MD BLOOD BANK LAB ORDER MARIJA Performing Organization Address [facility] Co de Phone Number ANA GILMAN * SELECTED CELL SCREEN (12/18/2011 12:25 PM EDT) Pathologist [facility] Ab Screen Interp Anti-D detected, most likely passive antibody related to Rh Immune Globulin administrated on 10/13/2011_. ??No alloantibodies detected. ANA GILMAN Blood specimen (specimen) 12/18/2011 12:25 PM EDT 12/18/2011 12:25 PM EDT Narrative Resulting Agency Comment Spec In Lab Pam Prasad MD BLOOD BANK LAB ORDER MARIJA Performing Organization Address [facility] Co de Phone Number ANA GILMAN * POCT urine dipstick (12/18/2011 11:36 AM EDT) Pathologist [facility] POC Sp Fossil 1.002 - 1.030 POC pH, UA 5.0 [...] 10:44 AM EDT) Surgical Pathology Report ? [facility] ? Provider: ?? PAM PRASAD ?Pt. Name: ?? MIGDALIA GARCIA ? Acc #: ?[id number] ?Pt. ? Col Date: ?? 12/18/2011 ? [...] Description: ?? Discoid hamm placenta. ?Membranes: ? [place], clear. ??Marginal insertion. ?Cord: ?62.0 x 1.5 [...] Specimen Submitted: ? A - Placenta ? [facility] ? Provider: ?? PAM PRASAD ?Pt. Name: ?? MIGDALIA GARCIA ? Acc #: ?[id number] ?Pt. ? Col Date: ?? 12/18/2011 ? /Sex: ?1980,(31 ? years),Female ? Rec Date: ?? 12/22/2011 ?LOC: ?BP ? SURGICAL PATHOLOGY ? Clinical History/Diagnosis: ? 31 yo S/P repeat section with preeclampsia CERNER MILLENNIUM 12/18/2011 10:4 4 AM EDT Pam Prasad MD PATHOLOGY/CYTOLOGY O RDERABLES Performing Organization Address [facility] de Phone Number [facility] * ANTIBODY IDENTIFICATION (12/18/2011 10:30 AM EDT) Pathologist [facility] Ab Identified Anti-D passive [facility] Blood specimen (specimen) 12/18/2011 10:30 AM EDT 12/18/2011 11:04 AM EDT Narrative Resulting Agency Comment Spec In Lab Pam Prasad MD BLOOD BANK LAB ORDER MARIJA Performing Organization Address [facility] de Phone Number [facility] * DIFFERENTIAL, AUTOMATED (12/18/2011 10:30 AM EDT) Neutrophil % 65.5 34.0 - 71.0 % [facility] Neutrophil Absolute 5.73 1.50 - 6.30 x10(3)/mcL [...] MILLENNIUM Baso Absolute 0.0 0.0 - 0.2 x10(3)/[facility] CERNER MILLENNIUM Immature Gran % 0.20 0.00 - 0.66 % CERNER MILLENNIUM Comment: Immature granulocytes(IG's)percentage and absolute count will include metamyelocytes, myelocytes, and promyelocytes. Blood smears from CBCs yielding IG's will be scanned manually for concordance. If this scan disagrees with the automated IG or if promyelocytes are noted, a manual differential will be performed. Immature Gran Absolute 0.02 0.00 - 0.05 x10(3)/[facility] CERNER MILLENNIUM Blood specimen (specimen) 12/18/2011 10:30 [...] LAB ORDER MARIJA Performing Organization Address [facility] de Phone Number CERNANCY LILLYENNIUM * Aspartate Aminotransferase (12/18/2011 10:30 AM EDT) Aspartate Aminotransferase 21 0 - 30 unit/L CERNER MILLENNIUM Blood specimen (specimen) 12/18/2011 10:30 AM EDT 12/18/2011 10:46 AM EDT Narrative Resulting Agency Comment Spec In Lab Pam Prasad MD CHEMISTRY ORDERABLES Performing Organization Address [facility] de Phone Number CERNANCY LILLYENNIUM * CBC [...] Pam Prasad MD HEMATOLOGY ORDERABLE S [facility] documented in this encounter Visit Diagnoses [...] 1-2 tablet, Oral, EVERY 3 HOURS PRN, Pain, moderate-severe pain, Starting on Wed12/18/11 at 1907, Until 12/21/11 at 1354, Administer 1 tablet for moderate pain and 2 tablets for severe pain. Maximum dose of acetaminophen is 4,000 mg from all sources in 24 hours. Given 12/21/2011 7:40 AM EDT 2 tablets Given 12/20/2011 6:59 PM EDT 2 tablets [...] Best RN)1300 (New Bag - Provider: Pradeep Rascon RN)1800 (Stopped - Provider: Pradeep Rascon RN) PRN [...] 1-2 tablet, Oral, EVERY 3 HOURS PRN, Pain, moderate-severe pain, Starting on 12/18/11 at 1907, Until 12/21/11 at 1354, Administer 1 tablet for moderate pain and 2 tablets for severe pain. Maximum dose of acetaminophen is 4,000 mg from all sources in 24 hours. 2323 (Given - Provider: Kerri Best RN) 0886 (Given - Provider: Mayelin Oh RN)1619 (Given - Provider: Mayelin Oh RN) 0740 [...] Routine documented in this encounter Care Teams Chief Engineer Research Relationship Specialty Start Date End Date Dav Carlos MD PCP - General 10/01/10 11/30/12 documented as of this encounter
--- OUTSIDE RECORDS SUMMARY | 2024-04-13 16:38 | XMS_ITS | Encounter Summary ---
Author Organization [facility] [place] [address] Care Team Providers Care Desk Assistant Name Role Phone Dav Carlos MD Primary Care Provider [phone] Reason for Visit * Reason Comments Routine Visit Encounter Details Date Type Department Care Team (Latest Contact Info) Description 09/29/2011 2:45 PM EDT Routine Obstetrics and Gynecology at [facility] [id number] Julien Elizabeth MD GA: [id number] Discharge Disposition: Home Social History [...] - 09/29/2011 3:08 PM EDT Welcome to [employer], your secure online access to your electronic medical record at [facility]. Using [employer] you will be able to send messages to your providers, view your test results, renew prescriptions, schedule appointments, and much more. Follow these instructions to enter your personal [employer] account for the first time: 1. Start your internet browser and type [email or web address] into the address bar. 2. In the New User box on the right-hand side of the Welcome page click the link that states, ???I have an activation code.?? 3. On the Identification page, follow these steps: a) Enter your [employer]me activation code: [email or web address] b) Expires: 11/13/11 03:08 PM IMPORTANT: This Activation Code will on the above mentioned date. If you do not sign up for [employer] by this date, you will need to request another activation code. c) Enter your date of , using the calendar tool provided. d) Enter your Zip code. e) Select ???submit?? to go to the next page. 4. On the Create Account page, follow these steps: a) Create a [employer] username. This can???t be changed, so choose [...] record. If you have any questions about WeDuc-H or your Access Code, please call for [place], for [place] or for [place]. If you need technical support, please e-mail [email or web address]. Remember, myD-H is NOT for urgent needs! [...] 10/13/2011 11:40 am) Patient Info ID: ? [id number] ? : ??[birth year] (31 yrs) Name: ? MIGDALIA MOREIRA ? Visit Date: 10/13/2011 11:28 am Performed By Performed By: ?Neda Hernandez RDMS Attending: ? Arik PENALOZA, E ??Valerie Referred By: ? JULIEN ELIZABETH MD Service(s) Provided UOBFOL - Efw - Growth - Reevaluation - [place] ?[id number] - [id number] Indications Efw, Growth IDDM; Evaluation Num Of [...] Final 10/13/2011 11:40 am) Patient Info ID: [id number] : [birth year] (31 yrs) Name: MIGDALIA MOREIRA Visit Date: 10/13/2011 11:28 am Performed By Performed By: Neda Hernandez [facility] Attending: Lisette Elise MD Referred By: JULIEN ELIZABETH MD Service(s) Provided UOBFOL - Efw - Growth - Reevaluation - [place] [id number] - [id number] Indications Efw, Growth IDDM; Evaluation Num Of [...] Best: 28w 1d Det. By: U/S C tSevo Xiao ODETTE: 01/04/12 (05/29/11) ------- Anatomy ------- [...] uncontrolled documented in this encounter Care Teams Desk Assistant Relationship Specialty Start Date End Date Dav Carlos MD PCP - General 10/01/10 11/30/12 documented as of this encounter
--- OUTSIDE RECORDS SUMMARY | 2024-04-13 16:38 | XMS_ITS | Encounter Summary ---
Author Organization [facility] [place] [address] Care Team Providers Care Statistical Engineer Name Role Phone Dav Carlos MD Primary Care Provider [phone] Encounter Details Date Type Department Care Team (Latest Contact Info) Description 10/13/2011 10:25 AM EDT - 10/13/2011 11:59 PM EDT Hospital Encounter Ultrasound at [facility] [place] [phone] Supervision of high-risk ; Diabetes mellitus Social [...] 10/13/2011 11:40 am) Patient Info ID: ? [id number] ? : ??[birth year] (31 yrs) Name: ? MIGDALIA MOREIRA ? Visit Date: 10/13/2011 11:28 am Performed By Performed By: ?Neda Hernandez [facility] Attending: ? Arik PENALOZA, Lisette ??Valerie Referred By: ? JULIEN ELIZABETH MD Service(s) Provided UOBFOL - Efw - Growth - Reevaluation - [place] ?[id number] - [id number] Indications Efw, Growth IDDM; Evaluation Num Of [...] Final 10/13/2011 11:40 am) Patient Info ID: [id number] : [birth year] (31 yrs) Name: MIGDALIA MOREIRA Visit Date: 10/13/2011 11:28 am Performed By Performed By: Neda Hernandez [facility] Attending: Lisette Elise MD Referred By: JULIEN ELIZABETH MD Service(s) Provided UOBFOL - Efw - Growth - Reevaluation - [place] [id number] - [id number] Indications Efw, Growth IDDM; Evaluation Num Of [...] uncontrolled documented in this encounter Care Teams Statistical Engineer Relationship Specialty Start Date End Date Dav Carlos MD PCP - General 10/01/10 11/30/12 documented as of this encounter
--- OUTSIDE RECORDS SUMMARY | 2024-04-13 16:38 | XMS_ITS | Encounter Summary ---
Author Organization [facility] [place] [address] Care Team Providers Care Check Viewer Name Role Phone Dav Carlos MD Primary Care Provider [phone] Encounter Details Date Type Department Care Team (Latest Contact Info) Description 10/13/2011 11:00 AM EDT Routine Obstetrics [place] [address] CLINIC, Lisette Aviles MD [facility] OBSTETRICS [place] [address] GA: 28w1d Discharge Disposition: Home Social History [...] (10/13/2011 12:00 AM EDT) [facility]? [facility] (specimen) 10/13/2011 10/13/2011 11:47 AM EDT Narrative Resulting Agency Comment Spec In Lab Lisette Elise MD BLOOD BANK PRODUC T ORDERABLES [facility] documented in this encounter Visit Diagnoses Diagnosis High-risk supervision- Primary Unspecified high-risk documented in this encounter Care Teams Check Viewer Relationship Specialty Start Date End Date Dav Carlos MD PCP - General 10/01/10 11/30/12 documented as of this encounter
--- OUTSIDE RECORDS SUMMARY | 2024-04-13 16:38 | XMS_ITS | Encounter Summary ---
Author Organization [facility] [place] [address] Care Team Providers Care Single Pointed Operator Name Role Phone Dav Carlos MD Primary Care Provider [phone] Encounter Details Date Type Department Care Team (Late st Contact Info) Description 12/04/2011 3:45 PM EDT Routine Obstetrics and Gynecology at [facility] [place] [phone] CLINIC, Katelin Briones RN GA: 35w4d Discharge [...] uncontrolled documented in this encounter Care Teams Single Pointed Operator Relationship Specialty Start Date End Date Dav Carlos MD PCP - General 10/01/10 11/30/12 documented as of this encounter
--- OUTSIDE RECORDS SUMMARY | 2024-04-13 16:38 | XMS_ITS | Encounter Summary ---
Author Organization [facility] [place] [address] Care Team Providers Care Project Estimator Name Role Phone Dav Carlos MD Primary Care Provider [phone] Encounter Details Date Type Department Care Team (Latest Contact Info) Description 12/18/2011 8:45 AM EDT - 12/18/2011 9:44 AM EDT Hospital Encounter Ultrasound at [facility] [place] [address] Unspecified high-risk Social History Tobacco Use Types [...] Final 12/18/2011 11:15 am) Patient Info ID: ?[id number] ?: ??[birth year] (31 yrs) Name: ?MIGDALIA MOREIRA ?Visit Date: 12/18/2011 08:57 am Performed By Performed By: ?Melissa Villareal RDMS Attending: ? Lisette Elise MD ??Valerie Referred By: ? MARILYN HOUSE MD Service(s) Provided UOBFOL - Efw - Growth - Reevaluation - Bermudez ?[id number] - [id number] Indications Reason for exam and clinical history: [...] Final 12/18/2011 11:15 am) Patient Info ID: [id number] : [birth year] (31 yrs) Name: MIGDALIA MOREIRA Visit Date: 12/18/2011 08:57 am Performed By Performed By: Melissa Villareal [facility] Attending: Lisette Elise MD Referred By: MARILYN HOUSE MD Service(s) Provided UOBFOL - Efw - Growth - Reevaluation - B[place]udez [id number] - [id number] Indications Reason for exam and clinical history: [...] high-risk documented in this encounter Care Teams Project Estimator Relationship Specialty Start Date End Date Dav Carlos MD PCP - General 10/01/10 11/30/12 documented as of this encounter
--- OUTSIDE RECORDS SUMMARY | 2024-04-13 16:38 | XMS_ITS | Encounter Summary ---
Author Organization [facility] [place] [address] Care Team Providers Care Technical Education Teacher Name Role Phone Dav Carlos MD Primary Care Provider [phone] Encounter Details Date Type Department Care Team (Latest Contact Info) Description 10/13/2011 10:01 AM EDT - 10/13/2011 11:59 PM EDT [place] [phone] Marilyn Reilly MD [facility] OBSTETRICS AND [place] [address] Unspecified high-risk Discharge Disposition: Home Social History [...] TYPE AND SCREEN ([facility] Routine 10/13/2011 10:02 AM EDT Unspecified high-risk [...] ABO/RH TYPING (10/13/2011 10:14 AM EDT) Pathologist [facility] ABORH Type A Neg CERNANCY LILLYENNIUM Blood specimen (specimen) 10/13/2011 10:14 AM EDT 10/13/2011 12:03 PM EDT Narrative Resulting Agency Comment Spec In Lab Marilyn Reilly MD BLOOD BANK LAB ORD ERABLES Performing Organization Address City/[facility]/ZIP Co de Phone Number ANA FERNÁNDEZIUM [...] of variation 13.2 10.9 - 14.4 % [facility] Mean Platelet Volume 9.7 9.0 - 12.0 fL [facility] Blood specimen (specimen) 10/13/2011 10:14 AM EDT 10/13/2011 10:21 AM EDT Narrative Resulting Agency Comment Spec In Lab Marilyn Reilly MD HEMATOLOGY ORDERAB LES [facility] documented in this encounter Visit Diagnoses Diagnosis Unspecified high-risk documented in this encounter Care Teams Technical Education Teacher Relationship Specialty Start Date End Date Dav Carlos MD PCP - General 10/01/10 11/30/12 documented as of this encounter
--- OUTSIDE RECORDS SUMMARY | 2024-04-13 16:38 | XMS_ITS | Encounter Summary ---
Author Organization [facility] [place] [address] Care Team Providers Care Special Education Resource Teacher Name Role Phone Dav Carlos MD Primary Care Provider [phone] Encounter Details Date Type Department Care Team (Latest Contact Info) Description 08/11/2011 9:25 AM EDT - 08/11/2011 11:59 PM EDT Hospital Encounter Ultrasound at [facility] [place] [address] Unspecified high-risk Social History Tobacco Use Types [...] 08/11/2011 11:09 am) Patient Info ID: ? [id number] ? : ??[birth year] (31 yrs) Name: ? MIGDALIA MOREIRA ? Visit Date: 08/11/2011 10:21 am Performed By Performed By: ?Caryl Yepez [facility] Associate: ? Perri PENALOZA, Elvia Turner Attending: ? Arik PENALOZA, E ??Valerie Referred By: ? PHUONG SANTIAGO MD Service(s) Provided UOBS - Screening Morphology - [id number] ? 04329 UOBTV - Viability - Cervical Length - Transvaginal - ??[id number] Indications Screening Morphology Evaluation Num Of Fetuses: [...] Final 08/11/2011 11:09 am) Patient Info ID: [id number] : [birth year] (31 yrs) Name: MIGDALIA MOREIRA Visit Date: 08/11/2011 10:21 am Performed By Performed By: Caryl Yepez [facility] Associate: Elvia Rayo MD Attending: Lisette Elise MD Referred By: PHUONG SANTIAGO MD Service(s) Provided UOBS - Screening Morphology - [id number] UOBTV - Viability - Cervical Length - Transvaginal - [id number] Indications Screening Morphology Evaluation Num Of Fetuses: [...] high-risk documented in this encounter Care Teams Special Education Resource Teacher Relationship Specialty Start Date End Date Dav Carlos MD PCP - General 10/01/10 11/30/12 documented as of this encounter
--- OUTSIDE RECORDS SUMMARY | 2024-04-13 16:38 | XMS_ITS | Encounter Summary ---
Author Organization [facility] [place] [address] Care Team Providers Care Bath Steward/Stewardess Name Role Phone Dav Carlos MD Primary Care Provider [phone] Reason for Visit * Reason Comments Routine Visit Encounter Details Date Type Department Care Team (Latest Contact Info) Description 11/17/2011 10:30 AM EDT Routine Obstetrics [place] [address] Lisette Elise MD [facility] DR OBSTETRICS AND [place] [address] GA: 33w1d Discharge Disposition: Home Social History [...] uncontrolled documented in this encounter Care Teams Bath Steward/Stewardess Relationship Specialty Start Date End Date Dav Carlos MD PCP - General 10/01/10 11/30/12 documented as of this encounter
--- OUTSIDE RECORDS SUMMARY | 2024-04-13 16:38 | XMS_ITS | Encounter Summary ---
Author Organization [facility] [place] [address] Care Team Providers Care Underwriting Director Name Role Phone Dav Carlos MD Primary Care Provider [phone] Reason for Visit * Reason Comments Routine Visit Encounter Details Date Type Department Care Team ([facility] st Contact Info) Description 07/02/2011 8:45 AM EDT Routine Obstetrics [place] [address] Marilyn Reilly MD [facility] DR OBSTETRICS [place] [address] GA: 13w3d Discharge Disposition: Home Social History [...] encounter Miscellaneous Notes * Miscellaneous - Bradley, Physician Primary Care Sports Medicine - 07/06/2011 11:55 AM EDT documented in [...] HARISH NEGRON L ?(Age): 1980(31) Med Rec#: ?[id number] ? Sex: ?F ? Site Loc: ?[facility] [place] ? Ht / Wt: ??(cm)/(kg) ? Pt. Loc: ? Echo Lab ? BSA: ? Study Date: ?08/27/2011 ? Pt. Type: Outpatient Study Quality: ?Tape: ? Referring: Grover Elise Collection Systems Technician: Yosef Frankel Diagnosis:CPT Code(s): ?? Echo Full (45144), ?? Doppler Full (33699), ??Color Doppler (47961), Indication(s): ??Maternal diabetes Rhythm: SUMMARY: 1. A [...] 08/28/2011 07:53:22 Images reviewed and interpretation verified [facility] Cardiac Ultrasound Laboratory Procedure Note Percy Morales MD - 08/28/2011 Procedure: Pediatric Echocardiogram Patient: HARISH Xiao (Age): 1980(31) Med Rec#: [id number] Sex: F Site Loc: [facility] Ht / Wt: (cm)/(kg) Pt. Loc: Echo Lab BSA: Study Date: 08/27/2011 Pt. Type: Outpatient Study Quality: Tape: Referring: Grover Elise Collection Systems Technician: Yosef Frankel Diagnosis:CPT Code(s): Echo Full (10369), Doppler Full (92779), Color Doppler (96640), Indication(s): Maternal diabetes Rhythm: SUMMARY: 1. A [...] 08/28/2011 07:53:22 Images reviewed and interpretation verified [facility] Cardiac Ultrasound Laboratory Marilyn Reilly MD ECHO ORDERABLES documented in this encounter Visit Diagnoses Diagnosis Unspecified high-risk - Primary Diabetes mellitus Type II or unspecified type diabetes mellitus without mention of complication, not stated as uncontrolled Unspecified high-risk documented in this encounter Care Teams Underwriting Director Relationship Specialty Start Date End Date Dav Carlos MD PCP - General 10/01/10 11/30/12 documented as of this encounter
--- OUTSIDE RECORDS SUMMARY | 2024-04-13 16:38 | XMS_ITS | Encounter Summary ---
Author Organization [facility] [place] [address] Care Team Providers Care Music Orchestrator Name Role Phone Dav Carlos MD Primary Care Provider [phone] Reason for Visit * Reason Comments Non-stress Test Routine Visit Encounter Details Date Type Department Care Team (Late st Contact Info) Description 12/08/2011 10:30 AM EDT Routine Obstetrics [place] [address] Marilyn House MD [facility] DR OBSTETRICS [place] [address] GA: 36w1d Discharge Disposition: Home Social History [...] given two booklets; Going Home with Your Tyner and Anesthesia Guidelines. A Laborinstructions term pamphlet, Group B Streptococcus Informational Sheet, and Circumcision Letter (if applicable) was also given. The patient received additional pamphlets entitled Position and Tips for Successful and [facility] Services. documented in [...] (12/08/2011 10:39 AM EDT) GBS Screen Pos [facility] Pooled specimen from vaginal introitus and rectal swab (specimen) 12/08/2011 10:39 AM EDT 12/08/2011 3:04 PM EDT Comment:PENICILLIN ALLERGY?- >NO Narrative Resulting Agency Comment Spec In Lab Marilyn House MD MICROBIOLOGY - GEN ERAL ORDERABLES [facility] * Group B Strep Culture Screen (12/08/2011 10:39 AM EDT) Group B Streptococcus Culture ? Patient Name: MIGDALIA MOREIRA ? Ordered By: MARILYN HOUSE ? MR#: [id number] ?LOC: ??5L ? /Sex: ??1980 (31 years), [...] high-risk documented in this encounter Care Teams Music Orchestrator Relationship Specialty Start Date End Date Dav Carlos MD PCP - General 10/01/10 11/30/12 documented as of this encounter
--- OUTSIDE RECORDS SUMMARY | 2024-04-13 16:38 | XMS_ITS | Encounter Summary ---
Author Organization [facility] [place] [address] Care Team Providers Care Assistant Editor Name Role Phone Dav Carlos MD Primary Care Provider [phone] Reason for Visit * Reason Comments Routine Visit Encounter Details Date Type Department Care Team (Latest Contact Info) Description 06/16/2011 11:15 AM EST Routine Obstetrics [place] [address] Amina Mock MD [facility] DR OBSTET[place] [address] GA: 11w1d Discharge Disposition: Home Social History [...] antepartum documented in this encounter Care Teams Assistant Editor Relationship Specialty Start Date End Date Dav Carlos MD PCP - General 10/01/10 11/30/12 documented as of this encounter
--- OUTSIDE RECORDS SUMMARY | 2024-04-13 16:38 | XMS_ITS | Encounter Summary ---
Author Organization [facility] Address [facility] [place] [address] Care Team Providers Care Jockey Valet Name Role Phone Dav Carlos MD Primary Care Provider [phone] Encounter Details Date Type Department Care Team (Latest Contact Info) Description 10/06/2011 11:50 AM EDT - 10/06/2011 11:59 PM EDT Hospital Encounter Non-[place] [address] CARDIO, ECHO SIXTY MIN APPT None Lisette Elise MD [facility] OBSTETRICS [place] [address] Diabetes in Discharge Disposition: Home Social History [...] ? HARISH Xiao ?(Age): 1980(31) Med Rec#: ?[id number] ? Sex: ?F ? [place] [place] Ht / Wt: ??(cm)/(kg) ? Pt. Loc: ? Echo Lab ? BSA: ? Study Date: ?10/06/2011 ? Pt. Type: Outpatient Study Quality: ?Tape: ? Referring: Marilyn Reilly Senior Property Accountant: Yosef Frankel Diagnosis:CPT Code(s): ??Doppler LTD (46502), ?? Echo F/U (02195), Color Doppler (95887), Indication(s): ??Maternal diabetes Rhythm: SUMMARY: 1. A [...] 10/06/2011 13:02:08 Images reviewed and interpretation verified [facility] Cardiac Ultrasound Laboratory Procedure Note Percy Morales MD - 10/06/2011 Procedure: Pediatric Echocardiogram Patient: HARISH Xiao (Age): 1980(31) Med Rec#: [id number] Sex: F [place] Loc[place] [facility] Ht / Wt: (cm)/(kg) Pt. Loc: Echo Lab BSA: Study Date: 10/06/2011 Pt. Type: Outpatient Study Quality: Tape: Referring: Marilyn Reilly Senior Property Accountant: Yosef Frankel Diagnosis:CPT Code(s): Doppler LTD (09420), Echo F/U (02450), Color Doppler (61622), Indication(s): Maternal diabetes Rhythm: SUMMARY: 1. A [...] 10/06/2011 13:02:08 Images reviewed and interpretation verified [facility] Cardiac Ultrasound Laboratory Marilyn Reilly MD ECHO ORDERABLES documented in this encounter Visit Diagnoses Diagnosis Diabetes in Diabetes mellitus of mother, complicating , childbirth, or the puerperium, unspecified as to episode of care documented in this encounter Care Teams Jockey Valet Relationship Specialty Start Date End Date Dav Carlos MD PCP - General 10/01/10 11/30/12 documented as of this encounter
--- OUTSIDE RECORDS SUMMARY | 2024-04-13 16:38 | XMS_ITS | Encounter Summary ---
Author Organization [facility] [place] [address] Care Team Providers Care Casting Machine Operator Helper Name Role Phone Dav Carlos MD Primary Care Provider [phone] Encounter Details Date Type Department Care Team (Late st Contact Info) Description 12/18/2011 1:00 PM EDT - 12/18/2011 2:59 [place] [address] Pam Prasad MD @ DELIVERY (WRVU 16.13) Social History Tobacco [...] engorgement is relieved. Call your doctor or registered nurse midwife for: Fever more than 100.5 Heavy bleeding [...] follow up appointment. You may call the [facility] at any time for guidance or for answers to questions that come up prior to you follow up appointment. Your [facility] Provider can be reached during office hours at [facility] AFTER OFFICE HOURS for the oil field caser or registered nurse midwife policyholder information clerk Provider electronic signature confirms that discharge instructions were reviewed with the patient. A copy was printed and given to the patient. * Patient Instructions* Radha Mathews MD - 12/21/2011 10:36 AM EDT Follow up appointments and recommendations: If not made at the time of discharge, please call your primary OB provider for a follow up appointment. ([phone]) Patient Discharge Instructions: For problems or concerns related to this hospitalization call: [phone] weekdays, or [phone] weekends or nights. Call your doctor if [...] and 6 yr old daughter Barbara. Where: [place] Approx time in community: Years Social Resources: Intact couple. Both employed. 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 Have [employer] [place] through he employer and [place] secondary. Have local family support. Extended family in area for support: Yes Cognitive Resources: Intact Childbirth Education: Yes/No Educational level: High School + Functional Status: Ambulatory, Independent, Without limitations. C/S recovery with limitations on lifting/driving x 2 weeks. Complications requiring follow-up: Financial Resources: Adequate. No concerns expressed Health Insurance Coverage: [facility] [employer] plus [place] Medicaid. Baby will be placed on Dr Kamara Mineral Surveyor Chosen: Dr Dav Carlos; [facility] Baby's Name: Baby Girl Radha Anticipated Continuing Care Needs: Physical: Recovery from . Initiation of . Emotional: Adjustment to period Psychological: Known hx of anxiety/depression. At risk for PPD. Referred to health social work professor for assessment and support while inpatient. Educational: Parenting Continuing Care Plan Development: At home resources/Discharge supports suggested. Printed materials and suggested community resourcesprovided to patient: Visiting Nurse visits: Offered services of VNA post discharge. Patient declined [facility] ([facility]) 4th Trimester New mom support/[facility] [place] Healthy Babies: Referral to [facility]: [facility] [place] DME ordered : None Breast Pump: N/A Other: Have infant car seat, transportation, and adequate family support. No direct referrals made at this time. . CRC: Roxanne Latham RNC/ Keny Strong. Beeper [phone] * Amina Mock MD - 12/21/2011 6:57 [...] at term doing well. Plan: Discharge today [place] out in several days Amina Mock MD [...] 20 pounds piror to this adn only [id number] with the . I encouraged her to [...] -- ??? CREATININE 0.45* Recent Labs Basename 12/19/1160912/18/11 1030 ??? AST 28 21 ??? ALT [...] rounds. LAWRENCE GUO MD PGY1 12/19/2011 Pager #[phone] Attending post - section note ALEXANDRE ELIZABETH [...] assisted to left lateral tilt. EFM placed, NLX=222. MDs aware. To proceed with scheduled repeat [...] 1/2 mL 30 x 5/16 Syrg by [facility]Non-Drug; Combo Route) route. Taking insulin before breakfast, [...] 05/29/2011 GCAMP Negative 05/29/2011 CHLMGENE Negative 05/29/2011 [id number] <0.18* 07/15/2011 AST 14 09/09/2011 Lab Results [...] A-: will need cord blood ?? Gerd: nextej LOPEZ MD 12/18/2011 Addendum: 31 yo woman [...] of group B Streptococcus V02.51A Care Provider: [facility] Admission History (per admit note) Migdalia Garcia [...] ??? PLATELET 162 161 Recent Labs Basename 12/19/11609 ??? NA -- ??? K -- ??? CL -- ??? CO2 -- ??? BUN -- ??? CREATININE 0.45* Recent Labs Basename 12/19/1160912/18/11 1030 ??? AST 28 21 ??? ALT [...] none Provider Contact Information: DAV CARLOS MD [phone] Discharge References/Attachments: Discharge References/Attachments None Signed: Santana Mathews MD * Miscellaneous - Provider, Scanning - 12/18/2011 8:37 PM EDT * Op Note - Pam Prasad MD - 12/18/2011 7:12 PM EDT [facility] Operative Note Patient Name: Migdalia Garcia : [id number] MR#: [id number] Case Date: 12/18/2011 Surgeon: Surgeon(s) and Role: * CHELA LOPEZ MD - Resident-Osteology Teacher * ALEXANDRE ELIZABETH MD - *ASSISTING SURGEON [...] single area of nonhemostasis and a single [id number] was placed for hemostasis. The gutters were [...] for the patient's : Mejia Garcia Girl [[id number]] Delivery 12/18/2011 5:23 PM by Lower Segment [...] Complications: Nuchal X 1 Placenta: Delivered: appearance [place] Measurements: Weight: 8 lb 2.9 oz (3710 g) Height: 20 Head circumference: 35 cm Chest circumference: Other providers: Delivery Assist Delivery Nurse Resident Resident Adult Caregiver Amina Elizabeth Additional information: Forceps: Vacuum: Breech: [...] Information for the patient's : Mejia Garcia [[id number]] Delivery 12/18/2011 5:23 PM by Lower Segment [...] Complications: Nuchal X 1 Placenta: Delivered: appearance [place] Measurements: Weight: 8 lb 2.9 oz (3710 g) Height: 20 Head circumference: 35 cm Chest circumference: Other providers: Delivery Assist Delivery Nurse Resident Resident Adult Caregiver Amina Elizabeth Additional information: Forceps: Vacuum: Breech: Observed anomalies * OR Attestation - Aleaxndre Elizabeth MD - 12/18/2011 6:30 PM EDT [...] Operative Note Patient Name: Migdalia Garcia : [id number] MR#: [id number] Case Date: 12/18/2011 Surgeon: Surgeon(s) and Role: * CHELA LOPEZ MD - Resident-Osteology Teacher * ALEXANDRE ELIZABETH MD - *ASSISTING SURGEON [...] Glucose, POC 115 60 - 199 mg/dL [facility] Comment: Supplemental ranges: <110 mg/dL before meals <200 mg/dL all other times of the day Blood specimen (specimen) 12/20/2011 6:55 PM EDT 12/20/2011 6:55 PM EDT Pam Prasad MD POINT OF CARE TEST O TARUN Performing Organization Address [facility] Co de Phone Number [facility] * POCT GLUCOSE (12/20/2011 2:00 PM EDT) Glucose, POC 106 60 - 199 mg/dL [facility] Comment: Supplemental ranges: <110 mg/dL before meals <200 mg/dL all other times of the day Blood specimen (specimen) 12/20/2011 2:00 PM EDT 12/20/2011 2:00 PM EDT Pam Prasad MD POINT OF CARE TEST O RDERABLES [facility] * POCT GLUCOSE (12/20/2011 10:42 AM EDT) Glucose, POC 139 60 - 199 mg/dL [facility] Comment: Supplemental ranges: <110 mg/dL before meals <200 mg/dL all other times of the day Blood specimen (specimen) 12/20/2011 10:42 AM EDT 12/20/2011 10:42 AM EDT Pam Prasad MD POINT OF CARE TEST O RDERAPEARL Performing Organization Address [facility] de Phone Number [facility] * POCT GLUCOSE (12/19/2011 7:34 PM EDT) Glucose, POC 120 60 - 199 mg/dL [facility] Comment: Supplemental ranges: <110 mg/dL before meals <200 mg/dL all other times of the day Blood specimen (specimen) 12/19/2011 7:34 PM EDT 12/19/2011 7:34 PM EDT Pam Prasad MD POINT OF CARE TEST O TARUN Performing Organization Address [facility] de Phone Number [facility] * POCT GLUCOSE (12/19/2011 1:47 PM EDT) Glucose, POC 102 60 - 199 mg/dL [facility] Comment: Supplemental ranges: <110 mg/dL before meals <200 mg/dL all other times of the day Blood specimen (specimen) 12/19/2011 1:47 PM EDT 12/19/2011 1:47 PM EDT Pam Prasad MD POINT OF CARE TEST O RDERAPEARL Performing Organization Address [facility] de Phone Number [facility] * POCT GLUCOSE (12/19/2011 10:01 AM EDT) Glucose, POC 114 60 - 199 mg/dL [facility] Comment: Supplemental ranges: <110 mg/dL before meals <200 mg/dL all other times of the day Blood specimen (specimen) 12/19/2011 10:01 AM EDT 12/19/2011 10:01 AM EDT Pam Prasad MD POINT OF CARE TEST O RDERABLES ANA LILLYENNIUM * POCT GLUCOSE (12/19/2011 7:56 AM EDT) Glucose, POC 88 60 - 199 mg/dL [facility] MILLENNI[facility] Comment: Supplemental ranges: <110 mg/dL before meals <200 mg/dL all other times of the day Blood specimen (specimen) 12/19/2011 7:56 AM EDT 12/19/2011 7:56 AM EDT Pam Prasad MD POINT OF CARE TEST O RDERABLES Performing Organization Address City/[facility]/ZIP Co de Phone Number CERNANCY LILLYENNIUM * (ABNORMAL) [...] 0.02 0.00 - 0.05 x10(3)/mc L CERNER wedgiesIUM Blood specimen (specimen) 12/19/2011 6:10 AM EDT 12/19/2011 6:28 AM EDT Pam Prasad MD HEMATOLOGY ORDERABLE S [employer] * (ABNORMAL) Creatinine, serum (12/19/2011 6:10 AM EDT) Creatinine 0.45(L) 0.70 - 1.20 mg/dL CERNER [facility] AccessENNIUM Comment: Please note that the pediatric reference intervals supplied above were not validated at [facility]. Results from pediatric patients should be interpreted in conjunction to the patient's age, height and muscle mass. Est Glomerular Filtration Rate >60 >=60 CERNER wedgiesIUM Comment: The National Kidney Disease Education Program [...] Prasad MD CHEMISTRY ORDERABLES Performing Organization Address [facility] de Phone Number [facility] MAXXBANNERIUM * Aspartate Aminotransferase (12/19/2011 6:10 AM EDT) Aspartate Aminotransferase 28 0 - 30 unit/L [facility] MAXXENNIUM Blood specimen (specimen) 12/19/2011 6:10 AM EDT 12/19/2011 6:28 AM EDT Narrative Resulting Agency Comment Spec In Lab Pam Prasad MD CHEMISTRY ORDERABLES Performing Organization Address [facility] de Phone Number [facility] MAXXBANNERIUM * (ABNORMAL) CBC (with Diff) (12/19/2011 6:10 AM EDT) White Blood Cell 11.1(H) 4.0 - 10.0 x10(3)/mc L CERNER MILLENNIUM Red Blood Cell 4.16 3.93 - 5.22 x10(6)/mc L CERNER MILLENNIUM Hemoglobin 13.0 11.2 - 15.7 gm/dL CERNER MILLENNIUM Hematocrit 37.6 34.0 - 45.0 % CERNER MILLENNIUM Mean Cell Volume 90.4 79.0 - 94.0 fL [facility] M[facility] Mean Cell Hemoglobin 31.3 26.6 - 32.2 pg CERNER MILLENNIUM Mean Cell Hemoglobin Concentration 34.6 32.0 - 36.5 gm/dL CERNER MILLENNIUM Platelet 162 145 - 370 x10(3)/mc L [facility] MILL[facility] RDW Standard Deviation 43.0 35.0 - 46.0 fL CERNER MILLENNIUM RDW coefficient of variation 13.3 10.9 - 14.4 % CERNER MILLENNIUM Mean Platelet Volume 9.7 9.0 - 12.0 fL [facility] MILLENNIUM Blood specimen (specimen) 12/19/2011 6:10 AM EDT 12/19/2011 6:28 AM EDT Narrative Resulting Agency Comment Spec In Lab Pam Prasad MD HEMATOLOGY ORDERABLE S Performing Organization Address [facility] Co de Phone Number [facility] * POCT GLUCOSE (12/18/2011 9:11 PM EDT) Glucose, POC 75 60 - 199 mg/dL [facility] Comment: Supplemental ranges: <110 mg/dL before meals <200 mg/dL all other times of the day Blood specimen (specimen) 12/18/2011 9:11 PM EDT 12/18/2011 9:11 PM EDT Pam Prasad MD POINT OF CARE TEST O TARUN Performing Organization Address [facility] Co de Phone Number [facility] GILMAN * Specimen to Pathology (NON-OR) (12/18/2011 7:07 PM EDT) AP Specimen 12/18/2011 7:07 PM EDT 12/18/2011 7:07 PM EDT Narrative [facility] MAXXBANNERIUM - 12/18/2011 7:07 PM EDT Specimen requisition ordered. ??Separate Pathology report to follow Pam Prasad MD PATHOLOGY/CYTOLOGY O TARUN Performing Organization Address [facility] Co de Phone Number [facility] * POCT GLUCOSE (12/18/2011 2:34 PM EDT) Glucose, POC 130 60 - 199 mg/dL [facility] Comment: Supplemental ranges: <110 mg/dL before meals <200 mg/dL all other times of the day Blood specimen (specimen) 12/18/2011 2:34 PM EDT 12/18/2011 2:34 PM EDT Pam Prasad MD POINT OF CARE TEST O RDERABLES Performing Organization Address [facility] de Phone Number [facility] * POCT GLUCOSE (12/18/2011 1:48 PM EDT) Glucose, POC 61 60 - 199 mg/dL [facility] Comment: Supplemental ranges: <110 mg/dL before meals <200 mg/dL all other times of the day Blood specimen (specimen) 12/18/2011 1:48 PM EDT 12/18/2011 1:48 PM EDT Pam Prasad MD POINT OF CARE TEST O RDERABLES Performing Organization Address [facility] Phone Number [facility] * AB COMMENT (12/18/2011 12:25 PM EDT) Ab Information INTERPRETATION : The patient's specimen shows the presence of the antibody anti-D. ??The patient is negative for the RhD antigen. ??The patient recently received RhIg; the reactivity in the specimen almost certainly represents passive anti-D. ??Unit selection is per routine. ZMS, 12/25/2011 [facility] Comment: SALAZAR MOORE, Pathologist Verified:12/25/11 Blood specimen (specimen) 12/18/2011 12:25 PM EDT 12/18/2011 12:25 PM EDT Narrative Resulting Agency Comment Spec In Lab Pam Prasad MD BLOOD BANK LAB ORDER MARIJA Performing Organization Address [facility] de Phone Number [facility] * ANTIBODY IDENTIFICATION (12/18/2011 12:25 PM EDT) Pathologist [facility] Ab Identified Anti-D passive ANA LILLYBANNERTEJ Blood specimen (specimen) 12/18/2011 12:25 PM EDT 12/18/2011 12:25 PM EDT Narrative Resulting Agency Comment Spec In Lab Pam Prasad MD BLOOD BANK LAB ORDER MARIJA Performing Organization Address City/[facility]/ZIP Co de Phone Number ANA GILMAN * SELECTED CELL SCREEN (12/18/2011 12:25 PM EDT) Pathologist [facility] Ab Screen Interp Anti-D detected, most likely passive antibody related to Rh Immune Globulin administrated on 10/13/2011_. ??No alloantibodies detected. [facility] Blood specimen (specimen) 12/18/2011 12:25 PM EDT 12/18/2011 12:25 PM EDT Narrative Resulting Agency Comment Spec In Lab Pam Prasad MD BLOOD BANK LAB ORDER MARIJA Performing Organization Address City/[facility] Co de Phone Number ANA GILMAN * POCT urine dipstick (12/18/2011 11:36 AM EDT) [facility] POC Sp [place] 1.002 - 1.030 POC pH, UA 5.0 [...] SURGICAL PATHOLOGY REPORT (12/18/2011 10:44 AM EDT) [facility] Surgical Pathology Report ? [facility] ? Provider: ?? PAM PRASAD ?Pt. Name: ?? MIGDALIA GARCIA ? Acc #: ?[id number] ?Pt. ? Col Date: ?? 12/18/2011 ? [...] Description: ?? Discoid hamm placenta. ?Membranes: ? [employer], clear. ??Marginal insertion. ?Cord: ?62.0 x 1.5 [...] Specimen Submitted: ? A - Placenta ? [facility] ? Provider: ?? PAM PRASAD ?Pt. Name: ?? MIGDALIA GARCIA ? Acc #: ?[id number] ?Pt. ? Col Date: ?? 12/18/2011 ? /Sex: ?1980,(31 ? years),Female ? Rec Date: ?? 12/22/2011 ?LOC: ?BP ? SURGICAL PATHOLOGY ? Clinical History/Diagnosis: ? 31 yo S/P repeat section with preeclampsia CERNER MILLENNIUM 12/18/2011 10:4 4 AM EDT Pam Prasad MD PATHOLOGY/CYTOLOGY O RDERABLES Performing Organization Address [facility]/ZIP Co de Phone Number CERNER MILLENNIUM * ANTIBODY IDENTIFICATION (12/18/2011 10:30 AM EDT) Pathologist [facility] Ab Identified Anti-D passive CERNER MILLENNIUM Blood specimen (specimen) 12/18/2011 10:30 AM EDT 12/18/2011 11:04 AM EDT Narrative Resulting Agency Comment Spec In Lab Pam Prasad MD BLOOD BANK LAB ORDER MARIJA Performing Organization Address [facility] Co de Phone Number CERNER MILLENNIUM * DIFFERENTIAL, AUTOMATED (12/18/2011 10:30 AM EDT) [...] Absolute 0.0 0.0 - 0.2 x10(3)/mcL CERNER MAXXENNIUM Immature Gran % 0.20 0.00 - 0.66 % CERNER MAXXENNIUM Comment: Immature granulocytes(IG's)percentage and absolute count will include metamyelocytes, myelocytes, and promyelocytes. Blood smears from CBCs yielding IG's will be scanned manually for concordance. If this scan disagrees with the automated IG or if promyelocytes are noted, a manual differential will be performed. Immature Gran Absolute 0.02 0.00 - 0.05 x10(3)/[facility] ANA FERNÁNDEZIUM Blood specimen (specimen) 12/18/2011 10:30 AM EDT 12/18/2011 10:46 AM EDT Pam Prasad MD HEMATOLOGY ORDERABLE S ANA GILMAN * ANTIBODY SCREEN (12/18/2011 10:30 AM EDT) Ab Screen Interp Positive ANA FERNÁNDEZIUM Expires at [id number] on: [id number] ANA FERNÁNDEZIUM Blood specimen (specimen) 12/18/2011 10:30 AM EDT 12/18/2011 10:50 AM EDT Narrative Resulting Agency Comment Spec In Lab Pam Prasad MD BLOOD BANK LAB ORDER MARIJA ANA GILMAN * ABO/RH TYPING (12/18/2011 10:30 AM EDT) ABORH Type A Neg ANA FERNÁNDEZIUM Blood specimen (specimen) 12/18/2011 10:30 AM EDT 12/18/2011 10:50 AM EDT Narrative Resulting Agency Comment Spec In Lab Pam Prasad MD BLOOD BANK LAB ORDER MARIJA Performing Organization Address City/[facility] Co de Phone Number CERNANCY FERNÁNDEZIUM * Aspartate Aminotransferase (12/18/2011 10:30 AM EDT) Aspartate Aminotransferase 21 0 - 30 unit/L CERNER MILLENNIUM Blood specimen (specimen) 12/18/2011 10:30 AM EDT 12/18/2011 10:46 AM EDT Narrative Resulting Agency Comment Spec In Lab Pam Prasad MD CHEMISTRY ORDERABLES Performing Organization Address City/[facility] Co de Phone Number CERNANCY LILLYENNIUM * [...] BEREKET) 09 (Given - Provider: Mayelin Oh, BEREKET) NIFEdipine (ADALAT CC) CR tablet 30 mg 30 mg, Oral, 2 TIMES DAILY, First dose on 12/20/11 at 1015, Until Discontinued, Routine 1015 (Given - Provider: Mayelin Oh RN)2110 (Given - Provider: Makenzie Tobias, BEREKET) 899 (Given - Provider: Mayelin Oh, BEREKET) Continuous [...] Best RN)1300 (New Bag - Provider: Oscar Rascon RN)1800 (Stopped - Provider: Oscar Rascon RN) PRN [...] Oh, BEREKET)1406 (Given - Provider: Lakesha Worley RN)2110 (Given - Provider: Makenzie Tobias RN) 0740 [...] RN) 0837 (Given - Provider: Mayelin Oh, BEREKET)1859 (Given - Provider: Mayelin Oh, BEREKET) 0740 (Given - Provider: Mayelin Oh, BEREKET) Linked Groups Order Group 1: ketorolac (TORADOL) [...] Routine documented in this encounter Care Teams Casting Machine Operator Helper Relationship Specialty Start Date End Date Dav Carlos MD PCP - General 10/01/10 11/30/12 documented as of this encounter
--- OUTSIDE RECORDS SUMMARY | 2024-04-13 16:38 | XMS_ITS | Encounter Summary ---
Author Organization [facility] [place] [address] Care Team Providers Care Practical Nursing Faculty Name Role Phone Dav Carlos MD Primary Care Provider [phone] Encounter Details Date Type Department Care Team (Latest Contact Info) Description 11/24/2011 10:00 AM EDT - 11/24/2011 11:59 PM EDT Hospital Encounter Ultrasound [facility] [place] [id number] Unspecified high-risk Social History Tobacco Use Types [...] 11/24/2011 10:38 am) Patient Info ID: ? [id number] ? : ??[birth year] (31 yrs) Name: ? MIGDALIA MOREIRA ? Visit Date: 11/24/2011 10:27 am Performed By Performed By: ?Melissa Villareal RDMS Attending: ? Gerardo PENALOZA, Crispin Bishop Referred By: ? MARILYN HOUSE MD Service(s) Provided UOBFOL - Efw - Growth - Reevaluation - [place] ?[id number] - [id number] Indications Efw, Growth Evaluation Num Of Fetuses: [...] Final 11/24/2011 10:38 am) Patient Info ID: [id number] : [birth year] (31 yrs) Name: MIGDALIA MOREIRA Visit Date: 11/24/2011 10:27 am Performed By Performed By: Melissa Villareal RDMS Attending: Crispin Carrillo MD Referred By: MARILYN HOUSE MD Service(s) Provided UOBFOL - Efw - Growth - Reevaluation - [place] [id number] - [phone] Indications Efw, Growth Evaluation Num Of Fetuses: [...] high-risk documented in this encounter Care Teams Practical Nursing Faculty Relationship Specialty Start Date End Date Dav Carlos MD PCP - General 10/01/10 11/30/12 documented as of this encounter
--- OUTSIDE RECORDS SUMMARY | 2024-04-13 16:38 | XMS_ITS | Encounter Summary ---
Author Organization [facility], Located Within [facility] [place] [address] Care Team Providers Care Metal Spinner Name Role Phone Dav Carlos MD Primary Care Provider [phone] Encounter Details Date Type Department Care Team (Late st Contact Info) Description 08/29/2011 Orders Only Obstetrics [place] [address] Marilyn Reilly MD [facility] [address] OBSTETRICS [place] [address] Diabetes in Social History Tobacco Use Types [...] ? HARISH Xiao ?(Age): 1980(31) Med Rec#: ?[id number] ? Sex: ?F ? Site Loc: ?[facility] ? Ht / Wt: ??(cm)/(kg) ? Pt. Loc: ? Echo Lab ? BSA: ? Study Date: ?10/06/2011 ? Pt. Type: Outpatient Study Quality: ?Tape: ? Referring: Marilyn Reilly Rn Diabetes: Yosef Frankel Diagnosis:CPT Code(s): ??Doppler LTD (71034), ?? Echo F/U (45741), Color Doppler (88151), Indication(s): ??Maternal diabetes Rhythm: SUMMARY: 1. A [...] 10/06/2011 13:02:08 Images reviewed and interpretation verified [facility] Cardiac Ultrasound Laboratory Procedure Note Percy Morales MD - 10/06/2011 Procedure: Pediatric Echocardiogram Patient: HARISH Xiao DOB(Age): 1980(31) Med Rec#: [id number] Sex: F Site Loc: [facility] Ht / Wt: (cm)/(kg) Pt. Loc: Echo Lab BSA: Study Date: 10/06/2011 Pt. Type: Outpatient Study Quality: Tape: Referring: Marilyn Reilly Rn Diabetes: Yosef Frankel Diagnosis:CPT Code(s): Doppler LTD (19461), Echo F/U (22987), Color Doppler (81724), Indication(s): Maternal diabetes Rhythm: SUMMARY: 1. A [...] 10/06/2011 13:02:08 Images reviewed and interpretation verified [facility] Cardiac Ultrasound Laboratory Marilyn Reilly MD ECHO ORDERABLES documented in this encounter Visit Diagnoses Diagnosis Diabetes in Diabetes mellitus of mother, complicating , childbirth, or the puerperium, unspecified as to episode of care Diabetes in Diabetes mellitus of mother, complicating , childbirth, or the puerperium, unspecified as to episode of care documented in this encounter Care Teams Metal Spinner Relationship Specialty Start Date End Date Dav Carlos MD PCP - General 10/01/10 11/30/12 documented as of this encounter
--- OUTSIDE RECORDS SUMMARY | 2024-04-13 16:38 | XMS_ITS | Encounter Summary ---
Author Organization [facility] [place] [address] Care Team Providers Care Cotton Stripper Name Role Phone Dav Carlos MD Primary Care Provider [phone] Reason for Visit * Reason Comments Routine Visit Encounter Details Date Type Department Care Team ([facility] st Contact Info) Description 11/24/2011 11:15 AM EDT Routine Obstetrics [place] [address] CLINIC, Marilyn Benites MD [facility] OBSTETRICS [place] [address] GA: 34w1d Discharge Disposition: Home Social History [...] Final 12/18/2011 11:15 am) Patient Info ID: ?[id number] ?: ??[birth year] (31 yrs) Name: ?MIGDALIA MOREIRA ?Visit Date: 12/18/2011 08:57 am Performed By Performed By: ?Melissa Villareal RDMS Attending: ? Arik PENALOZA, E ??Valerie Referred By: ? MARILYN HOUSE MD Service(s) Provided UOBFOL - Efw - Growth - Reevaluation - Bermudez ?[id number] - [phone] Indications Reason for exam and clinical history: [...] Final 12/18/2011 11:15 am) Patient Info ID: [id number] : [birth year] (31 yrs) Name: MIGDALIA MOREIRA Visit Date: 12/18/2011 08:57 am Performed By Performed By: Melissa Villareal [facility] Attending: Lisette Elise MD Referred By: MARILYN HOUSE MD Service(s) Provided UOBFO - [facility] - Growth - Reevaluation - Bermudez [phone] - [phone] Indications Reason for exam and clinical history: [...] high-risk documented in this encounter Care Teams Cotton Stripper Relationship Specialty Start Date End Date Dav Calros MD PCP - General 10/01/10 11/30/12 documented as of this encounter
--- OUTSIDE RECORDS SUMMARY | 2024-04-13 16:38 | XMS_ITS | Encounter Summary ---
Author Organization Formerly [facility] [place] [address] Care Team Providers Care Senior Engineering Associate Name Role Phone Dav Carlos MD Primary Care Provider [phone] Reason for Visit * Reason Comments Routine Visit Encounter Details Date Type Department Care Team ([facility] st Contact Info) Description 07/16/2011 11:00 AM EDT Routine Obstetrics [place] [address] Marilyn Reilly MD [facility] [address] [place] [address] GA: 15w3d Discharge Disposition: Home Social History [...] Lab Marilyn Reilly MD URINE ORDERABLES CERNER UbiquisysENNIUM documented in this encounter Visit Diagnoses Diagnosis Diabetes mellitus- Primary Type II or unspecified type diabetes mellitus without mention of complication, not stated as uncontrolled Diabetes in Diabetes mellitus of mother, complicating , childbirth, or the puerperium, unspecified as to episode of care Unspecified high-risk documented in this encounter Care Teams Senior Engineering Associate Relationship Specialty Start Date End Date Dav Carlos MD PCP - General 10/01/10 11/30/12 documented as of this encounter
--- OUTSIDE RECORDS SUMMARY | 2024-04-13 16:38 | XMS_ITS | Encounter Summary ---
Author Organization Formerly [facility] [place] [address] Care Team Providers Care Alteration Tailor Name Role Phone Dav Carlos MD Primary Care Provider [phone] Reason for Visit * Reason Comments Non-stress Test Encounter Details Date Type Department Care Team (Latest Contact Info) Description 11/20/2011 2:30 PM EDT Routine Obstetrics and [facility]necology at [facility] [place] [address] Alexandre Powers RN GA: 33w4d Discharge Disposition: [...] status documented in this encounter Care Teams Alteration Tailor Relationship Specialty Start Date End Date Dav Carlos MD PCP - General 10/01/10 11/30/12 documented as of this encounter
--- OUTSIDE RECORDS SUMMARY | 2024-04-13 16:38 | XMS_ITS | Encounter Summary ---
Author Organization [facility] [place] [address] Care Team Providers Care Director Franchise Sales Name Role Phone Dav Carlos MD Primary Care Provider [phone] Reason for Visit * Reason Onset Date Comments Ultrasound 06/01/2011 Encounter Details Date Type Department Care Team (Latest Contact Info) Description 05/29/2011 11:00 AM EST Initial consult Obstetrics [place] [address] Lisette Elise MD [facility] DR OBSTETRICS [place] [address] Unspecified high-risk (Primary Dx) Discharge Disposition: Home [...] Procedure Name Priority Date/Time Associated Diagnosis Comments ZONE SUPERVISOR FIREARMS CYTOLOGY FINAL REPORT Routine 05/29/2011 3:57 PM EST documented in this encounter Results * ZONE SUPERVISOR FIREARMS CYTOLOGY FINAL REPORT (05/29/2011 3:57 PM EST) Powder Nipper Cytology Final Report ? [facility] ? Provider: ?? MARILYN HOUSE Pt. Name: ?? MIGDALIA MOREIRA ? Acc #: ?[id number] ?Pt. ? Col Date: ?? 05/29/2011 ? /Sex: ?1980,(31 ? years),Female ? Rec Date: ?? 05/29/2011 ? LOC: ?5L ? CYTOPATHOLOGY: ??ZONE SUPERVISOR FIREARMS ? ---Adequacy--- ? Specimen submitted is satisfactory. ? Endocervical component present. ? ---Cytopathologic Diagnosis--- ? NORMAL ? Negative for Intraepithelial Lesion or Malignancy (NILM). ? 06/02/11 ?? Screened by: ??LMY ? 06/02/11 ?? Verified by: ??Satya REYNOSO(ASCP), Julia Zuniga - Sales Support Assistant ? ---Clinical Information--- ? HPV Option: ? Reflex HPV ? Preparation: ?Liquid Based Pap ? Specimen Source: ?Cervical Endocervical LBP ? LMP: ?dec 3 ? Hormones?: ?No ? Hysterectomy?: ?No ?: ?No ?: ?Yes ? I.U.D.?: ?No ? Pelvic Radiation: ? No ? Prior ZONE SUPERVISOR FIREARMS Therapy?: ? No ? Hist Abnl Pap/Biopsy?: [...] ??For further ? information please contact the [facility] Laboratory. ? Reference: ??Amanda BLACK. ??Air Carrier Inspector of Pap Smear Results. ??In: ? Barbara BS, [facility], ed. ??The Pap Smear. ??[place]: ??Mendoza, 2002: ? 71-77. ANA GILMAN 05/29/2011 3:57 PM EST Marilyn House MD PATHOLOGY/CYTOLOGY ORDERABLES ANA GILMAN documented in this encounter Visit Diagnoses Diagnosis Unspecified high-risk - Primary documented in this encounter Care Teams Director Franchise Sales Relationship Specialty Start Date End Date Dav Carlos MD PCP - General 10/01/10 11/30/12 documented as of this encounter
--- OUTSIDE RECORDS SUMMARY | 2024-04-13 16:38 | XMS_ITS | Encounter Summary ---
Author Organization [facility] [place] [address] Care Team Providers Care Bull Driver Name Role Phone Dav Carlos MD Primary Care Provider [phone] Reason for Visit * Reason Comments Routine Visit Encounter Details Date Type Department Care Team ([facility] st Contact Info) Description 11/10/2011 9:00 AM EDT Routine Obstetrics [place] [address] Marilyn House MD [facility] DR OBSTETRICS [place] [address] GA: 32w1d Discharge Disposition: Home Social History [...] 11/24/2011 10:38 am) Patient Info ID: ? [id number] ? : ??[birth year] (31 yrs) Name: ? MIGDALIA MOREIRA ? Visit Date: 11/24/2011 10:27 am Performed By Performed By: ?Melissa Villareal RDMS Attending: ? Gerardo PENALOZA, Crispin Bishop Referred By: ? MARILYN HOUSE MD Service(s) Provided UOBFOL - Efw - Growth - Reevaluation - Bermudez ?[id number] - [phone] Indications Efw, Growth Evaluation Num Of Fetuses: [...] Final 11/24/2011 10:38 am) Patient Info ID: [id number] : [birth year] (31 yrs) Name: MIGDALIA MOREIRA Visit Date: 11/24/2011 10:27 am Performed By Performed By: Melissa Villareal RDMS Attending: Crispin Carrillo MD Referred By: MARILYN HOUSE MD Service(s) Provided UOBFOL - Efw - Growth - Reevaluation - Bermudez [phone] - [phone] Indications Efw, Growth Evaluation Num Of Fetuses: [...] high-risk documented in this encounter Care Teams Bull Driver Relationship Specialty Start Date End Date Dav Carlos MD PCP - General 10/01/10 11/30/12 documented as of this encounter
--- OUTSIDE RECORDS SUMMARY | 2024-04-13 16:38 | XMS_ITS | Encounter Summary ---
Author Organization [facility] [place] [address] Care Team Providers Care Plastic Block Boiler Reliner Name Role Phone Dav Carlos MD Primary Care Provider [phone] Encounter Details Date Type Department Care Team (Latest Contact Info) Description 08/11/2011 9:30 AM EDT Routine Obstetrics [place] [address] CLINIC, Lisette Aviles MD [facility] OBSTETRICS [place] [address] GA: 19w1d Discharge Disposition: Home Social History [...] applicable documented in this encounter Care Teams Plastic Block Boiler Reliner Relationship Specialty Start Date End Date Dav Carlos MD PCP - General 10/01/10 11/30/12 documented as of this encounter
--- OUTSIDE RECORDS SUMMARY | 2024-04-13 16:38 | XMS_ITS | Encounter Summary ---
Author Organization Formerly [facility] [place] [address] Care Team Providers Care Press Operator Apprentice Name Role Phone Dav Carlos MD Primary Care Provider [phone] Reason for Visit * Reason Comments Routine Visit Encounter Details Date Type Department Care Team ([facility] st Contact Info) Description 12/01/2011 10:30 AM EDT Routine Obstetrics [place] [address] Marilyn Reilly MD [facility] DR OBSTETRICS [place] [address] GA: 35w1d Discharge Disposition: Home Social History [...] care documented in this encounter Care Teams Press Operator Apprentice Relationship Specialty Start Date End Date Dav Carlos MD PCP - General 10/01/10 11/30/12 documented as of this encounter
--- OUTSIDE RECORDS SUMMARY | 2024-04-13 16:38 | XMS_ITS | Encounter Summary ---
Author Organization [facility] Address [facility] [place] [address] Care Team Providers Care Occupational Health And Safety Manager Name Role Phone Dav Carlos MD Primary Care Provider [phone] Reason for Visit * Reason Comments Emesis Encounter Details Date Type Department Care Team ([facility] Contact Info) Description 09/09/2011 2:04 AM EDT - 09/09/2011 7:39 AM EDT [place] [address] Sivakumar Hopson MD [facility] [place] [address] Nausea with vomiting; , excessive vomiting Discharge [...] AFTER YOUR VISIT TO THE EMERGENCY ROOM ([facility]) documented in this encounter Medications at Time [...] Mcmullen RN - 09/09/2011 3:11 AM EDT CLOSET ORGANIZER here * Esteban Mcmullen RN - 09/09/2011 [...] past evening, after eating dinner ([facility] the patient felt sick to her stomach [...] 1/2 mL 30 x 09/01 Syrg by [facility].(Non-Drug; Combo Route) route. Taking [...] normal. Procedures Bedside U/S-> reassuring heart tones [facility]- N/A Diagnostics: Recent Results (from the [...] Appearance UA Hazy (*) Clear ??? Spec [place]ford UA 1.014 1.002 - 1.030 ??? Color [...] fluids; Zofran ODT 4 mg; Bedside U/S; Harness Cleaner consult; D5; Discharge home Wei Martin MD Resident 09/09/11 1724 ED ATTENDING NOTE: I reviewed Dr. Martin's note and agree with the lewis portions of the documented findings and plan of care. I performed an independent history and physical exam myself. I independently reviewed the labs. FHT 140's. Endeavor much better in the emergency Perman after [...] Urine Dipstick Hazy(A) Clear CERNER MILLENNIUM Specific [place] Urine Automated 1.014 1.002 - 1.030 CERNER [...] EDT Sivakumar Hopson MD HEMATOLOGY ORDERABLE S [facility] * (ABNORMAL) BETA HYDROXYBUTYRATE (09/09/2011 4:10 AM EDT) Beta-hydroxybu turate 0.41(H) 0.00 - 0.30 mmol/L CERNER MILLENNIUM Comment: Reference range: ??0.00-0.30 mmo1/L, based on an overnight fast. ??Children may be higher. Blood specimen (specimen) 09/09/2011 4:10 AM EDT 09/09/2011 4:16 AM EDT Narrative Resulting Agency Comment Spec In Lab Sivakumar Hopson MD CHEMISTRY ORDERABLES [facility] * (ABNORMAL) Comprehensive metabolic panel (non-fasting) (09/09/2011 4:10 AM EDT) [facility] Glucose 117 60 - 199 mg/dL CERNER [...] RN) documented in this encounter Care Teams Occupational Health And Safety Manager Relationship Specialty Start Date End Date Dav Carlos MD PCP - General 10/01/10 11/30/12 documented as of this encounter
--- OUTSIDE RECORDS SUMMARY | 2024-04-13 16:38 | XMS_ITS | Encounter Summary ---
Author Organization [facility] [place] [address] Care Team Providers Care Button Bradder Name Role Phone Dav Carlos MD Primary Care Provider [phone] Encounter Details Date Type Department Care Team (Latest Contact Info) Description 12/18/2011 9:30 AM EDT Routine Obstetrics [place] [address] CLINIC, Lisette Aviles MD [facility] OBSTETRICS [place] [address] GA: 37w4d Discharge Disposition: Home Social History [...] care documented in this encounter Care Teams Button Bradder Relationship Specialty Start Date End Date Dav Carlos MD PCP - General 10/01/10 11/30/12 documented as of this encounter
--- OUTSIDE RECORDS SUMMARY | 2024-04-13 16:38 | XMS_ITS | Encounter Summary ---
Author Organization Formerly [facility] Address [facility] [place] [address] Care Team Providers Care Machine Finisher Name Role Phone Dav Carlos MD Primary Care Provider [phone] Encounter Details Date Type Department Care Team (Latest Contact Info) Description 08/27/2011 10:07 AM EDT - 08/27/2011 11:59 PM EDT Hospital Encounter Non-In[place] [address] CARDIO, ECHO SIXTY MIN APPT None Lisette Elise MD [facility] OBSTETRICS [place] [address] Unspecified high-risk Discharge Disposition: Home Social History [...] ? HARISH Xiao ?(Age): 1980(31) Med Rec#: ?[id number] ? Sex: ?F ? Site Loc: ?[facility] [place] [facility] ? Ht / Wt: ??(cm)/(kg) ? Pt. Loc: ? Echo Lab ? BSA: ? Study Date: ?08/27/2011 ? Pt. Type: Outpatient Study Quality: ?Tape: ? Referring: Grover Elise Tobacco Cloth Reclaimer: Yosef Frankel Diagnosis:CPT Code(s): ?? Echo Full (32182), ?? Doppler Full (93747), ??Color Doppler (42121), Indication(s): ??Maternal diabetes Rhythm: SUMMARY: 1. A [...] 08/28/2011 07:53:22 Images reviewed and interpretation verified [facility] Cardiac Ultrasound Laboratory Procedure Note Percy Morales MD - 08/28/2011 Procedure: Pediatric Echocardiogram Patient: HARISH Xiao (Age): 1980(31) Med Rec#: [id number] Sex: F Site Loc: [facility] Ht / Wt: (cm)/(kg) Pt. Loc: Echo Lab BSA: Study Date: 08/27/2011 Pt. Type: Outpatient Study Quality: Tape: Referring: Grover Elise Tobacco Cloth Reclaimer: Yosef Frankel Diagnosis:CPT Code(s): Echo Full (21798), Doppler Full (60979), Color Doppler (33915), Indication(s): Maternal diabetes Rhythm: SUMMARY: 1. A [...] 08/28/2011 07:53:22 Images reviewed and interpretation verified [facility] Cardiac Ultrasound Laboratory Marilyn Reilly MD ECHO ORDERABLES documented in this encounter Visit Diagnoses Diagnosis Unspecified high-risk documented in this encounter Care Teams Machine Finisher Relationship Specialty Start Date End Date Dav Carlos MD PCP - General 10/01/10 11/30/12 documented as of this encounter
--- OUTSIDE RECORDS SUMMARY | 2024-04-13 16:38 | XMS_ITS | Encounter Summary ---
Author Organization [facility] [place] [address] Care Team Providers Care Flash Welder Name Role Phone Dav Carlos MD Primary Care Provider [phone] Reason for Visit * Reason Comments Non-stress Test Encounter Details Date Type Department Care Team (Latest Contact Info) Description 12/11/2011 11:15 AM EDT Routine Obstetrics and Gynecology at [facility] [place] [address] Alexandre Powers, RN GA: 36w4d Discharge Disposition: [...] uncontrolled documented in this encounter Care Teams Flash Welder Relationship Specialty Start Date End Date Dav Carlos MD PCP - General 10/01/10 11/30/12 documented as of this encounter
--- OUTSIDE RECORDS SUMMARY | 2024-04-13 16:38 | XMS_ITS | Encounter Summary ---
Author Organization [facility] [place] [address] Care Team Providers Care It Programmer Analyst Name Role Phone Dav Carlos MD Primary Care Provider [phone] Encounter Details Date Type Department Care Team (Late st Contact Info) Description 12/18/2011 4:02 PM EDT [place] [address] Reji Banuelos MD [facility] [place] [address] Julio Billy MD [facility] [place] [address] Anesthesia Record Procedure Summary Procedure Name Responsible [...] Date of Encounter: 12/19/11 Place of Service: [facility] Responsible Attending: Syed Dempsey MD House Staff [...] Barth MD Anesthesia CA-2 beeper # : [id number] * Anesthesia Procedure Notes - Emelina Meadows [...] the past, but was intubated asleep at [facility] for a cholecystectomy (she does not recall [...] on filedocumented in this encounter Care Teams It Programmer Analyst Relationship Specialty Start Date End Date Dav Carlos MD PCP - General 10/01/10 11/30/12 documented as of this encounter
--- OUTSIDE RECORDS SUMMARY | 2024-04-13 16:38 | XMS_ITS | Encounter Summary ---
Author Organization Formerly [facility] [place] [address] Care Team Providers Care Cylinder Handler Name Role Phone Dav Carlos MD Primary Care Provider [phone] Reason for Visit * Reason Comments Routine Visit Encounter Details Date Type Department Care Team (Latest Contact Info) Description 08/27/2011 11:00 AM EDT Routine Obstetrics [place] [address] Lisette Elise MD [facility] [address] [place] [address] GA: 21w3d Discharge Disposition: Home Social History [...] reflux documented in this encounter Care Teams Cylinder Handler Relationship Specialty Start Date End Date Dav Carlos MD PCP - General 10/01/10 11/30/12 documented as of this encounter
--- OUTSIDE RECORDS SUMMARY | 2024-04-13 16:38 | XMS_ITS | Encounter Summary ---
Author Organization [facility] [place] [address] Care Team Providers Care Lime Mixer Tender Name Role Phone Dav Carlos MD Primary Care Provider [phone] Reason for Visit * Reason Comments Routine Visit Encounter Details Date Type Department Care Team ([facility] st Contact Info) Description 09/10/2011 3:15 PM EDT Routine Obstetrics [place] [address] Marilyn Reilly MD [facility] DR OBST[place] [address] GA: 23w3d Discharge Disposition: Home Social History [...] (if applicable) along with the Guide to [place] was given to the patient. The materials [...] Marilyn Reilly MD HEMATOLOGY ORDERAB [facility] documented in this encounter Visit Diagnoses Diagnosis Unspecified high-risk documented in this encounter Care Teams Lime Mixer Tender Relationship Specialty Start Date End Date Dav Carlos MD PCP - General 10/01/10 11/30/12 documented as of this encounter
--- OUTSIDE RECORDS SUMMARY | 2024-04-13 16:38 | XMS_ITS | Encounter Summary ---
Author Organization [facility] [place] [address] Care Team Providers Care Screw Supervisor Name Role Phone Dav Carlos MD Primary Care Provider [phone] Reason for Visit * Reason Comments Non-stress Test Type II diabetes Encounter Details Date Type Department Care Team (Latest Contact Info) Description 12/15/2011 9:00 AM EDT Routine Obstetrics and Gynecology at [facility] [place] [address] Alexandre Powers, RN GA: 37w1d Discharge Disposition: [...] uncontrolled documented in this encounter Care Teams Screw Supervisor Relationship Specialty Start Date End Date Dav Carlos MD PCP - General 10/01/10 11/30/12 documented as of this encounter
--- OUTSIDE RECORDS SUMMARY | 2024-04-13 16:39 | XMS_ITS | Encounter Summary ---
Author Organization [facility] Address [address] [place] [address] Care Team Providers Care Devops Solutions Architect Name Role Phone Unknown, Provider Primary Care Provider Trice Smith Primary Care Provider [phone] Encounter Details Date Type Department Care Team (Late st Contact Info) Description 09/12/2022 Lab Requisition [facility] Pathology & Laboratory Medicine - [address] [id number] Outr Resulting Lab, Provider Social History Tobacco Use Types Packs/Day Years Used Date Smoking Tobacco: Never Assessed Comments Unknown Sex and Gender Information Value Date Recorded Sex Assigned at Not on file Legal Sex Female 18:36 EST Gender Identity Not on file Sexual Orientation [...] 4th Generation Negative Negative 09/14/2022 9:52 EDT [facility] Comment:If acute HIV-1 infec tion is suspected in a high risk patient, submit plasma specimen for HIV-1 RNA quantitation test. Blood VENOUS BLOOD / Unknown 09/11/2022 12:04 EDT 09/12/2022 21:23 EDT Narrative [facility] - 09/14/2022 9:52 EDT Fourth Generation assay performed on the Enjoiaur XPT. us Provider Outr Resulting Lab IMMUNOLOGY AND SEROL OGY ORDERABLES Final Result [facility] [address] [place] [address] documented in this encounter Visit Diagnoses Not on filedocumented in this encounter Care Teams Devops Solutions Architect Relationship Specialty Start Date End Date Unknown, Provider, PCP - General 02/20/15 01/16/23 Trice Holman [place] [address] [place] [address] PCP - General 01/17/23 documented as of this encounter
--- OUTSIDE RECORDS SUMMARY | 2024-04-13 16:39 | XMS_ITS | Encounter Summary ---
Author Organization [facility] Address [address] [place] [address] Care Team Providers Care Tire Retreader Name Role Phone Unknown, Provider Primary Care Provider Trice Smith Primary Care Provider [phone] Encounter Details Date Type Department Care Team (Late st Contact Info) Description 09/12/2022 Lab Requisition [facility] Pathology & Laboratory Medicine - [address] [address] Outr Resulting Lab, Provider Social History Tobacco [...] Negative Negative 09/14/2022 10:09 EDT [facility] Blood VENOUS BLOOD / Unknown 09/11/2022 12:04 EDT 09/12/2022 21:24 EDT us Provider Outr Resulting Lab IMMUNOLOGY AND SEROL OGY ORDERABLES Final Result Performing Organization Address City/[facility]/ZIP Co de Phone Number [facility] [address] [place] [address] * HEPATITIS C AB W REFLEX TO HCV RNA BY PCR (09/11/2022 12:04 EDT) Hep C Antibody Negative Negative 09/14/2022 10:09 EDT [facility] Blood VENOUS BLOOD / Unknown 09/11/2022 12:04 EDT 09/12/2022 21:24 EDT us Provider Outr Resulting Lab CHEMISTRY & BLOOD GA S ORDERABLES Final Result Performing Organization Address [facility] de Phone Number [facility] [address] [place] [address] documented in this encounter Visit Diagnoses Not on filedocumented in this encounter Care Teams Tire Retreader Relationship Specialty Start Date End Date Unknown, Provider, PCP - General 02/20/15 01/16/23 Trice Holman FNP [address] [place] [address] PCP - General 01/17/23 documented as of this encounter
--- OUTSIDE RECORDS SUMMARY | 2024-04-13 16:39 | XMS_ITS | Encounter Summary ---
Author Organization [facility] [place] [address] Care Team Providers Care Shipfitter Name Role Phone Galina Hook MD Primary Care Provider [phone] Reason for Visit * Reason Comments Obstructive Sleep Apnea Encounter Details Date Type Department Care Team ([facility] Contact Info) Description 12/01/2010 1:40 PM EDT Office Visit Sleep Medicine [facility] [place] [address] Rudolph Bustamante MD CADY (obstructive sleep apnea) (Primary Dx) Social [...] Yes Headaches upon awakening: Yes Daytime Symptoms: [place] Sleepiness Score: 14/24 Upon Awakening: Unrefreshed Daytime [...] 30 y.o. 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 4. Follow up will be arranged after reviewing the sleep study results. documented in this encounter Plan of Treatment Not on file documented as of this encounter Visit Diagnoses Diagnosis CADY (obstructive sleep apnea)- Primary Obstructive sleep apnea (adult) (pediatric) documented in this encounter Care Teams Shipfitter Relationship Specialty Start Date End Date Galina Hook MD PCP - General 10/01/10 11/30/12 documented as of this encounter
--- OUTSIDE RECORDS SUMMARY | 2024-04-13 16:39 | XMS_ITS | Encounter Summary ---
Author Organization [facility] [place] [address] Care Team Providers Care Pit Shovel Operator Name Role Phone Dav Carlos MD Primary Care Provider [phone] Encounter Details Date Type Department Care Team (Late st Contact Info) Description 07/02/2010 Abstract Obstetrics [place] [address] Alina Krishna MD [facility] [address] OBSTETRICS [place] [address] Social History Tobacco Use Types Packs/Day Years [...] on filedocumented in this encounter Care Teams Pit Shovel Operator Relationship Specialty Start Date End Date Dav Carlos MD PCP - General 10/01/10 11/30/12 documented as of this encounter
--- OUTSIDE RECORDS SUMMARY | 2024-04-13 16:39 | XMS_ITS | Encounter Summary ---
Author Organization [facility] Address [address] [place] [address] Care Team Providers Care Funeral Professional Name Role Phone Unknown, Provider Primary Care Provider Trice Smith Primary Care Provider [phone] Encounter Details Date Type Department Care Team (Latest Contact Info) Description 09/15/2022 Lab Requisition [facility] Pathology & Laboratory Medicine - [address] [address] Rosalva Valdez FNP [address] [facility] [address] [place] [id number] Encounter for general adult medical examination without [...] 16, PCR Negative Negative 10/01/2022 13:45 EDT [facility] HPV18/45 RNA (HPV18/45) Negative Negative 10/01/2022 13:45 EDT [facility] Papanicolaou smear specimen (specimen) CERVIX UTERI STRUCTURE / Unknown 09/11/2022 11:30 EDT 09/30/2022 9:55 EDT Rosalva Valdez PACKAGING SALES MICROBIOLOGY - GENERAL ORDERA BLES Final Result [facility] [address] [place] [address] * (ABNORMAL) HUMAN PAPILLOMAVIRUS (HPV) DETECTION-HIGH RISK TYPES (09/11/2022 11:30 EDT) HPV other High Risk types, PCR Positive( A) Negative 10/01/2022 13:45 EDT [facility] Comment:E6 OR E7 mRNA from o ne or more types of HPV types 16,18,31,33,35,39,45,51,52,56,58,59,66, and 68 is detected by knitter machine mediated amplification. High and intermediate risk HPV types are associated with most squamous intraepithelial lesions and cervical cancers. Papanicolaou smear specimen (specimen) CERVIX UTERI STRUCTURE / Unknown 09/11/2022 11:30 EDT 09/30/2022 9:55 EDT Rosalva Watson José Miguel PACKAGING SALES MICROBIOLOGY - GENERAL ORDERA BLES Final Result [facility] [address] [place] [address] * PAP TEST (09/11/2022 11:30 EDT) Specimens A. Cervix and/or Endocervix , ThinPrep Imaging System with Manual Evaluation 10/01/2022 13:45 EDT [facility] Specimen Adequacy Satisfactory for Evaluation - transformation zone component present Scant due to excessive blood 10/01/2022 13:45 EDT [facility] General Categorization Negative for intraepithelial lesion or malignancy 10/01/2022 13:45 T [facility] Attestation . 10/01/2022 13:45 [facility] at 1345 Clinical History See below 10/02/19 13:45 EDT [facility] HPV The result for the Human Papillomavirus (HPV) Detection-High Risk Types is Positive . E6 OR E7 mRNA from one or more types of HPV types 16,18,31,33,35,39 ,45,51,52,56,58,5 9,66, and 68 is detected by knitter machine mediated amplification. High and intermediate risk HPV types are associated with most squamous intraepithelial lesions and cervical cancers. Testing was performed on specimen [id number] and was resulted on 09/30/2022 1647 EDT by FLORIAN, LAB INSTRUMENT RESULTS IN 10/01/2022 13:45 EDT [facility] Genotyping 16 & 18/45 The results for the HPV Genotypes 16 and 18/45 are Negative for the HPV16 RNA and Negative for the HPV18/45 RNA (HPV18/45). Testing was performed on specimen [id number] and was resulted on 10/01/2022 1345 EDT by FLORIAN, LAB INSTRUMENT RESULTS IN 10/01/2022 13:45 EDT [facility] Performing Lab [facility] 10/01/2022 13:45 T [facility] Scanned Images 10/01/2022 13:45 EDT [facility] Papanicolaou smear specimen (specimen) CERVIX UTERI STRUCTURE / Unknown 09/11/2022 11:30 EDT 09/16/2022 12:32 EDT Rosalva IQBALP PATHOLOGY ORDERABLES Final Re sult Performing Organization Address City/[facility]/ZIP Co de Phone Number [facility] [address] [place] [address] * CHLAMYDIA/N. GONORRHOEAE AMPLIFIED RNA, THINPREP (09/11/2022 11:30 EDT) Neisseria gonorrhoeae Result Negative Negative 09/16/2022 14:31 EDT [facility] Chlamydia trachomatis Result Negative Negative 09/16/2022 14:31 EDT [facility] Papanicolaou smear specimen (specimen) CERVIX UTERI STRUCTURE / Unknown 09/11/2022 11:30 EDT 09/16/2022 9:34 EDT Rosalva IQBALP MICROBIOLOGY - GENERAL ORDERA BLES Final Result Performing Organization Address [facility]/ZIP Co de Phone Number [facility] [address] [place] [address] documented in this encounter Visit Diagnoses Diagnosis Encounter for general adult medical examination without abnormal findings Unspecified general medical examination Encounter for screening for malignant neoplasm of cervix Screening for malignant neoplasm of the cervix Encounter for screening for human papillomavirus (HPV) Special screening examination for human papillomavirus (HPV) documented in this encounter Care Teams Funeral Professional Relationship Specialty Start Date End Date Unknown, Provider, PCP - General 02/20/15 01/16/23 Trice Holman FNP [address] [place] [address] PCP - General 01/17/23 documented as of this encounter
--- OUTSIDE RECORDS SUMMARY | 2024-04-13 16:39 | XMS_ITS | Encounter Summary ---
Author Organization [facility] Address [address] [place] [address] Care Team Providers Care Catalyst Operator Chief Name Role Phone Unavailable Primary Care Provider Unavailabl e Encounter Details Date Type Department Care Team (Late st Contact Info) Description 02/18/2005 Results Only [facility] conversion [address] [place] [address] Benedict Corona MD [address] [place] [address] Social History Tobacco Use Types [...] ? MIGDALIA MONCADA ? Accession #: ? [id number] ? : ? 1980 (Age: 24) ??F [...] wall measures 0.2 cm in maximum thickness. Chiller Tender sections are submitted as follows: BLOCK DE LA ROSA A1 ?Cystic duct node bisected A2 ?Chiller Tender sections of cystic duct surgical margin, body and fundus (Dr. Acevedo)/[facility] End of Report SETH AYALA 02/18/2005 02/18/2005 15: 17 EST us Benedict Corona MD PATHOLOGY ORDERABLES Final Resul t SETH AYALA [address] [place] [address] documented in this encounter Visit Diagnoses Not on filedocumented in this encounter
--- OUTSIDE RECORDS SUMMARY | 2024-04-13 16:39 | XMS_ITS | Encounter Summary ---
Author Organization [facility] [place] [address] Care Team Providers Care Boom Crane Operator Name Role Phone Enoch Medina MD Primary Care Provider [phone] Encounter Details Date Type Department Care Team (Late st Contact Info) Description 03/03/2010 Orders Only Lab [facility] [place] [phone] Alina Krishna MD OBSTETRICS & GYNECOLOGY Social [...] 4:11 PM EST) Surgical Pathology Report [id number] ? Location: 5L The signing pathologist has [...] on filedocumented in this encounter Care Teams Boom Crane Operator Relationship Specialty Start Date End Date Enoch Medina MD [facility] [address] [place] [address] PCP - General Family Medicine 08/22/20 06/03/21 documented as of this encounter
--- OUTSIDE RECORDS SUMMARY | 2024-04-13 16:39 | XMS_ITS | Encounter Summary ---
Author Organization [facility] [place] [address] Care Team Providers Care Auto Clocks Repairer Name Role Phone Dav Carlos MD Primary Care Provider [phone] Reason for Visit * Reason Comments Hypersomnia Obstructive Sleep Apnea Encounter Details Date Type Department Care Team ([facility] st Contact Info) Description 12/11/2010 8:30 AM EDT [place] [address] Marleen Taylor MD [facility] [place] [address] CADY (obstructive sleep apnea) (Primary Dx) Social [...] 30 y.o. 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
--- OUTSIDE RECORDS SUMMARY | 2024-04-13 16:39 | XMS_ITS | Encounter Summary ---
Author Organization [facility] Address [address] [place] [address] Care Team Providers Care Cold Food Packer Name Role Phone Trice Holman Primary Care Provider [phone] Encounter Details Date Type Department Care Team (Late st Contact Info) Description 01/30/2023 Lab Requisition [facility] Pathology & Laboratory Medicine - [address] [address] Jennie Villegas MD [address] [place] [phone] Encounter for other general examination Social History [...] management options, if applicable. 02/03/2023 9:[address] [facility] Final Diagnosis A. CERVIX, BRUSH: -Low-grade squamous intra-epithelial lesion (VERONICA 1). See comment. 02/03/2023 9:13 [facility] Diagnosis Comment Immunoperoxidase stains were performed on this case to further characterize the lesion. ANTIBODY(CLONE)(BL OCK):RESULT P16 (E6H4TM, [place]) (A1): Negative NOTE: One or more [...] performance characteristics have been determined by [facility] and/or by the referring laboratory. [...] high complexity clinical laboratory testing. 02/03/2023 9:13 [facility] Attestation By the signature below, the attending physician certifies that they have 1) personally conducted a gross and/or microscopic examination of the described specimen(s), and/or personally interpreted the results of laboratory testing of the described specimen(s), and 2) personally rendered or confirmed the above diagnosis. 02/03/2023 9:13 [facility] at 0913 Clinical History +HR HPV 02/03/2023 9:13 [facility] Gross Description A. Received in formalin, on a Histologic S-100 brush, labelled with proper patient identification (initials C, M) and cervical is a 0.4 x 0.2 x 0.2 cm aggregate of corona tissue. The specimen is entirely submitted in A1. ABEL DIAZ(ASCP) 02/01/2023 8:59 02/03/2023 9:13 [facility] Performing Lab [facility] 9:[address] [facility] Scanned Images 02/03/2023 9:[address] [facility] Tissue CERVIX UTERI STRUCTURE / Unknown 01/29/2023 11:10 EDT 01/30/2023 8:09 EDT us Jennie Villegas MD PATHOLOGY ORDERABLES Final R esult [facility] [address] [place] [address] documented in this encounter Visit Diagnoses Diagnosis Encounter for other general examination documented in this encounter Care Teams Cold Food Packer Relationship Specialty Start Date End Date Trice Hol[place] [address] PCP - General 01/17/23 documented as of this encounter
--- OUTSIDE RECORDS SUMMARY | 2024-04-13 16:39 | XMS_ITS | Encounter Summary ---
Author Organization [facility] [address] Care Team Providers Care Horticulture/Floriculture Teacher Name Role Phone Dav Carlos MD Primary Care Provider [phone] Reason for Visit * Reason Comments Routine Visit Encounter Details Date Type Department Care Team ([facility] st Contact Info) Description 05/29/2011 11:30 AM EST Routine Obstetrics [place] [phone] CLINIC, Marilyn Benites MD [facility] OBSTETRICS [place] [address] GA: 8w4d Social History Tobacco Use Types [...] EST Unspecified high-risk HIV SCREEN, 4TH GENERATION ([facility]/CGP/APD/NLH) Routine 05/29/2011 12:38 PM EST [...] MD HEMATOLOGY ORDERAB LES Performing Organization Address City/[facility] Co de Phone Number [facility] * ANTIBODY SCREEN (05/29/2011 12:38 PM EST) Ab Screen Interp Negative [facility]XX[facility]AN[facility] Expires at 2359 on: [id number] [facility] MILLENNIUM Blood specimen (specimen) 05/29/2011 12:38 PM EST 05/29/2011 12:43 PM EST Marilyn Reilly MD BLOOD BANK LAB ORD ERABLES Performing Organization Address City/[facility] Co de Phone Number [facility] * ABO/RH TYPING (05/29/2011 12:38 PM EST) ABORH Type A Neg [facility] MILLENNIUM Blood specimen (specimen) 05/29/2011 12:38 PM EST 05/29/2011 12:43 PM EST Marilyn Reilly MD BLOOD BANK LAB ORD ERABLES Performing Organization Address City/[facility]/ZIP Co de Phone Number [facility] * (ABNORMAL) RUBELLA ANTIBODY, IGG (05/29/2011 12:38 [...] MD CHEMISTRY ORDERABL ES Performing Organization Address [facility] Phone Number [facility] MILLENNIUM * HEPATITIS B SURFACE ANTIGEN (05/29/2011 12:38 PM EST) Hepatitis B Surface Antigen Negative Negative [facility] Blood specimen (specimen) 05/29/2011 12:38 PM EST 05/29/2011 12:40 PM EST Marilyn Reilly MD CHEMISTRY ORDERABL ES Performing Organization Address [facility] Phone Number [facility]ENNI[facility] * SYPHILIS ANTIBODY, IGG (05/29/2011 12:38 PM EST) Syphilis IgG Negative Negative [facility] MILLENNIUM Blood specimen (specimen) 05/29/2011 12:38 PM EST 06/01/2011 7:15 AM EST Marilyn Reilly MD CHEMISTRY ORDERABL ES Performing Organization Address [facility] Phone Number [facility] MILLENNIUM * (ABNORMAL) [...] MD CHEMISTRY ORDERABL ES Performing Organization Address [facility] Co de Phone Number [facility] * Aspartate Aminotransferase (05/29/2011 12:38 PM EST) Aspartate Aminotransferase 17 0 - 30 unit/L [facility] Blood specimen (specimen) 05/29/2011 12:38 PM EST 05/29/2011 12:40 PM EST Marilyn Reilly MD CHEMISTRY ORDERABL ES Performing Organization Address [facility] Co de Phone Number [facility] [...] into estimated average glucose values. ??[facility] 2008:31(8):0512-0874. Blood specimen (specimen) 05/29/2011 12:38 PM EST 05/29/2011 12:40 PM EST Marilyn Reilly MD CHEMISTRY ORDERABL ES Performing Organization Address [facility] Phone Number [facility] * HIV (05/29/2011 12:38 PM EST) Pathologist [facility] HIV 1/2 Ab Negative [facility] Blood specimen (specimen) 05/29/2011 12:38 PM EST 05/29/2011 12:40 PM EST Marilyn Reilly MD CHEMISTRY ORDERABL ES Performing Organization Address [facility] Phone Number [facility] * GC/CHLAM (05/29/2011 11:45 AM EST) Pathologist [facility] GC Gene Amp Negative Negative [facility] [...] - GEN ERAL ORDERABLES Performing Organization Address [facility] Phone Number [facility] * Cytopathology Gynecological [...] uncontrolled documented in this encounter Care Teams Horticulture/Floriculture Teacher Relationship Specialty Start Date End Date Dav Carlos MD PCP - General 10/01/10 11/30/12 documented as of this encounter
--- OUTSIDE RECORDS SUMMARY | 2024-04-13 16:39 | XMS_ITS | Encounter Summary ---
Author Organization [facility] [place] [address] Care Team Providers Care Systems Admin Name Role Phone Unavailable Primary Care Provider Unavailabl e Encounter Details Date Type Department Care Team ([facility] st Contact Info) Description 03/03/2010 11:30 AM EST Follow-Up Obstetrics [place] [address] Alina Krishna MD [facility] DR OBSTETRICS [place] [address] Social History Tobacco Use Types Packs/Day Years [...]
--- OUTSIDE RECORDS SUMMARY | 2024-04-13 16:39 | XMS_ITS | Encounter Summary ---
Author Organization [facility] [place] [address] Care Team Providers Care Motion Study Analyst Name Role Phone Galina Hook MD Primary Care Provider [phone] Reason for Visit * Reason Comments Obstructive Sleep Apnea Encounter Details Date Type Department Care Team (Latest Contact Info) Description 12/17/2010 8:00 PM EDT Procedure visit Sleep Medicine [facility] [place] [address] Rudolph Bustamante MD CADY (obstructive sleep apnea) [...] Study Date: 12/17/2010 Sex: Female Subject Code: [id number] Date of : 1980 Referring Physician: Galina Hook M.D. Age: 30 Sleep Specialist: Rudolph Bustamante M.D. Height: 64.8 Techs: EG /Renetta Weight: 255.5 Project: CPAP B.M.I: 42.8 [...] (pediatric) documented in this encounter Care Teams Motion Study Analyst Relationship Specialty Start Date End Date Galina Hook MD PCP - General 10/01/10 11/30/12 documented as of this encounter
--- OUTSIDE RECORDS SUMMARY | 2024-04-13 16:39 | XMS_ITS | Encounter Summary ---
Author Organization [facility] [place] [address] Care Team Providers Care Php Wordpress Developer Name Role Phone Henri Gonzalez DO Primary Care Provider [phone] Encounter Details Date Type Department Care Team (Late st Contact Info) Description 03/03/2010 [place] [id number] Chaz Suarez MD [facility] [address] OBSTETRICS [place] [address] Social History Tobacco Use Types Packs/Day Years Used Date Smoking Tobacco: Never Assessed Sex and Gender Information Value Date Recorded Sex Assigned at Not on file Gender Identity Female 12/01/2018 2:55 PM EDT Sexual Orientation Not on file documented as of this encounter Plan of Treatment Not on file documented as of this encounter Procedures Procedure Name Priority Date/Time Associated Diagnosis Comments VIRTUAL ASSISTANT FOR ADVERTISERS CYTOLOGY FINAL REPORT Routine 03/03/2010 4:35 PM EST SURGICAL PATHOLOGY REPORT Routine 03/03/2010 4:11 PM EST documented in this encounter Results * PATHOLOGY VIRTUAL ASSISTANT FOR ADVERTISERS CYTOLOGY FINAL REPORT (03/03/2010 4:35 PM EST) Belly Roller Cytology Final Report ? [facility] ? Provider: ?? CHAZ SUAREZ ?Pt. Name: ?? MIGDALIA MOREIRA ? Acc #: ?[id number] ?Pt. ? Col Date: ?? 03/03/2010 ?/Sex: ?1980,(29 ? years),Female ? Rec Date: ?? 03/03/2010 ?LOC: ?5L ? CYTOPATHOLOGY: ??VIRTUAL ASSISTANT FOR ADVERTISERS ? ---Adequacy--- ? Specimen submitted is satisfactory. ? Endocervical component present. ? ---Cytopathologic Diagnosis--- ?NORMAL ? Negative for Intraepithelial Lesion or Malignancy (NILM). ? 03/05/10 ?? Screened by: ??SLA ? 03/05/10 ?? Verified by: ??ANGELES Camargo(ASCP), Della Urrutia - ? Neonatal Social Worker ? ---Clinical Information--- ? Specimen Source: [...] ??For further ? information please contact the [facility] Laboratory. ? Reference: ??Amanda BLACK. ??Crystal Inspector of Pap Smear Results. ??In: ? [place] BS, [facility], ed. ??The Pap Smear. ??[place]: ??Mendoza, 2002: ? 71-77. ANA GILMAN 03/03/2010 4:35 PM EST Chaz Suarez MD PATHOLOGY/CYTOLOGY O RDERABLES ANA GILMAN * PATHOLOGY SURGICAL PATHOLOGY FINAL REPORT (03/03/2010 4:11 PM EST) Surgical Pathology Report ? [facility] ? Provider: ?? CHZA SUAREZ ?Pt. Name: ?? MIGDALIA MOREIRA ? Acc #: ?[id number] ?Pt. ? Col Date: ?? 03/03/2010 ?/Sex: [...] on filedocumented in this encounter Care Teams Php Wordpress Developer Relationship Specialty Start Date End Date Henri Gonzalez DO [address] [place] [id number] PCP - General 03/11/10 09/30/10 documented as of this encounter
--- OUTSIDE RECORDS SUMMARY | 2024-04-13 16:39 | XMS_ITS | Encounter Summary ---
Author Organization [facility] [place] [address] Care Team Providers Care Fit Model Name Role Phone Dav Carlos MD Primary Care Provider [phone] Reason for Visit * Reason Comments Hypersomnia Encounter Details Date Type Department Care Team ([facility] Contact Info) Description 12/10/2010 8:00 PM EDT Procedure [place] [address] Marleen Taylor MD [facility] [place] [address] CADY (obstructive sleep apnea) (Primary Dx) Social [...] Study Date: 12/10/2010 Sex: Female Subject Code: [id number] Date of : 1980 Referring Physician: Dav [...] (pediatric) documented in this encounter Care Teams Fit Model Relationship Specialty Start Date End Date Dav Carlos MD PCP - General 10/01/10 11/30/12 documented as of this encounter
--- OUTSIDE RECORDS SUMMARY | 2024-04-13 16:39 | XMS_ITS | Encounter Summary ---
Author Organization [facility] [place] [address] Care Team Providers Care Right Of Way Worker Name Role Phone Henri Gonzalez DO Primary Care Provider [phone] Encounter Details Date Type Department Care Team (Late st Contact Info) Description 03/29/2010 2:38 AM EST - 03/29/2010 3:43 AM EST [place] [address] Sivakumar Hopson MD [facility] [place] [address] Discharge Disposition: Home Social History Tobacco Use [...] fluticasone (FLONASE) 50 mcg/Actuation nasal spray 2 [place](s), Nasal, Once daily 03/29/2010 12/01/2010 metFORMIN (GLUCOPHAGE) 500 mg tablet 500 MG = 1 Tablet(s), PO, Twice daily 03/17/2010 05/29/2011 omeprazole (PRILOSEC) 40 mg capsule 20 MG = 1 Capsule(s) PO Once daily 03/17/2010 09/29/2011 documented as of this encounter Plan of Treatment Not on file documented as of this encounter Visit Diagnoses Not on filedocumented in this encounter Care Teams Right Of Way Worker Relationship Specialty Start Date End Date Henri Gonzalez DO [address] [place] [address] PCP - General 03/11/10 09/30/10 documented as of this encounter
--- OUTSIDE RECORDS SUMMARY | 2024-04-13 16:39 | XMS_ITS | Encounter Summary ---
Author Organization [facility] [place] [address] Care Team Providers Care Cell Phone Repair Technician Name Role Phone Dav Carlos MD Primary Care Provider [phone] Reason for Visit * Reason Comments Routine Visit Encounter Details Date Type Department Care Team (Latest Contact Info) Description 05/14/2011 10:00 AM EST Initial Obstetrics [place] [address] Amina Mock MD [facility] [address] OBSTETRICS [place] [address] GA: [id number] Discharge Disposition: Home Social History [...] 05/29/2011 11:02 am) Patient Info ID: ? [id number] ? : ??[birth year] (31 yrs) Name: ? MIGDALIA MOREIRA ? Visit Date: 05/29/2011 10:56 am Performed By Performed By: ?Caryl Yepez RDMS Attending: ? Arik PENALOZA, E ??Valerie Referred By: ? AMINA MOCK MD Service(s) Provided UOBTV - Viability - Cervical Length - Transvaginal - ??[id number] Indications Viability, transvaginal Evaluation Num Of Fetuses: [...] Final 05/29/2011 11:02 am) Patient Info ID: [id number] : [birth year] (31 yrs) Name: MIGDALIA MOREIRA Visit Date: 05/29/2011 10:56 am Performed By Performed By: Caryl Yepez [facility] Attending: Lisette Elise MD Referred By: AMINA MOCK MD Service(s) Provided UOBTV - Viability - Cervical Length - Transvaginal - [id number] Indications Viability, transvaginal Evaluation Num Of Fetuses: [...] ? Ordered By: AMINA MOCK ? MR#: [id number] ?LOC: ??5L ? /Sex: ?? 8 (31 years), ? Female ? PROCEDURE: Urine Culture ?SOURCE: U CC ? COLLECTED: 05/14/2011 10:00 ? STARTED: 05/14/2011 16:49 ? FINAL REPORT ? Final Report ? Verified: 15:10 ? No growth (Less than 1,000 cfu/ml). ? ____ [facility] Urine specimen obtained by clean catch procedure (specimen) 05/14/2011 10:00 AM EST 05/14/2011 4:49 PM EST Amina Mock MD MICROBIOLOGY - GENER AL ORDERABLES [facility] documented in this encounter Visit Diagnoses Diagnosis High-risk supervision- Primary Unspecified high-risk Supervision of high-risk Unspecified high-risk Hypertension Unspecified essential hypertension Diabetes mellitus complicating , antepartum Diabetes mellitus, antepartum Obstructive sleep apnea Obstructive sleep apnea (adult) (pediatric) High-risk supervision Unspecified high-risk documented in this encounter Care Teams Cell Phone Repair Technician Relationship Specialty Start Date End Date Dav Carlos MD PCP - General 10/01/10 11/30/12 documented as of this encounter
--- OUTSIDE RECORDS SUMMARY | 2024-04-13 16:39 | XMS_ITS | Encounter Summary ---
Author Organization [facility] [place] [address] Care Team Providers Care Sales Support Advisor Name Role Phone Henri Gonzalez DO Primary Care Provider [phone] Encounter Details Date Type Department Care Team (Late st Contact Info) Description 03/17/2010 9:00 AM EST Office Visit Obstetrics [place] [address] Adelfo Mckeon MD Social History Tobacco Use Types Packs/Day [...] on filedocumented in this encounter Care Teams Sales Support Advisor Relationship Specialty Start Date End Date Henri Gonzalez DO [address] [place] [address] PCP - General 03/11/10 09/30/10 documented as of this encounter
--- OUTSIDE RECORDS SUMMARY | 2024-04-13 16:39 | XMS_ITS | Clinical Summary ---
Author Organization [facility] Address [address] [place] [address] Care Team Providers Care Tailor Apprentice Name Role Phone Trice Holman MAYELA Primary Care Provider [phone] Social History Tobacco Use Types Packs/Day Years [...] 3-dose series) 04/05 COVID-19 Vaccine ( season) 2023 Hepatitis C Screen Completed 09/11/2022 Procedures Procedure Name Priority Date/Time Associated Diagnosis Comments HEPATITIS C AB W REFLEX TO HCV RNA BY PCR Routine 09/11/2022 12:04 EDT from Last 3 Months or Most Recently Relevant to Health Maintenance Results * HEPATITIS C AB W REFLEX TO HCV RNA BY PCR (09/11/2022 12:04 EDT) Hep C Antibody Negative Negative 09/14/2022 10:09 EDT [facility] Blood VENOUS BLOOD / Unknown 09/11/2022 12:04 EDT 09/12/2022 21:24 EDT us Provider Outr Resulting Lab CHEMISTRY & BLOOD GA S ORDERABLES Final Result [facility] [address] [place] [address] from Last 3 Months or Most Recently Relevant to Health Maintenance Insurance MEDICAID [place] Care Teams Tailor Apprentice Relationship Specialty Start Date End Date Trice Holman [place] [address] [place] [address] PCP - General 01/17/23
--- OUTSIDE RECORDS SUMMARY | 2024-04-13 16:39 | XMS_ITS | Encounter Summary ---
Author Organization [facility] [place] [address] Care Team Providers Care Night Clerk Name Role Phone Dav Carlos MD Primary Care Provider [phone] Encounter Details Date Type Department Care Team (Latest Contact Info) Description 05/29/2011 10:30 AM EST - 05/29/2011 11:59 PM [facility] Encounter Ultrasound at [facility] [place] [address] High-risk supervision Social History Tobacco Use Types [...] 05/29/2011 11:02 am) Patient Info ID: ? [id number] ? : ??[birth year] (31 yrs) Name: ? MIGDALIA MOREIRA ? Visit Date: 05/29/2011 10:56 am Performed By Performed By: ?Caryl Yepez RDMS Attending: ? Arik PENALOZA, E ??Valerie Referred By: ? AMINA MOCK MD Service(s) Provided UOBTV - Viability - Cervical Length - Transvaginal - ??[id number] Indications Viability, transvaginal Evaluation Num Of Fetuses: [...] Final 05/29/2011 11:02 am) Patient Info ID: [id number] : [birth year] (31 yrs) Name: MIGDALIA MOREIRA Visit Date: 05/29/2011 10:56 am Performed By Performed By: Caryl Yepez [facility] Attending: Lisette Elise MD Referred By: AMINA MOCK MD Service(s) Provided UOBTV - Viability - Cervical Length - Transvaginal - [id number] Indications Viability, transvaginal Evaluation Num Of Fetuses: [...] high-risk documented in this encounter Care Teams Night Clerk Relationship Specialty Start Date End Date Dav Carlos MD PCP - General 10/01/10 11/30/12 documented as of this encounter
--- OUTSIDE RECORDS SUMMARY | 2024-04-13 16:39 | XMS_ITS | Encounter Summary ---
Author Organization [facility] Address [address] [place] [address] Care Team Providers Care Firebrick Layer Helper Name Role Phone Unavailable Primary Care Provider Unavailabl e Encounter Details Date Type Department Care Team (Late st Contact Info) Description 05/28/2005 Results Only [facility] [address] [place] [address] Neda Barger, [facility] [address] [place] [address] Social History Tobacco Use Types Packs/Day [...] cancers. [facility] Report Status Final [id number] [facility] 05/28/2005 11:5 8 EST 06/08/2005 9:07 EST Neda Barger INTERNAL INVESTIGATOR MICROBIOLOGY - GENERAL ORDER MARIJA Final Result [facility] [address] [place] [address] * CYTOPATHOLOGY (05/28/2005 0:00 EST) Pathology Report: CYTOPATHOLOGY REPORT Reports generated via electronic interface contain original data; however they are lacking the format of the original report. Caution should be taken when reading/interpreti ng unformatted reports. Name: ? MIGDALIA MONCADA ? Accession #: ? [id number] : ? 1980 (Age: 25) ??F ?Collect Date: ? 05/28/2005 Location: ? [facility] ? Receive Date: ? 05/29/2005 Provider: ?NEDA BARGER INTERNAL INVESTIGATOR Copy to: ? Specimen/Source: ?ThinPrep Pap Test, Cervix/Endocervix, processed on [employer] ThinPrep Imaging System, with manual evaluation Last Menstrual Period: ? 05/05/05 Other: ? HPVA - HPV testing requested if ASC-US on the current ThinPrep Pap test. ? SPECIMEN ADEQUACY ? Satisfactory for Evaluation - transformation zone component present GENERAL CATEGORIZATION ? Epithelial Cell Abnormality INTERPRETATION ? Squamous Cell Abnormality - Atypical squamous cells, undetermined significance. EDUCATIONAL NOTES/RECOMMENDATI ONS ? [facility] recommends following the 2001 Consensus Guidelines for the Management of Women with Cervical Cytological Abnormalities (PATRICA,2002;287:212 0-9). Management algorithms have been distributed by [facility] and are available online at www.ASCCP.org. ? Document reviewed and electronically signed by: ? MAIA OVALLE MD ? Report Date: ??06/06/2005 15:30 End of Report [facility] 05/28/2005 05/29/2005 us Neda Barger INTERNAL INVESTIGATOR PATHOLOGY ORDERABLES Final R esult [facility] [address] [place] [address] documented in this encounter Visit Diagnoses Not on filedocumented in this encounter
--- OUTSIDE RECORDS SUMMARY | 2024-04-13 16:39 | XMS_ITS | Referral Summary ---
Author Organization [facility] Address [address] [place] [address] Care Team Providers Care Beer Merchant Name Role Phone Trice Holman MAYELA Primary Care Provider [phone] Social History Tobacco Use Types Packs/Day Years [...] C Antibody Negative Negative 09/14/2022 10:09 EDT [facility] Blood VENOUS BLOOD / Unknown 09/11/2022 12:04 EDT 09/12/2022 21:24 EDT us Provider Outr Resulting Lab CHEMISTRY & BLOOD GA S ORDERABLES Final Result [facility] [address] [place] [address] from Last 3 Months or Most Recently Relevant to Health Maintenance Insurance MEDICAID [employer] Care Teams Beer Merchant Relationship Specialty Start Date End Date Trice Holman FNP [facility] [place] [address] [address] PCP - General 01/17/23
== END 2024-04-13 16:34 | disposition home or self-care (01) ==
LOC: NCHCN 16:33
PROVIDERS: PCP Nurse Practitioner Family; Visit Provider Nurse Practitioner Family
DX: Z01.818 Encounter for other preprocedural examination (principal); E11.9 Type 2 diabetes mellitus without complications
CPT/HCPCS: 80053; 85027; 83036

== ENCOUNTER 2024-04-25 09:05 | Outpatient (CLI) | payer MEDICAID, SELFPAY ==
[2024-04-25 08:29] LABS: Bilirubin Negative (Negative); Blood Negative (Negative); Clarity Clear (Clear); Glucose >=1000 mg/dL (Negative); Ketones Negative (Negative); Leukocyte Esterase Negative (Negative); Nitrite Negative (Negative); Specific Gravity 1.015 (1.005-1.025); Urobilinogen 0.2 mg/dL (Up to 0.2); pH 5.5 (5-8)
[2024-04-25 08:45] LABS: Bacteria Rare HPF (Negative); C & S Indicated? No; Casts Negative LPF (Negative); Crystals Negative HPF (Negative); Epithelial Cells Few HPF (Negative); Mucus Negative (Negative); Other Cells Moderate Yeast (Negative); RBC 0-2 HPF (0-2)
[2024-04-25 09:26] LABS: PTT Activated 24.8 sec (23.6-32.8); Prothrombin Time 9.9 sec (9.1-11.1)
== END 2024-04-25 09:06 | disposition home or self-care (01) ==
LOC: LBO 09:06
PROVIDERS: PCP Nurse Practitioner Family; Visit Provider Neurological Surgery
DX: Z01.818 Encounter for other preprocedural examination (principal)
CPT/HCPCS: 36415; 81003; 81015; 85610; 85730

== ENCOUNTER 2024-07-28 15:12 | Outpatient (REF) | payer MEDICAID, SELFPAY ==
[2024-07-28 15:22] LABS: COMMENT (LAB VIEW ONLY) 31.17 mg/dL; Microalb ug/mg Crea 11.9 ug/mg Cr
== END 2024-07-28 15:13 | disposition home or self-care (01) ==
LOC: NCHCN 15:12
PROVIDERS: PCP Nurse Practitioner Family; Visit Provider Nurse Practitioner Family
DX: E66.9 Obesity, unspecified (principal); Z68.36 Body mass index [BMI] 36.0-36.9, adult
CPT/HCPCS: 82043; 82570

== ENCOUNTER 2025-01-24 03:43 | Outpatient (CLI) | payer MEDICAID, SELFPAY ==
[2025-01-24 13:46] LABS: Ferritin 10 ng/mL (8-252); Vitamin B12 506 pg/mL (193-986); Vitamin D 25 Total 30 ng/mL (30-100)
== END 2025-01-24 03:44 | disposition home or self-care (01) ==
LOC: LBO 03:43
PROVIDERS: PCP Nurse Practitioner Family; Visit Provider Internal Medicine Sleep Medicine
DX: G25.81 Restless legs syndrome (principal); R53.83 Other fatigue
CPT/HCPCS: 36415; 82306; 82607; 82728

== ENCOUNTER → 2025-04-13 00:05 | Outpatient (CLI) | payer MEDICAID, SELFPAY ==
--- NOTE | 2025-04-13 | DI.MAMMO_ITS ---
Exam(s) MAMMO SCREENING EXAM: MAMMO SCREENING CLINICAL HISTORY: SCREENING, Z12.31. TECHNIQUE: Bilateral full field digital CC and MLO mammographic images were obtained with 3D tomosynthesis and utilizing computer aided detection (CAD). COMPARISON: Prior mammograms were reviewed. FINDINGS: There are no new right breast findings. In the left breast on the MLO view there is a new asymmetric nodular density measuring 5 x 3 mm located 6.5 cm in from the nipple on the MLO view. Further imaging recommended. There are no malignant-appearing microcalcification groups is region or elsewhere in either breast There is no significant architectural distortion nor skin thickening-retraction. IMPRESSION: 1. No radiographic evidence of malignancy in the right breast. 2. There is a 5 x 3 mm nodular density in the left breast as described above. Spot compression view and breast ultrasound recommended. BI-RADS Category 0 - Incomplete: Need additional imaging evaluation Breast Density - Category C - The breast are heterogeneously dense, which may obscure small masses. Breast density Category C or D implies that the patient has dense breast tissue. Dense breast tissue can make it harder to find cancer on a mammogram. Dense breast tissue is also associated with an increased risk of breast cancer. This information about the result of the mammogram report was provided to the patient to raise their awareness. Use this report when you speak with the patient about their risks for breast cancer, which includes their family history. At that time, you may recommend additional screening tests (Ultrasound or MRI) as these tests may add significant information. A negative radiographic report should not delay biopsy if a dominant or clinically suspicious mass is present. Up to ten percent of cancers are not identified on mammography. A negative report may reinforce clinical impression. Adenosis and dense breasts may obscure an underlying neoplasm. False positive reports average 6 to 10%. Patient will receive a letter notifying them of these results.
== END ==
LOC: DI 00:05
DX: Z12.31 Encounter for screening mammogram for malignant neoplasm of breast (principal)
CPT/HCPCS: 77063; 77067